=== PATIENT | male | born 1935 | race Hispanic/Latino ===

== ENCOUNTER 2018-01-22 09:47 | Inpatient (IN) | payer MEDICARE ==
--- NOTE | 2018-01-22 10:07 | ED PDOC ---
Arrival/HPI - General Chief Complaint: ENT Problem Time Seen by Provider: 01/22/18 10:05 Historian: Patient - History of Present Illness Narrative History of Present Illness (Text): 01/22/18 10:07 82 y/o male, pmh including distal abdominal aneuysm/htn/chf?/a.fibb on cardizem , only taking aspirin and no other anticoagulant, nkda, c/o chicken stuck on the middle of the throat x 20 hours. Pt. stated that he had solid piece of chicken yesterday, feeling stuck on the throat, hasn't been eating since because it will come back up, was feeling nauseous but no vomiting, no flank pain, no rash, no urinary symptoms, no palpitation, no chest pain or shortness of breath, no shortness of breath on exertion, no other medical or psychological complaints. Past Medical History - Provider Review Nursing Documentation Reviewed: Yes - Infectious Disease Hx of Infectious Diseases: None - Tetanus Immunization Tetanus Immunization: Up to Date - Cardiac Hx Cardiac Arrhythmia: Yes (23yrs ago) Hx CT: Yes Hx Hypertension: Yes - Neurological Hx Seizures: Yes (epilepsy) - Psychiatric Hx Depression: No Hx Emotional Abuse: No Hx Physical Abuse: No Hx Substance Use: No - Surgical History Hx Appendectomy: Yes - Anesthesia Hx Anesthesia Reactions: No Hx Malignant Hyperthermia: No - Suicidal Assessment Feels Threatened In Home Enviroment: No Family/Social History - Physician Review Nursing Documentation Reviewed: Yes Family/Social History: Unknown Family HX Smoking Status: Never Smoked Hx Alcohol Use: No Hx Substance Use: No Hx Substance Use Treatment: No Allergies/Home Meds Allergies/Adverse Reactions: Allergies No Known Allergies Allergy (Verified 11/12/13 11:17) Home Medications: Home Meds Medication Instructions Recorded Confirmed Aspirin [Aspir 81] 81 mg PO DAILY 11/12/13 11/12/13 Diltiazem Hydrochloride [Cardizem 360 mg PO DAILY 11/12/13 11/12/13 Cd] Metoprolol Succinate [Toprol XL] 25 mg PO BID 11/12/13 11/12/13 Phenytoin Sodium Extended 100 mg PO TID 11/12/13 11/12/13 [Dilantin] Review of Systems - Review of Systems Constitutional: absent: Fatigue, Fevers Eyes: absent: Vision Changes ENT: Other (throat discomfort). absent: Hearing Changes Respiratory: absent: SOB, Cough Cardiovascular: absent: Chest Pain Gastrointestinal: absent: Abdominal Pain, Nausea, Vomiting Skin: absent: Rash, Pruritis Neurological: absent: Headache Psychiatric: absent: Anxiety, Depression Physical Exam Vital Signs Reviewed: Yes Vital Signs Temp Pulse Resp BP Pulse Ox 01/22/18 09:48 98.4 F 104 H 16 116/69 95 Temperature: Afebrile Blood Pressure: Normal Pulse: Tachycardic Respiratory Rate: Normal Appearance: Positive for: Well-Appearing, Non-Toxic, Comfortable Pain Distress: None Mental Status: Positive for: Alert and Oriented X 3 - Systems Exam Head: Present: Atraumatic, Normocephalic Pupils: Present: PERRL Extroacular Muscles: Present: EOMI Conjunctiva: Present: Normal Mouth: Present: Moist Mucous Membranes Pharnyx: No: ERYTHEMA, EXUDATE, TONSILS ENLARGED, Muffled/Hoarse Voice, Soft Palate/Uvular Edema Neck: Present: Normal Range of Motion, Trachea Midline. No: MIDLINE TENDERNESS , Paraspinal Tenderness, Lymphadenopathy Respiratory/Chest: Present: Clear to Auscultation, Good Air Exchange. No: Respiratory Distress, Accessory Muscle Use Cardiovascular: Present: Regular Rate and Rhythm, Normal S1, S2. No: Murmurs Abdomen: No: Tenderness, Distention, Peritoneal Signs, Rebound, Guarding Back: Present: Normal Inspection Upper Extremity: Present: Normal Inspection. No: Cyanosis, Edema Lower Extremity: Present: Normal Inspection. No: Edema Neurological: Present: GCS=15, Speech Normal, Motor Func Grossly Intact, Gait Normal, Memory Normal Skin: Present: Warm, Dry, Normal Color. No: Rashes Psychiatric: Present: Alert, Oriented x 3, Normal Insight, Normal Concentration Medical Decision Making ED Course and Treatment: 01/22/18 10:22 -labs/coag -CT neck and chest pain -IVF/pepcid/zofran -Observe and reassess 01/22/18 11:14 -I received the call from Dr. Somers regarding about approx. big bolus noted on the lower esophogeal region, GI DR. Hinton paged for endoscopy. 01/22/18 11:33 -Labs are non-significant except BNP 7570 (asymptomatic) and BUN 25 (drinking fluid), Chronic thrombocytopenia 63 -CT Neck/Chest: There is a large food particle in the lower cervical esophagus. This measures 21 mm with by 16 mm AP x 49 mm in length. -EKG: A.fibb @ 100 BPM, no acute ST elevation or depression, no T wave inversion. -Pt. has no cardiopulmonary complaints, no shortness of breath, offer admission for the cardiac work up and observation after the procedure but the patient refused, discussed with Dr. Ching about the case and pt.'s decision. As per the patient and Dr. Ching, pt. will be admitted to the same day surgery and outpatient academic interventionist and pmd dr. fleming today for follow up today after the procedure. -I spoke to Dr. Hinton, GI, about this case/labs/radiology result, will come to evaluate the patient stat for endoscopy. 01/22/18 12:12 -Pt. evaluated by the GI Dr. Hinton's REGULATORY COMPLIANCE MANAGER Zully Phan, came to evaluate the patient and discussed with Dr. Hinton, they will order platete transfusion and perform endoscopy, admit to the endo/same day surgery. I offered the admission again for observation but he refused, risk and benefits explained, he stated that he has no cardiopulmonary complaints and only here for the food bolus which he still declined. Pt. will get discharge from the endo/same day surgery. -I discussed with Dr. Ching about the plan of care and he will put in the admission for same day surgery for endoscopy and agreed the patient can make his own choice - Lab Interpretations Lab Results: 01/22/18 10:30 01/22/18 10:30 Lab Results 01/22/18 12:00: Manual Plt Count 75 L* 01/22/18 10:30: WBC 6.8 D, RBC 3.51, Hgb 11.2 L, Hct 32.8 L, MCV 93.4, MCH 31.9 , MCHC 34.1, RDW 15.2 H, Plt Count 63 L, MPV 8.3, Gran % 82.6 H, Lymph % (Auto) 8.5 L, [place] % (Auto) 8.8 H, Eos % (Auto) 0.0 L, Baso % (Auto) 0.1, Gran # 5.65, Lymph # (Auto) 0.6 L, [place] # (Auto) 0.6, Eos # (Auto) 0.0, Baso # (Auto) 0.01 01/22/18 10:30: Sodium 148, Potassium 4.1, Chloride 108 H, Carbon Dioxide 27, Anion Gap 18, BUN 25 H, Creatinine 1.3, Est GFR ( Amer) > 60, Est GFR ( Non-Af Amer) 53, Random Glucose 128 H, Calcium 9.5, Total Bilirubin 0.5, AST 36 , ALT 31, Alkaline Phosphatase 83, NT-Pro-B Natriuret Pep 7570 H, Total Protein 6.7, Albumin 4.1, Globulin 2.5, Albumin/Globulin Ratio 1.6 01/22/18 10:30: PT 12.3, INR 1.07, APTT 27.0 I have reviewed the lab results: Yes - RAD Interpretation Radiology Orders: 01/22/18 10:14 NECK & CHEST W/O CONTRAST [CT] Stat CT OF THE NECK: PHARYNX: Nasopharynx: Unremarkable. Oropharnx: Unremarkable. Hypopharynx: There is a large food particle in the lower cervical esophagus. This measures 21 mm width by 16 mm AP x 49 mm in length. The finding can be seen on sagittal image 84 series 605 and axial image 54 series 3. LYMPH NODES: Unremarkable. VASCULATURE: Unremarkable. GLANDS: Unremarkable. CERVICAL SPINE: Unremarkable. CT OF THE CHEST: LUNGS: Chronic emphysematous changes MEDIASTINUM: Unremarkable thoracic aorta. No aneurysm or dissection. Moderate cardiomegaly Pulmonary arterial truck unremarkable. No vascular congestion. No lymphadenopathy. PLEURA: No pleural fluid. No pneumothorax. BONES: No fracture. No destructive lesion. IMPRESSION: There is a large food particle in the lower cervical esophagus. This measures 21 mm with by 16 mm AP x 49 mm in length. Farm Tractor Operator: Radiologist - EKG Interpretation Interpreted by ED Physician: Yes Type: 12 lead EKG - Medication Orders Current Medication Orders: Discontinued Medications Famotidine (Pepcid) 20 mg IVP STAT STA Stop: 01/22/18 10:16 Last Admin: 01/22/18 10:31 Dose: 20 mg IVP Administration Document 01/22/18 10:31 SRE (Rec: 01/22/18 10:31 SRE [id number]) Charges for Administration # of IVP Administrations 1 Glucagon (Glucagen Diagnostic Kit) 1 mg IV STAT STA Stop: 01/22/18 11:16 Last Admin: 01/22/18 11:40 Dose: 1 mg eMAR Start Stop Document 01/22/18 11:40 SRE (Rec: 01/22/18 11:41 SRE [id number]) Intravenous Solution Start Date 01/22/18 Start Time 11:41 End Date 01/22/18 End time 11:44 Total Infusion Time 3 Ondansetron HCl (Zofran Inj) 4 mg IVP STAT STA Stop: 01/22/18 10:16 Last Admin: 01/22/18 10:31 Dose: 4 mg IVP Administration Document 01/22/18 10:31 SRE (Rec: 01/22/18 10:31 SRE [id number]) Charges for Administration # of IVP Administrations 1 - PA / REGULATORY COMPLIANCE MANAGER / Resident Statement MD/DO has reviewed & agrees with the documentation as recorded. Disposition/Present on Arrival - Present on Arrival Any Indicators Present on Arrival: No History of DVT/PE: No History of Uncontrolled Diabetes: No Urinary Catheter: No History of Decub. Ulcer: No History Surgical Site Infection Following: None - Disposition Have Diagnosis and Disposition been Completed?: Yes Diagnosis: Dysphagia, Elevated brain natriuretic peptide (BNP) level, Thrombocytopenia Disposition: HOSPITALIZED Disposition Time: 11:05 Patient Plan: Admission (Same Day Surgery) Patient Problems: Current Active Problems Problem Status Onset Dysphagia Acute Elevated brain natriuretic peptide (BNP) level Acute Thrombocytopenia Acute Condition: STABLE Referrals: Tri Fleming MD [Primary Care Provider] - Follow up with primary Lesia Ledezma MD [Staff Provider] - Follow up with primary Bill Escobedo MD [Staff Provider] - Follow up with primary Forms: [employer] (Citizen Of [place])
[2018-01-22 10:41] LABS: BASO # 0.01 K/mm3 (0.0-2.0); BASO % 0.1 % (0.0-3.0); GRAN # 5.65 (1.4-6.5); GRAN % 82.6 % (50.0-68.0); HEMOGLOBIN 11.2 g/dL (14.0-18.0); LYMPH # 0.6 (1.2-3.4); LYMPH % 8.5 % (22.0-35.0); MEAN CELL VOLUME 93.4 fl (80.0-105.0); MEAN CORPUSCULAR HEMOGLOBIN 31.9 pg (25.0-35.0); MEAN CORPUSCULAR HGB CONC 34.1 g/dl (31.0-37.0); MEAN PLATELET VOLUME 8.3 fl (7.0-11.0); MONO # 0.6 (0.1-0.6); MONO % 8.8 % (1.0-6.0); RBC 3.51 10^6/uL (3.5-6.1); RED CELL DISTRIBUTION WIDTH 15.2 % (11.5-14.5); WHITE BLOOD COUNT 6.8 10^3/ul (4.5-11.0)
[2018-01-22 10:51] LABS: ALB/GLOB RATIO 1.6 (1.1-1.8); ALBUMIN 4.1 g/dL (3.0-4.8); ALT/SGPT 31 U/L (7-56); AST/SGOT 36 U/L (17-59); BLOOD UREA NITROGEN 25 mg/dL (7-21); CALCIUM 9.5 mg/dL (8.4-10.5); GFR AFRICAN-AMERICAN > 60; GFR NON-AFRICAN AMERICAN 53
[2018-01-22 10:54] LABS: INR 1.07 (0.93-1.08); PROTHROMBIN TIME 12.3 SECONDS (9.4-12.5)
[2018-01-22 10:59] LABS: B-TYPE NATRIURETIC PEPTIDE 7570 pg/mL (0-450)
[2018-01-22] MEDS ORDERED: Glucagon Recombinant 1 mg Inj IV STA (11:15)
--- NOTE | 2018-01-22 11:17 | CT ---
PROCEDURE: CT Neck, Chest, without contrast HISTORY: chicken stuck on the throat COMPARISON: None. TECHNIQUE: Contrast dose: Radiation dose: Total exam DLP = 435 mGy-cm. This CT exam was performed using one or more of the following dose reduction techniques: Automated exposure control, adjustment of the mA and/or kV according to patient size, and/or use of iterative reconstruction technique. FINDINGS: CT OF THE NECK: PHARYNX: Nasopharynx: Unremarkable. Oropharnx: Unremarkable. Hypopharynx: There is a large food particle in the lower cervical esophagus. This measures 21 mm width by 16 mm AP x 49 mm in length. The finding can be seen on sagittal image 84 series 605 and axial image 54 series 3. LYMPH NODES: Unremarkable. VASCULATURE: Unremarkable. GLANDS: Unremarkable. CERVICAL SPINE: Unremarkable. CT OF THE CHEST: LUNGS: Chronic emphysematous changes MEDIASTINUM: Unremarkable thoracic aorta. No aneurysm or dissection. Moderate cardiomegaly Pulmonary arterial truck unremarkable. No vascular congestion. No lymphadenopathy. PLEURA: No pleural fluid. No pneumothorax. BONES: No fracture. No destructive lesion. IMPRESSION: There is a large food particle in the lower cervical esophagus. This measures 21 mm with by 16 mm AP x 49 mm in length.
--- NOTE | 2018-01-22 13:48 | CP.PCM.CON ---
History of Present Illness - History of Present Illness History of Present Illness: Seen and examined in the emergency room, chart reviewed. Request for GI consult is for foreign body. HPI: This is an 82-year-old male with a past medical history of rectal cancer with colostomy, hypertension, abdominal aortic aneurysm came to the emergency room with complaints of consuming chicken yesterday at 2 PMand this being stuck in his throat. He attempted to extract this with his finger with no resolve. He is unable to tolerate any oral intake, he brings up sputum. No blood noted, he is holding an emesis basin with clear sputum. He denies any shortness of breath, chest pains or abdominal pain. He did report that he had a similar problem last year with a piece of meat which eventually went down. he denies any history of esophageal strictures . Never had upper endoscopy. no complaints of dyspepsia, weight loss or loss of appetite. On admission he had a CT scan of the necks and chest and he was found to have large food particle in the lower cervical esophagus measuring 21 mm width by 16 mm. In the lungs he is noted to have chronic emphysematous changes. Patient is noted to have low platelet count, patient endorses that this is chronic he has been evaluated by cosmetic manager in the past, patient concludes this to be secondary to his seizure medications Dilantin. No complaints of any bloody stools, he has a colostomy with brown stool output. He also had an EKG in the emergency room which is showing atrial fibrillation, the patient knows he has a cardiac arrhythmia and is on Cardizem and Toprol. Denies use of Coumadin only aspirin 81 mg which he took yesterday. He has not had anything to eat or drink since his complaint. Past medical history: Rectal cancer, abdominal aneurysm, hypertension, seizures Surgical history: Colostomy, denies having colonoscopy only flex sigmoidoscopy years ago, appendectomy Allergies: No known drug allergies Medications: Reviewed as per MAR Family history: Noncontributory at this time Social history: Denies smoking, EtOH or illicit drugs ROS: Systems reviewed with positive finding see HPI Past Patient History - Infectious Disease Hx of Infectious Diseases: None - Tetanus Immunizations Tetanus Immunization: Up to Date - Past Social History Smoking Status: Never Smoked - CARDIAC Hx Cardia Arrhythmia: Yes (23yrs ago) Hx Heart Attack: Yes Hx Hypertension: Yes - NEUROLOGICAL Hx Seizures: Yes (epilepsy) - PSYCHIATRIC Hx Depression: No Hx Emotional Abuse: No Hx Physical Abuse: No Hx Substance Use: No - SURGICAL HISTORY Hx Appendectomy: Yes - ANESTHESIA Hx Anesthesia Reactions: No Hx Malignant Hyperthermia: No Meds Allergies/Adverse Reactions: Allergies Allergy/AdvReac Type Severity Reaction Status Date / Time No Known Allergies Allergy Verified 11/12/13 11:17 Physical Exam - Constitutional Appears: No Acute Distress - Head Exam Head Exam: absent: NORMOCEPHALIC - Eye Exam Eye Exam: Normal appearance. absent: Scleral icterus - ENT Exam ENT Exam: Mucous Membranes Moist - Neck Exam Neck exam: Positive for: Normal Inspection - Respiratory Exam Respiratory Exam: Decreased Breath Sounds, Rhonchi, NORMAL BREATHING PATTERN. absent: Wheezes, Respiratory Distress - Cardiovascular Exam Cardiovascular Exam: +S1, +S2 - GI/Abdominal Exam GI & Abdominal Exam: Normal Bowel Sounds, Soft. absent: Distended, Guarding, Rebound, Tenderness Additional comments: positive colostomy, no blood noted - Extremities Exam Extremities exam: Negative for: calf tenderness, pedal edema - Neurological Exam Neurological exam: Alert, Oriented x3 - Skin Skin Exam: Dry, Warm Results - Vital Signs Recent Vital Signs: Last Vital Signs Temp 98.4 F 01/22/18 09:48 Pulse 104 H 01/22/18 09:48 Resp 16 01/22/18 09:48 BP 116/69 01/22/18 09:48 Pulse Ox 95 01/22/18 09:48 - Labs Result Diagrams: 01/22/18 10:30 01/22/18 10:30 Labs: Laboratory Results - last 24 hr 01/22/18 01/22/18 01/22/18 10:30 10:30 10:30 WBC 6.8 D RBC 3.51 Hgb 11.2 L Hct 32.8 L MCV 93.4 MCH 31.9 MCHC 34.1 RDW 15.2 H Plt Count 63 L MPV 8.3 Gran % 82.6 H Lymph % (Auto) 8.5 L [place] % (Auto) 8.8 H Eos % (Auto) 0.0 L Baso % (Auto) 0.1 Gran # 5.65 Lymph # (Auto) 0.6 L [place] # (Auto) 0.6 Eos # (Auto) 0.0 Baso # (Auto) 0.01 PT 12.3 INR 1.07 APTT 27.0 Sodium 148 Potassium 4.1 Chloride 108 H Carbon Dioxide 27 Anion Gap 18 BUN 25 H Creatinine 1.3 Est GFR ( Amer) > 60 Est GFR (Non-Af Amer) 53 Random Glucose 128 H Calcium 9.5 Total Bilirubin 0.5 AST 36 ALT 31 Alkaline Phosphatase 83 NT-Pro-B Natriuret Pep 7570 H Total Protein 6.7 Albumin 4.1 Globulin 2.5 Albumin/Globulin Ratio 1.6 Assessment & Plan - Assessment and Plan (Free Text) Assessment: Assessment: Foreign body, rule out esophageal stricture, dysmotility Thrombocytopenia Elevated BNP H/O Atrial fibrillation, on Toprol/Cardizem History of hypertension History of abdominal aneurysm History of rectal cancer with colostomy Plan: Nothing by mouth, continue IV fluids Request for stat manual platelet count Requests that type and screen for transfusion of 1 unit of platelets CARLITOS Plan for endoscopy today Discussed case/plan with JOSE Garcia in the ER. Patient refuse observation admission. Thank you for this consult and for last participate in your patient's care, further recommendations based upon clinical course. Seen and discussed with Dr. Hinton.
[2018-01-22] MEDS ORDERED: Propofol 10 mg/ml Inj (20 ML) ONE ×2 (18:26→20:25)
[2018-01-22] MEDS ORDERED: Etomidate 20 mg/10ml Inj IV ONE (18:27)
[2018-01-22] MEDS ORDERED: Succinylcholine 200 mg/10 ml Inj IV ONE (18:27)
[2018-01-22] MEDS: Propofol 10 mg/ml 1,000 MG/100 ML VIAL IV PRN (20:35)
--- NOTE | 2018-01-22 21:04 | CP.PCM.CON ---
<Taryn Vásquez - Last Filed: 01/22/18 23:54> History of Present Illness - History of Present Illness History of Present Illness: PGY-2 ICU consult note 82 yo male with a past medical history of rectal cancer with colostomy, hypertension, abdominal aortic aneurysm presented with complaints of chicken stuck on the middle of the throat. Patient was sedated at time of evaluation, history taken for previous notes. Patient stated that he was consuming chicken yesterday afternoon and felt that is was stuck in his throat. He attempted to extract this with his finger with no resolve. He is unable to tolerate any oral intake, he brings up sputum. No blood noted, he is holding an emesis basin with clear sputum. He reported a similar problem last year with a piece of meat which eventually resolved when the piece went down. Patient denied previous upper endoscopy. On admission he had a CT scan of the necks and chest and he was found to have large food particle in the lower cervical esophagus measuring 21 mm width by 16 mm. In the lungs he is noted to have chronic emphysematous changes. Patient was also noted to have low platelet count, patient endorsed that this is chronic he has been evaluated by metal roaster in the past, patient concludes this to be secondary to his seizure medications Dilantin. EKG in the emergency room showed atrial fibrillation, patient is on Cardizem and Toprol. 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 Patient was also found to have laryngeal edema and was not extubated. PMH: Rectal cancer, abdominal aneurysm, hypertension, seizures PSH: Colostomy, denies having colonoscopy only flex sigmoidoscopy years ago, appendectomy Allergies: No known drug allergies Medications: Reviewed as per MAR Social history: Denies smoking, alcohol use or illicit drugs Review of Systems - Review of Systems Systems not reviewed;Unavailable: Intubated Past Patient History - Infectious Disease Hx of Infectious Diseases: None - Tetanus Immunizations Tetanus Immunization: Up to Date - Past Social History Smoking Status: Never Smoked - CARDIAC Hx Cardia Arrhythmia: Yes (23yrs ago) Hx Heart Attack: Yes Hx Hypertension: Yes - NEUROLOGICAL Hx Seizures: Yes (epilepsy) - PSYCHIATRIC Hx Depression: No Hx Emotional Abuse: No Hx Physical Abuse: No Hx Substance Use: No - SURGICAL HISTORY Hx Appendectomy: Yes - ANESTHESIA Hx Anesthesia Reactions: No Hx Malignant Hyperthermia: No Meds Allergies/Adverse Reactions: Allergies Allergy/AdvReac Type Severity Reaction Status Date / Time No Known Allergies Allergy Verified 11/12/13 11:17 - Medications Medications: Current Medications Albuterol/Ipratropium (Duoneb 3 Mg/0.5 Mg (3 Ml) Ud) 3 ml IH [id number] KD Dexamethasone (Decadron Inj) 4 mg IVP Q6 KD Propofol (Diprivan) 1,000 mg in 100 mls @ 2.136 mls/hr IV .Q24H PRN; Protocol; 5 MCG/KG/MIN PRN Reason: TITRATE PER MD ORDER Physical Exam - Constitutional Appears: No Acute Distress - Head Exam Head Exam: ATRAUMATIC, NORMOCEPHALIC - Eye Exam Eye Exam: Normal appearance - ENT Exam Additional comments: intubated - Respiratory Exam Respiratory Exam: Clear to Auscultation Bilateral, NORMAL BREATHING PATTERN. absent: Rhonchi, Wheezes, Respiratory Distress - Cardiovascular Exam Cardiovascular Exam: REGULAR RHYTHM, +S1, +S2. absent: Tachycardia, Systolic Murmur - GI/Abdominal Exam GI & Abdominal Exam: Normal Bowel Sounds, Soft. absent: Distended, Firm, Tenderness Additional comments: h/o colostomy - Extremities Exam Extremities exam: Positive for: normal inspection. Negative for: pedal edema - Neurological Exam Neurological exam: Alert, Oriented x3 - Skin Skin Exam: Dry, Intact, Normal Color, Warm Results - Vital Signs Recent Vital Signs: Last Vital Signs Temp 98.4 F 01/22/18 09:48 Pulse 104 H 01/22/18 15:18 Resp 16 01/22/18 15:18 BP 137/76 01/22/18 15:18 Pulse Ox 94 L 01/22/18 15:18 - Labs Result Diagrams: 01/22/18 21:32 01/22/18 21:32 Assessment & Plan - Assessment and Plan (Free Text) Assessment: 82 yo male with a past medical history of rectal cancer with colostomy, hypertension, abdominal aortic aneurysm presented with foreign body in esophagus and zenker's diverticlum with laryngal edema. Plan: neuro -patient is sedated with propfol due to intubation - will hold off on breathing trials until ENT evaluation patient - history of seizures, well control - will hold PO meds ENT - laryngeal edema - patient is intubated for airway protection - started on decadron 4mg q6 - ENT consulted cardiology -hx hypertension, abdominal aortic aneurysm -maintain MAP>65 -continue to monitor BP - will hold po meds Respiratory - intubated on PRVC - maintain sao2>90% - will get ABG - elevated HOB GI - egd showed zenker's diverticulum with foreign body, food was removed - consult ENT - protonix for GI ppx - GI consulted heme/onc - thrombocytopenia, per patient history of low platelets - 1 unit platelets given - will repeat labs in AM <Wilian Gonzalez Q - Last Filed: 01/24/18 02:16> Meds - Medications Medications: Current Medications Albuterol/Ipratropium (Duoneb 3 Mg/0.5 Mg (3 Ml) Ud) 3 ml IH [id number] [facility] Last Admin: 01/23/18 20:30 Dose: Not Given Dexamethasone (Decadron Inj) 4 mg IVP Q6 [facility] Last Admin: 01/24/18 00:01 Dose: 4 mg Propofol (Diprivan) 1,000 mg in 100 mls @ 2.136 mls/hr IV .Q24H PRN; Protocol; 5 MCG/KG/MIN PRN Reason: TITRATE PER MD ORDER Last Titration: 01/23/18 14:58 Dose: Infused Sodium Chloride (Sodium Chloride 0.9%) 1,000 mls @ 100 mls/hr IV .Q10H [facility] Last Admin: 01/23/18 21:41 Dose: 100 mls/hr Pantoprazole Sodium (Protonix Inj) 40 mg IVP DAILY [facility] Last Admin: 01/23/18 09:09 Dose: 40 mg Results - Vital Signs Recent Vital Signs: Last Vital Signs Temp 99.3 F 01/24/18 00:00 Pulse 98 H 01/24/18 01:05 Resp 28 H 01/24/18 01:05 BP 123/78 01/24/18 01:00 Pulse Ox 94 L 01/24/18 01:05 - Labs Result Diagrams: 01/23/18 05:30 01/23/18 05:30 Labs: Laboratory Results - last 24 hr 01/23/18 01/23/18 01/23/18 05:30 05:30 06:00 WBC 3.1 L RBC 3.00 L Hgb 9.4 L Hct 28.5 L MCV 95.0 MCH 31.3 MCHC 33.0 RDW 15.1 H Plt Count 75 L MPV 8.7 Gran % 82.4 H Lymph % (Auto) 10.4 L [place] % (Auto) 7.2 H Eos % (Auto) 0.0 L Baso % (Auto) 0.0 Gran # 2.53 Lymph # (Auto) 0.3 L [place] # (Auto) 0.2 Eos # (Auto) 0.0 Baso # (Auto) 0.00 pCO2 47 H pO2 144.0 H HCO3 25.4 ABG pH 7.34 L ABG Total CO2 26.8 ABG O2 Saturation 99.5 H ABG O2 Content 15.3 ABG Base Excess -0.7 ABG Hemoglobin 11.1 L ABG Carboxyhemoglobin 2.0 H POC ABG HHb (Measured) 0.5 ABG Methemoglobin 1.0 ABG O2 Capacity 15.4 L Hgb O2 Saturation 96.5 FiO2 40.0 Sodium 147 Potassium 4.2 Chloride 111 H Carbon Dioxide 25 Anion Gap 16 BUN 25 H Creatinine 1.1 Est GFR ( Amer) > 60 Est GFR (Non-Af Amer) > 60 Random Glucose 115 H Calcium 8.4 Total Bilirubin 0.3 AST 38 ALT 26 Alkaline Phosphatase 66 Total Protein 5.4 L Albumin 3.4 Globulin 2.1 Albumin/Globulin Ratio 1.6 Attending/Attestation - Attestation I have personally seen and examined this patient.: Yes I have fully participated in the care of the patient.: Yes I have reviewed all pertinent clinical information: Yes Notes (Text): 01/24/18 02:16 I agree with the above mentioned note and exam case discussed in depth with Dr. Berman (anesthesiologist) labs and images reviewed total time of care: 40 minutes
[2018-01-22 21:35] LABS: BASO # 0.01 K/mm3 (0.0-2.0); BASO % 0.3 % (0.0-3.0); EOS % 0.9 % (1.5-5.0); GRAN # 2.68 (1.4-6.5); GRAN % 79.5 % (50.0-68.0); HEMOGLOBIN 9.3 g/dL (14.0-18.0); LYMPH # 0.4 (1.2-3.4); LYMPH % 12.5 % (22.0-35.0); MEAN CELL VOLUME 95.2 fl (80.0-105.0); MEAN CORPUSCULAR HGB CONC 33.6 g/dl (31.0-37.0); MEAN PLATELET VOLUME 8.7 fl (7.0-11.0); MONO # 0.2 (0.1-0.6); MONO % 6.8 % (1.0-6.0); RBC 2.91 10^6/uL (3.5-6.1); RED CELL DISTRIBUTION WIDTH 15.4 % (11.5-14.5); WHITE BLOOD COUNT 3.4 10^3/ul (4.5-11.0)
[2018-01-22 21:56] LABS: ALB/GLOB RATIO 1.4 (1.1-1.8); ALBUMIN 3.2 g/dL (3.0-4.8); ALT/SGPT 28 U/L (7-56); AST/SGOT 34 U/L (17-59); BLOOD UREA NITROGEN 26 mg/dL (7-21); GFR AFRICAN-AMERICAN > 60; GFR NON-AFRICAN AMERICAN 53
[2018-01-22 23:36] VITALS: BMI 23.6
[2018-01-23] MEDS: Albuterol-Ipratrop 3 mg / 0.5 (3 ml) UD IH SCH ×5 (00:10→20:30)
[2018-01-23 00:24] LABS: ARTERIAL BLOOD GAS O2 SAT 99.3 % (95-98); ARTERIAL BLOOD GAS PCO2 43 mm/Hg (35-45); ARTERIAL BLOOD GAS PH 7.39 (7.35-7.45); ARTERIAL BLOOD GAS TCO2 27.3 mmol.L (22-28)
[2018-01-23] MEDS: Dexamethasone 4 mg/1 ml IVP SCH ×4 (00:40→17:06)
[2018-01-23] MEDS: Sodium Chloride 0.9% 1,000 ML IV SCH ×3 (02:00→21:41)
[2018-01-23 06:11] LABS: GRAN # 2.53 (1.4-6.5); GRAN % 82.4 % (50.0-68.0); HEMOGLOBIN 9.4 g/dL (14.0-18.0); LYMPH # 0.3 (1.2-3.4); LYMPH % 10.4 % (22.0-35.0); MEAN CORPUSCULAR HEMOGLOBIN 31.3 pg (25.0-35.0); MEAN PLATELET VOLUME 8.7 fl (7.0-11.0); MONO # 0.2 (0.1-0.6); MONO % 7.2 % (1.0-6.0); RED CELL DISTRIBUTION WIDTH 15.1 % (11.5-14.5); WHITE BLOOD COUNT 3.1 10^3/ul (4.5-11.0)
[2018-01-23 06:13] LABS: ALB/GLOB RATIO 1.6 (1.1-1.8); ALBUMIN 3.4 g/dL (3.0-4.8); ALT/SGPT 26 U/L (7-56); AST/SGOT 38 U/L (17-59); BLOOD UREA NITROGEN 25 mg/dL (7-21); CALCIUM 8.4 mg/dL (8.4-10.5); GFR AFRICAN-AMERICAN > 60; GFR NON-AFRICAN AMERICAN > 60
[2018-01-23 06:35] LABS: ARTERIAL BLOOD GAS HCO3 25.4 mmol/L (21-28); ARTERIAL BLOOD GAS HEMOGLOBIN 11.1 g/dL (11.7-17.4); ARTERIAL BLOOD GAS O2 CAPACITY 15.4 mL/dl (16-24); ARTERIAL BLOOD GAS O2 CONTENT 15.3 ML/dl (15-23); ARTERIAL BLOOD GAS O2 SAT 99.5 % (95-98); ARTERIAL BLOOD GAS PCO2 47 mm/Hg (35-45); ARTERIAL BLOOD GAS PH 7.34 (7.35-7.45); ARTERIAL BLOOD GAS TCO2 26.8 mmol.L (22-28)
[2018-01-23] MEDS: Propofol 10 mg/ml 1,000 MG/100 ML VIAL IV PRN (09:07)
--- NOTE | 2018-01-23 09:20 | RAD ---
HISTORY: intubation COMPARISON: 01/22/2018 FINDINGS: LUNGS: No active pulmonary disease. PLEURA: Possible left pleural effusion oblique positioning obscures left costophrenic angle with left heart border. ET tube unchanged. CARDIOVASCULAR: Cardiomegaly. Mild congestive change. OSSEOUS STRUCTURES: No significant abnormalities. VISUALIZED UPPER ABDOMEN: Normal. OTHER FINDINGS: None. IMPRESSION: Cardiomegaly and mild congestive change. ET tube. Possible left pleural effusion.
--- NOTE | 2018-01-23 09:26 | CARD ---
APPROVED REPORT EKG Measurement Heart [id number] <Conclusion> Atrial fibrillation ST-T wave abnormality, consider lateral ischemia LVH
--- NOTE | 2018-01-23 09:57 | RAD ---
HISTORY: intubation COMPARISON: 11/12/2013 FINDINGS: LUNGS: No active pulmonary disease. PLEURA: No significant pleural effusion identified, no pneumothorax apparent. CARDIOVASCULAR: Mild cardiomegaly. ET tube approximately 2.2 cm above tracheal raul. OSSEOUS STRUCTURES: No significant abnormalities. VISUALIZED UPPER ABDOMEN: Normal. OTHER FINDINGS: None. IMPRESSION: No active disease. New endotracheal tube tip approximately 2.2 cm above the tracheal raul.
[2018-01-23] MEDS ORDERED: ceFAZolin 1 gm in NS 1 GM/100 ML BAG IVPB STA (10:48)
--- NOTE | 2018-01-23 10:49 | CP.PCM.CON ---
History of Present Illness - History of Present Illness History of Present Illness: ENT HPI: This is an 82-year-old male with a past medical history of rectal cancer with colostomy, hypertension, abdominal aortic aneurysm came to the emergency room with complaints of consuming chicken yesterday at 2 PMand this being stuck in his throat. He attempted to extract this with his finger with no resolve. He is unable to tolerate any oral intake, he brings up sputum. No blood noted, he is holding an emesis basin with clear sputum. He denies any shortness of breath, chest pains or abdominal pain. He did report that he had a similar problem last year with a piece of meat which eventually went down. he denies any history of esophageal strictures . Never had upper endoscopy. no complaints of dyspepsia, weight loss or loss of appetite. On admission he had a CT scan of the necks and chest and he was found to have large food particle in the lower cervical esophagus measuring 2x5cm. In the lungs he is noted to have chronic emphysematous changes. Patient is noted to have low platelet count, patient endorses that this is chronic he has been evaluated by healthcare specialist in the past, patient concludes this to be secondary to his seizure medications Dilantin. No complaints of any bloody stools, he has a colostomy with brown stool output. He also had an EKG in the emergency room which is showing atrial fibrillation, the patient knows he has a cardiac arrhythmia and is on Cardizem and Toprol. Denies use of Coumadin only aspirin 81 mg which he took yesterday. He has not had anything to eat or drink since his complaint. Pt underwent extraction of the food particles in cervical esophagus. 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 Most bizoars removed. During EGD, found to have laryngeal edema, pt was intubated. Past medical history: Rectal cancer, abdominal aneurysm, hypertension, seizures Surgical history: Colostomy, denies having colonoscopy only flex sigmoidoscopy years ago, appendectomy Allergies: No known drug allergies Medications: Reviewed as per MAR Family history: Noncontributory at this time Social history: Denies smoking, EtOH or illicit drugs Review of Systems - Review of Systems Review of Systems: See HPI Past Patient History - Infectious Disease Hx of Infectious Diseases: None - Tetanus Immunizations Tetanus Immunization: Up to Date - Past Social History Smoking Status: Never Smoked - CARDIAC Hx Cardia Arrhythmia: Yes (23yrs ago) Hx Heart Attack: Yes Hx Hypertension: Yes - PULMONARY Hx Respiratory Disorders: No - NEUROLOGICAL Hx Seizures: Yes (epilepsy) - HEENT Hx HEENT Problems: No Other/Comment: uses eyeglasses,use dentures - RENAL Hx Chronic Kidney Disease: No - ENDOCRINE/METABOLIC Hx Endocrine Disorders: No - HEMATOLOGICAL/ONCOLOGICAL Hx Blood Disorders: No Other/Comment: 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 - INTEGUMENTARY Hx Dermatological Problems: No - MUSCULOSKELETAL/RHEUMATOLOGICAL Hx Musculoskeletal Disorders: No Hx Falls: No - GASTROINTESTINAL Hx Colostomy: Yes Other/Comment: rectal cancer - GENITOURINARY/GYNECOLOGICAL Hx Genitourinary Disorders: No - PSYCHIATRIC Hx Depression: No Hx Emotional Abuse: No Hx Physical Abuse: No Hx Substance Use: No - SURGICAL HISTORY Hx Appendectomy: Yes - ANESTHESIA Hx Anesthesia Reactions: No Hx Malignant Hyperthermia: No Meds Allergies/Adverse Reactions: Allergies Allergy/AdvReac Type Severity Reaction Status Date / Time No Known Allergies Allergy Verified 11/12/13 11:17 - Medications Medications: Current Medications Albuterol/Ipratropium (Duoneb 3 Mg/0.5 Mg (3 Ml) Ud) 3 ml IH [id number] Cefazolin Sodium (Ancef) 1 gm IVPB STAT STA PRN Reason: Protocol Stop: 01/23/18 10:46 Dexamethasone (Decadron Inj) 4 mg IVP Q6 [facility] Last Admin: 01/23/18 05:33 Dose: 4 mg Propofol (Diprivan) 1,000 mg in 100 mls @ 2.136 mls/hr IV .Q24H PRN; Protocol; 5 MCG/KG/MIN PRN Reason: TITRATE PER MD ORDER Last Admin: 01/23/18 09:07 Dose: 35.1 mcg/kg/min, 14.998 mls/hr Sodium Chloride (Sodium Chloride 0.9%) 1,000 mls @ 100 mls/hr IV .Q10H [facility] Last Admin: 01/23/18 09:57 Dose: 100 mls/hr Pantoprazole Sodium (Protonix Inj) 40 mg IVP DAILY [facility] Last Admin: 01/23/18 09:09 Dose: 40 mg Physical Exam - Constitutional Appears: No Acute Distress - Head Exam Head Exam: ATRAUMATIC, NORMAL INSPECTION, NORMOCEPHALIC - Eye Exam Eye Exam: EOMI, Normal appearance, PERRL Pupil Exam: NORMAL ACCOMODATION, PERRL - ENT Exam ENT Exam: Mucous Membranes Moist Additional comments: Intubated - Neck Exam Neck exam: Positive for: Normal Inspection - Respiratory Exam Respiratory Exam: Clear to Auscultation Bilateral, NORMAL BREATHING PATTERN Additional comments: INtubated - Cardiovascular Exam Cardiovascular Exam: REGULAR RHYTHM - GI/Abdominal Exam GI & Abdominal Exam: Normal Bowel Sounds, Soft. absent: Distended, Tenderness Additional comments: Stoma - Extremities Exam Extremities exam: Positive for: normal inspection - Back Exam Back exam: NORMAL INSPECTION - Neurological Exam Neurological exam: Alert, CN II-XII Intact, Oriented x3, Reflexes Normal - Psychiatric Exam Psychiatric exam: Normal Affect, Normal Mood - Skin Skin Exam: Dry, Intact, Normal Color, Warm Results - Vital Signs Recent Vital Signs: Last Vital Signs Temp 98 F 01/23/18 04:00 Pulse 106 H 01/23/18 09:30 Resp 15 01/23/18 04:00 BP 154/92 H 01/23/18 09:00 Pulse Ox 100 01/23/18 09:30 - Labs Result Diagrams: 01/23/18 05:30 01/23/18 05:30 Labs: Laboratory Results - last 24 hr 01/22/18 01/22/18 01/23/18 21:32 21:32 00:15 WBC 3.4 L D RBC 2.91 L Hgb 9.3 L Hct 27.7 L MCV 95.2 MCH 32.0 MCHC 33.6 RDW 15.4 H Plt Count 73 L MPV 8.7 Gran % 79.5 H Lymph % (Auto) 12.5 L [place] % (Auto) 6.8 H Eos % (Auto) 0.9 L Baso % (Auto) 0.3 Gran # 2.68 Lymph # (Auto) 0.4 L [place] # (Auto) 0.2 Eos # (Auto) 0.0 Baso # (Auto) 0.01 pCO2 43 pO2 171.0 H HCO3 26.0 ABG pH 7.39 ABG Total CO2 27.3 ABG O2 Saturation 99.3 H ABG O2 Content ABG Base Excess 0.8 ABG Hemoglobin ABG Carboxyhemoglobin POC ABG HHb (Measured) ABG Methemoglobin ABG O2 Capacity ABG Potassium 3.9 Hgb O2 Saturation Glucose 109 Lactate 0.6 L FiO2 50.0 Sodium 146 147.0 Potassium 3.9 Chloride 110 H 116.0 H Carbon Dioxide 27 Anion Gap 13 BUN 26 H Creatinine 1.3 Est GFR ( Amer) > 60 Est GFR (Non-Af Amer) 53 Random Glucose 96 Calcium 9.0 Total Bilirubin 0.5 AST 34 ALT 28 Alkaline Phosphatase 76 Total Protein 5.5 L Albumin 3.2 Globulin 2.3 Albumin/Globulin Ratio 1.4 Arterial Blood Potassium 3.9 01/23/18 01/23/18 01/23/18 05:30 05:30 06:00 WBC 3.1 L RBC 3.00 L Hgb 9.4 L Hct 28.5 L MCV 95.0 MCH 31.3 MCHC 33.0 RDW 15.1 H Plt Count 75 L MPV 8.7 Gran % 82.4 H Lymph % (Auto) 10.4 L [place] % (Auto) 7.2 H Eos % (Auto) 0.0 L Baso % (Auto) 0.0 Gran # 2.53 Lymph # (Auto) 0.3 L [place] # (Auto) 0.2 Eos # (Auto) 0.0 Baso # (Auto) 0.00 pCO2 47 H pO2 144.0 H HCO3 25.4 ABG pH 7.34 L ABG Total CO2 26.8 ABG O2 Saturation 99.5 H ABG O2 Content 15.3 ABG Base Excess -0.7 ABG Hemoglobin 11.1 L ABG Carboxyhemoglobin 2.0 H POC ABG HHb (Measured) 0.5 ABG Methemoglobin 1.0 ABG O2 Capacity 15.4 L ABG Potassium Hgb O2 Saturation 96.5 Glucose Lactate FiO2 40.0 Sodium 147 Potassium 4.2 Chloride 111 H Carbon Dioxide 25 Anion Gap 16 BUN 25 H Creatinine 1.1 Est GFR ( Amer) > 60 Est GFR (Non-Af Amer) > 60 Random Glucose 115 H Calcium 8.4 Total Bilirubin 0.3 AST 38 ALT 26 Alkaline Phosphatase 66 Total Protein 5.4 L Albumin 3.4 Globulin 2.1 Albumin/Globulin Ratio 1.6 Arterial Blood Potassium Assessment & Plan - Assessment and Plan (Free Text) Assessment: Laryngeal edema s/p endotracheal intubation , EGD food extraction from Zenkers diverticulum -Bedside Laryngoscope this afternoon -ABX -Decadron DW Dr. De La Garza
--- NOTE | 2018-01-23 11:13 | CP.CCUPN ---
<Ashwin Foy - Last Filed: 01/23/18 11:05> CCU Subjective - Physician Review Subjective (Free Text): Critical care progress note: Pt seen and examined at bedside. No acute events overnight. Currently intubated but alert and not on any sedation. 12 Point ROS limited due to sedation CCU Objective - Vital Signs / Intake & Output Vital Signs (Last 4 hours): Vital Signs Pulse BP Pulse Ox 01/23/18 09:30 106 H 100 01/23/18 09:20 102 H 100 01/23/18 09:10 113 H 100 01/23/18 09:00 108 H 154/92 H 100 01/23/18 08:50 98 H 100 01/23/18 08:40 102 H 100 01/23/18 08:30 93 H 100 01/23/18 08:20 88 99 01/23/18 08:10 91 H 98 01/23/18 08:00 96 H 143/90 100 01/23/18 07:50 97 H 100 01/23/18 07:40 97 H 100 01/23/18 07:30 97 H 100 01/23/18 07:20 97 H 100 01/23/18 07:10 83 100 Intake and Output (Last 8hrs): Intake & Output 01/22/18 01/23/18 01/23/18 22:59 06:59 14:59 Intake Total 1287 90.2 Output Total 550 Balance 737 90.2 Weight 155 lb 12.8 oz Intake: IV 1287 90.2 Left Hand 1245 Output: Urine 550 Urethral (Mcintosh) 550 Other: Voiding Method Indwelling Catheter - Physical Exam Head: Positive for: Atraumatic, Normocephalic Pupils: Positive for: PERRL Extroacular Muscles: Positive for: EOMI Conjunctiva: Positive for: Normal Mouth: Positive for: Moist Mucous Membranes Pharnyx: Negative for: ERYTHEMA, EXUDATE, TONSILS ENLARGED, Muffled/Hoarse Voice , Soft Palate/Uvular Edema Neck: Positive for: Normal Range of Motion, Trachea Midline. Negative for: MIDLINE TENDERNESS, Paraspinal Tenderness, Lymphadenopathy Respiratory/Chest: Positive for: Clear to Auscultation, Good Air Exchange. Negative for: Respiratory Distress, Accessory Muscle Use Cardiovascular: Positive for: Regular Rate and Rhythm, Normal S1, S2. Negative for: Murmurs Abdomen: Negative for: Tenderness, Distention, Peritoneal Signs, Rebound, Guarding Back: Positive for: Normal Inspection Upper Extremity: Positive for: Normal Inspection. Negative for: Cyanosis, Edema Lower Extremity: Positive for: Normal Inspection. Negative for: Edema Neurological: Positive for: GCS=15, Speech Normal, Motor Func Grossly Intact, Gait Normal, Memory Normal Skin: Positive for: Warm, Dry, Normal Color. Negative for: Rashes Psychiatric: Positive for: Alert, Oriented x 3, Normal Insight, Normal Concentration - Medications Active Medications: Active Medications Generic Name Dose Route Start Last Admin Trade Name Freq PRN Reason Stop Dose Admin Albuterol/Ipratropium 3 ml 01/23/18 14:00 Duoneb 3 Mg/0.5 Mg (3 Ml) Ud IH [id number] KD Dexamethasone 4 mg 01/23/18 00:00 01/23/18 05:33 Decadron Inj IVP 4 mg Q6 KD Administration Propofol 1,000 mg in 100 mls @ 2.136 mls/hr 01/22/18 20:39 01/23/18 10:58 Diprivan IV 40 mcg/kg/min .Q24H PRN 17.091 mls/hr TITRATE PER MD ORDER Titration Protocol 5 MCG/KG/MIN Sodium Chloride 1,000 mls @ 100 mls/hr 01/23/18 02:15 01/23/18 09:57 Sodium Chloride 0.9% IV 100 mls/hr .Q10H KD Administration Cefazolin Sodium 1 gm in 100 mls @ 100 mls/hr 01/23/18 10:48 01/23/18 10:55 Ancef 1gm In Ns IVPB 01/23/18 11:47 100 mls/hr STAT STA Administration Pantoprazole Sodium 40 mg 01/23/18 10:00 01/23/18 09:09 Protonix Inj IVP 40 mg DAILY KD Administration - Patient Studies Lab Studies: Lab Studies 01/23/18 01/23/18 01/23/18 Range/Units 06:00 05:30 05:30 WBC 3.1 L (4.5-11.0) 10^3/ul RBC 3.00 L (3.5-6.1) 10^6/uL Hgb 9.4 L (14.0-18.0) g/dL Hct 28.5 L (42.0-52.0) % MCV 95.0 (80.0-105.0) fl MCH 31.3 (25.0-35.0) pg MCHC 33.0 (31.0-37.0) g/dl RDW 15.1 H (11.5-14.5) % Plt Count 75 L (120.0-450.0) 10^3/uL MPV 8.7 (7.0-11.0) fl Gran % 82.4 H (50.0-68.0) % Lymph % (Auto) 10.4 L (22.0-35.0) % [place] % (Auto) 7.2 H (1.0-6.0) % Eos % (Auto) 0.0 L (1.5-5.0) % Baso % (Auto) 0.0 (0.0-3.0) % Gran # 2.53 (1.4-6.5) Lymph # (Auto) 0.3 L (1.2-3.4) [place] # (Auto) 0.2 (0.1-0.6) Eos # (Auto) 0.0 (0.0-0.7) Baso # (Auto) 0.00 (0.0-2.0) K/mm3 pCO2 47 H (35-45) mm/Hg pO2 144.0 H (80-100) mm/Hg HCO3 25.4 (21-28) mmol/L ABG pH 7.34 L (7.35-7.45) ABG Total CO2 26.8 (22-28) mmol.L ABG O2 Saturation 99.5 H (95-98) % ABG O2 Content 15.3 (15-23) ML/dl ABG Base Excess -0.7 (-2.0-3.0) mmol/L ABG Hemoglobin 11.1 L (11.7-17.4) g/dL ABG Carboxyhemoglobin 2.0 H (0.5-1.5) % POC ABG HHb (Measured) 0.5 (0-5) % ABG Methemoglobin 1.0 (0.0-3.0) % ABG O2 Capacity 15.4 L (16-24) mL/dl ABG Potassium (3.6-5.2) mmol/L Hgb O2 Saturation 96.5 (95.0-98.0) % Glucose (75-110) mg/dl Lactate (0.7-2.1) mmol/L FiO2 40.0 % Sodium 147 (132-148) mmol/L Potassium 4.2 (3.6-5.0) mmol/L Chloride 111 H (98-107) mmol/L Carbon Dioxide 25 (21-33) mmol/L Anion Gap 16 (10-20) BUN 25 H (7-21) mg/dL Creatinine 1.1 (0.8-1.5) mg/dl Est GFR ( Amer) > 60 Est GFR (Non-Af Amer) > 60 Random Glucose 115 H (70-110) mg/dL Calcium 8.4 (8.4-10.5) mg/dL Total Bilirubin 0.3 (0.2-1.3) mg/dL AST 38 (17-59) U/L ALT 26 (7-56) U/L Alkaline Phosphatase 66 (38-126) U/L Total Protein 5.4 L (5.8-8.3) g/dL Albumin 3.4 (3.0-4.8) g/dL Globulin 2.1 gm/dL Albumin/Globulin Ratio 1.6 (1.1-1.8) Arterial Blood Potassium (3.6-5.2) mmol/L 01/23/18 01/22/18 01/22/18 Range/Units 00:15 21:32 21:32 WBC 3.4 L D (4.5-11.0) 10^3/ul RBC 2.91 L (3.5-6.1) 10^6/uL Hgb 9.3 L (14.0-18.0) g/dL Hct 27.7 L (42.0-52.0) % MCV 95.2 (80.0-105.0) fl MCH 32.0 (25.0-35.0) pg MCHC 33.6 (31.0-37.0) g/dl RDW 15.4 H (11.5-14.5) % Plt Count 73 L (120.0-450.0) 10^3/uL MPV 8.7 (7.0-11.0) fl Gran % 79.5 H (50.0-68.0) % Lymph % (Auto) 12.5 L (22.0-35.0) % [place] % (Auto) 6.8 H (1.0-6.0) % Eos % (Auto) 0.9 L (1.5-5.0) % Baso % (Auto) 0.3 (0.0-3.0) % Gran # 2.68 (1.4-6.5) Lymph # (Auto) 0.4 L (1.2-3.4) [place] # (Auto) 0.2 (0.1-0.6) Eos # (Auto) 0.0 (0.0-0.7) Baso # (Auto) 0.01 (0.0-2.0) K/mm3 pCO2 43 (35-45) mm/Hg pO2 171.0 H (80-100) mm/Hg HCO3 26.0 (21-28) mmol/L ABG pH 7.39 (7.35-7.45) ABG Total CO2 27.3 (22-28) mmol.L ABG O2 Saturation 99.3 H (95-98) % ABG O2 Content (15-23) ML/dl ABG Base Excess 0.8 (-2.0-3.0) mmol/L ABG Hemoglobin (11.7-17.4) g/dL ABG Carboxyhemoglobin (0.5-1.5) % POC ABG HHb (Measured) (0-5) % ABG Methemoglobin (0.0-3.0) % ABG O2 Capacity (16-24) mL/dl ABG Potassium 3.9 (3.6-5.2) mmol/L Hgb O2 Saturation (95.0-98.0) % Glucose 109 (75-110) mg/dl Lactate 0.6 L (0.7-2.1) mmol/L FiO2 50.0 % Sodium 147.0 146 (132-148) mmol/L Potassium 3.9 (3.6-5.0) mmol/L Chloride 116.0 H 110 H (98-107) mmol/L Carbon Dioxide 27 (21-33) mmol/L Anion Gap 13 (10-20) BUN 26 H (7-21) mg/dL Creatinine 1.3 (0.8-1.5) mg/dl Est GFR ( Amer) > 60 Est GFR (Non-Af Amer) 53 Random Glucose 96 (70-110) mg/dL Calcium 9.0 (8.4-10.5) mg/dL Total Bilirubin 0.5 (0.2-1.3) mg/dL AST 34 (17-59) U/L ALT 28 (7-56) U/L Alkaline Phosphatase 76 (38-126) U/L Total Protein 5.5 L (5.8-8.3) g/dL Albumin 3.2 (3.0-4.8) g/dL Globulin 2.3 gm/dL Albumin/Globulin Ratio 1.4 (1.1-1.8) Arterial Blood Potassium 3.9 (3.6-5.2) mmol/L Laboratory Results - last 24 hr 01/22/18 01/22/18 01/23/18 21:32 21:32 00:15 WBC 3.4 L D RBC 2.91 L Hgb 9.3 L Hct 27.7 L MCV 95.2 MCH 32.0 MCHC 33.6 RDW 15.4 H Plt Count 73 L MPV 8.7 Gran % 79.5 H Lymph % (Auto) 12.5 L [place] % (Auto) 6.8 H Eos % (Auto) 0.9 L Baso % (Auto) 0.3 Gran # 2.68 Lymph # (Auto) 0.4 L [place] # (Auto) 0.2 Eos # (Auto) 0.0 Baso # (Auto) 0.01 pCO2 43 pO2 171.0 H HCO3 26.0 ABG pH 7.39 ABG Total CO2 27.3 ABG O2 Saturation 99.3 H ABG O2 Content ABG Base Excess 0.8 ABG Hemoglobin ABG Carboxyhemoglobin POC ABG HHb (Measured) ABG Methemoglobin ABG O2 Capacity ABG Potassium 3.9 Hgb O2 Saturation Glucose 109 Lactate 0.6 L FiO2 50.0 Sodium 146 147.0 Potassium 3.9 Chloride 110 H 116.0 H Carbon Dioxide 27 Anion Gap 13 BUN 26 H Creatinine 1.3 Est GFR ( Amer) > 60 Est GFR (Non-Af Amer) 53 Random Glucose 96 Calcium 9.0 Total Bilirubin 0.5 AST 34 ALT 28 Alkaline Phosphatase 76 Total Protein 5.5 L Albumin 3.2 Globulin 2.3 Albumin/Globulin Ratio 1.4 Arterial Blood Potassium 3.9 01/23/18 01/23/18 01/23/18 05:30 05:30 06:00 WBC 3.1 L RBC 3.00 L Hgb 9.4 L Hct 28.5 L MCV 95.0 MCH 31.3 MCHC 33.0 RDW 15.1 H Plt Count 75 L MPV 8.7 Gran % 82.4 H Lymph % (Auto) 10.4 L [place] % (Auto) 7.2 H Eos % (Auto) 0.0 L Baso % (Auto) 0.0 Gran # 2.53 Lymph # (Auto) 0.3 L [place] # (Auto) 0.2 Eos # (Auto) 0.0 Baso # (Auto) 0.00 pCO2 47 H pO2 144.0 H HCO3 25.4 ABG pH 7.34 L ABG Total CO2 26.8 ABG O2 Saturation 99.5 H ABG O2 Content 15.3 ABG Base Excess -0.7 ABG Hemoglobin 11.1 L ABG Carboxyhemoglobin 2.0 H POC ABG HHb (Measured) 0.5 ABG Methemoglobin 1.0 ABG O2 Capacity 15.4 L ABG Potassium Hgb O2 Saturation 96.5 Glucose Lactate FiO2 40.0 Sodium 147 Potassium 4.2 Chloride 111 H Carbon Dioxide 25 Anion Gap 16 BUN 25 H Creatinine 1.1 Est GFR ( Amer) > 60 Est GFR (Non-Af Amer) > 60 Random Glucose 115 H Calcium 8.4 Total Bilirubin 0.3 AST 38 ALT 26 Alkaline Phosphatase 66 Total Protein 5.4 L Albumin 3.4 Globulin 2.1 Albumin/Globulin Ratio 1.6 Arterial Blood Potassium Review of Systems - Review of Systems All systems: reviewed and no additional remarkable complaints except (HPI) Assessment/Plan - Assessment and Plan (Free Text) Assessment: 82 yo male with a past medical history of rectal cancer with colostomy, hypertension, abdominal aortic aneurysm presented with foreign body in esophagus found to have zenker's diverticlum, pt subsequently intubated 2/2 laryngal edema. Neuro - Currently off of sedation - history of seizures, well control - will hold PO meds - elevated HOB 35' - maintain normothermia ENT - laryngeal edema - patient is intubated for airway protection - started on decadron 4mg q6 - ENT consulted Respiratory - intubated on PRVC - maintain sao2>90% - pulmonary toilet - Protective lung ventilation strategy - Will wean following ENT eval CV -hemodynamically stable -maintain MAP>65 -will hold po meds GI - egd showed zenker's diverticulum with foreign body, food was removed - consult ENT - protonix for GI ppx - GI consulted for recs Heme - monitor H/H - thrombocytopenia, per patient history of low platelets - s/p 1 unit platelets given Endo: - Maintain euglycemia Case and plan was reviewed and discussed with Dr Cochran. <Lev Cochran - Last Filed: 01/23/18 13:15> CCU Objective - Vital Signs / Intake & Output Vital Signs (Last 4 hours): Vital Signs Pulse BP Pulse Ox 01/23/18 11:11 109 H 01/23/18 11:00 102 H 148/95 H 100 01/23/18 10:02 99 H 138/85 100 01/23/18 10:00 103 H 99 01/23/18 09:30 106 H 100 01/23/18 09:20 102 H 100 Intake and Output (Last 8hrs): Intake & Output 01/22/18 01/23/18 01/23/18 22:59 06:59 14:59 Intake Total 1287 90.2 Output Total 550 Balance 737 90.2 Weight 155 lb 12.8 oz 166 lb Intake: IV 1287 90.2 Left Hand 1245 Output: Urine 550 Urethral (Mcintosh) 550 Other: Voiding Method Indwelling Catheter - Medications Active Medications: Active Medications Generic Name Dose Route Start Last Admin Trade Name Freq PRN Reason Stop Dose Admin Albuterol/Ipratropium 3 ml 01/23/18 14:00 Duoneb 3 Mg/0.5 Mg (3 Ml) Ud IH [id number] KD Dexamethasone 4 mg 01/23/18 00:00 01/23/18 11:02 Decadron Inj IVP 4 mg Q6 KD Administration Propofol 1,000 mg in 100 mls @ 2.136 mls/hr 01/22/18 20:39 01/23/18 10:58 Diprivan IV 40 mcg/kg/min .Q24H PRN 17.091 mls/hr TITRATE PER MD ORDER Titration Protocol 5 MCG/KG/MIN Sodium Chloride 1,000 mls @ 100 mls/hr 01/23/18 02:15 01/23/18 09:57 Sodium Chloride 0.9% IV 100 mls/hr .Q10H KD Administration Pantoprazole Sodium 40 mg 01/23/18 10:00 01/23/18 09:09 Protonix Inj IVP 40 mg DAILY KD Administration - Patient Studies Lab Studies: Lab Studies 01/23/18 01/23/18 01/23/18 Range/Units 06:00 05:30 05:30 WBC 3.1 L (4.5-11.0) 10^3/ul RBC 3.00 L (3.5-6.1) 10^6/uL Hgb 9.4 L (14.0-18.0) g/dL Hct 28.5 L (42.0-52.0) % MCV 95.0 (80.0-105.0) fl MCH 31.3 (25.0-35.0) pg MCHC 33.0 (31.0-37.0) g/dl RDW 15.1 H (11.5-14.5) % Plt Count 75 L (120.0-450.0) 10^3/uL MPV 8.7 (7.0-11.0) fl Gran % 82.4 H (50.0-68.0) % Lymph % (Auto) 10.4 L (22.0-35.0) % [place] % (Auto) 7.2 H (1.0-6.0) % Eos % (Auto) 0.0 L (1.5-5.0) % Baso % (Auto) 0.0 (0.0-3.0) % Gran # 2.53 (1.4-6.5) Lymph # (Auto) 0.3 L (1.2-3.4) [place] # (Auto) 0.2 (0.1-0.6) Eos # (Auto) 0.0 (0.0-0.7) Baso # (Auto) 0.00 (0.0-2.0) K/mm3 pCO2 47 H (35-45) mm/Hg pO2 144.0 H (80-100) mm/Hg HCO3 25.4 (21-28) mmol/L ABG pH 7.34 L (7.35-7.45) ABG Total CO2 26.8 (22-28) mmol.L ABG O2 Saturation 99.5 H (95-98) % ABG O2 Content 15.3 (15-23) ML/dl ABG Base Excess -0.7 (-2.0-3.0) mmol/L ABG Hemoglobin 11.1 L (11.7-17.4) g/dL ABG Carboxyhemoglobin 2.0 H (0.5-1.5) % POC ABG HHb (Measured) 0.5 (0-5) % ABG Methemoglobin 1.0 (0.0-3.0) % ABG O2 Capacity 15.4 L (16-24) mL/dl ABG Potassium (3.6-5.2) mmol/L Hgb O2 Saturation 96.5 (95.0-98.0) % Glucose (75-110) mg/dl Lactate (0.7-2.1) mmol/L FiO2 40.0 % Sodium 147 (132-148) mmol/L Potassium 4.2 (3.6-5.0) mmol/L Chloride 111 H (98-107) mmol/L Carbon Dioxide 25 (21-33) mmol/L Anion Gap 16 (10-20) BUN 25 H (7-21) mg/dL Creatinine 1.1 (0.8-1.5) mg/dl Est GFR ( Amer) > 60 Est GFR (Non-Af Amer) > 60 Random Glucose 115 H (70-110) mg/dL Calcium 8.4 (8.4-10.5) mg/dL Total Bilirubin 0.3 (0.2-1.3) mg/dL AST 38 (17-59) U/L ALT 26 (7-56) U/L Alkaline Phosphatase 66 (38-126) U/L Total Protein 5.4 L (5.8-8.3) g/dL Albumin 3.4 (3.0-4.8) g/dL Globulin 2.1 gm/dL Albumin/Globulin Ratio 1.6 (1.1-1.8) Arterial Blood Potassium (3.6-5.2) mmol/L 01/23/18 01/22/18 01/22/18 Range/Units 00:15 21:32 21:32 WBC 3.4 L D (4.5-11.0) 10^3/ul RBC 2.91 L (3.5-6.1) 10^6/uL Hgb 9.3 L (14.0-18.0) g/dL Hct 27.7 L (42.0-52.0) % MCV 95.2 (80.0-105.0) fl MCH 32.0 (25.0-35.0) pg MCHC 33.6 (31.0-37.0) g/dl RDW 15.4 H (11.5-14.5) % Plt Count 73 L (120.0-450.0) 10^3/uL MPV 8.7 (7.0-11.0) fl Gran % 79.5 H (50.0-68.0) % Lymph % (Auto) 12.5 L (22.0-35.0) % [place] % (Auto) 6.8 H (1.0-6.0) % Eos % (Auto) 0.9 L (1.5-5.0) % Baso % (Auto) 0.3 (0.0-3.0) % Gran # 2.68 (1.4-6.5) Lymph # (Auto) 0.4 L (1.2-3.4) [place] # (Auto) 0.2 (0.1-0.6) Eos # (Auto) 0.0 (0.0-0.7) Baso # (Auto) 0.01 (0.0-2.0) K/mm3 pCO2 43 (35-45) mm/Hg pO2 171.0 H (80-100) mm/Hg HCO3 26.0 (21-28) mmol/L ABG pH 7.39 (7.35-7.45) ABG Total CO2 27.3 (22-28) mmol.L ABG O2 Saturation 99.3 H (95-98) % ABG O2 Content (15-23) ML/dl ABG Base Excess 0.8 (-2.0-3.0) mmol/L ABG Hemoglobin (11.7-17.4) g/dL ABG Carboxyhemoglobin (0.5-1.5) % POC ABG HHb (Measured) (0-5) % ABG Methemoglobin (0.0-3.0) % ABG O2 Capacity (16-24) mL/dl ABG Potassium 3.9 (3.6-5.2) mmol/L Hgb O2 Saturation (95.0-98.0) % Glucose 109 (75-110) mg/dl Lactate 0.6 L (0.7-2.1) mmol/L FiO2 50.0 % Sodium 147.0 146 (132-148) mmol/L Potassium 3.9 (3.6-5.0) mmol/L Chloride 116.0 H 110 H (98-107) mmol/L Carbon Dioxide 27 (21-33) mmol/L Anion Gap 13 (10-20) BUN 26 H (7-21) mg/dL Creatinine 1.3 (0.8-1.5) mg/dl Est GFR ( Amer) > 60 Est GFR (Non-Af Amer) 53 Random Glucose 96 (70-110) mg/dL Calcium 9.0 (8.4-10.5) mg/dL Total Bilirubin 0.5 (0.2-1.3) mg/dL AST 34 (17-59) U/L ALT 28 (7-56) U/L Alkaline Phosphatase 76 (38-126) U/L Total Protein 5.5 L (5.8-8.3) g/dL Albumin 3.2 (3.0-4.8) g/dL Globulin 2.3 gm/dL Albumin/Globulin Ratio 1.4 (1.1-1.8) Arterial Blood Potassium 3.9 (3.6-5.2) mmol/L Laboratory Results - last 24 hr 01/22/18 01/22/18 01/23/18 21:32 21:32 00:15 WBC 3.4 L D RBC 2.91 L Hgb 9.3 L Hct 27.7 L MCV 95.2 MCH 32.0 MCHC 33.6 RDW 15.4 H Plt Count 73 L MPV 8.7 Gran % 79.5 H Lymph % (Auto) 12.5 L [place] % (Auto) 6.8 H Eos % (Auto) 0.9 L Baso % (Auto) 0.3 Gran # 2.68 Lymph # (Auto) 0.4 L [place] # (Auto) 0.2 Eos # (Auto) 0.0 Baso # (Auto) 0.01 pCO2 43 pO2 171.0 H HCO3 26.0 ABG pH 7.39 ABG Total CO2 27.3 ABG O2 Saturation 99.3 H ABG O2 Content ABG Base Excess 0.8 ABG Hemoglobin ABG Carboxyhemoglobin POC ABG HHb (Measured) ABG Methemoglobin ABG O2 Capacity ABG Potassium 3.9 Hgb O2 Saturation Glucose 109 Lactate 0.6 L FiO2 50.0 Sodium 146 147.0 Potassium 3.9 Chloride 110 H 116.0 H Carbon Dioxide 27 Anion Gap 13 BUN 26 H Creatinine 1.3 Est GFR ( Amer) > 60 Est GFR (Non-Af Amer) 53 Random Glucose 96 Calcium 9.0 Total Bilirubin 0.5 AST 34 ALT 28 Alkaline Phosphatase 76 Total Protein 5.5 L Albumin 3.2 Globulin 2.3 Albumin/Globulin Ratio 1.4 Arterial Blood Potassium 3.9 01/23/18 01/23/18 01/23/18 05:30 05:30 06:00 WBC 3.1 L RBC 3.00 L Hgb 9.4 L Hct 28.5 L MCV 95.0 MCH 31.3 MCHC 33.0 RDW 15.1 H Plt Count 75 L MPV 8.7 Gran % 82.4 H Lymph % (Auto) 10.4 L [place] % (Auto) 7.2 H Eos % (Auto) 0.0 L Baso % (Auto) 0.0 Gran # 2.53 Lymph # (Auto) 0.3 L [place] # (Auto) 0.2 Eos # (Auto) 0.0 Baso # (Auto) 0.00 pCO2 47 H pO2 144.0 H HCO3 25.4 ABG pH 7.34 L ABG Total CO2 26.8 ABG O2 Saturation 99.5 H ABG O2 Content 15.3 ABG Base Excess -0.7 ABG Hemoglobin 11.1 L ABG Carboxyhemoglobin 2.0 H POC ABG HHb (Measured) 0.5 ABG Methemoglobin 1.0 ABG O2 Capacity 15.4 L ABG Potassium Hgb O2 Saturation 96.5 Glucose Lactate FiO2 40.0 Sodium 147 Potassium 4.2 Chloride 111 H Carbon Dioxide 25 Anion Gap 16 BUN 25 H Creatinine 1.1 Est GFR ( Amer) > 60 Est GFR (Non-Af Amer) > 60 Random Glucose 115 H Calcium 8.4 Total Bilirubin 0.3 AST 38 ALT 26 Alkaline Phosphatase 66 Total Protein 5.4 L Albumin 3.4 Globulin 2.1 Albumin/Globulin Ratio 1.6 Arterial Blood Potassium Assessment/Plan - Assessment and Plan (Free Text) Assessment: Patient seen and examined on rounds with resident, agree with note with following additions/exceptions: Pt is 82 yo male with a past medical history of rectal cancer with colostomy, hypertension, abdominal aortic aneurysm presented with foreign body in esophagus found to have zenker's diverticlum, pt kept intubated for laryngeal edema Currently afebrile, HD stable, comfortable in NAD, awake, alert, following commands, on IV decadron, awaiting ENT examination Bedside cuff leak test demonstrated discrepancy in inpiratory volumes and expiratory volumes, signifying less likely the chance of significant larygeal, vocal cord edema Will await ENT Cont with low tidal vol ventilation, pain control, BP control, PPI, follow up GI Monitor HH, FS control Monitor in MICU
--- NOTE | 2018-01-23 15:05 | PCM.PROC ---
Procedures Attestation:: I certify that I have explained the specified Operation(s) or Procedure(s), risks, benefits and reasonable alternatives to the Patient and/or other person responsible. The opportunity was given to ask questions and all questions answered - Laryngoscopy Sedation/Analgesia: Cetacaine [place] Technique: Indirect Nasal Laryngoscopy Findings: Normal Epiglottis (Normal tongue, oral secretions, erythematous erythenoids. R nasal deflexion. posterior soft tissue swelling. successfully extubated. ), Normal Vocal Cords, No Foreign Body, Normal Vocal Cord Function Complications: None Post-procedure Exam: Awake, Alert, Normal BP, Normal HR, Normal O2 Sat
--- NOTE | 2018-01-23 18:56 | HP ---
HISTORY OF PRESENT ILLNESS: The patient is 82 years old, known to me from my office practice. I was notified this morning that the patient is admitted. Apparently, he came yesterday to emergency room because of having difficulty swallowing. According to daughter, he ate chicken and felt something is stuck in the throat. He attempted to put fingers in his throat too so he could vomit, but he was unable to vomit anything. No history of hemoptysis. No history of hematemesis. The patient had CT scan of the chest and neck done. It was found to have large food in the cervical esophageal area. The patient was taken to endoscopy suite, was found to have pharyngeal pouch and food material was stuck in that, that was removed endoscopically. The patient was found to have laryngeal edema, so he was intubated to protect his airways and he was transferred to ICU for close management and further followup. PAST MEDICAL HISTORY: He has significant past medical history of, 1. Seizure disorder. 2. History of CA colon, status post colectomy and colostomy. 3. Hypertension. 4. History of abdominal aortic aneurysm. 5. Thrombocytopenia for that he was worked up and seemed to be nonmalignant issue. 6. Status post appendectomy. ALLERGIES: HE IS NOT ALLERGIC TO ANY MEDICATION. MEDICATION AT HOME: He is on, 1. Dilantin. 2. Metoprolol 25 twice a day. 3. Diltiazem 360 daily. 4. Aspirin 81 daily. SOCIAL HISTORY: Denies smoking, drinking or alcohol use. PHYSICAL EXAMINATION: GENERAL: He is intubated, awake, alert. VITAL SIGNS: He is afebrile, pulse 100, respirations 20, blood pressure 120/50. LUNGS: Bilateral good airflow. No rhonchi or crackle. HEART: S1 and S2 audible. ABDOMEN: Soft. Nontender. No rebound. No guarding. NEUROLOGIC: He is awake, alert, oriented, able to communicate by sign language. LABORATORY EXAM: WBC 13.1, hemoglobin 9.4, hematocrit 28.5, platelet Of 75. PT 12.3, INR 1.35. Chemistry: Sodium 147, potassium 4.2, chloride 111, CO2 of 25, BUN 25, creatinine 1.1, blood sugar of 115. ASSESSMENT: 1. Status post food impaction in the pharyngeal pouch. 2. Esophageal stricture. 3. Seizure disorder. 4. Hypertension. 5. History of colostomy. PLAN: The patient was extubated after I saw the patient. I spoke to Dr. Hinton. He will be on clear liquid diet and he will be evaluated by ENT. We will follow up his CBC and CMP. We will advance his diet slowly and make discharge plan. Tri Fleming MD
[2018-01-24] MEDS: Dexamethasone 4 mg/1 ml IVP SCH ×5 (00:01→23:23)
--- NOTE | 2018-01-24 01:23 | PN ---
DATE: 01/23/2018 SUBJECTIVE: This patient is now extubated. The patient had a direct laryngoscopy done by ENT and he was extubated earlier. PHYSICAL EXAMINATION: VITAL SIGNS: The patient is afebrile, blood pressure 120/50, pulse 110, respirations HEENT: Atraumatic, anicteric. NECK: Supple. HEART: S1 and S2 heard. LUNGS: Bilateral air entry present. ABDOMEN: Soft. There is no mass palpable. No tenderness. EXTREMITIES: No edema. No cyanosis. LABORATORY DATA: Hemoglobin 9.4, hematocrit 28.5, WBC 3.1, platelets 75. Chemistry is LFTs normal, otherwise unremarkable. IMPRESSION: This 82-year-old patient status post removal of large amount of foreign body yesterday. The patient came to the emergency room with food impaction for more than 24 hours. Yesterday had an endoscopy, found to have a large pharyngeal pouch and also more than 4-5 cm long food impaction in the proximal esophagus. The patient also had a stricture at 16 cm level. Clearance of the esophagus was done. There was a little amount of food material deep in the pharyngeal pouch, which was not removed. The patient also had laryngeal edema, was left intubated. The patient had a direct laryngoscopy done today and then subsequently the patient was extubated. The patient was comfortable. The patient is to be started on liquid diet at the time of examination. Other comorbidities include seizure disorder, history of colon cancer, status post colon resection, hypertension, thrombocytopenia. RECOMMENDATIONS: I would recommend the patient may from the ENT followup regarding definitive treatment for pharyngeal pouch We will follow up the labs in the a.m. and consider advancing diet to puree diet Thank you very much for allowing us to participate in the care of the patient. Samson Hinton MD [place]
[2018-01-24] MEDS: Albuterol-Ipratrop 3 mg / 0.5 (3 ml) UD IH SCH ×3 (01:30→20:25)
[2018-01-24 06:10] LABS: ALB/GLOB RATIO 1.6 (1.1-1.8); ALBUMIN 3.3 g/dL (3.0-4.8); ALT/SGPT 31 U/L (7-56); AST/SGOT 36 U/L (17-59); BLOOD UREA NITROGEN 25 mg/dL (7-21); CALCIUM 8.5 mg/dL (8.4-10.5); GFR AFRICAN-AMERICAN > 60; GFR NON-AFRICAN AMERICAN > 60
[2018-01-24 06:18] LABS: BASO # 0.01 K/mm3 (0.0-2.0); BASO % 0.3 % (0.0-3.0); EOS % 0.3 % (1.5-5.0); GRAN # 2.88 (1.4-6.5); HEMOGLOBIN 9.6 g/dL (14.0-18.0); LYMPH # 0.5 (1.2-3.4); LYMPH % 14.6 % (22.0-35.0); MEAN CELL VOLUME 94.4 fl (80.0-105.0); MEAN CORPUSCULAR HEMOGLOBIN 31.7 pg (25.0-35.0); MEAN CORPUSCULAR HGB CONC 33.6 g/dl (31.0-37.0); MEAN PLATELET VOLUME 9.4 fl (7.0-11.0); MONO # 0.3 (0.1-0.6); MONO % 6.8 % (1.0-6.0); RBC 3.03 10^6/uL (3.5-6.1); RED CELL DISTRIBUTION WIDTH 15.1 % (11.5-14.5); WHITE BLOOD COUNT 3.7 10^3/ul (4.5-11.0)
[2018-01-24] MEDS: Sodium Chloride 0.9% 1,000 ML IV SCH (07:35)
[2018-01-24] MEDS ORDERED: Metoprolol 1 mg/ml Inj IVP ONE (08:23)
[2018-01-24] MEDS: diltiaZEM 180 mg/24 Hours CD Cap PO SCH ×2 (08:23→09:24)
[2018-01-24] MEDS: Metoprolol Succinate 25 mg XL Tab PO SCH ×3 (08:23→17:44)
[2018-01-24] MEDS ORDERED: DILTIAZEM HYDROCHLORIDE PO SCH (10:00)
--- NOTE | 2018-01-24 12:34 | CP.CCUPN ---
<Clark Mansfield - Last Filed: 01/24/18 12:24> CCU Subjective - Physician Review Subjective (Free Text): 01/24/18 12:24 Patient seen and examined at bedside in no acute distress. Patient admits to palpitations. Denies shortness of breath, chest pain, nausea, vomiting, diarrhea , headache, fevers, chills. CCU Objective - Vital Signs / Intake & Output Vital Signs (Last 4 hours): Vital Signs Pulse Resp BP Pulse Ox 01/24/18 10:59 109 H 01/24/18 10:05 101 H 30 H 93 L 01/24/18 10:04 114 H 26 H 90 L 01/24/18 10:03 114 H 31 H 92 L 01/24/18 10:02 108 H 28 H 90 L 01/24/18 10:01 107 H 26 H 91 L 01/24/18 10:00 144/103 H 01/24/18 09:59 109 H 27 H 94 L 01/24/18 09:58 110 H 25 H 92 L 01/24/18 09:57 107 H 23 94 L 01/24/18 09:56 109 H 25 H 91 L 01/24/18 09:55 111 H 34 H 81 L 01/24/18 09:54 111 H 14 89 L 01/24/18 09:53 105 H 28 H 93 L 01/24/18 09:52 110 H 27 H 93 L 01/24/18 09:51 109 H 26 H 93 L 01/24/18 09:50 113 H 19 93 L 01/24/18 09:49 113 H 29 H 89 L 01/24/18 09:48 115 H 36 H 87 L 01/24/18 09:47 123 H 27 H 91 L 01/24/18 09:46 117 H 24 87 L 01/24/18 09:45 110 H 25 H 93 L 01/24/18 09:44 116 H 22 95 01/24/18 09:43 108 H 24 85 L 01/24/18 09:42 108 H 26 H 83 L 01/24/18 09:41 111 H 22 93 L 01/24/18 09:40 113 H 27 H 85 L 01/24/18 09:39 112 H 24 86 L 01/24/18 09:38 109 H 25 H 84 L 01/24/18 09:37 103 H 28 H 90 L 01/24/18 09:36 115 H 24 84 L 01/24/18 09:35 114 H 29 H 87 L 01/24/18 09:34 111 H 27 H 87 L 01/24/18 09:33 112 H 27 H 91 L 01/24/18 09:32 122 H 25 H 95 01/24/18 09:31 114 H 24 92 L 01/24/18 09:30 111 H 25 H 92 L 01/24/18 09:29 114 H 32 H 94 L 01/24/18 09:28 109 H 26 H 84 L 01/24/18 09:27 104 H 24 90 L 01/24/18 09:26 120 H 27 H 87 L 01/24/18 09:25 117 H 27 H 92 L 01/24/18 09:24 115 H 26 H 93 L 01/24/18 09:23 110 H 23 92 L 01/24/18 09:22 107 H 25 H 95 01/24/18 09:21 111 H 26 H 91 L 01/24/18 09:20 114 H 25 H 92 L 01/24/18 09:19 118 H 26 H 94 L 01/24/18 09:18 115 H 19 91 L 01/24/18 09:17 114 H 25 H 92 L 01/24/18 09:16 110 H 25 H 89 L 01/24/18 08:32 124 H 156/101 H Intake and Output (Last 8hrs): Intake & Output 01/23/18 01/24/18 01/24/18 22:59 06:59 14:59 Intake Total 1628 1480 Output Total 400 600 700 Balance 1228 880 -700 Weight 71.078 kg Intake: IV 1528 1200 Left Hand 1528 1200 Right Hand 0 Oral 100 280 Output: Urine 400 600 700 Urethral (Mcintosh) 400 600 700 Other: # Bowel Movements 1 - Physical Exam Head: Positive for: Atraumatic, Normocephalic Pupils: Positive for: PERRL Extroacular Muscles: Positive for: EOMI Conjunctiva: Positive for: Normal Mouth: Positive for: Moist Mucous Membranes Pharnyx: Negative for: ERYTHEMA, EXUDATE, TONSILS ENLARGED, Muffled/Hoarse Voice , Soft Palate/Uvular Edema Neck: Positive for: Normal Range of Motion, Trachea Midline. Negative for: MIDLINE TENDERNESS, Paraspinal Tenderness, Lymphadenopathy Respiratory/Chest: Positive for: Clear to Auscultation, Good Air Exchange. Negative for: Respiratory Distress, Accessory Muscle Use Cardiovascular: Positive for: Irregular Rhythm, Tachycardic. Negative for: Murmurs Abdomen: Negative for: Tenderness, Distention, Peritoneal Signs, Rebound, Guarding Back: Positive for: Normal Inspection Upper Extremity: Positive for: Normal Inspection. Negative for: Cyanosis, Edema Lower Extremity: Positive for: Normal Inspection. Negative for: Edema Neurological: Positive for: GCS=15, Speech Normal, Motor Func Grossly Intact, Gait Normal, Memory Normal Skin: Positive for: Warm, Dry, Normal Color. Negative for: Rashes Psychiatric: Positive for: Alert, Oriented x 3, Normal Insight, Normal Concentration - Medications Active Medications: Active Medications Generic Name Dose Route Start Last Admin Trade Name Freq PRN Reason Stop Dose Admin Albuterol/Ipratropium 3 ml 01/23/18 14:00 01/24/18 07:00 Duoneb 3 Mg/0.5 Mg (3 Ml) Ud IH 3 ml [id number] KD Administration Dexamethasone 4 mg 01/23/18 00:00 01/24/18 11:28 Decadron Inj IVP 4 mg Q6 KD Administration Diltiazem HCl 360 mg 01/24/18 10:00 01/24/18 09:24 Cardizem Cd PO Not Given DAILY KD Metoprolol Succinate 25 mg 01/24/18 10:00 01/24/18 09:24 Toprol Xl PO Not Given BID KD Pantoprazole Sodium 40 mg 01/23/18 10:00 01/24/18 09:24 Protonix Inj IVP 40 mg DAILY DK Administration Phenytoin Sodium 100 mg 01/24/18 10:00 01/24/18 10:57 Dilantin PO 100 mg TID KD Administration - Patient Studies Lab Studies: Lab Studies 01/24/18 01/24/18 Range/Units 05:15 05:15 WBC 3.7 L (4.5-11.0) 10^3/ul RBC 3.03 L (3.5-6.1) 10^6/uL Hgb 9.6 L (14.0-18.0) g/dL Hct 28.6 L (42.0-52.0) % MCV 94.4 (80.0-105.0) fl MCH 31.7 (25.0-35.0) pg MCHC 33.6 (31.0-37.0) g/dl RDW 15.1 H (11.5-14.5) % Plt Count 75 L (120.0-450.0) 10^3/uL MPV 9.4 (7.0-11.0) fl Gran % 78.0 H (50.0-68.0) % Lymph % (Auto) 14.6 L (22.0-35.0) % [place] % (Auto) 6.8 H (1.0-6.0) % Eos % (Auto) 0.3 L (1.5-5.0) % Baso % (Auto) 0.3 (0.0-3.0) % Gran # 2.88 (1.4-6.5) Lymph # (Auto) 0.5 L (1.2-3.4) [place] # (Auto) 0.3 (0.1-0.6) Eos # (Auto) 0.0 (0.0-0.7) Baso # (Auto) 0.01 (0.0-2.0) K/mm3 Sodium 146 (132-148) mmol/L Potassium 4.2 (3.6-5.0) mmol/L Chloride 110 H (98-107) mmol/L Carbon Dioxide 26 (21-33) mmol/L Anion Gap 13 (10-20) BUN 25 H (7-21) mg/dL Creatinine 1.0 (0.8-1.5) mg/dl Est GFR ( Amer) > 60 Est GFR (Non-Af Amer) > 60 Random Glucose 106 (70-110) mg/dL Calcium 8.5 (8.4-10.5) mg/dL Total Bilirubin 0.2 (0.2-1.3) mg/dL AST 36 (17-59) U/L ALT 31 (7-56) U/L Alkaline Phosphatase 61 (38-126) U/L Total Protein 5.3 L (5.8-8.3) g/dL Albumin 3.3 (3.0-4.8) g/dL Globulin 2.1 gm/dL Albumin/Globulin Ratio 1.6 (1.1-1.8) Laboratory Results - last 24 hr 01/24/18 01/24/18 05:15 05:15 WBC 3.7 L RBC 3.03 L Hgb 9.6 L Hct 28.6 L MCV 94.4 MCH 31.7 MCHC 33.6 RDW 15.1 H Plt Count 75 L MPV 9.4 Gran % 78.0 H Lymph % (Auto) 14.6 L [place] % (Auto) 6.8 H Eos % (Auto) 0.3 L Baso % (Auto) 0.3 Gran # 2.88 Lymph # (Auto) 0.5 L [place] # (Auto) 0.3 Eos # (Auto) 0.0 Baso # (Auto) 0.01 Sodium 146 Potassium 4.2 Chloride 110 H Carbon Dioxide 26 Anion Gap 13 BUN 25 H Creatinine 1.0 Est GFR ( Amer) > 60 Est GFR (Non-Af Amer) > 60 Random Glucose 106 Calcium 8.5 Total Bilirubin 0.2 AST 36 ALT 31 Alkaline Phosphatase 61 Total Protein 5.3 L Albumin 3.3 Globulin 2.1 Albumin/Globulin Ratio 1.6 Review of Systems - EENT Eyes: absent: Blurred Vision, Change in Vision - Cardiovascular Cardiovascular: absent: Chest Pain, Dyspnea, Dyspnea on Exertion - Respiratory Respiratory: absent: Cough, Dyspnea, Wheezing - Gastrointestinal Gastrointestinal: absent: Abdominal Pain, Diarrhea, Nausea, Vomiting - Genitourinary Genitourinary: absent: Dysuria - Neurological Neurological: absent: Dizziness, Numbness, Headaches - Psychiatric Psychiatric: UNREMARKABLE. absent: Anxiety - Endocrine Endocrine: UNREMARKABLE. 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 Patient now extubated. Neuro - Currently off of sedation - history of seizures, well control with medications - Resume PO medications - elevated HOB 35' - maintain normothermia ENT - laryngeal edema - Patient now extubated - ENT on consult Respiratory - Patient no extubated - maintain sao2>90% CV -hemodynamically stable -maintain MAP>65 -Resume PO medications -Patient found to be in A fib; Lopressor 5 mg IV push given, patient's cardizem restarted GI - egd showed zenker's diverticulum with foreign body, food was removed - ENT consulted - protonix for GI ppx - GI consulted for recs Heme - monitor H/H - thrombocytopenia, per patient history of low platelets - s/p 1 unit platelets given Endo: - Maintain euglycemia Dispo: transfer to Telemetry <Lev Cochran - Last Filed: 01/24/18 13:26> CCU Objective - Vital Signs / Intake & Output Vital Signs (Last 4 hours): Vital Signs Pulse Resp BP Pulse Ox 01/24/18 11:00 155/83 H 01/24/18 10:59 101 H 24 84 L 01/24/18 10:05 101 H 30 H 93 L 01/24/18 10:04 114 H 26 H 90 L 01/24/18 10:03 114 H 31 H 92 L 01/24/18 10:02 108 H 28 H 90 L 01/24/18 10:01 107 H 26 H 91 L 01/24/18 10:00 144/103 H 01/24/18 09:59 109 H 27 H 94 L 01/24/18 09:58 110 H 25 H 92 L 01/24/18 09:57 107 H 23 94 L 01/24/18 09:56 109 H 25 H 91 L 01/24/18 09:55 111 H 34 H 81 L 01/24/18 09:54 111 H 14 89 L 01/24/18 09:53 105 H 28 H 93 L 01/24/18 09:52 110 H 27 H 93 L 01/24/18 09:51 109 H 26 H 93 L 01/24/18 09:50 113 H 19 93 L 01/24/18 09:49 113 H 29 H 89 L 01/24/18 09:48 115 H 36 H 87 L 01/24/18 09:47 123 H 27 H 91 L 01/24/18 09:46 117 H 24 87 L 01/24/18 09:45 110 H 25 H 93 L 01/24/18 09:44 116 H 22 95 01/24/18 09:43 108 H 24 85 L 01/24/18 09:42 108 H 26 H 83 L 01/24/18 09:41 111 H 22 93 L 01/24/18 09:40 113 H 27 H 85 L 01/24/18 09:39 112 H 24 86 L 01/24/18 09:38 109 H 25 H 84 L 01/24/18 09:37 103 H 28 H 90 L 01/24/18 09:36 115 H 24 84 L 01/24/18 09:35 114 H 29 H 87 L 01/24/18 09:34 111 H 27 H 87 L 01/24/18 09:33 112 H 27 H 91 L 01/24/18 09:32 122 H 25 H 95 01/24/18 09:31 114 H 24 92 L 01/24/18 09:30 111 H 25 H 92 L 01/24/18 09:29 114 H 32 H 94 L 01/24/18 09:28 109 H 26 H 84 L 01/24/18 09:27 104 H 24 90 L 01/24/18 09:26 120 H 27 H 87 L 01/24/18 09:25 117 H 27 H 92 L Intake and Output (Last 8hrs): Intake & Output 01/23/18 01/24/18 01/24/18 22:59 06:59 14:59 Intake Total 1628 1480 Output Total 400 600 700 Balance 1228 880 -700 Weight 156 lb 11.2 oz Intake: IV 1528 1200 Left Hand 1528 1200 Right Hand 0 Oral 100 280 Output: Urine 400 600 700 Urethral (Mcintosh) 400 600 700 Other: # Bowel Movements 1 - Medications Active Medications: Active Medications Generic Name Dose Route Start Last Admin Trade Name Freq PRN Reason Stop Dose Admin Albuterol/Ipratropium 3 ml 01/23/18 14:00 01/24/18 07:00 Duoneb 3 Mg/0.5 Mg (3 Ml) Ud IH 3 ml [id number] KD Administration Dexamethasone 4 mg 01/23/18 00:00 01/24/18 11:28 Decadron Inj IVP 4 mg Q6 KD Administration Diltiazem HCl 360 mg 01/24/18 10:00 01/24/18 09:24 Cardizem Cd PO Not Given DAILY KD Metoprolol Succinate 25 mg 01/24/18 10:00 01/24/18 09:24 Toprol Xl PO Not Given BID KD Pantoprazole Sodium 40 mg 01/23/18 10:00 01/24/18 09:24 Protonix Inj IVP 40 mg DAILY KD Administration Phenytoin Sodium 100 mg 01/24/18 10:00 01/24/18 10:57 Dilantin PO 100 mg TID KD Administration - Patient Studies Lab Studies: Lab Studies 01/24/18 01/24/18 Range/Units 05:15 05:15 WBC 3.7 L (4.5-11.0) 10^3/ul RBC 3.03 L (3.5-6.1) 10^6/uL Hgb 9.6 L (14.0-18.0) g/dL Hct 28.6 L (42.0-52.0) % MCV 94.4 (80.0-105.0) fl MCH 31.7 (25.0-35.0) pg MCHC 33.6 (31.0-37.0) g/dl RDW 15.1 H (11.5-14.5) % Plt Count 75 L (120.0-450.0) 10^3/uL MPV 9.4 (7.0-11.0) fl Gran % 78.0 H (50.0-68.0) % Lymph % (Auto) 14.6 L (22.0-35.0) % [place] % (Auto) 6.8 H (1.0-6.0) % Eos % (Auto) 0.3 L (1.5-5.0) % Baso % (Auto) 0.3 (0.0-3.0) % Gran # 2.88 (1.4-6.5) Lymph # (Auto) 0.5 L (1.2-3.4) [place] # (Auto) 0.3 (0.1-0.6) Eos # (Auto) 0.0 (0.0-0.7) Baso # (Auto) 0.01 (0.0-2.0) K/mm3 Sodium 146 (132-148) mmol/L Potassium 4.2 (3.6-5.0) mmol/L Chloride 110 H (98-107) mmol/L Carbon Dioxide 26 (21-33) mmol/L Anion Gap 13 (10-20) BUN 25 H (7-21) mg/dL Creatinine 1.0 (0.8-1.5) mg/dl Est GFR ( Amer) > 60 Est GFR (Non-Af Amer) > 60 Random Glucose 106 (70-110) mg/dL Calcium 8.5 (8.4-10.5) mg/dL Total Bilirubin 0.2 (0.2-1.3) mg/dL AST 36 (17-59) U/L ALT 31 (7-56) U/L Alkaline Phosphatase 61 (38-126) U/L Total Protein 5.3 L (5.8-8.3) g/dL Albumin 3.3 (3.0-4.8) g/dL Globulin 2.1 gm/dL Albumin/Globulin Ratio 1.6 (1.1-1.8) Laboratory Results - last 24 hr 01/24/18 01/24/18 05:15 05:15 WBC 3.7 L RBC 3.03 L Hgb 9.6 L Hct 28.6 L MCV 94.4 MCH 31.7 MCHC 33.6 RDW 15.1 H Plt Count 75 L MPV 9.4 Gran % 78.0 H Lymph % (Auto) 14.6 L [place] % (Auto) 6.8 H Eos % (Auto) 0.3 L Baso % (Auto) 0.3 Gran # 2.88 Lymph # (Auto) 0.5 L [place] # (Auto) 0.3 Eos # (Auto) 0.0 Baso # (Auto) 0.01 Sodium 146 Potassium 4.2 Chloride 110 H Carbon Dioxide 26 Anion Gap 13 BUN 25 H Creatinine 1.0 Est GFR ( Amer) > 60 Est GFR (Non-Af Amer) > 60 Random Glucose 106 Calcium 8.5 Total Bilirubin 0.2 AST 36 ALT 31 Alkaline Phosphatase 61 Total Protein 5.3 L Albumin 3.3 Globulin 2.1 Albumin/Globulin Ratio 1.6 Critical Care Progress Note - Nutrition Nutrition: Nutrition Category Date Time Status Liquid Diet [DIET] Diets 01/23/18 Dinner Ordered Assessment/Plan - Assessment and Plan (Free Text) Assessment: Patient seen and examined on rounds with resident, agree with note with following additions/exceptions: Pt is 82 yo male with a past medical history of rectal cancer with colostomy, hypertension, abdominal aortic aneurysm presented with foreign body in esophagus 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 Pt yesterday evaluated by ENT. Patient demonstrated cuff leak yesterday. Currently afebrile, HD stable, comfortable in NAD, awake, alert, appropriate, watching TV, NO stridor. Patients home meds resumed. STABLE, transfer to tele
--- NOTE | 2018-01-24 14:43 | CON ---
DATE: CARDIOLOGY CONSULT REASON FOR CONSULTATION: Hypertension and abdominal aortic aneurysm as well as history of coronary artery disease. HISTORY OF PRESENT ILLNESS: The patient is an 82-year-old male, who has history of coronary artery disease, underwent coronary balloon angioplasty in the late 80s and since then did not require any further intervention. The patient was admitted because of difficulty swallowing and was found on CAT scan to have a large food in the cervical esophageal area and was taken to endoscopy suite and food material was removed from the pharyngeal pouch area endoscopically and the patient was intubated to protect the airway as he was found to have laryngeal edema. The patient was transferred to the ICU and today from the ICU was sent to telemetry after extubation. The patient denies any chest pain or neck pain at this time. SOCIAL HISTORY: The patient is a nonsmoker. He lives with his daughter. PAST MEDICAL HISTORY: History of colon cancer. The patient has permanent colostomy for many years. History of seizures; history of coronary artery disease, status post balloon angioplasty in the late s. MEDICATIONS: Cardizem CD 360 mg once a day, Decadron 4 mg intravenously every 6 hours, Dilantin 100 mg t.i.d., Protonix 40 mg intravenously daily, Toprol-XL 25 mg twice a day. PHYSICAL EXAMINATION: GENERAL: The patient is an elderly male, who does not appear to be in acute distress. VITAL SIGNS: Blood pressure 155/83, heart rate is 101, respirations 24, temperature 98.6. HEENT: Pale conjunctivae. CHEST: Clear. HEART: S1 and S2 regular. EXTREMITIES: No edema. LABORATORY DATA: Today's hemoglobin and hematocrit 9.6 and 28.6, white count 3.7, platelet count 75,000. SMA-7: Sodium 146, potassium 4.2, chloride 110, CO2 of 26, glucose of 106, BUN 25, creatinine 1. EKG revealed atrial fibrillation at a rate of 100, nonspecific lateral ST-T wave changes; however, ischemia cannot be completely excluded. Chest x-ray revealed cardiomegaly with mild CHF. The most recent EKG prior to this admission of record is from 11/16/2013 and the patient was in sinus rhythm. ASSESSMENT: 1. Status post food impaction in the pharyngeal pouch with endoscopic removal. 2. Newly diagnosed atrial fibrillation. 3. History of coronary artery disease, status post balloon angioplasty in the late 80s. 4. Seizure disorder. 5. History colon cancer, status post permanent colostomy. RECOMMENDATIONS: Continue current Toprol-XL 25 mg twice a day, Dilantin 100 mg t.i.d., Decadron 4 mg intravenously every 6 hours, Cardizem at 360 mg once a day. Obtain repeat 12-lead EKG. Schedule the patient for an echocardiogram and obtain TSH level. Long-term anticoagulation may not be justified in view of history of seizure disorder. Delfin Oconnell MD
[2018-01-24 17:44] VITALS: O2SAT 97
--- NOTE | 2018-01-24 21:05 | PN ---
DATE: SUBJECTIVE: The patient is an 82-year-old, seen and examined, had food impaction in his pharyngeal pouch, underwent endoscopy and had removed, was found to have vocal cord edema, was intubated for airway protection and was successfully extubated yesterday evening. PHYSICAL EXAMINATION: GENERAL: Today, he is awake, alert, oriented, communicative. VITAL SIGNS: He is afebrile, pulse 105, respirations 24, blood pressure 155/83. LUNGS: Bilateral fair airflow. No rhonchi or crackle. HEART: S1 and S2 audible. ABDOMEN: Soft, nontender. No rebound. No guarding. NEUROLOGICAL: The patient is awake, alert, oriented, communicative. LABORATORY DATA: WBC 3.7, hemoglobin 9.6, hematocrit 28.6, platelet of 75. Chemistry: Sodium 146, potassium , chloride 110, CO2 23, BUN 25, creatinine 1, blood sugar 106. ASSESSMENT: 1. Status post food impaction and removal. 2. History of hypertension. 3. History of aortic aneurysm. 4. History of seizure disorder. 5. History of coronary artery disease, status post balloon angioplasty. 6. History of carcinoma of colon, status post colectomy and colostomy. PLAN: Currently, the patient is on diltiazem. He is on Decadron. We will cut down to 4 mg every 8 and slowly taper it down. Continue metoprolol. We will follow up this patient in a.m. ID input noted and appreciated. The patient will be referred to ENT for further treatment for pharyngeal pouch resection. Tri Fleming MD
[2018-01-25] MEDS: Albuterol-Ipratrop 3 mg / 0.5 (3 ml) UD IH SCH ×3 (01:36→13:36)
--- NOTE | 2018-01-25 02:25 | PN ---
DATE: 01/24/2018 SUBJECTIVE: This patient was seen and evaluated earlier today. The patient is tolerating the diet. PHYSICAL EXAMINATION: VITAL SIGNS: He is afebrile, pulse 104, respirations 24, blood pressure is 155/83. HEENT: Atraumatic, anicteric. NECK: Supple. HEART: S1 and S2 heard. LUNGS: Bilateral air entry present. ABDOMEN: Soft. There is no mass palpable. No tenderness. LABORATORY DATA: Hemoglobin 9.6, hematocrit 28.6, WBC 3.7, platelets 75. Chemistry is essentially unremarkable. IMPRESSION: This 82-year-old patient admitted with dysphagia, found to have a foreign body impaction in the upper esophageal area. There was a stricture noticed 16 cm level and also a large pharyngeal pouch. Esophagus was cleared. The patient was intubated, patient had laryngoscopy done yesterday, was extubated. The patient is now recommended to try pureed diet. Continue the proton pump inhibitors. The patient did have some gastric erosions. The patient was evaluated by the ENT. The patient's plan is to be followed up an outpatient for the esophageal surgery. We will consider esophagogram to further evaluate. Thank you very much for allowing us to participate in the care of the patient. Samson Hinton MD
[2018-01-25] MEDS: Dexamethasone 4 mg/1 ml IVP SCH ×2 (05:25→12:53)
[2018-01-25 07:22] LABS: GRAN # 3.79 (1.4-6.5); GRAN % 87.3 % (50.0-68.0); HEMOGLOBIN 10.9 g/dL (14.0-18.0); LYMPH # 0.3 (1.2-3.4); LYMPH % 6.7 % (22.0-35.0); MEAN CELL VOLUME 93.8 fl (80.0-105.0); MEAN CORPUSCULAR HEMOGLOBIN 30.8 pg (25.0-35.0); MEAN CORPUSCULAR HGB CONC 32.8 g/dl (31.0-37.0); MONO # 0.3 (0.1-0.6); RBC 3.54 10^6/uL (3.5-6.1); RED CELL DISTRIBUTION WIDTH 14.8 % (11.5-14.5); WHITE BLOOD COUNT 4.3 10^3/ul (4.5-11.0)
[2018-01-25 07:40] LABS: ALB/GLOB RATIO 1.7 (1.1-1.8); ALT/SGPT 37 U/L (7-56); AST/SGOT 41 U/L (17-59); BLOOD UREA NITROGEN 28 mg/dL (7-21); CALCIUM 9.2 mg/dL (8.4-10.5); GFR AFRICAN-AMERICAN > 60; GFR NON-AFRICAN AMERICAN > 60
--- NOTE | 2018-01-25 08:07 | CP.PCM.PN ---
Subjective - Date & Time of Evaluation Date of Evaluation: 01/25/18 Time of Evaluation: 06:55 - Subjective Subjective: Seen and examined by me and Dr. Greenfield Reason for consult and follow up: Cardiac evaluation,hypertension, and history of abdominal aortic aneurysm, coronary artery disease post balloon angioplasty in the . Subjective: Feeling okay, denies chest pain or palpitations. Objective - Vital Signs/Intake and Output Vital Signs (last 24 hours): Temp Pulse Resp BP Pulse Ox 98.1 F 92 H 20 142/96 H 97 01/25/18 05:57 01/25/18 05:57 01/25/18 05:57 01/25/18 05:57 01/25/18 05:57 - Medications Medications: Current Medications Albuterol/Ipratropium (Duoneb 3 Mg/0.5 Mg (3 Ml) Ud) 3 ml IH [id number] [facility] Last Admin: 01/25/18 01:36 Dose: Not Given Dexamethasone (Decadron Inj) 4 mg IVP Q6 [facility] Last Admin: 01/25/18 05:25 Dose: 4 mg Diltiazem HCl (Cardizem Cd) 360 mg PO DAILY [facility] Last Admin: 01/24/18 09:24 Dose: Not Given Metoprolol Succinate (Toprol Xl) 25 mg PO BID [facility] Last Admin: 01/24/18 17:44 Dose: 25 mg Pantoprazole Sodium (Protonix Inj) 40 mg IVP DAILY [facility] Last Admin: 01/24/18 09:24 Dose: 40 mg Phenytoin Sodium (Dilantin) 100 mg PO TID [facility] Last Admin: 01/24/18 17:56 Dose: 100 mg - Labs Labs: 01/25/18 06:45 01/25/18 06:45 PT 12.3 SECONDS (9.4-12.5) 01/22/18 10:30 INR 1.07 (0.93-1.08) 01/22/18 10:30 APTT 27.0 Seconds (25.1-36.5) 01/22/18 10:30 - Constitutional Appears: Well, No Acute Distress - Head Exam Head Exam: NORMAL INSPECTION - Eye Exam Eye Exam: Normal appearance Pupil Exam: NORMAL ACCOMODATION - ENT Exam ENT Exam: Mucous Membranes Moist Additional comments: No neck edema post removal of food from esophageal pouch - Neck Exam Neck Exam: Normal Inspection - Respiratory Exam Respiratory Exam: Clear to Ausculation Bilateral, NORMAL BREATHING PATTERN - Cardiovascular Exam Cardiovascular Exam: Irregular Rhythm, +S1, +S2 Additional comments: Afib - GI/Abdominal Exam GI & Abdominal Exam: Soft, Normal Bowel Sounds Additional comments: with colostomy intact - Extremities Exam Extremities Exam: Full ROM, Normal Capillary Refill - Neurological Exam Neurological Exam: Alert, Awake, Oriented x3 - Psychiatric Exam Psychiatric exam: Normal Affect, Normal Mood - Skin Skin Exam: Intact, Normal Color, Warm Assessment and Plan - Assessment and Plan (Free Text) Assessment: IMPRESSION:82 year old came to the ER due to difficulty swallowing. He came to the ER and CT scan showed large food in the cervical esophageal area. Endoscopy was done and took out food material. Intubated post endoscopy and transferred to ICU. eventually extubated and now in Telemetry. History of hypertension, and history of abdominal aortic aneurysm, coronary artery disease post balloon angioplasty in the . History of colon cancer with colostomy, history of seizures, Plan: Cardiac status stable For ECHO today to assess LV function Continue current medications Continue current treatment plan Will follow up Plan and treatment discussed with Dr. Greenfield
--- NOTE | 2018-01-25 09:01 | CARD ---
APPROVED REPORT EKG Measurement Heart [id number] <Conclusion> Atrial fibrillation LVH STTW changes c/w ischemia No change
[2018-01-25] MEDS: Metoprolol Succinate 25 mg XL Tab PO SCH (10:11)
[2018-01-25] MEDS: diltiaZEM 180 mg/24 Hours CD Cap PO SCH (10:11)
[2018-01-25 11:43] VITALS: BP 152/88; PULSE 103; RESP 19; TEMP 97.6
--- NOTE | 2018-01-25 13:07 | CP.PCM.PN ---
Subjective - Date & Time of Evaluation Date of Evaluation: 01/25/18 Time of Evaluation: 10:05 - Subjective Subjective: GI Progress note. Dr. Hinton Pt seen and examined this morning. Patient was ambulating the halls. Denies any complaints. Denies any more globus sensation in throat. No new complaints offered. Objective - Vital Signs/Intake and Output Vital Signs (last 24 hours): Temp Pulse Resp BP Pulse Ox 97.6 F 103 H 19 152/88 H 97 01/25/18 11:42 01/25/18 11:42 01/25/18 11:42 01/25/18 11:42 01/25/18 05:57 - Medications Medications: Current Medications Albuterol/Ipratropium (Duoneb 3 Mg/0.5 Mg (3 Ml) Ud) 3 ml IH [id number] [facility] Last Admin: 01/25/18 08:29 Dose: 3 ml Dexamethasone (Decadron Inj) 4 mg IVP Q12 [facility] Diltiazem HCl (Cardizem Cd) 360 mg PO DAILY [facility] Last Admin: 01/25/18 10:11 Dose: 360 mg Metoprolol Succinate (Toprol Xl) 25 mg PO BID [facility] Last Admin: 01/25/18 10:11 Dose: 25 mg Pantoprazole Sodium (Protonix Inj) 40 mg IVP DAILY [facility] Last Admin: 01/25/18 10:11 Dose: 40 mg Phenytoin Sodium (Dilantin) 100 mg PO TID [facility] Last Admin: 01/25/18 10:10 Dose: 100 mg - Labs Labs: 01/25/18 06:45 01/25/18 06:45 PT 12.3 SECONDS (9.4-12.5) 01/22/18 10:30 INR 1.07 (0.93-1.08) 01/22/18 10:30 APTT 27.0 Seconds (25.1-36.5) 01/22/18 10:30 - Constitutional Appears: Well, Non-toxic, No Acute Distress - Head Exam Head Exam: ATRAUMATIC, NORMAL INSPECTION, NORMOCEPHALIC - Eye Exam Eye Exam: EOMI, Normal appearance - ENT Exam ENT Exam: Mucous Membranes Moist - Respiratory Exam Respiratory Exam: NORMAL BREATHING PATTERN. absent: Accessory Muscle Use - Cardiovascular Exam Cardiovascular Exam: absent: JVD - GI/Abdominal Exam GI & Abdominal Exam: Soft. absent: Distended, Firm, Guarding, Rigid, Tenderness - Extremities Exam Extremities Exam: Normal Inspection. absent: Calf Tenderness - Neurological Exam Neurological Exam: Alert, Awake, Normal Gait, Oriented x3 - Skin Skin Exam: Dry, Intact, Normal Color, Warm Assessment and Plan - Assessment and Plan (Free Text) Assessment: 82yo M with dysphagia. s/p EGD with foreign body impaction in upper esophagus, resolved. 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 - Patient to follow up with Dr. Montejo, ENT, upon discharge - Continue pureed diet upon discharge for at least 2 months - Discussed plan in detail with the patient who expressed understanding and is agreeable with plan. Further recs as per Dr. Jamaal Mittal PGY1
[2018-01-25] MEDS ORDERED: Dexamethasone 4 mg/1 ml IVP SCH (22:00)
[2018-01-26] MEDS ORDERED: Pantoprazole 40 mg EC Tab PO SCH (06:30)
--- NOTE | 2018-01-26 08:53 | PN ---
DATE: 01/25/2018 Addendum of the initial progress note dictated this morning. REASON FOR ADDENDUM: The patient has an AFib and is going for chronic. Discussed in length with the patient. The patient is noncompliant for a while, but he thinks he was there. Check the old record. The patient with a history of AFib, needs snf anticoagulation. We will hold the anticoagulation until the ENT evaluation done. Once the ENT evaluation done and the patient does not need any procedure, we will start Eliquis 5 mg b.i.d. We will discuss with Dr. Fleming. Thank you, Dr. Fleming, for providing us the opportunity in taking care of Roshan Hale. Gladis Greenfield MD
--- NOTE | 2018-01-27 08:54 | DS ---
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 He was found to have laryngeal edema; so, he was intubated for airway protection and was successfully extubated yesterday, has been on pureed diet, tolerating well. No nausea or vomiting. No diarrhea. PHYSICAL EXAMINATION: VITAL SIGNS: He is afebrile. Pulse 103, respirations 19, blood pressure 152/88. LUNGS: Bilateral good airflow. No rhonchi or crackle. HEART: S1 and S2 audible. ABDOMEN: Soft, nontender. No rebound. No guarding. NEUROLOGIC: Patient is awake, alert, oriented, communicative, ambulatory. LABORATORY DATA: WBC 4.3, hemoglobin 10.9, hematocrit 33.2, platelet 82. Chemistries: Sodium 147, potassium 4.6, chloride 107, CO2 of 28, BUN 28, creatinine 1, blood sugar 137. EKG done yesterday shows left ventricular hypertrophy. ASSESSMENT AND PLAN: 1. Status post food impaction. 2. Atrial fibrillation. 3. History of seizure disorder. 4. Pharyngeal pouch. PLAN: As discussed with Dr. Hinton, the patient will go and follow up with Dr. Montejo and have hypopharyngeal pouch resected later on. I will discuss with Dr. Greenfield if patient needs to be discharged home on anticoagulant, patient has low platelet count, starting him on Coumadin or Eliquis could carry some danger, discussed with patient and he does not want to start any anticoagulant. later on once we decide that he needs to be on anticoagulant, and once he get esophagogram that has been ordered. We will follow up patient in office. Tri Fleming MD
== END 2018-01-25 16:38 | disposition home or self-care (01) | DRG 392 ==
LOC: ED 09:47 → CCU 20:57 → 2RNO 01-24 12:03
PROVIDERS: ADMIT Internal Medicine Gastroenterology; ATTEND Internal Medicine
PROC: 0DC58ZZ Extirpation of Matter from Esophagus, Via Natural or Artificial Opening Endoscopic (ICD-10-PCS; 2018-01-22)
PROC: 0BH17EZ Insertion of Endotracheal Airway into Trachea, Via Natural or Artificial Opening (ICD-10-PCS; 2018-01-22)
PROC: 5A1935Z Respiratory Ventilation, Less than 24 Consecutive Hours (ICD-10-PCS; 2018-01-22)
PROC: 6A550Z2 Pheresis of Platelets, Single (ICD-10-PCS; 2018-01-22)
PROC: 0CJS8ZZ Inspection of Larynx, Via Natural or Artificial Opening Endoscopic (ICD-10-PCS; principal; 2018-01-23)
DX: K22.2 Esophageal obstruction (principal); K22.5 Diverticulum of esophagus, acquired; G40.909 Epilepsy, unspecified, not intractable, without status epilepticus; D69.6 Thrombocytopenia, unspecified; I11.0 Hypertensive heart disease with heart failure; I25.10 Atherosclerotic heart disease of native coronary artery without angina pectoris; I25.2 Old myocardial infarction; I48.91 Unspecified atrial fibrillation; I50.9 Heart failure, unspecified; I71.4 Abdominal aortic aneurysm, without rupture; J38.4 Edema of larynx; K25.9 Gastric ulcer, unspecified as acute or chronic, without hemorrhage or perforation; Q38.7 Congenital pharyngeal pouch; T18.108A Unspecified foreign body in esophagus causing other injury, initial encounter; Z79.01 Long term (current) use of anticoagulants; Z79.82 Long term (current) use of aspirin; Z79.899 Other long term (current) drug therapy; Z85.048 Personal history of other malignant neoplasm of rectum, rectosigmoid junction, and anus; Z86.79 Personal history of other diseases of the circulatory system; Z90.49 Acquired absence of other specified parts of digestive tract; Z91.19 Patient's noncompliance with other medical treatment and regimen; Z93.3 Colostomy status; R40.2412 Glasgow coma scale score 13-15, at arrival to emergency department; Z98.61 Coronary angioplasty status

== ENCOUNTER 2018-02-22 05:08 | Inpatient (IN) | payer MEDICARE ==
[2018-02-22 05:11] VITALS: BMI 24.0
--- NOTE | 2018-02-22 06:02 | ED PDOC ---
Arrival/HPI - General Chief Complaint: Palpitations Time Seen by Provider: 02/22/18 05:13 Historian: Patient - History of Present Illness Narrative History of Present Illness (Text): 82yoM, with afib, with palpitations, sob, chest pain and lower extremity edema. 02/22/18 06:01 Time/Duration: 4-6 hours Symptom Onset: Gradual Quality: Aching Severity Level: 1 Activities at Onset: Rest Context: Sitting Past Medical History - Provider Review Nursing Documentation Reviewed: Yes - Travel History Have you recently traveled outside [place] w/in the past 3 mons?: No - Infectious Disease Hx of Infectious Diseases: None - Tetanus Immunization Tetanus Immunization: Up to Date - Cardiac Hx Cardiac Arrhythmia: Yes (23yrs ago) Hx [place]: Yes Hx Hypertension: Yes - Pulmonary Hx Respiratory Disorders: No - Neurological Hx Seizures: Yes (epilepsy) - HEENT Hx HEENT Disorder: No Other/Comment: uses eyeglasses,use dentures - Renal Hx Renal Disorder: No - Endocrine/Metabolic Hx Endocrine Disorders: No - Hematological/Oncological Hx Blood Disorders: No Other/Comment: 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 - Integumentary Hx Dermatological Disorder: No - Musculoskeletal/Rheumatological Hx Musculoskeletal Disorders: No Hx Falls: No - Gastrointestinal Hx Colostomy: Yes (2001) Other/Comment: rectal cancer - Genitourinary/Gynecological Hx Genitourinary Disorders: No - Psychiatric Hx Psychophysiologic Disorder: No Hx Depression: No Hx Emotional Abuse: No Hx Physical Abuse: No Hx Substance Use: No - Surgical History Hx Appendectomy: Yes Other/Comment: colostomy 2001 - Anesthesia Hx Anesthesia Reactions: No Hx Malignant Hyperthermia: No - Suicidal Assessment Feels Threatened In Home Enviroment: No Family/Social History - Physician Review Nursing Documentation Reviewed: Yes Family/Social History: No Known Family HX Smoking Status: Never Smoked Hx Alcohol Use: No Hx Substance Use: No Hx Substance Use Treatment: No Allergies/Home Meds Allergies/Adverse Reactions: Allergies No Known Allergies Allergy (Verified 02/22/18 05:10) Home Medications: Home Meds Medication Instructions Recorded Confirmed Aspirin [Aspir 81] 81 mg PO DAILY 11/12/13 02/22/18 Diltiazem Hydrochloride [Cardizem 360 mg PO DAILY 11/12/13 02/22/18 Cd] Metoprolol Succinate [Toprol XL] 25 mg PO BID 11/12/13 02/22/18 Phenytoin Sodium Extended 100 mg PO TID 11/12/13 02/22/18 [Dilantin] Furosemide [Lasix] 40 mg PO DAILY 02/22/18 02/22/18 Ranitidine HCl [Zantac] 150 mg PO DAILY 02/22/18 02/22/18 Review of Systems - Review of Systems Constitutional: Normal Eyes: Normal ENT: Normal Respiratory: SOB Cardiovascular: Chest Pain, Edema, PRESLEY. absent: Normal, Palpitations, Calf Pain , Orthopnea, Syncope, Other Gastrointestinal: Normal Genitourinary Male: Normal Musculoskeletal: Normal Skin: Normal Neurological: Normal Endocrine: Normal Hemo/Lymphatic: Normal Psychiatric: Normal Physical Exam Vital Signs Reviewed: Yes Vital Signs Temp Pulse Resp BP Pulse Ox 02/22/18 05:26 95 02/22/18 05:22 98.1 F 120 H 25 H 150/79 88 L Temperature: Afebrile Blood Pressure: Hypertensive Pulse: Tachycardic Respiratory Rate: Normal Appearance: Positive for: Well-Appearing, Non-Toxic, Comfortable Pain Distress: None Mental Status: Positive for: Alert and Oriented X 3 - Systems Exam Head: Present: Atraumatic, Normocephalic Pupils: Present: PERRL Extroacular Muscles: Present: EOMI Conjunctiva: Present: Normal Ears: Present: Normal Mouth: Present: Moist Mucous Membranes Pharnyx: Present: Normal Nose (External): Present: Atraumatic Nose (Internal): Present: Normal Inspection Neck: Present: Normal Range of Motion Respiratory/Chest: Present: Clear to Auscultation, Good Air Exchange Cardiovascular: Present: Regular Rate and Rhythm Abdomen: No: Tenderness, Distention, Normal Bowel Sounds, Peritoneal Signs, Rebound, Guarding, McBurney's Point Tender, Rovsing's Sign Present, Hernias, Feeding Tubes, Ostomy Tubes, Mass/Organomegaly, Scars, Other Lower Extremity: Present: Edema, NORMAL PULSES, Normal ROM, Swelling, Neurovascularly Intact, Capillary Refill < 2 s. No: Normal Inspection, CALF TENDERNESS, Cyanosis, Jane's Sign, Tenderness, Erythema, Deformity, Temperature Abnormalties, Other Neurological: Present: GCS=15, CN II-XII Intact, Speech Normal, Motor Func Grossly Intact Skin: Present: Warm, Normal Color Psychiatric: Present: Alert, Oriented x 3, Normal Insight, Normal Concentration Medical Decision Making ED Course and Treatment: 2yoM, with afib, with palpitations, sob, chest pain and lower extremity edema. ECG; atrial flutter wbc 4.8 hb 10 plt 86 similar to prior trop 0.05 bnp 4930 lactic acid 0.9 UA moderate leukocytes aspirin pt refused lasix pt refused iv zosyn d/w Dr. Fleming who accepted the patient for CHF exacerbation and stated consult Dr. Greenfield cardiology who was paged. Reassessment Condition: Re-examined, Improved - Lab Interpretations Lab Results: 02/22/18 05:50 02/22/18 05:50 Lab Results 02/22/18 06:39: Urine Color Yellow, Urine Appearance Sl cloudy, Urine pH 6.0, Ur Specific [place] 1.020, Urine Protein 30 H, Urine Glucose (UA) Negative, Urine Ketones Negative, Urine Blood Large H, Urine Nitrate Negative, Urine Bilirubin Negative, Urine Urobilinogen 0.2, Ur Leukocyte Esterase Moderate H, Urine RBC 5 - 10, Urine WBC 15 - 20, Ur Epithelial Cells 0 - 2, Urine Bacteria Few 02/22/18 05:50: pO2 37, VBG pH 7.34, VBG pCO2 56.0, VBG HCO3 30.2 H, VBG Total CO2 31.9 H, VBG O2 Sat (Calc) 71.4 H, VBG Base Excess 3.1 H, VBG Potassium 4.1, Sodium 141.0, Chloride 108.0 H, Glucose 145 H, Lactate 0.9, FiO2 21.0, Venous Blood Potassium 4.1 02/22/18 05:50: Sodium 146, Chloride 106, Potassium 4.2, Carbon Dioxide 28, Anion Gap 16, BUN 25 H, Creatinine 1.2, Est GFR ( Amer) > 60, Est GFR ( Non-Af Amer) 58, Random Glucose 134 H, Calcium 8.8, Magnesium 2.2, Total Bilirubin 0.7, AST 35, ALT 46, Alkaline Phosphatase 107, Lactate Dehydrogenase 642, Total Creatine Kinase 50, Troponin I 0.05 D, NT-Pro-B Natriuret Pep 4930 H , Total Protein 6.4, Albumin 4.1, Globulin 2.4, Albumin/Globulin Ratio 1.7 02/22/18 05:50: PT 11.8, INR 1.03, APTT 26.4 02/22/18 05:50: WBC 4.8, RBC 3.39 L, Hgb 10.4 L, Hct 31.8 L, MCV 93.8, MCH 30.7 , MCHC 32.7, RDW 15.5 H, Plt Count 86 L, MPV 8.5, Gran % 81.5 H, Lymph % (Auto) 5.6 L, [place] % (Auto) 12.3 H, Eos % (Auto) 0.4 L, Baso % (Auto) 0.2, Gran # 3.92 , Lymph # (Auto) 0.3 L, [place] # (Auto) 0.6, Eos # (Auto) 0.0, Baso # (Auto) 0.01 I have reviewed the lab results: Yes - RAD Interpretation Radiology Orders: 02/22/18 05:57 CHEST PORTABLE [RAD] Stat Procurement Professional Logistics: ED Physician (cxr w vascular markings) - EKG Interpretation Interpreted by ED Physician: Yes (atrial flutter) Type: 12 lead EKG Comparison: Similar to previous EKG (01/24/18) - Medication Orders Current Medication Orders: Piperacillin Sod/Tazobactam Sod (Zosyn 4.5 Gm In Ns 100ml) 4.5 gm in 100 mls @ 200 mls/hr IVPB STAT STA PRN Reason: Protocol Stop: 02/22/18 08:04 Discontinued Medications Aspirin (Aspirin) 325 mg PO STAT STA Stop: 02/22/18 05:57 Last Admin: 02/22/18 06:15 Dose: Not Given Non-Admin Reason: Patient Refused Furosemide (Lasix) 40 mg IVP STAT STA Stop: 02/22/18 06:06 Last Admin: 02/22/18 06:19 Dose: Not Given Non-Admin Reason: Patient Refused IVP Administration Document 02/22/18 06:19 MERARI (Rec: 02/22/18 06:19 [facility]-[id number]) Charges for Administration # of IVP Administrations 0 Disposition/Present on Arrival - Present on Arrival Any Indicators Present on Arrival: No History of DVT/PE: No History of Uncontrolled Diabetes: No Urinary Catheter: No History of Decub. Ulcer: No History Surgical Site Infection Following: None - Disposition Have Diagnosis and Disposition been Completed?: Yes Diagnosis: CHF (congestive heart failure) Disposition: HOSPITALIZED Disposition Time: 07:48 Patient Plan: Admission, Telemetry Condition: STABLE Discharge Instructions (ExitCare): Heart Failure (ED) Referrals: Tri Fleming MD [Primary Care Provider] - Follow up with primary Forms: [employer] ([employer]in[employer])
[2018-02-22 06:28] LABS: BASO # 0.01 K/mm3 (0.0-2.0); BASO % 0.2 % (0.0-3.0); EOS % 0.4 % (1.5-5.0); GRAN # 3.92 (1.4-6.5); GRAN % 81.5 % (50.0-68.0); HEMOGLOBIN 10.4 g/dL (14.0-18.0); LYMPH # 0.3 (1.2-3.4); LYMPH % 5.6 % (22.0-35.0); MEAN CELL VOLUME 93.8 fl (80.0-105.0); MEAN CORPUSCULAR HEMOGLOBIN 30.7 pg (25.0-35.0); MEAN CORPUSCULAR HGB CONC 32.7 g/dl (31.0-37.0); MEAN PLATELET VOLUME 8.5 fl (7.0-11.0); MONO # 0.6 (0.1-0.6); MONO % 12.3 % (1.0-6.0); RBC 3.39 10^6/uL (3.5-6.1); RED CELL DISTRIBUTION WIDTH 15.5 % (11.5-14.5); VENOUS BLOOD GAS BASE EXCESS 3.1 mmol/L (0.0-2.0); VENOUS BLOOD GAS PO2 37 mm/Hg (30-55); VENOUS BLOOD PH 7.34 (7.32-7.43); WHITE BLOOD COUNT 4.8 10^3/ul (4.5-11.0)
[2018-02-22 06:46] LABS: URINE BILIRUBIN NEGATIVE (NEGATIVE); URINE BLOOD LARGE (NEGATIVE); URINE GLUCOSE (UA) NEGATIVE (NEGATIVE); URINE LEUKOCYTE ESTERASE MODERATE Leu/uL (NEGATIVE); URINE PROTEIN 30 mg/dL (<30 mg/dL); URINE UROBILINOGEN 0.2 E.U./dL (<1 E.U./dL)
[2018-02-22 06:46] LABS: INR 1.03 (0.93-1.08); PARTIAL THROMBOPLASTIN TIME 26.4 Seconds (25.1-36.5); PROTHROMBIN TIME 11.8 SECONDS (9.4-12.5)
[2018-02-22 06:58] LABS: ALB/GLOB RATIO 1.7 (1.1-1.8); ALBUMIN 4.1 g/dL (3.0-4.8); ALT/SGPT 46 U/L (7-56); AST/SGOT 35 U/L (17-59); BLOOD UREA NITROGEN 25 mg/dL (7-21); CALCIUM 8.8 mg/dL (8.4-10.5); GFR AFRICAN-AMERICAN > 60; GFR NON-AFRICAN AMERICAN 58
[2018-02-22 07:02] LABS: B-TYPE NATRIURETIC PEPTIDE 4930 pg/mL (0-450); TROPONIN I 0.05 ng/mL
[2018-02-22 07:08] LABS: URINE APPEARANCE SL CLOUDY (CLEAR); URINE COLOR YELLOW (YELLOW)
[2018-02-22 07:13] LABS: URINE EPITHELIAL CELLS 0 - 2 /hpf (0-5); URINE WBC 15 - 20 /hpf (0-6)
[2018-02-22 07:14] LABS: URINE BACTERIA FEW (NEG)
[2018-02-22] MEDS ORDERED: Piperacill/Tazo 4.5gm in NS 4.5 GM/100 ML BAG IVPB STA (07:35)
--- NOTE | 2018-02-22 09:19 | RAD ---
HISTORY: 82yoM with sob, edema COMPARISON: 01/23/2018 FINDINGS: LUNGS: Vascular congestion and right lower lobe infiltrate PLEURA: No significant pleural effusion identified, no pneumothorax apparent. CARDIOVASCULAR: Normal. OSSEOUS STRUCTURES: No significant abnormalities. VISUALIZED UPPER ABDOMEN: Normal. OTHER FINDINGS: None. IMPRESSION: Vascular congestion and right lower lobe infiltrate
--- NOTE | 2018-02-22 10:28 | CARD ---
APPROVED REPORT EKG Measurement Heart [id number] <Conclusion> Atrial flutter with variable AV block Nonspecific ST and T wave abnormality Abnormal ECG
[2018-02-22] MEDS ORDERED: Pneumococcal 23-Valent Vaccine IM ONE (15:22)
[2018-02-22] MEDS: diltiaZEM 180 mg/24 Hours CD Cap PO SCH (15:55)
[2018-02-22] MEDS: cefTRIAXone 1 gm 1 GM/100 ML BAG IVPB SCH (15:56)
[2018-02-22] MEDS: Azithromycin 250 MG in Sodium Chloride 0.9% 250 ML IVPB SCH (17:18)
[2018-02-22] MEDS: Metoprolol Succinate 25 mg XL Tab PO SCH (17:18)
[2018-02-22] MEDS: Levalbuterol 1.25 MG/3 ML Inhal Soln UD IH SCH (20:15)
--- NOTE | 2018-02-22 23:32 | CON ---
DATE: 02/22/2018 LOCATION: The patient in room 275, bed 2. REASON FOR CONSULTATION: Shortness of breath, CHF, atrial fibrillation, hypertension, respiratory tract infection. HISTORY OF PRESENT ILLNESS: The patient is 82-year-old male who is known to have atrial fibrillation for many years, also hypertension, admitted with 2 weeks' history of shortness of breath on minimal exertion, also at times at rest Denied chest pain, denied palpitation. The patient states that he was started on PPI 2 weeks ago. Since then, he has been having these problems. He was told to have COPD one year ago. He has not consulted a pulmonary physician and not consulted a cardiology physician in the past. Denies any chest pain on exertion. PAST HISTORY: Positive for atrial fibrillation, hypertension, and COPD. PERSONAL HISTORY: The patient used to smoke 3 to 4 packs a day until 1990. Denies drinking. He also gives history that in 1990, he had a plain balloon angioplasty for coronary artery disease. ALLERGIES: THE PATIENT DENIES ANY ALLERGIES EXCEPT THAT HE IS BLAMING PPI FOR HIS SHORTNESS OF BREATH. LIST OF MEDICATIONS AT HOME: The patient was taking Zantac 150 daily, Lasix 40 daily, aspirin 81 daily, Toprol XL 25 mg b.i.d., diltiazem CD 360 p.o. daily, Dilantin 100 mg p.o. t.i.d. REVIEW OF SYSTEMS: All the systems reviewed, positive mentioned in the history, others were negative. PHYSICAL EXAMINATION: VITAL SIGNS: Blood pressure 144/90, respirations 20, pulse 80, temperature 98.2. HEENT: Head is normocephalic. Eyes: Pupils normal. Conjunctivae slightly pale. NECK: JVP low. Carotids equal. THORAX: AP diameter normal. LUNGS: Bilateral rales on both lungs. CARDIOVASCULAR: S1 and S2, regular rhythm due to atrial fibrillation. No rub. ABDOMEN: Soft. No tenderness. No organomegaly. EXTREMITIES: The patient has edema on both feet and lower leg. No cyanosis or clubbing. LABORATORY DATA: WBC 4.8, hemoglobin 10.4, hematocrit 31.8, and platelets 86. Sodium 146, potassium 4.2. BUN 25, creatinine 1.2. Magnesium 2.2. AST and ALT normal. NT-proB natriuretic peptide 4930. Total protein and albumin normal. Chest x-ray showed vascular congestion, has right lower lobe infiltrate. EKG showed atrial fibrillation. High voltage for LVH. Nonspecific ST-T changes. DIAGNOSES: Congestive heart failure, respiratory tract infection, pneumonia, history of chronic obstructive pulmonary disease, coronary artery disease, history of plain angioplasty in 1990 without any stent insertion, hypertension. PLAN: The patient is on diltiazem 360 p.o. daily, aspirin 81 daily, furosemide 40 IV daily, metoprolol 25 b.i.d. We will do echo and Doppler, and stress test will be done later once the patient's shortness of breath is improved. Also, we will put the patient on Rocephin and azithromycin for respiratory tract infection and we will follow closely with you. Gladis Faye MD
[2018-02-23] MEDS: Levalbuterol 1.25 MG/3 ML Inhal Soln UD IH SCH ×4 (02:20→19:44)
[2018-02-23 06:55] LABS: BASO # 0.01 K/mm3 (0.0-2.0); BASO % 0.3 % (0.0-3.0); EOS # 0.1 (0.0-0.7); EOS % 2.3 % (1.5-5.0); GRAN # 2.27 (1.4-6.5); GRAN % 66.6 % (50.0-68.0); HEMOGLOBIN 9.4 g/dL (14.0-18.0); LYMPH # 0.6 (1.2-3.4); LYMPH % 16.4 % (22.0-35.0); MEAN CELL VOLUME 94.1 fl (80.0-105.0); MEAN CORPUSCULAR HEMOGLOBIN 30.9 pg (25.0-35.0); MEAN CORPUSCULAR HGB CONC 32.9 g/dl (31.0-37.0); MEAN PLATELET VOLUME 8.2 fl (7.0-11.0); MONO # 0.5 (0.1-0.6); MONO % 14.4 % (1.0-6.0); RBC 3.04 10^6/uL (3.5-6.1); RED CELL DISTRIBUTION WIDTH 15.4 % (11.5-14.5); WHITE BLOOD COUNT 3.4 10^3/ul (4.5-11.0)
[2018-02-23 07:26] LABS: ALB/GLOB RATIO 1.4 (1.1-1.8); ALBUMIN 3.4 g/dL (3.0-4.8); ALT/SGPT 37 U/L (7-56); AST/SGOT 30 U/L (17-59); BLOOD UREA NITROGEN 23 mg/dL (7-21); CALCIUM 8.4 mg/dL (8.4-10.5); GFR AFRICAN-AMERICAN > 60; GFR NON-AFRICAN AMERICAN > 60
[2018-02-23 07:47] LABS: FREE T4 1.26 ng/dL (0.78-2.19)
--- NOTE | 2018-02-23 08:27 | HP ---
HISTORY OF PRESENT ILLNESS: The patient is 82 years old. He was recently admitted for hypopharyngeal pouch, food impaction, had endoscopically removed and was referred to ENT. The patient was found to have gastritis. He was started on Protonix, but he did not like the side effect. He . He thought this is causing the leg swelling, so he discontinued and started him on Zantac, he was experiencing the similar complaints including shortness of breath and leg swelling. He discontinued that also. He has been on Mylanta. The patient states he has been having cough, congestion, and some shortness of breath along with leg swelling and got worse, so he came to emergency room for further evaluation. Denies any fevers. Does complain of productive cough. Denies any nausea or vomiting. He has some throat discomfort and fullness at times. PAST MEDICAL HISTORY: Significant for; 1. Hypertension. 2. Seizure disorder. 3. History of CA colon, status post colectomy followed by colostomy. 4. History of abdominal aortic aneurysm. 5. Thrombocytopenia. Workup has been negative. 6. Status post appendectomy. ALLERGIES: NOT ALLERGIC TO ANY MEDICATIONS. MEDICATIONS AT HOME: He is on Dilantin 100 mg three times a day, diltiazem 360 daily, Lasix 40 mg daily, aspirin 81 daily, metoprolol 25 twice a day, and phenytoin 100 mg three times a day. SOCIAL HISTORY: He used to be a smoker in the past. Denies alcohol use. PHYSICAL EXAMINATION: GENERAL: The patient is awake, alert, oriented, communicative. VITAL SIGNS: The patient is afebrile, pulse is 99, respirations 20, and blood pressure 153/84. LUNGS: Bilateral few soft crackles at bases. HEART: S1 and S2 audible. ABDOMEN: Soft, nontender. No rebound. No guarding. NEUROLOGIC: The patient is awake and alert, able to communicate. LABORATORY DATA: WBC is 4.8, hemoglobin 10.4, hematocrit 31.8, and platelets of 86. Chemistries: Sodium 146, potassium 4.2, chloride 106, CO2 of 28. BUN 25, creatinine 1.2. Blood sugar 134. BNP 4930. Urinalysis shows moderate leukocytes and wbc's. X-ray chest was done that shows vascular congestion and right lower lobe infiltrate. EKG shows atrial flutter and nonspecific ST-T wave changes. ASSESSMENT: 1. Exertional dyspnea with leg swelling. 2. Atrial fibrillation. The patient was supposed to be started on anticoagulant, but because of his impending surgical intervention for his pharyngeal pouch, it was on hold, but the patient went to Dr. Montejo who told him that everything is okay. 3. Seizure disorder. 4. Hypertension. 5. Hyperlipidemia. 6. Status post colostomy. PLAN: The patient has been started on nebulizer treatment. He is on IV antibiotic. We will resume his usual medications. He has been started on Eliquis. He is on aspirin 81 daily. We will continue him on Lasix. I will order for SURYA boyd. Echocardiogram has been requested. We will follow up his Dilantin level in a.m. Follow up electrolytes in a.m. Tri Fleming MD
[2018-02-23] MEDS: diltiaZEM 180 mg/24 Hours CD Cap PO SCH (10:41)
[2018-02-23] MEDS: Metoprolol Succinate 25 mg XL Tab PO SCH ×2 (10:42→17:31)
[2018-02-23] MEDS: Azithromycin 250 MG in Sodium Chloride 0.9% 250 ML IVPB SCH (10:43)
--- NOTE | 2018-02-23 12:11 | CP.PCM.CON ---
History of Present Illness - History of Present Illness History of Present Illness: Seen and examined at the bedside earlier this morning, chart review. Requests GI consult is for esophagitis. HPI: This is an 82-year-old male with a past medical history of colon cancer status post colectomy with colostomy, was seen by our service back in January for foreign body, he had an endoscopy 01/22/18 found to have an esophageal stricture w/pharyngeal pouch, and foreign body extraction. He had esophagram which did not reveal any esophageal pouch or diverticulum. Patient was placed on PPI and reports that he experienced shortness of breath while on this medication he was switched over to Zantac by his PCP but he does not want to be on any medication He has been off of it for a weeks now. Patient has been evaluated by ENT, Dr. Montejo on the 02/09/2018 and patient endorses that everything was "fine", he was recommended to consume soft foods and chew well. He denies any symptoms of dysphagia. On discharge recommended puree diet for at least 2 months, he consumes foods that are soft and reports that he chews his food well. Denies nausea, vomiting, or abdominal pain. He came to the hospital with complaints of SOB, having lower extremity leg swelling, and coughing. CXR show show vascular congestion and pulmonary infiltrates. Past medical history: Rectal cancer, abdominal aneurysm, hypertension, seizures Surgical history: Colostomy, denies having colonoscopy only flex sigmoidoscopy years ago, appendectomy Allergies: No known drug allergies Medications: Reviewed as per MAR Family history: Noncontributory at this time Social history: Denies smoking, EtOH or illicit drugs ROS: Systems reviewed with positive finding see HPI Past Patient History - Infectious Disease Hx of Infectious Diseases: None - Tetanus Immunizations Tetanus Immunization: Up to Date - Past Social History Smoking Status: Former Smoker - CARDIAC Hx Cardiac Disorders: Yes (ANGIOPLASTY) Hx Cardia Arrhythmia: Yes (23yrs ago) Hx Circulatory Problems: Yes Hx Congestive Heart Failure: Yes Hx Hypertension: Yes Hx Peripheral Edema: Yes - PULMONARY Hx Respiratory Disorders: Yes (USED TO SMOKE CIGARETTES.QUIT 1990) - NEUROLOGICAL Hx Neurological Disorder: Yes Hx Seizures: Yes (epilepsy LAST SZ WAS 1990) - HEENT Hx HEENT Problems: Yes Other/Comment: uses eyeglasses,use dentures - RENAL Hx Chronic Kidney Disease: No - ENDOCRINE/METABOLIC Hx Endocrine Disorders: No - HEMATOLOGICAL/ONCOLOGICAL Hx Blood Disorders: Yes Hx Cancer: Yes (RECTAL CA) Other/Comment: 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 - MUSCULOSKELETAL/RHEUMATOLOGICAL Hx Musculoskeletal Disorders: No Hx Falls: Yes - GASTROINTESTINAL Hx Gastrointestinal Disorders: Yes Hx Colostomy: Yes (2001) Hx Gastroesophageal Reflux: Yes HX Swallowing Problems: Yes Other/Comment: rectal cancer - GENITOURINARY/GYNECOLOGICAL Hx Genitourinary Disorders: Yes (UNDESCENDED TESTICLE) - PSYCHIATRIC Hx Psychophysiologic Disorder: No Hx Depression: No Hx Emotional Abuse: No Hx Physical Abuse: No Hx Substance Use: No - SURGICAL HISTORY Hx Surgeries: Yes (TONSILLECTOMY,ANGIOPLASTY,) Hx Appendectomy: Yes Other/Comment: colostomy 2001 - ANESTHESIA Hx Anesthesia Reactions: No Hx Malignant Hyperthermia: No Meds Allergies/Adverse Reactions: Allergies Allergy/AdvReac Type Severity Reaction Status Date / Time No Known Allergies Allergy Verified 02/22/18 12:07 - Medications Medications: Current Medications Apixaban (Eliquis) 2.5 mg PO BID [facility] PRN Reason: Protocol Last Admin: 02/23/18 10:42 Dose: 2.5 mg Aspirin (Ecotrin) 81 mg PO DAILY [facility] Last Admin: 02/23/18 10:42 Dose: 81 mg Diltiazem HCl (Cardizem Cd) 360 mg PO DAILY [facility] Last Admin: 02/23/18 10:41 Dose: 360 mg Furosemide (Lasix) 40 mg IVP DAILY [facility] Last Admin: 02/23/18 10:42 Dose: 40 mg Ceftriaxone Sodium (Rocephin 1 Gram Ivpb) 1 gm in 100 mls @ 100 mls/hr IVPB DAILY [facility] PRN Reason: Protocol Last Admin: 02/22/18 15:56 Dose: 100 mls/hr Azithromycin 250 mg/ Sodium (Chloride) 250 mls @ 167 mls/hr IVPB DAILY [facility] PRN Reason: Protocol Last Admin: 02/23/18 10:43 Dose: 167 mls/hr Levalbuterol HCl (Xopenex) 1.25 mg IH [id number] [facility] Last Admin: 02/23/18 07:41 Dose: 1.25 mg Metoprolol Succinate (Toprol Xl) 25 mg PO BID [facility] Last Admin: 02/23/18 10:42 Dose: 25 mg Phenytoin Sodium (Dilantin) 100 mg PO TID [facility] Last Admin: 02/23/18 10:42 Dose: 100 mg Physical Exam - Constitutional Appears: No Acute Distress - Head Exam Head Exam: NORMOCEPHALIC - Eye Exam Eye Exam: Normal appearance. absent: Scleral icterus - ENT Exam ENT Exam: Mucous Membranes Moist - Neck Exam Neck exam: Positive for: Normal Inspection - Respiratory Exam Respiratory Exam: NORMAL BREATHING PATTERN. absent: Respiratory Distress - Cardiovascular Exam Cardiovascular Exam: +S1, +S2 - GI/Abdominal Exam GI & Abdominal Exam: Normal Bowel Sounds, Soft. absent: Guarding, Organomegaly , Rebound, Tenderness Additional comments: (+) colostomy, no bleeding - Extremities Exam Extremities exam: Positive for: pedal edema, pedal pulses present. Negative for : calf tenderness - Neurological Exam Neurological exam: Alert, Oriented x3 - Skin Skin Exam: Dry, Warm Results - Vital Signs Recent Vital Signs: Last Vital Signs Temp 98.3 F 02/23/18 06:00 Pulse 100 H 02/23/18 10:41 Resp 20 02/23/18 06:00 BP 125/76 02/23/18 10:42 Pulse Ox 99 02/23/18 06:00 - Labs Result Diagrams: 02/23/18 06:30 02/23/18 06:30 Labs: Laboratory Results - last 24 hr 02/23/18 02/23/18 02/23/18 06:30 06:30 06:30 WBC 3.4 L D RBC 3.04 L Hgb 9.4 L Hct 28.6 L MCV 94.1 MCH 30.9 MCHC 32.9 RDW 15.4 H Plt Count 69 L MPV 8.2 Gran % 66.6 Lymph % (Auto) 16.4 L [place] % (Auto) 14.4 H Eos % (Auto) 2.3 Baso % (Auto) 0.3 Gran # 2.27 Lymph # (Auto) 0.6 L [place] # (Auto) 0.5 Eos # (Auto) 0.1 Baso # (Auto) 0.01 Sodium 146 Potassium 3.9 Chloride 107 Carbon Dioxide 27 Anion Gap 16 BUN 23 H Creatinine 1.1 Est GFR ( Amer) > 60 Est GFR (Non-Af Amer) > 60 Random Glucose 114 H Calcium 8.4 Total Bilirubin 0.4 AST 30 ALT 37 Alkaline Phosphatase 90 Total Protein 5.7 L Albumin 3.4 Globulin 2.3 Albumin/Globulin Ratio 1.4 Prostate Specific Ag 7.4 H Free T4 1.26 TSH 3rd Generation 1.62 Phenytoin 02/23/18 06:30 WBC RBC Hgb Hct MCV MCH MCHC RDW Plt Count MPV Gran % Lymph % (Auto) [place] % (Auto) Eos % (Auto) Baso % (Auto) Gran # Lymph # (Auto) [place] # (Auto) Eos # (Auto) Baso # (Auto) Sodium Potassium Chloride Carbon Dioxide Anion Gap BUN Creatinine Est GFR ( Amer) Est GFR (Non-Af Amer) Random Glucose Calcium Total Bilirubin AST ALT Alkaline Phosphatase Total Protein Albumin Globulin Albumin/Globulin Ratio Prostate Specific Ag Free T4 TSH 3rd Generation Phenytoin 8 L Assessment & Plan - Assessment and Plan (Free Text) Assessment: ASSESSMENT: Elevated BNP/CHF H/O colon cancer, s/p colectomy/colostomy Esophageal Stricture, h/o foreign body/esophageal diverticulum Thrombocytopenia Atrial Fibrillation Seizure disorder Elevated BNP, features of CHF, SOB, LE swelling PLAN: on soft foods on IV antibiotics on Eliquis and Aspirin as per cardiology may benefit from repeat EGD when optimal refuse PPI/H2B, did discuss w/ patient regarding side effects that can occur w/ PPI, especially chronic use Thank you for this consultation for labs participating in your patient's care, further recommendations based upon clinical course. Seen and discussed with Dr. Hinton
--- NOTE | 2018-02-23 12:27 | CT ---
PROCEDURE: CT Chest without contrast HISTORY: sob COMPARISON: 01/22/2018 CT TECHNIQUE: Contiguous axial images were obtained through the chest without intravenous contrast enhancement. Sagittal and coronal reconstructions were performed. Radiation dose (DLP): 500 mGy-cm. This CT exam was performed using one or more of the following dose reduction techniques: Automated exposure control, adjustment of the mA and/or kV according to patient size, and/or use of iterative reconstruction technique. FINDINGS: LUNGS: There is an infiltrate in the posterior right upper lobe adjacent to the major fissure. There is focal consolidation in the right lower lobe adjacent to the pleural effusion. There is some peribronchial thickening in the left lower lobe. There is volume loss in the left lung. Chronic emphysema MEDIASTINUM: Unremarkable thoracic aorta. No aneurysm. Normal sized heart. Main pulmonary artery unremarkable. No vascular congestion. No lymphadenopathy. Coronary artery calcification. PLEURA: Moderate size right effusion. Small left effusion. BONES: No fracture. No destructive lesion. UPPER ABDOMEN: Renal stones are seen on the left the largest measuring 10 mm. There is an infrarenal abdominal aortic aneurysm measuring 4.7 cm. OTHER FINDINGS: None. IMPRESSION: Moderate pleural effusion on the right and small effusion on the left. Focal subsegmental consolidation at the right lung base adjacent to the effusion. There is an infiltrate along the major fissure in the posterior right upper lobe.
--- NOTE | 2018-02-23 14:41 | PN ---
DATE: 02/23/2018 REASON FOR CONSULTATION AND FOLLOWUP: Shortness of breath, CHF, atrial fibrillation, hypertension, respiratory tract infection. BRIEF CLINICAL HISTORY: An 82-year-old male, known to have for many years of hypertension. Admitted with shortness of breath. Also, the patient has a history of abdominal aortic aneurysm, being followed by Dr. Du with serial ultrasound and CAT scan. Denies any chest pain. Shortness of breath significantly improved. Also, the patient dropped plate in the right foot and the demarcation and cellulitis and bruised in the right foot noted. SUBJECTIVE: Not in apparent distress. OBJECTIVE: GENERAL: Not in apparent distress. Bruise noted in right foot. VITAL SIGNS: Temperature afebrile, heart rate 94, blood pressure 152/86. HEENT: PERRLA. Extraocular muscles intact. NECK: Supple. No carotid bruit. No thyromegaly. CHEST: Clear to auscultation. HEART: S1 and S2 regular. ABDOMEN: Soft. EXTREMITIES: Clubbing and cyanosis negative. LABORATORY DATA: Blood workup as follows; WBC 3.4, hemoglobin 9.5, hematocrit 28.6, platelet count 69. Chemistry shows sodium 143, potassium 3.9, chloride 107, carbon dioxide 27, anion gap of 15, BUN 23, creatinine 1.1. Prostate-specific antigen is 7.4. TSH 1.62. IMPRESSION: Chronic atrial fibrillation, congestive heart failure, respiratory tract infection, possible pneumonia, chronic obstructive pulmonary disease, coronary artery disease, history of plain angioplasty in 1990 without any stent in the past, hypertension, thrombocytopenia. I am not sure why the patient was not on anticoagulation for atrial fibrillation. Started yesterday by Dr. Faye. Continue Cardizem CD 360 mg. Continue phenytoin. History of seizure disorder, gentle Lasix. We will get the echocardiogram to assess left ventricular function. The patient had a stress test 2-3 years ago. We will order a stress test as outpatient because the patient had dropped the plate and bruised and trauma to the right foot. We will wait till the symptoms of right foot subsides. We will also order the CAT scan of the abdomen for the abdominal aortic aneurysm. Since the patient has ultrasound of the abdomen, so we will repeat with ultrasound to follow up for the first with ultrasound because the patient want to avoid the CAT scan because of the radiation concern, so initially I said that we will do CAT scan, but in view of above since the patient has a previous measurement from the ultrasound, repeat the ultrasound of the abdomen and follow up with an echocardiogram and stress test as outpatient in 4 weeks when the patient can walk on the treadmill. Gladis Greenfield MD
[2018-02-23] MEDS: cefTRIAXone 1 gm 1 GM/100 ML BAG IVPB SCH (14:58)
--- NOTE | 2018-02-23 17:02 | PN ---
DATE: 02/23/2018 SUBJECTIVE: Patient is 82 years old, seen and examined, stated his shortness of breath is better. Denies any palpitations. Leg swelling has improved. PHYSICAL EXAMINATION: VITAL SIGNS: He is afebrile, pulse 94, respirations 20, blood pressure 125/76. LUNGS: Bilateral fair airflow. No rhonchi or crackles. HEART: S1 and S2 audible, regular rate control. ABDOMEN: Soft, nontender. No rebound. No guarding. EXTREMITIES: Bilateral legs, +1 edema. LABORATORY DATA: WBC 3.4, hemoglobin 9.4, hematocrit 28.6, platelets 69 that is chronic. Chemistry: Sodium 146, potassium 3.9, chloride 107, CO2 of 27. BUN 23, creatinine 1.1. Blood sugar of 114. PSA is 7.4. CT scan of the chest is done that shows moderate pleural effusion in the right and small effusion in the left. Focal subsegmental consolidation in the right lung base adjacent to the effusion. There is infiltrate along the major fissure in the posterior right lung. ASSESSMENT: 1. Right lower lobe pneumonia. 2. Pleural effusion. 3. Atrial fibrillation. 4. History of smoking for 40 years, probably has chronic obstructive pulmonary disease also. 5. Seizure disorder. 6. History of cancer of colon, status post colostomy. 7. Pharyngeal pouch status post impaction and foreign body has to be removed by endoscopy. PLAN: We will continue patient on nebulizer treatment. He is on diltiazem. He is on aspirin. He is on Eliquis 2.5 b.i.d. He is on Lasix 40 IV daily and continue him on Xopenex. He is on Zithromax and Rocephin. We will continue that. I will request for SURYA boyd. We will follow up this patient. Tri Fleming MD
--- NOTE | 2018-02-23 18:05 | US ---
PROCEDURE: 1. Duplex ultrasound of the abdominal aorta. HISTORY: Abdominal aortic aneurysm. PHYSICIAN(S): Bill Eduardo MD. FINDINGS: Portions of the abdominal aorta obscured by a bowel gas. There is a fusiform aneurysm of the distal abdominal aorta. The aneurysm measures 5.4 cm in greatest transverse dimension. A significant amount of mural thrombus is present. The proximal common iliac arteries are ectatic, measuring 14-16 mm. IMPRESSION: 1. 5.4 cm distal abdominal aortic aneurysm. This can be confirmed and evaluated with a CTA with IV contrast if clinically indicated.
[2018-02-24] MEDS: Levalbuterol 1.25 MG/3 ML Inhal Soln UD IH SCH ×4 (01:18→19:48)
[2018-02-24] MEDS ORDERED: Iohexol 350 MG/100 ML VIAL ONE (09:26)
[2018-02-24] MEDS: Metoprolol Succinate 25 mg XL Tab PO SCH ×2 (10:22→18:12)
[2018-02-24] MEDS: diltiaZEM 180 mg/24 Hours CD Cap PO SCH (10:22)
[2018-02-24] MEDS: cefTRIAXone 1 gm 1 GM/100 ML BAG IVPB SCH (10:23)
--- NOTE | 2018-02-24 10:38 | CT ---
PROCEDURE: CT Abdomen and Pelvis with contrast HISTORY: abdominal aortic aneurysm COMPARISON: None. TECHNIQUE: Contrast dose: 100 cc of Omni 350 Radiation dose: Total exam DLP = 421 mGy-cm. This CT exam was performed using one or more of the following dose reduction techniques: Automated exposure control, adjustment of the mA and/or kV according to patient size, and/or use of iterative reconstruction technique. FINDINGS: LOWER THORAX: There is a moderate size right pleural effusion. There is focal consolidation in the adjacent right lower lobe. LIVER: Unremarkable. No gross lesion or ductal dilatation. GALLBLADDER AND BILE DUCTS: Unremarkable. PANCREAS: Unremarkable. No gross lesion or ductal dilatation. SPLEEN: Unremarkable. ADRENALS: Unremarkable. No mass. KIDNEYS AND URETERS: Bilateral renal stones with the largest stones measuring 11 mm in diameter. There is no evidence of hydronephrosis VASCULATURE: There is a large infrarenal abdominal aortic aneurysm measuring 5.6 cm wide by 5.2 cm AP x 10 cm in length. There is a moderate amount of mural thrombus. The iliac arteries are mildly dilated. BOWEL: Unremarkable. No obstruction. No gross mural thickening. There is an ostomy in the left lower quadrant APPENDIX: Normal appendix. PERITONEUM: Unremarkable. No free fluid. No free air. LYMPH NODES: Unremarkable. No enlarged lymph nodes. BLADDER: Unremarkable. REPRODUCTIVE: The prostate is enlarged and partially calcified measuring 5.9 cm wide by 5.6 cm AP BONES: No acute fracture. OTHER FINDINGS: None. IMPRESSION: There is a large infrarenal abdominal aortic aneurysm measuring 5.6 cm wide by 5.2 cm AP x 10 cm in length. There is a moderate amount of mural thrombus. The iliac arteries are mildly dilated.
--- NOTE | 2018-02-24 14:21 | PN ---
DATE: 02/24/2018 REASON FOR CONSULTATION AND FOLLOWUP: Shortness of breath, CHF, atrial fibrillation, hypertension, respiratory tract infection. SUBJECTIVE: The patient denies any chest pain, shortness of breath, or any palpitation. PHYSICAL EXAMINATION: VITAL SIGNS: Temperature afebrile, heart rate 79, blood pressure 137/82. HEENT: PERRLA. Extraocular muscles intact. NECK: Supple. No carotid bruit or thyromegaly. CHEST: Clear to auscultation. HEART: S1 and S2, regular. ABDOMEN: Soft. EXTREMITIES: Clubbing and cyanosis negative. LABORATORY DATA: WBC 3.4, hemoglobin 9.4, hematocrit 28.6, platelet count 69. Chemistry shows sodium 143, potassium 3.9, chloride 106, carbon dioxide 27, anion gap of 16. BUN 23, creatinine 1.1. Total protein 5.7, albumin 3.4, albumin-globulin ratio 1.4. PSA 7.4, TSH 1.62. Ultrasound of the abdomen done yesterday. The patient's history of abdominal aortic aneurysm, found to be 5.4 cm distal abdominal aortic aneurysm, can be confirmed with CT IV contrast indicated. Significant mural thrombosis also noted. The patient had CT chest done that shows possible infiltrate. Focal segmental consolidation of right upper lobe adjacent to the major fissure. IMPRESSION: An 82-year-old male with history of chronic atrial fibrillation, was not on anticoagulation, history of abdominal aortic aneurysm, admitted with shortness of breath, mild congestive heart failure, respiratory tract infection, possible pneumonia. By CAT scan confirmed pneumonia, chronic obstructive pulmonary disease, coronary artery disease, history of plain balloon angioplasty in 1990 without any stent in the past, hypertension, thrombocytopenia, was not on anticoagulation, started yesterday as an outpatient. He is on Cardizem seizure disorder, started on Lasix and IV antibiotics. CAT scan of the chest confirms with infiltrate in right upper lobe. Ultrasound of the abdomen shows 5.4 cm abdominal aortic aneurysm. Last ultrasound of the abdomen dated here 05/14/2013, there is a 3.6 cm fusiform dated 2012. Over a period of 5 years, it grew 2 cm. RECOMMENDATION: We will get CTA abdomen with IV contrast to see mural thrombosis in exactly size of the abdominal aortic aneurysm. Continue antibiotic, continue gentle diuretics, started low dose of Eliquis. Echo to assess LV function. A stress test as an outpatient, as the patient dropped a plate on his right feet, cannot walk on the treadmill. We will wait stress test as outpatient. Continue antibiotics. We will discontinue telemetry. We will get also lipid profile and hemoglobin A1c. We will repeat the blood workup in the morning. We will get CTA abdomen with contrast, continue 2.5 mg of Eliquis, monitor H and H, monitor platelet count. We will follow with you. Thank you Dr. Fleming, for providing us the opportunity in taking care of the patient, Alexia. Gladis Greenfield MD
--- NOTE | 2018-02-24 15:16 | CP.PCM.CON ---
History of Present Illness - History of Present Illness History of Present Illness: PGY-1 Vascular Surgery Consult Note for Dr. Grullon Reason for consult: Abdominal Aortic Aneurysm This is an 82 year old male with PMHx Rectal cancer s/p resection and colostomy , Abdominal Aortic Aneurysm, HTN, GERD, Zenker's Diverticulum, atrial fibrillation (was not on any anticoagulation), seizure disorder who presented to the hospital for shortness of breath and chest pain. These symptoms have since resolved. Surgery was consulted for the infrarenal abdominal aortic aneurysm that was measured 5.9 cm wide by 10 cm long by 5.[address] scan on this admission. Patient states that the last time he had it checked was a couple of years ago but does not remember the dimensions at that time. Patient reports that he is doing well at this time and has no chest pain, dyspnea, abdominal pain or any other complaints. PMHx: Rectal cancer s/p resection, abdominal aortic aneurysm, hypertension, seizures, GERD, Zenker's Diverticulum, Atrial Fibrillation PSHx: Resection of rectal cancer with colostomy in 2001, appendectomy, balloon angioplasty without stents in 1990 Allergies: NKDA Social: Smoked for 40 years about 4 packs per day and quit in 1990. Denies alcohol or drugs. Review of Systems - Constitutional Constitutional: absent: Chills, Fever - EENT Eyes: absent: Change in Vision Ears: absent: Decreased Hearing Nose/Mouth/Throat: absent: Nasal Congestion - Cardiovascular Cardiovascular: absent: Chest Pain - Respiratory Respiratory: absent: Dyspnea - Gastrointestinal Gastrointestinal: absent: Abdominal Pain, Nausea, Vomiting - Genitourinary Genitourinary: absent: Dysuria - Musculoskeletal Musculoskeletal: absent: Back Pain - Integumentary Integumentary: absent: Rash - Neurological Neurological: absent: Weakness - Psychiatric Psychiatric: absent: Anxiety - Endocrine Endocrine: absent: Palpitations Past Patient History - Infectious Disease Hx of Infectious Diseases: None - Tetanus Immunizations Tetanus Immunization: Up to Date - Past Social History Smoking Status: Former Smoker - CARDIAC Hx Cardiac Disorders: Yes (ANGIOPLASTY) Hx Cardia Arrhythmia: Yes (23yrs ago) Hx Circulatory Problems: Yes Hx Congestive Heart Failure: Yes Hx Hypertension: Yes Hx Peripheral Edema: Yes - PULMONARY Hx Respiratory Disorders: Yes (USED TO SMOKE CIGARETTES.QUIT 1990) - NEUROLOGICAL Hx Neurological Disorder: Yes Hx Seizures: Yes (epilepsy LAST SZ WAS 1990) - HEENT Hx HEENT Problems: Yes Other/Comment: uses eyeglasses,use dentures - RENAL Hx Chronic Kidney Disease: No - ENDOCRINE/METABOLIC Hx Endocrine Disorders: No - HEMATOLOGICAL/ONCOLOGICAL Hx Blood Disorders: Yes Hx Cancer: Yes (RECTAL CA) Other/Comment: 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 - MUSCULOSKELETAL/RHEUMATOLOGICAL Hx Musculoskeletal Disorders: No Hx Falls: Yes - GASTROINTESTINAL Hx Gastrointestinal Disorders: Yes Hx Colostomy: Yes (2001) Hx Gastroesophageal Reflux: Yes HX Swallowing Problems: Yes Other/Comment: rectal cancer - GENITOURINARY/GYNECOLOGICAL Hx Genitourinary Disorders: Yes (UNDESCENDED TESTICLE) - PSYCHIATRIC Hx Psychophysiologic Disorder: No Hx Depression: No Hx Emotional Abuse: No Hx Physical Abuse: No Hx Substance Use: No - SURGICAL HISTORY Hx Surgeries: Yes (TONSILLECTOMY,ANGIOPLASTY,) Hx Appendectomy: Yes Other/Comment: colostomy 2001 - ANESTHESIA Hx Anesthesia Reactions: No Hx Malignant Hyperthermia: No Meds Allergies/Adverse Reactions: Allergies Allergy/AdvReac Type Severity Reaction Status Date / Time No Known Allergies Allergy Verified 02/22/18 12:07 - Medications Medications: Current Medications Apixaban (Eliquis) 2.5 mg PO BID [facility] PRN Reason: Protocol Last Admin: 02/24/18 10:23 Dose: 2.5 mg Aspirin (Ecotrin) 81 mg PO DAILY [facility] Last Admin: 02/24/18 10:22 Dose: 81 mg Azithromycin (Zithromax) 250 mg PO DAILY [facility] Stop: 02/27/18 13:31 Last Admin: 02/24/18 10:22 Dose: 250 mg Diltiazem HCl (Cardizem Cd) 360 mg PO DAILY [facility] Last Admin: 02/24/18 10:22 Dose: 360 mg Furosemide (Lasix) 40 mg IVP DAILY [facility] Last Admin: 02/24/18 10:23 Dose: 40 mg Ceftriaxone Sodium (Rocephin 1 Gram Ivpb) 1 gm in 100 mls @ 100 mls/hr IVPB DAILY [facility] PRN Reason: Protocol Last Admin: 02/24/18 10:23 Dose: 100 mls/hr Levalbuterol HCl (Xopenex) 1.25 mg IH [id number] [facility] Last Admin: 02/24/18 14:03 Dose: 1.25 mg Metoprolol Succinate (Toprol Xl) 25 mg PO BID [facility] Last Admin: 02/24/18 10:22 Dose: 25 mg Phenytoin Sodium (Dilantin) 100 mg PO TID [facility] Last Admin: 02/24/18 14:08 Dose: 100 mg Physical Exam - Constitutional Appears: No Acute Distress - Head Exam Head Exam: ATRAUMATIC, NORMOCEPHALIC - Eye Exam Eye Exam: EOMI, Normal appearance - ENT Exam ENT Exam: Mucous Membranes Moist - Respiratory Exam Respiratory Exam: NORMAL BREATHING PATTERN. absent: Respiratory Distress - Cardiovascular Exam Cardiovascular Exam: Irregular Rhythm, +S1, +S2 - GI/Abdominal Exam GI & Abdominal Exam: Normal Bowel Sounds, Soft. absent: Tenderness Additional comments: Left sided ostomy - Extremities Exam Extremities exam: Positive for: pedal edema (pitting edema) Additional comments: Bruising on right foot along the phalanges Bilateral DP/PT pulses obtained with doppler - Neurological Exam Neurological exam: Alert, Oriented x3 - Psychiatric Exam Psychiatric exam: Normal Affect, Normal Mood - Skin Skin Exam: Dry, Warm Results - Vital Signs Recent Vital Signs: Last Vital Signs Temp 97.8 F 02/24/18 11:55 Pulse 96 H 02/24/18 14:20 Resp 18 02/24/18 11:55 BP 157/82 H 02/24/18 11:55 Pulse Ox 97 02/24/18 05:51 - Labs Result Diagrams: 02/23/18 06:30 02/23/18 06:30 Assessment & Plan - Assessment and Plan (Free Text) Assessment: This is an 82 year old male with PMHx Rectal cancer s/p resection and colostomy , HTN, GERD, Zenker's Diverticulum, atrial fibrillation (was not on any anticoagulation), seizure disorder with infrarenal abdominal aortic aneurysm that was measured 5.9 cm wide by 10 cm long by 5.[address] scan on this admission. Plan: Aneurysm has been increasing in size since last documented on file in 2011 (3.6 cm wide.) Patient meets indications for abdominal aortic aneurysm repair Will discuss surgical planning with Dr. Grullon and the patient Further recs per Dr. Mitchel Foster PGY-1
--- NOTE | 2018-02-24 17:36 | PN ---
DATE: 02/24/2018 SUBJECTIVE: Patient is 82 years old, seen and examined, lying in bed, seems to be comfortable, less shortness of breath. He states the leg swelling seems to be improving. Denies any nausea or vomiting. No diarrhea. PHYSICAL EXAMINATION: VITAL SIGNS: The patient is afebrile, pulse 72, respirations 18, blood pressure 157/82. LUNGS: Bilateral fair airflow. No rhonchi or crackles. HEART: S1 and S2 audible, regular rate control. ABDOMEN: Soft, nontender. Colostomy in place. EXTREMITIES: Bilateral legs, +1 edema, left more than the right. LABORATORY DATA: WBC is 3.4, hemoglobin 9.4, hematocrit 28.6, platelet of 69. Chemistry: Sodium 146, potassium 3.9, chloride 107, CO2 of 27. BUN 23, creatinine 1.1. Blood sugar of 114. The patient had CT scan of the abdomen and pelvis done that shows there is a large infrarenal abdominal aortic aneurysm measuring 5.6 cm x 5.2 cm and 10 cm in length. There is moderate amount of mural thrombus. The Iliac arteries are also mildly dilated. CT scan of the chest shows moderate pleural effusion on the right and small effusion on the left. Focal and subsegmental consolidation in the right lung base. ASSESSMENT AND PLAN: 1. Right lower lobe pneumonia. 2. Small pleural effusion. 3. Atrial fibrillation. 4. Status post colostomy. 5. History of heavy smoking in the past. 6. Infrarenal aortic aneurysm. PLAN: Continue the patient on diuretics. He is currently on Cardizem. He is on aspirin and Eliquis. We will continue him on IV Lasix. He is on Zithromax and Rocephin. I will request evaluation by Dr. Qi Grullon for aortic aneurysm. We will followup electrolyte and we will talk to Dr. Hinton. If we can communicate with Dr. Montejo for the pharyngeal pouch issue to be resolved if he need any intervention because the patient did visit Dr. Montejo and he said if everything is okay, then no intervention is needed. Tri Fleming MD [facility] # [id number]
--- NOTE | 2018-02-24 17:38 | CP.PCM.PN ---
<Jamaal,Kovil V - Last Filed: 02/24/18 23:52> Objective - Vital Signs/Intake and Output Vital Signs (last 24 hours): Temp Pulse Resp BP Pulse Ox 98.2 F 99 H 20 131/68 97 02/24/18 18:00 02/24/18 18:12 02/24/18 18:00 02/24/18 18:12 02/24/18 05:51 Intake and Output: 02/24/18 02/25/18 18:59 06:59 Intake Total 100 Balance 100 - Medications Medications: Current Medications Apixaban (Eliquis) 2.5 mg PO BID [facility] PRN Reason: Protocol Last Admin: 02/24/18 18:12 Dose: 2.5 mg Aspirin (Ecotrin) 81 mg PO DAILY [facility] Last Admin: 02/24/18 10:22 Dose: 81 mg Azithromycin (Zithromax) 250 mg PO DAILY [facility] Stop: 02/27/18 13:31 Last Admin: 02/24/18 10:22 Dose: 250 mg Diltiazem HCl (Cardizem Cd) 360 mg PO DAILY [facility] Last Admin: 02/24/18 10:22 Dose: 360 mg Furosemide (Lasix) 40 mg IVP DAILY [facility] Last Admin: 02/24/18 10:23 Dose: 40 mg Ceftriaxone Sodium (Rocephin 1 Gram Ivpb) 1 gm in 100 mls @ 100 mls/hr IVPB DAILY [facility] PRN Reason: Protocol Last Admin: 02/24/18 10:23 Dose: 100 mls/hr Levalbuterol HCl (Xopenex) 1.25 mg IH [id number] [facility] Last Admin: 02/24/18 19:48 Dose: 1.25 mg Metoprolol Succinate (Toprol Xl) 25 mg PO BID [facility] Last Admin: 02/24/18 18:12 Dose: 25 mg Phenytoin Sodium (Dilantin) 100 mg PO TID [facility] Last Admin: 02/24/18 18:12 Dose: 100 mg - Labs Labs: 02/24/18 21:46 02/23/18 06:30 PT 11.8 SECONDS (9.4-12.5) 02/22/18 05:50 INR 1.03 (0.93-1.08) 02/22/18 05:50 APTT 26.4 Seconds (25.1-36.5) 02/22/18 05:50 Attending/Attestation - Attestation I have personally seen and examined this patient.: Yes I have fully participated in the care of the patient.: Yes I have reviewed all pertinent clinical information, including history, physical exam and plan: Yes Notes (Text): This is an addendum to GI progress report dictated by Zully Phan APN.The patient was seen and examined earlier. Medical records, lab studies, imagings were reviewed. Last 24 hours events reviewed. Agreed with the above treatment plan as outlined in Zully Phan APN's notes the with the addition of the following 02/24/18 23:52 <Zully Phan J - Last Filed: 02/25/18 08:42> Subjective - Date & Time of Evaluation Date of Evaluation: 02/24/18 Time of Evaluation: 11:20 - Subjective Subjective: Seen and examined at the bedside earlier today, chart reviewed. Patient denies any symptoms of nausea, vomiting, shortness of breath chest pain or dysphagia. Tolerating oral intake. Patient has colostomy reporting bowel movements but slightly looser today no bleeding noted. Denies abdominal pain. Objective - Vital Signs/Intake and Output Vital Signs (last 24 hours): Temp Pulse Resp BP Pulse Ox 97.8 F 72 18 157/82 H 97 02/24/18 11:55 02/24/18 11:55 02/24/18 11:55 02/24/18 11:55 02/24/18 05:51 Intake and Output: 02/24/18 02/24/18 06:59 18:59 Intake Total 600 Output Total 1450 Balance -850 - Medications Medications: Current Medications Apixaban (Eliquis) 2.5 mg PO BID [facility] PRN Reason: Protocol Last Admin: 02/24/18 10:23 Dose: 2.5 mg Aspirin (Ecotrin) 81 mg PO DAILY [facility] Last Admin: 02/24/18 10:22 Dose: 81 mg Azithromycin (Zithromax) 250 mg PO DAILY [facility] Stop: 02/27/18 13:31 Last Admin: 02/24/18 10:22 Dose: 250 mg Diltiazem HCl (Cardizem Cd) 360 mg PO DAILY [facility] Last Admin: 02/24/18 10:22 Dose: 360 mg Furosemide (Lasix) 40 mg IVP DAILY [facility] Last Admin: 02/24/18 10:23 Dose: 40 mg Ceftriaxone Sodium (Rocephin 1 Gram Ivpb) 1 gm in 100 mls @ 100 mls/hr IVPB DAILY [facility] PRN Reason: Protocol Last Admin: 02/24/18 10:23 Dose: 100 mls/hr Levalbuterol HCl (Xopenex) 1.25 mg IH [id number] [facility] Last Admin: 02/24/18 08:07 Dose: 1.25 mg Metoprolol Succinate (Toprol Xl) 25 mg PO BID [facility] Last Admin: 02/24/18 10:22 Dose: 25 mg Phenytoin Sodium (Dilantin) 100 mg PO TID [facility] Last Admin: 02/24/18 10:23 Dose: 100 mg - Labs Labs: 02/23/18 06:30 02/23/18 06:30 PT 11.8 SECONDS (9.4-12.5) 02/22/18 05:50 INR 1.03 (0.93-1.08) 02/22/18 05:50 APTT 26.4 Seconds (25.1-36.5) 02/22/18 05:50 - Constitutional Appears: No Acute Distress - Head Exam Head Exam: NORMOCEPHALIC - Eye Exam Eye Exam: Normal appearance. absent: Scleral icterus - ENT Exam ENT Exam: Mucous Membranes Moist - Neck Exam Neck Exam: Normal Inspection - Respiratory Exam Respiratory Exam: NORMAL BREATHING PATTERN. absent: Respiratory Distress - Cardiovascular Exam Cardiovascular Exam: +S1, +S2 - GI/Abdominal Exam GI & Abdominal Exam: Soft, Normal Bowel Sounds. absent: Guarding, Tenderness, Rebound Additional comments: (+)colostomy, stoma appears pink, no blood noted. - Extremities Exam Extremities Exam: Pedal Edema. absent: Calf Tenderness - Neurological Exam Neurological Exam: Alert, Awake, Oriented x3 - Skin Skin Exam: Dry, Warm Assessment and Plan - Assessment and Plan (Free Text) Assessment: ASSESSMENT: Elevated BNP, features of CHF, SOB, LE swelling Pneumonia H/O colon cancer, s/p colectomy/colostomy Esophageal Stricture, h/o foreign body/esophageal diverticulum Thrombocytopenia Atrial Fibrillation Seizure disorder Abdominal Aortic Aneurysm PLAN: on soft foods on IV antibiotics on Eliquis and Aspirin as per cardiology Recently seen by ENT, no acute findings as per pt. Review w/ Dr. Hinton for further evauation. May benefit repeat EGD. refuse PPI/H2B, patient feels this caused his SOB. Discussed w/ patient regarding side effects that can occur w/ PPI, especially chronic use: renal insufficiency, bone loss, dementia,etc Seen and discussed with Dr. Hinton
--- NOTE | 2018-02-24 18:13 | CARD ---
APPROVED REPORT EXAM: Two-dimensional and M-mode echocardiogram with Doppler and color Doppler. INDICATION Atrial Fibrillation Congestive Heart Failure 2D DIMENSIONS Left Atrium (2D)6.0 (1.6-4.0cm)IVSd1.7 (0.7-1.1cm) LVDd4.4 (3.9-5.9cm)PWd1.4 (0.7-1.1cm) LVDs2.9 (2.5-4.0cm)FS (%) 33.9 % LVEF (%)63.1 (>50%) M-Mode DIMENSIONS Aortic Root3.90 (2.2-3.7cm)Aortic Cusp Exc.2.10 (1.5-2.0cm) Aortic Valve AoV Peak Knyfbxda332.0cm/sAoV VTI25.4cmAO Peak GR.9mmHg LVOT Peak Exmkxfgv757.0cm/sLVOT VTI25.50cmAO Mean GR.5mmHg Mitral Valve MV WZP59mlT/A ratio0.0MVA (PHT)3.55cm2 TDI E/Lateral E'0.0E/Medial E'0.0 Pulmonary Valve PV Peak Mwptanaf505.0cm/sPV Peak Grad.4mmHg Tricuspid Valve TR Peak Kswxzigx575nh/sRAP BVXSRLMW65rsPkFF Peak Gr.53mmHg YLUN17kvMw LEFT VENTRICLE The left ventricle is normal size. There is mild to moderate concentric left ventricular hypertrophy. Proximal septal thickening is noted with IHSS physiology but resting gradient 4-6 mmm of hg ( not significant) The left ventricular function is normal.EF-65% There is normal LV segmental wall motion. Transmitral Doppler flow pattern is Grade III-reversible restrictive diastolic dysfunction. No left ventricle thrombus noted on this study. There is no ventricular septal defect visualized. There is no left ventricular aneurysm. There is no mass noted in the left ventricle. RIGHT VENTRICLE The right ventricle is normal size. There is normal right ventricular wall thickness. The right ventricular systolic function is normal. ATRIA The left atrium is severely dilated. The right atrium size is normal. The interatrial septum is intact with no evidence for an atrial septal defect. AORTIC VALVE The aortic valve is thickened but opens well. There is trace aortic regurgitation. Aortic Sclerosis Vs Mild As There is no aortic valvular vegetation. MITRAL VALVE The mitral valve is thickened but opens well. Mitral annular calcification is mild to moderate. Mitral regurgitation is moderate. There is no mitral valve stenosis. There is no evidence of mitral valve prolapse. TRICUSPID VALVE The tricuspid valve leaflets are thickened , but open well. There is moderate tricuspid regurgitation.RVSP-63 mmof Hg. There is no tricuspid valve stenosis. There is no tricuspid valve prolapse or vegetation. PULMONIC VALVE The pulmonic valve is borderline thickened. There is mild to moderate pulmonic valvular regurgitation. There is no pulmonic valvular stenosis. GREAT VESSELS The aortic root is normal in size. The ascending aorta is normal in size. The pulmonary artery is normal. The IVC is normal in size and collapses >50% with inspiration. PERICARDIAL EFFUSION There is no pleural effusion. There is no pericardial effusion. <Conclusion> The left ventricle is normal size. There is mild to moderate concentric left ventricular hypertrophy. Proximal septal thickening is noted with IHSS physiology but resting gradient 4-6 mmm of hg ( not significant) The left ventricular function is normal.EF-65% Aortic Sclerosis Vs Mild As There is trace aortic regurgitation. Mitral regurgitation is moderate. There is moderate tricuspid regurgitation.RVSP-63 mmof Hg. There is mild to moderate pulmonic valvular regurgitation. The IVC is normal in size and collapses >50% with inspiration. There is no pericardial effusion. No vegetation or thrombus noted.
[2018-02-24] MEDS ORDERED: cefTRIAXone 1 gm 1 GM/100 ML BAG IVPB STA (21:10)
[2018-02-24] MEDS ORDERED: Vancomycin 1gm in NS 250ml 1 GM/250 ML BAG IVPB STA (21:12)
[2018-02-24 21:55] LABS: HEMOGLOBIN 10.6 g/dL (14.0-18.0); MEAN CELL VOLUME 94.2 fl (80.0-105.0); MEAN CORPUSCULAR HEMOGLOBIN 30.6 pg (25.0-35.0); MEAN CORPUSCULAR HGB CONC 32.5 g/dl (31.0-37.0); MEAN PLATELET VOLUME 8.6 fl (7.0-11.0); RBC 3.46 10^6/uL (3.5-6.1); RED CELL DISTRIBUTION WIDTH 15.9 % (11.5-14.5)
[2018-02-25] MEDS: Levalbuterol 1.25 MG/3 ML Inhal Soln UD IH SCH ×4 (01:11→19:56)
--- NOTE | 2018-02-25 06:17 | CP.PCM.PN ---
Subjective - Date & Time of Evaluation Date of Evaluation: 02/24/18 Time of Evaluation: 23:00 - Subjective Subjective: pt with bruise due to injury has more swelling and redness of the dorsal suface of the foot since yesterday was seen by resisident during the afternoon. Objective - Vital Signs/Intake and Output Vital Signs (last 24 hours): Temp Pulse Resp BP Pulse Ox 97.9 F 91 H 19 135/80 95 02/25/18 00:01 02/25/18 05:31 02/25/18 00:01 02/25/18 00:01 02/25/18 00:01 Intake and Output: 02/24/18 02/25/18 18:59 06:59 Intake Total 100 480 Output Total 975 Balance 100 -495 - Medications Medications: Current Medications Apixaban (Eliquis) 2.5 mg PO BID [facility] PRN Reason: Protocol Last Admin: 02/24/18 18:12 Dose: 2.5 mg Aspirin (Ecotrin) 81 mg PO DAILY [facility] Last Admin: 02/24/18 10:22 Dose: 81 mg Azithromycin (Zithromax) 250 mg PO DAILY [facility] Stop: 02/27/18 13:31 Last Admin: 02/24/18 10:22 Dose: 250 mg Diltiazem HCl (Cardizem Cd) 360 mg PO DAILY [facility] Last Admin: 02/24/18 10:22 Dose: 360 mg Furosemide (Lasix) 40 mg IVP DAILY [facility] Last Admin: 02/24/18 10:23 Dose: 40 mg Ceftriaxone Sodium (Rocephin 1 Gram Ivpb) 1 gm in 100 mls @ 100 mls/hr IVPB DAILY [facility] PRN Reason: Protocol Last Admin: 02/24/18 10:23 Dose: 100 mls/hr Levalbuterol HCl (Xopenex) 1.25 mg IH [id number] [facility] Last Admin: 02/25/18 01:11 Dose: 1.25 mg Metoprolol Succinate (Toprol Xl) 25 mg PO BID [facility] Last Admin: 02/24/18 18:12 Dose: 25 mg Phenytoin Sodium (Dilantin) 100 mg PO TID [facility] Last Admin: 02/24/18 18:12 Dose: 100 mg - Labs Labs: 02/24/18 21:46 02/23/18 06:30 PT 11.8 SECONDS (9.4-12.5) 02/22/18 05:50 INR 1.03 (0.93-1.08) 02/22/18 05:50 APTT 26.4 Seconds (25.1-36.5) 02/22/18 05:50 - Constitutional Appears: No Acute Distress - Head Exam Head Exam: NORMOCEPHALIC - Eye Exam Eye Exam: Normal appearance - ENT Exam ENT Exam: Mucous Membranes Moist - Neck Exam Neck Exam: Full ROM - Respiratory Exam Respiratory Exam: NORMAL BREATHING PATTERN - Cardiovascular Exam Cardiovascular Exam: RRR, +S1, +S2 - GI/Abdominal Exam GI & Abdominal Exam: Soft - Rectal Exam Rectal Exam: Deferred - Extremities Exam Extremities Exam: Full ROM Additional comments: rt foot multiple toe bruises dorsal of foot erythema induration and tenderness and warm. - Neurological Exam Neurological Exam: Alert, Awake, Oriented x3 - Skin Additional comments: as descibed above. Assessment and Plan - Assessment and Plan (Free Text) Assessment: cellulitis and abscess rt foot . Plan: rocephine 1 gm x1 stat. vanco 1 gm x1 stat. blood c/s x-ray rt foot.
[2018-02-25 07:05] LABS: BASO # 0.02 K/mm3 (0.0-2.0); BASO % 0.5 % (0.0-3.0); EOS # 0.1 (0.0-0.7); EOS % 2.6 % (1.5-5.0); GRAN # 2.64 (1.4-6.5); GRAN % 68.4 % (50.0-68.0); HEMOGLOBIN 9.7 g/dL (14.0-18.0); LYMPH # 0.7 (1.2-3.4); LYMPH % 18.4 % (22.0-35.0); MEAN CORPUSCULAR HEMOGLOBIN 30.5 pg (25.0-35.0); MEAN CORPUSCULAR HGB CONC 32.4 g/dl (31.0-37.0); MEAN PLATELET VOLUME 8.3 fl (7.0-11.0); MONO # 0.4 (0.1-0.6); MONO % 10.1 % (1.0-6.0); RBC 3.18 10^6/uL (3.5-6.1); RED CELL DISTRIBUTION WIDTH 15.7 % (11.5-14.5); WHITE BLOOD COUNT 3.9 10^3/ul (4.5-11.0)
[2018-02-25 07:29] LABS: ALB/GLOB RATIO 1.4 (1.1-1.8); ALBUMIN 3.6 g/dL (3.0-4.8); ALT/SGPT 37 U/L (7-56); AST/SGOT 33 U/L (17-59); BLOOD UREA NITROGEN 21 mg/dL (7-21); CALCIUM 8.5 mg/dL (8.4-10.5); GFR AFRICAN-AMERICAN > 60; GFR NON-AFRICAN AMERICAN > 60; HDL CHOLESTEROL 51 mg/dL (29-60)
[2018-02-25 07:41] LABS: LDL CHOLESTEROL 65 mg/dL (0-129)
--- NOTE | 2018-02-25 08:49 | CP.PCM.PN ---
Subjective - Date & Time of Evaluation Date of Evaluation: 02/25/18 Time of Evaluation: 07:00 - Subjective Subjective: Surgery progress note for Dr. Grullon Patient seen and examined. Patient reports worsening of right foot erythema overnight. Patient denies chest pain, dyspnea, palpitations, and abdominal pain at this time. Objective - Vital Signs/Intake and Output Vital Signs (last 24 hours): Temp Pulse Resp BP Pulse Ox 98.6 F 88 20 130/81 95 02/25/18 06:00 02/25/18 06:00 02/25/18 06:00 02/25/18 06:00 02/25/18 06:00 Intake and Output: 02/25/18 02/25/18 06:59 18:59 Intake Total 480 Output Total 975 Balance -495 - Medications Medications: Current Medications Apixaban (Eliquis) 2.5 mg PO BID [facility] PRN Reason: Protocol Last Admin: 02/24/18 18:12 Dose: 2.5 mg Aspirin (Ecotrin) 81 mg PO DAILY [facility] Last Admin: 02/24/18 10:22 Dose: 81 mg Azithromycin (Zithromax) 250 mg PO DAILY [facility] Stop: 02/27/18 13:31 Last Admin: 02/24/18 10:22 Dose: 250 mg Diltiazem HCl (Cardizem Cd) 360 mg PO DAILY [facility] Last Admin: 02/24/18 10:22 Dose: 360 mg Furosemide (Lasix) 40 mg IVP DAILY [facility] Last Admin: 02/24/18 10:23 Dose: 40 mg Ceftriaxone Sodium (Rocephin 1 Gram Ivpb) 1 gm in 100 mls @ 100 mls/hr IVPB DAILY [facility] PRN Reason: Protocol Last Admin: 02/24/18 10:23 Dose: 100 mls/hr Levalbuterol HCl (Xopenex) 1.25 mg IH [id number] [facility] Last Admin: 02/25/18 08:06 Dose: 1.25 mg Metoprolol Succinate (Toprol Xl) 25 mg PO BID [facility] Last Admin: 02/24/18 18:12 Dose: 25 mg Phenytoin Sodium (Dilantin) 100 mg PO TID [facility] Last Admin: 02/24/18 18:12 Dose: 100 mg - Labs Labs: 02/25/18 06:00 02/25/18 06:00 PT 11.8 SECONDS (9.4-12.5) 02/22/18 05:50 INR 1.03 (0.93-1.08) 02/22/18 05:50 APTT 26.4 Seconds (25.1-36.5) 02/22/18 05:50 - Constitutional Appears: No Acute Distress - Head Exam Head Exam: ATRAUMATIC, NORMOCEPHALIC - Eye Exam Eye Exam: EOMI, Normal appearance - ENT Exam ENT Exam: Mucous Membranes Moist - Respiratory Exam Respiratory Exam: NORMAL BREATHING PATTERN. absent: Respiratory Distress - Cardiovascular Exam Cardiovascular Exam: Irregular Rhythm, +S1, +S2 - GI/Abdominal Exam GI & Abdominal Exam: Soft, Normal Bowel Sounds. absent: Tenderness Additional comments: Left sided ostomy - Extremities Exam Extremities Exam: Pedal Edema (bilateral pitting) Additional comments: Bruising on right foot along the phalanges Erythema on dorsum of right foot Bilateral DP/PT pulses obtained with doppler - Neurological Exam Neurological Exam: Alert, Awake, Oriented x3 - Psychiatric Exam Psychiatric exam: Normal Affect, Normal Mood - Skin Skin Exam: Dry, Warm Assessment and Plan - Assessment and Plan (Free Text) Assessment: This is an 82 year old male with PMHx Rectal cancer s/p resection and colostomy , HTN, GERD, Zenker's Diverticulum, atrial fibrillation (was not on any anticoagulation), seizure disorder with infrarenal abdominal aortic aneurysm that was measured 5.9 cm wide by 10 cm long by 5.[address] scan on this admission. Plan: Aneurysm has been increasing in size since last documented on file in 2011 (3.6 cm wide.) Patient meets indications for abdominal aortic aneurysm repair Echo shows LVEF 65% with some LVH and diastolic dysfunction Awaiting further cardiac workup for risk stratification for surgical intervention for the aneurysm Further recs per Dr. Mitchel Foster PGY-1
--- NOTE | 2018-02-25 09:49 | RAD ---
PROCEDURE: Right Foot Radiographs. HISTORY: r/o fracture COMPARISON: None. FINDINGS: BONES: . No fracture. JOINTS: 1st metatarsal joint space narrowing -osteoarthrosis. Asymmetrical sclerotic and cystic changes medial sesamoid bone -per lateral view- a medial sesamoid cystic change or potential bipartite sesamoid is a consideration. - at minimal in medial sesamoid hallux arthrosis also suggested If further evaluation for any marrow edema here is needed, an MRI of the forefoot would be advised. Dorsal midfoot osseous hypertrophy - tiny chip like flake osseous avulsion not excluded -mention per the regional dorsal soft tissue swelling over the mid and proximal metatarsals per lateral view here. Inferior calcaneal spurring. SOFT TISSUES: Normal. OTHER FINDINGS: Sub cm well corticated accessory ossifications centers os tibial externums Atherosclerotic vascular calcifications noted. Hammertoe like orientations. IMPRESSION: "Potential flake chip osseous avulsion dorsal midfoot with regional soft tissue swelling dorsal midfoot correlate clinically with point tenderness. No additional or other more significant appearing fractures suggested Other findings as above Arthrosis: 1st metatarsal-phalangeal joint and medial sesamoid hallux
--- NOTE | 2018-02-25 11:02 | CP.PCM.PN ---
Subjective - Date & Time of Evaluation Date of Evaluation: 02/25/18 Time of Evaluation: 06:55 - Subjective Subjective: Awake, lying in bed, no distress Reason for consultation and follow up: Cardiac evaluation, chest pain,shortness of breath, coronary artery disease with balloon angioplasty, atrial fibrillation ( not on anticoagulation) hypertension, GERD, AAA, seizure disorder Seen and examined by me and Dr. Greenfield Objective - Vital Signs/Intake and Output Vital Signs (last 24 hours): Temp Pulse Resp BP Pulse Ox 98.6 F 88 20 130/81 95 02/25/18 06:00 02/25/18 06:00 02/25/18 06:00 02/25/18 06:00 02/25/18 06:00 Intake and Output: 02/25/18 02/25/18 06:59 18:59 Intake Total 480 Output Total 975 Balance -495 - Medications Medications: Current Medications Apixaban (Eliquis) 2.5 mg PO BID [facility] PRN Reason: Protocol Last Admin: 02/24/18 18:12 Dose: 2.5 mg Aspirin (Ecotrin) 81 mg PO DAILY [facility] Last Admin: 02/24/18 10:22 Dose: 81 mg Azithromycin (Zithromax) 250 mg PO DAILY [facility] Stop: 02/27/18 13:31 Last Admin: 02/24/18 10:22 Dose: 250 mg Diltiazem HCl (Cardizem Cd) 360 mg PO DAILY [facility] Last Admin: 02/24/18 10:22 Dose: 360 mg Furosemide (Lasix) 40 mg IVP DAILY [facility] Last Admin: 02/24/18 10:23 Dose: 40 mg Ceftriaxone Sodium (Rocephin 1 Gram Ivpb) 1 gm in 100 mls @ 100 mls/hr IVPB DAILY [facility] PRN Reason: Protocol Stop: 02/26/18 10:59 Last Admin: 02/24/18 10:23 Dose: 100 mls/hr Levalbuterol HCl (Xopenex) 1.25 mg IH [id number] [facility] Last Admin: 02/25/18 08:06 Dose: 1.25 mg Metoprolol Succinate (Toprol Xl) 25 mg PO BID [facility] Last Admin: 02/24/18 18:12 Dose: 25 mg Phenytoin Sodium (Dilantin) 100 mg PO TID [facility] Last Admin: 02/24/18 18:12 Dose: 100 mg - Labs Labs: 02/25/18 06:00 02/25/18 06:00 PT 11.8 SECONDS (9.4-12.5) 02/22/18 05:50 INR 1.03 (0.93-1.08) 02/22/18 05:50 APTT 26.4 Seconds (25.1-36.5) 02/22/18 05:50 - Constitutional Appears: No Acute Distress - Head Exam Head Exam: NORMOCEPHALIC - ENT Exam ENT Exam: Mucous Membranes Moist - Respiratory Exam Respiratory Exam: Decreased Breath Sounds, Clear to Ausculation Bilateral, NORMAL BREATHING PATTERN - Cardiovascular Exam Cardiovascular Exam: +S1, +S2 - GI/Abdominal Exam GI & Abdominal Exam: Soft, Normal Bowel Sounds - Back Exam Additional comments: colostomy - Neurological Exam Neurological Exam: Alert, Awake, Oriented x3 - Psychiatric Exam Psychiatric exam: Normal Affect, Normal Mood - Skin Skin Exam: Intact, Normal Color, Warm Assessment and Plan - Assessment and Plan (Free Text) Assessment: An 82 year old male who came in to the ER due to shortness of breath and chest pain. History of rectal cancer s/p resection and colostomy, Abdominal Aortic Aneurysm, HTN, GERD, Zenker's Diverticulum, atrial fibrillation, coronary artery disease with stents.ex-smoker.seizure disorder Plan: Atypical chest pain Denies chest pain and shortness of breath now Abdominal US showed 5.4 cms of Abdominal aortic aneurysm compared to last study 2014 which was 3.6 cms. Surgery consulted to evaluate Will do cardiac work up to clear the patient for possible surgery Stress Test scheduled tomorrow ECHO done and showed-LVEF 65% normal, moderate concentric left ventricular hypertrophy, moderate MR/TR, trace AR On Eliquis 2.5 mg BID,ASA 81 mg daily, Cardizem 360 mg daily,Toprol 25m g BID Dilantin [address] of chest showed right upper lobe infiltrate ID on consult Started on antibiotics, rocephin and Zithromax Continue current treatment Continue current medications Will follow up Plan and treatment discussed with Dr. Greenfield
[2018-02-25] MEDS: Metoprolol Succinate 25 mg XL Tab PO SCH ×2 (11:14→17:15)
[2018-02-25] MEDS: diltiaZEM 180 mg/24 Hours CD Cap PO SCH (11:16)
[2018-02-25] MEDS: cefTRIAXone 1 gm 1 GM/100 ML BAG IVPB SCH (12:31)
--- NOTE | 2018-02-25 14:29 | CON ---
DATE: 02/25/2018 HISTORY OF PRESENT ILLNESS: The history and physical is as dictated by Dr. Grullon. The patient was seen at bedside. The history was repeated. The patient appeared to be in good shape. 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 He also run up 3 flights of stairs a few times a day with his dog. As far as he is concerned, this is the first time he heard that he was in atrial fibrillation. The workup is still pending. His CAT scan was reviewed and explained to the patient and his family. The indications for surgery and the potential risk and benefit for aortic endograft of his abdominal aortic aneurysm was also explained. The patient appeared agreeable to the surgery. He is undergoing the cardiac workup as he has not had a stress test in 4 years and has new onset atrial fibrillation. Also, the scheduling of the surgery will be pending on his recovery of his pneumonia. Currently, by CAT scan, he has a right upper lobe and right lower lobe consolidation and infiltrate. However, clinically he appeared to have no respiratory issue and his white count is within normal limit. 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 The CAT scan was also reviewed with Dr. Eduardo, who concur that he is a candidate for an aortic endograft. Qi Grullon MD MTD[facility]ev[facility]
--- NOTE | 2018-02-25 15:31 | CP.PCM.PN ---
Subjective - Date & Time of Evaluation Date of Evaluation: 02/25/18 Time of Evaluation: 10:05 - Subjective Subjective: Seen and examined at the bedside earlier this morning, chart review. Family at bedside, waiting for vascular surgeon. The patient is awake alert and oriented , denies nausea, vomiting, or abdominal pain. No current GI complaints. Tolerating oral intake and plan to dysphagia. Ct scan report noted, see [facility] for full report. Large AAA noted, moderate amount of mural thrombus. Objective - Vital Signs/Intake and Output Vital Signs (last 24 hours): Temp Pulse Resp BP Pulse Ox 98.1 F 112 H 18 147/79 95 02/25/18 12:00 02/25/18 12:00 02/25/18 12:00 02/25/18 12:00 02/25/18 06:00 Intake and Output: 02/25/18 02/25/18 06:59 18:59 Intake Total 480 Output Total 975 Balance -495 - Medications Medications: Current Medications Apixaban (Eliquis) 2.5 mg PO BID [facility] PRN Reason: Protocol Last Admin: 02/25/18 11:16 Dose: 2.5 mg Aspirin (Ecotrin) 81 mg PO DAILY [facility] Last Admin: 02/25/18 11:14 Dose: 81 mg Azithromycin (Zithromax) 250 mg PO DAILY [facility] Stop: 02/27/18 13:31 Last Admin: 02/25/18 11:31 Dose: 250 mg Diltiazem HCl (Cardizem Cd) 360 mg PO DAILY [facility] Last Admin: 02/25/18 11:16 Dose: 360 mg Furosemide (Lasix) 40 mg IVP DAILY [facility] Last Admin: 02/25/18 11:26 Dose: 40 mg Ceftriaxone Sodium (Rocephin 1 Gram Ivpb) 1 gm in 100 mls @ 100 mls/hr IVPB DAILY [facility] PRN Reason: Protocol Stop: 02/26/18 10:59 Last Admin: 02/25/18 12:31 Dose: 100 mls/hr Levalbuterol HCl (Xopenex) 1.25 mg IH [id number] [facility] Last Admin: 02/25/18 13:53 Dose: 1.25 mg Metoprolol Succinate (Toprol Xl) 25 mg PO BID [facility] Last Admin: 02/25/18 11:14 Dose: 25 mg Phenytoin Sodium (Dilantin) 100 mg PO TID [facility] Last Admin: 02/25/18 14:27 Dose: 100 mg - Labs Labs: 02/25/18 06:00 02/25/18 06:00 PT 11.8 SECONDS (9.4-12.5) 02/22/18 05:50 INR 1.03 (0.93-1.08) 02/22/18 05:50 APTT 26.4 Seconds (25.1-36.5) 02/22/18 05:50 - Constitutional Appears: No Acute Distress - Eye Exam Eye Exam: Scleral icterus. absent: Normal appearance - ENT Exam ENT Exam: Mucous Membranes Moist - Respiratory Exam Respiratory Exam: NORMAL BREATHING PATTERN. absent: Respiratory Distress - Cardiovascular Exam Cardiovascular Exam: +S1, +S2 - GI/Abdominal Exam GI & Abdominal Exam: Soft, Normal Bowel Sounds. absent: Guarding, Tenderness, Rebound Additional comments: (+) colostomy , nontender - Extremities Exam Extremities Exam: absent: Calf Tenderness - Neurological Exam Neurological Exam: Alert, Awake, Oriented x3 - Skin Skin Exam: Dry, Warm Assessment and Plan - Assessment and Plan (Free Text) Assessment: ASSESSMENT: Elevated BNP, features of CHF, SOB, LE swelling Pneumonia H/O colon cancer, s/p colectomy/colostomy Esophageal Stricture, h/o foreign body/esophageal diverticulum Thrombocytopenia Atrial Fibrillation Seizure disorder Abdominal Aortic Aneurysm PLAN: on soft foods on IV nnd oral antibiotics on Eliquis and Aspirin as per cardiology/vascular sx team Discussed with patient and family at bedside that prior to any surgical intervention recommend ration having repeat endoscopy. As previously reported patient is reluctant to take any PPI/H2 tammy due to side effect. Seen and discussed with Dr. Hinton
--- NOTE | 2018-02-25 16:36 | PN ---
DATE: 02/25/2018 SUBJECTIVE: The patient is 82 years old, seen and examined lying in bed. Still has leg edema. His right foot is swollen and reddened, a few ecchymotic spots over the right foot toes. The patient states he is still getting intermittent shortness of breath. PHYSICAL EXAMINATION: GENERAL: Otherwise on examination, he is awake, alert, oriented, communicative. VITAL SIGNS: He is afebrile. Pulse 88, respirations 20, blood pressure 140/78. HEART: S1 and S2 audible. LUNGS: Bilateral fair airflow. No rhonchi or crackle. ABDOMEN: Soft, nontender. No rebound, no guarding. NEUROLOGIC: The patient is awake, alert, oriented, communicative. EXTREMITIES: Bilateral legs, +1 edema. Left leg has +2 edema and right leg has +1 edema. He has ecchymosis and erythema of the dorsum of right foot. LABORATORY DATA: WBC 3.9, hemoglobin 9.7, hematocrit 29.9, platelets of 79. Chemistry: Sodium 147, potassium 4.2, chloride 107, CO2 26, BUN 21, creatinine 1, blood sugar of 113, PSA is 7.4. Dilantin level is 8. Blood cultures and urine cultures are negative. X-ray of right foot shows potential flake chip osseous avulsion, dorsal midfoot with region of soft tissue swelling. ASSESSMENT: 1. Seizure disorder. 2. Atrial fibrillation. 3. Hypertension. 4. Aortic aneurysm. 5. Chronic obstructive pulmonary disease. 6. Right lower lobe pneumonia. 7. Right foot cellulitis and small bone avulsion. PLAN: Currently, the patient is on IV antibiotics. He is getting nebulizer treatment. He is on Eliquis. He is being evaluated by Dr. Grullon. Probably, he is going to need cardiac workup either stress test or cath prior to going for procedure for aneurysm. 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 I will talk to Dr. Hinton to discuss with Dr. Montejo for management of that issue. We will continue him on Tele for now and the patient to have a stress test done prior to going for procedure. Tri Fleming MD [facility] # [id number]
[2018-02-26] MEDS: Levalbuterol 1.25 MG/3 ML Inhal Soln UD IH SCH ×4 (01:20→20:40)
--- NOTE | 2018-02-26 08:16 | CP.PCM.PN ---
Subjective - Date & Time of Evaluation Date of Evaluation: 02/26/18 Time of Evaluation: 07:00 - Subjective Subjective: Surgery progress note for Dr. Grullon Patient seen and examined. Patient reports continued right foot pain. Patient denies chest pain, dyspnea, palpitations, and abdominal pain at this time. As of this morning, patient is amenable to having surgery to repair the aneurysm. Objective - Vital Signs/Intake and Output Vital Signs (last 24 hours): Temp Pulse Resp BP Pulse Ox 98.6 F 101 H 20 133/84 96 02/26/18 06:00 02/26/18 06:00 02/26/18 06:00 02/26/18 06:00 02/26/18 06:00 - Medications Medications: Current Medications Apixaban (Eliquis) 2.5 mg PO BID [facility] PRN Reason: Protocol Last Admin: 02/25/18 17:15 Dose: 2.5 mg Aspirin (Ecotrin) 81 mg PO DAILY [facility] Last Admin: 02/25/18 11:14 Dose: 81 mg Azithromycin (Zithromax) 250 mg PO DAILY [facility] Stop: 02/27/18 13:31 Last Admin: 02/25/18 11:31 Dose: 250 mg Diltiazem HCl (Cardizem Cd) 360 mg PO DAILY [facility] Last Admin: 02/25/18 11:16 Dose: 360 mg Furosemide (Lasix) 40 mg IVP DAILY [facility] Last Admin: 02/25/18 11:26 Dose: 40 mg Ceftriaxone Sodium (Rocephin 1 Gram Ivpb) 1 gm in 100 mls @ 100 mls/hr IVPB DAILY [facility] PRN Reason: Protocol Stop: 02/26/18 10:59 Last Admin: 02/25/18 12:31 Dose: 100 mls/hr Levalbuterol HCl (Xopenex) 1.25 mg IH [id number] [facility] Last Admin: 02/26/18 08:06 Dose: 1.25 mg Metoprolol Succinate (Toprol Xl) 25 mg PO BID [facility] Last Admin: 02/25/18 17:15 Dose: 25 mg Phenytoin Sodium (Dilantin) 100 mg PO TID [facility] Last Admin: 02/25/18 17:15 Dose: 100 mg - Labs Labs: 02/25/18 06:00 02/25/18 06:00 PT 11.8 SECONDS (9.4-12.5) 02/22/18 05:50 INR 1.03 (0.93-1.08) 02/22/18 05:50 APTT 26.4 Seconds (25.1-36.5) 02/22/18 05:50 - Constitutional Appears: No Acute Distress - Head Exam Head Exam: ATRAUMATIC, NORMOCEPHALIC - Eye Exam Eye Exam: EOMI, Normal appearance - ENT Exam ENT Exam: Mucous Membranes Moist - Respiratory Exam Respiratory Exam: NORMAL BREATHING PATTERN. absent: Respiratory Distress - Cardiovascular Exam Cardiovascular Exam: Irregular Rhythm, +S1, +S2 - GI/Abdominal Exam GI & Abdominal Exam: Soft. absent: Tenderness Additional comments: Left sided ostomy in place - Extremities Exam Extremities Exam: Pedal Edema (bilateral pitting) Additional comments: Bruising on right foot along the phalanges Erythema on dorsum of right foot Bilateral DP/PT pulses obtained with doppler - Neurological Exam Neurological Exam: Alert, Awake, Oriented x3 - Psychiatric Exam Psychiatric exam: Normal Affect, Normal Mood - Skin Skin Exam: Dry, Warm Assessment and Plan - Assessment and Plan (Free Text) Assessment: This is an 82 year old male with infrarenal abdominal aortic aneurysm that was measured 5.9 cm wide by 10 cm long by 5.[address] scan on this admission. Plan: Aneurysm has been increasing in size since last documented on file in 2011 (3.6 cm wide.) Echo shows LVEF 65% with some LVH and diastolic dysfunction Patient is awaiting stress test scheduled for this morning Patient meets indications for abdominal aortic aneurysm repair and is amenable to having surgery done Awaiting further cardiac workup for risk stratification for surgical intervention for the aneurysm Awaiting resolution of pneumonia Patient will need clearance from both cardiology and primary teams prior to procedure Further recs per Dr. Mitchel Foster PGY-1
[2018-02-26] MEDS: Metoprolol Succinate 25 mg XL Tab PO SCH ×2 (09:15→17:46)
[2018-02-26] MEDS: diltiaZEM 180 mg/24 Hours CD Cap PO SCH (09:15)
[2018-02-26] MEDS: cefTRIAXone 1 gm 1 GM/100 ML BAG IVPB SCH ×2 (09:33→13:55)
--- NOTE | 2018-02-26 10:14 | CP.PCM.PN ---
Subjective - Date & Time of Evaluation Date of Evaluation: 02/26/18 Time of Evaluation: 07:10 - Subjective Subjective: Patient seen and examined at bedside this AM. No adverse events overnight. Patient denies any abdominal pain, chest pain, nausea or vomiting. Objective - Vital Signs/Intake and Output Vital Signs (last 24 hours): Temp Pulse Resp BP Pulse Ox 98.6 F 110 H 20 140/72 96 02/26/18 06:00 02/26/18 09:15 02/26/18 06:00 02/26/18 09:15 02/26/18 06:00 - Medications Medications: Current Medications Apixaban (Eliquis) 2.5 mg PO BID [facility] PRN Reason: Protocol Last Admin: 02/26/18 09:16 Dose: 2.5 mg Aspirin (Ecotrin) 81 mg PO DAILY [facility] Last Admin: 02/26/18 09:16 Dose: 81 mg Azithromycin (Zithromax) 250 mg PO DAILY [facility] Stop: 02/27/18 13:31 Last Admin: 02/26/18 09:33 Dose: Not Given Diltiazem HCl (Cardizem Cd) 360 mg PO DAILY [facility] Last Admin: 02/26/18 09:15 Dose: 360 mg Furosemide (Lasix) 40 mg IVP DAILY [facility] Last Admin: 02/26/18 09:14 Dose: 40 mg Ceftriaxone Sodium (Rocephin 1 Gram Ivpb) 1 gm in 100 mls @ 100 mls/hr IVPB DAILY [facility] PRN Reason: Protocol Stop: 02/26/18 10:59 Last Admin: 02/26/18 09:33 Dose: Not Given Levalbuterol HCl (Xopenex) 1.25 mg IH [id number] [facility] Last Admin: 02/26/18 08:06 Dose: 1.25 mg Metoprolol Succinate (Toprol Xl) 25 mg PO BID [facility] Last Admin: 02/26/18 09:15 Dose: 25 mg Phenytoin Sodium (Dilantin) 100 mg PO TID [facility] Last Admin: 02/26/18 09:15 Dose: 100 mg - Labs Labs: 02/25/18 06:00 02/25/18 06:00 PT 11.8 SECONDS (9.4-12.5) 02/22/18 05:50 INR 1.03 (0.93-1.08) 02/22/18 05:50 APTT 26.4 Seconds (25.1-36.5) 02/22/18 05:50 - Constitutional Appears: Well, Non-toxic, No Acute Distress - Head Exam Head Exam: ATRAUMATIC, NORMOCEPHALIC - Eye Exam Eye Exam: Normal appearance. absent: Scleral icterus - ENT Exam ENT Exam: Mucous Membranes Moist, Normal Oropharynx - Respiratory Exam Respiratory Exam: NORMAL BREATHING PATTERN. absent: Accessory Muscle Use, Respiratory Distress - GI/Abdominal Exam GI & Abdominal Exam: Soft. absent: Distended, Tenderness - Neurological Exam Neurological Exam: Alert, Awake, Oriented x3 - Psychiatric Exam Psychiatric exam: Normal Affect, Normal Mood - Skin Skin Exam: Dry, Normal Color, Warm Assessment and Plan - Assessment and Plan (Free Text) Assessment: 82M with infrarenal abdominal aortic aneurysm 5.6cm in greatest diameter Plan: Plan for OR next week for abdominal aortic aneurysm repair pre-operative cardiac risk assessment and optimization F/U GI recs--currently they are recommending EGD prior to OR to assess esophageal diverticulum/stricture
[2018-02-26] MEDS ORDERED: Aminophylline 25 mg/ml Inj ONE (10:20)
--- NOTE | 2018-02-26 13:23 | CP.PCM.CON ---
<Tacos Celeste - Last Filed: 02/26/18 23:12> History of Present Illness - History of Present Illness History of Present Illness: Podiatry Consult Note- Dr. Campos 82 y.o male consulted for right foot pain. Patient reports that 2 weeks, a plate few from the counter and hit his right foot. Patient reports pain and swelling. Did not seek help. Patient reports he has be ambulating. Has not ice or elevate leg. Does not have a certified mortician. Reports the pain and swelling has gotten better. Reports no pain but a soreness on top of his right foot. Reports pain is worse with socks or pressure. Relieved when socks are taken off. Denies nausea, fever, chest pains, chills, vomiting, or shortness of breath during visitation. Patient reports that he would have the occasional shortness of breath but that is normal for him. Reports that he was admitted for chest pains. PMH: Rectal cancer s/p resection, abdominal aortic aneurysm, hypertension, seizures, GERD, Zenker's Diverticulum, Atrial Fibrillation PSH: restion of rectal with colostomy in 2001, appendectomy, balloon angioplasty in 1990 SH: former smoker 3-4ppd for ~40 years, denies drinking EtOH, denies illicit drug use ALL: NKDA MEDS: see MAR list Past Patient History - Infectious Disease Hx of Infectious Diseases: None - Tetanus Immunizations Tetanus Immunization: Up to Date - Past Social History Smoking Status: Former Smoker - CARDIAC Hx Cardiac Disorders: Yes (ANGIOPLASTY) Hx Cardia Arrhythmia: Yes (23yrs ago) Hx Circulatory Problems: Yes Hx Congestive Heart Failure: Yes Hx Hypertension: Yes Hx Peripheral Edema: Yes - PULMONARY Hx Respiratory Disorders: Yes (USED TO SMOKE CIGARETTES.QUIT 1990) - NEUROLOGICAL Hx Neurological Disorder: Yes Hx Seizures: Yes (epilepsy LAST SZ WAS 1990) - HEENT Hx HEENT Problems: Yes Other/Comment: uses eyeglasses,use dentures - RENAL Hx Chronic Kidney Disease: No - ENDOCRINE/METABOLIC Hx Endocrine Disorders: No - HEMATOLOGICAL/ONCOLOGICAL Hx Blood Disorders: Yes Hx Cancer: Yes (RECTAL CA) Other/Comment: 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 - MUSCULOSKELETAL/RHEUMATOLOGICAL Hx Musculoskeletal Disorders: No Hx Falls: Yes - GASTROINTESTINAL Hx Gastrointestinal Disorders: Yes Hx Colostomy: Yes (2001) Hx Gastroesophageal Reflux: Yes HX Swallowing Problems: Yes Other/Comment: rectal cancer - GENITOURINARY/GYNECOLOGICAL Hx Genitourinary Disorders: Yes (UNDESCENDED TESTICLE) - PSYCHIATRIC Hx Psychophysiologic Disorder: No Hx Depression: No Hx Emotional Abuse: No Hx Physical Abuse: No Hx Substance Use: No - SURGICAL HISTORY Hx Surgeries: Yes (TONSILLECTOMY,ANGIOPLASTY,) Hx Appendectomy: Yes Other/Comment: colostomy 2001 - ANESTHESIA Hx Anesthesia Reactions: No Hx Malignant Hyperthermia: No Meds Allergies/Adverse Reactions: Allergies Allergy/AdvReac Type Severity Reaction Status Date / Time No Known Allergies Allergy Verified 02/22/18 12:07 - Medications Medications: Current Medications Apixaban (Eliquis) 2.5 mg PO BID [facility] PRN Reason: Protocol Last Admin: 02/26/18 09:16 Dose: 2.5 mg Aspirin (Ecotrin) 81 mg PO DAILY [facility] Last Admin: 02/26/18 09:16 Dose: 81 mg Azithromycin (Zithromax) 250 mg PO DAILY [facility] Stop: 02/27/18 13:31 Last Admin: 02/26/18 09:33 Dose: Not Given Diltiazem HCl (Cardizem Cd) 360 mg PO DAILY [facility] Last Admin: 02/26/18 09:15 Dose: 360 mg Furosemide (Lasix) 40 mg IVP DAILY [facility] Last Admin: 02/26/18 09:14 Dose: 40 mg Levalbuterol HCl (Xopenex) 1.25 mg IH [id number] [facility] Last Admin: 02/26/18 08:06 Dose: 1.25 mg Metoprolol Succinate (Toprol Xl) 25 mg PO BID [facility] Last Admin: 02/26/18 09:15 Dose: 25 mg Phenytoin Sodium (Dilantin) 100 mg PO TID [facility] Last Admin: 02/26/18 09:15 Dose: 100 mg Physical Exam - Constitutional Appears: Well, Non-toxic, No Acute Distress - Extremities Exam Extremities exam: Negative for: calf tenderness Additional comments: VASC: DP and PT unpalpable, CFT delayed > 4 seconds to digits x 10, LE pitting edema B/L, nonpitting edema noted to the dorsum midfoot of right foot, temperature to the LE is cool to cool bilaterally, no increase warmth the the area of concern ORTHO: mild-moderate pain with palpation to the dorsum of right midfoot at lateral cuneiform and cuboid region, no palpable bony prominence noted, no pain appreciated with palpation to the digits 1-5 where ecchymotic changes are noted to the digits, MM is 4/5 in all four compartments appropriate for age, able to wiggle toes NEURO: gross protection intact, protective sensation diminished DERM: ecchymosis noted to dorsum of 1-5 at the level of the IPJs measuring approximately 2.5 cm in length along the digits. No open lesions noted, no fluctuannce, no abscess, no blisters, erythema noted to the dorsum of the right midfoot, no cellulitic changes noted. bruised healing ecchymotic skin noted to medial and lateral malleolus, elongated, hypertrophic toe nails with yellow discoloration and subungal debris x10, generalized xerosis noted to the entire LE - Neurological Exam Neurological exam: Alert, Oriented x3 - Psychiatric Exam Psychiatric exam: Normal Affect, Normal Mood Results - Vital Signs Recent Vital Signs: Last Vital Signs Temp 98.6 F 02/26/18 06:00 Pulse 110 H 02/26/18 09:15 Resp 20 02/26/18 06:00 BP 140/72 02/26/18 09:15 Pulse Ox 96 02/26/18 06:00 - Labs Result Diagrams: 02/25/18 06:00 02/25/18 06:00 Assessment & Plan - Assessment and Plan (Free Text) Assessment: 82 y.o male with likely non displaced chip fracture of lateral cuneiform/cuboid and enlongated nails x10. Plan: Patient examined and evaluated Discussed plan in detail with attending Dr. Campos X-rays reviewed- IMPRESSION Potential flake chip osseous avulsion dorsal midfoot with regional soft tissue swelling dorsal midfoot correlate clinically with point tenderness. No additional or other more significant appearing fractures suggested Patient to WBAT in surgical shoe to the heel Ordered venous and arterial duplex Will hold off on compression pending arterial duplex Elevate LE Ordered LacHydrin for the LE Will debride nails during this admission Will continue to follow inhouse <Rio Campos - Last Filed: 02/27/18 08:18> Meds - Medications Medications: Current Medications Apixaban (Eliquis) 2.5 mg PO BID [facility] PRN Reason: Protocol Last Admin: 02/26/18 17:46 Dose: 2.5 mg Aspirin (Ecotrin) 81 mg PO DAILY [facility] Last Admin: 02/26/18 09:16 Dose: 81 mg Azithromycin (Zithromax) 250 mg PO DAILY [facility] Stop: 02/27/18 13:31 Last Admin: 02/26/18 13:35 Dose: 250 mg Diltiazem HCl (Cardizem Cd) 360 mg PO DAILY [facility] Last Admin: 02/26/18 09:15 Dose: 360 mg Furosemide (Lasix) 40 mg IVP DAILY [facility] Last Admin: 02/26/18 09:14 Dose: 40 mg Ceftriaxone Sodium (Rocephin 1 Gram Ivpb) 1 gm in 100 mls @ 100 mls/hr IVPB DAILY [facility] PRN Reason: Protocol Levalbuterol HCl (Xopenex) 1.25 mg IH [id number] [facility] Last Admin: 02/27/18 08:05 Dose: 1.25 mg Metoprolol Succinate (Toprol Xl) 25 mg PO BID [facility] Last Admin: 02/26/18 17:46 Dose: 25 mg Phenytoin Sodium (Dilantin) 100 mg PO TID [facility] Last Admin: 02/26/18 17:47 Dose: 100 mg Results - Vital Signs Recent Vital Signs: Last Vital Signs Temp 98.8 F 02/27/18 06:00 Pulse 100 H 02/27/18 06:00 Resp 15 02/27/18 06:00 BP 135/94 H 02/27/18 06:00 Pulse Ox 98 02/27/18 06:00 - Labs Result Diagrams: 02/25/18 06:00 02/25/18 06:00 Attending/Attestation - Attestation I have personally seen and examined this patient.: Yes I have fully participated in the care of the patient.: Yes I have reviewed all pertinent clinical information: Yes
--- NOTE | 2018-02-26 13:56 | PN ---
DATE: 02/26/2018 SUBJECTIVE: The patient is 82 years old, seen in Cardiology Department, sitting in chair, had first part of stress test done. Denies any nausea. No chest pain. No shortness of breath. OBJECTIVE: VITAL SIGNS: The patient is afebrile, pulse 110, respirations 20, blood pressure 140/72. LUNGS: Bilateral fair airflow. No rhonchi or crackle. HEART: S1 and S2 audible. ABDOMEN: Soft, nontender. No rebound, no guarding. NEUROLOGIC: The patient is awake and alert, able to communicate. EXTREMITIES: Bilateral legs, no edema. LABORATORY DATA: WBC is 3.9, hemoglobin 9.7, hematocrit 29, platelets of 79. Chemistry: Sodium 147, potassium 4.2, chloride 107, CO2 of 26. BUN 21, creatinine 1. Blood sugar of 113. PSA 7.4. Stress test is pending. X-ray of right foot shows flake avulsion fracture of the dorsal midfoot along with swelling. ASSESSMENT: 1. Atrial fibrillation, rate controlled. 2. Chronic obstructive pulmonary disease. 3. Aortic aneurysm. 4. Pharyngeal pouch status post food impaction and it was removed endoscopically. 5. High prostate-specific antigen. 6. History of seizure disorder. 7. Hypertension. PLAN: The patient is getting stress test today. He will be scheduled for endoscopy prior to committing for aortic aneurysm surgery. Further decision will be made after we have stress test. Tri Fleming MD
--- NOTE | 2018-02-26 15:22 | PN ---
DATE: 02/26/2018 REASON FOR THE CONSULTATION AND FOLLOWUP: Shortness of breath with atrial fibrillation, hypertension, respiratory tract infection, abdominal aortic aneurysm, preop evaluation, risk stratification for possible abdominal aortic aneurysm repair. SUBJECTIVE: The patient denies any chest pain, shortness of breath or any palpitation. OBJECTIVE: GENERAL: Not in any apparent distress. VITAL SIGNS: Temperature afebrile, heart rate 97, blood pressure 133/84. HEENT: PERRLA. Extraocular muscles intact. NECK: Supple. No carotid bruit. No thyromegaly. CHEST: Clear to auscultation. HEART: S1 and S2 regular. ABDOMEN: Soft. EXTREMITIES: Clubbing and cyanosis negative. LABORATORY DATA: Blood workup as follows; WBC , hemoglobin 9.1, hematocrit 29.9, platelet count . Chemistry shows sodium 147, potassium 4.2, chloride 107, carbon dioxide 26, anion gap of 17, BUN 21, creatinine 1, hemoglobin A1c 5.2, TSH 1.62, triglycerides 60, cholesterol 135, LDL 65, HDL 51. CAT scan of the abdomen and pelvis confirms the size of the abdominal aortic aneurysm, infrarenal, measuring 5.5 5.2 cm in AP diameter, 10 cm in length with moderate amount of mural thrombus. IMPRESSION: Infrarenal abdominal aortic aneurysm, it was 3.6 in 2012, 2 cm; history of atrial fibrillation; history of rectal cancer, status post colostomy; atrial fibrillation, was not on anticoagulation, started this time; Zenker's diverticulum; coronary artery disease, status post percutaneous transluminal coronary angioplasty in 1990. Echocardiogram, ejection fraction of 65%, normal ejection fraction, moderate concentric left ventricular hypertrophy, moderate mitral regurgitation and tricuspid regurgitation, trace aortic regurgitation. Right foot injury secondary to dinner plate falling down on his feet. RECOMMENDATIONS: Continue Eliquis for atrial fibrillation. Continue antibiotic for pneumonia. Continue Cardizem CD to control the heart rate. The patient for a stress test today for risk stratification. Further recommendation will depend on the hospital course. We will follow with you. Keep n.p.o. for a stress test today. Further recommendations after the stress test. Thank you, Dr. Fleming, for providing us the opportunity in taking care of Roshan Hale. Gladis Greenfield MD [facility] # [phone]
--- NOTE | 2018-02-26 15:55 | US ---
PROCEDURE: Right lower extremity venous US HISTORY: Leg pain and swelling. Evaluate for DVT. PHYSICIAN(S): Bill Eduardo M.D. TECHNIQUE: Duplex sonography and color-flow Doppler with graded compression were used to evaluate the deep venous system of the right lower extremity. FINDINGS: The visualized deep venous system of the right lower extremity is sonographically normal and compressible. Normal waveforms and augmentation are seen. There is no sonographic evidence for deep venous thrombosis in the visualized segments of the right lower extremity. IMPRESSION: 1. No sonographic evidence for deep venous thrombosis in the visualized segments of the right lower extremity.
--- NOTE | 2018-02-26 16:54 | US ---
PROCEDURE: Lower extremity SHA exam HISTORY: Peripheral vascular disease with pain and claudication. Previous smoker. PHYSICIAN(S): Bill Eduardo MD. FINDINGS: The resting SHA's are relatively normal: Right, 0.89 and left, 1.10 The brachial systolic pressures are symmetric. The high thigh pressures and waveforms are relatively normal. The calf PVR waveforms augment normally. No significant gradients are noted across the thighs. The ankle PVR waveforms are relatively normal and symmetric. The right metatarsal waveforms are normal. The left metatarsal waveforms are severely blunted. Could represent artifact IMPRESSION: 1. Relatively normal SHA and PVR examination at rest.
--- NOTE | 2018-02-26 21:14 | CARD ---
APPROVED REPORT Protocol: LEXISCAN Test Type: Lexiscan Sestamibi Stress Test Attending Physician: Dr. Gladis Faye Referring Physician: Dr. Tri Fleming Test Indications: Pre-Op Evaluation Height:5 ft 8 in Weight:154lbs Medications: Eliquis, Aspirin, Rocephin, Cardizem, Lasix, Xopenex, Dilantin Medical History: 82 y/o male with a history of atrial fibrillation, COPD, htn, seizures, aortic aneurysm Target HR: 138 bpm Resting ECG: Atrial Fibrillation. LVH. Non Specific ST_T Changes. Resting Heart Rate: 108 bpm Resting Blood Pressure: 170/80mmHg Submaximum (85%): 117 bpm PROCEDURE Pharmacologic stress testing was performed using 0.4mg per 5ml of regadenoson given intravenously over 7-10 seconds. POST EXERCISE Reason for Termination: Protocol completed Target HR: No Max HR: 109 bpm 89% of Maximum Predicted HR: 138 bpm Exercise duration: 00:33 min:sec, 0 Stage Exercise capacity: 1.0METs Max Blood Pressure: 170/80mmHg Blood Pressure response to exercise: resting hypertension - appropriate response Heart Rate response to exercise: appropriate Chest Pain: No, none Angina index: 0 Arrhythmia: Yes, PVCs. ST Change: Yes, Less than 1mm ST Depression in 2,3,AVF,V5,V6. Deviation: 0 mm INTERPRETATION Stress EKG Conclusion: IV LEXISCAN NUCLEAR STRESS TEST NEGATIVE FOR CHEST PAIN AND NEGATIVE FOR ANY SIGNIFICANT ST-T CHANGES. NUCLEAR SCAN REPORT TO FOLLOW. Signed by Gladis Faye Electronically Approved: 02/26/2018 11:16:17 EXAM: Myocardial Perfusion REST/STRESS Stress Test Type: Pharmacologic Imaging Protocol Rest Spect myocardial perfusion imaging was performed in supine position 50 minutes following the injection of 10.6 mCi of Tc-99 Myoview. At peak stress, the patient was injected intravenously with 30.2mCi of Tc-99 tetrofosmin after an infusion time of 0 minutes and 10 seconds. Gated Stress Spect was performed 65 minutes after intravenous Tc-99 Myoview injection. The images were gated to evaluate regional wall motion and calculate ventricular ejection fraction.Images were reconstructed using backfilter projection method in short horizontal and verticle long axis. Spect slices were generated. LV Perfusion The quality of the study is good. The left ventricle is within normal limits in size. The right ventricle is unremarkable. The lung uptake is normal. The distribution of tracer reveals mildly to moderately decreased perfusion in the inferior wall on the stress study. The remainder of the LV myocardium is unremarkable. The rest myocardial perfusion study shows no significant change. Wall Motion Wall motion study shows good contractility of the left ventricle. LVEF = 55%. Conclusion 1. Essentially normal SPECT myocardial perfusion study. 2. Fixed, inferior defect is most likely due to diaphrgmatic attenuation. 3. Normal gated wall motion and thicknening of the left ventricle.
[2018-02-27] MEDS: Levalbuterol 1.25 MG/3 ML Inhal Soln UD IH SCH ×4 (01:40→19:23)
--- NOTE | 2018-02-27 08:57 | CP.PCM.PN ---
Subjective - Date & Time of Evaluation Date of Evaluation: 02/27/18 Time of Evaluation: 07:00 - Subjective Subjective: Patient seen and examined at bedside this AM. Patient has no complaints or concerns beside foot pain for which podiatry is consulted. Patient underwent stress test yesterday which was "essentially normal" Objective - Vital Signs/Intake and Output Vital Signs (last 24 hours): Temp Pulse Resp BP Pulse Ox 98.8 F 100 H 15 135/94 H 98 02/27/18 06:00 02/27/18 06:00 02/27/18 06:00 02/27/18 06:00 02/27/18 06:00 Intake and Output: 02/27/18 02/27/18 06:59 18:59 Intake Total 0 Output Total 650 Balance -650 - Medications Medications: Current Medications Apixaban (Eliquis) 2.5 mg PO BID [facility] PRN Reason: Protocol Last Admin: 02/26/18 17:46 Dose: 2.5 mg Aspirin (Ecotrin) 81 mg PO DAILY [facility] Last Admin: 02/26/18 09:16 Dose: 81 mg Azithromycin (Zithromax) 250 mg PO DAILY [facility] Stop: 02/27/18 13:31 Last Admin: 02/26/18 13:35 Dose: 250 mg Diltiazem HCl (Cardizem Cd) 360 mg PO DAILY [facility] Last Admin: 02/26/18 09:15 Dose: 360 mg Furosemide (Lasix) 40 mg IVP DAILY [facility] Last Admin: 02/26/18 09:14 Dose: 40 mg Ceftriaxone Sodium (Rocephin 1 Gram Ivpb) 1 gm in 100 mls @ 100 mls/hr IVPB DAILY [facility] PRN Reason: Protocol Levalbuterol HCl (Xopenex) 1.25 mg IH [id number] [facility] Last Admin: 02/27/18 08:05 Dose: 1.25 mg Metoprolol Succinate (Toprol Xl) 25 mg PO BID [facility] Last Admin: 02/26/18 17:46 Dose: 25 mg Phenytoin Sodium (Dilantin) 100 mg PO TID [facility] Last Admin: 02/26/18 17:47 Dose: 100 mg - Labs Labs: 02/25/18 06:00 02/25/18 06:00 PT 11.8 SECONDS (9.4-12.5) 02/22/18 05:50 INR 1.03 (0.93-1.08) 02/22/18 05:50 APTT 26.4 Seconds (25.1-36.5) 02/22/18 05:50 - Constitutional Appears: Well, Non-toxic, No Acute Distress - Head Exam Head Exam: ATRAUMATIC, NORMOCEPHALIC - Eye Exam Eye Exam: Normal appearance. absent: Conjunctival injection, Scleral icterus - ENT Exam ENT Exam: Mucous Membranes Moist, Normal Oropharynx - Respiratory Exam Respiratory Exam: NORMAL BREATHING PATTERN. absent: Accessory Muscle Use, Respiratory Distress - Cardiovascular Exam Cardiovascular Exam: RRR - GI/Abdominal Exam GI & Abdominal Exam: Soft. absent: Distended, Tenderness Additional comments: ostomy in the place in LUQ - Neurological Exam Neurological Exam: Alert, Awake, Oriented x3 - Psychiatric Exam Psychiatric exam: Normal Affect, Normal Mood - Skin Skin Exam: Dry, Intact, Normal Color, Warm Assessment and Plan - Assessment and Plan (Free Text) Assessment: 82M with abdominal aortic aneurysm Plan: Will follow up cardiology's pre-op risk assessment and recommendations for optimization F/U GI plans Will plan for AAA repair in the near future pending cardiology and GI assessment and optimization Continue current care per primary Patient will need to be off eliquis prior to OR--will address once plans are more clear Discussed with Dr. Mitchel Lau, PGY2
[2018-02-27] MEDS: cefTRIAXone 1 gm 1 GM/100 ML BAG IVPB SCH (09:31)
[2018-02-27] MEDS: Metoprolol Succinate 25 mg XL Tab PO SCH ×2 (09:35→17:30)
[2018-02-27] MEDS: diltiaZEM 180 mg/24 Hours CD Cap PO SCH (09:35)
--- NOTE | 2018-02-27 09:38 | CP.PCM.PN ---
<MacJoan - Last Filed: 02/27/18 09:34> Subjective - Date & Time of Evaluation Date of Evaluation: 02/27/18 Time of Evaluation: 09:34 - Subjective Subjective: Podiatry Progress Note- Dr. Campos 82 year old male seen at bedside with attending, Dr. Campos for right foot pain. He is seen resting comfortably at bedside. He admits that the bruising on his right foot is getting better. Currently denies any n/v/f/c/sob/cp. Objective - Vital Signs/Intake and Output Vital Signs (last 24 hours): Temp Pulse Resp BP Pulse Ox 98.8 F 100 H 15 135/94 H 98 02/27/18 06:00 02/27/18 06:00 02/27/18 06:00 02/27/18 06:00 02/27/18 06:00 Intake and Output: 02/27/18 02/27/18 06:59 18:59 Intake Total 0 Output Total 650 Balance -650 - Medications Medications: Current Medications Apixaban (Eliquis) 2.5 mg PO BID [facility] PR[facility] Reason: Protocol Last Admin: 02/26/18 17:46 Dose: 2.5 mg Aspirin (Ecotrin) 81 mg PO DAILY [facility] Last Admin: 02/26/18 09:16 Dose: 81 mg Azithromycin (Zithromax) 250 mg PO DAILY [facility] Stop: 02/27/18 13:31 Last Admin: 02/26/18 13:35 Dose: 250 mg Diltiazem HCl (Cardizem Cd) 360 mg PO DAILY [facility] Last Admin: 02/26/18 09:15 Dose: 360 mg Furosemide (Lasix) 40 mg IVP DAILY [facility] Last Admin: 02/26/18 09:14 Dose: 40 mg Ceftriaxone Sodium (Rocephin 1 Gram Ivpb) 1 gm in 100 mls @ 100 mls/hr IVPB DAILY [facility] PRN Reason: Protocol Last Admin: 02/27/18 09:31 Dose: 100 mls/hr Levalbuterol HCl (Xopenex) 1.25 mg IH [id number] [facility] Last Admin: 02/27/18 08:05 Dose: 1.25 mg Metoprolol Succinate (Toprol Xl) 25 mg PO BID [facility] Last Admin: 02/26/18 17:46 Dose: 25 mg Phenytoin Sodium (Dilantin) 100 mg PO TID [facility] Last Admin: 02/26/18 17:47 Dose: 100 mg - Labs Labs: 02/25/18 06:00 02/25/18 06:00 PT 11.8 SECONDS (9.4-12.5) 02/22/18 05:50 INR 1.03 (0.93-1.08) 02/22/18 05:50 APTT 26.4 Seconds (25.1-36.5) 02/22/18 05:50 - Constitutional Appears: Well, Non-toxic, No Acute Distress - Extremities Exam Additional comments: lower extremity focused exam: VASC: DP and PT non-palpable, CFT delayed > 4 seconds to digits x 10, LE pitting edema B/L, nonpitting edema noted to the dorsum midfoot of right foot, temperature to the LE is cool to cool bilaterally, no increase warmth the the area of concern ORTHO: mild-moderate pain with palpation to the dorsum of right midfoot at lateral cuneiform and cuboid region, no palpable bony prominence noted, no pain appreciated with palpation to the digits 1-5 where ecchymotic changes are noted to the digits, MM is 4/5 in all four compartments appropriate for age, able to wiggle toes NEURO: gross protection intact, protective sensation diminished DERM: ecchymosis noted to dorsum of 1-5 at the level of the IPJs measuring approximately 2.5 cm in length along the digits. No open lesions noted, no fluctuannce, no abscess, no blisters, erythema noted to the dorsum of the right midfoot, no cellulitic changes noted. bruised healing ecchymotic skin noted to medial and lateral malleolus, elongated, hypertrophic toe nails with yellow discoloration and subungal debris x10, generalized xerosis noted to the entire LE - Neurological Exam Neurological Exam: Alert, Awake, Oriented x3 - Psychiatric Exam Psychiatric exam: Normal Affect, Normal Mood Assessment and Plan - Assessment and Plan (Free Text) Assessment: 82 year old male with likely non-displaced chip fracture of lateral cuneiform/ cuboid and enlongated nails x10. Plan: Patient examined and evaluated with attending Dr. Campos X-rays reviewed- IMPRESSION Potential flake chip osseous avulsion dorsal midfoot with regional soft tissue swelling dorsal midfoot correlate clinically with point tenderness. No additional or other more significant appearing fractures suggested Patient to WBAT in surgical shoe to the heel SHA/PVR relatively normal at rest Elevate LE LacHydrin to be applied to RLE B/L legs wraped with TAIWO, to be worn during the day and removed at night Nails 1-5 b/l were sharply debrided without incident thank you for allowing us to participate in the care for your patient please reconsult as needed <Rio Campos - Last Filed: 03/02/18 11:47> Objective - Vital Signs/Intake and Output Vital Signs (last 24 hours): Temp Pulse Resp BP Pulse Ox 98.2 F 85 20 135/81 96 03/02/18 07:56 03/02/18 09:31 03/02/18 07:56 03/02/18 09:31 03/02/18 07:56 Intake and Output: 03/02/18 03/02/18 06:59 18:59 Intake Total 360 Output Total 200 Balance 160 - Medications Medications: Current Medications Apixaban (Eliquis) 5 mg PO BID [facility] PRN Reason: Protocol Last Admin: 03/02/18 09:32 Dose: 5 mg Aspirin (Ecotrin) 81 mg PO DAILY [facility] Last Admin: 03/02/18 09:31 Dose: 81 mg Diltiazem HCl (Cardizem Cd) 360 mg PO DAILY [facility] Last Admin: 03/02/18 09:30 Dose: 360 mg Furosemide (Lasix) 40 mg IVP DAILY [facility] Last Admin: 03/02/18 09:29 Dose: 40 mg Ceftriaxone Sodium (Rocephin 1 Gram Ivpb) 1 gm in 100 mls @ 100 mls/hr IVPB DAILY [facility] PRN Reason: Protocol Last Admin: 03/02/18 09:29 Dose: 100 mls/hr Levalbuterol HCl (Xopenex) 1.25 mg IH [id number] [facility] Last Admin: 03/02/18 07:15 Dose: Not Given Metoprolol Succinate (Toprol Xl) 25 mg PO BID [facility] Last Admin: 03/02/18 09:31 Dose: 25 mg Phenytoin Sodium (Dilantin) 100 mg PO TID [facility] Last Admin: 03/02/18 09:31 Dose: 100 mg - Labs Labs: 03/02/18 08:00 03/02/18 08:00 PT 12.8 SECONDS (9.4-12.5) H 03/02/18 08:00 INR 1.11 (0.93-1.08) H 03/02/18 08:00 APTT 28.5 Seconds (25.1-36.5) 03/02/18 08:00 Attending/Attestation - Attestation I have personally seen and examined this patient.: Yes I have fully participated in the care of the patient.: Yes I have reviewed all pertinent clinical information, including history, physical exam and plan: Yes
--- NOTE | 2018-02-27 14:46 | PN ---
DATE: 02/27/2018 SUBJECTIVE: The patient is 82 years old, seen and examined, sitting in chair. Seems to be comfortable. No chest pain. No shortness of breath. No nausea or vomiting. No diarrhea. PHYSICAL EXAMINATION: VITAL SIGNS: He is afebrile, pulse 90, respirations 15, blood pressure 160/94. LUNGS: Bilateral fair airflow. No rhonchi or crackle. HEART: S1 and S2 audible. ABDOMEN: Soft. Nontender. No rebound. No guarding. NEUROLOGIC: He is awake, alert, oriented, able to communicate, ambulatory. EXTREMITIES: His left foot, he has bruise on his toes and erythema of the dorsum of the foot secondary to trauma almost 2 weeks ago. LABORATORY EXAM: Hemoglobin A1c is 5.2. Blood culture, urine cultures are negative. Had stress test done that is unremarkable. Bilateral leg Doppler unremarkable. CT scan of the abdomen and pelvis was done that shows large infrarenal abdominal aortic aneurysm 5.6 cm and 10 cm in length. There is moderate amount of mural thrombus and iliac arteries are moderately dilated. ASSESSMENT: 1. Atrial fibrillation. 2. 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 3. Right lower lobe pneumonia, resolving. 4. Infrarenal aortic aneurysm. 5. Seizure disorder. 6. Hypertension. 7. Right foot traumatic leg avulsion. PLAN: I will talk to Dr. Hinton. Should be getting endoscopy before going for aortic aneurysm repair. Since we need to verify if he need any intervention for his hypopharyngeal pouch. Once the patient's stress test is okay, if he is cleared from GI point of view, we can proceed for aortic aneurysm repair. We will continue him on Zithromax and Rocephin for now. I will talk to Jamaal. Tri Fleming MD
[2018-02-28] MEDS: Levalbuterol 1.25 MG/3 ML Inhal Soln UD IH SCH ×4 (01:28→20:10)
--- NOTE | 2018-02-28 09:41 | CP.PCM.PN ---
Subjective - Date & Time of Evaluation Date of Evaluation: 02/28/18 Time of Evaluation: 08:00 - Subjective Subjective: Vascular surgery progress note for Dr. Fariba Cervantes, PGY-1 Pt S & E at bedside at 0800 Pt sitting up in bed, eating breakfast. No complaints. Denies N & V, F & C, ab pain, chest pain, SOB, other complaints. Objective - Vital Signs/Intake and Output Vital Signs (last 24 hours): Temp Pulse Resp BP Pulse Ox 98.0 F 97 H 19 140/90 96 02/28/18 06:00 02/28/18 06:00 02/28/18 06:00 02/28/18 06:00 02/28/18 06:00 Intake and Output: 02/28/18 02/28/18 06:59 18:59 Intake Total 480 Output Total 300 Balance 180 - Medications Medications: Current Medications Apixaban (Eliquis) 2.5 mg PO BID [facility] PRN Reason: Protocol Last Admin: 02/27/18 17:30 Dose: 2.5 mg Aspirin (Ecotrin) 81 mg PO DAILY [facility] Last Admin: 02/27/18 09:36 Dose: 81 mg Diltiazem HCl (Cardizem Cd) 360 mg PO DAILY [facility] Last Admin: 02/27/18 09:35 Dose: 360 mg Furosemide (Lasix) 40 mg IVP DAILY [facility] Last Admin: 02/27/18 09:34 Dose: 40 mg Ceftriaxone Sodium (Rocephin 1 Gram Ivpb) 1 gm in 100 mls @ 100 mls/hr IVPB DAILY [facility] PRN Reason: Protocol Last Admin: 02/27/18 09:31 Dose: 100 mls/hr Levalbuterol HCl (Xopenex) 1.25 mg IH [id number] [facility] Last Admin: 02/28/18 09:17 Dose: 1.25 mg Metoprolol Succinate (Toprol Xl) 25 mg PO BID [facility] Last Admin: 02/27/18 17:30 Dose: 25 mg Phenytoin Sodium (Dilantin) 100 mg PO TID [facility] Last Admin: 02/27/18 17:30 Dose: 100 mg - Labs Labs: 02/25/18 06:00 02/25/18 06:00 PT 11.8 SECONDS (9.4-12.5) 02/22/18 05:50 INR 1.03 (0.93-1.08) 02/22/18 05:50 APTT 26.4 Seconds (25.1-36.5) 02/22/18 05:50 - Constitutional Appears: Non-toxic, No Acute Distress - Head Exam Head Exam: ATRAUMATIC, NORMAL INSPECTION, NORMOCEPHALIC - Eye Exam Eye Exam: EOMI, Normal appearance - ENT Exam ENT Exam: Mucous Membranes Moist, Normal Exam - Neck Exam Neck Exam: Full ROM, Normal Inspection - Respiratory Exam Respiratory Exam: NORMAL BREATHING PATTERN - Cardiovascular Exam Cardiovascular Exam: REGULAR RHYTHM, +S1, +S2 - GI/Abdominal Exam GI & Abdominal Exam: Soft. absent: Distended, Firm, Guarding, Rigid, Tenderness Additional comments: ostomy in place- moderate amount of soft stool in bag - Extremities Exam Extremities Exam: Normal Inspection. absent: Pedal Edema - Neurological Exam Neurological Exam: Alert, Awake, CN II-XII Intact, Oriented x3 - Psychiatric Exam Psychiatric exam: Normal Affect, Normal Mood - Skin Skin Exam: Dry, Intact, Normal Color, Warm Assessment and Plan - Assessment and Plan (Free Text) Assessment: 82M w/AAA Plan: GI recommends EGD prior to surgical intervention Plan for AA pending cardiology recommendations and EGD with GI Further mgmt as per primary team Plan to hold Eliquis prior to OR Will DW attending Helen, PGY-1
[2018-02-28] MEDS: Metoprolol Succinate 25 mg XL Tab PO SCH ×2 (09:42→17:44)
[2018-02-28] MEDS: cefTRIAXone 1 gm 1 GM/100 ML BAG IVPB SCH (09:42)
[2018-02-28] MEDS: diltiaZEM 180 mg/24 Hours CD Cap PO SCH (09:43)
--- NOTE | 2018-02-28 10:48 | PN ---
DATE: 02/28/2018 SUBJECTIVE: The patient has no complaints of any chest pain. No shortness of breath. No headaches or dizziness. PHYSICAL EXAMINATION: VITAL SIGNS: Temperature is 98, pulse of 97, blood pressure 140/90, respirations 19. GENERAL: The patient is lying in bed, flat, comfortable. HEENT: No oral lesion. Anicteric sclerae. Moist mucosa. NECK: No JVD, adenopathy or thyromegaly. CARDIOVASCULAR: S1 and S2, regular. No murmurs, rubs, or gallops. LUNGS: Clear to auscultation bilaterally. No wheeze, rales, or rhonchi. ABDOMEN: Bowel sounds are positive, soft, nontender and nondistended. EXTREMITIES: No cyanosis, clubbing or edema. LABORATORY DATA: White count of 3.9, hemoglobin 9.7. ASSESSMENT: 1. Atrial fibrillation. 2. Pharyngeal pouch, status post foreign body removal by endoscopy. 3. Right lower lobe pneumonia, improved. 4. Infrarenal aortic aneurysm, is 5.6 cm x 10 cm. 5. Seizure disorder. 6. Hypertension. 7. Right foot traumatic leg avulsion. PLAN: The patient is going for an EGD tomorrow by Dr. Hinton, I did speak to him. The patient is on Dilantin for his seizure disorder. He is on Cardizem. He is going to continue with Eliquis. He is on Rocephin for antibiotics. He is on metoprolol. He is on a heart-healthy diet. He is being followed by Dr. Greenfield from Cardiology. Arnie Pool MD
--- NOTE | 2018-02-28 18:54 | PN ---
DATE: 02/28/2018 SUBJECTIVE: This patient was seen and evaluated earlier today. Discussed with Dr. Pool. This is an 82-year-old patient. The patient is tolerating the diet and no difficulty in swallowing. PHYSICAL EXAMINATION: VITAL SIGNS: The patient is afebrile, blood pressure 150/94. HEENT: Atraumatic, anicteric. NECK: Supple. HEART: S1 and S2 heard. LUNGS: Bilateral air entry present. ABDOMEN: Soft and nontender. There is no mass palpable. EXTREMITIES: No cyanosis. There is left foot bruising present. LABORATORY DATA: . ASSESSMENT: This 82-year-old with a history of atrial fibrillation, pharyngeal pouch, status post removal of the foreign body, has readmitted with right lower lobe pneumonia improved. The patient has with some labs, seen and evaluated for perivascular plan for intervention. The patient has a history of seizure disorder, hypertension, right foot injury. RECOMMENDATION: I had a detailed discussion with the patient and the patient is scheduled for an upper GI endoscopy. The patient has a history of thrombocytopenia. The patient would benefit from upper GI endoscopy to further evaluate the pharyngeal pouch. Since the patient is going for a perivascular procedure, it is reasonable to do the upper GI endoscopy. The patient has a history of end-colostomy, has a history of rectal CA. Other problems include seizure disorder, hypertension. We will continue to closely follow up his care and suggest further management based on the clinical course. Samson Hinton MD
[2018-03-01] MEDS: Levalbuterol 1.25 MG/3 ML Inhal Soln UD IH SCH ×4 (02:07→20:05)
[2018-03-01 07:25] LABS: HEMOGLOBIN 9.7 g/dL (14.0-18.0); MEAN CELL VOLUME 93.3 fl (80.0-105.0); MEAN CORPUSCULAR HEMOGLOBIN 29.7 pg (25.0-35.0); MEAN CORPUSCULAR HGB CONC 31.8 g/dl (31.0-37.0); MEAN PLATELET VOLUME 8.3 fl (7.0-11.0); RBC 3.27 10^6/uL (3.5-6.1); RED CELL DISTRIBUTION WIDTH 15.3 % (11.5-14.5)
--- NOTE | 2018-03-01 09:15 | CP.PCM.PN ---
Subjective - Date & Time of Evaluation Date of Evaluation: 03/01/18 Time of Evaluation: 07:00 - Subjective Subjective: PGY-1 surgery progress note for Dr. Grullon Patient seen and examined. Patient doing well this morning and reports no complaints at this time. Patient is for GI workup later this morning. Objective - Vital Signs/Intake and Output Vital Signs (last 24 hours): Temp Pulse Resp BP Pulse Ox 98.2 F 92 H 12 156/85 H 96 03/01/18 08:10 03/01/18 08:10 03/01/18 08:10 03/01/18 08:10 03/01/18 08:10 Intake and Output: 03/01/18 03/01/18 06:59 18:59 Intake Total 120 Output Total 500 Balance -380 - Medications Medications: Current Medications Apixaban (Eliquis) 2.5 mg PO BID [facility] PRN Reason: Protocol Last Admin: 02/28/18 17:44 Dose: 2.5 mg Aspirin (Ecotrin) 81 mg PO DAILY [facility] Last Admin: 02/28/18 09:43 Dose: 81 mg Diltiazem HCl (Cardizem Cd) 360 mg PO DAILY [facility] Last Admin: 02/28/18 09:43 Dose: 360 mg Furosemide (Lasix) 40 mg IVP DAILY [facility] Last Admin: 02/28/18 09:59 Dose: 40 mg Ceftriaxone Sodium (Rocephin 1 Gram Ivpb) 1 gm in 100 mls @ 100 mls/hr IVPB DAILY [facility] PRN Reason: Protocol Last Admin: 02/28/18 09:42 Dose: 100 mls/hr Levalbuterol HCl (Xopenex) 1.25 mg IH [id number] [facility] Last Admin: 03/01/18 08:49 Dose: Not Given Metoprolol Succinate (Toprol Xl) 25 mg PO BID [facility] Last Admin: 02/28/18 17:44 Dose: 25 mg Phenytoin Sodium (Dilantin) 100 mg PO TID [facility] Last Admin: 02/28/18 17:44 Dose: 100 mg - Labs Labs: 03/01/18 07:18 02/25/18 06:00 PT 11.8 SECONDS (9.4-12.5) 02/22/18 05:50 INR 1.03 (0.93-1.08) 02/22/18 05:50 APTT 26.4 Seconds (25.1-36.5) 02/22/18 05:50 - Constitutional Appears: No Acute Distress - Head Exam Head Exam: ATRAUMATIC, NORMOCEPHALIC - Eye Exam Eye Exam: EOMI, Normal appearance - ENT Exam ENT Exam: Mucous Membranes Moist - Respiratory Exam Respiratory Exam: NORMAL BREATHING PATTERN. absent: Respiratory Distress - Cardiovascular Exam Cardiovascular Exam: Irregular Rhythm, +S1, +S2 - GI/Abdominal Exam GI & Abdominal Exam: Soft. absent: Distended, Tenderness Additional comments: Left sided ostomy in place - Extremities Exam Additional comments: Bruising on right foot along the phalanges Erythema on dorsum of right foot Bilateral DP/PT pulses obtained with doppler - Neurological Exam Neurological Exam: Alert, Awake, Oriented x3 - Psychiatric Exam Psychiatric exam: Normal Affect, Normal Mood - Skin Skin Exam: Dry, Warm Assessment and Plan - Assessment and Plan (Free Text) Assessment: This is an 82 year old male with infrarenal abdominal aortic aneurysm that was measured 5.9 cm wide by 10 cm long by 5.[address] scan on this admission. Plan: Aneurysm has been increasing in size since last documented on file in 2011 (3.6 cm wide.) Echo shows LVEF 65% with some LVH and diastolic dysfunction Patient is awaiting EGD scheduled for later this morning Patient meets indications for abdominal aortic aneurysm repair and is amenable to having surgery done Per cardiology, normal stress test but patient will need to be off of Eliquis for 48 hours prior to vascular procedure Once cleared by GI, primary will clear patient for surgery Further recs per Dr. Mitchel Foster PGY-1
[2018-03-01] MEDS ORDERED: Propofol 10 mg/ml Inj (20 ML) ONE (09:25)
[2018-03-01] MEDS ORDERED: Sodium Chloride 0.9% 1,000 ML IV SCH (09:45)
[2018-03-01] MEDS: cefTRIAXone 1 gm 1 GM/100 ML BAG IVPB SCH (10:50)
[2018-03-01] MEDS: Metoprolol Succinate 25 mg XL Tab PO SCH ×2 (10:51→17:23)
[2018-03-01] MEDS: diltiaZEM 180 mg/24 Hours CD Cap PO SCH (10:51)
--- NOTE | 2018-03-01 14:14 | PN ---
DATE: 03/01/2018 SUBJECTIVE: The patient is an 82 years old, seen and examined, underwent endoscopy and spoke to Dr. Hinton. In his opinion, pouch is not significant to cause any problem in the future, so it is okay to go ahead for surgery. The patient also had stress done that was unremarkable. PHYSICAL EXAMINATION: GENERAL: He is awake, alert, oriented, communicative. No chest pain. No shortness of breath. No nausea or vomiting. No diarrhea. Eating and tolerating. VITAL SIGNS: He is afebrile, pulse 90, respirations 12, blood pressure 146/94. LUNGS: Bilateral fair airflow. No rhonchi or crackles. HEART: S1 and S2 audible, regular, rate controlled. ABDOMEN: Soft. Nontender. No rebound. No guarding. He has colostomy that is functional. EXTREMITIES: Bilateral legs, no more edema. LABORATORY DATA: WBC 3, hemoglobin 9.7, hematocrit 30.5, platelets of 86. Chemistry: Sodium 147, potassium 4.2, chloride 107, CO2 26, BUN 21, creatinine 1. Blood sugar of 113, PSA is 7.4. Blood cultures and urine cultures are negative. Stress test is unremarkable. Endoscopy shows Zenker's diverticulum, small gastric erosion, nonbleeding gastric ulcers with clean base. ASSESSMENT: 1. Right lower lobe pneumonia, resolving. 2. Atrial fibrillation, rate controlled. 3. Hypertension. 4. Hyperlipidemia. 5. Seizure disorder. 6. Right foot contusion. PLAN: The patient is cleared from Cardiology and GI point of view. We will hold his Eliquis and we will reach out to Dr. Grullon. We will arrange him for surgery. Tri Fleming MD
--- NOTE | 2018-03-01 16:02 | PN ---
DATE: 03/01/2018 SUBJECTIVE: Preop evaluation, risk stratification for abdominal aortic aneurysm, initially admitted with shortness of breath. The patient denies any chest pain, shortness of breath or any palpitations, going for endoscopy today. He is n.p.o. PHYSICAL EXAMINATION: VITAL SIGNS: As follows, temperature afebrile, heart rate 90, blood pressure 146/94. HEENT: PERRLA. Extraocular muscles intact. NECK: Supple. No carotid bruit or thyromegaly. CHEST: Clear to auscultation. HEART: S1 and S2 regular. ABDOMEN: Soft. EXTREMITIES: Clubbing and cyanosis negative. LABORATORY DATA: Blood workup as follows, WBC 3, hemoglobin 9, hematocrit 30.5, platelet count 86. Chemistry shows sodium 143, potassium 4.2, chloride 107, carbon dioxide 26, anion gap of 17. BUN 21, creatinine 1. Hemoglobin A1c is 5.2. Total protein 6.1, albumin 2.6, albumin-globulin ratio 1.4. TSH is 1.62. IMPRESSION: Abdominal aortic aneurysm; preop evaluation; risk stratification: pneumonia; chronic atrial fibrillation; mural thrombus; abdominal aortic aneurysm which is infrarenal, 5.5 cm in diameter, 5.2 cm in AP diameter, 10 cm in length. Stress test is negative for ischemia, essentially normal myocardial perfusion study. History of Zenker's diverticulum, history of angioplasty, plain balloon angioplasty in 1990. Echo shows ejection fraction of 55% with of normal ejection fraction, moderate concentric left ventricular hypertrophy, moderate mitral regurgitation, trace aortic regurgitation. Right foot injury secondary to dinner plate falling down on his feet, history of colon cancer, history of colostomy. As mentioned, his stress test is done for risk stratification on 02/26/2018 and is essentially normal myocardial perfusion study most likely secondary to diaphragmatic attenuation. No ischemia noted. Ejection fraction of 65%. RECOMMENDATIONS: Continue perioperative beta-tammy. Continue Cardizem. Continue Eliquis; 48 hours before the vascular surgery, discontinue Eliquis. Discuss with resident. Discuss with Dr. Fleming. The patient is okay to go with high risk because of underling comorbidity and high risk vascular procedure. We will follow with you. Gladis Greenfield MD [facility] # [id number]
[2018-03-02] MEDS: Levalbuterol 1.25 MG/3 ML Inhal Soln UD IH SCH ×3 (01:46→13:33)
[2018-03-02 07:57] VITALS: BP 135/81; PULSE 85; RESP 20; TEMP 98.2; O2SAT 96
[2018-03-02 08:15] LABS: BASO # 0.02 K/mm3 (0.0-2.0); BASO % 0.6 % (0.0-3.0); EOS # 0.1 (0.0-0.7); EOS % 2.8 % (1.5-5.0); GRAN # 2.1 (1.4-6.5); GRAN % 66.5 % (50.0-68.0); HEMOGLOBIN 9.8 g/dL (14.0-18.0); LYMPH # 0.6 (1.2-3.4); MEAN CELL VOLUME 92.4 fl (80.0-105.0); MEAN CORPUSCULAR HGB CONC 32.5 g/dl (31.0-37.0); MEAN PLATELET VOLUME 7.8 fl (7.0-11.0); MONO # 0.4 (0.1-0.6); MONO % 11.1 % (1.0-6.0); RBC 3.27 10^6/uL (3.5-6.1); RED CELL DISTRIBUTION WIDTH 15.1 % (11.5-14.5); WHITE BLOOD COUNT 3.2 10^3/ul (4.5-11.0)
[2018-03-02 08:30] LABS: BLOOD UREA NITROGEN 28 mg/dL (7-21); CALCIUM 8.7 mg/dL (8.4-10.5); GFR AFRICAN-AMERICAN > 60; GFR NON-AFRICAN AMERICAN > 60
[2018-03-02 08:32] LABS: INR 1.11 (0.93-1.08); PARTIAL THROMBOPLASTIN TIME 28.5 Seconds (25.1-36.5); PROTHROMBIN TIME 12.8 SECONDS (9.4-12.5)
--- NOTE | 2018-03-02 08:42 | CP.PCM.PN ---
Subjective - Date & Time of Evaluation Date of Evaluation: 03/02/18 Time of Evaluation: 07:10 - Subjective Subjective: Patient seen and examined at bedside. Complains of persistent foot pain but no other complaints or concerns. Objective - Vital Signs/Intake and Output Vital Signs (last 24 hours): Temp Pulse Resp BP Pulse Ox 98.2 F 85 20 135/81 96 03/02/18 07:56 03/02/18 07:56 03/02/18 07:56 03/02/18 07:56 03/02/18 07:56 Intake and Output: 03/02/18 03/02/18 06:59 18:59 Intake Total 360 Output Total 200 Balance 160 - Medications Medications: Current Medications Apixaban (Eliquis) 5 mg PO BID [facility] PRN Reason: Protocol Last Admin: 03/01/18 17:23 Dose: 5 mg Aspirin (Ecotrin) 81 mg PO DAILY [facility] Last Admin: 03/01/18 10:51 Dose: 81 mg Diltiazem HCl (Cardizem Cd) 360 mg PO DAILY [facility] Last Admin: 03/01/18 10:51 Dose: 360 mg Furosemide (Lasix) 40 mg IVP DAILY [facility] Last Admin: 03/01/18 10:51 Dose: 40 mg Ceftriaxone Sodium (Rocephin 1 Gram Ivpb) 1 gm in 100 mls @ 100 mls/hr IVPB DAILY [facility] PRN Reason: Protocol Last Admin: 03/01/18 10:50 Dose: 100 mls/hr Levalbuterol HCl (Xopenex) 1.25 mg IH [id number] [facility] Last Admin: 03/02/18 07:15 Dose: Not Given Metoprolol Succinate (Toprol Xl) 25 mg PO BID [facility] Last Admin: 03/01/18 17:23 Dose: 25 mg Phenytoin Sodium (Dilantin) 100 mg PO TID [facility] Last Admin: 03/01/18 17:23 Dose: 100 mg - Labs Labs: 03/02/18 08:00 03/02/18 08:00 PT 12.8 SECONDS (9.4-12.5) H 03/02/18 08:00 INR 1.11 (0.93-1.08) H 03/02/18 08:00 APTT 28.5 Seconds (25.1-36.5) 03/02/18 08:00 - Constitutional Appears: Well, Non-toxic, No Acute Distress - Head Exam Head Exam: ATRAUMATIC, NORMOCEPHALIC - Eye Exam Eye Exam: Normal appearance. absent: Conjunctival injection, Scleral icterus - ENT Exam ENT Exam: Mucous Membranes Moist, Normal Oropharynx - Respiratory Exam Respiratory Exam: NORMAL BREATHING PATTERN. absent: Accessory Muscle Use, Respiratory Distress - Cardiovascular Exam Cardiovascular Exam: RRR - GI/Abdominal Exam GI & Abdominal Exam: Soft. absent: Distended - Extremities Exam Extremities Exam: absent: Calf Tenderness, Pedal Edema Additional comments: right foot ecchymosis over the dorsal toes, improved since prior exam - Neurological Exam Neurological Exam: Alert, Awake, Oriented x3 - Psychiatric Exam Psychiatric exam: Normal Affect, Normal Mood - Skin Skin Exam: Dry, Intact, Warm Assessment and Plan - Assessment and Plan (Free Text) Assessment: 82M with evolving AAA Plan: Cardiology has cleared patient for AAA repair with high risk. Recommends taking patient off eliquis for 48 hours EGD yesterday identified persistent zenker's diverticulum but no acute inflammation or bleeding--Follow up official GI recs for surgical assessment Patient's platelets are 83 on automatic count today--manual count of [address] Grullon notified of the above, further surgical planning per Dr. Mitchel Lau, PGY2
[2018-03-02] MEDS: cefTRIAXone 1 gm 1 GM/100 ML BAG IVPB SCH (09:29)
[2018-03-02] MEDS: diltiaZEM 180 mg/24 Hours CD Cap PO SCH (09:30)
[2018-03-02] MEDS: Metoprolol Succinate 25 mg XL Tab PO SCH (09:31)
--- NOTE | 2018-03-02 12:41 | CP.PCM.PN ---
Subjective - Date & Time of Evaluation Date of Evaluation: 03/02/18 Time of Evaluation: 10:10 - Subjective Subjective: Seen and examined at the bedside earlier this morning, chart reviewed. Patient denies nausea, vomiting, or abdominal pain. Brown stool coming out from colostomy denies any bleeding. Status post endoscopy yesterday found to have Zenker's diverticulum and nonbleeding gastric ulcers with clean base. Family at bedside, he did state he had a piece of chicken that almost got stuck but able to bring up and stopped eating the chicken last night. Objective - Vital Signs/Intake and Output Vital Signs (last 24 hours): Temp Pulse Resp BP Pulse Ox 98.2 F 85 20 135/81 96 03/02/18 07:56 03/02/18 09:31 03/02/18 07:56 03/02/18 09:31 03/02/18 07:56 Intake and Output: 03/02/18 03/02/18 06:59 18:59 Intake Total 360 Output Total 200 Balance 160 - Medications Medications: Current Medications Apixaban (Eliquis) 5 mg PO BID [facility] PRN Reason: Protocol Last Admin: 03/02/18 09:32 Dose: 5 mg Aspirin (Ecotrin) 81 mg PO DAILY [facility] Last Admin: 03/02/18 09:31 Dose: 81 mg Diltiazem HCl (Cardizem Cd) 360 mg PO DAILY [facility] Last Admin: 03/02/18 09:30 Dose: 360 mg Furosemide (Lasix) 40 mg IVP DAILY [facility] Last Admin: 03/02/18 09:29 Dose: 40 mg Ceftriaxone Sodium (Rocephin 1 Gram Ivpb) 1 gm in 100 mls @ 100 mls/hr IVPB DAILY [facility] PRN Reason: Protocol Last Admin: 03/02/18 09:29 Dose: 100 mls/hr Levalbuterol HCl (Xopenex) 1.25 mg IH [id number] [facility] Last Admin: 03/02/18 07:15 Dose: Not Given Metoprolol Succinate (Toprol Xl) 25 mg PO BID [facility] Last Admin: 03/02/18 09:31 Dose: 25 mg Phenytoin Sodium (Dilantin) 100 mg PO TID [facility] Last Admin: 03/02/18 09:31 Dose: 100 mg - Labs Labs: 03/02/18 08:00 03/02/18 08:00 PT 12.8 SECONDS (9.4-12.5) H 03/02/18 08:00 INR 1.11 (0.93-1.08) H 03/02/18 08:00 APTT 28.5 Seconds (25.1-36.5) 03/02/18 08:00 - Constitutional Appears: No Acute Distress - Head Exam Head Exam: NORMOCEPHALIC - Eye Exam Eye Exam: Normal appearance. absent: Scleral icterus - ENT Exam ENT Exam: Mucous Membranes Moist - Neck Exam Neck Exam: Normal Inspection - Respiratory Exam Respiratory Exam: NORMAL BREATHING PATTERN. absent: Respiratory Distress - Cardiovascular Exam Cardiovascular Exam: +S1, +S2 - GI/Abdominal Exam GI & Abdominal Exam: Soft, Normal Bowel Sounds. absent: Guarding, Tenderness, Organomegaly, Rebound Additional comments: (+) colostomy, currently no stool emptied this am. - Extremities Exam Extremities Exam: absent: Calf Tenderness - Neurological Exam Neurological Exam: Alert, Awake, Oriented x3 Assessment and Plan - Assessment and Plan (Free Text) Assessment: ASSESSMENT: CHF S/P EGD 03/01/18 Zenker's Diverticulum, non bleeding gastric ulcers w/ clean base Pneumonia H/O colon cancer, s/p colectomy/colostomy Esophageal Stricture, h/o foreign body/esophageal diverticulum Thrombocytopenia Atrial Fibrillation Seizure disorder Abdominal Aortic Aneurysm PLAN: on soft foods, recommend puree or very soft food and chew very well. on oral antibiotics on Eliquis and Aspirin as per cardiology/vascular sx team Patient is planned to have vascular surgery as outpatient for special order mesh , timing as per surgery. Patient is aware of EGD findings, recommend GI prophylaxsis, patient is reluctant about taking PPI as previously explained recommend OTC H2B (Zantac or Pepcid) for short course, he was made aware he would need repeat EGD in at least 2 months to check healing of ulcers. Seen and discussed with Dr. Hinton
--- NOTE | 2018-03-02 15:58 | PN ---
DATE: 03/02/2018 REASON FOR CONSULTATION: Followup preop evaluation, risk stratification for abdominal aortic aneurysm. Initially, admitted with a shortness of breath, possible pneumonia. SUBJECTIVE: The patient denies any chest pain, shortness of breath or any palpitation. OBJECTIVE: GENERAL: Not in any apparent distress. VITAL SIGNS: Temperature afebrile, heart rate 85, blood pressure 135/81. HEENT: PERRLA, intact. NECK: Supple. No carotid bruit or thyromegaly. CHEST: Clear to auscultation. HEART: S1 and S2 regular. ABDOMEN: Soft. EXTREMITIES: Clubbing and cyanosis negative. LABORATORY DATA: Blood workup as follows; WBC 3.8, hemoglobin , hematocrit 30.2, platelet count 83. Chemistry shows sodium 140, potassium 4, chloride 106, carbon dioxide 27, anion gap of 15, BUN 20, creatinine 1.1. IMPRESSION: 1. Atrial fibrillation, chronic, was not on anticoagulation, started this admission. 2. Abdominal aortic aneurysm. Repeat CAT scan shows significantly improved abdominal aortic aneurysm. A 5.5 cm and 5.5 in AP diameter, 10 cm in length. Stress test preoperative is negative for ischemia. Again, the CAT scan shows abdominal aortic aneurysm, infrarenal 5.6 cm wide, 5.2 cm AP diameter, 8 cm in length, which is significant increase. In 2013, it was 3.6, 2 cm growth over a period of 5 years and scheduled for endovascular stent. History of plate fell down on the right feet and cellulitis. Shortness of breath secondary to possible pneumonia by CAT scan. The patient's echocardiography normal ejection fraction, moderate concentric left ventricular hypertrophy, moderate mitral regurgitation, trace aortic regurgitation. History of Zenker diverticulum; history of angioplasty, plain balloon in 1990 at [facility]. Ejection fraction by stress test 65%. RECOMMENDATIONS: The patient is cleared from Cardiology point of view to go for surgery. Continue Eliquis for now and hold Eliquis 48 hours before the surgery. Discussed with surgical technologist, discussed with Dr. Fleming. The patient has high risk for endovascular procedure for any intervention because of underlying comorbidity, but no absolute contraindication. No evidence of ischemia. No evidence of ID. No evidence of arrhythmia. Gladis Greenfield MD
--- NOTE | 2018-03-03 10:37 | PQF CHF ---
03/03/18 Dr. Greenfield, CHF is documented. Please specify whether this is acute/chronic, diastolic/ systolic. Thank you. Clarification of your documentation is requested to better reflect the severity of illness and intensity of treatment of your patient. Indicators present [] Diagnosis of CHF and/or history of CHF [] BNP > 200 [] Imaging Finding of Pulmonary Edema /Pleural Effusions [] Fluid/Volume Overload [] Pitting edema [] Ejection Fraction < 40% (Indicative of Systolic Heart Failure) [] Ejection Fraction > 40% (Indicative of Diastolic Heart Failure) [] Dyspnea / Orthopenea / Paroxysmal Nocturnal Dyspnea [] Other: Location in the medical record that reflects the above clinical findings: [] Treatment Provided: [] PHYSICIAN'S RESPONSE Based on your medical judgment of the clinical indicators outlined above, are you treating this patient for a known or suspected: [] Acute CHF [] Systolic [] Diastolic [] Combined [] Chronic CHF [] Systolic [] Diastolic [] Combined [x] Acute on Chronic CHF []Systolic [x] Diastolic [] Combined [] CHF due hypertension [] Acute systolic []Chronic systolic [] Acute/ chronic systolic [x] Other, please indicate: [x] arrythmia, A Fib [] If Unable to Determine, please check the box, sign and date. Present On Admission (POA) Indicator: [] Present at the time of admission [] Not present at the time of admission [] Clinically Undetermined In responding to this query, please exercise your independent professional judgment. The fact that a question is asked does not imply that any particular answer is desired or expected. Thank you for your clarification on this documentation. If you have any questions please call:[ ] * Thank you, [ ] traffic assistant [place]
--- NOTE | 2018-03-03 11:50 | DS ---
HISTORY OF PRESENT ILLNESS: The patient is 82-year-old who was initially admitted with cough, congestion, shortness of breath, and leg swelling. He attributes his leg edema because of PPIs since he has had side effect from it was switched to Zantac and he did not like that either. He thought this is the side effect to the medications; however, the patient came in because of increasing shortness of breath. He was found to have pneumonia and have been on IV antibiotics. The patient had followup CT of the abdomen and pelvis done that showed increase in size of aortic aneurysm. Dr. Grullon was consulted and plan is to have aortic aneurysm repair done as outpatient. During this admission, the patient also underwent endoscopy to follow up his pharyngeal pouch and his repeat endoscopy showed Zenker diverticulum, but there was no intervention needed at this time. PHYSICAL EXAMINATION: GENERAL: Today, he is awake, alert, oriented, and communicative. VITAL SIGNS: He is afebrile, pulse 85, respirations 20, blood pressure 135/81. LUNGS: Bilateral good airflow. No rhonchi or crackle. HEART: S1 and S2 audible. ABDOMEN: Soft, nontender. No rebound. No guarding. He has colostomy in place and is functioning. EXTREMITIES: Bilateral legs, no edema. LABORATORY DATA: WBC 3.2, hemoglobin 9.8, hematocrit 30, platelets of 83. His PT 12.8, INR 1.11. Chemistry: Sodium 143, potassium 4, chloride 106, CO2 27, BUN 28, creatinine 1.1. Blood sugar of 104. ASSESSMENT: 1. Community-acquired pneumonia, improved. 2. Zenker diverticulum. 3. Infrarenal aortic aneurysm measuring 5.6 cm x 5.2 cm and 10 cm in length. 4. Hypertension. 5. Seizure disorder. 6. Thrombocytopenia, chronic. PLAN: The patient is currently on diltiazem, we will continue that phenytoin. He has been started on Eliquis. We will discontinue his IV Rocephin. He is being discharged on Eliquis 5 mg twice a day and doxycycline 100 mg twice a day for three more days. The patient will be discharged today. Dr. Grullon will arrange for aortic aneurysm repair as outpatient and Eliquis will be stopped 48 hours prior to the surgical intervention. Tri Fleming MD [facility] # [id number]
== END 2018-03-02 15:21 | disposition home or self-care (01) | DRG 291 ==
LOC: ED 05:08 → ERH 07:44 → 2RSO 10:24 → 3RNO 03-01 15:31
PROVIDERS: ADMIT Internal Medicine; ATTEND Internal Medicine
PROC: 0DJ08ZZ Inspection of Upper Intestinal Tract, Via Natural or Artificial Opening Endoscopic (ICD-10-PCS; principal; 2018-03-01 09:00)
DX: I11.0 Hypertensive heart disease with heart failure (principal); J18.9 Pneumonia, unspecified organism; I50.33 Acute on chronic diastolic (congestive) heart failure; J44.0 Chronic obstructive pulmonary disease with (acute) lower respiratory infection; L02.611 Cutaneous abscess of right foot; L03.115 Cellulitis of right lower limb; I48.92 Unspecified atrial flutter; G40.909 Epilepsy, unspecified, not intractable, without status epilepticus; E78.5 Hyperlipidemia, unspecified; I08.3 Combined rheumatic disorders of mitral, aortic and tricuspid valves; I25.10 Atherosclerotic heart disease of native coronary artery without angina pectoris; I48.2 Chronic atrial fibrillation; I51.3 Intracardiac thrombosis, not elsewhere classified; K21.0 Gastro-esophageal reflux disease with esophagitis; K22.5 Diverticulum of esophagus, acquired; K29.70 Gastritis, unspecified, without bleeding; Q38.7 Congenital pharyngeal pouch; Z85.048 Personal history of other malignant neoplasm of rectum, rectosigmoid junction, and anus; Z85.820 Personal history of malignant melanoma of skin; I71.4 Abdominal aortic aneurysm, without rupture; K25.9 Gastric ulcer, unspecified as acute or chronic, without hemorrhage or perforation; Z87.891 Personal history of nicotine dependence; Z90.49 Acquired absence of other specified parts of digestive tract; Z95.5 Presence of coronary angioplasty implant and graft; J98.8 Other specified respiratory disorders; D69.59 Other secondary thrombocytopenia; T42.0X5A Adverse effect of hydantoin derivatives, initial encounter; R40.2412 Glasgow coma scale score 13-15, at arrival to emergency department

== ENCOUNTER 2018-03-13 07:54 | Inpatient (IN) | payer MEDICARE ==
[2018-03-13 07:55] VITALS: BMI 23.0
[2018-03-13] MEDS ORDERED: Nitroglycerin 2% Ointment Foilpak UD TOP STA (08:07)
--- NOTE | 2018-03-13 08:11 | ED PDOC ---
Arrival/HPI - General Chief Complaint: Chest Pain Time Seen by Provider: 03/13/18 07:56 Historian: Patient - History of Present Illness Time/Duration: Other (early this morning) Symptom Onset: Sudden Symptom Course: Resolved Quality: Aching Severity Level: Mild Activities at Onset: Sleeping Associated Symptoms (Text): 03/13/18 08:08 Patient was woken from sleep early this morning with chest pain. No radiation. There was some dyspnea. No diaphoresis. No nausea or vomiting. No dizziness or lightheadedness. The pain lasted for approximately 4 hours and resolved on its own prior to arrival. He takes aspirin and eliquis. He is scheduled for an abdominal aortic aneurysm repair in 3 days. There is no abdominal pain. Past Medical History - Infectious Disease Hx of Infectious Diseases: None - Tetanus Immunization Tetanus Immunization: Up to Date - Cardiac Hx Pacemaker: No - Pulmonary Hx Respiratory Disorders: Yes (USED TO SMOKE CIGARETTES.QUIT 1990) - Neurological HX Cerebrovascular Accident: Yes (aneurysm) Hx Paralysis: No - HEENT Hx HEENT Disorder: Yes Other/Comment: uses eyeglasses,use dentures - Renal Hx Renal Disorder: No - Endocrine/Metabolic Hx Endocrine Disorders: No - Hematological/Oncological Hx Blood Transfusions: No - Integumentary Hx Dermatological Disorder: Yes Hx Melanoma: Yes (RIGHT PINNA,HEAD) Other/Comment: 02-22-18 BILAERAL LE EDEMA PITTING +2.MORE TO RIGHT THAN LEFT.LEFT LEG HAS DRY FLAKY SKIN.RIGHT ALL TOES HAS ROUND BRUISING TO EACH TOE.BLUISK PURPLISH HUE. - Musculoskeletal/Rheumatological Hx Musculoskeletal Disorders: No - Gastrointestinal Hx Gastrointestinal Disorders: Yes Hx Colostomy: Yes (2001) Hx Gastroesophageal Reflux: Yes HX Swallowing Problems: Yes Other/Comment: rectal cancer - Genitourinary/Gynecological Hx Genitourinary Disorders: Yes (UNDESCENDED TESTICLE) - Psychiatric Hx Psychophysiologic Disorder: No Hx Depression: No Hx Emotional Abuse: No Hx Physical Abuse: No Hx Substance Use: No - Surgical History Hx Angioplasty: Yes - Anesthesia Hx Anesthesia Reactions: No Hx Malignant Hyperthermia: No - Suicidal Assessment Feels Threatened In Home Enviroment: No Family/Social History - Physician Review Nursing Documentation Reviewed: Yes Family/Social History: Unknown Family HX Smoking Status: Former Smoker (quit smoking in 1990) Hx Alcohol Use: No Hx Substance Use: No Hx Substance Use Treatment: No Allergies/Home Meds Allergies/Adverse Reactions: Allergies No Known Allergies Allergy (Verified 03/13/18 07:57) Home Medications: Home Meds Medication Instructions Recorded Confirmed Aspirin [Aspir 81] 81 mg PO DAILY 11/12/13 03/13/18 Metoprolol Succinate [Toprol XL] 25 mg PO BID 11/12/13 03/13/18 Phenytoin Sodium Extended 100 mg PO TID 11/12/13 03/13/18 [Dilantin] Review of Systems - Physician Review All systems were reviewed & negative as marked: Yes - Review of Systems Constitutional: Normal Respiratory: SOB. absent: Cough Cardiovascular: Chest Pain. absent: Palpitations, Syncope Gastrointestinal: absent: Abdominal Pain, Nausea, Vomiting, Anorexia Neurological: absent: Headache, Dizziness, Focal Weakness Physical Exam Vital Signs Temp Pulse Resp BP Pulse Ox 03/13/18 10:30 98 F 77 18 142/79 95 03/13/18 07:54 98.2 F 88 18 148/85 97 Temperature: Afebrile Blood Pressure: Normal Pulse: Regular Respiratory Rate: Normal Appearance: Positive for: Well-Appearing, Non-Toxic, Comfortable Pain Distress: None Mental Status: Positive for: Alert and Oriented X 3 - Systems Exam Head: Present: Atraumatic, Normocephalic Pupils: Present: PERRL Extroacular Muscles: Present: EOMI Conjunctiva: Present: Normal Mouth: Present: Moist Mucous Membranes Pharnyx: No: ERYTHEMA, EXUDATE, TONSILS ENLARGED Neck: Present: Normal Range of Motion Respiratory/Chest: Present: Clear to Auscultation, Good Air Exchange, Decreased Breath Sounds. No: Respiratory Distress, Accessory Muscle Use Cardiovascular: Present: Irregular Rhythm, Other (normal rate) Abdomen: Present: Other (ileostomy). No: Tenderness, Distention, Peritoneal Signs, Rebound, Guarding Upper Extremity: Present: Normal Inspection. No: Cyanosis, Edema Lower Extremity: Present: Edema (1+ bilateral lower extremity edema) Neurological: Present: GCS=15, CN II-XII Intact, Speech Normal, Motor Func Grossly Intact Skin: Present: Warm, Dry, Normal Color. No: Rashes Psychiatric: Present: Alert, Oriented x 3, Normal Insight, Normal Concentration Medical Decision Making ED Course and Treatment: 03/13/18 08:10 EKG shows atrial flutter rate approximately 90 with PVCs and nonspecific ST and T-wave changes 03/13/18 09:05 Troponin is in positive range. BNP is markedly improved from previous. 03/13/18 10:32 was here to see the patient. - Lab Interpretations Lab Results: 03/13/18 08:12 03/13/18 08:12 Lab Results 03/13/18 08:12: Phenytoin 12 03/13/18 08:12: Sodium 144, Potassium 4.3, Chloride 106, Carbon Dioxide 27, Anion Gap 15, BUN 22 H, Creatinine 1.0, Est GFR ( Amer) > 60, Est GFR ( Non-Af Amer) > 60, Random Glucose 117 H, Calcium 8.9, Magnesium 2.0, Total Bilirubin 0.5, AST 30, ALT 45, Alkaline Phosphatase 92, Lactate Dehydrogenase 507, Total Creatine Kinase 29 L, Troponin I 0.04, NT-Pro-B Natriuret Pep 3300 H , Total Protein 6.1, Albumin 3.8, Globulin 2.4, Albumin/Globulin Ratio 1.6 03/13/18 08:12: PT 12.6 H, INR 1.10 H, APTT 29.1 03/13/18 08:12: WBC 3.5 L, RBC 3.45 L, Hgb 10.0 L, Hct 31.4 L, MCV 91.0, MCH 29.0, MCHC 31.8, RDW 14.7 H, Plt Count 98 L, MPV 8.2, Gran % 73.4 H, Lymph % ( Auto) 16.3 L, [place] % (Auto) 7.7 H, Eos % (Auto) 2.0, Baso % (Auto) 0.6, Gran # 2.56, Lymph # (Auto) 0.6 L, [place] # (Auto) 0.3, Eos # (Auto) 0.1, Baso # (Auto) 0.02 - RAD Interpretation Radiology Orders: 03/13/18 08:07 CHEST PORTABLE [RAD] Stat Chest 1 view shows no cardiomegaly. There are right perihilar increased markings and possible infiltrate. Cloth Shrinking Tester: ED Physician - Medication Orders Current Medication Orders: Discontinued Medications Nitroglycerin (Nitro-Bid 2% Oint) 1 ea TOP STAT STA Stop: 06/02/18 08:08 Last Admin: 03/13/18 08:16 Dose: 1 ea Disposition/Present on Arrival - Present on Arrival Any Indicators Present on Arrival: No History of DVT/PE: No History of Uncontrolled Diabetes: No Urinary Catheter: No History of Decub. Ulcer: No History Surgical Site Infection Following: None - Disposition Have Diagnosis and Disposition been Completed?: Yes Diagnosis: Chest pain, Elevated troponin, Dyspnea, Atrial flutter, Pedal edema Disposition: HOSPITALIZED Disposition Time: 09:17 Patient Plan: Admission, Telemetry Patient Problems: Current Active Problems Problem Status Onset Atrial flutter Acute Chest pain Acute Dyspnea Acute Elevated troponin Acute Pedal edema Acute Condition: FAIR
[2018-03-13 08:24] LABS: BASO # 0.02 K/mm3 (0.0-2.0); BASO % 0.6 % (0.0-3.0); EOS # 0.1 (0.0-0.7); GRAN # 2.56 (1.4-6.5); GRAN % 73.4 % (50.0-68.0); LYMPH # 0.6 (1.2-3.4); LYMPH % 16.3 % (22.0-35.0); MEAN CORPUSCULAR HGB CONC 31.8 g/dl (31.0-37.0); MEAN PLATELET VOLUME 8.2 fl (7.0-11.0); MONO # 0.3 (0.1-0.6); MONO % 7.7 % (1.0-6.0); RBC 3.45 10^6/uL (3.5-6.1); RED CELL DISTRIBUTION WIDTH 14.7 % (11.5-14.5); WHITE BLOOD COUNT 3.5 10^3/ul (4.5-11.0)
[2018-03-13 08:48] LABS: INR 1.1 (0.93-1.08); PARTIAL THROMBOPLASTIN TIME 29.1 Seconds (25.1-36.5); PROTHROMBIN TIME 12.6 SECONDS (9.4-12.5)
[2018-03-13 08:56] LABS: TROPONIN I 0.04 ng/mL
[2018-03-13 08:59] LABS: ALB/GLOB RATIO 1.6 (1.1-1.8); ALBUMIN 3.8 g/dL (3.0-4.8); ALT/SGPT 45 U/L (7-56); AST/SGOT 30 U/L (17-59); B-TYPE NATRIURETIC PEPTIDE 3300 pg/mL (0-450); BLOOD UREA NITROGEN 22 mg/dL (7-21); CALCIUM 8.9 mg/dL (8.4-10.5); GFR AFRICAN-AMERICAN > 60; GFR NON-AFRICAN AMERICAN > 60
[2018-03-13] MEDS: diltiaZEM 180 mg/24 Hours CD Cap PO SCH (12:00)
[2018-03-13] MEDS: Metoprolol Succinate 25 mg XL Tab PO SCH ×2 (12:00→18:37)
--- NOTE | 2018-03-13 12:12 | RAD ---
HISTORY: Chest pain COMPARISON: Comparison made with chest radiograph 02/22/[address] scan chest dated 02/23/2018 FINDINGS: LUNGS: Interval improvement previously noted pulmonary vascular congestion. Persistent right lower lobe atelectasis and or infiltrate and small right-sided effusion. Suspect minor subsegmental atelectasis and/or small infiltrate left base with small left-sided effusion PLEURA: As above. No pneumothorax apparent. CARDIOVASCULAR: Cardiomegaly. OSSEOUS STRUCTURES: No significant abnormalities. VISUALIZED UPPER ABDOMEN: Normal. OTHER FINDINGS: None. IMPRESSION: Interval improvement previously noted pulmonary vascular congestion. Persistent right lower lobe atelectasis and or infiltrate and small right-sided effusion. Suspect minor subsegmental atelectasis and/or small infiltrate left base with small left-sided effusion
[2018-03-13] MEDS ORDERED: Pneumococcal 23-Valent Vaccine IM ONE (13:18)
--- NOTE | 2018-03-13 16:58 | CARD ---
APPROVED REPORT EKG Measurement Heart [id number] <Conclusion> Atrial flutter with variable AV block with premature ventricular or aberrantly conducted complexes Rightward axis Minimal voltage criteria for LVH, may be normal variant Nonspecific ST and T wave abnormality Prolonged QT Abnormal ECG
[2018-03-14] MEDS: diltiaZEM 180 mg/24 Hours CD Cap PO SCH (09:10)
[2018-03-14] MEDS: Metoprolol Succinate 25 mg XL Tab PO SCH ×2 (09:10→17:38)
[2018-03-14] MEDS ORDERED: Enoxaparin 60 mg Syringe SC SCH (17:15)
[2018-03-14 20:22] LABS: TROPONIN I 0.04 ng/mL
--- NOTE | 2018-03-14 23:53 | HP ---
DATE OF EXAM: 03/14/2018 CHIEF COMPLAINT AND HISTORY OF PRESENT ILLNESS: This is an 82-year-old male who is coming to the hospital complaining of chest pain. The patient was having shortness of breath. There is no diaphoresis. No nausea. It lasted about 4 hours and then it resolved. He has been taking his medications. He is scheduled for AAA repair about 3 days. He has no headaches. No dysuria, frequency. No nocturia. ALLERGIES: NO KNOWN DRUG ALLERGIES. HOME MEDICATIONS: Aspirin, metoprolol, Dilantin. PAST MEDICAL HISTORY: Melanoma of the right ear, GERD, rectal cancer, seizure disorder, hypertension, thrombocytopenia. PAST SURGICAL HISTORY: Appendectomy.. SOCIAL HISTORY: He was a smoker, but quit. He denies alcohol use. FAMILY HISTORY: Noncontributory. PHYSICAL EXAMINATION: VITAL SIGNS: Temperature is 97.8, pulse 73, blood pressure 120/71, respirations 20. GENERAL: The patient lying in bed, uncomfortable, and in no acute distress. HEENT: Atraumatic and normocephalic. Anicteric sclerae. Moist mucosa. Blue [place] conjunctivae. No oral lesions. NECK: No JVD, anterior and posterior adenopathy, thyromegaly, or bruits. CARDIOVASCULAR: S1 and S2 regular. No murmur, rubs, or gallop. LUNGS: Clear to auscultation bilaterally. No wheezes, rales, or rhonchi. ABDOMEN: Bowel sounds are positive. Soft, nontender and nondistended. No hepatosplenomegaly. No rebound and no guarding EXTREMITIES: No cyanosis, clubbing, or edema. NEUROLOGIC: No facial asymmetry. Tongue is midline. No uvula deviation. Power is 5/5 upper extremity and lower extremity. Sensation intact in upper extremity and lower extremity. PSYCHIATRIC: He is awake, alert and oriented x3. No anxiety or depression. He has normal affect. GENITOURINARY: No CVA tenderness. VASCULAR: 2+ pulses in the carotid pulses and pedal pulses. SKIN: No erythema or nodules SPINE: Shows normal curvature. LABORATORY DATA: White count of 3.5, hemoglobin 10, platelet count is 98. INR is 1.1. Chemistry shows sodium is 144, potassium is 4.3. ProBNP is 3300, troponin 0.04. Dilantin is 12. Chest x-ray done shows interval improvement, previously noted vascular congestion. EKG shows heart rate of 70 with a QTC of 477. ASSESSMENT: 1. Chest pain. 2. Seizure disorder. 3. Atrial fibrillation, on Eliquis. PLAN: The patient is currently on Cardizem. He is going to continue with Lasix. He is on Lipitor for dyslipidemia. He is on Dilantin for seizures. He is going to be seen by Dr. Greenfield. He had one troponin, which was negative. I will order a second troponin. We will await further input from cardiology. Arnie Pool MD
[2018-03-15 06:42] LABS: BASO # 0.02 K/mm3 (0.0-2.0); BASO % 0.7 % (0.0-3.0); EOS # 0.1 (0.0-0.7); EOS % 4.1 % (1.5-5.0); GRAN # 1.68 (1.4-6.5); GRAN % 57.1 % (50.0-68.0); HEMOGLOBIN 9.7 g/dL (14.0-18.0); LYMPH # 0.7 (1.2-3.4); LYMPH % 25.2 % (22.0-35.0); MEAN CELL VOLUME 90.7 fl (80.0-105.0); MEAN CORPUSCULAR HEMOGLOBIN 29.2 pg (25.0-35.0); MEAN CORPUSCULAR HGB CONC 32.2 g/dl (31.0-37.0); MEAN PLATELET VOLUME 8.8 fl (7.0-11.0); MONO # 0.4 (0.1-0.6); MONO % 12.9 % (1.0-6.0); RBC 3.32 10^6/uL (3.5-6.1); RED CELL DISTRIBUTION WIDTH 14.7 % (11.5-14.5)
[2018-03-15 06:47] LABS: WHITE BLOOD COUNT 2.9 10^3/ul (4.5-11.0)
[2018-03-15 07:09] LABS: TROPONIN I 0.05 ng/mL
[2018-03-15 07:37] LABS: ALB/GLOB RATIO 1.5 (1.1-1.8); ALBUMIN 3.4 g/dL (3.0-4.8); ALT/SGPT 35 U/L (7-56); AST/SGOT 32 U/L (17-59); BLOOD UREA NITROGEN 26 mg/dL (7-21); CALCIUM 8.6 mg/dL (8.4-10.5); GFR AFRICAN-AMERICAN > 60; GFR NON-AFRICAN AMERICAN 58
--- NOTE | 2018-03-15 08:35 | HP ---
HISTORY OF PRESENT ILLNESS: Patient is an 82 years old who came to emergency room because of chest pressure and chest pain. Denies any associated nausea or vomiting. He states the pain was intermittent to none over the day, so he came to emergency room for further evaluation. He has no radiation. He has slight shortness of breath. No history of diaphoresis. No nausea or vomiting. No hemoptysis. No hematemesis. This pain has been going on off and on for the last few hours. By the time he came to emergency room, he was doing fine. PAST MEDICAL HISTORY: Significant for: 1. CA colon, had total colectomy. 2. Recent admission for pharyngeal pouch impaction and had endoscopically removed food material. 3. Infrarenal aortic aneurysm that has been scheduled for repair on next Thursday. 4. Recently had stress test done that was unremarkable. 5. AFib. 6. Seizure disorder. 7. Thrombocytopenia. 8. History of appendectomy. ALLERGIES: NOT ALLERGIC TO ANY MEDICATIONS. MEDICATIONS AT HOME: He is on Eliquis 5 mg twice a day, Dilantin 100 mg three times a day, diltiazem 360 daily, Lasix 40 mg daily, aspirin 81 daily, metoprolol 25 twice a day, and phenytoin 100 mg three times a day. SOCIAL HISTORY: He used to be a heavy smoker in the past, quit many years ago. Denies alcohol use. He lives by himself with his dogs. He has grown up children who live away from him. REVIEW OF SYSTEMS: Currently, he is asymptomatic. PHYSICAL EXAMINATION: GENERAL: He is awake, alert, oriented, communicative. VITAL SIGNS: He is afebrile, pulse is 77, respirations 18, and blood pressure 142/70. LUNGS: Bilateral diffusely decreased breath sounds. HEART: S1 and S2 audible. ABDOMEN: Soft, nontender. No rebound. No guarding. NEUROLOGIC: He is awake and alert, oriented, communicative. EXTREMITIES: Bilateral legs, +1 edema. LABORATORY EXAMINATION: WBC is 3.5, hemoglobin 10, hematocrit 31, platelets of 98. PT 12.6, INR 1.1. Chemistry: Sodium 144, potassium 4.3, chloride 106, CO2 of 27, BUN 22, creatinine 1, blood sugar 117, BNP 3300. Dilantin level is 12. ASSESSMENT: 1. Chest pain. Rule out underlying ischemia. 2. Atrial fibrillation. 3. Hypertension. 4. Hyperlipidemia. 5. Seizure disorder. 6. Infrarenal tumor. 7. Status post colectomy that was done because of cancer of colon. PLAN: So, plan is, we will resume patient's diltiazem 360 daily, phenytoin 100 three times a day, aspirin 81 daily, and we will start him on Lipitor. Cardiology consult by Dr. Greenfield has been requested and we will reevaluate the patient in a.m. He will be discharged and brought back on Thursday, same day of procedure. His aspirin and Eliquis is on hold for now to prep for procedure for aortic aneurysm repair. Tri Fleming MD
[2018-03-15] MEDS: Metoprolol Succinate 25 mg XL Tab PO SCH ×2 (09:30→17:30)
[2018-03-15] MEDS: diltiaZEM 180 mg/24 Hours CD Cap PO SCH (09:30)
--- NOTE | 2018-03-15 14:12 | CP.PCM.CON ---
History of Present Illness - History of Present Illness History of Present Illness: Vascular Surgery Consult Note for Dr. Grullon Reason for consult: AAA measuring 5.6 cm x 5.2 cm x 10 cm 82 M with PMH that includes Rectal cancer s/p resection, abdominal aortic aneurysm, Atrial Fibrillation on Eliquis who was admitted for chest pain on 03/13. Vascular surgery was consulted for AAA. Patient is schedule for EVAR on Friday 03/16. He has had this scheduled for several weeks. Patient had inpatient/ outpatient cardiac work up in preparation for procedure. Patient is all set for EVAR. Patient denies any pain. Patient has no complaints at this time. PMH: Rectal cancer s/p resection, abdominal aortic aneurysm, hypertension, seizures, GERD, Zenker's Diverticulum, Atrial Fibrillation on eliquis Meds: As per EMR Allergy: NKDA PSH: Resection of rectal cancer with colostomy in 2001, appendectomy, balloon angioplasty without stents in 1990 Social: Smoked for 40 years about 4 packs per day and quit in 1990, Denies EtOH or illicit drug use Review of Systems - Review of Systems All systems: reviewed and no additional remarkable complaints except (as per HPI ) Past Patient History - Infectious Disease Hx of Infectious Diseases: None - Tetanus Immunizations Tetanus Immunization: Up to Date - Past Social History Smoking Status: Former Smoker - CARDIAC Hx Cardiac Disorders: Yes Hx Cardia Arrhythmia: Yes (afib, arythmia) Hx Circulatory Problems: Yes Hx Congestive Heart Failure: Yes Hx Hypercholesterolemia: Yes Hx Hypertension: Yes Hx Pacemaker: No Hx Peripheral Edema: Yes (ble +1, pitting and discolorations) Other/Comment: angioplasty, aaa pt is scheduled for sx 03/16/18,mi - PULMONARY Hx Respiratory Disorders: Yes (USED TO SMOKE CIGARETTES.QUIT 1990) - NEUROLOGICAL Hx Seizures: Yes Hx Transient Ischemic Attacks (TIA): Yes (no deficits) - HEENT Hx HEENT Problems: Yes (stebbins r ear, does not use hearing aid) Other/Comment: uses eyeglasses,uses dentures - RENAL Hx Chronic Kidney Disease: No - ENDOCRINE/METABOLIC Hx Endocrine Disorders: No - HEMATOLOGICAL/ONCOLOGICAL Hx Blood Disorders: Yes Hx Cancer: Yes (RECTAL CA) Hx Chemotherapy: No Other/Comment: 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, pt had resection for rectal ca no chemo no radiation has colostomy was dx in 2001 - INTEGUMENTARY Hx Dermatological Problems: Yes Hx Melanoma: Yes (RIGHT PINNA,HEAD) Other/Comment: 02-22-18 BILAERAL LE EDEMA PITTING +2.MORE TO RIGHT THAN LEFT.LEFT LEG HAS DRY FLAKY SKIN.RIGHT ALL TOES HAS ROUND BRUISING TO EACH TOE.BLUISK PURPLISH HUE. pt has melanoma multiple brown nodules to left buddhism and left forehead, has had several areas removed from b/l ears and scalp by dr ge, pt wants to follow up on left buddhism and forehead but wants to have aaa sx first, - MUSCULOSKELETAL/RHEUMATOLOGICAL Hx Falls: Yes (past) - GASTROINTESTINAL Hx Gastrointestinal Disorders: Yes Hx Colostomy: Yes (2001/empties 2x's a day brown stool) Hx Gastroesophageal Reflux: Yes HX Swallowing Problems: Yes Other/Comment: rectal cancer, dysphagia due to foreign body chicken bone removed by dr boo and dr wilson as per pt - GENITOURINARY/GYNECOLOGICAL Hx Genitourinary Disorders: Yes Other/Comment: 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 c/o urinary frequency, retention, difficulty initiating stream - PSYCHIATRIC Hx Substance Use: No - SURGICAL HISTORY Hx Surgeries: Yes Hx Appendectomy: Yes Other/Comment: colostomy due to rectal ca, angioplasty - ANESTHESIA Hx Anesthesia Reactions: No Hx Malignant Hyperthermia: No Meds Allergies/Adverse Reactions: Allergies Allergy/AdvReac Type Severity Reaction Status Date / Time No Known Allergies Allergy Verified 03/13/18 07:57 - Medications Medications: Current Medications Atorvastatin Calcium (Lipitor) 10 mg PO DIN [facility] Last Admin: 03/14/18 17:38 Dose: 10 mg Diltiazem HCl (Cardizem Cd) 360 mg PO DAILY [facility] Last Admin: 03/15/18 09:30 Dose: 360 mg Furosemide (Lasix) 40 mg IVP DAILY [facility] Last Admin: 03/15/18 09:31 Dose: 40 mg Metoprolol Succinate (Toprol Xl) 25 mg PO BID [facility] Last Admin: 03/15/18 09:30 Dose: 25 mg Phenytoin Sodium (Dilantin) 100 mg PO TID [facility] Last Admin: 03/15/18 13:54 Dose: 100 mg Physical Exam - Constitutional Appears: No Acute Distress - Head Exam Head Exam: ATRAUMATIC, NORMOCEPHALIC - Eye Exam Eye Exam: EOMI, Normal appearance - ENT Exam ENT Exam: Mucous Membranes Moist - Respiratory Exam Respiratory Exam: NORMAL BREATHING PATTERN - Cardiovascular Exam Cardiovascular Exam: REGULAR RHYTHM - GI/Abdominal Exam GI & Abdominal Exam: Normal Bowel Sounds, Soft. absent: Distended, Guarding, Rebound, Rigid, Tenderness Additional comments: pulsatile mass felt above umbilicus on deep palpation - Extremities Exam Extremities exam: Positive for: normal capillary refill, pedal pulses present. Negative for: calf tenderness - Back Exam Back exam: absent: CVA tenderness (L), CVA tenderness (R) - Neurological Exam Neurological exam: Alert, CN II-XII Intact, Oriented x3 - Psychiatric Exam Psychiatric exam: Normal Affect, Normal Mood - Skin Skin Exam: Dry, Intact, Normal Color, Warm Results - Vital Signs Recent Vital Signs: Last Vital Signs Temp 98.0 F 03/15/18 12:00 Pulse 85 03/15/18 12:00 Resp 19 03/15/18 12:00 BP 142/79 03/15/18 12:00 Pulse Ox 92 L 03/15/18 06:00 - Labs Result Diagrams: 03/15/18 05:20 03/15/18 05:35 Labs: Laboratory Results - last 24 hr 03/14/18 03/15/18 03/15/18 19:57 05:20 05:20 WBC 2.9 L* RBC 3.32 L Hgb 9.7 L Hct 30.1 L MCV 90.7 MCH 29.2 MCHC 32.2 RDW 14.7 H Plt Count 85 L MPV 8.8 Gran % 57.1 Lymph % (Auto) 25.2 [place] % (Auto) 12.9 H Eos % (Auto) 4.1 Baso % (Auto) 0.7 Gran # 1.68 Lymph # (Auto) 0.7 L [place] # (Auto) 0.4 Eos # (Auto) 0.1 Baso # (Auto) 0.02 Sodium Potassium Chloride Carbon Dioxide Anion Gap BUN Creatinine Est GFR ( Amer) Est GFR (Non-Af Amer) Random Glucose Calcium Phosphorus Magnesium Total Bilirubin AST ALT Alkaline Phosphatase Lactate Dehydrogenase 448 Total Creatine Kinase 29 L Troponin I 0.04 Total Protein Albumin Globulin Albumin/Globulin Ratio TSH 3rd Generation 1.36 03/15/18 05:35 WBC RBC Hgb Hct MCV MCH MCHC RDW Plt Count MPV Gran % Lymph % (Auto) [place] % (Auto) Eos % (Auto) Baso % (Auto) Gran # Lymph # (Auto) [place] # (Auto) Eos # (Auto) Baso # (Auto) Sodium 143 Potassium 4.0 Chloride 104 Carbon Dioxide 30 Anion Gap 13 BUN 26 H Creatinine 1.2 Est GFR ( Amer) > 60 Est GFR (Non-Af Amer) 58 Random Glucose 104 Calcium 8.6 Phosphorus 4.2 Magnesium 2.0 Total Bilirubin 0.3 AST 32 ALT 35 Alkaline Phosphatase 85 Lactate Dehydrogenase 458 Total Creatine Kinase 25 L Troponin I 0.05 D Total Protein 5.7 L Albumin 3.4 Globulin 2.3 Albumin/Globulin Ratio 1.5 TSH 3rd Generation Assessment & Plan - Assessment and Plan (Free Text) Assessment: 82 M who presents with abdomnial aortic aneursym measuring measuring 5.6 cm x 5.2 cm x [address] scan Plan: -Plan for EVAR tomorrow Friday 03/16 -NPO Past MN -Medical optimization and pre-operative work-up -Further recommendations as per Dr. Mitchel Ortega PGY1 - Date & Time Date: 03/15/18 Time: 14:00
--- NOTE | 2018-03-15 16:03 | PN ---
DATE: 03/15/2018 SUBJECTIVE: The patient is an 82-year-old seen and examined. Denied any chest pain. No shortness of breath. Eating and tolerating, ambulating. Leg edema seems to be improving. PHYSICAL EXAMINATION: VITAL SIGNS: Afebrile, pulse 99, respirations 18, blood pressure 122/65. LUNGS: Bilateral good airflow. No rhonchi or crackle. HEART: S1 and S2, audible. ABDOMEN: Soft and nontender. No rebound. No guarding. NEUROLOGIC: The patient is awake, alert, oriented, communicative. LABORATORY DATA: WBC 2.9, hemoglobin 9.7, hematocrit 30.1, platelets of 85. Chemistry: Sodium 143, potassium 4, chloride 104, CO2 30, BUN 26, creatinine 1.2, blood sugar of 104. Troponin is negative. Dilantin level is 12. ASSESSMENT AND PLAN: 1. Chest pain, noncardiac. 2. History of seizure disorder. 3. Thrombocytopenia. 4. Infrarenal aneurysm. 5. Chronic atrial fibrillation. So, plan is the patient is medically cleared. He got Lovenox up until this morning. He is scheduled to have the AAA repair done in Tri Fleming MD
--- NOTE | 2018-03-16 01:43 | CON ---
DATE: 03/15/2018 REASON FOR CONSULTATION: Cardiac evaluation, preop evaluation for AAA repair, admitted with chest pain, is scheduled for Thursday. HISTORY OF PRESENT ILLNESS: An 82-year-old male with past medical history significant for atrial fibrillation, was not on anticoagulation prior to previous admission. Last time, started on anticoagulation, Eliquis. Also found to have AAA, in 2012 was 3.6, last time it was 5.6 and is scheduled for AAA surgery tomorrow. Admitted yesterday with chest pain which is completely resolved. Denied any chest pain, shortness of breath, or any palpitation. PAST MEDICAL HISTORY: Significant for atrial fibrillation, (AAA) abdominal aortic aneurysm of 5.6 cm, hypertension, COPD. PERSONAL HISTORY: Patient used to smoke 2 to 4 pack until 1990. Denies any drinking. Denies any history of alcohol abuse or tobacco abuse recently. PAST SURGICAL HISTORY: History of angioplasty in 1990, plain balloon angioplasty at [facility]. Since then, patient is fairly stable. PREVIOUS CARDIAC WORKUP: As follows: Patient had a stress test and echo. His stress test dated 02/26/2018 as a preop evaluation for AAA repair, that showed essentially normal myocardial perfusion study, fixed defect, most likely secondary to diaphragmatic attenuation. Ejection fraction 55% IV Lexiscan. Patient had also echocardiography on 02/23/2018 that showed concentric LVH, proximal septal thickness noted, I just evaluated the resting gradient 4 to 6 mm, not significant. LV function, ejection fraction 65%, aortic sclerosis with mild , trace aortic regurgitation, moderate mitral regurgitation, moderate tricuspid regurgitation, RV systolic pressure of 63, mild to moderate pulmonary insufficiency. CURRENT MEDICATIONS: Patient is taking at home Cardizem 360 mg daily, phenytoin 100 mg daily, metoprolol 25 daily, aspirin 81 mg, Eliquis 5 mg. Last date used, 3 days ago. REVIEW OF SYSTEMS: As per HPI. PHYSICAL EXAMINATION: VITAL SIGNS: Height of the patient 5 foot 7 inches, weight of the patient 141 pounds, body mass index 22.2 kg/m2. Rest of the vitals as follows. Temperature afebrile, heart rate 85, blood pressure 142/79. HEENT: PERRLA. Extraocular muscles intact. NECK: Supple. No carotid bruit or thyromegaly. CHEST: Clear to auscultation. HEART: S1 and S2 regular. ABDOMEN: Soft. EXTREMITIES: Clubbing and cyanosis negative. LABORATORY DATA: EKG showed atrial fibrillation at the rate of 80, slow AFib. Blood workup; WBC 2.9, hemoglobin 9.7, hematocrit 30.1, platelet count 85. Chemistry shows sodium 143, potassium 4, chloride 104, carbon dioxide 30, anion gap of 13, BUN 26, creatinine 1.2. Troponin 0.05. First troponin being 0.04. 0.04, 0.05, indeterminate range. IMPRESSION: Chest pain, atypical. No evidence of acute myocardial infarction. Troponin indeterminate range. Chronic atrial fibrillation, off anticoagulation, abdominal aortic aneurysm. Preoperative stress test negative for ischemia, ejection fraction preserved, off anticoagulation 3 days. History of pneumonia in the past. Most recent abdominal aortic aneurysm is 5.5 cm in transverse diameter, 5.2 in side to side, 10 cm in length, and 5.2 in AP diameter. No ischemia in the stress test. Ejection fraction 65%. RECOMMENDATIONS: Continue perioperative beta-tammy. Continue Cardizem. Continue antiseizure medication, off Eliquis 3 days more. We gave one dose Lovenox yesterday. So far, has no evidence of AR. We will continue Lasix, continue , continue metoprolol. We will discontinue Lovenox. Last dose of Lovenox given yesterday, so should be almost 48 hours before surgery. We will follow with you. Patient is cleared to go for surgery with high risk because of underlying comorbidity and high risk vascular procedure, but no evidence of acute AR, no evidence of ischemia, no evidence of arrhythmia, no absolute contraindication. We will repeat the blood workup in the morning. Patient is cleared from the cardiology point of view to go to OR with high risk as mentioned above. Thank you Dr. Fleming, for providing us the opportunity in taking care of Roshan Hale. We will follow with you. Gladis Greenfield MD
[2018-03-16] MEDS: Metoprolol Succinate 25 mg XL Tab PO SCH ×3 (07:01→17:28)
[2018-03-16] MEDS: diltiaZEM 180 mg/24 Hours CD Cap PO SCH ×2 (07:01→16:07)
[2018-03-16] MEDS ORDERED: Lidocaine 2% Inj (20ml) ONE (07:09)
[2018-03-16] MEDS ORDERED: Iodixanol 320 MG/ML 200 ML BOTTLE IV ONE (07:10)
[2018-03-16] MEDS ORDERED: Iodixanol 320 MG/ML 100 ML BOTTLE IV ONE (07:10)
[2018-03-16] MEDS ORDERED: Nitroglycerin 50mg in D5W 50 MG/250 ML BOTTLE IV ONE (07:10)
--- NOTE | 2018-03-16 07:13 | CP.PCM.PN ---
Subjective - Date & Time of Evaluation Date of Evaluation: 03/16/18 Time of Evaluation: 06:10 - Subjective Subjective: Awake, standing bedside, no distress, going for surgery today Reason for consultation and follow up: Cardiac evaluation and pre op clearance for Abdominal aortic aneurysm repair, history of hypertension, seizures, GERD, Zenker's Diverticulum, Atrial Fibrillation on eliquis Seen and examined by me and Dr. Greenfield Objective - Vital Signs/Intake and Output Vital Signs (last 24 hours): Temp Pulse Resp BP Pulse Ox 98.4 F 72 18 140/98 H 93 L 03/16/18 06:35 03/16/18 07:01 03/16/18 06:35 03/16/18 07:01 03/15/18 22:48 Intake and Output: 03/16/18 03/16/18 06:59 18:59 Intake Total 180 Output Total 100 Balance 80 - Medications Medications: Current Medications Atorvastatin Calcium (Lipitor) 10 mg PO DIN [facility] Last Admin: 03/15/18 17:31 Dose: 10 mg Diltiazem HCl (Cardizem Cd) 360 mg PO DAILY [facility] Last Admin: 03/16/18 07:01 Dose: 360 mg Furosemide (Lasix) 40 mg IVP DAILY [facility] Last Admin: 03/15/18 09:31 Dose: 40 mg Metoprolol Succinate (Toprol Xl) 25 mg PO BID [facility] Last Admin: 03/16/18 07:01 Dose: 25 mg Phenytoin Sodium (Dilantin) 100 mg PO TID [facility] Last Admin: 03/16/18 07:02 Dose: 100 mg - Labs Labs: 03/15/18 05:20 03/15/18 05:35 PT 12.6 SECONDS (9.4-12.5) H 03/13/18 08:12 INR 1.10 (0.93-1.08) H 03/13/18 08:12 APTT 29.1 Seconds (25.1-36.5) 03/13/18 08:12 - Constitutional Appears: No Acute Distress - Head Exam Head Exam: NORMOCEPHALIC - Eye Exam Eye Exam: Normal appearance - ENT Exam ENT Exam: Mucous Membranes Moist - Respiratory Exam Respiratory Exam: Clear to Ausculation Bilateral, NORMAL BREATHING PATTERN - Cardiovascular Exam Cardiovascular Exam: +S1, +S2 - GI/Abdominal Exam GI & Abdominal Exam: Soft, Normal Bowel Sounds - Extremities Exam Extremities Exam: Normal Capillary Refill - Neurological Exam Neurological Exam: Alert, Awake, Oriented x3 - Psychiatric Exam Psychiatric exam: Normal Affect, Normal Mood - Skin Skin Exam: Intact, Normal Color, Warm Assessment and Plan - Assessment and Plan (Free Text) Assessment: An 82 year old male scheduled for EVAR Friday 03/16.History of rectal cancer s/p resection, abdominal aortic aneurysm, hypertension, seizures, GERD, Zenker's Diverticulum, Atrial Fibrillation on Eliquis, balloon angioplasty without stents in 1990,Smoked for 40 years about 4 packs per day and quit in 1990. Discontinued Eliquis prior to surgery. Plan: Cleared for surgery today, high risk due to co-morbidities Will follow up patient postoperatively Platelets transfusion prior to surgery (platelet count 85) Eliquis stopped Continue current management, Will follow up patient postoperatively Plan and treatment discussed with Dr. Greenfield
[2018-03-16 07:30] LABS: BASO # 0.01 K/mm3 (0.0-2.0); BASO % 0.3 % (0.0-3.0); EOS # 0.1 (0.0-0.7); EOS % 2.3 % (1.5-5.0); GRAN # 2.36 (1.4-6.5); GRAN % 68.2 % (50.0-68.0); HEMOGLOBIN 10.6 g/dL (14.0-18.0); LYMPH # 0.6 (1.2-3.4); LYMPH % 17.1 % (22.0-35.0); MEAN CELL VOLUME 90.2 fl (80.0-105.0); MEAN CORPUSCULAR HEMOGLOBIN 29.6 pg (25.0-35.0); MEAN CORPUSCULAR HGB CONC 32.8 g/dl (31.0-37.0); MEAN PLATELET VOLUME 8.3 fl (7.0-11.0); MONO # 0.4 (0.1-0.6); MONO % 12.1 % (1.0-6.0); RBC 3.58 10^6/uL (3.5-6.1); RED CELL DISTRIBUTION WIDTH 14.6 % (11.5-14.5); WHITE BLOOD COUNT 3.5 10^3/ul (4.5-11.0)
[2018-03-16 07:43] LABS: INR 1.03 (0.93-1.08); PROTHROMBIN TIME 11.9 SECONDS (9.4-12.5)
[2018-03-16 07:49] LABS: ALB/GLOB RATIO 1.7 (1.1-1.8); ALT/SGPT 37 U/L (7-56); AST/SGOT 30 U/L (17-59); BLOOD UREA NITROGEN 24 mg/dL (7-21); CALCIUM 8.9 mg/dL (8.4-10.5); GFR AFRICAN-AMERICAN > 60; GFR NON-AFRICAN AMERICAN > 60; HDL CHOLESTEROL 49 mg/dL (29-60)
[2018-03-16 08:00] LABS: LDL CHOLESTEROL 72 mg/dL (0-129)
[2018-03-16] MEDS ORDERED: ePHEDrine 50 mg/ml Inj ONE (08:09)
[2018-03-16] MEDS ORDERED: Phenylephrine 10 mg/ml Inj ONE (08:09)
[2018-03-16] MEDS ORDERED: Propofol 10 mg/ml Inj (20 ML) ONE (08:11)
[2018-03-16] MEDS ORDERED: Etomidate 20 mg/10ml Inj IV ONE (08:12)
[2018-03-16] MEDS ORDERED: Midazolam 2 MG/2 ML VIAL ONE (08:12)
[2018-03-16] MEDS ORDERED: Rocuronium 10 mg/ml (5 ml) ONE (08:12)
[2018-03-16] MEDS ORDERED: Vancomycin 500 mg (Oral/Rectal USE) ONE (08:51)
[2018-03-16] MEDS ORDERED: Sodium Chloride 0.9% 1,000 ML IV SCH (11:00)
--- NOTE | 2018-03-16 11:20 | CP.PCM.CON ---
<Galdino Carmona - Last Filed: 03/16/18 11:26> History of Present Illness - History of Present Illness History of Present Illness: ICU Consult Note: Dr. Andujar Reason For Consult: S/p EVAR HPI: 82 M with PMH pertinent for AAA was admitted for chest pain on 03/13. Patient described the pain as sharp, right sided, but without radiation or associated symptoms of shortness of breath, diarrhea, diaphoresis. In fact, by the time his PMD saw him in the ER, the pain had resolved, though it had been intermittent throughout the day before that. Vascular surgery, Dr. Grullon was consulted for repair of AAA as well as Cardiology, Dr. Greenfield, who risk stratified the patient for vascular surgery as high risk. Patient referred to ICU for follow up and observation overnight. Upon my interview s/p AAA repair, patient is resting comfortably in bed and denies any chest pain or shortness of breath at this time. Patient's only complaint is that he feels cold after the surgery but denies any loss of sensation, any dizziness, any loss of muscle function. Review of Systems: 12 Point ROS obtained and negative except as per HPI PMH: Rectal cancer s/p resection, AAA, HTN, Seizures, GERD, Zenker's Diverticulum, AFib on eliquis Meds: As per EMR Allergy: NKDA PSH: Resection of rectal cancer with colostomy in 2001, appendectomy, balloon angioplasty without stents in 1990 Social: Smoked for 40 years about 4 packs per day and quit in 1990, Denies EtOH or illicit drug use Family Hx: HTN, Cancer Past Patient History - Infectious Disease Hx of Infectious Diseases: None - Tetanus Immunizations Tetanus Immunization: Up to Date - Past Social History Smoking Status: Former Smoker - CARDIAC Hx Cardiac Disorders: Yes Hx Cardia Arrhythmia: Yes (afib, arythmia) Hx Circulatory Problems: Yes Hx Congestive Heart Failure: Yes Hx Hypercholesterolemia: Yes Hx Hypertension: Yes Hx Pacemaker: No Hx Peripheral Edema: Yes (ble +1, pitting and discolorations) Other/Comment: angioplasty, aaa pt is scheduled for sx 03/16/18,mi - PULMONARY Hx Respiratory Disorders: Yes (USED TO SMOKE CIGARETTES.QUIT 1990) - NEUROLOGICAL Hx Seizures: Yes Hx Transient Ischemic Attacks (TIA): Yes (no deficits) - HEENT Hx HEENT Problems: Yes ([place] ear, does not use hearing aid) Other/Comment: uses eyeglasses,uses dentures - RENAL Hx Chronic Kidney Disease: No - ENDOCRINE/METABOLIC Hx Endocrine Disorders: No - HEMATOLOGICAL/ONCOLOGICAL Hx Blood Disorders: Yes Hx Cancer: Yes (RECTAL CA) Hx Chemotherapy: No Other/Comment: 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, pt had resection for rectal ca no chemo no radiation has colostomy was dx in 2001 - INTEGUMENTARY Hx Dermatological Problems: Yes Hx Melanoma: Yes (RIGHT PINNA,HEAD) Other/Comment: 02-22-18 BILAERAL LE EDEMA PITTING +2.MORE TO RIGHT THAN LEFT.LEFT LEG HAS DRY FLAKY SKIN.RIGHT ALL TOES HAS ROUND BRUISING TO EACH TOE.BLUISK PURPLISH HUE. pt has melanoma multiple brown nodules to left zoroastrian and left forehead, has had several areas removed from b/l ears and scalp by dr ge, pt wants to follow up on left zoroastrian and forehead but wants to have aaa sx first, - MUSCULOSKELETAL/RHEUMATOLOGICAL Hx Falls: Yes (past) - GASTROINTESTINAL Hx Gastrointestinal Disorders: Yes Hx Colostomy: Yes (2001/empties 2x's a day brown stool) Hx Gastroesophageal Reflux: Yes HX Swallowing Problems: Yes Other/Comment: rectal cancer, dysphagia due to foreign body chicken bone removed by dr boo and dr wilson as per pt - GENITOURINARY/GYNECOLOGICAL Hx Genitourinary Disorders: Yes Other/Comment: 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 c/o urinary frequency, retention, difficulty initiating stream - PSYCHIATRIC Hx Substance Use: No - SURGICAL HISTORY Hx Surgeries: Yes Hx Appendectomy: Yes Other/Comment: colostomy due to rectal ca, angioplasty - ANESTHESIA Hx Anesthesia Reactions: No Hx Malignant Hyperthermia: No Meds Allergies/Adverse Reactions: Allergies Allergy/AdvReac Type Severity Reaction Status Date / Time No Known Allergies Allergy Verified 03/13/18 07:57 - Medications Medications: Current Medications Atorvastatin Calcium (Lipitor) 10 mg PO DIN [facility] Last Admin: 03/15/18 17:31 Dose: 10 mg Diltiazem HCl (Cardizem Cd) 360 mg PO DAILY [facility] Last Admin: 03/16/18 07:01 Dose: 360 mg Furosemide (Lasix) 40 mg IVP DAILY [facility] Last Admin: 03/15/18 09:31 Dose: 40 mg Sodium Chloride (Sodium Chloride 0.45%) 1,000 mls @ 50 mls/hr IV .Q20H [facility] Stop: 03/17/18 12:00 Sodium Chloride (Sodium Chloride 0.9%) 1,000 mls @ 75 mls/hr IV .[id number] [facility] Stop: 03/16/18 13:01 Metoprolol Succinate (Toprol Xl) 25 mg PO BID [facility] Last Admin: 03/16/18 07:01 Dose: 25 mg Phenytoin Sodium (Dilantin) 100 mg PO TID [facility] Last Admin: 03/16/18 07:02 Dose: 100 mg Physical Exam - Constitutional Appears: Well - Head Exam Head Exam: ATRAUMATIC, NORMAL INSPECTION, NORMOCEPHALIC - Eye Exam Eye Exam: EOMI, Normal appearance, PERRL Pupil Exam: NORMAL ACCOMODATION, PERRL - ENT Exam ENT Exam: Mucous Membranes Moist, Normal Exam - Neck Exam Neck exam: Positive for: Normal Inspection - Respiratory Exam Respiratory Exam: Clear to Auscultation Bilateral, NORMAL BREATHING PATTERN - Cardiovascular Exam Cardiovascular Exam: REGULAR RHYTHM - GI/Abdominal Exam GI & Abdominal Exam: Normal Bowel Sounds, Soft. absent: Tenderness - Extremities Exam Extremities exam: Positive for: normal inspection Additional comments: Patient has bilateral femoral sites of injection, both of which are non- erythematous without swelling and were recovered with bandages - Back Exam Back exam: NORMAL INSPECTION - Neurological Exam Neurological exam: Alert, CN II-XII Intact, Normal Gait, Oriented x3, Reflexes Normal - Psychiatric Exam Psychiatric exam: Normal Affect, Normal Mood - Skin Skin Exam: Dry, Intact, Normal Color, Warm Results - Vital Signs Recent Vital Signs: Last Vital Signs Temp 97.7 F 03/16/18 10:47 Pulse 71 03/16/18 10:47 Resp 15 03/16/18 10:47 BP 116/71 03/16/18 10:47 Pulse Ox 96 03/16/18 06:00 - Labs Result Diagrams: 03/16/18 07:00 03/16/18 07:00 Labs: Laboratory Results - last 24 hr 03/15/18 03/16/18 03/16/18 16:21 07:00 07:00 WBC 3.5 L D RBC 3.58 Hgb 10.6 L Hct 32.3 L MCV 90.2 MCH 29.6 MCHC 32.8 RDW 14.6 H Plt Count 87 L MPV 8.3 Gran % 68.2 H Lymph % (Auto) 17.1 L [place] % (Auto) 12.1 H Eos % (Auto) 2.3 Baso % (Auto) 0.3 Gran # 2.36 Lymph # (Auto) 0.6 L [place] # (Auto) 0.4 Eos # (Auto) 0.1 Baso # (Auto) 0.01 PT INR Sodium 144 Potassium 4.0 Chloride 104 Carbon Dioxide 30 Anion Gap 15 BUN 24 H Creatinine 1.1 Est GFR ( Amer) > 60 Est GFR (Non-Af Amer) > 60 Random Glucose 107 Calcium 8.9 Phosphorus 3.9 Magnesium 2.1 Total Bilirubin 0.4 AST 30 ALT 37 Alkaline Phosphatase 89 Total Protein 6.3 Albumin 4.0 Globulin 2.3 Albumin/Globulin Ratio 1.7 Triglycerides 81 Cholesterol 146 LDL Cholesterol Direct 72 HDL Cholesterol 49 TSH 3rd Generation Blood Type O POSITIVE Antibody Screen Negative Crossmatch See Detail BBK History Checked Patient has bt 03/16/18 03/16/18 07:00 07:00 WBC RBC Hgb Hct MCV MCH MCHC RDW Plt Count MPV Gran % Lymph % (Auto) [place] % (Auto) Eos % (Auto) Baso % (Auto) Gran # Lymph # (Auto) [place] # (Auto) Eos # (Auto) Baso # (Auto) PT 11.9 INR 1.03 Sodium Potassium Chloride Carbon Dioxide Anion Gap BUN Creatinine Est GFR ( Amer) Est GFR (Non-Af Amer) Random Glucose Calcium Phosphorus Magnesium Total Bilirubin AST ALT Alkaline Phosphatase Total Protein Albumin Globulin Albumin/Globulin Ratio Triglycerides Cholesterol LDL Cholesterol Direct HDL Cholesterol TSH 3rd Generation 1.25 Blood Type Antibody Screen Crossmatch BBK History Checked Assessment & Plan - Assessment and Plan (Free Text) Assessment: 82 year old male with pertinent history of AAA presented with chest pain and is now s/p EVAR. Patient is without chest pain and shortness of breath, and troponin drawn earlier is at his baseline. Patient's sites of injection do not indicate infection, vitals are stable, and only SIRS criteria is low WBC which was present before procedure. RE: patient's A-Fib, his latest EKG showed A- Flutter but rate is controlled. Plan: Neuro: - Hx Seizures: Continue home Dilantin - Maintain normothermia Pulmonary: - Hx COPD - Xopenex with Ipratropium PRN - Maintain O2 sat > 90% Cardio: - Hx A-Fib - Continue home Cardizem and Toprol XL. Hold ASA and Eliquis s/p procedure - Hx HLD - Lipitor - Hx HTN - Continue Home Toprol XL and Lasix - Hx AAA s/p EVAR - Continue fluids; monitor injection sites; monitor troponin and EKG; Vitals q2H GI: - CMP ordered for AM - GI PPX - Protonix in AM Renal: - Fluids - Monitor electrolytes and replete as needed - Maintain Euvolemia Heme: - Administer total 2 U PRBC, 2U LR Plts, 1U Pher Plts - CBC in AM Endo: - Maintain Euglycemia Prophylaxis: Protonix in AM Drips: Fluids Diet: Heart Healthy Liquids Lunch; HHD Dinner <Ari Andujar - Last Filed: 03/16/18 13:46> Meds - Medications Medications: Current Medications Atorvastatin Calcium (Lipitor) 10 mg PO DIN [facility] Last Admin: 03/15/18 17:31 Dose: 10 mg Diltiazem HCl (Cardizem Cd) 360 mg PO DAILY [facility] Last Admin: 03/16/18 07:01 Dose: 360 mg Furosemide (Lasix) 40 mg IVP DAILY [facility] Last Admin: 03/15/18 09:31 Dose: 40 mg Sodium Chloride (Sodium Chloride 0.45%) 1,000 mls @ 50 mls/hr IV .Q20H [facility] Stop: 03/17/18 12:00 Metoprolol Succinate (Toprol Xl) 25 mg PO BID [facility] Last Admin: 03/16/18 07:01 Dose: 25 mg Pantoprazole Sodium (Protonix Ec Tab) 40 mg PO 0600 [facility] Phenytoin Sodium (Dilantin) 100 mg PO TID [facility] Last Admin: 03/16/18 07:02 Dose: 100 mg Results - Vital Signs Recent Vital Signs: Last Vital Signs Temp 97.7 F 03/16/18 11:17 Pulse 72 03/16/18 11:17 Resp 15 03/16/18 11:17 BP 102/56 L 03/16/18 11:17 Pulse Ox 96 03/16/18 06:00 - Labs Result Diagrams: 03/16/18 07:00 03/16/18 07:00 Labs: Laboratory Results - last 24 hr 03/15/18 03/16/18 03/16/18 16:21 07:00 07:00 WBC 3.5 L D RBC 3.58 Hgb 10.6 L Hct 32.3 L MCV 90.2 MCH 29.6 MCHC 32.8 RDW 14.6 H Plt Count 87 L MPV 8.3 Gran % 68.2 H Lymph % (Auto) 17.1 L [place] % (Auto) 12.1 H Eos % (Auto) 2.3 Baso % (Auto) 0.3 Gran # 2.36 Lymph # (Auto) 0.6 L [place] # (Auto) 0.4 Eos # (Auto) 0.1 Baso # (Auto) 0.01 PT INR Sodium 144 Potassium 4.0 Chloride 104 Carbon Dioxide 30 Anion Gap 15 BUN 24 H Creatinine 1.1 Est GFR ( Amer) > 60 Est GFR (Non-Af Amer) > 60 Random Glucose 107 Hemoglobin A1c Calcium 8.9 Phosphorus 3.9 Magnesium 2.1 Total Bilirubin 0.4 AST 30 ALT 37 Alkaline Phosphatase 89 Troponin I Total Protein 6.3 Albumin 4.0 Globulin 2.3 Albumin/Globulin Ratio 1.7 Triglycerides 81 Cholesterol 146 LDL Cholesterol Direct 72 HDL Cholesterol 49 TSH 3rd Generation Blood Type O POSITIVE Antibody Screen Negative Crossmatch See Detail BBK History Checked Patient has bt 03/16/18 03/16/18 03/16/18 07:00 07:00 07:00 WBC RBC Hgb Hct MCV MCH MCHC RDW Plt Count MPV Gran % Lymph % (Auto) [place] % (Auto) Eos % (Auto) Baso % (Auto) Gran # Lymph # (Auto) [place] # (Auto) Eos # (Auto) Baso # (Auto) PT 11.9 INR 1.03 Sodium Potassium Chloride Carbon Dioxide Anion Gap BUN Creatinine Est GFR ( Amer) Est GFR (Non-Af Amer) Random Glucose Hemoglobin A1c 5.1 Calcium Phosphorus Magnesium Total Bilirubin AST ALT Alkaline Phosphatase Troponin I Total Protein Albumin Globulin Albumin/Globulin Ratio Triglycerides Cholesterol LDL Cholesterol Direct HDL Cholesterol TSH 3rd Generation 1.25 Blood Type Antibody Screen Crossmatch BBK History Checked 03/16/18 11:00 WBC RBC Hgb Hct MCV MCH MCHC RDW Plt Count MPV Gran % Lymph % (Auto) [place] % (Auto) Eos % (Auto) Baso % (Auto) Gran # Lymph # (Auto) [place] # (Auto) Eos # (Auto) Baso # (Auto) PT INR Sodium Potassium Chloride Carbon Dioxide Anion Gap BUN Creatinine Est GFR ( Amer) Est GFR (Non-Af Amer) Random Glucose Hemoglobin A1c Calcium Phosphorus Magnesium Total Bilirubin AST ALT Alkaline Phosphatase Troponin I 0.04 Total Protein Albumin Globulin Albumin/Globulin Ratio Triglycerides Cholesterol LDL Cholesterol Direct HDL Cholesterol TSH 3rd Generation Blood Type Antibody Screen Crossmatch BBK History Checked Attending/Attestation - Attestation I have personally seen and examined this patient.: Yes I have fully participated in the care of the patient.: Yes I have reviewed all pertinent clinical information: Yes Notes (Text): 03/16/18 13:44 82 yo male with PVD, CAD, admitted to ICU post EVAR. Plan: serial neuro and vascular exam, chest PT, IS, bronchodilators, early mobilization when cleared by surgery, maintain Hb>8, DVT/GI prophylaxis ccm time 40 min
--- NOTE | 2018-03-16 16:10 | CARD ---
APPROVED REPORT EKG Measurement Heart [id number] <Conclusion> Atrial fibrillation Low voltage QRS limb leads LVH STTW changes c/w ischemia
--- NOTE | 2018-03-16 17:21 | PN ---
DATE: 03/16/2018 SUBJECTIVE: The patient is 82 years old, seen and examined. A little sleepy, but arousable, communicative, seen in recovery, able to communicate. OBJECTIVE: VITAL SIGNS: The patient is afebrile, pulse 72, respirations 15, blood pressure 102/56. LUNGS: Bilateral good airflow. No rhonchi or crackle. HEART: S1 and S2 audible. ABDOMEN: Soft. Nontender. No rebound. No guarding. NEUROLOGICAL: He is awake, alert, oriented, communicative. LABORATORY EXAM: WBC 3.5, hemoglobin 10.6, hematocrit 32.3, platelets of 87. PT 11.9, INR 11.3. Chemistry: Sodium 144, potassium 4, chloride 104, CO2 of 30. BUN 24, creatinine 1.1. Blood sugar of 107. Troponin 0.04. Dilantin level is 12. ASSESSMENT: 1. Status post infrarenal abdominal aortic aneurysm intravascularly repaired. 2. History of seizure disorder. 3. Zenker diverticulum. 4. Chronic obstructive pulmonary disease. 5. Hyperlipidemia. PLAN: We will continue the patient on current medications. He will be admitted in CCU for close monitoring and we will continue all medications as prior to admission in CCU that include nebulizer treatment, he is on IV fluid. We will continue him on diltiazem. Eliquis will be started when okayed by Dr. Bill Eduardo. Tri Fleming MD
[2018-03-16] MEDS: Sodium Chloride 0.45% 1,000 ML IV SCH (17:27)
[2018-03-16 18:49] LABS: MEAN CELL VOLUME 85.8 fl (80.0-105.0); MEAN CORPUSCULAR HEMOGLOBIN 28.4 pg (25.0-35.0); MEAN PLATELET VOLUME 8.6 fl (7.0-11.0); RBC 2.61 10^6/uL (3.5-6.1); RED CELL DISTRIBUTION WIDTH 17.8 % (11.5-14.5); WHITE BLOOD COUNT 5.3 10^3/ul (4.5-11.0)
[2018-03-16 18:53] LABS: HEMOGLOBIN 7.4 g/dL (14.0-18.0)
--- NOTE | 2018-03-16 19:22 | VASCULAR ---
PROCEDURE: AAA stent graft repair HISTORY: 5.5 cm infrarenal abdominal aortic aneurysm repair PHYSICIAN(S): Bill Eduardo MD. Qi Grullon MD TECHNIQUE: he relative risks and indications for the procedure were explained to the patient and informed written consent obtained. The patient was placed supine on the arteriography table and the abdomen and groins prepped and draped in the usual sterile fashion. Deep sedation was provided throughout the procedure by anesthesia. Two Perclose devices were pre deployed at the groins bilaterally under ultrasound guidance. The 18 [place] main body sheath was placed on the left. The 12 [place] contralateral sheath was placed on the right. A 5 [place] flush marking catheter was placed from the right approach at the level of the renal artery. 35 x 14.5 x 16 cm excluder bifurcated main body graft was placed from the left at the level of the renal arteries. Renal arteries were carefully localized with contrast. The main body was unsheathed immediately below the left renal artery. The contralateral limb was cannulated and position confirmed with a pigtail catheter. The length from the T8 to the right common iliac bifurcation was measured. An 18 mm x 11.5 cm contralateral limb was placed. The ipsilateral limb was deployed. A compliant balloon was used at the neck and contralateral gate and contralateral limb landing site. Completion angiograms were performed. No endoleak was noted. The sheaths were removed and hemostasis obtained with the Perclose devices. The patient tolerated the procedure well. No endoleak was noted. 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 The right renal artery is patent. Both iliac limbs are patent. IMPRESSION: 1) [place] excluder bifurcated infrarenal aortic stent graft placement as described above
--- NOTE | 2018-03-16 20:53 | OP ---
PROCEDURE DATE: 03/16/2018 PREOPERATIVE DIAGNOSIS: Infrarenal abdominal aortic aneurysm. POSTOPERATIVE DIAGNOSIS: Infrarenal abdominal aortic aneurysm. PROCEDURE: Percutaneous aortic endograft insertion, Dyer-type. SURGEON: Qi Grullon MD CO-SURGEON: Bill Eduardo MD PROCEDURE NOTE: The patient was brought to the cardiac laborer pullet farm and placed supine on the cardiac cath table. After adequate IV sedation had been accomplished, the lower abdomen and both groin were prepped with ChloraPrep and draped out as a sterile field. Ultrasound of both groin was performed showing a moderately calcified femoral artery with small spot, free of calcium bilaterally. Attention was directed towards the soft surface and calcified surface of the femoral artery. After local infiltration with 1% Xylocaine, both femoral artery above the femoral bifurcation have been percutaneously accessed with a micropuncture needle and a micro guidewire passing to the iliac artery. The micropuncture needle was exchanged for the sheath and the 0.035 Starter wire on both sides. After that, 2 Perclose were deployed on both groin over guidewire, one at 10 o'clock and one at 2 o'clock. After that the 12 [place] sheath for insertion of the endograft was inserted and an aortogram was performed by passing a pigtail into the renal artery level. A 35 x 14.5 x 16 main body was selected and this was passed up the left femoral sheath into the aortic main body. Following the guidance of the aortogram, this main body was deployed just below the right renal artery. Note, at this point was a high grade stenosis of the left renal artery. After the main body was deployed, a repeat iliac angiogram was performed and an 18 x 12 detective sergeant was deployed on the right side down to the bifurcation of the iliac artery above the internal iliac artery. After that, the left limb of the main body was opened, the whole endograft was tacked down using a 4 cm low pressure balloon. Completion aortogram show no endoleak. The sheath was removed and the previously placed Perclose cinch down. There was no bleeding on either groin. Sterile dressing was placed. Examination of the feet show no evidence of ischemia, both DP and PT pulses were dopplerable as previous. Sterile dressing was placed at the groin. The patient tolerated the procedure well and was returned to the recovery room in stable condition. Qi Grullon MD [facility] # [id number]
[2018-03-17] MEDS ORDERED: Pantoprazole 40 mg EC Tab PO SCH (06:00)
[2018-03-17] MEDS: Sodium Chloride 0.45% 1,000 ML IV SCH (06:23)
[2018-03-17 06:44] LABS: HEMOGLOBIN 10.3 g/dL (14.0-18.0); MEAN CELL VOLUME 85.3 fl (80.0-105.0); MEAN CORPUSCULAR HEMOGLOBIN 28.5 pg (25.0-35.0); MEAN CORPUSCULAR HGB CONC 33.4 g/dl (31.0-37.0); MEAN PLATELET VOLUME 8.4 fl (7.0-11.0); RBC 3.61 10^6/uL (3.5-6.1); RED CELL DISTRIBUTION WIDTH 16.5 % (11.5-14.5); WHITE BLOOD COUNT 5.3 10^3/ul (4.5-11.0)
[2018-03-17 07:19] LABS: ALB/GLOB RATIO 1.4 (1.1-1.8); ALBUMIN 3.1 g/dL (3.0-4.8); ALT/SGPT 35 U/L (7-56); AST/SGOT 23 U/L (17-59); BLOOD UREA NITROGEN 19 mg/dL (7-21); CALCIUM 8.3 mg/dL (8.4-10.5); GFR AFRICAN-AMERICAN > 60; GFR NON-AFRICAN AMERICAN > 60
[2018-03-17] MEDS: diltiaZEM 180 mg/24 Hours CD Cap PO SCH (10:30)
[2018-03-17] MEDS: Metoprolol Succinate 25 mg XL Tab PO SCH (10:31)
--- NOTE | 2018-03-17 11:00 | CP.PCM.PN ---
Subjective - Date & Time of Evaluation Date of Evaluation: 03/17/18 Time of Evaluation: 10:57 - Subjective Subjective: Vascular surgery progress note for Dr. Fariba Cervantes, PGY-1 Pt S & E at bedside at 0940 Pt sitting up in bed, comfortable. Denies N & V, F & C, ab pain, lower extremity pain, other complaints. Objective - Vital Signs/Intake and Output Vital Signs (last 24 hours): Temp Pulse Resp BP Pulse Ox 98.7 F 95 H 16 117/55 L 97 03/16/18 23:35 03/17/18 10:31 03/17/18 07:50 03/17/18 10:31 03/17/18 08:20 Intake and Output: 03/17/18 03/17/18 06:59 18:59 Intake Total 1805 Output Total 600 Balance 1205 - Medications Medications: Current Medications Apixaban (Eliquis) 5 mg PO BID [facility] PRN Reason: Protocol Atorvastatin Calcium (Lipitor) 10 mg PO DIN [facility] Last Admin: 03/16/18 17:28 Dose: 10 mg Diltiazem HCl (Cardizem Cd) 360 mg PO DAILY [facility] Last Admin: 03/17/18 10:30 Dose: 360 mg Furosemide (Lasix) 40 mg IVP DAILY [facility] Last Admin: 03/17/18 10:29 Dose: 40 mg Metoprolol Succinate (Toprol Xl) 25 mg PO BID [facility] Last Admin: 03/17/18 10:31 Dose: 25 mg Pantoprazole Sodium (Protonix Ec Tab) 40 mg PO 0600 [facility] Last Admin: 03/17/18 06:26 Dose: 40 mg Phenytoin Sodium (Dilantin) 100 mg PO TID [facility] Last Admin: 03/17/18 10:30 Dose: 100 mg - Labs Labs: 03/17/18 06:00 03/17/18 06:00 PT 11.9 SECONDS (9.4-12.5) 03/16/18 07:00 INR 1.03 (0.93-1.08) 03/16/18 07:00 APTT 29.1 Seconds (25.1-36.5) 03/13/18 08:12 - Constitutional Appears: Non-toxic, No Acute Distress - Head Exam Head Exam: ATRAUMATIC, NORMAL INSPECTION, NORMOCEPHALIC - Eye Exam Eye Exam: EOMI, Normal appearance - ENT Exam ENT Exam: Mucous Membranes Moist, Normal Exam - Neck Exam Neck Exam: Full ROM, Normal Inspection - Respiratory Exam Respiratory Exam: NORMAL BREATHING PATTERN - Cardiovascular Exam Cardiovascular Exam: Tachycardia (90's - low 100's), +S1, +S2 - GI/Abdominal Exam GI & Abdominal Exam: Soft. absent: Tenderness - Extremities Exam Additional comments: PT & DP by doppler - Neurological Exam Neurological Exam: Alert, Awake, CN II-XII Intact, Oriented x3 - Psychiatric Exam Psychiatric exam: Normal Affect, Normal Mood - Skin Skin Exam: Dry, Intact, Normal Color, Warm Assessment and Plan - Assessment and Plan (Free Text) Assessment: 82M w/PMH sig for AAA POD#1 s/p EVAR Plan: D/c anthony OOBJUAN JOSE Ambulate with assistance Activity as tolerated PT Ok for transfer to tele Further mgmt as per primary team Will EDITA attending Helen, PGY-1
--- NOTE | 2018-03-17 11:53 | PN ---
DATE: 03/17/2018 REASON FOR CONSULTATION AND FOLLOWUP: Cardiac evaluation and followup, status post AAA endovascular graft implantation, [place]. SUBJECTIVE: The patient denies any chest pain, shortness of breath, or any palpitations. OBJECTIVE: GENERAL: Not in apparent distress. VITAL SIGNS: As follows, temperature afebrile, heart rate 104, blood pressure 141/58. HEENT: PERRLA, intact. NECK: Supple. No carotid bruit or thyromegaly. CHEST: Clear to auscultation. HEART: S1 and S2, regular. ABDOMEN: Soft. EXTREMITIES: Clubbing and cyanosis negative. LABORATORY DATA: WBC 5.3, hemoglobin 10.3, hematocrit 30.8, platelet count 75. Chemistry shows sodium 143, potassium 4.3, chloride 107, carbon dioxide 26, anion gap of 14, BUN 19, creatinine 1. Total protein 5.3, albumin 3.1, albumin-globulin ratio 1.4. IMPRESSION: An 82-year-old male with past medical history significant for chronic atrial fibrillation, abdominal aortic aneurysm 5.4 and 10 cm long, status post endovascular repair done yesterday; history of Zenker's diverticulum, chronic atrial fibrillation, seizure disorder, hypertension and gastroesophageal reflux; prior to endovascular stent, the patient was on Eliquis, on hold for endovascular repair. Postop, the patient is stable, atrial fibrillation with moderate rate. RECOMMENDATIONS: Continue Cardizem. Continue atorvastatin. Continue gentle diuretics. Continue metoprolol. We will start heart-healthy diet and if he remains stable, possible transfer to Tele. Repeat blood workup in the morning and if it remaining stable, we will start Eliquis from tomorrow. We will discuss with Dr. Grullon. Follow up serial CPK to prevent endovascular leak. When no risk of leak, we will start Eliquis may be in a day or two. We will follow with you. Thank you, Dr. Fleming, for providing us the opportunity in taking care of the patient, Roshan Hale. We will discontinue IV fluid. Gladis Greenfield MD
[2018-03-17 12:49] VITALS: BP 138/82; PULSE 97; RESP 15; TEMP 98
[2018-03-17 12:52] VITALS: O2SAT 82
--- NOTE | 2018-03-17 12:57 | CP.CCUPN ---
<MathewGaldino Cortes - Last Filed: 03/17/18 12:53> CCU Subjective - Physician Review Subjective (Free Text): 03/17/18 08:00A Patient seen and examined at bedside, no acute events overnight, patient is doing well and presents no complaints. Patient denies shortness of breath, chest pain, swelling at injection site. CCU Objective - Vital Signs / Intake & Output Vital Signs (Last 4 hours): Vital Signs Temp Pulse Resp BP Pulse Ox 03/17/18 12:00 98 F 97 H 15 138/82 03/17/18 11:04 82 L 03/17/18 11:03 102 H 87 L 03/17/18 11:02 93 H 81 L 03/17/18 11:01 86 100 03/17/18 11:00 156/104 H 03/17/18 10:59 96 H 94 L 03/17/18 10:58 94 H 89 L 03/17/18 10:57 98 H 98 03/17/18 10:50 92 H 78 L 03/17/18 10:46 97 H 03/17/18 10:45 116/72 03/17/18 10:44 103 H 03/17/18 10:43 109 H 03/17/18 10:42 102 H 03/17/18 10:41 102 H 03/17/18 10:40 113 H 03/17/18 10:39 117 H 03/17/18 10:38 115 H 03/17/18 10:37 104 H 03/17/18 10:36 98 H 88 L 03/17/18 10:35 95 H 100 03/17/18 10:34 104 H 17 03/17/18 10:31 95 H 151/75 H 03/17/18 10:30 101 H 117/55 L 85 L 03/17/18 10:29 117/55 L 03/17/18 10:26 97 H 93 L 03/17/18 10:20 96 H 22 85 L 03/17/18 10:16 97 H 30 H 117/55 L 82 L 03/17/18 10:10 98 H 29 H 84 L 03/17/18 10:03 90 26 H 126/75 91 L 03/17/18 10:00 95 H 28 H 91 L 03/17/18 09:50 92 H 25 H 93 L 03/17/18 09:45 94 H 23 147/70 94 L 03/17/18 09:40 100 H 26 H 93 L 03/17/18 09:30 95 H 21 147/76 96 03/17/18 09:22 106 H 23 179/101 H 97 03/17/18 09:20 121 H 91 L 03/17/18 09:10 125 H 20 92 L 03/17/18 09:05 115 H 21 170/92 H 97 03/17/18 09:04 106 H 18 142/78 88 L Intake and Output (Last 8hrs): Intake & Output 03/16/18 03/17/18 03/17/18 22:59 06:59 14:59 Intake Total 1400 1555 Output Total 500 600 Balance 900 955 Intake: IV 585 350 Left Hand 485 350 Right Antecubital 100 Oral 240 200 Blood Product 575 1005 Apheresis Rbc Cp2d As3 Lr 250 1st Unit [id number] Red Blood Cells Cpd As1 325 Lr Unit [id number] Red Blood Cells Cpd As1 0 325 Lr Unit [id number] Output: Urine 500 600 Urethral (Mcintosh) 500 Urine, Voided 600 Stool 0 Emesis 0 Other: # Bowel Movements 0 - Physical Exam Head: Positive for: Atraumatic, Normocephalic Pupils: Positive for: PERRL Extroacular Muscles: Positive for: EOMI Conjunctiva: Positive for: Normal Mouth: Positive for: Moist Mucous Membranes Pharnyx: Negative for: ERYTHEMA, EXUDATE, TONSILS ENLARGED Neck: Positive for: Normal Range of Motion Respiratory/Chest: Positive for: Clear to Auscultation, Good Air Exchange, Decreased Breath Sounds. Negative for: Respiratory Distress, Accessory Muscle Use Cardiovascular: Positive for: Irregular Rhythm, Other (normal rate) Abdomen: Positive for: Other (ileostomy). Negative for: Tenderness, Distention , Peritoneal Signs, Rebound, Guarding Upper Extremity: Positive for: Normal Inspection. Negative for: Cyanosis, Edema Lower Extremity: Positive for: Edema (1+ bilateral lower extremity edema), NORMAL PULSES, Normal ROM, Neurovascularly Intact, Other (Patient's injection sites in bilateral femoral regions are non-erythematous) Neurological: Positive for: GCS=15, CN II-XII Intact, Speech Normal, Motor Func Grossly Intact, Normal Sensory Function, Normal Cerebellar Funct, Memory Normal (Neuro examination normal with muscle strength intact bilateral extremities, sensation in tact, CN II-XII in tact ) Skin: Positive for: Warm, Dry, Normal Color. Negative for: Rashes Psychiatric: Positive for: Alert, Oriented x 3, Normal Insight, Normal Concentration - Patient Studies Lab Studies: Lab Studies 03/17/18 03/17/18 03/16/18 Range/Units 06:00 06:00 18:30 WBC 5.3 5.3 D (4.5-11.0) 10^3/ul RBC 3.61 2.61 L (3.5-6.1) 10^6/uL Hgb 10.3 L D 7.4 L D (14.0-18.0) g/dL Hct 30.8 L 22.4 L (42.0-52.0) % MCV 85.3 85.8 D (80.0-105.0) fl MCH 28.5 28.4 (25.0-35.0) pg MCHC 33.4 33.0 (31.0-37.0) g/dl RDW 16.5 H 17.8 H (11.5-14.5) % Plt Count 75 L 74 L (120.0-450.0) 10^3/uL MPV 8.4 8.6 (7.0-11.0) fl Sodium 143 (132-148) mmol/L Potassium 4.3 (3.6-5.0) mmol/L Chloride 107 (98-107) mmol/L Carbon Dioxide 26 (21-33) mmol/L Anion Gap 14 (10-20) BUN 19 (7-21) mg/dL Creatinine 1.0 (0.8-1.5) mg/dl Est GFR ( Amer) > 60 Est GFR (Non-Af Amer) > 60 Random Glucose 117 H (70-110) mg/dL Calcium 8.3 L (8.4-10.5) mg/dL Phosphorus 3.5 (2.5-4.5) mg/dL Magnesium 1.9 (1.7-2.2) mg/dL Total Bilirubin 0.7 (0.2-1.3) mg/dL AST 23 (17-59) U/L ALT 35 (7-56) U/L Alkaline Phosphatase 71 (38-126) U/L Total Protein 5.3 L (5.8-8.3) g/dL Albumin 3.1 (3.0-4.8) g/dL Globulin 2.2 gm/dL Albumin/Globulin Ratio 1.4 (1.1-1.8) Blood Type Antibody Screen Crossmatch BBK History Checked 03/15/18 Range/Units 16:21 WBC (4.5-11.0) 10^3/ul RBC (3.5-6.1) 10^6/uL Hgb (14.0-18.0) g/dL Hct (42.0-52.0) % MCV (80.0-105.0) fl MCH (25.0-35.0) pg MCHC (31.0-37.0) g/dl RDW (11.5-14.5) % Plt Count (120.0-450.0) 10^3/uL MPV (7.0-11.0) fl Sodium (132-148) mmol/L Potassium (3.6-5.0) mmol/L Chloride (98-107) mmol/L Carbon Dioxide (21-33) mmol/L Anion Gap (10-20) BUN (7-21) mg/dL Creatinine (0.8-1.5) mg/dl Est GFR ( Amer) Est GFR (Non-Af Amer) Random Glucose (70-110) mg/dL Calcium (8.4-10.5) mg/dL Phosphorus (2.5-4.5) mg/dL Magnesium (1.7-2.2) mg/dL Total Bilirubin (0.2-1.3) mg/dL AST (17-59) U/L ALT (7-56) U/L Alkaline Phosphatase (38-126) U/L Total Protein (5.8-8.3) g/dL Albumin (3.0-4.8) g/dL Globulin gm/dL Albumin/Globulin Ratio (1.1-1.8) Blood Type O POSITIVE Antibody Screen Negative Crossmatch See Detail BBK History Checked Patient has bt Laboratory Results - last 24 hr 03/15/18 03/16/18 03/17/18 16:21 18:30 06:00 WBC 5.3 D 5.3 RBC 2.61 L 3.61 Hgb 7.4 L D 10.3 L D Hct 22.4 L 30.8 L MCV 85.8 D 85.3 MCH 28.4 28.5 MCHC 33.0 33.4 RDW 17.8 H 16.5 H Plt Count 74 L 75 L MPV 8.6 8.4 Sodium Potassium Chloride Carbon Dioxide Anion Gap BUN Creatinine Est GFR ( Amer) Est GFR (Non-Af Amer) Random Glucose Calcium Phosphorus Magnesium Total Bilirubin AST ALT Alkaline Phosphatase Total Protein Albumin Globulin Albumin/Globulin Ratio Blood Type O POSITIVE Antibody Screen Negative Crossmatch See Detail BBK History Checked Patient has bt 03/17/18 06:00 WBC RBC Hgb Hct MCV MCH MCHC RDW Plt Count MPV Sodium 143 Potassium 4.3 Chloride 107 Carbon Dioxide 26 Anion Gap 14 BUN 19 Creatinine 1.0 Est GFR ( Amer) > 60 Est GFR (Non-Af Amer) > 60 Random Glucose 117 H Calcium 8.3 L Phosphorus 3.5 Magnesium 1.9 Total Bilirubin 0.7 AST 23 ALT 35 Alkaline Phosphatase 71 Total Protein 5.3 L Albumin 3.1 Globulin 2.2 Albumin/Globulin Ratio 1.4 Blood Type Antibody Screen Crossmatch BBK History Checked EKG/Cardiology Studies: Cardiology / EKG Studies 03/17/18 06:24 EKG [ELECTROCARDIOGRAM] Stat Comment: Reason For Exam: elevated HR Critical Care Progress Note - Nutrition Nutrition: Nutrition Category Date Time Status Heart Healthy Diet [DIET] Diets 03/17/18 Breakfast Active Assessment/Plan - Assessment and Plan (Free Text) Assessment: 82 year old male with pertinent history of AAA presented with chest pain and is now s/p EVAR. Patient is without chest pain and shortness of breath, and troponin drawn earlier is at his baseline. Patient's sites of injection do not indicate infection, vitals are stable, and only SIRS criteria is low WBC which was present before procedure. RE: patient's A-Fib, his latest EKG showed A- Flutter but rate is controlled. Patient was administered a total of 2 U PRBC, 2 U LR Plts, and 1 U Pher plts yesterday. Plan: Neuro: - Hx Seizures: Continue home Dilantin - Maintain normothermia Pulmonary: - Hx COPD - Xopenex with Ipratropium PRN - Maintain O2 sat > 90% Cardio: - Hx A-Fib - Continue home Cardizem and Toprol XL. Hold ASA and Eliquis s/p procedure - Hx HLD - Lipitor - Hx HTN - Continue Home Toprol XL and Lasix - Hx AAA s/p EVAR - Continue fluids; monitor injection sites; monitor troponin and EKG; Vitals q2H Renal: - Fluids - Monitor electrolytes and replete PRN - Maintain Euvolemia Heme: - Hold DVT PPX because s/p EVAR Endo: - Maintain Euglycemia Dispo: At this time, patient is stable for transfer to telemetry. <Ari Andujar - Last Filed: 03/17/18 14:00> CCU Objective - Vital Signs / Intake & Output Vital Signs (Last 4 hours): Vital Signs Temp Pulse Resp BP Pulse Ox 03/17/18 12:00 98 F 97 H 15 138/82 03/17/18 11:04 82 L 03/17/18 11:03 102 H 87 L 03/17/18 11:02 93 H 81 L 03/17/18 11:01 86 100 03/17/18 11:00 156/104 H 03/17/18 10:59 96 H 94 L 03/17/18 10:58 94 H 89 L 03/17/18 10:57 98 H 98 03/17/18 10:50 92 H 78 L 03/17/18 10:46 97 H 03/17/18 10:45 116/72 03/17/18 10:44 103 H 03/17/18 10:43 109 H 03/17/18 10:42 102 H 03/17/18 10:41 102 H 03/17/18 10:40 113 H 03/17/18 10:39 117 H 03/17/18 10:38 115 H 03/17/18 10:37 104 H 03/17/18 10:36 98 H 88 L 03/17/18 10:35 95 H 100 03/17/18 10:34 104 H 17 03/17/18 10:31 95 H 151/75 H 03/17/18 10:30 101 H 117/55 L 85 L 03/17/18 10:29 117/55 L 03/17/18 10:26 97 H 93 L 03/17/18 10:20 96 H 22 85 L 03/17/18 10:16 97 H 30 H 117/55 L 82 L 03/17/18 10:10 98 H 29 H 84 L 03/17/18 10:03 90 26 H 126/75 91 L 03/17/18 10:00 95 H 28 H 91 L Intake and Output (Last 8hrs): Intake & Output 03/16/18 03/17/18 03/17/18 22:59 06:59 14:59 Intake Total 1400 1555 Output Total 500 600 Balance 900 955 Intake: IV 585 350 Left Hand 485 350 Right Antecubital 100 Oral 240 200 Blood Product 575 1005 Apheresis Rbc Cp2d As3 Lr 250 1st Unit [id number] Red Blood Cells Cpd As1 325 Lr Unit [id number] Red Blood Cells Cpd As1 0 325 Lr Unit [id number] Output: Urine 500 600 Urethral (Mcintosh) 500 Urine, Voided 600 Stool 0 Emesis 0 Other: # Bowel Movements 0 - Patient Studies Lab Studies: Lab Studies 03/17/18 03/17/18 03/16/18 Range/Units 06:00 06:00 18:30 WBC 5.3 5.3 D (4.5-11.0) 10^3/ul RBC 3.61 2.61 L (3.5-6.1) 10^6/uL Hgb 10.3 L D 7.4 L D (14.0-18.0) g/dL Hct 30.8 L 22.4 L (42.0-52.0) % MCV 85.3 85.8 D (80.0-105.0) fl MCH 28.5 28.4 (25.0-35.0) pg MCHC 33.4 33.0 (31.0-37.0) g/dl RDW 16.5 H 17.8 H (11.5-14.5) % Plt Count 75 L 74 L (120.0-450.0) 10^3/uL MPV 8.4 8.6 (7.0-11.0) fl Sodium 143 (132-148) mmol/L Potassium 4.3 (3.6-5.0) mmol/L Chloride 107 (98-107) mmol/L Carbon Dioxide 26 (21-33) mmol/L Anion Gap 14 (10-20) BUN 19 (7-21) mg/dL Creatinine 1.0 (0.8-1.5) mg/dl Est GFR ( Amer) > 60 Est GFR (Non-Af Amer) > 60 Random Glucose 117 H (70-110) mg/dL Calcium 8.3 L (8.4-10.5) mg/dL Phosphorus 3.5 (2.5-4.5) mg/dL Magnesium 1.9 (1.7-2.2) mg/dL Total Bilirubin 0.7 (0.2-1.3) mg/dL AST 23 (17-59) U/L ALT 35 (7-56) U/L Alkaline Phosphatase 71 (38-126) U/L Total Protein 5.3 L (5.8-8.3) g/dL Albumin 3.1 (3.0-4.8) g/dL Globulin 2.2 gm/dL Albumin/Globulin Ratio 1.4 (1.1-1.8) Blood Type Antibody Screen Crossmatch BBK History Checked 03/15/18 Range/Units 16:21 WBC (4.5-11.0) 10^3/ul RBC (3.5-6.1) 10^6/uL Hgb (14.0-18.0) g/dL Hct (42.0-52.0) % MCV (80.0-105.0) fl MCH (25.0-35.0) pg MCHC (31.0-37.0) g/dl RDW (11.5-14.5) % Plt Count (120.0-450.0) 10^3/uL MPV (7.0-11.0) fl Sodium (132-148) mmol/L Potassium (3.6-5.0) mmol/L Chloride (98-107) mmol/L Carbon Dioxide (21-33) mmol/L Anion Gap (10-20) BUN (7-21) mg/dL Creatinine (0.8-1.5) mg/dl Est GFR ( Amer) Est GFR (Non-Af Amer) Random Glucose (70-110) mg/dL Calcium (8.4-10.5) mg/dL Phosphorus (2.5-4.5) mg/dL Magnesium (1.7-2.2) mg/dL Total Bilirubin (0.2-1.3) mg/dL AST (17-59) U/L ALT (7-56) U/L Alkaline Phosphatase (38-126) U/L Total Protein (5.8-8.3) g/dL Albumin (3.0-4.8) g/dL Globulin gm/dL Albumin/Globulin Ratio (1.1-1.8) Blood Type O POSITIVE Antibody Screen Negative Crossmatch See Detail BBK History Checked Patient has bt Laboratory Results - last 24 hr 03/15/18 03/16/18 03/17/18 16:21 18:30 06:00 WBC 5.3 D 5.3 RBC 2.61 L 3.61 Hgb 7.4 L D 10.3 L D Hct 22.4 L 30.8 L MCV 85.8 D 85.3 MCH 28.4 28.5 MCHC 33.0 33.4 RDW 17.8 H 16.5 H Plt Count 74 L 75 L MPV 8.6 8.4 Sodium Potassium Chloride Carbon Dioxide Anion Gap BUN Creatinine Est GFR ( Amer) Est GFR (Non-Af Amer) Random Glucose Calcium Phosphorus Magnesium Total Bilirubin AST ALT Alkaline Phosphatase Total Protein Albumin Globulin Albumin/Globulin Ratio Blood Type O POSITIVE Antibody Screen Negative Crossmatch See Detail BBK History Checked Patient has bt 03/17/18 06:00 WBC RBC Hgb Hct MCV MCH MCHC RDW Plt Count MPV Sodium 143 Potassium 4.3 Chloride 107 Carbon Dioxide 26 Anion Gap 14 BUN 19 Creatinine 1.0 Est GFR ( Amer) > 60 Est GFR (Non-Af Amer) > 60 Random Glucose 117 H Calcium 8.3 L Phosphorus 3.5 Magnesium 1.9 Total Bilirubin 0.7 AST 23 ALT 35 Alkaline Phosphatase 71 Total Protein 5.3 L Albumin 3.1 Globulin 2.2 Albumin/Globulin Ratio 1.4 Blood Type Antibody Screen Crossmatch BBK History Checked EKG/Cardiology Studies: Cardiology / EKG Studies 03/17/18 06:24 EKG [ELECTROCARDIOGRAM] Stat Comment: Reason For Exam: elevated HR Critical Care Progress Note - Nutrition Nutrition: Nutrition Category Date Time Status Heart Healthy Diet [DIET] Diets 03/17/18 Breakfast Active Attending/Attestation - Attestation I have personally seen and examined this patient.: No I have fully participated in the care of the patient.: No I have reviewed all pertinent clinical information: No Notes (Text): 03/17/18 13:59 patient was trasnfered out of icu by Dr. Gan (vascular surgery) and I have not participated in patient's care today. Resident note was put in my que by mistake
--- NOTE | 2018-03-17 15:07 | CARD ---
APPROVED REPORT EKG Measurement Heart [id number] <Conclusion> Atrial fibrillation with premature ventricular or aberrantly conducted complexes Minimal voltage criteria for LVH ST-T wave abnormality c/w ischemia
--- NOTE | 2018-03-18 12:23 | DS ---
HISTORY OF PRESENT ILLNESS: Patient is an 82 years old, seen and examined, in ICU bed. Doing well. Wants to go home. He wants to see his dog. He missed her for 4 days. Doing well. Eating and tolerating. PHYSICAL EXAMINATION: VITAL SIGNS: He is afebrile. Pulse 97, respirations 15, blood pressure 138/82. LUNGS: Bilateral good air flow. No rhonchi or crackle. HEART: S1 and S2 audible. ABDOMEN: Soft and nontender. No rebound. No guarding. NEUROLOGIC: Patient is awake, alert, oriented, communicative. LABORATORY DATA: WBC 5.3, hemoglobin 10.3, hematocrit 30.8, platelet 175. Chemistry: Sodium 143, potassium 4.3, chloride 107, CO2 96, BUN 19, creatinine 1, blood sugar of 117. ASSESSMENT AND PLAN: 1. Status post infrarenal aortic repair. 2. Noncardiac chest pain. Stress test on last admission was unremarkable. 3. Seizure disorder. 4. Recovering left foot fracture. 5. Hypertension. 6. History of cancer of colon status post colostomy. PLAN: Patient is clinically stable. We will discharge him. He will be on Lasix 40 mg IV Thursday, Thursday, Thursday; metoprolol 25 b.i.d.; diltiazem 360 daily. He is on phenytoin 100 three times a day, aspirin 81 daily, Eliquis he will be starting from tomorrow 5 mg daily. Medication has been called out. Patient will follow with me and Dr. Greenfield within a week and he will need CT scan in every 3 to 6 months. Tri Fleming MD
== END 2018-03-17 12:15 | disposition home health service (06) | DRG 269 ==
LOC: ED 07:54 → ERH 09:33 → 2RNO 11:16 → 5RNO 03-15 17:39 → CCU 03-16 12:01
PROVIDERS: ADMIT Internal Medicine; ATTEND Internal Medicine
PROC: 04V03D6 (ICD-10-PCS; principal; 2018-03-16)
PROC: 30233N1 Transfusion of Nonautologous Red Blood Cells into Peripheral Vein, Percutaneous Approach (ICD-10-PCS; 2018-03-16)
PROC: 6A551Z2 Pheresis of Platelets, Multiple (ICD-10-PCS; 2018-03-16)
DX: I71.4 Abdominal aortic aneurysm, without rupture (principal); I48.92 Unspecified atrial flutter; I11.0 Hypertensive heart disease with heart failure; I50.9 Heart failure, unspecified; I25.10 Atherosclerotic heart disease of native coronary artery without angina pectoris; D69.6 Thrombocytopenia, unspecified; E78.00 Pure hypercholesterolemia, unspecified; E78.5 Hyperlipidemia, unspecified; G40.909 Epilepsy, unspecified, not intractable, without status epilepticus; I48.2 Chronic atrial fibrillation; I73.9 Peripheral vascular disease, unspecified; J44.9 Chronic obstructive pulmonary disease, unspecified; K21.9 Gastro-esophageal reflux disease without esophagitis; K22.5 Diverticulum of esophagus, acquired; Z79.01 Long term (current) use of anticoagulants; Z79.82 Long term (current) use of aspirin; Z85.048 Personal history of other malignant neoplasm of rectum, rectosigmoid junction, and anus; Z85.820 Personal history of malignant melanoma of skin; Z86.73 Personal history of transient ischemic attack (TIA), and cerebral infarction without residual deficits; Z86.79 Personal history of other diseases of the circulatory system; Z87.01 Personal history of pneumonia (recurrent); Z87.891 Personal history of nicotine dependence; Z90.49 Acquired absence of other specified parts of digestive tract; R07.9 Chest pain, unspecified; I08.3 Combined rheumatic disorders of mitral, aortic and tricuspid valves

== ENCOUNTER 2018-07-12 16:30 | Inpatient (IN) | payer MEDICARE ==
[2018-07-12 17:03] VITALS: BMI 21.2
--- NOTE | 2018-07-12 17:34 | ED PDOC ---
Arrival/HPI - General Chief Complaint: Abnormal Skin Integrity Time Seen by Provider: 07/12/18 17:08 Historian: Patient - History of Present Illness Narrative History of Present Illness (Text): 07/12/18 17:24 A 82 year old male, whose past medical history includes rectal cancer (2000), presents to the emergency department complaining of blood in colostomy bag. Patient reports while at home, he went to the bathroom and decided to change his colostomy bag, in which at the time patient blood clots present in the bag. Patient denies nausea, vomiting, chest pain, shortness of breath, dizziness, lightheadedness, no pain, or any other complaints at this time. Also, patient denies any history of EtOH abuse, and no longer a smoker. PMD: Dr. Fleming Associated Symptoms (Text): 07/12/18 18:48 Patient is asymptomatic. He routinely was changing his colostomy bag and noticed clots and blood in the bag. No abdominal pain nausea or vomiting. No chest pain palpitations or dyspnea. No headache dizziness or lightheadedness. There is a history of anemia and thrombocytopenia. Patient is on eliquis for atrial fibrillation. Past Medical History - Provider Review Nursing Documentation Reviewed: Yes - Infectious Disease Hx of Infectious Diseases: None - Tetanus Immunization Tetanus Immunization: Up to Date - Cardiac Hx Cardiac Disorders: Yes Hx Cardiac Arrhythmia: Yes (afib, arythmia) Hx Circulatory Problems: Yes Hx Congestive Heart Failure: Yes Hx Hypertension: Yes Hx Pacemaker: No Hx Peripheral Edema: Yes (ble +1, pitting and discolorations) Other/Comment: angioplasty, aaa pt is scheduled for sx 03/16/18,mi - Pulmonary Hx Respiratory Disorders: Yes (USED TO SMOKE CIGARETTES.QUIT 1990) - Neurological Hx Seizures: Yes Hx Transient Ischemic Attacks (TIA): Yes (no deficits) - HEENT Hx HEENT Disorder: Yes ([place] ear, does not use hearing aid) Other/Comment: uses eyeglasses,uses dentures - Renal Hx Renal Disorder: No - Endocrine/Metabolic Hx Endocrine Disorders: No - Hematological/Oncological Hx Blood Disorders: Yes Hx Cancer: Yes (RECTAL CA) Hx Chemotherapy: No Other/Comment: 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, pt had resection for rectal ca no chemo no radiation has colostomy was dx in 2001 - Integumentary Hx Dermatological Disorder: Yes Hx Melanoma: Yes (RIGHT PINNA,HEAD) Other/Comment: 02-22-18 BILAERAL LE EDEMA PITTING +2.MORE TO RIGHT THAN LEFT.LEFT LEG HAS DRY FLAKY SKIN.RIGHT ALL TOES HAS ROUND BRUISING TO EACH TOE.BLUISK PURPLISH HUE. pt has melanoma multiple brown nodules to left holiness and left forehead, has had several areas removed from b/l ears and scalp by dr du, pt wants to follow up on left holiness and forehead but wants to have aaa sx first, - Musculoskeletal/Rheumatological Hx Falls: Yes (past) - Gastrointestinal Hx Gastrointestinal Disorders: Yes Hx Colostomy: Yes (2001/empties 2x's a day brown stool) Hx Gastroesophageal Reflux: Yes HX Swallowing Problems: Yes Other/Comment: rectal cancer, dysphagia due to foreign body chicken bone removed by dr boo and dr wilson as per pt - Genitourinary/Gynecological Hx Genitourinary Disorders: Yes Other/Comment: 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 c/o urinary frequency, retention, difficulty initiating stream - Psychiatric Hx Anxiety: Yes Hx Depression: No Hx Emotional Abuse: No Hx Physical Abuse: No Hx Substance Use: No - Surgical History Hx Appendectomy: Yes Other/Comment: colostomy due to rectal ca, angioplasty - Anesthesia Hx Anesthesia Reactions: No Hx Malignant Hyperthermia: No - Suicidal Assessment Feels Threatened In Home Enviroment: No Family/Social History - Physician Review Nursing Documentation Reviewed: Yes Family/Social History: No Known Family HX Smoking Status: Former Smoker Hx Alcohol Use: Yes (quit 1990) Hx Substance Use: No Hx Substance Use Treatment: No Allergies/Home Meds Allergies/Adverse Reactions: Allergies No Known Allergies Allergy (Verified 07/12/18 16:57) Home Medications: Home Meds Medication Instructions Recorded Confirmed Aspirin [Aspir 81] 81 mg PO DAILY 11/12/13 07/12/18 Phenytoin Sodium Extended 100 mg PO TID 11/12/13 07/12/18 [Dilantin] Furosemide [Lasix] 40 mg PO DAILY 03/17/18 07/12/18 Metoprolol Succinate XL [Toprol XL] 25 mg PO BID 03/17/18 07/12/18 Review of Systems - Physician Review All systems were reviewed & negative as marked: Yes - Review of Systems Constitutional: absent: Fatigue, Fevers Respiratory: absent: SOB Cardiovascular: absent: Chest Pain, Palpitations, Syncope Gastrointestinal: absent: Abdominal Pain, Nausea, Vomiting Neurological: absent: Headache, Dizziness (and no lightheadedness), Focal Weakness Physical Exam Vital Signs Reviewed: Yes Vital Signs Temp Pulse Resp BP Pulse Ox 07/12/18 16:57 97.8 F 91 H 18 160/100 H 96 Temperature: Afebrile Blood Pressure: Hypertensive Pulse: Regular Respiratory Rate: Normal Appearance: Positive for: Well-Appearing, Non-Toxic, Comfortable, Other (Pale) Pain Distress: None Mental Status: Positive for: Alert and Oriented X 3 - Systems Exam Head: Present: Atraumatic, Normocephalic Pupils: Present: PERRL Extroacular Muscles: Present: EOMI Conjunctiva: Present: Normal Mouth: Present: Moist Mucous Membranes Pharnyx: No: ERYTHEMA, EXUDATE, TONSILS ENLARGED Neck: Present: Normal Range of Motion Respiratory/Chest: Present: Decreased Breath Sounds (bilaterally). No: Respiratory Distress, Accessory Muscle Use, Wheezes, Rales, Retracting, Rhonchi, Tachypneic, Tender to Palpation Cardiovascular: Present: Normal S1, S2, Irregular Rhythm (Normal rate). No: Murmurs Abdomen: Present: Other (colostomy bag shows bright red blood). No: Tenderness, Distention, Peritoneal Signs Back: Present: Normal Inspection Upper Extremity: Present: Normal Inspection. No: Cyanosis, Edema Lower Extremity: Present: Normal Inspection. No: Edema Neurological: Present: GCS=15, CN II-XII Intact, Speech Normal, Motor Func Grossly Intact Skin: Present: Pale Psychiatric: Present: Alert, Oriented x 3, Normal Insight, Normal Concentration Medical Decision Making ED Course and Treatment: 07/12/18 17:28 Impression: 82 year old male with blood in colostomy bag. Plan: -- EKG -- Chest X-ray -- Labs -- Protonix -- Reassess and disposition Prior Visits: Notes and results from previous visits were reviewed. Patient was last seen here in the emergency department on 03/13/2018 for chest pain. Patient was admitted. Progress Notes: 07/12/2018 18:20 Chest X-ray IMPRESSION: Improving right lower lobe infiltrate. Cardiomegaly/congestive heart failure progressive compared to the prior study. Dictator: Vick Wagner MD 07/12/18 18:50 EKG shows atrial fibrillation rate approximately [address] or T-wave changes 07/12/18 19:00 Discussed with , who accepts to her service on telemetry observation. Dr. Hinton is here. Consult Dr Du. - Lab Interpretations I have reviewed the lab results: Yes - RAD Interpretation Radiology Orders: 07/12/18 17:28 CHEST PORTABLE [RAD] Stat X-ray chest one view as read by the radiologist shows an improving right lower lobe infiltrate with cardiomegaly and increased vascular congestion [employer] Operator: Radiologist - Medication Orders Current Medication Orders: Pantoprazole Sodium (Protonix Inj) 40 mg IVP ONCE STA Stop: 07/12/18 17:31 - Scribe Statement The provider has reviewed the documentation as recorded by the Scribe Jameel Noyola Provider Scribe Provider Scribe Attestation: All medical record entries made by the Scribe were at my direction and personally dictated by me. I have reviewed the chart and agree that the record accurately reflects my personal performance of the history, physical exam, medical decision making, and the department course for this patient. I have also personally directed, reviewed, and agree with the discharge instructions and disposition. Disposition/Present on Arrival - Present on Arrival Any Indicators Present on Arrival: No History of DVT/PE: No History of Uncontrolled Diabetes: No Urinary Catheter: No History of Decub. Ulcer: No History Surgical Site Infection Following: None - Disposition Have Diagnosis and Disposition been Completed?: Yes Diagnosis: Pancytopenia, Atrial fibrillation, Hypertension, Gastrointestinal hemorrhage Disposition: HOSPITALIZED Disposition Time: 18:52 Patient Plan: Observation, Telemetry Patient Problems: Current Active Problems Problem Status Onset Atrial fibrillation Acute Gastrointestinal hemorrhage Acute Hypertension Acute Pancytopenia Acute Condition: FAIR Referrals: Tri Fleming MD [Primary Care Provider] - Follow up with primary Forms: [employer] ([place]ian)
[2018-07-12 18:01] LABS: BASO # 0.01 K/mm3 (0.0-2.0); BASO % 0.3 % (0.0-3.0); EOS % 0.9 % (1.5-5.0); GRAN # 2.7 (1.4-6.5); GRAN % 77.4 % (50.0-68.0); HEMOGLOBIN 8.2 g/dL (14.0-18.0); LYMPH # 0.3 (1.2-3.4); LYMPH % 9.7 % (22.0-35.0); MEAN CELL VOLUME 97.4 fl (80.0-105.0); MEAN CORPUSCULAR HEMOGLOBIN 30.7 pg (25.0-35.0); MEAN CORPUSCULAR HGB CONC 31.5 g/dl (31.0-37.0); MEAN PLATELET VOLUME 8.4 fl (7.0-11.0); MONO # 0.4 (0.1-0.6); MONO % 11.7 % (1.0-6.0); RBC 2.67 10^6/uL (3.5-6.1); RED CELL DISTRIBUTION WIDTH 16.6 % (11.5-14.5); WHITE BLOOD COUNT 3.5 10^3/ul (4.5-11.0)
[2018-07-12 18:12] LABS: INR 1.14; PARTIAL THROMBOPLASTIN TIME 30.7 Seconds (25.1-36.5)
[2018-07-12 18:13] LABS: ALB/GLOB RATIO 1.4 (1.1-1.8); ALBUMIN 3.5 g/dL (3.0-4.8); ALT/SGPT 36 U/L (7-56); AST/SGOT 33 U/L (17-59); BLOOD UREA NITROGEN 31 mg/dL (7-21); CALCIUM 8.5 mg/dL (8.4-10.5); GFR NON-AFRICAN AMERICAN 58; LIPASE 66 U/L (23-300)
--- NOTE | 2018-07-12 18:22 | RAD ---
Date of service: 07/12/2018 HISTORY: Gastrointestinal bleeding. COMPARISON: 03/13/2018 FINDINGS: LUNGS: Interval improvement in right lower lobe infiltrate. PLEURA: No significant pleural effusion identified, no pneumothorax apparent. CARDIOVASCULAR: Cardiomegaly/pulmonary vascular congestion. OSSEOUS STRUCTURES: No significant abnormalities. VISUALIZED UPPER ABDOMEN: Normal. OTHER FINDINGS: None. IMPRESSION: Improving right lower lobe infiltrate. Cardiomegaly/CHF progressive compared to the prior study.
[2018-07-12 18:23] LABS: TROPONIN I 0.03 ng/mL
[2018-07-12] MEDS: Metoprolol Succinate 25 mg XL Tab PO SCH (19:34)
--- NOTE | 2018-07-12 20:41 | CARD ---
APPROVED REPORT Date of service: 07/12/2018 EKG Measurement Heart [id number] <Conclusion> Atrial fibrillation Rightward axis Abnormal ECG
[2018-07-12 22:39] LABS: BASO # 0.01 K/mm3 (0.0-2.0); BASO % 0.2 % (0.0-3.0); EOS # 0.1 (0.0-0.7); GRAN # 2.66 (1.4-6.5); GRAN % 64.8 % (50.0-68.0); HEMOGLOBIN 8.4 g/dL (14.0-18.0); LYMPH % 23.2 % (22.0-35.0); MEAN CELL VOLUME 97.5 fl (80.0-105.0); MEAN CORPUSCULAR HEMOGLOBIN 30.3 pg (25.0-35.0); MEAN CORPUSCULAR HGB CONC 31.1 g/dl (31.0-37.0); MEAN PLATELET VOLUME 7.7 fl (7.0-11.0); MONO # 0.4 (0.1-0.6); MONO % 9.8 % (1.0-6.0); RBC 2.77 10^6/uL (3.5-6.1); RED CELL DISTRIBUTION WIDTH 16.5 % (11.5-14.5); WHITE BLOOD COUNT 4.1 10^3/ul (4.5-11.0)
[2018-07-13 03:56] LABS: BASO # 0.02 K/mm3 (0.0-2.0); BASO % 0.3 % (0.0-3.0); EOS # 0.1 (0.0-0.7); EOS % 0.9 % (1.5-5.0); GRAN # 4.52 (1.4-6.5); HEMOGLOBIN 8.8 g/dL (14.0-18.0); LYMPH # 0.5 (1.2-3.4); LYMPH % 8.4 % (22.0-35.0); MEAN CELL VOLUME 97.2 fl (80.0-105.0); MEAN CORPUSCULAR HEMOGLOBIN 31.2 pg (25.0-35.0); MEAN CORPUSCULAR HGB CONC 32.1 g/dl (31.0-37.0); MEAN PLATELET VOLUME 8.1 fl (7.0-11.0); MONO # 0.7 (0.1-0.6); MONO % 12.4 % (1.0-6.0); RBC 2.82 10^6/uL (3.5-6.1); RED CELL DISTRIBUTION WIDTH 16.6 % (11.5-14.5); WHITE BLOOD COUNT 5.8 10^3/ul (4.5-11.0)
[2018-07-13 03:59] LABS: INR 1.09; PARTIAL THROMBOPLASTIN TIME 29.1 Seconds (25.1-36.5); PROTHROMBIN TIME 12.5 SECONDS (9.4-12.5)
[2018-07-13 04:01] LABS: ALB/GLOB RATIO 1.5 (1.1-1.8); ALBUMIN 3.7 g/dL (3.0-4.8); ALT/SGPT 32 U/L (7-56); AST/SGOT 37 U/L (17-59); BLOOD UREA NITROGEN 26 mg/dL (7-21); CALCIUM 8.9 mg/dL (8.4-10.5); GFR NON-AFRICAN AMERICAN > 60
--- NOTE | 2018-07-13 04:31 | CP.PCM.PCO ---
Physician Communication Note - Physician Communication Note Physician Communication Note: +Hemoptysis/HgB8.8/[id number] PO now(4:30)
[2018-07-13] MEDS ORDERED: diltiaZEM 180 mg/24 Hours CD Cap PO STA (04:37)
--- NOTE | 2018-07-13 05:40 | CP.PCM.CON ---
<Prosper Cardenas - Last Filed: 07/13/18 05:36> History of Present Illness - History of Present Illness History of Present Illness: General Surgery Consult Note for Dr. Du. This is an 82M with a PMH of HTN, Stented AAA, Seizures, GERD, Zenker's Diverticulum, AFib on eliquis, and Rectal CA on eloquis who presented due to bleeding from his stoma. He reports that he was at home tending to his stoma when he noticed a purple spot that looked like a clot. He picked at it and it started bleeding. When he came t the hospital he took off is ostomy appliance and after he was cleaned he saw that the bleeding was stopped. PMH: Rectal cancer s/p resection, AAA, HTN, Seizures, GERD, Zenker's Diverticulum, AFib on eliquis PSH: Resection of rectal cancer with colostomy in 2001, appendectomy, balloon angioplasty without stents in 1990 Allergy:NKDA Social: Smoked for 40 years about 4 packs per day and quit in 1990, Denies EtOH or illicit drug use Review of Systems - Review of Systems All systems: reviewed and no additional remarkable complaints except (Bleepio) Past Patient History - Infectious Disease Hx of Infectious Diseases: None - Tetanus Immunizations Tetanus Immunization: Up to Date - Past Social History Smoking Status: Former Smoker - CARDIAC Hx Cardiac Disorders: Yes Hx Cardia Arrhythmia: Yes (afib, arythmia) Hx Circulatory Problems: Yes Hx Congestive Heart Failure: Yes Hx Hypertension: Yes Hx Pacemaker: No Hx Peripheral Edema: Yes (LE b/l +1, pitting and discolorations) Other/Comment: angioplasty - PULMONARY Hx Respiratory Disorders: Yes (USED TO SMOKE CIGARETTES.QUIT 1990) - NEUROLOGICAL Hx Seizures: Yes Hx Transient Ischemic Attacks (TIA): Yes (no deficits) - HEENT Hx HEENT Problems: Yes ([place] R ear, does not use hearing aid) Other/Comment: uses eyeglasses,uses dentures - RENAL Hx Chronic Kidney Disease: No - ENDOCRINE/METABOLIC Hx Endocrine Disorders: No - HEMATOLOGICAL/ONCOLOGICAL Hx Blood Disorders: Yes Hx Cancer: Yes (RECTAL CA) Other/Comment: 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, pt had resection for rectal ca no chemo no radiation has colostomy was dx in 2001 - INTEGUMENTARY Hx Dermatological Problems: Yes Hx Melanoma: Yes (RIGHT PINNA,HEAD) - MUSCULOSKELETAL/RHEUMATOLOGICAL Hx Falls: Yes (past) - GASTROINTESTINAL Hx Gastrointestinal Disorders: Yes Hx Colostomy: Yes (2001/empties 2x's a day brown stool) Hx Gastroesophageal Reflux: Yes HX Swallowing Problems: Yes Other/Comment: rectal cancer, dysphagia due to foreign body chicken bone removed by dr boo and dr wilson as per pt - GENITOURINARY/GYNECOLOGICAL Hx Genitourinary Disorders: Yes Other/Comment: 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 c/o urinary frequency, retention, difficulty initiating stream - PSYCHIATRIC Hx Psychophysiologic Disorder: Yes Hx Anxiety: Yes Hx Substance Use: No - SURGICAL HISTORY Hx Appendectomy: Yes Other/Comment: colostomy due to rectal ca, angioplasty - ANESTHESIA Hx Anesthesia Reactions: No Hx Malignant Hyperthermia: No Meds Allergies/Adverse Reactions: Allergies Allergy/AdvReac Type Severity Reaction Status Date / Time No Known Allergies Allergy Verified 07/12/18 16:57 - Medications Medications: Current Medications Atorvastatin Calcium (Lipitor) 10 mg PO DIN [facility] Last Admin: 07/12/18 19:34 Dose: 10 mg Diltiazem HCl (Cardizem Cd) 360 mg PO DAILY [facility] Furosemide (Lasix) 40 mg PO DAILY [facility] Metoprolol Succinate (Toprol Xl) 25 mg PO BID [facility] Last Admin: 07/12/18 19:34 Dose: 25 mg Physical Exam - Constitutional Appears: Non-toxic, No Acute Distress - Head Exam Head Exam: ATRAUMATIC, NORMOCEPHALIC - Eye Exam Eye Exam: EOMI - ENT Exam ENT Exam: Mucous Membranes Moist - Respiratory Exam Respiratory Exam: NORMAL BREATHING PATTERN - Cardiovascular Exam Cardiovascular Exam: +S1, +S2 - GI/Abdominal Exam GI & Abdominal Exam: Soft. absent: Distended, Firm, Guarding, Tenderness Additional comments: Stoma with visible clot, patent, with parastomal hernia - Neurological Exam Neurological exam: Alert, Oriented x3 - Psychiatric Exam Psychiatric exam: Normal Affect, Normal Mood - Skin Skin Exam: Dry, Intact Results - Vital Signs Recent Vital Signs: Last Vital Signs Temp 98.2 F 07/13/18 00:01 Pulse 125 H 07/13/18 05:05 Resp 20 07/13/18 00:01 BP 139/75 07/13/18 05:05 Pulse Ox 94 L 10/02/18 00:01 - Labs Result Diagrams: 07/13/18 03:40 07/13/18 03:40 Labs: Laboratory Results - last 24 hr 07/12/18 07/12/18 07/12/18 17:52 17:52 17:52 WBC 3.5 L D RBC 2.67 L Hgb 8.2 L D Hct 26.0 L MCV 97.4 D MCH 30.7 MCHC 31.5 RDW 16.6 H Plt Count 63 L MPV 8.4 Gran % 77.4 H Lymph % (Auto) 9.7 L [place] % (Auto) 11.7 H Eos % (Auto) 0.9 L Baso % (Auto) 0.3 Gran # 2.70 Lymph # (Auto) 0.3 L [place] # (Auto) 0.4 Eos # (Auto) 0.0 Baso # (Auto) 0.01 PT 13.0 H INR 1.14 APTT 30.7 Sodium 139 Potassium 4.8 Chloride 106 Carbon Dioxide 26 Anion Gap 11 BUN 31 H Creatinine 1.2 Est GFR ( Amer) > 60 Est GFR (Non-Af Amer) 58 Random Glucose 110 Calcium 8.5 Total Bilirubin 0.6 AST 33 ALT 36 Alkaline Phosphatase 101 Lactate Dehydrogenase 546 Total Creatine Kinase 35 Troponin I 0.03 D Total Protein 6.1 Albumin 3.5 Globulin 2.6 Albumin/Globulin Ratio 1.4 Lipase 66 Blood Type Antibody Screen Crossmatch BBK History Checked 07/12/18 07/12/18 07/13/18 17:52 22:35 03:40 WBC 4.1 L RBC 2.77 L Hgb 8.4 L Hct 27.0 L MCV 97.5 MCH 30.3 MCHC 31.1 RDW 16.5 H Plt Count 57 L MPV 7.7 Gran % 64.8 Lymph % (Auto) 23.2 [place] % (Auto) 9.8 H Eos % (Auto) 2.0 Baso % (Auto) 0.2 Gran # 2.66 Lymph # (Auto) 1.0 L [place] # (Auto) 0.4 Eos # (Auto) 0.1 Baso # (Auto) 0.01 PT INR APTT Sodium 140 Potassium 4.4 Chloride 106 Carbon Dioxide 27 Anion Gap 11 BUN 26 H Creatinine 1.1 Est GFR ( Amer) > 60 Est GFR (Non-Af Amer) > 60 Random Glucose 127 H Calcium 8.9 Total Bilirubin 0.7 AST 37 ALT 32 Alkaline Phosphatase 110 Lactate Dehydrogenase Total Creatine Kinase Troponin I Total Protein 6.1 Albumin 3.7 Globulin 2.5 Albumin/Globulin Ratio 1.5 Lipase Blood Type O POSITIVE Antibody Screen Negative Crossmatch See Detail BBK History Checked Patient has bt 07/13/18 07/13/18 03:40 03:40 WBC 5.8 D RBC 2.82 L Hgb 8.8 L Hct 27.4 L MCV 97.2 MCH 31.2 MCHC 32.1 RDW 16.6 H Plt Count 59 L MPV 8.1 Gran % 78.0 H Lymph % (Auto) 8.4 L [place] % (Auto) 12.4 H Eos % (Auto) 0.9 L Baso % (Auto) 0.3 Gran # 4.52 Lymph # (Auto) 0.5 L [place] # (Auto) 0.7 H Eos # (Auto) 0.1 Baso # (Auto) 0.02 PT 12.5 INR 1.09 APTT 29.1 Sodium Potassium Chloride Carbon Dioxide Anion Gap BUN Creatinine Est GFR ( Amer) Est GFR (Non-Af Amer) Random Glucose Calcium Total Bilirubin AST ALT Alkaline Phosphatase Lactate Dehydrogenase Total Creatine Kinase Troponin I Total Protein Albumin Globulin Albumin/Globulin Ratio Lipase Blood Type Antibody Screen Crossmatch BBK History Checked Assessment & Plan - Assessment and Plan (Free Text) Assessment: This is an 82M with bleeding from his stoma Hold Eloquis Trend h/h Rule out other sources of occult bleeding D/W Dr. Florian Cardenas PGY3 <Rocael Du A - Last Filed: 07/17/18 20:32> Meds - Medications Medications: Current Medications Atorvastatin Calcium (Lipitor) 10 mg PO DIN [facility] Last Admin: 07/17/18 18:15 Dose: 10 mg Diltiazem HCl (Cardizem Cd) 360 mg PO DAILY [facility] Last Admin: 07/17/18 09:54 Dose: 360 mg Enoxaparin Sodium (Lovenox) 60 mg SC Q12H [facility]; Protocol Last Admin: 07/17/18 12:25 Dose: 60 mg Furosemide (Lasix) 40 mg PO 0800,1400 [facility] Stop: 07/17/18 23:59 Last Admin: 07/17/18 14:31 Dose: 40 mg Furosemide (Lasix) 40 mg PO DAILY [facility] Cefepime HCl (Maxipime 1gm) 1 gm in 100 mls @ 100 mls/hr IVPB Q12 [facility]; Protocol Last Admin: 07/17/18 09:53 Dose: 100 mls/hr Doxycycline Hyclate 100 mg/ (Sodium Chloride) 100 mls @ 100 mls/hr IVPB Q12 [facility]; Protocol Last Admin: 07/17/18 09:53 Dose: 100 mls/hr Sodium Chloride (Sodium Chloride 0.9%) 1,000 mls @ 100 mls/hr IV .Q10H [facility] Last Admin: 07/17/18 17:43 Dose: 100 mls/hr Levalbuterol HCl (Xopenex) 0.63 mg IH [id number] [facility] Last Admin: 07/17/18 19:32 Dose: 0.63 mg Metoprolol Succinate (Toprol Xl) 25 mg PO BID [facility] Last Admin: 07/17/18 17:44 Dose: 25 mg Pantoprazole Sodium (Protonix Ec Tab) 40 mg PO DAILY [facility] Last Admin: 07/17/18 09:54 Dose: 40 mg Phenytoin Sodium (Dilantin) 100 mg PO TID [facility] Last Admin: 07/17/18 17:43 Dose: 100 mg Results - Vital Signs Recent Vital Signs: Last Vital Signs Temp 98 F 07/17/18 18:00 Pulse 92 H 07/17/18 18:00 Resp 20 07/17/18 18:00 BP 124/81 07/17/18 18:00 Pulse Ox 90 L 07/17/18 18:00 - Labs Result Diagrams: 07/17/18 06:00 07/17/18 06:00 Labs: Laboratory Results - last 24 hr 07/16/18 07/17/18 07/17/18 06:45 06:00 06:00 WBC 4.1 L RBC 2.64 L Hgb 8.4 L Hct 25.5 L MCV 96.6 MCH 31.8 MCHC 32.9 RDW 16.5 H Plt Count 59 L MPV 8.9 Sodium 139 Potassium 4.5 Chloride 104 Carbon Dioxide 29 Anion Gap 10 BUN 28 H Creatinine 1.1 Est GFR ( Amer) > 60 Est GFR (Non-Af Amer) > 60 Random Glucose 98 Calcium 8.4 HIV 1&2 Ag/Ab, 4th Gen Nonreactive Assessment & Plan - Assessment and Plan (Free Text) Plan: Dx Stoma bleeding on Eliquis/CHR/Rectal ca/Stoma hernia D/C Eliquis-Cl liquids/Serial exam H&H This consult done under my dierect supervision 'Kiko Du MD FACS - Date & Time Date: 07/13/18 Time: 05:40
--- NOTE | 2018-07-13 05:49 | CP.PCM.PN ---
Subjective - Date & Time of Evaluation Date of Evaluation: 07/13/18 Time of Evaluation: 04:00 - Subjective Subjective: Pt was coughing up blood into a cup. Estimated to be about 60ml, bright red. Went down to speak with pt, he states he felt something in his throat and bent over to cough it up. Pt has been taking Eliquis, last dose yesterday. Pt was adm itted for beata blood in his colostomy bag. Pt vitals were HR120's atrial fib, 140/80. O2 sat dropped into the 80's, Pt placed on 5L nasal cannula, and O2sat returned to the low 90's. Pt was able to speak in full sentences with out any SOB. Pt denied any chest pain, mental status change, dizziness, or visual changes. 5am, pt on 5L O2 nasal cannula, pulse ox is 85, pt asymptomatic, easily awakene d, no respiratory distress. Upgrade pt to facemask, 6L NS for persistent hypoxia. Objective - Vital Signs/Intake and Output Vital Signs (last 24 hours): Temp Pulse Resp BP Pulse Ox 98.2 F 125 H 20 139/75 94 L 07/13/18 00:01 07/13/18 05:05 07/13/18 00:01 07/13/18 05:05 07/13/18 00:01 Intake and Output: 07/12/18 07/13/18 18:59 06:59 Intake Total 540 Output Total 200 Balance 340 - Medications Medications: Current Medications Atorvastatin Calcium (Lipitor) 10 mg PO DIN [facility] Last Admin: 07/12/18 19:34 Dose: 10 mg Diltiazem HCl (Cardizem Cd) 360 mg PO DAILY [facility] Furosemide (Lasix) 40 mg PO DAILY [facility] Metoprolol Succinate (Toprol Xl) 25 mg PO BID [facility] Last Admin: 07/12/18 19:34 Dose: 25 mg - Labs Labs: 07/13/18 03:40 07/13/18 03:40 PT 12.5 SECONDS (9.4-12.5) 07/13/18 03:40 INR 1.09 07/13/18 03:40 APTT 29.1 Seconds (25.1-36.5) 07/13/18 03:40 - Constitutional Appears: No Acute Distress - Head Exam Head Exam: ATRAUMATIC, NORMOCEPHALIC - Eye Exam Eye Exam: EOMI Additional comments: conjunctiva pale - ENT Exam ENT Exam: Mucous Membranes Moist - Respiratory Exam Respiratory Exam: Wheezes, NORMAL BREATHING PATTERN - Cardiovascular Exam Cardiovascular Exam: Tachycardia, +S1, +S2 - GI/Abdominal Exam GI & Abdominal Exam: Soft, Normal Bowel Sounds Additional comments: colostomy bag in place - Extremities Exam Extremities Exam: Full ROM - Neurological Exam Neurological Exam: Alert, Awake, CN II-XII Intact, Oriented x3 Neuro motor strength exam: Left Upper Extremity: 5, Right Upper Extremity: 5, Left Lower Extremity: 5, Right Lower Extremity: 5
--- NOTE | 2018-07-13 05:52 | HP ---
HISTORY OF PRESENT ILLNESS: The patient is 82-year-old, known to me from multiple previous admissions. The patient has a history of rectal CA. He had total colectomy done and had colostomy multiple years ago by Dr. Du. The patient was recently diagnosed with atrial fibrillation and has been on Eliquis. The patient does have a history of thrombocytopenia and earlier this year he had abdominal aortic aneurysm repaired also. Had stent placed. The patient states today he went to bathroom to change his colostomy bag in which he saw blood clot in the bag, so he decided to come to emergency room for evaluation. Denies any abdominal pain. No history of nausea or vomiting. No chest pain or shortness of breath. No history of recent alcohol use. PAST MEDICAL HISTORY: Significant for: 1. Aortic stent placement. 2. Seizure disorder. 3. Hypertension. 4. Hyperlipidemia. 5. Thrombocytopenia. 6. Atrial fibrillation, on Eliquis. 7. Status post colostomy. ALLERGIES: HE IS NOT ALLERGIC TO ANY MEDICATION. MEDICATIONS AT HOME: He is on diltiazem 360 daily, Dilantin 100 mg three times a day, metoprolol 25 twice a day, Lasix 40 daily, Lipitor 20 mg daily, aspirin 81 daily, Eliquis 5 mg twice a day. SOCIAL HISTORY: He lives alone. He has a daughter who lives far from here. He used to drink, but quit in 1990. He also used to smoke heavy, but quit in 1990. REVIEW OF SYSTEMS: Not significant except feeling weak and tired. PHYSICAL EXAMINATION GENERAL: He is awake, alert, oriented, communicative. VITAL SIGNS: He is afebrile, pulse 91, respiration 18, blood pressure 160/100. LUNGS: Bilateral fair airflow. Diffusely decreased breath sounds. HEART: S1, S2 audible. ABDOMEN: Soft, nontender. No rebound, no guarding. NEUROLOGIC: The patient has colostomy in place with some blood-tinged material. EXTREMITIES: Bilateral legs, no edema. LABORATORY DATA: WBC 3.5, hemoglobin 8.2, hematocrit 26, platelet of 63. PT 13, INR 1.14. Chemistry: Sodium 139, potassium 4.8, chloride 106, CO2 of 26, BUN 31, creatinine 1.2, blood sugar of 110. Had x-ray chest done that shows improving right lower lobe infiltrate. ASSESSMENT: 1. Bleeding in colostomy, probably secondary to Eliquis and thrombocytopenia. 2. Chronic atrial fibrillation. 3. Hypertension. 4. Hyperlipidemia. 5. History of rectal cancer, status post colostomy. 6. Seizure disorder. 7. Recent aortic stent placement. PLAN: We will hold Ella for a day, monitor his H and H, keep him on clear liquid diet. We will monitor his CBC and CMP in a.m. I have advised the patient to have colonoscopy done by Dr. Hinton, but he was reluctant. We will get opinion from Dr. Hinton and Dr. Du. Tri Fleming MD
[2018-07-13 07:00] LABS: EOS % 0.2 % (1.5-5.0); GRAN # 5.28 (1.4-6.5); GRAN % 86.2 % (50.0-68.0); HEMOGLOBIN 8.2 g/dL (14.0-18.0); LYMPH # 0.5 (1.2-3.4); LYMPH % 7.7 % (22.0-35.0); MEAN CORPUSCULAR HEMOGLOBIN 30.8 pg (25.0-35.0); MEAN CORPUSCULAR HGB CONC 31.8 g/dl (31.0-37.0); MEAN PLATELET VOLUME 7.6 fl (7.0-11.0); MONO # 0.4 (0.1-0.6); MONO % 5.9 % (1.0-6.0); RBC 2.66 10^6/uL (3.5-6.1); RED CELL DISTRIBUTION WIDTH 16.7 % (11.5-14.5); WHITE BLOOD COUNT 6.1 10^3/ul (4.5-11.0)
[2018-07-13 07:22] LABS: PLATELET COUNT 49 10^3/uL (120.0-450.0)
[2018-07-13 07:24] LABS: TROPONIN I 0.06 ng/mL
--- NOTE | 2018-07-13 08:10 | RAD ---
Date of service: 07/13/2018 HISTORY: hemoptysis COMPARISON: 07/12/2018 FINDINGS: LUNGS: There is a new diffuse infiltrate in the right lung. The left lung remains clear PLEURA: No significant pleural effusion identified, no pneumothorax apparent. CARDIOVASCULAR: Mild cardiomegaly OSSEOUS STRUCTURES: No significant abnormalities. VISUALIZED UPPER ABDOMEN: Normal. OTHER FINDINGS: None. IMPRESSION: There is a new diffuse infiltrate in the right lung
--- NOTE | 2018-07-13 08:17 | CP.PCM.CON ---
<Rio Quiroz - Last Filed: 07/13/18 17:32> History of Present Illness - History of Present Illness History of Present Illness: PGY-4 GI Fellow Consult Note Pt is an 82 yo WM with h/o rectal CA s/p resection with colostomy, Zenkers, GERD, AFib on apixaban, AAA, HTN, Seizures presenting with complaint of bleeding from stoma. He states on 07/12/18 he was changing his ostomy bag when he noticed some bright red blood from it. He states that he saw a spot on ostomy which bled some, but by the time of inspection in the ED, the bleeding had stopped and there was only a small clot on the surface of the ostomy. He states that output is normally not bloody. He continues to take apixaban and daily ASA 81 mg. He denies any hematemesis, melena, Abd Pain, Melena nor SOB. Overnight, he states that he had not had any further bloody output, but did report a 1x episode of hemoptysis. Though he states he was not short of breath, his O2 sats were reportedly in mid to upper 80s [address] on 3-4 L NC O2. 12 point ROS negative other than stated above MHx: See above SurgHx: Resection of rectal cancer with colostomy in 2001, appendectomy, balloon angioplasty w/o stents in 1990 Endo: Only EGD on file 03/01/18 with Zenkers, Gastritis and food in esophagus (no biopsies due to AC) Meds: Reviewed in MAR FamHx: Denied GI probs Social: 160 pack years and quit in 1990, Denies EtOH or illicit drug use Allergy: NKDA Past Patient History - Infectious Disease Hx of Infectious Diseases: None - Tetanus Immunizations Tetanus Immunization: Up to Date - Past Social History Smoking Status: Former Smoker - CARDIAC Hx Cardiac Disorders: Yes Hx Cardia Arrhythmia: Yes (afib, arythmia) Hx Circulatory Problems: Yes Hx Congestive Heart Failure: Yes Hx Hypertension: Yes Hx Pacemaker: No Hx Peripheral Edema: Yes (LE b/l +1, pitting and discolorations) Other/Comment: angioplasty - PULMONARY Hx Respiratory Disorders: Yes (USED TO SMOKE CIGARETTES.QUIT 1990) - NEUROLOGICAL Hx Seizures: Yes Hx Transient Ischemic Attacks (TIA): Yes (no deficits) - HEENT Hx HEENT Problems: Yes ([place] R ear, does not use hearing aid) Other/Comment: uses eyeglasses,uses dentures - RENAL Hx Chronic Kidney Disease: No - ENDOCRINE/METABOLIC Hx Endocrine Disorders: No - HEMATOLOGICAL/ONCOLOGICAL Hx Blood Disorders: Yes Hx Cancer: Yes (RECTAL CA) Other/Comment: 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, pt had resection for rectal ca no chemo no radiation has colostomy was dx in 2001 - INTEGUMENTARY Hx Dermatological Problems: Yes Hx Melanoma: Yes (RIGHT PINNA,HEAD) - MUSCULOSKELETAL/RHEUMATOLOGICAL Hx Falls: Yes (past) - GASTROINTESTINAL Hx Gastrointestinal Disorders: Yes Hx Colostomy: Yes (2001/empties 2x's a day brown stool) Hx Gastroesophageal Reflux: Yes HX Swallowing Problems: Yes Other/Comment: rectal cancer, dysphagia due to foreign body chicken bone removed by dr boo and dr wilson as per pt - GENITOURINARY/GYNECOLOGICAL Hx Genitourinary Disorders: Yes Other/Comment: 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 c/o urinary frequency, retention, difficulty initiating stream - PSYCHIATRIC Hx Psychophysiologic Disorder: Yes Hx Anxiety: Yes Hx Substance Use: No - SURGICAL HISTORY Hx Appendectomy: Yes Other/Comment: colostomy due to rectal ca, angioplasty - ANESTHESIA Hx Anesthesia Reactions: No Hx Malignant Hyperthermia: No Meds Allergies/Adverse Reactions: Allergies Allergy/AdvReac Type Severity Reaction Status Date / Time No Known Allergies Allergy Verified 07/12/18 16:57 - Medications Medications: Current Medications Atorvastatin Calcium (Lipitor) 10 mg PO DIN [facility] Last Admin: 07/12/18 19:34 Dose: 10 mg Diltiazem HCl (Cardizem Cd) 360 mg PO DAILY [facility] Furosemide (Lasix) 40 mg PO DAILY [facility] Metoprolol Succinate (Toprol Xl) 25 mg PO BID [facility] Last Admin: 07/12/18 19:34 Dose: 25 mg Physical Exam - Constitutional Appears: Well, Non-toxic, No Acute Distress - Head Exam Head Exam: ATRAUMATIC, NORMAL INSPECTION - Eye Exam Eye Exam: EOMI. absent: Conjunctival injection, Scleral icterus - ENT Exam ENT Exam: Mucous Membranes Moist. absent: Mucous Membranes Dry, Normal External Ear Exam - Respiratory Exam Respiratory Exam: Clear to Auscultation Bilateral, NORMAL BREATHING PATTERN. absent: Accessory Muscle Use - Cardiovascular Exam Cardiovascular Exam: REGULAR RHYTHM, RRR - GI/Abdominal Exam GI & Abdominal Exam: Normal Bowel Sounds, Soft, Tenderness. absent: Bruit, Diminished Bowel Sounds, Distended, Firm, Guarding, Hernia, Organomegaly, Pulsatile Mass, Rebound, Rigid Additional comments: LLQ colostomy stoma pink wih small dark red clot on lumen - Rectal Exam Rectal Exam: Deferred - Extremities Exam Extremities exam: Positive for: normal inspection, pedal edema (trace) - Neurological Exam Neurological exam: Alert, CN II-XII Intact, Oriented x3 - Psychiatric Exam Psychiatric exam: Normal Affect, Normal Mood - Skin Skin Exam: Normal Color, Warm Results - Vital Signs Recent Vital Signs: Last Vital Signs Temp 98.8 F 07/13/18 06:00 Pulse 149 H 07/13/18 06:00 Resp 20 07/13/18 06:00 BP 139/75 07/13/18 06:00 Pulse Ox 90 L 07/13/18 06:00 - Labs Result Diagrams: 07/13/18 06:30 07/13/18 03:40 Labs: Laboratory Results - last 24 hr 07/12/18 07/12/18 07/12/18 17:52 17:52 17:52 WBC 3.5 L D RBC 2.67 L Hgb 8.2 L D Hct 26.0 L MCV 97.4 D MCH 30.7 MCHC 31.5 RDW 16.6 H Plt Count 63 L MPV 8.4 Gran % 77.4 H Lymph % (Auto) 9.7 L [place] % (Auto) 11.7 H Eos % (Auto) 0.9 L Baso % (Auto) 0.3 Gran # 2.70 Lymph # (Auto) 0.3 L [place] # (Auto) 0.4 Eos # (Auto) 0.0 Baso # (Auto) 0.01 PT 13.0 H INR 1.14 APTT 30.7 Sodium 139 Potassium 4.8 Chloride 106 Carbon Dioxide 26 Anion Gap 11 BUN 31 H Creatinine 1.2 Est GFR ( Amer) > 60 Est GFR (Non-Af Amer) 58 Random Glucose 110 Calcium 8.5 Total Bilirubin 0.6 AST 33 ALT 36 Alkaline Phosphatase 101 Lactate Dehydrogenase 546 Total Creatine Kinase 35 Troponin I 0.03 D NT-Pro-B Natriuret Pep Total Protein 6.1 Albumin 3.5 Globulin 2.6 Albumin/Globulin Ratio 1.4 Lipase 66 Blood Type Antibody Screen Crossmatch BBK History Checked 07/12/18 07/12/18 07/13/18 17:52 22:35 03:40 WBC 4.1 L RBC 2.77 L Hgb 8.4 L Hct 27.0 L MCV 97.5 MCH 30.3 MCHC 31.1 RDW 16.5 H Plt Count 57 L MPV 7.7 Gran % 64.8 Lymph % (Auto) 23.2 [place] % (Auto) 9.8 H Eos % (Auto) 2.0 Baso % (Auto) 0.2 Gran # 2.66 Lymph # (Auto) 1.0 L [place] # (Auto) 0.4 Eos # (Auto) 0.1 Baso # (Auto) 0.01 PT INR APTT Sodium 140 Potassium 4.4 Chloride 106 Carbon Dioxide 27 Anion Gap 11 BUN 26 H Creatinine 1.1 Est GFR ( Amer) > 60 Est GFR (Non-Af Amer) > 60 Random Glucose 127 H Calcium 8.9 Total Bilirubin 0.7 AST 37 ALT 32 Alkaline Phosphatase 110 Lactate Dehydrogenase Total Creatine Kinase Troponin I NT-Pro-B Natriuret Pep Total Protein 6.1 Albumin 3.7 Globulin 2.5 Albumin/Globulin Ratio 1.5 Lipase Blood Type O POSITIVE Antibody Screen Negative Crossmatch See Detail BBK History Checked Patient has bt 07/13/18 07/13/18 07/13/18 03:40 03:40 06:30 WBC 5.8 D 6.1 RBC 2.82 L 2.66 L Hgb 8.8 L 8.2 L Hct 27.4 L 25.8 L MCV 97.2 97.0 MCH 31.2 30.8 MCHC 32.1 31.8 RDW 16.6 H 16.7 H Plt Count 59 L 49 L* MPV 8.1 7.6 Gran % 78.0 H 86.2 H Lymph % (Auto) 8.4 L 7.7 L [place] % (Auto) 12.4 H 5.9 Eos % (Auto) 0.9 L 0.2 L Baso % (Auto) 0.3 0.0 Gran # 4.52 5.28 Lymph # (Auto) 0.5 L 0.5 L [place] # (Auto) 0.7 H 0.4 Eos # (Auto) 0.1 0.0 Baso # (Auto) 0.02 0.00 PT 12.5 INR 1.09 APTT 29.1 Sodium Potassium Chloride Carbon Dioxide Anion Gap BUN Creatinine Est GFR ( Amer) Est GFR (Non-Af Amer) Random Glucose Calcium Total Bilirubin AST ALT Alkaline Phosphatase Lactate Dehydrogenase Total Creatine Kinase Troponin I NT-Pro-B Natriuret Pep Total Protein Albumin Globulin Albumin/Globulin Ratio Lipase Blood Type Antibody Screen Crossmatch BBK History Checked 07/13/18 06:30 WBC RBC Hgb Hct MCV MCH MCHC RDW Plt Count MPV Gran % Lymph % (Auto) [place] % (Auto) Eos % (Auto) Baso % (Auto) Gran # Lymph # (Auto) [place] # (Auto) Eos # (Auto) Baso # (Auto) PT INR APTT Sodium Potassium Chloride Carbon Dioxide Anion Gap BUN Creatinine Est GFR ( Amer) Est GFR (Non-Af Amer) Random Glucose Calcium Total Bilirubin AST ALT Alkaline Phosphatase Lactate Dehydrogenase Total Creatine Kinase Troponin I 0.06 D NT-Pro-B Natriuret Pep 4890 H Total Protein Albumin Globulin Albumin/Globulin Ratio Lipase Blood Type Antibody Screen Crossmatch BBK History Checked Assessment & Plan - Assessment and Plan (Free Text) Assessment: 82 yo WM with h/o rectal CA s/p resection with colostomy presenting with bleeding from stoma. # Lower GI Bleed: From pts colostomy site with risk factors of apixaban use and ASA 81 mg. Hgb not sig down from baseline and hemodynamically stable. There was a small clot on exam that could have been the source of bleed. Reassuringly, not further bleeding noted since admission other than some hemo ptysis. Plan: - Defer timing of apixaban resumption to surgical team - Monitor H&H - Recommended OP Colonoscopy, pt still deciding to get done or not. Thank you for the consult. Will cont to follow. Pt seen and examined with Dr. Hinton; see attestation for further rec s/changes. <Samson Hinton V - Last Filed: 07/14/18 00:07> Meds - Medications Medications: Current Medications Atorvastatin Calcium (Lipitor) 10 mg PO DIN [facility] Last Admin: 07/13/18 17:15 Dose: 10 mg Diltiazem HCl (Cardizem Cd) 360 mg PO DAILY [facility] Last Admin: 07/13/18 10:44 Dose: Not Given Furosemide (Lasix) 40 mg IVP 0800,1400 [facility] Last Admin: 07/13/18 14:20 Dose: 40 mg Ceftriaxone Sodium (Rocephin 1 Gram Ivpb) 1 gm in 100 mls @ 100 mls/hr IVPB DAILY [facility]; Protocol Last Admin: 07/13/18 10:02 Dose: 100 mls/hr Levalbuterol HCl (Xopenex) 0.63 mg IH I0YCITE [facility] Last Admin: 07/13/18 20:03 Dose: 0.63 mg Metoprolol Succinate (Toprol Xl) 25 mg PO BID [facility] Last Admin: 07/13/18 17:15 Dose: 25 mg Pantoprazole Sodium (Protonix Ec Tab) 40 mg PO DAILY [facility] Last Admin: 07/13/18 10:00 Dose: 40 mg Phenytoin Sodium (Dilantin) 100 mg PO TID [facility] Last Admin: 07/13/18 17:15 Dose: 100 mg Results - Vital Signs Recent Vital Signs: Last Vital Signs Temp 98.3 F 07/13/18 17:50 Pulse 92 H 07/13/18 22:00 Resp 19 07/13/18 17:50 BP 135/70 07/13/18 17:50 Pulse Ox 90 L 07/13/18 06:00 - Labs Result Diagrams: 07/13/18 06:30 07/13/18 03:40 Labs: Laboratory Results - last 24 hr 07/13/18 07/13/18 07/13/18 03:40 03:40 03:40 WBC 5.8 D RBC 2.82 L Hgb 8.8 L Hct 27.4 L MCV 97.2 MCH 31.2 MCHC 32.1 RDW 16.6 H Plt Count 59 L MPV 8.1 Gran % 78.0 H Lymph % (Auto) 8.4 L [place] % (Auto) 12.4 H Eos % (Auto) 0.9 L Baso % (Auto) 0.3 Gran # 4.52 Lymph # (Auto) 0.5 L [place] # (Auto) 0.7 H Eos # (Auto) 0.1 Baso # (Auto) 0.02 PT 12.5 INR 1.09 APTT 29.1 Sodium 140 Potassium 4.4 Chloride 106 Carbon Dioxide 27 Anion Gap 11 BUN 26 H Creatinine 1.1 Est GFR ( Amer) > 60 Est GFR (Non-Af Amer) > 60 Random Glucose 127 H Calcium 8.9 Total Bilirubin 0.7 AST 37 ALT 32 Alkaline Phosphatase 110 Troponin I NT-Pro-B Natriuret Pep Total Protein 6.1 Albumin 3.7 Globulin 2.5 Albumin/Globulin Ratio 1.5 Procalcitonin 07/13/18 07/13/18 07/13/18 06:30 06:30 06:30 WBC 6.1 RBC 2.66 L Hgb 8.2 L Hct 25.8 L MCV 97.0 MCH 30.8 MCHC 31.8 RDW 16.7 H Plt Count 49 L* MPV 7.6 Gran % 86.2 H Lymph % (Auto) 7.7 L [place] % (Auto) 5.9 Eos % (Auto) 0.2 L Baso % (Auto) 0.0 Gran # 5.28 Lymph # (Auto) 0.5 L [place] # (Auto) 0.4 Eos # (Auto) 0.0 Baso # (Auto) 0.00 PT INR APTT Sodium Potassium Chloride Carbon Dioxide Anion Gap BUN Creatinine Est GFR ( Amer) Est GFR (Non-Af Amer) Random Glucose Calcium Total Bilirubin AST ALT Alkaline Phosphatase Troponin I 0.06 D NT-Pro-B Natriuret Pep 4890 H Total Protein Albumin Globulin Albumin/Globulin Ratio Procalcitonin < 0.05 L Attending/Attestation - Attestation I have personally seen and examined this patient.: Yes I have fully participated in the care of the patient.: Yes I have reviewed all pertinent clinical information: Yes Notes (Text): This is an addendum to GI consult report dictated by the GI Fellow.The patient was seen and examined earlier. Medical records, lab studies, imagings were reviewed. Last 24 hours events reviewed. Agreed with the above treatment plan as outlined in GI Fellow 's notes with the addition of the following This patient has terminal colostomy following surgery for rectal cancer many years ago He refused to have colonoscopy since then for followup History of pharyngeal pouch Status post food impaction removed in the past History of a.fib on Eliquis which has been on hold since this bleed Examination of the colostomy done showed some excoriation of the mucosa This could be the likely cause of bleeding Discussed with Dr. Rocael Du, the surgeon Followup HCT 07/14/18 00:02
[2018-07-13] MEDS ORDERED: Levalbuterol 0.63 MG/3 ML Inhal Soln UD ONE (09:16)
[2018-07-13] MEDS: Levalbuterol 0.63 MG/3 ML Inhal Soln UD IH SCH ×3 (09:25→20:03)
[2018-07-13] MEDS: Pantoprazole 40 mg EC Tab PO SCH (10:00)
[2018-07-13] MEDS: Metoprolol Succinate 25 mg XL Tab PO SCH ×2 (10:01→17:15)
[2018-07-13] MEDS: cefTRIAXone 1 gm 1 GM/100 ML BAG IVPB SCH (10:02)
--- NOTE | 2018-07-13 10:24 | CP.PCM.PCO ---
Physician Communication Note - Physician Communication Note Physician Communication Note: Bleeding(stoma-Lung)stopping/CHF:Rx Lasix IVBID- Consult [place]
[2018-07-13] MEDS: diltiaZEM 180 mg/24 Hours CD Cap PO SCH (10:44)
--- NOTE | 2018-07-13 14:12 | CT ---
Date of service: 07/13/2018 PROCEDURE: CT Chest without contrast HISTORY: sob COMPARISON: CT 01/22/2018 TECHNIQUE: Contiguous axial images were obtained through the chest without intravenous contrast enhancement. Sagittal and coronal reconstructions were performed. Radiation dose (DLP): 262 mGy-cm. This CT exam was performed using one or more of the following dose reduction techniques: Automated exposure control, adjustment of the mA and/or kV according to patient size, and/or use of iterative reconstruction technique. FINDINGS: LUNGS: There is an extensive infiltrate in the right upper lobe consistent with pneumonia. There are small bilateral pleural effusions right greater than left. Emphysematous changes are seen in both upper lobes MEDIASTINUM: Unremarkable thoracic aorta. No aneurysm. Densely calcified coronary arteries. Main pulmonary artery unremarkable. No vascular congestion. No lymphadenopathy. PLEURA: Pleural effusions right greater than left BONES: No fracture. No destructive lesion. UPPER ABDOMEN: Grossly unremarkable. OTHER FINDINGS: None. IMPRESSION: There is an extensive infiltrate in the right upper lobe consistent with pneumonia. There are small bilateral pleural effusions right greater than left. Emphysematous changes are seen in both upper lobes
--- NOTE | 2018-07-13 17:42 | PN ---
DATE: 07/13/2018 SUBJECTIVE: The patient is 82 years old, seen and examined, doing well. Complained of some shortness of breath. Had episode of hemoptysis this morning. PHYSICAL EXAMINATION: VITAL SIGNS: He is afebrile, pulse 88, respiration 19, blood pressure 128/63. LUNGS: Bilateral good airflow. No rhonchi. Only soft crackle at the right base. HEART: S1 and S2 audible. Irregular, rate controlled. ABDOMEN: Soft, nontender. No rebound. No guarding. Ostomy in place. Has some purplish fluid in the bag. EXTREMITIES: Bilateral leg, no edema. LABORATORY EXAM: WBC 6.1, hemoglobin 8.2, hematocrit 25.8, and platelets of 49. Chemistry: Sodium 140, potassium 4.4, chloride 106, CO2 of 26. BUN 26, creatinine 1.1. Blood sugar of 127. BNP 4890. X-ray chest shows new diffuse infiltrate in the right lung. ASSESSMENT: 1. Questionable right lung lower infiltrate. 2. Congestive heart failure. 3. Bleeding from the ostomy site. 4. Chronic atrial fibrillation. 5. Aortic valve stenting and mesh placement. PLAN: The patient has been started on IV Lasix. He has been started on IV antibiotics. I will order for CT scan of the chest to see if this is CHF or infiltrate since the patient does not have a fever and white count we want to know right lower lobe infiltrate is infectious versus . rTi Fleming MD
--- NOTE | 2018-07-13 22:13 | CON ---
DATE: 07/13/2018 REASON FOR CONSULTATION: Congestive heart failure, GI bleed, on Eliquis, atrial fibrillation, cardiac evaluation. BRIEF CLINICAL HISTORY: This is an 82-year-old male with past medical history of rectal CA, history of total colectomy, had a colostomy, history of atrial fibrillation, on Eliquis, admitted with GI bleed and stoma bleed from the colostomy stoma, found to be in congestive heart failure, Cardiology consult was called. The patient denies any chest pain, shortness of breath, or any palpitation. PAST HISTORY: Significant for atrial fibrillation, (AAA) abdominal aortic aneurysm of 5.6 cm, hypertension, COPD, history of seizure disorder, history of hyperlipidemia, thrombocytopenia, history of rectal CA, status post colostomy and had a total colectomy. PAST SURGICAL HISTORY: Significant for angioplasty in 1990, plain balloon angioplasty at [facility], since then, patient is fairly stable. History of AAA, endovascular stent repair for the AAA. As mentioned, past surgical history is significant for endovascular stent done on 03/16/2018 for AAA. PREVIOUS CARDIAC WORKUP: As follows: Patient had recently endovascular stent 5.6 cm AAA dated 03/16/[address] [facility], history of a stress test on 02/26/2018, preop evaluation for AAA that shows essentially normal myocardial perfusion study, fixed defect, most likely secondary to diaphragmatic attenuation, ejection fraction 55%, IV Lexiscan. Patient had echocardiography done on 02/13/2018 that shows concentric LVH, proximal septal thickness noted with the resting gradient 4 to 6 mm, not significant. LV ejection fraction 65%, aortic sclerosis, mild , trace aortic regurgitation, moderate mitral regurgitation, moderate tricuspid regurgitation, RV systolic pressure of 63, [id number] pulmonary hypertension. CURRENT MEDICATIONS: Patient is taking Cardizem CD 360 mg daily, phenytoin, Dilantin 100 mg p.o. t.i.d., metoprolol that is Toprol 25 p.o. b.i.d., Lasix 40 mg daily, atorvastatin 10 mg, aspirin 81 mg, Eliquis 5 mg b.i.d. REVIEW OF SYSTEMS: As per . ALLERGIES: NO KNOWN DRUG ALLERGY. PHYSICAL EXAMINATION: VITAL SIGNS: Temperature afebrile, heart rate 113, blood pressure 134/68. HEENT: PERRLA. Extraocular muscles intact. NECK: Supple. No carotid bruit or thyromegaly. CHEST: Clear to auscultation. HEART: S1 and S2 regular. ABDOMEN: Soft. EXTREMITIES: Clubbing and cyanosis negative. LABORATORY DATA: Blood workup; WBC 6.1, hemoglobin 8.2, hematocrit 25.8, and platelet count 49. Chemistry shows sodium 140, potassium 4.4, chloride 106, carbon dioxide 27, anion gap of 11, BUN 26, creatinine 1.1. Troponin 0.04. IMPRESSION: An 82-year-old male with past medical history significant for rectal cancer, status post colostomy, bleeding from the rectal stoma; history of atrial fibrillation; status post abdominal aortic aneurysm repair, endovascular; admitted with shortness of breath and bleeding. RECOMMENDATIONS: We will start IV Lasix 40 every 12, continue Cardizem, monitor heart rate, monitor H and H. We will follow with you. Thank you Dr. Du/Dr. Fleming, for providing us the opportunity in taking care of the patient, Alexia. We will follow with you. Gladis Greenfield MD
[2018-07-14 07:15] LABS: HEMOGLOBIN 7.3 g/dL (14.0-18.0); MEAN CELL VOLUME 96.2 fl (80.0-105.0); MEAN CORPUSCULAR HEMOGLOBIN 30.9 pg (25.0-35.0); MEAN CORPUSCULAR HGB CONC 32.2 g/dl (31.0-37.0); MEAN PLATELET VOLUME 8.1 fl (7.0-11.0); RBC 2.36 10^6/uL (3.5-6.1); RED CELL DISTRIBUTION WIDTH 16.7 % (11.5-14.5); WHITE BLOOD COUNT 4.1 10^3/ul (4.5-11.0)
[2018-07-14 07:27] LABS: PLATELET COUNT 44 10^3/uL (120.0-450.0)
[2018-07-14 07:41] LABS: ALB/GLOB RATIO 1.4 (1.1-1.8); ALT/SGPT 26 U/L (7-56); AST/SGOT 29 U/L (17-59); BLOOD UREA NITROGEN 27 mg/dL (7-21); CALCIUM 8.4 mg/dL (8.4-10.5); GFR NON-AFRICAN AMERICAN 58
[2018-07-14] MEDS: Levalbuterol 0.63 MG/3 ML Inhal Soln UD IH SCH ×3 (08:32→20:19)
--- NOTE | 2018-07-14 09:53 | CP.PCM.PN ---
<Rio Quiroz - Last Filed: 07/14/18 09:50> Subjective - Date & Time of Evaluation Date of Evaluation: 07/14/18 Time of Evaluation: 07:00 - Subjective Subjective: PGY-4 GI Fellow Prog Note Pt lying in bed when seen this AM. No complaints. Denies any bleeding from stoma nor hemoptysis. 5 point ROS negative other than stated above. Objective - Vital Signs/Intake and Output Vital Signs (last 24 hours): Temp Pulse Resp BP Pulse Ox 97.9 F 96 H 20 130/76 95 07/14/18 06:00 07/14/18 06:00 07/14/18 06:00 07/14/18 08:32 07/14/18 06:00 Intake and Output: 07/14/18 07/14/18 06:59 18:59 Intake Total 1260 Output Total 1600 Balance -340 - Medications Medications: Current Medications Atorvastatin Calcium (Lipitor) 10 mg PO DIN [facility] Last Admin: 07/13/18 17:15 Dose: 10 mg Diltiazem HCl (Cardizem Cd) 360 mg PO DAILY [facility] Last Admin: 07/13/18 10:44 Dose: Not Given Furosemide (Lasix) 40 mg IVP 0800,1400 [facility] Last Admin: 07/14/18 08:32 Dose: 40 mg Ceftriaxone Sodium (Rocephin 1 Gram Ivpb) 1 gm in 100 mls @ 100 mls/hr IVPB DAILY [facility]; Protocol Last Admin: 07/13/18 10:02 Dose: 100 mls/hr Levalbuterol HCl (Xopenex) 0.63 mg IH [id number] [facility] Last Admin: 07/14/18 08:32 Dose: 0.63 mg Metoprolol Succinate (Toprol Xl) 25 mg PO BID [facility] Last Admin: 07/13/18 17:15 Dose: 25 mg Pantoprazole Sodium (Protonix Ec Tab) 40 mg PO DAILY [facility] Last Admin: 07/13/18 10:00 Dose: 40 mg Phenytoin Sodium (Dilantin) 100 mg PO TID [facility] Last Admin: 07/13/18 17:15 Dose: 100 mg - Labs Labs: 07/14/18 06:30 07/14/18 06:30 PT 12.5 SECONDS (9.4-12.5) 07/13/18 03:40 INR 1.09 07/13/18 03:40 APTT 29.1 Seconds (25.1-36.5) 07/13/18 03:40 - Constitutional Appears: Well, Non-toxic - Eye Exam Eye Exam: EOMI. absent: Conjunctival injection, Scleral icterus - ENT Exam ENT Exam: Mucous Membranes Moist, Normal External Ear Exam. absent: Mucous Membranes Dry - Respiratory Exam Respiratory Exam: Clear to Ausculation Bilateral, NORMAL BREATHING PATTERN - GI/Abdominal Exam GI & Abdominal Exam: Soft, Normal Bowel Sounds. absent: Bruit, Distended, Firm, Guarding, Rigid, Tenderness, Mass, Organomegaly, Pulsatile Mass, Rebound Additional comments: LLQ colostomy bag in place Assessment and Plan - Assessment and Plan (Free Text) Assessment: 82 yo WM with h/o rectal CA s/p resection with colostomy presenting with bleeding from stoma. # Lower GI Bleed: From pts colostomy site with risk factors of apixaban use and ASA 81 mg. Hgb not sig down from baseline and hemodynamically stable. There was a small clot on exam that could have been the source of bleed. Reassuringly, not further bleeding noted since admission other than some hemoptysis. # H/o Zenkers and food impaction Plan: - Defer timing of apixaban resumption to surgical team - Monitor H&H - Recommended OP Colonoscopy Thank you for the consult. Will cont to follow. Pt seen and examined with Dr. Hinton; see attestation for further recs/changes. <Samson Hinton V - Last Filed: 07/14/18 23:30> Objective - Vital Signs/Intake and Output Vital Signs (last 24 hours): Temp Pulse Resp BP Pulse Ox 98.5 F 96 H 18 131/76 95 07/14/18 22:19 07/14/18 22:19 07/14/18 22:19 07/14/18 22:19 07/14/18 06:00 Intake and Output: 07/14/18 07/15/18 18:59 06:59 Intake Total 1341 1465 Output Total 1150 Balance 1341 315 - Medications Medications: Current Medications Atorvastatin Calcium (Lipitor) 10 mg PO DIN [facility] Last Admin: 07/14/18 17:25 Dose: 10 mg Diltiazem HCl (Cardizem Cd) 360 mg PO DAILY [facility] Last Admin: 07/14/18 10:14 Dose: 360 mg Furosemide (Lasix) 40 mg IVP 0800,1400 [facility] Last Admin: 07/14/18 16:39 Dose: 40 mg Cefepime HCl (Maxipime 1gm) 1 gm in 100 mls @ 100 mls/hr IVPB Q12 [facility]; Protocol Last Admin: 07/14/18 22:12 Dose: 100 mls/hr Doxycycline Hyclate 100 mg/ (Sodium Chloride) 100 mls @ 100 mls/hr IVPB Q12 [facility]; Protocol Last Admin: 07/14/18 22:09 Dose: 100 mls/hr Levalbuterol HCl (Xopenex) 0.63 mg IH [id number] [facility] Last Admin: 07/14/18 20:19 Dose: 0.63 mg Metoprolol Succinate (Toprol Xl) 25 mg PO BID [facility] Last Admin: 07/14/18 17:25 Dose: 25 mg Pantoprazole Sodium (Protonix Ec Tab) 40 mg PO DAILY [facility] Last Admin: 07/14/18 10:15 Dose: 40 mg Phenytoin Sodium (Dilantin) 100 mg PO TID [facility] Last Admin: 07/14/18 17:25 Dose: 100 mg - Labs Labs: 07/14/18 06:30 07/14/18 06:30 PT 12.5 SECONDS (9.4-12.5) 07/13/18 03:40 INR 1.09 07/13/18 03:40 APTT 29.1 Seconds (25.1-36.5) 07/13/18 03:40 Attending/Attestation - Attestation I have personally seen and examined this patient.: Yes I have fully participated in the care of the patient.: Yes I have reviewed all pertinent clinical information, including history, physical exam and plan: Yes Notes (Text): This is an addendum to GI progress report dictated by the GI Fellow.The patient was seen and examined earlier. Medical records, lab studies, imagings were reviewed. Last 24 hours events reviewed. Agreed with the above treatment plan as outlined in GI Fellow 's notes with the addition of the following Patient had bleeding from colostomy site. There was erosions noticed on the surface of the mucosa which was partially prolapsing This patient never had a colonoscopy since his abdomino perineal resection for rectal cancer. 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 The bleeding through colostomy was bright red not Beti suggestive of this is not upper GI bleeding Patient was on Eliquis Patient now wants to change the anticoagulation h/o Paroxysmal A. fib Would consider colonoscopy if the patient is agreeable We will await for optimization of the resspiratory status, patient has a lung infiltrate now Patient is being transfused, follow-up hemoglobin 07/14/18 23:24
[2018-07-14] MEDS: diltiaZEM 180 mg/24 Hours CD Cap PO SCH (10:14)
[2018-07-14] MEDS: Metoprolol Succinate 25 mg XL Tab PO SCH ×2 (10:15→17:25)
[2018-07-14] MEDS: Pantoprazole 40 mg EC Tab PO SCH (10:15)
[2018-07-14] MEDS: cefTRIAXone 1 gm 1 GM/100 ML BAG IVPB SCH (10:15)
--- NOTE | 2018-07-14 11:44 | CP.PCM.PN ---
Subjective - Date & Time of Evaluation Date of Evaluation: 07/14/18 Time of Evaluation: 11:38 - Subjective Subjective: General Surgery progress note for Dr. Du Patient was seen and examined at bedside. No acute events overnight. Patient states he is feeling much better and denies having a bloody bowel movement or hemoptysis. He denies any chest pain, fevers, chills, or SOB. Objective - Vital Signs/Intake and Output Vital Signs (last 24 hours): Temp Pulse Resp BP Pulse Ox 97.9 F 97 H 20 129/68 95 07/14/18 06:00 07/14/18 10:15 07/14/18 06:00 07/14/18 10:15 07/14/18 06:00 Intake and Output: 07/14/18 07/14/18 06:59 18:59 Intake Total 1260 Output Total 1600 Balance -340 - Medications Medications: Current Medications Atorvastatin Calcium (Lipitor) 10 mg PO DIN [facility] Last Admin: 07/13/18 17:15 Dose: 10 mg Diltiazem HCl (Cardizem Cd) 360 mg PO DAILY [facility] Last Admin: 07/14/18 10:14 Dose: 360 mg Furosemide (Lasix) 40 mg IVP 0800,1400 [facility] Last Admin: 07/14/18 08:32 Dose: 40 mg Levalbuterol HCl (Xopenex) 0.63 mg IH [id number] [facility] Last Admin: 07/14/18 08:32 Dose: 0.63 mg Metoprolol Succinate (Toprol Xl) 25 mg PO BID [facility] Last Admin: 07/14/18 10:15 Dose: 25 mg Pantoprazole Sodium (Protonix Ec Tab) 40 mg PO DAILY [facility] Last Admin: 07/14/18 10:15 Dose: 40 mg Phenytoin Sodium (Dilantin) 100 mg PO TID [facility] Last Admin: 07/14/18 10:15 Dose: 100 mg - Labs Labs: 07/14/18 06:30 07/14/18 06:30 PT 12.5 SECONDS (9.4-12.5) 07/13/18 03:40 INR 1.09 07/13/18 03:40 APTT 29.1 Seconds (25.1-36.5) 07/13/18 03:40 - Constitutional Appears: Well, Non-toxic, No Acute Distress - Head Exam Head Exam: ATRAUMATIC, NORMOCEPHALIC - Eye Exam Eye Exam: Normal appearance - ENT Exam ENT Exam: Mucous Membranes Moist - Respiratory Exam Respiratory Exam: NORMAL BREATHING PATTERN. absent: Respiratory Distress - Cardiovascular Exam Cardiovascular Exam: RRR. absent: Tachycardia - GI/Abdominal Exam GI & Abdominal Exam: Soft. absent: Distended, Guarding, Tenderness Additional comments: Stoma patent, with parastomal hernia - Extremities Exam Extremities Exam: Normal Inspection - Neurological Exam Neurological Exam: Alert, Awake, Oriented x3 - Psychiatric Exam Psychiatric exam: Normal Affect, Normal Mood - Skin Skin Exam: Dry, Intact, Warm Assessment and Plan - Assessment and Plan (Free Text) Assessment: 82 year old male with history of rectal CA s/p resection with colostomy presenting with bleeding from stoma. Plan: - Continue to hold Eliquis - FOBT - Monitor H & H - Possible blood transfusion - Recommended EGD and colonoscopy to rule out GI bleed Case discussed with Dr. Florian Pyle DO PGY-1
--- NOTE | 2018-07-14 12:54 | PN ---
DATE: 07/14/2018 REASON FOR CONSULTATION: Follow up, congestive heart failure, GI bleed, on Eliquis, atrial fibrillation, cardiac evaluation. Patient denies any further episodes of bleeding from the stoma site. Denies any shortness of breath, denies any palpitations. PHYSICAL EXAMINATION: VITAL SIGNS: Temperature afebrile, heart rate 96, blood pressure 130/76. HEENT: PERRLA. Extraocular muscles intact. NECK: Supple. No carotid bruits or thyromegaly. CHEST: Clear to auscultation. HEART: S1, S2 regular. ABDOMEN: Soft. EXTREMITIES: Clubbing, cyanosis negative. LABORATORY DATA: Blood work up as follows: WBC , hemoglobin 7.3, hematocrit 22.7, platelet count 44. Chemistry showed sodium 138, potassium 4.0, chloride 103, carbon dioxide 30, anion gap of 9, BUN 23, creatinine 1.2, BNP 4890. IMPRESSION: Severe anemia, bleeding from the stoma site of colostomy. Dropped hemoglobin to 7.2. 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 Recent stress test preop was essentially negative. Fixed defect, ejection fraction 55%, history of recent echo 02/13/2018 shows concentric LVH, proximal septal thickening, but no significant resting gradient across LVOT and only 46 mm. Not significant. Ejection fraction 65%. Mild aortic stenosis, aortic sclerosis, trace aortic regurgitation, moderate mitral regurgitation, moderate tricuspid regurgitation, RV systolic pressure of 63. Mild to moderate pulmonary hypertension, history of rectal cancer, history of colostomy, this time patient admitted with bleeding from the stoma site. RECOMMENDATIONS: Will give 2 units of packed RBC now. Continue IV Lasix has increased to 40 b.i.d., monitor H and H, monitor electrolytes, continue atorvastatin, continue Cardizem 360 and continue beta tammy as given by Dr. Fleming. We will give 2 units of packed RBC. We will repeat CBC at 7 in the morning. Gladis Greenfield MD
[2018-07-14] MEDS: Cefepime 1gm in NS 100ml 1 GM/100 ML BAG IVPB SCH ×2 (13:22→22:12)
--- NOTE | 2018-07-14 15:23 | PN ---
DATE: 07/14/2018 SUBJECTIVE: The patient is 82 years old, seen and examined, doing well, mild shortness of breath, no more active bleeding from the stoma. PHYSICAL EXAMINATION: VITAL SIGNS: He is afebrile, pulse 97, respirations 20, blood pressure 129/68. LUNGS: Bilateral few soft crackle at the bases. HEART: S1 and S2 audible. ABDOMEN: Soft and nontender. No rebound. No guarding. NEUROLOGIC: He is awake, alert, oriented, communicative, and ambulatory. LABORATORY DATA: WBC is 4.1, hemoglobin 7.3, hematocrit 22.7, and platelets 44. Chemistry: Sodium 138, potassium 4.2, chloride 103, CO2 of 30. BUN 27, creatinine 1.2. Blood sugar of 113. 0.05. CT scan of the chest was done that shows extensive infiltrate in the right upper lobe consistent with pneumonia. There are small bilateral pleural effusion right greater than left, emphysematous changes are seen in the both upper lobes. ASSESSMENT: 1. Bleeding in the colostomy stoma. There is no more active bleeding. Anticoagulant is on hold. 2. Chronic atrial fibrillation. 3. Hypertension. 4. History of seizure disorder. 5. Right upper lung infiltrate. PLAN: We will give him two blood transfusions under cover of Lasix, start him on IV antibiotic. We will discuss with Dr. Hinton for possible endoscopy through the stoma. Probably, we have to treat his pneumonia before he proceeds with colonoscopy. Also, request Dr. Garvin to evaluate the patient also. Tri Fleming MD
[2018-07-15] MEDS: Levalbuterol 0.63 MG/3 ML Inhal Soln UD IH SCH ×4 (01:24→20:30)
[2018-07-15 07:19] LABS: HEMOGLOBIN 8.8 g/dL (14.0-18.0); MEAN CELL VOLUME 94.8 fl (80.0-105.0); MEAN CORPUSCULAR HEMOGLOBIN 30.8 pg (25.0-35.0); MEAN CORPUSCULAR HGB CONC 32.5 g/dl (31.0-37.0); RBC 2.86 10^6/uL (3.5-6.1); RED CELL DISTRIBUTION WIDTH 16.9 % (11.5-14.5); WHITE BLOOD COUNT 4.8 10^3/ul (4.5-11.0)
--- NOTE | 2018-07-15 07:25 | CP.PCM.PN ---
<Rio Quiroz - Last Filed: 07/15/18 10:38> Subjective - Date & Time of Evaluation Date of Evaluation: 07/15/18 Time of Evaluation: 09:00 - Subjective Subjective: PGY-4 GI Fellow Prog Note Pt lying in bed when seen this AM. States breathing better and no further signs of bleeding. Pt states is anxious to restart anticoagulation now given bleeding concerns. Therefore, he is now agreeable for endoscopy. 5 point ROS negative other than stated above Objective - Vital Signs/Intake and Output Vital Signs (last 24 hours): Temp Pulse Resp BP Pulse Ox 98.5 F 94 H 18 131/76 93 L 07/15/18 00:01 07/15/18 02:00 07/15/18 00:01 07/15/18 00:01 07/15/18 00:01 Intake and Output: 07/15/18 07/15/18 06:59 18:59 Intake Total 1705 Output Total 2100 Balance -395 - Medications Medications: Current Medications Atorvastatin Calcium (Lipitor) 10 mg PO DIN [facility] Last Admin: 07/14/18 17:25 Dose: 10 mg Diltiazem HCl (Cardizem Cd) 360 mg PO DAILY [facility] Last Admin: 07/14/18 10:14 Dose: 360 mg Furosemide (Lasix) 40 mg IVP 0800,1400 [facility] Last Admin: 07/14/18 16:39 Dose: 40 mg Cefepime HCl (Maxipime 1gm) 1 gm in 100 mls @ 100 mls/hr IVPB Q12 [facility]; Protocol Last Admin: 07/14/18 22:12 Dose: 100 mls/hr Doxycycline Hyclate 100 mg/ (Sodium Chloride) 100 mls @ 100 mls/hr IVPB Q12 [facility]; Protocol Last Admin: 07/14/18 22:09 Dose: 100 mls/hr Levalbuterol HCl (Xopenex) 0.63 mg IH [id number] [facility] Last Admin: 07/15/18 01:24 Dose: 0.63 mg Metoprolol Succinate (Toprol Xl) 25 mg PO BID [facility] Last Admin: 07/14/18 17:25 Dose: 25 mg Pantoprazole Sodium (Protonix Ec Tab) 40 mg PO DAILY [facility] Last Admin: 07/14/18 10:15 Dose: 40 mg Phenytoin Sodium (Dilantin) 100 mg PO TID [facility] Last Admin: 07/14/18 17:25 Dose: 100 mg - Labs Labs: 07/14/18 06:30 07/14/18 06:30 PT 12.5 SECONDS (9.4-12.5) 07/13/18 03:40 INR 1.09 07/13/18 03:40 APTT 29.1 Seconds (25.1-36.5) 07/13/18 03:40 - Constitutional Appears: Well, Non-toxic, No Acute Distress - Head Exam Head Exam: ATRAUMATIC, NORMAL INSPECTION - Eye Exam Eye Exam: EOMI. absent: Conjunctival injection, Scleral icterus - ENT Exam ENT Exam: Mucous Membranes Moist, Normal External Ear Exam. absent: Mucous Membranes Dry - Respiratory Exam Respiratory Exam: NORMAL BREATHING PATTERN. absent: Accessory Muscle Use - Cardiovascular Exam Cardiovascular Exam: REGULAR RHYTHM, RRR - GI/Abdominal Exam GI & Abdominal Exam: Soft, Normal Bowel Sounds. absent: Bruit, Distended, Firm, Guarding, Rigid, Tenderness, Mass, Organomegaly, Rebound Additional comments: + colostomy in place Assessment and Plan - Assessment and Plan (Free Text) Assessment: 82 yo WM with h/o rectal CA s/p resection, pAF (on anticoagulation) with colostomy presenting with bleeding from stoma. # Lower GI Bleed: From pts colostomy site with risk factors of apixaban use and ASA 81 mg. Hgb not sig down from baseline and hemodynamically stable. There was a small clot on admission that could have been the source of bleed. Reassuringly, not further bleeding noted since admission other than some hemoptysis which has also resolved. However, pt has now change his mind regarding endoscopic evaluation due to concerns of resuming anti-coagulation. # H/o Zenkers and food impaction Plan: - Plan for EGD and Colonoscopy on 07/16/[address] Hinton - Latrice prep tonight - Clear Liq diet, NPO except meds after midnight - Cont to hold anticoagulation - Monitor H&H Thank you for the consult. Will cont to follow. Pt seen and examined with Dr. Hinton; see attestation for further recs/changes. <Samson Hinton V - Last Filed: 07/15/18 23:39> Objective - Vital Signs/Intake and Output Vital Signs (last 24 hours): Temp Pulse Resp BP Pulse Ox 98.7 F 99 H 20 127/78 92 L 07/15/18 18:00 07/15/18 18:00 07/15/18 18:00 07/15/18 18:00 07/15/18 06:00 Intake and Output: 07/15/18 07/16/18 18:59 06:59 Intake Total 1340 Output Total 575 Balance 765 - Medications Medications: Current Medications Atorvastatin Calcium (Lipitor) 10 mg PO DIN [facility] Last Admin: 07/15/18 17:31 Dose: 10 mg Diltiazem HCl (Cardizem Cd) 360 mg PO DAILY [facility] Last Admin: 07/15/18 10:06 Dose: 360 mg Furosemide (Lasix) 40 mg PO BID [facility] Stop: 07/15/18 23:59 Last Admin: 07/15/18 17:35 Dose: 40 mg Furosemide (Lasix) 40 mg PO 0800,1400 [facility] Cefepime HCl (Maxipime 1gm) 1 gm in 100 mls @ 100 mls/hr IVPB Q12 [facility]; Protocol Last Admin: 07/15/18 21:48 Dose: 100 mls/hr Doxycycline Hyclate 100 mg/ (Sodium Chloride) 100 mls @ 100 mls/hr IVPB Q12 [facility]; Protocol Last Admin: 07/15/18 21:48 Dose: 100 mls/hr Levalbuterol HCl (Xopenex) 0.63 mg IH [id number] [facility] Last Admin: 07/15/18 14:03 Dose: 0.63 mg Metoprolol Succinate (Toprol Xl) 25 mg PO BID [facility] Last Admin: 07/15/18 17:31 Dose: 25 mg Pantoprazole Sodium (Protonix Ec Tab) 40 mg PO DAILY [facility] Last Admin: 07/15/18 10:10 Dose: 40 mg Phenytoin Sodium (Dilantin) 100 mg PO TID [facility] Last Admin: 07/15/18 17:31 Dose: 100 mg - Labs Labs: 07/15/18 06:30 07/15/18 06:30 PT 12.5 SECONDS (9.4-12.5) 07/13/18 03:40 INR 1.09 07/13/18 03:40 APTT 29.1 Seconds (25.1-36.5) 07/13/18 03:40 Attending/Attestation - Attestation I have personally seen and examined this patient.: Yes I have fully participated in the care of the patient.: Yes I have reviewed all pertinent clinical information, including history, physical exam and plan: Yes Notes (Text): This is an addendum to GI progress report dictated by the GI Fellow.The patient was seen and examined earlier. Medical records, lab studies, imagings were reviewed. Last 24 hours events reviewed. Agreed with the above treatment plan as outlined in GI Fellow 's notes with the addition of the following This patient is finally agreeable for an EGD colonoscopy to further evaluate bleeding Will start on liquid diet and on bowl prep Restart anticoagulation after reviewing the endoscopic procedures 07/15/18 23:38
[2018-07-15 07:30] LABS: BLOOD UREA NITROGEN 24 mg/dL (7-21); CALCIUM 8.3 mg/dL (8.4-10.5); GFR NON-AFRICAN AMERICAN > 60
[2018-07-15 07:34] LABS: PLATELET COUNT 44 10^3/uL (120.0-450.0)
--- NOTE | 2018-07-15 08:47 | CP.PCM.PN ---
Subjective - Date & Time of Evaluation Date of Evaluation: 07/15/18 Time of Evaluation: 08:28 - Subjective Subjective: General Surgery Progress Note for Dr. Du This 82M was seen and examined this AM at bedside. No acute events overnight. Patient denies having a bloody bowel movement or hemoptysis. He denies any chest pain, fevers, chills, or SOB. Objective - Vital Signs/Intake and Output Vital Signs (last 24 hours): Temp Pulse Resp BP Pulse Ox 99.3 F 99 H 18 138/70 92 L 07/15/18 06:00 07/15/18 06:00 07/15/18 06:00 07/15/18 06:00 07/15/18 06:00 Intake and Output: 07/15/18 07/15/18 06:59 18:59 Intake Total 1905 Output Total 2100 Balance -195 - Medications Medications: Current Medications Atorvastatin Calcium (Lipitor) 10 mg PO DIN [facility] Last Admin: 07/14/18 17:25 Dose: 10 mg Diltiazem HCl (Cardizem Cd) 360 mg PO DAILY [facility] Last Admin: 07/14/18 10:14 Dose: 360 mg Furosemide (Lasix) 40 mg IVP 0800,1400 [facility] Last Admin: 07/14/18 16:39 Dose: 40 mg Cefepime HCl (Maxipime 1gm) 1 gm in 100 mls @ 100 mls/hr IVPB Q12 [facility]; Protocol Last Admin: 07/14/18 22:12 Dose: 100 mls/hr Doxycycline Hyclate 100 mg/ (Sodium Chloride) 100 mls @ 100 mls/hr IVPB Q12 [facility] ; Protocol Last Admin: 07/14/18 22:09 Dose: 100 mls/hr Levalbuterol HCl (Xopenex) 0.63 mg IH [id number] [facility] Last Admin: 07/15/18 07:35 Dose: 0.63 mg Metoprolol Succinate (Toprol Xl) 25 mg PO BID [facility] Last Admin: 07/14/18 17:25 Dose: 25 mg Pantoprazole Sodium (Protonix Ec Tab) 40 mg PO DAILY [facility] Last Admin: 07/14/18 10:15 Dose: 40 mg Phenytoin Sodium (Dilantin) 100 mg PO TID [facility] Last Admin: 07/14/18 17:25 Dose: 100 mg - Labs Labs: 07/15/18 06:30 07/15/18 06:30 PT 12.5 SECONDS (9.4-12.5) 07/13/18 03:40 INR 1.09 07/13/18 03:40 APTT 29.1 Seconds (25.1-36.5) 07/13/18 03:40 - Constitutional Appears: Well, Non-toxic, No Acute Distress - Head Exam Head Exam: ATRAUMATIC, NORMOCEPHALIC - Eye Exam Eye Exam: Normal appearance - ENT Exam ENT Exam: Mucous Membranes Moist - Respiratory Exam Respiratory Exam: NORMAL BREATHING PATTERN. absent: Respiratory Distress - Cardiovascular Exam Cardiovascular Exam: RRR. absent: Tachycardia - GI/Abdominal Exam GI & Abdominal Exam: Soft. absent: Distended, Guarding, Tenderness Additional comments: Stoma patent, with parastomal hernia - Extremities Exam Extremities Exam: Normal Inspection - Neurological Exam Neurological Exam: Alert, Awake, Oriented x3 - Psychiatric Exam Psychiatric exam: Normal Affect, Normal Mood - Skin Skin Exam: Dry, Intact, Warm Assessment and Plan - Assessment and Plan (Free Text) Assessment: 82 year old male with history of rectal CA s/p resection with colostomy presenting with bleeding from stoma. Plan: - FOBT - Monitor H & H - F/U GI recs Further recs by Dr. Florian Cardenas PGY3
[2018-07-15 09:30] LABS: PLATELET COUNT MANUAL 50 K/mm3 (120-450)
[2018-07-15 09:32] LABS: PLATELET ESTIMATE LOW (NORMAL)
[2018-07-15] MEDS ORDERED: Peg-Electrolyte Oral Soln 4L (Golytely) PO ONE ×2 (09:41→16:00)
[2018-07-15] MEDS: Metoprolol Succinate 25 mg XL Tab PO SCH ×2 (10:05→17:31)
[2018-07-15] MEDS: Cefepime 1gm in NS 100ml 1 GM/100 ML BAG IVPB SCH ×2 (10:05→21:48)
[2018-07-15] MEDS: diltiaZEM 180 mg/24 Hours CD Cap PO SCH (10:06)
[2018-07-15] MEDS: Pantoprazole 40 mg EC Tab PO SCH (10:10)
--- NOTE | 2018-07-15 11:02 | CP.PCM.PN ---
Subjective - Date & Time of Evaluation Date of Evaluation: 07/15/18 Time of Evaluation: 06:40 - Subjective Subjective: Awake,alert, no distress, going to the bathroom a lot to urinate Reason for consultation and follow up: Cardiac evaluation of Atrial f ibrillation on Eliquis, admitted for GI bleeding, blood clots from colostomy bag, history of congestive heart failure, Seen and examined by me and Dr. Greenfield Objective - Vital Signs/Intake and Output Vital Signs (last 24 hours): Temp Pulse Resp BP Pulse Ox 99.3 F 99 H 18 136/72 92 L 07/15/18 06:00 07/15/18 10:06 07/15/18 06:00 07/15/18 10:06 07/15/18 06:00 Intake and Output: 07/15/18 07/15/18 06:59 18:59 Intake Total 1905 Output Total 2100 Balance -195 - Medications Medications: Current Medications Atorvastatin Calcium (Lipitor) 10 mg PO DIN [facility] Last Admin: 07/14/18 17:25 Dose: 10 mg Diltiazem HCl (Cardizem Cd) 360 mg PO DAILY [facility] Last Admin: 07/15/18 10:06 Dose: 360 mg Furosemide (Lasix) 40 mg IVP 0800,1400 [facility] Last Admin: 07/15/18 10:04 Dose: 40 mg Cefepime HCl (Maxipime 1gm) 1 gm in 100 mls @ 100 mls/hr IVPB Q12 [facility]; Protocol Last Admin: 07/15/18 10:05 Dose: 100 mls/hr Doxycycline Hyclate 100 mg/ (Sodium Chloride) 100 mls @ 100 mls/hr IVPB Q12 [facility]; Protocol Last Admin: 07/14/18 22:09 Dose: 100 mls/hr Levalbuterol HCl (Xopenex) 0.63 mg IH [id number] [facility] Last Admin: 07/15/18 07:35 Dose: 0.63 mg Metoprolol Succinate (Toprol Xl) 25 mg PO BID [facility] Last Admin: 07/15/18 10:05 Dose: 25 mg Pantoprazole Sodium (Protonix Ec Tab) 40 mg PO DAILY [facility] Last Admin: 07/15/18 10:10 Dose: 40 mg Phenytoin Sodium (Dilantin) 100 mg PO TID [facility] Last Admin: 07/15/18 10:06 Dose: 100 mg - Labs Labs: 07/15/18 06:30 07/15/18 06:30 PT 12.5 SECONDS (9.4-12.5) 07/13/18 03:40 INR 1.09 07/13/18 03:40 APTT 29.1 Seconds (25.1-36.5) 07/13/18 03:40 - Constitutional Appears: Non-toxic, No Acute Distress - Eye Exam Eye Exam: Normal appearance - ENT Exam ENT Exam: Mucous Membranes Dry, Normal Exam - Respiratory Exam Respiratory Exam: Decreased Breath Sounds, Clear to Ausculation Bilateral, NORMAL BREATHING PATTERN - Cardiovascular Exam Cardiovascular Exam: Irregular Rhythm, +S1, +S2 Additional comments: Telemetry Afib/alfutter 90's/min - GI/Abdominal Exam GI & Abdominal Exam: Soft, Normal Bowel Sounds Additional comments: colostomy bag - Extremities Exam Additional comments: 1-2+ edema - Neurological Exam Neurological Exam: Alert, Awake, Oriented x3 - Psychiatric Exam Psychiatric exam: Normal Affect, Normal Mood - Skin Skin Exam: Dry, Intact, Normal Color, Warm Assessment and Plan - Assessment and Plan (Free Text) Assessment: A 62 year old male who came in to the ER due to blood clots from colostomy bag. History of rectal cancer with resection in 2001, with colostomy, atrial fibrillation on Eliquis. TIA,former smoker, anxiety,history of fall, hyperlipidemia, urinary frequency and retention. Low hemoglobin upon admission. Transfused 2 units of PRBC. Repeat H/H stable. Eliquis stopped. Plan: No further bleeding from colostomy Repeat H/H 8.8/27.1 Consider transfusing if below 8 Complaining of frequent urination especially at night because of Lasix Will change IV Lasiv to oral Less swelling on legs Controlled heart rate-Atrial flutter 90's Controlled blood pressure On Lipitor 10 mg daily, Cardizem 360 mg daily, Lasix 40 mg BID, Toprol 25 mg daily, Dilantin 100 mg TID Continue current medications Continue current treatment Chart reviewed Will follow up Plan and treatment discussed with Dr. Jean Pierre sommers
--- NOTE | 2018-07-15 14:14 | PN ---
DATE: 07/15/2018 SUBJECTIVE: Patient is 82 years old, seen and examined. Denies any chest pain. No shortness of breath. Resting comfortably. No more active bleeding from the stoma. Received two blood transfusions yesterday. PHYSICAL EXAMINATION: VITAL SIGNS: Temperature 99.3, pulse 92, respiration 18, blood pressure 138/70. LUNGS: Bilateral good airflow. No rhonchi or crackle. HEART: S1 and S2 audible. ABDOMEN: Soft. Colostomy in place. NEUROLOGICAL: He is awake and alert, able to communicate. EXTREMITIES: Bilateral legs, no edema. LABORATORY EXAMINATION: WBC is 4.8, hemoglobin 8.8, hematocrit 27.1, platelets 44. Chemistry: Sodium 138, potassium 3.7, chloride 100, CO2 32. BUN 24, creatinine 1.1. Blood sugar of 105. Procalcitonin 0.05. Stool for Hemoccult is positive. ASSESSMENT: 1. Gastrointestinal bleed, source unknown. 2. Blood loss anemia status post two blood transfusions. 3. Right upper lobe infiltrate probably chronic aspiration suspicion as history of Zenker's diverticulum. 4. Bilateral pleural effusion. 5. Paroxysmal atrial fibrillation. 6. History of seizure disorder. 7. Thrombocytopenia. PLAN: Patient is currently on IV antibiotics, request ID input. We will continue on nebulizer treatment, continue on Maxipime and doxycycline. Plan is to have a colonoscopy done tomorrow. We will follow up CBC and CMP in a.m. Tri Fleming MD
[2018-07-15] MEDS ORDERED: Potassium Chloride 20 mEq ER Tab PO ONE (16:14)
[2018-07-15] MEDS ORDERED: Magnesium Citrate Oral SOL (300 ml) PO ONE (22:49)
[2018-07-15] MEDS ORDERED: Bisacodyl 5mg EC Tab PO ONE (22:50)
[2018-07-16] MEDS: Levalbuterol 0.63 MG/3 ML Inhal Soln UD IH SCH ×4 (02:26→20:12)
--- NOTE | 2018-07-16 05:03 | CON ---
DATE: 07/15/2018 LOCATION: The patient was seen earlier today in room 277. CHIEF COMPLAINT: Weakness times several days. HISTORY OF PRESENT ILLNESS: This is an 82-year-old male from home who was in the hospital in 03/2018 with chest pain, returned at this time, was seen in the emergency room, was given the diagnosis of gastrointestinal hemorrhage. In the emergency room, the patient was seen by Dr. Lan Polo who states that the patient has rectal cancer and in 2000 presented to the emergency room where the patient has a history of colostomy and he noted there was blood in his colostomy bag. There has been no headaches, no blurred vision, no dizziness. There has been cough. There has been short of breath. PAST MEDICAL HISTORY: Significant for rectal cancer in 2000, atrial fibrillation, seizures, thrombocytopenia, congestive heart failure, myocardial infarction, coronary artery disease, GERD, TIA, anxiety, tobacco use. PAST SURGICAL HISTORY: Significant for colostomy and angioplasty. ALLERGIES: THE PATIENT HAS NO KNOWN ALLERGIES. MEDICATIONS AT HOME: Include phenytoin, metoprolol, Lasix, Lipitor, aspirin, Eliquis. PHYSICAL EXAMINATION GENERAL: The patient is in bed. VITAL SIGNS: The patient's temperature is 99, blood pressure is 120/70, respiratory rate was 20, and heart rate 98 to 99. HEENT: Examination of HEENT is unremarkable. NECK: Supple. LUNGS: Have decreased breath sounds. HEART: Normal S1, S2. ABDOMEN: Soft, nontender. LABORATORY DATA: Reveals the patient's white count is 4.1, hemoglobin of 8, platelets of 49, 86% granulocytosis. Coagulation is noted. Chemistries reveals the BUN of 26, creatinine of 1.1. The BNP is 4890. Two procalcitonins are negative. Stool for occult blood is positive. Microbiology reveals the blood cultures are negative. The sputum cultures are pending. The patient had a CAT scan of the chest, which was read by Dr. Somers, which revealed extensive infiltrate right upper lobe consistent with pneumonia, small bilateral pleural effusion, right greater than left. ASSESSMENT AND PLAN: This is an 82-year-old male with rectal cancer in 2000, atrial fibrillation, seizures, thrombocytopenia, congestive heart failure, coronary artery disease, myocardial infarction, gastroesophageal reflux disease, tobacco use, anxiety, admitted with gastrointestinal bleed and found to have community-acquired pneumonia, currently on doxycycline and cefepime pending blood culture and sputum culture. We will also request a methicillin-resistant Staphylococcus aureus screen. We will also request an human immunodeficiency virus test because of history of rectal cancer and we will follow closely with you pending methicillin-resistant Staphylococcus aureus screen, sputum culture, on cefepime and doxycycline for healthcare-associated pneumonia, we would recommend following the patient imaging resolution. If it does not resolve, we will need Pulmonary evaluation and bronchoscopy, rule out underlying malignancy. Jason Garvin MD [facility] # [id number]
[2018-07-16 07:14] LABS: BASO # 0.01 K/mm3 (0.0-2.0); BASO % 0.3 % (0.0-3.0); EOS # 0.1 (0.0-0.7); EOS % 3.1 % (1.5-5.0); GRAN # 2.59 (1.4-6.5); GRAN % 72.9 % (50.0-68.0); HEMOGLOBIN 8.6 g/dL (14.0-18.0); LYMPH # 0.5 (1.2-3.4); LYMPH % 15.2 % (22.0-35.0); MEAN CELL VOLUME 94.6 fl (80.0-105.0); MEAN CORPUSCULAR HEMOGLOBIN 30.8 pg (25.0-35.0); MEAN CORPUSCULAR HGB CONC 32.6 g/dl (31.0-37.0); MEAN PLATELET VOLUME 8.4 fl (7.0-11.0); MONO # 0.3 (0.1-0.6); MONO % 8.5 % (1.0-6.0); RBC 2.79 10^6/uL (3.5-6.1); RED CELL DISTRIBUTION WIDTH 16.5 % (11.5-14.5); WHITE BLOOD COUNT 3.6 10^3/ul (4.5-11.0)
[2018-07-16 07:21] LABS: PLATELET COUNT 42 10^3/uL (120.0-450.0)
--- NOTE | 2018-07-16 08:11 | CP.PCM.PN ---
Subjective - Date & Time of Evaluation Date of Evaluation: 07/16/18 Time of Evaluation: 06:40 - Subjective Subjective: Awake,alert, no distress, going for EGD Reason for consultation and follow up: Cardiac evaluation of Atrial fibrillation on Eliquis, admitted for GI bleeding, blood clots from colostomy bag, history of congestive heart failure, Seen and examined by me and Dr. Greenfield Objective - Vital Signs/Intake and Output Vital Signs (last 24 hours): Temp Pulse Resp BP Pulse Ox 98.8 F 94 H 18 125/60 94 L 07/16/18 06:00 07/16/18 06:00 07/16/18 06:00 07/16/18 06:00 07/16/18 06:00 Intake and Output: 07/16/18 07/16/18 06:59 18:59 Intake Total 1120 Output Total 1300 Balance -180 - Medications Medications: Current Medications Atorvastatin Calcium (Lipitor) 10 mg PO DIN [facility] Last Admin: 07/15/18 17:31 Dose: 10 mg Diltiazem HCl (Cardizem Cd) 360 mg PO DAILY [facility] Last Admin: 07/15/18 10:06 Dose: 360 mg Furosemide (Lasix) 40 mg PO 0800,1400 KD Cefepime HCl (Maxipime 1gm) 1 gm in 100 mls @ 100 mls/hr IVPB Q12 [facility]; Protocol Last Admin: 07/15/18 21:48 Dose: 100 mls/hr Doxycycline Hyclate 100 mg/ (Sodium Chloride) 100 mls @ 100 mls/hr IVPB Q12 [facility]; Protocol Last Admin: 07/15/18 21:48 Dose: 100 mls/hr Levalbuterol HCl (Xopenex) 0.63 mg IH [id number] [facility] Last Admin: 07/16/18 07:26 Dose: 0.63 mg Metoprolol Succinate (Toprol Xl) 25 mg PO BID [facility] Last Admin: 07/15/18 17:31 Dose: 25 mg Pantoprazole Sodium (Protonix Ec Tab) 40 mg PO DAILY [facility] Last Admin: 07/15/18 10:10 Dose: 40 mg Phenytoin Sodium (Dilantin) 100 mg PO TID [facility] Last Admin: 07/15/18 17:31 Dose: 100 mg - Labs Labs: 07/16/18 06:45 10/04/18 06:30 PT 12.5 SECONDS (9.4-12.5) 07/13/18 03:40 INR 1.09 07/13/18 03:40 APTT 29.1 Seconds (25.1-36.5) 07/13/18 03:40 - Constitutional Appears: Non-toxic, No Acute Distress - Head Exam Head Exam: NORMAL INSPECTION, NORMOCEPHALIC - Eye Exam Eye Exam: Normal appearance - ENT Exam ENT Exam: Mucous Membranes Dry - Respiratory Exam Respiratory Exam: Decreased Breath Sounds, Clear to Ausculation Bilateral, NOR MAL BREATHING PATTERN - Cardiovascular Exam Cardiovascular Exam: Irregular Rhythm, +S1, +S2 Additional comments: telemetry Aflutter 80-90's - GI/Abdominal Exam GI & Abdominal Exam: Soft, Normal Bowel Sounds Additional comments: colostomy bag - Extremities Exam Additional comments: less edema 1+ - Neurological Exam Neurological Exam: Alert, Awake, Oriented x3 - Psychiatric Exam Psychiatric exam: Normal Affect, Normal Mood - Skin Skin Exam: Dry, Normal Color, Warm Assessment and Plan - Assessment and Plan (Free Text) Assessment: A 62 year old male who came in to the ER due to blood clots from colostomy bag. History of rectal cancer with resection in 2001, with colostomy, atrial fibrillation on Eliquis. TIA,former smoker, anxiety,history of fall, hyperlipidemia, urinary frequency and retention. Low hemoglobin upon admission. Transfused 2 units of PRBC. Repeat H/H stable. Eliquis stopped.For EGD/colonoscopy today.Cleared for procedure, no evidence of ischemia, no evidence of heart failure. Moderate risk for procedure. Plan: For EGD/colonoscopy today No further bleeding from colostomy H/H stable Consider transfusing if below 8 Controlled heart rate-Atrial flutter 90's Controlled blood pressure On Lipitor 10 mg daily, Cardizem 360 mg daily, Lasix 40 mg BID, Toprol 25 mg daily, Dilantin 100 mg TID Continue current medications Continue current treatment Chart reviewed Will follow up Plan and treatment discussed with Dr. Greenfield
--- NOTE | 2018-07-16 08:21 | PN ---
DATE: 07/15/2018 This note is in addition to our nurse practitioner reported this morning. REASON FOR CONSULTATION: Decompensated congestive heart failure, atrial fibrillation, bleeding from stoma. SUBJECTIVE: The patient denies any chest pain, shortness of breath, or any palpitation. Feels a lot better. Yesterday, got some and Lasix was given. PLAN: We will change the Lasix to p.o. because the patient is complaining he cannot sleep at night. Though the leg swelling completely went down, shortness of breath improved. The patient has a history of chronic atrial flutter, on heart rate well controlled. If H and H remained stable and no further bleeding, consider restarting Eliquis. We will discuss with Dr. Fleming. As mentioned, we will change the Lasix to p.o. at 8 o'clock and 2 p.m. Yesterday, we gave 2 units of blood. We will repeat the blood workup in the morning and if no active bleeding, then we will start Eliquis. We will supplement potassium also 40 today. Thank you, Dr. Fleming, for providing us the opportunity in taking care of the patient, Roshan Hale. Gladis Greenfield MD
[2018-07-16] MEDS: Metoprolol Succinate 25 mg XL Tab PO SCH ×2 (10:40→18:07)
[2018-07-16] MEDS: diltiaZEM 180 mg/24 Hours CD Cap PO SCH (10:40)
[2018-07-16] MEDS: Cefepime 1gm in NS 100ml 1 GM/100 ML BAG IVPB SCH ×2 (10:40→23:43)
[2018-07-16] MEDS: Pantoprazole 40 mg EC Tab PO SCH (10:40)
[2018-07-16 12:57] LABS: PLATELET ESTIMATE LOW (NORMAL)
--- NOTE | 2018-07-16 13:31 | PN ---
DATE: 07/16/2018 SUBJECTIVE: The patient is an 82-year-old, seen and examined, lying in bed, seems to be comfortable. Stool for Hemoccult came out positive, being prepped for colonoscopy through the stoma today, offers no complaint of chest pain or shortness of breath. PHYSICAL EXAMINATION: VITAL SIGNS: He is afebrile, pulse 87, respirations 18, blood pressure 125/60. LUNGS: Bilateral fair airflow. No rhonchi or crackle. HEART: S1 and S2 audible. Irregular, rate controlled. ABDOMEN: Soft, nontender. No rebound. No guarding. Colostomy in place. NEUROLOGICAL: He is awake, alert, oriented, communicative. LABORATORY DATA: WBC 3.6, hemoglobin 8.6, hematocrit 26.4, platelets of 42. Chemistry: Procalcitonin 0.11. Stool for Hemoccult is positive. Blood cultures, urine cultures are negative. ASSESSMENT AND PLAN: 1. Right upper lobe infiltrate. 2. Congestive heart failure, improved, acute on chronic systolic. 3. Chronic atrial fibrillation. 4. Seizure disorder. 5. History of rectal tumor, status post abdominoperineal resection in the remote past and now has colostomy. 6. History of hypertension. So, plan is the patient is off of anticoagulants. He is n.p.o. to go for possible colonoscopy today; after that, we will make further recommendations according to colonoscopy report. Probably we will start him on Coumadin because the patient states he does not want to be on anticoagulant and does not have antidote and he does not mind to be followed in the office for his PT/INR. So after colonoscopy, we might start him on small dose of Coumadin. Tri Fleming MD
[2018-07-16] MEDS ORDERED: DiphenhydrAMINE 50 mg/ml Inj IVP ONE (15:15)
[2018-07-16] MEDS ORDERED: Propofol 10 mg/ml Inj (20 ML) ONE (16:00)
--- NOTE | 2018-07-16 16:11 | CP.PCM.PN ---
Subjective - Date & Time of Evaluation Date of Evaluation: 07/16/18 Time of Evaluation: 16:08 - Subjective Subjective: General Surgery Progress Note for Dr. Du This 82M was seen and examined this AM at bedside. No acute events overnight. He denies any chest pain, fevers, chills, or SOB. Going for upper and lower endoscopy this afternoon. Objective - Vital Signs/Intake and Output Vital Signs (last 24 hours): Temp Pulse Resp BP Pulse Ox 98.6 F 97 H 16 132/74 100 07/16/18 15:12 07/16/18 15:12 07/16/18 15:12 07/16/18 15:12 07/16/18 16:00 Intake and Output: 07/16/18 07/16/18 06:59 18:59 Intake Total 1120 0 Output Total 1300 Balance -180 0 - Medications Medications: Current Medications Atorvastatin Calcium (Lipitor) 10 mg PO DIN [facility] Last Admin: 07/15/18 17:31 Dose: 10 mg Diltiazem HCl (Cardizem Cd) 360 mg PO DAILY [facility] Last Admin: 07/16/18 10:40 Dose: 360 mg Furosemide (Lasix) 40 mg PO 0800,1400 [facility] Last Admin: 07/16/18 14:40 Dose: Not Given Cefepime HCl (Maxipime 1gm) 1 gm in 100 mls @ 100 mls/hr IVPB Q12 [facility]; Protocol Last Admin: 07/16/18 10:40 Dose: 100 mls/hr Doxycycline Hyclate 100 mg/ (Sodium Chloride) 100 mls @ 100 mls/hr IVPB Q12 [facility]; Protocol Last Admin: 07/16/18 10:40 Dose: 100 mls/hr Levalbuterol HCl (Xopenex) 0.63 mg IH [id number] [facility] Last Admin: 07/16/18 13:31 Dose: 0.63 mg Metoprolol Succinate (Toprol Xl) 25 mg PO BID [facility] Last Admin: 07/16/18 10:40 Dose: 25 mg Pantoprazole Sodium (Protonix Ec Tab) 40 mg PO DAILY [facility] Last Admin: 07/16/18 10:40 Dose: 40 mg Phenytoin Sodium (Dilantin) 100 mg PO TID [facility] Last Admin: 07/16/18 14:40 Dose: 100 mg - Labs Labs: 07/16/18 06:45 07/15/18 06:30 PT 12.5 SECONDS (9.4-12.5) 07/13/18 03:40 INR 1.09 07/13/18 03:40 APTT 29.1 Seconds (25.1-36.5) 07/13/18 03:40 - Constitutional Appears: Well, Non-toxic, No Acute Distress - Head Exam Head Exam: ATRAUMATIC, NORMOCEPHALIC - Eye Exam Eye Exam: Normal appearance - ENT Exam ENT Exam: Mucous Membranes Moist - Respiratory Exam Respiratory Exam: NORMAL BREATHING PATTERN. absent: Respiratory Distress - Cardiovascular Exam Cardiovascular Exam: RRR. absent: Tachycardia - GI/Abdominal Exam GI & Abdominal Exam: Soft. absent: Distended, Guarding, Tenderness Additional comments: Stoma patent, with parastomal hernia - Extremities Exam Extremities Exam: Normal Inspection - Neurological Exam Neurological Exam: Alert, Awake, Oriented x3 - Psychiatric Exam Psychiatric exam: Normal Affect, Normal Mood - Skin Skin Exam: Dry, Intact, Warm Assessment and Plan - Assessment and Plan (Free Text) Assessment: 82 year old male with history of rectal CA s/p resection with colostomy presenting with bleeding from stoma. Plan: - Monitor H & H - F/U GI recs Further recs by Dr. Florian Cardenas PGY3
[2018-07-16] MEDS ORDERED: Etomidate 20 mg/10ml Inj IV ONE (16:21)
--- NOTE | 2018-07-16 17:45 | CP.PCM.PN ---
Subjective - Date & Time of Evaluation Date of Evaluation: 07/16/18 Time of Evaluation: 08:25 - Subjective Subjective: No fevers, not in distress. Objective - Vital Signs/Intake and Output Vital Signs (last 24 hours): Temp Pulse Resp BP Pulse Ox 98.2 F 96 H 18 137/74 93 L 07/16/18 17:35 07/16/18 17:35 07/16/18 17:35 07/16/18 17:35 07/16/18 17:35 Intake and Output: 07/16/18 07/16/18 06:59 18:59 Intake Total 1120 250 Output Total 1300 Balance -180 250 - Medications Medications: Current Medications Atorvastatin Calcium (Lipitor) 10 mg PO DIN [facility] Last Admin: 07/16/18 17:00 Dose: Not Given Diltiazem HCl (Cardizem Cd) 360 mg PO DAILY [facility] Last Admin: 07/16/18 10:40 Dose: 360 mg Furosemide (Lasix) 40 mg PO 0800,1400 [facility] Last Admin: 07/16/18 14:40 Dose: Not Given Cefepime HCl (Maxipime 1gm) 1 gm in 100 mls @ 100 mls/hr IVPB Q12 [facility]; Protocol Last Admin: 07/16/18 10:40 Dose: 100 mls/hr Doxycycline Hyclate 100 mg/ (Sodium Chloride) 100 mls @ 100 mls/hr IVPB Q12 [facility]; Protocol Last Admin: 07/16/18 10:40 Dose: 100 mls/hr Sodium Chloride (Sodium Chloride 0.9%) 1,000 mls @ 100 mls/hr IV .Q10H [facility] Levalbuterol HCl (Xopenex) 0.63 mg IH [id number] [facility] Last Admin: 07/16/18 13:31 Dose: 0.63 mg Metoprolol Succinate (Toprol Xl) 25 mg PO BID [facility] Last Admin: 07/16/18 10:40 Dose: 25 mg Pantoprazole Sodium (Protonix Ec Tab) 40 mg PO DAILY [facility] Last Admin: 07/16/18 10:40 Dose: 40 mg Phenytoin Sodium (Dilantin) 100 mg PO TID [facility] Last Admin: 07/16/18 14:40 Dose: 100 mg - Labs Labs: 07/16/18 06:45 07/15/18 06:30 PT 12.5 SECONDS (9.4-12.5) 07/13/18 03:40 INR 1.09 07/13/18 03:40 APTT 29.1 Seconds (25.1-36.5) 07/13/18 03:40 - Constitutional Appears: Chronically Ill - Head Exam Head Exam: NORMAL INSPECTION - Respiratory Exam Respiratory Exam: Decreased Breath Sounds - Cardiovascular Exam Cardiovascular Exam: +S1, +S2 - GI/Abdominal Exam GI & Abdominal Exam: Soft. absent: Tenderness Assessment and Plan - Assessment and Plan (Free Text) Plan: Assessment HCAP rectal cancer atrial fibrillation GERD anxiety disorder chronic CHF CAD Plan continue Cefepime and Doxycycline day 2 pending final culture results
[2018-07-16] MEDS ORDERED: Potassium Chloride 20 mEq ER Tab PO ONE ×2 (18:25→22:30)
--- NOTE | 2018-07-16 23:01 | PN ---
DATE: 07/16/2018 REASON FOR THE CONSULTATION AND FOLLOWUP: Atrial fibrillation with rapid ventricular rate, bleeding from colostomy stoma. SUBJECTIVE: The patient is fairly stable now. Giving the IV Lasix for two days. After that, changed to p.o. Lasix. Lying flat on the bed, going for endoscopy today, status post two packed units of RBC blood was given, history of colon cancer, status post resection, bleeding from colostomy site. The patient is going for endoscopy. The patient is cleared from Cardiology point of view to go for surgery at moderate risk. Once the endoscopy done and colonoscopy done and found to be no active bleeding, we can consider restart Eliquis. We will follow with you. We will supplement potassium for 3.7. Continue Cardizem 360 and Lasix decreased to 40 and we will decrease to 40 mg from tomorrow. We will repeat SMA-7 in the morning. Thank you, Dr. Du/Dr. Fleming, for providing us the opportunity in taking care of Roshan Hale. Gladis Greenfield MD
[2018-07-17] MEDS: Levalbuterol 0.63 MG/3 ML Inhal Soln UD IH SCH ×4 (01:20→19:32)
[2018-07-17] MEDS: Sodium Chloride 0.9% 1,000 ML IV SCH ×3 (05:10→23:30)
[2018-07-17 06:47] LABS: HEMOGLOBIN 8.4 g/dL (14.0-18.0); MEAN CELL VOLUME 96.6 fl (80.0-105.0); MEAN CORPUSCULAR HEMOGLOBIN 31.8 pg (25.0-35.0); MEAN CORPUSCULAR HGB CONC 32.9 g/dl (31.0-37.0); MEAN PLATELET VOLUME 8.9 fl (7.0-11.0); RBC 2.64 10^6/uL (3.5-6.1); RED CELL DISTRIBUTION WIDTH 16.5 % (11.5-14.5); WHITE BLOOD COUNT 4.1 10^3/ul (4.5-11.0)
[2018-07-17 07:25] LABS: BLOOD UREA NITROGEN 28 mg/dL (7-21); CALCIUM 8.4 mg/dL (8.4-10.5); GFR NON-AFRICAN AMERICAN > 60
--- NOTE | 2018-07-17 07:40 | CP.PCM.PN ---
Subjective - Date & Time of Evaluation Date of Evaluation: 07/17/18 Time of Evaluation: 06:40 - Subjective Subjective: Awake,alert, no distress, denies pain Reason for consultation and follow up: Cardiac evaluation of Atrial fibrillation on Eliquis, admitted for GI bleeding, blood clots from colostomy bag, history of congestive heart failure, Seen and examined by me and Dr. Greenfield Objective - Vital Signs/Intake and Output Vital Signs (last 24 hours): Temp Pulse Resp BP Pulse Ox 98.2 F 93 H 18 137/74 93 L 07/16/18 17:35 07/17/18 06:00 07/16/18 17:35 07/16/18 18:07 07/16/18 17:35 Intake and Output: 07/17/18 07/17/18 06:59 18:59 Intake Total 660 Output Total 700 Balance -40 - Medications Medications: Current Medications Atorvastatin Calcium (Lipitor) 10 mg PO DIN [facility] Last Admin: 07/16/18 17:00 Dose: Not Given Diltiazem HCl (Cardizem Cd) 360 mg PO DAILY [facility] Last Admin: 07/16/18 10:40 Dose: 360 mg Furosemide (Lasix) 40 mg PO 0800,1400 [facility] Last Admin: 07/16/18 14:40 Dose: Not Given Cefepime HCl (Maxipime 1gm) 1 gm in 100 mls @ 100 mls/hr IVPB Q12 [facility]; Protocol Last Admin: 07/16/18 23:43 Dose: 100 mls/hr Doxycycline Hyclate 100 mg/ (Sodium Chloride) 100 mls @ 100 mls/hr IVPB Q12 [facility]; Protocol Last Admin: 07/16/18 23:44 Dose: 100 mls/hr Sodium Chloride (Sodium Chloride 0.9%) 1,000 mls @ 100 mls/hr IV .Q10H [facility] Last Admin: 07/17/18 05:10 Dose: 100 mls/hr Levalbuterol HCl (Xopenex) 0.63 mg IH [id number] [facility] Last Admin: 07/17/18 01:20 Dose: 0.63 mg Metoprolol Succinate (Toprol Xl) 25 mg PO BID [facility] Last Admin: 07/16/18 18:07 Dose: 25 mg Pantoprazole Sodium (Protonix Ec Tab) 40 mg PO DAILY [facility] Last Admin: 07/16/18 10:40 Dose: 40 mg Phenytoin Sodium (Dilantin) 100 mg PO TID [facility] Last Admin: 07/16/18 18:07 Dose: 100 mg - Labs Labs: 07/17/18 06:00 07/17/18 06:00 PT 12.5 SECONDS (9.4-12.5) 07/13/18 03:40 INR 1.09 07/13/18 03:40 APTT 29.1 Seconds (25.1-36.5) 07/13/18 03:40 - Constitutional Appears: Non-toxic, No Acute Distress - Head Exam Head Exam: NORMOCEPHALIC - Eye Exam Eye Exam: Normal appearance - ENT Exam ENT Exam: Mucous Membranes Moist - Respiratory Exam Respiratory Exam: Decreased Breath Sounds, Clear to Ausculation Bilateral, NORMAL BREATHING PATTERN - Cardiovascular Exam Cardiovascular Exam: Irregular Rhythm, REGULAR RHYTHM, +S1, +S2 Additional comments: Telemetry- atrial flutter - GI/Abdominal Exam GI & Abdominal Exam: Soft, Normal Bowel Sounds Additional comments: colostomy - Extremities Exam Extremities Exam: Full ROM, Normal Capillary Refill - Neurological Exam Neurological Exam: Alert, Awake, Oriented x3 - Psychiatric Exam Psychiatric exam: Normal Affect, Normal Mood - Skin Skin Exam: Intact, Normal Color, Warm Assessment and Plan - Assessment and Plan (Free Text) Assessment: A 62 year old male who came in to the ER due to blood clots from colostomy bag. History of rectal cancer with resection in 2001, with colostomy, atrial fibrillation on Eliquis. TIA,former smoker, anxiety,history of fall, hyperlip idemia, urinary frequency and retention. Low hemoglobin upon admission. Transfused 2 units of PRBC. Repeat H/H stable. Eliquis stopped.Post EGD/colonoscopy-Zenkers diverticulum,gastritis, Ileocecal valve polypoid mass,ascending colon polyp,diverticulitis. Plan: Post EGD/colonoscopy yesterday No further bleeding from colostomy H/H stable Controlled heart rate-Atrial flutter 90's Controlled blood pressure Will restart Eliquis On Lipitor 10 mg daily, Cardizem 360 mg daily, Lasix 40 mg BID, Toprol 25 mg daily, Dilantin 100 mg TID Continue current medications Continue current treatment Chart reviewed Will follow up Plan and treatment discussed with Dr. Greenfield
[2018-07-17] MEDS: Cefepime 1gm in NS 100ml 1 GM/100 ML BAG IVPB SCH ×2 (09:53→22:49)
[2018-07-17] MEDS: diltiaZEM 180 mg/24 Hours CD Cap PO SCH (09:54)
[2018-07-17] MEDS: Pantoprazole 40 mg EC Tab PO SCH (09:54)
[2018-07-17] MEDS: Metoprolol Succinate 25 mg XL Tab PO SCH ×2 (09:54→17:44)
--- NOTE | 2018-07-17 11:21 | CP.PCM.PN ---
<Prosper Cardenas - Last Filed: 07/17/18 11:19> Subjective - Date & Time of Evaluation Date of Evaluation: 07/17/18 Time of Evaluation: 11:19 - Subjective Subjective: General Surgery Progress Note for Dr. Du This 82M was seen and examined this AM at bedside. No acute events overnight. He denies any chest pain, fevers, chills, or SOB. Denies bloody BM. Path pending for upper and lower endoscopy. Objective - Vital Signs/Intake and Output Vital Signs (last 24 hours): Temp Pulse Resp BP Pulse Ox 98.2 F 111 H 18 143/82 93 L 07/16/18 17:35 07/17/18 09:54 07/16/18 17:35 07/17/18 09:54 07/16/18 17:35 Intake and Output: 07/17/18 07/17/18 06:59 18:59 Intake Total 660 Output Total 700 Balance -40 - Medications Medications: Current Medications Atorvastatin Calcium (Lipitor) 10 mg PO DIN [facility] Last Admin: 07/16/18 17:00 Dose: Not Given Diltiazem HCl (Cardizem Cd) 360 mg PO DAILY [facility] Last Admin: 07/17/18 09:54 Dose: 360 mg Furosemide (Lasix) 40 mg PO 0800,1400 [facility] Last Admin: 07/17/18 09:53 Dose: 40 mg Cefepime HCl (Maxipime 1gm) 1 gm in 100 mls @ 100 mls/hr IVPB Q12 [facility]; Protocol Last Admin: 07/17/18 09:53 Dose: 100 mls/hr Doxycycline Hyclate 100 mg/ (Sodium Chloride) 100 mls @ 100 mls/hr IVPB Q12 [facility]; Protocol Last Admin: 07/17/18 09:53 Dose: 100 mls/hr Sodium Chloride (Sodium Chloride 0.9%) 1,000 mls @ 100 mls/hr IV .Q10H [facility] Last Admin: 07/17/18 05:10 Dose: 100 mls/hr Levalbuterol HCl (Xopenex) 0.63 mg IH [id number] [facility] Last Admin: 07/17/18 08:59 Dose: 0.63 mg Metoprolol Succinate (Toprol Xl) 25 mg PO BID [facility] Last Admin: 07/17/18 09:54 Dose: 25 mg Pantoprazole Sodium (Protonix Ec Tab) 40 mg PO DAILY [facility] Last Admin: 07/17/18 09:54 Dose: 40 mg Phenytoin Sodium (Dilantin) 100 mg PO TID [facility] Last Admin: 07/17/18 09:53 Dose: 100 mg - Labs Labs: 07/17/18 06:00 07/17/18 06:00 PT 12.5 SECONDS (9.4-12.5) 07/13/18 03:40 INR 1.09 07/13/18 03:40 APTT 29.1 Seconds (25.1-36.5) 07/13/18 03:40 - Constitutional Appears: Well, Non-toxic, No Acute Distress - Head Exam Head Exam: ATRAUMATIC, NORMOCEPHALIC - Eye Exam Eye Exam: Normal appearance - ENT Exam ENT Exam: Mucous Membranes Moist - Respiratory Exam Respiratory Exam: NORMAL BREATHING PATTERN. absent: Respiratory Distress - Cardiovascular Exam Cardiovascular Exam: RRR. absent: Tachycardia - GI/Abdominal Exam GI & Abdominal Exam: Soft. absent: Distended, Guarding, Tenderness Additional comments: Stoma patent, with parastomal hernia - Extremities Exam Extremities Exam: Normal Inspection - Neurological Exam Neurological Exam: Alert, Awake, Oriented x3 - Psychiatric Exam Psychiatric exam: Normal Affect, Normal Mood - Skin Skin Exam: Dry, Intact, Warm Assessment and Plan - Assessment and Plan (Free Text) Assessment: 82 year old male with history of rectal CA s/p resection with colostomy presenting with bleeding from stoma. Plan: - Followup pathology on colonoscopy Further recs by Dr. Florian Cardenas PGY3 <Rocael Du - Last Filed: 07/17/18 20:16> Subjective - Subjective Subjective: Needs surgery/Cardiology diuresing Pt-On Lovenox-bowel prep Objective - Vital Signs/Intake and Output Vital Signs (last 24 hours): Temp Pulse Resp BP Pulse Ox 98 F 92 H 20 124/81 90 L 07/17/18 18:00 07/17/18 18:00 07/17/18 18:00 07/17/18 18:00 07/17/18 18:00 Intake and Output: 07/17/18 07/18/18 18:59 06:59 Intake Total 1140 Output Total 1100 Balance 40 - Medications Medications: Current Medications Atorvastatin Calcium (Lipitor) 10 mg PO DIN [facility] Last Admin: 07/17/18 18:15 Dose: 10 mg Diltiazem HCl (Cardizem Cd) 360 mg PO DAILY [facility] Last Admin: 07/17/18 09:54 Dose: 360 mg Enoxaparin Sodium (Lovenox) 60 mg SC Q12H [facility]; Protocol Last Admin: 07/17/18 12:25 Dose: 60 mg Furosemide (Lasix) 40 mg PO 0800,1400 [facility] Stop: 07/17/18 23:59 Last Admin: 07/17/18 14:31 Dose: 40 mg Furosemide (Lasix) 40 mg PO DAILY [facility] Cefepime HCl (Maxipime 1gm) 1 gm in 100 mls @ 100 mls/hr IVPB Q12 [facility]; Protocol Last Admin: 07/17/18 09:53 Dose: 100 mls/hr Doxycycline Hyclate 100 mg/ (Sodium Chloride) 100 mls @ 100 mls/hr IVPB Q12 [facility]; Protocol Last Admin: 07/17/18 09:53 Dose: 100 mls/hr Sodium Chloride (Sodium Chloride 0.9%) 1,000 mls @ 100 mls/hr IV .Q10H [facility] Last Admin: 07/17/18 17:43 Dose: 100 mls/hr Levalbuterol HCl (Xopenex) 0.63 mg IH [id number] [facility] Last Admin: 07/17/18 19:32 Dose: 0.63 mg Metoprolol Succinate (Toprol Xl) 25 mg PO BID [facility] Last Admin: 07/17/18 17:44 Dose: 25 mg Pantoprazole Sodium (Protonix Ec Tab) 40 mg PO DAILY [facility] Last Admin: 07/17/18 09:54 Dose: 40 mg Phenytoin Sodium (Dilantin) 100 mg PO TID [facility] Last Admin: 07/17/18 17:43 Dose: 100 mg - Labs Labs: 07/17/18 06:00 07/17/18 06:00 PT 12.5 SECONDS (9.4-12.5) 07/13/18 03:40 INR 1.09 07/13/18 03:40 APTT 29.1 Seconds (25.1-36.5) 07/13/18 03:40
[2018-07-17] MEDS: Enoxaparin 60 mg Syringe SC SCH ×2 (12:25→23:00)
--- NOTE | 2018-07-17 13:58 | CP.PCM.PN ---
<Neftaly Larsen - Last Filed: 07/17/18 13:50> Subjective - Date & Time of Evaluation Date of Evaluation: 07/17/18 Time of Evaluation: 13:50 - Subjective Subjective: 82 yo WM with h/o rectal CA s/p resection, pAF (on anticoagulation) with colostomy presenting with bleeding from stoma. # Lower GI Bleed: From pts colostomy site with risk factors of apixaban use and ASA 81 mg. Hgb not sig down from baseline and hemodynamically stable. There was a small clot on admission that could have been the source of bleed. Reassu ringly, not further bleeding noted since admission other than some hemoptysis which has also resolved. However, pt has now change his mind regarding endoscopic evaluation due to concerns of resuming anti-coagulation. # H/o Zenkers and food impaction #Colon polyp, 35cm at cecum Plan: - No signs of major GI bleeding - EGD 07/16/18 - Zenkers deverticulum - CSPY 07/16/18 - 35mm cecum polyp. - Follow pathology - Started full dose lovenox per cardiology - Monitor H&H - May benefit from pill capsule endoscopy Objective - Vital Signs/Intake and Output Vital Signs (last 24 hours): Temp Pulse Resp BP Pulse Ox 98.2 F 114 H 18 143/82 93 L 07/16/18 17:35 07/17/18 10:00 07/16/18 17:35 07/17/18 09:54 07/16/18 17:35 Intake and Output: 07/17/18 07/17/18 06:59 18:59 Intake Total 660 Output Total 700 Balance -40 - Medications Medications: Current Medications Atorvastatin Calcium (Lipitor) 10 mg PO DIN [facility] Last Admin: 07/16/18 17:00 Dose: Not Given Diltiazem HCl (Cardizem Cd) 360 mg PO DAILY [facility] Last Admin: 07/17/18 09:54 Dose: 360 mg Enoxaparin Sodium (Lovenox) 60 mg SC Q12H [facility]; Protocol Last Admin: 07/17/18 12:25 Dose: 60 mg Furosemide (Lasix) 40 mg PO 0800,1400 [facility] Stop: 07/17/18 23:59 Last Admin: 07/17/18 09:53 Dose: 40 mg Furosemide (Lasix) 40 mg PO DAILY [facility] Cefepime HCl (Maxipime 1gm) 1 gm in 100 mls @ 100 mls/hr IVPB Q12 [facility]; Protocol Last Admin: 07/17/18 09:53 Dose: 100 mls/hr Doxycycline Hyclate 100 mg/ (Sodium Chloride) 100 mls @ 100 mls/hr IVPB Q12 [facility]; Protocol Last Admin: 07/17/18 09:53 Dose: 100 mls/hr Sodium Chloride (Sodium Chloride 0.9%) 1,000 mls @ 100 mls/hr IV .Q10H [facility] Last Admin: 07/17/18 05:10 Dose: 100 mls/hr Levalbuterol HCl (Xopenex) 0.63 mg IH [id number] [facility] Last Admin: 07/17/18 08:59 Dose: 0.63 mg Metoprolol Succinate (Toprol Xl) 25 mg PO BID [facility] Last Admin: 07/17/18 09:54 Dose: 25 mg Pantoprazole Sodium (Protonix Ec Tab) 40 mg PO DAILY [facility] Last Admin: 07/17/18 09:54 Dose: 40 mg Phenytoin Sodium (Dilantin) 100 mg PO TID [facility] Last Admin: 07/17/18 09:53 Dose: 100 mg - Labs Labs: 07/17/18 06:00 07/17/18 06:00 PT 12.5 SECONDS (9.4-12.5) 07/13/18 03:40 INR 1.09 07/13/18 03:40 APTT 29.1 Seconds (25.1-36.5) 07/13/18 03:40 <Samson Hinton V - Last Filed: 07/17/18 20:44> Objective - Vital Signs/Intake and Output Vital Signs (last 24 hours): Temp Pulse Resp BP Pulse Ox 98 F 92 H 20 124/81 90 L 07/17/18 18:00 07/17/18 18:00 07/17/18 18:00 07/17/18 18:00 07/17/18 18:00 Intake and Output: 07/17/18 07/18/18 18:59 06:59 Intake Total 1140 Output Total 1100 Balance 40 - Medications Medications: Current Medications Atorvastatin Calcium (Lipitor) 10 mg PO DIN [facility] Last Admin: 07/17/18 18:15 Dose: 10 mg Diltiazem HCl (Cardizem Cd) 360 mg PO DAILY [facility] Last Admin: 07/17/18 09:54 Dose: 360 mg Enoxaparin Sodium (Lovenox) 60 mg SC Q12H [facility]; Protocol Last Admin: 07/17/18 12:25 Dose: 60 mg Furosemide (Lasix) 40 mg PO 0800,1400 [facility] Stop: 07/17/18 23:59 Last Admin: 07/17/18 14:31 Dose: 40 mg Furosemide (Lasix) 40 mg PO DAILY [facility] Cefepime HCl (Maxipime 1gm) 1 gm in 100 mls @ 100 mls/hr IVPB Q12 [facility]; Protocol Last Admin: 07/17/18 09:53 Dose: 100 mls/hr Doxycycline Hyclate 100 mg/ (Sodium Chloride) 100 mls @ 100 mls/hr IVPB Q12 [facility]; Protocol Last Admin: 07/17/18 09:53 Dose: 100 mls/hr Sodium Chloride (Sodium Chloride 0.9%) 1,000 mls @ 100 mls/hr IV .Q10H [facility] Last Admin: 07/17/18 17:43 Dose: 100 mls/hr Levalbuterol HCl (Xopenex) 0.63 mg IH [id number] [facility] Last Admin: 07/17/18 19:32 Dose: 0.63 mg Metoprolol Succinate (Toprol Xl) 25 mg PO BID [facility] Last Admin: 07/17/18 17:44 Dose: 25 mg Pantoprazole Sodium (Protonix Ec Tab) 40 mg PO DAILY [facility] Last Admin: 07/17/18 09:54 Dose: 40 mg Phenytoin Sodium (Dilantin) 100 mg PO TID [facility] Last Admin: 07/17/18 17:43 Dose: 100 mg - Labs Labs: 07/17/18 06:00 07/17/18 06:00 PT 12.5 SECONDS (9.4-12.5) 07/13/18 03:40 INR 1.09 07/13/18 03:40 APTT 29.1 Seconds (25.1-36.5) 07/13/18 03:40 Attending/Attestation - Attestation I have personally seen and examined this patient.: Yes I have fully participated in the care of the patient.: Yes I have reviewed all pertinent clinical information, including history, physical exam and plan: Yes Notes (Text): This is an addendum to GI progress report dictated by the GI Fellow.The patient was seen and examined earlier. Medical records, lab studies, imagings were reviewed. Last 24 hours events reviewed. Agreed with the above treatment plan as outlined in GI Fellow 's notes with the addition of the following Status post EGD colon yesterday EGD-Gastritis, small pharyngeal pouch Colonoscopy large polypoid lesion in IC valve region Needs surgery A.bryon on lovenox now 07/17/18 20:41
--- NOTE | 2018-07-17 16:11 | PN ---
DATE: 07/17/2018 SUBJECTIVE: The patient is 82 ears old, seen and examined, underwent transstomal colonoscopy and found to have villous adenoma in ascending colon, biopsy was taken. Seems to be villous adenoma as per Dr. Hinton. The patient was seen and examined, doing well. No nausea or vomiting. No diarrhea. Eating and tolerating. PHYSICAL EXAMINATION: VITAL SIGNS: The patient is afebrile. Pulse 111, respirations 18, and blood pressure 143/82. LUNGS: Bilateral fair airflow. No rhonchi or crackle. HEART: S1, S2 audible. ABDOMEN: Soft and nontender. No rebound, no guarding. NEUROLOGICAL: The patient is awake, alert, oriented, and communicative. LABORATORY DATA: hemoglobin 8.4, hematocrit 25, and platelet 59. Chemistry: Sodium 139, potassium 4.5, chloride 104, CO2 of 29. BUN 28, creatinine 1.1. Blood sugar of 98. ASSESSMENT: 1. Symptomatic anemia, status post 2 blood transfusions. 2. Hypertension. 3. Seizure disorder. 4. History of colostomy secondary to rectal cancer that was done many many years ago. 5. Gastrointestinal bleed secondary to probably villous adenoma. PLAN. Discussed with the patient at length, he might need surgical intervention. He is not sure, he wants to have a second opinion. Spoke to Dr. Hartman also. When he comes, he will discuss with the patient different pros and cons and then we will make further decision. We will advance his diet and follow up . Tri Fleming MD
--- NOTE | 2018-07-17 16:46 | CP.PCM.PN ---
Subjective - Date & Time of Evaluation Date of Evaluation: 07/17/18 Time of Evaluation: 13:00 - Subjective Subjective: No fevers, comfortable in bed, no cough currently, no nausea, no diarrhea, feeling better. Objective - Vital Signs/Intake and Output Vital Signs (last 24 hours): Temp Pulse Resp BP Pulse Ox 98.2 F 114 H 18 143/82 93 L 07/16/18 17:35 07/17/18 10:00 07/16/18 17:35 07/17/18 09:54 07/16/18 17:35 Intake and Output: 07/17/18 07/17/18 06:59 18:59 Intake Total 660 Output Total 700 Balance -40 - Medications Medications: Current Medications Atorvastatin Calcium (Lipitor) 10 [facility] PO DIN [facility] Last Admin: 07/16/18 17:00 Dose: Not Given Diltiazem HCl (Cardizem Cd) 360 mg PO DAILY [facility] Last Admin: 07/17/18 09:54 Dose: 360 mg Enoxaparin Sodium (Lovenox) 60 mg SC Q12H [facility]; Protocol Last Admin: 07/17/18 12:25 Dose: 60 mg Furosemide (Lasix) 40 mg PO 0800,1400 [facility] Stop: 07/17/18 23:59 Last Admin: 07/17/18 09:53 Dose: 40 mg Furosemide (Lasix) 40 mg PO DAILY [facility] Cefepime HCl (Maxipime 1gm) 1 gm in 100 mls @ 100 mls/hr IVPB Q12 [facility]; Protocol Last Admin: 07/17/18 09:53 Dose: 100 mls/hr Doxycycline Hyclate 100 mg/ (Sodium Chloride) 100 mls @ 100 mls/hr IVPB Q12 [facility]; Protocol Last Admin: 07/17/18 09:53 Dose: 100 mls/hr Sodium Chloride (Sodium Chloride 0.9%) 1,000 mls @ 100 mls/hr IV .Q10H [facility] Last Admin: 07/17/18 05:10 Dose: 100 mls/hr Levalbuterol HCl (Xopenex) 0.63 mg IH [id number] [facility] Last Admin: 07/17/18 08:59 Dose: 0.63 mg Metoprolol Succinate (Toprol Xl) 25 mg PO BID [facility] Last Admin: 07/17/18 09:54 Dose: 25 mg Pantoprazole Sodium (Protonix Ec Tab) 40 mg PO DAILY [facility] Last Admin: 07/17/18 09:54 Dose: 40 mg Phenytoin Sodium (Dilantin) 100 mg PO TID [facility] Last Admin: 07/17/18 09:53 Dose: 100 mg - Labs Labs: 07/17/18 06:00 07/17/18 06:00 PT 12.5 SECONDS (9.4-12.5) 07/13/18 03:40 INR 1.09 07/13/18 03:40 APTT 29.1 Seconds (25.1-36.5) 07/13/18 03:40 - Constitutional Appears: Non-toxic, No Acute Distress, Chronically Ill - Head Exam Head Exam: NORMAL INSPECTION - Respiratory Exam Respiratory Exam: Decreased Breath Sounds - Cardiovascular Exam Cardiovascular Exam: +S1, +S2 - GI/Abdominal Exam GI & Abdominal Exam: Soft. absent: Tenderness Assessment and Plan - Assessment and Plan (Free Text) Plan: Assessment HCAP, clinically improving rectal cancer atrial fibrillation GERD anxiety disorder chronic CHF CAD Plan continue Cefepime and Doxycycline day 3 pending final culture results, to complete 4-7 days of antibiotics
--- NOTE | 2018-07-17 20:05 | CP.PCM.PCO ---
Physician Communication Note - Physician Communication Note Physician Communication Note: Cecal tumor(2)/Afib/CHF-Diuresi ng-?RColectomy-stoma herniaRx
[2018-07-18] MEDS: Levalbuterol 0.63 MG/3 ML Inhal Soln UD IH SCH ×4 (01:12→19:37)
--- NOTE | 2018-07-18 06:59 | CP.PCM.PN ---
Subjective - Date & Time of Evaluation Date of Evaluation: 07/18/18 Time of Evaluation: 06:35 - Subjective Subjective: Awake,alert, no distress, denies pain Reason for consultation and follow up: Cardiac evaluation of Atrial fibrillation on Eliquis, admitted for GI bleeding, blood clots from colostomy bag, history of congestive heart failure, Seen and examined by me and Dr. Greenfield Objective - Vital Signs/Intake and Output Vital Signs (last 24 hours): Temp Pulse Resp BP Pulse Ox 98.5 F 99 H 19 137/83 92 L 07/18/18 00:01 07/18/18 05:27 07/18/18 00:01 07/18/18 00:01 07/18/18 00:01 Intake and Output: 07/17/18 07/18/18 18:59 06:59 Intake Total 1140 240 Output Total 1100 800 Balance 40 -560 - Medications Medications: Current Medications Atorvastatin Calcium (Lipitor) 10 mg PO DIN [facility] Last Admin: 07/17/18 18:15 Dose: 10 mg Diltiazem HCl (Cardizem Cd) 360 mg PO DAILY [facility] Last Admin: 07/17/18 09:54 Dose: 360 mg Enoxaparin Sodium (Lovenox) 60 mg SC Q12H [facility]; Protocol Last Admin: 07/17/18 23:00 Dose: 60 mg Furosemide (Lasix) 40 mg PO DAILY [facility] Cefepime HCl (Maxipime 1gm) 1 gm in 100 mls @ 100 mls/hr IVPB Q12 [facility]; Protocol Last Admin: 07/17/18 22:49 Dose: 100 mls/hr Doxycycline Hyclate 100 mg/ (Sodium Chloride) 100 mls @ 100 mls/hr IVPB Q12 [facility]; Protocol Last Admin: 07/17/18 22:51 Dose: 100 mls/hr Sodium Chloride (Sodium Chloride 0.9%) 1,000 mls @ 100 mls/hr IV .Q10H [facility] Last Admin: 07/17/18 23:30 Dose: Not Given Levalbuterol HCl (Xopenex) 0.63 mg IH [id number] [facility] Last Admin: 07/18/18 01:12 Dose: 0.63 mg Metoprolol Succinate (Toprol Xl) 25 mg PO BID [facility] Last Admin: 07/17/18 17:44 Dose: 25 mg Pantoprazole Sodium (Protonix Ec Tab) 40 mg PO DAILY [facility] Last Admin: 07/17/18 09:54 Dose: 40 mg Phenytoin Sodium (Dilantin) 100 mg PO TID [facility] Last Admin: 07/17/18 17:43 Dose: 100 mg - Labs Labs: 07/17/18 06:00 07/17/18 06:00 PT 12.5 SECONDS (9.4-12.5) 07/13/18 03:40 INR 1.09 07/13/18 03:40 APTT 29.1 Seconds (25.1-36.5) 07/13/18 03:40 - Constitutional Appears: Non-toxic, No Acute Distress - Head Exam Head Exam: NORMAL INSPECTION, NORMOCEPHALIC - Eye Exam Eye Exam: Normal appearance - ENT Exam ENT Exam: Mucous Membranes Moist - Respiratory Exam Respiratory Exam: Clear to Ausculation Bilateral, NORMAL BREATHING PATTERN - Cardiovascular Exam Cardiovascular Exam: Irregular Rhythm, +S1, +S2 Additional comments: Atrial flutter, controlled rate 80-90's - GI/Abdominal Exam GI & Abdominal Exam: Soft, Normal Bowel Sounds Additional comments: colostomy intact,no bleeding,no hemoptysis - Extremities Exam Extremities Exam: Full ROM, Normal Capillary Refill - Neurological Exam Neurological Exam: Alert, Awake, Oriented x3 - Psychiatric Exam Psychiatric exam: Normal Affect, Normal Mood - Skin Skin Exam: Dry, Normal Color, Warm Assessment and Plan - Assessment and Plan (Free Text) Assessment: A 62 year old male who came in to the ER due to blood clots from colostomy bag. History of rectal cancer with resection in 2001, with colostomy, atrial fibrillation on Eliquis. TIA,former smoker, anxiety,history of fall, hyperlipidemia, urinary frequency and retention. Low hemoglobin upon admission. Transfused 2 units of PRBC. Repeat H/H stable. Eliquis stopped.Post EGD/colonoscopy-Zenkers diverticulum,gastritis, Ileocecal valve polypoid mass,ascending colon polyp,diverticulitis.General surgery consulted, Awaiting pathology results. No bleeding from colostomy. Started Lovenox for anticoagulation Plan: Controlled heart rate-Atrial flutter 90's Started Lovenox for anticoagulation, Restart Eliquis pending decision for patient to go for surgery,awaiting biopsy result Controlled blood pressure Post EGD/colonoscopy,ascending colon polyp General surgery on consult, awaiting biopsy result No further bleeding from colostomy H/H stable On Lipitor 10 mg daily, Cardizem 360 mg daily, Lasix 40 mg BID, Toprol 25 mg daily, Dilantin 100 mg TID, Lovenox 60 mg every 12 hours. Continue current medications Continue current treatment Chart reviewed Will follow up Plan and treatment discussed with Dr. Greenfield
[2018-07-18 07:35] LABS: BASO # 0.01 K/mm3 (0.0-2.0); BASO % 0.3 % (0.0-3.0); EOS # 0.1 (0.0-0.7); EOS % 2.9 % (1.5-5.0); GRAN # 2.62 (1.4-6.5); GRAN % 74.8 % (50.0-68.0); HEMOGLOBIN 8.3 g/dL (14.0-18.0); LYMPH # 0.5 (1.2-3.4); LYMPH % 14.9 % (22.0-35.0); MEAN CELL VOLUME 96.6 fl (80.0-105.0); MEAN PLATELET VOLUME 9.5 fl (7.0-11.0); MONO # 0.3 (0.1-0.6); MONO % 7.1 % (1.0-6.0); RBC 2.68 10^6/uL (3.5-6.1); RED CELL DISTRIBUTION WIDTH 16.3 % (11.5-14.5); WHITE BLOOD COUNT 3.5 10^3/ul (4.5-11.0)
[2018-07-18 07:54] LABS: BLOOD UREA NITROGEN 27 mg/dL (7-21)
[2018-07-18 07:55] LABS: ALB/GLOB RATIO 1.2 (1.1-1.8); ALBUMIN 2.9 g/dL (3.0-4.8); ALT/SGPT 43 U/L (7-56); AST/SGOT 48 U/L (17-59); CALCIUM 8.4 mg/dL (8.4-10.5); GFR NON-AFRICAN AMERICAN > 60
[2018-07-18] MEDS: Sodium Chloride 0.9% 1,000 ML IV SCH (08:42)
[2018-07-18] MEDS: diltiaZEM 180 mg/24 Hours CD Cap PO SCH (09:44)
[2018-07-18] MEDS: Pantoprazole 40 mg EC Tab PO SCH (09:44)
[2018-07-18] MEDS: Metoprolol Succinate 25 mg XL Tab PO SCH ×2 (09:44→18:28)
[2018-07-18] MEDS: Enoxaparin 60 mg Syringe SC SCH ×2 (11:36→22:54)
[2018-07-18] MEDS: Cefepime 1gm in NS 100ml 1 GM/100 ML BAG IVPB SCH ×2 (11:38→21:42)
--- NOTE | 2018-07-18 13:02 | PN ---
DATE: 07/18/2018 SUBJECTIVE: The patient has no complaints of any chest pain. No shortness of breath, no headaches. PHYSICAL EXAMINATION: VITAL SIGNS: Temperature is 98.3, pulse is 104, blood pressure is 153/89, respirations 19. GENERAL: The patient is lying in bed, flat, comfortable. HEENT: No oral lesion. Anicteric sclerae. Moist mucosa. NECK: No JVD, adenopathy, or thyromegaly. CARDIOVASCULAR: S1 and S2, regular. No murmurs, rubs, or gallops. LUNGS: Clear to auscultation bilaterally. No wheeze, rales, or rhonchi. ABDOMEN: Bowel sounds are positive. Soft, nontender and nondistended. EXTREMITIES: No cyanosis, clubbing or edema. LABORATORY DATA: White count of 3.5, hemoglobin 8.3, creatinine is 1. ASSESSMENT: 1. Acute anemia secondary to blood loss, status post transfusion of two units of packed red blood cells. 2. Hypertension. 3. Seizure disorder. 4. History of rectal cancer with colostomy. 5. Gastrointestinal bleeding. 6. Hospital-acquired pneumonia. 7. Gastroesophageal reflux disease. PLAN: The patient is currently comfortable. He is on Dilantin for seizure disorder. The patient is on Cardizem for his hypertension. He is on Lasix daily. The patient is on Lipitor for dyslipidemia. He is on Lovenox for anticoagulation for the atrial fibrillation. He is also taking Cardizem for atrial fibrillation. He is on Maxipime for antibiotics. He had blood cultures that have been negative. The patient is on metoprolol. He is on a heart-healthy diet. We will order repeat blood work tomorrow, hemoglobin is 8.3. Arnie Pool MD
--- NOTE | 2018-07-18 13:16 | CP.PCM.PN ---
<Neftaly Larsen - Last Filed: 07/18/18 13:17> Subjective - Date & Time of Evaluation Date of Evaluation: 07/18/18 Time of Evaluation: 13:13 - Subjective Subjective: Patient complains of minor hemoptysis. Denies bleeding in ostomy. Objective - Vital Signs/Intake and Output Vital Signs (last 24 hours): Temp Pulse Resp BP Pulse Ox 97.1 F L 93 H 19 119/70 94 L 07/18/18 12:00 07/18/18 12:00 07/18/18 12:00 07/18/18 12:00 07/18/18 06:00 Intake and Output: 07/18/18 07/18/18 06:59 18:59 Intake Total 1440 300 Output Total 800 Balance 640 300 - Medications Medications: Current Medications Atorvastatin Calcium (Lipitor) 10 mg PO DIN [facility] Last Admin: 07/17/18 18:15 Dose: 10 mg Diltiazem HCl (Cardizem Cd) 360 mg PO DAILY [facility] Last Admin: 07/18/18 09:44 Dose: 360 mg Enoxaparin Sodium (Lovenox) 60 mg SC Q12H [facility]; Protocol Last Admin: 07/18/18 11:36 Dose: 60 mg Furosemide (Lasix) 40 mg PO DAILY [facility] Last Admin: 07/18/18 09:45 Dose: 40 mg Cefepime HCl (Maxipime 1gm) 1 gm in 100 mls @ 100 mls/hr IVPB Q12 [facility]; Protocol Last Admin: 07/18/18 11:38 Dose: 100 mls/hr Doxycycline Hyclate 100 mg/ (Sodium Chloride) 100 mls @ 100 mls/hr IVPB Q12 [facility]; Protocol Last Admin: 07/18/18 09:45 Dose: 100 mls/hr Levalbuterol HCl (Xopenex) 0.63 mg IH [id number] [facility] Last Admin: 07/18/18 07:47 Dose: 0.63 mg Metoprolol Succinate (Toprol Xl) 25 mg PO BID [facility] Last Admin: 07/18/18 09:44 Dose: 25 mg Pantoprazole Sodium (Protonix Ec Tab) 40 mg PO DAILY [facility] Last Admin: 07/18/18 09:44 Dose: 40 mg Phenytoin Sodium (Dilantin) 100 mg PO TID [facility] Last Admin: 07/18/18 09:44 Dose: 100 mg - Labs Labs: 07/18/18 06:30 07/18/18 06:30 PT 12.5 SECONDS (9.4-12.5) 07/13/18 03:40 INR 1.09 07/13/18 03:40 APTT 29.1 Seconds (25.1-36.5) 07/13/18 03:40 - Constitutional Appears: Non-toxic, No Acute Distress - Head Exam Head Exam: NORMAL INSPECTION - Eye Exam Eye Exam: Normal appearance - ENT Exam ENT Exam: Normal Exam - Respiratory Exam Respiratory Exam: Clear to Ausculation Bilateral, NORMAL BREATHING PATTERN - Cardiovascular Exam Cardiovascular Exam: REGULAR RHYTHM, +S1, +S2 - GI/Abdominal Exam GI & Abdominal Exam: Soft, Normal Bowel Sounds. absent: Tenderness - Extremities Exam Extremities Exam: Normal Capillary Refill, Normal Inspection - Neurological Exam Neurological Exam: Alert, Awake - Psychiatric Exam Psychiatric exam: Normal Affect, Normal Mood - Skin Skin Exam: Dry, Intact Assessment and Plan - Assessment and Plan (Free Text) Assessment: 82 yo WM with h/o rectal CA s/p resection, pAF (on anticoagulation) with colostomy presenting with bleeding from stoma. # Lower GI Bleed: From pts colostomy site with risk factors of apixaban use and ASA 81 mg. Hgb not sig down from baseline and hemodynamically stable. There was a small clot on admission that could have been the source of bleed. Reassuringly, not further bleeding noted since admission other than some hemoptysis which has also resolved. However, pt has now change his mind regarding endoscopic evaluation due to concerns of resuming anti-coagulation. # H/o Zenkers and food impaction #Colon polyp, 35cm at cecum #Hemoptysis Plan: - No signs of major GI bleeding - EGD 07/16/18 - Zenkers deverticulum - CSPY 07/16/18 - 35mm cecum polyp. - Follow pathology - Started full dose lovenox per cardiology now with mild hemoptysis. Hx COPD and recent PNA. Defer to primary and pulm. - Monitor H&H - surgical planning, possible right hemicolectomy <Jamaal,Kovil V - Last Filed: 07/18/18 21:20> Objective - Vital Signs/Intake and Output Vital Signs (last 24 hours): Temp Pulse Resp BP Pulse Ox 98.2 F 82 19 142/74 94 L 07/18/18 17:48 07/18/18 18:28 07/18/18 17:48 07/18/18 18:28 07/18/18 06:00 Intake and Output: 07/18/18 07/19/18 18:59 06:59 Intake Total 300 Balance 300 - Medications Medications: Current Medications Atorvastatin Calcium (Lipitor) 10 mg PO DIN [facility] Last Admin: 07/18/18 18:28 Dose: 10 mg Diltiazem HCl (Cardizem Cd) 360 mg PO DAILY [facility] Last Admin: 07/18/18 09:44 Dose: 360 mg Enoxaparin Sodium (Lovenox) 60 mg SC Q12H [facility]; Protocol Last Admin: 07/18/18 11:36 Dose: 60 mg Furosemide (Lasix) 40 mg PO DAILY [facility] Last Admin: 07/18/18 09:45 Dose: 40 mg Cefepime HCl (Maxipime 1gm) 1 gm in 100 mls @ 100 mls/hr IVPB Q12 [facility]; Protocol Last Admin: 07/18/18 11:38 Dose: 100 mls/hr Doxycycline Hyclate 100 mg/ (Sodium Chloride) 100 mls @ 100 mls/hr IVPB Q12 [facility]; Protocol Last Admin: 07/18/18 09:45 Dose: 100 mls/hr Levalbuterol HCl (Xopenex) 0.63 mg IH [id number] [facility] Last Admin: 07/18/18 19:37 Dose: 0.63 mg Metoprolol Succinate (Toprol Xl) 25 mg PO BID [facility] Last Admin: 07/18/18 18:28 Dose: 25 mg Pantoprazole Sodium (Protonix Ec Tab) 40 mg PO DAILY [facility] Last Admin: 07/18/18 09:44 Dose: 40 mg Phenytoin Sodium (Dilantin) 100 mg PO TID [facility] Last Admin: 07/18/18 18:28 Dose: 100 mg - Labs Labs: 07/18/18 06:30 07/18/18 06:30 PT 12.5 SECONDS (9.4-12.5) 07/13/18 03:40 INR 1.09 07/13/18 03:40 APTT 29.1 Seconds (25.1-36.5) 07/13/18 03:40 Attending/Attestation - Attestation I have personally seen and examined this patient.: Yes I have fully participated in the care of the patient.: Yes I have reviewed all pertinent clinical information, including history, physical exam and plan: Yes Notes (Text): This is an addendum to GI progress report dictated by the GI Fellow.The patient was seen and examined earlier. Medical records, lab studies, imagings were reviewed. Last 24 hours events reviewed. 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
--- NOTE | 2018-07-18 14:44 | CP.PCM.PN ---
Subjective - Date & Time of Evaluation Date of Evaluation: 07/18/18 Time of Evaluation: 13:25 - Subjective Subjective: Comfortable, afebrile. Objective - Vital Signs/Intake and Output Vital Signs (last 24 hours): Temp Pulse Resp BP Pulse Ox 98.3 F 104 H 19 153/89 H 94 L 07/18/18 06:00 07/18/18 06:00 07/18/18 06:00 07/18/18 06:00 07/18/18 06:00 Intake and Output: 07/18/18 07/18/18 06:59 18:59 Intake Total 1440 Output Total 800 Balance 640 - Medications Medications: Current Medications Atorvastatin Calcium (Lipitor) 10 mg PO DIN [facility] Last Admin: 07/17/18 18:15 Dose: 10 mg Diltiazem HCl (Cardizem Cd) 360 mg PO DAILY [facility] Last Admin: 07/17/18 09:54 Dose: 360 mg Enoxaparin Sodium (Lovenox) 60 mg SC Q12H [facility]; Protocol Last Admin: 07/17/18 23:00 Dose: 60 mg Furosemide (Lasix) 40 mg PO DAILY [facility] Cefepime HCl (Maxipime 1gm) 1 gm in 100 mls @ 100 mls/hr IVPB Q12 [facility]; Protocol Last Admin: 07/17/18 22:49 Dose: 100 mls/hr Doxycycline Hyclate 100 mg/ (Sodium Chloride) 100 mls @ 100 mls/hr IVPB Q12 [facility]; Protocol Last Admin: 07/17/18 22:51 Dose: 100 mls/hr Sodium Chloride (Sodium Chloride 0.9%) 1,000 mls @ 100 mls/hr IV .Q10H [facility] Last Admin: 07/17/18 23:30 Dose: Not Given Levalbuterol HCl (Xopenex) 0.63 mg IH [id number] [facility] Last Admin: 07/18/18 07:47 Dose: 0.63 mg Metoprolol Succinate (Toprol Xl) 25 mg PO BID [facility] Last Admin: 07/17/18 17:44 Dose: 25 mg Pantoprazole Sodium (Protonix Ec Tab) 40 mg PO DAILY [facility] Last Admin: 07/17/18 09:54 Dose: 40 mg Phenytoin Sodium (Dilantin) 100 mg PO TID [facility] Last Admin: 07/17/18 17:43 Dose: 100 mg - Labs Labs: 07/18/18 06:30 07/18/18 06:30 PT 12.5 SECONDS (9.4-12.5) 07/13/18 03:40 INR 1.09 07/13/18 03:40 APTT 29.1 Seconds (25.1-36.5) 07/13/18 03:40 - Constitutional Appears: Chronically Ill - Head Exam Head Exam: NORMAL INSPECTION - Respiratory Exam Respiratory Exam: Decreased Breath Sounds - Cardiovascular Exam Cardiovascular Exam: +S1, +S2 - GI/Abdominal Exam GI & Abdominal Exam: Soft. absent: Tenderness Assessment and Plan - Assessment and Plan (Free Text) Plan: Assessment HCAP, clinically improving rectal cancer atrial fibrillation GERD anxiety disorder chronic CHF CAD Plan continue Cefepime and Doxycycline day 4; cultures are negative; to complete 4-7 days of antibiotics
[2018-07-19] MEDS: Levalbuterol 0.63 MG/3 ML Inhal Soln UD IH SCH ×4 (01:28→19:35)
[2018-07-19 06:32] LABS: HEMOGLOBIN 8.3 g/dL (14.0-18.0); MEAN CELL VOLUME 97.4 fl (80.0-105.0); MEAN CORPUSCULAR HEMOGLOBIN 31.1 pg (25.0-35.0); MEAN CORPUSCULAR HGB CONC 31.9 g/dl (31.0-37.0); MEAN PLATELET VOLUME 8.9 fl (7.0-11.0); RBC 2.67 10^6/uL (3.5-6.1); RED CELL DISTRIBUTION WIDTH 16.6 % (11.5-14.5); WHITE BLOOD COUNT 3.3 10^3/ul (4.5-11.0)
[2018-07-19 07:22] LABS: ALB/GLOB RATIO 1.2 (1.1-1.8); ALBUMIN 2.8 g/dL (3.0-4.8); ALT/SGPT 44 U/L (7-56); AST/SGOT 58 U/L (17-59); BLOOD UREA NITROGEN 29 mg/dL (7-21); CALCIUM 8.4 mg/dL (8.4-10.5); GFR NON-AFRICAN AMERICAN > 60
--- NOTE | 2018-07-19 08:02 | CP.PCM.PN ---
Subjective - Date & Time of Evaluation Date of Evaluation: 07/19/18 Time of Evaluation: 06:50 - Subjective Subjective: Awake,alert, no distress, denies pain, small hemoptysis yesterday Reason for consultation and follow up: Cardiac evaluation of Atrial fibrillation on Eliquis, admitted for GI bleeding, blood clots from colostomy bag, history of congestive heart failure, Seen and examined by me and Dr. Greenfield Objective - Vital Signs/Intake and Output Vital Signs (last 24 hours): Temp Pulse Resp BP Pulse Ox 98.2 F 82 19 142/74 94 L 07/18/18 17:48 07/18/18 18:28 07/18/18 17:48 07/18/18 18:28 07/18/18 06:00 Intake and Output: 07/19/18 07/19/18 06:59 18:59 Intake Total 200 Output Total 700 Balance -500 - Medications Medications: Current Medications Atorvastatin Calcium (Lipitor) 10 mg PO DIN [facility] Last Admin: 07/18/18 18:28 Dose: 10 mg Diltiazem HCl (Cardizem Cd) 360 mg PO DAILY [facility] Last Admin: 07/18/18 09:44 Dose: 360 mg Enoxaparin Sodium (Lovenox) 60 mg SC Q12H [facility]; Protocol Last Admin: 07/18/18 22:54 Dose: 60 mg Furosemide (Lasix) 40 mg PO DAILY [facility] Last Admin: 07/18/18 09:45 Dose: 40 mg Cefepime HCl (Maxipime 1gm) 1 gm in 100 mls @ 100 mls/hr IVPB Q12 [facility]; Protocol Last Admin: 07/18/18 21:42 Dose: 100 mls/hr Doxycycline Hyclate 100 mg/ (Sodium Chloride) 100 mls @ 100 mls/hr IVPB Q12 [facility]; Protocol Last Admin: 07/18/18 22:52 Dose: 100 mls/hr Levalbuterol HCl (Xopenex) 0.63 mg IH [id number] [facility] Last Admin: 07/19/18 01:28 Dose: 0.63 mg Metoprolol Succinate (Toprol Xl) 25 mg PO BID [facility] Last Admin: 07/18/18 18:28 Dose: 25 mg Pantoprazole Sodium (Protonix Ec Tab) 40 mg PO DAILY [facility] Last Admin: 07/18/18 09:44 Dose: 40 mg Phenytoin Sodium (Dilantin) 100 mg PO TID [facility] Last Admin: 07/18/18 18:28 Dose: 100 mg - Labs Labs: 07/19/18 06:10 07/19/18 06:10 PT 12.5 SECONDS (9.4-12.5) 07/13/18 03:40 INR 1.09 07/13/18 03:40 APTT 29.1 Seconds (25.1-36.5) 07/13/18 03:40 - Constitutional Appears: Non-toxic, No Acute Distress - Head Exam Head Exam: NORMAL INSPECTION, NORMOCEPHALIC - Eye Exam Eye Exam: Normal appearance - ENT Exam ENT Exam: Mucous Membranes Moist - Respiratory Exam Respiratory Exam: Clear to Ausculation Bilateral, NORMAL BREATHING PATTERN - Cardiovascular Exam Cardiovascular Exam: Irregular Rhythm, +S1, +S2 - GI/Abdominal Exam GI & Abdominal Exam: Soft, Normal Bowel Sounds Additional comments: colostomy, no bleeding - Exam Additional comments: urinal - Neurological Exam Neurological Exam: Alert, Awake, Oriented x3 - Psychiatric Exam Psychiatric exam: Normal Affect, Normal Mood - Skin Skin Exam: Dry, Normal Color, Warm Assessment and Plan - Assessment and Plan (Free Text) Assessment: A 62 year old male who came in to the ER due to blood clots from colostomy bag. History of rectal cancer with resection in 2001, with colostomy, atrial fi brillation on Eliquis. TIA,former smoker, anxiety,history of fall, hyperlipidemia, urinary frequency and retention. Low hemoglobin upon admission. Transfused 2 units of PRBC. Repeat H/H stable. Eliquis stopped.Post EGD/colonoscopy-Zenkers diverticulum,gastritis, Ileocecal valve polypoid mass,ascending colon polyp,diverticulitis.General surgery consulted, Awaiting pathology results. No bleeding from colostomy. Started Lovenox for anticoagulation. Minimal hemoptysis yesterday, if persist and progresses, will discontinue Lovenox. Plan: Episode of minimal hemoptysis yesterday, will monitor and if it persist and progresses, will discontinue Lovenox. Controlled heart rate-Atrial flutter 90's Started Lovenox for anticoagulation, Restart Eliquis pending decision for patient to go for surgery,awaiting biopsy result Controlled blood pressure Controlled heart rate-80's Post EGD/colonoscopy,ascending colon polyp General surgery on consult, awaiting biopsy result No further bleeding from colostomy H/H stable On Lipitor 10 mg daily, Cardizem 360 mg daily, Lasix 40 mg BID, Toprol 25 mg daily, Dilantin 100 mg TID, Lovenox 60 mg every 12 hours. Continue current medications Continue current treatment Chart reviewed Will follow up Plan and treatment discussed with Dr. Greenfield
--- NOTE | 2018-07-19 08:27 | PN ---
DATE: 07/17/2018 This note is an addition to the note dictated this morning, progress note, by nurse practitioner, Evangelina Mcarthur. SUBJECTIVE: The patient denies any chest pain, shortness of breath, or any palpitations. History of chronic atrial fibrillation, on Eliquis. Admitted with GI bleed, blood clot in the ostomy. Patient underwent yesterday colonoscopy, possible chronic recurrent malignancy. We will start Lovenox for now for atrial fibrillation until the patient is ready to go for surgery. Patient had recent cardiac workup as mentioned in my consultation on 07/13/2018, and cleared at that time for AAA repair. Ejection fraction 55% dated 02/13/2018, and stress test on 02/26/2018, which was negative for ischemia. moderate to high risk for underlying comorbidity for chronic rejection. Continue gentle diuretics and we will change to p.o. Continue beta-tammy and continue Cardizem, and we will discontinue anticoagulation that the patient was on Eliquis. We will switch to Lovenox 1 mg per kg every 2 hours until the decision is made for colectomy and after that we can put back on Eliquis. We will decrease Lasix to p.o. 40 from tomorrow. I will put furosemide 40 mg daily from tomorrow. I have changed from b.i.d. to 40 once a day and start Lovenox 1 mg/kg every 2 hours for AFib. Monitor H and H. If the patient can tolerate, we will continue anticoagulation until the patient goes for surgery. I discussed with Dr. Hartman yesterday. Thank you, Dr. Hartman for providing us the opportunity in taking care of the patient, Roshan Hale. Gladis Greenfield MD
--- NOTE | 2018-07-19 08:37 | CP.PCM.PN ---
<Rio Quiroz - Last Filed: 07/19/18 10:17> Subjective - Date & Time of Evaluation Date of Evaluation: 07/19/18 Time of Evaluation: 07:40 - Subjective Subjective: PGY-4 GI Fellow Prog Note Pt lying in bed when seen this AM. States no further hemoptysis, denied signs of bleeding from ostomy. 5 point ROS negative other than stated above Objective - Vital Signs/Intake and Output Vital Signs (last 24 hours): Temp Pulse Resp BP Pulse Ox 98.5 F 70 20 138/67 98 07/19/18 08:24 07/19/18 08:24 07/19/18 08:24 07/19/18 08:24 07/19/18 08:24 Intake and Output: 07/19/18 07/19/18 06:59 18:59 Intake Total 200 Output Total 700 Balance -500 - Medications Medications: Current Medications Atorvastatin Calcium (Lipitor) 10 mg PO DIN [facility] Last Admin: 07/18/18 18:28 Dose: 10 mg Diltiazem HCl (Cardizem Cd) 360 mg PO DAILY [facility] Last Admin: 07/18/18 09:44 Dose: 360 mg Enoxaparin Sodium (Lovenox) 60 mg SC Q12H [facility]; Protocol Last Admin: 07/18/18 22:54 Dose: 60 mg Furosemide (Lasix) 40 mg PO DAILY [facility] Last Admin: 07/18/18 09:45 Dose: 40 mg Cefepime HCl (Maxipime 1gm) 1 gm in 100 mls @ 100 mls/hr IVPB Q12 [facility]; Protocol Last Admin: 07/18/18 21:42 Dose: 100 mls/hr Doxycycline Hyclate 100 mg/ (Sodium Chloride) 100 mls @ 100 mls/hr IVPB Q12 S ; Protocol Last Admin: 07/18/18 22:52 Dose: 100 mls/hr Levalbuterol HCl (Xopenex) 0.63 mg IH [id number] [facility] Last Admin: 07/19/18 08:30 Dose: 0.63 mg Metoprolol Succinate (Toprol Xl) 25 mg PO BID [facility] Last Admin: 07/18/18 18:28 Dose: 25 mg Pantoprazole Sodium (Protonix Ec Tab) 40 mg PO DAILY [facility] Last Admin: 07/18/18 09:44 Dose: 40 mg Phenytoin Sodium (Dilantin) 100 mg PO TID [facility] Last Admin: 07/18/18 18:28 Dose: 100 mg - Labs Labs: 07/19/18 06:10 07/19/18 06:10 PT 12.5 SECONDS (9.4-12.5) 07/13/18 03:40 INR 1.09 07/13/18 03:40 APTT 29.1 Seconds (25.1-36.5) 07/13/18 03:40 - Constitutional Appears: No Acute Distress, Chronically Ill - Head Exam Head Exam: ATRAUMATIC, NORMAL INSPECTION - Eye Exam Eye Exam: EOMI. absent: Conjunctival injection, Scleral icterus - ENT Exam ENT Exam: Mucous Membranes Moist. absent: Mucous Membranes Dry - Respiratory Exam Respiratory Exam: NORMAL BREATHING PATTERN. absent: Accessory Muscle Use, Respiratory Distress - GI/Abdominal Exam GI & Abdominal Exam: Soft, Normal Bowel Sounds. absent: Bruit, Distended, Firm, Guarding, Rigid, Tenderness, Mass, Organomegaly, Pulsatile Mass, Rebound Additional comments: + Colostomy bag Assessment and Plan - Assessment and Plan (Free Text) Assessment: 82 yo WM with h/o rectal CA s/p resection, pAF (on anticoagulation) with colostomy presenting with bleeding from stoma. #Colon polyp, 35mm at cecum: 07/16/18 CSPY. Await path results. May need R otis colectomy. # Lower GI Bleed: From pts colostomy site with risk factors of apixaban use and ASA 81 mg. Hgb not sig down from baseline and hemodynamically stable. There was a small clot on admission that could have been the source of bleed. Reassuringly, not further bleeding noted since admission other than some hemoptysis which has also resolved. However, pt has now change his mind regarding endoscopic evaluation due to concerns of resuming anti-coagulation. # H/o Zenkers and food impaction: Seen again on 07/16 w/o food impaction #Hemoptysis: In setting of anticoagulation; none further. Plan: - Follow up pathology - Started on full dose enoxaparin per Cardiology with intermittent hemoptysis. Defer to primary/consultants. - Monitor H&H - surgical planning, possible right hemicolectomy Pt seen and examined with Dr. Hinton. Please see attestation for further recs/changes. <Geovany Hintonvil V - Last Filed: 07/19/18 19:25> Objective - Vital Signs/Intake and Output Vital Signs (last 24 hours): Temp Pulse Resp BP Pulse Ox 97.6 F 79 20 130/68 98 07/19/18 16:52 07/19/18 17:52 07/19/18 16:52 07/19/18 17:52 07/19/18 16:52 Intake and Output: 07/19/18 07/20/18 18:59 06:59 Intake Total 1560 Output Total 1100 Balance 460 - Medications Medications: Current Medications Atorvastatin Calcium (Lipitor) 10 mg PO DIN [facility] Last Admin: 07/19/18 17:52 Dose: 10 mg Diltiazem HCl (Cardizem Cd) 360 mg PO DAILY [facility] Last Admin: 07/19/18 10:11 Dose: 360 mg Doxycycline Hyclate (Doryx) 100 mg PO Q12 [facility] Stop: 07/24/18 11:58 Enoxaparin Sodium (Lovenox) 60 mg SC Q12H [facility]; Protocol Last Admin: 07/19/18 13:53 Dose: Not Given Furosemide (Lasix) 40 mg PO DAILY [facility] Last Admin: 07/19/18 10:11 Dose: 40 mg Hydromorphone HCl (Dilaudid) 0.5 mg IVP Q4H PRN PRN Reason: Pain, severe (8-10) Cefepime HCl (Maxipime 1gm) 1 gm in 100 mls @ 100 mls/hr IVPB Q12 [facility]; Protocol Last Admin: 07/19/18 10:13 Dose: 100 mls/hr Ketorolac Tromethamine (Toradol) 15 mg IVP Q6 [facility] Levalbuterol HCl (Xopenex) 0.63 mg IH [id number] [facility] Last Admin: 07/19/18 13:57 Dose: Not Given Metoprolol Succinate (Toprol Xl) 25 mg PO BID [facility] Last Admin: 07/19/18 17:52 Dose: 25 mg Oxycodone/Acetaminophen (Percocet 5/325 Mg Tab) 1 tab PO Q4H PRN PRN Reason: Pain, moderate (4-7) Stop: 07/22/18 15:18 Pantoprazole Sodium (Protonix Ec Tab) 40 mg PO DAILY [facility] Last Admin: 07/19/18 10:12 Dose: 40 mg Phenytoin Sodium (Dilantin) 100 mg PO TID [facility] Last Admin: 07/19/18 17:52 Dose: 100 mg - Labs Labs: 07/19/18 06:10 07/19/18 06:10 PT 12.5 SECONDS (9.4-12.5) 07/13/18 03:40 INR 1.09 07/13/18 03:40 APTT 29.1 Seconds (25.1-36.5) 07/13/18 03:40 Attending/Attestation - Attestation I have personally seen and examined this patient.: Yes I have fully participated in the care of the patient.: Yes I have reviewed all pertinent clinical information, including history, physical exam and plan: Yes Notes (Text): This is an addendum to GI progress report dictated by the GI Fellow.The patient was seen and examined earlier. Medical records, lab studies, imagings were reviewed. Last 24 hours events reviewed. Agreed with the above treatment plan as outlined in GI Fellow 's notes with the addition of the following Awaiting for Path On lovenox Followup Hb Surgical evaluation 07/19/18 19:24
--- NOTE | 2018-07-19 09:10 | PN ---
DATE: 07/18/2018 This note is an addendum to the initial note dictated by the nurse practitioner, Evangelina Mcarthur. REASON FOR CONSULTATION AND FOLLOWUP: Atrial fibrillation with rapid rate, bleeding from colostomy stoma, possible new malignant polyp in colon, needs resection. SUBJECTIVE: The patient denies any chest pain, shortness of breath, or any palpitation. Feels okay. Hemodynamically stable. Heart rate is maintained and blood pressure is maintained. RECOMMENDATION: Discontinue IV fluid, increase nutrition support. Continue enoxaparin, Lovenox for atrial fibrillation. Once Surgery's decision is made or surgery done, then resume back patient's baseline anticoagulation. The patient was on Eliquis 5 mg b.i.d. Discussed with the patient. The patient is cleared for surgery with [id number] risk because of underlying comorbidity, though patient had a noninvasive workup recently, preop for endovascular stent and both the stress tests are negative. We will follow with you. Interim, continue Cardizem, continue beta-tammy. We will discontinue telemetry. Gladis Greenfield MD
[2018-07-19] MEDS: diltiaZEM 180 mg/24 Hours CD Cap PO SCH (10:11)
[2018-07-19] MEDS: Pantoprazole 40 mg EC Tab PO SCH (10:12)
[2018-07-19] MEDS: Cefepime 1gm in NS 100ml 1 GM/100 ML BAG IVPB SCH ×2 (10:13→21:41)
[2018-07-19] MEDS: Metoprolol Succinate 25 mg XL Tab PO SCH ×2 (10:14→17:52)
--- NOTE | 2018-07-19 12:12 | CP.PCM.PCO ---
Physician Communication Note - Physician Communication Note Physician Communication Note: Await Path/Needs [facility] diuresis-P RBC-Platelets-?Entresto rx
--- NOTE | 2018-07-19 12:49 | PN ---
DATE: 07/19/2018 SUBJECTIVE: The patient is 82 years old, seen and examined, lying in bed, seems to be comfortable. No nausea or vomiting. No diarrhea. No more bleeding from the ostomy. The patient had colonoscopy done, was found to have possible villous adenoma, ileocecal junction. Awaiting biopsy report. No more rectal bleeding. His diet is advanced. PHYSICAL EXAMINATION: VITAL SIGNS: He is afebrile, pulse 70, respirations 20, blood pressure 138/67. LUNGS: Bilateral fair airflow. No rhonchi or crackle. HEART: S1 and S2 audible. ABDOMEN: Soft. Colostomy in place and functional. NEUROLOGICAL: The patient is awake, alert, oriented, communicative. LABORATORY EXAM: WBC is 3.3, hemoglobin 8.3, hematocrit 26, platelet 65. Chemistry: Sodium 139, potassium 4.1, chloride 107, CO2 of 20, BUN 39, creatinine 0.9, blood sugar of 107. ASSESSMENT: 1. Gastrointestinal bleed, probably secondary to being on anticoagulant for atrial fibrillation. 2. Status post colonoscopy with finding of villous adenoma, awaiting biopsy report. 3. Hypertension. 4. Seizure disorder. 5. Recent aortic aneurysm repair. PLAN: We will continue the patient on diltiazem. He is on phenytoin for his right upper lobe pneumonia. He is on doxycycline. He is getting Lasix. He is on statins. He is on Lovenox for now until we decide when he is going to be operated. We will await Dr. Larkin's input. Tri Fleming MD
[2018-07-19] MEDS: Enoxaparin 60 mg Syringe SC SCH ×2 (13:53→21:36)
[2018-07-19] MEDS ORDERED: Oxycodone/Acetaminophen 5/325 mg Tab PO PRN (15:17)
[2018-07-19] MEDS ORDERED: HYDROmorphone 1 mg/ml ISec IVP PRN (15:17)
--- NOTE | 2018-07-19 15:36 | CP.PCM.CON ---
History of Present Illness - History of Present Illness History of Present Illness: General Surgery consult note for Dr. Larkin Patient is an 82M with a PMH of HTN, stented AAA, seizures, GERD, zenker's diverticulum, atrial Fibrillation on Eliquis, and rectal cancer who presenting with bleeding from his stoma. Patient got an upper and lower endoscopy on 07/16/2018 and was found to have a colon polyp, 35 mm at the cecum. Surgery was consulted for possible right otis-colectomy. PMH: Rectal cancer s/p resection, AAA, HTN, Seizures, GERD, Zenker's Diverticulum, AFib on eliquis. PSH: Resection of rectal cancer with colostomy in 2001, appendectomy, balloon angioplasty without stents in 1990. Allergy:NKDA Social: Smoked for 40 years about 4 packs per day and quit in 1990, denies EtOH or illicit drug use. Past Patient History - Infectious Disease Hx of Infectious Diseases: None - Tetanus Immunizations Tetanus Immunization: Up to Date - Past Social History Smoking Status: Former Smoker - CARDIAC Hx Cardiac Disorders: Yes Hx Cardia Arrhythmia: Yes (afib, arythmia) Hx Circulatory Problems: Yes Hx Congestive Heart Failure: Yes Hx Hypertension: Yes Hx Pacemaker: No Hx Peripheral Edema: Yes (LE b/l +1, pitting and discolorations) Other/Comment: angioplasty - PULMONARY Hx Respiratory Disorders: Yes (USED TO SMOKE CIGARETTES.QUIT 1990) - NEUROLOGICAL Hx Seizures: Yes Hx Transient Ischemic Attacks (TIA): Yes (no deficits) - HEENT Hx HEENT Problems: Yes ([place] R ear, does not use hearing aid) Other/Comment: uses eyeglasses,uses dentures - RENAL Hx Chronic Kidney Disease: No - ENDOCRINE/METABOLIC Hx Endocrine Disorders: No - HEMATOLOGICAL/ONCOLOGICAL Hx Blood Transfusions: No Hx Blood Transfusion Reaction: No - INTEGUMENTARY Hx Dermatological Problems: Yes Hx Melanoma: Yes (RIGHT PINNA,HEAD) - MUSCULOSKELETAL/RHEUMATOLOGICAL Hx Falls: Yes (past) - GASTROINTESTINAL Hx Gastrointestinal Disorders: Yes Hx Colostomy: Yes (2001/empties 2x's a day brown stool) Hx Gastroesophageal Reflux: Yes HX Swallowing Problems: Yes Other/Comment: rectal cancer, dysphagia due to foreign body chicken bone removed by dr boo and dr wilson as per pt - GENITOURINARY/GYNECOLOGICAL Hx Genitourinary Disorders: Yes Other/Comment: 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 c/o urinary frequency, retention, difficulty initiating stream - PSYCHIATRIC Hx Psychophysiologic Disorder: Yes Hx Anxiety: Yes Hx Substance Use: No - SURGICAL HISTORY Hx Surgeries: Yes - ANESTHESIA Hx Anesthesia Reactions: No Hx Malignant Hyperthermia: No Meds Allergies/Adverse Reactions: Allergies Allergy/AdvReac Type Severity Reaction Status Date / Time No Known Allergies Allergy Verified 07/12/18 16:57 - Medications Medications: Current Medications Atorvastatin Calcium (Lipitor) 10 mg PO DIN [facility] Last Admin: 07/18/18 18:28 Dose: 10 mg Diltiazem HCl (Cardizem Cd) 360 mg PO DAILY [facility] Last Admin: 07/19/18 10:11 Dose: 360 mg Doxycycline Hyclate (Doryx) 100 mg PO Q12 [facility] Stop: 07/24/18 11:58 Enoxaparin Sodium (Lovenox) 60 mg SC Q12H [facility]; Protocol Last Admin: 07/19/18 13:53 Dose: Not Given Furosemide (Lasix) 40 mg PO DAILY [facility] Last Admin: 07/19/18 10:11 Dose: 40 mg Hydromorphone HCl (Dilaudid) 0.5 mg IVP Q4H PRN PRN Reason: Pain, severe (8-10) Cefepime HCl (Maxipime 1gm) 1 gm in 100 mls @ 100 mls/hr IVPB Q12 [facility]; Protocol Last Admin: 07/19/18 10:13 Dose: 100 mls/hr Ketorolac Tromethamine (Toradol) 15 mg IVP Q6 [facility] Levalbuterol HCl (Xopenex) 0.63 mg IH [id number] [facility] Last Admin: 07/19/18 13:57 Dose: Not Given Metoprolol Succinate (Toprol Xl) 25 mg PO BID [facility] Last Admin: 07/19/18 10:14 Dose: 25 mg Oxycodone/Acetaminophen (Percocet 5/325 Mg Tab) 1 tab PO Q4H PRN PRN Reason: Pain, moderate (4-7) Stop: 07/22/18 15:18 Pantoprazole Sodium (Protonix Ec Tab) 40 mg PO DAILY [facility] Last Admin: 07/19/18 10:12 Dose: 40 mg Phenytoin Sodium (Dilantin) 100 mg PO TID [facility] Last Admin: 07/19/18 13:17 Dose: 100 mg Physical Exam - Constitutional Appears: Well, Non-toxic, No Acute Distress - Head Exam Head Exam: ATRAUMATIC, NORMOCEPHALIC - Eye Exam Eye Exam: Normal appearance - ENT Exam ENT Exam: Mucous Membranes Moist - Respiratory Exam Respiratory Exam: NORMAL BREATHING PATTERN. absent: Respiratory Distress - Cardiovascular Exam Cardiovascular Exam: RRR. absent: Tachycardia - GI/Abdominal Exam GI & Abdominal Exam: Soft. absent: Distended, Firm, Tenderness Additional comments: Colostomy bag in place - Extremities Exam Extremities exam: Positive for: normal inspection. Negative for: calf tenderness - Neurological Exam Neurological exam: Alert, Oriented x3 - Psychiatric Exam Psychiatric exam: Normal Affect, Normal Mood - Skin Skin Exam: Dry, Intact, Normal Color, Warm Results - Vital Signs Recent Vital Signs: Last Vital Signs Temp 98.5 F 07/19/18 08:24 Pulse 70 07/19/18 10:14 Resp 20 07/19/18 08:24 BP 138/67 07/19/18 10:14 Pulse Ox 98 07/19/18 08:24 - Labs Result Diagrams: 07/20/18 05:30 07/20/18 05:30 Labs: Laboratory Results - last 24 hr 07/16/18 07/19/18 07/19/18 12:05 06:10 06:10 WBC 3.3 L RBC 2.67 L Hgb 8.3 L Hct 26.0 L MCV 97.4 MCH 31.1 MCHC 31.9 RDW 16.6 H Plt Count 65 L MPV 8.9 Sodium 139 Potassium 4.1 Chloride 107 Carbon Dioxide 30 Anion Gap 6 L BUN 29 H Creatinine 0.9 Est GFR ( Amer) > 60 Est GFR (Non-Af Amer) > 60 POC Glucose (mg/dL) Random Glucose 104 Calcium 8.4 Total Bilirubin 0.9 AST 58 ALT 44 Alkaline Phosphatase 65 Total Protein 5.3 L Albumin 2.8 L Globulin 2.5 Albumin/Globulin Ratio 1.2 Crossmatch See Detail 07/19/18 07:40 WBC RBC Hgb Hct MCV MCH MCHC RDW Plt Count MPV Sodium Potassium Chloride Carbon Dioxide Anion Gap BUN Creatinine Est GFR ( Amer) Est GFR (Non-Af Amer) POC Glucose (mg/dL) 107 Random Glucose Calcium Total Bilirubin AST ALT Alkaline Phosphatase Total Protein Albumin Globulin Albumin/Globulin Ratio Crossmatch Assessment & Plan - Assessment and Plan (Free Text) Assessment: Patient is an 82 year old male with h/o rectal CA s/p resection, pAF (on anticoagulation) with colostomy presenting with bleeding from stoma. Lower endoscopy showed a colon polyp, 35 mm at the cecum. Surgery was consulted for possible right otis-colectomy. Plan: - Follow up CT abdomen and pelvis - Follow up pathology - Surgery recs pending studies Case discussed with Dr. Trae Pyle DO PGY-1
--- NOTE | 2018-07-19 21:03 | CP.PCM.PN ---
Subjective - Date & Time of Evaluation Date of Evaluation: 07/19/18 Time of Evaluation: 10:50 - Subjective Subjective: Breathing better, no fevers, cough is improving, no nausea. Objective - Vital Signs/Intake and Output Vital Signs (last 24 hours): Temp Pulse Resp BP Pulse Ox 97.6 F 79 20 130/68 98 07/19/18 16:52 07/19/18 17:52 07/19/18 16:52 07/19/18 17:52 07/19/18 16:52 Intake and Output: 07/19/18 07/20/18 18:59 06:59 Intake Total 1560 Output Total 1100 Balance 460 - Medications Medications: Current Medications Atorvastatin Calcium (Lipitor) 10 mg PO DIN [facility] Last Admin: 07/19/18 17:52 Dose: 10 mg Diltiazem HCl (Cardizem Cd) 360 mg PO DAILY [facility] Last Admin: 07/19/18 10:11 Dose: 360 mg Doxycycline Hyclate (Doryx) 100 mg PO Q12 [facility] Stop: 07/24/18 11:58 Enoxaparin Sodium (Lovenox) 60 mg SC Q12H [facility]; Protocol Furosemide (Lasix) 40 mg PO DAILY [facility] Last Admin: 07/19/18 10:11 Dose: 40 mg Hydromorphone HCl (Dilaudid) 0.5 mg IVP Q4H PRN PRN Reason: Pain, severe (8-10) Cefepime HCl (Maxipime 1gm) 1 gm in 100 mls @ 100 mls/hr IVPB Q12 [facility]; Protocol Last Admin: 07/19/18 10:13 Dose: 100 mls/hr Ketorolac Tromethamine (Toradol) 15 mg IVP Q6 [facility] Levalbuterol HCl (Xopenex) 0.63 mg IH [id number] [facility] Last Admin: 07/19/18 19:35 Dose: 0.63 mg Metoprolol Succinate (Toprol Xl) 25 mg PO BID [facility] Last Admin: 07/19/18 17:52 Dose: 25 mg Oxycodone/Acetaminophen (Percocet 5/325 Mg Tab) 1 tab PO Q4H PRN PRN Reason: Pain, moderate (4-7) Stop: 07/22/18 15:18 Pantoprazole Sodium (Protonix Ec Tab) 40 mg PO DAILY [facility] Last Admin: 07/19/18 10:12 Dose: 40 mg Phenytoin Sodium (Dilantin) 100 mg PO TID [facility] Last Admin: 07/19/18 17:52 Dose: 100 mg - Labs Labs: 07/19/18 06:10 07/19/18 06:10 PT 12.5 SECONDS (9.4-12.5) 07/13/18 03:40 INR 1.09 07/13/18 03:40 APTT 29.1 Seconds (25.1-36.5) 07/13/18 03:40 - Constitutional Appears: No Acute Distress, Chronically Ill - Head Exam Head Exam: NORMAL INSPECTION - Respiratory Exam Respiratory Exam: Decreased Breath Sounds - Cardiovascular Exam Cardiovascular Exam: +S1, +S2 - GI/Abdominal Exam GI & Abdominal Exam: Soft. absent: Tenderness Assessment and Plan - Assessment and Plan (Free Text) Plan: Assessment HCAP, clinically improving rectal cancer atrial fibrillation GERD anxiety disorder chronic CHF CAD Plan continue Cefepime and Doxycycline day 5; cultures are negative; to complete 4-7 days of antibiotics - may d/c antibiotics in the next 24 hours
[2018-07-20] MEDS: Levalbuterol 0.63 MG/3 ML Inhal Soln UD IH SCH ×5 (02:11→20:55)
[2018-07-20 06:36] LABS: HEMOGLOBIN 8.4 g/dL (14.0-18.0); MEAN CELL VOLUME 96.7 fl (80.0-105.0); MEAN CORPUSCULAR HEMOGLOBIN 30.5 pg (25.0-35.0); MEAN CORPUSCULAR HGB CONC 31.6 g/dl (31.0-37.0); MEAN PLATELET VOLUME 9.1 fl (7.0-11.0); RBC 2.75 10^6/uL (3.5-6.1); RED CELL DISTRIBUTION WIDTH 16.4 % (11.5-14.5); WHITE BLOOD COUNT 3.5 10^3/ul (4.5-11.0)
--- NOTE | 2018-07-20 07:02 | CP.PCM.PN ---
Subjective - Date & Time of Evaluation Date of Evaluation: 07/20/18 Time of Evaluation: 06:20 - Subjective Subjective: Awake,alert, no distress, denies pain, no complaints Reason for consultation and follow up: Cardiac evaluation of Atrial fibrillation on Eliquis, admitted for GI bleeding, blood clots from colostomy bag, history of congestive heart failure, Seen and examined by me and Dr. Greenfield Objective - Vital Signs/Intake and Output Vital Signs (last 24 hours): Temp Pulse Resp BP Pulse Ox 97.6 F 79 20 130/68 98 07/19/18 16:52 07/19/18 17:52 07/19/18 16:52 07/19/18 17:52 07/19/18 16:52 - Medications Medications: Current Medications Atorvastatin Calcium (Lipitor) 10 mg PO DIN [facility] Last Admin: 07/19/18 17:52 Dose: 10 mg Diltiazem HCl (Cardizem Cd) 360 mg PO DAILY [facility] Last Admin: 07/19/18 10:11 Dose: 360 mg Doxycycline Hyclate (Doryx) 100 mg PO Q12 [facility] Stop: 07/24/18 11:58 Last Admin: 07/19/18 21:35 Dose: 100 mg Enoxaparin Sodium (Lovenox) 60 mg SC Q12H [facility]; Protocol Last Admin: 07/19/18 21:36 Dose: 60 mg Furosemide (Lasix) 40 mg PO DAILY [facility] Last Admin: 07/19/18 10:11 Dose: 40 mg Hydromorphone HCl (Dilaudid) 0.5 mg IVP Q4H PRN PRN Reason: Pain, severe (8-10) Cefepime HCl (Maxipime 1gm) 1 gm in 100 mls @ 100 mls/hr IVPB Q12 [facility]; Protocol Last Admin: 07/19/18 21:41 Dose: 100 mls/hr Ketorolac Tromethamine (Toradol) 15 mg IVP Q6 PRN PRN Reason: Pain, moderate (4-7) Levalbuterol HCl (Xopenex) 0.63 mg IH [id number] [facility] Last Admin: 07/20/18 02:11 Dose: 0.63 mg Metoprolol Succinate (Toprol Xl) 25 mg PO BID [facility] Last Admin: 07/19/18 17:52 Dose: 25 mg Oxycodone/Acetaminophen (Percocet 5/325 Mg Tab) 1 tab PO Q4H PRN PRN Reason: Pain, moderate (4-7) Stop: 07/22/18 15:18 Pantoprazole Sodium (Protonix Ec Tab) 40 mg PO DAILY [facility] Last Admin: 07/19/18 10:12 Dose: 40 mg Phenytoin Sodium (Dilantin) 100 mg PO TID [facility] Last Admin: 07/19/18 17:52 Dose: 100 mg - Labs Labs: 07/20/18 05:30 07/19/18 06:10 PT 12.5 SECONDS (9.4-12.5) 07/13/18 03:40 INR 1.09 07/13/18 03:40 APTT 29.1 Seconds (25.1-36.5) 07/13/18 03:40 - Constitutional Appears: Non-toxic, No Acute Distress - Head Exam Head Exam: NORMAL INSPECTION, NORMOCEPHALIC - Eye Exam Eye Exam: Normal appearance - ENT Exam ENT Exam: Mucous Membranes Moist - Respiratory Exam Respiratory Exam: Clear to Ausculation Bilateral, NORMAL BREATHING PATTERN - Cardiovascular Exam Cardiovascular Exam: +S1, +S2 - GI/Abdominal Exam GI & Abdominal Exam: Soft, Normal Bowel Sounds Additional comments: colostomy - Extremities Exam Extremities Exam: Full ROM, Normal Capillary Refill - Neurological Exam Neurological Exam: Alert, Awake, Oriented x3 - Psychiatric Exam Psychiatric exam: Normal Affect, Normal Mood - Skin Skin Exam: Dry, Normal Color, Warm Assessment and Plan - Assessment and Plan (Free Text) Assessment: A 62 year old male who came in to the ER due to blood clots from colostomy bag. History of rectal cancer with resection in 2001, with colostomy, atrial fibrillation on Eliquis. TIA,former smoker, anxiety,history of fall, hyperlipidemia, urinary frequency and retention. Low hemoglobin upon admission. Transfused 2 units of PRBC. Repeat H/H stable. Eliquis stopped.Post EGD/colonoscopy-Zenkers diverticulum,gastritis, Ileocecal valve polypoid mass, ascending colon polyp,diverticulitis.General surgery consulted, Awaiting pathology results. No bleeding from colostomy. Started Lovenox for anticoagulation. Minimal hemoptysis for the past 2 days. Will monitor for further occurences. Plan: Patient clinically stable, no distress Controlled heart rate-Atrial flutter 70's Controlled blood pressure Episode of minimal hemoptysis for past 2 days, recent yesterday. Will monitor and if progresses, will discontinue Lovenox. H/H stable, will transfuse if below 8 of hemoglobin Platelets 71- transfuse prior to surgery Type and crossmatch prior to surgery Awaiting pathology result from EGD to confirm surgery On Lipitor 10 mg daily, Cardizem 360 mg daily, Lasix 40 mg BID, Toprol 25 mg daily, Dilantin 100 mg TID, Lovenox 60 mg every 12 hours. Continue current medications Continue current treatment Chart reviewed Will follow up Plan and treatment discussed with Dr. Greenfield
[2018-07-20 07:06] LABS: ALB/GLOB RATIO 1.2 (1.1-1.8); ALBUMIN 2.9 g/dL (3.0-4.8); ALT/SGPT 43 U/L (7-56); AST/SGOT 51 U/L (17-59); BLOOD UREA NITROGEN 28 mg/dL (7-21); CALCIUM 8.4 mg/dL (8.4-10.5); GFR NON-AFRICAN AMERICAN > 60
--- NOTE | 2018-07-20 08:31 | PN ---
DATE: 07/19/2018 REASON FOR THE CONSULTATION AND FOLLOWUP: Preop evaluation, risk stratification. This note is an addendum to the initial note dictated by the nurse practitioner. The patient has a history of chronic atrial fibrillation with rapid rate, now rate is well controlled, status post colostomy, bled from this colostomy. Now, subsequent colonoscopy showed mass, sessile joint polyp, requiring colon surgery. The patient has a second opinion from Dr. Larkin. Discussed with Dr. Larkin. The patient will be at high risk for surgery since the patient was on anticoagulation. He is on hold for possible colonic surgery. We will continue about Lovenox. The patient complained of coughing up a little bit, very small. We will continue Lovenox. If the patient bleed again, we will discontinue. Otherwise, we will continue Lovenox for atrial fibrillation 60 mg subcutaneously every 12. Continue Cardizem, continue antibiotic, continue metoprolol. Once the patient has a colostomy done, no further episode of bleeding, we can resume back on previous Eliquis as the patient was at home before. Gldais Greenfield MD
[2018-07-20] MEDS: Cefepime 1gm in NS 100ml 1 GM/100 ML BAG IVPB SCH (09:42)
[2018-07-20] MEDS: diltiaZEM 180 mg/24 Hours CD Cap PO SCH (09:42)
[2018-07-20] MEDS: Pantoprazole 40 mg EC Tab PO SCH (09:43)
[2018-07-20] MEDS: Metoprolol Succinate 25 mg XL Tab PO SCH ×2 (09:43→18:30)
[2018-07-20] MEDS: Enoxaparin 60 mg Syringe SC SCH ×2 (09:48→21:53)
[2018-07-20] MEDS ORDERED: Barium Sulfate Susp 2.1% w/v, 2.0% w/w 450 mL Bottle PO ONE (11:41)
--- NOTE | 2018-07-20 11:49 | CP.PCM.PCO ---
Physician Communication Note - Physician Communication Note Physician Communication Note: Pt requesting a different surgery-signing off now
--- NOTE | 2018-07-20 12:40 | CP.PCM.PN ---
Subjective - Date & Time of Evaluation Date of Evaluation: 07/20/18 Time of Evaluation: 11:30 - Subjective Subjective: Comfortable, no fevers, not in distress. Breathing well, cough improved. Objective - Vital Signs/Intake and Output Vital Signs (last 24 hours): Temp Pulse Resp BP Pulse Ox 97.5 F L 82 20 154/82 H 96 07/20/18 08:47 07/20/18 08:47 07/20/18 08:47 07/20/18 08:47 07/20/18 08:47 Intake and Output: 07/20/18 07/20/18 06:59 18:59 Intake Total 60 Output Total 600 Balance -540 - Medications Medications: Current Medications Atorvastatin Calcium (Lipitor) 10 mg PO DIN [facility] Last Admin: 07/19/18 17:52 Dose: 10 mg Diltiazem HCl (Cardizem Cd) 360 mg PO DAILY [facility] Last Admin: 07/19/18 10:11 Dose: 360 mg Doxycycline Hyclate (Doryx) 100 mg PO Q12 [facility] Stop: 07/24/18 11:58 Last Admin: 07/19/18 21:35 Dose: 100 mg Enoxaparin Sodium (Lovenox) 60 mg SC Q12H [facility]; Protocol Last Admin: 07/19/18 21:36 Dose: 60 mg Furosemide (Lasix) 40 mg PO DAILY [facility] Last Admin: 07/19/18 10:11 Dose: 40 mg Levalbuterol HCl (Xopenex) 0.63 mg IH [id number] [facility] Last Admin: 07/20/18 07:37 Dose: Not Given Metoprolol Succinate (Toprol Xl) 25 mg PO BID [facility] Last Admin: 07/19/18 17:52 Dose: 25 mg Pantoprazole Sodium (Protonix Ec Tab) 40 mg PO DAILY [facility] Last Admin: 07/19/18 10:12 Dose: 40 mg Phenytoin Sodium (Dilantin) 100 mg PO TID [facility] Last Admin: 07/19/18 17:52 Dose: 100 mg - Labs Labs: 07/20/18 05:30 07/20/18 05:30 PT 12.5 SECONDS (9.4-12.5) 07/13/18 03:40 INR 1.09 07/13/18 03:40 APTT 29.1 Seconds (25.1-36.5) 07/13/18 03:40 - Constitutional Appears: Chronically Ill - Head Exam Head Exam: NORMAL INSPECTION - Respiratory Exam Respiratory Exam: Decreased Breath Sounds - Cardiovascular Exam Cardiovascular Exam: +S1, +S2 - GI/Abdominal Exam GI & Abdominal Exam: Soft. absent: Tenderness Assessment and Plan - Assessment and Plan (Free Text) Plan: Assessment HCAP, clinically improving rectal cancer atrial fibrillation GERD anxiety disorder chronic CHF CAD Plan on Doxycycline day 6 (d/c'ed Cefepime); cultures are negative; to complete 4-7 days of antibiotics - may d/c antibiotics in the next 24 hours
[2018-07-20] MEDS ORDERED: Iohexol 350 MG/100 ML VIAL ONE (12:45)
--- NOTE | 2018-07-20 15:07 | CP.PCM.PN ---
<LatanyaLeyla clarkedenzel - Last Filed: 07/20/18 16:54> Subjective - Date & Time of Evaluation Date of Evaluation: 07/20/18 Time of Evaluation: 07:50 - Subjective Subjective: PGY-4 GI Fellow Prog Note Pt lying in bed when seen this AM. States cough of some blood once yesterday. Otherwise, had no complaints. 5 point ROS negative other than states above Objective - Vital Signs/Intake and Output Vital Signs (last 24 hours): Temp Pulse Resp BP Pulse Ox 97.5 F L 82 20 154/82 H 96 07/20/18 08:47 07/20/18 09:43 07/20/18 08:47 07/20/18 09:43 07/20/18 08:47 Intake and Output: 07/20/18 07/20/18 06:59 18:59 Intake Total 60 Output Total 600 Balance -540 - Medications Medications: Current Medications Atorvastatin Calcium (Lipitor) 10 mg PO DIN [facility] Last Admin: 07/19/18 17:52 Dose: 10 mg Diltiazem HCl (Cardizem Cd) 360 mg PO DAILY [facility] Last Admin: 07/20/18 09:42 Dose: 360 mg Doxycycline Hyclate (Doryx) 100 mg PO Q12 [facility] Stop: 07/24/18 11:58 Last Admin: 07/20/18 09:43 Dose: 100 mg Enoxaparin Sodium (Lovenox) 60 mg SC Q12H [facility]; Protocol Last Admin: 07/20/18 09:48 Dose: 60 mg Furosemide (Lasix) 40 mg PO DAILY [facility] Last Admin: 07/20/18 09:43 Dose: 40 mg Levalbuterol HCl (Xopenex) 0.63 mg IH [id number] [facility] Last Admin: 07/20/18 13:51 Dose: Not Given Metoprolol Succinate (Toprol Xl) 25 mg PO BID [facility] Last Admin: 07/20/18 09:43 Dose: 25 mg Pantoprazole Sodium (Protonix Ec Tab) 40 mg PO DAILY [facility] Last Admin: 07/20/18 09:43 Dose: 40 mg Phenytoin Sodium (Dilantin) 100 mg PO TID [facility] Last Admin: 07/20/18 14:24 Dose: 100 mg - Labs Labs: 07/20/18 05:30 07/20/18 05:30 PT 12.5 SECONDS (9.4-12.5) 07/13/18 03:40 INR 1.09 07/13/18 03:40 APTT 29.1 Seconds (25.1-36.5) 07/13/18 03:40 - Constitutional Appears: Well, Non-toxic, No Acute Distress - ENT Exam ENT Exam: Mucous Membranes Moist. absent: Mucous Membranes Dry, Normal External Ear Exam - Respiratory Exam Respiratory Exam: Clear to Ausculation Bilateral, NORMAL BREATHING PATTERN. absent: Accessory Muscle Use - GI/Abdominal Exam GI & Abdominal Exam: Soft, Normal Bowel Sounds. absent: Bruit, Distended, Firm, Guarding, Rigid, Tenderness, Mass, Organomegaly, Pulsatile Mass, Rebound Additional comments: + colostomy Assessment and Plan - Assessment and Plan (Free Text) Assessment: 82 yo WM with h/o rectal CA s/p resection, pAF (on anticoagulation) with colostomy presenting with bleeding from stoma. # Tubulovillous polyp, 35mm at cecum; ascending colon tubular adenoma: 07/16/18 CSPY. Await path results. Likely need R otis colectomy. # Lower GI Bleed: From pts colostomy site with risk factors of apixaban use and ASA 81 mg. Hgb not sig down from baseline and hemodynamically stable. There was a small clot on admission that could have been the source of bleed. Reassuringly, not further bleeding noted since admission other than some hemoptysis which has also resolved. However, pt has now change his mind regarding endoscopic evaluation due to concerns of resuming anti-coagulation. # H/o Zenkers and food impaction: Seen again on 07/16 w/o food impaction #Hemoptysis: In setting of anticoagulation; none further. Plan: - Surgical consult, likely right hemicolectomy - Started on full dose enoxaparin per Cardiology with intermittent hemoptysis. D efer to primary/consultants. - Monitor H&H Pt seen and examined with Dr. Hinton. Please see attestation for further recs/changes. <Samson Hinton V - Last Filed: 07/20/18 22:10> Objective - Vital Signs/Intake and Output Vital Signs (last 24 hours): Temp Pulse Resp BP Pulse Ox 98.4 F 91 H 20 122/72 92 L 07/20/18 18:00 07/20/18 18:30 07/20/18 18:00 07/20/18 18:30 07/20/18 18:00 Intake and Output: 07/20/18 10 18:59 06:59 Intake Total 860 Output Total 1100 Balance -240 - Medications Medications: Current Medications Atorvastatin Calcium (Lipitor) 10 mg PO DIN [facility] Last Admin: 07/20/18 18:31 Dose: 10 mg Diltiazem HCl (Cardizem Cd) 360 mg PO DAILY [facility] Last Admin: 07/20/18 09:42 Dose: 360 mg Doxycycline Hyclate (Doryx) 100 mg PO Q12 [facility] Stop: 07/24/18 11:58 Last Admin: 07/20/18 21:52 Dose: 100 mg Enoxaparin Sodium (Lovenox) 60 mg SC Q12H [facility]; Protocol Last Admin: 07/20/18 21:53 Dose: 60 mg Furosemide (Lasix) 40 mg PO DAILY [facility] Last Admin: 07/20/18 09:43 Dose: 40 mg Levalbuterol HCl (Xopenex) 0.63 mg IH [id number] [facility] Last Admin: 07/20/18 20:55 Dose: 0.63 mg Metoprolol Succinate (Toprol Xl) 25 mg PO BID [facility] Last Admin: 07/20/18 18:30 Dose: 25 mg Pantoprazole Sodium (Protonix Ec Tab) 40 mg PO DAILY [facility] Last Admin: 07/20/18 09:43 Dose: 40 mg Phenytoin Sodium (Dilantin) 100 mg PO TID [facility] Last Admin: 07/20/18 18:30 Dose: 100 mg - Labs Labs: 07/20/18 05:30 07/20/18 05:30 PT 12.5 SECONDS (9.4-12.5) 07/13/18 03:40 INR 1.09 07/13/18 03:40 APTT 29.1 Seconds (25.1-36.5) 07/13/18 03:40 Attending/Attestation - Attestation I have personally seen and examined this patient.: Yes I have fully participated in the care of the patient.: Yes I have reviewed all pertinent clinical information, including history, physical exam and plan: Yes Notes (Text): This is an addendum to GI progress report dictated by the GI Fellow.The patient was seen and examined earlier. Medical records, lab studies, imagings were reviewed. Last 24 hours events reviewed. Agreed with the above treatment plan as outlined in GI Fellow 's notes with the addition of the following Path report reviewed Villous adenoma of the IC valve Another small polyp justone fold distal to ICV was also not removed and it was reported tubular adenoma History of rectal CA status post a APR with end colostomy History of small pharyngeal pouch A. fib Surgical follow-up for colon resection 07/20/18 22:09
--- NOTE | 2018-07-20 16:13 | CT ---
Date of service: 07/20/2018 PROCEDURE: CT Abdomen and Pelvis with contrast HISTORY: hx of colon ca, recurrent cecal polyps COMPARISON: 04/06/2018 TECHNIQUE: Contrast dose: 100 cc of Omni 350 Radiation dose: Total exam DLP = 278 mGy-cm. This CT exam was performed using one or more of the following dose reduction techniques: Automated exposure control, adjustment of the mA and/or kV according to patient size, and/or use of iterative reconstruction technique. FINDINGS: LOWER THORAX: Moderate right pleural effusion. Bibasilar atelectasis. Interstitial infiltrate in the right middle lobe LIVER: Unremarkable. No gross lesion or ductal dilatation. GALLBLADDER AND BILE DUCTS: Unremarkable. PANCREAS: Unremarkable. No gross lesion or ductal dilatation. SPLEEN: Unremarkable. ADRENALS: Unremarkable. No mass. KIDNEYS AND URETERS: Large bilateral nonobstructing renal stones VASCULATURE: There is an abdominal aortic aneurysm treated with a stent graft. This measures 47 x 54 x 93 mm in size. No evidence of endoleak BOWEL: Unremarkable. No obstruction. No gross mural thickening. Left lower quadrant colostomy APPENDIX: Normal appendix. PERITONEUM: Unremarkable. No free fluid. No free air. LYMPH NODES: Unremarkable. No enlarged lymph nodes. BLADDER: Unremarkable. REPRODUCTIVE: Enlarged prostate. Right side of the prostate gland is calcified. Prostate measures 58 x 61 mm BONES: No acute fracture. OTHER FINDINGS: None. IMPRESSION: Right middle lobe infiltrate. Moderate size right pleural effusion small left effusion. No acute intra-abdominal findings. See comments
--- NOTE | 2018-07-20 21:50 | PN ---
DATE: 07/20/2018 SUBJECTIVE: Patient is an 82-year-old, seen and examined. Doing okay. No more further bleeding in the colostomy bag. No chest pain. No shortness of breath. Eating and tolerating. PHYSICAL EXAMINATION: VITAL SIGNS: He is afebrile, pulse 91, respirations 20, blood pressure 122/72. LUNGS: Bilateral good airflow. No rhonchi or crackle. HEART: S1 and S2 audible, irregular, rate controlled. ABDOMEN: Soft. Colostomy in place. No more signs of bleeding. NEUROLOGICAL: Patient is awake, alert, oriented, and communicative. LABORATORY DATA: WBC 3.5, hemoglobin 8.4, hematocrit 26, platelet of 71. Chemistry: Sodium 140, potassium 3.9, chloride 104, CO2 of 30, BUN 28, creatinine 0.9, blood sugar of 98. Biopsy report showing tubulovillous adenoma. ASSESSMENT: 1. Status post gastrointestinal bleed. 2. Hypertension. 3. Chronic atrial fibrillation. 4. Status post aortic aneurysm repair. 5. Resolving right upper lobe infiltrate. PLAN: Currently, patient is on nebulizer treatment. He is getting antibiotics. He is on doxycycline. Patient is of off anticoagulant. We will discuss with the surgeon for possible right hemicolectomy depending on OR schedule. Tri Fleming MD
[2018-07-21] MEDS: Levalbuterol 0.63 MG/3 ML Inhal Soln UD IH SCH ×4 (04:12→20:29)
[2018-07-21 06:33] LABS: HEMOGLOBIN 8.2 g/dL (14.0-18.0); MEAN CELL VOLUME 96.6 fl (80.0-105.0); MEAN CORPUSCULAR HEMOGLOBIN 30.7 pg (25.0-35.0); MEAN CORPUSCULAR HGB CONC 31.8 g/dl (31.0-37.0); MEAN PLATELET VOLUME 8.7 fl (7.0-11.0); RBC 2.67 10^6/uL (3.5-6.1); RED CELL DISTRIBUTION WIDTH 16.3 % (11.5-14.5); WHITE BLOOD COUNT 3.4 10^3/ul (4.5-11.0)
[2018-07-21 07:06] LABS: ALB/GLOB RATIO 1.2 (1.1-1.8); ALBUMIN 2.7 g/dL (3.0-4.8); ALT/SGPT 54 U/L (7-56); AST/SGOT 60 U/L (17-59); BLOOD UREA NITROGEN 27 mg/dL (7-21); CALCIUM 8.4 mg/dL (8.4-10.5); GFR NON-AFRICAN AMERICAN > 60
--- NOTE | 2018-07-21 07:06 | CP.PCM.PN ---
Subjective - Date & Time of Evaluation Date of Evaluation: 07/21/18 Time of Evaluation: 06:35 - Subjective Subjective: Awake,alert, no distress, denies pain, no complaints,no hemoptysis Reason for consultation and follow up: Cardiac evaluation of Atrial fibrillation on Eliquis, admitted for GI bleeding, blood clots from colostomy bag, history of congestive heart failure, Seen and examined by me and Dr. Greenfield Objective - Vital Signs/Intake and Output Vital Signs (last 24 hours): Temp Pulse Resp BP Pulse Ox 98.4 F 91 H 20 122/72 92 L 07/20/18 18:00 07/20/18 18:30 07/20/18 18:00 07/20/18 18:30 07/20/18 18:00 Intake and Output: 07/21/18 07/21/18 06:59 18:59 Intake Total 60 Output Total 575 Balance -515 - Medications Medications: Current Medications Atorvastatin Calcium (Lipitor) 10 mg PO DIN [facility] Last Admin: 07/20/18 18:31 Dose: 10 mg Diltiazem HCl (Cardizem Cd) 360 mg PO DAILY [facility] Last Admin: 07/20/18 09:42 Dose: 360 mg Doxycycline Hyclate (Doryx) 100 mg PO Q12 [facility] Stop: 07/24/18 11:58 Last Admin: 07/20/18 21:52 Dose: 100 mg Enoxaparin Sodium (Lovenox) 60 mg SC Q12H [facility]; Protocol Last Admin: 07/20/18 21:53 Dose: 60 mg Furosemide (Lasix) 40 mg PO DAILY [facility] Last Admin: 07/20/18 09:43 Dose: 40 mg Levalbuterol HCl (Xopenex) 0.63 mg IH [id number] [facility] Last Admin: 07/21/18 04:12 Dose: Not Given Metoprolol Succinate (Toprol Xl) 25 mg PO BID [facility] Last Admin: 07/20/18 18:30 Dose: 25 mg Pantoprazole Sodium (Protonix Ec Tab) 40 mg PO DAILY [facility] Last Admin: 07/20/18 09:43 Dose: 40 mg Phenytoin Sodium (Dilantin) 100 mg PO TID [facility] Last Admin: 07/20/18 18:30 Dose: 100 mg - Labs Labs: 07/21/18 06:00 07/20/18 05:30 PT 12.5 SECONDS (9.4-12.5) 07/13/18 03:40 INR 1.09 07/13/18 03:40 APTT 29.1 Seconds (25.1-36.5) 07/13/18 03:40 - Constitutional Appears: Non-toxic, No Acute Distress - Head Exam Head Exam: NORMAL INSPECTION, NORMOCEPHALIC - Eye Exam Eye Exam: Normal appearance - ENT Exam ENT Exam: Mucous Membranes Moist, Normal Exam - Respiratory Exam Respiratory Exam: Clear to Ausculation Bilateral, NORMAL BREATHING PATTERN - Cardiovascular Exam Cardiovascular Exam: +S1, +S2 - GI/Abdominal Exam GI & Abdominal Exam: Soft, Normal Bowel Sounds Additional comments: colostomy - Extremities Exam Extremities Exam: Full ROM, Normal Capillary Refill - Neurological Exam Neurological Exam: Alert, Awake, Oriented x3 - Psychiatric Exam Psychiatric exam: Normal Affect, Normal Mood - Skin Skin Exam: Dry, Intact, Normal Color, Warm Assessment and Plan - Assessment and Plan (Free Text) Assessment: A 62 year old male who came in to the ER due to blood clots from colostomy bag. History of rectal cancer with resection in 2001, with colostomy, atrial fibrillation on Eliquis. TIA,former smoker, anxiety,history of fall, hyperlipidemia, urinary frequency and retention. Low hemoglobin upon admission. Transfused 2 units of PRBC. Repeat H/H stable. Eliquis stopped.Post EGD/colonoscopy-Zenkers diverticulum,gastritis, Ileocecal valve polypoid mass,ascending colon polyp,diverticulitis.General surgery consulted, Awaiting pathology results. No bleeding from colostomy. Started Lovenox for anticoagulation. Minimal hemoptysis. No hemoptysis yesterday. Plan: No distress, no complaints, slept well Patient clinically stable, Controlled heart rate Controlled blood pressure H/H stable, will transfuse if below 8 of hemoglobin Platelets 81 today, improving Type and crossmatch prior to surgery Awaiting Pathology result from EGD to confirm surgery On Lipitor 10 mg daily, Cardizem 360 mg daily, Lasix 40 mg BID, Toprol 25 mg daily, Dilantin 100 mg TID, Lovenox 60 mg every 12 hours. Continue current medications Continue current treatment Chart reviewed Will follow up Plan and treatment discussed with Dr. Greenfield
--- NOTE | 2018-07-21 08:54 | PN ---
DATE: 07/20/2018 REASON FOR CONSULTATION: Followup preop evaluation, risk stratification. SUBJECTIVE: The patient feels okay. No chest pain. No shortness of breath. This note is in addition to the initial dictated by our nurse practitioner, Evangelina Mcarthur. Discussed with Dr. Larkin yesterday. Discussed with Dr. Du today, questioned about Entresto. The patient has a preserved LV function. The patient does not qualify for Entresto. Continue antibiotic. The patient has a history of chronic atrial fibrillation, was on Eliquis, on old for possible abdominal surgery. Interim, continue Lovenox. Once the patient has surgery done and no risk of bleeding, we will restart Eliquis. Continue gentle diuretics. Continue Cardizem. Continue enoxaparin 60 mg every 12. No further episode of hemoptysis or spitting blood noted. Continue beta tammy. If hemoptysis occur or the patient start spitting blood, we can discontinue Lovenox as well or hold temporary. For now, the patient is cleared to go for surgery as a moderate to high due to underlying comorbidity, but no absolute contraindication. We will follow with you. Thank you, Dr. Du for providing us the opportunity in taking care of the patient, Alexia. Gladis Greenfield MD
[2018-07-21] MEDS ORDERED: Peg-Electrolyte Oral Soln 4L (Golytely) PO ONE (09:45)
[2018-07-21] MEDS: diltiaZEM 180 mg/24 Hours CD Cap PO SCH (09:46)
[2018-07-21] MEDS: Enoxaparin 60 mg Syringe SC SCH ×2 (09:47→22:50)
[2018-07-21] MEDS: Pantoprazole 40 mg EC Tab PO SCH (09:48)
[2018-07-21] MEDS: Metoprolol Succinate 25 mg XL Tab PO SCH ×2 (09:48→17:36)
--- NOTE | 2018-07-21 13:45 | CP.PCM.PN ---
Subjective - Date & Time of Evaluation Date of Evaluation: 07/21/18 Time of Evaluation: 10:45 - Subjective Subjective: Patient seen and examined. Patient is ambulating. No complaints. Objective - Vital Signs/Intake and Output Vital Signs (last 24 hours): Temp Pulse Resp BP Pulse Ox 97.9 F 91 H 20 129/77 98 07/21/18 06:00 07/21/18 09:48 07/21/18 06:00 07/21/18 09:48 07/21/18 06:00 Intake and Output: 07/21/18 07/21/18 06:59 18:59 Intake Total 60 Output Total 575 Balance -515 - Medications Medications: Current Medications Atorvastatin Calcium (Lipitor) 10 mg PO DIN [facility] Last Admin: 07/20/18 18:31 Dose: 10 mg Diltiazem HCl (Cardizem Cd) 360 mg PO DAILY [facility] Last Admin: 07/21/18 09:46 Dose: 360 mg Doxycycline Hyclate (Doryx) 100 mg PO Q12 [facility] Stop: 07/24/18 11:58 Last Admin: 07/21/18 09:47 Dose: 100 mg Enoxaparin Sodium (Lovenox) 60 mg SC Q12H [facility]; Protocol Last Admin: 07/21/18 09:47 Dose: 60 mg Furosemide (Lasix) 40 mg PO DAILY [facility] Last Admin: 07/21/18 09:47 Dose: 40 mg Levalbuterol HCl (Xopenex) 0.63 mg IH [id number] [facility] Last Admin: 07/21/18 07:36 Dose: 0.63 mg Metoprolol Succinate (Toprol Xl) 25 mg PO BID [facility] Last Admin: 07/21/18 09:48 Dose: 25 mg Pantoprazole Sodium (Protonix Ec Tab) 40 mg PO DAILY [facility] Last Admin: 07/21/18 09:48 Dose: 40 mg Phenytoin Sodium (Dilantin) 100 mg PO TID [facility] Last Admin: 07/21/18 13:04 Dose: 100 mg - Labs Labs: 07/21/18 06:00 07/21/18 06:00 PT 12.5 SECONDS (9.4-12.5) 07/13/18 03:40 INR 1.09 07/13/18 03:40 APTT 29.1 Seconds (25.1-36.5) 07/13/18 03:40 - Constitutional Appears: No Acute Distress - Head Exam Head Exam: NORMOCEPHALIC - Eye Exam Eye Exam: Normal appearance - ENT Exam ENT Exam: Mucous Membranes Moist - Respiratory Exam Respiratory Exam: NORMAL BREATHING PATTERN - Cardiovascular Exam Cardiovascular Exam: +S1, +S2 - GI/Abdominal Exam GI & Abdominal Exam: Soft - Neurological Exam Neurological Exam: Alert, Awake, Oriented x3 - Psychiatric Exam Psychiatric exam: Normal Mood - Skin Skin Exam: Dry, Intact, Warm Assessment and Plan - Assessment and Plan (Free Text) Assessment: 82M with colon polyp measuring 35 mm at ileocecal valve Plan: -Latrice -Will plan for right hemicolectomy this Thursday -Stephanie's prep prior to surgery -Encourage ambulation -Medical management per medical team D/w Dr. Trae Aly PGY3
--- NOTE | 2018-07-21 13:54 | CP.PCM.PN ---
<Rio Quiroz - Last Filed: 07/21/18 18:03> Subjective - Date & Time of Evaluation Date of Evaluation: 07/21/18 Time of Evaluation: 10:45 - Subjective Subjective: PGY-4 GI Fellow Prog Note Pt working with PT when seen this AM. States he is doing well and plan is for surgery on Thursday. Denied any bleeding anywhere. 5 point ROS negative other than stated above Objective - Vital Signs/Intake and Output Vital Signs (last 24 hours): Temp Pulse Resp BP Pulse Ox 97.9 F 91 H 20 129/77 98 07/21/18 06:00 07/21/18 09:48 07/21/18 06:00 07/21/18 09:48 07/21/18 06:00 Intake and Output: 07/21/18 07/21/18 06:59 18:59 Intake Total 60 Output Total 575 Balance -515 - Medications Medications: Current Medications Atorvastatin Calcium (Lipitor) 10 mg PO DIN [facility] Last Admin: 07/20/18 18:31 Dose: 10 mg Diltiazem HCl (Cardizem Cd) 360 mg PO DAILY [facility] Last Admin: 07/21/18 09:46 Dose: 360 mg Doxycycline Hyclate (Doryx) 100 mg PO Q12 [facility] Stop: 07/24/18 11:58 Last Admin: 07/21/18 09:47 Dose: 100 mg Enoxaparin Sodium (Lovenox) 60 mg SC Q12H [facility]; Protocol Last Admin: 07/21/18 09:47 Dose: 60 mg Furosemide (Lasix) 40 mg PO DAILY [facility] Last Admin: 07/21/18 09:47 Dose: 40 mg Levalbuterol HCl (Xopenex) 0.63 mg IH [id number] [facility] Last Admin: 07/21/18 07:36 Dose: 0.63 mg Metoprolol Succinate (Toprol Xl) 25 mg PO BID [facility] Last Admin: 07/21/18 09:48 Dose: 25 mg Pantoprazole Sodium (Protonix Ec Tab) 40 mg PO DAILY [facility] Last Admin: 07/21/18 09:48 Dose: 40 mg Phenytoin Sodium (Dilantin) 100 mg PO TID [facility] Last Admin: 07/21/18 13:04 Dose: 100 mg - Labs Labs: 07/21/18 06:00 07/21/18 06:00 PT 12.5 SECONDS (9.4-12.5) 07/13/18 03:40 INR 1.09 07/13/18 03:40 APTT 29.1 Seconds (25.1-36.5) 07/13/18 03:40 - Constitutional Appears: Well, No Acute Distress - Head Exam Head Exam: ATRAUMATIC, NORMAL INSPECTION - Eye Exam Eye Exam: EOMI, Normal appearance. absent: Conjunctival injection - ENT Exam ENT Exam: Mucous Membranes Moist. absent: Mucous Membranes Dry - Cardiovascular Exam Cardiovascular Exam: REGULAR RHYTHM, RRR - GI/Abdominal Exam GI & Abdominal Exam: Soft. absent: Bruit, Distended, Firm, Guarding, Rigid, Tenderness, Normal Bowel Sounds, Organomegaly, Pulsatile Mass, Rebound Additional comments: +colostomy Assessment and Plan - Assessment and Plan (Free Text) Assessment: 82 yo WM with h/o rectal CA s/p resection, pAF (on anticoagulation) with colostomy presenting with bleeding from stoma. # Tubulovillous polyp, 35mm at cecum; ascending colon tubular adenoma: 07/16/18 CSPY. Await path results. Need R otis colectomy. # Lower GI Bleed: From pts colostomy site with risk factors of apixaban use and ASA 81 mg. Hgb not sig down from baseline and hemodynamically stable. There was a small clot on admission that could have been the source of bleed. Reassuringly, not further bleeding noted since admission other than some hemoptysis which has also resolved. However, pt has now change his mind regardi ng endoscopic evaluation due to concerns of resuming anti-coagulation. # H/o Zenkers and food impaction: Seen again on 07/16 w/o food impaction #Hemoptysis: In setting of anticoagulation; none further. Plan: - Surgical consult, Planning right hemicolectomy 07/23 - Started on full dose enoxaparin per Cardiology with intermittent hemoptysis. Defer to primary/consultants. - Monitor H&H Thank you for the consult. Will sign off; please page if questions. Pt seen and examined with Dr. Hinton. Please see attestation for further recs/changes. <Samson Hinton V - Last Filed: 07/21/18 23:40> Objective - Vital Signs/Intake and Output Vital Signs (last 24 hours): Temp Pulse Resp BP Pulse Ox 97.6 F 72 20 133/77 99 07/21/18 16:43 07/21/18 16:43 07/21/18 16:43 07/21/18 16:43 07/21/18 16:43 - Medications Medications: Current Medications Atorvastatin Calcium (Lipitor) 10 mg PO DIN [facility] Last Admin: 07/21/18 17:35 Dose: 10 mg Diltiazem HCl (Cardizem Cd) 360 mg PO DAILY [facility] Last Admin: 07/21/18 09:46 Dose: 360 mg Doxycycline Hyclate (Doryx) 100 mg PO Q12 [facility] Stop: 07/24/18 11:58 Last Admin: 07/21/18 22:50 Dose: 100 mg Enoxaparin Sodium (Lovenox) 60 mg SC Q12H [facility]; Protocol Last Admin: 07/21/18 22:50 Dose: 60 mg Furosemide (Lasix) 40 mg PO DAILY [facility] Last Admin: 07/21/18 09:47 Dose: 40 mg Levalbuterol HCl (Xopenex) 0.63 mg IH [id number] [facility] Last Admin: 07/21/18 20:29 Dose: 0.63 mg Metoprolol Succinate (Toprol Xl) 25 mg PO BID [facility] Last Admin: 07/21/18 17:36 Dose: 25 mg Pantoprazole Sodium (Protonix Ec Tab) 40 mg PO DAILY [facility] Last Admin: 07/21/18 09:48 Dose: 40 mg Phenytoin Sodium (Dilantin) 100 mg PO TID [facility] Last Admin: 07/21/18 17:35 Dose: 100 mg - Labs Labs: 07/21/18 06:00 07/21/18 06:00 PT 12.5 SECONDS (9.4-12.5) 07/13/18 03:40 INR 1.09 07/13/18 03:40 APTT 29.1 Seconds (25.1-36.5) 07/13/18 03:40 Attending/Attestation - Attestation I have personally seen and examined this patient.: Yes I have fully participated in the care of the patient.: Yes I have reviewed all pertinent clinical information, including history, physical exam and plan: Yes Notes (Text): This is an addendum to GI progress report dictated by the GI Fellow.The patient was seen and examined earlier. Medical records, lab studies, imagings were reviewed. Last 24 hours events reviewed. Agreed with the above treatment plan as outlined in GI Fellow 's notes with the addition of the following Patient is scheduled for surgery for right hemicolectomy Tolerating diet No GI complaints now Will sign off Please re-consult as needed Thank you very much for allowing up to participate in the case of the patient 07/21/18 23:38
--- NOTE | 2018-07-21 14:44 | PN ---
DATE: 07/21/2018 SUBJECTIVE: Patient is 82 years old. Seen and examined, ambulatory. Not in any distress. No more hemoptysis, no bleeding. Getting ready for surgery, possible right hemicolectomy on Thursday. PHYSICAL EXAMINATION VITAL SIGNS: He is afebrile. Pulse 91, respirations 20, and blood pressure 129/77. LUNGS: Bilateral fair air flow. No rhonchi or crackles. HEART: S1, S2 audible. ABDOMEN: Soft. Colostomy in place. NEUROLOGIC: He is awake, alert, and oriented. Ambulatory. EXTREMITIES: Bilateral leg, no edema. LABORATORY DATA: His WBC is 3.4, hemoglobin 8.2, hematocrit 25.8, and platelets of 81. Chemistry: Sodium 139, potassium 4.2, chloride 103, CO2 of 32. BUN 27, creatinine 0.9. Blood sugar of 96. ASSESSMENT: 1. Villous adenoma, ileocecal region.. 2. History of atrial fibrillation. 3. Hypertension. 4. Chronic obstructive pulmonary disease. 5. History of aortic aneurysm repair. PLAN: We will continue the patient on diltiazem. He is on phenytoin, he is on doxycycline for his right upper and middle lobe infiltrate. He is on nebulizer treatment. He is being prepped for surgery on Thursday. Tri Fleming MD
--- NOTE | 2018-07-21 17:35 | CP.PCM.PN ---
Subjective - Date & Time of Evaluation Date of Evaluation: 07/21/18 Time of Evaluation: 11:50 - Subjective Subjective: Afebrile, not in distress. Comfortable. Objective - Vital Signs/Intake and Output Vital Signs (last 24 hours): Temp Pulse Resp BP Pulse Ox 98.4 F 91 H 20 122/72 92 L 07/20/18 18:00 07/20/18 18:30 07/20/18 18:00 07/20/18 18:30 07/20/18 18:00 Intake and Output: 07/21/18 07/21/18 06:59 18:59 Intake Total 60 Output Total 575 Balance -515 - Medications Medications: Current Medications Atorvastatin Calcium (Lipitor) 10 mg PO DIN [facility] Last Admin: 07/20/18 18:31 Dose: 10 mg Diltiazem HCl (Cardizem Cd) 360 mg PO DAILY [facility] Last Admin: 07/20/18 09:42 Dose: 360 mg Doxycycline Hyclate (Doryx) 100 mg PO Q12 [facility] Stop: 07/24/18 11:58 Last Admin: 07/20/18 21:52 Dose: 100 mg Enoxaparin Sodium (Lovenox) 60 mg SC Q12H [facility]; Protocol Last Admin: 07/20/18 21:53 Dose: 60 mg Furosemide (Lasix) 40 mg PO DAILY [facility] Last Admin: 07/20/18 09:43 Dose: 40 mg Levalbuterol HCl (Xopenex) 0.63 mg IH [id number] [facility] Last Admin: 07/21/18 04:12 Dose: Not Given Metoprolol Succinate (Toprol Xl) 25 mg PO BID [facility] Last Admin: 07/20/18 18:30 Dose: 25 mg Pantoprazole Sodium (Protonix Ec Tab) 40 mg PO DAILY [facility] Last Admin: 07/20/18 09:43 Dose: 40 mg Phenytoin Sodium (Dilantin) 100 mg PO TID [facility] Last Admin: 07/20/18 18:30 Dose: 100 mg - Labs Labs: 07/21/18 06:00 07/21/18 06:00 PT 12.5 SECONDS (9.4-12.5) 07/13/18 03:40 INR 1.09 07/13/18 03:40 APTT 29.1 Seconds (25.1-36.5) 07/13/18 03:40 - Constitutional Appears: No Acute Distress, Chronically Ill - Head Exam Head Exam: NORMAL INSPECTION - Respiratory Exam Respiratory Exam: Decreased Breath Sounds - Cardiovascular Exam Cardiovascular Exam: +S1, +S2 - GI/Abdominal Exam GI & Abdominal Exam: Soft. absent: Tenderness Assessment and Plan - Assessment and Plan (Free Text) Plan: Assessment HCAP, clinically improving rectal cancer atrial fibrillation GERD anxiety disorder chronic CHF CAD Plan on Doxycycline day 7 (d/c'ed Cefepime); cultures are negative; to complete 4-7 days of antibiotics - february d/c antibiotics after today reviewed CT A/P which is still showing the pneumonia but imaging always lags behind improvement in the clinical picture and it should be taken all together, and clinical improvement is a more sensitive marker of progress compared to relying on imaging alone
[2018-07-22] MEDS: Levalbuterol 0.63 MG/3 ML Inhal Soln UD IH SCH ×4 (01:55→19:39)
--- NOTE | 2018-07-22 07:04 | CP.PCM.PN ---
Subjective - Date & Time of Evaluation Date of Evaluation: 07/22/18 Time of Evaluation: 06:55 - Subjective Subjective: No distress,awake,alert, no complaints Reason for consultation and follow up: Cardiac evaluation of Atrial fibrillation on Eliquis, admitted for GI bleeding, blood clots from colostomy bag, history of congestive heart failure, Seen and examined by me and Dr. Greenfield Objective - Vital Signs/Intake and Output Vital Signs (last 24 hours): Temp Pulse Resp BP Pulse Ox 98.6 F 105 H 20 154/83 H 98 07/22/18 00:01 07/22/18 00:01 07/22/18 00:01 07/22/18 00:01 07/22/18 00:01 - Medications Medications: Current Medications Atorvastatin Calcium (Lipitor) 10 mg PO DIN [facility] Last Admin: 07/21/18 17:35 Dose: 10 mg Diltiazem HCl (Cardizem Cd) 360 mg PO DAILY [facility] Last Admin: 07/21/18 09:46 Dose: 360 mg Doxycycline Hyclate (Doryx) 100 mg PO Q12 [facility] Stop: 07/24/18 11:58 Last Admin: 07/21/18 22:50 Dose: 100 mg Enoxaparin Sodium (Lovenox) 60 mg SC Q12H [facility]; Protocol Last Admin: 07/21/18 22:50 Dose: 60 mg Furosemide (Lasix) 40 mg PO DAILY [facility] Last Admin: 07/21/18 09:47 Dose: 40 mg Levalbuterol HCl (Xopenex) 0.63 mg IH [id number] [facility] Last Admin: 07/22/18 01:55 Dose: Not Given Metoprolol Succinate (Toprol Xl) 25 mg PO BID [facility] Last Admin: 07/21/18 17:36 Dose: 25 mg Pantoprazole Sodium (Protonix Ec Tab) 40 mg PO DAILY [facility] Last Admin: 07/21/18 09:48 Dose: 40 mg Phenytoin Sodium (Dilantin) 100 mg PO TID [facility] Last Admin: 07/21/18 17:35 Dose: 100 mg - Labs Labs: 07/21/18 06:00 07/21/18 06:00 PT 12.5 SECONDS (9.4-12.5) 07/13/18 03:40 INR 1.09 07/13/18 03:40 APTT 29.1 Seconds (25.1-36.5) 07/13/18 03:40 - Constitutional Appears: Non-toxic, No Acute Distress - Head Exam Head Exam: NORMAL INSPECTION, NORMOCEPHALIC - Eye Exam Eye Exam: Normal appearance - ENT Exam ENT Exam: Mucous Membranes Moist, Normal Exam - Respiratory Exam Respiratory Exam: Clear to Ausculation Bilateral, NORMAL BREATHING PATTERN - Cardiovascular Exam Cardiovascular Exam: +S1, +S2 - GI/Abdominal Exam GI & Abdominal Exam: Soft, Normal Bowel Sounds Additional comments: colostomy - Extremities Exam Extremities Exam: Normal Capillary Refill, Normal Inspection - Neurological Exam Neurological Exam: Alert, Awake, Oriented x3 - Psychiatric Exam Psychiatric exam: Normal Affect, Normal Mood - Skin Skin Exam: Dry, Intact, Normal Color, Warm Assessment and Plan - Assessment and Plan (Free Text) Assessment: A 62 year old male who came in to the ER due to blood clots from colostomy bag. History of rectal cancer with resection in 2001, with colostomy, atrial fibrillation on Eliquis. TIA,former smoker, anxiety,history of fall, hyperlipidemia, urinary frequency and retention. Low hemoglobin upon admission. Transfused 2 units of PRBC. Repeat H/H stable. Eliquis stopped.Post EGD/colonoscopy-Zenkers diverticulum,gastritis, Ileocecal valve polypoid mass,ascending colon polyp,diverticulitis.Seen by General surgery No bleeding from colostomy. Started Lovenox for anticoagulation. Minimal hemoptysis. Pathology showed villous adenoma, ileocecal region.For right hemicolectomy Thursday. Patient is cleared for surgery from cardiac standpoint.Moderate to high risk considering co-morbidities. No absolute contraindication to undergo surgery. Clinically stable. Plan: Patient clinically stable, denies shortness of breath, denies chest pain Controlled heart rate Controlled blood pressure For right hemicolectomy Thursday Cleared for surgery from cardiac standpoint H/H stable, will transfuse if below 8 of hemoglobin Type and crossmatch PRBC On Lipitor 10 mg daily, Cardizem 360 mg daily, Lasix 40 mg BID, Toprol 25 mg daily, Dilantin 100 mg TID, Lovenox 60 mg every 12 hours. Continue current medications Continue current treatment Chart reviewed Will follow up Plan and treatment discussed with Dr. Greenfield
[2018-07-22 07:09] LABS: HEMOGLOBIN 7.9 g/dL (14.0-18.0); MEAN CELL VOLUME 96.5 fl (80.0-105.0); MEAN CORPUSCULAR HEMOGLOBIN 30.7 pg (25.0-35.0); MEAN CORPUSCULAR HGB CONC 31.9 g/dl (31.0-37.0); MEAN PLATELET VOLUME 8.9 fl (7.0-11.0); RBC 2.57 10^6/uL (3.5-6.1); RED CELL DISTRIBUTION WIDTH 16.1 % (11.5-14.5)
[2018-07-22 07:14] LABS: INR 1.09; PARTIAL THROMBOPLASTIN TIME 31.5 Seconds (25.1-36.5); PROTHROMBIN TIME 12.5 SECONDS (9.4-12.5)
[2018-07-22 07:17] LABS: WHITE BLOOD COUNT 2.4 10^3/ul (4.5-11.0)
[2018-07-22 07:28] LABS: BASO # 0.03 K/mm3 (0.0-2.0); BASO % 1.2 % (0.0-3.0); EOS # 0.1 (0.0-0.7); EOS % 2.8 % (1.5-5.0); GRAN # 1.67 (1.4-6.5); GRAN % 67.7 % (50.0-68.0); LYMPH # 0.5 (1.2-3.4); LYMPH % 19.4 % (22.0-35.0); MONO # 0.2 (0.1-0.6); MONO % 8.9 % (1.0-6.0)
[2018-07-22 07:34] LABS: ALB/GLOB RATIO 1.2 (1.1-1.8); ALBUMIN 2.8 g/dL (3.0-4.8); ALT/SGPT 50 U/L (7-56); AST/SGOT 45 U/L (17-59); BLOOD UREA NITROGEN 27 mg/dL (7-21); CALCIUM 8.5 mg/dL (8.4-10.5); GFR NON-AFRICAN AMERICAN > 60
--- NOTE | 2018-07-22 07:48 | CP.PCM.PN ---
Subjective - Date & Time of Evaluation Date of Evaluation: 07/22/18 Time of Evaluation: 07:45 - Subjective Subjective: Surgery: Dr. Larkin Patient resting comfortably this am. Slow to drink colon prep. No acute issues overnight. Objective - Vital Signs/Intake and Output Vital Signs (last 24 hours): Temp Pulse Resp BP Pulse Ox 98.6 F 105 H 20 154/83 H 98 07/22/18 00:01 07/22/18 00:01 07/22/18 00:01 07/22/18 00:01 07/22/18 00:01 - Medications Medications: Current Medications Atorvastatin Calcium (Lipitor) 10 mg PO DIN [facility] Last Admin: 07/21/18 17:35 Dose: 10 mg Diltiazem HCl (Cardizem Cd) 360 mg PO DAILY [facility] Last Admin: 07/21/18 09:46 Dose: 360 mg Doxycycline Hyclate (Doryx) 100 mg PO Q12 [facility] Stop: 07/24/18 11:58 Last Admin: 07/21/18 22:50 Dose: 100 mg Enoxaparin Sodium (Lovenox) 60 mg SC Q12H [facility]; Protocol Last Admin: 07/21/18 22:50 Dose: 60 mg Furosemide (Lasix) 40 mg PO DAILY [facility] Last Admin: 07/21/18 09:47 Dose: 40 mg Levalbuterol HCl (Xopenex) 0.63 mg IH [id number] [facility] Last Admin: 07/22/18 01:55 Dose: Not Given Metoprolol Succinate (Toprol Xl) 25 mg PO BID [facility] Last Admin: 07/21/18 17:36 Dose: 25 mg Pantoprazole Sodium (Protonix Ec Tab) 40 mg PO DAILY [facility] Last Admin: 07/21/18 09:48 Dose: 40 mg Phenytoin Sodium (Dilantin) 100 mg PO TID [facility] Last Admin: 07/21/18 17:35 Dose: 100 mg - Labs Labs: 07/22/18 07:00 07/22/18 07:00 PT 12.5 SECONDS (9.4-12.5) 07/22/18 07:00 INR 1.09 07/22/18 07:00 APTT 31.5 Seconds (25.1-36.5) 07/22/18 07:00 - Constitutional Appears: Non-toxic, No Acute Distress - Head Exam Head Exam: ATRAUMATIC, NORMOCEPHALIC - ENT Exam ENT Exam: Mucous Membranes Moist - Cardiovascular Exam Cardiovascular Exam: absent: Tachycardia - GI/Abdominal Exam GI & Abdominal Exam: Soft. absent: Distended, Guarding, Tenderness Assessment and Plan - Assessment and Plan (Free Text) Assessment: 82 y/o male w/ TV adenoma in Right colon Plan: -plan for right hemicolectomy Thursday -needs abx prep and colon prep today -NPO dinner time today -rec heme/onc evaluation for pancytopenia and recs prior to OR -will need PRBC and platelets on hold -am labs -d/w Dr Larkin [facility] PGY4
--- NOTE | 2018-07-22 09:10 | PN ---
DATE: 07/21/2018 REASON FOR CONSULTATION AND FOLLOWUP: Preop evaluation and risk stratification. SUBJECTIVE: Patient denies any chest pain, shortness of breath, or any palpitation. This note is an addition to dictated by nurse practitioner. Discussed with Dr. Larkin. Discussed with Dr. Hartman yesterday. Patient has preserved LV function. Does not need Entresto at this time. We will continue Lovenox, awaiting to go for surgery. When the surgery is done for atrial fibrillation, we will start Eliquis. We will clear the patient to go for surgery with a [id number] risk of underlying comorbidities. Patient has a preop stress test on echo done in March for endovascular repair at that time. Negative stress test. We will follow with you. No further cardiac workup is planned preop. Patient is cleared to go for surgery with a moderate -to-high risk probably comorbidity, but no contraindication. Thank you, Dr. Larkin as well as Dr. Hartman, for providing us the opportunity in taking care of the patient, Roshan Hale. Gladis Greenfield MD
[2018-07-22] MEDS: Metoprolol Succinate 25 mg XL Tab PO SCH ×2 (10:12→18:13)
[2018-07-22] MEDS: Pantoprazole 40 mg EC Tab PO SCH (10:13)
[2018-07-22] MEDS: Enoxaparin 60 mg Syringe SC SCH (10:13)
[2018-07-22] MEDS: diltiaZEM 180 mg/24 Hours CD Cap PO SCH (10:14)
[2018-07-22] MEDS ORDERED: Lactated Ringer's 1,000 ML IV SCH ×2 (12:00→13:59)
--- NOTE | 2018-07-22 17:15 | PN ---
DATE: 07/22/2018 SUBJECTIVE: The patient is 82 years old, seen and examined, not very happy to be drinking GoLYTELY. He states it is very cumbersome and he is to have frequent bathroom trips, otherwise doing okay. PHYSICAL EXAMINATION: VITAL SIGNS: The patient is afebrile, pulse 52, respirations 20, and blood pressure 118/69. LUNGS: Bilateral fair airflow. No rhonchi or crackle. HEART: S1 and S2 audible, irregular rate , controlled. ABDOMEN: Soft, colostomy in place. EXTREMITIES: Bilateral legs, no edema. LABORATORY EXAM: WBC is 2.4, hemoglobin 7.9, hematocrit 24.8, and platelets of 81. Chemistry: Sodium 140, potassium 3.9, chloride 103, CO2 of 32. BUN 27, creatinine 0.9. Blood sugar of 95. Procalcitonin 0.05. ASSESSMENT: 1. 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 2. Pancytopenia. 3. Chronic atrial fibrillation. 4. History of seizure disorder. 5. Hyperlipidemia. 6. Hypertension. 7. History of aortic aneurysm repair. PLAN: We will give him one blood transfusion. Finally agreed to have evaluation done by Dr. Ledezma, I will discuss with her. His surgery is on hold because of pancytopenia. I will get opinion from Dr. Ledezma for further recommendations. We will follow up his CBC by 6 o'clock in the a.m. Tri Fleming MD
[2018-07-22] MEDS ORDERED: ERYthromycin Base 250 MG DR Cap PO SCH (18:00)
[2018-07-22 18:36] LABS: HEMOGLOBIN 9.7 g/dL (14.0-18.0); MEAN CELL VOLUME 95.6 fl (80.0-105.0); MEAN CORPUSCULAR HEMOGLOBIN 30.5 pg (25.0-35.0); MEAN CORPUSCULAR HGB CONC 31.9 g/dl (31.0-37.0); MEAN PLATELET VOLUME 8.6 fl (7.0-11.0); RBC 3.18 10^6/uL (3.5-6.1); RED CELL DISTRIBUTION WIDTH 16.1 % (11.5-14.5); WHITE BLOOD COUNT 3.2 10^3/ul (4.5-11.0)
--- NOTE | 2018-07-22 20:40 | CP.PCM.PN ---
Subjective - Date & Time of Evaluation Date of Evaluation: 07/22/18 Time of Evaluation: 11:15 - Subjective Subjective: Afebrile, not in distress, cough and breathing are ok. Objective - Vital Signs/Intake and Output Vital Signs (last 24 hours): Temp Pulse Resp BP Pulse Ox 98.6 F 105 H 20 154/83 H 98 07/22/18 00:01 07/22/18 00:01 07/22/18 00:01 07/22/18 00:01 07/22/18 00:01 - Medications Medications: Current Medications Atorvastatin Calcium (Lipitor) 10 mg PO DIN [facility] Last Admin: 07/21/18 17:35 Dose: 10 mg Diltiazem HCl (Cardizem Cd) 360 mg PO DAILY [facility] Last Admin: 07/21/18 09:46 Dose: 360 mg Doxycycline Hyclate (Doryx) 100 mg PO Q12 [facility] Stop: 07/24/18 11:58 Last Admin: 07/21/18 22:50 Dose: 100 mg Enoxaparin Sodium (Lovenox) 60 mg SC Q12H [facility]; Protocol Last Admin: 07/21/18 22:50 Dose: 60 mg Furosemide (Lasix) 40 mg PO DAILY [facility] Last Admin: 07/21/18 09:47 Dose: 40 mg Levalbuterol HCl (Xopenex) 0.63 mg IH [id number] [facility] Last Admin: 07/22/18 01:55 Dose: Not Given Metoprolol Succinate (Toprol Xl) 25 mg PO BID [facility] Last Admin: 07/21/18 17:36 Dose: 25 mg Pantoprazole Sodium (Protonix Ec Tab) 40 mg PO DAILY [facility] Last Admin: 07/21/18 09:48 Dose: 40 mg Phenytoin Sodium (Dilantin) 100 mg PO TID [facility] Last Admin: 07/21/18 17:35 Dose: 100 mg - Labs Labs: 07/22/18 07:00 07/22/18 07:00 PT 12.5 SECONDS (9.4-12.5) 07/22/18 07:00 INR 1.09 07/22/18 07:00 APTT 31.5 Seconds (25.1-36.5) 07/22/18 07:00 - Constitutional Appears: Chronically Ill - Head Exam Head Exam: NORMAL INSPECTION - Respiratory Exam Respiratory Exam: Decreased Breath Sounds - Cardiovascular Exam Cardiovascular Exam: +S1, +S2 - GI/Abdominal Exam GI & Abdominal Exam: Soft. absent: Tenderness Assessment and Plan - Assessment and Plan (Free Text) Plan: Assessment S/P treatment for HCAP rectal cancer atrial fibrillation GERD anxiety disorder chronic CHF CAD Plan continue to monitor off antibiotics since he is at risk for nosocomial infections
--- NOTE | 2018-07-22 21:05 | CON ---
DATE: 07/22/2018 CONSULT REQUESTED BY: Tri Fleming MD REASON FOR CONSULTATION: Thrombocytopenia, anemia, for surgery tomorrow. HISTORY OF PRESENT ILLNESS: Mr. Hale is an 82-year-old male admitted to the hospital because of the bleeding in the colostomy bag. He has a history of rectal cancer, has colostomy. Diagnosed with tubulovillous adenoma. He is being prepared for left hemicolectomy tomorrow. 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 He also has history of aortic aneurysm repaired. Platelet count today was 87,000, white count 3.2. PAST MEDICAL HISTORY: Aortic aneurysm , seizure disorder, hypertension, hyperlipidemia, thrombocytopenia, atrial fibrillation on Eliquis, status post colostomy. ALLERGIES: HE IS NOT ALLERGIC TO ANY MEDICATIONS. HOME MEDICATIONS: Diltiazem, Dilantin, metoprolol, Lipitor, aspirin, Eliquis 5 mg twice a day. SOCIAL HISTORY: Lives alone. He has a daughter who lives nearby. REVIEW OF SYSTEMS: As per HPI. Rest of 12-point review of systems reviewed, negative. PHYSICAL EXAMINATION: GENERAL: Comfortable in bed, in no acute distress. VITAL SIGNS: Temperature 98.7, heart rate 80 per minute, blood pressure 100/70. HEENT: Pallor positive. NECK: No lymphadenopathy. CHEST: Air entry present and equal bilaterally. No added sounds. CARDIOVASCULAR: S1, S2 normal. No murmur. No gallop. ABDOMEN: Soft, nontender. No hepatosplenomegaly. Colostomy bag present. EXTREMITIES: Bilateral, no edema. LABORATORY DATA: White count 3.2, hemoglobin 9.7, hematocrit 30.4, platelet 87. Earlier lab was 7.9 hemoglobin, white count 2.5, platelet count 81,000. Creatinine 0.9. HIV nonreactive. MEDICATIONS: Reviewed. ASSESSMENT AND PLAN: Tubulovillous adenoma of the colon. He is being prepared for resection tomorrow. He received blood transfusion today. Repeat hemoglobin is 9.7. White count 2.4 in the morning, currently 3.2, platelet 87,000. He has received one unit of platelet transfusion today. I would recommend transfusing one unit of platelet in morning. Coagulations done today are within normal limits. He might need blood transfusion post surgery depending on the levels. He has chronic idiopathic thrombocytopenic purpura. Blood platelet count is adequate for major surgery. We will keep one unit of platelet hold in case of unexpected bleeding. He is currently on Lovenox 60 mg every 12 for atrial fibrillation, new onset, would hold the dose, evening dose and morning dose of Lovenox. We will resume Lovenox in postoperative period once cleared by Surgery. Thank you, Bernadette Reese, for allowing us to participate in Mr. Hale's care. Lesia Ledezma MD
[2018-07-22] MEDS ORDERED: Sodium Chloride 0.9% 1,000 ML IV SCH (22:45)
[2018-07-23 06:39] LABS: BASO # 0.01 K/mm3 (0.0-2.0); BASO % 0.4 % (0.0-3.0); EOS # 0.1 (0.0-0.7); EOS % 2.5 % (1.5-5.0); GRAN # 1.93 (1.4-6.5); GRAN % 68.9 % (50.0-68.0); HEMOGLOBIN 8.7 g/dL (14.0-18.0); LYMPH # 0.6 (1.2-3.4); LYMPH % 20.7 % (22.0-35.0); MEAN CELL VOLUME 96.2 fl (80.0-105.0); MEAN CORPUSCULAR HEMOGLOBIN 30.4 pg (25.0-35.0); MEAN CORPUSCULAR HGB CONC 31.6 g/dl (31.0-37.0); MEAN PLATELET VOLUME 9.3 fl (7.0-11.0); MONO # 0.2 (0.1-0.6); MONO % 7.5 % (1.0-6.0); RBC 2.86 10^6/uL (3.5-6.1); RED CELL DISTRIBUTION WIDTH 16.1 % (11.5-14.5)
[2018-07-23 06:51] LABS: BLOOD UREA NITROGEN 25 mg/dL (7-21); CALCIUM 8.9 mg/dL (8.4-10.5); GFR NON-AFRICAN AMERICAN > 60
--- NOTE | 2018-07-23 07:27 | CP.PCM.PN ---
Subjective - Date & Time of Evaluation Date of Evaluation: 07/23/18 Time of Evaluation: 06:35 - Subjective Subjective: No distress, awake, alert, going for surgery today Reason for consultation and follow up: Cardiac evaluation of Atrial fibrillation on Eliquis, admitted for GI bleeding, blood clots from colostomy bag, history of congestive heart failure, Seen and examined by me and Dr. Greenfield Objective - Vital Signs/Intake and Output Vital Signs (last 24 hours): Temp Pulse Resp BP Pulse Ox 97.9 F 90 20 115/66 98 07/23/18 02:23 07/23/18 02:23 07/23/18 02:23 07/23/18 02:23 07/22/18 16:26 Intake and Output: 07/23/18 07/23/18 06:59 18:59 Intake Total 297 Balance 297 - Medications Medications: Current Medications Atorvastatin Calcium (Lipitor) 10 mg PO DIN [facility] Last Admin: 07/22/18 22:14 Dose: 10 mg Diltiazem HCl (Cardizem Cd) 360 mg PO DAILY [facility] Last Admin: 07/22/18 10:14 Dose: 360 mg Enoxaparin Sodium (Lovenox) 60 mg SC Q12H [facility]; Protocol Last Admin: 07/22/18 10:13 Dose: 60 mg Furosemide (Lasix) 40 mg PO DAILY [facility] Last Admin: 07/22/18 10:14 Dose: Not Given Lactated Ringer's (Lactated Ringer's) 1,000 mls @ 40 mls/hr IV .Q24H [facility] Levalbuterol HCl (Xopenex) 0.63 mg IH [id number] [facility] Last Admin: 07/22/18 19:39 Dose: Not Given Metoprolol Succinate (Toprol Xl) 25 mg PO BID [facility] Last Admin: 07/22/18 18:13 Dose: 25 mg Ondansetron HCl (Zofran Inj) 4 mg IVP Q4H PRN PRN Reason: Nausea/Vomiting Pantoprazole Sodium (Protonix Ec Tab) 40 mg PO DAILY [facility] Last Admin: 07/22/18 10:13 Dose: 40 mg Phenytoin Sodium (Dilantin) 100 mg PO TID [facility] Last Admin: 07/22/18 18:13 Dose: 100 mg - Labs Labs: 07/22/18 18:10 07/23/18 06:00 PT 12.5 SECONDS (9.4-12.5) 07/22/18 07:00 INR 1.09 07/22/18 07:00 APTT 31.5 Seconds (25.1-36.5) 07/22/18 07:00 - Constitutional Appears: Non-toxic, No Acute Distress - Head Exam Head Exam: NORMAL INSPECTION, NORMOCEPHALIC - Eye Exam Eye Exam: Normal appearance - ENT Exam ENT Exam: Mucous Membranes Dry - Respiratory Exam Respiratory Exam: Clear to Ausculation Bilateral, NORMAL BREATHING PATTERN - Cardiovascular Exam Cardiovascular Exam: +S1, +S2 Additional comments: denies chest pain - GI/Abdominal Exam GI & Abdominal Exam: Soft, Normal Bowel Sounds Additional comments: colostomy - Extremities Exam Extremities Exam: Full ROM, Normal Capillary Refill - Neurological Exam Neurological Exam: Alert, Awake, Oriented x3 - Psychiatric Exam Psychiatric exam: Normal Affect, Normal Mood - Skin Skin Exam: Dry, Normal Color, Warm Assessment and Plan - Assessment and Plan (Free Text) Assessment: A 62 year old male who came in to the ER due to blood clots from colostomy bag. History of rectal cancer with resection in 2001, with colostomy, atrial fibrillation on Eliquis. TIA,former smoker, anxiety,history of fall, hyperlipidemia, urinary frequency and retention. Low hemoglobin upon admission. Transfused 2 units of PRBC. Repeat H/H stable. Eliquis stopped.Post EGD/colonoscopy-Zenkers diverticulum,gastritis, Ileocecal valve polypoid mass,ascending colon polyp,diverticulitis.Seen by General surgery No bleeding from colostomy. Started Lovenox for anticoagulation. Minimal hemoptysis. Pathology showed villous adenoma, ileocecal region.For right hemicolectomy Thursday. Patient is cleared for surgery from cardiac standpoint.Mo derate to high risk considering co-morbidities. No absolute contraindication to undergo surgery. For right hemicolectomy today. Plan: For right hemicolectomy today Controlled heart rate Controlled blood pressure Transfused PRBC and platelet yesterday Repeat H/H pending result Typed and crossmatched PRBC and platelets for surgery On Lipitor 10 mg daily, Cardizem 360 mg daily, Lasix 40 mg BID, Toprol 25 mg daily, Dilantin 100 mg TID, Lovenox 60 mg every 12 hours. Hold Lovenox Continue current medications Continue current treatment Chart reviewed Will follow up postoperatively Plan and treatment discussed with Dr. Greenfield
[2018-07-23 07:31] LABS: WHITE BLOOD COUNT 2.8 10^3/ul (4.5-11.0)
[2018-07-23] MEDS: Levalbuterol 0.63 MG/3 ML Inhal Soln UD IH SCH ×2 (07:50→13:56)
--- NOTE | 2018-07-23 09:05 | CP.PCM.PN ---
Subjective - Date & Time of Evaluation Date of Evaluation: 07/23/18 Time of Evaluation: 09:01 - Subjective Subjective: Surgery: Dr. Larkin Patient unable to tolerate prep yesterday. Patient also remaining pancytopenic w/ worsening leukopenia. Discussed with patient and Dr. Larkin, surgery with be cancelled. Patient needs work up and treatment for pancytopenia. Can schedule operation as outpatient elective once patient optimized from a heme/onc standpoint. Patient understands plan. Objective - Vital Signs/Intake and Output Vital Signs (last 24 hours): Temp Pulse Resp BP Pulse Ox 98.3 F 87 20 120/72 94 L 07/23/18 08:13 07/23/18 08:13 07/23/18 08:13 07/23/18 08:13 07/23/18 08:13 Intake and Output: 07/23/18 07/23/18 06:59 18:59 Intake Total 297 Balance 297 - Medications Medications: Current Medications Atorvastatin Calcium (Lipitor) 10 mg PO DIN [facility] Last Admin: 07/22/18 22:14 Dose: 10 mg Diltiazem HCl (Cardizem Cd) 360 mg PO DAILY [facility] Last Admin: 07/22/18 10:14 Dose: 360 mg Enoxaparin Sodium (Lovenox) 60 mg SC Q12H [facility]; Protocol Last Admin: 07/22/18 10:13 Dose: 60 mg Furosemide (Lasix) 40 mg PO DAILY [facility] Last Admin: 07/22/18 10:14 Dose: Not Given Lactated Ringer's (Lactated Ringer's) 1,000 mls @ 40 mls/hr IV .Q24H [facility] Levalbuterol HCl (Xopenex) 0.63 mg IH [id number] [facility] Last Admin: 07/23/18 07:50 Dose: Not Given Metoprolol Succinate (Toprol Xl) 25 mg PO BID [facility] Last Admin: 07/22/18 18:13 Dose: 25 mg Ondansetron HCl (Zofran Inj) 4 mg IVP Q4H PRN PRN Reason: Nausea/Vomiting Pantoprazole Sodium (Protonix Ec Tab) 40 mg PO DAILY [facility] Last Admin: 07/22/18 10:13 Dose: 40 mg Phenytoin Sodium (Dilantin) 100 mg PO TID [facility] Last Admin: 07/22/18 18:13 Dose: 100 mg - Labs Labs: 07/23/18 06:00 07/23/18 06:00 PT 12.5 SECONDS (9.4-12.5) 07/22/18 07:00 INR 1.09 07/22/18 07:00 APTT 31.5 Seconds (25.1-36.5) 07/22/18 07:00 - Constitutional Appears: Non-toxic, No Acute Distress - Head Exam Head Exam: ATRAUMATIC, NORMOCEPHALIC - Eye Exam Eye Exam: EOMI, Normal appearance - ENT Exam ENT Exam: Mucous Membranes Moist - Respiratory Exam Respiratory Exam: NORMAL BREATHING PATTERN. absent: Respiratory Distress - Cardiovascular Exam Cardiovascular Exam: REGULAR RHYTHM. absent: Tachycardia - GI/Abdominal Exam GI & Abdominal Exam: Soft. absent: Distended, Tenderness - Neurological Exam Neurological Exam: Alert, Awake - Psychiatric Exam Psychiatric exam: Normal Affect, Normal Mood - Skin Skin Exam: Dry, Warm Assessment and Plan - Assessment and Plan (Free Text) Assessment: 82 y/o male w/ TV adenoma of the right colon and hx of rectal CA s/p APR now with pancytopenia Plan: -can electively schedule colon resection as outpatient -needs work up and eval for pancytopenia with heme/onc -ok for diet -d/w Dr. Trae Osuna PGY4
--- NOTE | 2018-07-23 09:17 | PN ---
DATE: 07/22/2018 REASON FOR CONSULTATION AND FOLLOWUP: Preop evaluation; risk stratification; history of chronic atrial fibrillation, was on Eliquis, now on Lovenox. This note is an addition to note dictated by nurse practitioner, Evangelina Mcarthur. SUBJECTIVE: The patient denies any chest pain, shortness of breath, or any palpitation. The patient has recurrent polyp, requiring colon surgery. The patient 0.42 high-risk surgery because of underlying comorbidity. The patient had recently in 03/2018, AAA endovascular repair and preop, the patient underwent stress test and echo, preserved LV function, no evidence of ischemia. So we will continue Lovenox until the patient goes for surgery. I will hold the Lovenox 24-hour before the surgery. Since the patient is not going for surgery, we will cut down to Ringer lactate 50 mL an hour to prevent going into pulmonary edema and if the patient is not going for surgery tomorrow, suggest to discontinue IV fluid and start on Thursday. The patient is preparation. WBC count is low today and platelet count is low also, which is the baseline platelet. Thank you, Dr. Fleming, for providing us the opportunity in taking care of patient, Roshan Hale. Gladis Greenfield MD
[2018-07-23] MEDS: Metoprolol Succinate 25 mg XL Tab PO SCH ×2 (11:04→18:33)
[2018-07-23] MEDS: Pantoprazole 40 mg EC Tab PO SCH (11:14)
[2018-07-23] MEDS: diltiaZEM 180 mg/24 Hours CD Cap PO SCH (11:16)
--- NOTE | 2018-07-23 16:36 | PN ---
DATE: 07/23/2018 SUBJECTIVE: Patient is 82 years old, seen and examined, was scheduled for the surgery, but he did not finish all GoLYTELY, so there was some reservation to take him to the OR, although he was cleared from Hematology point of view. He was given one blood transfusion, patient has been n.p.o. PHYSICAL EXAMINATION GENERAL: Today, he is awake, alert, and oriented. Able to communicate. VITAL SIGNS: He is afebrile. Pulse 87, respirations 20, blood pressure 120/72. LUNGS: Bilateral fair airflow. No rhonchi or crackles. HEART: S1 and S2 audible. Not tachycardic, irregular, bur rate controlled. ABDOMEN: Soft, colostomy is empty. NEUROLOGIC: He is awake, alert, oriented, and communicative. LABORATORY DATA: WBC is 2.8, hemoglobin 8.7, hematocrit 27.5, and platelets of 99. Chemistry: Sodium 140, potassium 4.2, chloride 104, CO2 of 23. BUN 25, creatinine 1. Blood sugar of 82. LFTs are within normal limits. ASSESSMENT AND PLAN: Still with gastrointestinal bleed, status post colonoscopy, has villous adenoma. Plan for right hemicolectomy, still undecided. Patient was on Lovenox, off Eliquis. Discussed with him. He rather want to be on Coumadin. I spoke to Dr. Larkin who will go and see the patient again and discuss about having surgical intervention still. So we will follow up this patient in the a.m. Second possibility is he will be transferred to TCU where he will be optimized and possible surgical intervention . Tri Fleming MD
[2018-07-23 18:34] VITALS: BP 130/60; PULSE 80
[2018-07-23 18:35] VITALS: RESP 19; TEMP 98.2; O2SAT 100
--- NOTE | 2018-07-26 00:53 | CP.PCM.PN ---
Subjective - Date & Time of Evaluation Date of Evaluation: 07/23/18 Time of Evaluation: 09:00 - Subjective Subjective: surgery cancelled because patient did not drink the prep completely. Pancytopenia . He received one unit of PRBC yesterday. H/O ITP . No bleed. Objective - Vital Signs/Intake and Output Vital Signs (last 24 hours): Temp Pulse Resp BP Pulse Ox 98.2 F 80 19 130/60 100 07/23/18 18:00 07/23/18 18:33 07/23/18 18:00 07/23/18 18:33 07/23/18 18:00 - Labs Labs: 07/23/18 06:00 07/23/18 06:00 PT 12.5 SECONDS (9.4-12.5) 07/22/18 07:00 INR 1.09 07/22/18 07:00 APTT 31.5 Seconds (25.1-36.5) 07/22/18 07:00 - Constitutional Appears: Cachectic, Chronically Ill - Head Exam Head Exam: ATRAUMATIC, NORMAL INSPECTION, NORMOCEPHALIC - Eye Exam Eye Exam: Normal appearance - Neck Exam Neck Exam: Normal Inspection - Respiratory Exam Respiratory Exam: Clear to Ausculation Bilateral, NORMAL BREATHING PATTERN - Cardiovascular Exam Cardiovascular Exam: REGULAR RHYTHM, +S1, +S2 - GI/Abdominal Exam GI & Abdominal Exam: Soft, Normal Bowel Sounds - Extremities Exam Extremities Exam: Normal Inspection - Back Exam Back Exam: NORMAL INSPECTION - Neurological Exam Neurological Exam: Alert, Awake, Normal Gait, Oriented x3 - Psychiatric Exam Psychiatric exam: Normal Affect - Skin Skin Exam: Pallor Assessment and Plan - Assessment and Plan (Free Text) Assessment: 1. Pancytopenia : might have underlying MDS. s/p one unit of PRBC yesterday. Cancel platelet transfusion as surgery is cancelled. ANC is 1700. No increased risk of infections. will continue to monitor blood counts. 2. Hold coumadin. Continue lovenox in anticipation of surgery. 3. colonic adenoma. : surgery will be planned electively. Discussed with DR. Contreras. 4. He will be transferred to TCU. Discussed with Dr. Fleming.
--- NOTE | 2018-07-26 08:55 | PN ---
DATE: 07/23/2018 REASON FOR CONSULTATION: Preoperative evaluation, risk stratification. This note is in addition to the note dictated by the nurse practitioner. Patient is cleared to go for surgery if the patient is not going for surgery, postponed as per nurse, then consider starting Eliquis for atrial fibrillation which is on hold because of possible colorectal surgery. Currently, he is on Lovenox as a for atrial fibrillation. If the surgery is postponed, I will suggest to switch over to Lovenox and patient can be discharged. The Lovenox also on hold because of possible surgery. Continue rest of the medications. We will follow as outpatient. Thank you ____ for providing the opportunity in taking care of patient Roshan Hale. Gladis Greenfield MD
== END 2018-07-23 21:07 | DRG 393 ==
LOC: ED 16:30 → ERH 18:47 → OBSVTOIN 21:01 → ERH 21:20 → 2RSO 22:13 → 3RNO 07-18 16:23
PROVIDERS: ADMIT Internal Medicine; ATTEND Internal Medicine
PROC: 3E0F7GC Introduction of Other Therapeutic Substance into Respiratory Tract, Via Natural or Artificial Opening (ICD-10-PCS; 2018-07-13)
PROC: 30233N1 Transfusion of Nonautologous Red Blood Cells into Peripheral Vein, Percutaneous Approach (ICD-10-PCS; 2018-07-14)
PROC: 30233R1 Transfusion of Nonautologous Platelets into Peripheral Vein, Percutaneous Approach (ICD-10-PCS; 2018-07-16)
PROC: 0DJ08ZZ Inspection of Upper Intestinal Tract, Via Natural or Artificial Opening Endoscopic (ICD-10-PCS; 2018-07-16)
PROC: 0DBK8ZX Excision of Ascending Colon, Via Natural or Artificial Opening Endoscopic, Diagnostic (ICD-10-PCS; principal; 2018-07-16 13:15)
PROC: 0DBC8ZX Excision of Ileocecal Valve, Via Natural or Artificial Opening Endoscopic, Diagnostic (ICD-10-PCS; 2018-07-16 13:15)
DX: K94.01 Colostomy hemorrhage (principal); I50.23 Acute on chronic systolic (congestive) heart failure; J18.9 Pneumonia, unspecified organism; D69.3 Immune thrombocytopenic purpura; D62 Acute posthemorrhagic anemia; J44.0 Chronic obstructive pulmonary disease with (acute) lower respiratory infection; D61.818 Other pancytopenia; Y83.3 Surgical operation with formation of external stoma as the cause of abnormal reaction of the patient, or of later complication, without mention of misadventure at the time of the procedure; D12.2 Benign neoplasm of ascending colon; D12.0 Benign neoplasm of cecum; K57.30 Diverticulosis of large intestine without perforation or abscess without bleeding; K64.8 Other hemorrhoids; K29.50 Unspecified chronic gastritis without bleeding; K22.5 Diverticulum of esophagus, acquired; G40.909 Epilepsy, unspecified, not intractable, without status epilepticus; I48.2 Chronic atrial fibrillation; I25.10 Atherosclerotic heart disease of native coronary artery without angina pectoris; K21.9 Gastro-esophageal reflux disease without esophagitis; I11.0 Hypertensive heart disease with heart failure; I48.0 Paroxysmal atrial fibrillation; R09.02 Hypoxemia; Z79.01 Long term (current) use of anticoagulants; I27.20 Pulmonary hypertension, unspecified; I08.3 Combined rheumatic disorders of mitral, aortic and tricuspid valves; E78.5 Hyperlipidemia, unspecified; F41.9 Anxiety disorder, unspecified; Z85.048 Personal history of other malignant neoplasm of rectum, rectosigmoid junction, and anus; Q38.7 Congenital pharyngeal pouch; I25.2 Old myocardial infarction; Y95 Nosocomial condition; Z87.891 Personal history of nicotine dependence; Z86.73 Personal history of transient ischemic attack (TIA), and cerebral infarction without residual deficits; Z86.79 Personal history of other diseases of the circulatory system; Z85.820 Personal history of malignant melanoma of skin

== ENCOUNTER 2018-07-23 21:07 | Inpatient (IN) | payer MEDICARE ==
[2018-07-23] MEDS: Enoxaparin 60 mg Syringe SC SCH (23:24)
[2018-07-24] MEDS: Levalbuterol 0.63 MG/3 ML Inhal Soln UD IH SCH ×5 (01:55→19:32)
[2018-07-24] MEDS: Pantoprazole 40 mg EC Tab PO SCH (06:07)
[2018-07-24] MEDS: diltiaZEM 180 mg/24 Hours CD Cap PO SCH (09:18)
[2018-07-24] MEDS: Enoxaparin 60 mg Syringe SC SCH ×2 (09:20→21:15)
[2018-07-24] MEDS: Metoprolol Succinate 25 mg XL Tab PO SCH ×2 (09:21→17:15)
[2018-07-25] MEDS: Levalbuterol 0.63 MG/3 ML Inhal Soln UD IH SCH ×4 (01:23→19:26)
[2018-07-25] MEDS: Pantoprazole 40 mg EC Tab PO SCH (05:35)
[2018-07-25 08:36] LABS: BASO # 0.01 K/mm3 (0.0-2.0); BASO % 0.4 % (0.0-3.0); EOS # 0.1 (0.0-0.7); EOS % 3.2 % (1.5-5.0); GRAN # 1.77 (1.4-6.5); GRAN % 69.9 % (50.0-68.0); HEMOGLOBIN 8.8 g/dL (14.0-18.0); LYMPH # 0.5 (1.2-3.4); MEAN CELL VOLUME 95.9 fl (80.0-105.0); MEAN CORPUSCULAR HEMOGLOBIN 30.1 pg (25.0-35.0); MEAN CORPUSCULAR HGB CONC 31.4 g/dl (31.0-37.0); MEAN PLATELET VOLUME 8.5 fl (7.0-11.0); MONO # 0.2 (0.1-0.6); MONO % 7.5 % (1.0-6.0); RBC 2.92 10^6/uL (3.5-6.1); RED CELL DISTRIBUTION WIDTH 15.4 % (11.5-14.5)
[2018-07-25 08:52] LABS: WHITE BLOOD COUNT 2.5 10^3/ul (4.5-11.0)
[2018-07-25 08:56] LABS: ALB/GLOB RATIO 1.3 (1.1-1.8); ALBUMIN 3.1 g/dL (3.0-4.8); ALT/SGPT 45 U/L (7-56); AST/SGOT 36 U/L (17-59); BLOOD UREA NITROGEN 23 mg/dL (7-21); CALCIUM 8.4 mg/dL (8.4-10.5); GFR NON-AFRICAN AMERICAN > 60
[2018-07-25] MEDS: diltiaZEM 180 mg/24 Hours CD Cap PO SCH (09:59)
[2018-07-25] MEDS: Metoprolol Succinate 25 mg XL Tab PO SCH ×2 (10:00→17:25)
[2018-07-25] MEDS: Enoxaparin 60 mg Syringe SC SCH ×2 (12:20→21:40)
--- NOTE | 2018-07-25 17:18 | CP.PCM.CON ---
History of Present Illness - History of Present Illness History of Present Illness: Consulte for Dr. Larkin consulted for follow up Patient is an 82M with a PMH of HTN, stented AAA, seizures, GERD, zenker's diverticulum, atrial Fibrillation on Eliquis, and rectal cancer (s/p APR) who was evaluated for possible right hemicolectomy during his previous hospital stay due to a 35mm polyp found on recent colonoscopy. He understands that his hematologic and nutritional status will need to be optimized and that his surgery will be scheduled outpatient. He has no complaints at this time and denies CROWDER, CP, f/c, n/v, SOB, abdominal pain, and extremity pain. Review of Systems - Review of Systems All systems: reviewed and no additional remarkable complaints except (as per HPI) Past Patient History - Infectious Disease Hx of Infectious Diseases: None - Tetanus Immunizations Tetanus Immunization: Up to Date - Past Social History Smoking Status: Former Smoker - CARDIAC Hx Cardiac Disorders: Yes Hx Hypercholesterolemia: Yes Hx Hypertension: Yes - PULMONARY Hx Respiratory Disorders: Yes (USED TO SMOKE CIGARETTES.QUIT 1990) - NEUROLOGICAL HX Cerebrovascular Accident: Yes (aneurysm) - HEENT Hx HEENT Problems: Yes ([place] R ear, does not use hearing aid) Other/Comment: uses eyeglasses,uses dentures - RENAL Hx Chronic Kidney Disease: No - ENDOCRINE/METABOLIC Hx Endocrine Disorders: No - HEMATOLOGICAL/ONCOLOGICAL Hx Blood Disorders: Yes Hx Cancer: Yes (RECTAL CA) Other/Comment: 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, pt had resection for rectal ca no chemo no radiation has colostomy was dx in 2001 - INTEGUMENTARY Hx Dermatological Problems: Yes Hx Melanoma: Yes (RIGHT PINNA,HEAD) - MUSCULOSKELETAL/RHEUMATOLOGICAL Hx Falls: Yes (past) - GASTROINTESTINAL Hx Gastrointestinal Disorders: Yes Hx Colostomy: Yes (2001/empties 2x's a day brown stool) Hx Gastroesophageal Reflux: Yes HX Swallowing Problems: Yes Other/Comment: rectal cancer, dysphagia due to foreign body chicken bone removed by dr boo and dr wilson as per pt - GENITOURINARY/GYNECOLOGICAL Hx Reproductive Disorders: No - PSYCHIATRIC Hx Psychophysiologic Disorder: Yes Hx Anxiety: Yes - SURGICAL HISTORY Hx Surgeries: Yes - ANESTHESIA Hx Anesthesia Reactions: No Hx Malignant Hyperthermia: No Meds Allergies/Adverse Reactions: Allergies Allergy/AdvReac Type Severity Reaction Status Date / Time No Known Allergies Allergy Verified 07/12/18 16:57 - Medications Medications: Current Medications Atorvastatin Calcium (Lipitor) 10 mg PO DIN [facility] Last Admin: 07/24/18 17:15 Dose: 10 mg Diltiazem HCl (Cardizem Cd) 360 mg PO DAILY [facility] Last Admin: 07/25/18 09:59 Dose: 360 mg Enoxaparin Sodium (Lovenox) 60 mg SC Q12H [facility]; Protocol Last Admin: 07/25/18 12:20 Dose: 60 mg Furosemide (Lasix) 40 mg PO DAILY [facility] Last Admin: 07/25/18 10:08 Dose: Not Given Levalbuterol HCl (Xopenex) 0.63 mg IH [id number] [facility] Last Admin: 07/25/18 13:41 Dose: Not Given Metoprolol Succinate (Toprol Xl) 25 mg PO BID [facility] Last Admin: 07/25/18 10:00 Dose: 25 mg Ondansetron HCl (Zofran Inj) 4 mg IVP Q4H PRN PRN Reason: Nausea/Vomiting Pantoprazole Sodium (Protonix Ec Tab) 40 mg PO 0600 [facility] Last Admin: 07/25/18 05:35 Dose: 40 mg Phenytoin Sodium (Dilantin) 100 mg PO TID [facility] Last Admin: 07/25/18 13:47 Dose: 100 mg Physical Exam - Constitutional Appears: Well, Non-toxic, No Acute Distress, Cachectic, Chronically Ill - Head Exam Head Exam: ATRAUMATIC, NORMOCEPHALIC - Eye Exam Eye Exam: EOMI - ENT Exam ENT Exam: Mucous Membranes Moist - Respiratory Exam Respiratory Exam: NORMAL BREATHING PATTERN - Cardiovascular Exam Cardiovascular Exam: REGULAR RHYTHM - GI/Abdominal Exam GI & Abdominal Exam: Soft. absent: Distended, Guarding, Rigid, Tenderness Additional comments: stoma is pink well perfused patent and productive - Extremities Exam Extremities exam: Positive for: pedal pulses present. Negative for: calf tenderness, pedal edema, tenderness - Neurological Exam Neurological exam: Alert, Oriented x3 - Psychiatric Exam Psychiatric exam: Normal Affect, Normal Mood - Skin Skin Exam: Dry, Intact, Normal Color, Warm Results - Vital Signs Recent Vital Signs: Last Vital Signs Temp 98.3 F 07/25/18 16:00 Pulse 67 07/25/18 16:00 Resp 20 07/25/18 16:00 BP 115/67 07/25/18 16:00 Pulse Ox 98 07/25/18 16:00 - Labs Result Diagrams: 07/25/18 07:00 07/25/18 07:00 Labs: Laboratory Results - last 24 hr 07/25/18 07/25/18 07:00 07:00 WBC 2.5 L* RBC 2.92 L Hgb 8.8 L Hct 28.0 L MCV 95.9 MCH 30.1 MCHC 31.4 RDW 15.4 H Plt Count 91 L MPV 8.5 Gran % 69.9 H Lymph % (Auto) 19.0 L [place] % (Auto) 7.5 H Eos % (Auto) 3.2 Baso % (Auto) 0.4 Gran # 1.77 Lymph # (Auto) 0.5 L [place] # (Auto) 0.2 Eos # (Auto) 0.1 Baso # (Auto) 0.01 Sodium 139 Potassium 4.0 Chloride 104 Carbon Dioxide 30 Anion Gap 9 L BUN 23 H Creatinine 1.0 Est GFR ( Amer) > 60 Est GFR (Non-Af Amer) > 60 Random Glucose 107 Calcium 8.4 Total Bilirubin 0.5 AST 36 ALT 45 Alkaline Phosphatase 79 Total Protein 5.3 L Albumin 3.1 Globulin 2.3 Albumin/Globulin Ratio 1.3 Assessment & Plan - Assessment and Plan (Free Text) Assessment: 82 y/o male w/ TV adenoma of the right colon and hx of rectal CA s/p APR now with pancytopenia Plan: -can electively schedule colon resection as outpatient -needs work up/eval/treatment for pancytopenia with heme/onc -ok for diet -d/w Dr. Trae Erickson, PGY 1 - Date & Time Date: 07/25/18 Time: 16:00
[2018-07-26] MEDS: Levalbuterol 0.63 MG/3 ML Inhal Soln UD IH SCH ×4 (01:09→20:50)
--- NOTE | 2018-07-26 01:22 | PN ---
DATE: 07/25/2018 SUBJECTIVE: Patient is 82 years old, seen and examined, sitting in chair, seems to be comfortable. No more rectal bleeding. Eating and tolerating. No nausea or vomiting. No diarrhea. Colostomy is functioning. No active bleeding. PHYSICAL EXAMINATION: VITAL SIGNS: Patient is afebrile, pulse 84, respirations 18, blood pressure 118/70. LUNGS: Bilateral fair airflow. No rhonchi or crackle. HEART: S1 and S2 audible. ABDOMEN: Soft and nontender. Colostomy in place. LABORATORY EXAM: WBC 2.5, hemoglobin 8.8, hematocrit 28, platelets 91. Chemistry: Sodium 139, potassium 4, chloride 104, CO2 30, BUN 23, creatinine 1, blood sugar 107. ASSESSMENT: 1. Gastrointestinal bleed. 2. Symptomatic anemia, status post blood transfusion. 3. Status post colonoscopy through ostomy showing cecal villous adenoma. 4. Chronic atrial fibrillation. 5. History of aortic aneurysm repair. 6. Seizure disorder. PLAN: I had a long discussion with Dr. Ledezma who does not think that patient need workup for now and cause for patient's thrombocytopenia is ITP and anemia is secondary to blood loss. His pancytopenia can be addressed later on. At this point, since he needs surgical intervention, it is okay to go ahead for right hemicolectomy. I will talk to Dr. Larkin. I will hold off Coumadin, continue Lovenox and we will reevaluate patient in a.m. I had a long discussion with the patient. He is agreeable for surgical intervention. Tri Fleming MD
[2018-07-26] MEDS: Pantoprazole 40 mg EC Tab PO SCH (05:09)
[2018-07-26] MEDS: Enoxaparin 60 mg Syringe SC SCH ×2 (10:38→21:55)
[2018-07-26] MEDS: diltiaZEM 180 mg/24 Hours CD Cap PO SCH (10:38)
[2018-07-26] MEDS: Metoprolol Succinate 25 mg XL Tab PO SCH ×2 (10:39→17:09)
--- NOTE | 2018-07-26 15:59 | HP ---
HISTORY OF PRESENT ILLNESS: The patient is 82 years old, who is initially admitted because of blood in the stool in his colostomy. He does not have any abdominal pain. The patient has been on Eliquis because of AFib. He underwent colonoscopy through ostomy. He was found to have villous adenoma. Plan was to have surgical right hemicolectomy done, but because of the patient's thrombocytopenia and poor prep, actually the surgery was postponed and transferred to TCU for rehab. PAST MEDICAL HISTORY: He had significant past medical history of: 1. Seizure disorder. 2. Chronic AFib. 3. Hypertension. 4. Thrombocytopenia as per Dr. Ledezma, it is secondary to ITP. 5. Recently had abdominal aortic aneurysm repaired. 6. History of rectal carcinoma, status post AP resection and colostomy. ALLERGIES: HE IS NOT ALLERGIC TO ANY MEDICATIONS. MEDICATIONS AT HOME: He was on: 1. Dilantin. 2. Lasix. 3. Aspirin. 4. Eliquis. SOCIAL HISTORY: He used to be a smoker in remote past, but quit in 1990. Denies alcohol use. PHYSICAL EXAMINATION GENERAL: On examination, he is awake, alert, oriented and communicative. VITAL SIGNS: He is afebrile, pulse 77, respirations 20 and blood pressure 130/72. LUNGS: Bilateral fair airflow. No rhonchi or crackle. HEART: S1 and S2 audible. ABDOMEN: Soft, colostomy in place. NEUROLOGICAL: He is awake, alert, oriented and communicative. ASSESSMENT: 1. Gastrointestinal bleed secondary to villous adenoma eventually needed right hemicolectomy. 2. Thrombocytopenia secondary to ITP. 3. Seizure disorder. 4. Hypertension. 5. Hyperlipidemia. 6. Chronic atrial fibrillation. 7. Chronic obstructive pulmonary disease. PLAN: I discussed with Dr. Ledezma; in her opinion, leukopenia should not be a reason to defer surgery; however, he can be prepped by giving platelet prior to surgical intervention and he can be supported by giving infusion and by giving blood transfusion in case his hemoglobin drops. So I will reach out to surgical team Dr. Larkin if he can be prepped again for possible surgical intervention. I will hold off chemo and Coumadin and continue Lovenox. We will follow up CBC, CMP . Tri Fleming MD [facility] # [id number]
--- NOTE | 2018-07-26 18:42 | PN ---
DATE: 07/26/2018 SUBJECTIVE: The patient is 82 years old, seen and examined, lying in bed, seems to be comfortable. Denies any nausea or vomiting. No chest pain, no shortness of breath. PHYSICAL EXAMINATION VITAL SIGNS: He is afebrile, pulse 79, respirations 16, and blood pressure 141/63. LUNGS: Bilateral fair airflow. No rhonchi or crackle. HEART: S1, S2 audible. ABDOMEN: Soft, nontender. No rebound, no guarding. NEUROLOGIC: The patient is awake, alert, oriented, able to communicate, ambulatory. ASSESSMENT: 1. Status post gastrointestinal bleed, status post colonoscopy as well as adenoma. 2. Hypertension. 3. Idiopathic thrombocytopenia. 4. Seizure disorder. 5. Chronic atrial fibrillation. PLAN: Currently, the patient is on . He is on phenytoin. He is on Lovenox for AFib. He is on Protonix. We will continue all these medications. I spoke to Dr. Du to proceed for surgery since the patient need to be prepped and need to be given platelet infusion and blood transfusion if needed prior to surgery. Dr. Du will discuss with the patient and make a plan. Tri Fleming MD
--- NOTE | 2018-07-26 21:27 | CP.PCM.PCO ---
Physician Communication Note - Physician Communication Note Physician Communication Note: Patient/PMD requesting OR this week(Post d/c)
--- NOTE | 2018-07-27 00:29 | CP.PCM.CON ---
History of Present Illness - History of Present Illness History of Present Illness: Pt. admitted with colonic adenoma. H/O colon cancer in past, s/p colonic resection. Now with pancytopenia. He has history of chronic ITP for past many years. platelet count has been in range of 80k-100k. recently was found to have iron deficiency anemia likely due to chronic GI bleed . Weight loss for past few years. On dilantin for seizure disorder. Review of Systems - Constitutional Constitutional: As Per HPI - EENT Eyes: absent: As Per HPI, Blind Spots, Blurred Vision, Change in Vision, Decreased Night Vision, Diplopia, Discharge, Dry Eye, Exophthalmos, Floaters, Irritation, Itchy Eyes, Loss of Peripheral Vision, Pain, Photophobia, Requires Corrective Lenses, Sees Flashes, Spots in Vision, Tunnel Vision, Other Visual Disturbances, Loss of Vision, Other Ears: absent: As Per HPI, Decreased Hearing, Ear Discharge, Ear Pain, Tinnitus, Abnormal Hearing, Disequilibrium, Dizziness, Other Nose/Mouth/Throat: absent: As Per HPI, Epistaxis, Nasal Congestion, Nasal D ischarge, Nasal Obstruction, Nasal Trauma, Nose Pain, Post Nasal Drip, Sinus Pain, Sinus Pressure, Bleeding Gums, Change in Voice, Dental Pain, Dry Mouth, Dysphagia, Halitosis, Hoarsness, Lip Swelling, Mouth Lesions, Mouth Pain, Odynophagia, Sore Throat, Throat Swelling, Tongue Swelling, Facial Pain, Neck Pain, Neck Mass, Other - Cardiovascular Cardiovascular: absent: As Per HPI, Acrocyanosis, Chest Pain, Chest Pain at Rest, Chest Pain with Activity, Claudication, Diaphoresis, Dyspnea, Dyspnea on Exertion, Edema, Irregular Heart Rhythm, Pain Radiating to Arm/Neck/Jaw, Leg Edema, Leg Ulcers, Lightheadedness, Orthopnea, Palpitations, Paroxysmal Nocturnal Dyspnea, Pedal Edema, Radiating Pain, Rapid Heart Rate, Slow Heart Rate, Syncope, Other - Respiratory Respiratory: absent: As Per HPI, Cough, Dyspnea, Hemoptysis, Dyspnea on Exertion, Wheezing, Snoring, Stridor, Pain on Inspiration, Chest Congestion, Excessive Mucous Production, Change in Mucous Color, Pain with Coughing, Other - Gastrointestinal Gastrointestinal: As Per HPI - Genitourinary Genitourinary: absent: As Per HPI, Change in Urinary Stream, Difficulty Urinating, Dysuria, Flank Pain, Hematuria, Pyuria, Nocturia, Urinary Incontinence, Urinary Frequency, Urinary Hesitance, Urinary Urgency, Voiding Freq/Small Amts, Freq UTI, Hx Renal/Bladder Calculi, Hx /Renal Surgery, Bladder Distension, Other - Integumentary Integumentary: absent: As Per HPI, Acne, Alopecia, Bleeding Lesions, Change in Hair, Change in Nails, Change in Pigmentation, Changing Lesions, Dry Skin, Erythema, Furuncle, Hirsutism, Lesions, New Lesions, Non-Healing Lesions, Photosensitivity, Pruritus, Rash, Skin Pain, Skin Ulcer, Sores, Striae, Swelling, Unusual Bruising, Wounds, Jaundice, Other - Neurological Neurological: absent: As Per HPI, Abnormal Gait, Abnormal Hearing, Abnormal Movements, Abnormal Speech, Behavioral Changes, Burning Sensations, Confusion, Convulsions, Disequilibrium, Dizziness, Numbness, Focal Weakness, Frequent Falls, Headaches, Lack of Coordination, Loss of Vision, Memory Loss, Paresthesia s, Radicular Pain, Restless Legs, Sensory Deficit, Syncope, Tingling, Tremor, Vertigo, Weakness, Other Visual Disturbances, Other - Endocrine Endocrine: absent: As Per HPI, Change in Body Appearance, Change in Libido, Cold Intolorance, Deepening of Voice, Excessive Sweating, Fatigue, Flushing, Heat Intolorance, Increase in Ring/Shoe/Hat Size, Palpitations, Polydipsia, Polyphagia, Polyuria, Other - Hematologic/Lymphatic Hematologic: As Per HPI Past Patient History - Infectious Disease Hx of Infectious Diseases: None - Tetanus Immunizations Tetanus Immunization: Up to Date - Past Social History Smoking Status: Former Smoker - CARDIAC Hx Cardiac Disorders: Yes Hx Hypercholesterolemia: Yes Hx Hypertension: Yes - PULMONARY Hx Respiratory Disorders: Yes (USED TO SMOKE CIGARETTES.QUIT 1990) - NEUROLOGICAL HX Cerebrovascular Accident: Yes (aneurysm) - HEENT Hx HEENT Problems: Yes ([place] R ear, does not use hearing aid) Other/Comment: uses eyeglasses,uses dentures - RENAL Hx Chronic Kidney Disease: No - ENDOCRINE/METABOLIC Hx Endocrine Disorders: No - HEMATOLOGICAL/ONCOLOGICAL Hx Blood Disorders: Yes Hx Cancer: Yes (RECTAL CA) Other/Comment: 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, pt had resection for rectal ca no chemo no radiation has colostomy was dx in 2001 - INTEGUMENTARY Hx Dermatological Problems: Yes Hx Melanoma: Yes (RIGHT PINNA,HEAD) - MUSCULOSKELETAL/RHEUMATOLOGICAL Hx Falls: Yes (past) - GASTROINTESTINAL Hx Gastrointestinal Disorders: Yes Hx Colostomy: Yes (2001/empties 2x's a day brown stool) Hx Gastroesophageal Reflux: Yes HX Swallowing Problems: Yes Other/Comment: rectal cancer, dysphagia due to foreign body chicken bone removed by dr boo and dr wilson as per pt - GENITOURINARY/GYNECOLOGICAL Hx Reproductive Disorders: No - PSYCHIATRIC Hx Psychophysiologic Disorder: Yes Hx Anxiety: Yes - SURGICAL HISTORY Hx Surgeries: Yes - ANESTHESIA Hx Anesthesia Reactions: No Hx Malignant Hyperthermia: No Meds Allergies/Adverse Reactions: Allergies Allergy/AdvReac Type Severity Reaction Status Date / Time No Known Allergies Allergy Verified 07/12/18 16:57 - Medications Medications: Current Medications Atorvastatin Calcium (Lipitor) 10 mg PO DIN [facility] Last Admin: 07/26/18 17:09 Dose: 10 mg Bisacodyl (Dulcolax) 5 mg PO ONCE ONE Stop: 07/27/18 10:01 Diltiazem HCl (Cardizem Cd) 360 mg PO DAILY [facility] Last Admin: 07/26/18 10:38 Dose: 360 mg Enoxaparin Sodium (Lovenox) 60 mg SC Q12H [facility]; Protocol Last Admin: 07/26/18 21:55 Dose: 60 mg Furosemide (Lasix) 40 mg PO DAILY [facility] Last Admin: 07/26/18 10:39 Dose: 40 mg Levalbuterol HCl (Xopenex) 0.63 mg IH [id number] [facility] Last Admin: 07/26/18 14:07 Dose: Not Given Metoprolol Succinate (Toprol Xl) 25 mg PO BID [facility] Last Admin: 07/26/18 17:09 Dose: 25 mg Neomycin Sulfate (Neomycin Tab) 500 mg PO Q8H [facility] Stop: 07/29/18 23:59 Ondansetron HCl (Zofran Inj) 4 mg IVP Q4H PRN PRN Reason: Nausea/Vomiting Pantoprazole Sodium (Protonix Ec Tab) 40 mg PO 0600 [facility] Last Admin: 07/26/18 05:09 Dose: 40 mg Phenytoin Sodium (Dilantin) 100 mg PO TID [facility] Last Admin: 07/26/18 17:09 Dose: 100 mg Physical Exam - Constitutional Appears: Cachectic - Head Exam Head Exam: ATRAUMATIC, NORMAL INSPECTION, NORMOCEPHALIC - Eye Exam Eye Exam: Normal appearance - ENT Exam ENT Exam: Mucous Membranes Moist, Normal Exam - Neck Exam Neck exam: Positive for: Normal Inspection - Respiratory Exam Respiratory Exam: Clear to Auscultation Bilateral, NORMAL BREATHING PATTERN - Cardiovascular Exam Cardiovascular Exam: REGULAR RHYTHM, +S1, +S2 - GI/Abdominal Exam GI & Abdominal Exam: Normal Bowel Sounds, Soft - Extremities Exam Extremities exam: Positive for: normal inspection - Back Exam Back exam: NORMAL INSPECTION - Neurological Exam Neurological exam: Alert, CN II-XII Intact, Oriented x3 - Skin Skin Exam: Normal Color, Warm Results - Vital Signs Recent Vital Signs: Last Vital Signs Temp 97.6 F 07/26/18 16:00 Pulse 90 07/26/18 17:09 Resp 18 07/26/18 16:00 BP 133/76 07/26/18 17:09 Pulse Ox 96 07/26/18 16:00 - Labs Result Diagrams: 07/25/18 07:00 07/25/18 07:00 Assessment & Plan - Assessment and Plan (Free Text) Assessment: 1. Pacytopenia : low white count can be due drug related, likely dilantin, MDS or autoimmune. he has history of ITP. Platelet count stable. Iron deficiency anemia, stable Hb/Hct. ANC is good at 1700. No hematological contraindication for surgery. 2. h/o colon cancer. New colonic adenoma. will await surgical path. 3. renal stable. 4. Weight loss recent : work up after surgery. Thank you Dr. Fleming for allowing us to participate in his care. - Date & Time Date: 07/26/18 Time: 18:00
[2018-07-27] MEDS: Levalbuterol 0.63 MG/3 ML Inhal Soln UD IH SCH ×4 (02:46→20:25)
[2018-07-27] MEDS: Pantoprazole 40 mg EC Tab PO SCH (05:32)
[2018-07-27] MEDS: Metoprolol Succinate 25 mg XL Tab PO SCH ×3 (08:00→17:48)
[2018-07-27] MEDS: diltiaZEM 180 mg/24 Hours CD Cap PO SCH (09:33)
[2018-07-27] MEDS: Enoxaparin 60 mg Syringe SC SCH ×2 (09:36→17:48)
[2018-07-27] MEDS ORDERED: Bisacodyl 5mg EC Tab PO ONE (10:00)
--- NOTE | 2018-07-27 17:30 | PN ---
DATE: 07/27/2018 FOLLOWUP NOTE SUBJECTIVE: He is comfortable in bed, in no acute distress. Denies any complaints. No bleeding from any site. He is on Transitional Care Unit for gait improvement history. 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 He also has history of ITP. His platelet count has been in the range of 90,000-100,000. Currently, developed new iron-deficiency anemia, status post PRBC transfusion and 2 doses of IV iron. REVIEW OF SYSTEMS: As per HPI. Rest of 12-point review of systems reviewed negative. MEDICATIONS: Lipitor 10 mg daily, Cardizem 360 mg p.o. daily, Lovenox 60 mg subcutaneous every 12, Lasix 40 mg daily, Xopenex, metoprolol 25 mg b.i.d., Neomycin, Zofran p.r.n., Dilantin 100 mg p.o. t.i.d. LABORATORY DATA: White count 2.5, hemoglobin 8.8, platelet count 91,000. Sodium 139, potassium 4, BUN 23, creatinine 1. PHYSICAL EXAMINATION: GENERAL: Comfortable in bed, in no acute distress. VITAL SIGNS: Temperature 97.8, blood pressure 134/82, respiratory rate 16 per minute, heart rate is 99, pulse ox on room air. HEENT: Pallor positive. NECK: No lymphadenopathy. CHEST: Air entry present and equal, bilateral. No added sound. CARDIOVASCULAR: S1, S2 normal. No murmur. No gallop. ABDOMEN: Soft, nontender. Colostomy present, bag present. No inflammation around the bag. EXTREMITIES: No edema. PRAWN TRAWLER HAND: Alert and oriented x3. No focal sensorimotor deficits. SPINE: Nontender. SKIN: No petechiae. No rash. ASSESSMENT AND PLAN: 1. History of colon cancer, now tubulovillous adenoma of the colon. Surgery planned for this Thursday. We will transfuse platelets and blood as needed prior to surgery. Lovenox should be on hold the day prior to surgery. We will resume Lovenox postoperatively when cleared by Surgery. 2. History of idiopathic thrombocytopenic purpura, chronic thrombocytopenia. 3. Iron-deficiency anemia. Hemoglobin and hematocrit stable. Leukopenia, white count 2.5. ANC is still good at 1800. Leukopenia might be related to Dilantin. Since ANC is more than 1000, there is no increased postoperative risk for infection. No contraindication for surgery. He will continue physical therapy until surgery, then he will be admitted to the regular floor. Discussed with Dr. Fleming. Lesia Ledezma MD
--- NOTE | 2018-07-27 21:04 | PN ---
DATE: 07/27/2018 SUBJECTIVE: The patient is 82-year-old. PHYSICAL EXAMINATION: GENERAL: The patient is awake, alert, oriented, able to communicate. VITAL SIGNS: The patient is afebrile, pulse 83, respirations 16, blood pressure 128/74. LUNGS: Bilateral fair airflow. No rhonchi or crackle. HEART: S1 and S2 audible. ABDOMEN: Soft. Nontender. No rebound. No guarding. NEUROLOGIC: The patient is awake, alert, oriented, communicative, ambulatory. ASSESSMENT: 1. Pancytopenia. 2. Idiopathic thrombocytopenic purpura. 3. Seizure disorder. 4. Hypertension. 5. History of chronic obstructive pulmonary disease. 6. Anemia secondary to blood loss from villous adenoma. 7. Atrial fibrillation. PLAN: We will start preparation by tomorrow and patient is scheduled to have right hemicolectomy done on Thursday. Tri Fleming MD
[2018-07-28] MEDS: Levalbuterol 0.63 MG/3 ML Inhal Soln UD IH SCH ×4 (01:50→21:18)
[2018-07-28] MEDS: Pantoprazole 40 mg EC Tab PO SCH (05:38)
[2018-07-28] MEDS: Enoxaparin 60 mg Syringe SC SCH ×2 (05:38→17:21)
[2018-07-28] MEDS: Metoprolol Succinate 25 mg XL Tab PO SCH ×2 (07:57→17:22)
[2018-07-28] MEDS ORDERED: Magnesium Citrate Oral SOL (300 ml) PO ONE (08:46)
[2018-07-28 09:48] LABS: BASO # 0.02 K/mm3 (0.0-2.0); BASO % 0.8 % (0.0-3.0); EOS # 0.1 (0.0-0.7); EOS % 2.7 % (1.5-5.0); GRAN # 1.8 (1.4-6.5); GRAN % 70.6 % (50.0-68.0); HEMOGLOBIN 10.2 g/dL (14.0-18.0); LYMPH # 0.4 (1.2-3.4); LYMPH % 14.1 % (22.0-35.0); MEAN CELL VOLUME 95.6 fl (80.0-105.0); MEAN CORPUSCULAR HEMOGLOBIN 30.2 pg (25.0-35.0); MEAN CORPUSCULAR HGB CONC 31.6 g/dl (31.0-37.0); MEAN PLATELET VOLUME 8.3 fl (7.0-11.0); MONO # 0.3 (0.1-0.6); MONO % 11.8 % (1.0-6.0); RBC 3.38 10^6/uL (3.5-6.1); RED CELL DISTRIBUTION WIDTH 15.3 % (11.5-14.5)
[2018-07-28 09:50] LABS: WHITE BLOOD COUNT 2.6 10^3/ul (4.5-11.0)
[2018-07-28 10:05] LABS: ALB/GLOB RATIO 1.3 (1.1-1.8); ALBUMIN 3.2 g/dL (3.0-4.8); ALT/SGPT 36 U/L (7-56); AST/SGOT 33 U/L (17-59); BLOOD UREA NITROGEN 31 mg/dL (7-21); CALCIUM 8.5 mg/dL (8.4-10.5); GFR NON-AFRICAN AMERICAN > 60
[2018-07-28] MEDS: diltiaZEM 180 mg/24 Hours CD Cap PO SCH (12:00)
[2018-07-28 17:07] VITALS: RESP 18
--- NOTE | 2018-07-28 22:23 | PN ---
DATE: 07/28/2018 SUBJECTIVE: The patient is 82 years old, seen and examined, ambulatory. Denies any nausea or vomiting. No diarrhea. PHYSICAL EXAMINATION: VITAL SIGNS: He is afebrile, pulse 91, respirations 18, blood pressure 129/90. LUNGS: Bilateral fair airflow. No rhonchi or crackle. HEART: S1 and S2 audible. Irregular, rate controlled. ABDOMEN: Soft, nontender. No rebound. No guarding. NEUROLOGICAL: Patient is awake, alert, oriented, communicative. LABORATORY EXAM: WBC 2.9, hemoglobin 10.2, hematocrit 32.3, platelet of 92. Chemistry: Sodium 138, potassium 4.4, chloride 102, CO2 of 31, BUN 31, creatinine 0.9. Blood sugar of 146. Stool hemoccult done on 07/27/2018 is negative. ASSESSMENT: 1. Pancytopenia. 2. Hypertension. 3. Seizure disorder. 4. Villous adenoma upon colonoscopy. 5. Idiopathic thrombocytopenia. PLAN: Patient is being prepped for possible right hemicolectomy on Thursday. He is on laxative. He is on Dulcolax. Getting nebulizer treatment. I will make it p.r.n. We will follow up patient in a.m. Tri Fleming MD
[2018-07-29] MEDS: Levalbuterol 0.63 MG/3 ML Inhal Soln UD IH SCH ×3 (01:19→19:16)
[2018-07-29] MEDS: Enoxaparin 60 mg Syringe SC SCH (05:22)
[2018-07-29] MEDS: Pantoprazole 40 mg EC Tab PO SCH (05:22)
[2018-07-29] MEDS: Metoprolol Succinate 25 mg XL Tab PO SCH ×2 (08:52→17:51)
[2018-07-29] MEDS: diltiaZEM 180 mg/24 Hours CD Cap PO SCH (14:03)
[2018-07-29] MEDS ORDERED: Magnesium Citrate Oral SOL (300 ml) PO ONE (15:14)
--- NOTE | 2018-07-29 16:15 | RAD ---
Date of service: 07/29/2018 HISTORY: pneumonia COMPARISON: 07/13/2018 TECHNIQUE: Chest PA and lateral FINDINGS: LUNGS: There is resolution of the previously seen infiltrate or pulmonary edema in the right lung. PLEURA: No significant pleural effusion identified. No pneumothorax apparent. CARDIOVASCULAR: Mild aortic calcification Moderate cardiomegaly OSSEOUS STRUCTURES: No significant abnormalities. VISUALIZED UPPER ABDOMEN: Normal. OTHER FINDINGS: None. IMPRESSION: There is resolution of the previously seen infiltrate or pulmonary edema in the right lung.
[2018-07-29 16:41] VITALS: TEMP 97.4
[2018-07-30] MEDS: Levalbuterol 0.63 MG/3 ML Inhal Soln UD IH SCH (01:22)
--- NOTE | 2018-07-30 01:43 | PN ---
DATE: 07/29/2018 SUBJECTIVE: The patient is 82 years old, seen and examined, ambulatory. No chest pain, no shortness of breath. Eating and tolerating. Currently on clear liquid diet and getting laxatives. To be prepped for right hemicolectomy in a.m. PHYSICAL EXAMINATION: VITAL SIGNS: He is afebrile, pulse 89, respirations 18, blood pressure 140/74. LUNGS: Bilateral fair airflow. No rhonchi or crackle. HEART: S1 and S2 audible. ABDOMEN: Soft, nontender. No rebound. No guarding. NEUROLOGICAL: The patient is awake, alert, oriented, communicative, ambulatory. LABORATORY DATA: There is no new lab available today. ASSESSMENT: 1. Villous adenoma, requiring right hemicolectomy, plan for a.m. 2. Seizure disorder. 3. Hypertension. 4. Hyperlipidemia. 5. Thrombocytopenia. PLAN: Currently, the patient is on nebulizer treatment. He is on metoprolol. He is receiving Protonix. Continue Cardizem. We will follow up. The patient will be discharged in the a.m. and he will be admitted to same-day surgery. Tri Fleming MD
--- NOTE | 2018-07-30 02:48 | CP.PCM.PCO ---
Physician Communication Note - Physician Communication Note Physician Communication Note: Pt for OR 10:30 today-Bleeding GI Tumor
[2018-07-30 05:23] VITALS: BP 133/85; PULSE 90; O2SAT 97
[2018-07-30] MEDS: Pantoprazole 40 mg EC Tab PO SCH (05:23)
[2018-07-30 05:39] LABS: INR 1.04; PARTIAL THROMBOPLASTIN TIME 29.6 Seconds (25.1-36.5)
--- NOTE | 2018-07-30 06:55 | CP.PCM.PCO ---
Physician Communication Note - Physician Communication Note Physician Communication Note: + Blood in stoma(Prep):Admit MedSurgery--?OR this am
[2018-07-30 22:59] LABS: GRAN # 7.48 (1.4-6.5); GRAN % 90.4 % (50.0-68.0); HEMOGLOBIN 9.9 g/dL (14.0-18.0); LYMPH # 0.3 (1.2-3.4); MEAN CELL VOLUME 95.7 fl (80.0-105.0); MEAN CORPUSCULAR HEMOGLOBIN 30.1 pg (25.0-35.0); MEAN CORPUSCULAR HGB CONC 31.4 g/dl (31.0-37.0); MEAN PLATELET VOLUME 8.3 fl (7.0-11.0); MONO # 0.5 (0.1-0.6); MONO % 5.6 % (1.0-6.0); PLATELET COUNT 91 10^3/uL (120.0-450.0); RBC 3.29 10^6/uL (3.5-6.1); RED CELL DISTRIBUTION WIDTH 15.2 % (11.5-14.5); WHITE BLOOD COUNT 8.3 10^3/ul (4.5-11.0)
[2018-07-30 23:09] LABS: BLOOD UREA NITROGEN 23 mg/dL (7-21); CALCIUM 8.3 mg/dL (8.4-10.5); GFR NON-AFRICAN AMERICAN > 60
[2018-07-31 01:00] LABS: BAND 2 % (0-2); LYMPHOCYTE 5 % (22.0-35.0); MONOCYTE 5 % (1.0-6.0); NEUTROPHIL 88 % (50.0-70.0); PLATELET ESTIMATE LOW (NORMAL)
== END 2018-07-30 06:05 | disposition short-term general hospital (02) | DRG 394 ==
LOC: TRCU 21:07
PROVIDERS: ADMIT Internal Medicine; ATTEND Internal Medicine
PROC: F07Z9ZZ Gait Training/Functional Ambulation Treatment (ICD-10-PCS; principal; 2018-07-25)
PROC: F07Z5ZZ Bed Mobility Treatment (ICD-10-PCS; 2018-07-25)
PROC: F07L6ZZ Therapeutic Exercise Treatment of Musculoskeletal System - Lower Back / Lower Extremity (ICD-10-PCS; 2018-07-25)
PROC: F08Z1FZ Dressing Techniques Treatment using Assistive, Adaptive, Supportive or Protective Equipment (ICD-10-PCS; 2018-07-25)
PROC: F08Z2ZZ Grooming/Personal Hygiene Treatment (ICD-10-PCS; 2018-07-25)
PROC: F07Z8FZ Transfer Training Treatment using Assistive, Adaptive, Supportive or Protective Equipment (ICD-10-PCS; 2018-07-26)
DX: D12.6 Benign neoplasm of colon, unspecified (principal); D69.3 Immune thrombocytopenic purpura; K92.2 Gastrointestinal hemorrhage, unspecified; D61.818 Other pancytopenia; D50.0 Iron deficiency anemia secondary to blood loss (chronic); E78.00 Pure hypercholesterolemia, unspecified; E78.5 Hyperlipidemia, unspecified; G40.909 Epilepsy, unspecified, not intractable, without status epilepticus; I10 Essential (primary) hypertension; I48.2 Chronic atrial fibrillation; J44.9 Chronic obstructive pulmonary disease, unspecified; K22.5 Diverticulum of esophagus, acquired; K21.9 Gastro-esophageal reflux disease without esophagitis; Z86.73 Personal history of transient ischemic attack (TIA), and cerebral infarction without residual deficits; Z87.891 Personal history of nicotine dependence; Z85.048 Personal history of other malignant neoplasm of rectum, rectosigmoid junction, and anus; Z93.3 Colostomy status; Z85.820 Personal history of malignant melanoma of skin; Z79.01 Long term (current) use of anticoagulants; R63.4 Abnormal weight loss

== ENCOUNTER 2018-07-30 06:02 | Inpatient (IN) | payer MEDICARE, OTHER ==
[2018-07-30 05:29] LABS: BASO # 0.01 K/mm3 (0.0-2.0); BASO % 0.4 % (0.0-3.0); EOS # 0.1 (0.0-0.7); EOS % 3.2 % (1.5-5.0); GRAN # 1.52 (1.4-6.5); GRAN % 61.5 % (50.0-68.0); HEMOGLOBIN 11.1 g/dL (14.0-18.0); LYMPH # 0.5 (1.2-3.4); LYMPH % 21.1 % (22.0-35.0); MEAN CELL VOLUME 95.2 fl (80.0-105.0); MEAN CORPUSCULAR HEMOGLOBIN 29.8 pg (25.0-35.0); MEAN CORPUSCULAR HGB CONC 31.3 g/dl (31.0-37.0); MEAN PLATELET VOLUME 8.7 fl (7.0-11.0); MONO # 0.3 (0.1-0.6); MONO % 13.8 % (1.0-6.0); RBC 3.73 10^6/uL (3.5-6.1); RED CELL DISTRIBUTION WIDTH 15.1 % (11.5-14.5)
[2018-07-30 05:44] LABS: WHITE BLOOD COUNT 2.5 10^3/ul (4.5-11.0)
[2018-07-30 06:22] LABS: BLOOD UREA NITROGEN 24 mg/dL (7-21); GFR NON-AFRICAN AMERICAN > 60
--- NOTE | 2018-07-30 06:34 | ED PDOC ---
Arrival/HPI - General Chief Complaint: Medical Clearance Time Seen by Provider: 07/30/18 06:10 Historian: Patient - History of Present Illness Narrative History of Present Illness (Text): Pt is an 82 y o M who has a h/o AAA s/p repair, HTN, AFib, seizure d/o, thrombocytopenia presents to the ED from TCU to be admitted to the hospital for right hemicolectomy. Pt's labs and cxr were already performed in TCU. Patient has colostomy and was initally admitted the to the hospital for evaluation of blood in colostomy bag. He underwent colonoscopy via ostomy and was found to have villous adenoma. Patient has no new complaints. Symptom Onset: Other (None) Context: Other (TCU) Past Medical History - Provider Review Nursing Documentation Reviewed: Yes - Infectious Disease Hx of Infectious Diseases: None - Tetanus Immunization Tetanus Immunization: Up to Date - Cardiac Hx Pacemaker: No - Pulmonary Hx Respiratory Disorders: Yes (USED TO SMOKE CIGARETTES.QUIT 1990) - Neurological Hx Paralysis: No - HEENT Hx HEENT Disorder: Yes ([place] R ear, does not use hearing aid) Other/Comment: uses eyeglasses,uses dentures - Renal Hx Renal Disorder: No - Endocrine/Metabolic Hx Endocrine Disorders: No - Hematological/Oncological Hx Blood Transfusions: Yes (PLATELETS 07/2018) Hx Blood Transfusion Reaction: No - Integumentary Hx Dermatological Disorder: Yes Hx Melanoma: Yes (RIGHT PINNA,HEAD) - Musculoskeletal/Rheumatological Hx Musculoskeletal Disorders: Yes - Gastrointestinal Hx Gastrointestinal Disorders: Yes Hx Colostomy: Yes (2001/empt 2x's a day brown stool) Hx Gastroesophageal Reflux: Yes HX Swallowing Problems: Yes Other/Comment: rectal cancer, dysphagia due to foreign body chicken bone removed by dr boo and dr wilson as per pt - Genitourinary/Gynecological Hx Reproductive Disorders: No - Psychiatric Hx Emotional Abuse: No Hx Physical Abuse: No Hx Substance Use: No - Surgical History Hx Appendectomy: Yes Other/Comment: colostomy due to rectal ca, angioplasty - Anesthesia Hx Anesthesia Reactions: No Hx Malignant Hyperthermia: No - Suicidal Assessment Feels Threatened In Home Enviroment: No Family/Social History - Physician Review Nursing Documentation Reviewed: Yes Family/Social History: Unknown Family HX Smoking Status: Former Smoker Hx Alcohol Use: No Hx Substance Use: No Hx Substance Use Treatment: No Allergies/Home Meds Allergies/Adverse Reactions: Allergies No Known Allergies Allergy (Verified 07/12/18 16:57) Home Medications: Home Meds Medication Instructions Recorded Confirmed RX: Phenytoin Sodium Extended 100 mg PO TID 11/12/13 07/30/18 [Dilantin] Atorvastatin [Lipitor] 10 mg PO DIN 07/30/18 07/30/18 Levalbuterol [Xopenex] 0.63 mg IH Q6 07/30/18 07/30/18 RX: Metoprolol Succinate XL 25 mg PO BID 07/30/18 07/30/18 [Toprol XL] RX: Pantoprazole Sodium [Protonix] 40 mg PO DAILY 07/30/18 07/30/18 [id number] CD [Cardizem CD] 360 mg PO DAILY 07/30/18 07/30/18 Review of Systems - Physician Review All systems were reviewed & negative as marked: Yes - Review of Systems Constitutional: Normal Eyes: Normal ENT: Normal Respiratory: Normal Cardiovascular: Normal Gastrointestinal: Normal Genitourinary Male: Normal Musculoskeletal: Normal Skin: Normal Neurological: Normal Endocrine: Normal Hemo/Lymphatic: Normal Psychiatric: Normal Physical Exam Vital Signs Reviewed: Yes Vital Signs Temp Pulse Resp BP Pulse Ox 07/30/18 06:06 97.6 F 80 18 125/69 95 Temperature: Afebrile Blood Pressure: Normal Pulse: Regular Respiratory Rate: Normal Appearance: Positive for: Well-Appearing, Non-Toxic, Comfortable Pain Distress: None Mental Status: Positive for: Alert and Oriented X 3 - Systems Exam Head: Present: Atraumatic, Normocephalic Pupils: Present: PERRL Extroacular Muscles: Present: EOMI Conjunctiva: Present: Normal Mouth: Present: Moist Mucous Membranes Pharnyx: Present: Normal Neck: Present: Normal Range of Motion Respiratory/Chest: Present: Clear to Auscultation, Good Air Exchange. No: Respiratory Distress Cardiovascular: Present: Other (irregularly irregular rhythm) Abdomen: Present: Normal Bowel Sounds, Other (+colostomy). No: Tenderness, Distention Genitourinary Male: Present: Prostate Tenderness Upper Extremity: Present: Normal Inspection Lower Extremity: Present: Normal Inspection. No: Edema Neurological: Present: GCS=15, Speech Normal Skin: Present: Warm, Dry, Normal Color Psychiatric: Present: Alert, Oriented x 3, Normal Insight, Normal Concentration Medical Decision Making ED Course and Treatment: 07/30/18 06:15 Pt is an 82 y o M who has a h/o AAA s/p repair, HTN, AFib, seizure d/o, thrombocytopenia presents to the ED from TCU to be admitted to the hospital for right hemicolectomy. Pt's labs and cxr were already performed in TCU. Patient has colostomy and was initally admitted the to the hospital for evaluation of blood in colostomy bag. He underwent colonoscopy via ostomy and was found to have villous adenoma. Patient has no new complaints. 07/30/18 06:20 Case d/w Dr. Fleming who states pt is to be admitted to Dr. Rocael Du. 07/30/18 06:36 Case d/w Dr. Du who states pt is to be admitted to [facility] under his service and transported to the same day surgery suite by 9:30 am. He also requested surgical training specialist be notified of patient's location. Disposition/Present on Arrival - Present on Arrival Any Indicators Present on Arrival: No History of DVT/PE: No History of Uncontrolled Diabetes: No Urinary Catheter: No History of Decub. Ulcer: No History Surgical Site Infection Following: None - Disposition Have Diagnosis and Disposition been Completed?: Yes Diagnosis: GIB (gastrointestinal bleeding), Malignant tumor of cecum Disposition: HOSPITALIZED Disposition Time: 06:36 Patient Plan: Admission Patient Problems: Current Active Problems Problem Status Onset Gastrointestinal hemorrhage Acute Malignant tumor of cecum Acute Condition: STABLE
[2018-07-30] MEDS ORDERED: Metoprolol Succinate 25 mg XL Tab PO ONE (09:47)
[2018-07-30] MEDS ORDERED: Lidocaine PF 2% (5 ml) Inj (For Cardiac Arrhy) ONE (10:41)
[2018-07-30] MEDS ORDERED: Propofol 10 mg/ml Inj (20 ML) ONE (10:41)
[2018-07-30] MEDS ORDERED: Rocuronium 10 mg/ml (5 ml) ONE ×2 (10:42→13:00)
[2018-07-30] MEDS ORDERED: metroNIDAZOLE IV 500 mg/100 ml 500 MG/100 ML BAG ONE (10:57)
[2018-07-30] MEDS ORDERED: Bupivacaine 0.5% 50 ML IJ ONE (10:58)
[2018-07-30] MEDS ORDERED: MetroNIDAZOLE 500 mg/100 ml IVPB ONE (11:00)
[2018-07-30] MEDS ORDERED: Desflurane Inhalation Anesthetic Liq (240 ml) ONE (11:02)
[2018-07-30] MEDS ORDERED: CeFAZolin 1 gm in NS 100ml IVPB ONE (11:10)
[2018-07-30] MEDS ORDERED: Oxychlorosene Topical 2 gm Packet TOP ONE (12:30)
[2018-07-30] MEDS ORDERED: Bupivacaine Liposomal Inj 20 ml ONE (13:06)
[2018-07-30] MEDS ORDERED: Neostigmine Methylsulfate 3mg/3ml Syringe IV ONE (13:21)
[2018-07-30] MEDS ORDERED: Glycopyrrolate 0.2 mg/ml (2ml vial) ONE (13:22)
--- NOTE | 2018-07-30 13:43 | PCM.SURG1 ---
Surgeon's Initial Post Op Note - Surgeon's Notes Surgeon: Dr. Du Baseball Glove Stuffer: Dr. Cardenas PGY3, Dr. Lawler PGY3 Type of Anesthesia: General Endo Anesthesia Administered By: Dr. López Pre-Operative Diagnosis: Cecal Mass, Parastomal Hernia Operative Findings: See operative dictation Post-Operative Diagnosis: Same Operation Performed: Right Hemicolectomy, and parastomal herniorraphy Specimen/Specimens Removed: Right colon and distal ileum Estimated Blood Loss: EBL {In ML}: 75 Blood Products Given: Platlets Drains Used: Fabian Post-Op Condition: Good Date of Surgery/Procedure: 07/30/18 Time of Surgery/Procedure: 13:43
[2018-07-30] MEDS ORDERED: Lactated Ringer's 1,000 ML IV SCH (13:45)
[2018-07-30] MEDS ORDERED: Morphine 4 mg/ml ISec ONE ×3 (13:47→16:15)
[2018-07-30] MEDS ORDERED: Morphine 2 mg/ml ISec IVP ONE ×2 (13:50→14:18)
--- NOTE | 2018-07-30 15:17 | CP.PCM.HP ---
<Randolph Lawler - Last Filed: 07/30/18 15:14> History of Present Illness - History of Present Illness History of Present Illness: Patient is an 82M with a PMH of HTN, stented AAA, seizures, GERD, zenker's diverticulum, atrial Fibrillation on Eliquis, and rectal cancer (s/p APR) who was evaluated for possible right hemicolectomy during his previous hospital stay due to a 35mm polyp found on recent colonoscopy. Patient will undergo right hemicolectomy with parastomal hernia repair today. Denies headaches/dizziness, fever/chills, chest pain, shortness of breath, nausea/vomiting, diarrhea, d ysuria. Reports mild cough. Present on Admission - Present on Admission Any Indicators Present on Admission: No Review of Systems - Review of Systems Review of Systems: 10 pt ROS unremarkable, except as stated in HPI Past Patient History - Infectious Disease Hx of Infectious Diseases: None - Tetanus Immunizations Tetanus Immunization: Up to Date - Past Social History Smoking Status: Former Smoker - CARDIAC Hx Pacemaker: No - PULMONARY Hx Respiratory Disorders: Yes (USED TO SMOKE CIGARETTES.QUIT 1990) - NEUROLOGICAL Hx Paralysis: No - HEENT Hx HEENT Problems: Yes ([place] R ear, does not use hearing aid) Other/Comment: uses eyeglasses,uses dentures - RENAL Hx Chronic Kidney Disease: No - ENDOCRINE/METABOLIC Hx Endocrine Disorders: No - HEMATOLOGICAL/ONCOLOGICAL Hx Blood Transfusions: Yes (PLATELETS 07/2018) Hx Blood Transfusion Reaction: No - INTEGUMENTARY Hx Dermatological Problems: Yes Hx Melanoma: Yes (RIGHT PINNA,HEAD) - MUSCULOSKELETAL/RHEUMATOLOGICAL Hx Musculoskeletal Disorders: Yes - GASTROINTESTINAL Hx Gastrointestinal Disorders: Yes Hx Colostomy: Yes (2001/empt 2x's a day brown stool) Hx Gastroesophageal Reflux: Yes HX Swallowing Problems: Yes Other/Comment: rectal cancer, dysphagia due to foreign body chicken bone removed by dr boo and dr wilson as per pt - GENITOURINARY/GYNECOLOGICAL Hx Reproductive Disorders: No - PSYCHIATRIC Hx Emotional Abuse: No Hx Physical Abuse: No Hx Substance Use: No - SURGICAL HISTORY Hx Surgeries: Yes - ANESTHESIA Hx Anesthesia Reactions: No Hx Malignant Hyperthermia: No Meds Allergies/Adverse Reactions: Allergies Allergy/AdvReac Type Severity Reaction Status Date / Time No Known Allergies Allergy Verified 07/12/18 16:57 Physical Exam - Constitutional Appears: No Acute Distress - Head Exam Head Exam: NORMOCEPHALIC - Eye Exam Eye Exam: EOMI, Normal appearance - ENT Exam ENT Exam: Mucous Membranes Moist - Cardiovascular Exam Cardiovascular Exam: +S1, +S2 - GI/Abdominal Exam GI & Abdominal Exam: Soft - Neurological Exam Neurological exam: Alert, Oriented x3 - Psychiatric Exam Psychiatric exam: Normal Mood - Skin Skin Exam: Dry, Warm Results - Vital Signs Recent Vital Signs: Last Vital Signs Temp 97.6 F 07/30/18 14:55 Pulse 92 H 07/30/18 14:55 Resp 18 07/30/18 14:55 BP 141/78 07/30/18 14:55 Pulse Ox 98 07/30/18 14:55 - Labs Result Diagrams: 07/30/18 05:15 07/30/18 05:15 Labs: Laboratory Results - last 24 hr 07/30/18 07/30/18 07/30/18 05:15 05:15 05:15 WBC 2.5 L* RBC 3.73 Hgb 11.1 L Hct 35.5 L MCV 95.2 MCH 29.8 MCHC 31.3 RDW 15.1 H Plt Count 93 L MPV 8.7 Gran % 61.5 Lymph % (Auto) 21.1 L [place] % (Auto) 13.8 H Eos % (Auto) 3.2 Baso % (Auto) 0.4 Gran # 1.52 Lymph # (Auto) 0.5 L [place] # (Auto) 0.3 Eos # (Auto) 0.1 Baso # (Auto) 0.01 Sodium 137 Potassium 4.5 Chloride 98 Carbon Dioxide 34 H Anion Gap 10 BUN 24 H Creatinine 1.0 Est GFR ( Amer) > 60 Est GFR (Non-Af Amer) > 60 Random Glucose 111 H Calcium 9.0 Blood Type O POSITIVE Antibody Screen Negative Crossmatch See Detail BBK History Checked Patient has bt Assessment & Plan - Assessment and Plan (Free Text) Assessment: 82M found to have 35mm polyp in ileocecal valve Plan: -OR today -transfuse platelets intraoperatively -Plan for right hemicolectomy and parastomal hernia repair -D/w Dr. Florian Aly PGY3 <Rocael Du - Last Filed: 07/30/18 20:31> Results - Vital Signs Recent Vital Signs: Last Vital Signs Temp 98.2 F 07/30/18 18:00 Pulse 115 H 07/30/18 18:00 Resp 16 07/30/18 18:00 BP 134/84 07/30/18 18:00 Pulse Ox 95 07/30/18 18:00 - Labs Result Diagrams: 07/30/18 16:30 07/30/18 05:15 Labs: Laboratory Results - last 24 hr 07/30/18 07/30/18 07/30/18 05:15 05:15 05:15 WBC 2.5 L* RBC 3.73 Hgb 11.1 L Hct 35.5 L MCV 95.2 MCH 29.8 MCHC 31.3 RDW 15.1 H Plt Count 93 L MPV 8.7 Gran % 61.5 Lymph % (Auto) 21.1 L [place] % (Auto) 13.8 H Eos % (Auto) 3.2 Baso % (Auto) 0.4 Gran # 1.52 Lymph # (Auto) 0.5 L [place] # (Auto) 0.3 Eos # (Auto) 0.1 Baso # (Auto) 0.01 Sodium 137 Potassium 4.5 Chloride 98 Carbon Dioxide 34 H Anion Gap 10 BUN 24 H Creatinine 1.0 Est GFR ( Amer) > 60 Est GFR (Non-Af Amer) > 60 Random Glucose 111 H Calcium 9.0 Blood Type O POSITIVE Antibody Screen Negative Crossmatch See Detail BBK History Checked Patient has bt 07/30/18 16:30 WBC 4.5 D RBC 3.37 L Hgb 10.2 L Hct 32.3 L MCV 95.8 MCH 30.3 MCHC 31.6 RDW 15.1 H Plt Count 92 L MPV 8.3 Gran % 82.4 H Lymph % (Auto) 9.9 L [place] % (Auto) 7.5 H Eos % (Auto) 0.2 L Baso % (Auto) 0.0 Gran # 3.73 Lymph # (Auto) 0.5 L [place] # (Auto) 0.3 Eos # (Auto) 0.0 Baso # (Auto) 0.00 Sodium Potassium Chloride Carbon Dioxide Anion Gap BUN Creatinine Est GFR ( Amer) Est GFR (Non-Af Amer) Random Glucose Calcium Blood Type Antibody Screen Crossmatch BBK History Checked Assessment & Plan - Assessment and Plan (Free Text) Plan: This consult done under my direct supervision Kiko Du MD FACS
[2018-07-30] MEDS: Morphine 2 mg/ml ISec IVP PRN ×2 (15:45→16:15)
[2018-07-30 16:43] LABS: EOS % 0.2 % (1.5-5.0); GRAN # 3.73 (1.4-6.5); GRAN % 82.4 % (50.0-68.0); HEMOGLOBIN 10.2 g/dL (14.0-18.0); LYMPH # 0.5 (1.2-3.4); LYMPH % 9.9 % (22.0-35.0); MEAN CELL VOLUME 95.8 fl (80.0-105.0); MEAN CORPUSCULAR HEMOGLOBIN 30.3 pg (25.0-35.0); MEAN CORPUSCULAR HGB CONC 31.6 g/dl (31.0-37.0); MEAN PLATELET VOLUME 8.3 fl (7.0-11.0); MONO # 0.3 (0.1-0.6); MONO % 7.5 % (1.0-6.0); RBC 3.37 10^6/uL (3.5-6.1); RED CELL DISTRIBUTION WIDTH 15.1 % (11.5-14.5); WHITE BLOOD COUNT 4.5 10^3/ul (4.5-11.0)
[2018-07-30] MEDS: Lactated Ringer's 1,000 ML IV SCH (18:47)
[2018-07-30] MEDS: metroNIDAZOLE IV 500 mg/100 ml 500 MG/100 ML BAG IVPB SCH (18:48)
[2018-07-30] MEDS ORDERED: Phenytoin 100 mg/2 ml Inj IVP SCH (18:59)
[2018-07-30] MEDS ORDERED: metroNIDAZOLE IV 500 mg/100 ml 500 MG/100 ML BAG IVPB SCH (19:00)
[2018-07-30 21:46] VITALS: BMI 21.1
[2018-07-30] MEDS ORDERED: Influenza Vaccine 60 mcg/0.5 mL SYR (4YR UP) IM ONE (21:47)
[2018-07-30] MEDS ORDERED: Pneumococcal 23-Valent Vaccine IM ONE (21:47)
--- NOTE | 2018-07-31 00:49 | CON ---
DATE: 07/30/2018 HISTORY OF PRESENT ILLNESS: The patient is 82 years old who was admitted because of GI bleed. The patient has a previous history of rectal carcinoma. He had AP resection and had colostomy. The patient also had history of AFib. For that, he was on Eliquis. So, GI consult was called. The patient was seen by Dr. Hinton who did the patient's colonoscopy through colostomy and found to have villous adenoma. He was scheduled to have a right hemicolectomy done. The patient was discharged form TCU and was readmitted on acute care floor for right hemicolectomy. PAST MEDICAL HISTORY: He has a complicated past medical history significant for, 1. Hypertension. 2. Chronic AFib. 3. Seizure disorder. 4. Abdominal aortic aneurysm repair. 5. Idiopathic thrombocytopenia. 6. Leukopenia. ALLERGIES: THE PATIENT IS NOT ALLERGIC TO ANY MEDICATION. MEDICATIONS: At home, he is on Dilantin 100 mg three times a day, Cardizem CD 360 daily, Lipitor 10 mg daily, Xopenex 0.63 every 6 hours, metoprolol 25 twice a day, Protonix 40 daily. SOCIAL HISTORY: He lives by himself. He used to be a smoker, but he quit in 1990. REVIEW OF SYSTEMS: No complaint of dizziness, no headache. No runny nose, no stuffy nose. No chest pain. No shortness of breath. PHYSICAL EXAMINATION: GENERAL: He was seen prior to going to OR. By this time, he was afebrile, pulse 77, respirations 18, blood pressure 127/87. CARDIOPULMONARY: S1, S2 audible. LUNGS: Bilateral fair air flow. No rhonchi or crackle. ABDOMEN: Soft, nontender. No rebound, no guarding. EXTREMITIES: Bilateral legs, no edema. NEUROLOGICAL: The patient is awake, alert, oriented, communicative. LABORATORY DATA: WBC is 2.5, hemoglobin 11, hematocrit 35, platelets 93. Chemistry, sodium 137, potassium 4.5, chloride 98, CO2 of 34, BUN 24, creatinine 1, blood sugar 111. ASSESSMENT: 1. Cecal villous adenoma, scheduled for right hemicolectomy. 2. Seizure disorder. 3. Hypertension. 4. Hyperlipidemia. 5. Idiopathic thrombocytopenia. 6. Chronic atrial fibrillation. PLAN: Post procedure, the patient will be admitted in . We will resume his medications. Give him IV fluid, give him analgesic, and follow up electrolyte and platelet infusion as needed. Tri Fleming MD
[2018-07-31] MEDS: metroNIDAZOLE IV 500 mg/100 ml 500 MG/100 ML BAG IVPB SCH (03:16)
[2018-07-31] MEDS: Lactated Ringer's 1,000 ML IV SCH (03:21)
[2018-07-31] MEDS: metroNIDAZOLE IV 500 mg/100 ml 500 MG/100 ML BAG IV SCH ×3 (05:19→21:36)
[2018-07-31] MEDS: cefTRIAXone 1 gm 1 GM/100 ML BAG IVPB SCH ×2 (06:11→11:32)
[2018-07-31 07:50] LABS: HEMOGLOBIN 9.6 g/dL (14.0-18.0); MEAN CELL VOLUME 96.3 fl (80.0-105.0); MEAN CORPUSCULAR HGB CONC 31.2 g/dl (31.0-37.0); MEAN PLATELET VOLUME 9.8 fl (7.0-11.0); RBC 3.2 10^6/uL (3.5-6.1); RED CELL DISTRIBUTION WIDTH 15.1 % (11.5-14.5); WHITE BLOOD COUNT 7.8 10^3/ul (4.5-11.0)
[2018-07-31 08:02] LABS: ALB/GLOB RATIO 1.3 (1.1-1.8); ALT/SGPT 33 U/L (7-56); AST/SGOT 31 U/L (17-59); BLOOD UREA NITROGEN 25 mg/dL (7-21); CALCIUM 8.5 mg/dL (8.4-10.5); GFR NON-AFRICAN AMERICAN 58
[2018-07-31] MEDS: HYDROmorphone 0.5 mg/0.5 ml ISec IVP PRN ×2 (08:29→17:12)
--- NOTE | 2018-07-31 09:26 | CP.PCM.CON ---
History of Present Illness - History of Present Illness History of Present Illness: Awake, alert, oriented, no distress Reason for consultation: Cardiac evaluation of chronic atrial fibrillation, status post right hemicolectomy POD #1 Brief history of present illness: A 82 year old male who came in to [facility] for elective right hemicolectomy yesterday. consult was called to follow up with history of chronic Atrial fibrillation (was on Eliquis). 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 Du. Seen and examined by me and Dr. Faye Review of Systems - Review of Systems All systems: reviewed and no additional remarkable complaints except Review of Systems: as per HPI Past Patient History - Infectious Disease Hx of Infectious Diseases: None - Tetanus Immunizations Tetanus Immunization: Up to Date - Past Social History Smoking Status: Former Smoker - CARDIAC Hx Pacemaker: No - PULMONARY Hx Respiratory Disorders: Yes (USED TO SMOKE CIGARETTES.QUIT 1990) - NEUROLOGICAL Hx Paralysis: No - HEENT Hx HEENT Problems: Yes ([place] R ear, does not use hearing aid) Other/Comment: uses eyeglasses,uses dentures - RENAL Hx Chronic Kidney Disease: No - ENDOCRINE/METABOLIC Hx Endocrine Disorders: No - HEMATOLOGICAL/ONCOLOGICAL Hx Blood Transfusions: Yes (PLATELETS 07/2018) Hx Blood Transfusion Reaction: No - INTEGUMENTARY Hx Dermatological Problems: Yes Hx Melanoma: Yes (RIGHT PINNA,HEAD) - MUSCULOSKELETAL/RHEUMATOLOGICAL Hx Musculoskeletal Disorders: Yes - GASTROINTESTINAL Hx Gastrointestinal Disorders: Yes Hx Colostomy: Yes (2001/empt 2x's a day brown stool) Hx Gastroesophageal Reflux: Yes HX Swallowing Problems: Yes Other/Comment: rectal cancer, dysphagia due to foreign body chicken bone removed by dr boo and dr wilson as per pt - GENITOURINARY/GYNECOLOGICAL Hx Reproductive Disorders: No - PSYCHIATRIC Hx Emotional Abuse: No Hx Physical Abuse: No Hx Substance Use: No - SURGICAL HISTORY Hx Appendectomy: Yes Other/Comment: colostomy due to rectal ca, angioplasty - ANESTHESIA Hx Anesthesia Reactions: No Hx Malignant Hyperthermia: No Meds Allergies/Adverse Reactions: Allergies Allergy/AdvReac Type Severity Reaction Status Date / Time No Known Allergies Allergy Verified 07/12/18 16:57 - Medications Medications: Current Medications Hydromorphone HCl (Dilaudid) 0.5 mg IVP Q4H PRN PRN Reason: Pain, moderate (4-7) Last Admin: 07/31/18 08:29 Dose: 0.5 mg Lactated Ringer's (Lactated Ringer's) 1,000 mls @ 100 mls/hr IV .Q10H [facility] Last Admin: 07/31/18 03:21 Dose: 100 mls/hr Metronidazole (Flagyl) 500 mg in 100 mls @ 100 mls/hr IV Q8 [facility]; Protocol Last Admin: 07/31/18 05:19 Dose: Not Given Ceftriaxone Sodium (Rocephin 1 Gram Ivpb) 1 gm in 100 mls @ 100 mls/hr IVPB DAILY [facility]; Protocol Last Admin: 07/31/18 06:11 Dose: 100 mls/hr Oxycodone/Acetaminophen (Percocet 5/325 Mg Tab) 1 tab PO Q4H PRN PRN Reason: Pain, moderate (4-7) Stop: 08/02/18 13:44 Pantoprazole Sodium (Protonix Inj) 40 mg IVP Q12 [facility] Last Admin: 07/30/18 22:14 Dose: Not Given Phenytoin (Dilantin) 100 mg IVP TID [facility] Last Admin: 07/30/18 19:47 Dose: 100 mg Physical Exam - Constitutional Appears: Non-toxic, No Acute Distress - Head Exam Head Exam: NORMAL INSPECTION, NORMOCEPHALIC - Eye Exam Eye Exam: Normal appearance Pupil Exam: NORMAL ACCOMODATION - ENT Exam ENT Exam: Mucous Membranes Dry, Normal Exam - Neck Exam Neck exam: Positive for: Full Rom, Normal Inspection - Respiratory Exam Respiratory Exam: Clear to Auscultation Bilateral, NORMAL BREATHING PATTERN - Cardiovascular Exam Cardiovascular Exam: REGULAR RHYTHM, +S1, +S2 Additional comments: Telemetry, normal sinus rhythm 90-100's no JVD, no murmur - GI/Abdominal Exam GI & Abdominal Exam: Normal Bowel Sounds, Soft Additional comments: colostomy right side abdominal dressing - Extremities Exam Extremities exam: Positive for: full ROM, normal capillary refill - Neurological Exam Neurological exam: Alert, Oriented x3 - Psychiatric Exam Psychiatric exam: Normal Affect, Normal Mood - Skin Skin Exam: Dry, Normal Color, Warm Results - Vital Signs Recent Vital Signs: Last Vital Signs Temp 98.4 F 07/31/18 06:00 Pulse 105 H 07/31/18 08:30 Resp 18 07/31/18 06:00 BP 124/63 07/31/18 08:30 Pulse Ox 95 07/30/18 18:00 - Labs Result Diagrams: 07/31/18 07:00 07/31/18 07:00 Labs: Laboratory Results - last 24 hr 07/30/18 07/30/18 07/30/18 05:15 05:15 05:15 WBC 2.5 L* RBC 3.73 Hgb 11.1 L Hct 35.5 L MCV 95.2 MCH 29.8 MCHC 31.3 RDW 15.1 H Plt Count 93 L MPV 8.7 Gran % 61.5 Lymph % (Auto) 21.1 L [place] % (Auto) 13.8 H Eos % (Auto) 3.2 Baso % (Auto) 0.4 Gran # 1.52 Lymph # (Auto) 0.5 L [place] # (Auto) 0.3 Eos # (Auto) 0.1 Baso # (Auto) 0.01 Sodium 137 Potassium 4.5 Chloride 98 Carbon Dioxide 34 H Anion Gap 10 BUN 24 H Creatinine 1.0 Est GFR ( Amer) > 60 Est GFR (Non-Af Amer) > 60 Random Glucose 111 H Calcium 9.0 Total Bilirubin AST ALT Alkaline Phosphatase Total Protein Albumin Globulin Albumin/Globulin Ratio Phenytoin Blood Type O POSITIVE Antibody Screen Negative Crossmatch See Detail BBK History Checked Patient has bt 07/30/18 07/31/18 07/31/18 16:30 07:00 07:00 WBC 4.5 D 7.8 RBC 3.37 L 3.20 L Hgb 10.2 L 9.6 L Hct 32.3 L 30.8 L MCV 95.8 96.3 MCH 30.3 30.0 MCHC 31.6 31.2 RDW 15.1 H 15.1 H Plt Count 92 L 94 L MPV 8.3 9.8 Gran % 82.4 H Lymph % (Auto) 9.9 L [place] % (Auto) 7.5 H Eos % (Auto) 0.2 L Baso % (Auto) 0.0 Gran # 3.73 Lymph # (Auto) 0.5 L [place] # (Auto) 0.3 Eos # (Auto) 0.0 Baso # (Auto) 0.00 Sodium 139 Potassium 4.9 Chloride 100 Carbon Dioxide 31 Anion Gap 12 BUN 25 H Creatinine 1.2 Est GFR ( Amer) > 60 Est GFR (Non-Af Amer) 58 Random Glucose 99 Calcium 8.5 Total Bilirubin 0.5 AST 31 ALT 33 Alkaline Phosphatase 77 Total Protein 5.4 L Albumin 3.0 Globulin 2.4 Albumin/Globulin Ratio 1.3 Phenytoin Blood Type Antibody Screen Crossmatch BBK History Checked 07/31/18 07:00 WBC RBC Hgb Hct MCV MCH MCHC RDW Plt Count MPV Gran % Lymph % (Auto) [place] % (Auto) Eos % (Auto) Baso % (Auto) Gran # Lymph # (Auto) [place] # (Auto) Eos # (Auto) Baso # (Auto) Sodium Potassium Chloride Carbon Dioxide Anion Gap BUN Creatinine Est GFR ( Amer) Est GFR (Non-Af Amer) Random Glucose Calcium Total Bilirubin AST ALT Alkaline Phosphatase Total Protein Albumin Globulin Albumin/Globulin Ratio Phenytoin 3 L Blood Type Antibody Screen Crossmatch BBK History Checked Assessment & Plan - Assessment and Plan (Free Text) Assessment: Pleasant 82 year old male who came in to [facility] for elective right hemicolectomy yesterday. consult was called to follow up with history of chronic Atrial fibrillation (was on Eliquis). 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 Du. 12 lead EKG today, atrial fibrillation at 100/min. Will hold Eliquis, immediate post op. Review of previous cardiac work up: 02/26/18- Normal stress test Echo done- LVEF 65% Proximal septal thickening with IHSS physiology but resting gradient 4-6mmHg (insignificant) Trace AR, Moderate MR Mild to moderate pulmonic valve regurgitation No pericardial effusion Plan: Status post right hemicolectomy POD#1 Blood pressure controlled Heart rate atrial fibrillation controlled at 100/min Immediate post op, will hold Eliquis for now for possible bleeding from surgical site, Will restart Eliquis tomorrow if Okay with Dr. Dean (surgery) Will resume Cardizem and Toprol Continue current treatment Continue current treatment Will follow up Chart reviewed Further recommendations during hospital course Will follow up Plan and treatment discussed with Dr. Faye Thank you Dr. Du for the opportunity of taking care of Mr. Roshan Randdestinymarnie - Date & Time Date: 07/31/18 Time: 06:30
[2018-07-31] MEDS ORDERED: Metoprolol Succinate 25 mg XL Tab PO ONE (09:47)
[2018-07-31] MEDS ORDERED: Phenytoin 100 mg/2 ml Inj ONE (10:02)
[2018-07-31] MEDS: diltiaZEM 180 mg/24 Hours CD Cap PO SCH (10:42)
[2018-07-31] MEDS: Metoprolol Succinate 25 mg XL Tab PO SCH ×2 (10:43→17:19)
--- NOTE | 2018-07-31 11:42 | CARD ---
APPROVED REPORT Date of service: 07/31/2018 EKG Measurement Heart [id number] <Conclusion> Atrial fibrillation with rapid ventricular response Left posterior fascicular block Nonspecific T wave abnormality, probably digitalis effect Abnormal ECG
[2018-07-31] MEDS: Oxycodone/Acetaminophen 5/325 mg Tab PO PRN (11:57)
[2018-07-31 13:13] LABS: BASO # 0.06 K/mm3 (0.0-2.0); BASO % 0.4 % (0.0-3.0); EOS % 0.2 % (1.5-5.0); GRAN # 15.91 (1.4-6.5); GRAN % 94.9 % (50.0-68.0); LYMPH # 0.2 (1.2-3.4); LYMPH % 1.1 % (22.0-35.0); MEAN CELL VOLUME 103.4 fl (80.0-105.0); MEAN PLATELET VOLUME 11.7 fl (7.0-11.0); MONO # 0.6 (0.1-0.6); MONO % 3.4 % (1.0-6.0); RBC 0.58 10^6/uL (3.5-6.1); RED CELL DISTRIBUTION WIDTH 16.1 % (11.5-14.5)
[2018-07-31 13:17] LABS: WHITE BLOOD COUNT 16.8 10^3/ul (4.5-11.0)
[2018-07-31 13:18] LABS: HEMOGLOBIN 1.8 g/dL (14.0-18.0); PLATELET COUNT 8 10^3/uL (120.0-450.0)
--- NOTE | 2018-07-31 15:23 | PN ---
DATE: 07/31/2018 SUBJECTIVE: The patient is 82 years old, seen and examined. Awake, alert, oriented, answer appropriately, not confused, want to get out of bed. No fever. No chills. No nausea or vomiting. PHYSICAL EXAMINATION: VITAL SIGNS: The patient is afebrile, pulse 100, respirations 18, blood pressure 124/63. LUNGS: Bilateral fair airflow. No rhonchi or crackle. HEART: S1 and S2 audible. ABDOMEN: Soft. Nontender. No rebound. Colostomy is in place. RUSSELL drain has 10 mL hemorrhagic fluid. LABORATORY EXAM: WBC 7.8, hemoglobin 9.6, hematocrit 30.8, platelet 94. Chemistry: Sodium 139, potassium 4.9, chloride 100, CO2 of 31, BUN 25, creatinine 1.2, blood sugar of 99. Dilantin level is 3. ASSESSMENT: 1. Status post right hemicolectomy secondary to villous adenoma. 2. History of hypertension. 3. Chronic atrial fibrillation. 4. Seizure disorder. PLAN: Currently, the patient is in Dilantin. He is on diltiazem. The patient is on IV Flagyl and he is on IV fluid. Encourage incentive spirometry. He is on Rocephin and Flagyl and he is on beta tammy. We will follow up his electrolytes, CBC and CMP in the a.m. Tri Fleming MD
--- NOTE | 2018-07-31 17:44 | CP.PCM.PCO ---
Physician Communication Note - Physician Communication Note Physician Communication Note: Transfuse 1 u prbc/Holding anticoagulation
[2018-08-01] MEDS: Oxycodone/Acetaminophen 5/325 mg Tab PO PRN ×2 (01:39→08:38)
--- NOTE | 2018-08-01 02:54 | CON ---
DATE: 07/31/2018 REQUESTING PHYSICIAN: Dr. Du. REASON FOR CONSULTATION: Pancytopenia, history of colon cancer. HISTORY OF PRESENT ILLNESS: Mr. Hale is an 82-year-old male admitted to the hospital for hemicolectomy. He has history of colon cancer prior, currently in remission. No evidence of recurrence, developed tubulovillous adenoma, underwent right hemicolectomy yesterday by Dr. Du for tubulovillous adenoma. He received 1 unit of platelet transfusion intraoperatively, which platelet count has been in the range of 90,000 to 100,000. He has history of chronic ITP. Recently, the blood count has been low also, as low as 2.5 total white count, but ANC has been more than 1000, around 1800. He also has received several units of blood transfusion in the recent past. Also has abnormal weight loss for past few months. PAST MEDICAL HISTORY: Aortic aneurysm, seizure disorder, hypertension, hyperlipidemia, thrombocytopenia, new onset atrial fibrillation, history of colon cancer. ALLERGIES: NO KNOWN DRUG ALLERGIES. HOME MEDICATIONS: Diltiazem, Dilantin, metoprolol, Lipitor, aspirin, Eliquis, was on Lovenox during recent hospitalization. SOCIAL HISTORY: Lives alone, has daughter living nearby. REVIEW OF SYSTEMS: As per HPI. Rest of 12-point review of systems reviewed negative. He is still n.p.o. No abdominal pain. PHYSICAL EXAMINATION: GENERAL: Comfortable in bed, in no acute distress. VITAL SIGNS: Temperature 98.7, heart rate 80 per minute, blood pressure 110/70. HEENT: Pallor positive. NECK: No lymphadenopathy. Oral mucosa dry. CHEST: Air entry present and equal, bilateral. No added sounds. CARDIOVASCULAR: S1, S2 normal. No murmur. No gallop. ABDOMEN: Soft, nontender. No hepatosplenomegaly. EXTREMITY: No edema. LABORATORY DATA: White count 7.8, hemoglobin 9.6, hematocrit 30.8, platelet count 94,000. Sodium 139, potassium 4.9, creatinine 1.2. Total protein 5.4. CURRENT MEDICATIONS: Reviewed. ASSESSMENT AND PLAN: 1. History of colon cancer, in remission. 2. Tubulovillous adenoma, status post hemicolectomy. 3. Seizure disorder. 4. Pancytopenia. 5. Iron-deficiency anemia. 6. New onset atrial fibrillation. PLAN: He is currently off anticoagulation. I would recommend starting prophylactic Lovenox 40 mg subcutaneous daily from tomorrow, full dose anticoagulation once cleared from Surgery. Pancytopenia, stable blood count, hemoglobin 9.6, platelet count 94,000. No need for any blood products. Continue to monitor blood count closely. White count has been 7.8. Leukopenia likely multifactorial. He is on Dilantin also which can cause low blood count. He might have underlying myelodysplasia. Workup can be done at a later date once he has recovered from surgery. He will also need CT, PET scan for evaluation of colon cancer, currently, in remission. No evidence of recurrence. Thank you, Dr. Du for allowing us to participate in Mr. Hale's care. Lesia Ledezma MD
[2018-08-01] MEDS: metroNIDAZOLE IV 500 mg/100 ml 500 MG/100 ML BAG IV SCH ×2 (06:32→15:09)
[2018-08-01 07:12] LABS: GRAN # 8.52 (1.4-6.5); GRAN % 86.3 % (50.0-68.0); HEMOGLOBIN 11.3 g/dL (14.0-18.0); LYMPH # 0.7 (1.2-3.4); LYMPH % 6.8 % (22.0-35.0); MEAN CELL VOLUME 94.6 fl (80.0-105.0); MEAN CORPUSCULAR HGB CONC 30.6 g/dl (31.0-37.0); MEAN PLATELET VOLUME 9.7 fl (7.0-11.0); MONO # 0.7 (0.1-0.6); MONO % 6.9 % (1.0-6.0); RBC 3.9 10^6/uL (3.5-6.1); RED CELL DISTRIBUTION WIDTH 15.6 % (11.5-14.5); WHITE BLOOD COUNT 9.9 10^3/ul (4.5-11.0)
[2018-08-01 07:32] LABS: ALB/GLOB RATIO 1.3 (1.1-1.8); ALBUMIN 3.4 g/dL (3.0-4.8)
--- NOTE | 2018-08-01 07:48 | CP.PCM.PN ---
Subjective - Date & Time of Evaluation Date of Evaluation: 08/01/18 Time of Evaluation: 06:35 - Subjective Subjective: Awake, alert, oriented, no distress,lying in bed Reason for consultation and follow up; Cardiac evaluation of chronic atrial fibrillation, status post right hemicolectomy ,History of hypertension, TIA, former smoker,anxiety, hyperlipidemia, history of falls, urinary frequency and retention,rectal cancer with resection in 2001, colostomy Seen and examined by me and Dr. Faye Objective - Vital Signs/Intake and Output Vital Signs (last 24 hours): Temp Pulse Resp BP Pulse Ox 98.4 F 108 H 19 138/81 96 08/01/18 06:00 08/01/18 06:00 08/01/18 06:00 08/01/18 06:00 08/01/18 06:00 Intake and Output: 08/01/18 08/01/18 06:59 18:59 Intake Total 2500 Output Total 1310 Balance 1190 - Medications Medications: Current Medications Diltiazem HCl (Cardizem Cd) 360 mg PO DAILY [facility] Last Admin: 07/31/18 10:42 Dose: 360 mg Hydromorphone HCl (Dilaudid) 0.5 mg IVP Q4H PRN PRN Reason: Pain, moderate (4-7) Last Admin: 07/31/18 17:12 Dose: 0.5 mg Lactated Ringer's (Lactated Ringer's) 1,000 mls @ 100 mls/hr IV .Q10H [facility] Last Admin: 07/31/18 03:21 Dose: 100 mls/hr Metronidazole (Flagyl) 500 mg in 100 mls @ 100 mls/hr IV Q8 [facility]; Protocol Last Admin: 08/01/18 06:32 Dose: 100 mls/hr Ceftriaxone Sodium (Rocephin 1 Gram Ivpb) 1 gm in 100 mls @ 100 mls/hr IVPB DAILY [facility]; Protocol Last Admin: 07/31/18 11:32 Dose: Not Given Phenytoin 100 mg/ Sodium (Chloride) 52 mls @ 104 mls/hr IVPB Q8 [facility] Last Admin: 08/01/18 06:32 Dose: 104 mls/hr Metoprolol Succinate (Toprol Xl) 25 mg PO BID [facility] Last Admin: 07/31/18 17:19 Dose: 25 mg Oxycodone/Acetaminophen (Percocet 5/325 Mg Tab) 1 tab PO Q4H PRN PRN Reason: Pain, moderate (4-7) Stop: 08/02/18 13:44 Last Admin: 08/01/18 01:39 Dose: 1 tab Pantoprazole Sodium (Protonix Inj) 40 mg IVP Q12 [facility] Last Admin: 07/31/18 21:36 Dose: 40 mg - Labs Labs: 08/01/18 07:00 08/01/18 07:00 - Constitutional Appears: Non-toxic, No Acute Distress - Head Exam Head Exam: NORMAL INSPECTION, NORMOCEPHALIC - Eye Exam Eye Exam: Normal appearance Pupil Exam: NORMAL ACCOMODATION - ENT Exam ENT Exam: Mucous Membranes Dry, Normal Exam - Respiratory Exam Respiratory Exam: Clear to Ausculation Bilateral, NORMAL BREATHING PATTERN - Cardiovascular Exam Cardiovascular Exam: Irregular Rhythm, +S1, +S2 Additional comments: telemetry Atrial fibrillation 100's - GI/Abdominal Exam GI & Abdominal Exam: Soft, Hypoactive Bowel Sounds Additional comments: colostomy, abdominal right dressing intact - Extremities Exam Extremities Exam: Full ROM, Normal Capillary Refill - Neurological Exam Neurological Exam: Alert, Awake, Oriented x3 - Psychiatric Exam Psychiatric exam: Normal Affect, Normal Mood - Skin Skin Exam: Dry, Normal Color, Warm Assessment and Plan - Assessment and Plan (Free Text) Assessment: Pleasant 82 year old male who came in to [facility] [place] for elective right hemicolectomy yesterday. consult was called to follow up with history of chronic Atrial fibrillation (was on Eliquis). 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 Du. 12 lead EKG today, atrial fibrillation at 100/min. Will hold Eliquis. Review of previous cardiac work up: 02/26/18- Normal stress test Echo done- LVEF 65% Proximal septal thickening with IHSS physiology but resting gradient 4-6mmHg (insignificant) Trace AR, Moderate MR Mild to moderate pulmonic valve regurgitation Plan: Status post right hemicolectomy POD#2 Transfused 1 unit of PRBC Repeat H/H 11.3/36.9 Cardiac status stable Blood pressure controlled Heart rate atrial fibrillation controlled at 100/min Will hold Eliquis for now as per with Dr. Dean (surgery) Started on Lovenox per hematology Will resume Cardizem and Toprol Continue current treatment Continue current treatment Chart reviewed OOB to chair Will follow up Plan and treatment discussed with Dr. Faye
--- NOTE | 2018-08-01 08:10 | CP.PCM.PN ---
Subjective - Date & Time of Evaluation Date of Evaluation: 08/01/18 Time of Evaluation: 07:45 - Subjective Subjective: general Surgery Progress note for Dr. Du Patient is resting comfortably in bed and complains only of mild rhinorrhea. he otherwise denies abdominal pain, f/c, n/v. He is unsure of flatus and has no output in his stoma bag. Objective - Vital Signs/Intake and Output Vital Signs (last 24 hours): Temp Pulse Resp BP Pulse Ox 98.4 F 108 H 19 138/81 96 08/01/18 06:00 08/01/18 06:00 08/01/18 06:00 08/01/18 06:00 08/01/18 06:00 Intake and Output: 08/01/18 08/01/18 06:59 18:59 Intake Total 2500 Output Total 1310 Balance 1190 - Medications Medications: Current Medications Diltiazem HCl (Cardizem Cd) 360 mg PO DAILY [facility] Last Admin: 07/31/18 10:42 Dose: 360 mg Hydromorphone HCl (Dilaudid) 0.5 mg IVP Q4H PRN PRN Reason: Pain, moderate (4-7) Last Admin: 07/31/18 17:12 Dose: 0.5 mg Lactated Ringer's (Lactated Ringer's) 1,000 mls @ 100 mls/hr IV .Q10H [facility] Last Admin: 07/31/18 03:21 Dose: 100 mls/hr Metronidazole (Flagyl) 500 mg in 100 mls @ 100 mls/hr IV Q8 [facility]; Protocol Last Admin: 08/01/18 06:32 Dose: 100 mls/hr Ceftriaxone Sodium (Rocephin 1 Gram Ivpb) 1 gm in 100 mls @ 100 mls/hr IVPB DAILY [facility]; Protocol Last Admin: 07/31/18 11:32 Dose: Not Given Phenytoin 100 mg/ Sodium (Chloride) 52 mls @ 104 mls/hr IVPB Q8 [facility] Last Admin: 08/01/18 06:32 Dose: 104 mls/hr Metoprolol Succinate (Toprol Xl) 25 mg PO BID [facility] Last Admin: 07/31/18 17:19 Dose: 25 mg Oxycodone/Acetaminophen (Percocet 5/325 Mg Tab) 1 tab PO Q4H PRN PRN Reason: Pain, moderate (4-7) Stop: 08/02/18 13:44 Last Admin: 08/01/18 01:39 Dose: 1 tab Pantoprazole Sodium (Protonix Inj) 40 mg IVP Q12 [facility] Last Admin: 07/31/18 21:36 Dose: 40 mg - Labs Labs: 08/01/18 07:00 08/01/18 07:00 - Constitutional Appears: Well, Non-toxic, No Acute Distress, Cachectic - Head Exam Head Exam: ATRAUMATIC, NORMOCEPHALIC - ENT Exam ENT Exam: Mucous Membranes Moist - Respiratory Exam Respiratory Exam: NORMAL BREATHING PATTERN - Cardiovascular Exam Cardiovascular Exam: REGULAR RHYTHM - GI/Abdominal Exam GI & Abdominal Exam: Soft, Tenderness (appropriate postoperative tenderness hear incision/drain site). absent: Distended, Guarding Additional comments: stoma is pink and patent but not yet productive; mayra drain in place in the RLQ with serosanguinous output, more serous than sanguinous - Extremities Exam Extremities Exam: absent: Calf Tenderness, Pedal Edema - Neurological Exam Neurological Exam: Alert, Awake, Oriented x3 - Psychiatric Exam Psychiatric exam: Normal Affect, Normal Mood - Skin Skin Exam: Dry, Intact, Normal Color, Warm Assessment and Plan - Assessment and Plan (Free Text) Assessment: 82 yr old male POD 2 s/p right hemicolectomy and parastomal hernia repair Plan: IVF:1/2 NS @60 d/t elevated potassium recieved 10 mg IV Lasix overnight, 20mg lasix this am pain control with oxycodone and dilaudid (not percocet) due to elevated LFTs dilantin d/c, dilantin level ordered repeat cbc,cmp in PM BNP ordered continue abx continue protonix d/w Dr. Florian Erickson, PGY
[2018-08-01] MEDS ORDERED: Sodium Chloride 0.45% 1,000 ML IV SCH (08:30)
[2018-08-01] MEDS: Metoprolol Succinate 25 mg XL Tab PO SCH ×2 (09:24→18:35)
[2018-08-01] MEDS: cefTRIAXone 1 gm 1 GM/100 ML BAG IVPB SCH (09:24)
[2018-08-01] MEDS: diltiaZEM 180 mg/24 Hours CD Cap PO SCH (09:25)
[2018-08-01] MEDS: Enoxaparin 30 mg Syringe SC SCH (12:28)
--- NOTE | 2018-08-01 13:23 | PN ---
DATE: 08/01/2018 FOLLOWUP NOTE SUBJECTIVE: He is comfortable in bed, in no acute distress. He had bleeding around the drain site yesterday. Receiving 1 unit of PRBC in the night. Denies any pain. No shortness of breath. No bleeding currently. No chest pain. REVIEW OF SYSTEMS: As per HPI. Rest of 12-point review of systems reviewed negative. PHYSICAL EXAMINATION: GENERAL: Comfortable in bed, in no acute distress. Oral mucosa dry. VITAL SIGNS: Temperature 98.6, heart rate is 76 per minute, blood pressure 120/80. HEENT: Pallor positive. NECK: No lymphadenopathy. CHEST: Air entry present and equal, bilateral. No added sounds. CARDIOVASCULAR: S1, S2 normal. No murmur. No gallop. ABDOMEN: Soft, nontender. No hepatosplenomegaly. EXTREMITIES: No edema. LINE ANALYST: Alert and oriented x3. No focal sensorimotor deficits. LABORATORY DATA: White count 9.9, hemoglobin 11.3, hematocrit 36.9, platelet 93. Sodium 137, potassium 5.4, creatinine 1.7, AST 395, ALT 262. ASSESSMENT: 1. History of colon cancer. 2. Tubulovillous adenoma, status post hemicolectomy. 3. Seizure disorder. 4. Pancytopenia. 5. New-onset atrial fibrillation. PLAN: He received 1 unit of blood transfusion in the night. Hemoglobin is stable now at 11.3, platelet count of 93,000. He was previously on Lovenox therapeutic doses. I will start him on prophylactic doses of Lovenox 30 mg subcutaneous daily for DVT prevention. We can resume full doses once he is stable and cleared from surgery. Discussed with Dr. Du at length. He is okay with prophylactic doses of Lovenox only. No therapeutic doses at present. We will watch him for any bleeding. He had bleeding yesterday from the drain site. No active bleeding right now. Diet will be advanced as per surgical team. Platelet count stable. Pathology from surgical specimen still pending. Might have recurrence of colon cancer. He also has history of abnormal weight loss, but he has been noncompliant with the followups. Currently, on Dilantin. Dilantin levels will be drawn. Lesia Darien, MD
[2018-08-01 14:31] LABS: BASO # 0.01 K/mm3 (0.0-2.0); BASO % 0.1 % (0.0-3.0); GRAN # 10.82 (1.4-6.5); GRAN % 84.9 % (50.0-68.0); HEMOGLOBIN 11.9 g/dL (14.0-18.0); LYMPH # 0.8 (1.2-3.4); LYMPH % 6.4 % (22.0-35.0); MEAN CELL VOLUME 95.7 fl (80.0-105.0); MEAN CORPUSCULAR HEMOGLOBIN 30.1 pg (25.0-35.0); MEAN CORPUSCULAR HGB CONC 31.4 g/dl (31.0-37.0); MEAN PLATELET VOLUME 9.8 fl (7.0-11.0); MONO # 1.1 (0.1-0.6); MONO % 8.6 % (1.0-6.0); RBC 3.96 10^6/uL (3.5-6.1); RED CELL DISTRIBUTION WIDTH 15.7 % (11.5-14.5); WHITE BLOOD COUNT 12.8 10^3/ul (4.5-11.0)
[2018-08-01 14:37] LABS: ALB/GLOB RATIO 1.4 (1.1-1.8); ALBUMIN 3.6 g/dL (3.0-4.8)
--- NOTE | 2018-08-01 16:57 | CP.PCM.CON ---
<Estela Mehta - Last Filed: 08/01/18 17:42> History of Present Illness - History of Present Illness History of Present Illness: Estela Mehta, PGY-1, CCU Consult Note for Dr. Andujar 82 year old male with past medical history of rectal cancer s/p total colectomy, zenker's diverticulum, thrombocytopenia, aortic stent placement for AAA, seizure disorder, hypertension, hyperlipidemia, thrombocytopenia, atrial fibrillation on eliquis present 3 weeks ago with blood clot in colostomy bag, which was placed due to colectomy multiple years ago. Patient at that time denied any symptoms, including abdominal pain, nausea, vomiting, shortness of breath. Endoscopy was done on 07/16 showing a 35 mm sessile polyp in the ileocecal valve which was not able to be removed with endoscopy. Patient subsequently had surgery on 07/30 for polyp removal with parastomal hernia repair and tolerated the surgery well. Patient subsequently had worsening labs including elevated LFTs and increasing BUN/Cr and ICU was consulted for suspicion of multiorgan failure. Patient reported occassional cough with bloody sputum. Patient denies fever, headache, dizziness, chest pain, heart palpitations, shortness of breath, nausea, vomiting, dysuria, hematuria, abdominal pain. 12-point ROS was negative except for what was mentioned above. Review of Systems - Constitutional Constitutional: absent: Anorexia, Chills, Fever - EENT Eyes: absent: Blurred Vision Ears: absent: Decreased Hearing Nose/Mouth/Throat: absent: Epistaxis - Cardiovascular Cardiovascular: absent: Chest Pain - Respiratory Respiratory: absent: Dyspnea - Gastrointestinal Gastrointestinal: absent: Abdominal Pain, Nausea, Vomiting - Genitourinary Genitourinary: absent: Dysuria, Hematuria - Musculoskeletal Musculoskeletal: absent: Arthralgias - Neurological Neurological: absent: Numbness, Tingling Past Patient History - Infectious Disease Hx of Infectious Diseases: None - Tetanus Immunizations Tetanus Immunization: Up to Date - Past Social History Smoking Status: Former Smoker - CARDIAC Hx Pacemaker: No - PULMONARY Hx Respiratory Disorders: Yes (USED TO SMOKE CIGARETTES.QUIT 1990) - NEUROLOGICAL Hx Paralysis: No - HEENT Hx HEENT Problems: Yes ([place] R ear, does not use hearing aid) Other/Comment: uses eyeglasses,uses dentures - RENAL Hx Chronic Kidney Disease: No - ENDOCRINE/METABOLIC Hx Endocrine Disorders: No - HEMATOLOGICAL/ONCOLOGICAL Hx Blood Transfusions: Yes (PLATELETS 07/2018) Hx Blood Transfusion Reaction: No - INTEGUMENTARY Hx Dermatological Problems: Yes Hx Melanoma: Yes (RIGHT PINNA,HEAD) - MUSCULOSKELETAL/RHEUMATOLOGICAL Hx Musculoskeletal Disorders: Yes - GASTROINTESTINAL Hx Gastrointestinal Disorders: Yes Hx Colostomy: Yes (2001/empties 2x's a day brown stool) Hx Gastroesophageal Reflux: Yes HX Swallowing Problems: Yes Other/Comment: rectal cancer, dysphagia due to foreign body chicken bone removed by dr boo and dr wilson as per pt - GENITOURINARY/GYNECOLOGICAL Hx Reproductive Disorders: No - PSYCHIATRIC Hx Emotional Abuse: No Hx Physical Abuse: No Hx Substance Use: No - SURGICAL HISTORY Hx Appendectomy: Yes Other/Comment: colostomy due to rectal ca, angioplasty - ANESTHESIA Hx Anesthesia Reactions: No Hx Malignant Hyperthermia: No Meds Allergies/Adverse Reactions: Allergies Allergy/AdvReac Type Severity Reaction Status Date / Time No Known Allergies Allergy Verified 07/12/18 16:57 - Medications Medications: Current Medications Diltiazem HCl (Cardizem Cd) 360 mg PO DAILY [facility] Last Admin: 08/01/18 09:25 Dose: 360 mg Enoxaparin Sodium (Lovenox) 30 mg SC DAILY [facility]; Protocol Last Admin: 08/01/18 12:28 Dose: 30 mg Furosemide (Lasix) 10 mg IVP ONCE ONE Stop: 08/01/18 16:19 Metoprolol Succinate (Toprol Xl) 25 mg PO BID [facility] Last Admin: 08/01/18 09:24 Dose: 25 mg Oxycodone HCl (Oxycodone Immediate Release Tab) 5 mg PO Q4H PRN PRN Reason: Pain, moderate (4-7) Pantoprazole Sodium (Protonix Inj) 40 mg IVP Q12 [facility] Last Admin: 08/01/18 09:24 Dose: 40 mg Physical Exam - Head Exam Head Exam: ATRAUMATIC, NORMAL INSPECTION, NORMOCEPHALIC - Eye Exam Eye Exam: EOMI - ENT Exam ENT Exam: Mucous Membranes Moist - Respiratory Exam Respiratory Exam: Clear to Auscultation Bilateral - Cardiovascular Exam Cardiovascular Exam: Irregular Rhythm - GI/Abdominal Exam GI & Abdominal Exam: Soft. absent: Distended - Extremities Exam Extremities exam: Positive for: full ROM - Neurological Exam Neurological exam: Alert, CN II-XII Intact, Oriented x3 - Skin Skin Exam: Dry, Intact Additional comments: mild jaundice Results - Vital Signs Recent Vital Signs: Last Vital Signs Temp 98.6 F 08/01/18 12:00 Pulse 95 H 08/01/18 14:00 Resp 19 08/01/18 12:00 BP 121/76 08/01/18 12:00 Pulse Ox 96 08/01/18 06:00 - Labs Result Diagrams: 08/01/18 14:05 08/01/18 14:05 Labs: Laboratory Results - last 24 hr 07/30/18 08/01/18 08/01/18 05:15 07:00 07:00 WBC 9.9 D RBC 3.90 Hgb 11.3 L D Hct 36.9 L MCV 94.6 D MCH 29.0 MCHC 30.6 L RDW 15.6 H Plt Count 93 L MPV 9.7 Gran % 86.3 H Lymph % (Auto) 6.8 L [place] % (Auto) 6.9 H Eos % (Auto) 0.0 L Baso % (Auto) 0.0 Gran # 8.52 H Lymph # (Auto) 0.7 L [place] # (Auto) 0.7 H Eos # (Auto) 0.0 Baso # (Auto) 0.00 Sodium 137 Potassium 5.4 H Chloride 100 Carbon Dioxide 26 Anion Gap 16 BUN 42 H Creatinine 1.7 H Est GFR ( Amer) 47 Est GFR (Non-Af Amer) 39 Random Glucose 135 H Calcium 9.0 Phosphorus Magnesium Total Bilirubin 0.8 AST 395 H D ALT 262 H Alkaline Phosphatase 75 NT-Pro-B Natriuret Pep Total Protein 5.9 Albumin 3.4 Globulin 2.5 Albumin/Globulin Ratio 1.3 Phenytoin Blood Type O POSITIVE Antibody Screen Negative Crossmatch See Detail BBK History Checked Patient has bt 08/01/18 08/01/18 08/01/18 14:05 14:05 14:05 WBC 12.8 H D RBC 3.96 Hgb 11.9 L Hct 37.9 L MCV 95.7 MCH 30.1 MCHC 31.4 RDW 15.7 H Plt Count 108 L MPV 9.8 Gran % 84.9 H Lymph % (Auto) 6.4 L [place] % (Auto) 8.6 H Eos % (Auto) 0.0 L Baso % (Auto) 0.1 Gran # 10.82 H Lymph # (Auto) 0.8 L [place] # (Auto) 1.1 H Eos # (Auto) 0.0 Baso # (Auto) 0.01 Sodium 138 Potassium 5.1 H Chloride 100 Carbon Dioxide 23 Anion Gap 20 BUN 46 H Creatinine 2.1 H Est GFR ( Amer) 37 Est GFR (Non-Af Amer) 30 Random Glucose 160 H Calcium 9.0 Phosphorus 7.4 H Magnesium 2.5 H Total Bilirubin 1.0 AST 497 H D ALT 407 H Alkaline Phosphatase 76 NT-Pro-B Natriuret Pep 86185 H Total Protein 6.2 Albumin 3.6 Globulin 2.6 Albumin/Globulin Ratio 1.4 Phenytoin 9 L Blood Type Antibody Screen Crossmatch BBK History Checked Assessment & Plan - Assessment and Plan (Free Text) Assessment: 82 year old male with past medical history of rectal cancer s/p total colectomy, zenker's diverticulum, thrombocytopenia, aortic stent placement for AAA, seizure disorder, hypertension, hyperlipidemia, thrombocytopenia, atrial fibrillation on eliquis present 3 weeks ago with blood clot in colostomy bag, which was placed due to colectomy multiple years ago. Patient subsequently had surgery for large ileocecal polyp and has had worsening laboratory findings worrying for end organ damage. Plan: Neuro: -AAOx3, no FND, moving extremities past midline. -Monitor neuro status. -Reorient patient as necessary. Cardio: -IR IR, normotensive, no signs of HD compromise -EKG: atrial fibrillation with RVR, with HR: 105 -BNP: 33,700. -Patient likely has elevated BNP 2/2 to pulmonary hypertension found on prior echocardiogram on 02/2018. Patient likely has right sided heart failure from this process leading to elevated BNP. Follow up echocardiogram should be performed to evaluate for cause of increased BNP. -Patient's blood pressure is stable and at this time does not look like he will need pressors. -Maintain MAP>65. -Monitor for S/S, HD compromise. Pulm: -No signs of respiratory distress. CTA B/L -Patient is currently protecting airway and has no signs of impending respiratory failure at this time. -Patient is stating well on room air. -Maintain O2 saturation>95%. -Elevate bed to 30 degrees GI: -Tolerating diet well. -Increased LFTs at AST/ALT at 497/407 increased from 31/33 two days ago. Likely increase in LFTs due to side effects from rocephin and flagyl patient vs. hepatomegaly from right sided heart failure. -Protonix 40 mg Q12 /Nephro: -BUN/Cr increased to 46/2.1 from 24/ two days ago -UA: positive for leukocyte esterase and nitrates and many bacteria with 5-10 RBCs and many RBCs. -Increase in BUN/Cr possibly due to UTI vs. side effect of flagyl. -Good urine output -Continue monitoring. -Replete electrolytes as needed. -Maintain euvolemia. Endocrinology: -Random glucose: 160 -Maintain euglycemia. Heme/Onc: -H/H stable at 11.9/37.9 -No signs of HD compromise. -Continue monitoring H/H ID: -Afebrile, leukocytosis at 12.8. -Patient likely has UTI based off of positive leukocyte esterase and nitrates from UA. -Patient should be started on levofloaxicin and urine culture should be obtained. Patient has no signs of sepsis or septic shock at this time. -Monitor for signs and symptoms of infection. DVT prophylaxis: SCD GI prophylaxis: protonix 40 mg Q12 Disposition: Patient has adequate respiratory status and is able to protect his airway. At this time, he does not seem to be in impending respiratory failure or need for vasopressors. If patient's symptoms or status change or worsen, please contact ICU again. Patient seen and examined with Dr. Andujar - Date & Time Date: 08/01/18 Time: 18:21 <Ari Andujar - Last Filed: 08/10/18 07:11> Meds - Medications Medications: Current Medications Acetylcysteine (Acetylcysteine 20%) 4 ml IH [id number] [facility] Last Admin: 08/10/18 01:16 Dose: 4 ml Apixaban (Eliquis) 2.5 mg PO BID [facility] Last Admin: 08/09/18 10:14 Dose: Not Given Dextrose (Dextrose 50% Inj) 0 ml IV STAT PRN; Protocol PRN Reason: Hypoglycemia Protocol Diltiazem HCl (Cardizem Cd) 360 mg PO DAILY [facility] Last Admin: 08/09/18 10:10 Dose: 360 mg Enoxaparin Sodium (Lovenox) 60 mg SC Q12H [facility]; Protocol Last Admin: 08/10/18 02:27 Dose: 60 mg Famotidine (Pepcid) 20 mg PO HS [facility] Last Admin: 08/09/18 21:42 Dose: 20 mg Dextrose (Dextrose 5% In Water 1000 Ml) 1,000 mls @ 0 mls/hr IV .Q0M PRN; Protocol PRN Reason: Hypoglycemia Protocol Insulin Human Lispro (Humalog Low) 0 units SC ACHS KD; Protocol Last Admin: 08/10/18 00:25 Dose: Not Given Levalbuterol HCl (Xopenex) 1.25 mg IH [id number] [facility] Last Admin: 08/10/18 01:16 Dose: 1.25 mg Lidocaine (Lidoderm) 1 ea TD DAILY [facility] Methylprednisolone (Solu-Medrol) 20 mg IVP Q12 [facility] Last Admin: 08/09/18 21:41 Dose: 20 mg Metoprolol Succinate (Toprol Xl) 25 mg PO BID [facility] Last Admin: 08/09/18 18:12 Dose: 25 mg Oxycodone/Acetaminophen (Percocet 5/325 Mg Tab) 1 tab PO Q4H PRN PRN Reason: Pain, moderate (4-7) Stop: 08/13/18 02:22 Last Admin: 08/10/18 02:29 Dose: 1 tab Phenytoin Sodium (Dilantin) 100 mg PO TID [facility] Last Admin: 08/09/18 18:12 Dose: 100 mg Results - Vital Signs Recent Vital Signs: Last Vital Signs Temp 97.2 F L 08/09/18 18:42 Pulse 128 H 08/09/18 18:12 Resp 22 08/10/18 01:00 BP 163/79 H 08/09/18 18:12 Pulse Ox 98 08/09/18 15:07 - Labs Result Diagrams: 08/10/18 05:40 08/10/18 05:40 Labs: Laboratory Results - last 24 hr 08/06/18 08/07/18 08/07/18 21:46 07:21 11:22 WBC RBC Hgb Hct MCV MCH MCHC RDW Plt Count MPV Gran % Lymph % (Auto) [place] % (Auto) Eos % (Auto) Baso % (Auto) Gran # Lymph # (Auto) [place] # (Auto) Eos # (Auto) Baso # (Auto) Sodium Potassium Chloride Carbon Dioxide Anion Gap BUN Creatinine Est GFR ( Amer) Est GFR (Non-Af Amer) POC Glucose (mg/dL) 159 H 184 H 154 H Random Glucose Calcium Phosphorus Magnesium Total Bilirubin AST ALT Alkaline Phosphatase NT-Pro-B Natriuret Pep Total Protein Albumin Globulin Albumin/Globulin Ratio Procalcitonin 08/07/18 08/07/18 08/08/18 16:25 21:34 07:26 WBC RBC Hgb Hct MCV MCH MCHC RDW Plt Count MPV Gran % Lymph % (Auto) [place] % (Auto) Eos % (Auto) Baso % (Auto) Gran # Lymph # (Auto) [place] # (Auto) Eos # (Auto) Baso # (Auto) Sodium Potassium Chloride Carbon Dioxide Anion Gap BUN Creatinine Est GFR ( Amer) Est GFR (Non-Af Amer) POC Glucose (mg/dL) 173 H 148 H 151 H Random Glucose Calcium Phosphorus Magnesium Total Bilirubin AST ALT Alkaline Phosphatase NT-Pro-B Natriuret Pep Total Protein Albumin Globulin Albumin/Globulin Ratio Procalcitonin 08/08/18 08/08/18 08/08/18 10:26 15:46 22:17 WBC RBC Hgb Hct MCV MCH MCHC RDW Plt Count MPV Gran % Lymph % (Auto) [place] % (Auto) Eos % (Auto) Baso % (Auto) Gran # Lymph # (Auto) [place] # (Auto) Eos # (Auto) Baso # (Auto) Sodium Potassium Chloride Carbon Dioxide Anion Gap BUN Creatinine Est GFR ( Amer) Est GFR (Non-Af Amer) POC Glucose (mg/dL) 155 H 154 H 209 H Random Glucose Calcium Phosphorus Magnesium Total Bilirubin AST ALT Alkaline Phosphatase NT-Pro-B Natriuret Pep Total Protein Albumin Globulin Albumin/Globulin Ratio Procalcitonin 08/09/18 08/09/18 08/09/18 06:50 07:15 10:54 WBC RBC Hgb Hct MCV MCH MCHC RDW Plt Count MPV Gran % Lymph % (Auto) [place] % (Auto) Eos % (Auto) Baso % (Auto) Gran # Lymph # (Auto) [place] # (Auto) Eos # (Auto) Baso # (Auto) Sodium 137 Potassium 5.4 H Chloride 102 Carbon Dioxide 31 Anion Gap 9 L BUN 51 H Creatinine 0.8 Est GFR ( Amer) > 60 Est GFR (Non-Af Amer) > 60 POC Glucose (mg/dL) 143 H 176 H Random Glucose 140 H Calcium 8.4 Phosphorus Magnesium Total Bilirubin 0.7 AST 43 ALT 135 H Alkaline Phosphatase 78 NT-Pro-B Natriuret Pep Total Protein 4.8 L Albumin 2.6 L Globulin 2.2 Albumin/Globulin Ratio 1.2 Procalcitonin 08/09/18 08/09/18 08/09/18 11:10 11:10 14:26 WBC RBC Hgb Hct MCV MCH MCHC RDW Plt Count MPV Gran % Lymph % (Auto) [place] % (Auto) Eos % (Auto) Baso % (Auto) Gran # Lymph # (Auto) [place] # (Auto) Eos # (Auto) Baso # (Auto) Sodium Potassium Chloride Carbon Dioxide Anion Gap BUN 49 H Creatinine 0.9 Est GFR ( Amer) > 60 Est GFR (Non-Af Amer) > 60 POC Glucose (mg/dL) Random Glucose Calcium Phosphorus Magnesium Total Bilirubin AST ALT Alkaline Phosphatase NT-Pro-B Natriuret Pep 3880 H Total Protein Albumin Globulin Albumin/Globulin Ratio Procalcitonin < 0.05 L 08/09/18 08/09/18 08/10/18 16:10 21:41 05:40 WBC 15.4 H D RBC 4.97 Hgb 14.5 Hct 47.1 MCV 94.8 MCH 29.2 MCHC 30.8 L RDW 15.4 H Plt Count 103 L MPV 9.8 Gran % 93.7 H Lymph % (Auto) 3.9 L [place] % (Auto) 2.4 Eos % (Auto) 0.0 L Baso % (Auto) 0.0 Gran # 14.39 H Lymph # (Auto) 0.6 L [place] # (Auto) 0.4 Eos # (Auto) 0.0 Baso # (Auto) 0.00 Sodium Potassium Chloride Carbon Dioxide Anion Gap BUN Creatinine Est GFR ( Amer) Est GFR (Non-Af Amer) POC Glucose (mg/dL) 119 H 137 H Random Glucose Calcium Phosphorus Magnesium Total Bilirubin AST ALT Alkaline Phosphatase NT-Pro-B Natriuret Pep Total Protein Albumin Globulin Albumin/Globulin Ratio Procalcitonin 08/10/18 05:40 WBC RBC Hgb Hct MCV MCH MCHC RDW Plt Count MPV Gran % Lymph % (Auto) [place] % (Auto) Eos % (Auto) Baso % (Auto) Gran # Lymph # (Auto) [place] # (Auto) Eos # (Auto) Baso # (Auto) Sodium 138 Potassium 5.1 H Chloride 101 Carbon Dioxide 33 Anion Gap 10 BUN 52 H Creatinine 1.0 Est GFR ( Amer) > 60 Est GFR (Non-Af Amer) > 60 POC Glucose (mg/dL) Random Glucose 138 H Calcium 8.5 Phosphorus 4.3 Magnesium 2.1 Total Bilirubin 1.1 AST 35 ALT 116 H Alkaline Phosphatase 68 NT-Pro-B Natriuret Pep Total Protein 5.0 L Albumin 2.7 L Globulin 2.2 Albumin/Globulin Ratio 1.2 Procalcitonin Attending/Attestation - Attestation I have personally seen and examined this patient.: Yes I have fully participated in the care of the patient.: Yes I have reviewed all pertinent clinical information: Yes Notes (Text): 08/10/18 07:[address] Andujar note
[2018-08-01 17:53] LABS: URINE APPEARANCE CLOUDY (CLEAR); URINE BILIRUBIN NEGATIVE (NEGATIVE); URINE BLOOD LARGE (NEGATIVE); URINE COLOR LIGHT BROWN (YELLOW); URINE GLUCOSE (UA) NEGATIVE (NEGATIVE); URINE LEUKOCYTE ESTERASE SMALL Leu/uL (NEGATIVE); URINE PROTEIN 30 mg/dL (<30 mg/dL); URINE UROBILINOGEN 0.2 E.U./dL (<1 E.U./dL)
[2018-08-01 17:59] LABS: URINE AMORPHOUS SEDIMENT FEW; URINE BACTERIA MANY (NEG); URINE EPITHELIAL CELLS 0 - 2 /hpf (0-5); URINE RBC 25 - 30 /hpf (0-2)
[2018-08-01 18:00] LABS: URINE COARSE GRANULAR CAST TRACE /hpf (0-2); URINE FINE GRANULAR CAST 0 - 2 /hpf (0-2)
[2018-08-01] MEDS ORDERED: Vancomycin 1gm in NS 250ml 1 GM/250 ML BAG IVPB STA (18:57)
[2018-08-01] MEDS: Meropenem IV 1 gm in NS 1 GM/50 ML BAG IVPB SCH (22:13)
[2018-08-01 22:34] LABS: GRAN # 7.45 (1.4-6.5); GRAN % 86.9 % (50.0-68.0); LYMPH # 0.4 (1.2-3.4); MEAN CELL VOLUME 93.8 fl (80.0-105.0); MEAN CORPUSCULAR HEMOGLOBIN 29.6 pg (25.0-35.0); MEAN CORPUSCULAR HGB CONC 31.6 g/dl (31.0-37.0); MEAN PLATELET VOLUME 9.9 fl (7.0-11.0); MONO # 0.7 (0.1-0.6); MONO % 8.1 % (1.0-6.0); RBC 3.71 10^6/uL (3.5-6.1); RED CELL DISTRIBUTION WIDTH 15.4 % (11.5-14.5); WHITE BLOOD COUNT 8.6 10^3/ul (4.5-11.0)
[2018-08-01 22:54] LABS: CALCIUM 8.9 mg/dL (8.4-10.5)
[2018-08-01 22:55] LABS: ALB/GLOB RATIO 1.3 (1.1-1.8); ALBUMIN 3.2 g/dL (3.0-4.8)
[2018-08-01] MEDS ORDERED: Dextrose 50% SYRINGE Inj (50 ml) IVP ONE (23:06)
[2018-08-01] MEDS ORDERED: Dextrose 50% SYRINGE Inj (50 ml) IV PRN (23:07)
[2018-08-01] MEDS ORDERED: Sod Polystyrene Sulf 15 gm/60 ml Susp PO ONE (23:09)
[2018-08-01] MEDS ORDERED: Albuterol 0.5% Inhal Sol (2.5 mg/0.5 ml) UD IH SCH (23:15)
[2018-08-01] MEDS ORDERED: Insulin Regular 1 UNITS/0.01 ML ML SC ONE (23:15)
[2018-08-01] MEDS ORDERED: Insulin Regular 1 UNITS/0.01 ML ML IV ONE (23:45)
[2018-08-02 03:10] LABS: CALCIUM 8.9 mg/dL (8.4-10.5)
[2018-08-02 06:38] LABS: BASO # 0.01 K/mm3 (0.0-2.0); BASO % 0.1 % (0.0-3.0); EOS % 0.1 % (1.5-5.0); GRAN # 7.49 (1.4-6.5); GRAN % 83.5 % (50.0-68.0); HEMOGLOBIN 10.9 g/dL (14.0-18.0); LYMPH # 0.6 (1.2-3.4); LYMPH % 6.8 % (22.0-35.0); MEAN CELL VOLUME 93.6 fl (80.0-105.0); MONO # 0.9 (0.1-0.6); MONO % 9.5 % (1.0-6.0); RBC 3.76 10^6/uL (3.5-6.1); RED CELL DISTRIBUTION WIDTH 15.5 % (11.5-14.5)
[2018-08-02 06:55] LABS: ALB/GLOB RATIO 1.3 (1.1-1.8); CALCIUM 8.5 mg/dL (8.4-10.5)
--- NOTE | 2018-08-02 07:42 | CP.PCM.PCO ---
Physician Communication Note - Physician Communication Note Physician Communication Note: MSOF/?R CHF/Nephrology consulted requested
--- NOTE | 2018-08-02 09:10 | RAD ---
Date of service: 08/01/2018 HISTORY: Follow-up right otis colectomy July 30, 2018. COMPARISON: 07/29/2018. TECHNIQUE: Chest PA and lateral FINDINGS: LUNGS: Extensive consolidative changes are progressive left hemithorax a new consolidative changes right lower lobe. PLEURA: Increasing left pleural effusion. New right pleural effusion. CARDIOVASCULAR: Atherosclerotic calcifications identified primarily aortic arch. Cardiomegaly identified. OSSEOUS STRUCTURES: No significant abnormalities. VISUALIZED UPPER ABDOMEN: Free air under the diaphragms consistent with recent right hemicolectomy. OTHER FINDINGS: None. IMPRESSION: Worsening infiltrates and effusions particularly left otis thorax. Free air under the diaphragms consistent with surgery for right hemicolectomy. Communication of results: I discussed findings and was informed by the nurse involved in the care and management this patient of the recent right hemicolectomy.
--- NOTE | 2018-08-02 09:32 | CON ---
DATE OF CONSULTATION: 07/31/2018 Patient in Room 264, Bed 1. REASON FOR CONSULTATION: Atrial fibrillation, status post right hemicolectomy, hypertension. The patient recently had GI bleeding, found to have an ileocecal mass for which the patient was admitted yesterday for hemicolectomy. The patient previously had a colostomy for elective cancer resection in 2001. The patient also had infrarenal abdominal aortic aneurysm with endograft on 03/16/2018. The patient is now status post right hemicolectomy for ileocecal junction mass. The patient denies any chest pain, shortness of breath or palpitations. The patient was on Eliquis, but Eliquis has been put on hold, so we will continue to hold the Eliquis. The patient had an echo on 02/23/2018 with EF of 65%, moderate MR, [id number] pulmonary valve regurgitation. The patient has proximal septal wall thickening without any IHSS finding. The patient is on Cardizem CD 360 mg p.o. daily, metoprolol succinate 25 mg b.i.d. We will continue to monitor electrolytes, BUN and CBC and we will follow. Gladis Faye MD
[2018-08-02] MEDS: Metoprolol Succinate 25 mg XL Tab PO SCH ×2 (09:38→17:23)
[2018-08-02] MEDS: diltiaZEM 180 mg/24 Hours CD Cap PO SCH (09:38)
[2018-08-02] MEDS: oxyCODONE 5 mg Immediate Release Tab PO PRN (09:39)
[2018-08-02] MEDS: Meropenem IV 1 gm in NS 1 GM/50 ML BAG IVPB SCH ×2 (09:40→22:59)
[2018-08-02] MEDS: Enoxaparin 30 mg Syringe SC SCH (09:40)
--- NOTE | 2018-08-02 09:49 | PN ---
DATE: 08/01/2018 LOCATION: The patient in room 264, bed 1. This is an addendum progress note. Progress note has been already dictated by Evangelina Mcarthur. SUBJECTIVE: The patient who is status post right hemicolectomy due to ileocecal polypoid lesion, known atrial fibrillation, hypertension, TIA, anxiety, hyperlipidemia, history of falls, urinary frequency, retention, rectal cancer with previous resection in 2001. The patient has also colostomy and infrarenal abdominal aortic aneurysm with percutaneous aortic endograft on 03/16/2018. The patient is lying flat in bed without chest pain, shortness of breath, palpitation. The patient as mentioned before has chronic atrial fibrillation. The patient was at home on Eliquis, but due to surgery, Eliquis has been on hold. Dr. Du does not want to start Eliquis at this moment, so we will start Eliquis when Dr. Du, surgeon will okay it. The patient has been already started on Lovenox as per Hematology. The patient has been already started on metoprolol 25 b.i.d. and Diltiazem CD 360 mg p.o. daily, Lovenox 30 mg subcu daily. The patient is on ceftriaxone 1 g IV daily. The patient's hemoglobin today is 11.3 with hematocrit 36.9. We will monitor the patient and follow. Gladis Faye MD
--- NOTE | 2018-08-02 10:19 | CARD ---
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
--- NOTE | 2018-08-02 12:17 | US ---
Date of service:. 08/02/2018 HISTORY: Liver and kidney dysfunction. COMPARISON: Comparison made with prior CT scan abdomen pelvis 07/20/2018 and chest radiograph 08/01/2018. TECHNIQUE: Sonographic evaluation of the abdomen. FINDINGS: LIVER: Measures cm. Normal echogenicity of the liver parenchyma. No mass. No intrahepatic bile duct dilatation. GALLBLADDER: Unremarkable. No gallstones. COMMON BILE DUCT: Measures the 6.6 mm. No stones. No dilatation. PANCREAS: Not visualized due to body habitus and bowel gas.. RIGHT KIDNEY: Measures 10.4 x 4.9 x 5.1 nonobstructing lower pole calculus measuring 1.0 x 0.84 cm.. Normal echogenicity. No mass, or hydronephrosis. LEFT KIDNEY: Measures 10.8 x 5.0 x 4.7cm. Normal echogenicity. No mass, or hydronephrosis. Nonobstructing lower pole calculus measuring approximately 1.7 x 1.3 cm. Two additional mid to lower pole calculi not well delineated on this exam. The. SPLEEN: Spleen is enlarged measuring approximately 14.3 cm in greatest dimension. No obvious splenic masses or collections. Contour. No mass. AORTA: Endovascular repair large infrarenal abdominal aortic aneurysm IVC: Unremarkable. OTHER FINDINGS: Bilateral pleural effusions are present. IMPRESSION: Splenomegaly. Nonobstructing bilateral renal calculi.. The HX was C she states the the the cyst is the the the Bilateral pleural effusions..
[2018-08-02 12:58] LABS: PH,URINE 5.5 (4.7-8.0); URINE BILIRUBIN NEGATIVE (NEGATIVE); URINE BLOOD MODERATE (NEGATIVE); URINE GLUCOSE (UA) NEGATIVE (NEGATIVE); URINE LEUKOCYTE ESTERASE SMALL Leu/uL (NEGATIVE); URINE PROTEIN TRACE mg/dL (<30 mg/dL); URINE UROBILINOGEN 0.2 E.U./dL (<1 E.U./dL)
[2018-08-02 13:00] LABS: URINE APPEARANCE CLEAR (CLEAR); URINE COLOR YELLOW (YELLOW)
--- NOTE | 2018-08-02 13:03 | RAD ---
Date of service: 08/02/2018 HISTORY: opacity last week COMPARISON: 08/01/2018. study performed 17:46. FINDINGS: LUNGS: Complete collapse of the left lung, progressive compared to the prior study. Shift of mediastinal structures to the ups lateral side. Likely postobstructive atelectasis/mucous plugging. Improved aeration right lower lobe, progressive consolidative change right upper lobe. PLEURA: No significant pleural effusion identified, no pneumothorax apparent. CARDIOVASCULAR: Atherosclerotic calcifications identified primarily aortic arch. OSSEOUS STRUCTURES: No significant abnormalities. VISUALIZED UPPER ABDOMEN: Free air identified on prior studies not visible with certainty on the current study. OTHER FINDINGS: None. IMPRESSION: Postobstructive atelectasis suspected to account for findings of complete opacification left lung and progressive hips lateral shift of mediastinal structures.
--- NOTE | 2018-08-02 13:04 | CARD ---
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
[2018-08-02 13:12] LABS: URINE BACTERIA MANY (NEG); URINE EPITHELIAL CELLS 0 - 2 /hpf (0-5); URINE RBC 20 - 25 /hpf (0-2)
[2018-08-02 13:13] LABS: URINE AMORPHOUS SEDIMENT FEW; URINE COARSE GRANULAR CAST TRACE /hpf (0-2); URINE FINE GRANULAR CAST 0 - 2 /hpf (0-2)
--- NOTE | 2018-08-02 13:54 | CON ---
DATE: 08/01/2018 HISTORY OF PRESENT ILLNESS: This is an 82-year-old gentleman with history of rectal adenocarcinoma, status post hemicolectomy with colostomy placement, who had his surgery a couple of days ago and was asked to be seen by ICU Service due to worsening of his acute kidney injury and rising transaminitis. The patient undergone right hemicolectomy with parastomal hernia repair. Denies nausea, vomiting, diarrhea, or constipation. On presentation, the patient is comfortable, talks full sentences, not in respiratory or otherwise distress. He is protecting his airways. He is alert, awake and oriented x3. He is not complaining of any chest pain or shortness of breath. PAST MEDICAL HISTORY: Hypertension; stented AAA; seizure disorder; GERD; rectal cancer, status post hemicolectomy; Zenker diverticulum; atrial fibrillation, on Eliquis; rectal cancer. PAST SURGICAL HISTORY: Right hemicolectomy. FAMILY HISTORY: Noncontributory. SOCIAL HISTORY: No alcohol or illicit drug abuse. Patient is an ex-smoker. He used to smoke up until 1990 since age 12. REVIEW OF SYSTEMS: Review of 12-organ system other than mentioned in history of present illness is negative. ALLERGIES: NKDA. CURRENT MEDICATIONS: The patient is on half-normal saline, Cardizem, Lovenox, furosemide, metoprolol, Percocet, and Protonix. PHYSICAL EXAMINATION: VITAL SIGNS: Blood pressure 121/76, temperature 98.6, heart rate 95, respiratory rate 19, oxygen saturation 96% on room air. HEENT: Head and neck atraumatic. LUNGS: Clear to auscultation bilaterally. HEART: Regular rate and rhythm. S1, S2 normal. ABDOMEN: Soft, nontender, nondistended. Colostomy present. It is pink and looks viable. SKIN: Moist. PSYCHIATRIC: The patient is alert, awake and oriented x3. NEUROLOGIC: The patient moves all extremities spontaneously. LABORATORY DATA: Sodium 138, potassium 5.1, chloride 100, carbon dioxide 23, BUN 46, creatinine 2.1, glucose 160, AST of 497, ALT of 407. ProBNP is 33,700, total bilirubin is 1. WBC is 12.8, hemoglobin 11.9, and platelet count 108. Of note, the patient had echocardiogram performed in February of this year which showed moderate to severe pulmonary hypertension with RVSP of 63, diastolic left ventricular dysfunction, left atrium severely dilated while right atrium size is normal. CT of the chest performed also in February 2018 revealed substantial emphysematous changes. ASSESSMENT AND PLAN: This is an 82-year-old gentleman who is fairly asymptomatic from cardiopulmonary perspective; however, has worsening of renal and liver function. He made about 150 mL of urine over the period of 8 hours. His creatinine is rising. His LFTs are rising as well. He does appear to be slightly fluid overload and provided that his echocardiogram 5 months ago showed pulmonary hypertension (most likely secondary to left ventricular diastolic dysfunction), possibility of ensuing right ventricular insufficiency/failure with subsequent congestive hepatopathy and nephropathy seems likely. The patient is not on any medication that would explain both renal and liver failure. At the present time, I would proceed with echocardiogram and abdominal ultrasound to rule out obstructive uropathy and at the same time would allow some initial evaluation of the liver parenchyma and biliary structures. I would get Nephrology consult, potentially GI consult, and Cardiology on board. I would stop IV fluids and try to diurese the patient first. The patient is hemodynamically and respiratory mitchell stable, protecting airways, mentating well, and never been hypotensive at least based on the recordings in EMR. during this admission, thus ischemic hepatopathy and ischemia related acute tubular necrosis are less likely. At the present time, no need for the patient to go to medical ICU for airway, breathing, circulation management. However, if clinical situation change, the patient becomes hypotensive or extremely hypertensive, unable to protect his airways, becomes hypoxemic or hypercapnic, or any other clinical questions or concerns arise, please do not hesitate to call ICU for reevaluation. We will continue with deep venous thrombosis and gastrointestinal prophylaxis. ccm time 40 min Ari Andujar MD [place]
[2018-08-02] MEDS: Levalbuterol 1.25 MG/3 ML Inhal Soln UD IH SCH ×3 (14:02→20:23)
[2018-08-02] MEDS: Acetylcysteine 20% Inhal Soln (4ml) IH SCH ×3 (14:03→20:23)
--- NOTE | 2018-08-02 14:24 | PN ---
DATE: 08/02/2018 REASON FOR THE CONSULTATION: Postop followup status post right hemicolectomy, history of AFib. SUBJECTIVE: Preop, the patient has a normal stress test. The patient denies any chest pain, shortness of breath or any palpitation. Coming out from ultrasound department. Denies any chest pain, shortness of breath or any palpitation. OBJECTIVE: GENERAL: Not in any apparent distress, lying flat on the bed. Minimal drainage in the drainage tube, 10-20 mL over the last shift. Discussed with the nurse, says there is no significant drainage reported to her. VITAL SIGNS: Temperature afebrile, heart rate 64, blood pressure 117/69. HEENT: PERRLA. Extraocular muscles intact. NECK: Supple. No carotid bruits or thyromegaly. CHEST: Clear to auscultation. Air entry decreased at the base, but no rhonchi or rales auscultated. HEART: S1 and S2 regular. ABDOMEN: Soft. EXTREMITIES: Clubbing and cyanosis negative. LABORATORY DATA: Blood workup as follows; WBC 9, hemoglobin 10.9, hematocrit 35.2, platelet count 93. Chemistry shows sodium 130, potassium 4.9, chloride 101, carbon dioxide 25, anion gap of 16, BUN 60, creatinine 2.2. BNP 24,500. I's and O's, total intake 540, total output 549, 45 mL of negative fluid balance. The patient is on clear liquid, started today. IMPRESSION: An 82-year-old male with past medical history significant for colon cancer, status post colonic resection and colostomy in 2001. Recently, the patient had right hemicolectomy due to polypoid lesions at ileocecal junction, history of chronic atrial fibrillation, was on anticoagulation, on hold postop, history of transient ischemic attack, history of triple abdominal aortic aneurysm, infrarenal, status post endovascular repair. Preop endovascular repair, the patient has stress test is normal and echo was normal. Yesterday, chest x-ray reported as 2 views PA and lateral, reported extensive consolidation changes noted in the left hemithorax, new consolidative changes on the right lower lobe. Chest x-ray reviewed that looks right lower lobe questionable infiltrate and left lobe extensive consolidation as reported. RECOMMENDATION: Continue Cardizem. Continue followup pulmonary. Continue DVT prophylaxis. Once cleared from Surgery, we will restart Eliquis. Continue broad-spectrum antibiotic. We will get ultrasound of the chest to rule out any effusion. We will get some pulmonary evaluation and ultrasound of the chest. Today, chest x-ray also shows completely left-sided hemithorax. Thank you, Dr. Du, for providing us the opportunity in taking care of the patient, Roshan Hale. Gladis Greenfield MD
--- NOTE | 2018-08-02 14:37 | PN ---
DATE: 08/02/2018 SUBJECTIVE: The patient is 82 years old, seen and examined, lying in bed, seems to be comfortable, mild shortness of breath. No nausea or vomiting. No diarrhea. PHYSICAL EXAMINATION: VITAL SIGNS: He is afebrile, pulse 64, respiration 20, and blood pressure 117/69. LUNGS: Bilateral fair airflow, decreased at right lung base. HEART: S1, S2 audible. ABDOMEN: Soft. Colostomy is in place. There is gas in the colostomy with little liquid and he has RUSSELL drain in the right side, has 10 mL of the blood tinged drain. LABORATORY EXAM: WBC 9, hemoglobin 10.9, hematocrit 35.2 and platelets of 93. Chemistry: Sodium 137, potassium 4.9, chloride 101, CO2 of 25, BUN 60, creatinine 2.2, blood sugar of 137. AST 381, ALT 415, BNP is 24,500. Had abdominal sonogram done that is pending. ____ is pending. ASSESSMENT: 1. Partial right hemicolectomy. 2. Seizure disorder. 3. Abnormal LFTs, etiology unclear. 4. History of chronic obstructive pulmonary disease. 5. Hypertension. 6. Chronic atrial fibrillation. 7. Pancytopenia. PLAN: Currently the patient is on nebulizer treatment. We will continue that. The patient is on Mucomyst. He is getting nebulizer treatment. He is on diltiazem CD. He is on DVT prophylaxis that is Lovenox. He is on meropenem and he is getting analgesics, PPIs and beta-tammy. We will follow up his LFTs. Encourage out of bed to chair. Eventually he would benefit from TCU. Tri Fleming MD
--- NOTE | 2018-08-02 15:08 | CT ---
Date of service: 08/02/2018 PROCEDURE: CT Chest without contrast HISTORY: Complete opacification of right side chest, rule out effusion COMPARISON: Comparison made with CT chest 07/13/2018 TECHNIQUE: Contiguous axial images were obtained through the chest without intravenous contrast enhancement. Sagittal and coronal reconstructions were performed. Radiation dose: Total exam DLP = 307.12 mGy-cm. This CT exam was performed using one or more of the following dose reduction techniques: Automated exposure control, adjustment of the mA and/or kV according to patient size, and/or use of iterative reconstruction technique. FINDINGS: LUNGS: Large right-sided pleural effusion and right basilar as well as upper lobe atelectasis increased from prior study. Mild right upper lobe atelectasis. Significant centrilobular emphysematous changes seen in the upper lobes right greater than left.. Residual patchy infiltrate changes also noted in the right and to a lesser degree right middle lobes. There is lung near complete collapse of the left lung with a small left-sided effusion. Associated mediastinal shift from right to left . MEDIASTINUM: As mentioned above, there is mediastinal shift from right to left . The heart markedly enlarged with panchamber enlargement.. The ascending thoracic aorta measures approximately 3.4 cm and descending thoracic aorta is dilated measuring nearly 3.6 cm. Pulmonary trunk is also dilated measuring approximately 3.6 cm; rule out underlying pulmonary arterial hypertension. There is aortic atherosclerotic calcification or mural plaque present. The small nonspecific mediastinal lymph nodes are present. There is aortic atherosclerotic calcification or mural plaque present. PLEURA: As above. No evidence of pneumothorax. BONES: Mild multilevel degenerative spondylosis of the thoracic spine. Chronic appearing anterior wedge deformity T4 segment again noted there are no acute compression fractures no retropulsed fragments. Vertebral bodies exhibit relatively normal stature. UPPER ABDOMEN: The spleen exhibits heterogeneous attenuation pattern possibly related to crossing streak and beam hardening artifact. There appears to be enlargement of the left and probably to a lesser degree right adrenal glands. OTHER FINDINGS: Note made of enlarged heterogeneous right lobe of the thyroid gland . There are areas of mixed attenuation low-attenuation and a course as well as smaller calcifications. Follow-up thyroid ultrasound recommended. IMPRESSION: Near complete collapse of the left lung with small left-sided effusion and mild left basilar atelectasis.. Interval increase size right-sided effusion with right lower and upper lobe atelectasis. Persistent residual infiltrate changes right upper lobe. Centrilobular and panlobular emphysematous changes upper lobes or right greater than left. There has been interval shift of the mediastinum from right to left due to the aforementioned near complete collapse left lung. Marked cardiomegaly again noted with mclaughlin chamber enlargement. Dilatation of the descending thoracic aorta. Enlarged heterogeneous right lobe thyroid gland with mixed attenuation lesions and calcifications. Thyroid ultrasound follow-up suggested. See above discussion for additional details and findings.
[2018-08-02] MEDS: MethylPREDNISolone 40 mg Vial IVP SCH ×2 (16:54→23:00)
--- NOTE | 2018-08-02 17:30 | CP.PCM.PN ---
Subjective - Date & Time of Evaluation Date of Evaluation: 08/02/18 Time of Evaluation: 17:22 - Subjective Subjective: MICU RE-EVALUATION HPI Pt is 82yo male with past medical history of rectal cancer s/p total colectomy, zenker's diverticulum, thrombocytopenia, aortic stent placement for AAA, seizure disorder, hypertension, hyperlipidemia, thrombocytopenia, atrial fibrillation on eliquis present 3 weeks ago with blood clot in colostomy bag. Endoscopy was done on 07/16 showing a 35 mm sessile polyp in the ileocecal valve which was not able to be removed with endoscopy. Patient subsequently had surgery on 07/30 for polyp removal with parastomal hernia repair and tolerated the surgery well. ICU consulted yesterday, please refer to consult. ICU re-consulted today due to collapsed lung. Patient currently afebrile, BP stable, comfortable in NAD, on NRB sat 95%. Objective - Vital Signs/Intake and Output Vital Signs (last 24 hours): Temp Pulse Resp BP Pulse Ox 98.3 F 79 20 138/80 95 08/02/18 12:00 08/02/18 14:00 08/02/18 12:00 08/02/18 12:00 08/02/18 06:00 Intake and Output: 08/02/18 08/02/18 06:59 18:59 Intake Total 540 Output Total 495 Balance 45 - Medications Medications: Current Medications Acetylcysteine (Acetylcysteine 20%) 4 ml IH [id number] KD Last Admin: 08/02/18 15:49 Dose: 4 ml Albuterol Sulfate (Albuterol 0.5% Inhal Shwetha (2.5 Mg/0.5 Ml) Ud) 5 mg IH Q5MIN KD Stop: 08/02/18 23:16 Last Admin: 08/02/18 01:09 Dose: 5 mg Dextrose (Dextrose 50% Inj) 0 ml IV STAT PRN; Protocol PRN Reason: Hypoglycemia Protocol Diltiazem HCl (Cardizem Cd) 360 mg PO DAILY KD Last Admin: 08/02/18 09:38 Dose: 360 mg Enoxaparin Sodium (Lovenox) 30 mg SC DAILY KD; Protocol Last Admin: 08/02/18 09:40 Dose: 30 mg Meropenem (Merrem Iv 1 Gm Premix) 1 gm in 50 mls @ 100 mls/hr IVPB Q12 KD; Protocol Stop: 08/10/18 22:01 Last Admin: 08/02/18 09:40 Dose: 100 mls/hr Dextrose (Dextrose 5% In Water 1000 Ml) 1,000 mls @ 0 mls/hr IV .Q0M PRN; Protocol PRN Reason: Hypoglycemia Protocol Levalbuterol HCl (Xopenex) 1.25 mg IH [id number] [facility] Last Admin: 08/02/18 15:49 Dose: 1.25 mg Methylprednisolone (Solu-Medrol) 40 mg IVP Q8 KD Last Admin: 08/02/18 16:54 Dose: 40 mg Metoprolol Succinate (Toprol Xl) 25 mg PO BID [facility] Last Admin: 08/02/18 09:38 Dose: 25 mg Oxycodone HCl (Oxycodone Immediate Release Tab) 5 mg PO Q4H PRN PRN Reason: Pain, moderate (4-7) Last Admin: 08/02/18 09:39 Dose: 5 mg Pantoprazole Sodium (Protonix Inj) 40 mg IVP Q12 [facility] Last Admin: 08/02/18 09:40 Dose: 40 mg - Labs Labs: 08/02/18 05:50 08/02/18 05:50 - Constitutional Appears: Non-toxic, No Acute Distress - Head Exam Head Exam: NORMAL INSPECTION - Eye Exam Eye Exam: Normal appearance - ENT Exam ENT Exam: Mucous Membranes Moist - Respiratory Exam Respiratory Exam: Decreased Breath Sounds, NORMAL BREATHING PATTERN Additional comments: + decreased breath sounds on left - Cardiovascular Exam Cardiovascular Exam: REGULAR RHYTHM, +S1, +S2 - GI/Abdominal Exam GI & Abdominal Exam: Soft, Normal Bowel Sounds Additional comments: + colostomy +midline surgical scar with jerardo Assessment and Plan - Assessment and Plan (Free Text) Assessment: 82 year old male with past medical history of rectal cancer s/p total colectomy, zenker's diverticulum, thrombocytopenia, aortic stent placement for AAA, seizure disorder, hypertension, hyperlipidemia, thrombocytopenia, atrial fibrillation on eliquis s/p surgery on 07/30 for polyp removal with parastomal hernia repair, with multi organ failure, and lung collapse Labs, imaging, chart reviewed. CXR and CT with near total collaps eof Left Lung with mediastinal shift, r/o mucus plugging, pleural effusion Pulmonary consulted Renal, ID following Patient is in NAD, speaking full sentences Atelectasis/Lung Collapse Afib COPD Hx Smoking Rectal Ca s/p total colectomy Chronic Thrombocytopenia r/o PNA, r/o Mucus plugging Pleural effusion Renal failure Recommend: - high flow O2, as tolerated, goal sat 90%, dueonsd PRN, Solumedrol - Incentive spirometry, aggressive chest PT - pulm eval, possible bronchoscopy - follow up cultures, UCx, BCx, Procal - Abx as per ID - NPO after MN, possible bronchoscopy in AM by pulmonary - Follow up renal - Lasix IV diuresis - I/Os - FS control - GI ppx - DVT ppx - Monitor in MICU Critical care time 40 minutes
--- NOTE | 2018-08-02 20:17 | CON ---
DATE: 08/02/2018 REFERRING PHYSICIAN: Rocael Du MD REASON FOR PULMONARY CONSULTATION: Abnormal chest x-ray. HISTORY OF PRESENT ILLNESS: The patient is an 82-year-old male, with past medical history significant for chronic obstructive pulmonary disease, atrial fibrillation, hypertension, rectal cancer with resection in 2001, abdominal aortic aneurysm, who presented to [facility] - on 07/30/2018 - for a right hemicolectomy. Apparently, recent colonoscopy showed a villous adenoma. The patient thus presented for surgical resection. The patient is not particularly short of breath at rest. He does state to some occasional chronic dyspnea on exertion. He also states to a chronic occasional cough with occasional sputum production. There is no history of chest pain, coughing up of blood, or chest pain - made worse with deep respirations. There was some low-grade fevers noted postoperatively. No history of chills or infectious exposure. No history of night sweats, weight loss, or appetite change prior to the above events. No history of leg or calf pains. No history of syncope or diaphoresis. No history of recent travel or trauma. REVIEW OF SYSTEMS: No acute urinary symptoms. No nausea, vomiting, or diarrhea. No new neurologic or musculoskeletal complaints. Rest of the review of systems is negative. ALLERGIES: NO KNOWN ALLERGIES. SOCIAL HISTORY: Positive for tobacco. Negative for alcohol. FAMILY HISTORY: No inheritable diseases. HOME MEDICATIONS: Include Cardizem, Dilantin, Protonix, Toprol, Xopenex, Lipitor. PHYSICAL EXAMINATION: GENERAL: The patient is not short of breath at rest. He is not using accessory muscles for breathing. VITAL SIGNS: Temperature is 98.4, pulse 64, respirations 20, blood pressure 117/69. Oxygen saturation on nasal cannula is 95%-96%. HEENT: Normocephalic, atraumatic. NECK: No JVD. CARDIOVASCULAR: Systolic ejection murmur at the lower left sternal border. No S3 gallop. LUNGS: Decreased breath sounds - left lower lobe. Minimal rhonchi. No wheezing. EXTREMITIES: Mild edema. No cyanosis, no clubbing. Calves are nontender to palpation. GI: Abdomen is postoperative. It is soft and nondistended. It is mildly tender to palpation. SKIN: No acute rash. NEUROLOGIC: Limited at the present time. PERTINENT LABORATORY DATA: Chest x-ray was done on 08/01/2018 and reviewed. There is opacity noted at the left lower lobe. The opacity appears to be a combination of atelectasis and effusion. CBC: White count 9.0K, hemoglobin 10.9, hematocrit 35.2, platelets of 93,000. Complete metabolic profile: BUN 60, creatinine 2.2, glucose 137, phosphorus 6.5, magnesium 2.5, AST 381, ALT 415. B-type natriuretic peptide 24,500. Total protein 5.2. IMPRESSION: 1. Effusion, atelectasis - left lower lobe. 2. Chronic obstructive pulmonary disease. 3. Congestive heart failure. 4. Atrial fibrillation. 5. Status post right hemicolectomy. 6. Anemia, thrombocytopenia. PLAN: I did discuss the case with Dr. Du at length. I also discussed the case with the nurse at length. I have also reviewed the chart at length. The patient presented to [facility] - originally on 07/30/2018 - for a right hemicolectomy. Again, as above, a recent colonoscopy did show a villous adenoma. Thus, the patient was scheduled for surgery. I did review the most recent x-ray. There appears to be atelectasis and effusion noted at the left lower lobe. I have also reviewed the laboratory data. A significant rise in the B-type natriuretic peptide is noted. The patient was given Lasix. Cardiology is following the case. On physical exam, there is only mild bronchospasm noted. I will place the patient on Xopenex nebulizer treatments, as well as acetylcysteine every 6 hours. I will also order chest percussion therapy and suctioning to be done by Respiratory. I did discuss the orders with Respiratory at length. A repeat chest x-ray has been ordered for later today. I will check that when feasible. It has not been done as of yet. Clinical status of the patient appears guarded at this point in time. He remains in atrial fibrillation and thrombocytopenic. As above, we will start aggressive pulmonary toileting and follow repeat chest x-rays. Additional pulmonary intervention will be based on the clinical status of the patient, and above x-ray results Again, I did discuss the above with Dr. Du. Thank you very much for this pulmonary consultation. Rosalio Blevins MD [facility] # [phone] [place]
--- NOTE | 2018-08-02 21:41 | CP.PCM.PCO ---
Physician Communication Note - Physician Communication Note Physician Communication Note: Pt needs Bronchoscopy through [facility]-?Respirator p OR
--- NOTE | 2018-08-02 22:48 | CP.PCM.PCO ---
<Kishan Brownlee - Last Filed: 08/02/18 22:42> Physician Communication Note - Physician Communication Note Physician Communication Note: Family Called Addendum Addendum: 08/02/18 22:42 Patient's daughter Shira call was returned at [phone] at 2242 She was notified that patient is in ICU for collapsed lung; etiology is still being worked up at this time Daughter was told patient is not respiratory distress; saturating well on nasal canal; vitals stable HR 85; BP 135/77; Chest xray and CT showed collapse of L lung. Lab results were reviewed with daughter <OliviaMaj harpaledwin - Last Filed: 08/03/18 01:38> Attending/Attestation - Attestation I have personally seen and examined this patient.: No I have fully participated in the care of the patient.: No I have reviewed all pertinent clinical information: No
[2018-08-03] MEDS: Levalbuterol 1.25 MG/3 ML Inhal Soln UD IH SCH ×4 (01:48→19:38)
[2018-08-03] MEDS: Acetylcysteine 20% Inhal Soln (4ml) IH SCH ×2 (01:48→07:54)
--- NOTE | 2018-08-03 02:46 | CON ---
DATE: 08/02/2018 The patient seen earlier today in room 64, bed 1. CHIEF COMPLAINT: Low-grade fever, shortness of breath times 1-2 days. HISTORY OF PRESENT ILLNESS: He is an 82-year-old male who is diagnosed rectal cancer, history of GI hemorrhage, atrial fibrillation, seizures, low platelets, congestive heart failure, myocardial infraction, TIA, anxiety, and the patient had a hemicolectomy and postop day now is number 1. The patient had increasing white counts, low-grade fevers, and shortness of breath. REVIEW OF SYSTEMS: Review of the patient 12-point review of systems performed. There is shortness of breath, there is cough, has low-grade fever, coughing nonproductive. No abdominal pain. There is some abdominal discomfort. No diarrhea or constipation. No headaches, no blurred vision, no neck pain. PAST MEDICAL HISTORY: Significant for rectal cancer, atrial fibrillation, seizures, TIA, low platelets, congestive heart failure, anxiety, and GI bleed. PAST SURGICAL HISTORY: Significant for angioplasty and of course the recent colostomy. ALLERGIES: THE PATIENT HAS NO KNOWN ALLERGIES. MEDICATIONS AT HOME: Reviewed. PHYSICAL EXAMINATION: VITAL SIGNS: The patient's temperature is 99, blood pressure is 117/60, respiratory rate of 20, and heart rate was up to 99 to 105. HEENT: Unremarkable. NECK: Supple. LUNGS: Decrease breath sounds. HEART: Normal S1 and S2. ABDOMEN: Soft and nontender. LABORATORY EXAMINATION: Review of the patient white count is 9, hemoglobin of 10, platelets of 93. Chemistry is reviewed with a creatinine is 2.2, and it was 1.7. Urinalysis is noted. Procalcitonin is 1.44, and BNP is elevated. ASSESSMENT AND PLAN: He is an 82-year-old male with rectal cancer, atrial fibrillation, seizures, low platelets, congestive heart failure, anxiety and with post procedure day number 1. He had a chest x-ray. Leukocytosis. 1. Severe sepsis of left-sided healthcare associated pneumonia with acute kidney injury, creatinine has changed from 1.7 to 2.1. We will treat the patient with insulin, vancomycin, and meropenem. Pending blood culture, urine cultures, and nasal MRSA screen and sputum cultures and will make further recommendations upon his availability of initial results. We will follow closely with you. Jason Garvin MD [facility] # [id number]
[2018-08-03 06:16] LABS: GRAN # 5.44 (1.4-6.5); GRAN % 94.3 % (50.0-68.0); HEMOGLOBIN 11.8 g/dL (14.0-18.0); LYMPH # 0.2 (1.2-3.4); LYMPH % 3.6 % (22.0-35.0); MEAN CELL VOLUME 92.8 fl (80.0-105.0); MEAN CORPUSCULAR HEMOGLOBIN 29.4 pg (25.0-35.0); MEAN CORPUSCULAR HGB CONC 31.6 g/dl (31.0-37.0); MEAN PLATELET VOLUME 9.6 fl (7.0-11.0); MONO # 0.1 (0.1-0.6); MONO % 2.1 % (1.0-6.0); PLATELET COUNT 78 10^3/uL (120.0-450.0); RBC 4.02 10^6/uL (3.5-6.1); RED CELL DISTRIBUTION WIDTH 15.1 % (11.5-14.5); WHITE BLOOD COUNT 5.8 10^3/ul (4.5-11.0)
[2018-08-03 06:37] LABS: ALB/GLOB RATIO 1.3 (1.1-1.8); ALBUMIN 3.1 g/dL (3.0-4.8); CALCIUM 8.5 mg/dL (8.4-10.5)
--- NOTE | 2018-08-03 07:03 | CP.PCM.PCO ---
Physician Communication Note - Physician Communication Note Physician Communication Note: L Main Bronchus occluded-Needs Bronchoscopy/LFT- better
--- NOTE | 2018-08-03 08:07 | PN ---
DATE: 08/03/2018 PULMONARY NOTE DICTATION SUBJECTIVE: The patient appears comfortable this morning. He is mildly short of breath, but in no acute distress. PHYSICAL EXAMINATION: VITAL SIGNS: Temperature is 98.6, pulse on the monitor is 88, respiratory rate 20/22, blood pressure 124/82. Oxygen saturation on high-flow delivery is 88%-90%. HEENT: Normocephalic, atraumatic. No JVD. CARDIOVASCULAR: Systolic ejection murmur at the lower left sternal border. No S3 gallop. LUNGS: Decreased breath sounds--- left lung. Minimal bilateral rhonchi. No wheezing. EXTREMITIES: Mild edema. No cyanosis, no clubbing. Calves are nontender to palpation. GI: Abdomen is postoperative. It is soft and nondistended. It is mildly tender to palpation. SKIN: No acute rash. NEUROLOGIC: Exam limited at the present time. PERTINENT LABORATORY DATA: Chest x-ray was done this morning and reviewed. There is significant/increased opacification noted in the left lung consistent with atelectasis. CAT scan of the chest was also done last night and reviewed. There is almost complete collapse of the left lung with a small left-sided pleural effusion. There is also a [id number] right pleural effusion with minimal atelectasis(right base). IMPRESSION: 1. Effusion/atelectasis - left lung. 2. Chronic obstructive pulmonary disease. 3. Congestive heart failure. 4. Atrial fibrillation. 5. Status post right hemicolectomy. 6. Anemia, thrombocytopenia. PLAN: The patient is now in the ICU. He is mildly short of breath, but in no acute distress. I did discuss the case with the night nurse at length. The night nurse stated that the patient had a "guarded" night. I did review the CAT scan of the chest and the most recent chest x-ray. Both films are consistent with atelectasis of the left lung secondary to mucus plugging. I did discuss the case and the chest x-ray results with the respiratory therapist at length. We will continue with the aggressive pulmonary toilet for now. However, it is quite possible that the patient will need a bronchoscopy. On physical exam, there is no significant/less bronchospasm noted. However, there is a significant increase in the alveolar-arterial gradient. I will continue the current nebulizer treatments and pulmonary toilet for now. The patient is also on intravenous Solu-Medrol. Inputs by Surgery, Cardiology and Infectious Disease are also noted. Clinical status of the patient is certainly guarded at this point in time. Again, the patient may very well need bronchoscopy (with airway protection). I will discuss the above with the entire ICU team in the next few moments. I will also discuss the above the attending physician later this morning. Rosalio Blevins MD MTDD
[2018-08-03] MEDS: MethylPREDNISolone 40 mg Vial IVP SCH ×3 (08:09→21:53)
[2018-08-03 08:10] LABS: LYMPHOCYTE 3 % (22.0-35.0); MONOCYTE 2 % (1.0-6.0); NEUTROPHIL 95 % (50.0-70.0); PLATELET ESTIMATE LOW (NORMAL)
[2018-08-03 08:11] LABS: ANISOCYTOSIS SLIGHT; OVALOCYTES SLIGHT; POIKILOCYTOSIS SLIGHT
[2018-08-03] MEDS ORDERED: Etomidate 20 mg/10ml Inj IV ONE (08:29)
[2018-08-03] MEDS ORDERED: Propofol 10 mg/ml 1,000 MG/100 ML VIAL ONE (08:29)
[2018-08-03] MEDS: Propofol 10 mg/ml 1,000 MG/100 ML VIAL IV PRN ×2 (08:30→17:01)
--- NOTE | 2018-08-03 08:50 | PN ---
DATE: 08/02/2018 SUBJECTIVE: This 82-year-old male was examined at bedside and this case was reviewed in detail with Dr. Rocael Du from Surgery. The patient remains weak and deconditioned on examination at his bedside. I was asked to evaluate the patient with acute azotemia. I reviewed his urinalysis, which showed coarse granular casts as well as hyaline casts consistent with acute tubular necrosis postoperatively. Of note, the patient denies any fever, chills, chest pain, or shortness of breath and remains in atrial fibrillation rhythm on the residential monitor. PHYSICAL EXAMINATION: VITAL SIGNS: Revealed temperature 99, respirations 20, pulse 79, blood pressure 138/80. Monitor, AFib. HEENT: Head: Normocephalic, atraumatic. Eyes: No icterus. Ears: Clear. Throat: Noninjected. NECK: Supple. HEART: Irregular S1, S2. LUNGS: Clear. ABDOMEN: Soft. Colostomy functioning. EXTREMITIES: No edema. SKIN: Without rash. NEUROLOGICAL: Deconditioned. VASCULAR: Legs warm to touch. LABORATORY DATA: Sodium 137, K 5.8, chloride 101, bicarb 27, BUN 56, creatinine 2.2 on the evening of 08/01/2018. At present, his labs show a sodium of 137, K 4.9, chloride 101, bicarb 25, BUN 60, creatinine 2.2 with a random blood sugar of 137. Phosphorous 6.5. AST 381, ALT 415. Previously, AST 522 with ALT of 415. Procalcitonin level was elevated at 1.44. EKG was reviewed and consistent with atrial fibrillation with nonspecific ST-T wave changes. IMPRESSION: This is an 82-year-old male who recently underwent hemicolectomy, now with colostomy for cecal mass, pathology pending and comorbidities of atrial fibrillation, chronic hypertension, seizure syndrome, anemia of iron deficiency, hyperlipidemia, chronic obstructive pulmonary disease, and now with acute renal failure, probably consistent with acute tubular necrosis postoperatively. PLAN: At present, is to continue Cardizem 360 mg p.o. daily, D5W at KVO for hypoglycemic protocol. He continues on Lovenox 30 mg subcu daily, meropenem which should be dose reduced for renal insufficiency, Protonix 40 mg IV every 12 hours, Solu-Medrol 40 mg IV every 8 hours, Toprol-XL 25 mg p.o. b.i.d., and Xopenex inhalational therapy every 6 hours. He is scheduled for a chest x-ray and chest CT. He is ordered to have nasal O2 and pulmonary therapy. An echocardiogram has been ordered and repeat labs will be ordered including comprehensive metabolic panel in the a.m. He is wearing antiembolism stockings. He will be followed by Pulmonary and Infectious Disease as well as Dr. Du from Surgery and Dr. Blevins from Pulmonary. Based on clinical progress, additional diagnostic testing will be entertained. The patient's I's and O's should be kept fairly even given his clinical problems and all medications should be renally dosed. Sara Ramirez MD MTDD
[2018-08-03] MEDS ORDERED: Midazolam 2 MG/2 ML VIAL ONE ×2 (08:53→10:06)
[2018-08-03] MEDS ORDERED: Midazolam 2 MG/2 ML VIAL IVP ONE (09:02)
--- NOTE | 2018-08-03 09:51 | PN ---
DATE: 08/03/2018 SUBJECTIVE: The patient is in bed, in no acute distress, nontoxic. PHYSICAL EXAMINATION: VITAL SIGNS: On exam, temperature is 98, blood pressure is 120/80, respiratory rate of 18. HEENT: Examination of HEENT is unremarkable. NECK: Supple. LUNGS: Have decreased breath sounds. HEART: Normal S1, S2. ABDOMEN: Soft. LABORATORY DATA: Laboratory examination reveals the white count is 5.8, hemoglobin 11, platelets of 78. Chemistries are noted. Creatinine is 1.88. Blood cultures are no growth. The patient is intubated on a ventilator. Microbiology is reviewed. ASSESSMENT AND PLAN: An 82-year-old male with severe sepsis, left-sided healthcare-associated pneumonia with acute kidney injury, now with respiratory failure, intubated on a ventilator, on intermittent vancomycin and meropenem. Cultures pending. Procalcitonin is elevated. Overall prognosis quite poor. Jason Garvin MD
[2018-08-03] MEDS: Dextrose 5%/0.45% NS 1,000 ML IV SCH (09:52)
[2018-08-03] MEDS: Meropenem IV 1 gm in NS 1 GM/50 ML BAG IVPB SCH ×2 (09:59→21:51)
[2018-08-03 10:03] LABS: ARTERIAL BLOOD GAS HCO3 26.4 mmol/L (21-28); ARTERIAL BLOOD GAS O2 SAT 97.2 % (95-98); ARTERIAL BLOOD GAS PCO2 38 mm/Hg (35-45); ARTERIAL BLOOD GAS PH 7.45 (7.35-7.45); ARTERIAL BLOOD GAS TCO2 27.6 mmol.L (22-28)
--- NOTE | 2018-08-03 10:07 | RAD ---
Date of service: 08/03/2018 HISTORY: s/p bronchoscopy COMPARISON: Portable chest 08/03/2018 8:15 a.m.. FINDINGS: LUNGS: Endotracheal tube is in placed with the tip terminating 3 cm above the raul. No interval change in mid to inferior left pulmonary opacity with patient's lower face obscuring left apex. Limited patchy airspace disease remains at the right base, borderline at the right perihilar region. Right pleural effusion less apparent. Left pleural effusion is not excluded. No definite pneumothorax bilaterally. Attenuation of the distal left mainstem bronchus remains, potentially from mucous plugging. Clinically correlate further. PLEURA: As above. CARDIOVASCULAR: Cardiac size remains obscured by left-sided pulmonary opacity. No definite pulmonary vascular congestion. Calcific atherosclerotic changes are seen related to the thoracic aorta. OSSEOUS STRUCTURES: No significant abnormalities. VISUALIZED UPPER ABDOMEN: Normal. OTHER FINDINGS: None. IMPRESSION: Interval endotracheal intubation as discussed above. No interval change in limited right basilar patchy density and prominent opacity at the mid to inferior left lung zones. Borderline right perihilar patchy density is question developing. No pulmonary vascular congestion apparent.
[2018-08-03] MEDS: diltiaZEM 180 mg/24 Hours CD Cap PO SCH (10:15)
[2018-08-03] MEDS ORDERED: Midazolam 100 mg/100ml in NS 100 MG/100 ML SOL IV PRN (10:21)
[2018-08-03] MEDS: Enoxaparin 30 mg Syringe SC SCH (10:26)
[2018-08-03] MEDS: Metoprolol Succinate 25 mg XL Tab PO SCH ×2 (10:32→16:59)
--- NOTE | 2018-08-03 10:39 | RAD ---
Date of service: 08/03/2018 HISTORY: s/p bronch, previous read not read COMPARISON: Portable chest 08/03/2018 9:15 a.m.. FINDINGS: Endotracheal tube unchanged in position. No pneumothorax bilaterally. No definite right pleural effusion identified. Left pleural effusion is not excluded with slightly improved aeration at the mid left lung zone identified. Limited patchy density remains at the inferior medial right lung zone. Mid to inferior left basilar pulmonary opacity persists. Attenuated distal left mainstem bronchus reiterated. Cardiac size remains obscured. No definite pulmonary vascular congestion. OTHER FINDINGS: None. IMPRESSION: As above.
--- NOTE | 2018-08-03 11:32 | RAD ---
Date of service: 08/03/2018 HISTORY: re-eval of flower field COMPARISON: Portable chest 08/02/2018. FINDINGS: LUNGS: There is no significant interval change in left-sided pulmonary complete opacification with improved aeration the right lung appreciated. Limited right pleural effusion evident. No pneumothorax bilaterally. Attenuation at the distal left mainstem bronchus may indicate mucous plugging or other airway obstruction. Clinically correlate further. Patient rotated toward the left limiting evaluation of mediastinal positioning. Limited leftward mediastinal shift not excluded once again. PLEURA: As above. CARDIOVASCULAR: Calcific atherosclerotic changes are seen related to the thoracic aorta. Cardiac silhouette remains obscured by left-sided opacity OSSEOUS STRUCTURES: No significant abnormalities. VISUALIZED UPPER ABDOMEN: Normal. OTHER FINDINGS: None. IMPRESSION: No interval change in complete opacification of the left hemithorax with limited right pleural effusion reiterated, including post obstructive atelectasis. Previous mid right pulmonary patchy opacity appears to have resolved.
--- NOTE | 2018-08-03 11:40 | RAD ---
Date of service: 08/03/2018 HISTORY: prior to bronch. COMPARISON: No prior. FINDINGS: LUNGS: Left apex is well aerated with partial aeration at the mid left lung zone now evident although attenuation of the distal segment main left bronchus is reiterated. Mid inferior lung zones remain deeply opacified suggestive of postobstructive atelectasis at a minimum. Borderline patchy density developing in the inferior right lung zone with trace fluid question at the minor fissure. Minimal right blast larger pleural effusion present and left pleural effusion is not excluded. No pneumothorax bilaterally. PLEURA: As above. CARDIOVASCULAR: No pulmonary vascular congestion. Cardiac silhouette remains obscured by left-sided pulmonary opacity. Calcific atherosclerotic changes are seen related to the thoracic aorta. OSSEOUS STRUCTURES: No significant abnormalities. VISUALIZED UPPER ABDOMEN: Normal. OTHER FINDINGS: None. IMPRESSION: Improving aeration at the left hemithorax now identified at the left upper lung zone and a portion of the mid left lung zone as well. Persistent left basilar and mid left pulmonary opacity remains likely representing at least postobstructive atelectasis with underlying infiltrate in left pleural effusion not excluded. Limited developing airspace disease right base suggestive of probable atelectasis. Minimal right pleural effusions identified.
[2018-08-03] MEDS: Acetylcysteine 20% Inhal Soln (4ml) PO SCH ×3 (12:00→16:58)
[2018-08-03] MEDS ORDERED: Acetylcysteine 20% Inhal Soln (4ml) PO SCH ×2 (12:00→14:00)
--- NOTE | 2018-08-03 12:21 | CP.PCM.PN ---
Subjective - Date & Time of Evaluation Date of Evaluation: 08/03/18 Time of Evaluation: 10:35 - Subjective Subjective: Patient seen and examined at beside, remains comfortable. Initial CXR this morning, with complete whiteout of L lung, aggressive Chest PT pefromed follow up by bronchoscopy by Dr Blevins, with significant improvement in subsequent CXR in aeration of L lung. Objective - Vital Signs/Intake and Output Vital Signs (last 24 hours): Temp Pulse Resp BP Pulse Ox 98.6 F 83 18 124/82 92 L 08/03/18 00:00 08/03/18 01:20 08/03/18 08:00 08/03/18 01:00 08/03/18 01:20 Intake and Output: 08/03/18 08/03/18 06:59 18:59 Intake Total 2040 Output Total 1000 Balance 1040 - Medications Medications: Current Medications Acetylcysteine (Acetylcysteine 20%) 3 ml PO Q2 KD Stop: 08/03/18 16:01 Dextrose (Dextrose 50% Inj) 0 ml IV STAT PRN; Protocol PRN Reason: Hypoglycemia Protocol Diltiazem HCl (Cardizem Cd) 360 mg PO DAILY [facility] Last Admin: 08/03/18 10:15 Dose: Not Given Enoxaparin Sodium (Lovenox) 30 mg SC DAILY KD; Protocol Last Admin: 08/03/18 10:26 Dose: 30 mg Famotidine (Pepcid) 20 mg IVP DAILY [facility] Last Admin: 08/03/18 10:26 Dose: 20 mg Meropenem (Merrem Iv 1 Gm Premix) 1 gm in 50 mls @ 100 mls/hr IVPB Q12 KD; Protocol Stop: 08/10/18 22:01 Last Admin: 08/03/18 09:59 Dose: 100 mls/hr Dextrose (Dextrose 5% In Water 1000 Ml) 1,000 mls @ 0 mls/hr IV .Q0M PRN; Protocol PRN Reason: Hypoglycemia Protocol Dextrose/Sodium Chloride (Dextrose 5%/0.45% Ns 1000 Ml) 1,000 mls @ 70 mls/hr IV .[id number] KD Stop: 08/05/18 10:00 Last Admin: 08/03/18 09:52 Dose: 70 mls/hr Propofol (Diprivan) 1,000 mg in 100 mls @ 1.891 mls/hr IV .Q24H PRN; Protocol PRN Reason: TITRATE PER MD ORDER Last Admin: 08/03/18 08:30 Dose: 5 mcg/kg/min, 1.891 mls/hr Midazolam 100 mg/100ml in NS (Midazolam 100 Mg/100ml In Ns) 100 mg in 100 mls @ 2 mls/hr IV .Q24H PRN; Protocol PRN Reason: Agitation Last Admin: 08/03/18 10:35 Dose: 2 mg/hr, 2 mls/hr Levalbuterol HCl (Xopenex) 1.25 mg IH [id number] KD Last Admin: 08/03/18 07:54 Dose: 1.25 mg Methylprednisolone (Solu-Medrol) 40 mg IVP Q12 KD Last Admin: 08/03/18 10:32 Dose: 40 mg Metoprolol Succinate (Toprol Xl) 25 mg PO BID KD Last Admin: 08/03/18 10:32 Dose: Not Given Oxycodone HCl (Oxycodone Immediate Release Tab) 5 mg PO Q4H PRN PRN Reason: Pain, moderate (4-7) Last Admin: 08/02/18 09:39 Dose: 5 mg - Labs Labs: 08/03/18 05:20 08/03/18 05:20 - Constitutional Appears: Non-toxic, No Acute Distress, Cachectic, Chronically Ill - Head Exam Head Exam: NORMAL INSPECTION - Eye Exam Eye Exam: Normal appearance - ENT Exam ENT Exam: Mucous Membranes Moist - Respiratory Exam Respiratory Exam: Clear to Ausculation Bilateral, NORMAL BREATHING PATTERN - Cardiovascular Exam Cardiovascular Exam: REGULAR RHYTHM, +S1, +S2 - GI/Abdominal Exam GI & Abdominal Exam: Soft, Normal Bowel Sounds - Extremities Exam Extremities Exam: Normal Inspection - Back Exam Back Exam: NORMAL INSPECTION - Neurological Exam Additional comments: +intubated, sedated Assessment and Plan - Assessment and Plan (Free Text) Assessment: 82 year old male with past medical history of rectal cancer s/p total colectomy, zenker's diverticulum, thrombocytopenia, aortic stent placement for AAA, seizure disorder, hypertension, hyperlipidemia, thrombocytopenia, atrial fibrillation on eliquis s/p surgery on 07/30 for polyp removal with parastomal hernia repair, with multi organ failure, and lung collapse Labs, imaging, chart reviewed. CXR and CT with near total collapse of Left Lung with mediastinal shift on this morning imaging, with mucus plugging, pleural effusion Pulmonary consulted, aggressive chest PT implemented. Pt s/p bronchoscopy after being intubated for procedure. Post Procedure CXR with significant improvement in aeration of L lung, still some residual stelectasis of left lower lobe present. Renal, ID following Patient is intubated, sedated Atelectasis/Lung Collapse Afib COPD Hx Smoking Rectal Ca s/p total colectomy Chronic Thrombocytopenia r/o PNA, Mucus plugging s/p bronchoscopy Pleural effusion Renal failure Recommend: - cont with vent support, low tidal, vol ventilation, dueonebs PRN, Solumedrol - aggressive chest PT - pulm follow up, follow up bronch cultures - follow up cultures, UCx, BCx, Procal - Abx as per ID - Follow up renal - I/Os - FS control - GI ppx - DVT ppx - Monitor in MICU Critical care time 35 minutes
--- NOTE | 2018-08-03 12:46 | BRONCH ---
PROCEDURE DATE: 08/03/2018 BRONCHOSCOPY PREOPERATIVE DIAGNOSIS: Left lung Atelectasis. POSTOPERATIVE DIAGNOSIS: Same PROCEDURE: Fiberoptic bronchoscopy was done via the endotracheal tube. The raul was sharp. There were minimal secretions noted in the left mainstem bronchus. There was also a moderate amount of thick mucoid secretions noted - impacting the left lower lobe rhonchi. These mucous plugs were easily removed. Bronchoalveolar lavage was done of the left lower lobe and sent for multiple specimens. There was no active bleeding. There was no obvious endobronchial lesions seen. Right sided bronchi revealed only minimal secretions. The patient tolerated the procedure very well. We will get a post bronchoscopy chest x-ray. I did discuss the above with the medical team and Dr. Du. Rosalio Blevins MD [place]
--- NOTE | 2018-08-03 15:09 | PN ---
DATE: 08/03/2018 REASON FOR CONSULTATION AND FOLLOWUP: Postop status post right hemicolectomy, history of AFib, collapse of the left lung. SUBJECTIVE: Seen the patient in the morning. Event noted since the patient saw yesterday from Telemetry. The patient transferred. Yesterday, chest x-ray shows complete collapse of the left side of the lung. A stat CAT scan was done. It was also consistent with collapse of the left lung, a small pleural effusion. This morning the patient had a large mucus plug, was aspirated, feels better. Repeat chest x-ray pending. The patient denies any chest pain, shortness of breath or any palpitation. Feels a lot better. PHYSICAL EXAMINATION: VITAL SIGNS: Temperature afebrile, heart rate 70, blood pressure 130/80. HEENT: PERRLA. Extraocular muscles intact. NECK: Supple. No carotid bruits or thyromegaly. CHEST: Decreased air entry at the base, but air entry adequate in the left upper lobe. HEART: S1 and S2 regular. ABDOMEN: Soft. EXTREMITIES: Clubbing and cyanosis negative. LABORATORY DATA: Blood workup as follows; WBC 5.8, hemoglobin 11.8, hematocrit 37.3, platelet count 78. Chemistry shows sodium 137, potassium 5.8, chloride 101, carbon dioxide 27, anion gap of 14, BUN 60, creatinine 1.8. IMPRESSION: An 82-year-old male with past medical history significant for chronic atrial fibrillation, history of abdominal aortic aneurysm endovascular stent, history of colon cancer status post colonic resection and colostomy very recent abdominal surgery done, postop course was complicated by collapse of the left lung, history of colostomy since 2001, history of a baseline chronic atrial fibrillation. Yesterday, the patient moved to ICU, this morning the patient had aspirated a large mucus plug, feels better. PLAN: To probably do the re-bronchoscopy and possible intubation. The repeat chest x-ray will be done after the bronchoscopy. We will also repeat echo to access LV function. The patient was on Eliquis before surgery, which is on hold because of lung and if need the patient bronchoscopy. Once the patient's respiratory status improves, we will resume back the anticoagulation. Discussed with Dr. Du. Discuss with . red hat engineer in ICU. We will closely monitor. Gladis Greenfield MD [facility] # [id number]
--- NOTE | 2018-08-03 15:29 | CON ---
DATE: 08/01/2018 NEPHROLOGY CONSULTATION HISTORY OF PRESENT ILLNESS: I am requested to see this 82-year-old gentleman status post surgery under the direction of Dr. Rocael Du where he underwent a right hemicolectomy for concerns of malignant cecal mass and anemia. Postoperatively, the patient is noted to have azotemia with an admission BUN of 24 and creatinine of 1.0 and a current BUN of 46 and creatinine of 2.1. I have reviewed this patient's previous radiographic reports, and he was noted on abdominal pelvic CT dated 07/20/2018, which was prior to this admission, to have large bilateral nonobstructing renal stones with no evidence of hydronephrosis. The patient underwent a right hemicolectomy and partial herniorrhaphy on 07/30/2018 under the direction of Dr. Rocael Du. At present, he is on the cardiac unit, wearing nasal O2 and requesting food to eat. REVIEW OF SYSTEMS: CONSTITUTIONAL REVIEW: There were no reports of fever or chills. HEAD REVIEW: No headache or seizure. EYE REVIEW: No change in visual acuity. EAR REVIEW: No hearing loss. THROAT REVIEW: No swallowing difficulty. NECK REVIEW: No stiffness. CARDIAC REVIEW: He denied chest pain or palpitation. PULMONARY: No cough. No hemoptysis. GI: As per HPI. : No dysuria. No knowledge of renal failure in his past. VASCULAR: No claudication. PSYCHOLOGICAL: Anxious. NEUROLOGICAL: No knowledge of stroke. ENDOCRINOLOGICAL: Denied diabetes. HOME MEDICATIONS: Included Cardizem CD 360 mg p.o. daily, Dilantin 100 mg p.o. t.i.d., Protonix 40 mg p.o. daily, Toprol-XL 25 mg b.i.d., Xopenex inhalational therapy every six and Lipitor 10 mg p.o. at dinner time. FAMILY HISTORY: Noncontributory. SOCIAL HISTORY: He is a current nondrinker, nonsmoker, non-IV drug misuser. PHYSICAL EXAMINATION: GENERAL: At the time of my interview, he was in a normal sinus rhythm on the cardiac rn. He was pleasant, cooperative and asking for something to eat. He was examined in the presence of nurse, Dyan Turner, registered nurse. VITAL SIGNS: Temperature 98.7, respirations 19, pulse 95, blood pressure 121/76. HEENT: Head: Normocephalic, atraumatic. Eyes: No icterus. Ears: Clear. Throat: Noninjected. NECK: Supple. HEART: Regular S1, S2. No pathological rubs, murmurs or gallops. LUNGS: Clear. ABDOMEN: Soft. Colostomy functioning. VASCULAR: Legs warm to touch. No CVA tenderness. EXTREMITIES: No edema. SKIN: Without rash. NEUROLOGICAL: Deconditioned. PSYCHOLOGICAL: Alert and oriented. LABORATORY DATA: Sodium 138, potassium 5.1, chloride 100. Bicarb 23, BUN 46, creatinine 2.1, random blood sugar 160, calcium 9, phosphorus 7.4, magnesium 2.5. Bilirubin 1, AST 497, ALT 407, alk phos 76. BNP 33,700. White count 8600, hemoglobin 11, hematocrit 34.8, platelets 82,000. There was no urinalysis on his chart. Dilantin level 9 with therapeutic being 10 to 20. IMPRESSION: An 82-year-old male, status post right hemicolectomy for cecal mass, pathology pending with history of chronic hypertension, seizure syndrome, peptic ulcer disease with gastroesophageal reflux disease, iron-deficiency anemia, chronic hypertension, stable atherosclerotic heart disease, chronic obstructive pulmonary disease and hyperlipidemia, now with acute renal failure postoperatively, rule out acute tubular necrosis. PLAN: My plans are to obtain a stat urinalysis, and I have requested a renal ultrasound for completeness sake. I have asked nurse Dyan Turner to contact Dr. Du to see if this patient's diet can be advanced. He will continue with subcu Lovenox, IV Protonix, and I will monitor his medications and recommend dose reductions for his renal insufficiency. Based on his clinical progress, decision will be made regarding possible gentle IV fluids, and the patient will be scheduled for repeat laboratories in the a.m. All of the above was discussed with nurse Turner and the patient at bedside. All questions were answered. Sara Ramirez MD [facility] # [id number] MTDJevon
--- NOTE | 2018-08-03 20:49 | PN ---
DATE: 08/03/2018 SUBJECTIVE: Patient is 82 years old. Last night's events noted. Patient started to desaturate. He had respiratory distress, so he was transferred to ICU, where the patient was found to have left hemithorax scant complete white out, so he underwent bronchoscopy by Dr. Blevins. After that his respiratory status was unstable, so he was intubated and admitted in ICU. PHYSICAL EXAMINATION: GENERAL: Patient is sedated. Initially, he extubated himself, then he was sedated and re-intubated. When I examined the patient, he was sedated, not responding to painful or verbal stimuli. VITAL SIGNS: He is afebrile, pulse 85, respiration 16, blood pressure 132/66. LUNGS: Decreased breath sound at left side. HEART: S1, S2 audible, tachycardic. ABDOMEN: Soft, nontender. Colostomy in place. RUSSELL tube draining blood-tinged fluid. LABORATORY EXAMINATION: WBC 5.8, hemoglobin 11.8, hematocrit 37.3, platelets of 78. Chemistries: Sodium 137, potassium 5.2, chloride 101, CO2 27, BUN 67, creatinine 1.8, blood sugar of 206. ASSESSMENT: 1. Status post right hemicolectomy. 2. Respiratory failure, currently on ventilator. 3. Seizure disorder. 4. Status post aortic aneurysmal repair. 5. History of hypertension. PLAN: Currently the patient is on IV fluids. He is on deep vein thrombosis prophylaxis. He is on meropenem. He is getting nebulizer treatment. He is on IV steroid. We will follow up his electrolytes, CBC, CMP in a.m. Tri Fleming MD DT: 08/03/2018 20:37:38
--- NOTE | 2018-08-03 21:46 | CARD ---
APPROVED REPORT Date of service: 08/03/2018 EXAM: Two-dimensional and M-mode echocardiogram with Doppler and color Doppler. INDICATION Dyspnea LV Function:SystolicDiastolic 2D DIMENSIONS Left Atrium (2D)6.3 (1.6-4.0cm)IVSd2.1 (0.7-1.1cm) LVDd4.6 (3.9-5.9cm)PWd1.8 (0.7-1.1cm) LVDs2.9 (2.5-4.0cm)FS (%) 37.5 % LVEF (%)67.6 (>50%) M-Mode DIMENSIONS Aortic Root3.20 (2.2-3.7cm)Aortic Cusp Exc.1.60 (1.5-2.0cm) Aortic Valve AoV Peak Hkuezktw818.0cm/Nikita Peak GR.11mmHg Mitral Valve E/A ratio0.0 TDI E/Lateral E'0.0E/Medial E'0.0 Tricuspid Valve TR Peak [id number]/sRAP [id number] Peak Gr.37mmHg [id number] LEFT VENTRICLE The left ventricle is normal size. There is moderate concentric left ventricular hypertrophy. The left ventricular function is normal. EF-60-65% ( Afib) There is normal LV segmental wall motion. A fib No left ventricle thrombus noted on this study. There is no ventricular septal defect visualized. There is no left ventricular aneurysm. There is no mass noted in the left ventricle. RIGHT VENTRICLE The right ventricle is mildly dilated. There is normal right ventricular wall thickness. Systolic function is mildly reduced. ATRIA The left atrium is severely dilated. The right atrium is borderline dilated. The interatrial septum is intact with no evidence for an atrial septal defect. AORTIC VALVE The aortic valve is thickened but opens well. There is trace aortic regurgitation. There is no aortic valvular stenosis. There is no aortic valvular vegetation. MITRAL VALVE The mitral valve is thickened but opens well. Mitral regurgitation is moderate. There is no mitral valve stenosis. Redundant elongated chordae are noted. TRICUSPID VALVE The tricuspid valve leaflets are thickened , but open well. There is moderate tricuspid regurgitation.RVSP-47 mmof Hg. There is no tricuspid valve stenosis. There is no tricuspid valve prolapse or vegetation. PULMONIC VALVE The pulmonary valve is normal in structure. There is mild to moderate pulmonic valvular regurgitation. There is no pulmonic valvular stenosis. GREAT VESSELS The aortic root is normal in size. The ascending aorta is normal in size. The pulmonary artery is normal. The IVC is dilated. PERICARDIAL EFFUSION There is no pleural effusion. There is no pericardial effusion. <Conclusion> The left ventricle is normal size. There is moderate concentric left ventricular hypertrophy. The left ventricular function is normal. EF-60-65% ( Afib) There is trace aortic regurgitation. There is no aortic valvular stenosis. Mitral regurgitation is moderate. Redundant elongated chordae are noted. There is moderate tricuspid regurgitation.RVSP-47 mmof Hg. There is mild to moderate pulmonic valvular regurgitation. The IVC is dilated. There is no pericardial effusion. No vegetation or thrombus noted.
[2018-08-04] MEDS: Levalbuterol 1.25 MG/3 ML Inhal Soln UD IH SCH ×4 (02:16→20:03)
[2018-08-04 06:20] LABS: ARTERIAL BLOOD GAS HCO3 27.3 mmol/L (21-28); ARTERIAL BLOOD GAS HEMOGLOBIN 10.9 g/dL (11.7-17.4); ARTERIAL BLOOD GAS O2 CAPACITY 15.1 mL/dl (16-24); ARTERIAL BLOOD GAS O2 CONTENT 15.1 ML/dl (15-23); ARTERIAL BLOOD GAS PCO2 44 mm/Hg (35-45); ARTERIAL BLOOD GAS TCO2 28.7 mmol.L (22-28)
[2018-08-04] MEDS: Dextrose 5%/0.45% NS 1,000 ML IV SCH (06:34)
[2018-08-04 06:35] LABS: GRAN # 2.95 (1.4-6.5); GRAN % 91.9 % (50.0-68.0); HEMOGLOBIN 10.8 g/dL (14.0-18.0); LYMPH # 0.2 (1.2-3.4); LYMPH % 5.9 % (22.0-35.0); MEAN CELL VOLUME 95.1 fl (80.0-105.0); MEAN CORPUSCULAR HEMOGLOBIN 29.1 pg (25.0-35.0); MEAN CORPUSCULAR HGB CONC 30.6 g/dl (31.0-37.0); MEAN PLATELET VOLUME 9.9 fl (7.0-11.0); MONO # 0.1 (0.1-0.6); MONO % 2.2 % (1.0-6.0); RBC 3.71 10^6/uL (3.5-6.1); RED CELL DISTRIBUTION WIDTH 14.9 % (11.5-14.5); WHITE BLOOD COUNT 3.2 10^3/ul (4.5-11.0)
[2018-08-04 06:53] LABS: ALB/GLOB RATIO 1.2 (1.1-1.8); ALBUMIN 2.6 g/dL (3.0-4.8); CALCIUM 8.2 mg/dL (8.4-10.5)
--- NOTE | 2018-08-04 07:43 | PN ---
DATE: 08/04/2018 SUBJECTIVE: The patient is in bed in no acute disease. No changes. The patient was noted to have extubated himself yesterday, is now reintubated again. Remains on a vent. No diarrhea reported. No events last night. PHYSICAL EXAMINATION: VITAL SIGNS: On exam, temperature is 98, blood pressure is 120/60, respiratory rate of 18. HEENT: Examination of HEENT is unremarkable. NECK: Supple. LUNGS: Have decreased breath sounds. HEART: Normal S1, S2. ABDOMEN: Soft. LABORATORY EXAMINATION: Reveals a white count is 3.2, hemoglobin of 10, platelets of 54. Urinalysis is noted. Microbiology reveals the blood cultures are no growth. MRSA is not detected. ASSESSMENT AND PLAN: An 82-year-old male with severe sepsis, left-sided healthcare-associated pneumonia, acute kidney injury, respiratory failure, intubated on a ventilator, on intermittent vancomycin and meropenem with all cultures negative. The naris methicillin-resistant Staphylococcus aureus screen is negative. The sputum culture is pending. The blood cultures are negative. We will follow closely with you. Case discussed with Dr. Blevins yesterday. We will perform a bronchoscopy on this patient yesterday. Jason Garvin MD
--- NOTE | 2018-08-04 07:51 | PN ---
DATE: 08/04/2018(640am-730am) PULMONARY NOTE SUBJECTIVE: The patient is currently on the ventilator. He is sedated. PHYSICAL EXAMINATION: VITAL SIGNS: Temperature is 98.9, the pulse is 88, respiratory rate 14/12, last blood pressure recorded 122/66. HEENT: Normocephalic, atraumatic. No JVD. CARDIOVASCULAR: Systolic ejection murmur at the lower left sternal border. Questionable S3 gallop. LUNGS: Significantly increased breath sounds - left lung. Less rhonchi. No wheezing. EXTREMITIES: Mild edema. No cyanosis. No clubbing. GI: Abdomen is postoperative. It is soft and nondistended. Bowel sounds are positive. SKIN: No acute rash. NEUROLOGIC: Limited at the present time. PERTINENT LABORATORY DATA: Chest x-ray was done this morning and reviewed. There appears to be complete resolution of the left lung atelectasis. There is mild pulmonary vascular congestion. There are no significant effusions. Arterial blood gas was done on PRVC 12, tidal volume 450, FIO2 of 50%. Results are: PH 7.40, pCO2 of 44, pO2 of 143. IMPRESSION: 1. Left lung atelectasis - resolved. 2. Chronic obstructive pulmonary disease. 3. Congestive heart failure. 4. Small bilateral pleural effusions. 5. Atrial fibrillation. 6. Status post right hemicolectomy. 7. Anemia, thrombocytopenia. PLAN: The patient remains in the ICU. He is currently on the ventilator. He is sedated. I did discuss the case with the night nurse at length. The night nurse stated that the patient had a very good night. I did review the chest x-ray from today. The chest x-ray is significantly improved - with complete resolution of the left lung atelectasis. There is mild pulmonary vascular congestion noted. I did perform a bronchoscopy on this patient yesterday. Results are pending. I have also reviewed the arterial blood gas. The arterial blood gas is also significantly improved - with a decrease in the alveolar-arterial gradient. The patient is for weaning trials this morning. On physical exam, there is certainly less bronchospasm noted. I will continue with the current nebulizer treatments and low-dose intravenous steroids for now. Given the above chest x-ray, along with the recent B-type natriuretic peptide level, I will also give a one-time dose of Lasix this morning. Cardiology input (Dr. Greenfield) is noted. Inputs by Infectious Disease and Surgery are also noted. Clinical status of the patient is significantly improved - compared to a few days ago. However, the future status/prognosis for this patient does remain guarded. I will discuss the above with the entire ICU team in the next few moments. I will also discuss the above with Dr. Du later this morning. Rosalio Blevins MD MTDJevon
--- NOTE | 2018-08-04 09:25 | CP.CCUPN ---
<Heather Adamson - Last Filed: 08/04/18 11:47> CCU Subjective - Physician Review Subjective (Free Text): CRITICAL CARE PROGRESS NOTE FOR DR. LUDMILA Adamson PGY1 Pt seen and examined morning at bedside. He is s/p bedside bronchoscopy with lavage yesterday. Thick mucous secretions were removed. Pt was extubated this am. Short discussion with pt before he was placed on BiPAP. He reported no pain or complaints. He was placed on BiPAP 09/16/40%. He is saturating well at 100%. Resting comfortably. CCU Objective - Vital Signs / Intake & Output Vital Signs (Last 4 hours): Vital Signs Pulse Resp BP Pulse Ox 08/04/18 08:58 94 H 08/04/18 07:34 126/75 08/04/18 07:17 12 100 Intake and Output (Last 8hrs): Intake & Output 08/03/18 08/04/18 08/04/18 22:59 06:59 14:59 Intake Total 1100 1040 Output Total 660 700 Balance 440 340 Intake: IV 1100 1040 Left Hand 1000 Right Wrist 1040 Oral 0 Output: Drainage 110 200 Right Abdomen 110 200 Urine 550 500 Straight 550 500 Other: # Bowel Movements 1 - Physical Exam Head: Positive for: Atraumatic, Normocephalic Pupils: Positive for: PERRL Extroacular Muscles: Positive for: EOMI Conjunctiva: Positive for: Normal Mouth: Positive for: Moist Mucous Membranes Pharnyx: Positive for: Normal Neck: Positive for: Normal Range of Motion Respiratory/Chest: Positive for: Clear to Auscultation, Good Air Exchange. Negative for: Respiratory Distress Cardiovascular: Positive for: Other (irregularly irregular rhythm) Abdomen: Positive for: Normal Bowel Sounds, Other (+colostomy). Negative for: Tenderness, Distention Genitourinary Male: Positive for: Prostate Tenderness Upper Extremity: Positive for: Normal Inspection Lower Extremity: Positive for: Normal Inspection. Negative for: Edema Neurological: Positive for: GCS=15, Speech Normal Skin: Positive for: Warm, Dry, Normal Color Psychiatric: Positive for: Alert, Oriented x 3, Normal Insight, Normal Concentration - Medications Active Medications: Active Medications Generic Name Dose Route Start Last Admin Trade Name Freq PRN Reason Stop Dose Admin Acetylcysteine 4 ml 08/04/18 13:00 Acetylcysteine 20% IH [id number] KD Dextrose 0 ml 08/01/18 23:07 Dextrose 50% Inj IV STAT PRN Hypoglycemia Protocol Protocol Diltiazem HCl 360 mg 07/31/18 10:00 08/03/18 10:15 Cardizem Cd PO Not Given DAILY KD Enoxaparin Sodium 30 mg 08/01/18 10:00 08/03/18 10:26 Lovenox SC 30 mg DAILY KD Administration Protocol Famotidine 20 mg 08/03/18 10:00 08/03/18 10:26 Pepcid IVP 20 mg DAILY KD Administration Meropenem 1 gm in 50 mls @ 100 mls/hr 08/01/18 22:00 08/03/18 21:51 Merrem Iv 1 Gm Premix IVPB 08/10/18 22:01 100 mls/hr Q12 KD Administration Protocol Dextrose 1,000 mls @ 0 mls/hr 08/01/18 23:07 Dextrose 5% In Water 1000 Ml IV .Q0M PRN Hypoglycemia Protocol Protocol Per Protocol Dextrose/Sodium Chloride 1,000 mls @ 70 mls/hr 08/03/18 08:30 08/04/18 06:34 Dextrose 5%/0.45% Ns 1000 Ml IV 08/05/18 10:00 70 mls/hr .[id number] KD Administration Levalbuterol HCl 1.25 mg 08/02/18 14:00 08/04/18 07:24 Xopenex IH 1.25 mg [id number] KD Administration Methylprednisolone 40 mg 08/03/18 10:00 08/03/18 21:53 Solu-Medrol IVP 40 mg Q12 KD Administration Metoprolol Succinate 25 mg 07/31/18 10:00 08/03/18 16:59 Toprol Xl PO Not Given BID KD Oxycodone HCl 5 mg 08/01/18 11:29 08/02/18 09:39 Oxycodone Immediate Release Tab PO 5 mg Q4H PRN Administration Pain, moderate (4-7) - Patient Studies Lab Studies: Microbiology Studies 08/01/18 21:40 Blood Culture - Preliminary Blood NO GROWTH AFTER 48 HOURS 08/01/18 22:07 Blood Culture - Preliminary Blood NO GROWTH AFTER 48 HOURS 08/02/18 16:20 MRSA Culture (Admit) - Final Naris MRSA NOT DETECTED 08/03/18 08:06 Gram Stain - Final Trachasp Lab Studies 08/04/18 08/04/18 08/04/18 Range/Units 06:15 06:15 06:10 WBC 3.2 L D (4.5-11.0) 10^3/ul RBC 3.71 (3.5-6.1) 10^6/uL Hgb 10.8 L (14.0-18.0) g/dL Hct 35.3 L (42.0-52.0) % MCV 95.1 (80.0-105.0) fl MCH 29.1 (25.0-35.0) pg MCHC 30.6 L (31.0-37.0) g/dl RDW 14.9 H (11.5-14.5) % Plt Count 54 L (120.0-450.0) 10^3/uL MPV 9.9 (7.0-11.0) fl Gran % 91.9 H (50.0-68.0) % Lymph % (Auto) 5.9 L (22.0-35.0) % Atlantic % (Auto) 2.2 (1.0-6.0) % Eos % (Auto) 0.0 L (1.5-5.0) % Baso % (Auto) 0.0 (0.0-3.0) % Gran # 2.95 (1.4-6.5) Lymph # (Auto) 0.2 L (1.2-3.4) Atlantic # (Auto) 0.1 (0.1-0.6) Eos # (Auto) 0.0 (0.0-0.7) Baso # (Auto) 0.00 (0.0-2.0) K/mm3 pCO2 44 (35-45) mm/Hg pO2 143.0 H (80-100) mm/Hg HCO3 27.3 (21-28) mmol/L ABG pH 7.40 (7.35-7.45) ABG Total CO2 28.7 H (22-28) mmol.L ABG O2 Saturation 100.0 H (95-98) % ABG O2 Content 15.1 (15-23) ML/dl ABG Base Excess 2.1 (-2.0-3.0) mmol/L ABG Hemoglobin 10.9 L (11.7-17.4) g/dL ABG Carboxyhemoglobin 2.3 H (0.5-1.5) % POC ABG HHb (Measured) 0 (0-5) % ABG Methemoglobin 0.7 (0.0-3.0) % ABG O2 Capacity 15.1 L (16-24) mL/dl ABG Potassium (3.6-5.2) mmol/L Hgb O2 Saturation 97.0 (95.0-98.0) % Sodium 138 (132-148) mmol/L Chloride 104 (98-107) mmol/L Glucose (75-110) mg/dl Lactate (0.7-2.1) mmol/L Mechanical Rate FiO2 50.0 % Tidal Volume PEEP Potassium 4.6 (3.6-5.0) mmol/L Carbon Dioxide 30 (21-33) mmol/L Anion Gap 9 L (10-20) BUN 63 H (7-21) mg/dL Creatinine 1.4 (0.8-1.5) mg/dl Est GFR ( Amer) 59 Est GFR (Non-Af Amer) 49 POC Glucose (mg/dL) (65-110) mg/dL Random Glucose 167 H (70-110) mg/dL Calcium 8.2 L (8.4-10.5) mg/dL Phosphorus 4.9 H (2.5-4.5) mg/dL Magnesium 2.6 H (1.7-2.2) mg/dL Total Bilirubin 0.8 (0.2-1.3) mg/dL AST 172 H D (17-59) U/L ALT 392 H (7-56) U/L Alkaline Phosphatase 55 (38-126) U/L Total Protein 4.8 L (5.8-8.3) g/dL Albumin 2.6 L (3.0-4.8) g/dL Globulin 2.2 gm/dL Albumin/Globulin Ratio 1.2 (1.1-1.8) Arterial Blood Potassium (3.6-5.2) mmol/L 08/03/18 08/03/18 08/03/18 Range/Units 16:15 11:01 10:00 WBC (4.5-11.0) 10^3/ul RBC (3.5-6.1) 10^6/uL Hgb (14.0-18.0) g/dL Hct (42.0-52.0) % MCV (80.0-105.0) fl MCH (25.0-35.0) pg MCHC (31.0-37.0) g/dl RDW (11.5-14.5) % Plt Count (120.0-450.0) 10^3/uL MPV (7.0-11.0) fl Gran % (50.0-68.0) % Lymph % (Auto) (22.0-35.0) % Atlantic % (Auto) (1.0-6.0) % Eos % (Auto) (1.5-5.0) % Baso % (Auto) (0.0-3.0) % Gran # (1.4-6.5) Lymph # (Auto) (1.2-3.4) Atlantic # (Auto) (0.1-0.6) Eos # (Auto) (0.0-0.7) Baso # (Auto) (0.0-2.0) K/mm3 pCO2 38 (35-45) mm/Hg pO2 77.0 L (80-100) mm/Hg HCO3 26.4 (21-28) mmol/L ABG pH 7.45 (7.35-7.45) ABG Total CO2 27.6 (22-28) mmol.L ABG O2 Saturation 97.2 (95-98) % ABG O2 Content (15-23) ML/dl ABG Base Excess 2.4 (-2.0-3.0) mmol/L ABG Hemoglobin (11.7-17.4) g/dL ABG Carboxyhemoglobin (0.5-1.5) % POC ABG HHb (Measured) (0-5) % ABG Methemoglobin (0.0-3.0) % ABG O2 Capacity (16-24) mL/dl ABG Potassium 4.9 (3.6-5.2) mmol/L Hgb O2 Saturation (95.0-98.0) % Sodium 136.0 (132-148) mmol/L Chloride 104.0 (98-107) mmol/L Glucose 165 H (75-110) mg/dl Lactate 1.2 (0.7-2.1) mmol/L Mechanical Rate 12 FiO2 50.0 % Tidal Volume 450 PEEP 5 Potassium (3.6-5.0) mmol/L Carbon Dioxide (21-33) mmol/L Anion Gap (10-20) BUN (7-21) mg/dL Creatinine (0.8-1.5) mg/dl Est GFR ( Amer) Est GFR (Non-Af Amer) POC Glucose (mg/dL) 206 H 249 H (65-110) mg/dL Random Glucose (70-110) mg/dL Calcium (8.4-10.5) mg/dL Phosphorus (2.5-4.5) mg/dL Magnesium (1.7-2.2) mg/dL Total Bilirubin (0.2-1.3) mg/dL AST (17-59) U/L ALT (7-56) U/L Alkaline Phosphatase (38-126) U/L Total Protein (5.8-8.3) g/dL Albumin (3.0-4.8) g/dL Globulin gm/dL Albumin/Globulin Ratio (1.1-1.8) Arterial Blood Potassium 4.9 (3.6-5.2) mmol/L 08/03/18 Range/Units 07:39 WBC (4.5-11.0) 10^3/ul RBC (3.5-6.1) 10^6/uL Hgb (14.0-18.0) g/dL Hct (42.0-52.0) % MCV (80.0-105.0) fl MCH (25.0-35.0) pg MCHC (31.0-37.0) g/dl RDW (11.5-14.5) % Plt Count (120.0-450.0) 10^3/uL MPV (7.0-11.0) fl Gran % (50.0-68.0) % Lymph % (Auto) (22.0-35.0) % Atlantic % (Auto) (1.0-6.0) % Eos % (Auto) (1.5-5.0) % Baso % (Auto) (0.0-3.0) % Gran # (1.4-6.5) Lymph # (Auto) (1.2-3.4) Atlantic # (Auto) (0.1-0.6) Eos # (Auto) (0.0-0.7) Baso # (Auto) (0.0-2.0) K/mm3 pCO2 (35-45) mm/Hg pO2 (80-100) mm/Hg HCO3 (21-28) mmol/L ABG pH (7.35-7.45) ABG Total CO2 (22-28) mmol.L ABG O2 Saturation (95-98) % ABG O2 Content (15-23) ML/dl ABG Base Excess (-2.0-3.0) mmol/L ABG Hemoglobin (11.7-17.4) g/dL ABG Carboxyhemoglobin (0.5-1.5) % POC ABG HHb (Measured) (0-5) % ABG Methemoglobin (0.0-3.0) % ABG O2 Capacity (16-24) mL/dl ABG Potassium (3.6-5.2) mmol/L Hgb O2 Saturation (95.0-98.0) % Sodium (132-148) mmol/L Chloride (98-107) mmol/L Glucose (75-110) mg/dl Lactate (0.7-2.1) mmol/L Mechanical Rate FiO2 % Tidal Volume PEEP Potassium (3.6-5.0) mmol/L Carbon Dioxide (21-33) mmol/L Anion Gap (10-20) BUN (7-21) mg/dL Creatinine (0.8-1.5) mg/dl Est GFR ( Amer) Est GFR (Non-Af Amer) POC Glucose (mg/dL) 210 H (65-110) mg/dL Random Glucose (70-110) mg/dL Calcium (8.4-10.5) mg/dL Phosphorus (2.5-4.5) mg/dL Magnesium (1.7-2.2) mg/dL Total Bilirubin (0.2-1.3) mg/dL AST (17-59) U/L ALT (7-56) U/L Alkaline Phosphatase (38-126) U/L Total Protein (5.8-8.3) g/dL Albumin (3.0-4.8) g/dL Globulin gm/dL Albumin/Globulin Ratio (1.1-1.8) Arterial Blood Potassium (3.6-5.2) mmol/L Laboratory Results - last 24 hr 08/03/18 08/03/18 08/03/18 07:39 10:00 11:01 WBC RBC Hgb Hct MCV MCH MCHC RDW Plt Count MPV Gran % Lymph % (Auto) Atlantic % (Auto) Eos % (Auto) Baso % (Auto) Gran # Lymph # (Auto) Atlantic # (Auto) Eos # (Auto) Baso # (Auto) pCO2 38 pO2 77.0 L HCO3 26.4 ABG pH 7.45 ABG Total CO2 27.6 ABG O2 Saturation 97.2 ABG O2 Content ABG Base Excess 2.4 ABG Hemoglobin ABG Carboxyhemoglobin POC ABG HHb (Measured) ABG Methemoglobin ABG O2 Capacity ABG Potassium 4.9 Hgb O2 Saturation Sodium 136.0 Chloride 104.0 Glucose 165 H Lactate 1.2 Mechanical Rate 12 FiO2 50.0 Tidal Volume 450 PEEP 5 Potassium Carbon Dioxide Anion Gap BUN Creatinine Est GFR ( Amer) Est GFR (Non-Af Amer) POC Glucose (mg/dL) 210 H 249 H Random Glucose Calcium Phosphorus Magnesium Total Bilirubin AST ALT Alkaline Phosphatase Total Protein Albumin Globulin Albumin/Globulin Ratio Arterial Blood Potassium 4.9 08/03/18 08/04/18 08/04/18 16:15 06:10 06:15 WBC 3.2 L D RBC 3.71 Hgb 10.8 L Hct 35.3 L MCV 95.1 MCH 29.1 MCHC 30.6 L RDW 14.9 H Plt Count 54 L MPV 9.9 Gran % 91.9 H Lymph % (Auto) 5.9 L Atlantic % (Auto) 2.2 Eos % (Auto) 0.0 L Baso % (Auto) 0.0 Gran # 2.95 Lymph # (Auto) 0.2 L Atlantic # (Auto) 0.1 Eos # (Auto) 0.0 Baso # (Auto) 0.00 pCO2 44 pO2 143.0 H HCO3 27.3 ABG pH 7.40 ABG Total CO2 28.7 H ABG O2 Saturation 100.0 H ABG O2 Content 15.1 ABG Base Excess 2.1 ABG Hemoglobin 10.9 L ABG Carboxyhemoglobin 2.3 H POC ABG HHb (Measured) 0 ABG Methemoglobin 0.7 ABG O2 Capacity 15.1 L ABG Potassium Hgb O2 Saturation 97.0 Sodium Chloride Glucose Lactate Mechanical Rate FiO2 50.0 Tidal Volume PEEP Potassium Carbon Dioxide Anion Gap BUN Creatinine Est GFR ( Amer) Est GFR (Non-Af Amer) POC Glucose (mg/dL) 206 H Random Glucose Calcium Phosphorus Magnesium Total Bilirubin AST ALT Alkaline Phosphatase Total Protein Albumin Globulin Albumin/Globulin Ratio Arterial Blood Potassium 08/04/18 06:15 WBC RBC Hgb Hct MCV MCH MCHC RDW Plt Count MPV Gran % Lymph % (Auto) Atlantic % (Auto) Eos % (Auto) Baso % (Auto) Gran # Lymph # (Auto) Atlantic # (Auto) Eos # (Auto) Baso # (Auto) pCO2 pO2 HCO3 ABG pH ABG Total CO2 ABG O2 Saturation ABG O2 Content ABG Base Excess ABG Hemoglobin ABG Carboxyhemoglobin POC ABG HHb (Measured) ABG Methemoglobin ABG O2 Capacity ABG Potassium Hgb O2 Saturation Sodium 138 Chloride 104 Glucose Lactate Mechanical Rate FiO2 Tidal Volume PEEP Potassium 4.6 Carbon Dioxide 30 Anion Gap 9 L BUN 63 H Creatinine 1.4 Est GFR ( Amer) 59 Est GFR (Non-Af Amer) 49 POC Glucose (mg/dL) Random Glucose 167 H Calcium 8.2 L Phosphorus 4.9 H Magnesium 2.6 H Total Bilirubin 0.8 AST 172 H D ALT 392 H Alkaline Phosphatase 55 Total Protein 4.8 L Albumin 2.6 L Globulin 2.2 Albumin/Globulin Ratio 1.2 Arterial Blood Potassium Fingerstick Blood Sugar Results: 191 Review of Systems - Review of Systems Review of Systems: per [facility] Critical Care Progress Note - Nutrition Nutrition: Nutrition Category Date Time Status Keep patient NPO past midnight [NPO Diet] [DIET] Diets 08/03/18 Breakfast Ordered Assessment/Plan - Assessment and Plan (Free Text) Assessment: 82 y/o M with PMHx of COPD, extensive smoking history, Afib on eliquis, chronic thrombocytopenia, AAA s/p aortic stent, seizure disorder, rectal CA s/p total colectomy, zenker diverticulum, HTN, HLD admitted to the hospital s/p polyp removal with parastomal hernia repair. Post-operatively, he was found to have a collapse L lung on xray, likely secondary to mucous plugging. Pt is s/p bedside bronchoscopy with lavage on 08/03 with removal of thick mucous secretions. He was intubated for bronchoscopy, and subsequently extubated on 08/04 and placed on BiPAP. Currently being closely monitored in ICU Plan: Neuro: Weened off of sedation AxO, following commands, opens eyes spontaneously Currently on BiPAP Monitor neuro status Cardio Afib on eliquis HR @90-100s cardizem 360 daily metoprolol 25 bid Blood thinner on hold, Hgb was at 1.8 on 07/31 Monitor H/H Pulmonary Sedated and intubated for bronchoscopy 08/03 Extubated this am On BiPAP 14//12/40% Weening protocol Xopenex q6h Acetylcysteine 4ml IH q6h Solu-medrol 40mg IVP daily Saturating at 100%. Aggressive chest PT f/u sputum cultures f/u xray post bronchoscopy shows improved aeration, with possible L pleural effusion GI S/p polyp removal with parastomal hernia repair. Colostomy bag in place Hx of rectal ca s/p total colectomy /Renal JOHNNY: BUN improved from yesterday. Cr wnl today d5/1/2NS @ 75cc/hour Heme H/H stable Tranfuse if Hgb <8 Was previously weight-based lovenox in TCU ID Meropenem f/u sputum/urine/blood DVT/GI PPx: Lovenox/Pepcid Case seen, examined and discussed with attending physician, Dr. Keys <LudmilaBilal - Last Filed: 08/04/18 15:10> CCU Objective - Vital Signs / Intake & Output Intake and Output (Last 8hrs): Intake & Output 08/04/18 08/04/18 08/04/18 06:59 14:59 22:59 Intake Total 1040 Output Total 700 Balance 340 Intake: IV 1040 Right Wrist 1040 Output: Drainage 200 Right Abdomen 200 Urine 500 Straight 500 - Medications Active Medications: Active Medications Generic Name Dose Route Start Last Admin Trade Name Freq PRN Reason Stop Dose Admin Acetylcysteine 4 ml 08/04/18 13:00 08/04/18 13:09 Acetylcysteine 20% IH 4 ml [id number] KD Administration Dextrose 0 ml 08/01/18 23:07 Dextrose 50% Inj IV STAT PRN Hypoglycemia Protocol Protocol Diltiazem HCl 360 mg 07/31/18 10:00 08/04/18 10:52 Cardizem Cd PO 360 mg DAILY KD Administration Enoxaparin Sodium 30 mg 08/01/18 10:00 08/04/18 10:49 Lovenox SC 30 mg DAILY KD Administration Protocol Famotidine 20 mg 08/05/18 22:00 Pepcid PO HS KD Meropenem 1 gm in 50 mls @ 100 mls/hr 08/01/18 22:00 08/04/18 10:48 Merrem Iv 1 Gm Premix IVPB 08/10/18 22:01 100 mls/hr Q12 KD Administration Protocol Dextrose 1,000 mls @ 0 mls/hr 08/01/18 23:07 Dextrose 5% In Water 1000 Ml IV .Q0M PRN Hypoglycemia Protocol Protocol Per Protocol Sodium Chloride 1,000 mls @ 70 mls/hr 08/04/18 10:45 Sodium Chloride 0.9% IV 08/07/18 10:00 .[id number] [facility] Insulin Human Lispro 0 units 08/04/18 11:30 08/04/18 11:40 Humalog Low SC Not Given ACHS [facility] Protocol Levalbuterol HCl 1.25 mg 08/02/18 14:00 08/04/18 13:08 Xopenex IH 1.25 mg [id number] [facility] Administration Methylprednisolone 40 mg 08/05/18 10:00 Solu-Medrol IVP DAILY [facility] Metoprolol Succinate 25 mg 07/31/18 10:00 08/04/18 10:51 Toprol Xl PO 25 mg BID KD Administration Oxycodone HCl 5 mg 08/01/18 11:29 08/02/18 09:39 Oxycodone Immediate Release Tab PO 5 mg Q4H PRN Administration Pain, moderate (4-7) Phenytoin Sodium 100 mg 08/04/18 14:00 Dilantin PO TID [facility] - Patient Studies Lab Studies: Microbiology Studies 08/02/18 22:07 MRSA Culture (Admit) - Final Naris MRSA NOT DETECTED 08/01/18 21:40 Blood Culture - Preliminary Blood NO GROWTH AFTER 48 HOURS 08/01/18 22:07 Blood Culture - Preliminary Blood NO GROWTH AFTER 48 HOURS 08/02/18 16:20 MRSA Culture (Admit) - Final Naris MRSA NOT DETECTED 08/03/18 08:06 Gram Stain - Final Trachasp Lab Studies 08/04/18 08/04/18 08/04/18 Range/Units 06:15 06:15 06:10 WBC 3.2 L D (4.5-11.0) 10^3/ul RBC 3.71 (3.5-6.1) 10^6/uL Hgb 10.8 L (14.0-18.0) g/dL Hct 35.3 L (42.0-52.0) % MCV 95.1 (80.0-105.0) fl MCH 29.1 (25.0-35.0) pg MCHC 30.6 L (31.0-37.0) g/dl RDW 14.9 H (11.5-14.5) % Plt Count 54 L (120.0-450.0) 10^3/uL MPV 9.9 (7.0-11.0) fl Gran % 91.9 H (50.0-68.0) % Lymph % (Auto) 5.9 L (22.0-35.0) % Atlantic % (Auto) 2.2 (1.0-6.0) % Eos % (Auto) 0.0 L (1.5-5.0) % Baso % (Auto) 0.0 (0.0-3.0) % Gran # 2.95 (1.4-6.5) Lymph # (Auto) 0.2 L (1.2-3.4) Atlantic # (Auto) 0.1 (0.1-0.6) Eos # (Auto) 0.0 (0.0-0.7) Baso # (Auto) 0.00 (0.0-2.0) K/mm3 pCO2 44 (35-45) mm/Hg pO2 143.0 H (80-100) mm/Hg HCO3 27.3 (21-28) mmol/L ABG pH 7.40 (7.35-7.45) ABG Total CO2 28.7 H (22-28) mmol.L ABG O2 Saturation 100.0 H (95-98) % ABG O2 Content 15.1 (15-23) ML/dl ABG Base Excess 2.1 (-2.0-3.0) mmol/L ABG Hemoglobin 10.9 L (11.7-17.4) g/dL ABG Carboxyhemoglobin 2.3 H (0.5-1.5) % POC ABG HHb (Measured) 0 (0-5) % ABG Methemoglobin 0.7 (0.0-3.0) % ABG O2 Capacity 15.1 L (16-24) mL/dl Hgb O2 Saturation 97.0 (95.0-98.0) % FiO2 50.0 % Sodium 138 (132-148) mmol/L Potassium 4.6 (3.6-5.0) mmol/L Chloride 104 (98-107) mmol/L Carbon Dioxide 30 (21-33) mmol/L Anion Gap 9 L (10-20) BUN 63 H (7-21) mg/dL Creatinine 1.4 (0.8-1.5) mg/dl Est GFR ( Amer) 59 Est GFR (Non-Af Amer) 49 POC Glucose (mg/dL) (65-110) mg/dL Random Glucose 167 H (70-110) mg/dL Calcium 8.2 L (8.4-10.5) mg/dL Phosphorus 4.9 H (2.5-4.5) mg/dL Magnesium 2.6 H (1.7-2.2) mg/dL Total Bilirubin 0.8 (0.2-1.3) mg/dL AST 172 H D (17-59) U/L ALT 392 H (7-56) U/L Alkaline Phosphatase 55 (38-126) U/L Total Protein 4.8 L (5.8-8.3) g/dL Albumin 2.6 L (3.0-4.8) g/dL Globulin 2.2 gm/dL Albumin/Globulin Ratio 1.2 (1.1-1.8) 08/03/18 08/03/18 08/03/18 Range/Units 22:52 16:15 11:01 WBC (4.5-11.0) 10^3/ul RBC (3.5-6.1) 10^6/uL Hgb (14.0-18.0) g/dL Hct (42.0-52.0) % MCV (80.0-105.0) fl MCH (25.0-35.0) pg MCHC (31.0-37.0) g/dl RDW (11.5-14.5) % Plt Count (120.0-450.0) 10^3/uL MPV (7.0-11.0) fl Gran % (50.0-68.0) % Lymph % (Auto) (22.0-35.0) % Atlantic % (Auto) (1.0-6.0) % Eos % (Auto) (1.5-5.0) % Baso % (Auto) (0.0-3.0) % Gran # (1.4-6.5) Lymph # (Auto) (1.2-3.4) Atlantic # (Auto) (0.1-0.6) Eos # (Auto) (0.0-0.7) Baso # (Auto) (0.0-2.0) K/mm3 pCO2 (35-45) mm/Hg pO2 (80-100) mm/Hg HCO3 (21-28) mmol/L ABG pH (7.35-7.45) ABG Total CO2 (22-28) mmol.L ABG O2 Saturation (95-98) % ABG O2 Content (15-23) ML/dl ABG Base Excess (-2.0-3.0) mmol/L ABG Hemoglobin (11.7-17.4) g/dL ABG Carboxyhemoglobin (0.5-1.5) % POC ABG HHb (Measured) (0-5) % ABG Methemoglobin (0.0-3.0) % ABG O2 Capacity (16-24) mL/dl Hgb O2 Saturation (95.0-98.0) % FiO2 % Sodium (132-148) mmol/L Potassium (3.6-5.0) mmol/L Chloride (98-107) mmol/L Carbon Dioxide (21-33) mmol/L Anion Gap (10-20) BUN (7-21) mg/dL Creatinine (0.8-1.5) mg/dl Est GFR ( Amer) Est GFR (Non-Af Amer) POC Glucose (mg/dL) 191 H 206 H 249 H (65-110) mg/dL Random Glucose (70-110) mg/dL Calcium (8.4-10.5) mg/dL Phosphorus (2.5-4.5) mg/dL Magnesium (1.7-2.2) mg/dL Total Bilirubin (0.2-1.3) mg/dL AST (17-59) U/L ALT (7-56) U/L Alkaline Phosphatase (38-126) U/L Total Protein (5.8-8.3) g/dL Albumin (3.0-4.8) g/dL Globulin gm/dL Albumin/Globulin Ratio (1.1-1.8) Laboratory Results - last 24 hr 08/03/18 08/03/18 08/03/18 11:01 16:15 22:52 WBC RBC Hgb Hct MCV MCH MCHC RDW Plt Count MPV Gran % Lymph % (Auto) Atlantic % (Auto) Eos % (Auto) Baso % (Auto) Gran # Lymph # (Auto) [place] # (Auto) Eos # (Auto) Baso # (Auto) pCO2 pO2 HCO3 ABG pH ABG Total CO2 ABG O2 Saturation ABG O2 Content ABG Base Excess ABG Hemoglobin ABG Carboxyhemoglobin POC ABG HHb (Measured) ABG Methemoglobin ABG O2 Capacity Hgb O2 Saturation FiO2 Sodium Potassium Chloride Carbon Dioxide Anion Gap BUN Creatinine Est GFR ( Amer) Est GFR (Non-Af Amer) POC Glucose (mg/dL) 249 H 206 H 191 H Random Glucose Calcium Phosphorus Magnesium Total Bilirubin AST ALT Alkaline Phosphatase Total Protein Albumin Globulin Albumin/Globulin Ratio 08/04/18 08/04/18 08/04/18 06:10 06:15 06:15 WBC 3.2 L D RBC 3.71 Hgb 10.8 L Hct 35.3 L MCV 95.1 MCH 29.1 MCHC 30.6 L RDW 14.9 H Plt Count 54 L MPV 9.9 Gran % 91.9 H Lymph % (Auto) 5.9 L Atlantic % (Auto) 2.2 Eos % (Auto) 0.0 L Baso % (Auto) 0.0 Gran # 2.95 Lymph # (Auto) 0.2 L [place] # (Auto) 0.1 Eos # (Auto) 0.0 Baso # (Auto) 0.00 pCO2 44 pO2 143.0 H HCO3 27.3 ABG pH 7.40 ABG Total CO2 28.7 H ABG O2 Saturation 100.0 H ABG O2 Content 15.1 ABG Base Excess 2.1 ABG Hemoglobin 10.9 L ABG Carboxyhemoglobin 2.3 H POC ABG HHb (Measured) 0 ABG Methemoglobin 0.7 ABG O2 Capacity 15.1 L Hgb O2 Saturation 97.0 FiO2 50.0 Sodium 138 Potassium 4.6 Chloride 104 Carbon Dioxide 30 Anion Gap 9 L BUN 63 H Creatinine 1.4 Est GFR ( Amer) 59 Est GFR (Non-Af Amer) 49 POC Glucose (mg/dL) Random Glucose 167 H Calcium 8.2 L Phosphorus 4.9 H Magnesium 2.6 H Total Bilirubin 0.8 AST 172 H D ALT 392 H Alkaline Phosphatase 55 Total Protein 4.8 L Albumin 2.6 L Globulin 2.2 Albumin/Globulin Ratio 1.2 Critical Care Progress Note - Nutrition Nutrition: Nutrition Category Date Time Status Heart Healthy Diet [DIET] Diets 08/04/18 Lunch Active Addendum Addendum: 08/04/18 15:05 ICU ATTENDING : Patent seen and examined with housestaff. Agree with progress note with following additions/exceptions: 82 M with hx of rectal cancer s/p total colectomy, zenker's diverticulum, thrombocytopenia, stent placement for AAA, seizure disorder, hypertension, hyperlipidemia, atrial fibrillation on eliquis s/p polyp removal with parastomal hernia repair, with multi organ failure, and lung collapse Acceptable SBT this AM, extubated to Bipap will monitor for signs of resp distress Atelectasis improved s/p bronch 08/03 Afib rate controlled surgery has cleared patient to resume eliquis COPD - cont nebs, decr steroids to 40mg daily JOHNNY improved, cont fluids feeding as per surgery GI ppx DVT ppx Cont to Monitor in MICU Yeni Keys MD [facility]U Attending Critical care time 33 minutes
[2018-08-04] MEDS: Meropenem IV 1 gm in NS 1 GM/50 ML BAG IVPB SCH ×2 (10:48→22:00)
[2018-08-04] MEDS: Enoxaparin 30 mg Syringe SC SCH (10:49)
[2018-08-04] MEDS: Metoprolol Succinate 25 mg XL Tab PO SCH ×2 (10:51→18:52)
[2018-08-04] MEDS: diltiaZEM 180 mg/24 Hours CD Cap PO SCH (10:52)
[2018-08-04] MEDS: Insulin Lispro (humaLOG) LOW Coverage SC SCH ×3 (11:40→22:07)
[2018-08-04] MEDS: Acetylcysteine 20% Inhal Soln (4ml) IH SCH ×3 (13:09→20:02)
--- NOTE | 2018-08-04 13:55 | PN ---
DATE: 08/04/2018 REASON FOR THE CONSULTATION AND FOLLOWUP: Postop followup status post right hemicolectomy, history of chronic atrial fibrillation, and collapse of the left lung status post bronchoscopy and reexpansion of the lung and removal of thin mucus plug, status post intubated. SUBJECTIVE: The patient remains intubated. Event noted since he was yesterday moved to ICU. Suction of large mucus plug done and the patient was intubated and bronchoscopy done. removed and the patient self extubated himself, re-intubated on propofol, though responded to the verbal stimuli. OBJECTIVE: GENERAL: Not in apparent distress, responding to verbal stimuli, still feels okay. VITALS: Temperature afebrile, heart rate 78, and blood pressure 126/78. HEENT: PERRLA. Extraocular muscles intact. NECK: Supple. No carotid bruit or thyromegaly. CHEST: Good air entry at both bases, expect decreased air entry at the right base. ABDOMEN: Soft. EXTREMITIES: Clubbing and cyanosis negative. HEART: S1 and S2, irregular. LABORATORY DATA: Blood workup: WBC 3.2, hemoglobin 10.8, hematocrit 35.3, and platelet count 54. Chemistry shows sodium 130, potassium 4.6, chloride 104, carbon dioxide 30, anion gap of 9, BUN , creatinine 1.4. Total protein 4.8 and albumin 2.6. IMPRESSION: The patient is an 82-year-old male with the past medical history significant for status post colostomy, new lesion, status post exploratory laparotomy, right hemicolectomy, history of chronic atrial fibrillation, history of abdominal aortic aneurysm status post endovascular repair. The patient had stress test. The patient underwent hemicolectomy. Postop course was complicated by left hemithorax, left complete collapse of the lung, large mucus plug was removed, intubated and re-bronchoscopy was done. The patient self-extubated and now re-intubated again. Currently, hemodynamically stable on ventilator. Moderate protein-calorie malnutrition was not present on admission, anemia, thrombocytopenia as chronic, off anticoagulation for surgery, atrial fibrillation. Repeat echocardiogram was done yesterday to assess left ventricular function that revealed normal left ventricular function, ejection fraction and atrial fibrillation. No significant aortic stenosis noted. Moderate mitral regurgitation noted. Moderate tricuspid regurgitation, right ventricular systolic pressure of 47, [id number] pulmonary insufficiency noted, mild pulmonary hypertension noted. Chest x-ray repeat showed significant improvement in left side lung field expanded, still cannot rule out a right lower lobe or middle lower lobe pneumonia. RECOMMENDATIONS: Continue DVT prophylaxis. Continue vent management. Continue broad-spectrum antibiotics. Remove the vent when the patient is ready. We will follow with you once the patient is extubated and start anticoagulation. Overall, the patient's condition is critical. 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 Currently, the patient is in D5 IV fluids. We will follow with you. Thank you Dr. Du and Dr. Fleming for providing us the opportunity in taking care of the patient. Gladis Greenfield MD
--- NOTE | 2018-08-04 16:40 | RAD ---
Date of service: 08/04/2018 HISTORY: f/u COMPARISON: Multiple serial examinations preceding the most recent study: August 03, 2018. FINDINGS: LUNGS: Stable multifocal infiltrates/pulmonary edema. PLEURA: Stable pleural effusions. CARDIOVASCULAR: Atherosclerotic calcifications identified primarily aortic arch. Stable cardiomegaly OSSEOUS STRUCTURES: No significant abnormalities. VISUALIZED UPPER ABDOMEN: Normal. OTHER FINDINGS: Endotracheal tube tip now at the raul. This appears to have migrated compared to the prior study. IMPRESSION: Low lying endotracheal tube. Stable cardiopulmonary findings.
[2018-08-04 16:45] LABS: HEPATITIS B SURFACE AG Negative (NEGATIVE)
[2018-08-04 16:51] LABS: HEPATITIS A IGM NEGATIVE (NEGATIVE); HEPATITIS B CORE AB NEGATIVE (NEGATIVE)
--- NOTE | 2018-08-04 16:52 | PN ---
DATE: 08/03/2018 SUBJECTIVE: This 82-year-old male was examined at his bedside on the afternoon of 08/03/2018, in ICU bed 2. This case was reviewed at bedside with the ICU nurse, Angela Kaufman, registered nurse. The patient remained intubated and self extubated himself earlier today and now was re-intubated and is wearing soft wrist restraints. He had an episode of respiratory failure secondary to congestive heart failure in the setting of acute renal failure and sepsis status post recent surgical hemicolectomy for cecal mass. At the time of my interview, the patient was sedated, intubated, wearing soft wrist restraints and in atrial fibrillation rhythm on the monitor car operator. PHYSICAL EXAMINATION: VITAL SIGNS: Temperature 98.2, his pulse was 64, FiO2 of 50, respirations of 18, and blood pressure 124/82. Of note, the patient has had 400 mL of urine output in 24 hours. HEENT: Head was normocephalic and atraumatic. Eyes: No icterus. Ears: Clear. Throat: Noninjected. NECK: Supple. HEART: Irregular, S1, S2. LUNGS: With rhonchi bilaterally. ABDOMEN: Soft. EXTREMITIES: No edema. SKIN: Without rash. NEUROLOGICAL: Sedated. VASCULAR: Legs warm to touch. PSYCHOLOGICAL: Cannot be assessed. LABORATORY DATA: White count 5800, hemoglobin 11.8, hematocrit 37.3, platelets 78,000. The pH 7.45, pCO2 of 38, pO2 of 77, bicarb 26 on a FiO2 of 50. Sodium 137, K 5.2, chloride 101, bicarb 27, BUN 67, creatinine 1.8, previously BUN 60 with a creatinine of 2.2. Calcium 8.5, phosphorous 5, magnesium 2.7, bilirubin 0.9, AST 253, ALT 433, and alk phos 72. Urinalysis showed 2 to 5 hyaline casts, 0 to 2 granular casts, specific gravity greater than 1.030, trace protein. Chest x-ray was reviewed. It shows endotracheal tube in proper position with no pneumothorax. No definite pleural effusion on the right, but left pleural effusion was probable with slightly improved aeration at the mid left lung zone with patchy density noted at the inferior medial right lung zone. IMPRESSION: An 82-year-old male with respiratory failure requiring intubation secondary to mucus plugging for which the patient underwent bronchoscopy earlier this morning and has comorbidities of atrial fibrillation, chronic hypertension, acute renal failure, insulin-dependent diabetes mellitus, probable sepsis, peptic ulcer disease with gastroesophageal reflux disease, exacerbation of chronic obstructive pulmonary disease, hyperlipidemia and now thrombocytopenia and agitation, status post hemicolectomy for cecal mass. PLAN: The plan at present is to continue Mucomyst, Cardizem D5 0.45 saline. Protonix has been discontinued given thrombocytopenia and the patient will receive IV Pepcid for GI prophylaxis. He continues on Lovenox for his AFib, IV meropenem, IV fluids for IV hydration, IV Solu-Medrol, Toprol, and Xopenex inhalational therapy. The patient will be scheduled for repeat basic metabolic panel and CBC in the a.m. He will probably need insulin protocol and continues to be followed by co-consultants from Hematology/Oncology, Cardiology, Pulmonary as well as Dr. Rocael Du from Surgery and Infectious Disease. Cytology and surgical pathology reports remain pending. The patient's overall prognosis remains guarded at present and decision regarding extubation will be decided by internal controls analyst. Greater than 35 minutes was spent in the care management, review of labs, orders and x-rays and this case was discussed with nurse Emperio from intensive care. All questions were answered. Sara Ramirez MD MTDD
[2018-08-04 17:02] LABS: HEPATITIS C ANTIBODY NEGATIVE (NEGATIVE)
--- NOTE | 2018-08-04 20:25 | CP.PCM.PN ---
Subjective - Date & Time of Evaluation Date of Evaluation: 08/04/18 Time of Evaluation: 09:00 - Subjective Subjective: General Surgery Progress Note for Dr. Du This 82M was seen and examined this AM at bedside no acute events reported overnight. The patient was extubated, on BIPAP this am saturating 100 percent on 40 FIO2. He reports pain is well controlled he reports he has an appetite. Objective - Vital Signs/Intake and Output Vital Signs (last 24 hours): Temp Pulse Resp BP Pulse Ox 97.4 F L 92 H 13 175/74 H 88 L 08/04/18 16:00 08/04/18 18:52 08/04/18 10:50 08/04/18 18:52 08/04/18 11:00 Intake and Output: 08/04/18 08/05/18 18:59 06:59 Intake Total 880 Output Total 1540 Balance -660 - Medications Medications: Current Medications Acetylcysteine (Acetylcysteine 20%) 4 ml IH [id number] KD Last Admin: 08/04/18 20:02 Dose: 4 ml Apixaban (Eliquis) 2.5 mg PO BID KD Last Admin: 08/04/18 18:51 Dose: 2.5 mg Dextrose (Dextrose 50% Inj) 0 ml IV STAT PRN; Protocol PRN Reason: Hypoglycemia Protocol Diltiazem HCl (Cardizem Cd) 360 mg PO DAILY [facility] Last Admin: 08/04/18 10:52 Dose: 360 mg Famotidine (Pepcid) 20 mg PO HS KD Meropenem (Merrem Iv 1 Gm Premix) 1 gm in 50 mls @ 100 mls/hr IVPB Q12 KD; Protocol Stop: 08/10/18 22:01 Last Admin: 08/04/18 10:48 Dose: 100 mls/hr Dextrose (Dextrose 5% In Water 1000 Ml) 1,000 mls @ 0 mls/hr IV .Q0M PRN; Deric col PRN Reason: Hypoglycemia Protocol Sodium Chloride (Sodium Chloride 0.9%) 1,000 mls @ 70 mls/hr IV .[id number] KD Stop: 08/07/18 10:00 Insulin Human Lispro (Humalog Low) 0 units SC ACHS KD; Protocol Last Admin: 08/04/18 17:08 Dose: Not Given Levalbuterol HCl (Xopenex) 1.25 mg IH [id number] [facility] Last Admin: 08/04/18 20:03 Dose: 1.25 mg Methylprednisolone (Solu-Medrol) 40 mg IVP DAILY [facility] Metoprolol Succinate (Toprol Xl) 25 mg PO BID [facility] Last Admin: 08/04/18 18:52 Dose: 25 mg Oxycodone HCl (Oxycodone Immediate Release Tab) 5 mg PO Q4H PRN PRN Reason: Pain, moderate (4-7) Last Admin: 08/02/18 09:39 Dose: 5 mg Phenytoin Sodium (Dilantin) 100 mg PO TID [facility] Last Admin: 08/04/18 18:45 Dose: 100 mg - Labs Labs: 08/04/18 06:15 08/04/18 06:15 - Constitutional Appears: Non-toxic, No Acute Distress - Head Exam Head Exam: ATRAUMATIC, NORMOCEPHALIC - Eye Exam Eye Exam: EOMI - Cardiovascular Exam Cardiovascular Exam: +S1, +S2 - GI/Abdominal Exam Additional comments: Incisions well approximated non tender non erythemaotous , Fabian with serosang, ostomy pink and patent. - Psychiatric Exam Psychiatric exam: Normal Affect, Normal Mood - Skin Skin Exam: Dry, Intact Assessment and Plan - Assessment and Plan (Free Text) Assessment: 82 yr old male POD 4 s/p right hemicolectomy and parastomal hernia repair Plan: Reg Diet IVF Pain managment Continue managment by ICU and pulm Monitor outputs D/W Dr. Florian Cardenas PGY3
[2018-08-05] MEDS: oxyCODONE 5 mg Immediate Release Tab PO PRN (01:05)
[2018-08-05] MEDS: Acetylcysteine 20% Inhal Soln (4ml) IH SCH ×4 (04:42→19:56)
[2018-08-05] MEDS: Levalbuterol 1.25 MG/3 ML Inhal Soln UD IH SCH ×4 (04:43→19:56)
[2018-08-05] MEDS: Sodium Chloride 0.9% 1,000 ML IV SCH ×2 (05:25→05:26)
[2018-08-05 06:09] LABS: ARTERIAL BLOOD GAS HCO3 21.2 mmol/L (21-28); ARTERIAL BLOOD GAS HEMOGLOBIN 9.8 g/dL (11.7-17.4); ARTERIAL BLOOD GAS O2 CAPACITY 13.4 mL/dl (16-24); ARTERIAL BLOOD GAS O2 CONTENT 13.1 ML/dl (15-23); ARTERIAL BLOOD GAS O2 SAT 97.9 % (95-98); ARTERIAL BLOOD GAS PCO2 32 mm/Hg (35-45); ARTERIAL BLOOD GAS PH 7.43 (7.35-7.45); ARTERIAL BLOOD GAS TCO2 22.2 mmol.L (22-28)
[2018-08-05 06:12] LABS: HEMOGLOBIN 12.1 g/dL (14.0-18.0); MEAN CELL VOLUME 94.9 fl (80.0-105.0); MEAN CORPUSCULAR HEMOGLOBIN 29.4 pg (25.0-35.0); MEAN PLATELET VOLUME 8.9 fl (7.0-11.0); RBC 4.11 10^6/uL (3.5-6.1); RED CELL DISTRIBUTION WIDTH 15.2 % (11.5-14.5); WHITE BLOOD COUNT 6.6 10^3/ul (4.5-11.0)
[2018-08-05 06:34] LABS: ALB/GLOB RATIO 1.1 (1.1-1.8); ALBUMIN 2.6 g/dL (3.0-4.8); ALT/SGPT 324 U/L (7-56); AST/SGOT 108 U/L (17-59); BLOOD UREA NITROGEN 58 mg/dL (7-21); CALCIUM 8.2 mg/dL (8.4-10.5); GFR NON-AFRICAN AMERICAN 58
--- NOTE | 2018-08-05 07:49 | PN ---
DATE: 08/05/2018(235am-315am) PULMONARY NOTE DICTATION SUBJECTIVE: The patient appears comfortable this morning. He is mildly short of breath, but in no acute distress. PHYSICAL EXAMINATION: VITAL SIGNS: Temperature is 98.7, pulse is 94, respirations 20/22, blood pressure 175/74. Oxygen saturation on high-flow delivery is 93%. HEENT: Normocephalic, atraumatic. No JVD. CARDIOVASCULAR: Systolic ejection murmur at the lower left sternal border. Questionable S3 gallop. LUNGS: Decreased breath sounds - left lung. Minimal rhonchi. No wheezing. EXTREMITIES: Mild edema. No cyanosis, no clubbing. Calves are nontender to palpation. GI: Abdomen is postoperative. It is soft, nondistended, and mildly tender to palpation. SKIN: No acute rash. NEUROLOGIC: Exam limited at the present time. PERTINENT LABORATORY DATA: Chest x-ray was done this morning and reviewed. There is now, again, significant opacification of the left lung consistent with atelectasis. Arterial blood gas was done on high-flow delivery. Results are: The pH 7.43, pCO2 of 32, pO2 of 76. IMPRESSION: 1. Recurrent left lung atelectasis. 2. Chronic obstructive pulmonary disease. 3. Congestive heart failure. 4. Small bilateral pleural effusions. 5. Atrial fibrillation. 6. Status post right hemicolectomy. 7. Anemia, thrombocytopenia. PLAN: The patient remains in the ICU. He is now extubated. He is mildly short of breath, but in no acute distress. I did discuss the case with the night nurse at length. The night nurse stated that the patient had a "guarded" night. I did review the chest x-ray as above. There is now reopacification of the left lung consistent with atelectasis. I have also reviewed the arterial blood gas. The arterial blood gas is also worse-- with a significant increase in the alveolar-arterial gradient. I did discuss the chest x-ray results and clinical status of the patient with the respiratory therapist at length. We will continue with the aggressive pulmonary toilet. The patient may need a repeat bronchoscopy, but I will discuss this with the ICU team. Repeated procedures are somewhat problematic for this patient, as he continues to have multiple medical comorbidities, as well as severe thrombocytopenia. On physical exam, there is still mild bronchospasm noted. I will continue the current nebulizer treatments and increase the intravenous steroids for now. Inputs by Renal, Cardiology, and Surgery are also noted. Clinical status of the patient appears very guarded at this point in time. Again, I will discuss the above with the entire ICU team in the next few moments. I will also discuss the above with Dr. Du later this morning. Rosalio Blevins MD MTDD
--- NOTE | 2018-08-05 08:07 | PN ---
DATE: 08/05/2018 FOLLOWUP NOTE SUBJECTIVE: He is n mild respiratory distress. Currently, on oxygen by face mask. He had BiPAP in the night. He is complaining of having very restless night due to discomfort from the BiPAP. He is tachycardic with heart rate of 94. No bleeding from any site. Abdominal drain draining clear serosanguineous liquid. Denies any abdominal pain. No nausea. No vomiting. No fever. No cough with expectoration. PHYSICAL EXAMINATION: GENERAL: Mild respiratory distress. VITAL SIGNS: Heart rate is 94 per minute, irregularly irregular; oxygen saturation 96-88% on high-flow oxygen; afebrile, temperature 98.7; blood pressure 110/70. HEENT: Pallor positive. NECK: No lymphadenopathy. CHEST: Air entry decreased on the right side. No rhonchi. No crepitations. CARDIOVASCULAR: Tachycardia present. ABDOMEN: Soft, nontender. Drain present draining clear serosanguineous liquid. EXTREMITIES: No edema. SKIN: Face, ecchymosis around the left eye. MEDICATIONS: Eliquis 2.5 mg b.i.d., IV fluids, Cardizem 360 daily, Pepcid 20 mg daily, insulin, meropenem every 12 hours, Solu-Medrol 40 mg daily, metoprolol 25 mg daily, oxycodone p.r.n., Dilantin 100 mg p.o. t.i.d. LABORATORY DATA: White count 6.6, hemoglobin 12.1, hematocrit 39, platelets 68. Sodium 139, potassium 4.8, calcium 8.2. ASSESSMENT AND PLAN: 1. History of colon cancer, in remission. 2. Status post tubulovillous adenoma resection, right hemicolectomy. Pathology is negative for malignancy. Lymph node negative for malignancy. 3. Respiratory distress secondary to collapsed lung. Currently on bilevel positive airway pressure. Followed by Pulmonary. Chest x-ray done today. Currently on bronchodilators. 4. On anticoagulation with Eliquis 2.5 mg p.o. b.i.d. for atrial fibrillation. He had pancytopenia before. White count recovered. Hemoglobin and hematocrit stable. Platelets 68,000. We will monitor closely. He has a history of idiopathic thrombocytopenic purpura. No active bleeding right now. Serosanguineous fluid clearing up drain from the abdomen. Thank you, Dr. Du for allowing us to participate in Mr. Hale's care. Lesia Ledezma MD
--- NOTE | 2018-08-05 08:12 | PN ---
DATE: 08/04/2018 SUBJECTIVE: The patient is 82 years old, seen and examined, was extubated this morning. Currently on BiPAP. PHYSICAL EXAMINATION: GENERAL: Awake and alert, able to communicate. VITAL SIGNS: He is afebrile, pulse 72, respirations 20, blood pressure 117/76. LUNGS: Decreased breath sound on the left side. HEART: S1 and S2 audible. ABDOMEN: Soft, nontender. No rebound. No guarding. His colostomy has minimal fluid in it. NEUROLOGIC: Patient is awake and alert. Able to communicate. HEAD AND NECK: He has a left periorbital ecchymosis. EXTREMITIES: Bilateral leg SCDs in place. ASSESSMENT: 1. Status post respiratory failure. 2. Bilateral infiltrates. 3. Status post right hemicolectomy 4. Hypertension. 5. Seizure disorder. 6. Thrombocytopenia. PLAN: Currently patient has been extubated. He is on BiPAP. He is on nebulizer treatment. He is n.p.o. for now. We will continue him on his Eliquis. He is on meropenem and he is on Xopenex. Tri Fleming MD
--- NOTE | 2018-08-05 08:13 | CP.PCM.PCO ---
Physician Communication Note - Physician Communication Note Physician Communication Note: Recollapse: Bronch today-NO ICU TRANSFER ALLOWED
[2018-08-05] MEDS: Insulin Lispro (humaLOG) LOW Coverage SC SCH ×4 (08:15→22:05)
--- NOTE | 2018-08-05 09:02 | RAD ---
Date of service: 08/05/2018 HISTORY: f/u COMPARISON: 08/04/2018. FINDINGS: LUNGS: The right lung is well inflated and clear. There is interval near complete opacification of the left lung. There is patient rotation to the. S PLEURA: Redemonstration of bilateral effusions. No pneumothorax. CARDIOVASCULAR: No interval change. Atherosclerotic aortic arch calcifications are present. S OSSEOUS STRUCTURES: Within normal limits for the patient's age. VISUALIZED UPPER ABDOMEN: Normal. OTHER FINDINGS: None. IMPRESSION: Interval near complete opacification of the left hemithorax which could be related to left lung collapse or worsening effusions. Definitive evaluation is difficult due to limited portable examination and patient rotation the left. No other significant interval change.
--- NOTE | 2018-08-05 09:12 | PN ---
DATE: 08/05/2018 SUBJECTIVE: The patient was seen early this morning in ICU. He is awake and alert. He is extubated. He is comfortable. PHYSICAL EXAMINATION: VITAL SIGNS: On exam, temperature is 98, blood pressure is 175/70, respiratory rate of 18, heart rate of 94. HEENT: Examination of HEENT is unremarkable. NECK: Supple. LUNGS: Have decreased breath sounds. HEART: Normal S1, S2. ABDOMEN: Soft. LABORATORY DATA: Laboratory examination reveals a white count of 6.6, hemoglobin of 12 and platelets of 68. Chemistries reveals a BUN of 58, creatinine of 1.2. LFTs are noted, but improving. Urinalysis is noted. Serology is noted. Microbiology: The sputum culture is pending. The trach cultures are pending. The naris MRSA is not detected. The blood cultures are negative. Review of orders reveals the patient to be on meropenem, Solu-Medrol and the patient's procalcitonin is elevated at 1.44. ASSESSMENT AND PLAN: An 82-year-old male with severe sepsis, left-sided healthcare-associated pneumonia, acute kidney injury, respiratory failure, intubated on a ventilator, now the patient is extubated, comfortable and the patient had a bronchoscopy, Dr. Blevins. The patient is doing well and the bronchoscopy cultures are pending. Today is day #5 of meropenem, would complete 4-7 days of antibiotics. We will follow with you. Jason Garvin MD
[2018-08-05] MEDS ORDERED: MethylPREDNISolone 40 mg Vial IVP SCH (10:00)
[2018-08-05] MEDS: diltiaZEM 180 mg/24 Hours CD Cap PO SCH (10:09)
[2018-08-05] MEDS: Meropenem IV 1 gm in NS 1 GM/50 ML BAG IVPB SCH ×2 (10:11→21:49)
[2018-08-05] MEDS: Metoprolol Succinate 25 mg XL Tab PO SCH ×2 (10:14→17:33)
[2018-08-05] MEDS: MethylPREDNISolone 40 mg Vial IVP SCH ×2 (10:14→21:50)
[2018-08-05] MEDS ORDERED: Propofol 10 mg/ml Inj (20 ML) IVP ONE (12:13)
[2018-08-05] MEDS ORDERED: Etomidate 20 mg/10ml Inj IV ONE (12:13)
[2018-08-05] MEDS ORDERED: Lidocaine 4% 50 mL Topical Sol (OR USE) ONE (12:39)
[2018-08-05] MEDS ORDERED: Lidocaine 2% Jelly (30 ml) ONE (12:40)
[2018-08-05] MEDS ORDERED: Midazolam 2 MG/2 ML VIAL ONE (12:40)
[2018-08-05] MEDS ORDERED: Midazolam 2 MG/2 ML VIAL IVP STA (13:01)
[2018-08-05] MEDS: Ipratropium 0.02% Inhal Soln (0.5 mg/2.5 ml) UD IH SCH ×2 (13:50→19:56)
--- NOTE | 2018-08-05 16:49 | PN ---
DATE: 08/04/2018 CRITICAL CARE PROGRESS NOTE SUBJECTIVE: This 82-year-old male was examined in the critical care unit, bed #2, at the [facility] ([facility]] on the morning of 08/04/2018. This case was reviewed in detail with nurse, Kayleen Ward, registered nurse. The patient remains intubated and sedated. There have been no further reports of the patient's self extubation. He is receiving ventilatory support secondary to respiratory insufficiency in the setting of congestive heart failure and a mucus plug. He underwent bronchoscopy by Dr. Rosalio Blevins and followup chest x-rays were reviewed. It showed stable multifocal infiltrates and pulmonary edema, stable pleural effusions, stable cardiomegaly with a low-lying endotracheal tube which has been readjusted. Followup chest x-ray has been requested. PHYSICAL EXAMINATION: VITAL SIGNS: His temperature was 97.6, respirations 16, pulse 104 and blood pressure 140/86 with a pulse ox of 96%. Urine output was a total of 1260 mL for the past 24 hours. HEENT: Head: Normocephalic, atraumatic. Eyes: No icterus. Ears: Clear. Throat: Noninjected. NECK: Supple. HEART: Irregular S1, S2. LUNGS: With rhonchi bilaterally. ABDOMEN: Soft. EXTREMITIES: No edema. SKIN: No ulcers. VASCULAR: Legs warm to touch. PSYCHOLOGIC: Sedated. NEUROLOGIC: Cannot be assessed. LABORATORY DATA: White count 3200, hemoglobin 10.8, hematocrit 35.3, and platelets 54,000. Blood gas shows a pH of 7.40, pCO2 of 44, pO2 of 143, bicarb of 27.3 with an O2 sat of 97% on 50% FiO2. Sodium 138, K 4.6, chloride 104, bicarb 30, BUN 64, creatinine 1.4. Estimated GFR is now 49 mL per minute. Calcium 8.2, glucose 167. Phosphorous 4.9, magnesium 2.6. Bilirubin 0.8, AST 172, ALT 392 and alk phos 55. Hepatitis A, B, C serologies are negative. MRSA culture of nasal passages shows none detected. Blood cultures show no growth at 3 days at 72 hours. IMPRESSION: An 82-year-old male status post right hemicolectomy and colostomy for cecal mass and preoperative anemia, now postoperative with respiratory failure, mucus plugging, bilateral pneumonia and comorbidities of chronic atrial fibrillation, hypertension, acute renal failure, improving; history of seizure syndrome; insulin-dependent diabetes mellitus; sepsis; thrombocytopenia; peptic ulcer disease with gastroesophageal reflux disease; chronic hypertension and hyperlipidemia. PLAN: The plan at present is to continue Mucomyst, Cardizem IV; to continue Dilantin, Eliquis, low-dose insulin coverage a.c. meals and at bedtime, IV meropenem, dose reduced for renal insufficiency; Pepcid 0.9 saline at 70 mL/hour; IV Solu-Medrol; Toprol and inhalational Xopenex. He will have repeat comprehensive metabolic panel and CBC in the a.m. Chest x-ray has been requested for a.m. He continues on chest physiotherapy. He will be readied for extubation and then continued on BiPAP. When this is accomplished, diet may be advanced. He continues on anti-embolism sequential compression device stockings, weaning protocol, suctioning p.r.n. and bedside physical therapy. Based on clinical progress, additional diagnostic testing and workup will be entertained. Greater than 35 minutes was spent in the care, management, review of labs, orders and x-rays and discussion of this patient with critical care nursing. All questions were answered Sara Ramirez MD MTDD
--- NOTE | 2018-08-05 17:07 | CP.CCUPN ---
<Heather Adamson - Last Filed: 08/05/18 17:26> CCU Subjective - Physician Review Subjective (Free Text): CRITICAL CARE PROGRESS NOTE FOR DR. JULIANA Adamson PGY1 Pt was seen and examined this am. Resting comfortably on high flow oxygen. He reported no acute complaints. No acute nursing events overnight. He was tolerating his diet. Repeat xray revealed repeat L lung collapse, however pt reported no symptoms of shortness of breath. 12 point ROS otherwise negative. CCU Objective - Vital Signs / Intake & Output Vital Signs (Last 4 hours): Vital Signs Resp 08/05/18 15:30 20 - Physical Exam Head: Positive for: Atraumatic, Normocephalic Pupils: Positive for: PERRL Extroacular Muscles: Positive for: EOMI Conjunctiva: Positive for: Normal Mouth: Positive for: Moist Mucous Membranes Pharnyx: Positive for: Normal Neck: Positive for: Normal Range of Motion Respiratory/Chest: Positive for: Clear to Auscultation, Good Air Exchange. Negative for: Respiratory Distress Cardiovascular: Positive for: Other (irregularly irregular rhythm) Abdomen: Positive for: Normal Bowel Sounds, Other (+colostomy). Negative for: Tenderness, Distention Genitourinary Male: Positive for: Prostate Tenderness Upper Extremity: Positive for: Normal Inspection Lower Extremity: Positive for: Normal Inspection. Negative for: Edema Neurological: Positive for: GCS=15, Speech Normal Skin: Positive for: Warm, Dry, Normal Color Psychiatric: Positive for: Alert, Oriented x 3, Normal Insight, Normal Concentration - Medications Active Medications: Active Medications Generic Name Dose Route Start Last Admin Trade Name Freq PRN Reason Stop Dose Admin Acetylcysteine 4 ml 08/04/18 13:00 08/05/18 13:50 Acetylcysteine 20% IH 4 ml [id number] KD Administration Apixaban 2.5 mg 08/04/18 18:00 08/04/18 18:51 Eliquis PO 2.5 mg BID KD Administration Dextrose 0 ml 08/01/18 23:07 Dextrose 50% Inj IV STAT PRN Hypoglycemia Protocol Protocol Diltiazem HCl 360 mg 07/31/18 10:00 08/05/18 10:09 Cardizem Cd PO 360 mg DAILY KD Administration Famotidine 20 mg 08/05/18 22:00 Pepcid PO HS KD Meropenem 1 gm in 50 mls @ 100 mls/hr 08/01/18 22:00 08/05/18 10:11 Merrem Iv 1 Gm Premix IVPB 08/10/18 22:01 100 mls/hr Q12 KD Administration Protocol Dextrose 1,000 mls @ 0 mls/hr 08/01/18 23:07 Dextrose 5% In Water 1000 Ml IV .Q0M PRN Hypoglycemia Protocol Protocol Per Protocol Sodium Chloride 1,000 mls @ 70 mls/hr 08/04/18 10:45 08/05/18 05:26 Sodium Chloride 0.9% IV 08/07/18 10:00 70 mls/hr [id number] KD Administration Insulin Human Lispro 0 units 08/04/18 11:30 08/05/18 13:10 Humalog Low SC Not Given ACHS KD Protocol Ipratropium Greer 0.5 mg 08/05/18 14:00 08/05/18 13:50 Atrovent IH 0.5 mg [id number] KD Administration Levalbuterol HCl 1.25 mg 08/02/18 14:00 08/05/18 13:50 Xopenex IH 1.25 mg [id number] KD Administration Methylprednisolone 40 mg 08/05/18 10:00 08/05/18 10:14 Solu-Medrol IVP 40 mg Q12 KD Administration Metoprolol Succinate 25 mg 07/31/18 10:00 08/05/18 10:14 Toprol Xl PO 25 mg BID KD Administration Phenytoin Sodium 100 mg 08/04/18 14:00 08/05/18 10:10 Dilantin PO 100 mg TID KD Administration - Patient Studies Lab Studies: Microbiology Studies 08/03/18 08:06 Gram Stain - Final Trachasp Sputum Culture - Final No growth. 08/01/18 21:40 Blood Culture - Preliminary Blood NO GROWTH AFTER 3 DAYS 08/01/18 22:07 Blood Culture - Preliminary Blood NO GROWTH AFTER 3 DAYS 08/03/18 21:46 Gram Stain - Final Sputum Induced Lab Studies 08/05/18 08/05/18 08/05/18 Range/Units 15:46 11:28 09:00 WBC (4.5-11.0) 10^3/ul RBC (3.5-6.1) 10^6/uL Hgb (14.0-18.0) g/dL Hct (42.0-52.0) % MCV (80.0-105.0) fl MCH (25.0-35.0) pg MCHC (31.0-37.0) g/dl RDW (11.5-14.5) % Plt Count (120.0-450.0) 10^3/uL MPV (7.0-11.0) fl pCO2 (35-45) mm/Hg pO2 (80-100) mm/Hg HCO3 (21-28) mmol/L ABG pH (7.35-7.45) ABG Total CO2 (22-28) mmol.L ABG O2 Saturation (95-98) % ABG O2 Content (15-23) ML/dl ABG Base Excess (-2.0-3.0) mmol/L ABG Hemoglobin (11.7-17.4) g/dL ABG Carboxyhemoglobin (0.5-1.5) % POC ABG HHb (Measured) (0-5) % ABG Methemoglobin (0.0-3.0) % ABG O2 Capacity (16-24) mL/dl Hgb O2 Saturation (95.0-98.0) % FiO2 % Sodium (132-148) mmol/L Potassium (3.6-5.0) mmol/L Chloride (98-107) mmol/L Carbon Dioxide (21-33) mmol/L Anion Gap (10-20) BUN (7-21) mg/dL Creatinine (0.8-1.5) mg/dl Est GFR ( Amer) Est GFR (Non-Af Amer) POC Glucose (mg/dL) 114 H 196 H (65-110) mg/dL Random Glucose (70-110) mg/dL Calcium (8.4-10.5) mg/dL Total Bilirubin (0.2-1.3) mg/dL AST (17-59) U/L ALT (7-56) U/L Alkaline Phosphatase (38-126) U/L Total Protein (5.8-8.3) g/dL Albumin (3.0-4.8) g/dL Globulin gm/dL Albumin/Globulin Ratio (1.1-1.8) Procalcitonin 0.25 (0.19-0.49) NG/ML 08/05/18 08/05/18 08/05/18 Range/Units 07:43 06:00 05:30 WBC 6.6 D (4.5-11.0) 10^3/ul RBC 4.11 (3.5-6.1) 10^6/uL Hgb 12.1 L (14.0-18.0) g/dL Hct 39.0 L (42.0-52.0) % MCV 94.9 (80.0-105.0) fl MCH 29.4 (25.0-35.0) pg MCHC 31.0 (31.0-37.0) g/dl RDW 15.2 H (11.5-14.5) % Plt Count 68 L (120.0-450.0) 10^3/uL MPV 8.9 (7.0-11.0) fl pCO2 32 L (35-45) mm/Hg pO2 76.0 L (80-100) mm/Hg HCO3 21.2 (21-28) mmol/L ABG pH 7.43 (7.35-7.45) ABG Total CO2 22.2 (22-28) mmol.L ABG O2 Saturation 97.9 (95-98) % ABG O2 Content 13.1 L (15-23) ML/dl ABG Base Excess -2.5 L (-2.0-3.0) mmol/L ABG Hemoglobin 9.8 L (11.7-17.4) g/dL ABG Carboxyhemoglobin 2.5 H (0.5-1.5) % POC ABG HHb (Measured) 2.0 (0-5) % ABG Methemoglobin 1.0 (0.0-3.0) % ABG O2 Capacity 13.4 L (16-24) mL/dl Hgb O2 Saturation 94.5 L (95.0-98.0) % FiO2 40.0 % Sodium (132-148) mmol/L Potassium (3.6-5.0) mmol/L Chloride (98-107) mmol/L Carbon Dioxide (21-33) mmol/L Anion Gap (10-20) BUN (7-21) mg/dL Creatinine (0.8-1.5) mg/dl Est GFR ( Amer) Est GFR (Non-Af Amer) POC Glucose (mg/dL) 192 H (65-110) mg/dL Random Glucose (70-110) mg/dL Calcium (8.4-10.5) mg/dL Total Bilirubin (0.2-1.3) mg/dL AST (17-59) U/L ALT (7-56) U/L Alkaline Phosphatase (38-126) U/L Total Protein (5.8-8.3) g/dL Albumin (3.0-4.8) g/dL Globulin gm/dL Albumin/Globulin Ratio (1.1-1.8) Procalcitonin (0.19-0.49) NG/ML 08/05/18 08/04/18 08/04/18 Range/Units 05:30 21:54 16:05 WBC (4.5-11.0) 10^3/ul RBC (3.5-6.1) 10^6/uL Hgb (14.0-18.0) g/dL Hct (42.0-52.0) % MCV (80.0-105.0) fl MCH (25.0-35.0) pg MCHC (31.0-37.0) g/dl RDW (11.5-14.5) % Plt Count (120.0-450.0) 10^3/uL MPV (7.0-11.0) fl pCO2 (35-45) mm/Hg pO2 (80-100) mm/Hg HCO3 (21-28) mmol/L ABG pH (7.35-7.45) ABG Total CO2 (22-28) mmol.L ABG O2 Saturation (95-98) % ABG O2 Content (15-23) ML/dl ABG Base Excess (-2.0-3.0) mmol/L ABG Hemoglobin (11.7-17.4) g/dL ABG Carboxyhemoglobin (0.5-1.5) % POC ABG HHb (Measured) (0-5) % ABG Methemoglobin (0.0-3.0) % ABG O2 Capacity (16-24) mL/dl Hgb O2 Saturation (95.0-98.0) % FiO2 % Sodium 139 (132-148) mmol/L Potassium 4.8 (3.6-5.0) mmol/L Chloride 105 (98-107) mmol/L Carbon Dioxide 29 (21-33) mmol/L Anion Gap 10 (10-20) BUN 58 H (7-21) mg/dL Creatinine 1.2 (0.8-1.5) mg/dl Est GFR ( Amer) > 60 Est GFR (Non-Af Amer) 58 POC Glucose (mg/dL) 159 H 131 H (65-110) mg/dL Random Glucose 102 (70-110) mg/dL Calcium 8.2 L (8.4-10.5) mg/dL Total Bilirubin 0.8 (0.2-1.3) mg/dL AST 108 H D (17-59) U/L ALT 324 H (7-56) U/L Alkaline Phosphatase 64 (38-126) U/L Total Protein 4.9 L (5.8-8.3) g/dL Albumin 2.6 L (3.0-4.8) g/dL Globulin 2.3 gm/dL Albumin/Globulin Ratio 1.1 (1.1-1.8) Procalcitonin (0.19-0.49) NG/ML 08/04/18 08/04/18 Range/Units 11:24 07:19 WBC (4.5-11.0) 10^3/ul RBC (3.5-6.1) 10^6/uL Hgb (14.0-18.0) g/dL Hct (42.0-52.0) % MCV (80.0-105.0) fl MCH (25.0-35.0) pg MCHC (31.0-37.0) g/dl RDW (11.5-14.5) % Plt Count (120.0-450.0) 10^3/uL MPV (7.0-11.0) fl pCO2 (35-45) mm/Hg pO2 (80-100) mm/Hg HCO3 (21-28) mmol/L ABG pH (7.35-7.45) ABG Total CO2 (22-28) mmol.L ABG O2 Saturation (95-98) % ABG O2 Content (15-23) ML/dl ABG Base Excess (-2.0-3.0) mmol/L ABG Hemoglobin (11.7-17.4) g/dL ABG Carboxyhemoglobin (0.5-1.5) % POC ABG HHb (Measured) (0-5) % ABG Methemoglobin (0.0-3.0) % ABG O2 Capacity (16-24) mL/dl Hgb O2 Saturation (95.0-98.0) % FiO2 % Sodium (132-148) mmol/L Potassium (3.6-5.0) mmol/L Chloride (98-107) mmol/L Carbon Dioxide (21-33) mmol/L Anion Gap (10-20) BUN (7-21) mg/dL Creatinine (0.8-1.5) mg/dl Est GFR ( Amer) Est GFR (Non-Af Amer) POC Glucose (mg/dL) 150 H 198 H (65-110) mg/dL Random Glucose (70-110) mg/dL Calcium (8.4-10.5) mg/dL Total Bilirubin (0.2-1.3) mg/dL AST (17-59) U/L ALT (7-56) U/L Alkaline Phosphatase (38-126) U/L Total Protein (5.8-8.3) g/dL Albumin (3.0-4.8) g/dL Globulin gm/dL Albumin/Globulin Ratio (1.1-1.8) Procalcitonin (0.19-0.49) NG/ML Laboratory Results - last 24 hr 08/04/18 08/04/18 08/04/18 07:19 11:24 16:05 WBC RBC Hgb Hct MCV MCH MCHC RDW Plt Count MPV pCO2 pO2 HCO3 ABG pH ABG Total CO2 ABG O2 Saturation ABG O2 Content ABG Base Excess ABG Hemoglobin ABG Carboxyhemoglobin POC ABG HHb (Measured) ABG Methemoglobin ABG O2 Capacity Hgb O2 Saturation FiO2 Sodium Potassium Chloride Carbon Dioxide Anion Gap BUN Creatinine Est GFR ( Amer) Est GFR (Non-Af Amer) POC Glucose (mg/dL) 198 H 150 H 131 H Random Glucose Calcium Total Bilirubin AST ALT Alkaline Phosphatase Total Protein Albumin Globulin Albumin/Globulin Ratio Procalcitonin 08/04/18 08/05/18 08/05/18 21:54 05:30 05:30 WBC 6.6 D RBC 4.11 Hgb 12.1 L Hct 39.0 L MCV 94.9 MCH 29.4 MCHC 31.0 RDW 15.2 H Plt Count 68 L MPV 8.9 pCO2 pO2 HCO3 ABG pH ABG Total CO2 ABG O2 Saturation ABG O2 Content ABG Base Excess ABG Hemoglobin ABG Carboxyhemoglobin POC ABG HHb (Measured) ABG Methemoglobin ABG O2 Capacity Hgb O2 Saturation FiO2 Sodium 139 Potassium 4.8 Chloride 105 Carbon Dioxide 29 Anion Gap 10 BUN 58 H Creatinine 1.2 Est GFR ( Amer) > 60 Est GFR (Non-Af Amer) 58 POC Glucose (mg/dL) 159 H Random Glucose 102 Calcium 8.2 L Total Bilirubin 0.8 AST 108 H D ALT 324 H Alkaline Phosphatase 64 Total Protein 4.9 L Albumin 2.6 L Globulin 2.3 Albumin/Globulin Ratio 1.1 Procalcitonin 08/05/18 08/05/18 08/05/18 06:00 07:43 09:00 WBC RBC Hgb Hct MCV MCH MCHC RDW Plt Count MPV pCO2 32 L pO2 76.0 L HCO3 21.2 ABG pH 7.43 ABG Total CO2 22.2 ABG O2 Saturation 97.9 ABG O2 Content 13.1 L ABG Base Excess -2.5 L ABG Hemoglobin 9.8 L ABG Carboxyhemoglobin 2.5 H POC ABG HHb (Measured) 2.0 ABG Methemoglobin 1.0 ABG O2 Capacity 13.4 L Hgb O2 Saturation 94.5 L FiO2 40.0 Sodium Potassium Chloride Carbon Dioxide Anion Gap BUN Creatinine Est GFR ( Amer) Est GFR (Non-Af Amer) POC Glucose (mg/dL) 192 H Random Glucose Calcium Total Bilirubin AST ALT Alkaline Phosphatase Total Protein Albumin Globulin Albumin/Globulin Ratio Procalcitonin 0.25 08/05/18 08/05/18 11:28 15:46 WBC RBC Hgb Hct MCV MCH MCHC RDW Plt Count MPV pCO2 pO2 HCO3 ABG pH ABG Total CO2 ABG O2 Saturation ABG O2 Content ABG Base Excess ABG Hemoglobin ABG Carboxyhemoglobin POC ABG HHb (Measured) ABG Methemoglobin ABG O2 Capacity Hgb O2 Saturation FiO2 Sodium Potassium Chloride Carbon Dioxide Anion Gap BUN Creatinine Est GFR ( Amer) Est GFR (Non-Af Amer) POC Glucose (mg/dL) 196 H 114 H Random Glucose Calcium Total Bilirubin AST ALT Alkaline Phosphatase Total Protein Albumin Globulin Albumin/Globulin Ratio Procalcitonin Fingerstick Blood Sugar Results: 196 Review of Systems - Review of Systems Review of Systems: per [facility] Critical Care Progress Note - Nutrition Nutrition: Nutrition Category Date Time Status Heart Healthy Diet [DIET] Diets 08/05/18 Dinner Active Assessment/Plan - Assessment and Plan (Free Text) Assessment: 82 y/o M with PMHx of COPD, extensive smoking history, Afib on eliquis, chronic thrombocytopenia, AAA s/p aortic stent, seizure disorder, rectal CA s/p total colectomy, zenker diverticulum, HTN, HLD admitted to the hospital s/p polyp removal with parastomal hernia repair. Post-operatively, he was found to have a collapse L lung on xray, likely secondary to mucous plugging. Pt is s/p bedside bronchoscopy with lavage on 08/03 with removal of thick mucous secretions. He was intubated for bronchoscopy, and subsequently extubated on 08/04 and placed on BiPAP. Currently being closely monitored this am on high flow O2 at 50L with FiO2 40%. Pt was found to have atelectasis again of L lung. Pt underwent bronchoscopy with lavage this am. He was sedated, intubated. Post-procedure chest x-ray was ordered Plan: Neuro/Psych: Prior to bronchoscopy AxO x3, following commands, opens eyes spontaneously Hx of seizures continue phenytoin Cardio Afib on eliquis HR @90-100s cardizem 360 daily metoprolol 25 bid Per surgery rec, eliquis resumed Monitor H/H Pulmonary L Lung collapse Sedated and intubated for repeat bronchoscopy w/ lavage 08/05. Mucus plugs removed Weening protocol for extubation f/u post bronchoscopy revealed improved aeration of L lung COPD Xopenex q6h Acetylcysteine 4ml IH q6h Solu-medrol 40mg IVP daily ipratroprium Saturating well on high-flow Aggressive chest PT f/u sputum cultures GI S/p R hemicolectomy and parastoma hernioraphy Colostomy bag in place, draining pink fluid Monitor for signs of overt bleeding Hx of rectal ca s/p total colectomy /Renal JOHNNY: BUN improved from yesterday. Cr wnl today NS @ 70cc/hour Heme H/H stable Tranfuse if Hgb <8 Continue eliquis ID Meropenem f/u sputum/urine/blood DVT/GI PPx: Lovenox/Pepcid Case seen, examined and discussed with attending physician, Dr. Keys <Yeni Keys - Last Filed: 08/06/18 09:54> CCU Objective - Vital Signs / Intake & Output Vital Signs (Last 4 hours): Vital Signs Pulse BP 08/06/18 09:33 96 H 129/87 08/06/18 09:32 96 H 129/87 08/06/18 06:00 83 Intake and Output (Last 8hrs): Intake & Output 08/05/18 08/06/18 08/06/18 22:59 06:59 14:59 Intake Total 340 1230 Output Total 1310 1120 Balance -970 110 Weight 64.864 kg Intake: IV 890 Left Hand 890 Oral 240 240 Other 100 100 Output: Drainage 360 370 Right Abdomen 360 370 Urine 950 750 Straight 950 750 Emesis 0 - Medications Active Medications: Active Medications Generic Name Dose Route Start Last Admin Trade Name Freq PRN Reason Stop Dose Admin Acetylcysteine 4 ml 08/04/18 13:00 08/06/18 07:43 Acetylcysteine 20% IH 4 ml [id number] KD Administration Apixaban 2.5 mg 08/04/18 18:00 08/04/18 18:51 Eliquis PO 2.5 mg BID KD Administration Dextrose 0 ml 08/01/18 23:07 Dextrose 50% Inj IV STAT PRN Hypoglycemia Protocol Protocol Diltiazem HCl 360 mg 07/31/18 10:00 08/06/18 09:32 Cardizem Cd PO 360 mg DAILY KD Administration Famotidine 20 mg 08/05/18 22:00 08/05/18 21:50 Pepcid PO 20 mg HS KD Administration Meropenem 1 gm in 50 mls @ 100 mls/hr 08/01/18 22:00 08/06/18 09:33 Merrem Iv 1 Gm Premix IVPB 08/10/18 22:01 100 mls/hr Q12 KD Administration Protocol Dextrose 1,000 mls @ 0 mls/hr 08/01/18 23:07 Dextrose 5% In Water 1000 Ml IV .Q0M PRN Hypoglycemia Protocol Protocol Per Protocol Insulin Human Lispro 0 units 08/04/18 11:30 08/06/18 09:05 Humalog Low SC Not Given ACHS [facility] Protocol Levalbuterol HCl 1.25 mg 08/02/18 14:00 08/06/18 07:43 Xopenex IH 1.25 mg [id number] KD Administration Methylprednisolone 40 mg 08/05/18 10:00 08/06/18 09:32 Solu-Medrol IVP 40 mg Q12 KD Administration Metoprolol Succinate 25 mg 07/31/18 10:00 08/06/18 09:33 Toprol Xl PO 25 mg BID KD Administration Phenytoin Sodium 100 mg 08/04/18 14:00 08/06/18 09:33 Dilantin PO 100 mg TID KD Administration - Patient Studies Lab Studies: Microbiology Studies 08/01/18 21:40 Blood Culture - Preliminary Blood NO GROWTH AFTER 4 DAYS 08/01/18 22:07 Blood Culture - Preliminary Blood NO GROWTH AFTER 4 DAYS 08/03/18 08:06 Gram Stain - Final Trachasp Sputum Culture - Final No growth. Lab Studies 08/06/18 08/06/18 08/06/18 Range/Units 08:30 08:15 05:30 WBC (4.5-11.0) 10^3/uL RBC (3.5-6.1) 10^6/uL Hgb (14.0-18.0) g/dL Hct (42.0-52.0) % MCV (80.0-105.0) fl MCH (25.0-35.0) pg MCHC (31.0-37.0) g/dl RDW (11.5-14.5) % Plt Count (120.0-450.0) 10^3/uL MPV (7.0-11.0) fl pCO2 38 (35-45) mm/Hg pO2 90.0 (80-100) mm/Hg HCO3 25.8 (21-28) mmol/L ABG pH 7.44 (7.35-7.45) ABG Total CO2 27.0 (22-28) mmol.L ABG O2 Saturation 98.7 H (95-98) % ABG O2 Content 15.1 (15-23) ML/dl ABG Base Excess 1.6 (-2.0-3.0) mmol/L ABG Hemoglobin 11.1 L (11.7-17.4) g/dL ABG Carboxyhemoglobin 2.2 H (0.5-1.5) % POC ABG HHb (Measured) 1.3 (0-5) % ABG Methemoglobin 0.7 (0.0-3.0) % ABG O2 Capacity 15.3 L (16-24) mL/dl Hgb O2 Saturation 95.9 (95.0-98.0) % FiO2 40.0 % Sodium 138 (132-148) mmol/L Potassium 5.3 H (3.6-5.0) mmol/L Chloride 106 (98-107) mmol/L Carbon Dioxide 30 (21-33) mmol/L Anion Gap 8 L (10-20) BUN 48 H (7-21) mg/dL Creatinine 0.9 (0.8-1.5) mg/dl Est GFR ( Amer) > 60 Est GFR (Non-Af Amer) > 60 POC Glucose (mg/dL) (65-110) mg/dL Random Glucose 136 H (70-110) mg/dL Calcium 8.1 L (8.4-10.5) mg/dL Phosphorus (2.5-4.5) mg/dL Magnesium (1.7-2.2) mg/dL Total Bilirubin (0.2-1.3) mg/dL AST (17-59) U/L ALT (7-56) U/L Alkaline Phosphatase (38-126) U/L NT-Pro-B Natriuret Pep 6120 H (0-450) pg/mL Total Protein (5.8-8.3) g/dL Albumin (3.0-4.8) g/dL Globulin gm/dL Albumin/Globulin Ratio (1.1-1.8) Procalcitonin (0.19-0.49) NG/ML 08/06/18 08/06/18 08/05/18 Range/Units 05:30 05:30 22:00 WBC 5.1 D (4.5-11.0) 10^3/uL RBC 4.16 (3.5-6.1) 10^6/uL Hgb 12.1 L (14.0-18.0) g/dL Hct 40.1 L (42.0-52.0) % MCV 96.4 (80.0-105.0) fl MCH 29.1 (25.0-35.0) pg MCHC 30.2 L (31.0-37.0) g/dl RDW 15.5 H (11.5-14.5) % Plt Count 60 L (120.0-450.0) 10^3/uL MPV 9.1 (7.0-11.0) fl pCO2 (35-45) mm/Hg pO2 (80-100) mm/Hg HCO3 (21-28) mmol/L ABG pH (7.35-7.45) ABG Total CO2 (22-28) mmol.L ABG O2 Saturation (95-98) % ABG O2 Content (15-23) ML/dl ABG Base Excess (-2.0-3.0) mmol/L ABG Hemoglobin (11.7-17.4) g/dL ABG Carboxyhemoglobin (0.5-1.5) % POC ABG HHb (Measured) (0-5) % ABG Methemoglobin (0.0-3.0) % ABG O2 Capacity (16-24) mL/dl Hgb O2 Saturation (95.0-98.0) % FiO2 % Sodium 139 (132-148) mmol/L Potassium 5.7 H* (3.6-5.0) mmol/L Chloride 106 (98-107) mmol/L Carbon Dioxide 30 (21-33) mmol/L Anion Gap 9 L (10-20) BUN 49 H (7-21) mg/dL Creatinine 1.0 (0.8-1.5) mg/dl Est GFR ( Amer) > 60 Est GFR (Non-Af Amer) > 60 POC Glucose (mg/dL) 154 H (65-110) mg/dL Random Glucose 147 H (70-110) mg/dL Calcium 8.2 L (8.4-10.5) mg/dL Phosphorus 3.7 (2.5-4.5) mg/dL Magnesium 2.2 (1.7-2.2) mg/dL Total Bilirubin 0.8 (0.2-1.3) mg/dL AST 53 (17-59) U/L ALT 224 H (7-56) U/L Alkaline Phosphatase 61 (38-126) U/L NT-Pro-B Natriuret Pep (0-450) pg/mL Total Protein 4.7 L (5.8-8.3) g/dL Albumin 2.5 L (3.0-4.8) g/dL Globulin 2.2 gm/dL Albumin/Globulin Ratio 1.1 (1.1-1.8) Procalcitonin (0.19-0.49) NG/ML 08/05/18 08/05/18 08/05/18 Range/Units 15:46 11:28 09:00 WBC (4.5-11.0) 10^3/uL RBC (3.5-6.1) 10^6/uL Hgb (14.0-18.0) g/dL Hct (42.0-52.0) % MCV (80.0-105.0) fl MCH (25.0-35.0) pg MCHC (31.0-37.0) g/dl RDW (11.5-14.5) % Plt Count (120.0-450.0) 10^3/uL MPV (7.0-11.0) fl pCO2 (35-45) mm/Hg pO2 (80-100) mm/Hg HCO3 (21-28) mmol/L ABG pH (7.35-7.45) ABG Total CO2 (22-28) mmol.L ABG O2 Saturation (95-98) % ABG O2 Content (15-23) ML/dl ABG Base Excess (-2.0-3.0) mmol/L ABG Hemoglobin (11.7-17.4) g/dL ABG Carboxyhemoglobin (0.5-1.5) % POC ABG HHb (Measured) (0-5) % ABG Methemoglobin (0.0-3.0) % ABG O2 Capacity (16-24) mL/dl Hgb O2 Saturation (95.0-98.0) % FiO2 % Sodium (132-148) mmol/L Potassium (3.6-5.0) mmol/L Chloride (98-107) mmol/L Carbon Dioxide (21-33) mmol/L Anion Gap (10-20) BUN (7-21) mg/dL Creatinine (0.8-1.5) mg/dl Est GFR ( Amer) Est GFR (Non-Af Amer) POC Glucose (mg/dL) 114 H 196 H (65-110) mg/dL Random Glucose (70-110) mg/dL Calcium (8.4-10.5) mg/dL Phosphorus (2.5-4.5) mg/dL Magnesium (1.7-2.2) mg/dL Total Bilirubin (0.2-1.3) mg/dL AST (17-59) U/L ALT (7-56) U/L Alkaline Phosphatase (38-126) U/L NT-Pro-B Natriuret Pep (0-450) pg/mL Total Protein (5.8-8.3) g/dL Albumin (3.0-4.8) g/dL Globulin gm/dL Albumin/Globulin Ratio (1.1-1.8) Procalcitonin 0.25 (0.19-0.49) NG/ML 08/04/18 08/04/18 08/04/18 Range/Units 21:54 16:05 11:24 WBC (4.5-11.0) 10^3/uL RBC (3.5-6.1) 10^6/uL Hgb (14.0-18.0) g/dL Hct (42.0-52.0) % MCV (80.0-105.0) fl MCH (25.0-35.0) pg MCHC (31.0-37.0) g/dl RDW (11.5-14.5) % Plt Count (120.0-450.0) 10^3/uL MPV (7.0-11.0) fl pCO2 (35-45) mm/Hg pO2 (80-100) mm/Hg HCO3 (21-28) mmol/L ABG pH (7.35-7.45) ABG Total CO2 (22-28) mmol.L ABG O2 Saturation (95-98) % ABG O2 Content (15-23) ML/dl ABG Base Excess (-2.0-3.0) mmol/L ABG Hemoglobin (11.7-17.4) g/dL ABG Carboxyhemoglobin (0.5-1.5) % POC ABG HHb (Measured) (0-5) % ABG Methemoglobin (0.0-3.0) % ABG O2 Capacity (16-24) mL/dl Hgb O2 Saturation (95.0-98.0) % FiO2 % Sodium (132-148) mmol/L Potassium (3.6-5.0) mmol/L Chloride (98-107) mmol/L Carbon Dioxide (21-33) mmol/L Anion Gap (10-20) BUN (7-21) mg/dL Creatinine (0.8-1.5) mg/dl Est GFR ( Amer) Est GFR (Non-Af Amer) POC Glucose (mg/dL) 159 H 131 H 150 H (65-110) mg/dL Random Glucose (70-110) mg/dL Calcium (8.4-10.5) mg/dL Phosphorus (2.5-4.5) mg/dL Magnesium (1.7-2.2) mg/dL Total Bilirubin (0.2-1.3) mg/dL AST (17-59) U/L ALT (7-56) U/L Alkaline Phosphatase (38-126) U/L NT-Pro-B Natriuret Pep (0-450) pg/mL Total Protein (5.8-8.3) g/dL Albumin (3.0-4.8) g/dL Globulin gm/dL Albumin/Globulin Ratio (1.1-1.8) Procalcitonin (0.19-0.49) NG/ML Laboratory Results - last 24 hr 08/04/18 08/04/18 08/04/18 11:24 16:05 21:54 WBC RBC Hgb Hct MCV MCH MCHC RDW Plt Count MPV pCO2 pO2 HCO3 ABG pH ABG Total CO2 ABG O2 Saturation ABG O2 Content ABG Base Excess ABG Hemoglobin ABG Carboxyhemoglobin POC ABG HHb (Measured) ABG Methemoglobin ABG O2 Capacity Hgb O2 Saturation FiO2 Sodium Potassium Chloride Carbon Dioxide Anion Gap BUN Creatinine Est GFR ( Amer) Est GFR (Non-Af Amer) POC Glucose (mg/dL) 150 H 131 H 159 H Random Glucose Calcium Phosphorus Magnesium Total Bilirubin AST ALT Alkaline Phosphatase NT-Pro-B Natriuret Pep Total Protein Albumin Globulin Albumin/Globulin Ratio Procalcitonin 08/05/18 08/05/18 08/05/18 09:00 11:28 15:46 WBC RBC Hgb Hct MCV MCH MCHC RDW Plt Count MPV pCO2 pO2 HCO3 ABG pH ABG Total CO2 ABG O2 Saturation ABG O2 Content ABG Base Excess ABG Hemoglobin ABG Carboxyhemoglobin POC ABG HHb (Measured) ABG Methemoglobin ABG O2 Capacity Hgb O2 Saturation FiO2 Sodium Potassium Chloride Carbon Dioxide Anion Gap BUN Creatinine Est GFR ( Amer) Est GFR (Non-Af Amer) POC Glucose (mg/dL) 196 H 114 H Random Glucose Calcium Phosphorus Magnesium Total Bilirubin AST ALT Alkaline Phosphatase NT-Pro-B Natriuret Pep Total Protein Albumin Globulin Albumin/Globulin Ratio Procalcitonin 0.25 08/05/18 08/06/18 08/06/18 22:00 05:30 05:30 WBC 5.1 D RBC 4.16 Hgb 12.1 L Hct 40.1 L MCV 96.4 MCH 29.1 MCHC 30.2 L RDW 15.5 H Plt Count 60 L MPV 9.1 pCO2 pO2 HCO3 ABG pH ABG Total CO2 ABG O2 Saturation ABG O2 Content ABG Base Excess ABG Hemoglobin ABG Carboxyhemoglobin POC ABG HHb (Measured) ABG Methemoglobin ABG O2 Capacity Hgb O2 Saturation FiO2 Sodium 139 Potassium 5.7 H* Chloride 106 Carbon Dioxide 30 Anion Gap 9 L BUN 49 H Creatinine 1.0 Est GFR ( Amer) > 60 Est GFR (Non-Af Amer) > 60 POC Glucose (mg/dL) 154 H Random Glucose 147 H Calcium 8.2 L Phosphorus 3.7 Magnesium 2.2 Total Bilirubin 0.8 AST 53 ALT 224 H Alkaline Phosphatase 61 NT-Pro-B Natriuret Pep Total Protein 4.7 L Albumin 2.5 L Globulin 2.2 Albumin/Globulin Ratio 1.1 Procalcitonin 08/06/18 08/06/18 08/06/18 05:30 08:15 08:30 WBC RBC Hgb Hct MCV MCH MCHC RDW Plt Count MPV pCO2 38 pO2 90.0 HCO3 25.8 ABG pH 7.44 ABG Total CO2 27.0 ABG O2 Saturation 98.7 H ABG O2 Content 15.1 ABG Base Excess 1.6 ABG Hemoglobin 11.1 L ABG Carboxyhemoglobin 2.2 H POC ABG HHb (Measured) 1.3 ABG Methemoglobin 0.7 ABG O2 Capacity 15.3 L Hgb O2 Saturation 95.9 FiO2 40.0 Sodium 138 Potassium 5.3 H Chloride 106 Carbon Dioxide 30 Anion Gap 8 L BUN 48 H Creatinine 0.9 Est GFR ( Amer) > 60 Est GFR (Non-Af Amer) > 60 POC Glucose (mg/dL) Random Glucose 136 H Calcium 8.1 L Phosphorus Magnesium Total Bilirubin AST ALT Alkaline Phosphatase NT-Pro-B Natriuret Pep 6120 H Total Protein Albumin Globulin Albumin/Globulin Ratio Procalcitonin EKG/Cardiology Studies: Cardiology / EKG Studies 08/06/18 EKG [ELECTROCARDIOGRAM] Urgent Comment: Reason For Exam: hyperkalemia Critical Care Progress Note - Nutrition Nutrition: Nutrition Category Date Time Status Heart Healthy Diet [DIET] Diets 08/05/18 Dinner Active Addendum Addendum: 08/05/18 09:54 ICU ATTENDING : Patent seen and examined with housestaff on 08/05. Agree with progress note with following additions/exceptions: 82 M with hx of rectal cancer s/p total colectomy, zenker's diverticulum, thrombocytopenia, stent placement for AAA, seizure disorder, hypertension, hyperlipidemia, atrial fibrillation on eliquis s/p polyp removal with parastomal hernia repair, with multi organ failure, and lung collapse Extubated yesterday however today CXRs show again whiteout of left lung. Plan for bedside broch with intubation after hopeful to extubate post-bronch Afib rate controlled surgery has cleared patient to resume eliquis COPD - cont nebs, steroids 40mg daily JOHNNY improved, cont fluids feeding as per surgery GI ppx DVT ppx Cont to Monitor in MICU Yeni Keys MD MICU Attending Critical care time 35 minutes
--- NOTE | 2018-08-05 19:17 | PN ---
DATE: 08/05/2018 REASON FOR CONSULTATION AND FOLLOWUP: Postop followup status post right hemicolectomy, history of chronic atrial fibrillation, collapse of the lung multiple times status post bronchoscopy this morning status post bronchoscopy yesterday and reexpansion of the lung, again collapse of the lung this morning. SUBJECTIVE: Patient is on high-flow oxygen. Denies any chest pain, shortness of breath, or any palpitation. Appears to be though, appears to be mild short of breath. OBJECTIVE: GENERAL: Lying flat on the bed, appears mild short of breath. VITAL SIGNS: Temperature afebrile, heart rate 95, blood pressure 120/80. HEENT: PERRLA. Extraocular muscles intact. NECK: Supple. No carotid bruits or thyromegaly. CHEST: Clear to auscultation. HEART: S1, S2 regular. ABDOMEN: Soft. EXTREMITIES: Clubbing and cyanosis negative. LABORATORY DATA: Blood work up as follows: WBC 6.6, hemoglobin 12, hematocrit 39, platelet count 68. Chemistry shows sodium 139, potassium 4.8, chloride 105, carbon dioxide of 20, anion gap of 10, BUN 58, creatinine 1.2. IMPRESSION: An 82-year-old male with past medical history significant for chronic atrial fibrillation, history of colostomy, history of right hemicolectomy. Postop course complicated by collapse of the left lung multiple times secondary to mucus plug, intubated, now successfully extubated this morning. Patient's lungs have collapsed again. Discussed with Dr. Blevins, probably needs another bronchoscopy this morning. May need intubation after that. Patient was started yesterday on Eliquis. Discussed with the nurse and nursing staff. They will hold anticoagulation till the patient becomes completely hemodynamic and respiratory-mitchell stable so if the patient needs in future intubation or bronch, he will bleed. So we will hold anticoagulation for now. History of abdominal aortic aneurysm endovascular repair, history of stress test before normal. Preserved left ventricular function. Repeat echocardiogram was done yesterday that showed normal left ventricular function, ejection fraction 60-65% and atrial fibrillation, trace aortic regurgitation, no valvular aortic stenosis, moderate mitral regurgitation, redundant elongated chordae of mitral valve, moderate tricuspid regurgitation, right ventricular systolic pressure of 47, [id number] pulmonary insufficiency. RECOMMENDATIONS: Continue to hold as mentioned above Eliquis till the patient get complete respiratory status, stable and does not need any bronch. Possible bronchoscopy today. Continue Cardizem. If needed, we will give DVT prophylaxis, but we will hold today. After the bronchoscopy, we will reassess. Overall the patient's condition is critical. Long-term prognosis is guarded. I will follow with you. Thank you, Dr. Du/Dr. Fleming, for providing us the opportunity in taking care of the patient, Roshan Hale. Gladis Greenfield MD
--- NOTE | 2018-08-05 22:21 | OP ---
PROCEDURE DATE: 07/30/2018 SURGEON: Roacel Du MD WELLNESS PROGRAM ADMINISTRATOR: Prosper Cardenas DO, PGY 3 SECOND UTILITY WORKER DRIVER: Randolph Lawler DO, PGY 2 FENCE GATE ASSEMBLER: Eulalio López DO ANESTHESIA: General endotracheal - Exparel 20 mL. PREOPERATIVE DIAGNOSES: 1. 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 2. Gastrointestinal bleeding 3. Anticoagulation secondary to Eliquis treatment. 4. Idiopathic thrombocytopenic purpura. POSTOPERATIVE DIAGNOSES: 1. 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 2. Gastrointestinal bleeding 3. Anticoagulation secondary to Eliquis treatment. 4. Idiopathic thrombocytopenic purpura. 5. Extremely dense adhesions and paracolostomy hernia. PROCEDURE: 1. Laparotomy with a right hemicolectomy and anastomosis. 2. Extensive enterolysis. 3. Repair of a paracolostomy hernia. OPERATIVE INDICATIONS: The patient is an 82-year-old male who 18 years earlier had a abdominoperineal resection for rectal cancer and has had a GI bleed from his stoma that prompted his admission approximately 2 weeks earlier. His Eliquis anticoagulation for atrial fibrillation has stopped and the bleeding slowed down. He then developed infiltrates - congestion in his lung on the evening of admission and started significant hemoptysis which also stopped as well. During this period of time, he is recovering and has been persuaded to undergo colonoscopy due to the extreme high risk of a previous cancer and GI bleeding from his colon. The colonoscopy demonstrates a large villous tumor of the cecum and polypoid lesion a few centimeters above this. The patient also has a significant and symptomatic paracolostomy hernia which he has been hoping to have repair at some time. Over the past year, he has had several complications first of which was repair of abdominal aortic aneurysm by percutaneous interventional technique within graft leak that was corrected and then an obstruction of his esophagus due to impacting piece of meat and a Zenker's diverticulum and further pulmonary complications. 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 The patient initially was consulting with this surgeon changed his mind, asked for another surgeon and after that surgeon canceled the surgery twice and appeared somewhat reluctant to do the procedure, the patient changed his mind a third time and asked for this surgeon again who came, explained the risks, the benefits and the alternatives with their anticipated outcomes. The patient signed the informed consent expecting to obtain platelets preoperatively as necessary and the sales account director (Dr. Ledezma) explained all these to the patient. Preoperatively the patient has received a total of 4 units of blood and his hemoglobin is in the mid 10 range. Following the bowel preparation with a somewhat reluctant the patient, the patient is now to be brought to the operating room for semi-elective right hemicolectomy and if possible some management of his paracolostomy hernia. OPERATIVE NOTE: The patient was brought to the operating room, identified by his wrist band, undergoes time-out procedure and was placed in the operative table in a supine manner. Sequential compression devices placed on his lower extremities following the induction of general anesthesia and the insertion of an endotracheal tube. A Mcintosh catheter is inserted with some difficulty due to BPH and the abdomen is now prepped with Betadine allowed to dry and covered with elizabeth drape iodine impregnated adhesive plastic sheathing. The patient was then aseptically draped and a Bookwalter placed in position. Transverse incision is made at the level of the umbilicus from the umbilicus laterally and sharp dissection carried down through the subcutaneous tissues to the rectus musculature which was transected with cautery coagulating current and the peritoneum was entered between clamps. Extensive adhesions were found from presumptive ruptured appendix 50+ years earlier and with significant effort, the adhesions were carefully and sharply lysed. Cautery and LigaSure coagulation is utilized. The terminal ileum is trapped but the scar is freed with sharp dissection and transected just at the cecal level with the BARBARA stapler. The ascending colon and transverse colon were freed carefully and once the omentum is transected above the transverse colon, the transverse colon is transected with another BARBARA stapler. The intervening segment of mesocolon is now serially ligated with the LigaSure device. Extreme care is maintained to avoid any retroperitoneal structures such as ureters or duodenum and the specimen was carefully removed, placed off the operative field opened and examined confirming the presence of the large villous tumor in the cecal area and other polypoid structures in the right colon. The terminal ileum and the transverse colon were now secured with 3-0 silk seromuscular sutures and anastomosed in a grpn-wn-ysuy manner utilizing the BARBARA stapler. The defect created by same is closed with Allis clamps and a TA 60 stapler. The space between the transverse colon and the terminal ileum is now closed with running locking 2-0 chromic catgut suture to prevent herniation. The operating surgeons at this point changed their gloves, the area was lavaged with Clorpactin containing solution and allowed to stay for several minutes and then removed and hemostasis confirmed and controlled with dry laparotomy tapes. Adhesions to the colostomy are now addressed and sharply lysed with cautery and/or LigaSure. The paracolostomy hernia is most apparent on the lateral aspect for this from the operating surgeon and utilizing a Mikhail clamp, the fascial defect is closed with two lowqex-fy-hxock #1 Novafil sutures closing down the hernia defect. A Fabian 15-Telugu drain is inserted into the peritoneal cavity and advanced through the abdominal wall with trocar technique and secured to the skin with 2-0 polyester Surgidac suture. The drain was placed on the right gutter down into the pelvis and across slightly up the left gutter. The abdomen was closed in layers using 0 Polysorb for the peritoneum and interrupted iufkrm-iw-dlvmz #1 Novafils with buried knots for the anterior fascia. The subcutaneous space is now lavaged with saline, aspirated and hemostasis confirmed. Infiltration of the fascia and skin with the full strength Exparel was employed and the subcutaneous space closed with 3-0 Polysorb continuous suture and the skin with the AutoSuture skin stapler. A dry dressing is applied. The patient is awakened, extubated and transported to the recovery room in a satisfactory condition. Sponge, instrument and suture count were verified as correct at the end of the procedure. Estimated blood loss during this procedure was less than 100 mL of blood. This dictation will be electronically signed without being read. The surgical assistants were present throughout the procedure from beginning to end and were extremely beneficial in the dissection and anastomosis of the difficult patient with adhesions every where. Rocael Du MD
[2018-08-06] MEDS: Acetylcysteine 20% Inhal Soln (4ml) IH SCH ×4 (01:22→20:24)
[2018-08-06] MEDS: Ipratropium 0.02% Inhal Soln (0.5 mg/2.5 ml) UD IH SCH (01:22)
[2018-08-06] MEDS: Levalbuterol 1.25 MG/3 ML Inhal Soln UD IH SCH ×4 (01:22→20:25)
[2018-08-06] MEDS: Sodium Chloride 0.9% 1,000 ML IV SCH ×2 (04:42→06:10)
[2018-08-06 06:26] LABS: HEMOGLOBIN 12.1 g/dL (14.0-18.0); MEAN CELL VOLUME 96.4 fl (80.0-105.0); MEAN CORPUSCULAR HEMOGLOBIN 29.1 pg (25.0-35.0); MEAN CORPUSCULAR HGB CONC 30.2 g/dl (31.0-37.0); MEAN PLATELET VOLUME 9.1 fl (7.0-11.0); RBC 4.16 10^6/uL (3.5-6.1); RED CELL DISTRIBUTION WIDTH 15.5 % (11.5-14.5); WHITE BLOOD COUNT 5.1 10^3/uL (4.5-11.0)
[2018-08-06 06:50] LABS: ALB/GLOB RATIO 1.1 (1.1-1.8); ALBUMIN 2.5 g/dL (3.0-4.8); ALT/SGPT 224 U/L (7-56); AST/SGOT 53 U/L (17-59); BLOOD UREA NITROGEN 49 mg/dL (7-21); CALCIUM 8.2 mg/dL (8.4-10.5); GFR NON-AFRICAN AMERICAN > 60
--- NOTE | 2018-08-06 08:03 | PN ---
DATE: 08/06/2018([id number]) SUBJECTIVE: The patient appears comfortable this morning. He is not short of breath at rest. PHYSICAL EXAMINATION: VITAL SIGNS: Temperature is 98.6, pulse 83, respirations 16-18, blood pressure 127/74. Oxygen saturation on high-flow delivery is 97%. HEENT: Normocephalic, atraumatic. No JVD. CARDIOVASCULAR: Systolic ejection murmur at the lower left sternal border. Questionable S3 gallop. LUNGS: Much improved breath sounds - left lung. Minimal/less rhonchi. No wheezing. EXTREMITIES: Mild edema. No cyanosis, no clubbing. Calves are nontender to palpation. GASTROINTESTINAL: Abdomen is postoperative.. It is soft, nondistended, and mildly tender to palpation. SKIN: No acute rash. NEUROLOGIC: Limited at the present time. PERTINENT LABORATORY DATA: Chest x-ray was done this morning and reviewed. The chest x-ray today is significantly improved - compared to yesterday - with a significant increase in the aeration noted to the left lung. There appears to be minimal pleural effusion and some minimal atelectasis noted at the left base. There are also streaky changes noted at the right base. There is also vxnq-qt-gulysgsv increase in pulmonary vascular congestion. Arterial blood gas was also ordered for this morning - pending. IMPRESSION: 1. Recurrent left lung atelectasis - now resolved. 2. Chronic obstructive pulmonary disease. 3. Congestive heart failure. 4. Small bilateral pleural effusions. 5. Atrial fibrillation. 6. Status post right hemicolectomy. 7. Anemia, thrombocytopenia. PLAN: The patient remains in the ICU. He appears comfortable. He is not short of breath. He does state to feeling much better overall. I did discuss the case with the night nurse at length. The night nurse stated that the patient had a very good night. I did review the chest x-ray from today. The chest x-ray is significantly improved compared to yesterday's film. Findings are noted above. The patient is status post his second bronchoscopy. I did discuss the procedure with Dr. Yeni Keys (administrative assistant receptionist) at length yesterday. I have also ordered a B-type natriuretic peptide to be done this morning. The patient may need some Lasix therapy. On physical exam, his bronchospasm is much less. I will continue with the current nebulizer treatments, aggressive pulmonary toilet, and low-dose intravenous steroids for now. I would continue with the antibiotic coverage as per Infectious Disease. Input by Dr. Garvin is noted. Temperatures have now fully resolved. The leukocytosis has also fully resolved. Inputs by Cardiology and Surgery are also noted. Clinical status of the patient is significantly improved - compared to the beginning of the week. However, again, the future status/prognosis for this patient remains very guarded. I will discuss the above the entire ICU team in the next few moments. I will also discuss the above with Dr. Du later this morning. Rosalio Blevins MD MTDD
[2018-08-06 08:32] LABS: BLOOD UREA NITROGEN 48 mg/dL (7-21); GFR NON-AFRICAN AMERICAN > 60
[2018-08-06 08:33] LABS: CALCIUM 8.1 mg/dL (8.4-10.5)
[2018-08-06 08:33] LABS: ARTERIAL BLOOD GAS HCO3 25.8 mmol/L (21-28); ARTERIAL BLOOD GAS HEMOGLOBIN 11.1 g/dL (11.7-17.4); ARTERIAL BLOOD GAS O2 CAPACITY 15.3 mL/dl (16-24); ARTERIAL BLOOD GAS O2 CONTENT 15.1 ML/dl (15-23); ARTERIAL BLOOD GAS O2 SAT 98.7 % (95-98); ARTERIAL BLOOD GAS PCO2 38 mm/Hg (35-45); ARTERIAL BLOOD GAS PH 7.44 (7.35-7.45)
[2018-08-06] MEDS ORDERED: Sod Polystyrene Sulf 15 gm/60 ml Susp PO ONE ×2 (08:54→09:00)
[2018-08-06] MEDS: Insulin Lispro (humaLOG) LOW Coverage SC SCH ×4 (09:05→21:52)
--- NOTE | 2018-08-06 09:14 | PN ---
DATE: 08/05/2018 SUBJECTIVE: Patient is 82 years old who was initially admitted with GI bleed. Had colonoscopy done shows cecal villous adenoma, underwent partial colectomy. Post-procedure developed total left white out. Patient was bronched and intubated and was successfully extubated next day. Patient is still having shortness of breath although he is not desaturating, but his x-ray shows complete opacification of left hemithorax related to left lung collapse. Patient is scheduled with bronch and possible intubation today. PHYSICAL EXAMINATION: GENERAL: He is awake, alert, oriented, able to communicate. VITAL SIGNS: He is afebrile, pulse 97, respiration 19, blood pressure 141/81. LUNGS: Has good airflow in the right upper and middle lung area and he has decreased breath sound in the left upper and middle lung area. HEART: S1, S2 audible, irregular, rate controlled. ABDOMEN: Soft. His colostomy has brownish liquid. LABORATORY EXAMINATION: WBC 6.6, hemoglobin 12, hematocrit 39, platelet of 68. Chemistry: Sodium 139, potassium 4.8, chloride 105, CO2 29, BUN 58, creatinine 1.2, blood sugar of 96, AST 108, ALT 324. Blood cultures and urine cultures are negative. ASSESSMENT: 1. Status post partial colectomy. 2. History of seizure disorder. 3. Left lung mucous plug causing respiratory insufficiency. 4. Thrombocytopenia. 5. Chronic obstructive pulmonary disease. 6. Congestive heart failure. PLAN: Patient is scheduled to have bronchoscopy done and possible intubation and patient will remain in ICU . Tri Fleming MD
[2018-08-06] MEDS: MethylPREDNISolone 40 mg Vial IVP SCH ×2 (09:32→21:41)
[2018-08-06] MEDS: diltiaZEM 180 mg/24 Hours CD Cap PO SCH (09:32)
[2018-08-06] MEDS: Metoprolol Succinate 25 mg XL Tab PO SCH ×4 (09:33→18:24)
[2018-08-06] MEDS: Meropenem IV 1 gm in NS 1 GM/50 ML BAG IVPB SCH ×2 (09:33→21:40)
[2018-08-06] MEDS ORDERED: Dextrose 50% SYRINGE Inj (50 ml) IVP ONE (09:51)
[2018-08-06] MEDS ORDERED: Insulin Regular 1 UNITS/0.01 ML ML SC ONE (09:54)
--- NOTE | 2018-08-06 10:15 | RAD ---
Date of service: 08/05/2018 HISTORY: s/p bronchoscopy COMPARISON: August 05, 2018Study was performed at 06:18. FINDINGS: LUNGS: Improved aeration of the left lung following bronchoscopic procedure. Residual consolidative changes primarily affecting the left lower lobe. PLEURA: No significant pleural effusion identified, no pneumothorax apparent. CARDIOVASCULAR: Atherosclerotic calcifications identified primarily aortic arch. No radiographic findings to suggest acute or significant cardiovascular disease. OSSEOUS STRUCTURES: No significant abnormalities. VISUALIZED UPPER ABDOMEN: Normal. OTHER FINDINGS: None. IMPRESSION: Substantial improvement in aeration particularly the left upper lobe compared to the prior pre bronchoscopy study.
--- NOTE | 2018-08-06 10:18 | PN ---
DATE: 08/06/2018 SUBJECTIVE: The patient is in bed, in no acute distress, nontoxic. PHYSICAL EXAMINATION: VITAL SIGNS: On exam, temperature is 98, blood pressure is 120/80, respiratory rate of 18. HEENT: Examination of HEENT is unremarkable. NECK: Supple. LUNGS: Have decreased breath sounds. HEART: Normal S1, S2. ABDOMEN: Soft. LABORATORY DATA: Laboratory examination reveals a white count 5.1, hemoglobin of 12 with hematocrit of 40, platelets are down to 60. The chemistries are reviewed. BMP is 6000. Urinalysis is noted. Hepatitis profile is negative. Microbiology reveals the urine cultures are not available. Blood cultures are no growth. Nares MRSA is negative. The trach cultures are no growth. Dr. Blevins's note is reviewed from this morning. Review of orders reveals the patient to be on meropenem. ASSESSMENT AND PLAN: This is an 82-year-old male with severe sepsis, left-sided healthcare-associated pneumonia, acute kidney injury, respiratory failure, intubated on a ventilator, now the patient is extubated, comfortable, doing much better, status post bronchoscopy. Today is day #6 of meropenem, would complete 4-7 days of antibiotics. Thus far, the cultures are negative. The patient's procalcitonin is down from 1.44 to 0.25. We will be discontinuing the antibiotic in the next 24 hours. Jason Garvin MD
--- NOTE | 2018-08-06 10:22 | RAD ---
Date of service: 08/06/2018 HISTORY: f/u COMPARISON: Multiple serial examinations preceding the most recent study: August 05, 2018. Study performed 15:48. FINDINGS: LUNGS: Interval improvement in atelectasis the left lung. Portions of the lingula and left lower lobe remain atelectatic. Alveolar consolidative changes and parabronchial thickening suggests a component of superimposed pulmonary vascular congestion. PLEURA: Left pleural effusion inseparable from left lower lobe atelectasis. CARDIOVASCULAR: Atherosclerotic calcifications identified primarily aortic arch. Stable cardiomegaly. OSSEOUS STRUCTURES: No significant abnormalities. VISUALIZED UPPER ABDOMEN: Normal. OTHER FINDINGS: None. IMPRESSION: Continued interval re-expansion left lung. New superimposed pulmonary vascular congestion.
--- NOTE | 2018-08-06 11:24 | CARD ---
APPROVED REPORT Date of service: 08/06/2018 EKG Measurement Heart [id number] <Conclusion> Atrial flutter with variable AV block Low voltage QRS limb leads Possible anterior GA, age unknown STTW changes: less T wave inversion V 4 - 6 QRS axis shift c/w 08/02/18 ECG
--- NOTE | 2018-08-06 13:26 | PN ---
DATE: 08/06/2018 REASON FOR CONSULTATION AND FOLLOWUP: Status post right hemicolectomy, status post collapse of the lung multiple times, history of chronic atrial fibrillation, who was on Eliquis in the whole postop period. SUBJECTIVE: The patient denies any chest pain, shortness of breath, or any palpitations. The patient denies any apparent distress. PHYSICAL EXAMINATION: GENERAL: The patient is awake and alert. VITAL SIGNS: Temperature afebrile, heart rate 83, and blood pressure 130/88. HEENT: PERRLA. Extraocular muscles intact. NECK: Supple. No carotid bruits or thyromegaly. CHEST: Good air entry, better than before, except decreased at the left base. ABDOMEN: Soft. Colostomy bag in position. EXTREMITIES: Clubbing and cyanosis negative. LABORATORY DATA: Blood workup: WBC 5.1, hemoglobin 12.2, hematocrit 40.1, and platelet count 60. Chemistry shows sodium 113, potassium 5.7, chloride 106, carbon dioxide of 30, anion gap of 9, BUN 49, creatinine 1, BNP 6.2. IMPRESSION: Hyperkalemia, elevated brain natriuretic peptide, history of chronic atrial fibrillation, was on Eliquis, on hold because of status post abdominal surgery, status post multiple times left lung collapse, status post re-bronchoscopy, status post intubated, now is extubated, history of colon cancer, status post colostomy, recent right hemicolectomy, history of abdominal aortic aneurysm, status post endovascular repair. RECOMMENDATIONS: Continue to hold Eliquis until the respiratory status is stabilized, then restart anticoagulation for atrial fibrillation. Discontinue IV fluids. The patient is taking p.o. Most recent echo report the day before yesterday showed ejection fraction of 65% atrial fibrillation, trace aortic regurgitation, no valvular aortic stenosis, moderate mitral regurgitation, redundant elongated chordae of mitral valve, moderate tricuspid regurgitation, RV systolic pressure 47. We will restart potassium and if repeat potassium is more than 5, we will give Kayexalate. We will follow with you. Gladis Greenfield MD [place]
--- NOTE | 2018-08-06 14:48 | CP.CCUPN ---
<Heather Adamson - Last Filed: 08/06/18 15:00> CCU Subjective - Physician Review Subjective (Free Text): CRITICAL CARE PROGRESS NOTE FOR DR. JULIANA Adamson PGY1 Pt was seen and examined this am. Resting comfortably on high flow oxygen. He reported no acute complaints. No acute nursing events overnight. He was tolerating his diet. 12 point ROS is negative. CCU Objective - Vital Signs / Intake & Output Vital Signs (Last 4 hours): Vital Signs Temp Pulse BP 08/06/18 12:17 102 H 08/06/18 12:00 97.3 F L 08/06/18 11:27 133/74 Intake and Output (Last 8hrs): Intake & Output 08/05/18 08/06/18 08/06/18 22:59 06:59 14:59 Intake Total 340 1230 Output Total 1310 1120 Balance -970 110 Weight 143 lb Intake: IV 890 Left Hand 890 Oral 240 240 Other 100 100 Output: Drainage 360 370 Right Abdomen 360 370 Urine 950 750 Straight 950 750 Emesis 0 - Physical Exam Head: Positive for: Atraumatic, Normocephalic Pupils: Positive for: PERRL Extroacular Muscles: Positive for: EOMI Conjunctiva: Positive for: Normal Mouth: Positive for: Moist Mucous Membranes Pharnyx: Positive for: Normal Neck: Positive for: Normal Range of Motion Respiratory/Chest: Positive for: Clear to Auscultation, Good Air Exchange. Negative for: Respiratory Distress Cardiovascular: Positive for: Other (irregularly irregular rhythm) Abdomen: Positive for: Normal Bowel Sounds, Other (+colostomy). Negative for: Tenderness, Distention Genitourinary Male: Positive for: Prostate Tenderness Upper Extremity: Positive for: Normal Inspection Lower Extremity: Positive for: Normal Inspection. Negative for: Edema Neurological: Positive for: GCS=15, Speech Normal Skin: Positive for: Warm, Dry, Normal Color Psychiatric: Positive for: Alert, Oriented x 3, Normal Insight, Normal Concentration - Medications Active Medications: Active Medications Generic Name Dose Route Start Last Admin Trade Name Freq PRN Reason Stop Dose Admin Acetylcysteine 4 ml 08/04/18 13:00 08/06/18 13:00 Acetylcysteine 20% IH 4 ml [id number] KD Administration Apixaban 2.5 mg 08/04/18 18:00 08/04/18 18:51 Eliquis PO 2.5 mg BID KD Administration Dextrose 0 ml 08/01/18 23:07 Dextrose 50% Inj IV STAT PRN Hypoglycemia Protocol Protocol Diltiazem HCl 360 mg 07/31/18 10:00 08/06/18 09:32 Cardizem Cd PO 360 mg DAILY KD Administration Famotidine 20 mg 08/05/18 22:00 08/05/18 21:50 Pepcid PO 20 mg HS KD Administration Meropenem 1 gm in 50 mls @ 100 mls/hr 08/01/18 22:00 08/06/18 09:33 Merrem Iv 1 Gm Premix IVPB 08/10/18 22:01 100 mls/hr Q12 KD Administration Protocol Dextrose 1,000 mls @ 0 mls/hr 08/01/18 23:07 Dextrose 5% In Water 1000 Ml IV .Q0M PRN Hypoglycemia Protocol Protocol Per Protocol Insulin Human Lispro 0 units 08/04/18 11:30 08/06/18 13:27 Humalog Low SC Not Given ACHS KD Protocol Levalbuterol HCl 1.25 mg 08/02/18 14:00 08/06/18 13:00 Xopenex IH 1.25 mg [id number] KD Administration Methylprednisolone 40 mg 08/05/18 10:00 08/06/18 09:32 Solu-Medrol IVP 40 mg Q12 KD Administration Metoprolol Succinate 25 mg 07/31/18 10:00 08/06/18 09:33 Toprol Xl PO 25 mg BID KD Administration Phenytoin Sodium 100 mg 08/04/18 14:00 08/06/18 13:29 Dilantin PO 100 mg TID KD Administration - Patient Studies Lab Studies: Microbiology Studies 08/03/18 21:46 Gram Stain - Final Sputum Induced Sputum Culture - Final No growth. 08/01/18 21:40 Blood Culture - Preliminary Blood NO GROWTH AFTER 4 DAYS 08/01/18 22:07 Blood Culture - Preliminary Blood NO GROWTH AFTER 4 DAYS Lab Studies 08/06/18 08/06/18 08/06/18 Range/Units 08:30 08:15 05:30 WBC (4.5-11.0) 10^3/uL RBC (3.5-6.1) 10^6/uL Hgb (14.0-18.0) g/dL Hct (42.0-52.0) % MCV (80.0-105.0) fl MCH (25.0-35.0) pg MCHC (31.0-37.0) g/dl RDW (11.5-14.5) % Plt Count (120.0-450.0) 10^3/uL MPV (7.0-11.0) fl pCO2 38 (35-45) mm/Hg pO2 90.0 (80-100) mm/Hg HCO3 25.8 (21-28) mmol/L ABG pH 7.44 (7.35-7.45) ABG Total CO2 27.0 (22-28) mmol.L ABG O2 Saturation 98.7 H (95-98) % ABG O2 Content 15.1 (15-23) ML/dl ABG Base Excess 1.6 (-2.0-3.0) mmol/L ABG Hemoglobin 11.1 L (11.7-17.4) g/dL ABG Carboxyhemoglobin 2.2 H (0.5-1.5) % POC ABG HHb (Measured) 1.3 (0-5) % ABG Methemoglobin 0.7 (0.0-3.0) % ABG O2 Capacity 15.3 L (16-24) mL/dl Hgb O2 Saturation 95.9 (95.0-98.0) % FiO2 40.0 % Sodium 138 (132-148) mmol/L Potassium 5.3 H (3.6-5.0) mmol/L Chloride 106 (98-107) mmol/L Carbon Dioxide 30 (21-33) mmol/L Anion Gap 8 L (10-20) BUN 48 H (7-21) mg/dL Creatinine 0.9 (0.8-1.5) mg/dl Est GFR ( Amer) > 60 Est GFR (Non-Af Amer) > 60 POC Glucose (mg/dL) (65-110) mg/dL Random Glucose 136 H (70-110) mg/dL Calcium 8.1 L (8.4-10.5) mg/dL Phosphorus (2.5-4.5) mg/dL Magnesium (1.7-2.2) mg/dL Total Bilirubin (0.2-1.3) mg/dL AST (17-59) U/L ALT (7-56) U/L Alkaline Phosphatase (38-126) U/L NT-Pro-B Natriuret Pep 6120 H (0-450) pg/mL Total Protein (5.8-8.3) g/dL Albumin (3.0-4.8) g/dL Globulin gm/dL Albumin/Globulin Ratio (1.1-1.8) Procalcitonin (0.19-0.49) NG/ML 08/06/18 08/06/18 08/05/18 Range/Units 05:30 05:30 22:00 WBC 5.1 D (4.5-11.0) 10^3/uL RBC 4.16 (3.5-6.1) 10^6/uL Hgb 12.1 L (14.0-18.0) g/dL Hct 40.1 L (42.0-52.0) % MCV 96.4 (80.0-105.0) fl MCH 29.1 (25.0-35.0) pg MCHC 30.2 L (31.0-37.0) g/dl RDW 15.5 H (11.5-14.5) % Plt Count 60 L (120.0-450.0) 10^3/uL MPV 9.1 (7.0-11.0) fl pCO2 (35-45) mm/Hg pO2 (80-100) mm/Hg HCO3 (21-28) mmol/L ABG pH (7.35-7.45) ABG Total CO2 (22-28) mmol.L ABG O2 Saturation (95-98) % ABG O2 Content (15-23) ML/dl ABG Base Excess (-2.0-3.0) mmol/L ABG Hemoglobin (11.7-17.4) g/dL ABG Carboxyhemoglobin (0.5-1.5) % POC ABG HHb (Measured) (0-5) % ABG Methemoglobin (0.0-3.0) % ABG O2 Capacity (16-24) mL/dl Hgb O2 Saturation (95.0-98.0) % FiO2 % Sodium 139 (132-148) mmol/L Potassium 5.7 H* (3.6-5.0) mmol/L Chloride 106 (98-107) mmol/L Carbon Dioxide 30 (21-33) mmol/L Anion Gap 9 L (10-20) BUN 49 H (7-21) mg/dL Creatinine 1.0 (0.8-1.5) mg/dl Est GFR ( Amer) > 60 Est GFR (Non-Af Amer) > 60 POC Glucose (mg/dL) 154 H (65-110) mg/dL Random Glucose 147 H (70-110) mg/dL Calcium 8.2 L (8.4-10.5) mg/dL Phosphorus 3.7 (2.5-4.5) mg/dL Magnesium 2.2 (1.7-2.2) mg/dL Total Bilirubin 0.8 (0.2-1.3) mg/dL AST 53 (17-59) U/L ALT 224 H (7-56) U/L Alkaline Phosphatase 61 (38-126) U/L NT-Pro-B Natriuret Pep (0-450) pg/mL Total Protein 4.7 L (5.8-8.3) g/dL Albumin 2.5 L (3.0-4.8) g/dL Globulin 2.2 gm/dL Albumin/Globulin Ratio 1.1 (1.1-1.8) Procalcitonin (0.19-0.49) NG/ML 08/05/18 08/05/18 Range/Units 15:46 09:00 WBC (4.5-11.0) 10^3/uL RBC (3.5-6.1) 10^6/uL Hgb (14.0-18.0) g/dL Hct (42.0-52.0) % MCV (80.0-105.0) fl MCH (25.0-35.0) pg MCHC (31.0-37.0) g/dl RDW (11.5-14.5) % Plt Count (120.0-450.0) 10^3/uL MPV (7.0-11.0) fl pCO2 (35-45) mm/Hg pO2 (80-100) mm/Hg HCO3 (21-28) mmol/L ABG pH (7.35-7.45) ABG Total CO2 (22-28) mmol.L ABG O2 Saturation (95-98) % ABG O2 Content (15-23) ML/dl ABG Base Excess (-2.0-3.0) mmol/L ABG Hemoglobin (11.7-17.4) g/dL ABG Carboxyhemoglobin (0.5-1.5) % POC ABG HHb (Measured) (0-5) % ABG Methemoglobin (0.0-3.0) % ABG O2 Capacity (16-24) mL/dl Hgb O2 Saturation (95.0-98.0) % FiO2 % Sodium (132-148) mmol/L Potassium (3.6-5.0) mmol/L Chloride (98-107) mmol/L Carbon Dioxide (21-33) mmol/L Anion Gap (10-20) BUN (7-21) mg/dL Creatinine (0.8-1.5) mg/dl Est GFR ( Amer) Est GFR (Non-Af Amer) POC Glucose (mg/dL) 114 H (65-110) mg/dL Random Glucose (70-110) mg/dL Calcium (8.4-10.5) mg/dL Phosphorus (2.5-4.5) mg/dL Magnesium (1.7-2.2) mg/dL Total Bilirubin (0.2-1.3) mg/dL AST (17-59) U/L ALT (7-56) U/L Alkaline Phosphatase (38-126) U/L NT-Pro-B Natriuret Pep (0-450) pg/mL Total Protein (5.8-8.3) g/dL Albumin (3.0-4.8) g/dL Globulin gm/dL Albumin/Globulin Ratio (1.1-1.8) Procalcitonin 0.25 (0.19-0.49) NG/ML Laboratory Results - last 24 hr 08/05/18 08/05/18 08/05/18 09:00 15:46 22:00 WBC RBC Hgb Hct MCV MCH MCHC RDW Plt Count MPV pCO2 pO2 HCO3 ABG pH ABG Total CO2 ABG O2 Saturation ABG O2 Content ABG Base Excess ABG Hemoglobin ABG Carboxyhemoglobin POC ABG HHb (Measured) ABG Methemoglobin ABG O2 Capacity Hgb O2 Saturation FiO2 Sodium Potassium Chloride Carbon Dioxide Anion Gap BUN Creatinine Est GFR ( Amer) Est GFR (Non-Af Amer) POC Glucose (mg/dL) 114 H 154 H Random Glucose Calcium Phosphorus Magnesium Total Bilirubin AST ALT Alkaline Phosphatase NT-Pro-B Natriuret Pep Total Protein Albumin Globulin Albumin/Globulin Ratio Procalcitonin 0.25 08/06/18 08/06/18 08/06/18 05:30 05:30 05:30 WBC 5.1 D RBC 4.16 Hgb 12.1 L Hct 40.1 L MCV 96.4 MCH 29.1 MCHC 30.2 L RDW 15.5 H Plt Count 60 L MPV 9.1 pCO2 pO2 HCO3 ABG pH ABG Total CO2 ABG O2 Saturation ABG O2 Content ABG Base Excess ABG Hemoglobin ABG Carboxyhemoglobin POC ABG HHb (Measured) ABG Methemoglobin ABG O2 Capacity Hgb O2 Saturation FiO2 Sodium 139 Potassium 5.7 H* Chloride 106 Carbon Dioxide 30 Anion Gap 9 L BUN 49 H Creatinine 1.0 Est GFR ( Amer) > 60 Est GFR (Non-Af Amer) > 60 POC Glucose (mg/dL) Random Glucose 147 H Calcium 8.2 L Phosphorus 3.7 Magnesium 2.2 Total Bilirubin 0.8 AST 53 ALT 224 H Alkaline Phosphatase 61 NT-Pro-B Natriuret Pep 6120 H Total Protein 4.7 L Albumin 2.5 L Globulin 2.2 Albumin/Globulin Ratio 1.1 Procalcitonin 08/06/18 08/06/18 08:15 08:30 WBC RBC Hgb Hct MCV MCH MCHC RDW Plt Count MPV pCO2 38 pO2 90.0 HCO3 25.8 ABG pH 7.44 ABG Total CO2 27.0 ABG O2 Saturation 98.7 H ABG O2 Content 15.1 ABG Base Excess 1.6 ABG Hemoglobin 11.1 L ABG Carboxyhemoglobin 2.2 H POC ABG HHb (Measured) 1.3 ABG Methemoglobin 0.7 ABG O2 Capacity 15.3 L Hgb O2 Saturation 95.9 FiO2 40.0 Sodium 138 Potassium 5.3 H Chloride 106 Carbon Dioxide 30 Anion Gap 8 L BUN 48 H Creatinine 0.9 Est GFR ( Amer) > 60 Est GFR (Non-Af Amer) > 60 POC Glucose (mg/dL) Random Glucose 136 H Calcium 8.1 L Phosphorus Magnesium Total Bilirubin AST ALT Alkaline Phosphatase NT-Pro-B Natriuret Pep Total Protein Albumin Globulin Albumin/Globulin Ratio Procalcitonin EKG/Cardiology Studies: Cardiology / EKG Studies 08/06/18 EKG [ELECTROCARDIOGRAM] Urgent Comment: Reason For Exam: hyperkalemia Fingerstick Blood Sugar Results: 154 Critical Care Progress Note - Nutrition Nutrition: Nutrition Category Date Time Status Heart Healthy Diet [DIET] Diets 08/05/18 Dinner Active Assessment/Plan - Assessment and Plan (Free Text) Assessment: 82 y/o M with PMHx of COPD, extensive smoking history, Afib on eliquis, chronic thrombocytopenia, AAA s/p aortic stent, seizure disorder, rectal CA s/p total colectomy, zenker diverticulum, HTN, HLD admitted to the hospital s/p polyp removal with parastomal hernia repair. Post-operatively, he was found to have a collapse L lung on xray, likely secondary to mucous plugging. Pt is s/p bedside bronchoscopy with lavage on 08/03 with removal of thick mucous secretions. He was intubated for bronchoscopy, and subsequently extubated on 08/04 and placed on BiPAP. Currently being closely monitored this am on high flow O2 at 50L with FiO2 40%. Pt went bronchoscopy w/ lavage 08/05/18. He was sedated, intubated. Post-procedure chest x-ray improved. He will be monitored in ICU for a few days. Plan: Neuro/Psych: s/p second bronchoscopy done on 08/05/18 AxO x3, following commands, opens eyes spontaneously Hx of seizures continue phenytoin Reorient as necessary Cardio Afib on eliquis HR @90-100s cardizem 360 daily metoprolol 25 bid Per surgery rec, eliquis resumed Monitor H/H Pulmonary s/p bronchoscopy w/ lavage 08/05. Mucus plugs removed extubated, on HF O2 f/u xray post bronchoscopy revealed improved aeration of L lung COPD Xopenex q6h Acetylcysteine 4ml IH q6h Solu-medrol 40mg IVP daily Saturating well on high-flow Aggressive chest PT sputum cultures (-) GI S/p R hemicolectomy and parastoma hernioraphy Colostomy bag in place, draining pink fluid Monitor for signs of overt bleeding Hx of rectal ca s/p total colectomy /Renal JOHNNY: BUN improved from yesterday. Cr wnl today Heme H/H stable Tranfuse if Hgb <8 Continue eliquis ID Meropenem(08/01) x 9days sputum culture (-) DVT/GI PPx: Lovenox/Pepcid Case seen, examined and discussed with attending physician, Dr. Keys <Yeni Keys - Last Filed: 08/06/18 15:11> CCU Objective - Vital Signs / Intake & Output Vital Signs (Last 4 hours): Vital Signs Temp Pulse BP 08/06/18 12:17 102 H 08/06/18 12:00 97.3 F L 08/06/18 11:27 133/74 Intake and Output (Last 8hrs): Intake & Output 08/06/18 08/06/18 08/06/18 06:59 14:59 22:59 Intake Total 1230 Output Total 1120 Balance 110 Weight 64.864 kg Intake: IV 890 Left Hand 890 Oral 240 Other 100 Output: Drainage 370 Right Abdomen 370 Urine 750 Straight 750 Emesis 0 - Medications Active Medications: Active Medications Generic Name Dose Route Start Last Admin Trade Name Freq PRN Reason Stop Dose Admin Acetylcysteine 4 ml 08/04/18 13:00 08/06/18 13:00 Acetylcysteine 20% IH 4 ml [id number] KD Administration Apixaban 2.5 mg 08/04/18 18:00 08/04/18 18:51 Eliquis PO 2.5 mg BID KD Administration Dextrose 0 ml 08/01/18 23:07 Dextrose 50% Inj IV STAT PRN Hypoglycemia Protocol Protocol Diltiazem HCl 360 mg 07/31/18 10:00 08/06/18 09:32 Cardizem Cd PO 360 mg DAILY KD Administration Famotidine 20 mg 08/05/18 22:00 08/05/18 21:50 Pepcid PO 20 mg HS KD Administration Meropenem 1 gm in 50 mls @ 100 mls/hr 08/01/18 22:00 08/06/18 09:33 Merrem Iv 1 Gm Premix IVPB 08/10/18 22:01 100 mls/hr Q12 KD Administration Protocol Dextrose 1,000 mls @ 0 mls/hr 08/01/18 23:07 Dextrose 5% In Water 1000 Ml IV .Q0M PRN Hypoglycemia Protocol Protocol Per Protocol Insulin Human Lispro 0 units 08/04/18 11:30 08/06/18 13:27 Humalog Low SC Not Given ACHS [facility] Protocol Levalbuterol HCl 1.25 mg 08/02/18 14:00 08/06/18 13:00 Xopenex IH 1.25 mg [id number] KD Administration Methylprednisolone 40 mg 08/05/18 10:00 08/06/18 09:32 Solu-Medrol IVP 40 mg Q12 KD Administration Metoprolol Succinate 25 mg 07/31/18 10:00 08/06/18 09:33 Toprol Xl PO 25 mg BID KD Administration Phenytoin Sodium 100 mg 08/04/18 14:00 08/06/18 13:29 Dilantin PO 100 mg TID KD Administration - Patient Studies Lab Studies: Microbiology Studies 08/03/18 21:46 Gram Stain - Final Sputum Induced Sputum Culture - Final No growth. 08/01/18 21:40 Blood Culture - Preliminary Blood NO GROWTH AFTER 4 DAYS 08/01/18 22:07 Blood Culture - Preliminary Blood NO GROWTH AFTER 4 DAYS Lab Studies 08/06/18 08/06/18 08/06/18 Range/Units 08:30 08:15 05:30 WBC (4.5-11.0) 10^3/uL RBC (3.5-6.1) 10^6/uL Hgb (14.0-18.0) g/dL Hct (42.0-52.0) % MCV (80.0-105.0) fl MCH (25.0-35.0) pg MCHC (31.0-37.0) g/dl RDW (11.5-14.5) % Plt Count (120.0-450.0) 10^3/uL MPV (7.0-11.0) fl pCO2 38 (35-45) mm/Hg pO2 90.0 (80-100) mm/Hg HCO3 25.8 (21-28) mmol/L ABG pH 7.44 (7.35-7.45) ABG Total CO2 27.0 (22-28) mmol.L ABG O2 Saturation 98.7 H (95-98) % ABG O2 Content 15.1 (15-23) ML/dl ABG Base Excess 1.6 (-2.0-3.0) mmol/L ABG Hemoglobin 11.1 L (11.7-17.4) g/dL ABG Carboxyhemoglobin 2.2 H (0.5-1.5) % POC ABG HHb (Measured) 1.3 (0-5) % ABG Methemoglobin 0.7 (0.0-3.0) % ABG O2 Capacity 15.3 L (16-24) mL/dl Hgb O2 Saturation 95.9 (95.0-98.0) % FiO2 40.0 % Sodium 138 (132-148) mmol/L Potassium 5.3 H (3.6-5.0) mmol/L Chloride 106 (98-107) mmol/L Carbon Dioxide 30 (21-33) mmol/L Anion Gap 8 L (10-20) BUN 48 H (7-21) mg/dL Creatinine 0.9 (0.8-1.5) mg/dl Est GFR ( Amer) > 60 Est GFR (Non-Af Amer) > 60 POC Glucose (mg/dL) (65-110) mg/dL Random Glucose 136 H (70-110) mg/dL Calcium 8.1 L (8.4-10.5) mg/dL Phosphorus (2.5-4.5) mg/dL Magnesium (1.7-2.2) mg/dL Total Bilirubin (0.2-1.3) mg/dL AST (17-59) U/L ALT (7-56) U/L Alkaline Phosphatase (38-126) U/L NT-Pro-B Natriuret Pep 6120 H (0-450) pg/mL Total Protein (5.8-8.3) g/dL Albumin (3.0-4.8) g/dL Globulin gm/dL Albumin/Globulin Ratio (1.1-1.8) Procalcitonin (0.19-0.49) NG/ML 08/06/18 08/06/18 08/05/18 Range/Units 05:30 05:30 22:00 WBC 5.1 D (4.5-11.0) 10^3/uL RBC 4.16 (3.5-6.1) 10^6/uL Hgb 12.1 L (14.0-18.0) g/dL Hct 40.1 L (42.0-52.0) % MCV 96.4 (80.0-105.0) fl MCH 29.1 (25.0-35.0) pg MCHC 30.2 L (31.0-37.0) g/dl RDW 15.5 H (11.5-14.5) % Plt Count 60 L (120.0-450.0) 10^3/uL MPV 9.1 (7.0-11.0) fl pCO2 (35-45) mm/Hg pO2 (80-100) mm/Hg HCO3 (21-28) mmol/L ABG pH (7.35-7.45) ABG Total CO2 (22-28) mmol.L ABG O2 Saturation (95-98) % ABG O2 Content (15-23) ML/dl ABG Base Excess (-2.0-3.0) mmol/L ABG Hemoglobin (11.7-17.4) g/dL ABG Carboxyhemoglobin (0.5-1.5) % POC ABG HHb (Measured) (0-5) % ABG Methemoglobin (0.0-3.0) % ABG O2 Capacity (16-24) mL/dl Hgb O2 Saturation (95.0-98.0) % FiO2 % Sodium 139 (132-148) mmol/L Potassium 5.7 H* (3.6-5.0) mmol/L Chloride 106 (98-107) mmol/L Carbon Dioxide 30 (21-33) mmol/L Anion Gap 9 L (10-20) BUN 49 H (7-21) mg/dL Creatinine 1.0 (0.8-1.5) mg/dl Est GFR ( Amer) > 60 Est GFR (Non-Af Amer) > 60 POC Glucose (mg/dL) 154 H (65-110) mg/dL Random Glucose 147 H (70-110) mg/dL Calcium 8.2 L (8.4-10.5) mg/dL Phosphorus 3.7 (2.5-4.5) mg/dL Magnesium 2.2 (1.7-2.2) mg/dL Total Bilirubin 0.8 (0.2-1.3) mg/dL AST 53 (17-59) U/L ALT 224 H (7-56) U/L Alkaline Phosphatase 61 (38-126) U/L NT-Pro-B Natriuret Pep (0-450) pg/mL Total Protein 4.7 L (5.8-8.3) g/dL Albumin 2.5 L (3.0-4.8) g/dL Globulin 2.2 gm/dL Albumin/Globulin Ratio 1.1 (1.1-1.8) Procalcitonin (0.19-0.49) NG/ML 08/05/18 08/05/18 Range/Units 15:46 09:00 WBC (4.5-11.0) 10^3/uL RBC (3.5-6.1) 10^6/uL Hgb (14.0-18.0) g/dL Hct (42.0-52.0) % MCV (80.0-105.0) fl MCH (25.0-35.0) pg MCHC (31.0-37.0) g/dl RDW (11.5-14.5) % Plt Count (120.0-450.0) 10^3/uL MPV (7.0-11.0) fl pCO2 (35-45) mm/Hg pO2 (80-100) mm/Hg HCO3 (21-28) mmol/L ABG pH (7.35-7.45) ABG Total CO2 (22-28) mmol.L ABG O2 Saturation (95-98) % ABG O2 Content (15-23) ML/dl ABG Base Excess (-2.0-3.0) mmol/L ABG Hemoglobin (11.7-17.4) g/dL ABG Carboxyhemoglobin (0.5-1.5) % POC ABG HHb (Measured) (0-5) % ABG Methemoglobin (0.0-3.0) % ABG O2 Capacity (16-24) mL/dl Hgb O2 Saturation (95.0-98.0) % FiO2 % Sodium (132-148) mmol/L Potassium (3.6-5.0) mmol/L Chloride (98-107) mmol/L Carbon Dioxide (21-33) mmol/L Anion Gap (10-20) BUN (7-21) mg/dL Creatinine (0.8-1.5) mg/dl Est GFR ( Amer) Est GFR (Non-Af Amer) POC Glucose (mg/dL) 114 H (65-110) mg/dL Random Glucose (70-110) mg/dL Calcium (8.4-10.5) mg/dL Phosphorus (2.5-4.5) mg/dL Magnesium (1.7-2.2) mg/dL Total Bilirubin (0.2-1.3) mg/dL AST (17-59) U/L ALT (7-56) U/L Alkaline Phosphatase (38-126) U/L NT-Pro-B Natriuret Pep (0-450) pg/mL Total Protein (5.8-8.3) g/dL Albumin (3.0-4.8) g/dL Globulin gm/dL Albumin/Globulin Ratio (1.1-1.8) Procalcitonin 0.25 (0.19-0.49) NG/ML Laboratory Results - last 24 hr 08/05/18 08/05/18 08/05/18 09:00 15:46 22:00 WBC RBC Hgb Hct MCV MCH MCHC RDW Plt Count MPV pCO2 pO2 HCO3 ABG pH ABG Total CO2 ABG O2 Saturation ABG O2 Content ABG Base Excess ABG Hemoglobin ABG Carboxyhemoglobin POC ABG HHb (Measured) ABG Methemoglobin ABG O2 Capacity Hgb O2 Saturation FiO2 Sodium Potassium Chloride Carbon Dioxide Anion Gap BUN Creatinine Est GFR ( Amer) Est GFR (Non-Af Amer) POC Glucose (mg/dL) 114 H 154 H Random Glucose Calcium Phosphorus Magnesium Total Bilirubin AST ALT Alkaline Phosphatase NT-Pro-B Natriuret Pep Total Protein Albumin Globulin Albumin/Globulin Ratio Procalcitonin 0.25 08/06/18 08/06/18 08/06/18 05:30 05:30 05:30 WBC 5.1 D RBC 4.16 Hgb 12.1 L Hct 40.1 L MCV 96.4 MCH 29.1 MCHC 30.2 L RDW 15.5 H Plt Count 60 L MPV 9.1 pCO2 pO2 HCO3 ABG pH ABG Total CO2 ABG O2 Saturation ABG O2 Content ABG Base Excess ABG Hemoglobin ABG Carboxyhemoglobin POC ABG HHb (Measured) ABG Methemoglobin ABG O2 Capacity Hgb O2 Saturation FiO2 Sodium 139 Potassium 5.7 H* Chloride 106 Carbon Dioxide 30 Anion Gap 9 L BUN 49 H Creatinine 1.0 Est GFR ( Amer) > 60 Est GFR (Non-Af Amer) > 60 POC Glucose (mg/dL) Random Glucose 147 H Calcium 8.2 L Phosphorus 3.7 Magnesium 2.2 Total Bilirubin 0.8 AST 53 ALT 224 H Alkaline Phosphatase 61 NT-Pro-B Natriuret Pep 6120 H Total Protein 4.7 L Albumin 2.5 L Globulin 2.2 Albumin/Globulin Ratio 1.1 Procalcitonin 08/06/18 08/06/18 08:15 08:30 WBC RBC Hgb Hct MCV MCH MCHC RDW Plt Count MPV pCO2 38 pO2 90.0 HCO3 25.8 ABG pH 7.44 ABG Total CO2 27.0 ABG O2 Saturation 98.7 H ABG O2 Content 15.1 ABG Base Excess 1.6 ABG Hemoglobin 11.1 L ABG Carboxyhemoglobin 2.2 H POC ABG HHb (Measured) 1.3 ABG Methemoglobin 0.7 ABG O2 Capacity 15.3 L Hgb O2 Saturation 95.9 FiO2 40.0 Sodium 138 Potassium 5.3 H Chloride 106 Carbon Dioxide 30 Anion Gap 8 L BUN 48 H Creatinine 0.9 Est GFR ( Amer) > 60 Est GFR (Non-Af Amer) > 60 POC Glucose (mg/dL) Random Glucose 136 H Calcium 8.1 L Phosphorus Magnesium Total Bilirubin AST ALT Alkaline Phosphatase NT-Pro-B Natriuret Pep Total Protein Albumin Globulin Albumin/Globulin Ratio Procalcitonin EKG/Cardiology Studies: Cardiology / EKG Studies 08/06/18 EKG [ELECTROCARDIOGRAM] Urgent Comment: Reason For Exam: hyperkalemia Critical Care Progress Note - Nutrition Nutrition: Nutrition Category Date Time Status Heart Healthy Diet [DIET] Diets 08/05/18 Dinner Active Addendum Addendum: 08/06/18 15:09 ICU ATTENDING : Patent seen and examined with housestaff on 08/05. Agree with progress note with following additions/exceptions: 82 M with hx of rectal cancer s/p total colectomy, zenker's diverticulum, thrombocytopenia, stent placement for AAA, seizure disorder, hypertension, hyperlipidemia, atrial fibrillation on eliquis s/p polyp removal with parastomal hernia repair, with multi organ failure, and lung collapse I performed a bedside broch with intubation yest 08/05 suctioned out large amounts of thick mucus post-bronch XR shows re-expansion of left lung cont AGGRESSIVE pulm toilet Afib rate controlled surgery has cleared patient to resume eliquis COPD - cont nebs, steroids , would change steroids to 40mg daily JOHNNY improved, cont fluids feeding as per surgery GI ppx DVT ppx Cont to Monitor in MICU Yeni Keys MD MICU Attending Critical care time 30 minutes
--- NOTE | 2018-08-06 20:30 | CP.PCM.PCO ---
Physician Communication Note - Physician Communication Note Physician Communication Note: Eliquis On Hold-Prob NasoTracheal suction-Low platelets/K 5.3
--- NOTE | 2018-08-07 00:16 | PN ---
DATE: 08/06/2018 SUBJECTIVE: Patient is 82 years old, seen and examined, sitting in chair. He has bronchoscopy and bronchoscopic suction done yesterday. Seems to be doing lot better. Breathing seems to be stable. PHYSICAL EXAMINATION: VITAL SIGNS: Patient is afebrile. Pulse 105, respirations 18, blood pressure 147/71. LUNGS: Bilateral fair airflow, decreased breath sounds at base on the left side. HEART: S1, S2 audible. ABDOMEN: Soft. Colostomy started to function. EXTREMITIES: He has bilateral leg SCDs placed. LABORATORY DATA: WBC 5.1, hemoglobin 12.1, hematocrit 40.1, platelets 60. Chemistry: Sodium 138, potassium 5.3, chloride 106, CO2 30, BUN 48, creatinine 0.9, blood sugar of 145. ASSESSMENT: 1. Status post right hemicolectomy. 2. Status post respiratory failure. 3. Status post bronchoscopy. 4. Seizure disorder. 5. History of rectal cancer, status post resection and colostomy. 6. Chronic atrial fibrillation. 7. Seizure disorder. 8. Hyperkalemia. PLAN: Patient is currently on diltiazem. He is getting Mucomyst. He is on Dilantin. He was getting Eliquis, but it is hold for now until cleared by surgeon. He is getting DVT prophylaxis. He is on small dose of steroid and beta-tammy, getting nebulizer treatment. We will follow up his electrolyte in a.m. Out of bed to chair. We will reevaluate in a.m. Tri Fleming MD
[2018-08-07] MEDS: Acetylcysteine 20% Inhal Soln (4ml) IH SCH ×4 (01:36→19:55)
[2018-08-07] MEDS: Levalbuterol 1.25 MG/3 ML Inhal Soln UD IH SCH ×4 (01:41→19:53)
[2018-08-07 06:16] LABS: GRAN # 6.04 (1.4-6.5); GRAN % 93.8 % (50.0-68.0); HEMOGLOBIN 12.9 g/dL (14.0-18.0); LYMPH # 0.3 (1.2-3.4); LYMPH % 4.5 % (22.0-35.0); MEAN CELL VOLUME 94.8 fl (80.0-105.0); MEAN CORPUSCULAR HEMOGLOBIN 29.1 pg (25.0-35.0); MEAN CORPUSCULAR HGB CONC 30.7 g/dl (31.0-37.0); MEAN PLATELET VOLUME 9.9 fl (7.0-11.0); MONO # 0.1 (0.1-0.6); MONO % 1.7 % (1.0-6.0); PLATELET COUNT 76 10^3/uL (120.0-450.0); RBC 4.43 10^6/uL (3.5-6.1); RED CELL DISTRIBUTION WIDTH 15.2 % (11.5-14.5); WHITE BLOOD COUNT 6.4 10^3/uL (4.5-11.0)
--- NOTE | 2018-08-07 07:37 | PN ---
DATE: 08/07/2018([id number]) PULMONARY NOTE SUBJECTIVE: The patient appears comfortable this morning. He is not short of breath at rest. PHYSICAL EXAMINATION: VITAL SIGNS: Temperature is 97.3, pulse 92, respirations 18, blood pressure 147/71. Oxygen saturation on high-flow delivery is 95%. HEENT: Normocephalic, atraumatic. No JVD. CARDIOVASCULAR: Systolic ejection murmur at the lower left sternal border. Questionable S3 gallop. LUNGS: Decreased breath sounds - left lower lobe. Less rhonchi. No wheezing. EXTREMITIES: Mild edema. No cyanosis, no clubbing. Calves are nontender to palpation. GASTROINTESTINAL: Abdomen is postoperative. It is soft, nondistended, and less tender to palpation. SKIN: No acute rash. NEUROLOGIC: Limited at the present time. PERTINENT LABORATORY DATA: Chest x-ray was done this morning and reviewed. There is increased opacification noted at the left lower lobe. There is less pulmonary vascular congestion noted. IMPRESSION: 1. Recurrent left lung atelectasis. 2. Chronic obstructive pulmonary disease. 3. Congestive heart failure. 4. Small bilateral pleural effusions. 5. Atrial fibrillation. 6. Status post right hemicolectomy. 7. Anemia, thrombocytopenia. PLAN: The patient remains in the ICU. He is comfortable this morning. He is not short of breath. He does state to feeling better overall. I did discuss the case with the night nurse at length. The night nurse stated that the patient had a good night. I did review the chest x-ray from this morning. There is increased opacification noted at the left lower lobe. I did discuss the patient and the chest x-ray findings with respiratory therapist at length. The patient is status post multiple bronchoscopies. As he is improved overall, we will continue with the aggressive pulmonary toilet for now. Repeated procedures on this patient is somewhat problematic, as he continues to have multiple medical comorbidities, as well as severe thrombocytopenia. On physical exam, there is less bronchospasm noted. In addition, the alveolar-arterial gradient is also less. I will continue with the current nebulizer treatments and low-dose intravenous steroids. I would continue with the antibiotic coverage as per Infectious Disease. Input by Dr. Garvin is noted. Temperatures have resolved. The leukocytosis has resolved. Inputs by Surgery and Cardiology are also noted. Clinical status of the patient is certainly improved overall, but remains very guarded. I will discuss the above with the entire ICU team in the next few moments. I will also discuss the above with the attending physician later this morning. Rosalio Blevins MD MTDD
[2018-08-07 08:38] LABS: ALB/GLOB RATIO 1.2 (1.1-1.8); ALBUMIN 2.7 g/dL (3.0-4.8); ALT/SGPT 213 U/L (7-56); AST/SGOT 87 U/L (17-59); BLOOD UREA NITROGEN 51 mg/dL (7-21); CALCIUM 8.3 mg/dL (8.4-10.5); GFR NON-AFRICAN AMERICAN > 60
--- NOTE | 2018-08-07 08:51 | PN ---
DATE: 08/07/2018 FIELD TRAINING AGENT NOTE LOCATION: At [facility] (Formerly [facility])[3] SUBJECTIVE: The patient is awake and alert, has occasional cough with phlegm, is comfortable on O2 via nasal cannula. The patient is tolerating p.o. and eating his breakfast this morning. Note that he has had multiple bronchs for left lower lobe collapse and atelectasis. PHYSICAL EXAMINATION: VITAL SIGNS: Physical exam note that his temperature is 97.3, pulse is 85, respirations are 18, BP is 147/71. SKIN: Warm and dry. HEENT: Head atraumatic, normocephalic. Eyes reactive to light. Ears, nose and throat seemed to be within normal limits. NECK: Supple. No JVD. No thyroid enlargement. No lymph nodes. HEART: Regular rate and rhythm. Normal S1, S2. LUNGS: Reveal decreased breath sounds on the left with occasional rhonchi bilaterally. ABDOMEN: Soft. Decreased bowel sounds. GENITALIA AND RECTAL: Deferred. MUSCULOSKELETAL: No joint deformities. EXTREMITIES: Reveal positive lower extremity edema. NEUROLOGICAL: He seemed to be grossly intact. LABORATORY DATA: As far as his laboratories are concerned, white count is 6.4, hemoglobin is 12.9, hematocrit 42 with platelets of 76,000. Latest sodium is 138, potassium 5.3, chloride 106, CO2 of 30 with a BUN of 48, creatinine of 0.9 and a glucose of 145. Chest x-ray reveals that there is left lower lobe collapse and atelectasis, possible lower lobe pleural effusion. This is unofficial reading. IMPRESSION: As far as my impression, this is a patient that has history of chronic obstructive pulmonary disease with extensive smoking history, atrial fibrillation, thrombocytopenia and also a history of abdominal aortic aneurysm, status post aortic stent. He has a seizure disorder as well as rectal cancer, status post hemicolectomy. The patient has hypertension, hyperlipidemia and is noted to have chronic obstructive pulmonary disease, congestive heart failure as well as some pleural effusion and atrial fibrillation. The patient has a history of gastrointestinal bleed and presently has recurrent atelectasis and collapse of his left lower lobe and part of his left upper lobe. PLAN: As far as our plan, continue with aggressive pulmonary toilet, continue with bronchodilators and Mucomyst and good suction. He is getting O2 via nasal cannula, follow his O2 sats closely. The patient is on Cardizem as well as Dilantin and is getting prophylactic heparin. He continues to get Pepcid as well as Solu-Medrol and his Toprol. We will continue to follow closely and treat aggressively along with the other consultants and the primary care doctor. Wilian De La Torre MD
[2018-08-07 09:22] LABS: LYMPHOCYTE 4 % (22.0-35.0); NEUTROPHIL 94 % (50.0-70.0)
[2018-08-07 09:23] LABS: MONOCYTE 2 % (1.0-6.0)
--- NOTE | 2018-08-07 09:24 | PN ---
DATE: 08/07/2018 SUBJECTIVE: The patient is in bed, in no acute distress, nontoxic. PHYSICAL EXAMINATION: VITAL SIGNS: On exam, temperature is 97, blood pressure is 140/70, respiratory rate of 18. HEENT: Examination of HEENT is unremarkable. NECK: Supple. LUNGS: Have decreased breath sounds. HEART: Normal S1, S2. ABDOMEN: Soft. LABORATORY DATA: Laboratory examination reveals the white count is 6.4, hemoglobin of 12, platelets of 76. BUN of 48, creatinine is 0.9. Procalcitonin is down to 0.25. Urinalysis is noted and serology is noted. Microbiology reveals cultures are no growth including the bronch cultures. Review of orders reveals the cytology is pending and pathology is pending. The patient was on meropenem, has completed the antibiotic therapy. Currently off of antibiotics. Dr. Blevins's note is reviewed. ASSESSMENT AND PLAN: An 82-year-old male, seen earlier today with severe sepsis, left-sided healthcare-associated pneumonia, acute kidney injury, respiratory failure, intubated on a ventilator, now extubated, comfortable, doing much better, status post bronchoscopy. Had received 7 days of antibiotics and normalized procalcitonin. Currently off of antibiotics. However, the patient is at very high risk of developing nosocomial infections. Case discussed with Dr. Blevins. Jason Garvin MD
[2018-08-07] MEDS: diltiaZEM 180 mg/24 Hours CD Cap PO SCH (09:27)
[2018-08-07] MEDS: Metoprolol Succinate 25 mg XL Tab PO SCH ×2 (09:29→18:53)
[2018-08-07] MEDS: MethylPREDNISolone 40 mg Vial IVP SCH ×2 (09:30→22:31)
[2018-08-07] MEDS: Insulin Lispro (humaLOG) LOW Coverage SC SCH ×3 (09:34→22:29)
--- NOTE | 2018-08-07 10:13 | RAD ---
Date of service: 08/07/2018 HISTORY: f/u COMPARISON: 08/06/2018. FINDINGS: LUNGS: Limited portable examination and patient rotation to the left. There haziness in the right lower lobe. There is interval worsening of left pleural effusion. PLEURA: No pleural effusions or pneumothorax. CARDIOVASCULAR: Atherosclerotic aortic arch calcifications are present, evaluation of the cardiomediastinal silhouette is difficult due to patient rotation to the left. OSSEOUS STRUCTURES: Within normal limits for the patient's age. VISUALIZED UPPER ABDOMEN: Normal. OTHER FINDINGS: None. IMPRESSION: Bilateral pleural effusions, interval worsening of large left pleural effusion. Limited portable examination due to patient rotation to the left however a component of left lower lobe collects cannot be excluded.
--- NOTE | 2018-08-07 12:44 | CP.PCM.PCO ---
Physician Communication Note - Physician Communication Note Physician Communication Note: NTSuction Restarted-further LLLcollapse/NO BLOOD THINNERS
--- NOTE | 2018-08-07 15:45 | PN ---
DATE: 08/07/2018 SUBJECTIVE: The patient is 82 years old, seen and examined, sitting in bed. Seems to be comfortable. No cough, congestion. No shortness of breath. He has left periorbital ecchymosis because of thrombocytopenia. PHYSICAL EXAMINATION: VITAL SIGNS: He is afebrile, pulse 96, respirations 20, blood pressure 140/69. LUNGS: Bilateral fair airflow. A few expiratory rhonchi posteriorly, left more than the right. HEART: S1 and S2 audible. Irregular. Rate controlled. ABDOMEN: Soft. Nontender. No rebound. No guarding. NEUROLOGICAL: The patient is awake, alert, oriented, communicative. LABORATORY EXAM: WBC 6.4, hemoglobin 12.9, hematocrit 42, platelet Of 76. Chemistry: Sodium 137, potassium 4.9, chloride 102, CO2 of 31, BUN 51, creatinine 1, blood sugar 145. Sputum cultures were negative. Tracheal aspirates are negative, no growth. ASSESSMENT: 1. Status post right hemicolectomy. 2. Seizure disorder. 3. Status post lung collapse and was intubated and had bronchoscopic suction done. 4. Chronic atrial fibrillation. Off of anticoagulant. PLAN: Currently, the patient is on Mucomyst, Diltiazem, Phenytoin, Eliquis is on hold and he is on DVT prophylaxis. He is getting famotidine, Lasix intermittently. He is on steroid, we will continue that. We will follow up the patient in the a.m. Tri Fleming MD
[2018-08-08] MEDS: Acetylcysteine 20% Inhal Soln (4ml) IH SCH ×4 (02:50→20:16)
[2018-08-08] MEDS: Levalbuterol 1.25 MG/3 ML Inhal Soln UD IH SCH ×4 (02:50→20:16)
[2018-08-08 06:44] LABS: GRAN # 4.81 (1.4-6.5); GRAN % 93.6 % (50.0-68.0); HEMOGLOBIN 12.6 g/dL (14.0-18.0); LYMPH # 0.2 (1.2-3.4); LYMPH % 3.1 % (22.0-35.0); MEAN CORPUSCULAR HEMOGLOBIN 29.3 pg (25.0-35.0); MEAN CORPUSCULAR HGB CONC 31.2 g/dl (31.0-37.0); MEAN PLATELET VOLUME 9.6 fl (7.0-11.0); MONO # 0.2 (0.1-0.6); MONO % 3.3 % (1.0-6.0); RBC 4.3 10^6/uL (3.5-6.1); RED CELL DISTRIBUTION WIDTH 15.2 % (11.5-14.5); WHITE BLOOD COUNT 5.1 10^3/uL (4.5-11.0)
[2018-08-08 06:45] LABS: ALB/GLOB RATIO 1.2 (1.1-1.8); ALBUMIN 2.6 g/dL (3.0-4.8); ALT/SGPT 189 U/L (7-56); AST/SGOT 89 U/L (17-59); BLOOD UREA NITROGEN 51 mg/dL (7-21); CALCIUM 8.2 mg/dL (8.4-10.5); GFR NON-AFRICAN AMERICAN > 60
--- NOTE | 2018-08-08 07:33 | PN ---
DATE: 08/08/2018(625am-715am) PULMONARY NOTE DICTATION SUBJECTIVE: The patient appears comfortable this morning. He is not short of breath at rest. PHYSICAL EXAMINATION: VITAL SIGNS: Temperature is 97.3, pulse 96, respirations 18, blood pressure 125/66. Oxygen saturation on high-flow delivery is 95%. HEENT: Normocephalic, atraumatic. No JVD. CARDIOVASCULAR: Systolic ejection murmur at the lower left sternal border. Questionable S3 gallop. LUNGS: Improved breath sounds - left lower lobe. Mild bilateral rhonchi. No wheezing. EXTREMITIES: Mild edema. No cyanosis, no clubbing. Calves are nontender to palpation. GI: Abdomen is soft, nondistended and less tender to palpation. Abdomen is postoperative. SKIN: No acute rash. NEUROLOGIC: Exam limited at the present time. PERTINENT LABORATORY DATA: Chest x-ray was done this morning and reviewed. The chest x-ray is significantly improved--- with increased aeration noted to the left lower lobe. There is less pulmonary vascular congestion. There is a probable skin fold on the left. Official results are pending. IMPRESSION: 1. Recurrent left lung atelectasis. 2. Chronic obstructive pulmonary disease. 3. Congestive heart failure. 4. Small bilateral pleural effusions. 5. Atrial fibrillation. 6. Status post right hemicolectomy. 7. Anemia, thrombocytopenia. PLAN: The patient appears comfortable this morning. He is not short of breath at rest. He does state to feeling much better overall. I did discuss the case with the night nurse at length. The night nurse stated the patient had a very good night. I did review the chest x-ray from this morning. The chest x-ray is significantly improved - compared to yesterday - with increased aeration noted to the left lower lobe. Official results are pending. I would continue with the aggressive pulmonary toilet for now. I did discuss the case with the respiratory therapist this morning. Appreciate their input and efforts. On physical exam, there is certainly less bronchospasm noted. In addition, the alveolar-arterial gradient is also less. I will continue with the current nebulizer treatments on low-dose intravenous steroids for now. Inputs by Surgery and Infectious Disease are also noted. Clinical status of the patient is significantly improved - compared to last week. However, again, the future status/prognosis for this patient does remain very guarded. I will discuss the above the entire ICU team in the next few moments. I will also discuss the above with the attending physician later this morning. Rosalio Blevins MD MTDJevon
--- NOTE | 2018-08-08 09:19 | PN ---
DATE: 08/08/2018 SOFTWARE DEVELOPER INTERN NOTE SUBJECTIVE: The patient is resting in bed, alert and awake, getting a nebulizer treatment. He is usually on O2 via nasal cannula. The patient is being suctioned and with great pulmonary toilet and has significantly improved as far as his breath sounds on the left side. The patient has occasional cough with thick phlegm and no increased shortness of breath and is comfortable on O2 support. PHYSICAL EXAMINATION: VITAL SIGNS: His temperature is 97.3, pulse is 78, respirations are 17, BP is 118/70, O2 saturation is 99%. HEENT: Head is atraumatic, normocephalic. Eyes reactive to light. Ears, nose, and throat seemed to be within normal limits. NECK: Supple. No JVD. No thyroid enlargement. No lymph nodes. HEART: Has regular rate and rhythm. Normal S1, S2. LUNGS: Reveal bilateral rhonchi but no wheezing. ABDOMEN: Soft. Decreased bowel sounds. GENITALIA: Deferred. RECTAL: Deferred. MUSCULOSKELETAL: No joint deformities. EXTREMITIES: Reveal positive lower extremity edema. NEUROLOGIC: He seemed to be grossly intact. LABORATORY DATA: As far as his laboratories are concerned, his white count is 5.1, hemoglobin is 12.6, hematocrit 40.4 with platelets of 73,000. His sodium is 137, potassium 5.2, chloride 101, CO2 of 31 with a BUN of 51, creatinine of 0.9, and a glucose of 143. Chest x-ray reveals good aeration bilaterally with resolution of the left lung atelectasis and collapse. That is unofficial reading. IMPRESSION: The patient has a history of severe chronic obstructive pulmonary disease with extensive smoking history, atrial fibrillation, thrombocytopenia, and abdominal aortic aneurysm, status post aortic stent. The patient has a history of seizure disorder as well as rectal carcinoma, status post hemicolectomy. He has hypertension, hyperlipidemia and is noted to have history of congestive heart failure as well as severe chronic obstructive pulmonary disease and pleural effusions as well as atrial fibrillation. The patient most recently has complaints of atelectasis and collapse of the left lower lobe of the lung and with aggressive treatment, this has corrected. PLAN: We will continue with aggressive pulmonary toilet, continue with bronchodilators and Mucomyst as well as suction. The patient is on O2 via nasal cannula and Cardizem as well as Dilantin, prophylactic heparin, Pepcid, and Solu-Medrol as well as Toprol. We will continue to treat aggressively along with the other consultants and the primary care doctor. Wilian De La Torre MD
--- NOTE | 2018-08-08 09:26 | CP.PCM.PN ---
Subjective - Date & Time of Evaluation Date of Evaluation: 08/08/18 Time of Evaluation: 09:20 - Subjective Subjective: Surgery: Dr. Du Patient doing well. Conversant this am. Complains of mild RLQ pain at drain site, otherwise denies complaints at this time. Reports improvement in overall in respiratory status. Objective - Vital Signs/Intake and Output Vital Signs (last 24 hours): Temp Pulse Resp BP Pulse Ox 97.3 F L 78 17 118/70 99 08/08/18 07:00 08/08/18 08:20 08/08/18 08:20 08/08/18 08:01 08/08/18 08:20 Intake and Output: 08/08/18 08/08/18 06:59 18:59 Intake Total 240 Output Total 750 Balance -510 - Medications Medications: Current Medications Acetylcysteine (Acetylcysteine 20%) 4 ml IH [id number] [facility] Last Admin: 08/08/18 08:00 Dose: 4 ml Apixaban (Eliquis) 2.5 mg PO BID [facility] Last Admin: 08/04/18 18:51 Dose: 2.5 mg Dextrose (Dextrose 50% Inj) 0 ml IV STAT PRN; Protocol PRN Reason: Hypoglycemia Protocol Diltiazem HCl (Cardizem Cd) 360 mg PO DAILY [facility] Last Admin: 08/07/18 09:27 Dose: 360 mg Famotidine (Pepcid) 20 mg PO HS [facility] Last Admin: 08/07/18 22:31 Dose: 20 mg Heparin Sodium (Porcine) (Heparin) 5,000 units SC Q12 KD; Protocol Last Admin: 08/07/18 21:23 Dose: Not Given Dextrose (Dextrose 5% In Water 1000 Ml) 1,000 mls @ 0 mls/hr IV .Q0M PRN; Protocol PRN Reason: Hypoglycemia Protocol Insulin Human Lispro (Humalog Low) 0 units SC ACHS KD; Protocol Last Admin: 08/07/18 22:29 Dose: Not Given Levalbuterol HCl (Xopenex) 1.25 mg IH [id number] [facility] Last Admin: 08/08/18 08:00 Dose: 1.25 mg Methylprednisolone (Solu-Medrol) 40 mg IVP Q12 [facility] Last Admin: 08/07/18 22:31 Dose: 40 mg Metoprolol Succinate (Toprol Xl) 25 mg PO BID [facility] Last Admin: 08/07/18 18:53 Dose: 25 mg Phenytoin Sodium (Dilantin) 100 mg PO TID [facility] Last Admin: 08/07/18 18:54 Dose: 100 mg - Labs Labs: 08/08/18 06:00 08/08/18 06:00 - Constitutional Appears: Non-toxic, No Acute Distress, Chronically Ill - Head Exam Head Exam: ATRAUMATIC, NORMOCEPHALIC - Eye Exam Eye Exam: EOMI, Normal appearance - ENT Exam ENT Exam: Mucous Membranes Moist - Respiratory Exam Respiratory Exam: NORMAL BREATHING PATTERN. absent: Accessory Muscle Use, Chest Wall Tenderness - Cardiovascular Exam Cardiovascular Exam: REGULAR RHYTHM. absent: Tachycardia - GI/Abdominal Exam GI & Abdominal Exam: Soft. absent: Distended, Guarding, Tenderness Additional comments: Ostomy pink, patent, productive - Neurological Exam Neurological Exam: Alert, Awake - Psychiatric Exam Psychiatric exam: Normal Affect, Normal Mood - Skin Skin Exam: Dry, Warm Assessment and Plan - Assessment and Plan (Free Text) Assessment: 82 yr old male s/p right hemicolectomy and parastomal hernia repair with post op respiratory decompensation, overall improved Plan: -cont. aggressive pulmonary toilet -OOB to chair -daily labs -cont reg diet d/w Dr. Du [facility] PGY4
--- NOTE | 2018-08-08 10:03 | PN ---
DATE: 08/08/2018 SUBJECTIVE: The patient has no complaints of any chest pain. No shortness of breath. No headaches or dizziness. PHYSICAL EXAMINATION: VITAL SIGNS: Temperature is 97.3, pulse of 78, blood pressure is 118/70, respiration is 17. GENERAL: The patient is lying in bed, flat, comfortable. HEENT: No oral lesion. Anicteric sclerae. Moist mucosa. NECK: No JVD, adenopathy, or thyromegaly. CARDIOVASCULAR: S1 and S2, regular. No murmurs, rubs, or gallops. LUNGS: Clear to auscultation bilaterally. No wheeze, rales, or rhonchi. ABDOMEN: Bowel sounds are positive, soft, nontender and nondistended. EXTREMITIES: No cyanosis, clubbing or edema. LABORATORY DATA: White count of 5.1, hemoglobin 12.6, creatinine is 0.9. ASSESSMENT: 1. Status post hemicolectomy. 2. Seizure disorder. 3. Atrial fibrillation, not on anticoagulation. PLAN: The patient is currently on Cardizem for atrial fibrillation. The patient is receiving Dilantin for seizure disorder. The patient is on heparin for DVT prophylaxis. He is on Pepcid. He is going to continue with Solu-Medrol. The patient is receiving Xopenex as needed. The patient will get repeat blood work tomorrow. Arnie Pool MD
--- NOTE | 2018-08-08 10:18 | RAD ---
Date of service: 08/08/2018 HISTORY: f/u COMPARISON: 08/07/2017 FINDINGS: LUNGS: The right lung is well inflated. Persistent left lower lobe airspace disease. PLEURA: Persistent layering right pleural effusion. Improving left pleural effusion. No pneumothorax. CARDIOVASCULAR: The heart is normal in size. No aortic atherosclerotic calcification present. OSSEOUS STRUCTURES: Within normal limits for the patient's age. VISUALIZED UPPER ABDOMEN: Normal. OTHER FINDINGS: None. IMPRESSION: Improving left pleural effusion with residual moderate left pleural effusion. Left lower lobe airspace disease may represent atelectasis/pneumonia. Persistent right pleural effusion.
[2018-08-08] MEDS: Insulin Lispro (humaLOG) LOW Coverage SC SCH ×4 (10:57→22:00)
[2018-08-08] MEDS: diltiaZEM 180 mg/24 Hours CD Cap PO SCH (10:59)
[2018-08-08] MEDS: Metoprolol Succinate 25 mg XL Tab PO SCH ×2 (11:01→17:51)
[2018-08-08] MEDS: MethylPREDNISolone 40 mg Vial IVP SCH ×2 (11:01→21:28)
--- NOTE | 2018-08-08 12:29 | PN ---
DATE: 08/08/2018 The patient is in bed in no acute distress, nontoxic. PHYSICAL EXAMINATION: Temperature is 97, blood pressure is 118/70, respiratory rate of 22, and heart rate of 76. Examination of HEENT is unremarkable. Neck is supple. The lungs have decreased breath sounds. Abdominal examination is soft and nontender. LABORATORY EXAMINATION: White count of 5.1, hemoglobin of 12, and platelets of 73. Chemistries reveal a BUN of 51 and creatinine of 0.9. Urinalysis is noted. Serology is noted. Microbiology is reviewed. ASSESSMENT AND PLAN: This is an 82-year-old male who was seen earlier, doing much, much better, with severe sepsis, left-sided healthcare-associated pneumonia, acute kidney injury, respiratory failure, intubated on a ventilator. The patient is now extubated, is comfortable. The patient had a bronchoscopy by Dr. Blevins. The patient's procalcitonin is also improved and had completed 7 days of antibiotics. Now, he is afebrile, off of antibiotics with a white count normal at 5.2. Radiologically, this morning's chest x-ray results are pending. Yesterday's chest x-ray is noted. Dr. Blevins's progress note is reviewed. They state that the patient is comfortable, he is not short of breath at rest, oxygen saturation 95%. Chest x-ray is significantly improved. Dr. Cavazos's progress note is reviewed. The patient has a very high risk of developing nosocomial infections. Jason Garvin MD
--- NOTE | 2018-08-08 13:25 | PN ---
DATE: 08/05/2018 CRITICAL CARE PROGRESS NOTE SUBJECTIVE: This 82-year-old male was examined at his bedside in the critical care unit, bed #2 on the afternoon of , 08/05/2018. Present for this interview were his daughter and son-in-law. Daughter is Shira Thao. The patient is now extubated and breathing comfortably. He denied any fever, chills, chest pain or shortness of breath. He required 2 intubations and bronchoscopy secondary to mucus plugging and at present is receiving aggressive respiratory and physical therapy. PHYSICAL EXAMINATION: VITAL SIGNS: On physical exam, at present he was noted to have a temperature of 98.2, respirations 20, pulse 93 and blood pressure 141/69. Pulse ox was 100% on 2 L nasal O2. HEENT: Head: Normocephalic, atraumatic. Eyes: No icterus. Ears: Clear. Throat: Noninjected. NECK: Supple. HEART: Irregular S1, S2. LUNGS: With occasional rhonchi that clear with coughing. ABDOMEN: Soft. EXTREMITIES: No edema. SKIN: Without rash. NEUROLOGICAL: Deconditioned. VASCULAR: Legs warm to touch. PSYCHOLOGICAL: Alert and oriented x3. LABORATORY DATA: White count 6600, hemoglobin 12.1, hematocrit 39, platelets 68,000. Sodium 139, K 5.7, chloride 106, bicarb 30, BUN 49, creatinine 1, random blood sugar 147, bilirubin 0.8, AST 53, ALT 224 and alk phos 61. IMPRESSION: An 82-year-old male with improving acute renal failure in the setting of exacerbation of chronic obstructive pulmonary disease and mucus plugging requiring respiratory intubation x2, bronchoscopy therapeutically to remove retained mucus secretions in mainstem bronchus x2, now extubated and receiving aggressive pulmonary toiletry, also with hyperkalemia, chronic atrial fibrillation history, recent right hemicolectomy for cecal mass, which on pathology shows no evidence of colon cancer and also chronic hypertension, seizure syndrome, hyperglycemia, peptic ulcer disease with gastroesophageal reflux disease, chronic obstructive pulmonary disease. PLAN: Plan is to continue Mucomyst, Cardizem, Dilantin, Eliquis under the direction of Dr. Greenfield from Cardiology, subcu heparin, insulin coverage before meals and at bedtime, Pepcid, IV Solu-Medrol, Toprol-XL and Xopenex. The patient will be scheduled for serial labs. He is receiving gentle IV fluids. He is ordered to have bedside physical therapy and ultimate plan will be for transfer to Transitional Care Unit when medically stable. Greater than 35 minutes was spent in the care and management, review of labs, orders, x-rays and discussion of this patient with his daughter, Shira at bedside. All questions were answered. Sara Ramirez MD MTDD
--- NOTE | 2018-08-08 13:31 | PN ---
DATE: 08/06/2018 CRITICAL CARE PROGRESS NOTE SUBJECTIVE: This 82-year-old male was examined at his bedside on the evening of 08/06/2018. Present for this interview was his son. The patient is doing better today. He is in good spirits. He denies any fever, chills, chest pain or shortness of breath. He remains in an atrial fibrillation rhythm on monitoring and evaluation advisor and is receiving aggressive pulmonary toiletry. He is status post 2 pulmonary ventilatory intubations for retained mucus secretions, which are now being treated aggressively with suctioning and inhalational pulmonary toiletry. PHYSICAL EXAMINATION: VITAL SIGNS: At present, his temperature was 97.3, respirations 18, pulse 77 and blood pressure 147/71 with a monitoring and evaluation advisor showing atrial fibrillation. HEENT: Head: Normocephalic, atraumatic. Eyes: No icterus. Ears: Clear. Throat: Noninjected. NECK: Supple. HEART: Irregular S1, S2. LUNGS: With rhonchi and occasional wheezing that cleared with coughing. ABDOMEN: Soft. EXTREMITIES: No edema. SKIN: With improved turgor. VASCULAR: Legs warm to touch. PSYCHOLOGICAL: Alert. NEURO: Deconditioned. LABORATORY DATA: White count 5100, hemoglobin 12.1, hematocrit 40.1, platelets 60,000. Sodium 138, K 5.3, chloride 106, bicarb 30, BUN 48, creatinine 0.9, random blood sugar 136, calcium 8.1. 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 PLAN: The plan at present will be to continue Mucomyst inhalational therapy, Cardizem, Dilantin, heparin subcu, Humalog, Pepcid, IV Solu-Medrol, Toprol and Xopenex. The patient is scheduled for serial labs including comprehensive metabolic panel and CBC. He was encouraged to do incentive spirometry and is ordered to have BiPAP, CPAP settings. He will have followup chest x-rays, nasal O2 p.r.n., heart-healthy soft bland diet and is receiving suctioning of airway every 6 hours. He is wearing antiembolism sequential compression device stockings and all of the above was discussed with the patient and his son at bedside for greater than 35 minutes. All questions were answered. Sara Ramirez MD MTDJevon
[2018-08-09] MEDS: Levalbuterol 1.25 MG/3 ML Inhal Soln UD IH SCH ×4 (02:16→19:24)
[2018-08-09] MEDS: Acetylcysteine 20% Inhal Soln (4ml) IH SCH ×4 (02:19→19:24)
--- NOTE | 2018-08-09 07:40 | PN ---
DATE: 08/07/2018 CRITICAL CARE PROGRESS NOTE SUBJECTIVE: This 82-year-old male remains in critical care unit bed #2 in the [facility] and this case was reviewed today in detail with Dr. Rocale Du from Surgery. The patient is improving on a renal basis daily. He is tolerating diet, medication and is being monitored for multiple medical problems including acute renal failure status post right hemicolectomy and postoperative course complicated by respiratory failure requiring intubation secondary to mucus plugging. At present, he denies any fever, chills, chest pain or shortness of breath and remains in an atrial fibrillation rhythm on the monitor technician. PHYSICAL EXAMINATION: VITAL SIGNS: Temperature was 97.3, respirations 12, pulse 78, blood pressure was 122/83, pulse ox 100% on FIO2 at 2 L. HEENT: Head: Normocephalic, atraumatic. Eyes: No icterus. Ears: Clear. Throat: Noninjected. NECK: Supple. HEART: Irregular S1, S2. LUNGS: With rhonchi that cleared with coughing. ABDOMEN: Soft. EXTREMITIES: No edema. SKIN: Without rash. NEUROLOGICAL: Deconditioned. VASCULAR: Legs warm to touch. PSYCHOLOGICAL: Alert and oriented x3. LABORATORY DATA: Sodium 137, K 4.9, chloride 102, bicarb 31, BUN 51, creatinine 1, random blood sugar 145. Bilirubin 0.8, AST 87, ALT was 213, alk phos 74. Hepatitis A, B, C serologies negative. IMPRESSION: An 82-year-old male status post acute renal failure, status post right hemicolectomy for cecal mass, nonmalignant on pathology with comorbidities of acute respiratory failure postoperatively secondary to mucus plugging in the setting of chronic obstructive pulmonary disease and chronic atrial fibrillation, seizure syndrome, postoperative hyperglycemia, peptic ulcer disease with gastroesophageal reflux disease and chronic hypertension. PLAN: Plan at present is to continue Mucomyst, Cardizem, Dilantin, heparin, Humalog, insulin coverage, Pepcid, tapering Solu-Medrol, Toprol and Xopenex. It should be noted that the patient's BUN elevation at present is most likely on the basis of IV steroids, which are necessary for his recent respiratory failure syndrome as well as chronic obstructive pulmonary disease. The patient will be scheduled for comprehensive metabolic panel and CBC in the a.m. He will be scheduled to be transferred to the cardiac unit and then to transitional care rehab for reconditioning and gait training. Medications have been reviewed. A repeat chest x-ray has been ordered for a.m. He will continue on CPAP, BiPAP settings, chest physiotherapy, frequent suctioning, heart-healthy diabetic diet. He remains on aspiration precautions. He is encouraged to wear antiembolism sequential compression device stockings. He is instructed on the use of incentive spirometry and his ultimate plan will be for discharge to home when medically stable. All of the above was reviewed with the patient at bedside. All questions were answered. This case was also reviewed with Dr. Rocael Du, who is attending from Surgery. Sara Ramirez MD MTDD
--- NOTE | 2018-08-09 07:56 | PN ---
DATE: 08/09/2018(650am-740am) PULMONARY NOTE SUBJECTIVE: The patient appears comfortable this morning. He is not short of breath at rest. PHYSICAL EXAMINATION: VITAL SIGNS: Temperature is 97.8, pulse 91, respirations 18/20, blood pressure 173/75. Oxygen saturation on high-flow delivery is 97%. HEENT: Normocephalic, atraumatic. No JVD. CARDIOVASCULAR: Systolic ejection murmur at the lower left sternal border. Questionable S3 gallop. LUNGS: Improved breath sounds - left lower lobe. Less rhonchi. No wheezing. EXTREMITIES: Mild edema. No cyanosis. No clubbing. Calves are nontender to palpation. GI: Abdomen is soft, nondistended and less tender to palpation. Abdomen is postoperative. SKIN: No acute rash. NEUROLOGIC: Limited at the present time. PERTINENT LABORATORY DATA: The chest x-ray today is a poor rotated portable film. The left lung continues to show significant improvement in the aeration - compared to a few days ago. There is hazy right lower lobe airspace disease noted. IMPRESSION: 1. Recurrent left lung atelectasis. 2. Chronic obstructive pulmonary disease. 3. Congestive heart failure. 4. Small bilateral pleural effusions. 5. Atrial fibrillation. 6. Status post right hemicolectomy. 7. Anemia, thrombocytopenia. PLAN: The patient appears comfortable this morning. He is not short of breath at rest. He does state to feeling much better overall. I did discuss the case with the night nurse at length. The night nurse stated that the patient had a good night. I did review the chest x-ray from this morning. There continues to be a significant increase in the aeration to the left lung - compared to a few days ago. We will continue with the aggressive pulmonary toilet for now. The patient is status post multiple bronchoscopies. On physical exam, there is certainly less bronchospasm noted. I will continue with the current nebulizer treatments and low-dose intravenous steroids for now. Inputs by Infectious Disease and Surgery are also noted. The patient is now off antibiotic therapy. Temperatures have resolved. The leukocytosis has also resolved. Clinical status of the patient is significantly improved - compared to last week. However, the overall status/prognosis for this patient does still remain very guarded. I will discuss the above with the entire ICU team in the next few moments. I will also discuss the above the attending physician later this morning. Rosalio Blevins MD [place]
--- NOTE | 2018-08-09 08:00 | PN ---
DATE: 08/09/2018 SUBJECTIVE: The patient is in bed, in no acute distress. PHYSICAL EXAMINATION: VITAL SIGNS: On exam, temperature is 98, blood pressure is 170/70, respiratory rate of 18. HEENT: Examination of HEENT is unremarkable. NECK: Supple. LUNGS: Have decreased breath sounds. HEART: Normal S1, S2/ ABDOMEN: Soft, nontender. LABORATORY DATA: Laboratory examination reveals a white count of 5.1, hemoglobin of 12, platelets of 73. Chemistries are noted. Serology is negative. Microbiology is negative. ASSESSMENT AND PLAN: An 82-year-old white male who was seen earlier doing much, much better with severe sepsis, left-sided healthcare-associated pneumonia, acute kidney injury, respiratory failure, intubated on a ventilator. The patient is extubated. He is comfortable. He had a bronchoscopy with Dr. Blevins and procalcitonin has improved and completed antibiotic therapy. Currently, off of antibiotics, afebrile. The patient is at risk for developing nosocomial infections. Jason Garvin MD
[2018-08-09] MEDS: Insulin Lispro (humaLOG) LOW Coverage SC SCH ×3 (08:20→16:42)
[2018-08-09 09:16] LABS: BLOOD UREA NITROGEN 51 mg/dL (7-21); GFR NON-AFRICAN AMERICAN > 60
[2018-08-09 09:17] LABS: ALB/GLOB RATIO 1.2 (1.1-1.8); ALBUMIN 2.6 g/dL (3.0-4.8); AST/SGOT 43 U/L (17-59); CALCIUM 8.4 mg/dL (8.4-10.5)
[2018-08-09 09:18] LABS: ALT/SGPT 135 U/L (7-56)
--- NOTE | 2018-08-09 09:36 | RAD ---
Date of service: 08/09/2018 HISTORY: f/u COMPARISON: No prior. FINDINGS: LUNGS: Atelectasis or consolidation at the left lung base which obscures the diaphragmatic border PLEURA: Small pleural effusions CARDIOVASCULAR: Aortic calcifications present Moderate cardiomegaly no pulmonary vascular congestion. OSSEOUS STRUCTURES: No significant abnormalities. VISUALIZED UPPER ABDOMEN: Normal. OTHER FINDINGS: None. IMPRESSION: Moderate cardiomegaly. Small bilateral pleural effusions. Atelectasis or consolidation at left lung base. Findings unchanged
[2018-08-09] MEDS ORDERED: Sod Polystyrene Sulf 15 gm/60 ml Susp PO ONE (09:56)
[2018-08-09] MEDS ORDERED: Sod Polystyrene Sulf 15 gm/60 ml Susp PO STA (09:57)
[2018-08-09] MEDS: diltiaZEM 180 mg/24 Hours CD Cap PO SCH (10:10)
[2018-08-09] MEDS: MethylPREDNISolone 40 mg Vial IVP SCH ×2 (10:10→21:41)
[2018-08-09] MEDS: Metoprolol Succinate 25 mg XL Tab PO SCH ×2 (10:12→18:12)
--- NOTE | 2018-08-09 11:07 | CP.PCM.PCO ---
Physician Communication Note - Physician Communication Note Physician Communication Note: New air space infiltrate R Lung-?CHF vs Pneumonitis/Bleeding(Incision-2 kapil
--- NOTE | 2018-08-09 12:58 | PN ---
DATE: 08/08/2018 CRITICAL CARE PROGRESS NOTE SUBJECTIVE: This 82-year-old male remains hospitalized in CCU bed 2 on 08/08/2018. At present he is being treated with aggressive pulmonary toiletry, given 2 episodes of respiratory failure, requiring intubation and bronchoscopy to suction significant mucus plugging. At the time of evaluation, the patient was breathing comfortably. PHYSICAL EXAMINATION: VITAL SIGNS: Temperature 97.8, respiration 18, pulse 95 and blood pressure 119/65. HEAD: Normocephalic, atraumatic. EYES: No icterus. EARS: Clear. THROAT: Noninjected. NECK: Supple. HEART: Irregular S1, S2. LUNGS: Occasional rhonchi. ABDOMEN: Soft. EXTREMITIES: No edema. SKIN: Without rash. NEUROLOGICAL: Deconditioned. VASCULAR: Legs warm to touch. LABORATORY DATA: White count 5100, hemoglobin 12.6, hematocrit 40.4, platelets 73,000. Sodium 137, K 5.2, chloride 101, bicarb 31, BUN 51, creatinine 0.9, random blood sugar 143, bilirubin 0.8, AST 89, ALT 189, alk phos 69. IMPRESSION: An 82-year-old male with acute renal failure status post right hemicolectomy for cecal mass and comorbidities of chronic obstructive pulmonary disease, status post intubation x2 secondary to right mainstem bronchus mucus plugging with comorbidities of chronic atrial fibrillation, history of seizure syndrome, type 2 diabetes mellitus, peptic ulcer disease with gastroesophageal reflux disease and chronic hypertension. PLAN: The plan at present is to continue Mucomyst, Cardizem, Dilantin, Humalog, Pepcid, Solu-Medrol, Toprol and Xopenex. The patient continues to be followed by his primary care physician, Dr. Rocael Du, surgeon. He is ordered to have repeat blood work for the a.m. He will continue on chest PT, BiPAP, CPAP, chest physiotherapy, heart-healthy bland diet and antiembolism stockings and frequent suctioning with aspiration precautions. Based on clinical progress, additional diagnostic workup and testing will be entertained. Sara Ramirez MD [facility] # [id number] MTDD
--- NOTE | 2018-08-09 13:22 | CP.CCUPN ---
Addendum entered and electronically signed by Heather Adamson DO 08/09/18 13:38: CRITICAL CARE PROGRESS NOTE FOR DR. BARLOW Original Note: <Heather Adamson - Last Filed: 08/09/18 13:25> CCU Subjective - Physician Review Subjective (Free Text): CRITICAL CARE PROGRESS NOTE FOR DR. JULIANA Adamson PGY1 Pt seen and examined at bedside this am. No acute events overnight. No complaints this am. Breathing comfortably. 12 point ROS is negative. CCU Objective - Vital Signs / Intake & Output Vital Signs (Last 4 hours): Vital Signs Temp Pulse Resp BP Pulse Ox 08/09/18 12:10 143/68 08/09/18 11:49 88 08/09/18 11:05 97.9 F 08/09/18 10:50 87 27 H 97 08/09/18 10:40 79 17 100 08/09/18 10:30 79 21 100 08/09/18 10:20 79 38 H 100 08/09/18 10:12 78 134/59 L 08/09/18 10:10 81 16 134/59 L 100 08/09/18 10:00 80 14 134/59 L 100 08/09/18 09:50 78 100 08/09/18 09:40 80 16 100 08/09/18 09:30 78 19 100 08/09/18 09:23 100 Intake and Output (Last 8hrs): Intake & Output 08/08/18 08/09/18 08/09/18 22:59 06:59 14:59 Intake Total 240 Output Total 960 Balance -720 Weight 143 lb Intake: Oral 240 Output: Drainage 460 Right Abdomen 460 Urine 500 Straight 500 Other: # Voids Straight 5 - Physical Exam Head: Positive for: Atraumatic, Normocephalic Pupils: Positive for: PERRL Extroacular Muscles: Positive for: EOMI Conjunctiva: Positive for: Normal Mouth: Positive for: Moist Mucous Membranes Pharnyx: Positive for: Normal Neck: Positive for: Normal Range of Motion Respiratory/Chest: Positive for: Clear to Auscultation, Good Air Exchange. Negative for: Respiratory Distress Cardiovascular: Positive for: Other (irregularly irregular rhythm) Abdomen: Positive for: Normal Bowel Sounds, Other (+colostomy). Negative for: Tenderness, Distention Genitourinary Male: Positive for: Prostate Tenderness Upper Extremity: Positive for: Normal Inspection Lower Extremity: Positive for: Normal Inspection. Negative for: Edema Neurological: Positive for: GCS=15, Speech Normal Skin: Positive for: Warm, Dry, Normal Color Psychiatric: Positive for: Alert, Oriented x 3, Normal Insight, Normal Concentration - Medications Active Medications: Active Medications Generic Name Dose Route Start Last Admin Trade Name Freq PRN Reason Stop Dose Admin Acetylcysteine 4 ml 08/04/18 13:00 08/09/18 07:43 Acetylcysteine 20% IH 4 ml [id number] KD Administration Apixaban 2.5 mg 08/04/18 18:00 08/09/18 10:14 Eliquis PO Not Given BID KD Dextrose 0 ml 08/01/18 23:07 Dextrose 50% Inj IV STAT PRN Hypoglycemia Protocol Protocol Diltiazem HCl 360 mg 07/31/18 10:00 08/09/18 10:10 Cardizem Cd PO 360 mg DAILY KD Administration Enoxaparin Sodium 60 mg 08/09/18 13:30 Lovenox SC Q12H KD Protocol Famotidine 20 mg 08/05/18 22:00 08/08/18 21:28 Pepcid PO 20 mg HS KD Administration Dextrose 1,000 mls @ 0 mls/hr 08/01/18 23:07 Dextrose 5% In Water 1000 Ml IV .Q0M PRN Hypoglycemia Protocol Protocol Per Protocol Insulin Human Lispro 0 units 08/04/18 11:30 08/09/18 11:40 Humalog Low SC 1 u ACHS KD Administration Protocol Levalbuterol HCl 1.25 mg 08/02/18 14:00 08/09/18 07:43 Xopenex IH 1.25 mg [id number] KD Administration Methylprednisolone 20 mg 08/09/18 10:00 08/09/18 10:10 Solu-Medrol IVP 20 mg Q12 KD Administration Metoprolol Succinate 25 mg 07/31/18 10:00 08/09/18 10:12 Toprol Xl PO 25 mg BID KD Administration Phenytoin Sodium 100 mg 08/04/18 14:00 08/09/18 10:12 Dilantin PO 100 mg TID KD Administration - Patient Studies Lab Studies: Lab Studies 08/09/18 08/09/18 08/09/18 Range/Units 11:10 10:54 07:15 Sodium (132-148) mmol/L Potassium (3.6-5.0) mmol/L Chloride (98-107) mmol/L Carbon Dioxide (21-33) mmol/L Anion Gap (10-20) BUN (7-21) mg/dL Creatinine (0.8-1.5) mg/dl Est GFR ( Amer) Est GFR (Non-Af Amer) POC Glucose (mg/dL) 176 H 143 H (65-110) mg/dL Random Glucose (70-110) mg/dL Calcium (8.4-10.5) mg/dL Total Bilirubin (0.2-1.3) mg/dL AST (17-59) U/L ALT (7-56) U/L Alkaline Phosphatase (38-126) U/L NT-Pro-B Natriuret Pep 3880 H (0-450) pg/mL Total Protein (5.8-8.3) g/dL Albumin (3.0-4.8) g/dL Globulin gm/dL Albumin/Globulin Ratio (1.1-1.8) 08/09/18 08/08/18 08/08/18 Range/Units 06:50 22:17 15:46 Sodium 137 (132-148) mmol/L Potassium 5.4 H (3.6-5.0) mmol/L Chloride 102 (98-107) mmol/L Carbon Dioxide 31 (21-33) mmol/L Anion Gap 9 L (10-20) BUN 51 H (7-21) mg/dL Creatinine 0.8 (0.8-1.5) mg/dl Est GFR ( Amer) > 60 Est GFR (Non-Af Amer) > 60 POC Glucose (mg/dL) 209 H 154 H (65-110) mg/dL Random Glucose 140 H (70-110) mg/dL Calcium 8.4 (8.4-10.5) mg/dL Total Bilirubin 0.7 (0.2-1.3) mg/dL AST 43 (17-59) U/L ALT 135 H (7-56) U/L Alkaline Phosphatase 78 (38-126) U/L NT-Pro-B Natriuret Pep (0-450) pg/mL Total Protein 4.8 L (5.8-8.3) g/dL Albumin 2.6 L (3.0-4.8) g/dL Globulin 2.2 gm/dL Albumin/Globulin Ratio 1.2 (1.1-1.8) 08/08/18 08/08/18 08/07/18 Range/Units 10:26 07:26 21:34 Sodium (132-148) mmol/L Potassium (3.6-5.0) mmol/L Chloride (98-107) mmol/L Carbon Dioxide (21-33) mmol/L Anion Gap (10-20) BUN (7-21) mg/dL Creatinine (0.8-1.5) mg/dl Est GFR ( Amer) Est GFR (Non-Af Amer) POC Glucose (mg/dL) 155 H 151 H 148 H (65-110) mg/dL Random Glucose (70-110) mg/dL Calcium (8.4-10.5) mg/dL Total Bilirubin (0.2-1.3) mg/dL AST (17-59) U/L ALT (7-56) U/L Alkaline Phosphatase (38-126) U/L NT-Pro-B Natriuret Pep (0-450) pg/mL Total Protein (5.8-8.3) g/dL Albumin (3.0-4.8) g/dL Globulin gm/dL Albumin/Globulin Ratio (1.1-1.8) 08/07/18 08/07/18 08/07/18 Range/Units 16:25 11:22 07:21 Sodium (132-148) mmol/L Potassium (3.6-5.0) mmol/L Chloride (98-107) mmol/L Carbon Dioxide (21-33) mmol/L Anion Gap (10-20) BUN (7-21) mg/dL Creatinine (0.8-1.5) mg/dl Est GFR ( Amer) Est GFR (Non-Af Amer) POC Glucose (mg/dL) 173 H 154 H 184 H (65-110) mg/dL Random Glucose (70-110) mg/dL Calcium (8.4-10.5) mg/dL Total Bilirubin (0.2-1.3) mg/dL AST (17-59) U/L ALT (7-56) U/L Alkaline Phosphatase (38-126) U/L NT-Pro-B Natriuret Pep (0-450) pg/mL Total Protein (5.8-8.3) g/dL Albumin (3.0-4.8) g/dL Globulin gm/dL Albumin/Globulin Ratio (1.1-1.8) 08/06/18 Range/Units 21:46 Sodium (132-148) mmol/L Potassium (3.6-5.0) mmol/L Chloride (98-107) mmol/L Carbon Dioxide (21-33) mmol/L Anion Gap (10-20) BUN (7-21) mg/dL Creatinine (0.8-1.5) mg/dl Est GFR ( Amer) Est GFR (Non-Af Amer) POC Glucose (mg/dL) 159 H (65-110) mg/dL Random Glucose (70-110) mg/dL Calcium (8.4-10.5) mg/dL Total Bilirubin (0.2-1.3) mg/dL AST (17-59) U/L ALT (7-56) U/L Alkaline Phosphatase (38-126) U/L NT-Pro-B Natriuret Pep (0-450) pg/mL Total Protein (5.8-8.3) g/dL Albumin (3.0-4.8) g/dL Globulin gm/dL Albumin/Globulin Ratio (1.1-1.8) Laboratory Results - last 24 hr 08/06/18 08/07/18 08/07/18 21:46 07:21 11:22 Sodium Potassium Chloride Carbon Dioxide Anion Gap BUN Creatinine Est GFR ( Amer) Est GFR (Non-Af Amer) POC Glucose (mg/dL) 159 H 184 H 154 H Random Glucose Calcium Total Bilirubin AST ALT Alkaline Phosphatase NT-Pro-B Natriuret Pep Total Protein Albumin Globulin Albumin/Globulin Ratio 08/07/18 08/07/18 08/08/18 16:25 21:34 07:26 Sodium Potassium Chloride Carbon Dioxide Anion Gap BUN Creatinine Est GFR ( Amer) Est GFR (Non-Af Amer) POC Glucose (mg/dL) 173 H 148 H 151 H Random Glucose Calcium Total Bilirubin AST ALT Alkaline Phosphatase NT-Pro-B Natriuret Pep Total Protein Albumin Globulin Albumin/Globulin Ratio 08/08/18 08/08/18 08/08/18 10:26 15:46 22:17 Sodium Potassium Chloride Carbon Dioxide Anion Gap BUN Creatinine Est GFR ( Amer) Est GFR (Non-Af Amer) POC Glucose (mg/dL) 155 H 154 H 209 H Random Glucose Calcium Total Bilirubin AST ALT Alkaline Phosphatase NT-Pro-B Natriuret Pep Total Protein Albumin Globulin Albumin/Globulin Ratio 08/09/18 08/09/18 08/09/18 06:50 07:15 10:54 Sodium 137 Potassium 5.4 H Chloride 102 Carbon Dioxide 31 Anion Gap 9 L BUN 51 H Creatinine 0.8 Est GFR ( Amer) > 60 Est GFR (Non-Af Amer) > 60 POC Glucose (mg/dL) 143 H 176 H Random Glucose 140 H Calcium 8.4 Total Bilirubin 0.7 AST 43 ALT 135 H Alkaline Phosphatase 78 NT-Pro-B Natriuret Pep Total Protein 4.8 L Albumin 2.6 L Globulin 2.2 Albumin/Globulin Ratio 1.2 08/09/18 11:10 Sodium Potassium Chloride Carbon Dioxide Anion Gap BUN Creatinine Est GFR ( Amer) Est GFR (Non-Af Amer) POC Glucose (mg/dL) Random Glucose Calcium Total Bilirubin AST ALT Alkaline Phosphatase NT-Pro-B Natriuret Pep 3880 H Total Protein Albumin Globulin Albumin/Globulin Ratio Fingerstick Blood Sugar Results: 179 Review of Systems - Review of Systems Review of Systems: per HPI Critical Care Progress Note - Nutrition Nutrition: Nutrition Category Date Time Status Heart Healthy Diet [DIET] Diets 08/05/18 Dinner Active Assessment/Plan - Assessment and Plan (Free Text) Assessment: 82 y/o M with PMHx of COPD, extensive smoking history, Afib on eliquis, chronic thrombocytopenia, AAA s/p aortic stent, seizure disorder, rectal CA s/p total colectomy, zenker diverticulum, HTN, HLD admitted to the hospital s/p polyp removal with parastomal hernia repair. Post-operatively, he was found to have a collapse L lung on xray, likely secondary to mucous plugging. Pt is s/p bedside bronchoscopy with lavage on 08/03 with removal of thick mucous secretions. He was intubated for bronchoscopy, and subsequently extubated on 08/04 and placed on BiPAP. Currently being closely monitored this am on high flow O2 at 50L with FiO2 40%. Pt went bronchoscopy w/ lavage 08/05/18. He was sedated, intubated. Post-procedure chest x-ray improved. He will be monitored in ICU for a few days. Plan: Neuro/Psych: s/p second bronchoscopy done on 08/05/18 AxO x3, following commands, opens eyes spontaneously Hx of seizures continue phenytoin Reorient as necessary Cardio Afib on eliquis cardizem 360 daily metoprolol 25 bid Per surgery rec, eliquis resumed Monitor H/H Pulmonary s/p bronchoscopy w/ lavage 08/05. Mucus plugs removed extubated, on HF O2 f/u xray post bronchoscopy revealed improved aeration of L lung COPD Xopenex q6h Acetylcysteine 4ml IH q6h Taper Solu-medrol 20mg IVP daily Saturating well on high-flow Aggressive chest PT sputum cultures (-) GI S/p R hemicolectomy and parastoma hernioraphy Colostomy bag in place, draining pink fluid Monitor for signs of overt bleeding Hx of rectal ca s/p total colectomy /Renal JOHNNY: BUN improved from yesterday. Cr wnl today Heme H/H stable Tranfuse if Hgb <8 Continue eliquis ID Meropenem(08/01) x 9days sputum culture (-) DVT/GI PPx: Lovenox/Pepcid Case seen, examined and discussed with attending physician, Dr. Barlow <Lev Barlow - Last Filed: 08/09/18 13:36> CCU Objective - Vital Signs / Intake & Output Vital Signs (Last 4 hours): Vital Signs Temp Pulse Resp BP Pulse Ox 08/09/18 12:10 143/68 08/09/18 11:49 88 08/09/18 11:05 97.9 F 08/09/18 10:50 87 27 H 97 08/09/18 10:40 79 17 100 08/09/18 10:30 79 21 100 08/09/18 10:20 79 38 H 100 08/09/18 10:12 78 134/59 L 08/09/18 10:10 81 16 134/59 L 100 08/09/18 10:00 80 14 134/59 L 100 08/09/18 09:50 78 100 08/09/18 09:40 80 16 100 Intake and Output (Last 8hrs): Intake & Output 08/08/18 08/09/18 08/09/18 22:59 06:59 14:59 Intake Total 240 Output Total 960 Balance -720 Weight 143 lb Intake: Oral 240 Output: Drainage 460 Right Abdomen 460 Urine 500 Straight 500 Other: # Voids Straight 5 - Medications Active Medications: Active Medications Generic Name Dose Route Start Last Admin Trade Name Freq PRN Reason Stop Dose Admin Acetylcysteine 4 ml 08/04/18 13:00 08/09/18 07:43 Acetylcysteine 20% IH 4 ml [id number] KD Administration Apixaban 2.5 mg 08/04/18 18:00 08/09/18 10:14 Eliquis PO Not Given BID KD Dextrose 0 ml 08/01/18 23:07 Dextrose 50% Inj IV STAT PRN Hypoglycemia Protocol Protocol Diltiazem HCl 360 mg 07/31/18 10:00 08/09/18 10:10 Cardizem Cd PO 360 mg DAILY KD Administration Enoxaparin Sodium 60 mg 08/09/18 13:30 Lovenox SC Q12H KD Protocol Famotidine 20 mg 08/05/18 22:00 08/08/18 21:28 Pepcid PO 20 mg HS KD Administration Dextrose 1,000 mls @ 0 mls/hr 08/01/18 23:07 Dextrose 5% In Water 1000 Ml IV .Q0M PRN Hypoglycemia Protocol Protocol Per Protocol Insulin Human Lispro 0 units 08/04/18 11:30 08/09/18 11:40 Humalog Low SC 1 u ACHS KD Administration Protocol Levalbuterol HCl 1.25 mg 08/02/18 14:00 08/09/18 07:43 Xopenex IH 1.25 mg [id number] KD Administration Methylprednisolone 20 mg 08/09/18 10:00 08/09/18 10:10 Solu-Medrol IVP 20 mg Q12 KD Administration Metoprolol Succinate 25 mg 07/31/18 10:00 08/09/18 10:12 Toprol Xl PO 25 mg BID KD Administration Phenytoin Sodium 100 mg 08/04/18 14:00 08/09/18 10:12 Dilantin PO 100 mg TID KD Administration - Patient Studies Lab Studies: Lab Studies 08/09/18 08/09/18 08/09/18 Range/Units 11:10 10:54 07:15 Sodium (132-148) mmol/L Potassium (3.6-5.0) mmol/L Chloride (98-107) mmol/L Carbon Dioxide (21-33) mmol/L Anion Gap (10-20) BUN (7-21) mg/dL Creatinine (0.8-1.5) mg/dl Est GFR ( Amer) Est GFR (Non-Af Amer) POC Glucose (mg/dL) 176 H 143 H (65-110) mg/dL Random Glucose (70-110) mg/dL Calcium (8.4-10.5) mg/dL Total Bilirubin (0.2-1.3) mg/dL AST (17-59) U/L ALT (7-56) U/L Alkaline Phosphatase (38-126) U/L NT-Pro-B Natriuret Pep 3880 H (0-450) pg/mL Total Protein (5.8-8.3) g/dL Albumin (3.0-4.8) g/dL Globulin gm/dL Albumin/Globulin Ratio (1.1-1.8) 08/09/18 08/08/18 08/08/18 Range/Units 06:50 22:17 15:46 Sodium 137 (132-148) mmol/L Potassium 5.4 H (3.6-5.0) mmol/L Chloride 102 (98-107) mmol/L Carbon Dioxide 31 (21-33) mmol/L Anion Gap 9 L (10-20) BUN 51 H (7-21) mg/dL Creatinine 0.8 (0.8-1.5) mg/dl Est GFR ( Amer) > 60 Est GFR (Non-Af Amer) > 60 POC Glucose (mg/dL) 209 H 154 H (65-110) mg/dL Random Glucose 140 H (70-110) mg/dL Calcium 8.4 (8.4-10.5) mg/dL Total Bilirubin 0.7 (0.2-1.3) mg/dL AST 43 (17-59) U/L ALT 135 H (7-56) U/L Alkaline Phosphatase 78 (38-126) U/L NT-Pro-B Natriuret Pep (0-450) pg/mL Total Protein 4.8 L (5.8-8.3) g/dL Albumin 2.6 L (3.0-4.8) g/dL Globulin 2.2 gm/dL Albumin/Globulin Ratio 1.2 (1.1-1.8) 08/08/18 08/08/18 08/07/18 Range/Units 10:26 07:26 21:34 Sodium (132-148) mmol/L Potassium (3.6-5.0) mmol/L Chloride (98-107) mmol/L Carbon Dioxide (21-33) mmol/L Anion Gap (10-20) BUN (7-21) mg/dL Creatinine (0.8-1.5) mg/dl Est GFR ( Amer) Est GFR (Non-Af Amer) POC Glucose (mg/dL) 155 H 151 H 148 H (65-110) mg/dL Random Glucose (70-110) mg/dL Calcium (8.4-10.5) mg/dL Total Bilirubin (0.2-1.3) mg/dL AST (17-59) U/L ALT (7-56) U/L Alkaline Phosphatase (38-126) U/L NT-Pro-B Natriuret Pep (0-450) pg/mL Total Protein (5.8-8.3) g/dL Albumin (3.0-4.8) g/dL Globulin gm/dL Albumin/Globulin Ratio (1.1-1.8) 08/07/18 08/07/18 08/07/18 Range/Units 16:25 11:22 07:21 Sodium (132-148) mmol/L Potassium (3.6-5.0) mmol/L Chloride (98-107) mmol/L Carbon Dioxide (21-33) mmol/L Anion Gap (10-20) BUN (7-21) mg/dL Creatinine (0.8-1.5) mg/dl Est GFR ( Amer) Est GFR (Non-Af Amer) POC Glucose (mg/dL) 173 H 154 H 184 H (65-110) mg/dL Random Glucose (70-110) mg/dL Calcium (8.4-10.5) mg/dL Total Bilirubin (0.2-1.3) mg/dL AST (17-59) U/L ALT (7-56) U/L Alkaline Phosphatase (38-126) U/L NT-Pro-B Natriuret Pep (0-450) pg/mL Total Protein (5.8-8.3) g/dL Albumin (3.0-4.8) g/dL Globulin gm/dL Albumin/Globulin Ratio (1.1-1.8) 08/06/18 Range/Units 21:46 Sodium (132-148) mmol/L Potassium (3.6-5.0) mmol/L Chloride (98-107) mmol/L Carbon Dioxide (21-33) mmol/L Anion Gap (10-20) BUN (7-21) mg/dL Creatinine (0.8-1.5) mg/dl Est GFR ( Amer) Est GFR (Non-Af Amer) POC Glucose (mg/dL) 159 H (65-110) mg/dL Random Glucose (70-110) mg/dL Calcium (8.4-10.5) mg/dL Total Bilirubin (0.2-1.3) mg/dL AST (17-59) U/L ALT (7-56) U/L Alkaline Phosphatase (38-126) U/L NT-Pro-B Natriuret Pep (0-450) pg/mL Total Protein (5.8-8.3) g/dL Albumin (3.0-4.8) g/dL Globulin gm/dL Albumin/Globulin Ratio (1.1-1.8) Laboratory Results - last 24 hr 08/06/18 08/07/18 08/07/18 21:46 07:21 11:22 Sodium Potassium Chloride Carbon Dioxide Anion Gap BUN Creatinine Est GFR ( Amer) Est GFR (Non-Af Amer) POC Glucose (mg/dL) 159 H 184 H 154 H Random Glucose Calcium Total Bilirubin AST ALT Alkaline Phosphatase NT-Pro-B Natriuret Pep Total Protein Albumin Globulin Albumin/Globulin Ratio 08/07/18 08/07/18 08/08/18 16:25 21:34 07:26 Sodium Potassium Chloride Carbon Dioxide Anion Gap BUN Creatinine Est GFR ( Amer) Est GFR (Non-Af Amer) POC Glucose (mg/dL) 173 H 148 H 151 H Random Glucose Calcium Total Bilirubin AST ALT Alkaline Phosphatase NT-Pro-B Natriuret Pep Total Protein Albumin Globulin Albumin/Globulin Ratio 08/08/18 08/08/18 08/08/18 10:26 15:46 22:17 Sodium Potassium Chloride Carbon Dioxide Anion Gap BUN Creatinine Est GFR ( Amer) Est GFR (Non-Af Amer) POC Glucose (mg/dL) 155 H 154 H 209 H Random Glucose Calcium Total Bilirubin AST ALT Alkaline Phosphatase NT-Pro-B Natriuret Pep Total Protein Albumin Globulin Albumin/Globulin Ratio 08/09/18 08/09/18 08/09/18 06:50 07:15 10:54 Sodium 137 Potassium 5.4 H Chloride 102 Carbon Dioxide 31 Anion Gap 9 L BUN 51 H Creatinine 0.8 Est GFR ( Amer) > 60 Est GFR (Non-Af Amer) > 60 POC Glucose (mg/dL) 143 H 176 H Random Glucose 140 H Calcium 8.4 Total Bilirubin 0.7 AST 43 ALT 135 H Alkaline Phosphatase 78 NT-Pro-B Natriuret Pep Total Protein 4.8 L Albumin 2.6 L Globulin 2.2 Albumin/Globulin Ratio 1.2 08/09/18 11:10 Sodium Potassium Chloride Carbon Dioxide Anion Gap BUN Creatinine Est GFR ( Amer) Est GFR (Non-Af Amer) POC Glucose (mg/dL) Random Glucose Calcium Total Bilirubin AST ALT Alkaline Phosphatase NT-Pro-B Natriuret Pep 3880 H Total Protein Albumin Globulin Albumin/Globulin Ratio Critical Care Progress Note - Nutrition Nutrition: Nutrition Category Date Time Status Heart Healthy Diet [DIET] Diets 08/05/18 Dinner Active Assessment/Plan - Assessment and Plan (Free Text) Plan: Please see my note for the day for further details. Agree with above
--- NOTE | 2018-08-09 13:27 | CP.PCM.PN ---
Subjective - Date & Time of Evaluation Date of Evaluation: 08/09/18 Time of Evaluation: 07:35 - Subjective Subjective: Patient seen and examined at bedside, resting comfortably in NAD, no major complaints, on 2LNC. Objective - Vital Signs/Intake and Output Vital Signs (last 24 hours): Temp Pulse Resp BP Pulse Ox 97.9 F 88 27 H 143/68 97 08/09/18 11:05 08/09/18 11:49 08/09/18 10:50 08/09/18 12:10 08/09/18 10:50 Intake and Output: 08/09/18 08/09/18 06:59 18:59 Intake Total 240 Output Total 960 Balance -720 - Medications Medications: Current Medications Acetylcysteine (Acetylcysteine 20%) 4 ml IH [id number] [facility] Last Admin: 08/09/18 07:43 Dose: 4 ml Apixaban (Eliquis) 2.5 mg PO BID [facility] Last Admin: 08/09/18 10:14 Dose: Not Given Dextrose (Dextrose 50% Inj) 0 ml IV STAT PRN; Protocol PRN Reason: Hypoglycemia Protocol Diltiazem HCl (Cardizem Cd) 360 mg PO DAILY [facility] Last Admin: 08/09/18 10:10 Dose: 360 mg Enoxaparin Sodium (Lovenox) 60 mg SC Q12H KD; Protocol Famotidine (Pepcid) 20 mg PO HS [facility] Last Admin: 08/08/18 21:28 Dose: 20 mg Dextrose (Dextrose 5% In Water 1000 Ml) 1,000 mls @ 0 mls/hr IV .Q0M PRN; Protocol PRN Reason: Hypoglycemia Protocol Insulin Human Lispro (Humalog Low) 0 units SC ACHS [facility]; Protocol Last Admin: 08/09/18 11:40 Dose: 1 u Levalbuterol HCl (Xopenex) 1.25 mg IH [id number] [facility] Last Admin: 08/09/18 07:43 Dose: 1.25 mg Methylprednisolone (Solu-Medrol) 20 mg IVP Q12 [facility] Last Admin: 08/09/18 10:10 Dose: 20 mg Metoprolol Succinate (Toprol Xl) 25 mg PO BID [facility] Last Admin: 08/09/18 10:12 Dose: 25 mg Phenytoin Sodium (Dilantin) 100 mg PO TID KD Last Admin: 08/09/18 10:12 Dose: 100 mg - Labs Labs: 08/08/18 06:00 08/09/18 06:50 - Constitutional Appears: Non-toxic, No Acute Distress, Cachectic, Chronically Ill - Head Exam Head Exam: NORMAL INSPECTION - Eye Exam Eye Exam: Normal appearance - ENT Exam ENT Exam: Mucous Membranes Moist - Neck Exam Neck Exam: Full ROM - Respiratory Exam Respiratory Exam: Clear to Ausculation Bilateral, NORMAL BREATHING PATTERN - Cardiovascular Exam Cardiovascular Exam: REGULAR RHYTHM, +S1, +S2 - GI/Abdominal Exam GI & Abdominal Exam: Soft, Normal Bowel Sounds Additional comments: + colostomy - Extremities Exam Extremities Exam: Normal Inspection - Neurological Exam Neurological Exam: Alert, Awake, Oriented x3 Assessment and Plan - Assessment and Plan (Free Text) Assessment: 82 year old male with past medical history of rectal cancer s/p total colectomy, zenker's diverticulum, thrombocytopenia, aortic stent placement for AAA, seizure disorder, hypertension, hyperlipidemia, thrombocytopenia, atrial fibrillation on eliquis s/p surgery on 07/30 for polyp removal with parastomal hernia repair, admitted to MICU with renal failure and lung collapse 2/2 mucus plugging, s/p bronchoscopy x 2, with subsequent resolution of lung collpase, and significant improvement in aeration of CXR. Labs, imaging, chart reviewed CXR with significant improvement in aeration of L lung, unchange since yesterday Renal, ID, Pulm following. Lung Collapse, RESOLVED Afib COPD Hx Smoking Rectal Ca s/p total colectomy Chronic Thrombocytopenia Mucus plugging s/p bronchoscopy X2 Pleural effusion Renal failure Recommend: - cont with supp o2 as needed, goal sat 90%, duonebs PRN, IS - Solumedrol taper, 20mg IV Q12hr - aggressive chest PT - pulm follow up, follow up bronch cultures - follow up cultures, UCx, BCx, Procal - Abx as per ID - Follow up renal - I/Os - FS control - GI ppx - DVT ppx - Monitor in MICU
--- NOTE | 2018-08-09 13:37 | CP.PCM.PN ---
Subjective - Date & Time of Evaluation Date of Evaluation: 08/09/18 Time of Evaluation: 13:33 - Subjective Subjective: General Surgery Progress Note for Dr. Du This 82M was seen and examined this AM. No acute events reported overnight. His breathing is improving, he continues to have significant output from his mayra drain. He is passing gas and moving his bowels into his colostomy bag. No new complaints at this time. Objective - Vital Signs/Intake and Output Vital Signs (last 24 hours): Temp Pulse Resp BP Pulse Ox 97.9 F 88 27 H 143/68 97 08/09/18 11:05 08/09/18 11:49 08/09/18 10:50 08/09/18 12:10 08/09/18 10:50 Intake and Output: 08/09/18 08/09/18 06:59 18:59 Intake Total 240 Output Total 960 Balance -720 - Medications Medications: Current Medications Acetylcysteine (Acetylcysteine 20%) 4 ml IH [id number] [facility] Last Admin: 08/09/18 07:43 Dose: 4 ml Apixaban (Eliquis) 2.5 mg PO BID [facility] Last Admin: 08/09/18 10:14 Dose: Not Given Dextrose (Dextrose 50% Inj) 0 ml IV STAT PRN; Protocol PRN Reason: Hypoglycemia Protocol Diltiazem HCl (Cardizem Cd) 360 mg PO DAILY [facility] Last Admin: 08/09/18 10:10 Dose: 360 mg Enoxaparin Sodium (Lovenox) 60 mg SC Q12H KD; Protocol Famotidine (Pepcid) 20 mg PO HS [facility] Last Admin: 08/08/18 21:28 Dose: 20 mg Dextrose (Dextrose 5% In Water 1000 Ml) 1,000 mls @ 0 mls/hr IV .Q0M PRN; Protocol PRN Reason: Hypoglycemia Protocol Insulin Human Lispro (Humalog Low) 0 units SC ACHS KD; Protocol Last Admin: 08/09/18 11:40 Dose: 1 u Levalbuterol HCl (Xopenex) 1.25 mg IH [id number] [facility] Last Admin: 08/09/18 07:43 Dose: 1.25 mg Methylprednisolone (Solu-Medrol) 20 mg IVP Q12 [facility] Last Admin: 08/09/18 10:10 Dose: 20 mg Metoprolol Succinate (Toprol Xl) 25 mg PO BID [facility] Last Admin: 08/09/18 10:12 Dose: 25 mg Phenytoin Sodium (Dilantin) 100 mg PO TID [facility] Last Admin: 08/09/18 10:12 Dose: 100 mg - Labs Labs: 08/08/18 06:00 08/09/18 06:50 - Constitutional Appears: Non-toxic, No Acute Distress - Head Exam Head Exam: ATRAUMATIC, NORMOCEPHALIC - Eye Exam Eye Exam: EOMI - Respiratory Exam Respiratory Exam: NORMAL BREATHING PATTERN - Cardiovascular Exam Cardiovascular Exam: +S1, +S2 - GI/Abdominal Exam GI & Abdominal Exam: Soft. absent: Firm, Guarding, Rigid, Tenderness - Neurological Exam Neurological Exam: Alert, Awake - Psychiatric Exam Psychiatric exam: Normal Affect, Normal Mood - Skin Skin Exam: Dry, Intact Assessment and Plan - Assessment and Plan (Free Text) Assessment: 82 yr old male POD 7 s/p right hemicolectomy and parastomal hernia repair Plan: Reg Diet Continue managment by ICU and pulm D/W Dr. Florian Cardenas PGY3
--- NOTE | 2018-08-09 13:53 | PN ---
DATE: 08/09/2018 SUBJECTIVE: This case was reviewed with Dr. Rocael Du from Surgery. Today, he is noted the patient to have a new airspace infiltrate of his right lung, questionable CHF versus pneumonitis. The patient remains weak and deconditioned and has recently been intubated twice and had bronchoscopy twice for suctioning of mucus plugging. Today, he is noted on physical exam to be in atrial fibrillation rhythm on monitoring manager. PHYSICAL EXAMINATION: VITAL SIGNS: His temperature is 97.3, respirations 18, pulse 75 and blood pressure 120/66. He is receiving high flow O2 at 40%. Physical exam is unchanged. LABORATORY DATA: Sodium 137, K 5.4, chloride 102, bicarb 31, BUN 51, creatinine 0.8, random blood sugar 140. Bilirubin 0.7, AST 43, ALT 135, alkaline phosphatase 78. White count 5100, hemoglobin 12.6, hematocrit 40.4, platelets 73,000. IMPRESSION: An 82-year-old male with prerenal azotemia. At present secondary to IV steroid continuation, which is being tapered. Also status post acute renal failure postoperatively from a right hemicolectomy treated with IV fluids now improved and comorbidities of chronic obstructive pulmonary disease, respiratory failure, seizure syndrome, chronic atrial fibrillation, type 2 diabetes mellitus, peptic ulcer disease with gastroesophageal reflux disease. PLAN: At present is to continue Mucomyst, Cardizem, Dilantin, Humalog, Pepcid, Solu-Medrol taper, Toprol and Xopenex. I will order one dose of Lasix 40 mg IV. He will have a repeat basic metabolic panel and CBC in the a.m. He is being monitored by Pulmonary and Infectious Disease as well as Cardiology and based on clinical progress, additional diagnostic workup and testing will be entertained. I do agree with steroid taper. Sara Ramirez MD MTDD
--- NOTE | 2018-08-09 14:08 | CP.PCM.CON ---
History of Present Illness - History of Present Illness History of Present Illness: Palliative consult requested by Dr Kiko Du Reason: Advance Care planning 82 year old male with history of cecal cancer, COPD, A Fib and seizure disorder who was scheduled for a right otis colectomy after colonoscopy showed a villous adenoma. The patient had scheduled right otis colcectomy and parastomal hernia repair on 07/30/18. After surgery patient developed JOHNNY, transaminitis, leukocytosis, low grade fevers and shortness of breath. PMHx: rectal cancer s/p resection,COPD, CAD,atrial fibrillation on Elequis,seizure disorder, TIA, GI bleed, CHF, anxiety PSHX: angioplasty, otis coloectomy and colostomy Social History: Former smoker, no alcohol or drug use. Family History:Non contributory Advance Care Planning: The patient does not have an Advanced Directive. Review of Systems:The patient complains of weakness,denies other complaints such as fever, chills, nausea, vomiting, diarrhea, constipation, chest pain, shortness of breath, cough,headache,dizziness or urinary symptoms. Past Patient History - Infectious Disease Hx of Infectious Diseases: None - Tetanus Immunizations Tetanus Immunization: Up to Date - Past Social History Smoking Status: Former Smoker - CARDIAC Hx Pacemaker: No - PULMONARY Hx Respiratory Disorders: Yes (USED TO SMOKE CIGARETTES.QUIT 1990) - NEUROLOGICAL Hx Paralysis: No - HEENT Hx HEENT Problems: Yes ([place] R ear, does not use hearing aid) Other/Comment: uses eyeglasses,uses dentures - RENAL Hx Chronic Kidney Disease: No - ENDOCRINE/METABOLIC Hx Endocrine Disorders: No - HEMATOLOGICAL/ONCOLOGICAL Hx Blood Transfusions: Yes (PLATELETS 07/2018) Hx Blood Transfusion Reaction: No - INTEGUMENTARY Hx Dermatological Problems: Yes Hx Melanoma: Yes (RIGHT PINNA,HEAD) - MUSCULOSKELETAL/RHEUMATOLOGICAL Hx Musculoskeletal Disorders: Yes - GASTROINTESTINAL Hx Gastrointestinal Disorders: Yes Hx Colostomy: Yes (2001/empties 2x's a day brown stool) Hx Gastroesophageal Reflux: Yes HX Swallowing Problems: Yes Other/Comment: rectal cancer, dysphagia due to foreign body chicken bone removed by dr boo and dr wilson as per pt - GENITOURINARY/GYNECOLOGICAL Hx Reproductive Disorders: No - PSYCHIATRIC Hx Emotional Abuse: No Hx Physical Abuse: No Hx Substance Use: No - SURGICAL HISTORY Hx Appendectomy: Yes Other/Comment: colostomy due to rectal ca, angioplasty - ANESTHESIA Hx Anesthesia Reactions: No Hx Malignant Hyperthermia: No Meds Allergies/Adverse Reactions: Allergies Allergy/AdvReac Type Severity Reaction Status Date / Time No Known Allergies Allergy Verified 07/12/18 16:57 - Medications Medications: Current Medications Acetylcysteine (Acetylcysteine 20%) 4 ml IH [id number] [facility] Last Admin: 08/09/18 13:47 Dose: 4 ml Apixaban (Eliquis) 2.5 mg PO BID [facility] Last Admin: 08/09/18 10:14 Dose: Not Given Dextrose (Dextrose 50% Inj) 0 ml IV STAT PRN; Protocol PRN Reason: Hypoglycemia Protocol Diltiazem HCl (Cardizem Cd) 360 mg PO DAILY [facility] Last Admin: 08/09/18 10:10 Dose: 360 mg Enoxaparin Sodium (Lovenox) 60 mg SC Q12H KD; Protocol Famotidine (Pepcid) 20 mg PO HS [facility] Last Admin: 08/08/18 21:28 Dose: 20 mg Dextrose (Dextrose 5% In Water 1000 Ml) 1,000 mls @ 0 mls/hr IV .Q0M PRN; Protocol PRN Reason: Hypoglycemia Protocol Insulin Human Lispro (Humalog Low) 0 units SC ACHS [facility]; Protocol Last Admin: 08/09/18 11:40 Dose: 1 u Levalbuterol HCl (Xopenex) 1.25 mg IH [id number] [facility] Last Admin: 08/09/18 13:47 Dose: 1.25 mg Methylprednisolone (Solu-Medrol) 20 mg IVP Q12 [facility] Last Admin: 08/09/18 10:10 Dose: 20 mg Metoprolol Succinate (Toprol Xl) 25 mg PO BID [facility] Last Admin: 08/09/18 10:12 Dose: 25 mg Phenytoin Sodium (Dilantin) 100 mg PO TID [facility] Last Admin: 08/09/18 10:12 Dose: 100 mg Results - Vital Signs Recent Vital Signs: Last Vital Signs Temp 97.9 F 08/09/18 11:05 Pulse 88 08/09/18 11:49 Resp 27 H 08/09/18 10:50 BP 143/68 08/09/18 12:10 Pulse Ox 97 08/09/18 10:50 - Labs Result Diagrams: 08/08/18 06:00 08/09/18 06:50 Labs: Laboratory Results - last 24 hr 08/06/18 08/07/18 08/07/18 21:46 07:21 11:22 Sodium Potassium Chloride Carbon Dioxide Anion Gap BUN Creatinine Est GFR ( Amer) Est GFR (Non-Af Amer) POC Glucose (mg/dL) 159 H 184 H 154 H Random Glucose Calcium Total Bilirubin AST ALT Alkaline Phosphatase NT-Pro-B Natriuret Pep Total Protein Albumin Globulin Albumin/Globulin Ratio 08/07/18 08/07/18 08/08/18 16:25 21:34 07:26 Sodium Potassium Chloride Carbon Dioxide Anion Gap BUN Creatinine Est GFR ( Amer) Est GFR (Non-Af Amer) POC Glucose (mg/dL) 173 H 148 H 151 H Random Glucose Calcium Total Bilirubin AST ALT Alkaline Phosphatase NT-Pro-B Natriuret Pep Total Protein Albumin Globulin Albumin/Globulin Ratio 08/08/18 08/08/18 08/08/18 10:26 15:46 22:17 Sodium Potassium Chloride Carbon Dioxide Anion Gap BUN Creatinine Est GFR ( Amer) Est GFR (Non-Af Amer) POC Glucose (mg/dL) 155 H 154 H 209 H Random Glucose Calcium Total Bilirubin AST ALT Alkaline Phosphatase NT-Pro-B Natriuret Pep Total Protein Albumin Globulin Albumin/Globulin Ratio 08/09/18 08/09/18 08/09/18 06:50 07:15 10:54 Sodium 137 Potassium 5.4 H Chloride 102 Carbon Dioxide 31 Anion Gap 9 L BUN 51 H Creatinine 0.8 Est GFR ( Amer) > 60 Est GFR (Non-Af Amer) > 60 POC Glucose (mg/dL) 143 H 176 H Random Glucose 140 H Calcium 8.4 Total Bilirubin 0.7 AST 43 ALT 135 H Alkaline Phosphatase 78 NT-Pro-B Natriuret Pep Total Protein 4.8 L Albumin 2.6 L Globulin 2.2 Albumin/Globulin Ratio 1.2 08/09/18 11:10 Sodium Potassium Chloride Carbon Dioxide Anion Gap BUN Creatinine Est GFR ( Amer) Est GFR (Non-Af Amer) POC Glucose (mg/dL) Random Glucose Calcium Total Bilirubin AST ALT Alkaline Phosphatase NT-Pro-B Natriuret Pep 3880 H Total Protein Albumin Globulin Albumin/Globulin Ratio Assessment & Plan - Assessment and Plan (Free Text) Assessment: 82 year old male with history of rectal cancer s/p resection and colostomy, A Fib, seizure disorder, COPD who is admitted after scheduled colon resection and parastomal hernia repair with leukocytosis, fever, cough, JOHNNY, transaminitis, thrombocytopenia, left lung atelectasis and bilateral pleural effusions. The patient is seen in the ICU. He isl alert and oriented. He offers no complaints. The patient asked to speak with me regarding advanced care planning. The patient does not have an Advanced Directive.Benefits and burdens of aggressive resuscitation explained. Questions answered. Patient verbalizes understanding of our conversation. The patient intends to discuss his wishes with his children before initiating an Advanced Directive. Will follow up with patient tomorrow regarding this matter. Time spent with patient in goals of care and advance care planning discussion, 30 minutes Plan: Goals of care and advance care planning Continue 02 support,Xopenex, aggressive chest PT, Solu medrol taper, monitor chest x ray's. Sepsis: resolved, blood /sputum cultures negative> ID following. Cardiology: Continue Eliquis, Cardizem,Metoprolol, DVT prophylaxis JOHNNY: Continue IVF's, monitor labs. Seizure disorder: Dilantin
[2018-08-09 14:39] LABS: BLOOD UREA NITROGEN 49 mg/dL (7-21); GFR NON-AFRICAN AMERICAN > 60
[2018-08-09] MEDS ORDERED: Morphine 2 mg/ml ISec IVP STA (14:59)
[2018-08-09] MEDS: Enoxaparin 60 mg Syringe SC SCH (16:41)
--- NOTE | 2018-08-09 19:17 | PN ---
DATE: 08/09/2018 REASON FOR CONSULTATION AND FOLLOWUP: AFib, history of right hemicolectomy, multiple times collapse of the left lung, status post multiple bronchoscopy, was on Eliquis and on hold now. SUBJECTIVE: The patient denies any chest pain, shortness of breath, or any palpitation. PHYSICAL EXAMINATION VITAL SIGNS: Temperature afebrile, heart rate 98, and blood pressure 143/68. HEENT: PERRLA, extraocular muscles are intact. NECK: Supple. No carotid bruits or thyromegaly. CHEST: Clear to auscultation. HEART: S1 and S2, regular. ABDOMEN: Soft. EXTREMITIES: Clubbing and cyanosis negative. LABORATORY DATA: WBC 5.1, hemoglobin 12.6, hematocrit 40.4, and platelet count 73. Chemistry showed sodium 137, potassium 5.4, chloride 102, carbon dioxide 31, anion gap of 9, BUN 51, and creatinine 0.8. IMPRESSION: Chronic atrial fibrillation, history of endovascular stent for abdominal aortic aneurysm, history of colostomy, history of atrial fibrillation, was on Eliquis on hold because postoperative and then the patient had multiple lung collapse, status post bronchoscopy multiple times, so it was on hold because of possible bleed during intubation as well as bronchoscopy, and history of colon cancer, status post right hemicolectomy. RECOMMENDATION: Continue to hold Eliquis for now until the respiratory status is stabilized. We will start Lovenox as the blood pressure continue Cardizem. We will start low-dose of Lovenox and monitor hemoglobin and hematocrit. If the patient's respiratory status remains stable, then we can consider restarting Eliquis. We will follow with you. We will discontinue Grecia and Eliquis and continue Lovenox. We will follow hemoglobin and hematocrit. Further recommendations to be in the hospital. We will follow with you. Thank you Dr. Du for providing us the opportunity in taking care of the patient, Alexia. Gladis Greenfield MD
--- NOTE | 2018-08-09 19:23 | PN ---
DATE: 08/09/2018 FOLLOWUP NOTE SUBJECTIVE: He is comfortable in bed, in no acute distress. Currently, he is on high-flow oxygen, on 2 liters oxygen by nasal cannula. No events overnight. He had lung collapse, status post in postop period. Due to mucus plugging, he underwent bronchoscopy twice. No chest pain, no fever, no bleeding from any sites. PHYSICAL EXAMINATION: GENERAL: Comfortable in bed, in no acute distress. VITAL SIGNS: Temperature 97, heart rate 88, respiratory rate 27 per minute, blood pressure 143/68. HEENT: Pallor positive. NECK: No lymphadenopathy. CHEST: Air entry decreased bilaterally. No crepitations. No rhonchi. CARDIOVASCULAR: Tachycardia present. ABDOMEN: Soft, nontender. Surgical dressing. EXTREMITIES: No edema. FISHING HAND: Alert and oriented x3. No focal sensory or motor deficits. LABORATORY DATA: White count 5.1, hemoglobin 12.6, hematocrit 40.4, platelets 73,000. Sodium 137, potassium 5.4, BUN 51, creatinine 0.8, glucose 140. MEDICATIONS: Eliquis 2.5 mg p.o. b.i.d., diltiazem 360 daily, Xopenex, Solu-Medrol every 12 hours, Dilantin 100 mg p.o. t.i.d. ASSESSMENT AND PLAN: 1. History of rectal cancer, in remission. 2. 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 3. Seizure disorder, on Dilantin. 4. Thrombocytopenia; due to idiopathic thrombocytopenic purpura. Platelet count stable at 76. Currently, on anticoagulation with Eliquis 2.5 mg b.i.d. which is on hold, Lovenox 60 mg subcutaneous every 12 hours, Cardizem 360 daily, Pepcid 20 mg daily, Xopenex, and Dilantin. Blood count, stable. Platelet count 73, stable. Renal function is normal. Respiratory status improved. Lesia Ledezma MD Jo # [id number]
--- NOTE | 2018-08-09 22:40 | PN ---
DATE: 08/09/2018 SUBJECTIVE: The patient is an 82-year-old, seen and examined, sitting in chair, seems to be comfortable. Has colostomy, seems to be functioning and he has hemorrhagic fluid in the RUSSELL drain. Also has [place] catheter on. He is sitting in chair. He has productive cough, mild shortness of breath. PHYSICAL EXAMINATION VITAL SIGNS: He is afebrile, pulse 128, respiration 22, blood pressure 163/79. LUNGS: Decreased breath sounds on the left side. HEART: S1 and S2 audible. ABDOMEN: Soft and nontender except at surgical site palpable discomfort. EXTREMITIES: Bilateral legs, he has SCDs. NEUROLOGIC: He is awake, alert and oriented. LABORATORY DATA: Today's chemistries; sodium 137, potassium 5.4, chloride 102, CO2 31, BUN 51, creatinine 0.3, blood sugar of 143. Hepatitis profile is negative. ASSESSMENT AND PLAN: 1. Status post right hemicolectomy. 2. Status post respiratory failure. 3. Bilateral pulmonary infiltrate. 4. Chronic atrial fibrillation. 5. Seizure disorder. PLAN: Continue the patient on Cardizem CD. He is on phenytoin. We will continue him on Eliquis. Monitor his blood sugar. He was given dose of Kayexalate today. He is on Lovenox for now. He is on methylprednisolone 20 mg every 12 hours and he is getting nebulizer treatment. We will followup his CBC and CMP in a.m. Tri Fleming MD
[2018-08-10] MEDS ORDERED: Morphine 2 mg/ml ISec IVP STA ×2 (00:23→02:15)
[2018-08-10] MEDS: Insulin Lispro (humaLOG) LOW Coverage SC SCH ×5 (00:25→23:37)
[2018-08-10] MEDS: Levalbuterol 1.25 MG/3 ML Inhal Soln UD IH SCH ×4 (01:16→20:23)
[2018-08-10] MEDS: Acetylcysteine 20% Inhal Soln (4ml) IH SCH ×4 (01:16→20:23)
[2018-08-10] MEDS: Enoxaparin 60 mg Syringe SC SCH ×2 (02:27→19:29)
[2018-08-10] MEDS: Oxycodone/Acetaminophen 5/325 mg Tab PO PRN ×3 (02:29→19:35)
[2018-08-10 06:50] LABS: GRAN # 14.39 (1.4-6.5); GRAN % 93.7 % (50.0-68.0); HEMOGLOBIN 14.5 g/dL (14.0-18.0); LYMPH # 0.6 (1.2-3.4); LYMPH % 3.9 % (22.0-35.0); MEAN CELL VOLUME 94.8 fl (80.0-105.0); MEAN CORPUSCULAR HEMOGLOBIN 29.2 pg (25.0-35.0); MEAN CORPUSCULAR HGB CONC 30.8 g/dl (31.0-37.0); MEAN PLATELET VOLUME 9.8 fl (7.0-11.0); MONO # 0.4 (0.1-0.6); MONO % 2.4 % (1.0-6.0); RBC 4.97 10^6/uL (3.5-6.1); RED CELL DISTRIBUTION WIDTH 15.4 % (11.5-14.5); WHITE BLOOD COUNT 15.4 10^3/uL (4.5-11.0)
[2018-08-10 07:05] LABS: ALB/GLOB RATIO 1.2 (1.1-1.8); ALBUMIN 2.7 g/dL (3.0-4.8); ALT/SGPT 116 U/L (7-56); AST/SGOT 35 U/L (17-59); BLOOD UREA NITROGEN 52 mg/dL (7-21); CALCIUM 8.5 mg/dL (8.4-10.5); GFR NON-AFRICAN AMERICAN > 60
[2018-08-10] MEDS ORDERED: Metoprolol 1 mg/ml Inj IVP STA (07:46)
--- NOTE | 2018-08-10 07:46 | PN ---
DATE: 08/10/2018(650AM-740AM) PULMONARY NOTE SUBJECTIVE: The patient appears comfortable this morning. He is not short of breath at rest. PHYSICAL EXAMINATION: VITAL SIGNS: Temperature is 97.2, pulse is 94, respirations 20, blood pressure 163/79. Oxygen saturation on high-flow delivery is 98%. HEENT: Normocephalic, atraumatic. No JVD. CARDIOVASCULAR: Systolic ejection murmur at the lower left sternal border. Questionable S3 gallop. LUNGS: Improved breath sounds bilaterally. Minimal/less rhonchi. No wheezing. EXTREMITIES: Mild edema. No cyanosis. No clubbing. Calves are nontender to palpation. GI: Abdomen is soft, nondistended and less tender to palpation. Abdomen is postoperative. SKIN: No acute rash. NEUROLOGIC: Limited at the present time. PERTINENT LABORATORY DATA: Chest x-ray was done this morning and reviewed. There is continued increased aeration noted to the left lung. There is also less right lower lobe "haziness". IMPRESSION: 1. Recurrent left lung atelectasis. 2. Chronic obstructive pulmonary disease. 3. Congestive heart failure. 4. Small bilateral pleural effusions. 5. Atrial fibrillation. 6. Status post right hemicolectomy. 7. Anemia, thrombocytopenia. PLAN: The patient appears comfortable this morning. He is not short of breath at rest. He does state to feeling much better overall. I did discuss the case with the night nurse at length. The night nurse stated that the patient had a pretty good night. However, there was increased drainage noted from the abdominal drain. Surgical input is noted. I did review the chest x-ray from this morning. There is continued increased aeration noted to the left lung. There is also a decrease in the right lower lobe "haziness". We will continue with the aggressive pulmonary toilet for now. On physical exam, there is certainly less bronchospasm noted. In addition, the alveolar-arterial gradient is also less. I will continue with the current nebulizer treatments and low-dose intravenous steroids for now. Inputs by Surgery and Infectious Disease are noted. Repeat a.m. labs are pending. Clinical status of the patient is significantly improved - compared to last week. His overall status/prognosis does remain very guarded. I will discuss the above with the entire ICU team in the next few moments. I will discuss the above with the attending physician later this morning. Rosalio Blevins MD MTDJevon
--- NOTE | 2018-08-10 09:03 | RAD ---
Date of service: 08/10/2018 HISTORY: follow up COMPARISON: Portable chest 08/09/2018. FINDINGS: LUNGS: Persistent atelectasis or infiltrate remains at the left base, borderline at the right once again. PLEURA: Left pleural effusions not excluded. Minimal right pleural effusion likely. No pneumothorax bilaterally. CARDIOVASCULAR: Calcific atherosclerotic changes are seen related to the thoracic aorta. Cardiac size appears stable. No definite pulmonary vascular congestion. OSSEOUS STRUCTURES: No significant abnormalities. VISUALIZED UPPER ABDOMEN: Normal. OTHER FINDINGS: None. IMPRESSION: Stable chest radiography with no interval change in left basilar consolidation or atelectasis and borderline similar findings at the right. Left-sided pleural effusion difficult to exclude, minimal at the right. Cardiac silhouette stable. No definite pulmonary vascular congestion.
--- NOTE | 2018-08-10 09:24 | PN ---
DATE: 08/10/2018 SUBJECTIVE: The patient was seen and examined at bedside. He is comfortable. He talks full sentences. He is not in respiratory or otherwise distress. PHYSICAL EXAMINATION: VITAL SIGNS: Heart rate 128-130 (irregular, ?AFib). Respiratory rate 18, oxygen saturation 99%, blood pressure 147/85. HEENT: Head and neck atraumatic, even though there is a bruise on his left eye which is not new and has been there for at least a week. No facial tenderness. No history of fall. HEART: Irregular rate and rhythm. S1, S2 normal. LUNGS: Clear to auscultation bilaterally. ABDOMEN: Soft. Mildly tender in perioperative area. No bowel sounds heard; however, colostomy looked pink and viable. There is brown colored stool in the colostomy bag present. The patient tolerates oral nutrition well and has good appetite as per the patient's nurse. MUSCULOSKELETAL: No C/C/E. NEUROLOGIC: The patient moves all extremities spontaneously. SKIN: Moist. PSYCHIATRIC: The patient is alert, awake, and oriented x3. LABORATORY DATA: WBC 15.4, hemoglobin 14.5, and platelet count 103, up from 73. Sodium 138, potassium 5.1, chloride 101, carbon dioxide 33, BUN 52, creatinine 1, glucose 138. AST 35, ALT 116, total bilirubin 1.1. Procalcitonin less than 0.05. MEDICATIONS: Acetylcysteine 20% inhaled every 6 hours, Cardizem CD 360 mg p.o. daily, Lovenox 60 mg subcu every 12 hours, Pepcid, Lasix 20 mg IV once, Xopenex every 6 hours, regular insulin sliding scale low protocol, metoprolol 25 mg p.o. b.i.d., Solu-Medrol 200 mg IV every 12 hours, Percocet p.r.n., and phenytoin. ASSESSMENT AND PLAN: This is AN 82-year-old gentleman with status post right hemicolectomy with colostomy placement. His postoperative course complicated by respiratory insufficiency due to mucus plug requiring bronchoscopy and advanced pulmonary toilet. At present time, his chest x-ray looks much better with some bibasilar atelectasis; however, no left or right lung whiteout. The patient is not in respiratory distress. He talks full sentences, very comfortable. His oxygen saturation varies between 98% and 100% on nasal cannula. I would continue aggressive pulmonary toilet including incentive spirometry, chest PT, out of bed to chair with postural drainage. When needed, nasotracheal suction can be instituted. Bronchodilators, low-dose steroids appears to be appropriate for this patient with severe emphysema and chronic obstructive pulmonary disease. The patient does have history of atrial fibrillation and heart rate control is important. The patient is on metoprolol and Cardizem CD. Of note, echocardiogram was done recently. The patient's heart rate appears to be a little bit better controlled. Recent echocardiogram revealed severe pulmonary hypertension with right ventricular insufficiency in the setting of left ventricular diastolic dysfunction. It is important to maintain heart rate control and euvolemia. I will give the patient Lasix today and we will more aggressively maintain heart rate control. We will continue with GI prophylaxis. The patient is on therapeutic dose of Lovenox. The patient does have a little bit of leukocytosis; however, he does not have fever and clinically appears to be comfortable. Sputum culture from 08/03/2018 did not reveal any microorganisms. His procalcitonin is less than 0.05. Blood culture from 08/01/2018 is also negative. I will repeat blood culture and urine culture. I will touch base with ID service whether they would be in favor of restarting abx. Bladder scanner did not reveal substantial urine retention. While low procalcitonin level cannot be interpreted as a solid evidence of no bacterial infection, nevertheless, it makes it less likely, especially in the setting of recent negative septic workup. Thus, I think that leukocytosis rather of noninfectious origin. I think optimization of cardiac function with heart rate control and maintaining euvolemia, (or even slightly negative fluid balance) may also be beneficial for renal function as the patient most likely has at least some component of cardiorenal syndrome. Colostomy looks good. Abdominal exam is appropriate for postoperative period. We will continue with GI prophylaxis. Discussed case with surgical service and cardiology service, both agreed that telemetry at this time would be appropriate for the patient. I agree with that as well. We will transfer the patient to telemetry. ccm time 40 min Ari Andujar MD [facility] # [id number]
[2018-08-10] MEDS: diltiaZEM 180 mg/24 Hours CD Cap PO SCH (09:25)
[2018-08-10] MEDS: Metoprolol Succinate 25 mg XL Tab PO SCH (09:28)
[2018-08-10] MEDS: MethylPREDNISolone 40 mg Vial IVP SCH ×2 (09:29→21:30)
--- NOTE | 2018-08-10 12:07 | CP.CCUPN ---
<Heather Adamson - Last Filed: 08/10/18 13:07> CCU Subjective - Physician Review Subjective (Free Text): CRITICAL CARE PROGRESS NOTE FOR DR. OG Adamson PGY1 Pt seen and examined at bedside this am. He reports fatigue, but no other acute complaints. 12 point ROS is negative CCU Objective - Vital Signs / Intake & Output Vital Signs (Last 4 hours): Vital Signs Pulse BP 08/10/18 09:28 111 H 127/71 08/10/18 09:25 111 H 127/71 08/10/18 08:09 147/65 Intake and Output (Last 8hrs): Intake & Output 08/09/18 08/10/18 08/10/18 22:59 06:59 14:59 Intake Total 800 800 Output Total 1480 1480 Balance -680 -680 Weight 143 lb Intake: Oral 800 800 Output: Drainage 480 480 Right Abdomen 480 480 Urine 1000 1000 Straight 1000 1000 Emesis 0 Other: # Bowel Movements 1 - Physical Exam Head: Positive for: Atraumatic, Normocephalic Pupils: Positive for: PERRL Extroacular Muscles: Positive for: EOMI Conjunctiva: Positive for: Normal Mouth: Positive for: Moist Mucous Membranes Pharnyx: Positive for: Normal Neck: Positive for: Normal Range of Motion Respiratory/Chest: Positive for: Clear to Auscultation, Good Air Exchange. Negative for: Respiratory Distress Cardiovascular: Positive for: Other (irregularly irregular rhythm) Abdomen: Positive for: Normal Bowel Sounds, Other (colostomy bag with brown stool noted. RUSSELL drain draining serous fluid). Negative for: Tenderness, Distention Upper Extremity: Positive for: Normal Inspection Lower Extremity: Positive for: Normal Inspection. Negative for: Edema Neurological: Positive for: GCS=15, Speech Normal Skin: Positive for: Warm, Dry, Normal Color Psychiatric: Positive for: Alert, Oriented x 3, Normal Insight, Normal Concentration - Medications Active Medications: Active Medications Generic Name Dose Route Start Last Admin Trade Name Freq PRN Reason Stop Dose Admin Acetylcysteine 4 ml 08/04/18 13:00 08/10/18 07:44 Acetylcysteine 20% IH 4 ml [id number] KD Administration Apixaban 2.5 mg 08/04/18 18:00 08/09/18 10:14 Eliquis PO Not Given BID KD Dextrose 0 ml 08/01/18 23:07 Dextrose 50% Inj IV STAT PRN Hypoglycemia Protocol Protocol Diltiazem HCl 360 mg 07/31/18 10:00 08/10/18 09:25 Cardizem Cd PO 360 mg DAILY KD Administration Enoxaparin Sodium 60 mg 08/09/18 13:30 08/10/18 02:27 Lovenox SC 60 mg Q12H KD Administration Protocol Famotidine 20 mg 08/05/18 22:00 08/09/18 21:42 Pepcid PO 20 mg HS KD Administration Dextrose 1,000 mls @ 0 mls/hr 08/01/18 23:07 Dextrose 5% In Water 1000 Ml IV .Q0M PRN Hypoglycemia Protocol Protocol Per Protocol Insulin Human Lispro 0 units 08/04/18 11:30 08/10/18 07:42 Humalog Low SC 1 u ACHS KD Administration Protocol Levalbuterol HCl 1.25 mg 08/02/18 14:00 08/10/18 07:44 Xopenex IH 1.25 mg [id number] KD Administration Lidocaine 1 ea 08/10/18 10:00 Lidoderm TD DAILY KD Methylprednisolone 20 mg 08/09/18 10:00 08/10/18 09:29 Solu-Medrol IVP 20 mg Q12 KD Administration Metoprolol Succinate 25 mg 07/31/18 10:00 08/10/18 09:28 Toprol Xl PO 25 mg BID KD Administration Oxycodone/Acetaminophen 1 tab 08/10/18 02:21 08/10/18 11:55 Percocet 5/325 Mg Tab PO 08/13/18 02:22 1 tab Q4H PRN Administration Pain, moderate (4-7) Phenytoin Sodium 100 mg 08/04/18 14:00 08/10/18 09:28 Dilantin PO 100 mg TID KD Administration - Patient Studies Lab Studies: Lab Studies 08/10/18 08/10/18 08/10/18 Range/Units 07:24 05:40 05:40 WBC 15.4 H D (4.5-11.0) 10^3/uL RBC 4.97 (3.5-6.1) 10^6/uL Hgb 14.5 (14.0-18.0) g/dL Hct 47.1 (42.0-52.0) % MCV 94.8 (80.0-105.0) fl MCH 29.2 (25.0-35.0) pg MCHC 30.8 L (31.0-37.0) g/dl RDW 15.4 H (11.5-14.5) % Plt Count 103 L (120.0-450.0) 10^3/uL MPV 9.8 (7.0-11.0) fl Gran % 93.7 H (50.0-68.0) % Lymph % (Auto) 3.9 L (22.0-35.0) % [place] % (Auto) 2.4 (1.0-6.0) % Eos % (Auto) 0.0 L (1.5-5.0) % Baso % (Auto) 0.0 (0.0-3.0) % Gran # 14.39 H (1.4-6.5) Lymph # (Auto) 0.6 L (1.2-3.4) [place] # (Auto) 0.4 (0.1-0.6) Eos # (Auto) 0.0 (0.0-0.7) Baso # (Auto) 0.00 (0.0-2.0) K/mm3 Sodium 138 (132-148) mmol/L Potassium 5.1 H (3.6-5.0) mmol/L Chloride 101 (98-107) mmol/L Carbon Dioxide 33 (21-33) mmol/L Anion Gap 10 (10-20) BUN 52 H (7-21) mg/dL Creatinine 1.0 (0.8-1.5) mg/dl Est GFR ( Amer) > 60 Est GFR (Non-Af Amer) > 60 POC Glucose (mg/dL) 179 H (65-110) mg/dL Random Glucose 138 H (70-110) mg/dL Calcium 8.5 (8.4-10.5) mg/dL Phosphorus 4.3 (2.5-4.5) mg/dL Magnesium 2.1 (1.7-2.2) mg/dL Total Bilirubin 1.1 (0.2-1.3) mg/dL AST 35 (17-59) U/L ALT 116 H (7-56) U/L Alkaline Phosphatase 68 (38-126) U/L Total Protein 5.0 L (5.8-8.3) g/dL Albumin 2.7 L (3.0-4.8) g/dL Globulin 2.2 gm/dL Albumin/Globulin Ratio 1.2 (1.1-1.8) Procalcitonin (0.19-0.49) NG/ML 08/09/18 08/09/18 08/09/18 Range/Units 21:41 16:10 14:26 WBC (4.5-11.0) 10^3/uL RBC (3.5-6.1) 10^6/uL Hgb (14.0-18.0) g/dL Hct (42.0-52.0) % MCV (80.0-105.0) fl MCH (25.0-35.0) pg MCHC (31.0-37.0) g/dl RDW (11.5-14.5) % Plt Count (120.0-450.0) 10^3/uL MPV (7.0-11.0) fl Gran % (50.0-68.0) % Lymph % (Auto) (22.0-35.0) % [place] % (Auto) (1.0-6.0) % Eos % (Auto) (1.5-5.0) % Baso % (Auto) (0.0-3.0) % Gran # (1.4-6.5) Lymph # (Auto) (1.2-3.4) [place] # (Auto) (0.1-0.6) Eos # (Auto) (0.0-0.7) Baso # (Auto) (0.0-2.0) K/mm3 Sodium (132-148) mmol/L Potassium (3.6-5.0) mmol/L Chloride (98-107) mmol/L Carbon Dioxide (21-33) mmol/L Anion Gap (10-20) BUN 49 H (7-21) mg/dL Creatinine 0.9 (0.8-1.5) mg/dl Est GFR ( Amer) > 60 Est GFR (Non-Af Amer) > 60 POC Glucose (mg/dL) 137 H 119 H (65-110) mg/dL Random Glucose (70-110) mg/dL Calcium (8.4-10.5) mg/dL Phosphorus (2.5-4.5) mg/dL Magnesium (1.7-2.2) mg/dL Total Bilirubin (0.2-1.3) mg/dL AST (17-59) U/L ALT (7-56) U/L Alkaline Phosphatase (38-126) U/L Total Protein (5.8-8.3) g/dL Albumin (3.0-4.8) g/dL Globulin gm/dL Albumin/Globulin Ratio (1.1-1.8) Procalcitonin (0.19-0.49) NG/ML 08/09/18 Range/Units 11:10 WBC (4.5-11.0) 10^3/uL RBC (3.5-6.1) 10^6/uL Hgb (14.0-18.0) g/dL Hct (42.0-52.0) % MCV (80.0-105.0) fl MCH (25.0-35.0) pg MCHC (31.0-37.0) g/dl RDW (11.5-14.5) % Plt Count (120.0-450.0) 10^3/uL MPV (7.0-11.0) fl Gran % (50.0-68.0) % Lymph % (Auto) (22.0-35.0) % [place] % (Auto) (1.0-6.0) % Eos % (Auto) (1.5-5.0) % Baso % (Auto) (0.0-3.0) % Gran # (1.4-6.5) Lymph # (Auto) (1.2-3.4) [place] # (Auto) (0.1-0.6) Eos # (Auto) (0.0-0.7) Baso # (Auto) (0.0-2.0) K/mm3 Sodium (132-148) mmol/L Potassium (3.6-5.0) mmol/L Chloride (98-107) mmol/L Carbon Dioxide (21-33) mmol/L Anion Gap (10-20) BUN (7-21) mg/dL Creatinine (0.8-1.5) mg/dl Est GFR ( Amer) Est GFR (Non-Af Amer) POC Glucose (mg/dL) (65-110) mg/dL Random Glucose (70-110) mg/dL Calcium (8.4-10.5) mg/dL Phosphorus (2.5-4.5) mg/dL Magnesium (1.7-2.2) mg/dL Total Bilirubin (0.2-1.3) mg/dL AST (17-59) U/L ALT (7-56) U/L Alkaline Phosphatase (38-126) U/L Total Protein (5.8-8.3) g/dL Albumin (3.0-4.8) g/dL Globulin gm/dL Albumin/Globulin Ratio (1.1-1.8) Procalcitonin < 0.05 L (0.19-0.49) NG/ML Laboratory Results - last 24 hr 08/09/18 08/09/18 08/09/18 11:10 14:26 16:10 WBC RBC Hgb Hct MCV MCH MCHC RDW Plt Count MPV Gran % Lymph % (Auto) [place] % (Auto) Eos % (Auto) Baso % (Auto) Gran # Lymph # (Auto) [place] # (Auto) Eos # (Auto) Baso # (Auto) Sodium Potassium Chloride Carbon Dioxide Anion Gap BUN 49 H Creatinine 0.9 Est GFR ( Amer) > 60 Est GFR (Non-Af Amer) > 60 POC Glucose (mg/dL) 119 H Random Glucose Calcium Phosphorus Magnesium Total Bilirubin AST ALT Alkaline Phosphatase Total Protein Albumin Globulin Albumin/Globulin Ratio Procalcitonin < 0.05 L 08/09/18 08/10/18 08/10/18 21:41 05:40 05:40 WBC 15.4 H D RBC 4.97 Hgb 14.5 Hct 47.1 MCV 94.8 MCH 29.2 MCHC 30.8 L RDW 15.4 H Plt Count 103 L MPV 9.8 Gran % 93.7 H Lymph % (Auto) 3.9 L [place] % (Auto) 2.4 Eos % (Auto) 0.0 L Baso % (Auto) 0.0 Gran # 14.39 H Lymph # (Auto) 0.6 L [place] # (Auto) 0.4 Eos # (Auto) 0.0 Baso # (Auto) 0.00 Sodium 138 Potassium 5.1 H Chloride 101 Carbon Dioxide 33 Anion Gap 10 BUN 52 H Creatinine 1.0 Est GFR ( Amer) > 60 Est GFR (Non-Af Amer) > 60 POC Glucose (mg/dL) 137 H Random Glucose 138 H Calcium 8.5 Phosphorus 4.3 Magnesium 2.1 Total Bilirubin 1.1 AST 35 ALT 116 H Alkaline Phosphatase 68 Total Protein 5.0 L Albumin 2.7 L Globulin 2.2 Albumin/Globulin Ratio 1.2 Procalcitonin 08/10/18 07:24 WBC RBC Hgb Hct MCV MCH MCHC RDW Plt Count MPV Gran % Lymph % (Auto) [place] % (Auto) Eos % (Auto) Baso % (Auto) Gran # Lymph # (Auto) [place] # (Auto) Eos # (Auto) Baso # (Auto) Sodium Potassium Chloride Carbon Dioxide Anion Gap BUN Creatinine Est GFR ( Amer) Est GFR (Non-Af Amer) POC Glucose (mg/dL) 179 H Random Glucose Calcium Phosphorus Magnesium Total Bilirubin AST ALT Alkaline Phosphatase Total Protein Albumin Globulin Albumin/Globulin Ratio Procalcitonin Fingerstick Blood Sugar Results: 179 Review of Systems - Review of Systems Review of Systems: per [facility] Critical Care Progress Note - Nutrition Nutrition: Nutrition Category Date Time Status Heart Healthy Diet [DIET] Diets 08/05/18 Dinner Active Assessment/Plan - Assessment and Plan (Free Text) Assessment: 82 y/o M with PMHx of rectal cancer POD 11 s/p R hemicolectomy & parastomal hernia repair (07/30) admitted to ICU for respiratory failure secondary to post- operative respiratory insufficiency secondary to mucus plugging of the L lung. S/p failed pulmonary toilet and s/p bronchoscopy w/ lavage x 2. Plan: Neuro/Psych: AxO x3, following commands, opens eyes spontaneously Hx of seizures continue phenytoin Reorient as necessary Cardio Echo reveals severe pulmonary hypertension w. R ventricular insufficiency in the setting of L ventricular dysfunction Afib on eliquis cardizem 360 daily metoprolol 25 bid Eliquis on hold per cardio until resp status improves as it is not reversible Therapeutic lovenox Monitor H/H Lasix today to maintain euvolemia Pulmonary Post-op respiratory insufficiency 2/2 mucus plugs s/p bronchoscopy w/ lavage 08/03 & 08/05. Repeat chest x-ray reveals improvement with bibasilar atelectasis Saturating 98-100% on HF 40L @ 40% FiO2 Continue aggressive pulmonary toilet, including IS, OOB to chair w/ postural drainage and chest PT Nasotracheal suction can be instituted COPD Xopenex q6h Acetylcysteine 4ml IH q6h Taper Solu-medrol 20mg IVP daily sputum cultures (-) GI S/p R hemicolectomy and parastoma hernioraphy Colostomy bag in place, brown stool noted. RUSSELL drain in place, draining serous fluid Monitor for signs of overt bleeding /Renal Maintain negative fluid balance maintain euvolemia Lasix today Heme H/H stable Tranfuse if Hgb <8 Continue eliquis ID Leukocytosis today Likely secondary to steroids DVT/GI PPx: Lovenox/Pepcid Case seen, examined and discussed with attending physician, Dr. Andujar <Ari Andujar - Last Filed: 08/11/18 07:21> CCU Objective - Vital Signs / Intake & Output Intake and Output (Last 8hrs): Intake & Output 08/10/18 08/11/18 08/11/18 22:59 06:59 14:59 Intake Total 300 Output Total 610 Balance -310 Intake: IV 50 Left Upper arm 50 Oral 250 Output: Drainage 160 Right Abdomen 160 Urine 450 Straight 450 - Medications Active Medications: Active Medications Generic Name Dose Route Start Last Admin Trade Name Freq PRN Reason Stop Dose Admin Acetylcysteine 4 ml 08/04/18 13:00 08/11/18 01:39 Acetylcysteine 20% IH 4 ml [id number] KD Administration Apixaban 2.5 mg 08/04/18 18:00 08/09/18 10:14 Eliquis PO Not Given BID KD Dextrose 0 ml 08/01/18 23:07 Dextrose 50% Inj IV STAT PRN Hypoglycemia Protocol Protocol Diltiazem HCl 360 mg 07/31/18 10:00 08/10/18 09:25 Cardizem Cd PO 360 mg DAILY KD Administration Enoxaparin Sodium 60 mg 08/09/18 13:30 08/10/18 19:29 Lovenox SC Not Given Q12H KD Protocol Famotidine 20 mg 08/05/18 22:00 08/10/18 21:30 Pepcid PO 20 mg HS KD Administration Hydromorphone HCl 0.5 mg 08/11/18 00:08 08/11/18 04:40 Dilaudid IVP 0.5 mg Q4H PRN Administration Pain, moderate (4-7) Dextrose 1,000 mls @ 0 mls/hr 08/01/18 23:07 Dextrose 5% In Water 1000 Ml IV .Q0M PRN Hypoglycemia Protocol Protocol Per Protocol Meropenem 1 gm in 50 mls @ 12.5 mls/hr 08/10/18 22:00 08/11/18 05:32 Merrem Iv 1 Gm Premix IVPB 12.5 mls/hr Q8 KD Administration Protocol Metronidazole 500 mg in 100 mls @ 100 mls/hr 08/10/18 22:30 08/11/18 05:32 Flagyl IVPB 100 mls/hr Q8 KD Administration Protocol Lactated Ringer's 1,000 mls @ 50 mls/hr 08/10/18 23:45 08/11/18 00:23 Lactated Ringer's IV 50 mls/hr .Q20H KD Administration Insulin Human Lispro 0 units 08/04/18 11:30 08/10/18 23:37 Humalog Low SC Not Given ACHS KD Protocol Levalbuterol HCl 1.25 mg 08/02/18 14:00 08/11/18 01:39 Xopenex IH 1.25 mg [id number] KD Administration Lidocaine 1 ea 08/10/18 10:00 08/10/18 15:00 Lidoderm TD 1 ea DAILY KD Administration Methylprednisolone 20 mg 08/09/18 10:00 08/10/18 21:30 Solu-Medrol IVP 20 mg Q12 KD Administration Metoprolol Tartrate 50 mg 08/10/18 17:00 08/10/18 19:28 Lopressor PO 50 mg [id number] KD Administration Oxycodone/Acetaminophen 1 tab 08/10/18 02:21 08/10/18 19:35 Percocet 5/325 Mg Tab PO 08/13/18 02:22 1 tab Q4H PRN Administration Pain, moderate (4-7) Phenytoin Sodium 100 mg 08/04/18 14:00 08/10/18 19:30 Dilantin PO 100 mg TID KD Administration - Patient Studies Lab Studies: Lab Studies 08/11/18 08/11/18 08/11/18 Range/Units 06:15 06:15 00:16 WBC 19.6 H D (4.5-11.0) 10^3/uL RBC 4.51 (3.5-6.1) 10^6/uL Hgb 13.2 L (14.0-18.0) g/dL Hct 42.7 (42.0-52.0) % MCV 94.7 (80.0-105.0) fl MCH 29.3 (25.0-35.0) pg MCHC 30.9 L (31.0-37.0) g/dl RDW 15.5 H (11.5-14.5) % Plt Count 104 L (120.0-450.0) 10^3/uL MPV 9.9 (7.0-11.0) fl Gran % 95.6 H (50.0-68.0) % Lymph % (Auto) 2.0 L (22.0-35.0) % [place] % (Auto) 2.4 (1.0-6.0) % Eos % (Auto) 0.0 L (1.5-5.0) % Baso % (Auto) 0.0 (0.0-3.0) % Gran # 18.71 H (1.4-6.5) Lymph # (Auto) 0.4 L (1.2-3.4) [place] # (Auto) 0.5 (0.1-0.6) Eos # (Auto) 0.0 (0.0-0.7) Baso # (Auto) 0.00 (0.0-2.0) K/mm3 Neutrophils % (Manual) (50.0-70.0) % Band Neutrophils % (0-2) % Lymphocytes % (Manual) (22.0-35.0) % Monocytes % (Manual) (1.0-6.0) % Platelet Evaluation (NORMAL) PT (9.4-12.5) SECONDS INR APTT (25.1-36.5) Seconds Sodium 139 138 (132-148) mmol/L Potassium 4.8 5.1 H (3.6-5.0) mmol/L Chloride 101 101 (98-107) mmol/L Carbon Dioxide 33 30 (21-33) mmol/L Anion Gap 10 12 (10-20) BUN 68 H 67 H (7-21) mg/dL Creatinine 1.3 1.2 (0.8-1.5) mg/dl Est GFR ( Amer) > 60 > 60 Est GFR (Non-Af Amer) 53 58 POC Glucose (mg/dL) (65-110) mg/dL Random Glucose 128 H 133 H (70-110) mg/dL Calcium 8.3 L 8.2 L (8.4-10.5) mg/dL Phosphorus 5.2 H (2.5-4.5) mg/dL Magnesium 2.2 (1.7-2.2) mg/dL Total Bilirubin 1.8 H (0.2-1.3) mg/dL AST 22 (17-59) U/L ALT 65 H (7-56) U/L Alkaline Phosphatase 54 (38-126) U/L Total Protein 4.7 L (5.8-8.3) g/dL Albumin 2.5 L (3.0-4.8) g/dL Globulin 2.1 gm/dL Albumin/Globulin Ratio 1.2 (1.1-1.8) Procalcitonin (0.19-0.49) NG/ML Blood Type Antibody Screen Crossmatch BBK History Checked 08/11/18 08/11/18 08/11/18 Range/Units 00:16 00:16 00:16 WBC 29.7 H* (4.5-11.0) 10^3/uL RBC 4.97 (3.5-6.1) 10^6/uL Hgb 15.0 (14.0-18.0) g/dL Hct 46.9 (42.0-52.0) % MCV 94.4 (80.0-105.0) fl MCH 30.2 (25.0-35.0) pg MCHC 32.0 (31.0-37.0) g/dl RDW 15.5 H (11.5-14.5) % Plt Count 95 L (120.0-450.0) 10^3/uL MPV 9.6 (7.0-11.0) fl Gran % 96.4 H (50.0-68.0) % Lymph % (Auto) 1.8 L (22.0-35.0) % [place] % (Auto) 1.8 (1.0-6.0) % Eos % (Auto) 0.0 L (1.5-5.0) % Baso % (Auto) 0.0 (0.0-3.0) % Gran # 28.65 H (1.4-6.5) Lymph # (Auto) 0.5 L (1.2-3.4) [place] # (Auto) 0.6 (0.1-0.6) Eos # (Auto) 0.0 (0.0-0.7) Baso # (Auto) 0.01 (0.0-2.0) K/mm3 Neutrophils % (Manual) (50.0-70.0) % Band Neutrophils % (0-2) % Lymphocytes % (Manual) (22.0-35.0) % Monocytes % (Manual) (1.0-6.0) % Platelet Evaluation (NORMAL) PT 13.4 H (9.4-12.5) SECONDS INR 1.17 APTT 35.3 (25.1-36.5) Seconds Sodium (132-148) mmol/L Potassium (3.6-5.0) mmol/L Chloride (98-107) mmol/L Carbon Dioxide (21-33) mmol/L Anion Gap (10-20) BUN (7-21) mg/dL Creatinine (0.8-1.5) mg/dl Est GFR ( Amer) Est GFR (Non-Af Amer) POC Glucose (mg/dL) (65-110) mg/dL Random Glucose (70-110) mg/dL Calcium (8.4-10.5) mg/dL Phosphorus (2.5-4.5) mg/dL Magnesium (1.7-2.2) mg/dL Total Bilirubin (0.2-1.3) mg/dL AST (17-59) U/L ALT (7-56) U/L Alkaline Phosphatase (38-126) U/L Total Protein (5.8-8.3) g/dL Albumin (3.0-4.8) g/dL Globulin gm/dL Albumin/Globulin Ratio (1.1-1.8) Procalcitonin (0.19-0.49) NG/ML Blood Type O POSITIVE Antibody Screen Negative Crossmatch See Detail BBK History Checked Patient has bt 08/10/18 08/10/18 08/10/18 Range/Units 21:42 17:09 17:09 WBC 30.7 H* (4.5-11.0) 10^3/uL RBC 5.24 (3.5-6.1) 10^6/uL Hgb 15.7 (14.0-18.0) g/dL Hct 49.4 (42.0-52.0) % MCV 94.3 (80.0-105.0) fl MCH 30.0 (25.0-35.0) pg MCHC 31.8 (31.0-37.0) g/dl RDW 15.5 H (11.5-14.5) % Plt Count 120 (120.0-450.0) 10^3/uL MPV 9.7 (7.0-11.0) fl Gran % 95.0 H (50.0-68.0) % Lymph % (Auto) 3.2 L (22.0-35.0) % [place] % (Auto) 1.8 (1.0-6.0) % Eos % (Auto) 0.0 L (1.5-5.0) % Baso % (Auto) 0.0 (0.0-3.0) % Gran # 29.12 H (1.4-6.5) Lymph # (Auto) 1.0 L (1.2-3.4) [place] # (Auto) 0.6 (0.1-0.6) Eos # (Auto) 0.0 (0.0-0.7) Baso # (Auto) 0.01 (0.0-2.0) K/mm3 Neutrophils % (Manual) 90 H (50.0-70.0) % Band Neutrophils % 2 (0-2) % Lymphocytes % (Manual) 4 L (22.0-35.0) % Monocytes % (Manual) 4 (1.0-6.0) % Platelet Evaluation Normal (NORMAL) PT (9.4-12.5) SECONDS INR APTT (25.1-36.5) Seconds Sodium 138 (132-148) mmol/L Potassium 5.1 H (3.6-5.0) mmol/L Chloride 101 (98-107) mmol/L Carbon Dioxide 31 (21-33) mmol/L Anion Gap 11 (10-20) BUN 61 H (7-21) mg/dL Creatinine 1.1 (0.8-1.5) mg/dl Est GFR ( Amer) > 60 Est GFR (Non-Af Amer) > 60 POC Glucose (mg/dL) 119 H (65-110) mg/dL Random Glucose 146 H (70-110) mg/dL Calcium 8.7 (8.4-10.5) mg/dL Phosphorus 5.0 H (2.5-4.5) mg/dL Magnesium 2.1 (1.7-2.2) mg/dL Total Bilirubin (0.2-1.3) mg/dL AST (17-59) U/L ALT (7-56) U/L Alkaline Phosphatase (38-126) U/L Total Protein (5.8-8.3) g/dL Albumin (3.0-4.8) g/dL Globulin gm/dL Albumin/Globulin Ratio (1.1-1.8) Procalcitonin (0.19-0.49) NG/ML Blood Type Antibody Screen Crossmatch BBK History Checked 08/10/18 08/10/18 08/10/18 Range/Units 16:37 11:12 09:00 WBC (4.5-11.0) 10^3/uL RBC (3.5-6.1) 10^6/uL Hgb (14.0-18.0) g/dL Hct (42.0-52.0) % MCV (80.0-105.0) fl MCH (25.0-35.0) pg MCHC (31.0-37.0) g/dl RDW (11.5-14.5) % Plt Count (120.0-450.0) 10^3/uL MPV (7.0-11.0) fl Gran % (50.0-68.0) % Lymph % (Auto) (22.0-35.0) % [place] % (Auto) (1.0-6.0) % Eos % (Auto) (1.5-5.0) % Baso % (Auto) (0.0-3.0) % Gran # (1.4-6.5) Lymph # (Auto) (1.2-3.4) [place] # (Auto) (0.1-0.6) Eos # (Auto) (0.0-0.7) Baso # (Auto) (0.0-2.0) K/mm3 Neutrophils % (Manual) (50.0-70.0) % Band Neutrophils % (0-2) % Lymphocytes % (Manual) (22.0-35.0) % Monocytes % (Manual) (1.0-6.0) % Platelet Evaluation (NORMAL) PT (9.4-12.5) SECONDS INR APTT (25.1-36.5) Seconds Sodium (132-148) mmol/L Potassium (3.6-5.0) mmol/L Chloride (98-107) mmol/L Carbon Dioxide (21-33) mmol/L Anion Gap (10-20) BUN (7-21) mg/dL Creatinine (0.8-1.5) mg/dl Est GFR ( Amer) Est GFR (Non-Af Amer) POC Glucose (mg/dL) 124 H 130 H (65-110) mg/dL Random Glucose (70-110) mg/dL Calcium (8.4-10.5) mg/dL Phosphorus (2.5-4.5) mg/dL Magnesium (1.7-2.2) mg/dL Total Bilirubin (0.2-1.3) mg/dL AST (17-59) U/L ALT (7-56) U/L Alkaline Phosphatase (38-126) U/L Total Protein (5.8-8.3) g/dL Albumin (3.0-4.8) g/dL Globulin gm/dL Albumin/Globulin Ratio (1.1-1.8) Procalcitonin 0.79 H (0.19-0.49) NG/ML Blood Type Antibody Screen Crossmatch BBK History Checked 08/10/18 Range/Units 07:24 WBC (4.5-11.0) 10^3/uL RBC (3.5-6.1) 10^6/uL Hgb (14.0-18.0) g/dL Hct (42.0-52.0) % MCV (80.0-105.0) fl MCH (25.0-35.0) pg MCHC (31.0-37.0) g/dl RDW (11.5-14.5) % Plt Count (120.0-450.0) 10^3/uL MPV (7.0-11.0) fl Gran % (50.0-68.0) % Lymph % (Auto) (22.0-35.0) % [place] % (Auto) (1.0-6.0) % Eos % (Auto) (1.5-5.0) % Baso % (Auto) (0.0-3.0) % Gran # (1.4-6.5) Lymph # (Auto) (1.2-3.4) [place] # (Auto) (0.1-0.6) Eos # (Auto) (0.0-0.7) Baso # (Auto) (0.0-2.0) K/mm3 Neutrophils % (Manual) (50.0-70.0) % Band Neutrophils % (0-2) % Lymphocytes % (Manual) (22.0-35.0) % Monocytes % (Manual) (1.0-6.0) % Platelet Evaluation (NORMAL) PT (9.4-12.5) SECONDS INR APTT (25.1-36.5) Seconds Sodium (132-148) mmol/L Potassium (3.6-5.0) mmol/L Chloride (98-107) mmol/L Carbon Dioxide (21-33) mmol/L Anion Gap (10-20) BUN (7-21) mg/dL Creatinine (0.8-1.5) mg/dl Est GFR ( Amer) Est GFR (Non-Af Amer) POC Glucose (mg/dL) 179 H (65-110) mg/dL Random Glucose (70-110) mg/dL Calcium (8.4-10.5) mg/dL Phosphorus (2.5-4.5) mg/dL Magnesium (1.7-2.2) mg/dL Total Bilirubin (0.2-1.3) mg/dL AST (17-59) U/L ALT (7-56) U/L Alkaline Phosphatase (38-126) U/L Total Protein (5.8-8.3) g/dL Albumin (3.0-4.8) g/dL Globulin gm/dL Albumin/Globulin Ratio (1.1-1.8) Procalcitonin (0.19-0.49) NG/ML Blood Type Antibody Screen Crossmatch BBK History Checked Laboratory Results - last 24 hr 08/10/18 08/10/18 08/10/18 07:24 09:00 11:12 WBC RBC Hgb Hct MCV MCH MCHC RDW Plt Count MPV Gran % Lymph % (Auto) [place] % (Auto) Eos % (Auto) Baso % (Auto) Gran # Lymph # (Auto) [place] # (Auto) Eos # (Auto) Baso # (Auto) Neutrophils % (Manual) Band Neutrophils % Lymphocytes % (Manual) Monocytes % (Manual) Platelet Evaluation PT INR APTT Sodium Potassium Chloride Carbon Dioxide Anion Gap BUN Creatinine Est GFR ( Amer) Est GFR (Non-Af Amer) POC Glucose (mg/dL) 179 H 130 H Random Glucose Calcium Phosphorus Magnesium Total Bilirubin AST ALT Alkaline Phosphatase Total Protein Albumin Globulin Albumin/Globulin Ratio Procalcitonin 0.79 H Blood Type Antibody Screen Crossmatch BBK History Checked 08/10/18 08/10/18 08/10/18 16:37 17:09 17:09 WBC 30.7 H* RBC 5.24 Hgb 15.7 Hct 49.4 MCV 94.3 MCH 30.0 MCHC 31.8 RDW 15.5 H Plt Count 120 MPV 9.7 Gran % 95.0 H Lymph % (Auto) 3.2 L [place] % (Auto) 1.8 Eos % (Auto) 0.0 L Baso % (Auto) 0.0 Gran # 29.12 H Lymph # (Auto) 1.0 L [place] # (Auto) 0.6 Eos # (Auto) 0.0 Baso # (Auto) 0.01 Neutrophils % (Manual) 90 H Band Neutrophils % 2 Lymphocytes % (Manual) 4 L Monocytes % (Manual) 4 Platelet Evaluation Normal PT INR APTT Sodium 138 Potassium 5.1 H Chloride 101 Carbon Dioxide 31 Anion Gap 11 BUN 61 H Creatinine 1.1 Est GFR ( Amer) > 60 Est GFR (Non-Af Amer) > 60 POC Glucose (mg/dL) 124 H Random Glucose 146 H Calcium 8.7 Phosphorus 5.0 H Magnesium 2.1 Total Bilirubin AST ALT Alkaline Phosphatase Total Protein Albumin Globulin Albumin/Globulin Ratio Procalcitonin Blood Type Antibody Screen Crossmatch BBK History Checked 08/10/18 08/11/18 08/11/18 21:42 00:16 00:16 WBC 29.7 H* RBC 4.97 Hgb 15.0 Hct 46.9 MCV 94.4 MCH 30.2 MCHC 32.0 RDW 15.5 H Plt Count 95 L MPV 9.6 Gran % 96.4 H Lymph % (Auto) 1.8 L [place] % (Auto) 1.8 Eos % (Auto) 0.0 L Baso % (Auto) 0.0 Gran # 28.65 H Lymph # (Auto) 0.5 L [place] # (Auto) 0.6 Eos # (Auto) 0.0 Baso # (Auto) 0.01 Neutrophils % (Manual) Band Neutrophils % Lymphocytes % (Manual) Monocytes % (Manual) Platelet Evaluation PT INR APTT Sodium Potassium Chloride Carbon Dioxide Anion Gap BUN Creatinine Est GFR ( Amer) Est GFR (Non-Af Amer) POC Glucose (mg/dL) 119 H Random Glucose Calcium Phosphorus Magnesium Total Bilirubin AST ALT Alkaline Phosphatase Total Protein Albumin Globulin Albumin/Globulin Ratio Procalcitonin Blood Type O POSITIVE Antibody Screen Negative Crossmatch See Detail BBK History Checked Patient has bt 08/11/18 08/11/18 08/11/18 00:16 00:16 06:15 WBC 19.6 H D RBC 4.51 Hgb 13.2 L Hct 42.7 MCV 94.7 MCH 29.3 MCHC 30.9 L RDW 15.5 H Plt Count 104 L MPV 9.9 Gran % 95.6 H Lymph % (Auto) 2.0 L [place] % (Auto) 2.4 Eos % (Auto) 0.0 L Baso % (Auto) 0.0 Gran # 18.71 H Lymph # (Auto) 0.4 L [place] # (Auto) 0.5 Eos # (Auto) 0.0 Baso # (Auto) 0.00 Neutrophils % (Manual) Band Neutrophils % Lymphocytes % (Manual) Monocytes % (Manual) Platelet Evaluation PT 13.4 H INR 1.17 APTT 35.3 Sodium 138 Potassium 5.1 H Chloride 101 Carbon Dioxide 30 Anion Gap 12 BUN 67 H Creatinine 1.2 Est GFR ( Amer) > 60 Est GFR (Non-Af Amer) 58 POC Glucose (mg/dL) Random Glucose 133 H Calcium 8.2 L Phosphorus Magnesium Total Bilirubin AST ALT Alkaline Phosphatase Total Protein Albumin Globulin Albumin/Globulin Ratio Procalcitonin Blood Type Antibody Screen Crossmatch BBK History Checked 08/11/18 06:15 WBC RBC Hgb Hct MCV MCH MCHC RDW Plt Count MPV Gran % Lymph % (Auto) [place] % (Auto) Eos % (Auto) Baso % (Auto) Gran # Lymph # (Auto) [place] # (Auto) Eos # (Auto) Baso # (Auto) Neutrophils % (Manual) Band Neutrophils % Lymphocytes % (Manual) Monocytes % (Manual) Platelet Evaluation PT INR APTT Sodium 139 Potassium 4.8 Chloride 101 Carbon Dioxide 33 Anion Gap 10 BUN 68 H Creatinine 1.3 Est GFR ( Amer) > 60 Est GFR (Non-Af Amer) 53 POC Glucose (mg/dL) Random Glucose 128 H Calcium 8.3 L Phosphorus 5.2 H Magnesium 2.2 Total Bilirubin 1.8 H AST 22 ALT 65 H Alkaline Phosphatase 54 Total Protein 4.7 L Albumin 2.5 L Globulin 2.1 Albumin/Globulin Ratio 1.2 Procalcitonin Blood Type Antibody Screen Crossmatch BBK History Checked Critical Care Progress Note - Nutrition Nutrition: Nutrition Category Date Time Status NPO Diet [DIET] Diets 08/10/18 Dinner Ordered Attending/Attestation - Attestation I have personally seen and examined this patient.: Yes I have fully participated in the care of the patient.: Yes I have reviewed all pertinent clinical information: Yes Notes (Text): 08/11/18 07:[address] Andujar note
--- NOTE | 2018-08-10 14:04 | CP.PCM.PN ---
Subjective - Date & Time of Evaluation Date of Evaluation: 08/10/18 Time of Evaluation: 13:45 - Subjective Subjective: Complaining of abdominal pain, nausea Objective - Vital Signs/Intake and Output Vital Signs (last 24 hours): Temp Pulse Resp BP Pulse Ox 97.2 F L 111 H 22 127/71 100 08/09/18 18:42 08/10/18 09:28 08/10/18 07:40 08/10/18 09:28 08/10/18 07:00 Intake and Output: 08/10/18 08/10/18 06:59 18:59 Intake Total 1600 Output Total 2960 Balance -1360 - Medications Medications: Current Medications Acetylcysteine (Acetylcysteine 20%) 4 ml IH [id number] [facility] Last Admin: 08/10/18 13:37 Dose: 4 ml Apixaban (Eliquis) 2.5 mg PO BID [facility] Last Admin: 08/09/18 10:14 Dose: Not Given Dextrose (Dextrose 50% Inj) 0 ml IV STAT PRN; Protocol PRN Reason: Hypoglycemia Protocol Diltiazem HCl (Cardizem Cd) 360 mg PO DAILY [facility] Last Admin: 08/10/18 09:25 Dose: 360 mg Enoxaparin Sodium (Lovenox) 60 mg SC Q12H [facility]; Protocol Last Admin: 08/10/18 02:27 Dose: 60 mg Famotidine (Pepcid) 20 mg PO HS [facility] Last Admin: 08/09/18 21:42 Dose: 20 mg Dextrose (Dextrose 5% In Water 1000 Ml) 1,000 mls @ 0 mls/hr IV .Q0M PRN; Protocol PRN Reason: Hypoglycemia Protocol Insulin Human Lispro (Humalog Low) 0 units SC ACHS [facility]; Protocol Last Admin: 08/10/18 12:12 Dose: Not Given Levalbuterol HCl (Xopenex) 1.25 mg IH [id number] [facility] Last Admin: 08/10/18 13:37 Dose: 1.25 mg Lidocaine (Lidoderm) 1 ea TD DAILY [facility] Methylprednisolone (Solu-Medrol) 20 mg IVP Q12 [facility] Last Admin: 08/10/18 09:29 Dose: 20 mg Metoprolol Succinate (Toprol Xl) 25 mg PO BID [facility] Last Admin: 08/10/18 09:28 Dose: 25 mg Oxycodone/Acetaminophen (Percocet 5/325 Mg Tab) 1 tab PO Q4H PRN PRN Reason: Pain, moderate (4-7) Stop: 08/13/18 02:22 Last Admin: 08/10/18 11:55 Dose: 1 tab Phenytoin Sodium (Dilantin) 100 mg PO TID [facility] Last Admin: 08/10/18 09:28 Dose: 100 mg - Labs Labs: 08/10/18 05:40 08/10/18 05:40 - Constitutional Appears: Chronically Ill - Head Exam Head Exam: NORMOCEPHALIC - Eye Exam Eye Exam: Normal appearance, PERRL Additional comments: healing ecchymotic area around left eye - ENT Exam ENT Exam: Mucous Membranes Moist - Neck Exam Neck Exam: Normal Inspection - Respiratory Exam Respiratory Exam: Decreased Breath Sounds - Cardiovascular Exam Cardiovascular Exam: Tachycardia, +S1, +S2 - GI/Abdominal Exam GI & Abdominal Exam: Tenderness, Normal Bowel Sounds - Extremities Exam Extremities Exam: Normal Capillary Refill, Normal Inspection - Neurological Exam Neurological Exam: Alert, Oriented x3 - Skin Skin Exam: Dry, Pallor Assessment and Plan - Assessment and Plan (Free Text) Assessment: 82 year old male with history of colon cancer,CHF, A Fib, COPD who is admitted s/p colon resection and parastomal hernia repair with leukocytosis, atel ectasis,thrombocytopnia. The patient is uncomfortable, complaining of generalized lower abdominal pain, nausea, tachycardia. The patient was asked if he had made decision regarding resuscitation status. Patient feels he wants to be full code but asked that we speak with his son Abelardo. Abelardo Anaya ([phone]) contacted and conversation held via speaker phone, Dr Parmjit Mansfield also present. The patient and son are in agreement that Abelardo will serve as his father's health care surrogate. Benefits and burdens of resuscitation explained. Questions answered. The patient has decided he will remain full code status. Advance Directive is completed, a copy is placed in the chart.The patient does not want dialysis. Psychosocial support provided. Time spent with patient and family in goals of care and advance care planning discussion, 50 minutes Plan: Goals of care and advance care planning
--- NOTE | 2018-08-10 14:22 | PN ---
DATE: 08/10/2018 PROGRESS NOTE ON CRITICAL CARE PATIENT SUBJECTIVE: This 82-year-old male was examined in CCU, bed 2 on the morning of 08/10/2018. Present for this interview was his grandson and case was reviewed in detail with the intensive care nurse, Dorcas. The patient is lying in bed wearing nasal O2 and denies any chest pain or shortness of breath. 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 PHYSICAL EXAMINATION: VITAL SIGNS: He is afebrile, pulse is 120, blood pressure 127/71 and respirations are 28 and unlabored. HEENT: Head: Normocephalic, atraumatic. Eyes: No icterus. Ears: Clear. Throat: Noninjected. NECK: Supple. HEART: Irregular S1, S2. LUNGS: With occasional rhonchi that clear with coughing. ABDOMEN: Soft. EXTREMITIES: No edema. SKIN: Without rash. NEUROLOGICAL: Deconditioned. VASCULAR: Legs warm to touch. PSYCHOLOGICAL: Alert and oriented x3. LABORATORY DATA: White count 15,400, hemoglobin 14.5, hematocrit 47.1, platelets 103,000. Sodium 138, K 5.1, chloride 101, bicarb 33, BUN 52, creatinine 1, random blood sugar 179, calcium 8.5, phosphorous 4.3, magnesium 2.1, bilirubin 1.1, AST 35, ALT 116, alk phos 68. Hepatitis A, B, C serologies are negative. IMPRESSION: An 82-year-old male, status post right hemicolectomy, now with functioning colostomy and comorbidities of chronic obstructive pulmonary disease, status post intubation x2 secondary to mucus plugging requiring bronchoscopy and aggressive pulmonary toiletry with chronic atrial fibrillation, now with rapid ventricular response, being treated with oral Cardizem and IV Lopressor and acute renal failure, now resolved with comorbidities of seizure, chronic atrial fibrillation, type 2 diabetes mellitus, peripheral neuropathy, peptic ulcer disease with gastroesophageal reflux disease, chronic hypertension and degenerative arthritis and cecal mass now removed benign on pathology. PLAN: The plan is to continue Mucomyst, Cardizem, Dilantin, Eliquis remains on hold, continuing Humalog insulin coverage before meals and at bedtime, Lidoderm, subcu Lovenox, Pepcid, IV Solu-Medrol taper, Toprol XL and Xopenex inhalational therapy. The patient is being readied for transfer to telemetry. He did receive one dose of IV Lasix. He will have a repeat CBC and basic metabolic panel in the a.m. and continues to be followed by Infectious Disease regarding leukocytosis and concerns of aspiration pneumonia. Greater than 35 minutes was spent in the care and management, review of labs, orders and x-rays and discussion of this patient with himself, his family at bedside and nursing. All questions were answered. Sara Ramirez MD MTDD
[2018-08-10] MEDS ORDERED: Metoprolol Succinate 50 mg XL Tab PO SCH (14:43)
[2018-08-10] MEDS ORDERED: Metoprolol 1 mg/ml Inj IVP ONE ×2 (14:44→21:30)
--- NOTE | 2018-08-10 14:53 | PN ---
DATE: 08/10/2018 REASON FOR THE CONSULTATION AND FOLLOWUP: AFib, history of right hemicolectomy, multiple times collapse of the left lung, status post bronch, status post intubated and now extubated, was on Eliquis on hold. SUBJECTIVE: The patient feels better. Denies any chest pain, shortness of breath. OBJECTIVE: GENERAL: Not in apparent distress. VITAL SIGNS: Temperature afebrile, heart rate 120, blood pressure 147/65. HEENT: PERRLA. Extraocular muscles intact. NECK: Supple. No carotid bruits or thyromegaly. CHEST: Clear to auscultation. HEART: S1, S2 regular. ABDOMEN: Soft. EXTREMITIES: Clubbing and cyanosis negative. LABORATORY DATA: Blood workup as follows: WBC 15.4, hemoglobin 14.5, hematocrit 47.1, platelet count 103. Chemistry shows sodium 130, potassium 5, chloride 101, carbon dioxide 33, anion gap of 10, BUN 15, creatinine 1. IMPRESSION: Recurrent collapse of the left lung, status post bronchoscopy, status post right hemicolectomy, history of colostomy in the past, history of abdominal aortic aneurysm, status post endovascular repair in 04/2018. Preop, the patient had a stress test and normal left ventricular function by echocardiogram. Chest x-ray today good expansion of the left side, but cannot rule out underlying right-sided lower lobe pneumonia, history of chronic atrial fibrillation, recurrent lung atelectasis, chronic obstructive pulmonary disease, atrial fibrillation, anemia, status post surgery. RECOMMENDATIONS: Discussed in length with resident taking care of the patient that keep him off Eliquis till the respiratory status stabilizes, keep on Lovenox to prevent stroke from AFib, monitor H and H, aggressive treatment, pulmonary toilet, antibiotic, continue Cardizem. We will add low-dose of beta-tammy to control the heart rate. We will repeat the EKG in the morning. We will increase the Lopressor to 25 b.i.d. Thank you, Dr. Du, for providing us the opportunity in taking care of the patient, Roshan Hale. Discussed with Dr. Andujar, air saw operator. Gladis Greenfield MD [facility] # [id number]
[2018-08-10] MEDS: Lidocaine 5% Patch TD SCH (15:00)
--- NOTE | 2018-08-10 16:09 | CP.PCM.PN ---
Subjective - Date & Time of Evaluation Date of Evaluation: 08/10/18 Time of Evaluation: 16:07 - Subjective Subjective: Surgery: Dr. Du Patient doing well this am. Denies SOB f/c/n/v. Tolerating diet. Some suprapubic pain. Objective - Vital Signs/Intake and Output Vital Signs (last 24 hours): Temp Pulse Resp BP Pulse Ox 97.2 F L 125 H 24 147/90 86 L 08/09/18 18:42 08/10/18 15:01 08/10/18 15:01 08/10/18 15:01 08/10/18 15:01 Intake and Output: 08/10/18 08/10/18 06:59 18:59 Intake Total 1600 Output Total 2960 Balance -1360 - Medications Medications: Current Medications Acetylcysteine (Acetylcysteine 20%) 4 ml IH [id number] [facility] Last Admin: 08/10/18 13:37 Dose: 4 ml Apixaban (Eliquis) 2.5 mg PO BID [facility] Last Admin: 08/09/18 10:14 Dose: Not Given Dextrose (Dextrose 50% Inj) 0 ml IV STAT PRN; Protocol PRN Reason: Hypoglycemia Protocol Diltiazem HCl (Cardizem Cd) 360 mg PO DAILY [facility] Last Admin: 08/10/18 09:25 Dose: 360 mg Enoxaparin Sodium (Lovenox) 60 mg SC Q12H [facility]; Protocol Last Admin: 08/10/18 02:27 Dose: Not Given Famotidine (Pepcid) 20 mg PO HS [facility] Last Admin: 08/09/18 21:42 Dose: 20 mg Dextrose (Dextrose 5% In Water 1000 Ml) 1,000 mls @ 0 mls/hr IV .Q0M PRN; Protocol PRN Reason: Hypoglycemia Protocol Insulin Human Lispro (Humalog Low) 0 units SC ACHS [facility]; Protocol Last Admin: 08/10/18 12:12 Dose: Not Given Levalbuterol HCl (Xopenex) 1.25 mg IH [id number] [facility] Last Admin: 08/10/18 13:37 Dose: 1.25 mg Lidocaine (Lidoderm) 1 ea TD DAILY [facility] Methylprednisolone (Solu-Medrol) 20 mg IVP Q12 [facility] Last Admin: 08/10/18 09:29 Dose: 20 mg Metoprolol Tartrate (Lopressor) 50 mg PO BRKDIN [facility] Oxycodone/Acetaminophen (Percocet 5/325 Mg Tab) 1 tab PO Q4H PRN PRN Reason: Pain, moderate (4-7) Stop: 08/13/18 02:22 Last Admin: 08/10/18 11:55 Dose: 1 tab Phenytoin Sodium (Dilantin) 100 mg PO TID [facility] Last Admin: 08/10/18 09:28 Dose: 100 mg - Labs Labs: 08/10/18 05:40 08/10/18 05:40 - Constitutional Appears: Non-toxic, No Acute Distress - Head Exam Head Exam: ATRAUMATIC, NORMOCEPHALIC - Eye Exam Eye Exam: EOMI, Normal appearance - ENT Exam ENT Exam: Mucous Membranes Moist - Respiratory Exam Respiratory Exam: NORMAL BREATHING PATTERN. absent: Respiratory Distress - Cardiovascular Exam Cardiovascular Exam: Tachycardia, REGULAR RHYTHM - GI/Abdominal Exam GI & Abdominal Exam: Soft, Normal Bowel Sounds. absent: Distended, Guarding, Tenderness, Rebound Additional comments: ostomy + output Assessment and Plan - Assessment and Plan (Free Text) Assessment: 82 yr old male POD 8 s/p right hemicolectomy and parastomal hernia repair Plan: -cont reg diet -percocet for pain -f/u drain fluid chem -aggressive pulmonary toilet -appreciate ICU care -further recs per Dr. Florian Osuna PGY4
[2018-08-10] MEDS ORDERED: Digoxin 500 mcg/2ml (0.5 mg/2ml) Inj IVP ONE (17:03)
--- NOTE | 2018-08-10 17:04 | PN ---
DATE: 08/10/2018 SUBJECTIVE: The patient is in bed, in no acute distress, was seen earlier today. He is comfortable. PHYSICAL EXAMINATION VITAL SIGNS: Temperature is 97, blood pressure is 120/70, respiratory rate 16. Examination of HEENT is unremarkable. NECK: Supple. HEART: Normal S1, S2. LUNGS: Have decreased breath sounds. ABDOMEN: Soft, nontender. LABORATORY EXAMINATION: Reveals a white count of 15,000, hemoglobin of 14, platelets of 103. Chemistries are noted. Procal yesterday is less than 0.05. Urinalysis is noted and hepatitis profile is negative. Microbiology is negative. Dr. Blevins's note is reviewed. Alycia Dunlap's note is reviewed. ASSESSMENT AND PLAN: This is an 82-year-old male who has been earlier today with severe sepsis, healthcare-associated pneumonia, acute kidney injury, respiratory failure, intubated on a ventilator now, extubated comfortably. Patient had a bronchoscopy by Dr. Blevins and procalcitonin is normalized, currently off antibiotics, afebrile. Patient is on Solu-Medrol, which was started yesterday which may explain the leukocytosis. Patient is at high risk of developing nosocomial infections. We will follow closely with you. Jason Garvin MD
[2018-08-10 17:12] LABS: BASO # 0.01 K/mm3 (0.0-2.0); GRAN # 29.12 (1.4-6.5); HEMOGLOBIN 15.7 g/dL (14.0-18.0); LYMPH % 3.2 % (22.0-35.0); MEAN CELL VOLUME 94.3 fl (80.0-105.0); MEAN CORPUSCULAR HGB CONC 31.8 g/dl (31.0-37.0); MEAN PLATELET VOLUME 9.7 fl (7.0-11.0); MONO # 0.6 (0.1-0.6); MONO % 1.8 % (1.0-6.0); PLATELET COUNT 120 10^3/uL (120.0-450.0); RBC 5.24 10^6/uL (3.5-6.1); RED CELL DISTRIBUTION WIDTH 15.5 % (11.5-14.5)
[2018-08-10 17:53] LABS: WHITE BLOOD COUNT 30.7 10^3/uL (4.5-11.0)
[2018-08-10 18:36] LABS: BLOOD UREA NITROGEN 61 mg/dL (7-21); CALCIUM 8.7 mg/dL (8.4-10.5); GFR NON-AFRICAN AMERICAN > 60
[2018-08-10 18:37] LABS: BAND 2 % (0-2); LYMPHOCYTE 4 % (22.0-35.0); MONOCYTE 4 % (1.0-6.0); NEUTROPHIL 90 % (50.0-70.0); PLATELET ESTIMATE NORMAL (NORMAL)
[2018-08-10] MEDS ORDERED: Sodium Chloride 0.9% 1,000 ML IV STA (18:51)
--- NOTE | 2018-08-10 20:03 | CP.PCM.PCO ---
Physician Communication Note - Physician Communication Note Physician Communication Note: De4c abd pain(Pubic)=C/S and CT ordered
[2018-08-10] MEDS: Meropenem IV 1 gm in NS 1 GM/50 ML BAG IVPB SCH (21:30)
[2018-08-10] MEDS: metroNIDAZOLE IV 500 mg/100 ml 500 MG/100 ML BAG IVPB SCH (22:40)
[2018-08-11] MEDS: Lactated Ringer's 1,000 ML IV SCH ×2 (00:23→19:00)
[2018-08-11] MEDS: HYDROmorphone 0.5 mg/0.5 ml ISec IVP PRN ×3 (00:25→20:31)
[2018-08-11 00:36] LABS: BASO # 0.01 K/mm3 (0.0-2.0); GRAN # 28.65 (1.4-6.5); GRAN % 96.4 % (50.0-68.0); LYMPH # 0.5 (1.2-3.4); LYMPH % 1.8 % (22.0-35.0); MEAN CELL VOLUME 94.4 fl (80.0-105.0); MEAN CORPUSCULAR HEMOGLOBIN 30.2 pg (25.0-35.0); MEAN PLATELET VOLUME 9.6 fl (7.0-11.0); MONO # 0.6 (0.1-0.6); MONO % 1.8 % (1.0-6.0); RBC 4.97 10^6/uL (3.5-6.1); RED CELL DISTRIBUTION WIDTH 15.5 % (11.5-14.5)
[2018-08-11 00:43] LABS: WHITE BLOOD COUNT 29.7 10^3/uL (4.5-11.0)
[2018-08-11 00:44] LABS: INR 1.17; PARTIAL THROMBOPLASTIN TIME 35.3 Seconds (25.1-36.5); PROTHROMBIN TIME 13.4 SECONDS (9.4-12.5)
[2018-08-11 00:47] LABS: BLOOD UREA NITROGEN 67 mg/dL (7-21); CALCIUM 8.2 mg/dL (8.4-10.5); GFR NON-AFRICAN AMERICAN 58
[2018-08-11] MEDS: Levalbuterol 1.25 MG/3 ML Inhal Soln UD IH SCH ×4 (01:39→20:06)
[2018-08-11] MEDS: Acetylcysteine 20% Inhal Soln (4ml) IH SCH ×4 (01:39→20:06)
--- NOTE | 2018-08-11 02:48 | PN ---
DATE: 08/10/2018 SUBJECTIVE: The patient is an 82-year-old, seen and examined sitting in chair. Not eating that well, he states he does not have appetite. He does have some shortness of breath. PHYSICAL EXAMINATION: VITAL SIGNS: He is afebrile, pulse 112, respirations 19, blood pressure 132/66. LUNGS: Bilateral decreased breath sound. HEART: S1 and S2 audible. ABDOMEN: Soft. Colostomy has brownish liquid stool. Complaining of pain in the left lower quadrant area. EXTREMITIES: Bilateral leg no edema. LABORATORY DATA: WBC 30.7, hemoglobin 15, hematocrit 49, platelets 120. Chemistry: Sodium 138, potassium 5.1, chloride 101, CO2 of 31, BUN 61, creatinine 1.1, blood sugar of 119. CT scan of the abdomen and pelvis that was ordered by Dr. Du earlier, results are pending. X-ray of the chest shows left basilar consolidation with atelectasis and left-sided pleural effusion. ASSESSMENT: 1. Status post right colectomy. 2. New leukocytosis. 3. New left lower quadrant pain. 4. Chronic atrial fibrillation. 5. Seizure disorder. 6. Hypertension. PLAN: Currently, the patient is on meropenem. I will add Flagyl for better antibiotic coverage. Follow up CT of the abdomen and pelvis that was done earlier. Tri Fleming MD
[2018-08-11] MEDS: metroNIDAZOLE IV 500 mg/100 ml 500 MG/100 ML BAG IVPB SCH ×3 (05:32→21:22)
[2018-08-11] MEDS: Meropenem IV 1 gm in NS 1 GM/50 ML BAG IVPB SCH ×3 (05:32→21:22)
--- NOTE | 2018-08-11 05:33 | CP.PCM.PCO ---
Physician Communication Note - Physician Communication Note Physician Communication Note: Perf viscus(?gastric)-OR 7M post platelets
[2018-08-11] MEDS ORDERED: Midazolam 2 MG/2 ML VIAL ONE (06:54)
[2018-08-11] MEDS ORDERED: Propofol 10 mg/ml Inj (20 ML) ONE (06:54)
[2018-08-11] MEDS ORDERED: Rocuronium 10 mg/ml (5 ml) ONE ×3 (06:54→10:41)
[2018-08-11] MEDS ORDERED: ePHEDrine 50 mg/ml Inj ONE (06:54)
[2018-08-11] MEDS ORDERED: Phenylephrine 10 mg/ml Inj ONE (06:54)
[2018-08-11 06:55] LABS: ALB/GLOB RATIO 1.2 (1.1-1.8); ALBUMIN 2.5 g/dL (3.0-4.8); ALT/SGPT 65 U/L (7-56); AST/SGOT 22 U/L (17-59); BLOOD UREA NITROGEN 68 mg/dL (7-21); CALCIUM 8.3 mg/dL (8.4-10.5); GFR NON-AFRICAN AMERICAN 53
[2018-08-11] MEDS ORDERED: Sevoflurane - Inhalation Anesthetic Liq (250 ml) ONE (06:55)
[2018-08-11 07:15] LABS: GRAN # 18.71 (1.4-6.5); GRAN % 95.6 % (50.0-68.0); HEMOGLOBIN 13.2 g/dL (14.0-18.0); LYMPH # 0.4 (1.2-3.4); MEAN CELL VOLUME 94.7 fl (80.0-105.0); MEAN CORPUSCULAR HEMOGLOBIN 29.3 pg (25.0-35.0); MEAN CORPUSCULAR HGB CONC 30.9 g/dl (31.0-37.0); MEAN PLATELET VOLUME 9.9 fl (7.0-11.0); MONO # 0.5 (0.1-0.6); MONO % 2.4 % (1.0-6.0); RBC 4.51 10^6/uL (3.5-6.1); RED CELL DISTRIBUTION WIDTH 15.5 % (11.5-14.5); WHITE BLOOD COUNT 19.6 10^3/uL (4.5-11.0)
[2018-08-11] MEDS ORDERED: Oxychlorosene Topical 2 gm Packet TOP ONE (07:51)
[2018-08-11] MEDS ORDERED: Bupivacaine 0.5% 50 ML IJ ONE (07:56)
[2018-08-11] MEDS ORDERED: Bupivacaine Liposomal Inj 20 ml ONE (07:57)
--- NOTE | 2018-08-11 08:01 | PN ---
DATE: 08/11/2018([id number]) PULMONARY NOTE DICTATION SUBJECTIVE: The patient appears uncomfortable this morning. He is mildly short of breath. He is also complaining of increased abdominal pain. PHYSICAL EXAMINATION: VITAL SIGNS: Last temperature recorded is 97.8, pulse on the monitor is 114, respiratory rate 22/24, blood pressure 149/92. Oxygen saturation on nasal cannula is 95%. HEENT: Normocephalic, atraumatic. No JVD. CARDIOVASCULAR: Systolic ejection murmur at the lower left sternal border. Questionable S3 gallop. LUNGS: Adequate breath sounds bilaterally. Minimal rhonchi. No wheezing. EXTREMITIES: Mild edema. No cyanosis, no clubbing. Calves are nontender to palpation. GI: Abdomen is soft and mildly distended. It is much more tender to palpation. Abdomen is postoperative. SKIN: No acute rash. NEUROLOGIC: Exam limited at the present time. PERTINENT LABORATORY DATA: Chest x-ray was done this morning and reviewed. Again, the film is poor/rotated. There is no significant left lung atelectasis noted. There is mild right lower lobe haziness. There are no significant effusions. There does appear to be possible air under the right hemidiaphragm. IMPRESSION: 1. Rule out intra-abdominal perforation. 2. Recurrent left lung atelectasis. 3. Chronic obstructive pulmonary disease. 4. Congestive heart failure. 5. Atrial fibrillation. 6. Status post right hemicolectomy. 7. Anemia, thrombocytopenia. PLAN: The patient appears uncomfortable this morning. He is mildly short of breath, but in no acute distress. He is complaining of increased abdominal pain. I did discuss the case with the nurse at length. The nurse informed me that over the last shift, the patient was evaluated for a possible acute intra-abdominal perforation. I did discuss the case with Dr. Du this morning. The patient is scheduled for the operating room later this morning. I did review the chest x-ray from this morning. There is no significant atelectasis noted of the left lung. There remains right lower lobe haziness. As above, there is possible small collection of air underneath the right hemidiaphragm. On physical exam, there is less bronchospasm noted. In addition, the alveolar-arterial gradient is also less. I will continue the current nebulizer treatments and low-dose intravenous steroids for now. Inputs by Infectious Disease and Internal Medicine are also noted. Clinical status of the patient remains very guarded at this point in time. I will discuss the above with the entire ICU team in the next few moments. Rosalio Blevins MD MTDJevon
[2018-08-11] MEDS: Insulin Lispro (humaLOG) LOW Coverage SC SCH ×3 (08:39→17:52)
[2018-08-11] MEDS ORDERED: MetroNIDAZOLE 500 mg/100 ml IVPB ONE (08:50)
[2018-08-11] MEDS ORDERED: metroNIDAZOLE IV 500 mg/100 ml 500 MG/100 ML BAG ONE (08:50)
--- NOTE | 2018-08-11 09:57 | CT ---
Date of service: 08/10/2018 PROCEDURE: CT Abdomen and Pelvis without intravenous contrast HISTORY: wbc-osis+abdo pain COMPARISON: None. TECHNIQUE: Without contrast.. Contrast dose: Radiation dose: Total exam DLP = 460.09 mGy-cm. This CT exam was performed using one or more of the following dose reduction techniques: Automated exposure control, adjustment of the mA and/or kV according to patient size, and/or use of iterative reconstruction technique. FINDINGS: LOWER THORAX: Small bilateral pleural effusions and bibasilar atelectasis. Cardiomegaly with small pericardial effusion. Large amount of postoperative free air beneath the diaphragms. LIVER: Unremarkable. No gross lesion or ductal dilatation. GALLBLADDER AND BILE DUCTS: Unremarkable. PANCREAS: Unremarkable. No gross lesion or ductal dilatation. SPLEEN: Unremarkable. ADRENALS: Unremarkable. No mass. KIDNEYS AND URETERS: Large bilateral renal stones. No evidence of hydronephrosis VASCULATURE: 5.7 cm aortic aneurysm treated with an aortic stent graft. Aortic calcifications BOWEL: Left lower quadrant ostomy. No evidence of obstruction. APPENDIX: Not visible PERITONEUM: There is a drainage catheter in the right lower quadrant. There is right lower quadrant mesenteric edema presumably postoperative. There is some adjacent bowel wall thickening. Minimal ascites LYMPH NODES: Unremarkable. No enlarged lymph nodes. BLADDER: Unremarkable. REPRODUCTIVE: Enlarged prostate with dense calcifications peripherally. BONES: No acute fracture. OTHER FINDINGS: The report concurs with the preliminary [facility] report IMPRESSION: Postoperative changes in the right lower quadrant. Postoperative free air. No evidence of intra-abdominal abscess.
[2018-08-11] MEDS: Metoprolol 1 mg/ml Inj IVP SCH ×4 (10:07→20:30)
--- NOTE | 2018-08-11 10:08 | PN ---
DATE: 08/11/2018 SUBJECTIVE: The patient was seen earlier this morning in the ICU and he appears weak. He has had no fevers. I received a call from Dr. Andujar last night regarding an increase in white count and concern about possible sources, for which CAT scan of the abdomen and pelvis was ordered and questionable perforation is found and possibly gastric. The patient is scheduled for OR this morning. PHYSICAL EXAMINATION: GENERAL: The patient is in bed. VITAL SIGNS: Temperature of 98, heart rate of 133, blood pressure is 150/60 with respiratory rate of 24. HEENT: Unremarkable. NECK: Supple. LUNGS: Decreased breath sounds. HEART: Normal S1, S2. ABDOMEN: Mild tenderness. No rebound or guarding. LABORATORY EXAMINATION: Reveals the patient*s white count is down to 19,600; it was 30,000 yesterday. Hemoglobin 13. Chemistries reveal the BUN of 60, creatinine of 1.3. Urinalysis is noted. Microbiology is reviewed. Blood cultures, no growth. Sputum cultures, no growth. Repeat cultures have been ordered. ASSESSMENT AND PLAN: An 82-year-old male who was seen earlier, who initially had severe sepsis, healthcare-associated pneumonia with acute kidney injury and respiratory failure, intubated, now extubated, had a bronchoscopy by Dr. Blevins and being off of antibiotics yesterday since patient*s condition changed. The patient had tachycardia, leukocytosis, and perforation in the abdomen. This gives gastric possibly a source sepsis with GI origin with perforation. We will use meropenem. The patient is scheduled for the OR this morning and we will check on the repeat mclaughlin cultures. The patient is on Solu-Medrol, also on Flagyl with meropenem. We will follow closely with you. Jason Garvin MD
--- NOTE | 2018-08-11 11:10 | PCM.SURG1 ---
Surgeon's Initial Post Op Note - Surgeon's Notes Surgeon: Dr. Du Print Line Operator: Dr. Cardenas PGY3 Type of Anesthesia: General Endo Anesthesia Administered By: Dr. Fong Pre-Operative Diagnosis: Free Air Operative Findings: See operative dictation Post-Operative Diagnosis: Ileal perforation X 2 Operation Performed: Exlap, ileocolic resection Specimen/Specimens Removed: ileum/colon Estimated Blood Loss: EBL {In ML}: 200 Blood Products Given: N/A Drains Used: Fabian Post-Op Condition: Good Date of Surgery/Procedure: 08/11/18 Time of Surgery/Procedure: 11:12
[2018-08-11] MEDS ORDERED: Dexmedetomidine 400mcg/100mL 400 MCG/100 ML BOTTLE IV PRN (11:18)
[2018-08-11] MEDS: MethylPREDNISolone 40 mg Vial IVP SCH (11:33)
[2018-08-11] MEDS: Lidocaine 5% Patch TD SCH ×2 (11:41→11:45)
[2018-08-11] MEDS: diltiaZEM 180 mg/24 Hours CD Cap PO SCH (11:54)
[2018-08-11] MEDS ORDERED: Fentanyl 1000mcg/100ml NS 1,000 MCG/100 ML BAG IV PRN (12:06)
--- NOTE | 2018-08-11 12:28 | PN ---
DATE: 08/11/2018 REASON FOR THE CONSULTATION AND FOLLOWUP: AFib, history of right hemicolectomy multiple times, collapse of the right lung, status post bronch, intubated, now extubated. SUBJECTIVE: This morning, the patient had a free air on way to OR for emergency exploratory laparotomy. PHYSICAL EXAMINATION: VITAL SIGNS: Temperature afebrile, heart rate 110, blood pressure 120/52. HEENT: PERRLA. Extraocular muscles intact. NECK: Supple. No carotid bruit or thyromegaly. CHEST: Clear to auscultation. HEART: S1, S2 regular. ABDOMEN: Soft, but has tenderness in the pubic area. EXTREMITIES: Clubbing and cyanosis negative. LABORATORY DATA: Blood workup, WBC 19.6, hemoglobin 13.2, hematocrit 42.7, platelet count 104. Chemistry: Sodium 139, potassium 4.9, chloride 101, carbon dioxide 33, anion gap of 10, BUN 16, creatinine 1.3. Yesterday WBC went to 30,000 at 3 p.m. IMPRESSION: Perforation of hollow viscus, going to the operating room, history of atrial fibrillation, history of pulmonary hypertension, chronic obstructive pulmonary disease, history of multiple times collapse of the left lung, status intubated, successfully extubated, multiple times bronchoscopy, history of abdominal aortic aneurysm, status post endovascular repair in 04/2018. Prior to endovascular stent, the patient had a stress test negative. Recent echocardiography, ejection fraction 25%, trace aortic regurgitation, no valvular aortic stenosis, moderate mitral regurgitation, redundant elongated chordae noted, moderate tricuspid regurgitation, right ventricular systolic pressure of 47. RECOMMENDATIONS: Last night discussed with Dr. Du and Renae is on hold. The patient going to OR with a high risk because of underlying morbidity and emergent surgery. Risk benefit ratio in favor of the patient to go to surgery. The patient is going because of exploratory laparotomy for perforation of hollow viscus, though risk could be very high. We will follow up postop n.p.o. and we will change to IV Lopressor. I will put IV beta tammy every 6 hours to control the heart rate. Overall the patient's condition is critical, prognosis is extremely guarded. We will put IV Lopressor every 6 hours, hold for systolic blood pressure 120 and heart rate less than 60. Thank you, Dr. Du for providing us the opportunity in taking care of the patient, Roshan Hale. Gladis Greenfield MD
--- NOTE | 2018-08-11 12:44 | RAD ---
Date of service: 08/11/2018 HISTORY: NGT placement COMPARISON: 08/10/2018 FINDINGS: LUNGS: No active pulmonary disease. PLEURA: Postoperative free air seen beneath the diaphragms. CARDIOVASCULAR: Aortic calcification Mild cardiomegaly no pulmonary vascular congestion. OSSEOUS STRUCTURES: No significant abnormalities. VISUALIZED UPPER ABDOMEN: Nasogastric tube in satisfactory position OTHER FINDINGS: None. IMPRESSION: Nasogastric tube in satisfactory position. Postoperative free air beneath the diaphragms
--- NOTE | 2018-08-11 12:48 | RAD ---
Date of service: 08/11/2018 HISTORY: NGT replacment COMPARISON: Earlier same day FINDINGS: LUNGS: No active pulmonary disease. PLEURA: No significant pleural effusion identified, no pneumothorax apparent. CARDIOVASCULAR: Aortic calcification Moderate cardiomegaly no pulmonary vascular congestion. OSSEOUS STRUCTURES: No significant abnormalities. VISUALIZED UPPER ABDOMEN: Nasogastric tube in satisfactory position. Postoperative free air beneath the diaphragms OTHER FINDINGS: None. IMPRESSION: Nasogastric tube in satisfactory position. Postoperative free air beneath the diaphragms
[2018-08-11] MEDS ORDERED: Metoprolol 1 mg/ml Inj IVP STA (13:03)
[2018-08-11 13:04] LABS: BASO # 0.01 K/mm3 (0.0-2.0); GRAN # 31.02 (1.4-6.5); GRAN % 95.6 % (50.0-68.0); HEMOGLOBIN 13.3 g/dL (14.0-18.0); LYMPH # 0.8 (1.2-3.4); LYMPH % 2.4 % (22.0-35.0); MEAN CELL VOLUME 96.9 fl (80.0-105.0); MEAN CORPUSCULAR HEMOGLOBIN 29.5 pg (25.0-35.0); MEAN CORPUSCULAR HGB CONC 30.4 g/dl (31.0-37.0); MEAN PLATELET VOLUME 9.3 fl (7.0-11.0); MONO # 0.7 (0.1-0.6); RBC 4.51 10^6/uL (3.5-6.1); RED CELL DISTRIBUTION WIDTH 15.7 % (11.5-14.5)
[2018-08-11 13:12] LABS: INR 1.26; PARTIAL THROMBOPLASTIN TIME 33.2 Seconds (25.1-36.5); PROTHROMBIN TIME 14.5 SECONDS (9.4-12.5)
[2018-08-11 13:13] LABS: WHITE BLOOD COUNT 32.5 10^3/uL (4.5-11.0)
[2018-08-11 13:14] LABS: ALB/GLOB RATIO 1.1 (1.1-1.8); ALBUMIN 2.5 g/dL (3.0-4.8); CALCIUM 7.9 mg/dL (8.4-10.5)
--- NOTE | 2018-08-11 13:15 | CP.CCUPN ---
<Heather Adamson - Last Filed: 08/11/18 15:48> CCU Subjective - Physician Review Subjective (Free Text): CRITICAL CARE PROGRESS NOTE FOR DR. OG Adamson PGY1 Pt seen and examined at bedside this am. Last night, pt was complaining of abdominal pain. CT of abdomen revealed free air in the peritoneum. Pt was sent to OR by surgery. He was returned to ICU for post-op management. He is sedated, intubated and on ventilator support. ROS unable to be obtained d/t sedation. CCU Objective - Vital Signs / Intake & Output Vital Signs (Last 4 hours): Vital Signs Pulse BP 08/11/18 13:08 145 H 96/57 L 08/11/18 11:29 145 H 151/56 H Intake and Output (Last 8hrs): Intake & Output 08/10/18 08/11/18 08/11/18 22:59 06:59 14:59 Intake Total 300 2500 19.3 Output Total 610 1020 Balance -310 1480 19.3 Weight 143 lb Intake: IV 50 2000 19.3 Left Upper arm 50 2000 Oral 250 500 Output: Drainage 160 120 Right Abdomen 160 120 Urine 450 450 Straight 450 450 Emesis 0 Oral Regurgitation 450 Other: # Bowel Movements 1 - Physical Exam Head: Positive for: Atraumatic, Normocephalic Pupils: Positive for: PERRL Conjunctiva: Positive for: Normal Mouth: Positive for: Moist Mucous Membranes Pharnyx: Positive for: Normal Respiratory/Chest: Positive for: Clear to Auscultation, Good Air Exchange. Negative for: Respiratory Distress Cardiovascular: Positive for: Other (irregularly irregular rhythm) Abdomen: Positive for: Normal Bowel Sounds, Other (Abdominal dressing in place). Negative for: Tenderness, Distention Genitourinary Male: Positive for: Prostate Tenderness Upper Extremity: Positive for: Normal Inspection Lower Extremity: Positive for: Normal Inspection. Negative for: Edema Neurological: Positive for: GCS=15, Speech Normal Skin: Positive for: Warm, Dry, Normal Color - Medications Active Medications: Active Medications Generic Name Dose Route Start Last Admin Trade Name Freq PRN Reason Stop Dose Admin Acetylcysteine 4 ml 08/04/18 13:00 08/11/18 07:29 Acetylcysteine 20% IH Not Given [id number] [facility] Apixaban 2.5 mg 08/04/18 18:00 08/09/18 10:14 Eliquis PO Not Given BID KD Dextrose 0 ml 08/01/18 23:07 Dextrose 50% Inj IV STAT PRN Hypoglycemia Protocol Protocol Diltiazem HCl 360 mg 07/31/18 10:00 08/11/18 11:54 Cardizem Cd PO Not Given DAILY KD Enoxaparin Sodium 60 mg 08/09/18 13:30 08/10/18 19:29 Lovenox SC Not Given Q12H KD Protocol Famotidine 20 mg 08/05/18 22:00 08/10/18 21:30 Pepcid PO 20 mg HS KD Administration Hydromorphone HCl 0.5 mg 08/11/18 00:08 08/11/18 04:40 Dilaudid IVP 0.5 mg Q4H PRN Administration Pain, moderate (4-7) Dextrose 1,000 mls @ 0 mls/hr 08/01/18 23:07 Dextrose 5% In Water 1000 Ml IV .Q0M PRN Hypoglycemia Protocol Protocol Per Protocol Metronidazole 500 mg in 100 mls @ 100 mls/hr 08/10/18 22:30 08/11/18 05:32 Flagyl IVPB 100 mls/hr Q8 KD Administration Protocol Lactated Ringer's 1,000 mls @ 50 mls/hr 08/10/18 23:45 08/11/18 00:23 Lactated Ringer's IV 50 mls/hr .Q20H KD Administration Meropenem 1 gm in 50 mls @ 100 mls/hr 08/11/18 10:00 08/11/18 11:29 Merrem Iv 1 Gm Premix IVPB 08/20/18 10:01 100 mls/hr Q12 KD Administration Protocol Dexmedetomidine HCl 400 mcg in 100 mls @ 3.243 mls/hr 08/11/18 11:18 08/11/18 13:09 Precedex 400mcg/100ml IV 0.6 mcg/kg/hr .Q24H PRN 9.73 mls/hr Agitation Titration Protocol 0.2 MCG/KG/HR Fentanyl Citrate 1,000 mcg in 100 mls @ 7.5 mls/hr 08/11/18 12:06 08/11/18 13:07 Fentanyl Citrate/Sodium Chloride 1 Mg/100 Ml IV 50 mcg/hr .[id number] PRN 5 mls/hr TITRATE PER MD ORDER Titration Protocol 75 MCG/HR Insulin Human Lispro 0 units 08/04/18 11:30 08/11/18 11:55 Humalog Low SC Not Given ACHS [facility] Protocol Levalbuterol HCl 1.25 mg 08/02/18 14:00 08/11/18 07:29 Xopenex IH Not Given [id number] KD Lidocaine 1 ea 08/10/18 10:00 08/11/18 11:45 Lidoderm TD Not Given DAILY [facility] Methylprednisolone 20 mg 08/12/18 10:00 Solu-Medrol IVP DAILY [facility] Metoprolol Tartrate 50 mg 08/10/18 17:00 08/11/18 08:38 Lopressor PO Not Given BRKDIN [facility] Metoprolol Tartrate 5 mg 08/11/18 09:00 08/11/18 11:29 Lopressor IVP 5 mg Q6H KD Administration Oxycodone/Acetaminophen 1 tab 08/10/18 02:21 08/10/18 19:35 Percocet 5/325 Mg Tab PO 08/13/18 02:22 1 tab Q4H PRN Administration Pain, moderate (4-7) Phenytoin 100 mg 08/11/18 18:00 Dilantin IVP BID [facility] Phenytoin Sodium 100 mg 08/04/18 14:00 08/11/18 11:55 Dilantin PO Not Given TID [facility] - Patient Studies Lab Studies: Microbiology Studies 08/10/18 20:40 C. difficile Antigen & Toxins A,B - Final Stool 08/10/18 11:00 Urine Culture - Final Urine,Random No Growth (<1,000 CFU/ML) 08/10/18 09:15 Blood Culture - Preliminary Blood NO GROWTH AFTER 24 HOURS 08/10/18 09:00 Blood Culture - Preliminary Blood NO GROWTH AFTER 24 HOURS Lab Studies 08/11/18 08/11/18 08/11/18 Range/Units 12:50 12:50 06:15 WBC 32.5 H* D (4.5-11.0) 10^3/uL RBC 4.51 (3.5-6.1) 10^6/uL Hgb 13.3 L (14.0-18.0) g/dL Hct 43.7 (42.0-52.0) % MCV 96.9 (80.0-105.0) fl MCH 29.5 (25.0-35.0) pg MCHC 30.4 L (31.0-37.0) g/dl RDW 15.7 H (11.5-14.5) % Plt Count 194 (120.0-450.0) 10^3/uL MPV 9.3 (7.0-11.0) fl Gran % 95.6 H (50.0-68.0) % Lymph % (Auto) 2.4 L (22.0-35.0) % [place] % (Auto) 2.0 (1.0-6.0) % Eos % (Auto) 0.0 L (1.5-5.0) % Baso % (Auto) 0.0 (0.0-3.0) % Gran # 31.02 H (1.4-6.5) Lymph # (Auto) 0.8 L (1.2-3.4) [place] # (Auto) 0.7 H (0.1-0.6) Eos # (Auto) 0.0 (0.0-0.7) Baso # (Auto) 0.01 (0.0-2.0) K/mm3 Neutrophils % (Manual) (50.0-70.0) % Band Neutrophils % (0-2) % Lymphocytes % (Manual) (22.0-35.0) % Monocytes % (Manual) (1.0-6.0) % Platelet Evaluation (NORMAL) PT 14.5 H (9.4-12.5) SECONDS INR 1.26 APTT 33.2 (25.1-36.5) Seconds Sodium 139 (132-148) mmol/L Potassium 4.8 (3.6-5.0) mmol/L Chloride 101 (98-107) mmol/L Carbon Dioxide 33 (21-33) mmol/L Anion Gap 10 (10-20) BUN 68 H (7-21) mg/dL Creatinine 1.3 (0.8-1.5) mg/dl Est GFR ( Amer) > 60 Est GFR (Non-Af Amer) 53 POC Glucose (mg/dL) (65-110) mg/dL Random Glucose 128 H (70-110) mg/dL Calcium 8.3 L (8.4-10.5) mg/dL Phosphorus 5.2 H (2.5-4.5) mg/dL Magnesium 2.2 (1.7-2.2) mg/dL Total Bilirubin 1.8 H (0.2-1.3) mg/dL AST 22 (17-59) U/L ALT 65 H (7-56) U/L Alkaline Phosphatase 54 (38-126) U/L Total Protein 4.7 L (5.8-8.3) g/dL Albumin 2.5 L (3.0-4.8) g/dL Globulin 2.1 gm/dL Albumin/Globulin Ratio 1.2 (1.1-1.8) Procalcitonin (0.19-0.49) NG/ML Blood Type Antibody Screen Crossmatch BBK History Checked 08/11/18 08/11/18 08/11/18 Range/Units 06:15 00:16 00:16 WBC 19.6 H D (4.5-11.0) 10^3/uL RBC 4.51 (3.5-6.1) 10^6/uL Hgb 13.2 L (14.0-18.0) g/dL Hct 42.7 (42.0-52.0) % MCV 94.7 (80.0-105.0) fl MCH 29.3 (25.0-35.0) pg MCHC 30.9 L (31.0-37.0) g/dl RDW 15.5 H (11.5-14.5) % Plt Count 104 L (120.0-450.0) 10^3/uL MPV 9.9 (7.0-11.0) fl Gran % 95.6 H (50.0-68.0) % Lymph % (Auto) 2.0 L (22.0-35.0) % [place] % (Auto) 2.4 (1.0-6.0) % Eos % (Auto) 0.0 L (1.5-5.0) % Baso % (Auto) 0.0 (0.0-3.0) % Gran # 18.71 H (1.4-6.5) Lymph # (Auto) 0.4 L (1.2-3.4) [place] # (Auto) 0.5 (0.1-0.6) Eos # (Auto) 0.0 (0.0-0.7) Baso # (Auto) 0.00 (0.0-2.0) K/mm3 Neutrophils % (Manual) (50.0-70.0) % Band Neutrophils % (0-2) % Lymphocytes % (Manual) (22.0-35.0) % Monocytes % (Manual) (1.0-6.0) % Platelet Evaluation (NORMAL) PT 13.4 H (9.4-12.5) SECONDS INR 1.17 APTT 35.3 (25.1-36.5) Seconds Sodium 138 (132-148) mmol/L Potassium 5.1 H (3.6-5.0) mmol/L Chloride 101 (98-107) mmol/L Carbon Dioxide 30 (21-33) mmol/L Anion Gap 12 (10-20) BUN 67 H (7-21) mg/dL Creatinine 1.2 (0.8-1.5) mg/dl Est GFR ( Amer) > 60 Est GFR (Non-Af Amer) 58 POC Glucose (mg/dL) (65-110) mg/dL Random Glucose 133 H (70-110) mg/dL Calcium 8.2 L (8.4-10.5) mg/dL Phosphorus (2.5-4.5) mg/dL Magnesium (1.7-2.2) mg/dL Total Bilirubin (0.2-1.3) mg/dL AST (17-59) U/L ALT (7-56) U/L Alkaline Phosphatase (38-126) U/L Total Protein (5.8-8.3) g/dL Albumin (3.0-4.8) g/dL Globulin gm/dL Albumin/Globulin Ratio (1.1-1.8) Procalcitonin (0.19-0.49) NG/ML Blood Type Antibody Screen Crossmatch BBK History Checked 08/11/18 08/11/18 08/10/18 Range/Units 00:16 00:16 21:42 WBC 29.7 H* (4.5-11.0) 10^3/uL RBC 4.97 (3.5-6.1) 10^6/uL Hgb 15.0 (14.0-18.0) g/dL Hct 46.9 (42.0-52.0) % MCV 94.4 (80.0-105.0) fl MCH 30.2 (25.0-35.0) pg MCHC 32.0 (31.0-37.0) g/dl RDW 15.5 H (11.5-14.5) % Plt Count 95 L (120.0-450.0) 10^3/uL MPV 9.6 (7.0-11.0) fl Gran % 96.4 H (50.0-68.0) % Lymph % (Auto) 1.8 L (22.0-35.0) % [place] % (Auto) 1.8 (1.0-6.0) % Eos % (Auto) 0.0 L (1.5-5.0) % Baso % (Auto) 0.0 (0.0-3.0) % Gran # 28.65 H (1.4-6.5) Lymph # (Auto) 0.5 L (1.2-3.4) [place] # (Auto) 0.6 (0.1-0.6) Eos # (Auto) 0.0 (0.0-0.7) Baso # (Auto) 0.01 (0.0-2.0) K/mm3 Neutrophils % (Manual) (50.0-70.0) % Band Neutrophils % (0-2) % Lymphocytes % (Manual) (22.0-35.0) % Monocytes % (Manual) (1.0-6.0) % Platelet Evaluation (NORMAL) PT (9.4-12.5) SECONDS INR APTT (25.1-36.5) Seconds Sodium (132-148) mmol/L Potassium (3.6-5.0) mmol/L Chloride (98-107) mmol/L Carbon Dioxide (21-33) mmol/L Anion Gap (10-20) BUN (7-21) mg/dL Creatinine (0.8-1.5) mg/dl Est GFR ( Amer) Est GFR (Non-Af Amer) POC Glucose (mg/dL) 119 H (65-110) mg/dL Random Glucose (70-110) mg/dL Calcium (8.4-10.5) mg/dL Phosphorus (2.5-4.5) mg/dL Magnesium (1.7-2.2) mg/dL Total Bilirubin (0.2-1.3) mg/dL AST (17-59) U/L ALT (7-56) U/L Alkaline Phosphatase (38-126) U/L Total Protein (5.8-8.3) g/dL Albumin (3.0-4.8) g/dL Globulin gm/dL Albumin/Globulin Ratio (1.1-1.8) Procalcitonin (0.19-0.49) NG/ML Blood Type O POSITIVE Antibody Screen Negative Crossmatch See Detail BBK History Checked Patient has bt 08/10/18 08/10/18 08/10/18 Range/Units 17:09 17:09 16:37 WBC 30.7 H* (4.5-11.0) 10^3/uL RBC 5.24 (3.5-6.1) 10^6/uL Hgb 15.7 (14.0-18.0) g/dL Hct 49.4 (42.0-52.0) % MCV 94.3 (80.0-105.0) fl MCH 30.0 (25.0-35.0) pg MCHC 31.8 (31.0-37.0) g/dl RDW 15.5 H (11.5-14.5) % Plt Count 120 (120.0-450.0) 10^3/uL MPV 9.7 (7.0-11.0) fl Gran % 95.0 H (50.0-68.0) % Lymph % (Auto) 3.2 L (22.0-35.0) % [place] % (Auto) 1.8 (1.0-6.0) % Eos % (Auto) 0.0 L (1.5-5.0) % Baso % (Auto) 0.0 (0.0-3.0) % Gran # 29.12 H (1.4-6.5) Lymph # (Auto) 1.0 L (1.2-3.4) [place] # (Auto) 0.6 (0.1-0.6) Eos # (Auto) 0.0 (0.0-0.7) Baso # (Auto) 0.01 (0.0-2.0) K/mm3 Neutrophils % (Manual) 90 H (50.0-70.0) % Band Neutrophils % 2 (0-2) % Lymphocytes % (Manual) 4 L (22.0-35.0) % Monocytes % (Manual) 4 (1.0-6.0) % Platelet Evaluation Normal (NORMAL) PT (9.4-12.5) SECONDS INR APTT (25.1-36.5) Seconds Sodium 138 (132-148) mmol/L Potassium 5.1 H (3.6-5.0) mmol/L Chloride 101 (98-107) mmol/L Carbon Dioxide 31 (21-33) mmol/L Anion Gap 11 (10-20) BUN 61 H (7-21) mg/dL Creatinine 1.1 (0.8-1.5) mg/dl Est GFR ( Amer) > 60 Est GFR (Non-Af Amer) > 60 POC Glucose (mg/dL) 124 H (65-110) mg/dL Random Glucose 146 H (70-110) mg/dL Calcium 8.7 (8.4-10.5) mg/dL Phosphorus 5.0 H (2.5-4.5) mg/dL Magnesium 2.1 (1.7-2.2) mg/dL Total Bilirubin (0.2-1.3) mg/dL AST (17-59) U/L ALT (7-56) U/L Alkaline Phosphatase (38-126) U/L Total Protein (5.8-8.3) g/dL Albumin (3.0-4.8) g/dL Globulin gm/dL Albumin/Globulin Ratio (1.1-1.8) Procalcitonin (0.19-0.49) NG/ML Blood Type Antibody Screen Crossmatch BBK History Checked 08/10/18 08/10/18 Range/Units 11:12 09:00 WBC (4.5-11.0) 10^3/uL RBC (3.5-6.1) 10^6/uL Hgb (14.0-18.0) g/dL Hct (42.0-52.0) % MCV (80.0-105.0) fl MCH (25.0-35.0) pg MCHC (31.0-37.0) g/dl RDW (11.5-14.5) % Plt Count (120.0-450.0) 10^3/uL MPV (7.0-11.0) fl Gran % (50.0-68.0) % Lymph % (Auto) (22.0-35.0) % [place] % (Auto) (1.0-6.0) % Eos % (Auto) (1.5-5.0) % Baso % (Auto) (0.0-3.0) % Gran # (1.4-6.5) Lymph # (Auto) (1.2-3.4) [place] # (Auto) (0.1-0.6) Eos # (Auto) (0.0-0.7) Baso # (Auto) (0.0-2.0) K/mm3 Neutrophils % (Manual) (50.0-70.0) % Band Neutrophils % (0-2) % Lymphocytes % (Manual) (22.0-35.0) % Monocytes % (Manual) (1.0-6.0) % Platelet Evaluation (NORMAL) PT (9.4-12.5) SECONDS INR APTT (25.1-36.5) Seconds Sodium (132-148) mmol/L Potassium (3.6-5.0) mmol/L Chloride (98-107) mmol/L Carbon Dioxide (21-33) mmol/L Anion Gap (10-20) BUN (7-21) mg/dL Creatinine (0.8-1.5) mg/dl Est GFR ( Amer) Est GFR (Non-Af Amer) POC Glucose (mg/dL) 130 H (65-110) mg/dL Random Glucose (70-110) mg/dL Calcium (8.4-10.5) mg/dL Phosphorus (2.5-4.5) mg/dL Magnesium (1.7-2.2) mg/dL Total Bilirubin (0.2-1.3) mg/dL AST (17-59) U/L ALT (7-56) U/L Alkaline Phosphatase (38-126) U/L Total Protein (5.8-8.3) g/dL Albumin (3.0-4.8) g/dL Globulin gm/dL Albumin/Globulin Ratio (1.1-1.8) Procalcitonin 0.79 H (0.19-0.49) NG/ML Blood Type Antibody Screen Crossmatch BBK History Checked Laboratory Results - last 24 hr 08/10/18 08/10/18 08/10/18 09:00 11:12 16:37 WBC RBC Hgb Hct MCV MCH MCHC RDW Plt Count MPV Gran % Lymph % (Auto) [place] % (Auto) Eos % (Auto) Baso % (Auto) Gran # Lymph # (Auto) [place] # (Auto) Eos # (Auto) Baso # (Auto) Neutrophils % (Manual) Band Neutrophils % Lymphocytes % (Manual) Monocytes % (Manual) Platelet Evaluation PT INR APTT Sodium Potassium Chloride Carbon Dioxide Anion Gap BUN Creatinine Est GFR ( Amer) Est GFR (Non-Af Amer) POC Glucose (mg/dL) 130 H 124 H Random Glucose Calcium Phosphorus Magnesium Total Bilirubin AST ALT Alkaline Phosphatase Total Protein Albumin Globulin Albumin/Globulin Ratio Procalcitonin 0.79 H Blood Type Antibody Screen Crossmatch BBK History Checked 08/10/18 08/10/18 08/10/18 17:09 17:09 21:42 WBC 30.7 H* RBC 5.24 Hgb 15.7 Hct 49.4 MCV 94.3 MCH 30.0 MCHC 31.8 RDW 15.5 H Plt Count 120 MPV 9.7 Gran % 95.0 H Lymph % (Auto) 3.2 L [place] % (Auto) 1.8 Eos % (Auto) 0.0 L Baso % (Auto) 0.0 Gran # 29.12 H Lymph # (Auto) 1.0 L [place] # (Auto) 0.6 Eos # (Auto) 0.0 Baso # (Auto) 0.01 Neutrophils % (Manual) 90 H Band Neutrophils % 2 Lymphocytes % (Manual) 4 L Monocytes % (Manual) 4 Platelet Evaluation Normal PT INR APTT Sodium 138 Potassium 5.1 H Chloride 101 Carbon Dioxide 31 Anion Gap 11 BUN 61 H Creatinine 1.1 Est GFR ( Amer) > 60 Est GFR (Non-Af Amer) > 60 POC Glucose (mg/dL) 119 H Random Glucose 146 H Calcium 8.7 Phosphorus 5.0 H Magnesium 2.1 Total Bilirubin AST ALT Alkaline Phosphatase Total Protein Albumin Globulin Albumin/Globulin Ratio Procalcitonin Blood Type Antibody Screen Crossmatch BBK History Checked 08/11/18 08/11/18 08/11/18 00:16 00:16 00:16 WBC 29.7 H* RBC 4.97 Hgb 15.0 Hct 46.9 MCV 94.4 MCH 30.2 MCHC 32.0 RDW 15.5 H Plt Count 95 L MPV 9.6 Gran % 96.4 H Lymph % (Auto) 1.8 L [place] % (Auto) 1.8 Eos % (Auto) 0.0 L Baso % (Auto) 0.0 Gran # 28.65 H Lymph # (Auto) 0.5 L [place] # (Auto) 0.6 Eos # (Auto) 0.0 Baso # (Auto) 0.01 Neutrophils % (Manual) Band Neutrophils % Lymphocytes % (Manual) Monocytes % (Manual) Platelet Evaluation PT 13.4 H INR 1.17 APTT 35.3 Sodium Potassium Chloride Carbon Dioxide Anion Gap BUN Creatinine Est GFR ( Amer) Est GFR (Non-Af Amer) POC Glucose (mg/dL) Random Glucose Calcium Phosphorus Magnesium Total Bilirubin AST ALT Alkaline Phosphatase Total Protein Albumin Globulin Albumin/Globulin Ratio Procalcitonin Blood Type O POSITIVE Antibody Screen Negative Crossmatch See Detail BBK History Checked Patient has bt 08/11/18 08/11/18 08/11/18 00:16 06:15 06:15 WBC 19.6 H D RBC 4.51 Hgb 13.2 L Hct 42.7 MCV 94.7 MCH 29.3 MCHC 30.9 L RDW 15.5 H Plt Count 104 L MPV 9.9 Gran % 95.6 H Lymph % (Auto) 2.0 L [place] % (Auto) 2.4 Eos % (Auto) 0.0 L Baso % (Auto) 0.0 Gran # 18.71 H Lymph # (Auto) 0.4 L [place] # (Auto) 0.5 Eos # (Auto) 0.0 Baso # (Auto) 0.00 Neutrophils % (Manual) Band Neutrophils % Lymphocytes % (Manual) Monocytes % (Manual) Platelet Evaluation PT INR APTT Sodium 138 139 Potassium 5.1 H 4.8 Chloride 101 101 Carbon Dioxide 30 33 Anion Gap 12 10 BUN 67 H 68 H Creatinine 1.2 1.3 Est GFR ( Amer) > 60 > 60 Est GFR (Non-Af Amer) 58 53 POC Glucose (mg/dL) Random Glucose 133 H 128 H Calcium 8.2 L 8.3 L Phosphorus 5.2 H Magnesium 2.2 Total Bilirubin 1.8 H AST 22 ALT 65 H Alkaline Phosphatase 54 Total Protein 4.7 L Albumin 2.5 L Globulin 2.1 Albumin/Globulin Ratio 1.2 Procalcitonin Blood Type Antibody Screen Crossmatch BBK History Checked 08/11/18 08/11/18 12:50 12:50 WBC 32.5 H* D RBC 4.51 Hgb 13.3 L Hct 43.7 MCV 96.9 MCH 29.5 MCHC 30.4 L RDW 15.7 H Plt Count 194 MPV 9.3 Gran % 95.6 H Lymph % (Auto) 2.4 L [place] % (Auto) 2.0 Eos % (Auto) 0.0 L Baso % (Auto) 0.0 Gran # 31.02 H Lymph # (Auto) 0.8 L [place] # (Auto) 0.7 H Eos # (Auto) 0.0 Baso # (Auto) 0.01 Neutrophils % (Manual) Band Neutrophils % Lymphocytes % (Manual) Monocytes % (Manual) Platelet Evaluation PT 14.5 H INR 1.26 APTT 33.2 Sodium Potassium Chloride Carbon Dioxide Anion Gap BUN Creatinine Est GFR ( Amer) Est GFR (Non-Af Amer) POC Glucose (mg/dL) Random Glucose Calcium Phosphorus Magnesium Total Bilirubin AST ALT Alkaline Phosphatase Total Protein Albumin Globulin Albumin/Globulin Ratio Procalcitonin Blood Type Antibody Screen Crossmatch BBK History Checked Fingerstick Blood Sugar Results: 119 Critical Care Progress Note - Nutrition Nutrition: Nutrition Category Date Time Status NPO Diet [DIET] Diets 08/10/18 Dinner Ordered Assessment/Plan - Assessment and Plan (Free Text) Assessment: 82 y/o M with PMHx of rectal cancer POD 12 s/p R hemicolectomy & parastomal hernia repair (07/30) admitted to ICU for respiratory failure secondary to post- operative respiratory insufficiency secondary to mucus plugging of the L lung. S/p failed pulmonary toilet and s/p bronchoscopy w/ lavage x 2. Pt was found on 10/11 to have free air in the abdomen on CT scan. He had went to OR on 08/11 for laparatomy. Plan: Neuro/Psych: Pt intubated On precedex Cardio Pt s/p exploratory laparotomy with intestinal perforation repair Pt hypotensives with BP 80/50s IJ central line placed, levophed started vasopressin solucortef Measure CVP Cardizem/metoprolol held Precedex held Anticoagulation held Echo reveals severe pulmonary hypertension w. R ventricular insufficiency in the setting of L ventricular dysfunction Monitor H/H for signs sx of bleeding Pulmonary Intubated on ventilator pressure support Post-op respiratory insufficiency 2/2 mucus plugs s/p bronchoscopy w/ lavage 08/03 & 08/05 COPD Xopenex q6h Acetylcysteine 4ml IH q6h Taper Solu-medrol 20mg IVP daily sputum cultures (-) GI S/p R hemicolectomy and parastomal hernioraphy. s/p exploratory laparotomy with viscus rupture repair Colostomy bag in place, brown stool noted. RUSSELL drain in place, draining serosanguinous fluid Monitor for signs of overt bleeding /Renal maintain euvolemia Hold lasix Maintain MAP >56 Heme H/H stable Tranfuse if Hgb <8 hold anticoagulation ID Leukocytosis on meropenem post-operative changes DVT/GI PPx: hold anticoagulation Case seen, examined and discussed with attending physician, Dr. Andujar <Ari Andujar - Last Filed: 08/12/18 11:38> CCU Objective - Vital Signs / Intake & Output Vital Signs (Last 4 hours): Vital Signs Pulse Resp BP Pulse Ox 08/12/18 09:08 125 H 142/81 08/12/18 08:07 17 97 Intake and Output (Last 8hrs): Intake & Output 08/11/18 08/12/18 08/12/18 22:59 06:59 14:59 Intake Total 3338.0 1750 Output Total 575 640 Balance 2763.0 1110 Intake: IV 3338.0 1750 Right Internal Jugular 3248 1750 Output: Gastric Amount 100 Right 100 Drainage 125 140 Right Abdomen 125 140 Urine 450 400 Urethral ([place]) 450 400 - Medications Active Medications: Active Medications Generic Name Dose Route Start Last Admin Trade Name Freq PRN Reason Stop Dose Admin Acetylcysteine 4 ml 08/12/18 13:00 Acetylcysteine 20% IH [id number] Apixaban 2.5 mg 08/04/18 18:00 08/09/18 10:14 Eliquis PO Not Given BID KD Dextrose 0 ml 08/01/18 23:07 Dextrose 50% Inj IV STAT PRN Hypoglycemia Protocol Protocol Diltiazem HCl 360 mg 07/31/18 10:00 08/11/18 11:54 Cardizem Cd PO Not Given DAILY KD Enoxaparin Sodium 60 mg 08/09/18 13:30 08/10/18 19:29 Lovenox SC Not Given Q12H KD Protocol Famotidine 20 mg 08/05/18 22:00 08/11/18 22:00 Pepcid PO Not Given HS DK Hydrocortisone Sodium Succinate 50 mg 08/11/18 15:00 08/12/18 09:09 Solu-Cortef IVP 50 mg Q6H KD Administration Hydromorphone HCl 0.5 mg 08/11/18 00:08 08/12/18 01:22 Dilaudid IVP 0.5 mg Q4H PRN Administration Pain, moderate (4-7) Dextrose 1,000 mls @ 0 mls/hr 08/01/18 23:07 Dextrose 5% In Water 1000 Ml IV .Q0M PRN Hypoglycemia Protocol Protocol Per Protocol Metronidazole 500 mg in 100 mls @ 100 mls/hr 08/10/18 22:30 08/12/18 05:24 Flagyl IVPB 100 mls/hr Q8 KD Administration Protocol Meropenem 1 gm in 50 mls @ 100 mls/hr 08/11/18 10:00 08/12/18 10:17 Merrem Iv 1 Gm Premix IVPB 08/20/18 10:01 100 mls/hr Q12 KD Administration Protocol Insulin Human Lispro 0 units 08/04/18 11:30 08/12/18 09:02 Humalog Low SC Not Given ACHS KD Protocol Levalbuterol HCl 1.25 mg 08/02/18 14:00 08/12/18 07:20 Xopenex IH 1.25 mg [id number] KD Administration Lidocaine 1 ea 08/10/18 10:00 08/12/18 10:16 Lidoderm TD 1 ea DAILY KD Administration Metoprolol Tartrate 50 mg 08/10/18 17:00 08/11/18 08:38 Lopressor PO Not Given BRKDIN KD Metoprolol Tartrate 5 mg 08/11/18 09:00 08/12/18 09:08 Lopressor IVP 5 mg Q6H KD Administration Oxycodone/Acetaminophen 1 tab 08/10/18 02:21 08/10/18 19:35 Percocet 5/325 Mg Tab PO 08/13/18 02:22 1 tab Q4H PRN Administration Pain, moderate (4-7) Phenytoin 100 mg 08/11/18 18:00 08/12/18 10:17 Dilantin IVP 100 mg BID KD Administration Phenytoin Sodium 100 mg 08/04/18 14:00 08/12/18 10:17 Dilantin PO Not Given TID KD Thiamine HCl 100 mg 08/11/18 15:30 08/12/18 10:22 Vitamin B1 Inj IV 100 mg DAILY KD Administration - Patient Studies Lab Studies: Microbiology Studies 08/11/18 11:26 Gram Stain - Final Other: Please Indicate Wound Culture - Preliminary Gram Positive Cocci 08/11/18 11:26 Gram Stain - Final Other: Please Indicate Wound Culture - Preliminary Gram Positive Cocci 08/11/18 11:26 Gram Stain - Final Other: Please Indicate Wound Culture - Preliminary Gram Positive Cocci 08/11/18 11:26 Gram Stain - Final Abdomen Wound Culture - Preliminary Gram Positive Cocci 08/10/18 09:15 Blood Culture - Preliminary Blood NO GROWTH AFTER 48 HOURS 08/10/18 09:00 Blood Culture - Preliminary Blood NO GROWTH AFTER 48 HOURS 08/10/18 20:40 Body Fluid Culture - Preliminary Abdominal Fluid Gram Positive Cocci 08/10/18 20:40 C. difficile Antigen & Toxins A,B - Final Stool 08/10/18 11:00 Urine Culture - Final Urine,Random No Growth (<1,000 CFU/ML) Lab Studies 08/12/18 08/12/18 08/12/18 Range/Units 11:32 07:57 05:40 WBC (4.5-11.0) 10^3/uL RBC (3.5-6.1) 10^6/uL Hgb (14.0-18.0) g/dL Hct (42.0-52.0) % MCV (80.0-105.0) fl MCH (25.0-35.0) pg MCHC (31.0-37.0) g/dl RDW (11.5-14.5) % Plt Count (120.0-450.0) 10^3/uL MPV (7.0-11.0) fl Gran % (50.0-68.0) % Lymph % (Auto) (22.0-35.0) % [place] % (Auto) (1.0-6.0) % Eos % (Auto) (1.5-5.0) % Baso % (Auto) (0.0-3.0) % Gran # (1.4-6.5) Lymph # (Auto) (1.2-3.4) [place] # (Auto) (0.1-0.6) Eos # (Auto) (0.0-0.7) Baso # (Auto) (0.0-2.0) K/mm3 PT (9.4-12.5) SECONDS INR APTT (25.1-36.5) Seconds pCO2 (35-45) mm/Hg pO2 (80-100) mm/Hg HCO3 (21-28) mmol/L ABG pH (7.35-7.45) ABG Total CO2 (22-28) mmol.L ABG O2 Saturation (95-98) % ABG O2 Content (15-23) ML/dl ABG Base Excess (-2.0-3.0) mmol/L ABG Hemoglobin (11.7-17.4) g/dL ABG Carboxyhemoglobin (0.5-1.5) % POC ABG HHb (Measured) (0-5) % ABG Methemoglobin (0.0-3.0) % ABG O2 Capacity (16-24) mL/dl ABG Potassium (3.6-5.2) mmol/L Hgb O2 Saturation (95.0-98.0) % Glucose (75-110) mg/dl Lactate (0.7-2.1) mmol/L Mechanical Rate FiO2 % Tidal Volume PEEP Sodium 142 (132-148) mmol/L Potassium 4.3 (3.6-5.0) mmol/L Chloride 111 H (98-107) mmol/L Carbon Dioxide 24 (21-33) mmol/L Anion Gap 11 (10-20) BUN 68 H (7-21) mg/dL Creatinine 1.3 (0.8-1.5) mg/dl Est GFR ( Amer) > 60 Est GFR (Non-Af Amer) 53 POC Glucose (mg/dL) 142 H 138 H (65-110) mg/dL Random Glucose 137 H (70-110) mg/dL Calcium 7.6 L (8.4-10.5) mg/dL Phosphorus 5.6 H (2.5-4.5) mg/dL Magnesium 1.9 (1.7-2.2) mg/dL Total Bilirubin 1.6 H (0.2-1.3) mg/dL AST 30 (17-59) U/L ALT 58 H (7-56) U/L Alkaline Phosphatase 42 (38-126) U/L Total Protein 3.8 L (5.8-8.3) g/dL Albumin 1.8 L (3.0-4.8) g/dL Globulin 1.9 gm/dL Albumin/Globulin Ratio 1.0 L (1.1-1.8) Arterial Blood Potassium (3.6-5.2) mmol/L 08/12/18 08/12/18 08/11/18 Range/Units 05:40 05:18 21:59 WBC 15.1 H D (4.5-11.0) 10^3/uL RBC 3.55 (3.5-6.1) 10^6/uL Hgb 10.4 L D (14.0-18.0) g/dL Hct 34.1 L (42.0-52.0) % MCV 96.1 (80.0-105.0) fl MCH 29.3 (25.0-35.0) pg MCHC 30.5 L (31.0-37.0) g/dl RDW 15.6 H (11.5-14.5) % Plt Count 102 L (120.0-450.0) 10^3/uL MPV 8.9 (7.0-11.0) fl Gran % 95.9 H (50.0-68.0) % Lymph % (Auto) 2.8 L (22.0-35.0) % [place] % (Auto) 1.3 (1.0-6.0) % Eos % (Auto) 0.0 L (1.5-5.0) % Baso % (Auto) 0.0 (0.0-3.0) % Gran # 14.53 H (1.4-6.5) Lymph # (Auto) 0.4 L (1.2-3.4) [place] # (Auto) 0.2 (0.1-0.6) Eos # (Auto) 0.0 (0.0-0.7) Baso # (Auto) 0.00 (0.0-2.0) K/mm3 PT (9.4-12.5) SECONDS INR APTT (25.1-36.5) Seconds pCO2 38 (35-45) mm/Hg pO2 131.0 H (80-100) mm/Hg HCO3 22.5 (21-28) mmol/L ABG pH 7.38 (7.35-7.45) ABG Total CO2 23.7 (22-28) mmol.L ABG O2 Saturation 100.1 H (95-98) % ABG O2 Content 14.7 L (15-23) ML/dl ABG Base Excess -2.3 L (-2.0-3.0) mmol/L ABG Hemoglobin 10.7 L (11.7-17.4) g/dL ABG Carboxyhemoglobin 2.6 H (0.5-1.5) % POC ABG HHb (Measured) -0.1 L (0-5) % ABG Methemoglobin 1.2 (0.0-3.0) % ABG O2 Capacity 14.7 L (16-24) mL/dl ABG Potassium (3.6-5.2) mmol/L Hgb O2 Saturation 96.3 (95.0-98.0) % Glucose (75-110) mg/dl Lactate (0.7-2.1) mmol/L Mechanical Rate FiO2 40.0 % Tidal Volume PEEP Sodium (132-148) mmol/L Potassium (3.6-5.0) mmol/L Chloride (98-107) mmol/L Carbon Dioxide (21-33) mmol/L Anion Gap (10-20) BUN (7-21) mg/dL Creatinine (0.8-1.5) mg/dl Est GFR ( Amer) Est GFR (Non-Af Amer) POC Glucose (mg/dL) 130 H (65-110) mg/dL Random Glucose (70-110) mg/dL Calcium (8.4-10.5) mg/dL Phosphorus (2.5-4.5) mg/dL Magnesium (1.7-2.2) mg/dL Total Bilirubin (0.2-1.3) mg/dL AST (17-59) U/L ALT (7-56) U/L Alkaline Phosphatase (38-126) U/L Total Protein (5.8-8.3) g/dL Albumin (3.0-4.8) g/dL Globulin gm/dL Albumin/Globulin Ratio (1.1-1.8) Arterial Blood Potassium (3.6-5.2) mmol/L 08/11/18 08/11/18 08/11/18 Range/Units 16:17 13:30 12:50 WBC (4.5-11.0) 10^3/uL RBC (3.5-6.1) 10^6/uL Hgb (14.0-18.0) g/dL Hct (42.0-52.0) % MCV (80.0-105.0) fl MCH (25.0-35.0) pg MCHC (31.0-37.0) g/dl RDW (11.5-14.5) % Plt Count (120.0-450.0) 10^3/uL MPV (7.0-11.0) fl Gran % (50.0-68.0) % Lymph % (Auto) (22.0-35.0) % [place] % (Auto) (1.0-6.0) % Eos % (Auto) (1.5-5.0) % Baso % (Auto) (0.0-3.0) % Gran # (1.4-6.5) Lymph # (Auto) (1.2-3.4) [place] # (Auto) (0.1-0.6) Eos # (Auto) (0.0-0.7) Baso # (Auto) (0.0-2.0) K/mm3 PT (9.4-12.5) SECONDS INR APTT (25.1-36.5) Seconds pCO2 47 H (35-45) mm/Hg pO2 113.0 H (80-100) mm/Hg HCO3 24.8 (21-28) mmol/L ABG pH 7.33 L (7.35-7.45) ABG Total CO2 26.2 (22-28) mmol.L ABG O2 Saturation 99.3 H (95-98) % ABG O2 Content (15-23) ML/dl ABG Base Excess -1.5 (-2.0-3.0) mmol/L ABG Hemoglobin (11.7-17.4) g/dL ABG Carboxyhemoglobin (0.5-1.5) % POC ABG HHb (Measured) (0-5) % ABG Methemoglobin (0.0-3.0) % ABG O2 Capacity (16-24) mL/dl ABG Potassium 4.8 (3.6-5.2) mmol/L Hgb O2 Saturation (95.0-98.0) % Glucose 126 H (75-110) mg/dl Lactate 1.4 (0.7-2.1) mmol/L Mechanical Rate 15 FiO2 50.0 % Tidal Volume 350 PEEP 5 Sodium 140.0 141 (132-148) mmol/L Potassium 5.1 H (3.6-5.0) mmol/L Chloride 110.0 H 105 (98-107) mmol/L Carbon Dioxide 28 (21-33) mmol/L Anion Gap 13 (10-20) BUN 66 H (7-21) mg/dL Creatinine 1.4 (0.8-1.5) mg/dl Est GFR ( Amer) 59 Est GFR (Non-Af Amer) 49 POC Glucose (mg/dL) 114 H (65-110) mg/dL Random Glucose 134 H (70-110) mg/dL Calcium 7.9 L (8.4-10.5) mg/dL Phosphorus 6.4 H (2.5-4.5) mg/dL Magnesium 2.2 (1.7-2.2) mg/dL Total Bilirubin 2.4 H (0.2-1.3) mg/dL AST 33 (17-59) U/L ALT 64 H (7-56) U/L Alkaline Phosphatase 52 (38-126) U/L Total Protein 4.7 L (5.8-8.3) g/dL Albumin 2.5 L (3.0-4.8) g/dL Globulin 2.2 gm/dL Albumin/Globulin Ratio 1.1 (1.1-1.8) Arterial Blood Potassium 4.8 (3.6-5.2) mmol/L 08/11/18 08/11/18 08/11/18 Range/Units 12:50 12:50 11:24 WBC 32.5 H* D (4.5-11.0) 10^3/uL RBC 4.51 (3.5-6.1) 10^6/uL Hgb 13.3 L (14.0-18.0) g/dL Hct 43.7 (42.0-52.0) % MCV 96.9 (80.0-105.0) fl MCH 29.5 (25.0-35.0) pg MCHC 30.4 L (31.0-37.0) g/dl RDW 15.7 H (11.5-14.5) % Plt Count 194 (120.0-450.0) 10^3/uL MPV 9.3 (7.0-11.0) fl Gran % 95.6 H (50.0-68.0) % Lymph % (Auto) 2.4 L (22.0-35.0) % [place] % (Auto) 2.0 (1.0-6.0) % Eos % (Auto) 0.0 L (1.5-5.0) % Baso % (Auto) 0.0 (0.0-3.0) % Gran # 31.02 H (1.4-6.5) Lymph # (Auto) 0.8 L (1.2-3.4) [place] # (Auto) 0.7 H (0.1-0.6) Eos # (Auto) 0.0 (0.0-0.7) Baso # (Auto) 0.01 (0.0-2.0) K/mm3 PT 14.5 H (9.4-12.5) SECONDS INR 1.26 APTT 33.2 (25.1-36.5) Seconds pCO2 (35-45) mm/Hg pO2 (80-100) mm/Hg HCO3 (21-28) mmol/L ABG pH (7.35-7.45) ABG Total CO2 (22-28) mmol.L ABG O2 Saturation (95-98) % ABG O2 Content (15-23) ML/dl ABG Base Excess (-2.0-3.0) mmol/L ABG Hemoglobin (11.7-17.4) g/dL ABG Carboxyhemoglobin (0.5-1.5) % POC ABG HHb (Measured) (0-5) % ABG Methemoglobin (0.0-3.0) % ABG O2 Capacity (16-24) mL/dl ABG Potassium (3.6-5.2) mmol/L Hgb O2 Saturation (95.0-98.0) % Glucose (75-110) mg/dl Lactate (0.7-2.1) mmol/L Mechanical Rate FiO2 % Tidal Volume PEEP Sodium (132-148) mmol/L Potassium (3.6-5.0) mmol/L Chloride (98-107) mmol/L Carbon Dioxide (21-33) mmol/L Anion Gap (10-20) BUN (7-21) mg/dL Creatinine (0.8-1.5) mg/dl Est GFR ( Amer) Est GFR (Non-Af Amer) POC Glucose (mg/dL) 130 H (65-110) mg/dL Random Glucose (70-110) mg/dL Calcium (8.4-10.5) mg/dL Phosphorus (2.5-4.5) mg/dL Magnesium (1.7-2.2) mg/dL Total Bilirubin (0.2-1.3) mg/dL AST (17-59) U/L ALT (7-56) U/L Alkaline Phosphatase (38-126) U/L Total Protein (5.8-8.3) g/dL Albumin (3.0-4.8) g/dL Globulin gm/dL Albumin/Globulin Ratio (1.1-1.8) Arterial Blood Potassium (3.6-5.2) mmol/L Laboratory Results - last 24 hr 08/11/18 08/11/18 08/11/18 11:24 12:50 12:50 WBC 32.5 H* D RBC 4.51 Hgb 13.3 L Hct 43.7 MCV 96.9 MCH 29.5 MCHC 30.4 L RDW 15.7 H Plt Count 194 MPV 9.3 Gran % 95.6 H Lymph % (Auto) 2.4 L [place] % (Auto) 2.0 Eos % (Auto) 0.0 L Baso % (Auto) 0.0 Gran # 31.02 H Lymph # (Auto) 0.8 L [place] # (Auto) 0.7 H Eos # (Auto) 0.0 Baso # (Auto) 0.01 PT 14.5 H INR 1.26 APTT 33.2 pCO2 pO2 HCO3 ABG pH ABG Total CO2 ABG O2 Saturation ABG O2 Content ABG Base Excess ABG Hemoglobin ABG Carboxyhemoglobin POC ABG HHb (Measured) ABG Methemoglobin ABG O2 Capacity ABG Potassium Hgb O2 Saturation Glucose Lactate Mechanical Rate FiO2 Tidal Volume PEEP Sodium Potassium Chloride Carbon Dioxide Anion Gap BUN Creatinine Est GFR ( Amer) Est GFR (Non-Af Amer) POC Glucose (mg/dL) 130 H Random Glucose Calcium Phosphorus Magnesium Total Bilirubin AST ALT Alkaline Phosphatase Total Protein Albumin Globulin Albumin/Globulin Ratio Arterial Blood Potassium 08/11/18 08/11/18 08/11/18 12:50 13:30 16:17 WBC RBC Hgb Hct MCV MCH MCHC RDW Plt Count MPV Gran % Lymph % (Auto) [place] % (Auto) Eos % (Auto) Baso % (Auto) Gran # Lymph # (Auto) [place] # (Auto) Eos # (Auto) Baso # (Auto) PT INR APTT pCO2 47 H pO2 113.0 H HCO3 24.8 ABG pH 7.33 L ABG Total CO2 26.2 ABG O2 Saturation 99.3 H ABG O2 Content ABG Base Excess -1.5 ABG Hemoglobin ABG Carboxyhemoglobin POC ABG HHb (Measured) ABG Methemoglobin ABG O2 Capacity ABG Potassium 4.8 Hgb O2 Saturation Glucose 126 H Lactate 1.4 Mechanical Rate 15 FiO2 50.0 Tidal Volume 350 PEEP 5 Sodium 141 140.0 Potassium 5.1 H Chloride 105 110.0 H Carbon Dioxide 28 Anion Gap 13 BUN 66 H Creatinine 1.4 Est GFR ( Amer) 59 Est GFR (Non-Af Amer) 49 POC Glucose (mg/dL) 114 H Random Glucose 134 H Calcium 7.9 L Phosphorus 6.4 H Magnesium 2.2 Total Bilirubin 2.4 H AST 33 ALT 64 H Alkaline Phosphatase 52 Total Protein 4.7 L Albumin 2.5 L Globulin 2.2 Albumin/Globulin Ratio 1.1 Arterial Blood Potassium 4.8 08/11/18 08/12/18 08/12/18 21:59 05:18 05:40 WBC 15.1 H D RBC 3.55 Hgb 10.4 L D Hct 34.1 L MCV 96.1 MCH 29.3 MCHC 30.5 L RDW 15.6 H Plt Count 102 L MPV 8.9 Gran % 95.9 H Lymph % (Auto) 2.8 L [place] % (Auto) 1.3 Eos % (Auto) 0.0 L Baso % (Auto) 0.0 Gran # 14.53 H Lymph # (Auto) 0.4 L [place] # (Auto) 0.2 Eos # (Auto) 0.0 Baso # (Auto) 0.00 PT INR APTT pCO2 38 pO2 131.0 H HCO3 22.5 ABG pH 7.38 ABG Total CO2 23.7 ABG O2 Saturation 100.1 H ABG O2 Content 14.7 L ABG Base Excess -2.3 L ABG Hemoglobin 10.7 L ABG Carboxyhemoglobin 2.6 H POC ABG HHb (Measured) -0.1 L ABG Methemoglobin 1.2 ABG O2 Capacity 14.7 L ABG Potassium Hgb O2 Saturation 96.3 Glucose Lactate Mechanical Rate FiO2 40.0 Tidal Volume PEEP Sodium Potassium Chloride Carbon Dioxide Anion Gap BUN Creatinine Est GFR ( Amer) Est GFR (Non-Af Amer) POC Glucose (mg/dL) 130 H Random Glucose Calcium Phosphorus Magnesium Total Bilirubin AST ALT Alkaline Phosphatase Total Protein Albumin Globulin Albumin/Globulin Ratio Arterial Blood Potassium 08/12/18 08/12/18 08/12/18 05:40 07:57 11:32 WBC RBC Hgb Hct MCV MCH MCHC RDW Plt Count MPV Gran % Lymph % (Auto) [place] % (Auto) Eos % (Auto) Baso % (Auto) Gran # Lymph # (Auto) [place] # (Auto) Eos # (Auto) Baso # (Auto) PT INR APTT pCO2 pO2 HCO3 ABG pH ABG Total CO2 ABG O2 Saturation ABG O2 Content ABG Base Excess ABG Hemoglobin ABG Carboxyhemoglobin POC ABG HHb (Measured) ABG Methemoglobin ABG O2 Capacity ABG Potassium Hgb O2 Saturation Glucose Lactate Mechanical Rate FiO2 Tidal Volume PEEP Sodium 142 Potassium 4.3 Chloride 111 H Carbon Dioxide 24 Anion Gap 11 BUN 68 H Creatinine 1.3 Est GFR ( Amer) > 60 Est GFR (Non-Af Amer) 53 POC Glucose (mg/dL) 138 H 142 H Random Glucose 137 H Calcium 7.6 L Phosphorus 5.6 H Magnesium 1.9 Total Bilirubin 1.6 H AST 30 ALT 58 H Alkaline Phosphatase 42 Total Protein 3.8 L Albumin 1.8 L Globulin 1.9 Albumin/Globulin Ratio 1.0 L Arterial Blood Potassium Critical Care Progress Note - Nutrition Nutrition: Nutrition Category Date Time Status NPO Diet [DIET] Diets 08/10/18 Dinner Ordered Attending/Attestation - Attestation I have personally seen and examined this patient.: Yes I have fully participated in the care of the patient.: Yes I have reviewed all pertinent clinical information: Yes Notes (Text): 08/12/18 11:[address] Andujar note
[2018-08-11] MEDS ORDERED: Sodium Chloride 0.9% 1,000 ML IV STA (13:20)
--- NOTE | 2018-08-11 13:24 | RAD ---
Date of service: 08/11/2018 HISTORY: post op COMPARISON: No prior. FINDINGS: LUNGS: Endotracheal tube in satisfactory position. PLEURA: No significant pleural effusion identified, no pneumothorax apparent. CARDIOVASCULAR: Aortic calcification Moderate cardiomegaly moderate vascular congestion OSSEOUS STRUCTURES: No significant abnormalities. VISUALIZED UPPER ABDOMEN: Postop free air OTHER FINDINGS: None. IMPRESSION: Moderate cardiomegaly and moderate vascular congestion. Endotracheal tube in satisfactory position
[2018-08-11] MEDS ORDERED: NOREPINEPHRINE BIT/0.9 % NACL 4 MG/250 ML BAG IV PRN (13:49)
[2018-08-11 13:53] LABS: ARTERIAL BLOOD GAS HCO3 24.8 mmol/L (21-28); ARTERIAL BLOOD GAS O2 SAT 99.3 % (95-98); ARTERIAL BLOOD GAS PCO2 47 mm/Hg (35-45); ARTERIAL BLOOD GAS PH 7.33 (7.35-7.45); ARTERIAL BLOOD GAS TCO2 26.2 mmol.L (22-28)
[2018-08-11] MEDS ORDERED: NOREPINEPHRINE BIT/0.9 % NACL 4 MG/250 ML BAG IV ONE (13:53)
--- NOTE | 2018-08-11 15:15 | RAD ---
Date of service: 08/11/2018 HISTORY: Central line placement. COMPARISON: August 11, 2018 procedure completed at 12:56. FINDINGS: LUNGS: Stable consolidative changes both lower lobes. PLEURA: Stable bilateral pleural effusions. CARDIOVASCULAR: Atherosclerotic calcifications identified primarily aortic arch. Venous access catheter in satisfactory position. Stable cardiomegaly OSSEOUS STRUCTURES: No significant abnormalities. VISUALIZED UPPER ABDOMEN: Stable postoperative free air. OTHER FINDINGS: Satisfactory/stable position of endotracheal tube and nasogastric tube IMPRESSION: Satisfactory position of recently placed venous access catheter. No pneumothorax identified. Stable postoperative changes/free air under the diaphragms. Stable findings with respect to pulmonary plan, and pleura
[2018-08-11] MEDS ORDERED: Thiamine 100 mg/ml Inj IM SCH (15:30)
[2018-08-11] MEDS: Thiamine 100 mg/ml Inj IV SCH (15:54)
[2018-08-11] MEDS ORDERED: Sodium Chloride 0.9% 2,000 ML IV STA (16:09)
--- NOTE | 2018-08-11 16:51 | PN ---
DATE: 08/11/2018 SUBJECTIVE: The patient is seen and examined at bedside. He just returned from ex-lap with ileocolic resection for ileal perforation x2. The patient just drop blood pressure and central line was placed in the right IJ position and Levophed was initiated. Stress dose steroids ordered and vasopressin at 0.02 units/minute started. One liter of normal saline was given as a bolus. The patient is intubated on PRVC. The patient has minimal estimated blood loss during the procedure. His urine output was slightly more than 100 mL/2 hour. During the procedure, the patient received 2.5 liters of fluid during the procedure. PHYSICAL EXAMINATION: VITAL SIGNS: Heart rate initially 145 prior to fentanyl started for the pain control, now in 90s. Blood pressure 151/56 prior to drop in blood pressure, now 96/57 (that was episode when the blood pressure dropped down to 60 systolic). ENT: Atraumatic. LUNGS: Clear to auscultation bilaterally. HEART: Regular rate and rhythm. S1 and S2 normal. ABDOMEN: Soft, slightly tender in perioperative area. Colostomy viable, pink. No bowel sounds. MUSCULOSKELETAL: No C/C/E. NEUROLOGIC: The patient moves all extremities spontaneously. SKIN: Moist. PSYCH: Patient was alert, awake, in discomfort when just came from OR. DIAGNOSTIC DATA: Chest x-ray showed questionable right lower lobe infiltrate versus atelectasis questionable left lower lobe infiltrate, free air under diaphragm. Right IJ in adequate position provided that x-ray is rotated. LABORATORY DATA: WBC 32.5, hemoglobin 13.3, platelet count 194. Sodium 141, potassium 5.1, BUN 66, creatinine 1.4 up from 1.3, AST 33, ALT 64, total bilirubin 2.4. INR 1.16. ABG 7.33/47/113 (PRVC setting is 350/15/5/50% FiO2.) MEDICATIONS: Acetylcysteine, Precedex (now on hold), Cardizem on hold, Lovenox on hold, Pepcid, Flagyl, hydrocortisone 50 mg IV every 6, Dilaudid p.r.n., lactated Ringer at 50 mL/hour, Xopenex every 6 hours, meropenem, metoprolol 5 mg IV every 6, will be on hold. Norepinephrine, Dilantin, vasopressin 0.02 units/minute. ASSESSMENT AND PLAN: This is an 82-year-old gentleman who is in septic shock secondary to perforated viscus status post exploratory laparotomy with ileocolic resection, with multiorgan system failure including respiratory failure, acute kidney injury. Neuro: The patient is sedated with fentanyl which also provide pain control. Due to low blood pressure, Precedex was held. We will use benzodiazepines p.r.n. only as needed. Cardiovascular: The patient is in distributive shock, most likely secondary to severe sepsis due to peritonitis. The patient is status post ileocolic resection/ exploratory laparotomy. The patient is on norepinephrine, vasopressin and stress dose steroids. The patient is known to have pulmonary hypertension and while we will avoid hypovolemia and start with fluid resuscitation, we will try to avoid fluid overload as well. Pulmonary: We will continue with protective lung ventilation strategy. Avoid plateau pressure more than 30 cm of water. Adjust minute ventilation to maintain pH more than 7.3. Conservative fluid (after initial aggressive fluid resuscitation) and oxygen management. Head of bed elevated more than 35 degrees. Oral hygiene. Once shock resolved, daily weaning trials and sedation vacation will be instituted. GI: The patient is status post ileocolic resection for colonic perforation. N.p.o. gastrointestinal prophylaxis. Surgery and GI service is following the patient as well. ID: The patient is in septic shock due to peritonitis. The patient is on meropenem by ID. Flagyl was started by PMD. Blood culture, urine culture were sent yesterday. The patient appears to have some right lower lobe infiltrate. We will get sputum for culture as well. We will get procalcitonin as well. Leukocytosis most likely due to peritonitis. Endocrine: We will continue with stress dose steroids and maintain blood glucose within 140-180 range according to night sugar trial. Renal: The patient has acute kidney injury most likely due to sepsis related acute tubular necrosis. We will maintain mean arterial pressure more than 65. Avoid hyperchloremia and nephrotoxic medication. PROCEDURE NOTE: INDICATION: Vasopressor medication. DESCRIPTION OF PROCEDURE: After obtaining informed consent, operational area was sterilized. Time out performed. Maximum barrier proportions used. Right IJ was cannulated according to sterile Seldinger technique under real-time ultrasound guidance. Guidewire removed. Hemostasis achieved. Sterile dressing applied. Minimum EBL. Patient tolerated the procedure well. Chest x-ray confirmed correct position of the central line. Addendum: CVP 0-->2 L NS were given, will re-eval ccm time 40 min Ari Andujar MD [place]
[2018-08-11] MEDS: Phenytoin 100 mg/2 ml Inj IVP SCH (17:54)
--- NOTE | 2018-08-11 18:37 | PN ---
DATE: 08/11/2018 SUBJECTIVE: The patient is 82 years old who was complaining yesterday earlier that he has left lower quadrant discomfort. Dr. Du ordered CT scan of the abdomen and pelvis, found to have free air and was taken to OR for repair. PHYSICAL EXAMINATION VITAL SIGNS: The patient is afebrile, pulse 109, respirations 21, blood pressure 120/52. LUNGS: Bilateral fair airflow. Few expiratory rhonchi. HEART: S1 and S2 audible, tachycardic. ABDOMEN: has palpable tenderness. Colostomy is place. RUSSELL drain draining hemorrhagic fluid. LABORATORY EXAMINATION: WBC is 19.6, hemoglobin 13.2, hematocrit is 42.7, platelet of 104. Chemistry; sodium 139, potassium 4.8, chloride 101, CO2 of 23, BUN 68, creatinine 1.3, blood sugar of 128. ASSESSMENT AND PLAN: 1. repair done. 2. Chronic atrial fibrillation. 3. Status post right hemicolectomy. 4. Status post ileocolic resection. 5. Thrombocytopenia. 6. Postoperative pneumonia. PLAN: Currently, the patient is on vent support. I will monitor his ABG, electrolytes. His Eliquis is on hold. We will keep him on IV antibiotic. Continue on Flagyl and meropenem. Follow up in a.m. Tri Fleming MD
[2018-08-11] MEDS ORDERED: Lactated Ringer's 1,000 ML IV SCH (23:00)
[2018-08-12] MEDS: HYDROmorphone 0.5 mg/0.5 ml ISec IVP PRN ×2 (01:22→22:16)
[2018-08-12] MEDS: Metoprolol 1 mg/ml Inj IVP SCH ×4 (02:09→22:05)
[2018-08-12] MEDS: Acetylcysteine 20% Inhal Soln (4ml) IH SCH ×3 (02:17→20:55)
[2018-08-12] MEDS: Levalbuterol 1.25 MG/3 ML Inhal Soln UD IH SCH ×4 (02:17→20:53)
[2018-08-12] MEDS ORDERED: Sodium Chloride 0.9% 250 ML IV STA ×2 (05:14→05:29)
[2018-08-12 05:23] LABS: ARTERIAL BLOOD GAS HCO3 22.5 mmol/L (21-28); ARTERIAL BLOOD GAS HEMOGLOBIN 10.7 g/dL (11.7-17.4); ARTERIAL BLOOD GAS O2 CAPACITY 14.7 mL/dl (16-24); ARTERIAL BLOOD GAS O2 CONTENT 14.7 ML/dl (15-23); ARTERIAL BLOOD GAS O2 SAT 100.1 % (95-98); ARTERIAL BLOOD GAS PCO2 38 mm/Hg (35-45); ARTERIAL BLOOD GAS PH 7.38 (7.35-7.45); ARTERIAL BLOOD GAS TCO2 23.7 mmol.L (22-28)
[2018-08-12] MEDS: metroNIDAZOLE IV 500 mg/100 ml 500 MG/100 ML BAG IVPB SCH (05:24)
[2018-08-12 06:12] LABS: GRAN # 14.53 (1.4-6.5); GRAN % 95.9 % (50.0-68.0); LYMPH # 0.4 (1.2-3.4); LYMPH % 2.8 % (22.0-35.0); MEAN CELL VOLUME 96.1 fl (80.0-105.0); MEAN CORPUSCULAR HEMOGLOBIN 29.3 pg (25.0-35.0); MEAN CORPUSCULAR HGB CONC 30.5 g/dl (31.0-37.0); MEAN PLATELET VOLUME 8.9 fl (7.0-11.0); MONO # 0.2 (0.1-0.6); MONO % 1.3 % (1.0-6.0); RBC 3.55 10^6/uL (3.5-6.1); RED CELL DISTRIBUTION WIDTH 15.6 % (11.5-14.5); WHITE BLOOD COUNT 15.1 10^3/uL (4.5-11.0)
[2018-08-12 06:16] LABS: HEMOGLOBIN 10.4 g/dL (14.0-18.0)
[2018-08-12 06:25] LABS: ALBUMIN 1.8 g/dL (3.0-4.8); ALT/SGPT 58 U/L (7-56); AST/SGOT 30 U/L (17-59); BLOOD UREA NITROGEN 68 mg/dL (7-21); CALCIUM 7.6 mg/dL (8.4-10.5); GFR NON-AFRICAN AMERICAN 53
--- NOTE | 2018-08-12 07:05 | CP.CCUPN ---
<Heather Adamson - Last Filed: 08/12/18 10:34> CCU Subjective - Physician Review Subjective (Free Text): CRITICAL CARE PROGRESS NOTE FOR DR. JULIANA Adamson PGY1 Pt seen and examined at bedside this am. Post-operatively, he was given fentanyl and precedex for pain control and subsequently became hypotensive. Central line was placed, levophed initiated and vasopressin started and fluid resuscitation, and he remained on ventilator overnight. He is not on any vasopressors right now. This am he was extubated and placed on 3L NC. He is requesting water and reports fatigue. He denies other 12 point ROS CCU Objective - Vital Signs / Intake & Output Vital Signs (Last 4 hours): Vital Signs Pulse BP Pulse Ox 08/12/18 06:00 126 H 151/81 H 96 08/12/18 05:00 126 H 126/68 95 08/12/18 04:00 130 H 129/61 99 Intake and Output (Last 8hrs): Intake & Output 08/11/18 08/12/18 08/12/18 22:59 06:59 14:59 Intake Total 3338.0 1750 Output Total 575 640 Balance 2763.0 1110 Intake: IV 3338.0 1750 Right Internal Jugular 3248 1750 Output: Gastric Amount 100 Right 100 Drainage 125 140 Right Abdomen 125 140 Urine 450 400 Urethral (Mcintosh) 450 400 - Physical Exam Head: Positive for: Atraumatic, Normocephalic Pupils: Positive for: PERRL Extroacular Muscles: Positive for: EOMI Conjunctiva: Positive for: Normal Mouth: Positive for: Moist Mucous Membranes Pharnyx: Positive for: Normal Neck: Positive for: Normal Range of Motion Respiratory/Chest: Positive for: Clear to Auscultation, Good Air Exchange. Negative for: Respiratory Distress Cardiovascular: Positive for: Other (irregularly irregular rhythm) Abdomen: Positive for: Normal Bowel Sounds, Other (Abdominal dressing in place). Negative for: Tenderness, Distention Genitourinary Male: Positive for: Prostate Tenderness Upper Extremity: Positive for: Normal Inspection Lower Extremity: Positive for: Normal Inspection. Negative for: Edema Neurological: Positive for: GCS=15, Speech Normal Skin: Positive for: Warm, Dry, Normal Color Psychiatric: Positive for: Alert, Oriented x 3, Normal Insight, Normal Concentration - Medications Active Medications: Active Medications Generic Name Dose Route Start Last Admin Trade Name Freq PRN Reason Stop Dose Admin Apixaban 2.5 mg 08/04/18 18:00 08/09/18 10:14 Eliquis PO Not Given BID KD Dextrose 0 ml 08/01/18 23:07 Dextrose 50% Inj IV STAT PRN Hypoglycemia Protocol Protocol Diltiazem HCl 360 mg 07/31/18 10:00 08/11/18 11:54 Cardizem Cd PO Not Given DAILY [facility] Enoxaparin Sodium 60 mg 08/09/18 13:30 08/10/18 19:29 Lovenox SC Not Given Q12H KD Protocol Famotidine 20 mg 08/05/18 22:00 08/11/18 22:00 Pepcid PO Not Given HS [facility] [place] Hydrocortisone Sodium Succinate 50 mg 08/11/18 15:00 08/12/18 02:09 Solu-Cortef IVP 50 mg Q6H KD Administration Hydromorphone HCl 0.5 mg 08/11/18 00:08 08/12/18 01:22 Dilaudid IVP 0.5 mg Q4H PRN Administration Pain, moderate (4-7) Dextrose 1,000 mls @ 0 mls/hr 08/01/18 23:07 Dextrose 5% In Water 1000 Ml IV .Q0M PRN Hypoglycemia Protocol Protocol Per Protocol Metronidazole 500 mg in 100 mls @ 100 mls/hr 08/10/18 22:30 08/12/18 05:24 Flagyl IVPB 100 mls/hr Q8 KD Administration Protocol Meropenem 1 gm in 50 mls @ 100 mls/hr 08/11/18 10:00 08/11/18 21:22 Merrem Iv 1 Gm Premix IVPB 08/20/18 10:01 100 mls/hr Q12 KD Administration Protocol Dexmedetomidine HCl 400 mcg in 100 mls @ 3.243 mls/hr 08/11/18 11:18 08/11/18 13:41 Precedex 400mcg/100ml IV 0 mcg/kg/hr .Q24H PRN 0 mls/hr Agitation Titration Protocol 0.2 MCG/KG/HR Fentanyl Citrate 1,000 mcg in 100 mls @ 7.5 mls/hr 08/11/18 12:06 08/11/18 13:40 Fentanyl Citrate/Sodium Chloride 1 Mg/100 Ml IV 0 mcg/hr .[id number] PRN 0 mls/hr TITRATE PER MD ORDER Titration Protocol 75 MCG/HR NOREPINEPHRINE BIT/0.9 % NACL 4 mg in 250 mls @ 15 mls/hr 08/11/18 13:49 08/11/18 16:46 Levophed 4 Mg/ 250 Ml Ns Premixed IV 0 mcg/min .[id number] PRN 0 mls/hr TITRATE PER MD ORDER Titration Protocol 4 MCG/MIN Vasopressin 20 units/ Sodium 101 mls @ 9.09 mls/hr 08/11/18 15:00 08/11/18 15:56 Chloride IV 9.09 mls/hr .[id number] KD Administration Protocol 0.03 U/MIN Lactated Ringer's 1,000 mls @ 100 mls/hr 08/11/18 23:00 08/11/18 23:00 Lactated Ringer's IV 100 mls/hr .Q10H KD Administration Insulin Human Lispro 0 units 08/04/18 11:30 08/11/18 17:52 Humalog Low SC Not Given ACHS KD Protocol Levalbuterol HCl 1.25 mg 08/02/18 14:00 08/12/18 02:17 Xopenex IH 1.25 mg [id number] KD Administration Lidocaine 1 ea 08/10/18 10:00 08/11/18 11:45 Lidoderm TD Not Given DAILY [facility] [place] Metoprolol Tartrate 50 mg 08/10/18 17:00 08/11/18 08:38 Lopressor PO Not Given BRKDIN [facility] [place] Metoprolol Tartrate 5 mg 08/11/18 09:00 08/12/18 02:09 Lopressor IVP 5 mg Q6H KD Administration Oxycodone/Acetaminophen 1 tab 08/10/18 02:21 08/10/18 19:35 Percocet 5/325 Mg Tab PO 08/13/18 02:22 1 tab Q4H PRN Administration Pain, moderate (4-7) Phenytoin 100 mg 08/11/18 18:00 08/11/18 17:54 Dilantin IVP 100 mg BID KD Administration Phenytoin Sodium 100 mg 08/04/18 14:00 08/11/18 17:52 Dilantin PO Not Given TID [facility] [place] Thiamine HCl 100 mg 08/11/18 15:30 08/11/18 15:54 Vitamin B1 Inj IV 100 mg DAILY KD Administration - Patient Studies Lab Studies: Microbiology Studies 08/11/18 11:26 Gram Stain - Final Other: Please Indicate 08/11/18 11:26 Gram Stain - Final Abdomen 08/11/18 11:26 Gram Stain - Final Other: Please Indicate 08/11/18 11:26 Gram Stain - Final Other: Please Indicate 08/10/18 20:40 C. difficile Antigen & Toxins A,B - Final Stool 08/10/18 11:00 Urine Culture - Final Urine,Random No Growth (<1,000 CFU/ML) 08/10/18 09:15 Blood Culture - Preliminary Blood NO GROWTH AFTER 24 HOURS 08/10/18 09:00 Blood Culture - Preliminary Blood NO GROWTH AFTER 24 HOURS Lab Studies 08/12/18 08/12/18 08/12/18 Range/Units 05:40 05:40 05:18 WBC 15.1 H D (4.5-11.0) 10^3/uL RBC 3.55 (3.5-6.1) 10^6/uL Hgb 10.4 L D (14.0-18.0) g/dL Hct 34.1 L (42.0-52.0) % MCV 96.1 (80.0-105.0) fl MCH 29.3 (25.0-35.0) pg MCHC 30.5 L (31.0-37.0) g/dl RDW 15.6 H (11.5-14.5) % Plt Count 102 L (120.0-450.0) 10^3/uL MPV 8.9 (7.0-11.0) fl Gran % 95.9 H (50.0-68.0) % Lymph % (Auto) 2.8 L (22.0-35.0) % Hemphill % (Auto) 1.3 (1.0-6.0) % Eos % (Auto) 0.0 L (1.5-5.0) % Baso % (Auto) 0.0 (0.0-3.0) % Gran # 14.53 H (1.4-6.5) Lymph # (Auto) 0.4 L (1.2-3.4) Hemphill # (Auto) 0.2 (0.1-0.6) Eos # (Auto) 0.0 (0.0-0.7) Baso # (Auto) 0.00 (0.0-2.0) K/mm3 PT (9.4-12.5) SECONDS INR APTT (25.1-36.5) Seconds pCO2 38 (35-45) mm/Hg pO2 131.0 H (80-100) mm/Hg HCO3 22.5 (21-28) mmol/L ABG pH 7.38 (7.35-7.45) ABG Total CO2 23.7 (22-28) mmol.L ABG O2 Saturation 100.1 H (95-98) % ABG O2 Content 14.7 L (15-23) ML/dl ABG Base Excess -2.3 L (-2.0-3.0) mmol/L ABG Hemoglobin 10.7 L (11.7-17.4) g/dL ABG Carboxyhemoglobin 2.6 H (0.5-1.5) % POC ABG HHb (Measured) -0.1 L (0-5) % ABG Methemoglobin 1.2 (0.0-3.0) % ABG O2 Capacity 14.7 L (16-24) mL/dl ABG Potassium (3.6-5.2) mmol/L Hgb O2 Saturation 96.3 (95.0-98.0) % Glucose (75-110) mg/dl Lactate (0.7-2.1) mmol/L Mechanical Rate FiO2 40.0 % Tidal Volume PEEP Sodium 142 (132-148) mmol/L Potassium 4.3 (3.6-5.0) mmol/L Chloride 111 H (98-107) mmol/L Carbon Dioxide 24 (21-33) mmol/L Anion Gap 11 (10-20) BUN 68 H (7-21) mg/dL Creatinine 1.3 (0.8-1.5) mg/dl Est GFR ( Amer) > 60 Est GFR (Non-Af Amer) 53 POC Glucose (mg/dL) (65-110) mg/dL Random Glucose 137 H (70-110) mg/dL Calcium 7.6 L (8.4-10.5) mg/dL Phosphorus 5.6 H (2.5-4.5) mg/dL Magnesium 1.9 (1.7-2.2) mg/dL Total Bilirubin 1.6 H (0.2-1.3) mg/dL AST 30 (17-59) U/L ALT 58 H (7-56) U/L Alkaline Phosphatase 42 (38-126) U/L Total Protein 3.8 L (5.8-8.3) g/dL Albumin 1.8 L (3.0-4.8) g/dL Globulin 1.9 gm/dL Albumin/Globulin Ratio 1.0 L (1.1-1.8) Arterial Blood Potassium (3.6-5.2) mmol/L 08/11/18 08/11/18 08/11/18 Range/Units 21:59 16:17 13:30 WBC (4.5-11.0) 10^3/uL RBC (3.5-6.1) 10^6/uL Hgb (14.0-18.0) g/dL Hct (42.0-52.0) % MCV (80.0-105.0) fl MCH (25.0-35.0) pg MCHC (31.0-37.0) g/dl RDW (11.5-14.5) % Plt Count (120.0-450.0) 10^3/uL MPV (7.0-11.0) fl Gran % (50.0-68.0) % Lymph % (Auto) (22.0-35.0) % Hemphill % (Auto) (1.0-6.0) % Eos % (Auto) (1.5-5.0) % Baso % (Auto) (0.0-3.0) % Gran # (1.4-6.5) Lymph # (Auto) (1.2-3.4) Hemphill # (Auto) (0.1-0.6) Eos # (Auto) (0.0-0.7) Baso # (Auto) (0.0-2.0) K/mm3 PT (9.4-12.5) SECONDS INR APTT (25.1-36.5) Seconds pCO2 47 H (35-45) mm/Hg pO2 113.0 H (80-100) mm/Hg HCO3 24.8 (21-28) mmol/L ABG pH 7.33 L (7.35-7.45) ABG Total CO2 26.2 (22-28) mmol.L ABG O2 Saturation 99.3 H (95-98) % ABG O2 Content (15-23) ML/dl ABG Base Excess -1.5 (-2.0-3.0) mmol/L ABG Hemoglobin (11.7-17.4) g/dL ABG Carboxyhemoglobin (0.5-1.5) % POC ABG HHb (Measured) (0-5) % ABG Methemoglobin (0.0-3.0) % ABG O2 Capacity (16-24) mL/dl ABG Potassium 4.8 (3.6-5.2) mmol/L Hgb O2 Saturation (95.0-98.0) % Glucose 126 H (75-110) mg/dl Lactate 1.4 (0.7-2.1) mmol/L Mechanical Rate 15 FiO2 50.0 % Tidal Volume 350 PEEP 5 Sodium 140.0 (132-148) mmol/L Potassium (3.6-5.0) mmol/L Chloride 110.0 H (98-107) mmol/L Carbon Dioxide (21-33) mmol/L Anion Gap (10-20) BUN (7-21) mg/dL Creatinine (0.8-1.5) mg/dl Est GFR ( Amer) Est GFR (Non-Af Amer) POC Glucose (mg/dL) 130 H 114 H (65-110) mg/dL Random Glucose (70-110) mg/dL Calcium (8.4-10.5) mg/dL Phosphorus (2.5-4.5) mg/dL Magnesium (1.7-2.2) mg/dL Total Bilirubin (0.2-1.3) mg/dL AST (17-59) U/L ALT (7-56) U/L Alkaline Phosphatase (38-126) U/L Total Protein (5.8-8.3) g/dL Albumin (3.0-4.8) g/dL Globulin gm/dL Albumin/Globulin Ratio (1.1-1.8) Arterial Blood Potassium 4.8 (3.6-5.2) mmol/L 08/11/18 08/11/18 08/11/18 Range/Units 12:50 12:50 12:50 WBC 32.5 H* D (4.5-11.0) 10^3/uL RBC 4.51 (3.5-6.1) 10^6/uL Hgb 13.3 L (14.0-18.0) g/dL Hct 43.7 (42.0-52.0) % MCV 96.9 (80.0-105.0) fl MCH 29.5 (25.0-35.0) pg MCHC 30.4 L (31.0-37.0) g/dl RDW 15.7 H (11.5-14.5) % Plt Count 194 (120.0-450.0) 10^3/uL MPV 9.3 (7.0-11.0) fl Gran % 95.6 H (50.0-68.0) % Lymph % (Auto) 2.4 L (22.0-35.0) % Hemphill % (Auto) 2.0 (1.0-6.0) % Eos % (Auto) 0.0 L (1.5-5.0) % Baso % (Auto) 0.0 (0.0-3.0) % Gran # 31.02 H (1.4-6.5) Lymph # (Auto) 0.8 L (1.2-3.4) Hemphill # (Auto) 0.7 H (0.1-0.6) Eos # (Auto) 0.0 (0.0-0.7) Baso # (Auto) 0.01 (0.0-2.0) K/mm3 PT 14.5 H (9.4-12.5) SECONDS INR 1.26 APTT 33.2 (25.1-36.5) Seconds pCO2 (35-45) mm/Hg pO2 (80-100) mm/Hg HCO3 (21-28) mmol/L ABG pH (7.35-7.45) ABG Total CO2 (22-28) mmol.L ABG O2 Saturation (95-98) % ABG O2 Content (15-23) ML/dl ABG Base Excess (-2.0-3.0) mmol/L ABG Hemoglobin (11.7-17.4) g/dL ABG Carboxyhemoglobin (0.5-1.5) % POC ABG HHb (Measured) (0-5) % ABG Methemoglobin (0.0-3.0) % ABG O2 Capacity (16-24) mL/dl ABG Potassium (3.6-5.2) mmol/L Hgb O2 Saturation (95.0-98.0) % Glucose (75-110) mg/dl Lactate (0.7-2.1) mmol/L Mechanical Rate FiO2 % Tidal Volume PEEP Sodium 141 (132-148) mmol/L Potassium 5.1 H (3.6-5.0) mmol/L Chloride 105 (98-107) mmol/L Carbon Dioxide 28 (21-33) mmol/L Anion Gap 13 (10-20) BUN 66 H (7-21) mg/dL Creatinine 1.4 (0.8-1.5) mg/dl Est GFR ( Amer) 59 Est GFR (Non-Af Amer) 49 POC Glucose (mg/dL) (65-110) mg/dL Random Glucose 134 H (70-110) mg/dL Calcium 7.9 L (8.4-10.5) mg/dL Phosphorus 6.4 H (2.5-4.5) mg/dL Magnesium 2.2 (1.7-2.2) mg/dL Total Bilirubin 2.4 H (0.2-1.3) mg/dL AST 33 (17-59) U/L ALT 64 H (7-56) U/L Alkaline Phosphatase 52 (38-126) U/L Total Protein 4.7 L (5.8-8.3) g/dL Albumin 2.5 L (3.0-4.8) g/dL Globulin 2.2 gm/dL Albumin/Globulin Ratio 1.1 (1.1-1.8) Arterial Blood Potassium (3.6-5.2) mmol/L 08/11/18 08/11/18 Range/Units 11:24 06:15 WBC 19.6 H D (4.5-11.0) 10^3/uL RBC 4.51 (3.5-6.1) 10^6/uL Hgb 13.2 L (14.0-18.0) g/dL Hct 42.7 (42.0-52.0) % MCV 94.7 (80.0-105.0) fl MCH 29.3 (25.0-35.0) pg MCHC 30.9 L (31.0-37.0) g/dl RDW 15.5 H (11.5-14.5) % Plt Count 104 L (120.0-450.0) 10^3/uL MPV 9.9 (7.0-11.0) fl Gran % 95.6 H (50.0-68.0) % Lymph % (Auto) 2.0 L (22.0-35.0) % Hemphill % (Auto) 2.4 (1.0-6.0) % Eos % (Auto) 0.0 L (1.5-5.0) % Baso % (Auto) 0.0 (0.0-3.0) % Gran # 18.71 H (1.4-6.5) Lymph # (Auto) 0.4 L (1.2-3.4) Hemphill # (Auto) 0.5 (0.1-0.6) Eos # (Auto) 0.0 (0.0-0.7) Baso # (Auto) 0.00 (0.0-2.0) K/mm3 PT (9.4-12.5) SECONDS INR APTT (25.1-36.5) Seconds pCO2 (35-45) mm/Hg pO2 (80-100) mm/Hg HCO3 (21-28) mmol/L ABG pH (7.35-7.45) ABG Total CO2 (22-28) mmol.L ABG O2 Saturation (95-98) % ABG O2 Content (15-23) ML/dl ABG Base Excess (-2.0-3.0) mmol/L ABG Hemoglobin (11.7-17.4) g/dL ABG Carboxyhemoglobin (0.5-1.5) % POC ABG HHb (Measured) (0-5) % ABG Methemoglobin (0.0-3.0) % ABG O2 Capacity (16-24) mL/dl ABG Potassium (3.6-5.2) mmol/L Hgb O2 Saturation (95.0-98.0) % Glucose (75-110) mg/dl Lactate (0.7-2.1) mmol/L Mechanical Rate FiO2 % Tidal Volume PEEP Sodium (132-148) mmol/L Potassium (3.6-5.0) mmol/L Chloride (98-107) mmol/L Carbon Dioxide (21-33) mmol/L Anion Gap (10-20) BUN (7-21) mg/dL Creatinine (0.8-1.5) mg/dl Est GFR ( Amer) Est GFR (Non-Af Amer) POC Glucose (mg/dL) 130 H (65-110) mg/dL Random Glucose (70-110) mg/dL Calcium (8.4-10.5) mg/dL Phosphorus (2.5-4.5) mg/dL Magnesium (1.7-2.2) mg/dL Total Bilirubin (0.2-1.3) mg/dL AST (17-59) U/L ALT (7-56) U/L Alkaline Phosphatase (38-126) U/L Total Protein (5.8-8.3) g/dL Albumin (3.0-4.8) g/dL Globulin gm/dL Albumin/Globulin Ratio (1.1-1.8) Arterial Blood Potassium (3.6-5.2) mmol/L Laboratory Results - last 24 hr 08/11/18 08/11/18 08/11/18 06:15 11:24 12:50 WBC 19.6 H D 32.5 H* D RBC 4.51 4.51 Hgb 13.2 L 13.3 L Hct 42.7 43.7 MCV 94.7 96.9 MCH 29.3 29.5 MCHC 30.9 L 30.4 L RDW 15.5 H 15.7 H Plt Count 104 L 194 MPV 9.9 9.3 Gran % 95.6 H 95.6 H Lymph % (Auto) 2.0 L 2.4 L Hemphill % (Auto) 2.4 2.0 Eos % (Auto) 0.0 L 0.0 L Baso % (Auto) 0.0 0.0 Gran # 18.71 H 31.02 H Lymph # (Auto) 0.4 L 0.8 L Hemphill # (Auto) 0.5 0.7 H Eos # (Auto) 0.0 0.0 Baso # (Auto) 0.00 0.01 PT INR APTT pCO2 pO2 HCO3 ABG pH ABG Total CO2 ABG O2 Saturation ABG O2 Content ABG Base Excess ABG Hemoglobin ABG Carboxyhemoglobin POC ABG HHb (Measured) ABG Methemoglobin ABG O2 Capacity ABG Potassium Hgb O2 Saturation Glucose Lactate Mechanical Rate FiO2 Tidal Volume PEEP Sodium Potassium Chloride Carbon Dioxide Anion Gap BUN Creatinine Est GFR ( Amer) Est GFR (Non-Af Amer) POC Glucose (mg/dL) 130 H Random Glucose Calcium Phosphorus Magnesium Total Bilirubin AST ALT Alkaline Phosphatase Total Protein Albumin Globulin Albumin/Globulin Ratio Arterial Blood Potassium 08/11/18 08/11/18 08/11/18 12:50 12:50 13:30 WBC RBC Hgb Hct MCV MCH MCHC RDW Plt Count MPV Gran % Lymph % (Auto) Hemphill % (Auto) Eos % (Auto) Baso % (Auto) Gran # Lymph # (Auto) Hemphill # (Auto) Eos # (Auto) Baso # (Auto) PT 14.5 H INR 1.26 APTT 33.2 pCO2 47 H pO2 113.0 H HCO3 24.8 ABG pH 7.33 L ABG Total CO2 26.2 ABG O2 Saturation 99.3 H ABG O2 Content ABG Base Excess -1.5 ABG Hemoglobin ABG Carboxyhemoglobin POC ABG HHb (Measured) ABG Methemoglobin ABG O2 Capacity ABG Potassium 4.8 Hgb O2 Saturation Glucose 126 H Lactate 1.4 Mechanical Rate 15 FiO2 50.0 Tidal Volume 350 PEEP 5 Sodium 141 140.0 Potassium 5.1 H Chloride 105 110.0 H Carbon Dioxide 28 Anion Gap 13 BUN 66 H Creatinine 1.4 Est GFR ( Amer) 59 Est GFR (Non-Af Amer) 49 POC Glucose (mg/dL) Random Glucose 134 H Calcium 7.9 L Phosphorus 6.4 H Magnesium 2.2 Total Bilirubin 2.4 H AST 33 ALT 64 H Alkaline Phosphatase 52 Total Protein 4.7 L Albumin 2.5 L Globulin 2.2 Albumin/Globulin Ratio 1.1 Arterial Blood Potassium 4.8 08/11/18 08/11/18 08/12/18 16:17 21:59 05:18 WBC RBC Hgb Hct MCV MCH MCHC RDW Plt Count MPV Gran % Lymph % (Auto) Hemphill % (Auto) Eos % (Auto) Baso % (Auto) Gran # Lymph # (Auto) Hemphill # (Auto) Eos # (Auto) Baso # (Auto) PT INR APTT pCO2 38 pO2 131.0 H HCO3 22.5 ABG pH 7.38 ABG Total CO2 23.7 ABG O2 Saturation 100.1 H ABG O2 Content 14.7 L ABG Base Excess -2.3 L ABG Hemoglobin 10.7 L ABG Carboxyhemoglobin 2.6 H POC ABG HHb (Measured) -0.1 L ABG Methemoglobin 1.2 ABG O2 Capacity 14.7 L ABG Potassium Hgb O2 Saturation 96.3 Glucose Lactate Mechanical Rate FiO2 40.0 Tidal Volume PEEP Sodium Potassium Chloride Carbon Dioxide Anion Gap BUN Creatinine Est GFR ( Amer) Est GFR (Non-Af Amer) POC Glucose (mg/dL) 114 H 130 H Random Glucose Calcium Phosphorus Magnesium Total Bilirubin AST ALT Alkaline Phosphatase Total Protein Albumin Globulin Albumin/Globulin Ratio Arterial Blood Potassium 08/12/18 08/12/18 05:40 05:40 WBC 15.1 H D RBC 3.55 Hgb 10.4 L D Hct 34.1 L MCV 96.1 MCH 29.3 MCHC 30.5 L RDW 15.6 H Plt Count 102 L MPV 8.9 Gran % 95.9 H Lymph % (Auto) 2.8 L Hemphill % (Auto) 1.3 Eos % (Auto) 0.0 L Baso % (Auto) 0.0 Gran # 14.53 H Lymph # (Auto) 0.4 L Hemphill # (Auto) 0.2 Eos # (Auto) 0.0 Baso # (Auto) 0.00 PT INR APTT pCO2 pO2 HCO3 ABG pH ABG Total CO2 ABG O2 Saturation ABG O2 Content ABG Base Excess ABG Hemoglobin ABG Carboxyhemoglobin POC ABG HHb (Measured) ABG Methemoglobin ABG O2 Capacity ABG Potassium Hgb O2 Saturation Glucose Lactate Mechanical Rate FiO2 Tidal Volume PEEP Sodium 142 Potassium 4.3 Chloride 111 H Carbon Dioxide 24 Anion Gap 11 BUN 68 H Creatinine 1.3 Est GFR ( Amer) > 60 Est GFR (Non-Af Amer) 53 POC Glucose (mg/dL) Random Glucose 137 H Calcium 7.6 L Phosphorus 5.6 H Magnesium 1.9 Total Bilirubin 1.6 H AST 30 ALT 58 H Alkaline Phosphatase 42 Total Protein 3.8 L Albumin 1.8 L Globulin 1.9 Albumin/Globulin Ratio 1.0 L Arterial Blood Potassium Fingerstick Blood Sugar Results: 130 Review of Systems - Review of Systems Review of Systems: per HPI Critical Care Progress Note - Nutrition Nutrition: Nutrition Category Date Time Status NPO Diet [DIET] Diets 08/10/18 Dinner Ordered Assessment/Plan - Assessment and Plan (Free Text) Assessment: 82 y/o M with PMHx of rectal cancer POD 13 s/p R hemicolectomy & parastomal hernia repair (07/30) admitted to ICU for respiratory failure secondary to post- operative respiratory insufficiency secondary to mucus plugging of the L lung. S/p failed pulmonary toilet and s/p bronchoscopy w/ lavage x 2. Pt was found on 10/11 to have free air in the abdomen on CT scan. He had went to OR on 08/11 for laparatomy. This am, pt is POD1 s/p ileocolic resection 2/2 perforated viscus with multiorgan system failure, including respiratory failure, JOHNNY in the setting of pulmonary hypertension. Plan: Neuro/Psych: Pt extubated AxO x 3 Off of fentanyl and precedex d/t hypotension yesterday Will use benzodiazepines prn Cardio Pt s/p exploratory laparotomy w/ ileocolic resection 2/2 perforated viscus Pt normotensive at 120/60s. No vasopressors right now Given 3L of fluid bolus, and maintenence fluids overnight Avoid hypovolemia with fluid resuscitation IJ central line in place stress dose solucortef Measure CVP Cardizem/metoprolol held Precedex held Anticoagulation held Echo reveals severe pulmonary hypertension w. R ventricular insufficiency in the setting of L ventricular dysfunction Monitor H/H for signs sx of bleeding Pulmonary Extubated 08/12 On nasal cannula 3L NC, maintain Spo2 >90% Conservative fluid/oxygen management HOB elevated >35 degrees Oral hygiene sedation vacation Post-op respiratory insufficiency 2/2 mucus plugs s/p bronchoscopy w/ lavage 08/03 & 08/05 COPD Xopenex q6h Acetylcysteine 4ml IH q6h GI POD 1 (08/11) s/p exploratory laparotomy ileocolic resection s/p viscus perforation Colostomy bag in place, brown stool noted. RUSSELL drain in place, draining serosanguinous fluid NPO GI ppx Surgery/GI teams following Monitor for signs of overt bleeding /Renal JOHNNY 2/2 sepsis related to ATN Maintain MAP >56 maintain euvolemia with fluid resuscitation Avoid nephrotoxic medications Hold lasix Heme H/H stable Tranfuse if Hgb <8 hold anticoagulation ID Leukocytosis like 2/2 peritonitis vs reactive post-op Pt on meropenem Flagyl started by PMD Thiamine for lactic acidosis treatment f/u blood/urine/sputum cultures RLL infiltrate Procalcitonin 08/10 elevated Endo Continue stress dose solu-cortef BG between 140-180 according to NICE-SUGAR trial DVT/GI PPx: hold anticoagulation Case seen, examined and discussed with attending physician, Dr. Keys <Yeni Keys - Last Filed: 08/12/18 16:30> CCU Objective - Vital Signs / Intake & Output Vital Signs (Last 4 hours): Vital Signs Pulse Resp BP 08/12/18 15:08 101 H 08/12/18 15:02 109 H 26 H 142/102 H 08/12/18 14:23 123/83 08/12/18 14:00 121 H 19 123/83 08/12/18 13:00 116 H 19 130/90 08/12/18 12:29 128 H Intake and Output (Last 8hrs): Intake & Output 08/12/18 08/12/18 08/12/18 06:59 14:59 22:59 Intake Total 1750 Output Total 640 Balance 1110 Intake: IV 1750 Right Internal Jugular 1750 Output: Gastric Amount 100 Right 100 Drainage 140 Right Abdomen 140 Urine 400 Urethral (Mcintosh) 400 - Medications Active Medications: Active Medications Generic Name Dose Route Start Last Admin Trade Name Freq PRN Reason Stop Dose Admin Acetylcysteine 4 ml 08/12/18 13:00 08/12/18 13:13 Acetylcysteine 20% IH 4 ml [id number] KD Administration Albumin Human 12.5 gm 08/12/18 13:30 08/12/18 14:22 Albumin Human 25% (12.5 Gm/50 Ml) IV 08/13/18 13:19 12.5 gm Q6H KD Administration Apixaban 2.5 mg 08/04/18 18:00 08/09/18 10:14 Eliquis PO Not Given BID KD Dextrose 0 ml 08/01/18 23:07 Dextrose 50% Inj IV STAT PRN Hypoglycemia Protocol Protocol Digoxin 0.25 mg 08/12/18 18:00 Lanoxin IVP 08/12/18 18:01 ONCE ONE Diltiazem HCl 360 mg 07/31/18 10:00 08/11/18 11:54 Cardizem Cd PO Not Given DAILY KD Enoxaparin Sodium 60 mg 08/09/18 13:30 08/10/18 19:29 Lovenox SC Not Given Q12H KD Protocol Famotidine 20 mg 08/05/18 22:00 08/11/18 22:00 Pepcid PO Not Given HS KD Hydromorphone HCl 0.5 mg 08/11/18 00:08 08/12/18 01:22 Dilaudid IVP 0.5 mg Q4H PRN Administration Pain, moderate (4-7) Dextrose 1,000 mls @ 0 mls/hr 08/01/18 23:07 Dextrose 5% In Water 1000 Ml IV .Q0M PRN Hypoglycemia Protocol Protocol Per Protocol Meropenem 1 gm in 50 mls @ 100 mls/hr 08/11/18 10:00 08/12/18 10:17 Merrem Iv 1 Gm Premix IVPB 08/20/18 10:01 100 mls/hr Q12 KD Administration Protocol Insulin Human Lispro 0 units 08/04/18 11:30 08/12/18 14:01 Humalog Low SC Not Given ACHS KD Protocol Levalbuterol HCl 1.25 mg 08/02/18 14:00 08/12/18 13:13 Xopenex IH 1.25 mg [id number] KD Administration Lidocaine 1 ea 08/10/18 10:00 08/12/18 10:16 Lidoderm TD 1 ea DAILY KD Administration Metoprolol Tartrate 50 mg 08/10/18 17:00 08/11/18 08:38 Lopressor PO Not Given BRKDIN KD Metoprolol Tartrate 5 mg 08/11/18 09:00 08/12/18 09:08 Lopressor IVP 5 mg Q6H KD Administration Oxycodone/Acetaminophen 1 tab 08/10/18 02:21 08/10/18 19:35 Percocet 5/325 Mg Tab PO 08/13/18 02:22 1 tab Q4H PRN Administration Pain, moderate (4-7) Phenytoin 100 mg 08/11/18 18:00 08/12/18 10:17 Dilantin IVP 100 mg BID KD Administration Phenytoin Sodium 100 mg 08/04/18 14:00 08/12/18 14:10 Dilantin PO Not Given TID KD Thiamine HCl 100 mg 08/11/18 15:30 08/12/18 10:22 Vitamin B1 Inj IV 100 mg DAILY KD Administration Verapamil HCl 2.5 mg 08/12/18 13:17 Verapamil Inj IVP Q6H PRN for heart ratye >120 - Patient Studies Lab Studies: Microbiology Studies 08/11/18 11:26 Gram Stain - Final Other: Please Indicate Wound Culture - Preliminary Gram Positive Cocci 08/11/18 11:26 Gram Stain - Final Other: Please Indicate Wound Culture - Preliminary Gram Positive Cocci 08/11/18 11:26 Gram Stain - Final Other: Please Indicate Wound Culture - Preliminary Gram Positive Cocci 08/11/18 11:26 Gram Stain - Final Abdomen Wound Culture - Preliminary Gram Positive Cocci 08/10/18 09:15 Blood Culture - Preliminary Blood NO GROWTH AFTER 48 HOURS 08/10/18 09:00 Blood Culture - Preliminary Blood NO GROWTH AFTER 48 HOURS 08/10/18 20:40 Body Fluid Culture - Preliminary Abdominal Fluid Gram Positive Cocci 08/10/18 20:40 C. difficile Antigen & Toxins A,B - Final Stool Lab Studies 08/12/18 08/12/18 08/12/18 Range/Units 11:55 11:32 07:57 WBC (4.5-11.0) 10^3/uL RBC (3.5-6.1) 10^6/uL Hgb (14.0-18.0) g/dL Hct (42.0-52.0) % MCV (80.0-105.0) fl MCH (25.0-35.0) pg MCHC (31.0-37.0) g/dl RDW (11.5-14.5) % Plt Count (120.0-450.0) 10^3/uL MPV (7.0-11.0) fl Gran % (50.0-68.0) % Lymph % (Auto) (22.0-35.0) % [place] % (Auto) (1.0-6.0) % Eos % (Auto) (1.5-5.0) % Baso % (Auto) (0.0-3.0) % Gran # (1.4-6.5) Lymph # (Auto) (1.2-3.4) [place] # (Auto) (0.1-0.6) Eos # (Auto) (0.0-0.7) Baso # (Auto) (0.0-2.0) K/mm3 pCO2 (35-45) mm/Hg pO2 (80-100) mm/Hg HCO3 (21-28) mmol/L ABG pH (7.35-7.45) ABG Total CO2 (22-28) mmol.L ABG O2 Saturation (95-98) % ABG O2 Content (15-23) ML/dl ABG Base Excess (-2.0-3.0) mmol/L ABG Hemoglobin (11.7-17.4) g/dL ABG Carboxyhemoglobin (0.5-1.5) % POC ABG HHb (Measured) (0-5) % ABG Methemoglobin (0.0-3.0) % ABG O2 Capacity (16-24) mL/dl Hgb O2 Saturation (95.0-98.0) % FiO2 % Sodium (132-148) mmol/L Potassium (3.6-5.0) mmol/L Chloride (98-107) mmol/L Carbon Dioxide (21-33) mmol/L Anion Gap (10-20) BUN (7-21) mg/dL Creatinine (0.8-1.5) mg/dl Est GFR ( Amer) Est GFR (Non-Af Amer) POC Glucose (mg/dL) 142 H 138 H (65-110) mg/dL Random Glucose (70-110) mg/dL Calcium (8.4-10.5) mg/dL Phosphorus (2.5-4.5) mg/dL Magnesium (1.7-2.2) mg/dL Iron 22 L (45-180) ug/dL TIBC 170 L (261-462) ug/dL % Saturation 13 L (20-55) % Total Bilirubin (0.2-1.3) mg/dL AST (17-59) U/L ALT (7-56) U/L Alkaline Phosphatase (38-126) U/L Total Protein (5.8-8.3) g/dL Albumin (3.0-4.8) g/dL Globulin gm/dL Albumin/Globulin Ratio (1.1-1.8) 08/12/18 08/12/18 08/12/18 Range/Units 05:40 05:40 05:18 WBC 15.1 H D (4.5-11.0) 10^3/uL RBC 3.55 (3.5-6.1) 10^6/uL Hgb 10.4 L D (14.0-18.0) g/dL Hct 34.1 L (42.0-52.0) % MCV 96.1 (80.0-105.0) fl MCH 29.3 (25.0-35.0) pg MCHC 30.5 L (31.0-37.0) g/dl RDW 15.6 H (11.5-14.5) % Plt Count 102 L (120.0-450.0) 10^3/uL MPV 8.9 (7.0-11.0) fl Gran % 95.9 H (50.0-68.0) % Lymph % (Auto) 2.8 L (22.0-35.0) % Hemphill % (Auto) 1.3 (1.0-6.0) % Eos % (Auto) 0.0 L (1.5-5.0) % Baso % (Auto) 0.0 (0.0-3.0) % Gran # 14.53 H (1.4-6.5) Lymph # (Auto) 0.4 L (1.2-3.4) Hemphill # (Auto) 0.2 (0.1-0.6) Eos # (Auto) 0.0 (0.0-0.7) Baso # (Auto) 0.00 (0.0-2.0) K/mm3 pCO2 38 (35-45) mm/Hg pO2 131.0 H (80-100) mm/Hg HCO3 22.5 (21-28) mmol/L ABG pH 7.38 (7.35-7.45) ABG Total CO2 23.7 (22-28) mmol.L ABG O2 Saturation 100.1 H (95-98) % ABG O2 Content 14.7 L (15-23) ML/dl ABG Base Excess -2.3 L (-2.0-3.0) mmol/L ABG Hemoglobin 10.7 L (11.7-17.4) g/dL ABG Carboxyhemoglobin 2.6 H (0.5-1.5) % POC ABG HHb (Measured) -0.1 L (0-5) % ABG Methemoglobin 1.2 (0.0-3.0) % ABG O2 Capacity 14.7 L (16-24) mL/dl Hgb O2 Saturation 96.3 (95.0-98.0) % FiO2 40.0 % Sodium 142 (132-148) mmol/L Potassium 4.3 (3.6-5.0) mmol/L Chloride 111 H (98-107) mmol/L Carbon Dioxide 24 (21-33) mmol/L Anion Gap 11 (10-20) BUN 68 H (7-21) mg/dL Creatinine 1.3 (0.8-1.5) mg/dl Est GFR ( Amer) > 60 Est GFR (Non-Af Amer) 53 POC Glucose (mg/dL) (65-110) mg/dL Random Glucose 137 H (70-110) mg/dL Calcium 7.6 L (8.4-10.5) mg/dL Phosphorus 5.6 H (2.5-4.5) mg/dL Magnesium 1.9 (1.7-2.2) mg/dL Iron (45-180) ug/dL TIBC (261-462) ug/dL % Saturation (20-55) % Total Bilirubin 1.6 H (0.2-1.3) mg/dL AST 30 (17-59) U/L ALT 58 H (7-56) U/L Alkaline Phosphatase 42 (38-126) U/L Total Protein 3.8 L (5.8-8.3) g/dL Albumin 1.8 L (3.0-4.8) g/dL Globulin 1.9 gm/dL Albumin/Globulin Ratio 1.0 L (1.1-1.8) /31/18 Range/Units 21:59 WBC (4.5-11.0) 10^3/uL RBC (3.5-6.1) 10^6/uL Hgb (14.0-18.0) g/dL Hct (42.0-52.0) % MCV (80.0-105.0) fl MCH (25.0-35.0) pg MCHC (31.0-37.0) g/dl RDW (11.5-14.5) % Plt Count (120.0-450.0) 10^3/uL MPV (7.0-11.0) fl Gran % (50.0-68.0) % Lymph % (Auto) (22.0-35.0) % Hemphill % (Auto) (1.0-6.0) % Eos % (Auto) (1.5-5.0) % Baso % (Auto) (0.0-3.0) % Gran # (1.4-6.5) Lymph # (Auto) (1.2-3.4) Hemphill # (Auto) (0.1-0.6) Eos # (Auto) (0.0-0.7) Baso # (Auto) (0.0-2.0) K/mm3 pCO2 (35-45) mm/Hg pO2 (80-100) mm/Hg HCO3 (21-28) mmol/L ABG pH (7.35-7.45) ABG Total CO2 (22-28) mmol.L ABG O2 Saturation (95-98) % ABG O2 Content (15-23) ML/dl ABG Base Excess (-2.0-3.0) mmol/L ABG Hemoglobin (11.7-17.4) g/dL ABG Carboxyhemoglobin (0.5-1.5) % POC ABG HHb (Measured) (0-5) % ABG Methemoglobin (0.0-3.0) % ABG O2 Capacity (16-24) mL/dl Hgb O2 Saturation (95.0-98.0) % FiO2 % Sodium (132-148) mmol/L Potassium (3.6-5.0) mmol/L Chloride (98-107) mmol/L Carbon Dioxide (21-33) mmol/L Anion Gap (10-20) BUN (7-21) mg/dL Creatinine (0.8-1.5) mg/dl Est GFR ( Amer) Est GFR (Non-Af Amer) POC Glucose (mg/dL) 130 H (65-110) mg/dL Random Glucose (70-110) mg/dL Calcium (8.4-10.5) mg/dL Phosphorus (2.5-4.5) mg/dL Magnesium (1.7-2.2) mg/dL Iron (45-180) ug/dL TIBC (261-462) ug/dL % Saturation (20-55) % Total Bilirubin (0.2-1.3) mg/dL AST (17-59) U/L ALT (7-56) U/L Alkaline Phosphatase (38-126) U/L Total Protein (5.8-8.3) g/dL Albumin (3.0-4.8) g/dL Globulin gm/dL Albumin/Globulin Ratio (1.1-1.8) Laboratory Results - last 24 hr 08/11/18 08/12/18 08/12/18 21:59 05:18 05:40 WBC 15.1 H D RBC 3.55 Hgb 10.4 L D Hct 34.1 L MCV 96.1 MCH 29.3 MCHC 30.5 L RDW 15.6 H Plt Count 102 L MPV 8.9 Gran % 95.9 H Lymph % (Auto) 2.8 L Hemphill % (Auto) 1.3 Eos % (Auto) 0.0 L Baso % (Auto) 0.0 Gran # 14.53 H Lymph # (Auto) 0.4 L Hemphill # (Auto) 0.2 Eos # (Auto) 0.0 Baso # (Auto) 0.00 pCO2 38 pO2 131.0 H HCO3 22.5 ABG pH 7.38 ABG Total CO2 23.7 ABG O2 Saturation 100.1 H ABG O2 Content 14.7 L ABG Base Excess -2.3 L ABG Hemoglobin 10.7 L ABG Carboxyhemoglobin 2.6 H POC ABG HHb (Measured) -0.1 L ABG Methemoglobin 1.2 ABG O2 Capacity 14.7 L Hgb O2 Saturation 96.3 FiO2 40.0 Sodium Potassium Chloride Carbon Dioxide Anion Gap BUN Creatinine Est GFR ( Amer) Est GFR (Non-Af Amer) POC Glucose (mg/dL) 130 H Random Glucose Calcium Phosphorus Magnesium Iron TIBC % Saturation Total Bilirubin AST ALT Alkaline Phosphatase Total Protein Albumin Globulin Albumin/Globulin Ratio 08/12/18 08/12/18 08/12/18 05:40 07:57 11:32 WBC RBC Hgb Hct MCV MCH MCHC RDW Plt Count MPV Gran % Lymph % (Auto) Hemphill % (Auto) Eos % (Auto) Baso % (Auto) Gran # Lymph # (Auto) Hemphill # (Auto) Eos # (Auto) Baso # (Auto) pCO2 pO2 HCO3 ABG pH ABG Total CO2 ABG O2 Saturation ABG O2 Content ABG Base Excess ABG Hemoglobin ABG Carboxyhemoglobin POC ABG HHb (Measured) ABG Methemoglobin ABG O2 Capacity Hgb O2 Saturation FiO2 Sodium 142 Potassium 4.3 Chloride 111 H Carbon Dioxide 24 Anion Gap 11 BUN 68 H Creatinine 1.3 Est GFR ( Amer) > 60 Est GFR (Non-Af Amer) 53 POC Glucose (mg/dL) 138 H 142 H Random Glucose 137 H Calcium 7.6 L Phosphorus 5.6 H Magnesium 1.9 Iron TIBC % Saturation Total Bilirubin 1.6 H AST 30 ALT 58 H Alkaline Phosphatase 42 Total Protein 3.8 L Albumin 1.8 L Globulin 1.9 Albumin/Globulin Ratio 1.0 L 08/12/18 11:55 WBC RBC Hgb Hct MCV MCH MCHC RDW Plt Count MPV Gran % Lymph % (Auto) Hemphill % (Auto) Eos % (Auto) Baso % (Auto) Gran # Lymph # (Auto) Hemphill # (Auto) Eos # (Auto) Baso # (Auto) pCO2 pO2 HCO3 ABG pH ABG Total CO2 ABG O2 Saturation ABG O2 Content ABG Base Excess ABG Hemoglobin ABG Carboxyhemoglobin POC ABG HHb (Measured) ABG Methemoglobin ABG O2 Capacity Hgb O2 Saturation FiO2 Sodium Potassium Chloride Carbon Dioxide Anion Gap BUN Creatinine Est GFR ( Amer) Est GFR (Non-Af Amer) POC Glucose (mg/dL) Random Glucose Calcium Phosphorus Magnesium Iron 22 L TIBC 170 L % Saturation 13 L Total Bilirubin AST ALT Alkaline Phosphatase Total Protein Albumin Globulin Albumin/Globulin Ratio Critical Care Progress Note - Nutrition Nutrition: Nutrition Category Date Time Status NPO Diet [DIET] Diets 08/10/18 Dinner Ordered Addendum Addendum: 08/12/18 16:26 ICU ATTENDING : Patent seen and examined with housestaff on 08/05. Agree with progress note with following additions/exceptions: 82 M with hx of rectal cancer s/p total colectomy, zenker's diverticulum, thrombocytopenia, stent placement for AAA, seizure disorder, hypertension, hyperlipidemia, atrial fibrillation on eliquis s/p polyp removal with parastomal hernia repair, with multi organ failure, and lung collapse Events during the week reviewed; now s/p ex-lap ileocolic resect s/p perf extubated this morning d/c sedation off pressors Given stress dose steroids, now normotensive d/c HC and start IV solumedrol 30mg since he has been on prolonged steroids prior to his perf will taper Repeat CBC with HB drop Abx as per ID Wound growing GPC blood cx NG x 48hours Holding AC (apix and lovenox ) He has not required insulin and we can subjecting him to fingersticks Johnny improved, 3.5+ volume yestreday, d/c fluids today may need lasix COPD - cont nebs feeding as per surgery Yeni Keys MD [facility] Attending Critical care time 30 minutes
--- NOTE | 2018-08-12 07:26 | RAD ---
Date of service: 08/12/2018 HISTORY: f/u COMPARISON: 08/11/2018 FINDINGS: LUNGS: No active pulmonary disease. PLEURA: No significant pleural effusion identified, no pneumothorax apparent. CARDIOVASCULAR: Aortic calcifications Moderate cardiomegaly no pulmonary vascular congestion. OSSEOUS STRUCTURES: No significant abnormalities. VISUALIZED UPPER ABDOMEN: Decreasing free air OTHER FINDINGS: Central lines and tubes unchanged. IMPRESSION: Decreased vascular congestion. Central lines and tubes unchanged
--- NOTE | 2018-08-12 08:31 | PN ---
DATE: 08/12/2018(640am-730am) PULMONARY NOTE SUBJECTIVE: The patient is currently on the ventilator. He is mildly sedated, but easily arousable. PHYSICAL EXAMINATION: VITAL SIGNS: Temperature is 98.4, pulse on the monitor is 114, respiratory rate 18-18, blood pressure 151/81. HEENT: Normocephalic, atraumatic. No JVD. CARDIOVASCULAR: Systolic ejection murmur at the lower left sternal border. Questionable S3 gallop. LUNGS: Decreased breath sounds at the bases. Minimal rhonchi. No wheezing. EXTREMITIES: Mild edema. No cyanosis, no clubbing. Calves are nontender to palpation. GASTROINTESTINAL: Abdomen is soft and mildly distended. Abdomen is tender to palpation. Abdomen is postoperative. SKIN: No acute rash. NEUROLOGIC: Limited at the present time. PERTINENT LABORATORY DATA: Chest x-ray was done this morning and reviewed. It is again a poor rotated film. There is no significant atelectasis in the left lung. There are no significant effusions. There is less "haziness" in the right lower lobe. There is a [id number] increase in pulmonary vascular congestion. Official results are pending. Arterial blood gas was done on assist control 18, tidal volume 350, FiO2 of 40%, PEEP of 5. Results are; pH 7.38, pCO2 of 38, pO2 of 131. IMPRESSION: 1. Intra-abdominal perforation. 2. Status post right hemicolectomy. 3. Recurrent left lung atelectasis. 4. Chronic obstructive pulmonary disease. 5. Congestive heart failure. 6. Atrial fibrillation. 7. Anemia, thrombocytopenia. PLAN: The patient remains on the ventilator. He is mildly sedated, but easily arousable. He did undergo a second operation yesterday. I did discuss the case with the night nurse at length. The night nurse stated that the patient's last shift was fairly uneventful. I did review the chest x-ray from this morning. Findings are noted above. The chest x-ray is significantly improved - compared to last week. I have also reviewed the arterial blood gas. The arterial blood gas is very acceptable this morning-- with only a mild increase in the alveolar-arterial gradient. I will discuss possible weaning trials with the ICU team. On physical exam, there is certainly less bronchospasm noted. I will continue with the current nebulizer treatments and add inhaled steroids. The patient is now off his intravenous Solu-Medrol. Inputs by Surgery, Infectious Disease, and Cardiology are noted. Clinical status of the patient remains very guarded at this point in time. I will discuss the above with the entire ICU team in the next few moments. I will also discuss the above with the attending physician later this morning. Rosalio Blevins MD MTDD
--- NOTE | 2018-08-12 08:59 | CP.PCM.PN ---
Subjective - Date & Time of Evaluation Date of Evaluation: 08/12/18 Time of Evaluation: 08:55 - Subjective Subjective: Surgery: Dr. Du Patient improved this am. Tolerating pressure support trials. No acute events overnight. Objective - Vital Signs/Intake and Output Vital Signs (last 24 hours): Temp Pulse Resp BP Pulse Ox 98.4 F 126 H 17 151/81 H 97 08/12/18 00:00 08/12/18 06:00 08/12/18 08:07 08/12/18 06:00 08/12/18 08:07 Intake and Output: 08/12/18 08/12/18 06:59 18:59 Intake Total 4998 Output Total 1215 Balance 3783 - Medications Medications: Current Medications Acetylcysteine (Acetylcysteine 20%) 4 ml IH [id number] KD Apixaban (Eliquis) 2.5 mg PO BID [facility] Last Admin: 08/09/18 10:14 Dose: Not Given Dextrose (Dextrose 50% Inj) 0 ml IV STAT PRN; Protocol PRN Reason: Hypoglycemia Protocol Diltiazem HCl (Cardizem Cd) 360 mg PO DAILY [facility] Last Admin: 08/11/18 11:54 Dose: Not Given Enoxaparin Sodium (Lovenox) 60 mg SC Q12H KD; Protocol Last Admin: 08/10/18 19:29 Dose: Not Given Famotidine (Pepcid) 20 mg PO HS [facility] Last Admin: 08/11/18 22:00 Dose: Not Given Hydrocortisone Sodium Succinate (Solu-Cortef) 50 mg IVP Q6H KD Last Admin: 08/12/18 02:09 Dose: 50 mg Hydromorphone HCl (Dilaudid) 0.5 mg IVP Q4H PRN PRN Reason: Pain, moderate (4-7) Last Admin: 08/12/18 01:22 Dose: 0.5 mg Dextrose (Dextrose 5% In Water 1000 Ml) 1,000 mls @ 0 mls/hr IV .Q0M PRN; Protocol PRN Reason: Hypoglycemia Protocol Metronidazole (Flagyl) 500 mg in 100 mls @ 100 mls/hr IVPB Q8 KD; Protocol Last Admin: 08/12/18 05:24 Dose: 100 mls/hr Meropenem (Merrem Iv 1 Gm Premix) 1 gm in 50 mls @ 100 mls/hr IVPB Q12 KD; Protocol Stop: 08/20/18 10:01 Last Admin: 08/11/18 21:22 Dose: 100 mls/hr Dexmedetomidine HCl (Precedex 400mcg/100ml) 400 mcg in 100 mls @ 3.243 mls/hr IV .Q24H PRN; Protocol PRN Reason: Agitation Last Titration: 08/11/18 13:41 Dose: 0 mcg/kg/hr, 0 mls/hr Fentanyl Citrate (Fentanyl Citrate/Sodium Chloride 1 Mg/100 Ml) 1,000 mcg in 100 mls @ 7.5 mls/hr IV .[id number] PRN; Protocol PRN Reason: TITRATE PER MD ORDER Last Titration: 08/11/18 13:40 Dose: 0 mcg/hr, 0 mls/hr NOREPINEPHRINE BIT/0.9 % NACL (Levophed 4 Mg/ 250 Ml Ns Premixed) 4 mg in 250 mls @ 15 mls/hr IV .[id number] PRN; Protocol PRN Reason: TITRATE PER MD ORDER Last Titration: 08/11/18 16:46 Dose: 0 mcg/min, 0 mls/hr Vasopressin 20 units/ Sodium (Chloride) 101 mls @ 9.09 mls/hr IV .Q11H7M KD; Protocol Last Admin: 08/11/18 15:56 Dose: 9.09 mls/hr Lactated Ringer's (Lactated Ringer's) 1,000 mls @ 100 mls/hr IV .Q10H KD Last Admin: 08/11/18 23:00 Dose: 100 mls/hr Insulin Human Lispro (Humalog Low) 0 units SC ACHS KD; Protocol Last Admin: 08/11/18 17:52 Dose: Not Given Levalbuterol HCl (Xopenex) 1.25 mg IH [id number] KD Last Admin: 08/12/18 07:20 Dose: 1.25 mg Lidocaine (Lidoderm) 1 ea TD DAILY KD Last Admin: 08/11/18 11:45 Dose: Not Given Metoprolol Tartrate (Lopressor) 50 mg PO BRKDIN KD Last Admin: 08/11/18 08:38 Dose: Not Given Metoprolol Tartrate (Lopressor) 5 mg IVP Q6H KD Last Admin: 08/12/18 02:09 Dose: 5 mg Oxycodone/Acetaminophen (Percocet 5/325 Mg Tab) 1 tab PO Q4H PRN PRN Reason: Pain, moderate (4-7) Stop: 08/13/18 02:22 Last Admin: 08/10/18 19:35 Dose: 1 tab Phenytoin (Dilantin) 100 mg IVP BID [facility] Last Admin: 08/11/18 17:54 Dose: 100 mg Phenytoin Sodium (Dilantin) 100 mg PO TID [facility] Last Admin: 08/11/18 17:52 Dose: Not Given Thiamine HCl (Vitamin B1 Inj) 100 mg IV DAILY [facility] Last Admin: 08/11/18 15:54 Dose: 100 mg - Labs Labs: 08/12/18 05:40 08/12/18 05:40 PT 14.5 SECONDS (9.4-12.5) H 08/11/18 12:50 INR 1.26 08/11/18 12:50 APTT 33.2 Seconds (25.1-36.5) 08/11/18 12:50 - Constitutional Appears: Chronically Ill - Head Exam Head Exam: ATRAUMATIC, NORMOCEPHALIC - Eye Exam Eye Exam: EOMI, Normal appearance - ENT Exam ENT Exam: Mucous Membranes Moist - Respiratory Exam Respiratory Exam: NORMAL BREATHING PATTERN. absent: Respiratory Distress Additional comments: on Pressure support 07/16 - Cardiovascular Exam Cardiovascular Exam: Tachycardia, REGULAR RHYTHM - GI/Abdominal Exam GI & Abdominal Exam: Soft. absent: Distended, Guarding, Tenderness, Rebound Additional comments: Mayra w/ 265cc/SA fluid in 24hrs - Neurological Exam Neurological Exam: Alert, Awake - Skin Skin Exam: Dry, Pallor, Warm Assessment and Plan - Assessment and Plan (Free Text) Assessment: 82 y/o male s/p ex lap for ileal perforation POD1 Plan: -abd exam improved, keep NGT but ok for meds through NGT. Can clamp for [address] back on LCWS when giving medications -monitor ostomy output -wean to extubate -monitor mayra output -cont abx per ID -further care per ICU -d/w Dr. [place]ian [place] PGY4
[2018-08-12] MEDS: Insulin Lispro (humaLOG) LOW Coverage SC SCH ×3 (09:02→17:46)
[2018-08-12] MEDS ORDERED: MethylPREDNISolone 40 mg Vial IVP SCH (10:00)
[2018-08-12] MEDS: Lidocaine 5% Patch TD SCH (10:16)
[2018-08-12] MEDS: Meropenem IV 1 gm in NS 1 GM/50 ML BAG IVPB SCH ×2 (10:17→22:09)
[2018-08-12] MEDS: Phenytoin 100 mg/2 ml Inj IVP SCH ×2 (10:17→17:50)
[2018-08-12] MEDS: Thiamine 100 mg/ml Inj IV SCH (10:22)
--- NOTE | 2018-08-12 11:27 | PN ---
DATE: 08/11/2018 CRITICAL CARE PROGRESS NOTE SUBJECTIVE: This 82-year-old male was status post OR earlier this morning for exploratory laparotomy of a perforated ileum earlier today. PHYSICAL EXAMINATION: VITAL SIGNS: The patient is now ventilatory dependent postop day of surgery and on the court recording monitor remains in an atrial fibrillation rhythm with temperature 97.5, respirations 20, pulse 146 and blood pressure 151/56. HEENT: Head: Normocephalic, atraumatic. Eyes: No icterus. NECK: Supple. HEART: Irregular S1, S2. LUNGS: With rhonchi. ABDOMEN: Soft. EXTREMITIES: No edema. SKIN: Without rash. NEUROLOGICAL: Sedated. VASCULAR: Legs warm to touch. PSYCHOLOGICAL: Cannot be assessed. LABORATORY DATA: White blood cell count postop 32,500, hemoglobin 13.3, hematocrit 43.7, platelets 194,000. Sodium 141, K 5.1, chloride 105, bicarb 28, BUN 66, creatinine 1.4, random blood sugar was 134, calcium 7.9, phosphorous 6.4, magnesium 2.2, total bilirubin 2.4, AST 33, ALT 64, alk phos 52. IMPRESSION: An 82-year-old male with acute abdominal perforated viscus, status post right hemicolectomy for cecal mass, noncancerous on pathology report with comorbidities of respiratory failure and exacerbation of chronic obstructive pulmonary disease, chronic atrial fibrillation, chronic hypertension, history of seizure syndrome, diabetes mellitus, hypertension, resolved acute renal failure and persistent prerenal elevation of BUN on steroids and secondary to recurrent CHF. PLAN: Plan will be to maintain this patient on ventilatory support until he is able to be weaned postoperatively. He will continue on Mucomyst inhalational therapy, IV fluids, Dilantin, IV Flagyl, insulin coverage, lactated Ringer's, IV fluid, IV Lopressor, IV meropenem, IV Solu-Medrol and inhalational therapy. He is scheduled for repeat blood work in the a.m. He has had cultures sent of body fluid, wound and blood. He will have a chest x-ray in the a.m. and will be scheduled for ventilatory weaning protocol while receiving pulmonary toiletry. Sequential antiembolism stockings, frequent suctioning and management of I's and O's, aspiration precautions and monitoring of nasogastric tube output as well as wound drain management as well. The patient will be monitored regarding renal function parameters and will receive parenteral medications until he is able to tolerate p.o. Sara Ramirez MD [place]
[2018-08-12 12:12] LABS: IRON 22 ug/dL (45-180)
[2018-08-12 12:21] LABS: % IRON SATURATION 13 % (20-55); TOTAL IRON BINDING CAPACITY 170 ug/dL (261-462)
[2018-08-12] MEDS ORDERED: Vancomycin 1gm in NS 250ml 1 GM/250 ML BAG IVPB ONE (12:21)
[2018-08-12] MEDS ORDERED: Digoxin 500 mcg/2ml (0.5 mg/2ml) Inj IVP ONE ×2 (13:17→18:00)
--- NOTE | 2018-08-12 13:31 | CP.PCM.PCO ---
Physician Communication Note - Physician Communication Note Physician Communication Note: PO1:Extubated/NGT today
[2018-08-12] MEDS: Albumin Human 25% (12.5 gm/50 ml) IV SCH ×2 (14:22→22:27)
--- NOTE | 2018-08-12 17:36 | RAD ---
Date of service: 08/12/2018 HISTORY: NG tube placement COMPARISON: Chest radiograph performed approximately 0.5 hours prior. FINDINGS: LUNGS: Pulmonary vascular congestion. PLEURA: Moderate left and small right pleural effusions. No appreciable pneumothorax. CARDIOVASCULAR: Aortic atherosclerotic calcifications. Cardiomediastinal silhouette stably enlarged. OSSEOUS STRUCTURES: No significant abnormalities. VISUALIZED UPPER ABDOMEN: Pneumoperitoneum. Partially imaged abdominal aortic endo graft redemonstrated. Partially imaged midline skin jerardo. OTHER FINDINGS: Right central venous catheter, unchanged. Enteric tube, unchanged. Endotracheal tube no longer present IMPRESSION: Moderate left and small right pleural effusions. Interval removal of endotracheal tube. Enteric tube in satisfactory position. Pneumoperitoneum redemonstrated.
--- NOTE | 2018-08-12 18:30 | PN ---
DATE: 08/12/2018 SUBJECTIVE: The patient is in bed, in no acute distress, nontoxic. PHYSICAL EXAMINATION: VITAL SIGNS: Temperature is 98, blood pressure is 140/80, respiratory rate of 17 and heart rate of 126. HEENT: Unremarkable. NECK: Supple. LUNGS: Have decreased breath sounds. HEART: Normal S1, S2. ABDOMINAL: Soft, nontender. LABORATORY EXAMINATION: Reveals a white count of 15,000, hemoglobin of 10 and platelets of 102. Chemistries reveals a BUN of 68, creatinine of 1.3. Urinalysis is noted and serology is reviewed. Microbiology reveals a gram-positive cocci. From the OR cultures, multiple gram-positive cocci and blood cultures are reported to be negative. Urine cultures are negative. ASSESSMENT AND PLAN: This is an 82-year-old male who was seen earlier today with severe sepsis, healthcare-associated pneumonia, acute kidney injury, respiratory failure, intubated, now extubated, had bronchoscopy, the patient in the ICU developed perforated bowel. He was taken to the OR yesterday by Dr. Du, had exploratory laparotomy and perforated ileum is what is listed as postoperative diagnosis by Dr. Rocael Du and Dr. Guevara's progress note is reviewed. Postoperative procedure day #1 was status post exploratory laparotomy for ileum perforation, currently on meropenem with gram-positive cocci in the wound culture. We will discontinue the Flagyl, the Clostridium difficile is negative and give 1 dose of vancomycin, pending identification of sensitive gram-positive cocci, possibly of Enterococcus . We will follow closely with you. Jason Garvin MD
[2018-08-12 18:36] LABS: GRAN # 16.96 (1.4-6.5); GRAN % 96.5 % (50.0-68.0); HEMOGLOBIN 10.5 g/dL (14.0-18.0); LYMPH # 0.4 (1.2-3.4); MEAN CELL VOLUME 95.2 fl (80.0-105.0); MEAN CORPUSCULAR HEMOGLOBIN 29.6 pg (25.0-35.0); MEAN CORPUSCULAR HGB CONC 31.1 g/dl (31.0-37.0); MEAN PLATELET VOLUME 8.9 fl (7.0-11.0); MONO # 0.3 (0.1-0.6); MONO % 1.5 % (1.0-6.0); RBC 3.55 10^6/uL (3.5-6.1); RED CELL DISTRIBUTION WIDTH 15.8 % (11.5-14.5); WHITE BLOOD COUNT 17.6 10^3/uL (4.5-11.0)
--- NOTE | 2018-08-12 22:06 | OP ---
PROCEDURE DATE: 08/11/2018 PROCEDURE: Right internal jugular central venous catheter placement. INDICATION: Vasopressor therapy. DESCRIPTION OF PROCEDURE: After obtaining informed consent, the operation area was sterilized, time-out performed, maximum barrier precautions were used. Right IJ vein was cannulated according to sterile Seldinger technique under real-time ultrasound guidance. Guidewire removed, hemostasis achieved, sterile dressing applied. The patient tolerated the procedure well. Chest x-ray confirmed correct position of the CVC. Ari Andujar MD
--- NOTE | 2018-08-12 22:42 | PN ---
DATE: 08/12/2018 CRITICAL CARE PROGRESS NOTE SUBJECTIVE: This 82-year-old male was examined at his bedside in Critical Care Unit bed #2 on the afternoon of , 08/12/2018. Present for this interview was nurse, Ambrocio Street, registered nurse. The patient was out of bed to chair. He has an NG tube in place to suction. He has a newly placed Josué-Murdock, status post ileal perforation repair. The patient remains n.p.o. status post emergency surgery yesterday. The patient was alert, conversant, but confused to month, year, and date. PHYSICAL EXAMINATION: VITAL SIGNS: He was in an atrial fibrillation rhythm on the encoding clerk and vital signs showed temperature 97.3, respirations 26, pulse 120, and blood pressure 123/78. HEENT: Head: Normocephalic, atraumatic. Eyes: No icterus. Ears: Clear. Throat: Noninjected. NECK: Supple. HEART: Irregular S1, S2. LUNGS: Decreased breath sounds at both bases. ABDOMEN: Soft. Absent bowel sounds. EXTREMITIES: No edema. SKIN: Without rash. NEUROLOGICAL: Deconditioned. VASCULAR: Legs warm to touch. PSYCHOLOGICAL: Alert but confused. Urine output was 2160 mL thus far today with an intake of 500 mL status post Lasix 40 IV x1 dose. LABORATORY DATA: Showed white count 17,600, previously 32,500; hemoglobin 10.5; hematocrit 33.8; platelets 104,000. Sodium 142, K 4.3, chloride 111, bicarb 24, BUN 68, creatinine 1.3. Estimated GFR 53 mL per minute. Random blood sugar 146. Hepatitis A, B, C serologies are negative. Chest x-ray was reviewed. It showed pulmonary vascular congestion with moderate left and small right pleural effusions, no pneumothorax was noted. Cardiomegaly persists. IMPRESSION: This is an 82-year-old male status post acute renal failure in the setting of right hemicolectomy complicated by need for emergency exploratory laparotomy yesterday status post perforated ileum, now repaired and comorbidities of chronic obstructive pulmonary disease. Mucous plugging requiring suctioning and bronchoscopy x2 with comorbidity of chronic atrial fibrillation, now with rapid ventricular response, type 2 diabetes mellitus, seizure syndrome, chronic hypertension, peptic ulcer disease with gastroesophageal reflux disease, and metabolic encephalopathy. PLAN: To continue the patient on inhalational Mucomyst, IV albumin, IV Dilantin, insulin coverage, Lidoderm, IV Lopressor, IV meropenem, p.r.n. verapamil, and inhalational Xopenex. The patient will be scheduled for comprehensive metabolic panel, magnesium and phosphorous levels in a.m. He continues to receive aggressive pulmonary toiletry. Based on clinical progress, additional diagnostic workup and treatment will be entertained. He is ordered to have chest PT, suctioning, and nasal O2, and all of the above was discussed in detail with nurse, Jad. All questions were answered. Sara Ramirez MD MTDJevon
--- NOTE | 2018-08-12 22:45 | PN ---
DATE: 08/12/2018 REASON FOR THE CONSULTATION AND FOLLOWUP: AFib, history of right hemicolectomy, multiple times collapse of the lung, status post bronch, and status post exploratory laparotomy for perforation of intestine. SUBJECTIVE: The patient remains intubated, awake, and alert. Denies chest pain, shortness of breath, or any palpitations. OBJECTIVE: GENERAL: Not in apparent distress. VITAL SIGNS: Temperature afebrile, heart rate 156, and blood pressure 142/81. HEENT: PERRLA. Extraocular muscles intact. NECK: Supple. No carotid bruits or thyromegaly. CHEST: Clear to auscultation. HEART: S1 and S2 regular. ABDOMEN: Soft. EXTREMITIES: Clubbing and cyanosis negative. LABORATORY DATA: Blood workup as follows; WBC 15.1, hemoglobin , hematocrit 34.1, and platelet count 102. Chemistry shows sodium 140, potassium 4, chloride 111, carbon dioxide 24, anion gap of 11, BUN 68, and creatinine 1.3. IMPRESSION: An 82-year-old male with a past medical history significant for multiple medical problems who had right hemicolectomy done recently, status post perforation of the intestine, status post resection, and end-to-end anastomosis, exploratory laparotomy yesterday. Perforation of the hollow viscus and also still remain intubated, history of abdominal aortic aneurysm, status post endovascular repair in 04/2018. Prior to endovascular stent, patient's noninvasive workup including stress and echo essentially normal. The patient's repeat echocardiography done after colectomy dated 08/03/2018 that showed ejection fraction 60% to 65%, LV ejection fraction while the patient was in atrial fibrillation,, trace aortic regurgitation, no valvar aortic stenosis, moderate mitral regurgitation, moderate tricuspid regurgitation, right ventricular systolic pressure of 47, and [id number] pulmonary insufficiency. Atrial fibrillation with rapid ventricular rate, n.p.o., severe protein-calorie malnutrition which was not present on admission. RECOMMENDATIONS: We will give IV albumin 2 doses to increase the blood and cardiac pressure and prevent for third pacing and has wound healing. Continue to hold all kind of anticoagulation including Eliquis and Lovenox to prevent any bleeding into the operative site. We will start digoxin and IV verapamil to control the heart rate till along the patient is n.p.o. Monitor electrolytes. We will follow with you. In addition to Lopressor IV every 6 hours we will start verapamil and digoxin two doses to lower the heart rate. Monitor electrolytes and continue fluid closely, fluid status. We will give four doses of IV albumin. We will give little diuretics at 2:[address] Du for providing the opportunity in taking care of the patient, Alexia. Gladis Greenfield MD
[2018-08-13] MEDS: Insulin Lispro (humaLOG) LOW Coverage SC SCH ×5 (00:41→21:41)
[2018-08-13] MEDS: HYDROmorphone 0.5 mg/0.5 ml ISec IVP PRN (02:00)
[2018-08-13] MEDS: Albumin Human 25% (12.5 gm/50 ml) IV SCH ×2 (02:01→08:53)
[2018-08-13] MEDS: Metoprolol 1 mg/ml Inj IVP SCH ×4 (02:10→21:13)
[2018-08-13] MEDS: Acetylcysteine 20% Inhal Soln (4ml) IH SCH ×4 (03:21→20:41)
[2018-08-13] MEDS: Levalbuterol 1.25 MG/3 ML Inhal Soln UD IH SCH ×4 (03:21→20:42)
[2018-08-13 06:08] LABS: ARTERIAL BLOOD GAS HCO3 28.5 mmol/L (21-28); ARTERIAL BLOOD GAS HEMOGLOBIN 9.5 g/dL (11.7-17.4); ARTERIAL BLOOD GAS O2 CAPACITY 13.1 mL/dl (16-24); ARTERIAL BLOOD GAS O2 CONTENT 13.2 ML/dl (15-23); ARTERIAL BLOOD GAS O2 SAT 100.4 % (95-98); ARTERIAL BLOOD GAS PCO2 43 mm/Hg (35-45); ARTERIAL BLOOD GAS PH 7.43 (7.35-7.45); ARTERIAL BLOOD GAS TCO2 29.8 mmol.L (22-28)
[2018-08-13] MEDS ORDERED: Bisacodyl 5mg EC Tab PO ONE (06:59)
[2018-08-13 07:07] LABS: GRAN # 9.05 (1.4-6.5); GRAN % 93.9 % (50.0-68.0); HEMOGLOBIN 9.2 g/dL (14.0-18.0); LYMPH # 0.2 (1.2-3.4); LYMPH % 1.8 % (22.0-35.0); MEAN CELL VOLUME 95.5 fl (80.0-105.0); MEAN CORPUSCULAR HEMOGLOBIN 29.3 pg (25.0-35.0); MEAN CORPUSCULAR HGB CONC 30.7 g/dl (31.0-37.0); MEAN PLATELET VOLUME 9.7 fl (7.0-11.0); MONO # 0.4 (0.1-0.6); MONO % 4.3 % (1.0-6.0); RBC 3.14 10^6/uL (3.5-6.1); RED CELL DISTRIBUTION WIDTH 15.9 % (11.5-14.5); WHITE BLOOD COUNT 9.6 10^3/uL (4.5-11.0)
[2018-08-13 07:34] LABS: ALB/GLOB RATIO 1.2 (1.1-1.8); ALBUMIN 2.3 g/dL (3.0-4.8); ALT/SGPT 49 U/L (7-56); AST/SGOT 32 U/L (17-59); BLOOD UREA NITROGEN 68 mg/dL (7-21); CALCIUM 8.2 mg/dL (8.4-10.5); GFR NON-AFRICAN AMERICAN 58
--- NOTE | 2018-08-13 07:34 | PN ---
DATE: 08/13/2018(630am-720am) PULMONARY NOTE DICTATION SUBJECTIVE: The patient appears comfortable this morning. He is not short of breath at rest. PHYSICAL EXAMINATION: VITAL SIGNS: Last temperature recorded is 97.3, pulse on the monitor is 95, respiratory rate is 20, blood pressure 122/67. Oxygen saturation on nasal cannula is 97%. HEENT: Normocephalic, atraumatic. No JVD. CARDIOVASCULAR: Systolic ejection murmur at the lower left sternal border. Questionable S3 gallop. LUNGS: Decreased breath sounds at the bases. Minimal/less rhonchi. No wheezing. EXTREMITIES: Mild edema. No cyanosis, no clubbing. Calves are nontender to palpation. GI: Abdomen is soft and mildly distended. The abdomen is tender to palpation. Abdomen is postoperative. SKIN: No acute rash. NEUROLOGIC: Exam limited at the present time. PERTINENT LABORATORY DATA: Chest x-ray was done this morning and reviewed. Again, it is a very poor rotated film. There is no significant atelectasis noted to the left lung. There is decreased pulmonary vascular congestion. There is decreased right lower lobe "haziness." Arterial blood gas was done on nasal cannula. Results are: PH 7.43, pCO2 of 43, pO2 of 132. IMPRESSION: 1. Intra-abdominal perforation. 2. Status post right hemicolectomy. 3. Recurrent left lung atelectasis. 4. Chronic obstructive pulmonary disease. 5. Congestive heart failure. 6. Atrial fibrillation. 7. Anemia, thrombocytopenia. PLAN: The patient appears comfortable this morning. He is not short of breath at rest. He does state to feeling much better overall. I did discuss the case with the night nurse and respiratory therapist at length. They both stated that the patient's night was uneventful/good. I did review the chest x-ray from this morning. Findings are noted above. Again, the chest x-ray is significantly improved - compared to last week. I have also reviewed the arterial blood gas. The arterial blood gas is also much improved - with a decrease in the alveolar-arterial gradient. I will continue with the aggressive pulmonary toilet for now. The patient also remains on nebulizer treatments and inhaled steroids. Inputs by Surgery, Cardiology, and Infectious Disease are noted. Repeat a.m. labs are pending. Clinical status of the patient is significantly improved - compared to a few days ago. His overall status/prognosis does remain guarded. I will discuss the above with the entire ICU team in the next few moments. I will discuss the above with the attending physician. Rosalio Blevins MD MTDJevon
--- NOTE | 2018-08-13 08:05 | CP.PCM.PN ---
Subjective - Date & Time of Evaluation Date of Evaluation: 08/13/18 Time of Evaluation: 06:30 - Subjective Subjective: Patient seen and examined. No acute events over night. 300cc NGT output. 260cc/24 RUSSELL drain output, serosanguinous. Working with incentive spirometer at bedside. Objective - Vital Signs/Intake and Output Vital Signs (last 24 hours): Temp Pulse Resp BP Pulse Ox 97.3 F L 100 H 26 H 122/67 86 L 08/12/18 16:30 08/13/18 02:10 08/12/18 15:02 08/13/18 02:10 08/12/18 12:00 - Medications Medications: Current Medications Acetylcysteine (Acetylcysteine 20%) 4 ml IH [id number] [facility] Last Admin: 08/13/18 07:00 Dose: 4 ml Albumin Human (Albumin Human 25% (12.5 Gm/50 Ml)) 12.5 gm IV Q6H [facility] Stop: 08/13/18 13:19 Last Admin: 08/13/18 02:01 Dose: 12.5 gm Apixaban (Eliquis) 2.5 mg PO BID [facility] Last Admin: 08/09/18 10:14 Dose: Not Given Budesonide (Pulmicort Respules) 0.5 mg IH [id number] [facility] Clonidine HCl (Catapres Tts1 0.1 Mg/24 Hr) 1 patch TD Q7D@1000 KD Dextrose (Dextrose 50% Inj) 0 ml IV STAT PRN; Protocol PRN Reason: Hypoglycemia Protocol Diltiazem HCl (Cardizem Cd) 360 mg PO DAILY [facility] Last Admin: 08/11/18 11:54 Dose: Not Given Enoxaparin Sodium (Lovenox) 60 mg SC Q12H KD; Protocol Last Admin: 08/10/18 19:29 Dose: Not Given Famotidine (Pepcid) 20 mg IVP DAILY [facility] Last Admin: 08/12/18 22:27 Dose: 20 mg Hydromorphone HCl (Dilaudid) 0.5 mg IVP Q4H PRN PRN Reason: Pain, moderate (4-7) Last Admin: 08/13/18 02:00 Dose: 0.5 mg Dextrose (Dextrose 5% In Water 1000 Ml) 1,000 mls @ 0 mls/hr IV .Q0M PRN; Protocol PRN Reason: Hypoglycemia Protocol Meropenem (Merrem Iv 1 Gm Premix) 1 gm in 50 mls @ 100 mls/hr IVPB Q12 KD; Protocol Stop: 08/20/18 10:01 Last Admin: 08/12/18 22:09 Dose: 100 mls/hr Insulin Human Lispro (Humalog Low) 0 units SC ACHS KD; Protocol Last Admin: 08/13/18 00:41 Dose: Not Given Levalbuterol HCl (Xopenex) 1.25 mg IH [id number] KD Last Admin: 08/13/18 07:00 Dose: 1.25 mg Lidocaine (Lidoderm) 1 ea TD DAILY KD Last Admin: 08/12/18 10:16 Dose: 1 ea Metoprolol Tartrate (Lopressor) 50 mg PO BRKDIN [facility] Last Admin: 08/11/18 08:38 Dose: Not Given Metoprolol Tartrate (Lopressor) 5 mg IVP Q6H KD Last Admin: 08/13/18 02:10 Dose: 5 mg Phenytoin (Dilantin) 100 mg IVP BID KD Last Admin: 08/12/18 17:50 Dose: 100 mg Phenytoin Sodium (Dilantin) 100 mg PO TID KD Last Admin: 08/12/18 17:50 Dose: Not Given Thiamine HCl (Vitamin B1 Inj) 100 mg IV DAILY [facility] Last Admin: 08/12/18 10:22 Dose: 100 mg Verapamil HCl (Verapamil Inj) 2.5 mg IVP Q6H PRN PRN Reason: for heart ratye >120 - Labs Labs: 08/13/18 06:00 08/13/18 06:00 PT 14.5 SECONDS (9.4-12.5) H 08/11/18 12:50 INR 1.26 08/11/18 12:50 APTT 33.2 Seconds (25.1-36.5) 08/11/18 12:50 - Constitutional Appears: No Acute Distress - Head Exam Head Exam: NORMOCEPHALIC - Eye Exam Eye Exam: EOMI, Normal appearance - ENT Exam ENT Exam: Mucous Membranes Moist - Respiratory Exam Respiratory Exam: NORMAL BREATHING PATTERN - Cardiovascular Exam Cardiovascular Exam: +S1, +S2 - GI/Abdominal Exam GI & Abdominal Exam: Soft - Neurological Exam Neurological Exam: Alert, Awake, Oriented x3 - Psychiatric Exam Psychiatric exam: Normal Mood - Skin Skin Exam: Dry, Intact, Warm Assessment and Plan - Assessment and Plan (Free Text) Assessment: 82 y/o male s/p ex lap for ileal perforation POD2 Plan: -Possibly d/c anthony and NGT today. -monitor ostomy output -aggressive pulmonary toilet -encourage incentive spirometer -monitor mayra output -cont abx per ID -further care per ICU -d/w Dr. Florian Lawler PGY3
[2018-08-13] MEDS: Thiamine 100 mg/ml Inj IV SCH (09:05)
[2018-08-13] MEDS: Phenytoin 100 mg/2 ml Inj IVP SCH (09:05)
[2018-08-13] MEDS: Lidocaine 5% Patch TD SCH (09:06)
[2018-08-13] MEDS: Meropenem IV 1 gm in NS 1 GM/50 ML BAG IVPB SCH ×2 (09:07→21:18)
--- NOTE | 2018-08-13 09:12 | RAD ---
Date of service: 08/13/2018 HISTORY: f/u COMPARISON: 08/13/2018 FINDINGS: LUNGS: Density at the left lung base obscuring the diaphragm. PLEURA: No significant pleural effusion identified, no pneumothorax apparent. CARDIOVASCULAR: No aortic atherosclerotic calcification present. Moderate cardiomegaly. No pulmonary vascular congestion. OSSEOUS STRUCTURES: No significant abnormalities. VISUALIZED UPPER ABDOMEN: Nasogastric tube in satisfactory position. Persistent postoperative free air beneath the diaphragm OTHER FINDINGS: None. IMPRESSION: Density at the left lung base obscuring the diaphragm
--- NOTE | 2018-08-13 09:42 | PN ---
DATE: 08/12/2018 SUBJECTIVE: The patient is an 82 years old, just started extubated, asking for ice chips. PHYSICAL EXAMINATION GENERAL: Awake and alert. Able to communicate. VITAL SIGNS: Afebrile, pulse 109, respirations 26, and blood pressure 123/78. LUNGS: Bilateral fair airflow. Few expiratory rhonchi. Decreased breath sounds at bases. HEART: S1, S2 audible and tachycardiac. ABDOMEN: Soft and nontender. No rebound. No guarding. NEUROLOGICAL: The patient is awake, alert, oriented, and communicative. LABORATORY DATA: WBC 15.1, hemoglobin 10.4, hematocrit 34.1, and platelets 102. Chemistry: Blood sugar is 146, iron 22, TIBC 170, saturation is 13. is 114. ASSESSMENT: 1. Status post laparotomy and earlier resection with end-to-end anastomosis. 2. Chronic atrial fibrillation. 3. Seizure disorder. 4. Hyperlipidemia. 5. Hypertension. PLAN: Currently, the patient is n.p.o. We will keep him on IV fluids. He is on nebulizer treatment. as needed. He was on beta-tammy, but this is on hold for now. He is on meropenem. We will follow up his electrolytes and CBC in the a.m. Tri Fleming MD
[2018-08-13] MEDS ORDERED: DAPTOmycin 500 mg Inj (Cubicin) IV SCH (11:30)
--- NOTE | 2018-08-13 11:40 | CP.PCM.PCO ---
Physician Communication Note - Physician Communication Note Physician Communication Note: PO2:+Stoma flatus/Very weak-?TX 1 U PRBC
--- NOTE | 2018-08-13 12:50 | CP.CCUPN ---
Addendum entered and electronically signed by Yeni Keys MD 08/13/18 17:09: Correction to ICU Attending addendum: Error on the date Should read: Patent seen and examined with housestaff on 08/13 Original Note: <Heather Adamson - Last Filed: 08/13/18 13:12> CCU Subjective - Physician Review Subjective (Free Text): CRITICAL CARE PROGRESS NOTE FOR DR. JULIANA Adamson PGY1 Pt seen and examined at bedside this am. He continues to report dry mouth and fatigue, however denies abdominal pain. NG tube is in place draining, RUSSELL draining serosanguinous fluid and colostomy with brown stool. He denies other ROS CCU Objective - Vital Signs / Intake & Output Vital Signs (Last 4 hours): Vital Signs Pulse BP 08/13/18 09:12 99 H 135/55 L 08/13/18 09:04 107 H 135/55 L Intake and Output (Last 8hrs): Intake & Output 08/12/18 08/13/18 08/13/18 22:59 06:59 14:59 Intake Total 500 660 Output Total 2160 1080 Balance -1660 -420 Weight 64.864 kg Intake: IV 300 300 Right Internal Jugular 300 300 Oral 200 360 Output: Gastric Amount 300 400 Right 300 400 Drainage 260 120 Right Abdomen 260 120 Urine 1600 110 Urethral (Mcintosh) 1600 110 Emesis 0 Oral Regurgitation 450 Other: # Bowel Movements 1 - Physical Exam Head: Positive for: Atraumatic, Normocephalic Pupils: Positive for: PERRL Extroacular Muscles: Positive for: EOMI Conjunctiva: Positive for: Normal Mouth: Positive for: Moist Mucous Membranes Pharnyx: Positive for: Normal Neck: Positive for: Normal Range of Motion Respiratory/Chest: Positive for: Clear to Auscultation, Good Air Exchange. Negative for: Respiratory Distress Cardiovascular: Positive for: Other (irregularly irregular rhythm) Abdomen: Positive for: Normal Bowel Sounds, Other (Abdominal dressing in place. RUSSELL drain in place. Colostomy bag in place). Negative for: Tenderness, Distention Genitourinary Male: Positive for: Prostate Tenderness Upper Extremity: Positive for: Normal Inspection Lower Extremity: Positive for: Normal Inspection. Negative for: Edema Neurological: Positive for: GCS=15, Speech Normal Skin: Positive for: Warm, Dry, Normal Color Psychiatric: Positive for: Alert, Oriented x 3, Normal Insight, Normal Concentration - Medications Active Medications: Active Medications Generic Name Dose Route Start Last Admin Trade Name Freq PRN Reason Stop Dose Admin Acetylcysteine 4 ml 08/12/18 13:00 08/13/18 07:00 Acetylcysteine 20% IH 4 ml [id number] KD Administration Albumin Human 12.5 gm 08/12/18 13:30 08/13/18 08:53 Albumin Human 25% (12.5 Gm/50 Ml) IV 08/13/18 13:19 12.5 gm Q6H KD Administration Apixaban 2.5 mg 08/04/18 18:00 08/09/18 10:14 Eliquis PO Not Given BID [facility] Budesonide 0.5 mg 08/13/18 08:00 Pulmicort Respules IH [id number] KD Clonidine HCl 1 patch 08/13/18 10:00 08/13/18 09:12 Catapres Tts1 0.1 Mg/24 Hr TD 1 patch Q7D@1000 KD Administration Dextrose 0 ml 08/01/18 23:07 Dextrose 50% Inj IV STAT PRN Hypoglycemia Protocol Protocol Diltiazem HCl 360 mg 07/31/18 10:00 08/11/18 11:54 Cardizem Cd PO Not Given DAILY [facility] Enoxaparin Sodium 60 mg 08/09/18 13:30 08/10/18 19:29 Lovenox SC Not Given Q12H [facility] Protocol Enoxaparin Sodium 30 mg 08/14/18 10:00 Lovenox SC DAILY [facility] Protocol Famotidine 20 mg 08/12/18 22:13 08/13/18 09:05 Pepcid IVP 20 mg DAILY KD Administration Hydromorphone HCl 0.5 mg 08/11/18 00:08 08/13/18 02:00 Dilaudid IVP 0.5 mg Q4H PRN Administration Pain, moderate (4-7) Dextrose 1,000 mls @ 0 mls/hr 08/01/18 23:07 Dextrose 5% In Water 1000 Ml IV .Q0M PRN Hypoglycemia Protocol Protocol Per Protocol Meropenem 1 gm in 50 mls @ 100 mls/hr 08/11/18 10:00 08/13/18 09:07 Merrem Iv 1 Gm Premix IVPB 08/20/18 10:01 100 mls/hr Q12 KD Administration Protocol Daptomycin 390 mg/ Sodium 100 mls @ 200 mls/hr 08/13/18 11:45 Chloride IV 08/20/18 11:46 Q24H KD Insulin Human Lispro 0 units 08/04/18 11:30 08/13/18 12:02 Humalog Low SC Not Given ACHS KD Protocol Levalbuterol HCl 1.25 mg 08/02/18 14:00 08/13/18 07:00 Xopenex IH 1.25 mg [id number] KD Administration Lidocaine 1 ea 08/10/18 10:00 08/13/18 09:06 Lidoderm TD 1 ea DAILY KD Administration Metoprolol Tartrate 50 mg 08/10/18 17:00 08/11/18 08:38 Lopressor PO Not Given BRKDIN KD Metoprolol Tartrate 5 mg 08/11/18 09:00 08/13/18 09:04 Lopressor IVP 5 mg Q6H KD Administration Phenytoin Sodium 100 mg 08/04/18 14:00 08/13/18 09:13 Dilantin PO Not Given TID KD Thiamine HCl 100 mg 08/11/18 15:30 08/13/18 09:05 Vitamin B1 Inj IV 100 mg DAILY KD Administration Verapamil HCl 2.5 mg 08/12/18 13:17 Verapamil Inj IVP Q6H PRN for heart ratye >120 - Patient Studies Lab Studies: Microbiology Studies 08/11/18 11:26 Gram Stain - Final Other: Please Indicate Wound Culture - Preliminary Vancomycin Resistant E.faecium Yeast Species 08/11/18 11:26 Gram Stain - Final Other: Please Indicate Wound Culture - Preliminary Vancomycin Resistant E.faecium Yeast Species 08/10/18 09:15 Blood Culture - Preliminary Blood NO GROWTH AFTER 3 DAYS 08/10/18 09:00 Blood Culture - Preliminary Blood NO GROWTH AFTER 3 DAYS 08/11/18 11:26 Gram Stain - Final Other: Please Indicate Wound Culture - Preliminary Vancomycin Resistant E.faecium 08/10/18 20:40 Body Fluid Culture - Preliminary Abdominal Fluid Vancomycin Resistant E.faecium 08/11/18 11:26 Gram Stain - Final Abdomen Wound Culture - Preliminary Vancomycin Resistant E.faecium Lab Studies 08/13/18 08/13/18 08/13/18 Range/Units 07:28 06:00 06:00 WBC 9.6 D (4.5-11.0) 10^3/uL RBC 3.14 L (3.5-6.1) 10^6/uL Hgb 9.2 L (14.0-18.0) g/dL Hct 30.0 L (42.0-52.0) % MCV 95.5 (80.0-105.0) fl MCH 29.3 (25.0-35.0) pg MCHC 30.7 L (31.0-37.0) g/dl RDW 15.9 H (11.5-14.5) % Plt Count 85 L (120.0-450.0) 10^3/uL MPV 9.7 (7.0-11.0) fl Gran % 93.9 H (50.0-68.0) % Lymph % (Auto) 1.8 L (22.0-35.0) % [place] % (Auto) 4.3 (1.0-6.0) % Eos % (Auto) 0.0 L (1.5-5.0) % Baso % (Auto) 0.0 (0.0-3.0) % Gran # 9.05 H (1.4-6.5) Lymph # (Auto) 0.2 L (1.2-3.4) [place] # (Auto) 0.4 (0.1-0.6) Eos # (Auto) 0.0 (0.0-0.7) Baso # (Auto) 0.00 (0.0-2.0) K/mm3 Haptoglobin (30.0-200.0) mg/dL pCO2 (35-45) mm/Hg pO2 (80-100) mm/Hg HCO3 (21-28) mmol/L ABG pH (7.35-7.45) ABG Total CO2 (22-28) mmol.L ABG O2 Saturation (95-98) % ABG O2 Content (15-23) ML/dl ABG Base Excess (-2.0-3.0) mmol/L ABG Hemoglobin (11.7-17.4) g/dL ABG Carboxyhemoglobin (0.5-1.5) % POC ABG HHb (Measured) (0-5) % ABG Methemoglobin (0.0-3.0) % ABG O2 Capacity (16-24) mL/dl Hgb O2 Saturation (95.0-98.0) % FiO2 % Sodium 146 (132-148) mmol/L Potassium 3.7 (3.6-5.0) mmol/L Chloride 112 H (98-107) mmol/L Carbon Dioxide 30 (21-33) mmol/L Anion Gap 8 L (10-20) BUN 68 H (7-21) mg/dL Creatinine 1.2 (0.8-1.5) mg/dl Est GFR ( Amer) > 60 Est GFR (Non-Af Amer) 58 POC Glucose (mg/dL) 127 H (65-110) mg/dL Random Glucose 112 H (70-110) mg/dL Calcium 8.2 L (8.4-10.5) mg/dL Phosphorus 4.2 (2.5-4.5) mg/dL Magnesium 2.2 (1.7-2.2) mg/dL Transferrin (206-381) mg/dL Ferritin ng/mL Total Bilirubin 1.4 H (0.2-1.3) mg/dL AST 32 (17-59) U/L ALT 49 (7-56) U/L Alkaline Phosphatase 39 (38-126) U/L Total Protein 4.2 L (5.8-8.3) g/dL Albumin 2.3 L (3.0-4.8) g/dL Globulin 1.9 gm/dL Albumin/Globulin Ratio 1.2 (1.1-1.8) 08/13/18 08/12/18 08/12/18 Range/Units 05:50 22:32 18:30 WBC 17.6 H (4.5-11.0) 10^3/uL RBC 3.55 (3.5-6.1) 10^6/uL Hgb 10.5 L (14.0-18.0) g/dL Hct 33.8 L (42.0-52.0) % MCV 95.2 (80.0-105.0) fl MCH 29.6 (25.0-35.0) pg MCHC 31.1 (31.0-37.0) g/dl RDW 15.8 H (11.5-14.5) % Plt Count 104 L (120.0-450.0) 10^3/uL MPV 8.9 (7.0-11.0) fl Gran % 96.5 H (50.0-68.0) % Lymph % (Auto) 2.0 L (22.0-35.0) % [place] % (Auto) 1.5 (1.0-6.0) % Eos % (Auto) 0.0 L (1.5-5.0) % Baso % (Auto) 0.0 (0.0-3.0) % Gran # 16.96 H (1.4-6.5) Lymph # (Auto) 0.4 L (1.2-3.4) [place] # (Auto) 0.3 (0.1-0.6) Eos # (Auto) 0.0 (0.0-0.7) Baso # (Auto) 0.00 (0.0-2.0) K/mm3 Haptoglobin (30.0-200.0) mg/dL pCO2 43 (35-45) mm/Hg pO2 132.0 H (80-100) mm/Hg HCO3 28.5 H (21-28) mmol/L ABG pH 7.43 (7.35-7.45) ABG Total CO2 29.8 H (22-28) mmol.L ABG O2 Saturation 100.4 H (95-98) % ABG O2 Content 13.2 L (15-23) ML/dl ABG Base Excess 3.8 H (-2.0-3.0) mmol/L ABG Hemoglobin 9.5 L (11.7-17.4) g/dL ABG Carboxyhemoglobin 2.5 H (0.5-1.5) % POC ABG HHb (Measured) -0.4 L (0-5) % ABG Methemoglobin 0.8 (0.0-3.0) % ABG O2 Capacity 13.1 L (16-24) mL/dl Hgb O2 Saturation 97.1 (95.0-98.0) % FiO2 32.0 % Sodium (132-148) mmol/L Potassium (3.6-5.0) mmol/L Chloride (98-107) mmol/L Carbon Dioxide (21-33) mmol/L Anion Gap (10-20) BUN (7-21) mg/dL Creatinine (0.8-1.5) mg/dl Est GFR ( Amer) Est GFR (Non-Af Amer) POC Glucose (mg/dL) 132 H (65-110) mg/dL Random Glucose (70-110) mg/dL Calcium (8.4-10.5) mg/dL Phosphorus (2.5-4.5) mg/dL Magnesium (1.7-2.2) mg/dL Transferrin (206-381) mg/dL Ferritin ng/mL Total Bilirubin (0.2-1.3) mg/dL AST (17-59) U/L ALT (7-56) U/L Alkaline Phosphatase (38-126) U/L Total Protein (5.8-8.3) g/dL Albumin (3.0-4.8) g/dL Globulin gm/dL Albumin/Globulin Ratio (1.1-1.8) 08/12/18 08/12/18 08/12/18 Range/Units 16:25 11:55 11:55 WBC (4.5-11.0) 10^3/uL RBC (3.5-6.1) 10^6/uL Hgb (14.0-18.0) g/dL Hct (42.0-52.0) % MCV (80.0-105.0) fl MCH (25.0-35.0) pg MCHC (31.0-37.0) g/dl RDW (11.5-14.5) % Plt Count (120.0-450.0) 10^3/uL MPV (7.0-11.0) fl Gran % (50.0-68.0) % Lymph % (Auto) (22.0-35.0) % [place] % (Auto) (1.0-6.0) % Eos % (Auto) (1.5-5.0) % Baso % (Auto) (0.0-3.0) % Gran # (1.4-6.5) Lymph # (Auto) (1.2-3.4) [place] # (Auto) (0.1-0.6) Eos # (Auto) (0.0-0.7) Baso # (Auto) (0.0-2.0) K/mm3 Haptoglobin 196.8 (30.0-200.0) mg/dL pCO2 (35-45) mm/Hg pO2 (80-100) mm/Hg HCO3 (21-28) mmol/L ABG pH (7.35-7.45) ABG Total CO2 (22-28) mmol.L ABG O2 Saturation (95-98) % ABG O2 Content (15-23) ML/dl ABG Base Excess (-2.0-3.0) mmol/L ABG Hemoglobin (11.7-17.4) g/dL ABG Carboxyhemoglobin (0.5-1.5) % POC ABG HHb (Measured) (0-5) % ABG Methemoglobin (0.0-3.0) % ABG O2 Capacity (16-24) mL/dl Hgb O2 Saturation (95.0-98.0) % FiO2 % Sodium (132-148) mmol/L Potassium (3.6-5.0) mmol/L Chloride (98-107) mmol/L Carbon Dioxide (21-33) mmol/L Anion Gap (10-20) BUN (7-21) mg/dL Creatinine (0.8-1.5) mg/dl Est GFR ( Amer) Est GFR (Non-Af Amer) POC Glucose (mg/dL) 146 H (65-110) mg/dL Random Glucose (70-110) mg/dL Calcium (8.4-10.5) mg/dL Phosphorus (2.5-4.5) mg/dL Magnesium (1.7-2.2) mg/dL Transferrin (206-381) mg/dL Ferritin 306.0 ng/mL Total Bilirubin (0.2-1.3) mg/dL AST (17-59) U/L ALT (7-56) U/L Alkaline Phosphatase (38-126) U/L Total Protein (5.8-8.3) g/dL Albumin (3.0-4.8) g/dL Globulin gm/dL Albumin/Globulin Ratio (1.1-1.8) 08/12/18 Range/Units 11:52 WBC (4.5-11.0) 10^3/uL RBC (3.5-6.1) 10^6/uL Hgb (14.0-18.0) g/dL Hct (42.0-52.0) % MCV (80.0-105.0) fl MCH (25.0-35.0) pg MCHC (31.0-37.0) g/dl RDW (11.5-14.5) % Plt Count (120.0-450.0) 10^3/uL MPV (7.0-11.0) fl Gran % (50.0-68.0) % Lymph % (Auto) (22.0-35.0) % [place] % (Auto) (1.0-6.0) % Eos % (Auto) (1.5-5.0) % Baso % (Auto) (0.0-3.0) % Gran # (1.4-6.5) Lymph # (Auto) (1.2-3.4) [place] # (Auto) (0.1-0.6) Eos # (Auto) (0.0-0.7) Baso # (Auto) (0.0-2.0) K/mm3 Haptoglobin (30.0-200.0) mg/dL pCO2 (35-45) mm/Hg pO2 (80-100) mm/Hg HCO3 (21-28) mmol/L ABG pH (7.35-7.45) ABG Total CO2 (22-28) mmol.L ABG O2 Saturation (95-98) % ABG O2 Content (15-23) ML/dl ABG Base Excess (-2.0-3.0) mmol/L ABG Hemoglobin (11.7-17.4) g/dL ABG Carboxyhemoglobin (0.5-1.5) % POC ABG HHb (Measured) (0-5) % ABG Methemoglobin (0.0-3.0) % ABG O2 Capacity (16-24) mL/dl Hgb O2 Saturation (95.0-98.0) % FiO2 % Sodium (132-148) mmol/L Potassium (3.6-5.0) mmol/L Chloride (98-107) mmol/L Carbon Dioxide (21-33) mmol/L Anion Gap (10-20) BUN (7-21) mg/dL Creatinine (0.8-1.5) mg/dl Est GFR ( Amer) Est GFR (Non-Af Amer) POC Glucose (mg/dL) (65-110) mg/dL Random Glucose (70-110) mg/dL Calcium (8.4-10.5) mg/dL Phosphorus (2.5-4.5) mg/dL Magnesium (1.7-2.2) mg/dL Transferrin 114.46 L (206-381) mg/dL Ferritin ng/mL Total Bilirubin (0.2-1.3) mg/dL AST (17-59) U/L ALT (7-56) U/L Alkaline Phosphatase (38-126) U/L Total Protein (5.8-8.3) g/dL Albumin (3.0-4.8) g/dL Globulin gm/dL Albumin/Globulin Ratio (1.1-1.8) Laboratory Results - last 24 hr 08/12/18 08/12/18 08/12/18 11:52 11:55 11:55 WBC RBC Hgb Hct MCV MCH MCHC RDW Plt Count MPV Gran % Lymph % (Auto) [place] % (Auto) Eos % (Auto) Baso % (Auto) Gran # Lymph # (Auto) [place] # (Auto) Eos # (Auto) Baso # (Auto) Haptoglobin 196.8 pCO2 pO2 HCO3 ABG pH ABG Total CO2 ABG O2 Saturation ABG O2 Content ABG Base Excess ABG Hemoglobin ABG Carboxyhemoglobin POC ABG HHb (Measured) ABG Methemoglobin ABG O2 Capacity Hgb O2 Saturation FiO2 Sodium Potassium Chloride Carbon Dioxide Anion Gap BUN Creatinine Est GFR ( Amer) Est GFR (Non-Af Amer) POC Glucose (mg/dL) Random Glucose Calcium Phosphorus Magnesium Transferrin 114.46 L Ferritin 306.0 Total Bilirubin AST ALT Alkaline Phosphatase Total Protein Albumin Globulin Albumin/Globulin Ratio 08/12/18 08/12/18 08/12/18 16:25 18:30 22:32 WBC 17.6 H RBC 3.55 Hgb 10.5 L Hct 33.8 L MCV 95.2 MCH 29.6 MCHC 31.1 RDW 15.8 H Plt Count 104 L MPV 8.9 Gran % 96.5 H Lymph % (Auto) 2.0 L [place] % (Auto) 1.5 Eos % (Auto) 0.0 L Baso % (Auto) 0.0 Gran # 16.96 H Lymph # (Auto) 0.4 L [place] # (Auto) 0.3 Eos # (Auto) 0.0 Baso # (Auto) 0.00 Haptoglobin pCO2 pO2 HCO3 ABG pH ABG Total CO2 ABG O2 Saturation ABG O2 Content ABG Base Excess ABG Hemoglobin ABG Carboxyhemoglobin POC ABG HHb (Measured) ABG Methemoglobin ABG O2 Capacity Hgb O2 Saturation FiO2 Sodium Potassium Chloride Carbon Dioxide Anion Gap BUN Creatinine Est GFR ( Amer) Est GFR (Non-Af Amer) POC Glucose (mg/dL) 146 H 132 H Random Glucose Calcium Phosphorus Magnesium Transferrin Ferritin Total Bilirubin AST ALT Alkaline Phosphatase Total Protein Albumin Globulin Albumin/Globulin Ratio 08/13/18 08/13/18 08/13/18 05:50 06:00 06:00 WBC 9.6 D RBC 3.14 L Hgb 9.2 L Hct 30.0 L MCV 95.5 MCH 29.3 MCHC 30.7 L RDW 15.9 H Plt Count 85 L MPV 9.7 Gran % 93.9 H Lymph % (Auto) 1.8 L [place] % (Auto) 4.3 Eos % (Auto) 0.0 L Baso % (Auto) 0.0 Gran # 9.05 H Lymph # (Auto) 0.2 L [place] # (Auto) 0.4 Eos # (Auto) 0.0 Baso # (Auto) 0.00 Haptoglobin pCO2 43 pO2 132.0 H HCO3 28.5 H ABG pH 7.43 ABG Total CO2 29.8 H ABG O2 Saturation 100.4 H ABG O2 Content 13.2 L ABG Base Excess 3.8 H ABG Hemoglobin 9.5 L ABG Carboxyhemoglobin 2.5 H POC ABG HHb (Measured) -0.4 L ABG Methemoglobin 0.8 ABG O2 Capacity 13.1 L Hgb O2 Saturation 97.1 FiO2 32.0 Sodium 146 Potassium 3.7 Chloride 112 H Carbon Dioxide 30 Anion Gap 8 L BUN 68 H Creatinine 1.2 Est GFR ( Amer) > 60 Est GFR (Non-Af Amer) 58 POC Glucose (mg/dL) Random Glucose 112 H Calcium 8.2 L Phosphorus 4.2 Magnesium 2.2 Transferrin Ferritin Total Bilirubin 1.4 H AST 32 ALT 49 Alkaline Phosphatase 39 Total Protein 4.2 L Albumin 2.3 L Globulin 1.9 Albumin/Globulin Ratio 1.2 08/13/18 07:28 WBC RBC Hgb Hct MCV MCH MCHC RDW Plt Count MPV Gran % Lymph % (Auto) [place] % (Auto) Eos % (Auto) Baso % (Auto) Gran # Lymph # (Auto) [place] # (Auto) Eos # (Auto) Baso # (Auto) Haptoglobin pCO2 pO2 HCO3 ABG pH ABG Total CO2 ABG O2 Saturation ABG O2 Content ABG Base Excess ABG Hemoglobin ABG Carboxyhemoglobin POC ABG HHb (Measured) ABG Methemoglobin ABG O2 Capacity Hgb O2 Saturation FiO2 Sodium Potassium Chloride Carbon Dioxide Anion Gap BUN Creatinine Est GFR ( Amer) Est GFR (Non-Af Amer) POC Glucose (mg/dL) 127 H Random Glucose Calcium Phosphorus Magnesium Transferrin Ferritin Total Bilirubin AST ALT Alkaline Phosphatase Total Protein Albumin Globulin Albumin/Globulin Ratio Fingerstick Blood Sugar Results: 143 Review of Systems - Review of Systems Review of Systems: per HPI Critical Care Progress Note - Nutrition Nutrition: Nutrition Category Date Time Status NPO Diet [DIET] Diets 08/10/18 Dinner Ordered Assessment/Plan - Assessment and Plan (Free Text) Assessment: 82 y/o M with PMHx of rectal cancer POD 14 s/p R hemicolectomy & parastomal hernia repair (07/30) admitted to ICU for respiratory failure secondary to post- operative respiratory insufficiency secondary to mucus plugging of the L lung. S/p failed pulmonary toilet and s/p bronchoscopy w/ lavage x 2. Pt was found on 10/11 to have free air in the abdomen on CT scan. He had went to OR on 08/11 for laparatomy. This am, pt is s/p ileocolic resection 2/2 perforated viscus with multiorgan system failure, including respiratory failure, JOHNNY in the setting of pulmonary hypertension. Plan: Neuro/Psych: Pt extubated AxO x 3 Off of fentanyl and precedex d/t hypotension Will use benzodiazepines prn Cardio Pt s/p exploratory laparotomy w/ ileocolic resection 2/2 perforated viscus Pt normotensive at 120/50s. Clonidine per PMD No vasopressors right now Avoid hypovolemia with fluid resuscitation IJ central line in place stress dose solucortef Measure CVP Cardizem/Metoprolol IVP q6h Precedex held Echo reveals severe pulmonary hypertension w. R ventricular insufficiency in the setting of L ventricular dysfunction Monitor H/H for signs sx of bleeding Pulmonary Extubated 08/12 On nasal cannula 3L NC, maintain Spo2 >90% Conservative fluid/oxygen management HOB elevated >35 degrees Oral hygiene sedation vacation Post-op respiratory insufficiency 2/2 mucus plugs s/p bronchoscopy w/ lavage 08/03 & 08/05 COPD Xopenex q6h Acetylcysteine 4ml IH q6h Budesonide GI POD 1 (08/11) s/p exploratory laparotomy ileocolic resection s/p viscus perforation Colostomy bag in place, brown stool noted. RUSSELL drain in place, draining serosanguinous fluid NPO except meds GI ppx Surgery/GI teams following Monitor for signs of overt bleeding /Renal JOHNNY 2/2 sepsis related to ATN Maintain MAP >56 maintain euvolemia with fluid resuscitation Avoid nephrotoxic medications Hold lasix Heme H/H stable Tranfuse if Hgb <8 hold anticoagulation ID Leukocytosis like 2/2 peritonitis vs reactive post-op Wound culture/abdominal fluid culture growing VRE Pt on meropenem. Started on Daptomycin Thiamine for lactic acidosis treatment LLL infiltrate Procalcitonin 08/10 elevated Endo Continue stress dose solu-cortef BG between 140-180 according to NICE-SUGAR trial DVT/GI PPx: lovenox/pepcid Case seen, examined and discussed with attending physician, Dr. Keys <Yeni Keys - Last Filed: 08/13/18 17:08> CCU Objective - Vital Signs / Intake & Output Vital Signs (Last 4 hours): Vital Signs Pulse Resp BP Pulse Ox 08/13/18 16:53 100 H 144/90 08/13/18 15:00 99 H 21 134/49 L 100 08/13/18 14:00 80 149/67 08/13/18 13:59 98 H 19 Intake and Output (Last 8hrs): Intake & Output 08/13/18 08/13/18 08/13/18 06:59 14:59 22:59 Intake Total 660 Output Total 1080 Balance -420 Weight 64.864 kg Intake: IV 300 Right Internal Jugular 300 Oral 360 Output: Gastric Amount 400 Right 400 Drainage 120 Right Abdomen 120 Urine 110 Urethral ([place]int[place]) 110 Emesis 0 Oral Regurgitation 450 Other: # Bowel Movements 1 - Medications Active Medications: Active Medications Generic Name Dose Route Start Last Admin Trade Name Freq PRN Reason Stop Dose Admin Acetylcysteine 4 ml 08/12/18 13:00 08/13/18 13:37 Acetylcysteine 20% IH 4 ml [id number] KD Administration Apixaban 2.5 mg 08/04/18 18:00 08/09/18 10:14 Eliquis PO Not Given BID KD Budesonide 0.5 mg 08/13/18 08:00 08/13/18 13:38 Pulmicort Respules IH 0.5 mg [id number] KD Administration Clonidine HCl 1 patch 08/13/18 10:00 08/13/18 09:12 Catapres Tts1 0.1 Mg/24 Hr TD 1 patch Q7D@1000 KD Administration Dextrose 0 ml 08/01/18 23:07 Dextrose 50% Inj IV STAT PRN Hypoglycemia Protocol Protocol Diltiazem HCl 360 mg 07/31/18 10:00 08/11/18 11:54 Cardizem Cd PO Not Given DAILY KD Enoxaparin Sodium 60 mg 08/09/18 13:30 08/10/18 19:29 Lovenox SC Not Given Q12H KD Protocol Enoxaparin Sodium 30 mg 08/14/18 10:00 Lovenox SC DAILY [facility] Protocol Famotidine 20 mg 08/12/18 22:13 08/13/18 09:05 Pepcid IVP 20 mg DAILY KD Administration Hydromorphone HCl 0.5 mg 08/11/18 00:08 08/13/18 02:00 Dilaudid IVP 0.5 mg Q4H PRN Administration Pain, moderate (4-7) Dextrose 1,000 mls @ 0 mls/hr 08/01/18 23:07 Dextrose 5% In Water 1000 Ml IV .Q0M PRN Hypoglycemia Protocol Protocol Per Protocol Meropenem 1 gm in 50 mls @ 100 mls/hr 08/11/18 10:00 08/13/18 09:07 Merrem Iv 1 Gm Premix IVPB 08/20/18 10:01 100 mls/hr Q12 KD Administration Protocol Daptomycin 390 mg/ Sodium 100 mls @ 200 mls/hr 08/13/18 11:45 08/13/18 13:30 Chloride IV 08/20/18 11:46 200 mls/hr Q24H KD Administration Phenytoin 100 mg/ Sodium 52 mls @ 104 mls/hr 08/13/18 17:00 Chloride IVPB Q8 KD Insulin Human Lispro 0 units 08/04/18 11:30 08/13/18 16:50 Humalog Low SC Not Given ACHS KD Protocol Levalbuterol HCl 1.25 mg 08/02/18 14:00 08/13/18 13:37 Xopenex IH 1.25 mg [id number] KD Administration Lidocaine 1 ea 08/10/18 10:00 08/13/18 09:06 Lidoderm TD 1 ea DAILY KD Administration Methylprednisolone 40 mg 08/13/18 17:15 Solu-Medrol IVP DAILY [facility] Metoprolol Tartrate 50 mg 08/10/18 17:00 08/11/18 08:38 Lopressor PO Not Given BRKDIN KD Metoprolol Tartrate 5 mg 08/11/18 09:00 08/13/18 16:53 Lopressor IVP 5 mg Q6H KD Administration Thiamine HCl 100 mg 08/11/18 15:30 08/13/18 09:05 Vitamin B1 Inj IV 100 mg DAILY KD Administration Verapamil HCl 2.5 mg 08/12/18 13:17 Verapamil Inj IVP Q6H PRN for heart ratye >120 - Patient Studies Lab Studies: Microbiology Studies 08/11/18 11:26 Gram Stain - Final Abdomen Wound Culture - Final Vancomycin Resistant E.faecium 08/11/18 11:26 Gram Stain - Final Other: Please Indicate Wound Culture - Preliminary Vancomycin Resistant E.faecium Yeast Species 08/10/18 20:40 Body Fluid Culture - Preliminary Abdominal Fluid Vancomycin Resistant E.faecium Yeast Species 08/11/18 11:26 Gram Stain - Final Other: Please Indicate Wound Culture - Preliminary Vancomycin Resistant E.faecium Yeast Species 08/11/18 11:26 Gram Stain - Final Other: Please Indicate Wound Culture - Preliminary Vancomycin Resistant E.faecium Yeast Species 08/10/18 09:15 Blood Culture - Preliminary Blood NO GROWTH AFTER 3 DAYS 08/10/18 09:00 Blood Culture - Preliminary Blood NO GROWTH AFTER 3 DAYS Lab Studies 08/13/18 08/13/18 08/13/18 Range/Units 14:25 11:48 07:28 WBC (4.5-11.0) 10^3/uL RBC (3.5-6.1) 10^6/uL Hgb (14.0-18.0) g/dL Hct (42.0-52.0) % MCV (80.0-105.0) fl MCH (25.0-35.0) pg MCHC (31.0-37.0) g/dl RDW (11.5-14.5) % Plt Count (120.0-450.0) 10^3/uL MPV (7.0-11.0) fl Gran % (50.0-68.0) % Lymph % (Auto) (22.0-35.0) % [place] % (Auto) (1.0-6.0) % Eos % (Auto) (1.5-5.0) % Baso % (Auto) (0.0-3.0) % Gran # (1.4-6.5) Lymph # (Auto) (1.2-3.4) [place] # (Auto) (0.1-0.6) Eos # (Auto) (0.0-0.7) Baso # (Auto) (0.0-2.0) K/mm3 pCO2 (35-45) mm/Hg pO2 (80-100) mm/Hg HCO3 (21-28) mmol/L ABG pH (7.35-7.45) ABG Total CO2 (22-28) mmol.L ABG O2 Saturation (95-98) % ABG O2 Content (15-23) ML/dl ABG Base Excess (-2.0-3.0) mmol/L ABG Hemoglobin (11.7-17.4) g/dL ABG Carboxyhemoglobin (0.5-1.5) % POC ABG HHb (Measured) (0-5) % ABG Methemoglobin (0.0-3.0) % ABG O2 Capacity (16-24) mL/dl Hgb O2 Saturation (95.0-98.0) % FiO2 % Sodium (132-148) mmol/L Potassium (3.6-5.0) mmol/L Chloride (98-107) mmol/L Carbon Dioxide (21-33) mmol/L Anion Gap (10-20) BUN (7-21) mg/dL Creatinine (0.8-1.5) mg/dl Est GFR ( Amer) Est GFR (Non-Af Amer) POC Glucose (mg/dL) 143 H 127 H (65-110) mg/dL Random Glucose (70-110) mg/dL Calcium (8.4-10.5) mg/dL Phosphorus (2.5-4.5) mg/dL Magnesium (1.7-2.2) mg/dL Total Bilirubin (0.2-1.3) mg/dL AST (17-59) U/L ALT (7-56) U/L Alkaline Phosphatase (38-126) U/L Total Creatine Kinase 178 (35-230) U/L Total Protein (5.8-8.3) g/dL Albumin (3.0-4.8) g/dL Globulin gm/dL Albumin/Globulin Ratio (1.1-1.8) 08/13/18 08/13/18 08/13/18 Range/Units 06:00 06:00 05:50 WBC 9.6 D (4.5-11.0) 10^3/uL RBC 3.14 L (3.5-6.1) 10^6/uL Hgb 9.2 L (14.0-18.0) g/dL Hct 30.0 L (42.0-52.0) % MCV 95.5 (80.0-105.0) fl MCH 29.3 (25.0-35.0) pg MCHC 30.7 L (31.0-37.0) g/dl RDW 15.9 H (11.5-14.5) % Plt Count 85 L (120.0-450.0) 10^3/uL MPV 9.7 (7.0-11.0) fl Gran % 93.9 H (50.0-68.0) % Lymph % (Auto) 1.8 L (22.0-35.0) % [place] % (Auto) 4.3 (1.0-6.0) % Eos % (Auto) 0.0 L (1.5-5.0) % Baso % (Auto) 0.0 (0.0-3.0) % Gran # 9.05 H (1.4-6.5) Lymph # (Auto) 0.2 L (1.2-3.4) [place] # (Auto) 0.4 (0.1-0.6) Eos # (Auto) 0.0 (0.0-0.7) Baso # (Auto) 0.00 (0.0-2.0) K/mm3 pCO2 43 (35-45) mm/Hg pO2 132.0 H (80-100) mm/Hg HCO3 28.5 H (21-28) mmol/L ABG pH 7.43 (7.35-7.45) ABG Total CO2 29.8 H (22-28) mmol.L ABG O2 Saturation 100.4 H (95-98) % ABG O2 Content 13.2 L (15-23) ML/dl ABG Base Excess 3.8 H (-2.0-3.0) mmol/L ABG Hemoglobin 9.5 L (11.7-17.4) g/dL ABG Carboxyhemoglobin 2.5 H (0.5-1.5) % POC ABG HHb (Measured) -0.4 L (0-5) % ABG Methemoglobin 0.8 (0.0-3.0) % ABG O2 Capacity 13.1 L (16-24) mL/dl Hgb O2 Saturation 97.1 (95.0-98.0) % FiO2 32.0 % Sodium 146 (132-148) mmol/L Potassium 3.7 (3.6-5.0) mmol/L Chloride 112 H (98-107) mmol/L Carbon Dioxide 30 (21-33) mmol/L Anion Gap 8 L (10-20) BUN 68 H (7-21) mg/dL Creatinine 1.2 (0.8-1.5) mg/dl Est GFR ( Amer) > 60 Est GFR (Non-Af Amer) 58 POC Glucose (mg/dL) (65-110) mg/dL Random Glucose 112 H (70-110) mg/dL Calcium 8.2 L (8.4-10.5) mg/dL Phosphorus 4.2 (2.5-4.5) mg/dL Magnesium 2.2 (1.7-2.2) mg/dL Total Bilirubin 1.4 H (0.2-1.3) mg/dL AST 32 (17-59) U/L ALT 49 (7-56) U/L Alkaline Phosphatase 39 (38-126) U/L Total Creatine Kinase (35-230) U/L Total Protein 4.2 L (5.8-8.3) g/dL Albumin 2.3 L (3.0-4.8) g/dL Globulin 1.9 gm/dL Albumin/Globulin Ratio 1.2 (1.1-1.8) 08/12/18 08/12/18 Range/Units 22:32 18:30 WBC 17.6 H (4.5-11.0) 10^3/uL RBC 3.55 (3.5-6.1) 10^6/uL Hgb 10.5 L (14.0-18.0) g/dL Hct 33.8 L (42.0-52.0) % MCV 95.2 (80.0-105.0) fl MCH 29.6 (25.0-35.0) pg MCHC 31.1 (31.0-37.0) g/dl RDW 15.8 H (11.5-14.5) % Plt Count 104 L (120.0-450.0) 10^3/uL MPV 8.9 (7.0-11.0) fl Gran % 96.5 H (50.0-68.0) % Lymph % (Auto) 2.0 L (22.0-35.0) % [place] % (Auto) 1.5 (1.0-6.0) % Eos % (Auto) 0.0 L (1.5-5.0) % Baso % (Auto) 0.0 (0.0-3.0) % Gran # 16.96 H (1.4-6.5) Lymph # (Auto) 0.4 L (1.2-3.4) [place] # (Auto) 0.3 (0.1-0.6) Eos # (Auto) 0.0 (0.0-0.7) Baso # (Auto) 0.00 (0.0-2.0) K/mm3 pCO2 (35-45) mm/Hg pO2 (80-100) mm/Hg HCO3 (21-28) mmol/L ABG pH (7.35-7.45) ABG Total CO2 (22-28) mmol.L ABG O2 Saturation (95-98) % ABG O2 Content (15-23) ML/dl ABG Base Excess (-2.0-3.0) mmol/L ABG Hemoglobin (11.7-17.4) g/dL ABG Carboxyhemoglobin (0.5-1.5) % POC ABG HHb (Measured) (0-5) % ABG Methemoglobin (0.0-3.0) % ABG O2 Capacity (16-24) mL/dl Hgb O2 Saturation (95.0-98.0) % FiO2 % Sodium (132-148) mmol/L Potassium (3.6-5.0) mmol/L Chloride (98-107) mmol/L Carbon Dioxide (21-33) mmol/L Anion Gap (10-20) BUN (7-21) mg/dL Creatinine (0.8-1.5) mg/dl Est GFR ( Amer) Est GFR (Non-Af Amer) POC Glucose (mg/dL) 132 H (65-110) mg/dL Random Glucose (70-110) mg/dL Calcium (8.4-10.5) mg/dL Phosphorus (2.5-4.5) mg/dL Magnesium (1.7-2.2) mg/dL Total Bilirubin (0.2-1.3) mg/dL AST (17-59) U/L ALT (7-56) U/L Alkaline Phosphatase (38-126) U/L Total Creatine Kinase (35-230) U/L Total Protein (5.8-8.3) g/dL Albumin (3.0-4.8) g/dL Globulin gm/dL Albumin/Globulin Ratio (1.1-1.8) Laboratory Results - last 24 hr 08/12/18 08/12/18 08/13/18 18:30 22:32 05:50 WBC 17.6 H RBC 3.55 Hgb 10.5 L Hct 33.8 L MCV 95.2 MCH 29.6 MCHC 31.1 RDW 15.8 H Plt Count 104 L MPV 8.9 Gran % 96.5 H Lymph % (Auto) 2.0 L [place] % (Auto) 1.5 Eos % (Auto) 0.0 L Baso % (Auto) 0.0 Gran # 16.96 H Lymph # (Auto) 0.4 L [place] # (Auto) 0.3 Eos # (Auto) 0.0 Baso # (Auto) 0.00 pCO2 43 pO2 132.0 H HCO3 28.5 H ABG pH 7.43 ABG Total CO2 29.8 H ABG O2 Saturation 100.4 H ABG O2 Content 13.2 L ABG Base Excess 3.8 H ABG Hemoglobin 9.5 L ABG Carboxyhemoglobin 2.5 H POC ABG HHb (Measured) -0.4 L ABG Methemoglobin 0.8 ABG O2 Capacity 13.1 L Hgb O2 Saturation 97.1 FiO2 32.0 Sodium Potassium Chloride Carbon Dioxide Anion Gap BUN Creatinine Est GFR ( Amer) Est GFR (Non-Af Amer) POC Glucose (mg/dL) 132 H Random Glucose Calcium Phosphorus Magnesium Total Bilirubin AST ALT Alkaline Phosphatase Total Creatine Kinase Total Protein Albumin Globulin Albumin/Globulin Ratio 08/13/18 08/13/18 08/13/18 06:00 06:00 07:28 WBC 9.6 D RBC 3.14 L Hgb 9.2 L Hct 30.0 L MCV 95.5 MCH 29.3 MCHC 30.7 L RDW 15.9 H Plt Count 85 L MPV 9.7 Gran % 93.9 H Lymph % (Auto) 1.8 L [place] % (Auto) 4.3 Eos % (Auto) 0.0 L Baso % (Auto) 0.0 Gran # 9.05 H Lymph # (Auto) 0.2 L [place] # (Auto) 0.4 Eos # (Auto) 0.0 Baso # (Auto) 0.00 pCO2 pO2 HCO3 ABG pH ABG Total CO2 ABG O2 Saturation ABG O2 Content ABG Base Excess ABG Hemoglobin ABG Carboxyhemoglobin POC ABG HHb (Measured) ABG Methemoglobin ABG O2 Capacity Hgb O2 Saturation FiO2 Sodium 146 Potassium 3.7 Chloride 112 H Carbon Dioxide 30 Anion Gap 8 L BUN 68 H Creatinine 1.2 Est GFR ( Amer) > 60 Est GFR (Non-Af Amer) 58 POC Glucose (mg/dL) 127 H Random Glucose 112 H Calcium 8.2 L Phosphorus 4.2 Magnesium 2.2 Total Bilirubin 1.4 H AST 32 ALT 49 Alkaline Phosphatase 39 Total Creatine Kinase Total Protein 4.2 L Albumin 2.3 L Globulin 1.9 Albumin/Globulin Ratio 1.2 08/13/18 08/13/18 11:48 14:25 WBC RBC Hgb Hct MCV MCH MCHC RDW Plt Count MPV Gran % Lymph % (Auto) [place] % (Auto) Eos % (Auto) Baso % (Auto) Gran # Lymph # (Auto) [place] # (Auto) Eos # (Auto) Baso # (Auto) pCO2 pO2 HCO3 ABG pH ABG Total CO2 ABG O2 Saturation ABG O2 Content ABG Base Excess ABG Hemoglobin ABG Carboxyhemoglobin POC ABG HHb (Measured) ABG Methemoglobin ABG O2 Capacity Hgb O2 Saturation FiO2 Sodium Potassium Chloride Carbon Dioxide Anion Gap BUN Creatinine Est GFR ( Amer) Est GFR (Non-Af Amer) POC Glucose (mg/dL) 143 H Random Glucose Calcium Phosphorus Magnesium Total Bilirubin AST ALT Alkaline Phosphatase Total Creatine Kinase 178 Total Protein Albumin Globulin Albumin/Globulin Ratio Critical Care Progress Note - Nutrition Nutrition: Nutrition Category Date Time Status NPO Diet [DIET] Diets 08/10/18 Dinner Ordered Addendum Addendum: 08/13/18 17:08 ICU ATTENDING : Patent seen and examined with housestaff on 08/05. Agree with progress note with following additions/exceptions: 82 M with hx of rectal cancer s/p total colectomy, zenker's diverticulum, thrombocytopenia, stent placement for AAA, seizure disorder, hypertension, hyperlipidemia, atrial fibrillation on eliquis s/p polyp removal with parastomal hernia repair, with multi organ failure, and lung collapse now s/p ex-lap ileocolic resect s/p perf extubated 08/12 Cont IV solumedrol 40mg daily, will need to taper since he has been on prolonged steroids prior to his perf Abx as per ID Wound growing VRE blood cx NG x 3days Holding AC (apix and lovenox ) He has not required insulin and we can subjecting him to fingersticks Johnny improved COPD - cont nebs feeding as per surgery Yeni Keys MD MICU Attending Critical care time 30 minutes
[2018-08-13] MEDS: Budesonide 0.5 mg/2 ml Inhal Susp UD IH SCH ×2 (13:38→20:41)
--- NOTE | 2018-08-13 15:52 | PN ---
DATE: 08/13/2018 SUBJECTIVE: The patient is in bed, in no acute distress, nontoxic. PHYSICAL EXAMINATION: VITAL SIGNS: Temperature is 97, blood pressure is 130/50 and respiratory rate of 18. HEENT: Unremarkable. NECK: Supple. LUNGS: Have decreased breath sounds. HEART: Normal, S1 and S2. ABDOMEN: Soft and nontender. LABORATORY DATA: Reveals the patient's white count is 9.6, hemoglobin of 9 and platelets of 85. Chemistries reveal a BUN of 68 and creatinine of 1.2. Procalcitonin is 0.79 and urinalysis is noted. Toxicology is reviewed and serology is negative. Microbiology reveals a VRE from the wound. The patient has multiple cultures for VRE from the OR cultures, although he is improving, four cultures are significant. ASSESSMENT AND PLAN: This is an 82-year-old male, who was seen earlier this morning in ICU 129, bed 2. Admitted with severe sepsis, healthcare-associated pneumonia, acute kidney injury, respiratory failure, intubated on a ventilator now. The patient was extubated, had a bronchoscopy by Dr. Blevins and the patient did well and then developed perforated bowel, was taken to the operating room, had exploratory laparotomy and perforated ileum and postoperative diagnoses by Dr. Du and today is postprocedure day #5, status post expiratory lap and ileum perforation, now with a vancomycin resistant enterococcus in all the operating room cultures in a patient who has very low platelets, hesitant to use Zyvox and we will start Daptomycin from now and continue with meropenem, short course of antibiotics. The patient is currently in the unit. We will follow closely with you. We will check on a CPK. Jason Garvin MD
--- NOTE | 2018-08-13 16:54 | PN ---
DATE: 08/13/2018 REASON FOR CONSULTATION AND FOLLOWUP: AFib, history of right hemicolectomy, multiple collapse of the lung recently, status post exploratory laparotomy for perforation of viscus, is status post extubated. SUBJECTIVE: Patient denies any chest pain, shortness of breath, or any palpitation status post extubated, NG tube in place. PHYSICAL EXAMINATION: VITAL SIGNS: Temperature afebrile, heart rate 100, and blood pressure 124/63. HEENT: PERRLA. Extraocular muscles intact. NECK: Supple. No carotid bruits or thyromegaly. CHEST: Clear to auscultation. HEART: S1 and S2 regular. ABDOMEN: Soft. EXTREMITIES: Clubbing and cyanosis negative. LABORATORY DATA: Blood workup as follows: WBC 9.6, hemoglobin 9, hematocrit 30, and platelet count 85. Chemistry shows sodium 140, potassium 3.7, chloride 112, carbon dioxide 30, anion gap of 8, BUN 68, and creatinine 1.2. IMPRESSION: Status post exploratory laparotomy for perforation of viscus day before yesterday, status post right hemicolectomy since multiple times of collapse of the lung, status post intubated, now successfully extubated, history of abdominal aortic aneurysm status post endovascular stent repair as of 04/2018. Prior to this, the patient had negative stress test. Repeat echocardiogram done on 08/03/2018 shows preserved left ventricular function, ejection fraction 55%, trace aortic regurgitation, moderate mitral regurgitation, moderate tricuspid regurgitation, right ventricular systolic pressure 47, mild to moderate pulmonary insufficiency. The patient is in atrial fibrillation, off anticoagulation because of patient's condition. The patient back and forth multiple times, collapse of the lung and thus went into perforation of viscus. If remained stable, we will start deep vein thrombosis prophylaxis for now. Eliquis is on hold. When the patient starts eating, we will resume back anticoagulation, but now we will start deep venous prophylaxis from tomorrow. We will follow with you. Thank you, Dr. Du, for providing us the opportunity in taking care of the patient, Roshan Randyoly. Gladis Greenfield MD [facility] # [id number]
[2018-08-13] MEDS: MethylPREDNISolone 40 mg Vial IVP SCH (17:13)
--- NOTE | 2018-08-13 19:09 | US ---
PROCEDURE: Right upper extremity venous US CLINICAL HISTORY: Arm pain and swelling Evaluate for deep venous thrombosis. PHYSICIAN(S): Bill Eduardo M.D FINDINGS: The right internal jugular vein was not evaluated due to the bandages. The visualized right subclavian vein is patent and normal. The visualized deep venous system of the proximal right upper extremity is patent and compressible. IMPRESSION: 1. No sonographic evidence for deep venous thrombosis in the visualized segments of the right upper extremity. The right internal jugular vein is not evaluated
[2018-08-13 19:29] LABS: URINE BILIRUBIN NEGATIVE (NEGATIVE); URINE BLOOD LARGE (NEGATIVE); URINE GLUCOSE (UA) NEGATIVE (NEGATIVE); URINE LEUKOCYTE ESTERASE SMALL Leu/uL (NEGATIVE); URINE PROTEIN 30 mg/dL (<30 mg/dL); URINE UROBILINOGEN 0.2 E.U./dL (<1 E.U./dL)
[2018-08-13 19:30] LABS: URINE APPEARANCE SLIGHT-CLOUDY (CLEAR); URINE COLOR DARK YELLOW (YELLOW)
[2018-08-13 19:39] LABS: URINE BACTERIA MOD (NEG)
[2018-08-13 19:45] LABS: URINE FINE GRANULAR CAST 0 - 2 /hpf (0-2)
[2018-08-13] MEDS ORDERED: Sodium Chloride 0.9% 1,000 ML IV SCH (21:00)
[2018-08-14] MEDS: Acetylcysteine 20% Inhal Soln (4ml) IH SCH ×4 (01:26→20:00)
[2018-08-14] MEDS: Levalbuterol 1.25 MG/3 ML Inhal Soln UD IH SCH ×4 (01:27→20:00)
[2018-08-14] MEDS: Metoprolol 1 mg/ml Inj IVP SCH ×3 (04:28→15:15)
--- NOTE | 2018-08-14 05:28 | CP.PCM.PCO ---
Physician Communication Note - Physician Communication Note Physician Communication Note: +VRE(abd)RxZyvox/Taper steroids
[2018-08-14 06:42] LABS: ARTERIAL BLOOD GAS HCO3 28.5 mmol/L (21-28); ARTERIAL BLOOD GAS HEMOGLOBIN 12.6 g/dL (11.7-17.4); ARTERIAL BLOOD GAS O2 CAPACITY 17.1 mL/dl (16-24); ARTERIAL BLOOD GAS O2 CONTENT 16.9 ML/dl (15-23); ARTERIAL BLOOD GAS O2 SAT 98.8 % (95-98); ARTERIAL BLOOD GAS PCO2 44 mm/Hg (35-45); ARTERIAL BLOOD GAS PH 7.42 (7.35-7.45); ARTERIAL BLOOD GAS TCO2 29.9 mmol.L (22-28)
[2018-08-14 07:24] LABS: GRAN # 8.58 (1.4-6.5); GRAN % 92.8 % (50.0-68.0); HEMOGLOBIN 10.7 g/dL (14.0-18.0); LYMPH # 0.3 (1.2-3.4); LYMPH % 2.9 % (22.0-35.0); MEAN CELL VOLUME 95.5 fl (80.0-105.0); MEAN CORPUSCULAR HGB CONC 31.4 g/dl (31.0-37.0); MEAN PLATELET VOLUME 9.2 fl (7.0-11.0); MONO # 0.4 (0.1-0.6); MONO % 4.3 % (1.0-6.0); PLATELET COUNT 69 10^3/uL (120.0-450.0); RBC 3.57 10^6/uL (3.5-6.1); WHITE BLOOD COUNT 9.3 10^3/uL (4.5-11.0)
[2018-08-14 07:52] LABS: ALB/GLOB RATIO 1.2 (1.1-1.8); ALBUMIN 2.3 g/dL (3.0-4.8); ALT/SGPT 52 U/L (7-56); AST/SGOT 41 U/L (17-59); BLOOD UREA NITROGEN 59 mg/dL (7-21); CALCIUM 8.1 mg/dL (8.4-10.5); GFR NON-AFRICAN AMERICAN > 60
--- NOTE | 2018-08-14 07:56 | CP.PCM.PN ---
Subjective - Date & Time of Evaluation Date of Evaluation: 08/14/18 Time of Evaluation: 07:52 - Subjective Subjective: Surgery: Dr. Du Patient clinically improved today. +ostomy output. Denies n/v/f/c. He reports hunger and would like to drink. Patient received 1 unit PRBC last night. Objective - Vital Signs/Intake and Output Vital Signs (last 24 hours): Temp Pulse Resp BP Pulse Ox 97.6 F 97 H 22 140/72 98 08/14/18 04:00 08/14/18 07:00 08/14/18 07:00 08/14/18 07:00 08/14/18 07:00 Intake and Output: 08/14/18 08/14/18 06:59 18:59 Intake Total 700 Output Total 1060 Balance -360 - Medications Medications: Current Medications Acetylcysteine (Acetylcysteine 20%) 4 ml IH [id number] [facility] Last Admin: 08/14/18 01:26 Dose: 4 ml Apixaban (Eliquis) 2.5 mg PO BID [facility] Last Admin: 08/09/18 10:14 Dose: Not Given Budesonide (Pulmicort Respules) 0.5 mg IH [id number] KD Last Admin: 08/13/18 20:41 Dose: Not Given Clonidine HCl (Catapres Tts1 0.1 Mg/24 Hr) 1 patch TD Q7D@1000 KD Last Admin: 08/13/18 09:12 Dose: 1 patch Dextrose (Dextrose 50% Inj) 0 ml IV STAT PRN; Protocol PRN Reason: Hypoglycemia Protocol Diltiazem HCl (Cardizem Cd) 360 mg PO DAILY [facility] Last Admin: 08/11/18 11:54 Dose: Not Given Enoxaparin Sodium (Lovenox) 60 mg SC Q12H KD; Protocol Last Admin: 08/10/18 19:29 Dose: Not Given Enoxaparin Sodium (Lovenox) 30 mg SC DAILY KD; Protocol Famotidine (Pepcid) 20 mg IVP DAILY [facility] Last Admin: 08/13/18 09:05 Dose: 20 mg Hydromorphone HCl (Dilaudid) 0.5 mg IVP Q4H PRN PRN Reason: Pain, moderate (4-7) Last Admin: 08/13/18 02:00 Dose: 0.5 mg Dextrose (Dextrose 5% In Water 1000 Ml) 1,000 mls @ 0 mls/hr IV .Q0M PRN; Protocol PRN Reason: Hypoglycemia Protocol Meropenem (Merrem Iv 1 Gm Premix) 1 gm in 50 mls @ 100 mls/hr IVPB Q12 KD; Protocol Stop: 08/20/18 10:01 Last Admin: 08/13/18 21:18 Dose: 100 mls/hr Daptomycin 390 mg/ Sodium (Chloride) 100 mls @ 200 mls/hr IV Q24H KD Stop: 08/20/18 11:46 Last Admin: 08/13/18 13:30 Dose: 200 mls/hr Phenytoin 100 mg/ Sodium (Chloride) 52 mls @ 104 mls/hr IVPB Q8 KD Last Admin: 08/14/18 06:28 Dose: 104 mls/hr Sodium Chloride (Sodium Chloride 0.9%) 1,000 mls @ 50 mls/hr IV .Q20H KD Last Admin: 08/13/18 21:32 Dose: 50 mls/hr Insulin Human Lispro (Humalog Low) 0 units SC ACHS KD; Protocol Last Admin: 08/13/18 21:41 Dose: Not Given Levalbuterol HCl (Xopenex) 1.25 mg IH [id number] [facility] Last Admin: 08/14/18 01:27 Dose: 1.25 mg Lidocaine (Lidoderm) 1 ea TD DAILY [facility] Last Admin: 08/13/18 09:06 Dose: 1 ea Methylprednisolone (Solu-Medrol) 40 mg IVP DAILY [facility] Last Admin: 08/13/18 17:13 Dose: 40 mg Metoprolol Tartrate (Lopressor) 50 mg PO BRKDIN [facility] Last Admin: 08/11/18 08:38 Dose: Not Given Metoprolol Tartrate (Lopressor) 5 mg IVP Q6H KD Last Admin: 08/14/18 04:28 Dose: 5 mg Thiamine HCl (Vitamin B1 Inj) 100 mg IV DAILY [facility] Last Admin: 08/13/18 09:05 Dose: 100 mg Verapamil HCl (Verapamil Inj) 2.5 mg IVP Q6H PRN PRN Reason: for heart ratye >120 - Labs Labs: 08/14/18 07:00 08/13/18 06:00 PT 14.5 SECONDS (9.4-12.5) H 10/31/18 12:50 INR 1.26 08/11/18 12:50 APTT 33.2 Seconds (25.1-36.5) 08/11/18 12:50 - Constitutional Appears: Chronically Ill - Head Exam Head Exam: ATRAUMATIC, NORMOCEPHALIC - Eye Exam Eye Exam: EOMI, Normal appearance - ENT Exam ENT Exam: Mucous Membranes Moist - Respiratory Exam Respiratory Exam: NORMAL BREATHING PATTERN. absent: Respiratory Distress - Cardiovascular Exam Cardiovascular Exam: REGULAR RHYTHM. absent: Tachycardia - GI/Abdominal Exam GI & Abdominal Exam: Soft. absent: Distended, Guarding, Tenderness, Rebound Additional comments: dressing CDI, SA fluid output from Mayra drain. Stool in ostomy bag. Assessment and Plan - Assessment and Plan (Free Text) Assessment: 82 y/o male s/p ex lap for ileal perforation POD3 Plan: -ok fro clear liquids -aggressive pulmonary toilet -encourage incentive spirometer -monitor mayra output -cont abx per ID, + VRE on Dapto for coverage -further care per ICU -d/w Dr. Florian Guevara PGY4
[2018-08-14 08:32] LABS: LYMPHOCYTE 1 % (22.0-35.0); MONOCYTE 1 % (1.0-6.0); MYELOCYTE 1 %; NEUTROPHIL 97 % (50.0-70.0); PLATELET ESTIMATE LOW (NORMAL)
--- NOTE | 2018-08-14 08:34 | RAD ---
Date of service: 08/14/2018 HISTORY: f/u COMPARISON: 08/13/2018 FINDINGS: LUNGS: Patient is severely rotated to the left side. There is no focal infiltrate PLEURA: No significant pleural effusion identified, no pneumothorax apparent. CARDIOVASCULAR: Aortic calcification Moderate to severe cardiomegaly no pulmonary vascular congestion. OSSEOUS STRUCTURES: No significant abnormalities. VISUALIZED UPPER ABDOMEN: Small amount of persistent free air beneath the diaphragms OTHER FINDINGS: Central line unchanged IMPRESSION: No active disease.
--- NOTE | 2018-08-14 08:53 | CP.PCM.PN ---
Subjective - Date & Time of Evaluation Date of Evaluation: 08/14/18 Time of Evaluation: 08:00 - Subjective Subjective: Patient seen and examined at bedside, resting comfortably, in NAD, doing well, no major complaints. Objective - Vital Signs/Intake and Output Vital Signs (last 24 hours): Temp Pulse Resp BP Pulse Ox 97.6 F 97 H 22 140/72 98 08/14/18 04:00 08/14/18 07:00 08/14/18 07:00 08/14/18 07:00 08/14/18 07:00 Intake and Output: 08/14/18 08/14/18 06:59 18:59 Intake Total 700 Output Total 1060 Balance -360 - Medications Medications: Current Medications Acetylcysteine (Acetylcysteine 20%) 4 ml IH [id number] [facility] Last Admin: 08/14/18 01:26 Dose: 4 ml Apixaban (Eliquis) 2.5 mg PO BID [facility] Last Admin: 08/09/18 10:14 Dose: Not Given Budesonide (Pulmicort Respules) 0.5 mg IH [id number] [facility] Last Admin: 08/13/18 20:41 Dose: Not Given Clonidine HCl (Catapres Tts1 0.1 Mg/24 Hr) 1 patch TD Q7D@1000 KD Last Admin: 08/13/18 09:12 Dose: 1 patch Dextrose (Dextrose 50% Inj) 0 ml IV STAT PRN; Protocol PRN Reason: Hypoglycemia Protocol Diltiazem HCl (Cardizem Cd) 360 mg PO DAILY [facility] Last Admin: 08/11/18 11:54 Dose: Not Given Enoxaparin Sodium (Lovenox) 60 mg SC Q12H KD; Protocol Last Admin: 08/10/18 19:29 Dose: Not Given Enoxaparin Sodium (Lovenox) 30 mg SC DAILY [facility]; Protocol Famotidine (Pepcid) 20 mg IVP DAILY [facility] Last Admin: 08/13/18 09:05 Dose: 20 mg Hydromorphone HCl (Dilaudid) 0.5 mg IVP Q4H PRN PRN Reason: Pain, moderate (4-7) Last Admin: 08/13/18 02:00 Dose: 0.5 mg Dextrose (Dextrose 5% In Water 1000 Ml) 1,000 mls @ 0 mls/hr IV .Q0M PRN; Protocol PRN Reason: Hypoglycemia Protocol Meropenem (Merrem Iv 1 Gm Premix) 1 gm in 50 mls @ 100 mls/hr IVPB Q12 KD; Protocol Stop: 08/20/18 10:01 Last Admin: 08/13/18 21:18 Dose: 100 mls/hr Daptomycin 390 mg/ Sodium (Chloride) 100 mls @ 200 mls/hr IV Q24H KD Stop: 08/20/18 11:46 Last Admin: 08/13/18 13:30 Dose: 200 mls/hr Phenytoin 100 mg/ Sodium (Chloride) 52 mls @ 104 mls/hr IVPB Q8 KD Last Admin: 08/14/18 06:28 Dose: 104 mls/hr Sodium Chloride (Sodium Chloride 0.9%) 1,000 mls @ 50 mls/hr IV .Q20H KD Last Admin: 08/13/18 21:32 Dose: 50 mls/hr Insulin Human Lispro (Humalog Low) 0 units SC ACHS KD; Protocol Last Admin: 08/13/18 21:41 Dose: Not Given Levalbuterol HCl (Xopenex) 1.25 mg IH [id number] KD Last Admin: 08/14/18 01:27 Dose: 1.25 mg Lidocaine (Lidoderm) 1 ea TD DAILY KD Last Admin: 08/13/18 09:06 Dose: 1 ea Methylprednisolone (Solu-Medrol) 40 mg IVP DAILY KD Last Admin: 08/13/18 17:13 Dose: 40 mg Metoprolol Tartrate (Lopressor) 50 mg PO BRKDIN [facility] Last Admin: 08/11/18 08:38 Dose: Not Given Metoprolol Tartrate (Lopressor) 5 mg IVP Q6H KD Last Admin: 08/14/18 04:28 Dose: 5 mg Thiamine HCl (Vitamin B1 Inj) 100 mg IV DAILY KD Last Admin: 08/13/18 09:05 Dose: 100 mg Verapamil HCl (Verapamil Inj) 2.5 mg IVP Q6H PRN PRN Reason: for heart ratye >120 - Labs Labs: 08/14/18 07:00 08/14/18 07:00 PT 14.5 SECONDS (9.4-12.5) H 08/11/18 12:50 INR 1.26 08/11/18 12:50 APTT 33.2 Seconds (25.1-36.5) 08/11/18 12:50 - Constitutional Appears: Non-toxic, No Acute Distress, Cachectic, Chronically Ill - Head Exam Head Exam: NORMAL INSPECTION - Eye Exam Eye Exam: Normal appearance - ENT Exam ENT Exam: Mucous Membranes Moist - Respiratory Exam Respiratory Exam: Clear to Ausculation Bilateral, NORMAL BREATHING PATTERN - Cardiovascular Exam Cardiovascular Exam: REGULAR RHYTHM, +S1, +S2 - GI/Abdominal Exam GI & Abdominal Exam: Soft, Normal Bowel Sounds - Neurological Exam Neurological Exam: Alert, Awake - Psychiatric Exam Psychiatric exam: Normal Affect - Skin Skin Exam: Normal Color, Warm Assessment and Plan - Assessment and Plan (Free Text) Assessment: 82 year old male with past medical history of rectal cancer s/p total colectomy, zenker's diverticulum, thrombocytopenia, aortic stent placement for AAA, seizure disorder, hypertension, hyperlipidemia, thrombocytopenia, atrial fibrillation on eliquis s/p surgery on 07/30 for polyp removal with parastomal hernia repair, s/p ex-lap ileocolic resect s/p perforation, admitted to MICU with renal failure and lung collapse 2/2 mucus plugging, s/p bronchoscopy x 2, with subsequent resolution of lung collapse, and significant improvement in aeration of CXR. Labs, imaging, chart reviewed CXR with significant improvement in aeration of L lung Renal, ID, Pulm following. Now with VRE on cultures, wound Lung Collapse, RESOLVED Afib COPD Hx Smoking Rectal Ca s/p total colectomy Chronic Thrombocytopenia Mucus plugging s/p bronchoscopy X2 Pleural effusion Renal failure, resolving VRE Recommend: - cont with supp o2 as needed, goal sat 90%, duonebs PRN, IS - Solumedrol taper, 20mg IV Q12hr - aggressive chest PT - follow up cultures, UCx, BCx, Procal - Abx as per ID, Daptomycin - Follow up renal - I/Os - FS control - clear liquid diet as per surgery - follow up surgery - GI ppx - DVT ppx - Monitor in MICU
--- NOTE | 2018-08-14 08:57 | CP.PCM.PCO ---
Physician Communication Note - Physician Communication Note Physician Communication Note: Improved p 1UPRBC/On Daptomycin IV for VRE
[2018-08-14] MEDS: Budesonide 0.5 mg/2 ml Inhal Susp UD IH SCH ×2 (09:02→20:00)
[2018-08-14] MEDS: Insulin Lispro (humaLOG) LOW Coverage SC SCH ×4 (09:38→17:25)
[2018-08-14] MEDS ORDERED: Sodium Chloride 0.45% 1,000 ML IV SCH (10:00)
--- NOTE | 2018-08-14 10:45 | PN ---
DATE: 08/14/2018 SUBJECTIVE: The patient is in bed in no acute distress, nontoxic. PHYSICAL EXAMINATION: VITAL SIGNS: Temperature is 97, blood pressure is 140/70, respiratory rate of 21, heart rate of 102. HEENT: Examination of HEENT is unremarkable. NECK: Supple. LUNGS: Have decreased breath sounds. HEART: Normal S1, S2. ABDOMEN: Soft, nontender. LABORATORY EXAMINATION: Reveals a white count is 9.3, hemoglobin of 10 and the chemistries reveals a BUN of 59, creatinine of 0.9. Urinalysis is noted and serology is noted. Microbiology reveals a VRE in the intra-abdominal cultures and review of medications reveals the patient to be on daptomycin and meropenem. The patient is also on Solu-Medrol. ASSESSMENT AND PLAN: An 82-year-old male seen earlier this morning with severe sepsis, healthcare-associated pneumonia, acute kidney injury, respiratory failure, intubated on a ventilator. The patient eventually was extubated, had bronchoscopy by Dr. Blevins and had mucus plugging and it was felt the patient later on had a perforated bowel, was taken to the OR, had exploratory laparotomy, perforated ileum and postoperative diagnosis by Dr. Du. Today is post procedure day #6. OR cultures from the abdomen are growing vancomycin-resistant enterococci and currently on day #2 of daptomycin and day #4 of meropenem, would complete a short course of antibiotics. Jason Garvin MD
[2018-08-14] MEDS: Lidocaine 5% Patch TD SCH (11:05)
[2018-08-14] MEDS: Meropenem IV 1 gm in NS 1 GM/50 ML BAG IVPB SCH ×2 (11:06→22:13)
[2018-08-14] MEDS: MethylPREDNISolone 40 mg Vial IVP SCH (11:07)
[2018-08-14] MEDS: Thiamine 100 mg/ml Inj IV SCH (11:08)
[2018-08-14] MEDS: Enoxaparin 30 mg Syringe SC SCH (11:10)
--- NOTE | 2018-08-14 11:53 | PN ---
DATE: 08/14/2018 SUBJECTIVE: The patient was seen and examined in Intensive Care Unit. He appears to be comfortable. He is extubated and breathing 22 on nasal cannula. PHYSICAL EXAMINATION: VITAL SIGNS: His vital signs are as follows: Temperature is 97.6, pulse 97, respirations 22, blood pressure 140/72. His intake and output is -360 mL. HEENT: Head: Normocephalic and atraumatic. NECK: Supple with no jugular vein distention. CARDIOVASCULAR: S1, S2. No S3, regular. PULMONARY: Markedly diminished breath sounds, left side with a few rhonchi. No wheezing. GASTROINTESTINAL: Soft. Incision and drainage is noted. Noted bowel sounds are diminished. EXTREMITIES: No pedal edema, no cyanosis. SKIN: No acute skin rash. NEUROLOGIC: Limited to present time. LABORATORY DATA: His today's arterial blood gas shows pH of 7.42, pCO2 of 44 and pO2 88 which is good. His blood work reveals serum sodium 149, BUN of 59 and chloride of 114. He may be mildly dehydrated. His serum albumin is only 2.3. WBC is 9.3 and hemoglobin of 10.7. ASSESSMENT: 1. Atelectasis. 2. Mucous plugging. 3. Status post recurrent respiratory failure. 4. Status post blepharotomy. PLAN: The patient appears comfortable after extubation, he is not in respiratory distress, however, still has ineffective cough. I discussed the situation with ICU team. The patient has to be encouraged to cough and nasal tracheal suctioning should be done to keep ahead of recurrent mucous plugging and atelectasis. We will continue his current interventions as described above and discuss with ICU team. Krystian Obrien MD [place]
[2018-08-14] MEDS: Phenytoin 100 mg/4 ml Oral Susp UD PO SCH ×2 (13:27→22:13)
[2018-08-14] MEDS: HYDROmorphone 0.5 mg/0.5 ml ISec IVP PRN ×2 (15:19→22:12)
--- NOTE | 2018-08-14 15:31 | OP ---
PROCEDURE DATE: 08/11/2018 He is admitted on 07/30/2018. He is in room 129, bed 2, ICU. He is operated on 08/11/2018. SURGEON: Rocael Du MD ROUTE RIDER: Prosper Degroot DO, PGY-3. TRANSITION ASSISTANT: Dr. Fong PREOPERATIVE DIAGNOSES: 1. Perforated viscus. 2. Chronic obstructive pulmonary disease. 3. Idiopathic thrombocytopenic purpura. 4. Status post gastrointestinal bleed - cecal villous adenoma. POSTOPERATIVE DIAGNOSES: Perforated terminal ileum (not anastomotic). PROCEDURE: 1. Exploratory laparotomy 2. Lysis of adhesions. 3. Resection of the terminal ileum and colon with primary anastomosis. OPERATIVE INDICATION: The patient is an 82-year-old male who originally entered in the hospital with a GI bleed and was found to have a large tumor in his cecum with multiple other adenomatous polyps in the ascending colon and these were removed on the date of this admission 07/30/2018. He had a complicated recovery with three times obstructing his left mainstem bronchus and remained in the intensive care unit having been bronchoscope'd twice and aggressively treated with respiratory therapies and steroids as well as postoperative management. On the evening before Mr. Hale's emergent operation, his white count suddenly jumped to 30,000. He remained comfortable and a CAT scan demonstrated new onset of free air in the peritoneal cavity. This was originally thought to be perforated gastroduodenal ulceration and nasogastric tube was inserted and the patient remained comfortable while efforts were made to obtain two 10 packs of platelets to correct his ITP before the surgery. Extensive discussion was held with the patient explaining the problem encountered and the anticipated risks, benefits and the alternatives and their anticipated outcomes were fully explained and he signs the informed consent. OPERATIVE NOTE: After receiving 10 units of platelets, the patient is brought to the operating room from the Intensive Care Unit identified by his wristband and undergoes time-out procedure and then he was placed on the operative table in a supine manner. Following the induction of general anesthesia and the insertion of an endotracheal tube, sequential compression devices were placed on his lower extremities and the patient is aseptically draped after preparation with Betadine and Vi-Drape adhesive. A midline incision is made from the epigastrium down past the umbilicus and sharp dissection was carried down through the subcutaneous tissues into the peritoneal cavity and adhesions were sharply lysed. Attention was drawn immediately to the gastroduodenal region which is markedly inflamed, filled with a murky, non-malodorous fluid which is cultured aerobically and anaerobically at this point and adhesions are carefully lysed down to the duodenum and completely encompassing the entire gastroduodenal region and failed to demonstrate perforation at this point. Attention was now drawn to the rectosigmoid, which is still intact after his abdominoperineal resection and despite the presence of multiple diverticuli, no perforation was noted at this point. Peritoneal fluid is cultured freely at this point and submitted separately to Pathology. The previous transverse incision in the right abdomen is now opened giving further exposure to the anastomotic area that was performed on admission and after carefully lysing adhesions and bringing the small bowel (ileum) up into the incision and releasing them from the retroperitoneum where they were frozen to. A small 3-mm perforation was seen in the terminal ileum on the lateral aspect and appears to be an immediate juxtaposition with the drain. The drain was not placed in the adjoining position but with the repositioning of the bowel after previous surgery, the terminal ileum apparently was rubbing against the drain and the patient was on moderate-dosed steroid as well as being chronically ill and apparently on the evening before his emergent surgery, he perforated the terminal ileum. A fibrinous inflammatory exudate is seen on approximate 8 or 9 inches of terminal ileum and it is elected at this point to resect the terminal ileum and the ileocolic anastomosis with BARBARA staplers. The intervening meso of the appendix was ligated with the LigaSure device and hemostasis is confirmed. The specimen is now submitted to Pathology in formalin. The terminal ileum and the transverse colon are anastomosed in a [id number] manner using a BARBARA stapler, closing the stapler defects with TA-60 stapler. The mesenteric defect between these two bowel segments is approximated with 2-0 running locking chromic catgut suture. The abdomen is now lavaged with multi liters of Clorpactin solution, allowed to set and then become aspirated completely. A new Fabian drain is inserted through the same incision and secured to the skin with 2-0 Surgidac polyester suture and placed in the right gutter away from any bowel that is present. The abdomen is now closed with interrupted [id number] #1 Prolene Smead-Salazar interrupted sutures from the midline and from the lateral aspect. Once this is completely performed, the fascia and then skin are infiltrated with the bupivacaine - Exparel combination for postoperative analgesic purposes. The skin is now closed with the AutoSuture skin stapler once the subcutaneous space was lavaged and hemostasis is confirmed. A dry dressing is applied. The patient is left intubated and is transferred from the operating room to the Intensive Care Unit postoperatively, still on the respirator. The patient's stormy and very chaotic postoperative course on 07/30/2018 prompted his careful intubation and fluid management at this time. Of note is the fact that the platelet transfusion given preoperatively and at the beginning of the operative procedure along with SCIP antibiotics is extremely helpful in reducing the amount of bleeding. The patient's bladder was noted to be distended during the procedure and it was found that he had an external condom catheter and this was changed with a 16-Azeri Mcintosh catheter to prevent any urine infection and to obtain a careful intake and output due to his congestive failure and need for strict input and output management. Estimated blood loss during this procedure was less than 200 mL of blood. Sponge, instrument and suture count were verified as correct at the end of the procedure. This dictation will be electronically signed without being read. The animal assistant was present throughout the procedure from beginning to end and was exceedingly helpful in the management of the dissection and the anastomosis for this procedure. Rocael Du MD
--- NOTE | 2018-08-14 17:59 | PN ---
DATE: 08/14/2018 REASON FOR CONSULTATION AND FOLLOWUP: History of chronic atrial fibrillation status post right hemicolectomy, status post perforation while status post exploratory laparotomy and repair and resection of the bowel, multiple times collapse of the lung status post bronch, off anticoagulation. SUBJECTIVE: The patient denies any chest pain, started clear liquid this morning. OBJECTIVE: GENERAL: Not in apparent distress, eating ice cream. VITAL SIGNS: Temperature afebrile, heart rate 97, blood pressure 140/72. HEENT: PERRLA. Extraocular muscles intact. NECK: Supple. No carotid bruits or thyromegaly. CHEST: Clear to auscultation. HEART: S1, S2 regular. ABDOMEN: Soft. EXTREMITIES: Clubbing and cyanosis negative. LABORATORY DATA: Blood workup as follows. WBC 9.8, hemoglobin , hematocrit 34.1, and platelet count 69. Chemistry shows sodium 140, potassium 3.8, chloride 114, carbon dioxide of 31, anion gap of 8, BUN 15, creatinine 0.9. Total protein 4.2 and albumin 2.3. IMPRESSION: An 82-year-old male with past medical history significant for chronic atrial fibrillation, history of colostomy in the past, found to be mass in the colon status post right hemicolectomy. Postop course complicated by multiple times of collapse status post multiple times bronchoscopy further complicated by perforation of the viscus status post exploratory laparotomy and dissection of the bowel. Now the patient is successfully extubated because of very vikram course and multiple time intubation and bronchoscopy, collapse of the lung and revisit to the OR, anticoagulation is on hold. I started the patient on clear liquid, severe protein-calorie malnutrition that was not present on admission. RECOMMENDATIONS: We will start low dose of Cardizem at blood pressure heart rate is tolerated. Start low dose of DVT prophylaxis. Monitor H and H. Monitor drain. Increasing nutrition support as tolerated. The patient is on clonidine patch for blood pressure. We will follow with you. We will start low dose of Lopressor 25 b.i.d. with holding parameters and Cardizem 30 mg every 6 hours with holding parameters. Supplement electrolytes as needed. We will give one K-rider. Thank you, Dr. Du, for providing us the opportunity in taking care of the patient, Roshan Hale. Gladis Greenfield MD
[2018-08-15] MEDS: Acetylcysteine 20% Inhal Soln (4ml) IH SCH ×4 (01:19→20:08)
[2018-08-15] MEDS: Insulin Lispro (humaLOG) LOW Coverage SC SCH ×5 (01:23→22:37)
[2018-08-15] MEDS: HYDROmorphone 0.5 mg/0.5 ml ISec IVP PRN ×4 (01:24→22:55)
[2018-08-15] MEDS: Levalbuterol 1.25 MG/3 ML Inhal Soln UD IH SCH ×4 (01:24→20:10)
[2018-08-15] MEDS: Budesonide 0.5 mg/2 ml Inhal Susp UD IH SCH ×3 (01:24→20:09)
[2018-08-15] MEDS: Metoprolol 1 mg/ml Inj IVP SCH ×5 (01:27→21:11)
[2018-08-15] MEDS: Phenytoin 100 mg/4 ml Oral Susp UD PO SCH ×3 (06:22→21:10)
[2018-08-15 06:26] LABS: B-TYPE NATRIURETIC PEPTIDE 14600 pg/mL (0-450); EOS % 0.3 % (1.5-5.0); GRAN # 6.94 (1.4-6.5); GRAN % 92.2 % (50.0-68.0); HEMOGLOBIN 10.9 g/dL (14.0-18.0); LYMPH # 0.2 (1.2-3.4); LYMPH % 3.1 % (22.0-35.0); MEAN CORPUSCULAR HEMOGLOBIN 29.6 pg (25.0-35.0); MEAN CORPUSCULAR HGB CONC 30.5 g/dl (31.0-37.0); MEAN PLATELET VOLUME 9.4 fl (7.0-11.0); MONO # 0.3 (0.1-0.6); MONO % 4.4 % (1.0-6.0); RBC 3.68 10^6/uL (3.5-6.1); RED CELL DISTRIBUTION WIDTH 16.1 % (11.5-14.5); WHITE BLOOD COUNT 7.5 10^3/uL (4.5-11.0)
[2018-08-15 06:30] LABS: ALB/GLOB RATIO 1.2 (1.1-1.8); ALBUMIN 2.2 g/dL (3.0-4.8); ALT/SGPT 52 U/L (7-56); AST/SGOT 37 U/L (17-59); BLOOD UREA NITROGEN 52 mg/dL (7-21); GFR NON-AFRICAN AMERICAN > 60
--- NOTE | 2018-08-15 09:15 | PN ---
DATE: 08/15/2018 PULMONARY PROGRESS NOTE SUBJECTIVE: The patient was seen and examined at bedside. He is currently receiving nebulizer treatment with added Mucomyst and he is on multiple antibiotic including meropenem and daptomycin. He is on a low-dose prednisone, which should be decreased. PHYSICAL EXAMINATION: VITAL SIGNS: His temperature is 98, pulse 93, respirations 24, pulse oximetry is 99 on nasal cannula. HEENT: Head, ears, nose and throat are within normal limits. NECK: Supple with no jugular vein distentions. CHEST: Symmetrical. Breath sounds actually equal, left and right. CARDIOVASCULAR: S1, S2. No S3. No murmurs. GASTROINTESTINAL: Soft. Bowel sounds are diminished. Surgical incision noted. EXTREMITIES: No pedal edema. SKIN: Clear with no cyanosis and no skin rashes. NEUROLOGIC: No focal deficits. LABORATORY DATA: I reviewed today's blood work. His serum sodium is 146, potassium 4, chloride 112. His proBNP is 14,600. Serum albumin is 2.2. WBC 7.5, hemoglobin of 10.9. ASSESSMENT: 1. Status post recurrent respiratory failure. 2. Atelectasis. 3. Mucus plugging. 4. Status post laparotomy. PLAN: The patient continues to improve. He is tolerating nebulizer treatments with added budesonide. I just reviewed his chest x-ray. The lung is expanded. There are small bilateral pleural effusions present. Given the elevated BNP, further evaluation for possible mild congestive heart failure is in order. Steroids can be reduced rapidly. We will follow closely in ICU. Krystian Obrien MD
--- NOTE | 2018-08-15 09:20 | RAD ---
Date of service: 08/15/2018 HISTORY: f/u COMPARISON: 08/14/2018 FINDINGS: LUNGS: Probable atelectasis at left lung base obscuring the diaphragm PLEURA: No significant pleural effusion identified, no pneumothorax apparent. CARDIOVASCULAR: Aortic calcification and tortuosity Moderate cardiomegaly no pulmonary vascular congestion. OSSEOUS STRUCTURES: No significant abnormalities. VISUALIZED UPPER ABDOMEN: Normal. OTHER FINDINGS: None. IMPRESSION: No significant change
--- NOTE | 2018-08-15 10:15 | CP.PCM.PN ---
Subjective - Date & Time of Evaluation Date of Evaluation: 08/15/18 Time of Evaluation: 08:00 - Subjective Subjective: Patient seen and examined, reports no major complaints, having breakfast. Objective - Vital Signs/Intake and Output Vital Signs (last 24 hours): Temp Pulse Resp BP Pulse Ox 97.9 F 93 H 26 H 132/85 99 08/15/18 08:00 08/15/18 07:08 08/15/18 07:08 08/15/18 07:08 08/15/18 07:00 - Medications Medications: Current Medications Acetylcysteine (Acetylcysteine 20%) 4 ml IH [id number] [facility] Last Admin: 08/15/18 07:33 Dose: 4 ml Apixaban (Eliquis) 2.5 mg PO BID [facility] Last Admin: 08/09/18 10:14 Dose: Not Given Budesonide (Pulmicort Respules) 0.5 mg IH [id number] [facility] Last Admin: 08/15/18 07:34 Dose: 0.5 mg Clonidine HCl (Catapres Tts1 0.1 Mg/24 Hr) 1 patch TD Q7D@1000 [facility] Last Admin: 08/13/18 09:12 Dose: 1 patch Dextrose (Dextrose 50% Inj) 0 ml IV STAT PRN; Protocol PRN Reason: Hypoglycemia Protocol Diltiazem HCl (Cardizem Cd) 360 mg PO DAILY [facility] Last Admin: 08/11/18 11:54 Dose: Not Given Diltiazem HCl (Cardizem) 30 mg PO QID [facility] Last Admin: 08/14/18 22:06 Dose: 30 mg Enoxaparin Sodium (Lovenox) 60 mg SC Q12H [facility]; Protocol Last Admin: 08/10/18 19:29 Dose: Not Given Enoxaparin Sodium (Lovenox) 30 mg SC DAILY [facility]; Protocol Last Admin: 08/14/18 11:10 Dose: 30 mg Famotidine (Pepcid) 20 mg IVP DAILY [facility] Last Admin: 08/14/18 11:09 Dose: 20 mg Hydromorphone HCl (Dilaudid) 0.5 mg IVP Q4H PRN PRN Reason: Pain, moderate (4-7) Last Admin: 08/15/18 06:20 Dose: 0.5 mg Dextrose (Dextrose 5% In Water 1000 Ml) 1,000 mls @ 0 mls/hr IV .Q0M PRN; Protocol PRN Reason: Hypoglycemia Protocol Meropenem (Merrem Iv 1 Gm Premix) 1 gm in 50 mls @ 100 mls/hr IVPB Q12 [facility]; Protocol Stop: 08/20/18 10:01 Last Admin: 08/14/18 22:13 Dose: 100 mls/hr Daptomycin 390 mg/ Sodium (Chloride) 100 mls @ 200 mls/hr IV Q24H [facility] Stop: 08/20/18 11:46 Last Admin: 08/14/18 11:05 Dose: 200 mls/hr Insulin Human Lispro (Humalog Low) 0 units SC ACHS [facility]; Protocol Last Admin: 08/15/18 07:47 Dose: Not Given Levalbuterol HCl (Xopenex) 1.25 mg IH [id number] [facility] Last Admin: 08/15/18 07:33 Dose: 1.25 mg Lidocaine (Lidoderm) 1 ea TD DAILY [facility] Last Admin: 08/14/18 11:05 Dose: 1 ea Methylprednisolone (Solu-Medrol) 20 mg IV Q12H [facility] Metoprolol Tartrate (Lopressor) 5 mg IVP Q6H [facility] Last Admin: 08/15/18 01:27 EDT Dose: Not Given Metoprolol Tartrate (Lopressor) 25 mg PO BID [facility] Last Admin: 08/14/18 17:24 Dose: 25 mg Metoprolol Tartrate (Lopressor) 25 mg PO BID [facility] Phenytoin (Dilantin) 100 mg PO Q8 [facility] Last Admin: 08/15/18 06:22 Dose: 100 mg Thiamine HCl (Vitamin B1 Inj) 100 mg IV DAILY [facility] Last Admin: 08/14/18 11:08 Dose: 100 mg Verapamil HCl (Verapamil Inj) 2.5 mg IVP Q6H PRN PRN Reason: for heart ratye >120 - Labs Labs: 08/15/18 05:45 08/15/18 05:45 PT 14.5 SECONDS (9.4-12.5) H 08/11/18 12:50 INR 1.26 08/11/18 12:50 APTT 33.2 Seconds (25.1-36.5) 08/11/18 12:50 - Constitutional Appears: Non-toxic, No Acute Distress, Cachectic, Chronically Ill - Head Exam Head Exam: NORMAL INSPECTION - Eye Exam Eye Exam: Normal appearance - ENT Exam ENT Exam: Mucous Membranes Moist - Respiratory Exam Respiratory Exam: Clear to Ausculation Bilateral, NORMAL BREATHING PATTERN - Cardiovascular Exam Cardiovascular Exam: REGULAR RHYTHM, +S1, +S2 - GI/Abdominal Exam GI & Abdominal Exam: Soft, Normal Bowel Sounds Additional comments: +drain - Extremities Exam Extremities Exam: Normal Inspection - Neurological Exam Neurological Exam: Alert, Awake, Oriented x3 - Psychiatric Exam Psychiatric exam: Normal Affect - Skin Skin Exam: Normal Color, Warm Assessment and Plan - Assessment and Plan (Free Text) Assessment: 82 year old male with past medical history of rectal cancer s/p total colectomy, zenker's diverticulum, thrombocytopenia, aortic stent placement for AAA, seizure disorder, hypertension, hyperlipidemia, thrombocytopenia, atrial fibrillation on eliquis s/p surgery on 07/30 for polyp removal with parastomal hernia repair, s/p ex-lap ileocolic resect s/p perforation, admitted to MICU with renal failure and lung collapse 2/2 mucus plugging, s/p bronchoscopy x 2, with subsequent resolution of lung collapse, and significant improvement in aeration of CXR. Labs, imaging, chart reviewed CXR with significant improvement in aeration of L lung Renal, ID, Pulm following. Now with VRE on cultures, wound Renal function stable Lung Collapse, RESOLVED Afib on A/C COPD Hx Smoking Rectal Ca s/p total colectomy Chronic Thrombocytopenia Mucus plugging s/p bronchoscopy X2 Pleural effusion Renal failure, resolving VRE Recommend: - cont with supp o2 as needed, goal sat 90%, duonebs PRN, IS - taper Solumedrol to Prednisone 40mg daily PO - aggressive chest PT - follow up cultures, UCx, BCx, Procal - Abx as per ID, Daptomycin - Follow up renal - I/Os - FS control - clear liquid diet as per surgery - follow up surgery - GI ppx - DVT ppx - Monitor in MICU
[2018-08-15] MEDS: Meropenem IV 1 gm in NS 1 GM/50 ML BAG IVPB SCH ×2 (10:25→21:08)
--- NOTE | 2018-08-15 10:25 | PN ---
DATE: 08/15/2018 REASON FOR THE CONSULTATION AND FOLLOWUP: History of chronic atrial fibrillation, status post right hemicolectomy, status post perforation of hollow viscus, status post exploratory laparotomy and repair, resection of the bowel, multiple times collapse of the right lung, off anticoagulation. SUBJECTIVE: The patient denies any chest pain, shortness of breath. Started clear liquid. Started DVT prophylaxis yesterday. OBJECTIVE: GENERAL: Not in any apparent distress and still in the ICU 129, bed 2. VITAL SIGNS: Temperature afebrile, heart rate 93, blood pressure 132/85. HEENT: PERRLA. Extraocular muscles intact. NECK: Supple. No carotid bruit. No thyromegaly. CHEST: Clear to auscultation. HEART: S1 and S2 regular. ABDOMEN: Soft. EXTREMITIES: Clubbing and cyanosis negative. LABORATORY DATA: Chest x-ray shows good air entry and small volume loss of left side, but good air entry on the right side and good expansion, may be the blunting of the costophrenic angle of the right. Blood workup: WBC 7.5, hemoglobin 10.9, hematocrit 35.7, platelet count 64. Chemistry shows sodium 140, potassium 4, chloride 112, carbon dioxide 32, anion gap of 6, BUN 52, creatinine 0.8. BNP 14,600. IMPRESSION: An 82-year-old male with past medical history significant for chronic atrial fibrillation, history of colostomy in the past, history of cecal villous adenoma, status post right hemicolectomy, course complicated by multiple times collapse of the lung requiring intubation and bronch, further complicated by perforation of the hollow viscus requiring reexploratory laparotomy and end-to-end anastomosis after resection of the perforated bowel, is now extubated, on clear liquid. The patient has history of chronic atrial fibrillation, was at one point on anticoagulation, but is on hold because of recurrent respiratory insufficiency, bronch and collapse and OR visit. Now started yesterday deep venous thrombosis prophylaxis. The patient is started on clear liquid, started p.o. medication including Cardizem, clonidine and Eliquis on hold as mentioned. We will change metoprolol 25 p.o. b.i.d. and we will discontinue IV fluid and monitor H and H if remains stable and surgical point of view, the patient is stable, then we can consider restarting Eliquis in a day or two. We will follow. We will discontinue IV fluid. We will give 20 of IV Lasix. Increase nutritional support. Increase diet progressively as tolerating. Repeat the lab in the morning. Thank you, Dr. Du for providing us the opportunity in taking care of Roshan Hale. Gladis Greenfield MDDD: 08/15/2018 9:09:49
[2018-08-15] MEDS: MethylPREDNISolone 40 mg Vial IV SCH ×2 (10:26→21:13)
[2018-08-15] MEDS: Thiamine 100 mg/ml Inj IV SCH (10:27)
[2018-08-15] MEDS: Enoxaparin 30 mg Syringe SC SCH (10:27)
[2018-08-15] MEDS: Lidocaine 5% Patch TD SCH (10:28)
[2018-08-15] MEDS: Micafungin 100 MG in Sodium Chloride 0.9% 100 ML IV SCH (13:33)
--- NOTE | 2018-08-15 15:27 | CP.PCM.PN ---
Subjective - Date & Time of Evaluation Date of Evaluation: 08/15/18 Time of Evaluation: 06:30 - Subjective Subjective: Patient seen and examined. Denies chest pain/ shortness of breath. Tolerating liquid diet. RUSSELL drain output 1030/24hrs, serous. Objective - Vital Signs/Intake and Output Vital Signs (last 24 hours): Temp Pulse Resp BP Pulse Ox 97.8 F 106 H 26 H 166/57 H 99 08/15/18 12:00 08/15/18 13:35 08/15/18 07:08 08/15/18 13:35 08/15/18 07:00 - Medications Medications: Current Medications Acetylcysteine (Acetylcysteine 20%) 4 ml IH [id number] [facility] Last Admin: 08/15/18 13:52 Dose: 4 ml Apixaban (Eliquis) 2.5 mg PO BID [facility] Last Admin: 08/09/18 10:14 Dose: Not Given Budesonide (Pulmicort Respules) 0.5 mg IH [id number] [facility] Last Admin: 08/15/18 07:34 Dose: 0.5 mg Clonidine HCl (Catapres Tts1 0.1 Mg/24 Hr) 1 patch TD Q7D@1000 [facility] Last Admin: 08/13/18 09:12 Dose: 1 patch Dextrose (Dextrose 50% Inj) 0 ml IV STAT PRN; Protocol PRN Reason: Hypoglycemia Protocol Diltiazem HCl (Cardizem Cd) 360 mg PO DAILY [facility] Last Admin: 08/11/18 11:54 Dose: Not Given Diltiazem HCl (Cardizem) 30 mg PO QID [facility] Last Admin: 08/15/18 13:35 Dose: 30 mg Enoxaparin Sodium (Lovenox) 60 mg SC Q12H [facility]; Protocol Last Admin: 08/10/18 19:29 Dose: Not Given Enoxaparin Sodium (Lovenox) 30 mg SC DAILY [facility]; Protocol Last Admin: 08/15/18 10:27 Dose: 30 mg Famotidine (Pepcid) 20 mg IVP DAILY [facility] Last Admin: 08/15/18 10:26 Dose: 20 mg Hydromorphone HCl (Dilaudid) 0.5 mg IVP Q4H PRN PRN Reason: Pain, moderate (4-7) Last Admin: 08/15/18 13:33 Dose: 0.5 mg Dextrose (Dextrose 5% In Water 1000 Ml) 1,000 mls @ 0 mls/hr IV .Q0M PRN; Protocol PRN Reason: Hypoglycemia Protocol Meropenem (Merrem Iv 1 Gm Premix) 1 gm in 50 mls @ 100 mls/hr IVPB Q12 [facility]; Protocol Stop: 08/20/18 10:01 Last Admin: 08/15/18 10:25 Dose: 100 mls/hr Daptomycin 390 mg/ Sodium (Chloride) 100 mls @ 200 mls/hr IV Q24H [facility] Stop: 08/20/18 11:46 Last Admin: 08/15/18 10:45 Dose: 200 mls/hr Micafungin Sodium 100 mg/ (Sodium Chloride) 100 mls @ 100 mls/hr IV DAILY [facility]; Protocol Stop: 08/24/18 13:01 Last Admin: 08/15/18 13:33 Dose: 100 mls/hr Insulin Human Lispro (Humalog Low) 0 units SC ACHS [facility]; Protocol Last Admin: 08/15/18 11:20 Dose: 1 u Levalbuterol HCl (Xopenex) 1.25 mg IH [id number] [facility] Last Admin: 08/15/18 13:52 Dose: 1.25 mg Lidocaine (Lidoderm) 1 ea TD DAILY [facility] Last Admin: 08/15/18 10:28 Dose: 1 ea Methylprednisolone (Solu-Medrol) 20 mg IV Q12H [facility] Last Admin: 08/15/18 10:26 Dose: 20 mg Metoprolol Tartrate (Lopressor) 5 mg IVP Q6H [facility] Last Admin: 08/15/18 10:28 Dose: 5 mg Metoprolol Tartrate (Lopressor) 25 mg PO BID [facility] Last Admin: 08/15/18 10:39 Dose: 25 mg Metoprolol Tartrate (Lopressor) 25 mg PO BID [facility] Phenytoin (Dilantin) 100 mg PO Q8 [facility] Last Admin: 08/15/18 13:35 Dose: 100 mg Prednisone (Prednisone Tab) 40 mg PO DAILY [facility] Thiamine HCl (Vitamin B1 Inj) 100 mg IV DAILY [facility] Last Admin: 08/15/18 10:27 Dose: 100 mg Verapamil HCl (Verapamil Inj) 2.5 mg IVP Q6H PRN PRN Reason: for heart ratye >120 - Labs Labs: 08/15/18 05:45 08/15/18 05:45 PT 14.5 SECONDS (9.4-12.5) H 08/11/18 12:50 INR 1.26 08/11/18 12:50 APTT 33.2 Seconds (25.1-36.5) 08/11/18 12:50 - Constitutional Appears: No Acute Distress - Head Exam Head Exam: NORMOCEPHALIC - Eye Exam Eye Exam: Normal appearance Pupil Exam: NORMAL ACCOMODATION - ENT Exam ENT Exam: Mucous Membranes Moist - Respiratory Exam Respiratory Exam: NORMAL BREATHING PATTERN - Cardiovascular Exam Cardiovascular Exam: +S1, +S2. absent: Tachycardia - GI/Abdominal Exam GI & Abdominal Exam: Soft. absent: Distended, Firm, Guarding, Rebound - Neurological Exam Neurological Exam: Alert, Awake, Oriented x3 - Psychiatric Exam Psychiatric exam: Normal Mood - Skin Skin Exam: Dry, Intact, Warm Assessment and Plan - Assessment and Plan (Free Text) Assessment: 82 y/o male s/p ex lap for ileal perforation POD4 Plan: -C/w liquids -aggressive pulmonary toilet -encourage incentive spirometer -cont to monitor mayra output -cont abx per ID, + VRE on Dapto for coverage -further care per ICU -d/w Dr. Florian Aly PGY3
--- NOTE | 2018-08-15 17:06 | PN ---
DATE: 08/15/2018 SUBJECTIVE: The patient is in bed, in no acute distress, nontoxic. PHYSICAL EXAMINATION: Temperature is 97, blood pressure is 140/60, respiratory rate of 18, heart rate of 111. Examination of HEENT is unremarkable. Neck is supple. Lungs show decreased breath sounds. Heart exam, normal S1, S2. Abdominal examination is soft and nontender. LABORATORY EXAMINATION: White count of 7.5, hemoglobin of 10. BUN of 52, creatinine of 0.8. Urinalysis is noted. Serology is noted. Microbiology reveals VRE and now Reshma tropicalis from the OR cultures and abdominal fluid. OPERATIVE NOTE: As noted from the procedure that was done on 08/11/2018, the patient had exploratory lap, lysis of adhesions, and resection of the terminal ileum and colon with primary anastomosis. ASSESSMENT AND PLAN: This is an 82-year-old male who was seen earlier this morning, doing much better with severe sepsis, healthcare-associated pneumonia, acute kidney injury. The patient had respiratory failure, was intubated on a ventilator, was eventually extubated, had bronchoscopy by Dr. Blevins, and found to have mucus plugging. The patient was doing better, had developed a perforated bowel on CAT scan, was taken to the OR, had exploratory laparoscopy, and perforated ileum was the postoperative diagnosis. Today is postprocedure day #7, now with VRE from the OR and Reshma tropicalis. We will also add Mycamine. With these multiple cultures of VRE and Reshma tropicalis from the OR for perforation, we will empirically cover the patient with Mycamine. Currently on daptomycin, day #2. We will start Mycamine today at 100 mg IV daily. The patient is on meropenem day #5 and daptomycin day #3. The patient is actually appearing much improved. Should have Reshma tropicalis sensitivity done. Review of orders reveals daptomycin day #3 and meropenem day #5. We will add Mycamine today. Multiple cultures from the OR and the abdominal cultures are positive for Reshma tropicalis. The patient is also on prednisone. Jason Garvin MD
--- NOTE | 2018-08-15 19:38 | PN ---
DATE: 08/15/2018 SUBJECTIVE: The patient is an 82-year-old, seen and examined, lying in bed, seems to be comfortable and tolerating his liquid diet. Abdominal pain seems to be improving. No . No shortness of breath. No chest pain. PHYSICAL EXAMINATION: VITAL SIGNS: He is afebrile, pulse 106, respirations 18, and blood pressure 166/57. LUNGS: Bilaterally diffuse air entry and decreased breath sounds at bases. HEART: S1 and S2 audible, rate controlled. ABDOMEN: Soft. Colostomy is functional. RUSSELL tube in the right flank draining hemorrhagic fluid. LABORATORY DATA: WBC 7.5, hemoglobin 10.9, hematocrit 35.7, and platelets 64. Chemistries; sodium 146, potassium 4, chloride 112, CO2 of 32, BUN 52, creatinine 0.8, and blood sugar of 101. ASSESSMENT: 1. Status post revision of laparotomy and ileal resection with end-to-end anastomosis. 2. Status post right hemicolectomy. 3. Hypertension. 4. Chronic atrial fibrillation. 5. Seizure disorder. 6. Chronic obstructive pulmonary disease. PLAN: We will continue the patient on current medications. Monitor electrolyte and H and H. I spoke to the nurse. The patient will be sitting in the bed for few hours. We will monitor electrolytes. Tri Fleming MD
--- NOTE | 2018-08-15 21:44 | PN ---
DATE: 08/13/2018 CRITICAL CARE PROGRESS NOTE SUBJECTIVE: This 82-year-old male was examined in CCU, bed 2 on the afternoon of 08/13/2018. This case was reviewed with his critical care nurse and Dr. Rocael Du from Surgery. The patient remains weak and deconditioned. He is presently extubated. He is anxious to start p.o. food and fluids and is status post exploratory laparotomy for ruptured ileal perforation. PHYSICAL EXAMINATION: VITAL SIGNS: Temperature was 97.7, respirations 14, pulse 93 and blood pressure 133/51. HEENT: Head normocephalic, atraumatic. Eyes: No icterus. NECK: Supple. HEART: Irregular S1, S2. LUNGS: Occasional rhonchi. ABDOMEN: Soft. EXTREMITIES: No edema. SKIN: Without rash. NEUROLOGICAL: Deconditioned. VASCULAR: Legs warm to touch. PSYCHOLOGICAL: Periods of confusion, but alert. LABORATORY DATA: White count 9600, hemoglobin 9.2, hematocrit 30, platelets 85,000. Sodium 146, K 3.7, chloride 112, bicarb 30, BUN 68, creatinine 1.2, random blood sugar 112, phosphorous 4.2, magnesium 2.2, bilirubin 1.4, AST 32, ALT 49, alk phos 39. Wound cultures are showing VRE. IMPRESSION: An 82-year-old male status post right hemicolectomy and most recently exploratory laparotomy for perforation of his ileum, now with vancomycin-resistant Enterococcus in the wound site and comorbidities of acute renal failure, chronic atrial fibrillation, chronic hypertension, respiratory failure, seizure syndrome, type 2 diabetes mellitus, peptic ulcer disease with gastroesophageal reflux disease and chronic obstructive pulmonary disease. He will continue on Xopenex, tapering Solu-Medrol, Pulmicort inhalational therapy, Pepcid, insulin coverage, daptomycin dose reduced for renal insufficiency and Mucomyst inhalational therapy. He is scheduled for repeat labs, pulmonary toiletry and based on clinical progress, will have diet advanced and antibiotics adjusted. All of the above was reviewed with the patient and nursing. All questions were answered. Sara Ramirez MD MTD[facility]
--- NOTE | 2018-08-15 21:53 | PN ---
DATE: 08/14/2018 CRITICAL CARE PROGRESS NOTE SUBJECTIVE: This 82-year-old male remains in bed 2 in the CCU on 08/14/2018. He is receiving adjustment in antibiotics given recent wound culture is growing VRE and now Reshma tropicalis. The patient is receiving a renally dose adjusted daptomycin and micafungin under the direction of Infectious Disease. He remains in an atrial fibrillation rhythm on the electronic device monitor. PHYSICAL EXAMINATION: VITAL SIGNS: Temperature 98.7, respirations 16, pulse 92, blood pressure 137/51, pulse ox 96% on 2 L nasal O2. Physical exam is unchanged. LABORATORY DATA: White count 9300, hemoglobin 10.7, hematocrit 34.1, platelets 69,000. Sodium 149, K 3.8, chloride 114, bicarb 31, BUN 59, creatinine 0.9, random blood sugar 100. IMPRESSION: Improved acute renal failure, now with elevated BUN in the setting of IV steroid use for exacerbation of chronic obstructive pulmonary disease in a gentleman status post right hemicolectomy as well as perforated ileal repair with comorbidities of chronic obstructive pulmonary disease, atrial fibrillation, seizure syndrome, hypertension, peptic ulcer disease with gastroesophageal reflux disease, anemia of chronic disease and deconditioning. The patient will continue on medication including Xopenex, Solu-Medrol, prednisone taper, Pepcid, antibiotics including micafungin and daptomycin. He has been scheduled to receive subcu Lovenox, Lopressor, insulin coverage, Cardizem and Mucomyst inhalational therapy. Serial labs will be obtained. Disposition will be decided based on clinical progress. Sara Ramirez MD [place]
--- NOTE | 2018-08-15 21:58 | PN ---
DATE: 08/15/2018 NEPHROLOGY FOLLOWUP SUBJECTIVE: This 82-year-old male remains in bed 2 of the critical care unit at the [facility] on 08/15/2018. The patient is status post right hemicolectomy and exploratory laparotomy for perforated ileum. He is being advanced to liquid diet, which he is tolerating without incident. He denied fever, chills, chest pain or shortness of breath. There have been no reports of vomiting. PHYSICAL EXAMINATION: HEART: Irregular S1, S2. LUNGS: Occasional rhonchi. ABDOMEN: Soft. Colostomy functioning. RUSSELL tube draining clear hemorrhagic fluid. EXTREMITIES: No edema. LABORATORY DATA: Sodium 146, K 4, chloride 112, bicarb 32, BUN 52, creatinine 0.8, random blood sugar 107. White count 7500, hemoglobin 10.9, hematocrit 35.7, platelets 64,000. IMPRESSION: An 82-year-old male, status post surgery x2 for right hemicolectomy and perforated ileum with chronic obstructive pulmonary disease, chronic atrial fibrillation, chronic hypertension, seizure syndrome, type 2 diabetes mellitus. Wound culture showing vancomycin-resistant Enterococcus and Reshma. PLAN: Plan is to taper the patient off steroids. Continue Mucomyst inhalational therapy. He is being resumed on oral medication including Cardizem, Lopressor and we will continue on Pepcid and Pulmicort inhalational therapy with inhalational Mucomyst. He will have his diet advanced as tolerated and disposition will be decided based on clinical progress. Sara Ramirez MD
[2018-08-16] MEDS: Acetylcysteine 20% Inhal Soln (4ml) IH SCH ×4 (01:47→20:09)
[2018-08-16] MEDS: Levalbuterol 1.25 MG/3 ML Inhal Soln UD IH SCH ×5 (01:50→23:26)
[2018-08-16 07:01] LABS: ALB/GLOB RATIO 1.1 (1.1-1.8); ALBUMIN 2.2 g/dL (3.0-4.8); ALT/SGPT 50 U/L (7-56); AST/SGOT 35 U/L (17-59); BLOOD UREA NITROGEN 45 mg/dL (7-21); GFR NON-AFRICAN AMERICAN > 60
[2018-08-16 07:14] LABS: EOS % 0.1 % (1.5-5.0); GRAN # 8.58 (1.4-6.5); GRAN % 93.6 % (50.0-68.0); HEMOGLOBIN 11.7 g/dL (14.0-18.0); LYMPH # 0.2 (1.2-3.4); LYMPH % 2.2 % (22.0-35.0); MEAN CELL VOLUME 95.5 fl (80.0-105.0); MEAN CORPUSCULAR HGB CONC 30.3 g/dl (31.0-37.0); MEAN PLATELET VOLUME 10.5 fl (7.0-11.0); MONO # 0.4 (0.1-0.6); MONO % 4.1 % (1.0-6.0); RBC 4.04 10^6/uL (3.5-6.1); RED CELL DISTRIBUTION WIDTH 15.7 % (11.5-14.5); WHITE BLOOD COUNT 9.2 10^3/uL (4.5-11.0)
--- NOTE | 2018-08-16 07:27 | PN ---
DATE: 08/16/2018 SUBJECTIVE: The patient appears comfortable this morning. He is not short of breath at rest. PHYSICAL EXAMINATION: VITAL SIGNS: Temperature is 98.9, pulse 89, respirations 18/20, blood pressure 134/64. Oxygen saturation on nasal cannula is 98%. HEENT: Normocephalic, atraumatic. No JVD. CARDIOVASCULAR: Systolic ejection murmur at the lower left sternal border. Questionable S3 gallop. LUNGS: Decreased breath sounds at the bases. Minimal/less rhonchi. No wheezing. EXTREMITIES: Mild edema. No cyanosis, no clubbing. Calves are nontender to palpation. GI: Abdomen is postoperative. It is soft. It is less distended and less tender to palpation. SKIN: No acute rash. NEUROLOGIC: Limited at the present time. PERTINENT LABORATORY DATA: Chest x-ray was done this morning and reviewed. Again, this is a poor rotated film. There is no significant atelectasis noted at the left lung. There is less right lower lobe haziness. There are no significant effusions. Official results are pending. IMPRESSION: 1. Intra-abdominal perforation. 2. Status post right hemicolectomy. 3. Recurrent left lung atelectasis. 4. Chronic obstructive pulmonary disease. 5. Congestive heart failure. 6. Atrial fibrillation. 7. Anemia, thrombocytopenia. PLAN: The patient appears comfortable this morning. He is not short of breath at rest. He does state to feeling much, much better overall. I did discuss the case with the night nurse at length. The night nurse stated the patient had a very good night. I did review the chest x-ray from this morning. Findings are noted above. Again, the chest x-ray is significantly improved from a few weeks ago. On physical exam, there is certainly less bronchospasm noted. In addition, the alveolar-arterial gradient is also less. I will continue the current nebulizer treatments and low-dose steroids for now. Inputs by Infectious Disease and Cardiology are also noted. Clinical status of the patient is significantly improved - compared to last week. The overall status/prognosis for this patient does remain somewhat guarded. I will discuss the above with the entire ICU team in the next few moments. I will also discuss the above with the attending physician. Rosalio Blevins MD [facility] # [id number] [place]
[2018-08-16] MEDS: Metoprolol 1 mg/ml Inj IVP SCH (07:50)
[2018-08-16] MEDS: Phenytoin 100 mg/4 ml Oral Susp UD PO SCH ×3 (07:51→21:02)
[2018-08-16] MEDS: Budesonide 0.5 mg/2 ml Inhal Susp UD IH SCH ×3 (07:54→23:26)
--- NOTE | 2018-08-16 08:24 | CP.CCUPN ---
<Heather Adamson - Last Filed: 08/16/18 12:40> CCU Subjective - Physician Review Subjective (Free Text): CRITICAL CARE PROGRESS NOTE FOR DR. CAIN Adamson PGY1 Patient seen and examined at bedside this am. Pt eating breakfast, tolerating well, tolerating chest pt. No acute complaints this am. RUSSELL draining serosanguinous fluid and colostomy with brown stool. He denies 12 point ROS 0 CCU Objective - Vital Signs / Intake & Output Intake and Output (Last 8hrs): Intake & Output 08/15/18 08/16/18 08/16/18 22:59 06:59 14:59 Intake Total 1050 Output Total 1925 Balance -875 Intake: Oral 1050 Output: Drainage 975 Right Abdomen 425 colostomy 550 Urine 950 Urethral (Mcintosh) 950 - Physical Exam Head: Positive for: Atraumatic, Normocephalic Pupils: Positive for: PERRL Extroacular Muscles: Positive for: EOMI Conjunctiva: Positive for: Normal Mouth: Positive for: Moist Mucous Membranes Pharnyx: Positive for: Normal Neck: Positive for: Normal Range of Motion Respiratory/Chest: Positive for: Clear to Auscultation, Good Air Exchange. Negative for: Respiratory Distress Cardiovascular: Positive for: Other (irregularly irregular rhythm) Abdomen: Positive for: Normal Bowel Sounds, Other (Abdominal dressing in place. RUSSELL drain in place draining serosanguinous fluid. Colostomy bag in place). Negative for: Tenderness, Distention Genitourinary Male: Positive for: Prostate Tenderness Upper Extremity: Positive for: Normal Inspection Lower Extremity: Positive for: Normal Inspection. Negative for: Edema Neurological: Positive for: GCS=15, Speech Normal Skin: Positive for: Warm, Dry, Normal Color Psychiatric: Positive for: Alert, Oriented x 3, Normal Insight, Normal Concentration - Medications Active Medications: Active Medications Generic Name Dose Route Start Last Admin Trade Name Freq PRN Reason Stop Dose Admin Acetylcysteine 4 ml 08/12/18 13:00 08/16/18 07:54 Acetylcysteine 20% IH 4 ml [id number] KD Administration Apixaban 2.5 mg 08/04/18 18:00 08/09/18 10:14 Eliquis PO Not Given BID [facility] Budesonide 0.5 mg 08/13/18 08:00 08/16/18 07:54 Pulmicort Respules IH 0.5 mg [id number] KD Administration Clonidine HCl 1 patch 08/13/18 10:00 08/13/18 09:12 Catapres Tts1 0.1 Mg/24 Hr TD 1 patch Q7D@1000 KD Administration Dextrose 0 ml 08/01/18 23:07 Dextrose 50% Inj IV STAT PRN Hypoglycemia Protocol Protocol Diltiazem HCl 30 mg 08/14/18 14:00 08/15/18 21:10 Cardizem PO 30 mg QID KD Administration Enoxaparin Sodium 30 mg 08/14/18 10:00 08/15/18 10:27 Lovenox SC 30 mg DAILY KD Administration Protocol Famotidine 20 mg 08/12/18 22:13 08/15/18 10:26 Pepcid IVP 20 mg DAILY KD Administration Hydromorphone HCl 0.5 mg 08/11/18 00:08 08/15/18 22:55 Dilaudid IVP 0.5 mg Q4H PRN Administration Pain, moderate (4-7) Dextrose 1,000 mls @ 0 mls/hr 08/01/18 23:07 Dextrose 5% In Water 1000 Ml IV .Q0M PRN Hypoglycemia Protocol Protocol Per Protocol Meropenem 1 gm in 50 mls @ 100 mls/hr 08/11/18 10:00 08/15/18 21:08 Merrem Iv 1 Gm Premix IVPB 08/20/18 10:01 100 mls/hr Q12 KD Administration Protocol Daptomycin 390 mg/ Sodium 100 mls @ 200 mls/hr 08/13/18 11:45 08/15/18 10:45 Chloride IV 08/20/18 11:46 200 mls/hr Q24H KD Administration Micafungin Sodium 100 mg/ 100 mls @ 100 mls/hr 08/15/18 13:00 08/15/18 13:33 Sodium Chloride IV 08/24/18 13:01 100 mls/hr DAILY KD Administration Protocol Insulin Human Lispro 0 units 08/04/18 11:30 08/15/18 22:37 Humalog Low SC Not Given ACHS KD Protocol Levalbuterol HCl 1.25 mg 08/02/18 14:00 08/16/18 07:55 Xopenex IH 1.25 mg [id number] KD Administration Lidocaine 1 ea 08/10/18 10:00 08/15/18 10:28 Lidoderm TD 1 ea DAILY KD Administration Methylprednisolone 20 mg 08/15/18 09:15 08/15/18 21:13 Solu-Medrol IV 20 mg Q12H KD Administration Metoprolol Tartrate 25 mg 08/14/18 18:00 08/15/18 17:20 Lopressor PO 25 mg BID KD Administration Phenytoin 100 mg 08/14/18 14:00 08/16/18 07:51 Dilantin PO 100 mg Q8 KD Administration Thiamine HCl 100 mg 08/11/18 15:30 08/15/18 10:27 Vitamin B1 Inj IV 100 mg DAILY KD Administration Verapamil HCl 2.5 mg 08/12/18 13:17 Verapamil Inj IVP Q6H PRN for heart ratye >120 - Patient Studies Lab Studies: Microbiology Studies 08/10/18 09:15 Blood Culture - Final Blood NO GROWTH AFTER 5 DAYS Gram Stain - Final TEST NOT PERFORMED 08/10/18 09:00 Blood Culture - Final Blood NO GROWTH AFTER 5 DAYS Gram Stain - Final TEST NOT PERFORMED Lab Studies 08/16/18 08/16/18 08/16/18 Range/Units 08:11 05:30 05:30 WBC 9.2 D (4.5-11.0) 10^3/uL RBC 4.04 (3.5-6.1) 10^6/uL Hgb 11.7 L (14.0-18.0) g/dL Hct 38.6 L (42.0-52.0) % MCV 95.5 (80.0-105.0) fl MCH 29.0 (25.0-35.0) pg MCHC 30.3 L (31.0-37.0) g/dl RDW 15.7 H (11.5-14.5) % Plt Count 59 L (120.0-450.0) 10^3/uL MPV 10.5 (7.0-11.0) fl Gran % 93.6 H (50.0-68.0) % Lymph % (Auto) 2.2 L (22.0-35.0) % Montgomery % (Auto) 4.1 (1.0-6.0) % Eos % (Auto) 0.1 L (1.5-5.0) % Baso % (Auto) 0.0 (0.0-3.0) % Gran # 8.58 H (1.4-6.5) Lymph # (Auto) 0.2 L (1.2-3.4) Montgomery # (Auto) 0.4 (0.1-0.6) Eos # (Auto) 0.0 (0.0-0.7) Baso # (Auto) 0.00 (0.0-2.0) K/mm3 Sodium 146 (132-148) mmol/L Potassium 3.9 (3.6-5.0) mmol/L Chloride 111 H (98-107) mmol/L Carbon Dioxide 33 (21-33) mmol/L Anion Gap 6 L (10-20) BUN 45 H (7-21) mg/dL Creatinine 0.7 L (0.8-1.5) mg/dl Est GFR ( Amer) > 60 Est GFR (Non-Af Amer) > 60 POC Glucose (mg/dL) 146 H (65-110) mg/dL Random Glucose 148 H (70-110) mg/dL Calcium 8.0 L (8.4-10.5) mg/dL Phosphorus 2.0 L (2.5-4.5) mg/dL Magnesium 2.0 (1.7-2.2) mg/dL Total Bilirubin 1.7 H (0.2-1.3) mg/dL AST 35 (17-59) U/L ALT 50 (7-56) U/L Alkaline Phosphatase 56 (38-126) U/L Total Protein 4.2 L (5.8-8.3) g/dL Albumin 2.2 L (3.0-4.8) g/dL Globulin 2.0 gm/dL Albumin/Globulin Ratio 1.1 (1.1-1.8) 08/15/18 08/15/18 08/15/18 Range/Units 22:55 17:21 12:04 WBC (4.5-11.0) 10^3/uL RBC (3.5-6.1) 10^6/uL Hgb (14.0-18.0) g/dL Hct (42.0-52.0) % MCV (80.0-105.0) fl MCH (25.0-35.0) pg MCHC (31.0-37.0) g/dl RDW (11.5-14.5) % Plt Count (120.0-450.0) 10^3/uL MPV (7.0-11.0) fl Gran % (50.0-68.0) % Lymph % (Auto) (22.0-35.0) % Montgomery % (Auto) (1.0-6.0) % Eos % (Auto) (1.5-5.0) % Baso % (Auto) (0.0-3.0) % Gran # (1.4-6.5) Lymph # (Auto) (1.2-3.4) Montgomery # (Auto) (0.1-0.6) Eos # (Auto) (0.0-0.7) Baso # (Auto) (0.0-2.0) K/mm3 Sodium (132-148) mmol/L Potassium (3.6-5.0) mmol/L Chloride (98-107) mmol/L Carbon Dioxide (21-33) mmol/L Anion Gap (10-20) BUN (7-21) mg/dL Creatinine (0.8-1.5) mg/dl Est GFR ( Amer) Est GFR (Non-Af Amer) POC Glucose (mg/dL) 281 H 326 H 169 H (65-110) mg/dL Random Glucose (70-110) mg/dL Calcium (8.4-10.5) mg/dL Phosphorus (2.5-4.5) mg/dL Magnesium (1.7-2.2) mg/dL Total Bilirubin (0.2-1.3) mg/dL AST (17-59) U/L ALT (7-56) U/L Alkaline Phosphatase (38-126) U/L Total Protein (5.8-8.3) g/dL Albumin (3.0-4.8) g/dL Globulin gm/dL Albumin/Globulin Ratio (1.1-1.8) Laboratory Results - last 24 hr 08/15/18 08/15/18 08/15/18 12:04 17:21 22:55 WBC RBC Hgb Hct MCV MCH MCHC RDW Plt Count MPV Gran % Lymph % (Auto) Montgomery % (Auto) Eos % (Auto) Baso % (Auto) Gran # Lymph # (Auto) Montgomery # (Auto) Eos # (Auto) Baso # (Auto) Sodium Potassium Chloride Carbon Dioxide Anion Gap BUN Creatinine Est GFR ( Amer) Est GFR (Non-Af Amer) POC Glucose (mg/dL) 169 H 326 H 281 H Random Glucose Calcium Phosphorus Magnesium Total Bilirubin AST ALT Alkaline Phosphatase Total Protein Albumin Globulin Albumin/Globulin Ratio 08/16/18 08/16/18 08/16/18 05:30 05:30 08:11 WBC 9.2 D RBC 4.04 Hgb 11.7 L Hct 38.6 L MCV 95.5 MCH 29.0 MCHC 30.3 L RDW 15.7 H Plt Count 59 L MPV 10.5 Gran % 93.6 H Lymph % (Auto) 2.2 L Montgomery % (Auto) 4.1 Eos % (Auto) 0.1 L Baso % (Auto) 0.0 Gran # 8.58 H Lymph # (Auto) 0.2 L Montgomery # (Auto) 0.4 Eos # (Auto) 0.0 Baso # (Auto) 0.00 Sodium 146 Potassium 3.9 Chloride 111 H Carbon Dioxide 33 Anion Gap 6 L BUN 45 H Creatinine 0.7 L Est GFR ( Amer) > 60 Est GFR (Non-Af Amer) > 60 POC Glucose (mg/dL) 146 H Random Glucose 148 H Calcium 8.0 L Phosphorus 2.0 L Magnesium 2.0 Total Bilirubin 1.7 H AST 35 ALT 50 Alkaline Phosphatase 56 Total Protein 4.2 L Albumin 2.2 L Globulin 2.0 Albumin/Globulin Ratio 1.1 Fingerstick Blood Sugar Results: 326 Review of Systems - Review of Systems Review of Systems: as per HPI Critical Care Progress Note - Nutrition Nutrition: Nutrition Category Date Time Status Liquid Diet [DIET] Diets 08/14/18 Breakfast Ordered Assessment/Plan - Assessment and Plan (Free Text) Assessment: 82 y/o M with PMHx of rectal cancer POD 17 s/p R hemicolectomy & parastomal hernia repair (07/30) admitted to ICU for respiratory failure secondary to post- operative respiratory insufficiency secondary to mucus plugging of the L lung. S/p failed pulmonary toilet and s/p bronchoscopy w/ lavage x 2. Pt was found on 10/11 to have free air in the abdomen on CT scan. He had went to OR on 08/11 for exploratory lapartomy. Pt is s/p ileocolic resection 2/2 perforated viscus with multiorgan system failure, including respiratory failure, JOHNNY in the setting of pulmonary hypertension. Plan: Neuro/Psych: AxO x 3 No signs of seizures Dilantin for hx of seizures Will use benzodiazepines prn Cardio Pt s/p exploratory laparotomy w/ ileocolic resection 2/2 perforated viscus Pt normotensive at 120-140s/40-50s. Clonidine per PMD Does not require vasopressors Avoid hypovolemia with fluid resuscitation IJ central line in place Afib w/ rvr Verapamil/diltiazem/metoprolol per cardio recs eliquis on hold lovenox for DVT ppx Echo reveals severe pulmonary hypertension w. R ventricular insufficiency in the setting of L ventricular dysfunction Monitor H/H for signs sx of bleeding Pulmonary On nasal cannula 3L NC, maintain Spo2 >90% Conservative fluid/oxygen management HOB elevated >35 degrees Oral hygiene Chest PT Incentive spirometry OOB to chair Post-op respiratory insufficiency 2/2 mucus plugs s/p bronchoscopy w/ lavage 08/03 & 08/05 COPD Solumedrol IVP q12 per pulm recs Xopenex q6h Acetylcysteine 4ml IH q6h Budesonide GI s/p exploratory laparotomy ileocolic resection s/p viscus perforation (08/11) Colostomy bag in place, brown stool noted. RUSSELL drain in place, draining serosanguinous fluid Tolerating diet GI ppx Surgery/GI teams following Monitor for signs of overt bleeding /Renal JOHNNY 2/2 sepsis related to ATN Maintain MAP >65 maintain euvolemia with fluid resuscitation Avoid nephrotoxic medications Hold lasix Heme H/H stable Tranfuse if Hgb <8 hold anticoagulation ID Leukocytosis resolved Afebrile Wound culture/abdominal fluid culture growing VRE, jagdeep tropicalis Pt on meropenem, daptomycin and micafungin Thiamine for lactic acidosis treatment LLL infiltrate Endo BG between 140-180 per NICE-SUGAR trial Insulin SS DVT/GI PPx: lovenox/pepcid Dispo: Pt is AxO x 3, tolerating diet, chest PT with no acute complaints. He is hemodynamically stable and vital signs stable. His RUSSELL is draining serosanguinous fluid, and colostomy bag with stool. His leukocytosis has resolved, and he doesn't have signs of active bleeding. He is being treated with antibiotics and is being followed by ID. His R IJ central line has been removed. Pt no longer requires ICU care and is stable for transfer to remote telemetry. Please re-consult if necessary Case seen, examined and discussed with attending physician, Dr. Cochran <Lev Cochran - Last Filed: 08/16/18 13:56> CCU Objective - Vital Signs / Intake & Output Vital Signs (Last 4 hours): Vital Signs Temp Pulse Resp BP Pulse Ox 08/16/18 13:30 113 H 26 H 148/77 100 08/16/18 13:00 105 H 26 H 129/69 92 L 08/16/18 12:00 97.4 F L 107 H 26 H 149/67 95 08/16/18 11:00 104 H 20 133/87 100 08/16/18 10:00 99 H 20 140/73 Intake and Output (Last 8hrs): Intake & Output 08/15/18 08/16/18 08/16/18 22:59 06:59 14:59 Intake Total 1050 Output Total 1925 Balance -875 Intake: Oral 1050 Output: Drainage 975 Right Abdomen 425 colostomy 550 Urine 950 Urethral (Mcintosh) 950 - Medications Active Medications: Active Medications Generic Name Dose Route Start Last Admin Trade Name Freq PRN Reason Stop Dose Admin Acetylcysteine 4 ml 08/12/18 13:00 08/16/18 13:20 Acetylcysteine 20% IH 4 ml [id number] KD Administration Apixaban 2.5 mg 08/04/18 18:00 08/09/18 10:14 Eliquis PO Not Given BID KD Budesonide 0.5 mg 08/13/18 08:00 08/16/18 07:54 Pulmicort Respules IH 0.5 mg [id number] KD Administration Clonidine HCl 1 patch 08/13/18 10:00 08/13/18 09:12 Catapres Tts1 0.1 Mg/24 Hr TD 1 patch Q7D@1000 KD Administration Dextrose 0 ml 08/01/18 23:07 Dextrose 50% Inj IV STAT PRN Hypoglycemia Protocol Protocol Diltiazem HCl 30 mg 08/14/18 14:00 08/16/18 09:30 Cardizem PO 30 mg QID KD Administration Enoxaparin Sodium 60 mg 08/17/18 10:00 Lovenox SC Q12 KD Protocol Famotidine 20 mg 08/12/18 22:13 08/16/18 09:32 Pepcid IVP 20 mg DAILY KD Administration Hydromorphone HCl 0.5 mg 08/11/18 00:08 08/15/18 22:55 Dilaudid IVP 0.5 mg Q4H PRN Administration Pain, moderate (4-7) Dextrose 1,000 mls @ 0 mls/hr 08/01/18 23:07 Dextrose 5% In Water 1000 Ml IV .Q0M PRN Hypoglycemia Protocol Protocol Per Protocol Meropenem 1 gm in 50 mls @ 100 mls/hr 08/11/18 10:00 08/16/18 09:31 Merrem Iv 1 Gm Premix IVPB 08/20/18 10:01 100 mls/hr Q12 KD Administration Protocol Daptomycin 390 mg/ Sodium 100 mls @ 200 mls/hr 08/13/18 11:45 08/16/18 12:50 Chloride IV 08/20/18 11:46 200 mls/hr Q24H KD Administration Micafungin Sodium 100 mg/ 100 mls @ 100 mls/hr 08/15/18 13:00 08/16/18 09:31 Sodium Chloride IV 08/24/18 13:01 100 mls/hr DAILY KD Administration Protocol Insulin Human Lispro 0 units 08/04/18 11:30 08/16/18 08:25 Humalog Low SC Not Given ACHS KD Protocol Levalbuterol HCl 1.25 mg 08/02/18 14:00 08/16/18 13:20 Xopenex IH 1.25 mg [id number] KD Administration Lidocaine 1 ea 08/10/18 10:00 08/16/18 09:30 Lidoderm TD 1 ea DAILY KD Administration Methylprednisolone 20 mg 08/15/18 09:15 08/16/18 09:37 Solu-Medrol IV 20 mg Q12H KD Administration Metoprolol Tartrate 25 mg 08/14/18 18:00 08/16/18 09:31 Lopressor PO 25 mg BID KD Administration Phenytoin 100 mg 08/14/18 14:00 08/16/18 07:51 Dilantin PO 100 mg Q8 KD Administration Thiamine HCl 100 mg 08/11/18 15:30 08/16/18 09:32 Vitamin B1 Inj IV 100 mg DAILY KD Administration Verapamil HCl 2.5 mg 08/12/18 13:17 Verapamil Inj IVP Q6H PRN for heart ratye >120 - Patient Studies Lab Studies: Microbiology Studies 08/10/18 09:15 Blood Culture - Final Blood NO GROWTH AFTER 5 DAYS Gram Stain - Final TEST NOT PERFORMED 08/10/18 09:00 Blood Culture - Final Blood NO GROWTH AFTER 5 DAYS Gram Stain - Final TEST NOT PERFORMED Lab Studies 08/16/18 08/16/18 08/16/18 Range/Units 12:04 08:11 05:30 WBC (4.5-11.0) 10^3/uL RBC (3.5-6.1) 10^6/uL Hgb (14.0-18.0) g/dL Hct (42.0-52.0) % MCV (80.0-105.0) fl MCH (25.0-35.0) pg MCHC (31.0-37.0) g/dl RDW (11.5-14.5) % Plt Count (120.0-450.0) 10^3/uL MPV (7.0-11.0) fl Gran % (50.0-68.0) % Lymph % (Auto) (22.0-35.0) % Montgomery % (Auto) (1.0-6.0) % Eos % (Auto) (1.5-5.0) % Baso % (Auto) (0.0-3.0) % Gran # (1.4-6.5) Lymph # (Auto) (1.2-3.4) Montgomery # (Auto) (0.1-0.6) Eos # (Auto) (0.0-0.7) Baso # (Auto) (0.0-2.0) K/mm3 Sodium 146 (132-148) mmol/L Potassium 3.9 (3.6-5.0) mmol/L Chloride 111 H (98-107) mmol/L Carbon Dioxide 33 (21-33) mmol/L Anion Gap 6 L (10-20) BUN 45 H (7-21) mg/dL Creatinine 0.7 L (0.8-1.5) mg/dl Est GFR ( Amer) > 60 Est GFR (Non-Af Amer) > 60 POC Glucose (mg/dL) 169 H 146 H (65-110) mg/dL Random Glucose 148 H (70-110) mg/dL Calcium 8.0 L (8.4-10.5) mg/dL Phosphorus 2.0 L (2.5-4.5) mg/dL Magnesium 2.0 (1.7-2.2) mg/dL Total Bilirubin 1.7 H (0.2-1.3) mg/dL AST 35 (17-59) U/L ALT 50 (7-56) U/L Alkaline Phosphatase 56 (38-126) U/L Total Protein 4.2 L (5.8-8.3) g/dL Albumin 2.2 L (3.0-4.8) g/dL Globulin 2.0 gm/dL Albumin/Globulin Ratio 1.1 (1.1-1.8) 08/16/18 08/15/18 08/15/18 Range/Units 05:30 22:55 17:21 WBC 9.2 D (4.5-11.0) 10^3/uL RBC 4.04 (3.5-6.1) 10^6/uL Hgb 11.7 L (14.0-18.0) g/dL Hct 38.6 L (42.0-52.0) % MCV 95.5 (80.0-105.0) fl MCH 29.0 (25.0-35.0) pg MCHC 30.3 L (31.0-37.0) g/dl RDW 15.7 H (11.5-14.5) % Plt Count 59 L (120.0-450.0) 10^3/uL MPV 10.5 (7.0-11.0) fl Gran % 93.6 H (50.0-68.0) % Lymph % (Auto) 2.2 L (22.0-35.0) % Montgomery % (Auto) 4.1 (1.0-6.0) % Eos % (Auto) 0.1 L (1.5-5.0) % Baso % (Auto) 0.0 (0.0-3.0) % Gran # 8.58 H (1.4-6.5) Lymph # (Auto) 0.2 L (1.2-3.4) Montgomery # (Auto) 0.4 (0.1-0.6) Eos # (Auto) 0.0 (0.0-0.7) Baso # (Auto) 0.00 (0.0-2.0) K/mm3 Sodium (132-148) mmol/L Potassium (3.6-5.0) mmol/L Chloride (98-107) mmol/L Carbon Dioxide (21-33) mmol/L Anion Gap (10-20) BUN (7-21) mg/dL Creatinine (0.8-1.5) mg/dl Est GFR ( Amer) Est GFR (Non-Af Amer) POC Glucose (mg/dL) 281 H 326 H (65-110) mg/dL Random Glucose (70-110) mg/dL Calcium (8.4-10.5) mg/dL Phosphorus (2.5-4.5) mg/dL Magnesium (1.7-2.2) mg/dL Total Bilirubin (0.2-1.3) mg/dL AST (17-59) U/L ALT (7-56) U/L Alkaline Phosphatase (38-126) U/L Total Protein (5.8-8.3) g/dL Albumin (3.0-4.8) g/dL Globulin gm/dL Albumin/Globulin Ratio (1.1-1.8) 08/15/18 Range/Units 12:04 WBC (4.5-11.0) 10^3/uL RBC (3.5-6.1) 10^6/uL Hgb (14.0-18.0) g/dL Hct (42.0-52.0) % MCV (80.0-105.0) fl MCH (25.0-35.0) pg MCHC (31.0-37.0) g/dl RDW (11.5-14.5) % Plt Count (120.0-450.0) 10^3/uL MPV (7.0-11.0) fl Gran % (50.0-68.0) % Lymph % (Auto) (22.0-35.0) % Montgomery % (Auto) (1.0-6.0) % Eos % (Auto) (1.5-5.0) % Baso % (Auto) (0.0-3.0) % Gran # (1.4-6.5) Lymph # (Auto) (1.2-3.4) Montgomery # (Auto) (0.1-0.6) Eos # (Auto) (0.0-0.7) Baso # (Auto) (0.0-2.0) K/mm3 Sodium (132-148) mmol/L Potassium (3.6-5.0) mmol/L Chloride (98-107) mmol/L Carbon Dioxide (21-33) mmol/L Anion Gap (10-20) BUN (7-21) mg/dL Creatinine (0.8-1.5) mg/dl Est GFR ( Amer) Est GFR (Non-Af Amer) POC Glucose (mg/dL) 169 H (65-110) mg/dL Random Glucose (70-110) mg/dL Calcium (8.4-10.5) mg/dL Phosphorus (2.5-4.5) mg/dL Magnesium (1.7-2.2) mg/dL Total Bilirubin (0.2-1.3) mg/dL AST (17-59) U/L ALT (7-56) U/L Alkaline Phosphatase (38-126) U/L Total Protein (5.8-8.3) g/dL Albumin (3.0-4.8) g/dL Globulin gm/dL Albumin/Globulin Ratio (1.1-1.8) Laboratory Results - last 24 hr 08/15/18 08/15/18 08/15/18 12:04 17:21 22:55 WBC RBC Hgb Hct MCV MCH MCHC RDW Plt Count MPV Gran % Lymph % (Auto) Montgomery % (Auto) Eos % (Auto) Baso % (Auto) Gran # Lymph # (Auto) [place] # (Auto) Eos # (Auto) Baso # (Auto) Sodium Potassium Chloride Carbon Dioxide Anion Gap BUN Creatinine Est GFR ( Amer) Est GFR (Non-Af Amer) POC Glucose (mg/dL) 169 H 326 H 281 H Random Glucose Calcium Phosphorus Magnesium Total Bilirubin AST ALT Alkaline Phosphatase Total Protein Albumin Globulin Albumin/Globulin Ratio 08/16/18 08/16/18 08/16/18 05:30 05:30 08:11 WBC 9.2 D RBC 4.04 Hgb 11.7 L Hct 38.6 L MCV 95.5 MCH 29.0 MCHC 30.3 L RDW 15.7 H Plt Count 59 L MPV 10.5 Gran % 93.6 H Lymph % (Auto) 2.2 L [place] % (Auto) 4.1 Eos % (Auto) 0.1 L Baso % (Auto) 0.0 Gran # 8.58 H Lymph # (Auto) 0.2 L [place] # (Auto) 0.4 Eos # (Auto) 0.0 Baso # (Auto) 0.00 Sodium 146 Potassium 3.9 Chloride 111 H Carbon Dioxide 33 Anion Gap 6 L BUN 45 H Creatinine 0.7 L Est GFR ( Amer) > 60 Est GFR (Non-Af Amer) > 60 POC Glucose (mg/dL) 146 H Random Glucose 148 H Calcium 8.0 L Phosphorus 2.0 L Magnesium 2.0 Total Bilirubin 1.7 H AST 35 ALT 50 Alkaline Phosphatase 56 Total Protein 4.2 L Albumin 2.2 L Globulin 2.0 Albumin/Globulin Ratio 1.1 08/16/18 12:04 WBC RBC Hgb Hct MCV MCH MCHC RDW Plt Count MPV Gran % Lymph % (Auto) Montgomery % (Auto) Eos % (Auto) Baso % (Auto) Gran # Lymph # (Auto) [place] # (Auto) Eos # (Auto) Baso # (Auto) Sodium Potassium Chloride Carbon Dioxide Anion Gap BUN Creatinine Est GFR ( Amer) Est GFR (Non-Af Amer) POC Glucose (mg/dL) 169 H Random Glucose Calcium Phosphorus Magnesium Total Bilirubin AST ALT Alkaline Phosphatase Total Protein Albumin Globulin Albumin/Globulin Ratio Critical Care Progress Note - Nutrition Nutrition: Nutrition Category Date Time Status Liquid Diet [DIET] Diets 08/16/18 Breakfast Ordered Assessment/Plan - Assessment and Plan (Free Text) Plan: Patient seen and examined on rounds with resident, agree with note with following additions/exceptions: 82 year old male with past medical history of rectal cancer s/p total colectomy, zenker's diverticulum, thrombocytopenia, aortic stent placement for AAA, seizure disorder, hypertension, hyperlipidemia, thrombocytopenia, atrial fibrillation on eliquis s/p surgery on 07/30 for polyp removal with parastomal hernia repair, s/p ex-lap ileocolic resect s/p perforation, admitted to MICU w ith renal failure and lung collapse 2/2 mucus plugging, s/p bronchoscopy x 2, with subsequent resolution of lung collapse, and significant improvement in aeration of CXR. Labs, imaging, chart reviewed CXR unchanged Renal, ID, Pulm following. VRE on cultures, wound Renal function stable Lung Collapse, RESOLVED Afib on A/C COPD Hx Smoking Rectal Ca s/p total colectomy Chronic Thrombocytopenia Mucus plugging s/p bronchoscopy X2 Pleural effusion Renal failure, resolving VRE Recommend: - cont with supp o2 as needed, goal sat 90%, duonebs PRN, IS - taper Solumedrol to Prednisone 40mg daily PO - aggressive chest PT - follow up cultures, UCx, BCx, Procal - Abx as per ID, Daptomycin - Follow up renal - I/Os - FS control - clear liquid diet as per surgery - follow up surgery - GI ppx - DVT ppx - STABLE, transfer to remote tele, primary team aware and agrees
[2018-08-16] MEDS: Insulin Lispro (humaLOG) LOW Coverage SC SCH ×4 (08:25→16:38)
--- NOTE | 2018-08-16 08:28 | PN ---
DATE: 08/13/2018 SUBJECTIVE: The patient is 82-year-old, seen and examined, sitting in bed, having nasogastric tube in. As per nurse, asking for LCS too frequently. Has a lot of aspirate from the nasogastric tube. No nausea or vomiting. No fever noted. PHYSICAL EXAMINATION: VITAL SIGNS: He is afebrile, pulse 99, respirations 21, blood pressure 144/90. LUNGS: Bilateral fair airflow. No rhonchi or crackle. HEART: S1 and S2 audible. ABDOMEN: Soft. Right lower quadrant discomfort. NEUROLOGICAL: He is awake, alert, oriented, communicative. EXTREMITIES: On the bilateral leg, he has SCDs placed. LABORATORY DATA: WBC 9.6, hemoglobin 9.2, hematocrit 30, platelets 85. Chemistry: Sodium 146, potassium 3.7, chloride 112, CO2 of 30, BUN 68, creatinine 1.2, blood sugar 143. Abdominal aspirate has vanco-resistant Enterococcus faecium and yeast. ASSESSMENT: 1. Followup laparotomy and had ileal resection with end-to-end anastomosis. 2. Enterococcus faecium aspirate from laparotomy. 3. Seizure disorders. 4. Hypertension. 5. Seizure disorder. 6. Chronic atrial fibrillation, not on any anticoagulation. 7. Left periorbital bruise. PLAN: The patient is off of seizure medication. We could start him on IV since he is n.p.o. and on nasogastric suction. He has been started on . We will continue on nebulizer treatment. He is on clonidine patch. Continue him on IV fluid. Follow up the patient in the a.m. Tri Fleming MD
--- NOTE | 2018-08-16 09:20 | PN ---
DATE: 08/14/2018 SUBJECTIVE: The patient is an 82-year-old, seen and examined, sitting in bed, complains of generalized weakness and tolerating liquids. PHYSICAL EXAMINATION: VITAL SIGNS: He is afebrile, pulse 95, respirations 20, and blood pressure 138/64. LUNGS: Bilateral fair airflow. Decreased breath sounds on the right bases. HEART: S1 and S2 audible. ABDOMEN: Soft, positive palpable discomfort in surgical site. Colostomy is functional. LABORATORY DATA: WBC 9.3, hemoglobin 10.7, hematocrit 34.1, and platelets of 69. Chemistry: Sodium 149, potassium 3.8, chloride 114, CO2 of 31, BUN 59, and creatinine 0.9. Blood sugar of 164. Abdominal drain culture positive for vancomycin-resistant Enterococcus faecium and Reshma tropicalis. ASSESSMENT: 1. Status post revision of laparotomy and dissection of terminal ileum followed by end-to-end anastomosis. 2. Hypertension. 3. Chronic atrial fibrillation. 4. History of seizure disorder. 5. Idiopathic thrombocytopenia. 6. Chronic obstructive pulmonary disease. PLAN: The patient is currently on IV fluids. The patient is on Cardizem. He has been started on daptomycin. His Eliquis is on hold. He is on metoprolol 5 mg every 6 hours. He was on Lovenox, but is on hold now. He is currently on DVT prophylaxis. He is on meropenem. Continue nebulizer treatment. We will follow up his electrolytes. We will follow patient in a.m. Tri Fleming MD
[2018-08-16] MEDS: Lidocaine 5% Patch TD SCH (09:30)
[2018-08-16] MEDS: Meropenem IV 1 gm in NS 1 GM/50 ML BAG IVPB SCH ×2 (09:31→21:04)
[2018-08-16] MEDS: Micafungin 100 MG in Sodium Chloride 0.9% 100 ML IV SCH (09:31)
[2018-08-16] MEDS: Thiamine 100 mg/ml Inj IV SCH (09:32)
[2018-08-16] MEDS: MethylPREDNISolone 40 mg Vial IV SCH ×2 (09:37→21:07)
[2018-08-16] MEDS: Enoxaparin 30 mg Syringe SC SCH (09:53)
[2018-08-16] MEDS ORDERED: Potassium & Sodium Phosphate PO STA (10:10)
--- NOTE | 2018-08-16 11:07 | RAD ---
Date of service: 08/16/2018 HISTORY: f/u COMPARISON: 08/15/2018 FINDINGS: LUNGS: No active pulmonary disease. PLEURA: Small pleural effusions CARDIOVASCULAR: Aortic calcification Moderate cardiomegaly OSSEOUS STRUCTURES: No significant abnormalities. VISUALIZED UPPER ABDOMEN: Normal. OTHER FINDINGS: Right IJ line in the right atrium IMPRESSION: Cardiomegaly. Small bilateral pleural effusions
--- NOTE | 2018-08-16 11:21 | CP.PCM.PCO ---
Physician Communication Note - Physician Communication Note Physician Communication Note: OK Remote Tele/full liquids
--- NOTE | 2018-08-16 14:23 | CP.PCM.PN ---
Subjective - Date & Time of Evaluation Date of Evaluation: 08/16/18 Time of Evaluation: 07:00 - Subjective Subjective: General Surgery Progress Note for Dr. Du 82M, seen and evaluated at bedside this morning. No acute events overnight. No complaints this morning. Fabian draining 400cc serosanguinous fluid overnight. Patient tolerating liquid diet. Denies f/c, n/v/d, SOB, CP, or urinary symptoms. Objective - Vital Signs/Intake and Output Vital Signs (last 24 hours): Temp Pulse Resp BP Pulse Ox 97.4 F L 119 H 28 H 148/77 100 08/16/18 12:00 08/16/18 13:30 08/16/18 13:30 08/16/18 13:30 08/16/18 13:30 - Medications Medications: Current Medications Acetylcysteine (Acetylcysteine 20%) 4 ml IH [id number] [facility] Last Admin: 08/16/18 13:20 Dose: 4 ml Apixaban (Eliquis) 2.5 mg PO BID [facility] Last Admin: 08/09/18 10:14 Dose: Not Given Budesonide (Pulmicort Respules) 0.5 mg IH [id number] [facility] Last Admin: 08/16/18 07:54 Dose: 0.5 mg Clonidine HCl (Catapres Tts1 0.1 Mg/24 Hr) 1 patch TD Q7D@1000 KD Last Admin: 08/13/18 09:12 Dose: 1 patch Dextrose (Dextrose 50% Inj) 0 ml IV STAT PRN; Protocol PRN Reason: Hypoglycemia Protocol Diltiazem HCl (Cardizem) 30 mg PO QID [facility] Last Admin: 08/16/18 09:30 Dose: 30 mg Enoxaparin Sodium (Lovenox) 60 mg SC Q12 [facility]; Protocol Famotidine (Pepcid) 20 mg IVP DAILY [facility] Last Admin: 08/16/18 09:32 Dose: 20 mg Hydromorphone HCl (Dilaudid) 0.5 mg IVP Q4H PRN PRN Reason: Pain, moderate (4-7) Last Admin: 08/15/18 22:55 Dose: 0.5 mg Dextrose (Dextrose 5% In Water 1000 Ml) 1,000 mls @ 0 mls/hr IV .Q0M PRN; Protocol PRN Reason: Hypoglycemia Protocol Meropenem (Merrem Iv 1 Gm Premix) 1 gm in 50 mls @ 100 mls/hr IVPB Q12 KD; Protocol Stop: 08/20/18 10:01 Last Admin: 08/16/18 09:31 Dose: 100 mls/hr Daptomycin 390 mg/ Sodium (Chloride) 100 mls @ 200 mls/hr IV Q24H KD Stop: 08/20/18 11:46 Last Admin: 08/16/18 12:50 Dose: 200 mls/hr Micafungin Sodium 100 mg/ (Sodium Chloride) 100 mls @ 100 mls/hr IV DAILY KD; Protocol Stop: 08/24/18 13:01 Last Admin: 08/16/18 09:31 Dose: 100 mls/hr Insulin Human Lispro (Humalog Low) 0 units SC ACHS [facility]; Protocol Last Admin: 08/16/18 13:55 Dose: 1 u Levalbuterol HCl (Xopenex) 1.25 mg IH [id number] [facility] Last Admin: 08/16/18 13:20 Dose: 1.25 mg Lidocaine (Lidoderm) 1 ea TD DAILY [facility] Last Admin: 08/16/18 09:30 Dose: 1 ea Methylprednisolone (Solu-Medrol) 20 mg IV Q12H [facility] Last Admin: 08/16/18 09:37 Dose: 20 mg Metoprolol Tartrate (Lopressor) 25 mg PO BID [facility] Last Admin: 08/16/18 09:31 Dose: 25 mg Phenytoin (Dilantin) 100 mg PO Q8 [facility] Last Admin: 08/16/18 07:51 Dose: 100 mg Thiamine HCl (Vitamin B1 Inj) 100 mg IV DAILY [facility] Last Admin: 08/16/18 09:32 Dose: 100 mg Verapamil HCl (Verapamil Inj) 2.5 mg IVP Q6H PRN PRN Reason: for heart ratye >120 - Labs Labs: 08/16/18 05:30 08/16/18 05:30 PT 14.5 SECONDS (9.4-12.5) H 08/11/18 12:50 INR 1.26 08/11/18 12:50 APTT 33.2 Seconds (25.1-36.5) 08/11/18 12:50 - Constitutional Appears: Well, Non-toxic, No Acute Distress - Head Exam Head Exam: ATRAUMATIC, NORMAL INSPECTION, NORMOCEPHALIC - Eye Exam Eye Exam: EOMI - ENT Exam ENT Exam: Mucous Membranes Moist - Respiratory Exam Respiratory Exam: Clear to Ausculation Bilateral, NORMAL BREATHING PATTERN - Cardiovascular Exam Cardiovascular Exam: REGULAR RHYTHM, +S1, +S2. absent: Murmur - GI/Abdominal Exam GI & Abdominal Exam: Soft, Normal Bowel Sounds Additional comments: Ostomy pink, patent, and productive - Neurological Exam Neurological Exam: Alert, Awake - Psychiatric Exam Psychiatric exam: Normal Affect, Normal Mood - Skin Skin Exam: Dry, Intact, Normal Color, Warm Assessment and Plan - Assessment and Plan (Free Text) Assessment: 82M s/p ex lap for ileal perforation POD5 Plan: Continue with liquid diet as tolerating Encourage IS use Continue to monitor Fabian output F/u peritoneal fluid BUN/Cr Continue IV ABx per ID Patient okay for remote telemetry Further recommendations per Dr. Florian Metz PGY1
--- NOTE | 2018-08-16 16:03 | CP.PCM.PN ---
Subjective - Date & Time of Evaluation Date of Evaluation: 08/16/18 Time of Evaluation: 07:45 - Subjective Subjective: No fevers, abdominal pain is less, starting to eat better, not in distress. Objective - Vital Signs/Intake and Output Vital Signs (last 24 hours): Temp Pulse Resp BP Pulse Ox 98.9 F 90 26 H 129/64 98 08/15/18 20:00 08/15/18 18:00 08/15/18 07:08 08/15/18 17:20 08/15/18 16:00 Intake and Output: 08/15/18 08/16/18 18:59 06:59 Intake Total 1050 Output Total 1925 Balance -875 - Medications Medications: Current Medications Acetylcysteine (Acetylcysteine 20%) 4 ml IH [id number] [facility] Last Admin: 08/15/18 20:08 Dose: 4 ml Apixaban (Eliquis) 2.5 mg PO BID [facility] Last Admin: 08/09/18 10:14 Dose: Not Given Budesonide (Pulmicort Respules) 0.5 mg IH [id number] [facility] Last Admin: 08/15/18 20:09 Dose: 0.5 mg Clonidine HCl (Catapres Tts1 0.1 Mg/24 Hr) 1 patch TD Q7D@1000 [facility] Last Admin: 08/13/18 09:12 Dose: 1 patch Dextrose (Dextrose 50% Inj) 0 ml IV STAT PRN; Protocol PRN Reason: Hypoglycemia Protocol Diltiazem HCl (Cardizem Cd) 360 mg PO DAILY [facility] Last Admin: 08/11/18 11:54 Dose: Not Given Diltiazem HCl (Cardizem) 30 mg PO QID [facility] Last Admin: 08/15/18 17:19 Dose: 30 mg Enoxaparin Sodium (Lovenox) 60 mg SC Q12H [facility]; Protocol Last Admin: 08/10/18 19:29 Dose: Not Given Enoxaparin Sodium (Lovenox) 30 mg SC DAILY [facility]; Protocol Last Admin: 08/15/18 10:27 Dose: 30 mg Famotidine (Pepcid) 20 mg IVP DAILY [facility] Last Admin: 08/15/18 10:26 Dose: 20 mg Hydromorphone HCl (Dilaudid) 0.5 mg IVP Q4H PRN PRN Reason: Pain, moderate (4-7) Last Admin: 08/15/18 13:33 Dose: 0.5 mg Dextrose (Dextrose 5% In Water 1000 Ml) 1,000 mls @ 0 mls/hr IV .Q0M PRN; Protocol PRN Reason: Hypoglycemia Protocol Meropenem (Merrem Iv 1 Gm Premix) 1 gm in 50 mls @ 100 mls/hr IVPB Q12 KD; Protocol Stop: 08/20/18 10:01 Last Admin: 08/15/18 10:25 Dose: 100 mls/hr Daptomycin 390 mg/ Sodium (Chloride) 100 mls @ 200 mls/hr IV Q24H KD Stop: 08/20/18 11:46 Last Admin: 08/15/18 10:45 Dose: 200 mls/hr Micafungin Sodium 100 mg/ (Sodium Chloride) 100 mls @ 100 mls/hr IV DAILY KD; Protocol Stop: 08/24/18 13:01 Last Admin: 08/15/18 13:33 Dose: 100 mls/hr Insulin Human Lispro (Humalog Low) 0 units SC ACHS [facility]; Protocol Last Admin: 08/15/18 17:19 Dose: 4 u Levalbuterol HCl (Xopenex) 1.25 mg IH [id number] [facility] Last Admin: 08/15/18 20:10 Dose: 1.25 mg Lidocaine (Lidoderm) 1 ea TD DAILY [facility] Last Admin: 08/15/18 10:28 Dose: 1 ea Methylprednisolone (Solu-Medrol) 20 mg IV Q12H [facility] Last Admin: 08/15/18 10:26 Dose: 20 mg Metoprolol Tartrate (Lopressor) 5 mg IVP Q6H KD Last Admin: 08/15/18 15:25 Dose: 5 mg Metoprolol Tartrate (Lopressor) 25 mg PO BID [facility] Last Admin: 08/15/18 17:20 Dose: 25 mg Metoprolol Tartrate (Lopressor) 25 mg PO BID [facility] Phenytoin (Dilantin) 100 mg PO Q8 KD Last Admin: 08/15/18 13:35 Dose: 100 mg Prednisone (Prednisone Tab) 40 mg PO DAILY [facility] Thiamine HCl (Vitamin B1 Inj) 100 mg IV DAILY [facility] Last Admin: 08/15/18 10:27 Dose: 100 mg Verapamil HCl (Verapamil Inj) 2.5 mg IVP Q6H PRN PRN Reason: for heart ratye >120 - Labs Labs: 08/15/18 05:45 08/15/18 05:45 PT 14.5 SECONDS (9.4-12.5) H 08/11/18 12:50 INR 1.26 08/11/18 12:50 APTT 33.2 Seconds (25.1-36.5) 08/11/18 12:50 - Constitutional Appears: Chronically Ill - Head Exam Head Exam: NORMAL INSPECTION - Neck Exam Neck Exam: absent: Meningismus - Respiratory Exam Respiratory Exam: Decreased Breath Sounds - Cardiovascular Exam Cardiovascular Exam: +S1, +S2 - GI/Abdominal Exam GI & Abdominal Exam: Soft. absent: Tenderness Additional comments: midline surgical scar clean and jerardo in place, right sided RUSSELL drain with serous discharge Assessment and Plan - Assessment and Plan (Free Text) Plan: Assessment sepsis S/P VDRF due to perforated ileum with intra-peritoneal abscesses S/P ex- lap, drainage of abscesses and small bowel obstruction POD #9, growing VRE, C. tropicalis S/P treatment for HCAP rectal cancer atrial fibrillation GERD anxiety disorder chronic CHF CAD Plan continue Daptomycin, Merrem and Mycamine and will continue to monitor clinically and trend WBC count, as well as monitor RUSSELL drain output
--- NOTE | 2018-08-16 18:40 | PN ---
DATE: 08/16/2018 REASON FOR THE CONSULTATION: History of chronic atrial fibrillation status post right hemicolectomy, status post perforation of hollow viscus status post exploratory laparotomy and resection of the bowel, end-to-end anastomosis, off anticoagulation. SUBJECTIVE: Patient denies any chest pain, shortness of breath, or any palpitation. OBJECTIVE: GENERAL: Not in apparent distress. Started tolerating clear liquid. VITAL SIGNS: Temperature afebrile, heart rate 108, blood pressure 140/73. HEENT: PERRLA. Extraocular muscles intact. NECK: Supple. No carotid bruits or thyromegaly. CHEST: Clear to auscultation. HEART: S1 and S2, regular. ABDOMEN: Soft. EXTREMITIES: Clubbing and cyanosis, negative. LABORATORY DATA: Blood workup as follows: WBC 9.3, hemoglobin 11.3, hematocrit 38.6, platelet count 59. Chemistry shows sodium 143, potassium 3.9, chloride 111, carbon dioxide 30, anion gap of 15, BUN 45, creatine 0.7. IMPRESSION: An 82-year-old male with past medical history significant for abdominal aortic aneurysm, endovascular repair, history of chronic atrial fibrillation, history of colostomy, history of new villous adenoma of the cecum status post right hemicolectomy. Hospital course complicated by multiple episodes of left lung collapse with multiple times of bronchoscopy and intubated. Further complicated by perforation of the hollow viscus status post exploratory laparotomy and end-to-end anastomosis, resection of the perforated bowel segment. Patient has an atrial fibrillation. Anticoagulation has been started because of the very rough very person with multiple times intubation, bronchoscopy and also exploratory laparotomy. Now patient is on deep vein thrombosis prophylaxis. RECOMMENDATIONS: We will start from tomorrow Lovenox 1 mg/kg every 12 hours. If tolerating for 2-3 days, we will switch over to Eliquis. Clear liquid started. We will progress to full liquid as diet is tolerated. Continue Cardizem 30 every 6 hours to control the heart rate. Continue metoprolol. Supplement electrolytes as needed. We will follow with you. We will start 60 subcu every 12 hours from tomorrow. Thank you, Dr. Du, for providing us the opportunity in taking care of patient, Roshan Hale. Gladis Greenfield MD [facility] # [id number]
--- NOTE | 2018-08-16 19:41 | PN ---
DATE: 08/16/2018 CRITICAL CARE PROGRESS NOTE SUBJECTIVE: This 82-year-old male was examined at his bedside in the Critical Care Unit bed #2 on the morning of 08/16/2018. Present for this interview was nurse Angela Kaufman, registered nurse. The patient was lying in bed. His Josué-Murdock is draining approximately 200 mL of fluid every 2-3 hours according to nurse, Shae. The patient remains weak and deconditioned and requires frequent suctioning because of previous episodes of mucus plugging. The patient is currently receiving clear liquid fluids and is being followed daily by surgeon Dr. Rocael Du who recently performed a repair of a perforated ileum, status post a right hemicolectomy for a cecal mass. At present, the patient denies any fever, chills, chest pain, or shortness of breath. PHYSICAL EXAMINATION: VITAL SIGNS: Noted to be an atrial fibrillation rhythm on the manager cardiac cath with a temperature of 97.9, respirations 15, pulse 98, and blood pressure 149/75. HEENT: Head: Normocephalic, atraumatic. Eyes: No icterus. Ears: Clear. Throat: Noninjected. NECK: Supple. HEART: Irregular S1, S2. LUNGS: Decreased breath sounds at the bases. ABDOMEN: Soft. EXTREMITIES: No edema. SKIN: Without rash. NEUROLOGICAL: Deconditioned. PSYCHOLOGICAL: Alert but confused. VASCULAR: Legs warm to touch. LABORATORY DATA: White count 9200, hemoglobin 11.7, hematocrit 38.6, platelets 59,000. Sodium 146, K 3.9, chloride 111, bicarb 33, BUN 45, creatinine 0.6, random blood sugar 148. Phosphorous 2. Bilirubin 1.7, AST 35, ALT 50, and alk phos 56. IMPRESSION AND PLAN: An 82-year-old male status post acute renal failure with recent right hemicolectomy and repair of a perforated ileum and comorbidities of mucus plugging of his lung which required bronchoscopy and suctioning x2 and recent intubation postoperatively with comorbidities of chronic atrial fibrillation, chronic hypertension, wound infections showing vancomycin-resistant Enterococcus and Reshma tropicalis along with seizure syndrome, type 2 diabetes mellitus, deconditioning, chronic obstructive pulmonary disease, degenerative arthritis, and postoperative anemia. At present, the patient will continue on Mucomyst inhalational therapy, Cardizem, clonidine, daptomycin, Dilantin, Humalog insulin coverage, Lidoderm, Lopressor, subcu Lovenox, IV meropenem, IV micafungin, IV Pepcid, inhalational Pulmicort, Solu-Medrol taper and Xopenex inhalational therapy. The patient is being evaluated for subacute rehab. He will have additional laboratories drawn in the a.m. He continues on pulmonary toiletry and is encouraged to do incentive spirometry and is wearing BiPAP/CPAP and receiving chest physiotherapy. He is also encouraged to wear antiembolism stockings and this case was reviewed with his nurse, Angela Kaufman, registered nurse and the patient at bedside. All questions were answered. Sara Ramirez MD MTDJevon
[2018-08-17] MEDS: Insulin Lispro (humaLOG) LOW Coverage SC SCH ×5 (01:10→21:56)
--- NOTE | 2018-08-17 01:28 | PN ---
DATE: SUBJECTIVE: The patient is an 82 years old, seen and examined, sitting in chair, awake, alert, oriented, communicative, participating in incentive spirometry, tolerating food. No complaint. No chest pain. No shortness of breath. PHYSICAL EXAMINATION VITAL SIGNS: He is afebrile, pulse 109, respirations 22, blood pressure 147/98. LUNGS: Bilateral fair airflow, decreased at bases. HEART: S1 and S2 audible. ABDOMEN: Soft. Mass palpable, discomfort at surgical site. Colostomy is functional. EXTREMITIES: Bilateral legs, no edema. SCDs in place. LABORATORY DATA: WBC 9.2, hemoglobin 11.7, hematocrit 38.6, platelet 159. Chemistry: Sodium 146, potassium 3.9, chloride 111, CO2 of 33, BUN 45, creatinine 0.7, blood sugar of 206, phosphorus is 2. ASSESSMENT: 1. Revision of colostomy. 2. Status post partial colectomy. 3. History of hypertension. 4. Seizure disorder. 5. Deconditioning and difficulty walking. 6. Idiopathic thrombocytopenia. PLAN: Currently, the patient is on diltiazem. the patient's oral improve, we will change it to Cardizem CD. Continue him on daptomycin. He is on Dilantin. He is on metoprolol and meropenem. He is getting micafungin. He is on IV steroid. Evaluated by Dr. Du and allowed him to be transferred to remote . Tri Fleming MD
[2018-08-17] MEDS: Levalbuterol 1.25 MG/3 ML Inhal Soln UD IH SCH ×3 (02:00→13:14)
[2018-08-17] MEDS: Phenytoin 100 mg/4 ml Oral Susp UD PO SCH ×3 (05:26→22:02)
--- NOTE | 2018-08-17 07:07 | PN ---
DATE: 08/17/2018 PULMONARY NOTE SUBJECTIVE: The patient appears comfortable this morning. He is not short of breath at rest. PHYSICAL EXAMINATION: VITAL SIGNS: Temperature is 98.9, pulse is 98, respiratory rate 20, blood pressure 142/65. Oxygen saturation on nasal cannula is 99%. HEENT: Normocephalic, atraumatic. No JVD. CARDIOVASCULAR: Systolic ejection murmur at the lower left sternal border. Questionable S3 gallop. LUNGS: Decreased breath sounds at the bases. Minimal/less rhonchi. No wheezing. EXTREMITIES: Mild edema. No cyanosis. No clubbing. Calves are nontender to palpation. GI: Abdomen is postoperative. It is soft. It is less distended and less tender to palpation. SKIN: No acute rash. NEUROLOGIC: Limited at the present time. PERTINENT LABORATORY DATA: Chest x-ray was done this morning and reviewed. It is again a poor rotated film. There is no significant atelectasis noted in the left lung. There is less right lower lobe "haziness." There is less pulmonary vascular congestion. Official results are pending. IMPRESSION: 1. Intra-abdominal perforation. 2. Status post right hemicolectomy. 3. Recurrent left lung atelectasis. 4. Chronic obstructive pulmonary disease. 5. Congestive heart failure. 6. Atrial fibrillation. 7. Anemia, thrombocytopenia. PLAN: The patient appears comfortable this morning. He is not short of breath at rest. He does state to feeling much better overall. I did discuss the case with a night nurse at length. The night nurse stated that the patient had a good night. I did review the chest x-ray from this morning. Findings are noted above. Again, the chest x-ray has improved significantly from last week and the week before. On physical exam, there is certainly less bronchospasm noted. In addition, the oxygen saturation on nasal cannula is now 99%. I will continue with the current nebulizer treatments and low-dose intravenous steroids for now. Inputs by Cardiology and Infectious Disease are also noted. Clinical status of the patient is significantly improved overall. His future status/prognosis does remain guarded. I will discuss the above with the entire ICU team in the next few moments. I will also discuss the above with the attending physician. Rosalio Blevins MD [facility] # [id number] [place]
[2018-08-17 07:13] LABS: GRAN # 16.17 (1.4-6.5); GRAN % 95.5 % (50.0-68.0); LYMPH # 0.3 (1.2-3.4); MEAN CELL VOLUME 93.3 fl (80.0-105.0); MEAN CORPUSCULAR HGB CONC 31.1 g/dl (31.0-37.0); MEAN PLATELET VOLUME 10.2 fl (7.0-11.0); MONO # 0.4 (0.1-0.6); MONO % 2.5 % (1.0-6.0); RBC 4.48 10^6/uL (3.5-6.1); RED CELL DISTRIBUTION WIDTH 15.4 % (11.5-14.5); WHITE BLOOD COUNT 16.9 10^3/uL (4.5-11.0)
[2018-08-17 07:17] LABS: ALB/GLOB RATIO 1.1 (1.1-1.8); ALBUMIN 2.2 g/dL (3.0-4.8); ALT/SGPT 58 U/L (7-56); AST/SGOT 44 U/L (17-59); BLOOD UREA NITROGEN 44 mg/dL (7-21); CALCIUM 7.7 mg/dL (8.4-10.5); GFR NON-AFRICAN AMERICAN > 60
[2018-08-17] MEDS: Budesonide 0.5 mg/2 ml Inhal Susp UD IH SCH ×2 (07:51→20:49)
[2018-08-17] MEDS: Acetylcysteine 20% Inhal Soln (4ml) IH SCH ×3 (07:51→20:48)
--- NOTE | 2018-08-17 08:47 | RAD ---
Date of service: 08/17/2018 HISTORY: follow up COMPARISON: 08/16/2018 FINDINGS: LUNGS: No active pulmonary disease. PLEURA: Small bilateral pleural effusions CARDIOVASCULAR: Aortic calcification Mild to moderate cardiomegaly no pulmonary vascular congestion. OSSEOUS STRUCTURES: No significant abnormalities. VISUALIZED UPPER ABDOMEN: Normal. OTHER FINDINGS: None. IMPRESSION: No active disease.
[2018-08-17] MEDS: MethylPREDNISolone 40 mg Vial IV SCH ×2 (09:03→21:03)
[2018-08-17] MEDS: Micafungin 100 MG in Sodium Chloride 0.9% 100 ML IV SCH (09:06)
[2018-08-17] MEDS: Meropenem IV 1 gm in NS 1 GM/50 ML BAG IVPB SCH ×2 (09:07→21:02)
[2018-08-17] MEDS: Lidocaine 5% Patch TD SCH (09:08)
[2018-08-17] MEDS: Thiamine 100 mg/ml Inj IV SCH (09:09)
[2018-08-17] MEDS ORDERED: Enoxaparin 60 mg Syringe SC SCH (10:00)
--- NOTE | 2018-08-17 10:51 | PN ---
DATE: 08/17/2018 REASON FOR CONSULTATION AND FOLLOWUP: History of atrial fibrillation, status post right hemicolectomy, status post perforation of hollow viscus, status post exploratory laparotomy and resection of the bowel, end-to-end anastomosis, off anticoagulation. SUBJECTIVE: Patient feels tired today and heart rate beats fast. OBJECTIVE: Patient is tachycardic, heart rate is 120 and drained 900 mL from the tube, serosanguineous. VITAL SIGNS: Temperature afebrile, heart rate 117, blood pressure 145/75. HEENT: PERRLA. Extraocular muscles are intact. NECK: Supple. No carotid bruits or thyromegaly. CHEST: Clear to auscultation. HEART: S1 and S2 regular. ABDOMEN: Soft. EXTREMITIES: Clubbing and cyanosis negative. LABORATORY DATA: WBC 16.9, hemoglobin 13, hematocrit 41.8, platelet count 58. Chemistry shows sodium 140, potassium 4.4, chloride 106, carbon dioxide 13, anion gap of 10, BUN 44, creatinine 0.9. Total protein 4.12, albumin 2.2, albumin globulin ratio 1.1. Mild tenderness in abdomen at operated site noted. IMPRESSION: An 82-year-old male with past medical history significant for colostomy, history of idiopathic thrombocytopenic purpura, history of seizure disorder, hypertension, chronic atrial fibrillation, status post endovascular repair for abdominal aortic aneurysm who had cecal villous adenoma status post right hemicolectomy. Postop course is complicated with multiple times collapse of the left lung, requiring multiple times of bronchoscopy and pull of the mucous plug. Further complicated by perforation of hollow viscus status post exploratory laparotomy, end-to-end anastomosis, resection of the perforated bowel segment. This morning, the patient's WBC went up, increased again and complaining of tiredness and tachycardia. Also, patient had increased drainage to 900 mL. RECOMMENDATION: Patient was on DVT prophylaxis, but decided to increase dose for atrial fibrillation; but since the patient had increased drainage, we will increase dose of Lovenox, and if remains stable, we will start DVT from tomorrow. We will get flatbed x-ray of abdomen to rule out any re-perforation of the viscus. Overall, patient's critical long-term prognosis is extremely guarded, closely monitor in the ICU, we will follow with you. Thank you Dr. Du for providing us the opportunity in taking care of the patient, Roshan Hale. Gladis Greenfield MD
--- NOTE | 2018-08-17 11:14 | RAD ---
Date of service: 08/17/2018 HISTORY: R/o Free air, perforation of Viscus COMPARISON: None available. FINDINGS: BOWEL: Normal. No obstruction. No free air. BONES: Normal. OTHER FINDINGS: Surgical drain in the right lower quadrant IMPRESSION: No obstruction or free air.
--- NOTE | 2018-08-17 11:39 | PN ---
DATE: 08/17/2018 CRITICAL CARE PROGRESS NOTE SUBJECTIVE: This 82-year-old male remains hospitalized in CCU, bed 2 and case was reviewed in detail with critical care nurse, Ambrocio Street, registered nurse. This case was also reviewed with Dr. Rocael Du, surgeon. The patient remains weak and deconditioned with Josué-Murdock still draining copious amounts of hemorrhagic fluid from recent ileal perforation exploratory laparotomy and repair. The patient remains in atrial fibrillation rhythm on the electrical engineer mep and is tolerating diet, which at present includes clear liquids. He denied any fever, chills, chest pain or shortness of breath. PHYSICAL EXAMINATION: VITAL SIGNS: On physical exam today, his temperature was 98.9, respirations 24, pulse 122 and blood pressure 150/87 with a pulse ox of 98% on 2 L nasal O2. HEENT: Head: Normocephalic, atraumatic. Eyes: No icterus. NECK: Supple. HEART: Irregular S1, S2. LUNGS: With occasional rhonchi that clear with coughing. ABDOMEN: Soft. Josué-Murdock in place draining clear hemorrhagic fluid. Colostomy is functioning. VASCULAR: Legs warm to touch. PSYCHOLOGICAL: Alert and confused. NEURO: Deconditioned. SKIN: Without rash. LABORATORY DATA: White count 16,900, hemoglobin 13, hematocrit 41.8, platelets 58,000. Sodium 142, K 4.4, chloride 107, bicarb 30, BUN 44, creatinine 0.9, random blood sugar 159, calcium 7.7, phosphorous 2.1, bilirubin 2.5, AST 44, ALT 58 and alk phos 71. The most recent wound cultures are showing VRE and Reshma tropicalis. IMPRESSION: An 82-year-old male, status post acute renal failure, postop from a right hemicolectomy for a cecal mass, now with copious Josué-Murdock drainage from an exploratory laparotomy for ileal perforation with comorbidities of chronic obstructive pulmonary disease, status post reintubation x2 and bronchoscopy with suctioning of mucus plugging postoperatively and vancomycin-resistant Enterococcus and Reshma tropicalis in most recent wound cultures for which he is receiving daptomycin, meropenem and IV micafungin therapy. The patient also has history of seizures, chronic atrial fibrillation, hypertension, current bedridden status and deconditioning, peptic ulcer disease with gastroesophageal reflux disease and anemia of chronic disease with thrombocytopenia. He will continue on Mucomyst inhalational therapy, Cardizem, clonidine patch, daptomycin, Dilantin, Humalog insulin coverage, Lidoderm, Lopressor, subcu Lovenox, IV meropenem, IV micafungin, IV Pepcid, Pulmicort inhalational therapy, tapering doses of IV Solu-Medrol, thiamine and inhalational Xopenex. He is scheduled for consideration of transfer to long-term acute care when medically stable and this will be decided based on Infectious Disease and Dr. Rocael Du clearing the patient from his multiple medical infections. All of the above was reviewed with Dr. Du today. All questions were answered. Sara Ramirez MD MTDD
--- NOTE | 2018-08-17 11:41 | CP.PCM.PN ---
Subjective - Date & Time of Evaluation Date of Evaluation: 08/17/18 Time of Evaluation: 08:45 - Subjective Subjective: No fevers, still has poor appetite, no fevers or diarrhea. No abdominal pain. Objective - Vital Signs/Intake and Output Vital Signs (last 24 hours): Temp Pulse Resp BP Pulse Ox 97.4 F L 128 H 28 H 154/96 H 100 08/16/18 12:00 08/16/18 15:25 08/16/18 13:30 08/16/18 15:25 08/16/18 13:30 - Medications Medications: Current Medications Acetylcysteine (Acetylcysteine 20%) 4 ml IH [id number] [facility] Last Admin: 08/16/18 13:20 Dose: 4 ml Apixaban (Eliquis) 2.5 mg PO BID [facility] Last Admin: 08/09/18 10:14 Dose: Not Given Budesonide (Pulmicort Respules) 0.5 mg IH [id number] [facility] Last Admin: 08/16/18 07:54 Dose: 0.5 mg Clonidine HCl (Catapres Tts1 0.1 Mg/24 Hr) 1 patch TD Q7D@1000 [facility] Last Admin: 08/13/18 09:12 Dose: 1 patch Dextrose (Dextrose 50% Inj) 0 ml IV STAT PRN; Protocol PRN Reason: Hypoglycemia Protocol Diltiazem HCl (Cardizem) 30 mg PO QID [facility] Last Admin: 08/16/18 15:25 Dose: 30 mg Enoxaparin Sodium (Lovenox) 60 mg SC Q12 [facility]; Protocol Famotidine (Pepcid) 20 mg IVP DAILY [facility] Last Admin: 08/16/18 09:32 Dose: 20 mg Hydromorphone HCl (Dilaudid) 0.5 mg IVP Q4H PRN PRN Reason: Pain, moderate (4-7) Last Admin: 08/15/18 22:55 Dose: 0.5 mg Dextrose (Dextrose 5% In Water 1000 Ml) 1,000 mls @ 0 mls/hr IV .Q0M PRN; Protocol PRN Reason: Hypoglycemia Protocol Meropenem (Merrem Iv 1 Gm Premix) 1 gm in 50 mls @ 100 mls/hr IVPB Q12 [facility]; Protocol Stop: 08/20/18 10:01 Last Admin: 08/16/18 09:31 Dose: 100 mls/hr Daptomycin 390 mg/ Sodium (Chloride) 100 mls @ 200 mls/hr IV Q24H [facility] Stop: 08/20/18 11:46 Last Admin: 08/16/18 12:50 Dose: 200 mls/hr Micafungin Sodium 100 mg/ (Sodium Chloride) 100 mls @ 100 mls/hr IV DAILY [facility]; Protocol Stop: 08/24/18 13:01 Last Admin: 08/16/18 09:31 Dose: 100 mls/hr Insulin Human Lispro (Humalog Low) 0 units SC ACHS [facility]; Protocol Last Admin: 08/16/18 13:55 Dose: 1 u Levalbuterol HCl (Xopenex) 1.25 mg IH [id number] [facility] Last Admin: 08/16/18 13:20 Dose: 1.25 mg Lidocaine (Lidoderm) 1 ea TD DAILY [facility] Last Admin: 08/16/18 09:30 Dose: 1 ea Methylprednisolone (Solu-Medrol) 20 mg IV Q12H [facility] Last Admin: 08/16/18 09:37 Dose: 20 mg Metoprolol Tartrate (Lopressor) 25 mg PO BID [facility] Last Admin: 08/16/18 09:31 Dose: 25 mg Phenytoin (Dilantin) 100 mg PO Q8 [facility] Last Admin: 08/16/18 15:23 Dose: 100 mg Thiamine HCl (Vitamin B1 Inj) 100 mg IV DAILY [facility] Last Admin: 08/16/18 09:32 Dose: 100 mg Verapamil HCl (Verapamil Inj) 2.5 mg IVP Q6H PRN PRN Reason: for heart ratye >120 - Labs Labs: 08/16/18 05:30 08/16/18 05:30 PT 14.5 SECONDS (9.4-12.5) H 08/11/18 12:50 INR 1.26 08/11/18 12:50 APTT 33.2 Seconds (25.1-36.5) 08/11/18 12:50 - Constitutional Appears: Non-toxic, No Acute Distress, Chronically Ill - Head Exam Head Exam: NORMAL INSPECTION - Respiratory Exam Respiratory Exam: Decreased Breath Sounds - Cardiovascular Exam Cardiovascular Exam: +S1, +S2 - GI/Abdominal Exam GI & Abdominal Exam: Soft. absent: Tenderness Additional comments: surgical scars with jerardo in place, right sided RUSSELL drain with serous discharge Assessment and Plan - Assessment and Plan (Free Text) Plan: Assessment sepsis S/P VDRF due to perforated ileum S/P ex-lap and resection of terminal ileum and primary anastomosis, growing VRE and C. tropicalis S/P treatment for HCAP rectal cancer atrial fibrillation GERD anxiety disorder chronic CHF CAD Plan continue Daptomycin, Merrem and Mycamine and will continue to monitor clinically and trend WBC count, as well as monitor RUSSELL drain output
--- NOTE | 2018-08-17 15:55 | CP.PCM.PN ---
Subjective - Date & Time of Evaluation Date of Evaluation: 08/17/18 Time of Evaluation: 07:15 - Subjective Subjective: Patient seen and examined. Reports feeling tired. 900cc/24hrs of serosanguinous drainage expressed from RUSSELL drain. Tolerating diet. Objective - Vital Signs/Intake and Output Vital Signs (last 24 hours): Temp Pulse Resp BP Pulse Ox 98.9 F 97 H 24 140/62 98 08/17/18 04:00 08/17/18 15:47 08/17/18 04:00 08/17/18 15:47 08/17/18 04:00 Intake and Output: 08/17/18 08/17/18 06:59 18:59 Intake Total 370 Output Total 1390 Balance -1020 - Medications Medications: Current Medications Acetylcysteine (Acetylcysteine 20%) 4 ml IH [id number] [facility] Last Admin: 08/17/18 13:16 Dose: 4 ml Apixaban (Eliquis) 2.5 mg PO BID [facility] Last Admin: 08/09/18 10:14 Dose: Not Given Budesonide (Pulmicort Respules) 0.5 mg IH [id number] [facility] Last Admin: 08/17/18 07:51 Dose: 0.5 mg Clonidine HCl (Catapres Tts1 0.1 Mg/24 Hr) 1 patch TD Q7D@1000 [facility] Last Admin: 08/13/18 09:12 Dose: 1 patch Diltiazem HCl (Cardizem) 30 mg PO QID [facility] Last Admin: 08/17/18 15:47 Dose: 30 mg Enoxaparin Sodium (Lovenox) 60 mg SC Q12 [facility]; Protocol Last Admin: 08/17/18 09:10 Dose: Not Given Enoxaparin Sodium (Lovenox) 30 mg SC DAILY [facility]; Protocol Famotidine (Pepcid) 20 mg IVP DAILY [facility] Last Admin: 08/17/18 09:08 Dose: 20 mg Hydromorphone HCl (Dilaudid) 0.5 mg IVP Q4H PRN PRN Reason: Pain, moderate (4-7) Last Admin: 08/15/18 22:55 Dose: 0.5 mg Meropenem (Merrem Iv 1 Gm Premix) 1 gm in 50 mls @ 100 mls/hr IVPB Q12 [facility]; Protocol Stop: 08/20/18 10:01 Last Admin: 08/17/18 09:07 Dose: 100 mls/hr Daptomycin 390 mg/ Sodium (Chloride) 100 mls @ 200 mls/hr IV Q24H [facility] Stop: 08/20/18 11:46 Last Admin: 08/17/18 12:30 Dose: 200 mls/hr Micafungin Sodium 100 mg/ (Sodium Chloride) 100 mls @ 100 mls/hr IV DAILY [facility]; Protocol Stop: 08/24/18 13:01 Last Admin: 08/17/18 09:06 Dose: 100 mls/hr Insulin Human Lispro (Humalog Low) 0 units SC ACHS [facility]; Protocol Last Admin: 08/17/18 11:53 Dose: Not Given Lidocaine (Lidoderm) 1 ea TD DAILY [facility] Last Admin: 08/17/18 09:08 Dose: 1 ea Methylprednisolone (Solu-Medrol) 20 mg IV Q12H [facility] Last Admin: 08/17/18 09:03 Dose: 20 mg Metoprolol Tartrate (Lopressor) 25 mg PO BID [facility] Last Admin: 08/17/18 09:07 Dose: 25 mg Phenytoin (Dilantin) 100 mg PO Q8 [facility] Last Admin: 08/17/18 15:47 Dose: 100 mg Thiamine HCl (Vitamin B1 Inj) 100 mg IV DAILY [facility] Last Admin: 08/17/18 09:09 Dose: 100 mg Verapamil HCl (Verapamil Inj) 2.5 mg IVP Q6H PRN PRN Reason: for heart ratye >120 Last Admin: 08/17/18 05:27 Dose: 2.5 mg - Labs Labs: 08/17/18 05:50 08/17/18 05:50 PT 14.5 SECONDS (9.4-12.5) H 08/11/18 12:50 INR 1.26 08/11/18 12:50 APTT 33.2 Seconds (25.1-36.5) 08/11/18 12:50 - Constitutional Appears: No Acute Distress - Head Exam Head Exam: NORMOCEPHALIC - Eye Exam Eye Exam: EOMI, Normal appearance - ENT Exam ENT Exam: Mucous Membranes Moist - Cardiovascular Exam Cardiovascular Exam: Tachycardia Additional comments: Afib - Neurological Exam Neurological Exam: Alert, Awake, Oriented x3 - Psychiatric Exam Psychiatric exam: Normal Mood - Skin Skin Exam: Dry, Intact, Warm Assessment and Plan - Assessment and Plan (Free Text) Assessment: 82M s/p ex lap for ileal perforation POD6 Plan: Continue with liquid diet as tolerating Encourage IS use Continue to monitor Fabian output F/u peritoneal fluid BUN/Cr Continue IV ABx per ID F/u cardiology recs Prognosis guarded Further recommendations per Dr. Florian Aly PGY3
[2018-08-17] MEDS ORDERED: Sodium Chloride 0.9% 250 ML IV STA (18:32)
[2018-08-17] MEDS: Levalbuterol 1.25 MG/3 ML Inhal Soln UD IH PRN (20:46)
[2018-08-17] MEDS: Dextrose 5%/0.45% NS 1,000 ML IV SCH (20:54)
--- NOTE | 2018-08-18 01:41 | PN ---
DATE: 08/17/2018 SUBJECTIVE: The patient is 82 years old, seen and examined. Tolerating his diet. No chest pain. No shortness of breath. He has left periorbital bruise, seems to be improving. PHYSICAL EXAMINATION VITAL SIGNS: He is afebrile, pulse 115, respirations 20, and blood pressure 134/65. LUNGS: Bilateral fair airflow. A few soft crackles in upper lung region. HEENT: S1 and S2 audible. ABDOMEN: Soft. Colostomy is functional. Drain was just emptied. Has [place] catheter. Urine seems to be draining and is clear. LABORATORY DATA: WBC 16.9, hemoglobin 13, hematocrit 41.8, platelets of 58. Chemistry: Sodium 142, potassium 4.4, chloride 107, CO2 30, BUN 44, creatinine 0.9, and blood sugar 239. 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 His x-ray of the abdomen is negative. No obstruction is seen. ASSESSMENT: 1. Status post respiratory failure. 2. Revision of laparotomy and had ileal resection and end-to-end anastomosis done. 3. Thrombocytopenia. 4. Leukocytosis. This is a new bump in white count. PLAN: The patient is currently on Cardizem. He is on clonidine, daptomycin and on Eliquis. Change Cardizem to Cardizem CD and increase the dose because he is still tachycardic. We will monitor his WBC count. Currently, he is on meropenem and micafungin. He is on small dose of steroids. We will continue that and follow up his electrolyte, CBC and CMP in a.m. Tri Fleming MD
[2018-08-18] MEDS: Acetylcysteine 20% Inhal Soln (4ml) IH SCH ×4 (03:04→20:37)
[2018-08-18] MEDS: Levalbuterol 1.25 MG/3 ML Inhal Soln UD IH PRN (03:05)
[2018-08-18] MEDS: Phenytoin 100 mg/4 ml Oral Susp UD PO SCH ×3 (07:00→21:00)
[2018-08-18 07:11] LABS: EOS % 0.2 % (1.5-5.0); GRAN # 11.49 (1.4-6.5); GRAN % 93.2 % (50.0-68.0); HEMOGLOBIN 11.3 g/dL (14.0-18.0); LYMPH # 0.4 (1.2-3.4); LYMPH % 3.4 % (22.0-35.0); MEAN CELL VOLUME 93.6 fl (80.0-105.0); MEAN CORPUSCULAR HEMOGLOBIN 29.1 pg (25.0-35.0); MEAN CORPUSCULAR HGB CONC 31.1 g/dl (31.0-37.0); MONO # 0.4 (0.1-0.6); MONO % 3.2 % (1.0-6.0); PLATELET COUNT 57 10^3/uL (120.0-450.0); RBC 3.88 10^6/uL (3.5-6.1); RED CELL DISTRIBUTION WIDTH 15.8 % (11.5-14.5); WHITE BLOOD COUNT 12.3 10^3/uL (4.5-11.0)
[2018-08-18 07:31] LABS: ALB/GLOB RATIO 1.1 (1.1-1.8); ALBUMIN 2.1 g/dL (3.0-4.8); ALT/SGPT 53 U/L (7-56); AST/SGOT 40 U/L (17-59); BLOOD UREA NITROGEN 45 mg/dL (7-21); CALCIUM 7.6 mg/dL (8.4-10.5); GFR NON-AFRICAN AMERICAN > 60
--- NOTE | 2018-08-18 07:36 | PN ---
DATE: 08/18/2018 PULMONARY NOTE SUBJECTIVE: The patient appears comfortable this morning. He is not short of breath at rest. PHYSICAL EXAMINATION: VITAL SIGNS: Last temperature recorded is 98.5, pulse on the monitor is 98, respiratory rate 20, blood pressure 134/65. Oxygen saturation on nasal cannula is 97%. HEENT: Normocephalic, atraumatic. No JVD. CARDIOVASCULAR: Systolic ejection murmur at the lower left sternal border. Questionable S3 gallop. LUNGS: Decreased breath sounds at the bases. Much less/minimal rhonchi. No wheezing. EXTREMITIES: Mild edema. No cyanosis, no clubbing. Calves are nontender to palpation. GASTROINTESTINAL: Abdomen is postoperative. It is soft. It is less distended and less tender to palpation. SKIN: No acute rash. NEUROLOGIC: Limited at the present time. PERTINENT LABORATORY DATA: Chest x-ray was done this morning and reviewed. There is continued increased aeration noted to the left lung. There are no significant effusions. There is less right lower lobe "haziness." IMPRESSION: 1. Intra-abdominal perforation. 2. Status post right hemicolectomy. 3. Recurrent left lung atelectasis. 4. Chronic obstructive pulmonary disease. 5. Congestive heart failure. 6. Atrial fibrillation. 7. Anemia, thrombocytopenia. PLAN: The patient appears comfortable this morning. He is not short of breath at rest. He does state to feeling much better overall. I did discuss the case with the night nurse at length. The night nurse stated that the patient had a good night. I did review the chest x-ray from this morning. The chest x-ray continues to improve-- with a significant increase in aeration noted to the left lung. On physical exam, there is certainly less bronchospasm noted. In addition, the alveolar-arterial gradient is also much less. I will continue with the current nebulizer treatments and low-dose intravenous steroids for now. Inputs by Renal and Infectious Disease are noted. Input by Surgery is also noted. Clinical status of the patient is significantly improved - compared to last week. The future status/prognosis for this patient does remain guarded. I will discuss the above with the entire ICU team in the next few moments. I will also discuss the above with the attending physician. Rosalio Blevins MD [facility] # [id number] [place]
[2018-08-18] MEDS: Insulin Lispro (humaLOG) LOW Coverage SC SCH ×4 (08:02→22:10)
[2018-08-18] MEDS: Budesonide 0.5 mg/2 ml Inhal Susp UD IH SCH ×2 (08:12→20:39)
[2018-08-18] MEDS: Levalbuterol 0.63 MG/3 ML Inhal Soln UD IH SCH ×3 (08:12→20:38)
[2018-08-18 08:14] LABS: MONOCYTE 1 % (1.0-6.0); NEUTROPHIL 99 % (50.0-70.0)
[2018-08-18 08:15] LABS: PLATELET ESTIMATE LOW (NORMAL)
--- NOTE | 2018-08-18 09:04 | RAD ---
Date of service: 08/18/2018 HISTORY: follow up COMPARISON: 08/17/2018 FINDINGS: LUNGS: No active pulmonary disease. PLEURA: Small pleural effusions CARDIOVASCULAR: Aortic calcification Moderate cardiomegaly no pulmonary vascular congestion. OSSEOUS STRUCTURES: No significant abnormalities. VISUALIZED UPPER ABDOMEN: Normal. OTHER FINDINGS: None. IMPRESSION: Small pleural effusions
[2018-08-18] MEDS: diltiaZEM 180 mg/24 Hours CD Cap PO SCH (09:25)
[2018-08-18] MEDS: Meropenem IV 1 gm in NS 1 GM/50 ML BAG IVPB SCH ×2 (09:26→21:00)
[2018-08-18] MEDS: Lidocaine 5% Patch TD SCH (09:26)
[2018-08-18] MEDS: Enoxaparin 30 mg Syringe SC SCH (09:26)
[2018-08-18] MEDS: MethylPREDNISolone 40 mg Vial IV SCH ×2 (09:26→21:00)
[2018-08-18] MEDS: Thiamine 100 mg/ml Inj IV SCH (09:27)
--- NOTE | 2018-08-18 11:18 | CP.PCM.PN ---
Subjective - Date & Time of Evaluation Date of Evaluation: 08/18/18 Time of Evaluation: 08:35 - Subjective Subjective: Appetite still not as good, no fevers, no increase in abdominal pain. Objective - Vital Signs/Intake and Output Vital Signs (last 24 hours): Temp Pulse Resp BP Pulse Ox 98.9 F 122 H 24 150/87 98 08/17/18 04:00 08/17/18 09:08 08/17/18 04:00 08/17/18 09:08 08/17/18 04:00 Intake and Output: 08/17/18 08/17/18 06:59 18:59 Intake Total 370 Output Total 1390 Balance -1020 - Medications Medications: Current Medications Acetylcysteine (Acetylcysteine 20%) 4 ml IH [id number] [facility] Last Admin: 08/17/18 07:51 Dose: 4 ml Apixaban (Eliquis) 2.5 mg PO BID [facility] Last Admin: 08/09/18 10:14 Dose: Not Given Budesonide (Pulmicort Respules) 0.5 mg IH [id number] [facility] Last Admin: 08/17/18 07:51 Dose: 0.5 mg Clonidine HCl (Catapres Tts1 0.1 Mg/24 Hr) 1 patch TD Q7D@1000 [facility] Last Admin: 08/13/18 09:12 Dose: 1 patch Diltiazem HCl (Cardizem) 30 mg PO QID [facility] Last Admin: 08/17/18 09:08 Dose: 30 mg Enoxaparin Sodium (Lovenox) 60 mg SC Q12 [facility]; Protocol Last Admin: 08/17/18 09:10 Dose: Not Given Enoxaparin Sodium (Lovenox) 30 mg SC DAILY [facility]; Protocol Famotidine (Pepcid) 20 mg IVP DAILY [facility] Last Admin: 08/17/18 09:08 Dose: 20 mg Hydromorphone HCl (Dilaudid) 0.5 mg IVP Q4H PRN PRN Reason: Pain, moderate (4-7) Last Admin: 08/15/18 22:55 Dose: 0.5 mg Meropenem (Merrem Iv 1 Gm Premix) 1 gm in 50 mls @ 100 mls/hr IVPB Q12 [facility]; Protocol Stop: 08/20/18 10:01 Last Admin: 08/17/18 09:07 Dose: 100 mls/hr Daptomycin 390 mg/ Sodium (Chloride) 100 mls @ 200 mls/hr IV Q24H [facility] Stop: 08/20/18 11:46 Last Admin: 08/16/18 12:50 Dose: 200 mls/hr Micafungin Sodium 100 mg/ (Sodium Chloride) 100 mls @ 100 mls/hr IV DAILY [facility]; Protocol Stop: 08/24/18 13:01 Last Admin: 08/17/18 09:06 Dose: 100 mls/hr Insulin Human Lispro (Humalog Low) 0 units SC ACHS [facility]; Protocol Last Admin: 08/17/18 08:59 Dose: Not Given Levalbuterol HCl (Xopenex) 1.25 mg IH [id number] [facility] Last Admin: 08/17/18 07:51 Dose: 1.25 mg Lidocaine (Lidoderm) 1 ea TD DAILY [facility] Last Admin: 08/17/18 09:08 Dose: 1 ea Methylprednisolone (Solu-Medrol) 20 mg IV Q12H [facility] Last Admin: 08/17/18 09:03 Dose: 20 mg Metoprolol Tartrate (Lopressor) 25 mg PO BID [facility] Last Admin: 08/17/18 09:07 Dose: 25 mg Phenytoin (Dilantin) 100 mg PO Q8 [facility] Last Admin: 08/17/18 05:26 Dose: 100 mg Thiamine HCl (Vitamin B1 Inj) 100 mg IV DAILY [facility] Last Admin: 08/17/18 09:09 Dose: 100 mg Verapamil HCl (Verapamil Inj) 2.5 mg IVP Q6H PRN PRN Reason: for heart ratye >120 Last Admin: 08/17/18 05:27 Dose: 2.5 mg - Labs Labs: 08/17/18 05:50 08/17/18 05:50 PT 14.5 SECONDS (9.4-12.5) H 08/11/18 12:50 INR 1.26 08/11/18 12:50 APTT 33.2 Seconds (25.1-36.5) 08/11/18 12:50 - Constitutional Appears: No Acute Distress, Chronically Ill - Head Exam Head Exam: NORMAL INSPECTION - Neck Exam Neck Exam: absent: Meningismus - Respiratory Exam Respiratory Exam: Decreased Breath Sounds - Cardiovascular Exam Cardiovascular Exam: +S1, +S2 - GI/Abdominal Exam GI & Abdominal Exam: Soft. absent: Tenderness Additional comments: right sided RUSSELL drain in place; jerardo over clean surgical scars in place Assessment and Plan - Assessment and Plan (Free Text) Plan: Assessment sepsis S/P VDRF due to perforated ileum S/P ex-lap and resection of terminal ileum and primary anastomosis, growing VRE and C. tropicalis POD #7 S/P treatment for HCAP rectal cancer atrial fibrillation GERD anxiety disorder chronic CHF CAD Plan continue Daptomycin, Merrem and Mycamine and will continue to monitor clinically and trend WBC count, as well as monitor RUSSELL drain output
--- NOTE | 2018-08-18 12:07 | PN ---
DATE: 08/18/2018 REASON FOR CONSULTATION AND FOLLOWUP: History of atrial fibrillation status post right hemicolectomy, status post perforation of the hollow viscus, status post exploratory laparotomy and resection of bowel and end-to-end anastomosis, off anticoagulation. PHYSICAL EXAMINATION: VITAL SIGNS: Temperature afebrile, heart rate 102, blood pressure 129/58. HEENT: PERRLA. Extraocular muscles intact. NECK: Supple. No carotid bruits or thyromegaly. CHEST: Clear to auscultation. HEART: S1 and S2 regular. ABDOMEN: Soft. EXTREMITIES: Clubbing and cyanosis negative. LABORATORY DATA: Blood workup as follows: WBC 12.3, hemoglobin 11.8, hematocrit 36.3, platelet count 57,000. Chemistry shows sodium 140, potassium 4.4, chloride 108, carbon dioxide 28, anion gap of 9, BUN 45, creatinine 0.9. IMPRESSION: This is an 82-year-old male with past medical history of status post colostomy in the past, history of endovascular repair for abdominal aortic aneurysm. 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 Postop course was complicated by multiple times collapse of the left lung requiring multiple times bronchoscopy and pulled the mucous plug. As far as the hospital course is complicated by perforation of hollow viscus, post exploratory laparotomy status post laparotomy, redo exploratory laparotomy and resection of the bowel with perforated segment and end-to-end anastomosis. Patient has atrial fibrillation yesterday to do Lovenox anticoagulation for atrial fibrillation, but patient has increased to 900 mL, so Lovenox was on hold for DVT prophylaxis from today. Last night, drainage was only 150 mL, so plan is to restart anticoagulation, increase nutritional support as tolerated and start Cardizem 1 to 2 mg daily. Continue to hold Eliquis. Continue to hold enoxaparin for therapeutic dose, we will start 30 mg subcutaneous, monitor overall. Patient's condition is critical. Long-term prognosis is extremely guarded. We will follow with you. Severe protein-calorie malnutrition, we will increase some Glucerna. Follow up closely. Thank you Dr. Du/Dr. Fleming for providing us the opportunity in taking care of the patient, Roshan Hale. Gladis Greenfield MD
--- NOTE | 2018-08-18 12:16 | PN ---
DATE: 08/18/2018 SUBJECTIVE: The patient is 82 years old, seen and examined, lying in bed. Seems to be comfortable. Tolerating diet. Does become hypoxic at times and holding oxygen, saturation to 85-90% on 2 L nasal cannula. PHYSICAL EXAMINATION: VITAL SIGNS: He is afebrile, pulse 102, respirations 18, blood pressure 130/60. LUNGS: Bilateral decreased breath sound at bases. HEART: S1 and S2 audible. Irregular rate and a little tachycardic. ABDOMEN: Soft. Colostomy is functional. EXTREMITIES: Bilateral leg, no edema. LABORATORY EXAM: WBC is 12.3, hemoglobin 11.3, hematocrit 36.3, platelets 67. Chemistry: Sodium 140, potassium 4.4, chloride 108, CO2 of 28, BUN 45, creatinine 0.9, blood sugar of 158. The abdominal aspirate growing VRE and Reshma tropicalis. ASSESSMENT: 1. Status post laparotomy. 2. Status post ileal resection and end-to-end anastomosis. 3. Right hemicolectomy. 4. Hypertension. 5. Status post respiratory failure, seems to be stable now. 6. Thrombocytopenia. 7. Seizure disorder. PLAN: Currently, the patient is on diltiazem. He is on daptomycin. He is tolerating food. We will discontinue IV fluids. Continue him on his phenytoin, analgesic. His Eliquis is still on hold. However, he is being given Lovenox for DVT prophylaxis. He is on meropenem. He is on IV steroids. He is on micafungin. Getting nebulizer treatment. He can be transferred to remote tele if the bed is available. Tri Fleming MD
--- NOTE | 2018-08-18 12:20 | CP.PCM.PCO ---
Physician Communication Note - Physician Communication Note Physician Communication Note: Xoppenex related Tachycardia readjusted/Rx Diet/?CT if Indicated
[2018-08-18] MEDS: Micafungin 100 MG in Sodium Chloride 0.9% 100 ML IV SCH (13:34)
--- NOTE | 2018-08-18 16:23 | PN ---
DATE: 08/18/2018 CRITICAL CARE PROGRESS NOTE SUBJECTIVE: This 82-year-old male was examined at his bedside. This case was reviewed with critical care nurse, Laurie Rashid, registered nurse. The patient is sitting in his bed. He is wearing nasal O2. He is alert and oriented and had physical therapists at his bedside. They informed me that with the slightest movement, he becomes hypoxemic and desaturates to O2 saturations in the 80s. The patient on the monitor was in an atrial fibrillation rhythm. He denied any fever, chills or chest pain. PHYSICAL EXAMINATION: VITAL SIGNS: Temperature was 98.2, respirations 16, pulse 102 and blood pressure 129/53. Pulse ox 88% with exertion, wearing 2 liters nasal O2. HEENT: Head: Normocephalic, atraumatic. Eyes: No icterus. Ears: Clear. Throat: Noninjected. NECK: Supple. HEART: Irregular S1, S2. LUNGS: Decreased breath sounds at both bases. ABDOMEN: Soft. EXTREMITIES: No edema. SKIN: Without rash. NEUROLOGICAL: Deconditioned. VASCULAR: Legs warm to touch. PSYCHOLOGICAL: Alert with periods of confusion at times. LABORATORY DATA: White count 12,300, hemoglobin 11.3, hematocrit 36.3, platelets 57,000. Sodium 140, potassium 4.4, chloride 108, bicarb 28, BUN 45, creatinine 0.9, random blood sugar 135, calcium 7.6, phosphorous 2.7, magnesium 1.9. Bilirubin 1.5. DIAGNOSTIC DATA: Chest x-ray was reviewed. It shows bilateral pleural effusions. There is moderate cardiomegaly, no evidence of pulmonary vascular congestion. IMPRESSION: An 82-year-old male, status post right hemicolectomy for cecal mass, also with postoperative course complicated by perforated ileum that required surgical repair and comorbidities of acute renal failure improved, prerenal azotemia secondary to IV steroids and comorbidities of bilateral pleural effusions, chronic atrial fibrillation, chronic obstructive pulmonary disease, chronic hypertension, hyperglycemia, seizure syndrome and wound cultures growing vancomycin-resistant Enterococcus and Reshma tropicalis along with degenerative arthritis, deconditioning and peptic ulcer disease with gastroesophageal reflux disease, anemia of chronic disease and thrombocytopenia. The patient will continue on Mucomyst inhalational therapy, Cardizem, clonidine, daptomycin, Dilantin, Humalog, Lidoderm, Lopressor, subcu Lovenox, IV meropenem, IV micafungin, Pepcid, Pulmicort inhalational therapy, tapering steroids and thiamine and Xopenex inhalational therapy. I have asked the nurse to remove his Mcintosh and I will start low-dose Lasix for mobilization of pleural effusions, management of hypertension, congestive heart failure and exertional dyspnea. I have asked the nurse to discuss O2 management with Dr. Rosalio Blevins from Pulmonary, and the patient does have an order for BiPAP, CPAP settings as well as nasal O2. Based on clinical progress, additional diagnostic workup and testings will be entertained. All of the above was reviewed with nursing at bedside. All questions were answered. Sara Ramirez MD MTDD
[2018-08-18] MEDS: Dextrose 5%/0.45% NS 1,000 ML IV SCH (17:07)
[2018-08-19] MEDS: Levalbuterol 0.63 MG/3 ML Inhal Soln UD IH SCH ×4 (02:43→20:36)
[2018-08-19] MEDS: Acetylcysteine 20% Inhal Soln (4ml) IH SCH ×4 (02:43→20:36)
[2018-08-19] MEDS: Phenytoin 100 mg/4 ml Oral Susp UD PO SCH ×3 (06:01→21:32)
--- NOTE | 2018-08-19 06:07 | CP.PCM.PN ---
Subjective - Date & Time of Evaluation Date of Evaluation: 08/18/18 Time of Evaluation: 07:05 - Subjective Subjective: Patient seen and examined. NAEO. Tolerating diet. 150cc/24 hr serous. Objective - Vital Signs/Intake and Output Vital Signs (last 24 hours): Temp Pulse Resp BP Pulse Ox 97.5 F L 90 16 119/65 100 08/19/18 00:00 08/19/18 03:00 08/19/18 03:00 08/19/18 03:00 08/19/18 03:00 Intake and Output: 08/18/18 08/19/18 18:59 06:59 Output Total 655 50 Balance -655 -50 - Medications Medications: Current Medications Acetylcysteine (Acetylcysteine 20%) 4 ml IH [id number] [facility] Last Admin: 08/19/18 02:43 Dose: 4 ml Apixaban (Eliquis) 2.5 mg PO BID [facility] Last Admin: 08/09/18 10:14 Dose: Not Given Budesonide (Pulmicort Respules) 0.5 mg IH [id number] [facility] Last Admin: 08/18/18 20:39 Dose: 0.5 mg Clonidine HCl (Catapres Tts1 0.1 Mg/24 Hr) 1 patch TD Q7D@1000 [facility] Last Admin: 08/13/18 09:12 Dose: 1 patch Diltiazem HCl (Cardizem Cd) 180 mg PO DAILY [facility] Last Admin: 08/18/18 09:25 Dose: 180 mg Enoxaparin Sodium (Lovenox) 60 mg SC Q12 [facility]; Protocol Last Admin: 08/17/18 09:10 Dose: Not Given Enoxaparin Sodium (Lovenox) 30 mg SC DAILY [facility]; Protocol Last Admin: 08/18/18 09:26 Dose: 30 mg Famotidine (Pepcid) 20 mg IVP DAILY [facility] Last Admin: 08/18/18 09:26 Dose: 20 mg Furosemide (Lasix) 20 mg IV DAILY [facility] Last Admin: 08/18/18 11:46 Dose: 20 mg Hydromorphone HCl (Dilaudid) 0.5 mg IVP Q4H PRN PRN Reason: Pain, moderate (4-7) Last Admin: 08/15/18 22:55 Dose: 0.5 mg Meropenem (Merrem Iv 1 Gm Premix) 1 gm in 50 mls @ 100 mls/hr IVPB Q12 [facility]; Protocol Stop: 08/20/18 10:01 Last Admin: 08/18/18 21:00 Dose: 100 mls/hr Daptomycin 390 mg/ Sodium (Chloride) 100 mls @ 200 mls/hr IV Q24H [facility] Stop: 08/20/18 11:46 Last Admin: 08/18/18 12:30 Dose: 200 mls/hr Micafungin Sodium 100 mg/ (Sodium Chloride) 100 mls @ 100 mls/hr IV DAILY [facility]; Protocol Stop: 08/24/18 13:01 Last Admin: 08/18/18 13:34 Dose: 100 mls/hr Dextrose/Sodium Chloride (Dextrose 5%/0.45% Ns 1000 Ml) 1,000 mls @ 50 mls/hr IV .Q20H [facility] Last Admin: 08/18/18 17:07 Dose: 50 mls/hr Insulin Human Lispro (Humalog Low) 0 units SC ACHS [facility]; Protocol Last Admin: 08/18/18 22:10 Dose: Not Given Levalbuterol HCl (Xopenex) 0.63 mg IH [id number] [facility] Last Admin: 08/19/18 02:43 Dose: 0.63 mg Lidocaine (Lidoderm) 1 ea TD DAILY [facility] Last Admin: 08/18/18 09:26 Dose: 1 ea Methylprednisolone (Solu-Medrol) 20 mg IV Q12H [facility] Last Admin: 08/18/18 21:00 Dose: 20 mg Metoprolol Tartrate (Lopressor) 25 mg PO BID [facility] Last Admin: 08/18/18 09:26 Dose: 25 mg Phenytoin (Dilantin) 100 mg PO Q8 [facility] Last Admin: 08/19/18 06:01 Dose: 100 mg Thiamine HCl (Vitamin B1 Inj) 100 mg IV DAILY [facility] Last Admin: 08/18/18 09:27 Dose: 100 mg Verapamil HCl (Verapamil Inj) 2.5 mg IVP Q6H PRN PRN Reason: for heart ratye >120 Last Admin: 08/17/18 05:27 Dose: 2.5 mg - Labs Labs: 08/18/18 05:30 08/18/18 05:30 PT 14.5 SECONDS (9.4-12.5) H 08/11/18 12:50 INR 1.26 08/11/18 12:50 APTT 33.2 Seconds (25.1-36.5) 08/11/18 12:50 - Constitutional Appears: No Acute Distress - Head Exam Head Exam: NORMOCEPHALIC - Eye Exam Eye Exam: EOMI, Normal appearance - ENT Exam ENT Exam: Mucous Membranes Moist - Cardiovascular Exam Cardiovascular Exam: +S1, +S2 - GI/Abdominal Exam GI & Abdominal Exam: Soft - Neurological Exam Neurological Exam: Alert, Awake, Oriented x3 - Psychiatric Exam Psychiatric exam: Normal Mood - Skin Skin Exam: Dry, Intact, Warm Assessment and Plan - Assessment and Plan (Free Text) Assessment: 82M s/p ex lap for ileal perforation POD7 Plan: HHD Encourage IS use C/w breathing treatments Continue to monitor Fabian output F/u peritoneal fluid BUN/Cr: normal F/u peritoneal fluid cultures Continue IV ABx per ID F/u cardiology recs Prognosis guarded Further recommendations per Dr. Florian Aly PGY3
--- NOTE | 2018-08-19 07:00 | PN ---
DATE: 08/19/2018 PULMONARY NOTE SUBJECTIVE: The patient appears comfortable this morning. He is not short of breath at rest. PHYSICAL EXAMINATION: VITAL SIGNS: Temperature is 97.5, pulse is 90, respirations 16, blood pressure 119/65. Oxygen saturation on nasal cannula is 100%. HEENT: Normocephalic, atraumatic. No JVD. CARDIOVASCULAR: Systolic ejection murmur at the lower left sternal border. Questionable S3 gallop. LUNGS: Better breath sounds at the bases. Much less/minimal rhonchi. No wheezing. EXTREMITIES: Mild edema. No cyanosis. No clubbing. Calves are nontender to palpation. GI: Abdomen is postoperative. It is soft. It is less distended and less tender to palpation. SKIN: No acute rash. NEUROLOGIC: Limited at the present time. IMPRESSION: 1. Intra-abdominal perforation. 2. Status post right hemicolectomy. 3. Recurrent left lung atelectasis. 4. Chronic obstructive pulmonary disease. 5. Congestive heart failure. 6. Atrial fibrillation. 7. Anemia, thrombocytopenia. PLAN: The patient appears quite comfortable this morning. He is not short of breath at rest. He does state to feeling much, much better overall. I did discuss the case with the night nurse at length. The night nurse stated that the patient had a good night. On physical exam, his bronchospasm continues to resolve. In addition, the oxygen saturation on nasal cannula is now 100%. I will continue with the current nebulizer treatments and low-dose intravenous steroids for now. I will also continue with the chest percussion therapy and suctioning. Last chest x-ray done on the patient was yesterday. Findings are noted in my assessment yesterday. Overall, the chest x-rays have significantly improved compared to last week and the week before. Inputs by Infectious Disease, Renal and Cardiology are also noted. Clinical status of the patient is significantly improved - compared to a few weeks ago. However, the future status/prognosis for this patient does remain guarded. I will discuss the above with the entire ICU team in the next few moments. I will also discuss the above with the attending physician. Rosalio Blevins MD [facility] # [id number] [place]
[2018-08-19] MEDS: Budesonide 0.5 mg/2 ml Inhal Susp UD IH SCH ×2 (07:17→20:36)
[2018-08-19] MEDS: Insulin Lispro (humaLOG) LOW Coverage SC SCH ×4 (07:30→22:36)
--- NOTE | 2018-08-19 08:48 | CP.PCM.PN ---
Subjective - Date & Time of Evaluation Date of Evaluation: 08/19/18 Time of Evaluation: 08:48 - Subjective Subjective: General Surgery Dr. Du Pt S&E @bedside. NAEO. pt has no complaints this AM. denies abd pain, F/C, N/V. tolerating HHD. (+)ostomy output Mayra drain: 300cc x24hrs serous Objective - Vital Signs/Intake and Output Vital Signs (last 24 hours): Temp Pulse Resp BP Pulse Ox 97.5 F L 92 H 18 125/68 97 08/19/18 00:00 08/19/18 08:00 08/19/18 08:00 08/19/18 08:00 08/19/18 08:00 Intake and Output: 08/19/18 08/19/18 06:59 18:59 Intake Total 600 Output Total 200 Balance 400 - Medications Medications: Current Medications Acetylcysteine (Acetylcysteine 20%) 4 ml IH [id number] [facility] Last Admin: 08/19/18 07:17 Dose: 4 ml Apixaban (Eliquis) 2.5 mg PO BID [facility] Last Admin: 08/09/18 10:14 Dose: Not Given Budesonide (Pulmicort Respules) 0.5 mg IH [id number] [facility] Last Admin: 08/19/18 07:17 Dose: 0.5 mg Clonidine HCl (Catapres Tts1 0.1 Mg/24 Hr) 1 patch TD Q7D@1000 [facility] Last Admin: 08/13/18 09:12 Dose: 1 patch Diltiazem HCl (Cardizem Cd) 180 mg PO DAILY [facility] Last Admin: 08/18/18 09:25 Dose: 180 mg Enoxaparin Sodium (Lovenox) 60 mg SC Q12 [facility]; Protocol Last Admin: 08/17/18 09:10 Dose: Not Given Enoxaparin Sodium (Lovenox) 30 mg SC DAILY [facility]; Protocol Last Admin: 08/18/18 09:26 Dose: 30 mg Famotidine (Pepcid) 20 mg IVP DAILY [facility] Last Admin: 08/18/18 09:26 Dose: 20 mg Furosemide (Lasix) 20 mg IV DAILY [facility] Last Admin: 08/18/18 11:46 Dose: 20 mg Hydromorphone HCl (Dilaudid) 0.5 mg IVP Q4H PRN PRN Reason: Pain, moderate (4-7) Last Admin: 08/15/18 22:55 Dose: 0.5 mg Meropenem (Merrem Iv 1 Gm Premix) 1 gm in 50 mls @ 100 mls/hr IVPB Q12 [facility]; Protocol Stop: 08/20/18 10:01 Last Admin: 08/18/18 21:00 Dose: 100 mls/hr Daptomycin 390 mg/ Sodium (Chloride) 100 mls @ 200 mls/hr IV Q24H [facility] Stop: 08/20/18 11:46 Last Admin: 08/18/18 12:30 Dose: 200 mls/hr Micafungin Sodium 100 mg/ (Sodium Chloride) 100 mls @ 100 mls/hr IV DAILY [facility]; Protocol Stop: 08/24/18 13:01 Last Admin: 08/18/18 13:34 Dose: 100 mls/hr Dextrose/Sodium Chloride (Dextrose 5%/0.45% Ns 1000 Ml) 1,000 mls @ 50 mls/hr IV .Q20H [facility] Last Admin: 08/18/18 17:07 Dose: 50 mls/hr Insulin Human Lispro (Humalog Low) 0 units SC ACHS [facility]; Protocol Last Admin: 08/18/18 22:10 Dose: Not Given Levalbuterol HCl (Xopenex) 0.63 mg IH [id number] [facility] Last Admin: 08/19/18 07:17 Dose: 0.63 mg Lidocaine (Lidoderm) 1 ea TD DAILY [facility] Last Admin: 08/18/18 09:26 Dose: 1 ea Methylprednisolone (Solu-Medrol) 20 mg IV Q12H [facility] Last Admin: 08/18/18 21:00 Dose: 20 mg Metoprolol Tartrate (Lopressor) 25 mg PO BID [facility] Last Admin: 08/18/18 09:26 Dose: 25 mg Phenytoin (Dilantin) 100 mg PO Q8 [facility] Last Admin: 08/19/18 06:01 Dose: 100 mg Thiamine HCl (Vitamin B1 Inj) 100 mg IV DAILY [facility] Last Admin: 08/18/18 09:27 Dose: 100 mg Verapamil HCl (Verapamil Inj) 2.5 mg IVP Q6H PRN PRN Reason: for heart ratye >120 Last Admin: 08/17/18 05:27 Dose: 2.5 mg - Labs Labs: 08/18/18 05:30 08/18/18 05:30 PT 14.5 SECONDS (9.4-12.5) H 08/11/18 12:50 INR 1.26 08/11/18 12:50 APTT 33.2 Seconds (25.1-36.5) 08/11/18 12:50 - Constitutional Appears: Non-toxic, No Acute Distress, Chronically Ill - Head Exam Head Exam: NORMOCEPHALIC - Eye Exam Eye Exam: Normal appearance - ENT Exam ENT Exam: Mucous Membranes Moist - Respiratory Exam Respiratory Exam: NORMAL BREATHING PATTERN. absent: Accessory Muscle Use, Respiratory Distress - Cardiovascular Exam Cardiovascular Exam: Tachycardia, Irregular Rhythm - GI/Abdominal Exam GI & Abdominal Exam: Soft. absent: Distended, Firm, Guarding, Tenderness, Rebound Additional comments: incision w/ scant serous drainage mayra drain in place ostomy bag w/ stool present - Extremities Exam Extremities Exam: Normal Capillary Refill - Neurological Exam Neurological Exam: Alert, Awake - Psychiatric Exam Psychiatric exam: Normal Affect, Normal Mood - Skin Skin Exam: Dry, Normal Color, Warm Assessment and Plan - Assessment and Plan (Free Text) Assessment: 82 y/o M POD#8 s/p ex lap for ileal perforation Plan: - cont HHD - Encourage OOB to chair/Amb/IS use - cont Neb Tx per Pulm - monitor mayra output - f/u drain fluid - cont IV Abx per ID - f/u Cards recs - hold LTAC transfer until cleared by Dr. Du - pt cleared for transfer to remote Tele Further recommendations per Dr. Florian West DO PGY3
[2018-08-19 09:32] LABS: EOS % 0.3 % (1.5-5.0); GRAN # 10.87 (1.4-6.5); GRAN % 92.3 % (50.0-68.0); HEMOGLOBIN 11.4 g/dL (14.0-18.0); LYMPH # 0.5 (1.2-3.4); LYMPH % 4.2 % (22.0-35.0); MEAN CELL VOLUME 93.5 fl (80.0-105.0); MEAN CORPUSCULAR HEMOGLOBIN 29.5 pg (25.0-35.0); MEAN CORPUSCULAR HGB CONC 31.6 g/dl (31.0-37.0); MEAN PLATELET VOLUME 9.6 fl (7.0-11.0); MONO # 0.4 (0.1-0.6); MONO % 3.2 % (1.0-6.0); RBC 3.86 10^6/uL (3.5-6.1); RED CELL DISTRIBUTION WIDTH 15.6 % (11.5-14.5); WHITE BLOOD COUNT 11.8 10^3/uL (4.5-11.0)
[2018-08-19 09:52] LABS: ALBUMIN 2.2 g/dL (3.0-4.8); ALT/SGPT 88 U/L (7-56); AST/SGOT 93 U/L (17-59); BLOOD UREA NITROGEN 37 mg/dL (7-21); CALCIUM 7.8 mg/dL (8.4-10.5); GFR NON-AFRICAN AMERICAN > 60
[2018-08-19] MEDS: MethylPREDNISolone 40 mg Vial IV SCH ×2 (10:42→21:32)
[2018-08-19] MEDS: diltiaZEM 180 mg/24 Hours CD Cap PO SCH (10:44)
[2018-08-19] MEDS: Lidocaine 5% Patch TD SCH (10:45)
--- NOTE | 2018-08-19 10:45 | CP.PCM.PN ---
Subjective - Date & Time of Evaluation Date of Evaluation: 08/19/18 Time of Evaluation: 09:10 - Subjective Subjective: Comfortable in bed, no fevers, not in distress, appetite still not as good as should be. Objective - Vital Signs/Intake and Output Vital Signs (last 24 hours): Temp Pulse Resp BP Pulse Ox 98.2 F 102 H 16 129/53 L 84 L 08/18/18 04:00 08/18/18 08:06 08/18/18 07:59 08/18/18 08:06 08/18/18 08:06 Intake and Output: 08/18/18 08/18/18 06:59 18:59 Intake Total 1100 Output Total 1390 Balance -290 - Medications Medications: Current Medications Acetylcysteine (Acetylcysteine 20%) 4 ml [facility]H [id number] [facility] Last Admin: 08/18/18 08:12 Dose: 4 ml Apixaban (Eliquis) 2.5 mg PO BID [facility] Last Admin: 08/09/18 10:14 Dose: Not Given Budesonide (Pulmicort Respules) 0.5 mg IH [id number] [facility] Last Admin: 08/18/18 08:12 Dose: 0.5 mg Clonidine HCl (Catapres Tts1 0.1 Mg/24 Hr) 1 patch TD Q7D@1000 [facility] Last Admin: 08/13/18 09:12 Dose: 1 patch Diltiazem HCl (Cardizem Cd) 180 mg PO DAILY [facility] Last Admin: 08/18/18 09:25 Dose: 180 mg Enoxaparin Sodium (Lovenox) 60 mg SC Q12 [facility]; Protocol Last Admin: 08/17/18 09:10 Dose: Not Given Enoxaparin Sodium (Lovenox) 30 mg SC DAILY [facility]; Protocol Last Admin: 08/18/18 09:26 Dose: 30 mg Famotidine (Pepcid) 20 mg IVP DAILY [facility] Last Admin: 08/18/18 09:26 Dose: 20 mg Hydromorphone HCl (Dilaudid) 0.5 mg IVP Q4H PRN PRN Reason: Pain, moderate (4-7) Last Admin: 08/15/18 22:55 Dose: 0.5 mg Meropenem (Merrem Iv 1 Gm Premix) 1 gm in 50 mls @ 100 mls/hr IVPB Q12 [facility]; Protocol Stop: 08/20/18 10:01 Last Admin: 08/18/18 09:26 Dose: 100 mls/hr Daptomycin 390 mg/ Sodium (Chloride) 100 mls @ 200 mls/hr IV Q24H [facility] Stop: 08/20/18 11:46 Last Admin: 08/17/18 12:30 Dose: 200 mls/hr Micafungin Sodium 100 mg/ (Sodium Chloride) 100 mls @ 100 mls/hr IV DAILY [facility]; Protocol Stop: 08/24/18 13:01 Last Admin: 08/17/18 09:06 Dose: 100 mls/hr Dextrose/Sodium Chloride (Dextrose 5%/0.45% Ns 1000 Ml) 1,000 mls @ 50 mls/hr IV .Q20H [facility] Last Admin: 08/17/18 20:54 Dose: 50 mls/hr Insulin Human Lispro (Humalog Low) 0 units SC ACHS [facility]; Protocol Last Admin: 08/18/18 08:02 Dose: 1 u Levalbuterol HCl (Xopenex) 0.63 mg IH [id number] [facility] Last Admin: 08/18/18 08:12 Dose: 0.63 mg Lidocaine (Lidoderm) 1 ea TD DAILY [facility] Last Admin: 08/18/18 09:26 Dose: 1 ea Methylprednisolone (Solu-Medrol) 20 mg IV Q12H [facility] Last Admin: 08/18/18 09:26 Dose: 20 mg Metoprolol Tartrate (Lopressor) 25 mg PO BID [facility] Last Admin: 08/18/18 09:26 Dose: 25 mg Phenytoin (Dilantin) 100 mg PO Q8 [facility] Last Admin: 08/18/18 07:00 Dose: 100 mg Thiamine HCl (Vitamin B1 Inj) 100 mg IV DAILY [facility] Last Admin: 08/18/18 09:27 Dose: 100 mg Verapamil HCl (Verapamil Inj) 2.5 mg IVP Q6H PRN PRN Reason: for heart ratye >120 Last Admin: 08/17/18 05:27 Dose: 2.5 mg - Labs Labs: 08/18/18 05:30 08/18/18 05:30 PT 14.5 SECONDS (9.4-12.5) H 08/11/18 12:50 INR 1.26 08/11/18 12:50 APTT 33.2 Seconds (25.1-36.5) 08/11/18 12:50 - Constitutional Appears: Chronically Ill - Head Exam Head Exam: NORMAL INSPECTION - Respiratory Exam Respiratory Exam: Decreased Breath Sounds - Cardiovascular Exam Cardiovascular Exam: +S1, +S2 - GI/Abdominal Exam GI & Abdominal Exam: Soft. absent: Tenderness Assessment and Plan - Assessment and Plan (Free Text) Plan: Assessment sepsis S/P VDRF due to perforated ileum S/P ex-lap and resection of terminal ileum and primary anastomosis, growing VRE and C. tropicalis POD #8 S/P treatment for HCAP rectal cancer atrial fibrillation GERD anxiety disorder chronic CHF CAD Plan continue Daptomycin, Merrem and Mycamine and will continue to follow clinically and trend WBC count, as well as monitor RUSSELL drain output and how much the patient eats discussed with Dr. Du previously
[2018-08-19] MEDS: Enoxaparin 30 mg Syringe SC SCH (10:47)
[2018-08-19] MEDS: Meropenem IV 1 gm in NS 1 GM/50 ML BAG IVPB SCH ×2 (10:47→21:32)
[2018-08-19] MEDS: Micafungin 100 MG in Sodium Chloride 0.9% 100 ML IV SCH (10:48)
--- NOTE | 2018-08-19 11:43 | CP.PCM.PCO ---
Physician Communication Note - Physician Communication Note Physician Communication Note: double lumen PICC
[2018-08-19] MEDS: Thiamine 100 mg/ml Inj IV SCH (13:48)
--- NOTE | 2018-08-19 15:47 | PN ---
DATE: 08/19/2018 SUBJECTIVE: The patient is an 82 years old, seen and examined, lying in bed, seems to be comfortable, tolerating his oral feeding. Mild shortness of breath, cough with scanty phlegm. He is very deconditioned, has generalized weakness. PHYSICAL EXAMINATION: VITAL SIGNS: He is afebrile, pulse 100, respiration 18 and blood pressure 121/63. LUNGS: Poor respiratory effort; however, he has decreased breath sounds at bases. HEART: S1 and S2, audible with positive systolic murmur. No gallop. ABDOMEN: Soft. Colostomy is functional. Wound seems to be healthy. He still has RUSSELL tube in his right lower quadrant area. LABORATORY DATA: WBC 11.8, hemoglobin 11.4, hematocrit 36.1 and platelets 69,000. Chemistry; sodium 139, potassium 4.5, chloride 105, CO2 of 33, BUN 37, creatinine 0.8 and blood sugar of 111. AST 93 and ALT 88. His repeat culture was done on the 08/18/2018, from abdominal cavity has no growth. It was growing VRE and Reshma tropicalis before. ASSESSMENT: 1. Right hemicolectomy. 2. Ileal resection with end-to-end anastomosis. 3. Chronic atrial fibrillation. 4. Hypertension. 5. Seizure disorder. 6. Idiopathic thrombocytopenia. PLAN: We will continue patient on current medication. He is getting diltiazem. He is on TPN. He is getting daptomycin. We can discontinue his fluid, since he is getting TPN. He is on meropenem and micafungin. Continue nebulizer treatment. He seems to be improving, need long rehab. Tri Fleming MD
--- NOTE | 2018-08-19 15:56 | RAD ---
Date of service: 08/19/2018 HISTORY: S/P PICC INSERTION COMPARISON: 08/18/2018. FINDINGS: The right PICC line terminates at the cavoatrial junction LUNGS: The lungs are well inflated and clear. PLEURA: No pleural effusions or pneumothorax. Small right and moderate left pleural effusions with CARDIOVASCULAR: The heart is enlarged. Atherosclerotic aortic arch calcifications are present. OSSEOUS STRUCTURES: Within normal limits for the patient's age. VISUALIZED UPPER ABDOMEN: Normal. OTHER FINDINGS: None. IMPRESSION: Right PICC line terminates at the cavoatrial junction. No pneumothorax. Small right and moderate left pleural effusions.
--- NOTE | 2018-08-19 20:52 | PN ---
DATE: 08/19/2018 REASON FOR CONSULTATION: Followup history of atrial fibrillation, history of right hemicolectomy status post perforation of hollow viscus, status post exploratory laparotomy, resection of the bowel and end-to-end anastomosis, off anticoagulation because of increased serosanguineous discharge from drain. SUBJECTIVE: The patient denies any chest pain, shortness of breath, or any palpitations. OBJECTIVE GENERAL: Not in apparent distress, feels a lot better. VITAL SIGNS: Temperature afebrile. heart rate 100, blood pressure 121/63. HEENT: PERRLA. Extraocular muscles intact. NECK: Supple. No carotid bruits or thyromegaly. CHEST: Clear to auscultation. HEART: S1 and S2, regular. ABDOMEN: Soft. EXTREMITIES: Clubbing and cyanosis negative. LABORATORY DATA: Blood workup as follows. WBC 11.8, hemoglobin 11.5, hematocrit 36.1, platelet count 69,000. Chemistry shows sodium 139, potassium 4.5, chloride 105, carbon dioxide 33, anion gap of 6, BUN 33, and creatinine 0.8. Total protein 4.2 and albumin 2.2. 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 Further complicated by perforation of the hollow viscus, exploratory laparotomy redo exploration, end-to-end anastomosis, and resection of the bowel done. The patient has atrial fibrillation, started on Lovenox therapeutic dose, but the patient had increased drainage 900 mL serosanguineous, discontinued. The patient is currently on deep vein thrombosis prophylaxis. Continue Cardizem. Continue gentle hydration. Continue metoprolol. Increase nutritional support supplement. The patient wants chocolate flavor, so we will change supplement to chocolate flavor for dinner. Gladis Greenfield MD
--- NOTE | 2018-08-19 22:45 | CP.PCM.PCO ---
Physician Communication Note - Physician Communication Note Physician Communication Note: TPN-CalCt started/too ill for d/c-transfer
[2018-08-20] MEDS: HYDROmorphone 0.5 mg/0.5 ml ISec IVP PRN (01:51)
[2018-08-20] MEDS: Levalbuterol 0.63 MG/3 ML Inhal Soln UD IH SCH ×4 (02:57→21:33)
[2018-08-20] MEDS: Acetylcysteine 20% Inhal Soln (4ml) IH SCH ×4 (02:57→21:33)
[2018-08-20 06:44] LABS: ALT/SGPT 84 U/L (7-56); AST/SGOT 58 U/L (17-59); BLOOD UREA NITROGEN 40 mg/dL (7-21); CALCIUM 7.4 mg/dL (8.4-10.5); GFR NON-AFRICAN AMERICAN > 60; HDL CHOLESTEROL 23 mg/dL (29-60)
[2018-08-20 06:45] LABS: LDL CHOLESTEROL 65 mg/dL (0-129)
--- NOTE | 2018-08-20 06:58 | PN ---
DATE: 08/19/2018 CRITICAL CARE PROGRESS NOTE SUBJECTIVE: This 82-year-old male remains in Critical Care Unit bed #2 on the afternoon of , 08/19/2018. The patient remains weak and deconditioned. He remains short of breath at rest and is wearing chronic nasal O2. He continues to receive parenteral antibiotics for VRE and Reshma tropicalis in postoperative wounds. He has a functioning colostomy and has fluid draining from his [place]. He was noted to be hypertensive, persistently short of breath with bilateral pleural effusions, left greater than right and is now tolerating IV Lasix and denying any fever or chest pain. PHYSICAL EXAMINATION: VITAL SIGNS: Temperature 97.9, respirations 20, pulse 109, and blood pressure 119/72 with a pulse ox of 96% on 2 liters nasal O2. HEENT: Head: Normocephalic, atraumatic. Eyes: No icterus. NECK: Supple. HEART: Irregular S1, S2. LUNGS: Decreased breath sounds at both bases. Occasional rhonchi that clear with coughing. ABDOMEN: Soft, functioning colostomy. EXTREMITIES: No edema. SKIN: No rash. VASCULAR: Legs warm to touch. PSYCHOLOGICAL: Alert and confused. NEUROLOGIC: Markedly deconditioned. LABORATORY DATA: White count 11,800, hemoglobin 11.4, hematocrit 36.1, platelets 669,000. Sodium 139, K 4.5, chloride 105, bicarb 33, BUN 37, creatinine 0.8, random blood sugar 109. Bilirubin 2, AST 93, ALT 88, alk phos 87. Albumin 2.2, low. Chest x-ray was reviewed. It shows lungs inflated and clear, right PICC line terminating in cavoatrial junction with small right and moderate left pleural effusions noted. No infiltrate noted. 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 PLAN: To continue Mucomyst inhalational therapy, Cardizem, clonidine, parenteral nutrition, Dilantin, insulins, IV Lasix, Lopressor, subcu Lovenox, Meropenem, micafungin, Pepcid, Pulmicort inhalational therapy, IV Solu-Medrol, thiamine, and inhalational Xopenex. The patient will have serial labs, physical therapy and is being considered for transfer to a long-term care facility when medically stable. He is ordered to receive CPAP; BiPAP; chest physiotherapy; O2; heart-healthy, low-sodium diet while remaining on aspiration precautions, isolation precautions, strict I's and O's, and chest physiotherapy as well as antiembolism compression device stockings. A calorie count has been ordered and all of the above was reviewed with the patient, nursing, and Dr. Rocael Du from Surgery. All questions were answered. Sara Ramirez MD
[2018-08-20 07:14] LABS: EOS % 0.2 % (1.5-5.0); GRAN # 8.16 (1.4-6.5); GRAN % 92.3 % (50.0-68.0); HEMOGLOBIN 10.7 g/dL (14.0-18.0); LYMPH # 0.4 (1.2-3.4); LYMPH % 4.2 % (22.0-35.0); MEAN CELL VOLUME 93.8 fl (80.0-105.0); MEAN CORPUSCULAR HEMOGLOBIN 29.1 pg (25.0-35.0); MEAN PLATELET VOLUME 10.2 fl (7.0-11.0); MONO # 0.3 (0.1-0.6); MONO % 3.3 % (1.0-6.0); RBC 3.68 10^6/uL (3.5-6.1); RED CELL DISTRIBUTION WIDTH 15.6 % (11.5-14.5); WHITE BLOOD COUNT 8.8 10^3/uL (4.5-11.0)
--- NOTE | 2018-08-20 07:25 | PN ---
DATE: 08/20/2018 PULMONARY NOTE SUBJECTIVE: The patient appears comfortable this morning. He is mildly short of breath, but in no acute distress. PHYSICAL EXAMINATION: VITAL SIGNS: Temperature is 97.4, pulse is 96, respiratory rate 22, blood pressure 153/94. Oxygen saturation on nasal cannula is 99%. HEENT: Normocephalic, atraumatic. No JVD. CARDIOVASCULAR: Systolic ejection murmur at the lower left sternal border. Questionable S3 gallop. LUNGS: Decreased breath sounds at the bases - improved overall. Much less/minimal rhonchi. No wheezing. EXTREMITIES: Mild edema. No cyanosis, no clubbing. Calves are nontender to palpation. GASTROINTESTINAL: Abdomen is postoperative. It is soft. The abdomen is less distended and less tender to palpation. SKIN: No acute rash. NEUROLOGIC: Limited at the present time. PERTINENT LABORATORY DATA: Chest x-ray was done today and reviewed. It is again a very poor, rotated film. There is no significant atelectasis noted to the left lung. There are probable small bilateral pleural effusions. The "haziness" in the right lower lobe has now resolved. IMPRESSION: 1. Intra-abdominal perforation. 2. Status post right hemicolectomy. 3. Recurrent left lung atelectasis. 4. Chronic obstructive pulmonary disease. 5. Congestive heart failure. 6. Atrial fibrillation. 7. Anemia, thrombocytopenia. PLAN: The patient appears comfortable this morning. He is mildly short of breath, but in no acute distress. He does state to feeling much better overall. I discussed the case with the night nurse at length. The night nurse stated that the patient had an uneventful night. On physical exam, his bronchospasm continues to slowly resolve. In addition, the alveolar-arterial gradient also continues to resolve. I will continue with the current nebulizer treatments and low-dose intravenous steroids for now. I will also continue with the chest percussion therapy and suctioning. As above, I did review the chest x-ray from this morning. The chest x-ray is significantly improved-- compared to last week and the week before. I would continue with the antibiotic coverage as per Infectious Disease. Temperatures have resolved. The leukocytosis is resolving. Inputs by Surgery and Cardiology are also noted. Clinical status of the patient is significantly improved - compared to last week. However, again, the future status/prognosis for this patient remains guarded. I will discuss the above with the entire ICU team in the next few moments. I will also discuss the above with the attending physician. Rosalio Blevins MD MTDJevon
[2018-08-20] MEDS: Budesonide 0.5 mg/2 ml Inhal Susp UD IH SCH ×2 (07:38→21:33)
[2018-08-20] MEDS ORDERED: Dextrose 50% SYRINGE Inj (50 ml) IV PRN (08:47)
[2018-08-20] MEDS ORDERED: Insulin Reg-MEDIUM-Coverage SC SCH (09:00)
[2018-08-20] MEDS: Insulin Lispro (humaLOG) LOW Coverage SC SCH ×4 (09:01→23:03)
--- NOTE | 2018-08-20 09:01 | CP.PCM.PN ---
Subjective - Date & Time of Evaluation Date of Evaluation: 08/20/18 Time of Evaluation: 08:58 - Subjective Subjective: General Surgery Progress Note for Dr. Du 82M seen and evaluated at bedside this morning. Patient sitting upright, resting comfortably in bed. No acute events overnight. No complaints this morning. Patient is tolerating diet and receiving TPN. Right arm PICC. 800cc serous output from mayra drain over 24 hours. 200cc output from ostomy over 24 hours. Denies f/c, n/v/d, abdominal pain, SOB, CP, or urinary symptoms. Objective - Vital Signs/Intake and Output Vital Signs (last 24 hours): Temp Pulse Resp BP Pulse Ox 97.4 F L 96 H 17 114/63 97 08/20/18 04:00 08/20/18 07:00 08/20/18 07:00 08/20/18 07:00 08/20/18 07:00 Intake and Output: 08/20/18 08/20/18 06:59 18:59 Intake Total 1096 Output Total 1110 Balance -14 - Medications Medications: Current Medications Acetylcysteine (Acetylcysteine 20%) 4 ml IH [id number] [facility] Last Admin: 08/20/18 07:38 Dose: 4 ml Apixaban (Eliquis) 2.5 mg PO BID [facility] Last Admin: 08/09/18 10:14 Dose: Not Given Budesonide (Pulmicort Respules) 0.5 mg IH [id number] [facility] Last Admin: 08/20/18 07:38 Dose: 0.5 mg Clonidine HCl (Catapres Tts1 0.1 Mg/24 Hr) 1 patch TD Q7D@1000 [facility] Last Admin: 08/13/18 09:12 Dose: 1 patch Dextrose (Dextrose 50% Inj) 0 ml IV STAT PRN; Protocol PRN Reason: Hypoglycemia Protocol Diltiazem HCl (Cardizem Cd) 180 mg PO DAILY [facility] Last Admin: 08/19/18 10:44 Dose: 180 mg Enoxaparin Sodium (Lovenox) 60 mg SC Q12 [facility]; Protocol Last Admin: 08/17/18 09:10 Dose: Not Given Enoxaparin Sodium (Lovenox) 30 mg SC DAILY [facility]; Protocol Last Admin: 08/19/18 10:47 Dose: 30 mg Famotidine (Pepcid) 20 mg IVP DAILY [facility] Last Admin: 08/19/18 10:44 Dose: 20 mg Furosemide (Lasix) 20 mg IV DAILY KD Last Admin: 08/19/18 10:43 Dose: 20 mg Hydromorphone HCl (Dilaudid) 0.5 mg IVP Q4H PRN PRN Reason: Pain, moderate (4-7) Last Admin: 08/20/18 01:51 Dose: 0.5 mg Meropenem (Merrem Iv 1 Gm Premix) 1 gm in 50 mls @ 100 mls/hr IVPB Q12 KD; Protocol Stop: 08/20/18 10:01 Last Admin: 08/19/18 21:32 Dose: 100 mls/hr Micafungin Sodium 100 mg/ (Sodium Chloride) 100 mls @ 100 mls/hr IV DAILY KD; Protocol Stop: 08/24/18 13:01 Last Admin: 08/19/18 10:48 Dose: 100 mls/hr Amino Acids/Electrolytes/Dextrose (Clinimix 5/20 % "E" (2000 Ml)) 2,000 mls @ 83.333 mls/hr IV .Q24H KD Last Admin: 08/19/18 20:33 Dose: 83.333 mls/hr Dextrose (Dextrose 5% In Water 1000 Ml) 1,000 mls @ 0 mls/hr IV .Q0M PRN; Protocol PRN Reason: Hypoglycemia Protocol Insulin Human Lispro (Humalog Low) 0 units SC ACHS KD; Protocol Last Admin: 08/19/18 22:36 Dose: Not Given Insulin Human Regular (Humulin R Med) 0 units SC Q6H KD; Protocol Levalbuterol HCl (Xopenex) 0.63 mg IH [id number] KD Last Admin: 08/20/18 07:38 Dose: 0.63 mg Lidocaine (Lidoderm) 1 ea TD DAILY KD Last Admin: 08/19/18 10:45 Dose: 1 ea Methylprednisolone (Solu-Medrol) 20 mg IV Q12H KD Last Admin: 08/19/18 21:32 Dose: 20 mg Metoprolol Tartrate (Lopressor) 25 mg PO BID KD Last Admin: 08/19/18 18:11 Dose: 25 mg Phenytoin (Dilantin) 100 mg PO Q8 KD Last Admin: 08/19/18 21:32 Dose: 100 mg Thiamine HCl (Vitamin B1 Inj) 100 mg IV DAILY KD Last Admin: 08/19/18 13:48 Dose: 100 mg Verapamil HCl (Verapamil Inj) 2.5 mg IVP Q6H PRN PRN Reason: for heart ratye >120 Last Admin: 08/17/18 05:27 Dose: 2.5 mg - Labs Labs: 08/20/18 05:30 08/20/18 05:30 PT 14.5 SECONDS (9.4-12.5) H 08/11/18 12:50 INR 1.26 08/11/18 12:50 APTT 33.2 Seconds (25.1-36.5) 08/11/18 12:50 - Constitutional Appears: Well, Non-toxic, No Acute Distress - Head Exam Head Exam: ATRAUMATIC, NORMAL INSPECTION, NORMOCEPHALIC - Eye Exam Eye Exam: EOMI - ENT Exam ENT Exam: Mucous Membranes Dry - Cardiovascular Exam Cardiovascular Exam: +S1, +S2 - GI/Abdominal Exam GI & Abdominal Exam: Soft, Normal Bowel Sounds. absent: Distended, Tenderness Additional comments: ostomy site pink, patent, and productive abdominal incisions clean/dry/intact - Exam Additional comments: UO 1600cc over 24 hours - Neurological Exam Neurological Exam: Alert, Awake - Psychiatric Exam Psychiatric exam: Normal Affect, Normal Mood - Skin Skin Exam: Dry, Intact, Normal Color, Warm Assessment and Plan - Assessment and Plan (Free Text) Assessment: 82M s/p ex lap for ileal perforation POD9, acutely deconditioned and malnourished Plan: Continue HHD and TPN Fingerstick glucose Q6H w/ insulin coverage Discontinued IVF Chest physiotherapy and pulmonary hygiene Continue to monitor mayra and ostomy output Continue IV Abx per ID F/u body fluid cultures F/u body fluid specific gravity, LDH, and protein Further recommendations per Dr. Florian Metz PGY1
[2018-08-20] MEDS: Phenytoin 100 mg/4 ml Oral Susp UD PO SCH ×3 (09:02→22:59)
--- NOTE | 2018-08-20 11:00 | CP.PCM.PN ---
Subjective - Date & Time of Evaluation Date of Evaluation: 08/20/18 Time of Evaluation: 09:20 - Subjective Subjective: Comfortable in bed but still not eating that well, no fevers overnight. Objective - Vital Signs/Intake and Output Vital Signs (last 24 hours): Temp Pulse Resp BP Pulse Ox 97.5 F L 92 H 18 125/68 97 08/19/18 00:00 08/19/18 08:00 08/19/18 08:00 08/19/18 08:00 08/19/18 08:00 Intake and Output: 08/19/18 08/19/18 06:59 18:59 Intake Total 600 Output Total 200 Balance 400 - Medications Medications: Current Medications Acetylcysteine (Acetylcysteine 20%) 4 ml IH [id number] [facility] Last Admin: 08/19/18 07:17 Dose: 4 ml Apixaban (Eliquis) 2.5 mg PO BID [facility] Last Admin: 08/09/18 10:14 Dose: Not Given Budesonide (Pulmicort Respules) 0.5 mg IH [id number] [facility] Last Admin: 08/19/18 07:17 Dose: 0.5 mg Clonidine HCl (Catapres Tts1 0.1 Mg/24 Hr) 1 patch TD Q7D@1000 [facility] Last Admin: 08/13/18 09:12 Dose: 1 patch Diltiazem HCl (Cardizem Cd) 180 mg PO DAILY [facility] Last Admin: 08/18/18 09:25 Dose: 180 mg Enoxaparin Sodium (Lovenox) 60 mg SC Q12 [facility]; Protocol Last Admin: 08/17/18 09:10 Dose: Not Given Enoxaparin Sodium (Lovenox) 30 mg SC DAILY [facility]; Protocol Last Admin: 08/18/18 09:26 Dose: 30 mg Famotidine (Pepcid) 20 mg IVP DAILY [facility] Last Admin: 08/18/18 09:26 Dose: 20 mg Furosemide (Lasix) 20 mg IV DAILY [facility] Last Admin: 08/18/18 11:46 Dose: 20 mg Hydromorphone HCl (Dilaudid) 0.5 mg IVP Q4H PRN PRN Reason: Pain, moderate (4-7) Last Admin: 08/15/18 22:55 Dose: 0.5 mg Meropenem (Merrem Iv 1 Gm Premix) 1 gm in 50 mls @ 100 mls/hr IVPB Q12 KD; Protocol Stop: 08/20/18 10:01 Last Admin: 08/18/18 21:00 Dose: 100 mls/hr Daptomycin 390 mg/ Sodium (Chloride) 100 mls @ 200 mls/hr IV Q24H KD Stop: 08/20/18 11:46 Last Admin: 08/18/18 12:30 Dose: 200 mls/hr Micafungin Sodium 100 mg/ (Sodium Chloride) 100 mls @ 100 mls/hr IV DAILY KD; Protocol Stop: 08/24/18 13:01 Last Admin: 08/18/18 13:34 Dose: 100 mls/hr Dextrose/Sodium Chloride (Dextrose 5%/0.45% Ns 1000 Ml) 1,000 mls @ 50 mls/hr IV .Q20H KD Last Admin: 08/18/18 17:07 Dose: 50 mls/hr Insulin Human Lispro (Humalog Low) 0 units SC ACHS KD; Protocol Last Admin: 08/18/18 22:10 Dose: Not Given Levalbuterol HCl (Xopenex) 0.63 mg IH [id number] KD Last Admin: 08/19/18 07:17 Dose: 0.63 mg Lidocaine (Lidoderm) 1 ea TD DAILY KD Last Admin: 08/18/18 09:26 Dose: 1 ea Methylprednisolone (Solu-Medrol) 20 mg IV Q12H KD Last Admin: 08/18/18 21:00 Dose: 20 mg Metoprolol Tartrate (Lopressor) 25 mg PO BID KD Last Admin: 08/18/18 09:26 Dose: 25 mg Phenytoin (Dilantin) 100 mg PO Q8 KD Last Admin: 08/19/18 06:01 Dose: 100 mg Thiamine HCl (Vitamin B1 Inj) 100 mg IV DAILY KD Last Admin: 08/18/18 09:27 Dose: 100 mg Verapamil HCl (Verapamil Inj) 2.5 mg IVP Q6H PRN PRN Reason: for heart ratye >120 Last Admin: 08/17/18 05:27 Dose: 2.5 mg - Labs Labs: 08/19/18 09:00 08/19/18 09:00 PT 14.5 SECONDS (9.4-12.5) H 10/31/18 12:50 INR 1.26 08/11/18 12:50 APTT 33.2 Seconds (25.1-36.5) 08/11/18 12:50 - Constitutional Appears: Cachectic, Chronically Ill - Head Exam Head Exam: NORMAL INSPECTION - Respiratory Exam Respiratory Exam: Decreased Breath Sounds - Cardiovascular Exam Cardiovascular Exam: +S1, +S2 - GI/Abdominal Exam GI & Abdominal Exam: Soft. absent: Tenderness Assessment and Plan - Assessment and Plan (Free Text) Plan: Assessment sepsis S/P VDRF due to perforated ileum S/P ex-lap and resection of terminal ileum and primary anastomosis, growing VRE and C. tropicalis POD #9 S/P treatment for HCAP rectal cancer atrial fibrillation GERD anxiety disorder chronic CHF CAD Plan continue Daptomycin, Merrem and Mycamine and will continue to follow clinically and trend WBC count, as well as monitor RUSSELL drain output and see how much the patient eats - patient still continues to be critically ill discussed with Dr. Du previously
[2018-08-20] MEDS: diltiaZEM 180 mg/24 Hours CD Cap PO SCH (11:06)
[2018-08-20] MEDS: Meropenem IV 1 gm in NS 1 GM/50 ML BAG IVPB SCH (11:06)
[2018-08-20] MEDS: Enoxaparin 30 mg Syringe SC SCH (11:07)
[2018-08-20] MEDS: Lidocaine 5% Patch TD SCH (11:08)
[2018-08-20] MEDS: Thiamine 100 mg/ml Inj IV SCH (11:11)
[2018-08-20] MEDS: Micafungin 100 MG in Sodium Chloride 0.9% 100 ML IV SCH (11:13)
[2018-08-20] MEDS: MethylPREDNISolone 40 mg Vial IV SCH ×2 (11:13→23:00)
--- NOTE | 2018-08-20 12:00 | PN ---
DATE: 08/20/2018 REASON FOR CONSULTATION AND FOLLOWUP: Atrial fibrillation, status post hemicolectomy, status post perforation probably status post exploratory laparotomy, off anticoagulation because of increased drainage, serosanguineous discharge in the drainage. SUBJECTIVE: Patient denies any chest pain, shortness of breath or any palpitation. PHYSICAL EXAMINATION: GENERAL: Not in apparent distress. VITAL SIGNS: As follows: Temperature afebrile, heart rate 92, blood pressure 101/62. HEENT: PERRLA. Extraocular muscles intact. NECK: Supple. No carotid bruit. No thyromegaly. CHEST: Clear to auscultation. HEART: S1 and S2, regular. ABDOMEN: Soft. EXTREMITIES: Clubbing and cyanosis negative. LABORATORY DATA: Blood workup as follows: WBC 8.8, hemoglobin 10, hematocrit 34.5, platelet count 73,000. Chemistry shows sodium 130, potassium 4.4, chloride 103, carbon dioxide 31, anion gap of 16, BUN 14, creatinine 0.7. Albumin 2. IMPRESSION: Severe protein calorie malnutrition present on admission is moderate, history of atrial fibrillation, chronic history of endovascular repair, history of colostomy passage of cecal villous adenoma status post right hemicolectomy, status post perforation of the bowel postop, exploratory laparotomy and resection of the bowel. RECOMMENDATION: Continue Cardizem, increase nutrition support. Change to Glucerna, chocolate flavor. Monitor I's and O's, cautious hydration and DVT prophylaxis. Patient was started on Lovenox 1 mg every 12 hours for atrial fibrillation, but patient started increased oozing. We will follow the lab tomorrow. Overall, patient's condition is critical. Long-term prognosis guarded, we will follow. Gladis Greenfield MD
--- NOTE | 2018-08-20 12:06 | RAD ---
Date of service: 08/20/2018 HISTORY: Follow-up COMPARISON: Multiple serial examinations preceding the most recent study: August 20, 2018 05:46. FINDINGS: LUNGS: No active pulmonary disease. PLEURA: No significant interval change compared to the prior examination(s). CARDIOVASCULAR: Atherosclerotic calcifications identified primarily aortic arch. Stable position of PICC line. The tip is at the cavoatrial junction. OSSEOUS STRUCTURES: No significant abnormalities. VISUALIZED UPPER ABDOMEN: Normal. OTHER FINDINGS: None. IMPRESSION: No significant interval change compared to the prior examination(s). Stable position of PICC line.
--- NOTE | 2018-08-20 12:12 | RAD ---
Date of service: 08/20/2018 HISTORY: follow up COMPARISON: Multiple serial examinations preceding the most recent study:, August 19, 2018. FINDINGS: LUNGS: Consolidative changes both lower lobes. PLEURA: Pleural effusions inseparable from consolidative change. CARDIOVASCULAR: Atherosclerotic calcifications identified primarily aortic arch. PICC line in satisfactory position, stable. The tip is at the cavoatrial junction. OSSEOUS STRUCTURES: No significant abnormalities. VISUALIZED UPPER ABDOMEN: Normal. OTHER FINDINGS: None. IMPRESSION: Satisfactory position of PICC line. No significant interval change compared to the prior examination(s).
--- NOTE | 2018-08-20 12:31 | PN ---
DATE: 08/20/2018 SUBJECTIVE: The patient is 82 years old, seen and examined, sitting in chair, seems to be comfortable. He states he does not have a good appetite. Only had chocolate-flavored Ensure. No nausea or vomiting. No diarrhea. PHYSICAL EXAMINATION: VITAL SIGNS: He is afebrile, pulse 96, respirations 16, blood pressure 114/63. LUNGS: Bilateral fair airflow. No rhonchi or crackle. HEART: S1 and S2 audible. Rate controlled. ABDOMEN: Soft. Colostomy is functional. Drain has a little hemorrhagic fluid in the RUSSELL drain in the left lower quadrant. LABORATORY EXAM: WBC is 8.8, hemoglobin 10.7, hematocrit 34.5, platelet of 73. Chemistry: Sodium 138, potassium 4.5, chloride 106, CO2 of 31, BUN 40, creatinine 0.7, blood sugar of 196, total bili 1.6, albumin is 2.2. His repeat abdominal fluid is negative for VRE that was positive on 08/11/2018, but the repeat one on 08/20/2018 is negative. ASSESSMENT: 1. Status post right hemicolectomy for villous adenoma. 2. Status post revision of laparotomy and had ileal resection and end-to-end anastomosis done. 3. Thrombocytopenia. 4. Hypertension. 5. Hyperlipidemia. PLAN: We will continue the patient on current medications. He is on daptomycin. He is on micafungin. He is on TPN. Continue him on DVT prophylaxis mg. He is on micafungin. He is on methylprednisolone 20 mg every 12. Continue that. Out of bed to chair. Needs prolonged physical therapy. Tri Fleming MD
--- NOTE | 2018-08-20 17:42 | CP.CCUPN ---
CCU Subjective - Physician Review Events Since Last Encounter (Free Text): 08/20/18 17:36 MICU Attending Asked to see patient by Dr Du for concern he was too unstable to be transferred patient is not having any chest pain, no sob no fevers very weak and lethargic however CCU Objective - Vital Signs / Intake & Output Vital Signs (Last 4 hours): Vital Signs Pulse Resp BP Pulse Ox 08/20/18 17:35 92 H 23 132/82 97 08/20/18 17:30 100 H 132/82 08/20/18 17:29 100 H 132/82 08/20/18 17:00 107 H 26 H 97 08/20/18 16:00 104 H 37 H 144/98 H 97 08/20/18 15:01 98 H 133/94 H 98 08/20/18 15:00 103 H 32 H 95 08/20/18 14:00 92 H 25 H 142/78 97 Intake and Output (Last 8hrs): Intake & Output 08/20/18 08/20/18 08/20/18 06:59 14:59 22:59 Intake Total 1096 Output Total 1110 Balance -14 Weight 62.46 kg Intake: IV 100 antibiotics 100 TPN/PPN 996 Output: Drainage 460 Right Abdomen 460 Urine 650 Urine, Voided 650 - Physical Exam Head: Positive for: Atraumatic, Normocephalic Pupils: Positive for: PERRL Extroacular Muscles: Positive for: EOMI Conjunctiva: Positive for: Normal Mouth: Positive for: Moist Mucous Membranes Pharnyx: Positive for: Normal Neck: Positive for: Normal Range of Motion Respiratory/Chest: Positive for: Clear to Auscultation, Good Air Exchange. Negative for: Respiratory Distress Cardiovascular: Positive for: Other (irregularly irregular rhythm) Abdomen: Positive for: Normal Bowel Sounds, Other (Abdominal dressing in place. RUSSELL drain in place draining serosanguinous fluid. Colostomy bag in place). Negative for: Tenderness, Distention Genitourinary Male: Positive for: Prostate Tenderness Upper Extremity: Positive for: Normal Inspection Lower Extremity: Positive for: Normal Inspection. Negative for: Edema Neurological: Positive for: GCS=15, Speech Normal Skin: Positive for: Warm, Dry, Normal Color Psychiatric: Positive for: Alert, Oriented x 3, Normal Insight, Normal Concentration - Medications Active Medications: Active Medications Generic Name Dose Route Start Last Admin Trade Name Freq PRN Reason Stop Dose Admin Acetylcysteine 4 ml 08/17/18 08:00 08/20/18 13:14 Acetylcysteine 20% IH 4 ml [id number] KD Administration Apixaban 2.5 mg 08/04/18 18:00 08/09/18 10:14 Eliquis PO Not Given BID KD Budesonide 0.5 mg 08/13/18 08:00 08/20/18 07:38 Pulmicort Respules IH 0.5 mg [id number] KD Administration Clonidine HCl 1 patch 08/13/18 10:00 08/20/18 11:10 Catapres Tts1 0.1 Mg/24 Hr TD 1 patch Q7D@1000 KD Administration Dextrose 0 ml 08/20/18 08:47 Dextrose 50% Inj IV STAT PRN Hypoglycemia Protocol Protocol Diltiazem HCl 180 mg 08/18/18 10:00 08/20/18 11:06 Cardizem Cd PO 180 mg DAILY KD Administration Enoxaparin Sodium 60 mg 08/17/18 10:00 08/17/18 09:10 Lovenox SC Not Given Q12 KD Protocol Enoxaparin Sodium 30 mg 08/18/18 10:00 08/20/18 11:07 Lovenox SC 30 mg DAILY KD Administration Protocol Famotidine 20 mg 08/21/18 10:00 Pepcid PO DAILY KD Furosemide 20 mg 08/18/18 11:30 08/20/18 11:10 Lasix IV 20 mg DAILY KD Administration Hydromorphone HCl 0.5 mg 08/11/18 00:08 08/20/18 01:51 Dilaudid IVP 0.5 mg Q4H PRN Administration Pain, moderate (4-7) Micafungin Sodium 100 mg/ 100 mls @ 100 mls/hr 08/15/18 13:00 08/20/18 11:13 Sodium Chloride IV 08/24/18 13:01 100 mls/hr DAILY KD Administration Protocol Amino Acids/Electrolytes/Dextrose 2,000 mls @ 83.333 mls/hr 08/19/18 18:00 08/20/18 17:29 Clinimix 5/20 % "E" (2000 Ml) IV 83.333 mls/hr .Q24H KD Administration Dextrose 1,000 mls @ 0 mls/hr 08/20/18 08:47 Dextrose 5% In Water 1000 Ml IV .Q0M PRN Hypoglycemia Protocol Protocol Per Protocol Insulin Human Lispro 0 units 08/04/18 11:30 08/20/18 16:42 Humalog Low SC 1 u ACHS KD Administration Protocol Levalbuterol HCl 0.63 mg 08/18/18 08:00 08/20/18 13:14 Xopenex IH 0.63 mg [id number] KD Administration Lidocaine 1 ea 08/10/18 10:00 08/20/18 11:08 Lidoderm TD 1 ea DAILY KD Administration Methylprednisolone 20 mg 08/15/18 09:15 08/20/18 11:13 Solu-Medrol IV 20 mg Q12H KD Administration Metoprolol Tartrate 25 mg 08/14/18 18:00 08/20/18 17:30 Lopressor PO 25 mg BID KD Administration Phenytoin 100 mg 08/14/18 14:00 08/20/18 15:01 Dilantin PO 100 mg Q8 KD Administration Thiamine HCl 100 mg 08/11/18 15:30 08/20/18 11:11 Vitamin B1 Inj IV 100 mg DAILY KD Administration Verapamil HCl 2.5 mg 08/12/18 13:17 08/17/18 05:27 Verapamil Inj IVP 2.5 mg Q6H PRN Administration for heart ratye >120 - Patient Studies Lab Studies: Microbiology Studies 08/18/18 13:00 Gram Stain - Final Body Fluid - Abdominal Cavity Body Fluid Culture - Preliminary NO GROWTH AFTER 2 DAYS Lab Studies 08/20/18 08/20/18 08/20/18 Range/Units 16:11 12:39 08:31 WBC (4.5-11.0) 10^3/uL RBC (3.5-6.1) 10^6/uL Hgb (14.0-18.0) g/dL Hct (42.0-52.0) % MCV (80.0-105.0) fl MCH (25.0-35.0) pg MCHC (31.0-37.0) g/dl RDW (11.5-14.5) % Plt Count (120.0-450.0) 10^3/uL MPV (7.0-11.0) fl Gran % (50.0-68.0) % Lymph % (Auto) (22.0-35.0) % Gove % (Auto) (1.0-6.0) % Eos % (Auto) (1.5-5.0) % Baso % (Auto) (0.0-3.0) % Gran # (1.4-6.5) Lymph # (Auto) (1.2-3.4) Gove # (Auto) (0.1-0.6) Eos # (Auto) (0.0-0.7) Baso # (Auto) (0.0-2.0) K/mm3 Sodium (132-148) mmol/L Potassium (3.6-5.0) mmol/L Chloride (98-107) mmol/L Carbon Dioxide (21-33) mmol/L Anion Gap (10-20) BUN (7-21) mg/dL Creatinine (0.8-1.5) mg/dl Est GFR ( Amer) Est GFR (Non-Af Amer) POC Glucose (mg/dL) 189 H 200 H 196 H (65-110) mg/dL Random Glucose (70-110) mg/dL Calcium (8.4-10.5) mg/dL Phosphorus (2.5-4.5) mg/dL Magnesium (1.7-2.2) mg/dL Total Bilirubin (0.2-1.3) mg/dL AST (17-59) U/L ALT (7-56) U/L Alkaline Phosphatase (38-126) U/L Total Protein (5.8-8.3) g/dL Albumin (3.0-4.8) g/dL Globulin gm/dL Albumin/Globulin Ratio (1.1-1.8) Triglycerides (35-160) mg/dL Cholesterol (130-200) mg/dL LDL Cholesterol Direct (0-129) mg/dL HDL Cholesterol (29-60) mg/dL 08/20/18 08/20/18 08/19/18 Range/Units 05:30 05:30 22:13 WBC 8.8 D (4.5-11.0) 10^3/uL RBC 3.68 (3.5-6.1) 10^6/uL Hgb 10.7 L (14.0-18.0) g/dL Hct 34.5 L (42.0-52.0) % MCV 93.8 (80.0-105.0) fl MCH 29.1 (25.0-35.0) pg MCHC 31.0 (31.0-37.0) g/dl RDW 15.6 H (11.5-14.5) % Plt Count 73 L (120.0-450.0) 10^3/uL MPV 10.2 (7.0-11.0) fl Gran % 92.3 H (50.0-68.0) % Lymph % (Auto) 4.2 L (22.0-35.0) % Gove % (Auto) 3.3 (1.0-6.0) % Eos % (Auto) 0.2 L (1.5-5.0) % Baso % (Auto) 0.0 (0.0-3.0) % Gran # 8.16 H (1.4-6.5) Lymph # (Auto) 0.4 L (1.2-3.4) Gove # (Auto) 0.3 (0.1-0.6) Eos # (Auto) 0.0 (0.0-0.7) Baso # (Auto) 0.00 (0.0-2.0) K/mm3 Sodium 138 (132-148) mmol/L Potassium 4.5 (3.6-5.0) mmol/L Chloride 106 (98-107) mmol/L Carbon Dioxide 31 (21-33) mmol/L Anion Gap 6 L (10-20) BUN 40 H (7-21) mg/dL Creatinine 0.7 L (0.8-1.5) mg/dl Est GFR ( Amer) > 60 Est GFR (Non-Af Amer) > 60 POC Glucose (mg/dL) 186 H (65-110) mg/dL Random Glucose 199 H (70-110) mg/dL Calcium 7.4 L (8.4-10.5) mg/dL Phosphorus 2.9 (2.5-4.5) mg/dL Magnesium 1.8 (1.7-2.2) mg/dL Total Bilirubin 1.6 H (0.2-1.3) mg/dL AST 58 (17-59) U/L ALT 84 H (7-56) U/L Alkaline Phosphatase 81 (38-126) U/L Total Protein 3.9 L (5.8-8.3) g/dL Albumin 2.0 L (3.0-4.8) g/dL Globulin 1.9 gm/dL Albumin/Globulin Ratio 1.0 L (1.1-1.8) Triglycerides 75 (35-160) mg/dL Cholesterol 81 L (130-200) mg/dL LDL Cholesterol Direct 65 (0-129) mg/dL HDL Cholesterol 23 L (29-60) mg/dL 08/19/18 Range/Units 17:29 WBC (4.5-11.0) 10^3/uL RBC (3.5-6.1) 10^6/uL Hgb (14.0-18.0) g/dL Hct (42.0-52.0) % MCV (80.0-105.0) fl MCH (25.0-35.0) pg MCHC (31.0-37.0) g/dl RDW (11.5-14.5) % Plt Count (120.0-450.0) 10^3/uL MPV (7.0-11.0) fl Gran % (50.0-68.0) % Lymph % (Auto) (22.0-35.0) % Gove % (Auto) (1.0-6.0) % Eos % (Auto) (1.5-5.0) % Baso % (Auto) (0.0-3.0) % Gran # (1.4-6.5) Lymph # (Auto) (1.2-3.4) Gove # (Auto) (0.1-0.6) Eos # (Auto) (0.0-0.7) Baso # (Auto) (0.0-2.0) K/mm3 Sodium (132-148) mmol/L Potassium (3.6-5.0) mmol/L Chloride (98-107) mmol/L Carbon Dioxide (21-33) mmol/L Anion Gap (10-20) BUN (7-21) mg/dL Creatinine (0.8-1.5) mg/dl Est GFR ( Amer) Est GFR (Non-Af Amer) POC Glucose (mg/dL) 151 H (65-110) mg/dL Random Glucose (70-110) mg/dL Calcium (8.4-10.5) mg/dL Phosphorus (2.5-4.5) mg/dL Magnesium (1.7-2.2) mg/dL Total Bilirubin (0.2-1.3) mg/dL AST (17-59) U/L ALT (7-56) U/L Alkaline Phosphatase (38-126) U/L Total Protein (5.8-8.3) g/dL Albumin (3.0-4.8) g/dL Globulin gm/dL Albumin/Globulin Ratio (1.1-1.8) Triglycerides (35-160) mg/dL Cholesterol (130-200) mg/dL LDL Cholesterol Direct (0-129) mg/dL HDL Cholesterol (29-60) mg/dL Laboratory Results - last 24 hr 08/19/18 08/19/18 08/20/18 17:29 22:13 05:30 WBC 8.8 D RBC 3.68 Hgb 10.7 L Hct 34.5 L MCV 93.8 MCH 29.1 MCHC 31.0 RDW 15.6 H Plt Count 73 L MPV 10.2 Gran % 92.3 H Lymph % (Auto) 4.2 L Gove % (Auto) 3.3 Eos % (Auto) 0.2 L Baso % (Auto) 0.0 Gran # 8.16 H Lymph # (Auto) 0.4 L Gove # (Auto) 0.3 Eos # (Auto) 0.0 Baso # (Auto) 0.00 Sodium Potassium Chloride Carbon Dioxide Anion Gap BUN Creatinine Est GFR ( Amer) Est GFR (Non-Af Amer) POC Glucose (mg/dL) 151 H 186 H Random Glucose Calcium Phosphorus Magnesium Total Bilirubin AST ALT Alkaline Phosphatase Total Protein Albumin Globulin Albumin/Globulin Ratio Triglycerides Cholesterol LDL Cholesterol Direct HDL Cholesterol 08/20/18 08/20/18 08/20/18 05:30 08:31 12:39 WBC RBC Hgb Hct MCV MCH MCHC RDW Plt Count MPV Gran % Lymph % (Auto) Gove % (Auto) Eos % (Auto) Baso % (Auto) Gran # Lymph # (Auto) Gove # (Auto) Eos # (Auto) Baso # (Auto) Sodium 138 Potassium 4.5 Chloride 106 Carbon Dioxide 31 Anion Gap 6 L BUN 40 H Creatinine 0.7 L Est GFR ( Amer) > 60 Est GFR (Non-Af Amer) > 60 POC Glucose (mg/dL) 196 H 200 H Random Glucose 199 H Calcium 7.4 L Phosphorus 2.9 Magnesium 1.8 Total Bilirubin 1.6 H AST 58 ALT 84 H Alkaline Phosphatase 81 Total Protein 3.9 L Albumin 2.0 L Globulin 1.9 Albumin/Globulin Ratio 1.0 L Triglycerides 75 Cholesterol 81 L LDL Cholesterol Direct 65 HDL Cholesterol 23 L 08/20/18 16:11 WBC RBC Hgb Hct MCV MCH MCHC RDW Plt Count MPV Gran % Lymph % (Auto) Gove % (Auto) Eos % (Auto) Baso % (Auto) Gran # Lymph # (Auto) Gove # (Auto) Eos # (Auto) Baso # (Auto) Sodium Potassium Chloride Carbon Dioxide Anion Gap BUN Creatinine Est GFR ( Amer) Est GFR (Non-Af Amer) POC Glucose (mg/dL) 189 H Random Glucose Calcium Phosphorus Magnesium Total Bilirubin AST ALT Alkaline Phosphatase Total Protein Albumin Globulin Albumin/Globulin Ratio Triglycerides Cholesterol LDL Cholesterol Direct HDL Cholesterol Fingerstick Blood Sugar Results: 189 Critical Care Progress Note - Nutrition Nutrition: Nutrition Category Date Time Status Heart Healthy Diet [DIET] Diets 08/18/18 Lunch Active Assessment/Plan - Assessment and Plan (Free Text) Assessment: 82 M with hx of rectal cancer s/p total colectomy, zenker's diverticulum, thrombocytopenia, stent placement for AAA, seizure disorder, hypertension, hyperlipidemia, atrial fibrillation on eliquis s/p polyp removal with parastomal hernia repair, with multi organ failure, and recurrent lung collaps resolved iwth bronch x 2 Events during the week reviewed; hemodynically stable on oral anti-hypertensives COPD - cont nebs, steroids being tapered slowly Abx as per ID on broad spectrum (VRE) JOHNNY has resolved Overall is much improved since I last saw him Major issues is PT, increasing his mobility and intiating feeding would avoid PPN and attempt enteral feeds only He has a long way to go for recovery which should be focused around rehab and nutrition Does not require ICU level of care Recommend transfer Yeni Keys MD MICU Attending
--- NOTE | 2018-08-20 18:28 | CP.PCM.PCO ---
Physician Communication Note - Physician Communication Note Physician Communication Note: NIKA TPN/PO Diet still poor/Drain increasing again(VRE)
--- NOTE | 2018-08-20 20:49 | PN ---
DATE: 08/20/2018 CRITICAL CARE PROGRESS NOTE SUBJECTIVE: This 82-year-old male was examined at his bedside in the critical care unit, bed #2 on the morning of 08/20/2018, present for the interview with his nurse, Ambrocio Street, registered nurse. The patient has been started on parenteral nutrition, I have discussed with nurse, Jad discontinuing peripheral IV fluids given history of congestive heart failure and atrial fibrillation. The patient denied any fever, chills, chest pain or shortness of breath. OBJECTIVE: VITAL SIGNS: Noted to have a temperature of 98.2, respirations 24, pulse 112 and blood pressure 136/73 with a pulse ox of 100% on 2 L nasal O2. 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 HEENT: Head: Normocephalic and atraumatic. Eyes: No icterus. NECK: Supple. HEART: Irregular, S1 and S2. LUNGS: With occasional rhonchi. ABDOMEN: Soft. Colostomy functioning Josué-Murdock still draining almost 200 mL every 2 hours clear hemorrhagic fluid. VASCULAR: Legs warm to touch. PSYCHOLOGICAL: Alert and confused. NEUROLOGIC: Deconditioned. LABORATORY DATA: White count 8800, hemoglobin 10.7, hematocrit 34.5, platelets 73,000. Sodium 138, K 4.5, chloride 106, bicarb 31, BUN 40, creatinine 0.7, random blood sugar 199, calcium 7.4. Phosphorous 2.9, magnesium 1.8. Current abdominal cavity body fluid is showing no growth at 2 days and previous wound cultures are growing VRE and Reshma tropicalis. IMPRESSION AND PLAN: An 82-year-old male status post right hemicolectomy for cecal mass complicated by a perforated ileum that required exploratory laparotomy and now the patient has functioning colostomy and persistent Josué-Murdock drainage from second surgery with comorbidities of acute renal failure improved, chronic obstructive pulmonary disease, chronic hypertension, history of chronic atrial fibrillation, seizure syndrome, type 2 diabetes mellitus, chronic hypertension, postoperative infections with vancomycin-resistant enterococcus and Reshma tropicalis and history of marked deconditioning and anemia of chronic disease and thrombocytopenia. The patient will continue on Xopenex inhalational therapy, thiamine, IV Solu-Medrol, Pulmicort inhalational therapy and Pepcid. Parenteral antibiotics including micafungin. He continues on subcutaneous Lovenox, Lopressor, Lidoderm, IV Lasix, Humalog low-dose insulin coverage, Dilantin, hyperalimentation, clonidine, Cardizem and Mucomyst inhalational therapy. The patient continues to be followed by Infectious Disease, Surgery, Cardiology, Pulmonary and will require continued critical care management given his multiple comorbidities. Discussion of IV fluid management and insulins was discussed in detail with nurse, Jad. The patient is also scheduled to continue heart-healthy bland diet, antiembolism stockings, aspiration precautions and physical therapy at bedside. Overall prognosis remains guarded at present. Sara Ramirez MD
[2018-08-21] MEDS: Acetylcysteine 20% Inhal Soln (4ml) IH SCH ×4 (01:00→22:17)
[2018-08-21] MEDS: Levalbuterol 0.63 MG/3 ML Inhal Soln UD IH SCH ×4 (01:00→22:18)
[2018-08-21] MEDS: Phenytoin 100 mg/4 ml Oral Susp UD PO SCH ×3 (05:34→21:59)
[2018-08-21 06:10] LABS: GRAN # 8.19 (1.4-6.5); GRAN % 93.1 % (50.0-68.0); HEMOGLOBIN 10.7 g/dL (14.0-18.0); LYMPH # 0.2 (1.2-3.4); LYMPH % 2.4 % (22.0-35.0); MEAN CELL VOLUME 92.6 fl (80.0-105.0); MEAN CORPUSCULAR HEMOGLOBIN 29.5 pg (25.0-35.0); MEAN CORPUSCULAR HGB CONC 31.8 g/dl (31.0-37.0); MEAN PLATELET VOLUME 9.5 fl (7.0-11.0); MONO # 0.4 (0.1-0.6); MONO % 4.5 % (1.0-6.0); PLATELET COUNT 69 10^3/uL (120.0-450.0); RBC 3.63 10^6/uL (3.5-6.1); RED CELL DISTRIBUTION WIDTH 15.4 % (11.5-14.5); WHITE BLOOD COUNT 8.8 10^3/uL (4.5-11.0)
[2018-08-21 06:42] LABS: ALB/GLOB RATIO 1.1 (1.1-1.8); ALBUMIN 2.1 g/dL (3.0-4.8); ALT/SGPT 103 U/L (7-56); AST/SGOT 84 U/L (17-59); BLOOD UREA NITROGEN 43 mg/dL (7-21); CALCIUM 7.6 mg/dL (8.4-10.5); GFR NON-AFRICAN AMERICAN > 60
--- NOTE | 2018-08-21 08:34 | CP.PCM.PN ---
Subjective - Date & Time of Evaluation Date of Evaluation: 08/21/18 Time of Evaluation: 08:30 - Subjective Subjective: General Surgery Progress Note for Dr. Du 82M, seen and evaluated at bedside this morning. No acute events overnight. No complaints this morning. Patient tolerating diet. Minimal ambulation. Passing flatus and having BM. Denies f/c, n/v/d, SOB, abdominal pain, CP, or urinary symptoms. Drain: 905cc serous output over 24 hours Objective - Vital Signs/Intake and Output Vital Signs (last 24 hours): Temp Pulse Resp BP Pulse Ox 97.7 F 95 H 16 136/83 93 L 08/21/18 04:00 08/21/18 06:00 08/21/18 04:00 08/21/18 04:00 08/21/18 04:00 Intake and Output: 08/21/18 08/21/18 06:59 18:59 Intake Total 1120 Output Total 2220 Balance -1100 - Medications Medications: Current Medications Acetylcysteine (Acetylcysteine 20%) 4 ml IH [id number] [facility] Last Admin: 08/21/18 01:00 Dose: Not Given Apixaban (Eliquis) 2.5 mg PO BID [facility] Last Admin: 08/09/18 10:14 Dose: Not Given Budesonide (Pulmicort Respules) 0.5 mg IH [id number] [facility] Last Admin: 08/20/18 21:33 Dose: 0.5 mg Clonidine HCl (Catapres Tts1 0.1 Mg/24 Hr) 1 patch TD Q7D@1000 [facility] Last Admin: 08/20/18 11:10 Dose: 1 patch Dextrose (Dextrose 50% Inj) 0 ml IV STAT PRN; Protocol PRN Reason: Hypoglycemia Protocol Diltiazem HCl (Cardizem Cd) 180 mg PO DAILY [facility] Last Admin: 08/20/18 11:06 Dose: 180 mg Enoxaparin Sodium (Lovenox) 60 mg SC Q12 [facility]; Protocol Last Admin: 08/17/18 09:10 Dose: Not Given Enoxaparin Sodium (Lovenox) 30 mg SC DAILY [facility]; Protocol Last Admin: 08/20/18 11:07 Dose: 30 mg Famotidine (Pepcid) 20 mg PO DAILY [facility] Furosemide (Lasix) 20 mg IV DAILY [facility] Last Admin: 08/20/18 11:10 Dose: 20 mg Micafungin Sodium 100 mg/ (Sodium Chloride) 100 mls @ 100 mls/hr IV DAILY KD; Protocol Stop: 08/24/18 13:01 Last Admin: 08/20/18 11:13 Dose: 100 mls/hr Amino Acids/Electrolytes/Dextrose (Clinimix 5/20 % "E" (2000 Ml)) 2,000 mls @ 83.333 mls/hr IV .Q24H KD Last Admin: 08/20/18 17:29 Dose: 83.333 mls/hr Dextrose (Dextrose 5% In Water 1000 Ml) 1,000 mls @ 0 mls/hr IV .Q0M PRN; Protocol PRN Reason: Hypoglycemia Protocol Insulin Human Lispro (Humalog Low) 0 units SC ACHS [facility]; Protocol Last Admin: 08/20/18 23:03 Dose: Not Given Levalbuterol HCl (Xopenex) 0.63 mg IH [id number] [facility] Last Admin: 08/21/18 01:00 Dose: Not Given Lidocaine (Lidoderm) 1 ea TD DAILY [facility] Last Admin: 08/20/18 11:08 Dose: 1 ea Methylprednisolone (Solu-Medrol) 20 mg IV Q12H KD Last Admin: 08/20/18 23:00 Dose: 20 mg Metoprolol Tartrate (Lopressor) 25 mg PO BID [facility] Last Admin: 08/20/18 17:30 Dose: 25 mg Phenytoin (Dilantin) 100 mg PO Q8 KD Last Admin: 08/21/18 05:34 Dose: 100 mg Thiamine HCl (Vitamin B1 Inj) 100 mg IV DAILY [facility] Last Admin: 08/20/18 11:11 Dose: 100 mg Verapamil HCl (Verapamil Inj) 2.5 mg IVP Q6H PRN PRN Reason: for heart ratye >120 Last Admin: 08/17/18 05:27 Dose: 2.5 mg - Labs Labs: 08/21/18 05:40 08/21/18 05:40 PT 14.5 SECONDS (9.4-12.5) H 08/11/18 12:50 INR 1.26 08/11/18 12:50 APTT 33.2 Seconds (25.1-36.5) 08/11/18 12:50 - Constitutional Appears: Well, Non-toxic, No Acute Distress - Head Exam Head Exam: ATRAUMATIC, NORMAL INSPECTION, NORMOCEPHALIC - Eye Exam Eye Exam: EOMI - ENT Exam ENT Exam: Mucous Membranes Moist - Respiratory Exam Respiratory Exam: NORMAL BREATHING PATTERN - GI/Abdominal Exam GI & Abdominal Exam: Soft, Normal Bowel Sounds. absent: Tenderness Additional comments: ostomy pink patent productive - Neurological Exam Neurological Exam: Alert, Awake - Psychiatric Exam Psychiatric exam: Normal Affect, Normal Mood - Skin Skin Exam: Dry, Intact, Normal Color, Warm Assessment and Plan - Assessment and Plan (Free Text) Assessment: 82M s/p ex lap for ileal perforation POD10, acutely deconditioned and malnourished Plan: Continue HHD and TPN Fingerstick glucose Q6H w/ insulin coverage Chest physiotherapy and pulmonary hygiene Continue to monitor mayra and ostomy output Continue IV Abx per ID F/u body fluid cultures F/u body fluid specific gravity, LDH, and protein Patient needs physical therapy secondary to his deconditioning Further recommendations per Dr. Florian Metz PGY1
[2018-08-21] MEDS: Insulin Lispro (humaLOG) LOW Coverage SC SCH ×4 (08:53→21:55)
[2018-08-21] MEDS: Budesonide 0.5 mg/2 ml Inhal Susp UD IH SCH ×2 (09:15→22:18)
[2018-08-21 09:29] LABS: LYMPHOCYTE 5 % (22.0-35.0); MONOCYTE 3 % (1.0-6.0); NEUTROPHIL 92 % (50.0-70.0)
[2018-08-21] MEDS: diltiaZEM 180 mg/24 Hours CD Cap PO SCH (10:11)
[2018-08-21] MEDS: Enoxaparin 30 mg Syringe SC SCH (10:12)
[2018-08-21] MEDS: MethylPREDNISolone 40 mg Vial IV SCH ×2 (10:12→21:59)
[2018-08-21] MEDS: Micafungin 100 MG in Sodium Chloride 0.9% 100 ML IV SCH (10:16)
[2018-08-21] MEDS: Lidocaine 5% Patch TD SCH (10:29)
--- NOTE | 2018-08-21 10:39 | RAD ---
Date of service: 08/21/2018 HISTORY: follow up COMPARISON: 08/20/2018 FINDINGS: The right PICC line terminates in the SVC. LUNGS: There is patient rotation to the left. The right lung is clear. There is left retrocardiac airspace disease. PLEURA: No right pleural effusions or pneumothorax. No change in small left pleural effusion. CARDIOVASCULAR: The heart is normal in size. Atherosclerotic aortic arch calcifications are present. OSSEOUS STRUCTURES: Within normal limits for the patient's age. VISUALIZED UPPER ABDOMEN: Normal. OTHER FINDINGS: None. IMPRESSION: No significant interval change in left lower lobe atelectasis/pneumonia and small left pleural effusion. Right PICC line terminates in the SVC.
--- NOTE | 2018-08-21 11:14 | CP.PCM.PCO ---
Physician Communication Note - Physician Communication Note Physician Communication Note: On TPN/Incr diet cautiously/Starting PT Ambulation
[2018-08-21] MEDS: Thiamine 100 mg/ml Inj IV SCH (11:20)
--- NOTE | 2018-08-21 11:35 | PN ---
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 Developed ileal perforation and end up having reexploration and ileal resection with end-to-end anastomosis. During his stay in the ICU, he developed respiratory failure, was intubated, but lateral on had a bronchoscopy done. Mucus plug was aspirated and eventually was extubated. He just started to tolerate food, doing a little better. Transferred to telemetry. PHYSICAL EXAMINATION: GENERAL: On examination today, he is awake, alert, oriented, able to communicate. VITAL SIGNS: He is afebrile, pulse 105, respirations 16, blood pressure 148/78. LUNGS: Bilateral fair airflow. Decreased at bases. HEART: S1 and S2 audible. ABDOMEN: Soft. Nontender. No rebound. Slight discomfort at surgical site. Colostomy is functional. EXTREMITIES: Bilateral leg, no edema. LABORATORY EXAM: WBC 8.8, hemoglobin 10.7, hematocrit 33.6, platelet of 69. Chemistry: Sodium 136, potassium 4.5, chloride 102, CO2 of 34, BUN 43, creatinine 0.6, blood sugar of 155, phosphorus 2, total bili 1.6, AST 84, ALT 103. ASSESSMENT: 1. Status post ileal resection. 2. Status post right hemicolectomy. 3. History of rectal cancer in the remote past and has colostomy done. 4. Improving pneumonia. 5. Seizure disorder. 6. Thrombocytopenia. 7. Deconditioning and difficulty walking. PLAN: We will monitor his electrolyte. Encourage ambulation. Currently, he is on diltiazem CD. He is on TPN. He is off of anticoagulant for now. We will sit him out of bed to chair. Encourage him ambulation. We will follow up the patient in the a.m. Tri Fleming MD
--- NOTE | 2018-08-21 11:46 | CP.PCM.PN ---
Subjective - Date & Time of Evaluation Date of Evaluation: 08/21/18 Time of Evaluation: 10:05 - Subjective Subjective: Still not eating as well as he should be but no nausea, no increase in abdominal pain, no fevers. Objective - Vital Signs/Intake and Output Vital Signs (last 24 hours): Temp Pulse Resp BP Pulse Ox 97.4 F L 96 H 17 114/63 97 08/20/18 04:00 08/20/18 07:00 08/20/18 07:00 08/20/18 07:00 08/20/18 07:00 Intake and Output: 08/20/18 08/20/18 06:59 18:59 Intake Total 1096 Output Total 1110 Balance -14 - Medications Medications: Current Medications Acetylcysteine (Acetylcysteine 20%) 4 ml IH [id number] [facility] Last Admin: 08/20/18 07:38 Dose: 4 ml Apixaban (Eliquis) 2.5 mg PO BID [facility] Last Admin: 08/09/18 10:14 Dose: Not Given Budesonide (Pulmicort Respules) 0.5 mg IH [id number] [facility] Last Admin: 08/20/18 07:38 Dose: 0.5 mg Clonidine HCl (Catapres Tts1 0.1 Mg/24 Hr) 1 patch TD Q7D@1000 [facility] Last Admin: 08/13/18 09:12 Dose: 1 patch Dextrose (Dextrose 50% Inj) 0 ml IV STAT PRN; Protocol PRN Reason: Hypoglycemia Protocol Diltiazem HCl (Cardizem Cd) 180 mg PO DAILY [facility] Last Admin: 08/19/18 10:44 Dose: 180 mg Enoxaparin Sodium (Lovenox) 60 mg SC Q12 [facility]; Protocol Last Admin: 08/17/18 09:10 Dose: Not Given Enoxaparin Sodium (Lovenox) 30 mg SC DAILY [facility]; Protocol Last Admin: 08/19/18 10:47 Dose: 30 mg Famotidine (Pepcid) 20 mg IVP DAILY [facility] Last Admin: 08/19/18 10:44 Dose: 20 mg Furosemide (Lasix) 20 mg IV DAILY [facility] Last Admin: 08/19/18 10:43 Dose: 20 mg Hydromorphone HCl (Dilaudid) 0.5 mg IVP Q4H PRN PRN Reason: Pain, moderate (4-7) Last Admin: 08/20/18 01:51 Dose: 0.5 mg Micafungin Sodium 100 mg/ (Sodium Chloride) 100 mls @ 100 mls/hr IV DAILY KD; Protocol Stop: 08/24/18 13:01 Last Admin: 08/19/18 10:48 Dose: 100 mls/hr Amino Acids/Electrolytes/Dextrose (Clinimix 5/20 % "E" (2000 Ml)) 2,000 mls @ 83.333 mls/hr IV .Q24H KD Last Admin: 08/19/18 20:33 Dose: 83.333 mls/hr Dextrose (Dextrose 5% In Water 1000 Ml) 1,000 mls @ 0 mls/hr IV .Q0M PRN; Protocol PRN Reason: Hypoglycemia Protocol Insulin Human Lispro (Humalog Low) 0 units SC ACHS KD; Protocol Last Admin: 08/20/18 09:01 Dose: Not Given Insulin Human Regular (Humulin R Med) 0 units SC Q6H KD; Protocol Last Admin: 08/20/18 08:59 Dose: Not Given Levalbuterol HCl (Xopenex) 0.63 mg IH [id number] KD Last Admin: 08/20/18 07:38 Dose: 0.63 mg Lidocaine (Lidoderm) 1 ea TD DAILY KD Last Admin: 08/19/18 10:45 Dose: 1 ea Methylprednisolone (Solu-Medrol) 20 mg IV Q12H KD Last Admin: 08/19/18 21:32 Dose: 20 mg Metoprolol Tartrate (Lopressor) 25 mg PO BID KD Last Admin: 08/19/18 18:11 Dose: 25 mg Phenytoin (Dilantin) 100 mg PO Q8 KD Last Admin: 08/20/18 09:02 Dose: 100 mg Thiamine HCl (Vitamin B1 Inj) 100 mg IV DAILY KD Last Admin: 08/19/18 13:48 Dose: 100 mg Verapamil HCl (Verapamil Inj) 2.5 mg IVP Q6H PRN PRN Reason: for heart ratye >120 Last Admin: 08/17/18 05:27 Dose: 2.5 mg - Labs Labs: 08/20/18 05:30 08/20/18 05:30 PT 14.5 SECONDS (9.4-12.5) H 10/31/18 12:50 INR 1.26 08/11/18 12:50 APTT 33.2 Seconds (25.1-36.5) 08/11/18 12:50 - Constitutional Appears: Cachectic, Chronically Ill - Head Exam Head Exam: NORMAL INSPECTION - ENT Exam ENT Exam: Mucous Membranes Moist - Neck Exam Neck Exam: absent: Meningismus - Respiratory Exam Respiratory Exam: Decreased Breath Sounds - Cardiovascular Exam Cardiovascular Exam: +S1, +S2 - GI/Abdominal Exam GI & Abdominal Exam: Soft. absent: Tenderness Additional comments: RUSSELL drain in place with serous fluid but still significant amount of drainage Assessment and Plan - Assessment and Plan (Free Text) Plan: Assessment sepsis S/P VDRF due to perforated ileum S/P ex-lap and resection of terminal ileum and primary anastomosis, growing VRE and C. tropicalis POD #10 S/P treatment for HCAP rectal cancer atrial fibrillation GERD anxiety disorder chronic CHF CAD Plan continue Daptomycin, Merrem and Mycamine and will continue to follow clinically and trend WBC count, as well as monitor RUSSELL drain output and see how much the patient eats - patient still continues to be very ill discussed with Dr. Du today - he will need to continue TPN
--- NOTE | 2018-08-21 12:19 | PN ---
DATE: 08/21/2018 PULMONARY PROGRESS NOTE SUBJECTIVE: The patient is sitting in bed. He states that he is sitting in bed comfortably. He states that he has no shortness of breath. He complains of being hospitalized for inordinate amount of time (however, this is really only since 07/30). The patient states that his respiratory status is improved over the last week or so. PHYSICAL EXAMINATION: GENERAL: The patient is sitting in bed with no acute respiratory distress. Oxygen is in place with an oxygen saturation of 99%. VITAL SIGNS: Remains stable with a heart rate of 80, respiratory rate of 18, blood pressure 160/88. The patient is afebrile. HEENT: Normocephalic, atraumatic. There is no jugular venous distention. CARDIOVASCULAR: Regular rhythm. S1, S2. Soft S3 gallop. Soft systolic ejection murmur at the lower left sternal border. CHEST: Global decrease in breath sounds. Minimal rhonchi and rales. No wheezing appreciated. ABDOMEN: Soft. Bowel sounds normoactive without mass, guarding, rebound or organomegaly. EXTREMITIES: Reveal trace edema. No clubbing or cyanosis. There is no Homans' sign. SKIN: No rash or excoriation. NEUROLOGIC: No focal findings noted. LABORATORY DATA: Chest x-ray done today was reviewed. There is no significant change when compared to the x-ray of yesterday and the day prior to that, there are effusions and haziness with atelectasis, no acute findings (this will be discussed with the attending and radiology). CLINICAL IMPRESSION: 1. Chronic obstructive pulmonary disease, stable. 2. Recurrent left lung atelectasis and effusions. 3. Atrial fibrillation. 4. Intra-abdominal perforation secondary to right hemicolectomy. PLAN: Continue vigorous supportive care for the chronic obstructive pulmonary disease with improved mobility, hopefully the atelectasis will improve. Continue incentive spirometry, chest physical therapy has been discussed with the patient. We will discuss these findings with the primary medical doctor and see if further intervention will be required. Dr. Blevins will follow up on Thursday morning for continued care and we will follow closely with you. Thank you for the opportunity to care for this gentleman. Tulio Ramos MD [facility] # [id number] [place]
--- NOTE | 2018-08-21 14:48 | PN ---
DATE: 08/21/2018 SUBJECTIVE: This 82-year-old male was examined at his bedside on the morning of 08/21/2018. Present for this interview was nurse, Jackie Luna, registered nurse. The patient was seen lying in bed. He remains with poor appetite and is receiving parenteral nutrition. Peripheral IV fluids have been discontinued and he remains in an atrial fibrillation rhythm on the air sampling and monitoring. He denies fever, chills, chest pain or breathlessness at rest and is wearing nasal O2. PHYSICAL EXAMINATION: VITAL SIGNS: Temperature is 97.7, respirations 18, pulse 105 and blood pressure 148/78, pulse ox is 93% on nasal O2. HEENT: Head: Normocephalic, atraumatic. Eyes: No icterus. NECK: Supple. HEART: Irregular S1, S2. LUNGS: With occasional rhonchi that cleared with coughing. ABDOMEN: Soft. Josué-Murdock draining clear serosanguineous fluid. Colostomy functioning. EXTREMITIES: No edema. SKIN: Without rash. NEUROLOGICAL: Deconditioned. VASCULAR: Legs warm to touch. PSYCHOLOGICAL: Alert with periods of confusion. LABORATORY DATA: White count 8800, hemoglobin 10.7, hematocrit 33.6, platelets 69,000. Sodium 136, K 4.5, chloride 102, bicarb 34, BUN 43, creatinine 0.6, random blood sugar 155, calcium 7.6. Phosphorous 2.0. Bilirubin 1.6, AST 84, ALT 103, alk phos 89. Albumin 2.1. DIAGNOSTIC DATA: Chest x-ray completed earlier this morning was reviewed. It shows his PICC line terminating in his superior vena cava. Right lung was clear. There was airspace disease retrocardiac in the left lung. The patient had no pleural effusions, no pneumothorax. There is a persistent small left pleural effusion. IMPRESSION: An 82-year-old male status post right hemicolectomy for cecal mass, nonmalignant. Hospital course complicated by acute renal failure, persistent prerenal azotemia in the setting of atrial fibrillation and exacerbation of chronic obstructive pulmonary disease intubation x2 secondary to mucus plugging and also exploratory laparotomy for perforated ileum, now with marked deconditioning, chronic atrial fibrillation, systolic congestive heart failure, seizure syndrome, type 2 diabetes mellitus, anemia of chronic disease, thrombocytopenia and wound culture is growing vancomycin resistant Enterococci and Reshma tropicalis. PLAN: The plan is to continue Xopenex inhalational therapy, Pulmicort inhalational therapy and Mucomyst inhalational therapy as well as Cardizem CD, clonidine patch, parenteral hyperal, Dilantin, Humalog insulin coverage, IV Lasix, Lidoderm, Lopressor, subcu Lovenox, IV micafungin, Pepcid, IV Solu-Medrol dose reduced p.r.n. verapamil injection for tachycardia. The patient continues on BiPAP, chest PT, pulmonary toiletry, heart healthy soft bland diet, aspiration precautions, fall precautions, isolation, bedside physical therapy. Calorie count has been requested. Consideration may be needed for PEG tube placement. All of the above was reviewed with nurse, Jeremy. The patient will continue on pulmonary toiletry and IV Lasix as outlined with plans for repeat comprehensive metabolic panel, magnesium, phosphorus and CBC in a.m. Phosphorous level is low. Oral replacement therapy will be considered pending repeat labs in am. Sara Ramirez MD MTDD
--- NOTE | 2018-08-21 15:22 | PN ---
DATE: 08/21/[address] Greenfield. SUBJECTIVE: The patient is currently short of breath, but refuses BiPAP. PHYSICAL EXAMINATION: VITAL SIGNS: Blood pressure 115/87, heart rate 105, respirations 32, temperature 97.7. HEENT: Left upper eye ecchymosis. NECK: No JVD. CHEST: Bilateral rhonchi. HEART: S1 and S2 regular. EXTREMITIES: 1+ pitting edema. LABORATORY DATA: Hemoglobin and hematocrit 10.7 and 33.6, white count 8.8, platelet count 69,000. Today's SMA-7: Sodium 136, potassium 4.5, chloride 102, CO2 of 34, glucose 155, BUN 43, creatinine 0.6. Echocardiography study last month revealed normal ejection fraction. Moderate mitral insufficiency and moderate tricuspid insufficiency with mild to moderate pulmonic valvular insufficiency. EKG on 08/06/2018 revealed atrial flutter with variable AV block. Possible anterior infarct, age indeterminate. ASSESSMENT: 1. Atrial fibrillation/atrial flutter. 2. 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 3. Status post small bowel resection. 4. Gastrointestinal bleeding. 5. Left lower lobe pneumonia with small left pleural effusion. RECOMMENDATIONS: Continue Cardizem CD at 180 mg once a day, clonidine patch 0.1 mg weekly, Dilantin 100 mg t.i.d., Lasix 20 mg intravenously daily, Lopressor 25 mg twice a day. Both Eliquis and Lovenox are on hold. Delfin Oconnell MD
[2018-08-22] MEDS: Acetylcysteine 20% Inhal Soln (4ml) IH SCH ×4 (03:20→20:52)
[2018-08-22] MEDS: Levalbuterol 0.63 MG/3 ML Inhal Soln UD IH SCH ×4 (03:21→20:52)
[2018-08-22] MEDS: Phenytoin 100 mg/4 ml Oral Susp UD PO SCH ×3 (05:49→22:06)
[2018-08-22] MEDS: Budesonide 0.5 mg/2 ml Inhal Susp UD IH SCH ×2 (07:30→20:52)
[2018-08-22 07:39] LABS: ALBUMIN 2.1 g/dL (3.0-4.8); ALT/SGPT 159 U/L (7-56); AST/SGOT 137 U/L (17-59); BLOOD UREA NITROGEN 47 mg/dL (7-21); CALCIUM 7.5 mg/dL (8.4-10.5); GFR NON-AFRICAN AMERICAN > 60
[2018-08-22 07:40] LABS: EOS % 0.2 % (1.5-5.0); GRAN # 7.5 (1.4-6.5); GRAN % 89.7 % (50.0-68.0); HEMOGLOBIN 10.7 g/dL (14.0-18.0); LYMPH # 0.4 (1.2-3.4); LYMPH % 4.2 % (22.0-35.0); MEAN CORPUSCULAR HEMOGLOBIN 29.6 pg (25.0-35.0); MEAN CORPUSCULAR HGB CONC 32.2 g/dl (31.0-37.0); MONO # 0.5 (0.1-0.6); MONO % 5.9 % (1.0-6.0); RBC 3.61 10^6/uL (3.5-6.1); RED CELL DISTRIBUTION WIDTH 15.8 % (11.5-14.5); WHITE BLOOD COUNT 8.4 10^3/uL (4.5-11.0)
--- NOTE | 2018-08-22 07:43 | CP.PCM.PN ---
Subjective - Date & Time of Evaluation Date of Evaluation: 08/22/18 Time of Evaluation: 06:50 - Subjective Subjective: Patient seen and examined. No acute events over night. Denies nausea/vomiting. Tolerating diet. 340cc/24hrs serous mayra drain output. Objective - Vital Signs/Intake and Output Vital Signs (last 24 hours): Temp Pulse Resp BP Pulse Ox 98.5 F 114 H 20 130/75 97 08/22/18 06:00 08/22/18 06:00 08/22/18 06:00 08/22/18 06:00 08/22/18 06:00 Intake and Output: 08/22/18 08/22/18 06:59 18:59 Intake Total 1356 Output Total 2440 Balance -1084 - Medications Medications: Current Medications Acetylcysteine (Acetylcysteine 20%) 4 ml IH [id number] [facility] Last Admin: 08/22/18 07:30 Dose: 4 ml Apixaban (Eliquis) 2.5 mg PO BID [facility] Last Admin: 08/09/18 10:14 Dose: Not Given Budesonide (Pulmicort Respules) 0.5 mg IH [id number] [facility] Last Admin: 08/22/18 07:30 Dose: 0.5 mg Clonidine HCl (Catapres Tts1 0.1 Mg/24 Hr) 1 patch TD Q7D@1000 [facility] Last Admin: 08/20/18 11:10 Dose: 1 patch Dextrose (Dextrose 50% Inj) 0 ml IV STAT PRN; Protocol PRN Reason: Hypoglycemia Protocol Diltiazem HCl (Cardizem Cd) 180 mg PO DAILY [facility] Last Admin: 08/21/18 10:11 Dose: 180 mg Enoxaparin Sodium (Lovenox) 60 mg SC Q12 KD; Protocol Last Admin: 08/17/18 09:10 Dose: Not Given Enoxaparin Sodium (Lovenox) 30 mg SC DAILY [facility]; Protocol Last Admin: 08/21/18 10:12 Dose: 30 mg Famotidine (Pepcid) 20 mg PO DAILY [facility] Last Admin: 08/21/18 10:10 Dose: 20 mg Furosemide (Lasix) 20 mg IV DAILY [facility] Last Admin: 08/21/18 10:11 Dose: 20 mg Micafungin Sodium 100 mg/ (Sodium Chloride) 100 mls @ 100 mls/hr IV DAILY [facility]; Protocol Stop: 08/24/18 13:01 Last Admin: 08/21/18 10:16 Dose: 100 mls/hr Amino Acids/Electrolytes/Dextrose (Clinimix 5/20 % "E" (2000 Ml)) 2,000 mls @ 83.333 mls/hr IV .Q24H KD Last Admin: 08/21/18 20:48 Dose: 83.333 mls/hr Dextrose (Dextrose 5% In Water 1000 Ml) 1,000 mls @ 0 mls/hr IV .Q0M PRN; Protocol PRN Reason: Hypoglycemia Protocol Daptomycin 500 mg/ Sodium (Chloride) 100 mls @ 200 mls/hr IV Q24H KD; Protocol Stop: 09/05/18 10:01 Meropenem (Merrem Iv 1 Gm Premix) 1 gm in 50 mls @ 100 mls/hr IVPB Q8 [facility]; Protocol Stop: 08/29/18 14:01 Insulin Human Lispro (Humalog Low) 0 units SC ACHS [facility]; Protocol Last Admin: 08/21/18 21:55 Dose: Not Given Levalbuterol HCl (Xopenex) 0.63 mg IH [id number] [facility] Last Admin: 08/22/18 07:30 Dose: 0.63 mg Lidocaine (Lidoderm) 1 ea TD DAILY [facility] Last Admin: 08/21/18 10:29 Dose: Not Given Methylprednisolone (Solu-Medrol) 20 mg IV Q12H [facility] Last Admin: 08/21/18 21:59 Dose: 20 mg Metoprolol Tartrate (Lopressor) 25 mg PO BID [facility] Last Admin: 08/21/18 18:30 Dose: 25 mg Phenytoin (Dilantin) 100 mg PO Q8 [facility] Last Admin: 08/22/18 05:49 Dose: 100 mg Verapamil HCl (Verapamil Inj) 2.5 mg IVP Q6H PRN PRN Reason: for heart ratye >120 Last Admin: 08/17/18 05:27 Dose: 2.5 mg - Labs Labs: 08/21/18 05:40 08/22/18 07:00 PT 14.5 SECONDS (9.4-12.5) H 08/11/18 12:50 INR 1.26 08/11/18 12:50 APTT 33.2 Seconds (25.1-36.5) 08/11/18 12:50 - Constitutional Appears: No Acute Distress - Head Exam Head Exam: NORMOCEPHALIC - Eye Exam Eye Exam: EOMI, Normal appearance - ENT Exam ENT Exam: Mucous Membranes Moist - Respiratory Exam Respiratory Exam: NORMAL BREATHING PATTERN - Cardiovascular Exam Cardiovascular Exam: +S1, +S2 - GI/Abdominal Exam GI & Abdominal Exam: Soft. absent: Distended, Firm, Guarding, Tenderness, Rebound - Neurological Exam Neurological Exam: Alert, Awake - Psychiatric Exam Psychiatric exam: Normal Mood Assessment and Plan - Assessment and Plan (Free Text) Assessment: 82M s/p right hemicolectomy, s/p ex lap for ileal perforation POD10, deconditioned and malnourished Plan: C/w TPN HHD Fingerstick glucose Q6H w/ insulin coverage Chest physiotherapy and pulmonary hygiene Continue to monitor mayra and ostomy output Continue IV Abx per ID F/u body fluid cultures F/u body fluid specific gravity, LDH, and protein OOB to chair with assistance Patient needs physical therapy secondary to his deconditioning Further recommendations per Dr. Florian Aly PGY3
[2018-08-22] MEDS: Insulin Lispro (humaLOG) LOW Coverage SC SCH ×4 (08:36→22:04)
[2018-08-22] MEDS: Enoxaparin 30 mg Syringe SC SCH (10:00)
[2018-08-22] MEDS: diltiaZEM 180 mg/24 Hours CD Cap PO SCH (10:02)
[2018-08-22] MEDS: Lidocaine 5% Patch TD SCH (10:03)
[2018-08-22] MEDS: DAPTOmycin 500 MG in Sodium Chloride 0.9% 100 ML IV SCH (10:03)
[2018-08-22] MEDS: MethylPREDNISolone 40 mg Vial IV SCH ×2 (10:05→22:07)
--- NOTE | 2018-08-22 11:00 | CP.PCM.PN ---
Subjective - Date & Time of Evaluation Date of Evaluation: 08/22/18 Time of Evaluation: 10:15 - Subjective Subjective: Patient is resting comfortably in bed, only eating half of what he is supposed to eat, no fevers overnight, still with significant drainage from the RUSSELL drain. Objective - Vital Signs/Intake and Output Vital Signs (last 24 hours): Temp Pulse Resp BP Pulse Ox 97.7 F 105 H 16 148/78 93 L 08/21/18 04:00 08/21/18 10:11 08/21/18 04:00 08/21/18 10:11 08/21/18 04:00 Intake and Output: 08/21/18 08/21/18 06:59 18:59 Intake Total 1120 Output Total 2220 Balance -1100 - Medications Medications: Current Medications Acetylcysteine (Acetylcysteine 20%) 4 ml IH [id number] [facility] Last Admin: 08/21/18 01:00 Dose: Not Given Apixaban (Eliquis) 2.5 mg PO BID [facility] Last Admin: 08/09/18 10:14 Dose: Not Given Budesonide (Pulmicort Respules) 0.5 mg IH [id number] [facility] Last Admin: 08/20/18 21:33 Dose: 0.5 mg Clonidine HCl (Catapres Tts1 0.1 Mg/24 Hr) 1 patch TD Q7D@1000 [facility] Last Admin: 08/20/18 11:10 Dose: 1 patch Dextrose (Dextrose 50% Inj) 0 ml IV STAT PRN; Protocol PRN Reason: Hypoglycemia Protocol Diltiazem HCl (Cardizem Cd) 180 mg PO DAILY [facility] Last Admin: 08/21/18 10:11 Dose: 180 mg Enoxaparin Sodium (Lovenox) 60 mg SC Q12 [facility]; Protocol Last Admin: 08/17/18 09:10 Dose: Not Given Enoxaparin Sodium (Lovenox) 30 mg SC DAILY [facility]; Protocol Last Admin: 08/21/18 10:12 Dose: 30 mg Famotidine (Pepcid) 20 mg PO DAILY [facility] Last Admin: 08/21/18 10:10 Dose: 20 mg Furosemide (Lasix) 20 mg IV DAILY [facility] Last Admin: 08/21/18 10:11 Dose: 20 mg Micafungin Sodium 100 mg/ (Sodium Chloride) 100 mls @ 100 mls/hr IV DAILY [facility]; Protocol Stop: 08/24/18 13:01 Last Admin: 08/21/18 10:16 Dose: 100 mls/hr Amino Acids/Electrolytes/Dextrose (Clinimix 5/20 % "E" (2000 Ml)) 2,000 mls @ 83.333 mls/hr IV .Q24H [facility] Last Admin: 08/20/18 17:29 Dose: 83.333 mls/hr Dextrose (Dextrose 5% In Water 1000 Ml) 1,000 mls @ 0 mls/hr IV .Q0M PRN; Protocol PRN Reason: Hypoglycemia Protocol Insulin Human Lispro (Humalog Low) 0 units SC ACHS [facility]; Protocol Last Admin: 08/21/18 08:53 Dose: 1 u Levalbuterol HCl (Xopenex) 0.63 mg IH [id number] [facility] Last Admin: 08/21/18 01:00 Dose: Not Given Lidocaine (Lidoderm) 1 ea TD DAILY [facility] Last Admin: 08/21/18 10:29 Dose: Not Given Methylprednisolone (Solu-Medrol) 20 mg IV Q12H [facility] Last Admin: 08/21/18 10:12 Dose: 20 mg Metoprolol Tartrate (Lopressor) 25 mg PO BID [facility] Last Admin: 08/21/18 10:10 Dose: 25 mg Phenytoin (Dilantin) 100 mg PO Q8 [facility] Last Admin: 08/21/18 05:34 Dose: 100 mg Verapamil HCl (Verapamil Inj) 2.5 mg IVP Q6H PRN PRN Reason: for heart ratye >120 Last Admin: 08/17/18 05:27 Dose: 2.5 mg - Labs Labs: 08/21/18 05:40 08/21/18 05:40 PT 14.5 SECONDS (9.4-12.5) H 08/11/18 12:50 INR 1.26 08/11/18 12:50 APTT 33.2 Seconds (25.1-36.5) 08/11/18 12:50 - Constitutional Appears: Cachectic, Chronically Ill - Head Exam Head Exam: NORMAL INSPECTION - ENT Exam ENT Exam: Mucous Membranes Moist - Respiratory Exam Respiratory Exam: Decreased Breath Sounds - Cardiovascular Exam Cardiovascular Exam: +S1, +S2 - GI/Abdominal Exam GI & Abdominal Exam: Soft. absent: Tenderness Additional comments: RUSSELL drain in place with serous discharge Assessment and Plan - Assessment and Plan (Free Text) Plan: Assessment sepsis S/P VDRF due to perforated ileum S/P ex-lap and resection of terminal ileum and primary anastomosis, growing VRE and C. tropicalis POD #11 S/P treatment for HCAP rectal cancer atrial fibrillation GERD anxiety disorder chronic CHF CAD Plan continue Daptomycin, Merrem and Mycamine and will continue to follow clinically and trend WBC count, as well as monitor RUSSELL drain output and see how much the patient eats - patient still continues to be very ill discussed with Dr. Du - he will need to continue TPN follow up 08/18 final culture results (this is a repeat cx) - still growing gram positive cocci
[2018-08-22] MEDS: Micafungin 100 MG in Sodium Chloride 0.9% 100 ML IV SCH (11:04)
--- NOTE | 2018-08-22 12:16 | RAD ---
Date of service: 08/22/2018 HISTORY: f/u COMPARISON: 08/21/2018. FINDINGS: The right PICC line terminates in the SVC. LUNGS: The right lung is well inflated and clear. There is a left retrocardiac opacity. PLEURA: Small left pleural effusion. No right pleural effusion or pneumothorax. CARDIOVASCULAR: Persistent moderate cardiomegaly. Macro arge. OSSEOUS STRUCTURES: Within normal limits for the patient's age. VISUALIZED UPPER ABDOMEN: Normal. OTHER FINDINGS: None. IMPRESSION: Little interval change in left lower lobe atelectasis/pneumonia and small left pleural effusion. No other significant interval change.
--- NOTE | 2018-08-22 14:33 | PN ---
DATE: 08/22/2018 SUBJECTIVE: The patient has no complaints of any chest pain. No shortness of breath. He says he was able to sleep overnight. PHYSICAL EXAMINATION: VITAL SIGNS: Temperature is 98.5, pulse of 106, blood pressure 129/86, respirations are 20. GENERAL: The patient is lying in bed, flat, comfortable. HEENT: No oral lesion. Anicteric sclerae. Moist mucosa. NECK: No JVD, adenopathy, or thyromegaly. CARDIOVASCULAR: S1 and S2, regular. No murmurs, rubs, or gallops. LUNGS: Clear to auscultation bilaterally. No wheeze, rales, or rhonchi. ABDOMEN: Positive for ostomy. EXTREMITIES: No cyanosis, clubbing or edema. LABORATORY DATA: White count of 8.4, hemoglobin 10.7. Creatinine is 0.6. ASSESSMENT: 1. Status post right hemicolectomy. 2. Status post ileal resection. 3. Rectal cancer. 4. Colostomy. 5. Seizure disorder. 6. Thrombocytopenia. 7. Coronary artery disease. PLAN: The patient is currently comfortable. The patient is on daptomycin, meropenem and Mycamine. He is being followed by Infectious Disease. The patient is on Cardizem. He is going to continue with Dilantin for his seizures. He is on Eliquis for anticoagulation. He is on Lasix daily. He is receiving Lovenox for anticoagulation. His Eliquis has been placed on hold. His body fluids indicated that he has VRE. Arnie Pool MD
[2018-08-22] MEDS: Meropenem IV 1 gm in NS 1 GM/50 ML BAG IVPB SCH ×2 (14:34→22:06)
--- NOTE | 2018-08-22 17:23 | PN ---
DATE: 08/22/2018 SUBJECTIVE: The patient's shortness of breath has improved. He denies any rectal bleeding. PHYSICAL EXAMINATION VITAL SIGNS: Blood pressure 129/86, heart rate 106, temperature 98.5, respirations 20. HEENT: Left upper eye ecchymosis. CHEST: Bilateral rhonchi. HEART: S1, S2, irregular. EXTREMITIES: No edema. LABORATORY DATA: Today's hemoglobin and hematocrit 10.7 and 33.2. Today's platelet count is 79,000. SMA-7: Sodium 134, potassium 4.5, chloride 102, CO2 of 31, glucose 156, BUN 47, creatinine 0.6. Calcium is below normal at 7.5. Magnesium and phosphorus are within normal limits. ASSESSMENT: 1. Atrial fibrillation/atrial flutter. 2. History of colostomy. 3. Gastrointestinal bleeding. 4. Left lower lobe pneumonia with pleural effusion. 5. Thrombocytopenia. 6. Prerenal azotemia. 7. Hypocalcemia. RECOMMENDATIONS: Continue Cardizem CD 180 mg once a day, clonidine patch 0.1 mg weekly, and daptomycin 500 mg intravenously daily was started today. Continue Dilantin 100 mg every 8 hours, Lasix 20 mg intravenously daily, micafungin at 100 mg intravenously daily, and verapamil 2.5 mg intravenously every 6 hours as needed. Delfin Oconnell MD
--- NOTE | 2018-08-22 21:26 | PN ---
DATE: 08/22/2018 SUBJECTIVE: This 82-year-old male remains hospitalized on the cardiac thomas. He is wearing nasal O2 for shortness of breath at rest. He remains in an atrial fibrillation rhythm on the rn cardiac and yesterday was noted to have hypphosphatemia. The patient is beginning to eat better and reportedly ate 85% of his breakfast this morning. Repeat cultures of his wounds are growing VRE, sensitive to Zyvox, and on review of the patient's medication profile, he has been started on meropenem 1 g IV every 8 hours by Infectious Disease. There have been no reports of fever or chills this morning and he denied any hemoptysis or melena. PHYSICAL EXAMINATION: VITAL SIGNS: Temperature 98.2, respirations 20, blood pressure 124/73, pulse 106 irregular. HEENT: Head; normocephalic, atraumatic. Eyes, no icterus. NECK: Supple. HEART: Irregular S1, S2. LUNGS: Occasional rhonchi. ABDOMEN: Soft. Colostomy functioning. No rebound. EXTREMITIES: No edema. SKIN: No rash. VASCULAR: Legs warm to touch. PSYCHOLOGICAL: Alert and confused. NEUROLOGIC: Marked deconditioning. LABORATORY DATA: Sodium 134, K 4.5, chloride 102, bicarb 31, BUN 47, creatinine 0.6, random blood sugar 156, calcium 7.5, phosphorus now normal 2.6, magnesium normal 1.8, bilirubin 1.5. AST 137, ALT 159 and alk phos 96. White count 8400, hemoglobin 10.7, hematocrit 33.2 and platelets are 79,000. IMPRESSION: An 82-year-old male status post acute renal failure status post right hemicolectomy for cecal mass and also status post exploratory laparotomy for perforated ileum that was repaired with comorbidities of hypophosphatemia improved, prerenal azotemia in the setting of IV Solu-Medrol usage and chronic systolic congestive heart failure and chronic obstructive pulmonary disease, chronic hypertension, seizure syndrome, atrial fibrillation, insulin-dependent diabetes mellitus, marked deconditioning and wound cultures growing vancomycin-resistant Enterococcus and Reshma tropicalis. PLAN: At present, on review of medication profile, will be to continue IV daptomycin, IV meropenem, and IV micafungin under the direction of Infectious Disease. He will also continue on Mucomyst inhalational therapy, Xopenex inhalational therapy, Pulmicort inhalational therapy, and reducing dosages of IV Solu-Medrol. He will be continued on Cardizem, clonidine and IV Lasix, as well as Lopressor for blood pressure and rate control for atrial fibrillation, and he does continue on subcu Lovenox for DVT prevention. He is scheduled for repeat comprehensive metabolic panel, magnesium, phosphorus and CBC levels in the a.m. He is encouraged to eat his heart-healthy, soft, bland, low-carbohydrate diet and is receiving pulmonary toiletry, chest PT, BiPAP, CPAP and remains on fall precautions, aspiration precautions, isolation precautions and seizure precautions. He will be encouraged to corroborate with physical therapy and ultimate plan will be for transfer to subacute rehab if he should become stable and stronger enough to tolerate this. Sara Ramirez MD MTDD
[2018-08-23] MEDS: Acetylcysteine 20% Inhal Soln (4ml) IH SCH ×4 (01:22→21:35)
[2018-08-23] MEDS: Levalbuterol 0.63 MG/3 ML Inhal Soln UD IH SCH ×4 (01:23→21:35)
[2018-08-23] MEDS: Meropenem IV 1 gm in NS 1 GM/50 ML BAG IVPB SCH (05:16)
[2018-08-23] MEDS: Phenytoin 100 mg/4 ml Oral Susp UD PO SCH ×3 (05:22→21:08)
--- NOTE | 2018-08-23 07:01 | PN ---
DATE: 08/23/2018 PULMONARY NOTE SUBJECTIVE: The patient appears comfortable this morning. He is not short of breath at rest. PHYSICAL EXAMINATION: VITAL SIGNS: Temperature is 98.2, pulse is 115, respiratory rate 18-20, blood pressure 104/69. Oxygen saturation on nasal cannula is 95%-97%. HEENT: Normocephalic, atraumatic. No JVD. CARDIOVASCULAR: Systolic ejection murmur at the lower left sternal border. Questionable S3 gallop. LUNGS: Decreased breath sounds at the bases (improved overall). Very minimal/less rhonchi. No wheezing. EXTREMITIES: Mild edema. No cyanosis, no clubbing. Calves are nontender to palpation. GASTROINTESTINAL: Abdomen is soft. The abdomen is now nondistended, and minimal tenderness to palpation. SKIN: No acute rash. NEUROLOGIC: Limited at the present time. IMPRESSION: 1. Intra-abdominal perforation. 2. Status post right hemicolectomy. 3. Recurrent left lung atelectasis. 4. Chronic obstructive pulmonary disease. 5. Congestive heart failure. 6. Atrial fibrillation. 7. Anemia, thrombocytopenia. PLAN: The patient appears quite comfortable this morning. He is not short of breath at rest. He does state to feeling much better overall. I did discuss the case with the night nurse at length. The night nurse stated that the patient had a very uneventful night. On physical exam, his bronchospasm continues to slowly resolve. In addition, the alveolar-arterial gradient also continues to resolve. I will continue with the current nebulizer treatments and low-dose intravenous steroids for now. I will also continue with the pulmonary toilet - chest percussion therapy and suctioning. I would continue with the antibiotic coverage as per Infectious Disease. Input by Dr. Quispe is noted. The leukocytosis has now resolved. Inputs by Cardiology and Surgery are also noted. Clinical status of the patient is significantly improved - compared to the initial presentation. He does remain very guarded overall. I will discuss the above with the attending physician. Rosalio Blevins MD [place]
[2018-08-23 07:12] LABS: EOS % 0.1 % (1.5-5.0); GRAN # 7.97 (1.4-6.5); HEMOGLOBIN 11.1 g/dL (14.0-18.0); LYMPH # 0.5 (1.2-3.4); LYMPH % 5.6 % (22.0-35.0); MEAN CELL VOLUME 92.5 fl (80.0-105.0); MEAN CORPUSCULAR HEMOGLOBIN 29.8 pg (25.0-35.0); MEAN CORPUSCULAR HGB CONC 32.2 g/dl (31.0-37.0); MEAN PLATELET VOLUME 9.6 fl (7.0-11.0); MONO # 0.3 (0.1-0.6); MONO % 3.3 % (1.0-6.0); RBC 3.73 10^6/uL (3.5-6.1); RED CELL DISTRIBUTION WIDTH 16.3 % (11.5-14.5); WHITE BLOOD COUNT 8.8 10^3/uL (4.5-11.0)
[2018-08-23 07:36] LABS: ALB/GLOB RATIO 0.9 (1.1-1.8); ALBUMIN 2.2 g/dL (3.0-4.8); ALT/SGPT 200 U/L (7-56); AST/SGOT 139 U/L (17-59); BLOOD UREA NITROGEN 50 mg/dL (7-21); CALCIUM 7.8 mg/dL (8.4-10.5); GFR NON-AFRICAN AMERICAN > 60
--- NOTE | 2018-08-23 07:44 | CP.PCM.PN ---
Subjective - Date & Time of Evaluation Date of Evaluation: 08/23/18 Time of Evaluation: 07:40 - Subjective Subjective: General Surgery Progress Note per Dr. Du 82M, seen and evaluated at bedside this morning. No acute events overnight. No complaints this morning. Patient tolerating diet. Pain is well controlled. +BM and passing flatus. Denies f/c, n/v/d, SOB, CP, or urinary symptoms. Objective - Vital Signs/Intake and Output Vital Signs (last 24 hours): Temp Pulse Resp BP Pulse Ox 98.5 F 130 H 20 130/69 96 08/23/18 06:00 08/23/18 06:00 08/23/18 06:00 08/23/18 06:00 08/23/18 06:00 Intake and Output: 08/23/18 08/23/18 06:59 18:59 Intake Total 1939 Output Total 2600 Balance -661 - Medications Medications: Current Medications Acetylcysteine (Acetylcysteine 20%) 4 ml IH [id number] [facility] Last Admin: 08/23/18 01:22 Dose: 4 ml Apixaban (Eliquis) 2.5 mg PO BID [facility] Last Admin: 08/09/18 10:14 Dose: Not Given Budesonide (Pulmicort Respules) 0.5 mg IH [id number] [facility] Last Admin: 08/22/18 20:52 Dose: 0.5 mg Clonidine HCl (Catapres Tts1 0.1 Mg/24 Hr) 1 patch TD Q7D@1000 [facility] Last Admin: 08/20/18 11:10 Dose: 1 patch Dextrose (Dextrose 50% Inj) 0 ml IV STAT PRN; Protocol PRN Reason: Hypoglycemia Protocol Diltiazem HCl (Cardizem Cd) 180 mg PO DAILY [facility] Last Admin: 08/22/18 10:02 Dose: 180 mg Enoxaparin Sodium (Lovenox) 60 mg SC Q12 [facility]; Protocol Last Admin: 08/17/18 09:10 Dose: Not Given Enoxaparin Sodium (Lovenox) 30 mg SC DAILY [facility]; Protocol Last Admin: 08/22/18 10:00 Dose: 30 mg Famotidine (Pepcid) 20 mg PO DAILY [facility] Last Admin: 08/22/18 10:02 Dose: 20 mg Furosemide (Lasix) 20 mg IV DAILY [facility] Last Admin: 08/22/18 10:00 Dose: 20 mg Micafungin Sodium 100 mg/ (Sodium Chloride) 100 mls @ 100 mls/hr IV DAILY [facility]; Protocol Stop: 08/24/18 13:01 Last Admin: 08/22/18 11:04 Dose: 100 mls/hr Dextrose (Dextrose 5% In Water 1000 Ml) 1,000 mls @ 0 mls/hr IV .Q0M PRN; Protocol PRN Reason: Hypoglycemia Protocol Daptomycin 500 mg/ Sodium (Chloride) 100 mls @ 200 mls/hr IV Q24H [facility]; Protocol Stop: 09/05/18 10:01 Last Admin: 08/22/18 10:03 Dose: 200 mls/hr Meropenem (Merrem Iv 1 Gm Premix) 1 gm in 50 mls @ 100 mls/hr IVPB Q8 [facility]; Pr otocol Stop: 08/29/18 14:01 Last Admin: 08/23/18 05:16 Dose: 100 mls/hr Amino Acids/Electrolytes/Dextrose (Clinimix 5/20 % "E" (2000 Ml)) 2,000 mls @ 83 mls/hr IV .Q24H [facility] Stop: 08/25/18 18:01 Last Admin: 08/22/18 18:02 Dose: 83 mls/hr Insulin Human Lispro (Humalog Low) 0 units SC ACHS [facility]; Protocol Last Admin: 08/22/18 22:04 Dose: Not Given Levalbuterol HCl (Xopenex) 0.63 mg IH [id number] [facility] Last Admin: 08/23/18 01:23 Dose: 0.63 mg Lidocaine (Lidoderm) 1 ea TD DAILY [facility] Last Admin: 08/22/18 10:03 Dose: Not Given Methylprednisolone (Solu-Medrol) 20 mg IV Q12H [facility] Last Admin: 08/22/18 22:07 Dose: 20 mg Metoprolol Tartrate (Lopressor) 25 mg PO BID [facility] Last Admin: 08/22/18 18:07 Dose: 25 mg Phenytoin (Dilantin) 100 mg PO Q8 [facility] Last Admin: 08/23/18 05:22 Dose: 100 mg Verapamil HCl (Verapamil Inj) 2.5 mg IVP Q6H PRN PRN Reason: for heart ratye >120 Last Admin: 08/23/18 03:16 Dose: 2.5 mg - Labs Labs: 08/23/18 06:30 08/23/18 06:30 PT 14.5 SECONDS (9.4-12.5) H 08/11/18 12:50 INR 1.26 08/11/18 12:50 APTT 33.2 Seconds (25.1-36.5) 08/11/18 12:50 - Constitutional Appears: Well, Non-toxic, No Acute Distress - Head Exam Head Exam: ATRAUMATIC, NORMAL INSPECTION, NORMOCEPHALIC - Eye Exam Eye Exam: EOMI - ENT Exam ENT Exam: Mucous Membranes Dry - Respiratory Exam Respiratory Exam: NORMAL BREATHING PATTERN - GI/Abdominal Exam GI & Abdominal Exam: Soft, Normal Bowel Sounds. absent: Tenderness Additional comments: ostomy pink, patent productive 260cc overnight - Exam Additional comments: 1840cc serous output overnight - Neurological Exam Neurological Exam: Alert, Awake - Psychiatric Exam Psychiatric exam: Normal Affect, Normal Mood - Skin Skin Exam: Dry, Intact, Normal Color, Warm Assessment and Plan - Assessment and Plan (Free Text) Assessment: 82M s/p ex lap for ileal perforation POD11 w/ VRE+ peritonitis, severe dehydrat ion, acutely deconditioned and malnourished Plan: Continue with TPN secondary to malnourishment and dehydration status HHD as tolerating Fingerstick glucose Q6H w/ insulin coverage Chest physiotherapy and pulmonary hygiene Continue to monitor mayra and ostomy output Continue IV Abx per ID F/u body fluid cultures F/u body fluid specific gravity, LDH, and protein OOB to chair with assistance Patient needs physical therapy secondary to his deconditioning Further recommendations per Dr. Florian Metz PGY1
[2018-08-23] MEDS: Budesonide 0.5 mg/2 ml Inhal Susp UD IH SCH ×2 (08:31→21:35)
[2018-08-23] MEDS: diltiaZEM 180 mg/24 Hours CD Cap PO SCH (09:09)
[2018-08-23] MEDS: MethylPREDNISolone 40 mg Vial IV SCH ×2 (09:09→21:08)
[2018-08-23] MEDS: Insulin Lispro (humaLOG) LOW Coverage SC SCH ×4 (09:11→21:19)
[2018-08-23] MEDS: Enoxaparin 30 mg Syringe SC SCH (09:11)
[2018-08-23] MEDS: Lidocaine 5% Patch TD SCH (09:12)
--- NOTE | 2018-08-23 09:35 | RAD ---
Date of service: 08/23/2018 HISTORY: t COMPARISON: 08/22/2018 FINDINGS: LUNGS: There is a right-sided central line that terminates in the right atrium. Infiltrate at the left lung base and small effusion PLEURA: No significant pleural effusion identified, no pneumothorax apparent. CARDIOVASCULAR: Aortic calcification Mild cardiomegaly no pulmonary vascular congestion. OSSEOUS STRUCTURES: No significant abnormalities. VISUALIZED UPPER ABDOMEN: Normal. OTHER FINDINGS: None. IMPRESSION: There is a right-sided central line that terminates in the right atrium. Infiltrate at the left lung base and small effusion
[2018-08-23] MEDS: Micafungin 100 MG in Sodium Chloride 0.9% 100 ML IV SCH (10:17)
[2018-08-23] MEDS: DAPTOmycin 500 MG in Sodium Chloride 0.9% 100 ML IV SCH (11:50)
--- NOTE | 2018-08-23 11:51 | CP.PCM.PN ---
Subjective - Date & Time of Evaluation Date of Evaluation: 08/23/18 Time of Evaluation: 08:50 - Subjective Subjective: Comfortable in bed but still not eating well, no fevers, put out a lot of fluid from the abdominal drain yesterday. Objective - Vital Signs/Intake and Output Vital Signs (last 24 hours): Temp Pulse Resp BP Pulse Ox 98.5 F 106 H 20 129/86 97 08/22/18 06:00 08/22/18 10:03 08/22/18 06:00 08/22/18 10:03 08/22/18 06:00 Intake and Output: 08/22/18 08/22/18 06:59 18:59 Intake Total 1356 Output Total 2440 Balance -1084 - Medications Medications: Current Medications Acetylcysteine (Acetylcysteine 20%) 4 ml IH [id number] [facility] Last Admin: 08/22/18 07:30 Dose: 4 ml Apixaban (Eliquis) 2.5 mg PO BID [facility] Last Admin: 08/09/18 10:14 Dose: Not Given Budesonide (Pulmicort Respules) 0.5 mg IH [id number] [facility] Last Admin: 08/22/18 07:30 Dose: 0.5 mg Clonidine HCl (Catapres Tts1 0.1 Mg/24 Hr) 1 patch TD Q7D@1000 [facility] Last Admin: 08/20/18 11:10 Dose: 1 patch Dextrose (Dextrose 50% Inj) 0 ml IV STAT PRN; Protocol PRN Reason: Hypoglycemia Protocol Diltiazem HCl (Cardizem Cd) 180 mg PO DAILY [facility] Last Admin: 08/22/18 10:02 Dose: 180 mg Enoxaparin Sodium (Lovenox) 60 mg SC Q12 [facility]; Protocol Last Admin: 08/17/18 09:10 Dose: Not Given Enoxaparin Sodium (Lovenox) 30 mg SC DAILY [facility]; Protocol Last Admin: 08/22/18 10:00 Dose: 30 mg Famotidine (Pepcid) 20 mg PO DAILY [facility] Last Admin: 08/22/18 10:02 Dose: 20 mg Furosemide (Lasix) 20 mg IV DAILY [facility] Last Admin: 08/22/18 10:00 Dose: 20 mg Micafungin Sodium 100 mg/ (Sodium Chloride) 100 mls @ 100 mls/hr IV DAILY [facility]; Protocol Stop: 08/24/18 13:01 Last Admin: 08/21/18 10:16 Dose: 100 mls/hr Amino Acids/Electrolytes/Dextrose (Clinimix 5/20 % "E" (2000 Ml)) 2,000 mls @ 83.333 mls/hr IV .Q24H [facility] Last Admin: 08/21/18 20:48 Dose: 83.333 mls/hr Dextrose (Dextrose 5% In Water 1000 Ml) 1,000 mls @ 0 mls/hr IV .Q0M PRN; Protocol PRN Reason: Hypoglycemia Protocol Daptomycin 500 mg/ Sodium (Chloride) 100 mls @ 200 mls/hr IV Q24H [facility]; Protocol Stop: 09/05/18 10:01 Last Admin: 08/22/18 10:03 Dose: 200 mls/hr Meropenem (Merrem Iv 1 Gm Premix) 1 gm in 50 mls @ 100 mls/hr IVPB Q8 [facility]; Protocol Stop: 08/29/18 14:01 Insulin Human Lispro (Humalog Low) 0 units SC ACHS [facility]; Protocol Last Admin: 08/22/18 08:36 Dose: 1 u Levalbuterol HCl (Xopenex) 0.63 mg IH [id number] [facility] Last Admin: 08/22/18 07:30 Dose: 0.63 mg Lidocaine (Lidoderm) 1 ea TD DAILY [facility] Last Admin: 08/22/18 10:03 Dose: Not Given Methylprednisolone (Solu-Medrol) 20 mg IV Q12H [facility] Last Admin: 08/22/18 10:05 Dose: 20 mg Metoprolol Tartrate (Lopressor) 25 mg PO BID [facility] Last Admin: 08/22/18 10:03 Dose: 25 mg Phenytoin (Dilantin) 100 mg PO Q8 [facility] Last Admin: 08/22/18 05:49 Dose: 100 mg Verapamil HCl (Verapamil Inj) 2.5 mg IVP Q6H PRN PRN Reason: for heart ratye >120 Last Admin: 08/17/18 05:27 Dose: 2.5 mg - Labs Labs: 08/22/18 07:00 08/22/18 07:00 PT 14.5 SECONDS (9.4-12.5) H 08/11/18 12:50 INR 1.26 08/11/18 12:50 APTT 33.2 Seconds (25.1-36.5) 08/11/18 12:50 - Constitutional Appears: Chronically Ill - Head Exam Head Exam: NORMAL INSPECTION - ENT Exam ENT Exam: Mucous Membranes Moist - Neck Exam Neck Exam: absent: Meningismus - Respiratory Exam Respiratory Exam: Decreased Breath Sounds - Cardiovascular Exam Cardiovascular Exam: +S1, +S2 - GI/Abdominal Exam GI & Abdominal Exam: Soft. absent: Tenderness Additional comments: abdominal drain in place Assessment and Plan - Assessment and Plan (Free Text) Plan: Assessment sepsis S/P VDRF due to perforated ileum S/P ex-lap and resection of terminal ileum and primary anastomosis, growing VRE and C. tropicalis POD #12 S/P treatment for HCAP rectal cancer atrial fibrillation GERD anxiety disorder chronic CHF CAD Plan continue Daptomycin, Mycamine and will hold Merrem for now because of the increasing AST, ALT, T. bili and will continue to follow clinically - will give a dose of Zyvox and will monitor platelet will continue to trend WBC count, as well as monitor RUSSELL drain output and see how much the patient eats - patient still continues to be very ill discussed with Dr. Du - he will need to continue TPN follow up 08/18 final culture results (this is a repeat cx) - still growing VRE but the growth is less compared to the 08/[address] Du
[2018-08-23] MEDS ORDERED: Linezolid 600 mg in D5W 300 ml 600 MG/300 ML BAG IVPB ONE (12:15)
--- NOTE | 2018-08-23 12:24 | CP.PCM.PCO ---
Physician Communication Note - Physician Communication Note Physician Communication Note: Drain 3500(up [id number])/VRE ?[id number]
--- NOTE | 2018-08-23 16:16 | PN ---
DATE: 08/23/2018 REASON FOR CONSULTATION AND FOLLOWUP: Atrial fibrillation, status post hemicolectomy, status post perforation of the hollow viscus, status post laparotomy, off anticoagulation because of increased drainage from surgical site, serosanguineous discharge. SUBJECTIVE: Not in apparent distress. Feels better. PHYSICAL EXAMINATION: GENERAL: Not in apparent distress. Lying flat in the bed. VITAL SIGNS: Temperature afebrile. Heart rate , blood pressure 132/71. HEENT: PERRLA. Extraocular muscles intact. NECK: Supple. No carotid bruits or thyromegaly. CHEST: Clear to auscultation. HEART: S1 and S2, regular. ABDOMEN: Soft. EXTREMITIES: Clubbing and cyanosis negative. LABORATORY DATA: Blood workup as follows: WBC 8.8, hemoglobin 11. , hematocrit 34.5, platelet count 101. Chemistry shows sodium 137, potassium 4.6, chloride 100, carbon dioxide 34, anion gap of 7, BUN 15, creatinine 0.6. Total protein 4.6, albumin 2.2, albumin-globulin ratio of 0.9. IMPRESSION: An 82-year-old male with past medical history significant for abdominal aortic aneurysm, status post endovascular repair; history of colostomy in the past; villous adenoma, status post right hemicolectomy complicated by recurrent collapse of the lung and atelectasis, multiple bronchoscopies done. Further hospital course was complicated by perforation of viscus, status post exploratory laparotomy and resection of the bowel and end-to-end anastomosis. The patient with increased drainage in the last 24 hours with 3.5 liters, so anticoagulation on hold for atrial fibrillation, just only for DVT prophylaxis. RECOMMENDATIONS: Increase nutritional support. The patient getting Glucerna chocolate flavor for hypoproteinemia, [id number] protein-calorie malnutrition, was not present on admission. Continue Cardizem. Continue antibiotic. Close surgical followup. We will follow with you. Thank you, Dr. Du, for providing us the opportunity in taking care of patient, Roshan Hale. Gladis Greenfield MD
[2018-08-24] MEDS: Levalbuterol 0.63 MG/3 ML Inhal Soln UD IH SCH ×4 (01:51→19:55)
[2018-08-24] MEDS: Acetylcysteine 20% Inhal Soln (4ml) IH SCH ×4 (01:51→19:55)
--- NOTE | 2018-08-24 02:56 | PN ---
DATE: 08/23/2018 SUBJECTIVE: Patient is 82 years old, seen and examined, lying in bed, seems to be comfortable. Complaining of poor appetite. PHYSICAL EXAMINATION: VITAL SIGNS: He is afebrile. Pulse 96, respirations 20, blood pressure 148/70. LUNGS: Bilateral diffusely decreased breath sounds, decreased at bases. HEART: S1, S2 audible. ABDOMEN: Soft. Colostomy is functional. NEUROLOGIC: He is awake, alert, oriented, able to communicate. EXTREMITIES: Bilateral legs, no edema. LABORATORY DATA: WBC is 8.8, hemoglobin 11, hematocrit 34.5, platelets 101. Chemistry: Sodium 137, potassium 4.6, chloride 100, CO2 of 34, BUN 50, creatinine 0.6, blood sugar 209. AST 139, ALT 200. ASSESSMENT: 1. Vancomycin-resistant Enterococcus faecium. 2. Reshma tropicalis, peritoneal fluid. 3. Status post respiratory failure. 4. Chronic atrial fibrillation. 5. Thrombocytopenia. PLAN: Currently patient is on daptomycin, clonidine. He has abnormal LFTs probably secondary to TPN. He is on small dose of steroid. Patient was on Zyvox, which has been discontinued. I will discuss with ID. Tri Fleming MD
[2018-08-24] MEDS: Phenytoin 100 mg/4 ml Oral Susp UD PO SCH ×2 (05:06→14:49)
--- NOTE | 2018-08-24 06:48 | PN ---
DATE: 08/23/2018 SUBJECTIVE: This 82-year-old male remains on the cardiac thomas at the [facility]. His case was reviewed on the morning of 08/23/2018 with nurse, Henny Mckinnon. The patient remains weak and deconditioned and is deemed unfit for transfer to subacute rehab by primary care physician and surgeon, Dr. Rocael Du. He remains with significant Josué-Murdock drainage status post exploratory laparotomy of a perforated ileum, which occurred after a right hemicolectomy for a cecal mass. The patient's hospital course has been stormy with multiple exacerbations of chronic obstructive pulmonary disease and intubation x2 postoperatively for mucus plugging. According to nurse, Ino, the patient's appetite remains poor and the patient also is receiving parenteral nutrition with Clinimix at present. He remains in an atrial fibrillation rhythm on the awake overnight monitor. There have been no reports of fever, chills, chest pain or hemoptysis. PHYSICAL EXAMINATION: VITAL SIGNS: Temperature was 98.3, respirations 20, pulse 69 and blood pressure 132/71 with a pulse ox of 96% on 3 L nasal O2. He was in atrial fibrillation on the awake overnight monitor. HEENT: Head: Normocephalic, atraumatic. Eyes: No icterus. NECK: Supple. HEART: Irregular S1, S2. LUNGS: With rhonchi. ABDOMEN: Without functioning colostomy and Josué-Murdock still draining serosanguineous fluid. EXTREMITIES: No edema. SKIN: No rash. VASCULAR: No claudication. PSYCHOLOGICAL: Periods of confusion. NEURO: Marked deconditioning. LABORATORY DATA: White count 8800, hemoglobin 11.1, hematocrit 34.5, platelets 101,000. Sodium 137, K 4.6, chloride 100, bicarb 34, BUN 50, creatinine 0.6. His random blood sugar was 155, calcium 7.8, phosphorous 2.8, magnesium 1.9, bilirubin 1.9, AST 139, ALT 200 and alk phos 109. IMPRESSION: An 82-year-old male, status post acute renal failure, now with prerenal azotemia in the setting of IV steroid use and comorbidities of abdominal surgery x2, exacerbation of chronic obstructive pulmonary disease, atrial fibrillation, malnutrition, history of VRE in the wound cultures as well as Reshma tropicalis, seizure syndrome, insulin-dependent diabetes mellitus, hypertension, peptic ulcer disease with gastroesophageal reflux disease and anemia of chronic disease with stable thrombocytopenia. PLAN: Plan is to continue Mucomyst inhalational therapy, Cardizem, clonidine, Clinimix, parenteral nutrition, daptomycin, Dilantin, insulin coverage with Humalog according to protocol, IV Lasix, Lidoderm, Lopressor, Lovenox, micafungin, Pepcid, Pulmicort inhalational therapy, IV Solu-Medrol and Xopenex inhalational therapy. The patient continues on BiPAP, CPAP and pulmonary toiletry with high-flow nasal O2. He is ordered to have heart-healthy diet. He is ordered to be on isolation aspiration, fall precautions and is receiving dietary supplements and a calorie counted as ordered. He is ordered to receive physical and occupational therapy at bedtime and hopefully will improve enough to be stable for transfer to a subacute rehab. All of the above was reviewed with nurse, Ino. The patient does not require parenteral electrolyte replacement therapy at present, but should be considered a candidate for uptake if his calorie count remains poor given multiple comorbidities. Sara Ramirez MD MTDD
--- NOTE | 2018-08-24 07:18 | CP.PCM.PCO ---
Physician Communication Note - Physician Communication Note Physician Communication Note: Zyvox X1/d/c Merrem/V [id number]/Dehydrated/LFT UP
--- NOTE | 2018-08-24 07:26 | PN ---
DATE: 08/24/2018 PULMONARY NOTE SUBJECTIVE: The patient appears comfortable this morning. He is not short of breath at rest. PHYSICAL EXAMINATION: VITAL SIGNS: Temperature is 97.7, pulse 103, respirations 18-20, blood pressure 141/77. Oxygen saturation on nasal cannula is 99%-100%. HEENT: Normocephalic, atraumatic. No JVD. CARDIOVASCULAR: Systolic ejection murmur at the lower left sternal border. Questionable S3 gallop. LUNGS: Decreased breath sounds at the bases (improved overall). Very minimal/less rhonchi. No wheezing. EXTREMITIES: Mild edema. No cyanosis, no clubbing. Calves are nontender to palpation. GASTROINTESTINAL: Abdomen is soft. It is nondistended and much less tender to palpation. SKIN: No acute rash. NEUROLOGIC: Limited at the present time. IMPRESSION: 1. Intra-abdominal perforation. 2. Status post right hemicolectomy. 3. Recurrent left lung atelectasis. 4. Chronic obstructive pulmonary disease. 5. Congestive heart failure. 6. Atrial fibrillation. 7. Anemia, thrombocytopenia. PLAN: The patient appears comfortable this morning. He is not short of breath at rest. He does state to feeling much better overall. I did discuss the case with the night nurse at length. The night nurse stated that the patient had a good night. On physical exam, his bronchospasm continues to slowly resolve. In addition, the alveolar-arterial gradient also continues to resolve. Oxygen saturation on nasal cannula is now 99%-100%. I will continue with the current nebulizer treatments and change to low-dose oral steroids this morning. The patient remains on antibiotic therapy - as per Infectious Disease. Temperatures have resolved. Leukocytosis has also resolved. Inputs by Cardiology and Surgery are also noted. Clinical status of the patient is significantly improved. However, again, the future status/prognosis for this elderly patient does remain guarded. I will discuss the above with the attending physician. Rosalio Blevins MD [facility]
[2018-08-24] MEDS: Budesonide 0.5 mg/2 ml Inhal Susp UD IH SCH ×2 (07:52→19:56)
[2018-08-24 08:14] LABS: EOS % 0.5 % (1.5-5.0); GRAN # 4.97 (1.4-6.5); GRAN % 86.6 % (50.0-68.0); HEMOGLOBIN 10.2 g/dL (14.0-18.0); LYMPH # 0.3 (1.2-3.4); LYMPH % 4.7 % (22.0-35.0); MEAN CELL VOLUME 92.4 fl (80.0-105.0); MEAN CORPUSCULAR HEMOGLOBIN 29.8 pg (25.0-35.0); MEAN CORPUSCULAR HGB CONC 32.3 g/dl (31.0-37.0); MEAN PLATELET VOLUME 8.8 fl (7.0-11.0); MONO # 0.5 (0.1-0.6); MONO % 8.2 % (1.0-6.0); PLATELET COUNT 86 10^3/uL (120.0-450.0); RBC 3.42 10^6/uL (3.5-6.1); RED CELL DISTRIBUTION WIDTH 16.7 % (11.5-14.5); WHITE BLOOD COUNT 5.7 10^3/uL (4.5-11.0)
[2018-08-24 08:32] LABS: BLOOD UREA NITROGEN 48 mg/dL (7-21); CALCIUM 7.6 mg/dL (8.4-10.5); GFR NON-AFRICAN AMERICAN > 60
[2018-08-24] MEDS: Insulin Lispro (humaLOG) LOW Coverage SC SCH ×2 (08:32→14:20)
--- NOTE | 2018-08-24 08:59 | CP.PCM.PN ---
Subjective - Date & Time of Evaluation Date of Evaluation: 08/24/18 Time of Evaluation: 08:55 - Subjective Subjective: Estela Mehta, PGY-1, Surgery Progress Note for Dr. Du Patient seen and examined at bedside. Patient reports that he has not had a good appetite. He reports dysuria and adequate ostmomy output, but denies nausea, vomiting, chest pain, shortness of breath, fever, chills. Objective - Vital Signs/Intake and Output Vital Signs (last 24 hours): Temp Pulse Resp BP Pulse Ox 97.7 F 103 H 20 141/77 99 08/24/18 06:00 08/24/18 06:00 08/24/18 06:00 08/24/18 06:00 08/24/18 06:00 Intake and Output: 08/24/18 08/24/18 06:59 18:59 Intake Total 1013 Output Total 730 Balance 283 - Medications Medications: Current Medications Acetylcysteine (Acetylcysteine 20%) 4 ml IH [id number] [facility] Last Admin: 08/24/18 07:52 Dose: 4 ml Apixaban (Eliquis) 2.5 mg PO BID [facility] Last Admin: 08/09/18 10:14 Dose: Not Given Budesonide (Pulmicort Respules) 0.5 mg IH [id number] [facility] Last Admin: 08/24/18 07:52 Dose: 0.5 mg Clonidine HCl (Catapres Tts1 0.1 Mg/24 Hr) 1 patch TD Q7D@1000 [facility] Last Admin: 08/20/18 11:10 Dose: 1 patch Dextrose (Dextrose 50% Inj) 0 ml IV STAT PRN; Protocol PRN Reason: Hypoglycemia Protocol Diltiazem HCl (Cardizem Cd) 180 mg PO DAILY [facility] Last Admin: 08/23/18 09:09 Dose: 180 mg Enoxaparin Sodium (Lovenox) 60 mg SC Q12 [facility]; Protocol Last Admin: 08/17/18 09:10 Dose: Not Given Enoxaparin Sodium (Lovenox) 30 mg SC DAILY [facility]; Protocol Last Admin: 08/23/18 09:11 Dose: 30 mg Famotidine (Pepcid) 20 mg PO DAILY [facility] Last Admin: 08/23/18 09:11 Dose: 20 mg Furosemide (Lasix) 20 mg IV DAILY [facility] Last Admin: 08/23/18 09:10 Dose: 20 mg Micafungin Sodium 100 mg/ (Sodium Chloride) 100 mls @ 100 mls/hr IV DAILY [facility]; Protocol Stop: 08/24/18 13:01 Last Admin: 08/23/18 10:17 Dose: 100 mls/hr Dextrose (Dextrose 5% In Water 1000 Ml) 1,000 mls @ 0 mls/hr IV .Q0M PRN; Protocol PRN Reason: Hypoglycemia Protocol Daptomycin 500 mg/ Sodium (Chloride) 100 mls @ 200 mls/hr IV Q24H [facility]; Protocol Stop: 09/05/18 10:01 Last Admin: 08/23/18 11:50 Dose: 200 mls/hr Amino Acids/Electrolytes/Dextrose (Clinimix 5/20 % "E" (2000 Ml)) 2,000 mls @ 83 mls/hr IV .Q24H [facility] Insulin Human Lispro (Humalog Low) 0 units SC ACHS [facility]; Protocol Last Admin: 08/24/18 08:32 Dose: 1 u Levalbuterol HCl (Xopenex) 0.63 mg IH [id number] [facility] Last Admin: 08/24/18 07:52 Dose: 0.63 mg Lidocaine (Lidoderm) 1 ea TD DAILY [facility] Last Admin: 08/23/18 09:12 Dose: 1 ea Metoprolol Tartrate (Lopressor) 25 mg PO BID [facility] Last Admin: 08/23/18 18:07 Dose: 25 mg Phenytoin (Dilantin) 100 mg PO Q8 [facility] Last Admin: 08/24/18 05:06 Dose: 100 mg Prednisone (Prednisone Tab) 30 mg PO DAILY [facility] Verapamil HCl (Verapamil Inj) 2.5 mg IVP Q6H PRN PRN Reason: for heart ratye >120 Last Admin: 08/23/18 03:16 Dose: 2.5 mg - Labs Labs: 08/24/18 08:00 08/24/18 08:00 PT 14.5 SECONDS (9.4-12.5) H 08/11/18 12:50 INR 1.26 08/11/18 12:50 APTT 33.2 Seconds (25.1-36.5) 08/11/18 12:50 - Constitutional Appears: No Acute Distress - Head Exam Head Exam: ATRAUMATIC, NORMAL INSPECTION, NORMOCEPHALIC - Eye Exam Eye Exam: EOMI Pupil Exam: PERRL - Respiratory Exam Respiratory Exam: Clear to Ausculation Bilateral, NORMAL BREATHING PATTERN - Cardiovascular Exam Cardiovascular Exam: Irregular Rhythm - GI/Abdominal Exam GI & Abdominal Exam: Soft, Tenderness Additional comments: ostomy in place and patent - Extremities Exam Extremities Exam: Full ROM Assessment and Plan - Assessment and Plan (Free Text) Assessment: 82 year old male with past medical history of rectal cancer s/p resection, AAA, HTN, seizures, GERD, Zenker's Diverticulum, and atrial fibrillation on eliquis presents s/p ileal perforation repair and right hemicolectomy and parastomal hernia repair day 13. Plan: Extensive conversation was had regarding patient's food consumption and patient was agreeable to increase food intake. Continue 2L of TPN at 83cc/hr Continue with antibiotics as per ID. Eliquis is on hold. Continue with lovenox for DVT prophylaxis with pepcid for GI prophylaxis. Will discuss plan with Dr. Du.
[2018-08-24] MEDS: Lidocaine 5% Patch TD SCH (10:10)
[2018-08-24] MEDS: diltiaZEM 180 mg/24 Hours CD Cap PO SCH (10:11)
[2018-08-24] MEDS: Micafungin 100 MG in Sodium Chloride 0.9% 100 ML IV SCH (10:13)
[2018-08-24] MEDS: Enoxaparin 30 mg Syringe SC SCH (10:13)
--- NOTE | 2018-08-24 10:36 | PN ---
DATE: 08/24/2018 REASON FOR CONSULTATION AND FOLLOWUP: Atrial fibrillation, status post hemicolectomy, status posy perforation with the hollow viscus, status post laparotomy, off anticoagulation because of increased drainage from surgical site. SUBJECTIVE: Denies any chest pain, shortness of breath, or any palpitations. OBJECTIVE: GENERAL: Not in apparent distress, eating breakfast. VITAL SIGNS: Temperature afebrile, heart rate 103, blood pressure 141/77. HEENT: PERRLA. Extraocular muscles intact. NECK: Supple. No carotid bruits or thyromegaly. CHEST: Clear to auscultation. HEART: S1, S2 regular. ABDOMEN: Soft. EXTREMITIES: Clubbing and cyanosis negative. LABORATORY DATA: Blood workup as follows: WBC 5.7, hemoglobin 10.2, hematocrit 31.6, platelet count 86. Chemistry shows sodium 134, potassium 4.9, chloride 100, carbon dioxide 33, anion gap of 7, BUN 48, creatinine 0.6. IMPRESSION: An 82-year-old male with past medical history significant for abdominal aortic aneurysm, status post endovascular stent, history of colostomy in the past, recently found a villous adenoma, status post right hemicolectomy, postop course complicated by collapse of the lung multiple times, multiple atelectasis, multiple times bronch done. Further hospital course complicated by perforation of the hollow viscus, postop the patient requiring exploratory laparotomy and resection of the bowel with end-to-end anastomosis. The patient has atrial fibrillation, but not on anticoagulation because of increased drainage. We started only on the deep venous thrombosis prophylaxis. History of chronic atrial fibrillation, history of colostomy in the past. RECOMMENDATIONS: Increase nutritional support as tolerated, continue Cardizem CD 180 mg, clonidine patch. The patient is on increased nutritional support. Continue DVT prophylaxis. Once he is cleared from the surgery, we are going to restart anticoagulation. We will follow with you. Thank you, Dr. Du/Dr. Fleming for providing us the opportunity in taking care of the patient, Roshan Hale. Gladis Greenfield MD
[2018-08-24 10:45] LABS: BAND 2 % (0-2); EOSINOPHIL 2 % (0.0-3.0); LYMPHOCYTE 3 % (22.0-35.0); MONOCYTE 8 % (1.0-6.0); NEUTROPHIL 85 % (50.0-70.0)
[2018-08-24] MEDS: DAPTOmycin 500 MG in Sodium Chloride 0.9% 100 ML IV SCH (11:44)
--- NOTE | 2018-08-24 17:36 | CP.PCM.PN ---
Subjective - Date & Time of Evaluation Date of Evaluation: 08/24/18 Time of Evaluation: 09:40 - Subjective Subjective: Comfortable in bed, no fevers, not in distress but still not eating well. Objective - Vital Signs/Intake and Output Vital Signs (last 24 hours): Temp Pulse Resp BP Pulse Ox 98.5 F 113 H 20 130/69 96 08/23/18 06:00 08/23/18 09:10 08/23/18 06:00 08/23/18 09:10 08/23/18 06:00 Intake and Output: 08/23/18 08/23/18 06:59 18:59 Intake Total 1939 Output Total 2600 Balance -661 - Medications Medications: Current Medications Acetylcysteine (Acetylcysteine 20%) 4 ml IH [id number] [facility] Last Admin: 08/23/18 08:31 Dose: 4 ml Apixaban (Eliquis) 2.5 mg PO BID [facility] Last Admin: 08/09/18 10:14 Dose: Not Given Budesonide (Pulmicort Respules) 0.5 mg IH [id number] [facility] Last Admin: 08/23/18 08:31 Dose: 0.5 mg Clonidine HCl (Catapres Tts1 0.1 Mg/24 Hr) 1 patch TD Q7D@1000 [facility] Last Admin: 08/20/18 11:10 Dose: 1 patch Dextrose (Dextrose 50% Inj) 0 ml IV STAT PRN; Protocol PRN Reason: Hypoglycemia Protocol Diltiazem HCl (Cardizem Cd) 180 mg PO DAILY [facility] Last Admin: 08/23/18 09:09 Dose: 180 mg Enoxaparin Sodium (Lovenox) 60 mg SC Q12 [facility]; Protocol Last Admin: 08/17/18 09:10 Dose: Not Given Enoxaparin Sodium (Lovenox) 30 mg SC DAILY [facility]; Protocol Last Admin: 08/23/18 09:11 Dose: 30 mg Famotidine (Pepcid) 20 mg PO DAILY [facility] Last Admin: 08/23/18 09:11 Dose: 20 mg Furosemide (Lasix) 20 mg IV DAILY [facility] Last Admin: 08/23/18 09:10 Dose: 20 mg Micafungin Sodium 100 mg/ (Sodium Chloride) 100 mls @ 100 mls/hr IV DAILY [facility]; Protocol Stop: 08/24/18 13:01 Last Admin: 08/23/18 10:17 Dose: 100 mls/hr Dextrose (Dextrose 5% In Water 1000 Ml) 1,000 mls @ 0 mls/hr IV .Q0M PRN; Protocol PRN Reason: Hypoglycemia Protocol Daptomycin 500 mg/ Sodium (Chloride) 100 mls @ 200 mls/hr IV Q24H [facility]; Protocol Stop: 09/05/18 10:01 Last Admin: 08/22/18 10:03 Dose: 200 mls/hr Meropenem (Merrem Iv 1 Gm Premix) 1 gm in 50 mls @ 100 mls/hr IVPB Q8 [facility]; Prot ocol Stop: 08/29/18 14:01 Last Admin: 08/23/18 05:16 Dose: 100 mls/hr Amino Acids/Electrolytes/Dextrose (Clinimix 5/20 % "E" (2000 Ml)) 2,000 mls @ 83 mls/hr IV .Q24H [facility] Stop: 08/25/18 18:01 Last Admin: 08/22/18 18:02 Dose: 83 mls/hr Insulin Human Lispro (Humalog Low) 0 units SC ACHS [facility]; Protocol Last Admin: 08/23/18 09:11 Dose: 2 u Levalbuterol HCl (Xopenex) 0.63 mg IH [id number] [facility] Last Admin: 08/23/18 08:31 Dose: 0.63 mg Lidocaine (Lidoderm) 1 ea TD DAILY [facility] Last Admin: 08/23/18 09:12 Dose: 1 ea Methylprednisolone (Solu-Medrol) 20 mg IV Q12H [facility] Last Admin: 08/23/18 09:09 Dose: 20 mg Metoprolol Tartrate (Lopressor) 25 mg PO BID [facility] Last Admin: 08/23/18 09:10 Dose: 25 mg Phenytoin (Dilantin) 100 mg PO Q8 [facility] Last Admin: 08/23/18 05:22 Dose: 100 mg Verapamil HCl (Verapamil Inj) 2.5 mg IVP Q6H PRN PRN Reason: for heart ratye >120 Last Admin: 08/23/18 03:16 Dose: 2.5 mg - Labs Labs: 08/23/18 06:30 08/23/18 06:30 PT 14.5 SECONDS (9.4-12.5) H 08/11/18 12:50 INR 1.26 08/11/18 12:50 APTT 33.2 Seconds (25.1-36.5) 08/11/18 12:50 - Constitutional Appears: Cachectic, Chronically Ill - Head Exam Head Exam: NORMAL INSPECTION - Respiratory Exam Respiratory Exam: Decreased Breath Sounds - Cardiovascular Exam Cardiovascular Exam: +S1, +S2 - GI/Abdominal Exam GI & Abdominal Exam: Soft. absent: Tenderness Additional comments: abdominal drain in place Assessment and Plan - Assessment and Plan (Free Text) Plan: Assessment sepsis S/P VDRF due to perforated ileum S/P ex-lap and resection of terminal ileum and primary anastomosis, growing VRE and C. tropicalis POD #13 S/P treatment for HCAP rectal cancer atrial fibrillation GERD anxiety disorder chronic CHF CAD Plan continue Daptomycin, Mycamine and will hold Merrem for now because of the increasing AST, ALT, T. bili and will continue to follow clinically will continue to trend WBC count, as well as monitor RUSSELL drain output and see how much the patient eats - patient still continues to be very ill discussed with Dr. Du - he will need to continue TPN follow up 08/18 final culture results (this is a repeat cx) - still growing VRE but the growth is less compared to the 08/[address] Du
--- NOTE | 2018-08-24 19:45 | PN ---
DATE: 08/24/2018 SUBJECTIVE: The patient is an 82-year-old, seen and examined, looks extremely weak. Oral intake is fair. He is on TPN that he will be getting for 1 more day. The patient was evaluated by the therapist. The patient is extremely weak. He cannot get out of bed. He needs two people to support him to standup. PHYSICAL EXAMINATION VITAL SIGNS: He is afebrile, pulse 119, respirations 18, and blood pressure 130/57. LUNGS: Bilateral fair airflow. Poor respiratory effort. HEENT: S1 and S2 audible. Irregular, rate controlled. ABDOMEN: Soft. Colostomy is functional. EXTREMITIES: Bilateral leg, no edema. LABORATORY DATA: WBC is 5.7, hemoglobin 10.2, hematocrit 31.6, platelets 86. Chemistry: Sodium 134, potassium 4.9, chloride 100, CO2 33, BUN 48, creatinine 0.6, blood sugar of 196. His Dilantin level is 9. ASSESSMENT AND PLAN: 1. Oral intake with weight loss. 2. Deconditioning and difficulty walking. 3. Status post respiratory failure. 4. Successfully extubated. 5. Right hemicolectomy. 6. Re-exploration and had ileal resection with end-to-end anastomosis. 7. Chronic atrial fibrillation. 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 The patient at this point is extremely weak,and he needs acute rehab. We will discuss with Dr. Du. Tri Fleming MD
[2018-08-24] MEDS: Insulin Reg-LOW-Coverage SC SCH (22:10)
[2018-08-25] MEDS: Acetylcysteine 20% Inhal Soln (4ml) IH SCH ×4 (01:19→20:30)
[2018-08-25] MEDS: Levalbuterol 0.63 MG/3 ML Inhal Soln UD IH SCH ×4 (01:19→20:30)
--- NOTE | 2018-08-25 06:48 | PN ---
DATE: 08/25/2018 PULMONARY NOTE SUBJECTIVE: The patient appears comfortable this morning. He is not short of breath at rest. PHYSICAL EXAMINATION: VITAL SIGNS: Temperature is 97.6, pulse 92, respirations 19, blood pressure 127/67. Oxygen saturation on nasal cannula is 98%. HEENT: Normocephalic, atraumatic. No JVD. CARDIOVASCULAR: Systolic ejection murmur at the lower left sternal border. Questionable S3 gallop. LUNGS: Improved breath sounds at the bases. Very minimal/less rhonchi. No wheezing. EXTREMITIES: Mild edema. No cyanosis. No clubbing. Calves are nontender to palpation. GI: Abdomen is soft. It is nondistended and much less tender to palpation. SKIN: No acute rash. NEUROLOGIC: Limited at the present time. IMPRESSION: 1. Intra-abdominal perforation. 2. Status post right hemicolectomy. 3. Recurrent left lung atelectasis. 4. Chronic obstructive pulmonary disease. 5. Congestive heart failure. 6. Atrial fibrillation. 7. Anemia, thrombocytopenia. PLAN: The patient appears comfortable this morning. He is not short of breath at rest. He does state to feeling much, much better overall. I did discuss the case with the night nurse at length. Night nurse stated that the patient had a very good night. On physical exam, his bronchospasm continues to resolve. In addition, the alveolar-arterial gradient also continues to resolve. I will continue with the current nebulizer treatments and decrease the oral steroids this morning. The patient remains on antibiotic therapy - as per Infectious Disease. Temperatures have resolved. Leukocytosis has also resolved. Inputs by Cardiology and Surgery are also noted. Clinical status of the patient appears significantly improved - compared to last week. He does remain guarded overall. I will discuss the above with the attending physician this morning. Rosalio Blevins MD MTDD
[2018-08-25] MEDS: Budesonide 0.5 mg/2 ml Inhal Susp UD IH SCH ×2 (07:23→20:30)
--- NOTE | 2018-08-25 07:31 | CP.PCM.PN ---
Subjective - Date & Time of Evaluation Date of Evaluation: 08/25/18 Time of Evaluation: 06:15 - Subjective Subjective: Awake, alert, feels cold, no distress Reason for consultation and follow up:Cardiac evaluation of chronic atrial fibrillation, status post right hemicolectomy, status post perforation with hollow viscus, status post explor lap, Seen and examined by me and Dr. Greenfield Objective - Vital Signs/Intake and Output Vital Signs (last 24 hours): Temp Pulse Resp BP Pulse Ox 97.6 F 93 H 19 127/67 98 08/25/18 06:00 08/25/18 06:00 08/25/18 06:00 08/25/18 06:00 08/25/18 06:00 Intake and Output: 08/25/18 08/25/18 06:59 18:59 Intake Total 1236 Output Total 600 Balance 636 - Medications Medications: Current Medications Acetylcysteine (Acetylcysteine 20%) 4 ml IH [id number] [facility] Last Admin: 08/25/18 07:23 Dose: 4 ml Apixaban (Eliquis) 2.5 mg PO BID [facility] Last Admin: 08/09/18 10:14 Dose: Not Given Budesonide (Pulmicort Respules) 0.5 mg IH [id number] [facility] Last Admin: 08/25/18 07:23 Dose: 0.5 mg Clonidine HCl (Catapres Tts1 0.1 Mg/24 Hr) 1 patch TD Q7D@1000 [facility] Last Admin: 08/20/18 11:10 Dose: 1 patch Dextrose (Dextrose 50% Inj) 0 ml IV STAT PRN; Protocol PRN Reason: Hypoglycemia Protocol Diltiazem HCl (Cardizem Cd) 180 mg PO DAILY [facility] Last Admin: 08/24/18 10:11 Dose: 180 mg Enoxaparin Sodium (Lovenox) 60 mg SC Q12 [facility]; Protocol Last Admin: 08/17/18 09:10 Dose: Not Given Enoxaparin Sodium (Lovenox) 30 mg SC DAILY [facility]; Protocol Last Admin: 08/24/18 10:13 Dose: 30 mg Famotidine (Pepcid) 20 mg PO DAILY [facility] Last Admin: 08/24/18 10:12 Dose: 20 mg Furosemide (Lasix) 20 mg IV DAILY [facility] Last Admin: 08/24/18 10:11 Dose: 20 mg Dextrose (Dextrose 5% In Water 1000 Ml) 1,000 mls @ 0 mls/hr IV .Q0M PRN; Protocol PRN Reason: Hypoglycemia Protocol Daptomycin 500 mg/ Sodium (Chloride) 100 mls @ 200 mls/hr IV Q24H [facility]; Protocol Stop: 09/05/18 10:01 Last Admin: 08/24/18 11:44 Dose: 200 mls/hr Amino Acids/Electrolytes/Dextrose (Clinimix 5/20 % "E" (2000 Ml)) 2,000 mls @ 83 mls/hr IV .Q24H [facility] Last Admin: 08/24/18 21:36 Dose: 83 mls/hr Insulin Human Regular (Humulin R Low) 0 units SC ACHS [facility]; Protocol Last Admin: 08/24/18 22:10 Dose: 2 units Levalbuterol HCl (Xopenex) 0.63 mg IH [id number] [facility] Last Admin: 08/25/18 07:23 Dose: 0.63 mg Lidocaine (Lidoderm) 1 ea TD DAILY [facility] Last Admin: 08/24/18 10:10 Dose: 1 ea Metoprolol Tartrate (Lopressor) 25 mg PO BID [facility] Last Admin: 08/24/18 19:06 Dose: 25 mg Prednisone (Prednisone Tab) 20 mg PO DAILY [facility] Verapamil HCl (Verapamil Inj) 2.5 mg IVP Q6H PRN PRN Reason: for heart ratye >120 Last Admin: 08/23/18 03:16 Dose: 2.5 mg - Labs Labs: 08/24/18 08:00 08/24/18 08:00 PT 14.5 SECONDS (9.4-12.5) H 08/11/18 12:50 INR 1.26 08/11/18 12:50 APTT 33.2 Seconds (25.1-36.5) 08/11/18 12:50 - Constitutional Appears: Non-toxic, No Acute Distress - Head Exam Head Exam: NORMAL INSPECTION, NORMOCEPHALIC - Eye Exam Eye Exam: Normal appearance Pupil Exam: NORMAL ACCOMODATION - ENT Exam ENT Exam: Mucous Membranes Dry - Respiratory Exam Respiratory Exam: Decreased Breath Sounds, Clear to Ausculation Bilateral, NORMAL BREATHING PATTERN - Cardiovascular Exam Cardiovascular Exam: Irregular Rhythm, +S1, +S2 Additional comments: telemetry atrial flutter 90's - GI/Abdominal Exam GI & Abdominal Exam: Soft, Normal Bowel Sounds Additional comments: colostomy, abdominal dressing intact - Extremities Exam Extremities Exam: Full ROM, Normal Capillary Refill - Neurological Exam Neurological Exam: Alert, Awake, Oriented x3 - Psychiatric Exam Psychiatric exam: Normal Affect, Normal Mood - Skin Skin Exam: Dry, Normal Color Assessment and Plan - Assessment and Plan (Free Text) Assessment: A 82 year old male who came in to [facility] for elective right hemicolectomy yesterday. consult was called to follow up with history of chronic Atrial fibrillation (was on Eliquis). History of hypertension, TIA, former smoker,anxiety, hyperlipidemia, history of falls, urinary frequency and retention,rectal cancer with resection in 2001, colostomy,infrarenal abdominal aortic aneurysm with percutaneous aortic endograft (03/16/2018).He was recently admitted to [facility] due to blood clots from colostomy requiring blood transfusion. 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 Stabilized and now transferred to telemetry. Chronic atrial fibrillation but off anticoagulation due to bloody drainage to colostomy.On Lovenox. Plan: Feels better,denies shortness of breath Heart rate controlled, Beats of Vtach yesterday, patient asymptomatic Will follow up electrolytes today, replenish as needed Blood pressure controlled On Clonidine patch every week,Cardizem 180 mg daily, Lovenox 60 mg daily, Lasix 20 mg daily,Lopressor 25 mg BID, Prednisone 20 mg daily, Encourage oral intake Nutritional support Physical therapy Continue current medications Continue current treatment Chart reviewed Will follow up Plan and treatment discussed with Dr. Greenfield
--- NOTE | 2018-08-25 07:39 | CP.PCM.PCO ---
Physician Communication Note - Physician Communication Note Physician Communication Note: V Tach [id number]/Drain 1100?/VRE PERITONITIS/?zyvox dose now
[2018-08-25] MEDS: Insulin Reg-LOW-Coverage SC SCH ×4 (08:07→22:19)
[2018-08-25] MEDS: Enoxaparin 30 mg Syringe SC SCH (09:55)
[2018-08-25] MEDS: diltiaZEM 180 mg/24 Hours CD Cap PO SCH (09:55)
[2018-08-25] MEDS: Lidocaine 5% Patch TD SCH ×2 (09:56→10:10)
[2018-08-25] MEDS: Micafungin 100 MG in Sodium Chloride 0.9% 100 ML IV SCH (10:02)
--- NOTE | 2018-08-25 10:34 | PN ---
DATE: 08/24/2018 SUBJECTIVE: This 82-year-old male remains hospitalized on the cardiac thomas at the [facility] on the morning of 08/24/2018. This case was reviewed with Dr. Rocael Du, surgeon. The patient remains weak and deconditioned and unstable for transfer to subacute rehab. He remains in atrial fibrillation rhythm on the cardiac rehabilitation program director and has a poor p.o. intake of food and fluids. He is still having copious Josué-Murdock drainage status post exploratory laparotomy for perforated ileum, all status post right hemicolectomy for cecal mass. The patient remains in atrial fibrillation rhythm. PHYSICAL EXAMINATION: VITAL SIGNS: His temperature was 98.5, respirations 20, pulse 113 and blood pressure 130/69 with a pulse ox of 96% on nasal O2. HEAD: Normocephalic, atraumatic. EYES: No icterus. NECK: Supple. HEART: Irregular S1, S2. LUNGS: With rhonchi that clear with coughing. ABDOMEN: Soft, functioning colostomy noted. EXTREMITIES: No edema. SKIN: Without rash. NEUROLOGICAL: Deconditioned. VASCULAR: Legs warm to touch. PSYCHOLOGICAL: With periods of confusion. LABORATORY DATA: White count 5700, hemoglobin 10.2, hematocrit 31.6, platelets 86,000. Sodium 134, K 4.9, chloride 100, bicarb 33, BUN 48, creatinine 0.6, random blood sugar 156, calcium 7.6, phosphorous 3.6, magnesium 2.1. Repeat Josué-Murdock body fluid drainage is still growing vancomycin-resistant Enterococcus and previously was growing VRE as well as Reshma tropicalis. IMPRESSION: An 82-year-old male with prerenal azotemia, status post acute renal failure with multiple comorbidities including right hemicolectomy, cecal mass, perforated ileum, chronic atrial fibrillation, postop wound drainage growing vancomycin-resistant Enterococcus and Reshma tropicalis and status post respiratory failure, requiring intubation in the setting of chronic obstructive pulmonary disease, mucous plugging, chronic hypertension, atherosclerotic heart disease, congestive heart failure, insulin-dependent diabetes mellitus, peptic ulcer disease with gastroesophageal reflux disease and marked deconditioning. The patient will continue on Mucomyst inhalational therapy, Pulmicort inhalational therapy and Xopenex inhalational therapy and IV Solu-Medrol to be converted to prednisone taper. He continues on Cardizem, clonidine, Lasix and Lopressor. He will continue on Clinimix supplemental nutritional parenteral support as well as IV daptomycin, IV micafungin and baby aspirin, regular R low-dose insulin coverage before meals and at bedtime, Lidoderm, Lovenox, Pepcid and p.r.n. verapamil. The patient remains on isolation precautions, aspiration precautions, full code status and is encouraged to cooperate with Physical Therapy for reconditioning and gait training. He is ordered to have chest PT, BiPAP, heart-healthy soft bland diabetic diet and serial labs. The plan will be to transfer this patient to subacute rehab when and if medically stable. All of the above was discussed with Dr. Du and the patient. Sara Ramirez MD
--- NOTE | 2018-08-25 10:48 | PN ---
DATE: 08/25/2018 SUBJECTIVE: This 82-year-old male remains hospitalized on the cardiac thomas at the [facility]. He was noted earlier this morning to have 8 beats of V-tach and remained asymptomatic. He remains in an atrial fibrillation rhythm on the cardiac surgeon. He has been accepted to in LTACH. However, he is not medically stable for transfer at present. The patient remains markedly weak and deconditioned. His appetite remains poor but there have been no reports of fever, chills or diarrhea. PHYSICAL EXAMINATION: VITAL SIGNS: Temperature was 97.6, respirations 19, pulse 92 and blood pressure 127/67. Pulse ox is 98% on 3 liters nasal O2. HEENT: Head: Normocephalic, atraumatic. Eyes no icterus. NECK: Supple. HEART: Irregular S1, S2. LUNGS: With occasional rhonchi. ABDOMEN: Soft. Colostomy functioning, Josué-Murdock draining serosanguineous fluid. EXTREMITIES: No edema. SKIN: No rash. VASCULAR: Legs warm to touch. PSYCHOLOGICAL: Alert and confused. NEUROLOGIC: Deconditioned. LABORATORY DATA: Random blood sugar 224. Previous BUN 48 with creatinine of 0.6. Sodium 134, K 4.9, phosphorous 3.6, calcium 7.6 and magnesium 2.1. IMPRESSION: An 82-year-old male with vancomycin resistant Enterococcus and Reshma tropicalis in an Josué-Murdock wound drainage which remains copious at present, status post perforated ileum and comorbidities of marked deconditioning, respiratory failure causing intubation x2 secondary to mucus plugging and chronic obstructive pulmonary disease, chronic atrial fibrillation, chronic hypertension, anemia of chronic disease, chronic thrombocytopenia, prerenal azotemia, status post acute renal failure, peptic ulcer disease with gastroesophageal reflux disease. PLAN: Is to continue Mucomyst inhalational therapy, Xopenex inhalational therapy, Pulmicort inhalational therapy, nasal O2 BiPAP and chest PT and incentive spirometry. He continues on Cardizem CD, clonidine, Lopressor, IV Lasix, Clinimix, parenteral nutrition, Ecotrin, Humulin R insulin coverage, Lidoderm, Lovenox subcu, Pepcid, now on prednisone 20 mg p.o. daily and IV daptomycin and IV micafungin. The patient will be scheduled for a comprehensive metabolic panel, magnesium, phosphorus and CBC for the a.m. He continues on bedside physical and occupational therapy. He will continue on his heart-healthy diabetic diet and is ordered to have aspiration precautions, isolation precautions, fall precautions and chest physiotherapy. Ultimate plan will be for transfer to LTACH when medically stable. The patient continues to be followed by Cardiology regarding issues of hypertension, congestive heart failure, atrial fibrillation and now V-tach. Sara Ramirez MD
[2018-08-25] MEDS: DAPTOmycin 500 MG in Sodium Chloride 0.9% 100 ML IV SCH (10:52)
[2018-08-25 11:29] LABS: ALBUMIN 2.2 g/dL (3.0-4.8); ALT/SGPT 212 U/L (7-56); AST/SGOT 132 U/L (17-59); BLOOD UREA NITROGEN 49 mg/dL (7-21); CALCIUM 7.7 mg/dL (8.4-10.5); GFR NON-AFRICAN AMERICAN > 60
--- NOTE | 2018-08-25 12:29 | CP.PCM.PN ---
Subjective - Date & Time of Evaluation Date of Evaluation: 08/25/18 Time of Evaluation: 09:00 - Subjective Subjective: General Surgery Progress Note for Dr. Du 82M seen and evaluated at bedside this morning. No acute events overnight. Patient frustrated and unhappy with isolation secondary to his VRE+ cultures. Patient is tolerated diet. Ate less than 50% of his breakfast this morning. Continues to work with physical therapy. Ostomy functioning with output. Drain output 550cc serous fluid over 24 hours. Denies f/c, n/v/d, SOB, CP, or urinary symptoms. Objective - Vital Signs/Intake and Output Vital Signs (last 24 hours): Temp Pulse Resp BP Pulse Ox 97.4 F L 112 H 19 132/79 98 08/25/18 12:00 08/25/18 12:00 08/25/18 12:00 08/25/18 12:00 08/25/18 06:00 Intake and Output: 08/25/18 08/25/18 06:59 18:59 Intake Total 1236 Output Total 600 Balance 636 - Medications Medications: Current Medications Acetylcysteine (Acetylcysteine 20%) 4 ml IH [id number] [facility] Last Admin: 08/25/18 07:23 Dose: 4 ml Apixaban (Eliquis) 2.5 mg PO BID [facility] Last Admin: 08/09/18 10:14 Dose: Not Given Aspirin (Ecotrin) 81 mg PO DAILY [facility] Last Admin: 08/25/18 10:00 Dose: 81 mg Budesonide (Pulmicort Respules) 0.5 mg IH [id number] [facility] Last Admin: 08/25/18 07:23 Dose: 0.5 mg Clonidine HCl (Catapres Tts1 0.1 Mg/24 Hr) 1 patch TD Q7D@1000 [facility] Last Admin: 08/20/18 11:10 Dose: 1 patch Dextrose (Dextrose 50% Inj) 0 ml IV STAT PRN; Protocol PRN Reason: Hypoglycemia Protocol Diltiazem HCl (Cardizem Cd) 180 mg PO DAILY [facility] Last Admin: 08/25/18 09:55 Dose: 180 mg Dronabinol (Marinol) 2.5 mg PO TID [facility] Enoxaparin Sodium (Lovenox) 60 mg SC Q12 [facility]; Protocol Last Admin: 08/17/18 09:10 Dose: Not Given Enoxaparin Sodium (Lovenox) 30 mg SC DAILY [facility]; Protocol Last Admin: 08/25/18 09:55 Dose: 30 mg Famotidine (Pepcid) 20 mg PO DAILY [facility] Last Admin: 08/25/18 09:55 Dose: 20 mg Furosemide (Lasix) 20 mg IV DAILY [facility] Last Admin: 08/25/18 09:54 Dose: 20 mg Dextrose (Dextrose 5% In Water 1000 Ml) 1,000 mls @ 0 mls/hr IV .Q0M PRN; Protocol PRN Reason: Hypoglycemia Protocol Daptomycin 500 mg/ Sodium (Chloride) 100 mls @ 200 mls/hr IV Q24H [facility]; Protocol Stop: 09/05/18 10:01 Last Admin: 08/25/18 10:52 Dose: 200 mls/hr Amino Acids/Electrolytes/Dextrose (Clinimix 5/20 % "E" (2000 Ml)) 2,000 mls @ 83 mls/hr IV .Q24H [facility] Last Admin: 08/24/18 21:36 Dose: 83 mls/hr Micafungin Sodium 100 mg/ (Sodium Chloride) 100 mls @ 100 mls/hr IV DAILY [facility]; Protocol Stop: 09/01/18 10:01 Last Admin: 08/25/18 10:02 Dose: 100 mls/hr Insulin Human Regular (Humulin R Low) 0 units SC ACHS [facility]; Protocol Last Admin: 08/25/18 08:07 Dose: 2 units Levalbuterol HCl (Xopenex) 0.63 mg IH [id number] [facility] Last Admin: 08/25/18 07:23 Dose: 0.63 mg Lidocaine (Lidoderm) 1 ea TD DAILY [facility] Last Admin: 08/25/18 10:10 Dose: Not Given Metoprolol Tartrate (Lopressor) 25 mg PO BID [facility] Last Admin: 08/25/18 09:55 Dose: 25 mg Prednisone (Prednisone Tab) 20 mg PO DAILY [facility] Last Admin: 08/25/18 10:00 Dose: 20 mg Verapamil HCl (Verapamil Inj) 2.5 mg IVP Q6H PRN PRN Reason: for heart ratye >120 Last Admin: 08/23/18 03:16 Dose: 2.5 mg - Labs Labs: 08/24/18 08:00 08/25/18 11:00 PT 14.5 SECONDS (9.4-12.5) H 08/11/18 12:50 INR 1.26 08/11/18 12:50 APTT 33.2 Seconds (25.1-36.5) 08/11/18 12:50 - Constitutional Appears: Well, Non-toxic, No Acute Distress - Head Exam Head Exam: ATRAUMATIC, NORMAL INSPECTION, NORMOCEPHALIC - Eye Exam Eye Exam: EOMI - ENT Exam ENT Exam: Mucous Membranes Dry - Respiratory Exam Respiratory Exam: NORMAL BREATHING PATTERN - Cardiovascular Exam Cardiovascular Exam: REGULAR RHYTHM - GI/Abdominal Exam GI & Abdominal Exam: Soft, Normal Bowel Sounds. absent: Tenderness Additional comments: ostomy pink, patent, and productive abdominal incision c/d/i drain output 550cc serous fluid over 24hrs - Neurological Exam Neurological Exam: Alert, Awake - Psychiatric Exam Psychiatric exam: Depressed - Skin Skin Exam: Dry, Intact, Normal Color, Warm Assessment and Plan - Assessment and Plan (Free Text) Assessment: 82M s/p ex-lap and ileal perforation repair w/ acute deconditioning, malnutrition, VRE+ peritonitis, and depression Plan: Follow up repeat body fluid/urine/blood cultures 1 dose Zyvox today Continue IV Abx per ID - Dapto and newly added Micafungin Marinol to stimulate appetite and aid with depressive symptoms AM labs Replete electrolytes as needed Monitor ostomy and mayra drain output Will remove 1/2 jerardo today Continue chest physiotherapy and pulmonary hygiene Continue with HHD+supplements and TPN Aggressive physical therapy secondary to acute deconditioning Further medical management per primary team D/w and further recommendations per Dr. Florian Metz PGY1
[2018-08-25] MEDS ORDERED: Linezolid 600 mg in D5W 300 ml 600 MG/300 ML BAG IVPB SCH (13:15)
--- NOTE | 2018-08-25 13:23 | PN ---
DATE: 08/25/2018 SUBJECTIVE: The patient is an 82-year-old, seen and examined, lying in bed, looks very weak, tired, has limited range of motion because of generalized weakness, not eating that well. PHYSICAL EXAMINATION VITAL SIGNS: He is afebrile, pulse 110, respirations 19, blood pressure 137/74. LUNGS: Bilateral fair airflow. Decreased breath sounds at bases. HEART: S1, S2 audible. ABDOMEN: Soft. Colostomy functional. EXTREMITIES: Bilateral legs, no edema. LABORATORY DATA: WBC 5.7, hemoglobin 10.2, hematocrit 31.6, platelets of 86,000. Chemistry; sodium 135, potassium 4.6, chloride 98, CO2 of 34, BUN 49, creatinine 0.6, blood sugar of 140. AST 132, ALT . ASSESSMENT: 1. VRE-positive peritoneal fluid. 2. Generalized weakness. 3. Status post respiratory failure. 4. Thrombocytopenia. 5. Mild renal insufficiency. 6. Abnormal LFT. PLAN: Currently, the patient is on Cardizem. He is getting TPN. He is on daptomycin. He is on aspirin. He is on Eliquis. He was just started on Marinol today. We will continue the patient on micafungin. He is on prednisone. We will order for SCDs for DVT prophylaxis as the patient has limited mobility. 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
--- NOTE | 2018-08-25 14:50 | PN ---
DATE: 08/25/2018 REASON FOR THE CONSULTATION: Followup preop and postop followup, atrial fibrillation, status post exploratory laparotomy, status post recurrent collapse of the left lung, status post multiple bronchoscopy. SUBJECTIVE: The patient feels better. Started eating. This note is an addition to dictated by our nurse practitioner, Evangelina Mcarthur. The patient is off anticoagulation because of drainage. Did not tolerate given serosanguineous discharge from the operative site started to increase the volume. Only for DVT prophylaxis, though history of atrial fibrillation. RECOMMENDATION: Continue to hold anticoagulation except DVT prophylaxis. Discussed with Dr. Du yesterday. Continue Cardizem 180 mg. We will put baby aspirin if the patient can tolerate and once the Eliquis is started, we will discontinue baby aspirin. Eliquis is on hold until the drainage is disconnected or removed. Continue pulmonary toilet. Encourage nutritional support. The patient got Glucerna chocolate flavor. We will follow with you. Overall, the patient's condition is critical. Long-term prognosis is extremely guarded. Hemoglobin 10.2, hematocrit 31.6, stable. We will repeat the blood workup in the morning. Today, lab is pending. Thank you, Dr. Du, for providing us the opportunity in taking care of the patient, Roshan Hale. Gladis Greenfield MD
--- NOTE | 2018-08-25 17:46 | CP.PCM.PN ---
Subjective - Date & Time of Evaluation Date of Evaluation: 08/25/18 Time of Evaluation: 09:30 - Subjective Subjective: Patient is still not eating well, no fevers, no increase in abdominal pain. Objective - Vital Signs/Intake and Output Vital Signs (last 24 hours): Temp Pulse Resp BP Pulse Ox 98.7 F 96 H 19 152/79 H 99 08/24/18 12:00 08/24/18 12:00 08/24/18 12:00 08/24/18 12:00 08/24/18 06:00 Intake and Output: 08/24/18 08/24/18 06:59 18:59 Intake Total 1013 Output Total 730 Balance 283 - Medications Medications: Current Medications Acetylcysteine (Acetylcysteine 20%) 4 ml IH [id number] [facility]PL[facility] BY [facility] Last Admin: 08/24/18 13:50 Dose: Not Given Apixaban (Eliquis) 2.5 mg PO BID [facility] Last Admin: 08/09/18 10:14 Dose: Not Given Budesonide (Pulmicort Respules) 0.5 mg IH [id number] [facility]PL[facility] Last Admin: 08/24/18 07:52 Dose: 0.5 mg Clonidine HCl (Catapres Tts1 0.1 Mg/24 Hr) 1 patch TD Q7D@1000 [facility] Last Admin: 08/20/18 11:10 Dose: 1 patch Dextrose (Dextrose 50% Inj) 0 ml IV STAT PRN; Protocol PRN Reason: Hypoglycemia Protocol Diltiazem HCl (Cardizem Cd) 180 mg PO DAILY [facility] Last Admin: 08/24/18 10:11 Dose: 180 mg Enoxaparin Sodium (Lovenox) 60 mg SC Q12 [facility]; Protocol Last Admin: 08/17/18 09:10 Dose: Not Given Enoxaparin Sodium (Lovenox) 30 mg SC DAILY [facility]; Protocol Last Admin: 08/24/18 10:13 Dose: 30 mg Famotidine (Pepcid) 20 mg PO DAILY [facility] Last Admin: 08/24/18 10:12 Dose: 20 mg Furosemide (Lasix) 20 mg IV DAILY [facility] Last Admin: 08/24/18 10:11 Dose: 20 mg Dextrose (Dextrose 5% In Water 1000 Ml) 1,000 mls @ 0 mls/hr IV .Q0M PRN; Protocol PRN Reason: Hypoglycemia Protocol Daptomycin 500 mg/ Sodium (Chloride) 100 mls @ 200 mls/hr IV Q24H [facility]; Protocol Stop: 09/05/18 10:01 Last Admin: 08/24/18 11:44 Dose: 200 mls/hr Amino Acids/Electrolytes/Dextrose (Clinimix 5/20 % "E" (2000 Ml)) 2,000 mls @ 83 mls/hr IV .Q24H [facility]PLACED BY [facility] Insulin Human Lispro (Humalog Low) 0 units SC ACHS [facility]; Protocol Last Admin: 08/24/18 14:20 Dose: Not Given Levalbuterol HCl (Xopenex) 0.63 mg IH [id number] [facility] Last Admin: 08/24/18 13:50 Dose: Not Given Lidocaine (Lidoderm) 1 ea TD DAILY [facility] Last Admin: 08/24/18 10:10 Dose: 1 ea Metoprolol Tartrate (Lopressor) 25 mg PO BID [facility] Last Admin: 08/24/18 10:13 Dose: 25 mg Prednisone (Prednisone Tab) 30 mg PO DAILY [facility] Last Admin: 08/24/18 10:11 Dose: 30 mg Verapamil HCl (Verapamil Inj) 2.5 mg IVP Q6H PRN PRN Reason: for heart ratye >120 Last Admin: 08/23/18 03:16 Dose: 2.5 mg - Labs Labs: 08/24/18 08:00 08/24/18 08:00 PT 14.5 SECONDS (9.4-12.5) H 08/11/18 12:50 INR 1.26 08/11/18 12:50 APTT 33.2 Seconds (25.1-36.5) 08/11/18 12:50 - Constitutional Appears: Cachectic, Chronically Ill - Head Exam Head Exam: NORMAL INSPECTION - Respiratory Exam Respiratory Exam: Decreased Breath Sounds - Cardiovascular Exam Cardiovascular Exam: +S1, +S2 - GI/Abdominal Exam GI & Abdominal Exam: Soft. absent: Tenderness Assessment and Plan - Assessment and Plan (Free Text) Plan: Assessment sepsis S/P VDRF due to perforated ileum S/P ex-lap and resection of terminal ileum and primary anastomosis, growing VRE and C. tropicalis POD #14 S/P treatment for HCAP rectal cancer atrial fibrillation GERD anxiety disorder chronic CHF CAD Plan continue Daptomycin, Mycamine and will hold Merrem for now because of the increasing AST, ALT, T. bili and will continue to follow clinically will continue to trend WBC count, as well as monitor RUSSELL drain output and see how much the patient eats - patient still continues to be very ill discussed with Dr. Du - he will need to continue TPN follow up 08/18 final culture results (this is a repeat cx) - still growing VRE but the growth is less compared to the 08/[address] Du
[2018-08-26] MEDS: Acetylcysteine 20% Inhal Soln (4ml) IH SCH ×4 (01:22→20:06)
[2018-08-26] MEDS: Levalbuterol 0.63 MG/3 ML Inhal Soln UD IH SCH ×4 (01:23→20:06)
[2018-08-26] MEDS: Budesonide 0.5 mg/2 ml Inhal Susp UD IH SCH ×2 (07:23→20:06)
[2018-08-26 07:26] LABS: EOS % 0.7 % (1.5-5.0); GRAN # 4.75 (1.4-6.5); GRAN % 87.4 % (50.0-68.0); HEMOGLOBIN 9.8 g/dL (14.0-18.0); LYMPH # 0.4 (1.2-3.4); LYMPH % 6.6 % (22.0-35.0); MEAN CELL VOLUME 92.9 fl (80.0-105.0); MEAN CORPUSCULAR HEMOGLOBIN 30.2 pg (25.0-35.0); MEAN CORPUSCULAR HGB CONC 32.5 g/dl (31.0-37.0); MEAN PLATELET VOLUME 9.3 fl (7.0-11.0); MONO # 0.3 (0.1-0.6); MONO % 5.3 % (1.0-6.0); RBC 3.25 10^6/uL (3.5-6.1); RED CELL DISTRIBUTION WIDTH 17.6 % (11.5-14.5); WHITE BLOOD COUNT 5.4 10^3/uL (4.5-11.0)
--- NOTE | 2018-08-26 07:30 | PN ---
DATE: 08/26/2018 PULMONARY NOTE SUBJECTIVE: The patient appears comfortable this morning. He is not short of breath at rest. OBJECTIVE: VITAL SIGNS: Temperature is 98.1, pulse 90, respirations 19, blood pressure 127/72. Oxygen saturation on nasal cannula is 98%. HEENT: Normocephalic, atraumatic. NECK: No JVD. CARDIOVASCULAR: Systolic ejection murmur at the lower left sternal border. Questionable S3 gallop. LUNGS: Improved breath sounds at the bases. Very minimal rhonchi. No wheezing. EXTREMITIES: Mild edema. No cyanosis, no clubbing. Calves are nontender to palpation. GI: Abdomen is soft. It is nondistended and nontender to palpation. Abdomen is postoperative. SKIN: No acute rash. NEUROLOGIC: Limited at the present time. IMPRESSION: 1. Intra-abdominal perforation. 2. Status post right hemicolectomy. 3. Recurrent left lung atelectasis. 4. Chronic obstructive pulmonary disease. 5. Congestive heart failure. 6. Atrial fibrillation. 7. Anemia, thrombocytopenia. PLAN: The patient appears comfortable this morning. He is not short of breath at rest. He does state to feeling much better overall. I did discuss the case with night nurse at length. The night nurse stated the patient had a very good night. On physical exam, there is certainly less bronchospasm noted. In addition, there is a significant decrease to the alveolar-arterial gradient. I will continue with the current nebulizer treatments and low-dose oral steroids (decreased yesterday) for now. Inputs by Renal, Infectious Disease, and Surgery are also noted. Clinical status of the patient is significantly improved - compared to his presentation. He does remain very guarded overall. I will discuss the above with the attending physician. Rosalio Blevins MD MTDJevon
--- NOTE | 2018-08-26 08:18 | CP.PCM.PN ---
Subjective - Date & Time of Evaluation Date of Evaluation: 08/26/18 Time of Evaluation: 06:45 - Subjective Subjective: Awake, alert, feels okay,feels weak Reason for consultation and follow up:Cardiac evaluation of chronic atrial fibrillation, status post right hemicolectomy, status post perforation with hollow viscus, status post explor lap, Seen and examined by me and Dr. Greenfield Objective - Vital Signs/Intake and Output Vital Signs (last 24 hours): Temp Pulse Resp BP Pulse Ox 98.1 F 90 19 127/72 98 08/26/18 05:46 08/26/18 05:46 08/26/18 05:46 08/26/18 05:46 08/26/18 05:46 Intake and Output: 08/26/18 08/26/18 06:59 18:59 Intake Total 2136 Output Total 1330 Balance 806 - Medications Medications: Current Medications Acetylcysteine (Acetylcysteine 20%) 4 ml IH [id number] [facility] Last Admin: 08/26/18 07:23 Dose: 4 ml Apixaban (Eliquis) 2.5 mg PO BID [facility] Last Admin: 08/09/18 10:14 Dose: Not Given Aspirin (Ecotrin) 81 mg PO DAILY [facility] Last Admin: 08/25/18 10:00 Dose: 81 mg Budesonide (Pulmicort Respules) 0.5 mg IH [id number] [facility] Last Admin: 08/26/18 07:23 Dose: 0.5 mg Clonidine HCl (Catapres Tts1 0.1 Mg/24 Hr) 1 patch TD Q7D@1000 [facility] Last Admin: 08/20/18 11:10 Dose: 1 patch Dextrose (Dextrose 50% Inj) 0 ml IV STAT PRN; Protocol PRN Reason: Hypoglycemia Protocol Diltiazem HCl (Cardizem Cd) 180 mg PO DAILY [facility] Last Admin: 08/25/18 09:55 Dose: 180 mg Dronabinol (Marinol) 2.5 mg PO TID [facility] Last Admin: 08/25/18 17:24 Dose: 2.5 mg Enoxaparin Sodium (Lovenox) 60 mg SC Q12 [facility]; Protocol Last Admin: 08/17/18 09:10 Dose: Not Given Enoxaparin Sodium (Lovenox) 30 mg SC DAILY [facility]; Protocol Last Admin: 08/25/18 09:55 Dose: 30 mg Famotidine (Pepcid) 20 mg PO DAILY [facility] Last Admin: 08/25/18 09:55 Dose: 20 mg Furosemide (Lasix) 20 mg IV DAILY [facility] Last Admin: 08/25/18 09:54 Dose: 20 mg Dextrose (Dextrose 5% In Water 1000 Ml) 1,000 mls @ 0 mls/hr IV .Q0M PRN; Protocol PRN Reason: Hypoglycemia Protocol Daptomycin 500 mg/ Sodium (Chloride) 100 mls @ 200 mls/hr IV Q24H [facility]; Protocol Stop: 09/05/18 10:01 Last Admin: 08/25/18 10:52 Dose: 200 mls/hr Amino Acids/Electrolytes/Dextrose (Clinimix 5/20 % "E" (2000 Ml)) 2,000 mls @ 83 mls/hr IV .Q24H [facility] Last Admin: 08/25/18 17:20 Dose: 83 mls/hr Micafungin Sodium 100 mg/ (Sodium Chloride) 100 mls @ 100 mls/hr IV DAILY [facility]; Protocol Stop: 09/01/18 10:01 Last Admin: 08/25/18 10:02 Dose: 100 mls/hr Insulin Human Regular (Humulin R Low) 0 units SC ACHS [facility]; Protocol Last Admin: 08/25/18 22:19 Dose: Not Given Levalbuterol HCl (Xopenex) 0.63 mg IH [id number] [facility] Last Admin: 08/26/18 07:23 Dose: 0.63 mg Lidocaine (Lidoderm) 1 ea TD DAILY [facility] Last Admin: 08/25/18 10:10 Dose: Not Given Metoprolol Tartrate (Lopressor) 25 mg PO BID [facility] Last Admin: 08/25/18 17:24 Dose: 25 mg Prednisone (Prednisone Tab) 20 mg PO DAILY [facility] Last Admin: 08/25/18 10:00 Dose: 20 mg Verapamil HCl (Verapamil Inj) 2.5 mg IVP Q6H PRN PRN Reason: for heart ratye >120 Last Admin: 08/23/18 03:16 Dose: 2.5 mg - Labs Labs: 08/26/18 07:00 08/25/18 11:00 PT 14.5 SECONDS (9.4-12.5) H 08/11/18 12:50 INR 1.26 08/11/18 12:50 APTT 33.2 Seconds (25.1-36.5) 08/11/18 12:50 - Constitutional Appears: Non-toxic, No Acute Distress - Head Exam Head Exam: NORMAL INSPECTION, NORMOCEPHALIC - Eye Exam Eye Exam: Normal appearance Pupil Exam: NORMAL ACCOMODATION - ENT Exam ENT Exam: Mucous Membranes Moist - Respiratory Exam Respiratory Exam: Decreased Breath Sounds, NORMAL BREATHING PATTERN - Cardiovascular Exam Cardiovascular Exam: Irregular Rhythm, +S1, +S2 Additional comments: Telemetry atrial fibrillation 100's - GI/Abdominal Exam GI & Abdominal Exam: Soft, Normal Bowel Sounds Additional comments: colostomy Abdominal jerardo intact RUSSELL drain - Neurological Exam Neurological Exam: Alert, Awake, Oriented x3 - Psychiatric Exam Psychiatric exam: Normal Affect, Normal Mood - Skin Skin Exam: Dry, Normal Color, Warm Assessment and Plan - Assessment and Plan (Free Text) Assessment: A 82 year old male who came in to [facility] for elective right hemicolectomy yesterday. consult was called to follow up with history of chronic Atrial fibrillation (was on Eliquis). 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 Stabilized and now transferred to telemetry. Chronic atrial fibrillation but off anticoagulation due to bloody drainage to colostomy.On Lovenox. Plan: Feels better,denies shortness of breath Heart rate controlled, Blood pressure controlled On Clonidine patch every week,Cardizem 180 mg daily, Lovenox 60 mg daily, Lasix 20 mg daily,Lopressor 25 mg BID, Prednisone 20 mg daily, continue antibiotics as per ID On contact isolation for VRE (wound/abdominal cavity fluid) Encourage oral intake Nutritional support, on Glucerna Physical therapy Continue current medications Continue current treatment Chart reviewed Will follow up Plan and treatment discussed with Dr. Greenfield
[2018-08-26] MEDS: Insulin Reg-LOW-Coverage SC SCH ×4 (08:20→22:04)
[2018-08-26 08:22] LABS: ALBUMIN 2.1 g/dL (3.0-4.8); ALT/SGPT 343 U/L (7-56); AST/SGOT 207 U/L (17-59); BLOOD UREA NITROGEN 51 mg/dL (7-21); CALCIUM 7.5 mg/dL (8.4-10.5); GFR NON-AFRICAN AMERICAN > 60
--- NOTE | 2018-08-26 08:32 | CP.PCM.PN ---
Subjective - Date & Time of Evaluation Date of Evaluation: 08/26/18 Time of Evaluation: 08:31 - Subjective Subjective: General Surgery Dr. Du Pt S&E @bedside. No acute events overnight. pt reports imroved PO intake w/ marinol. pain controlled. denies F/C, N/V. tolerating diet. good ostomy output Mayra 505 serous drainage x24hrs Objective - Vital Signs/Intake and Output Vital Signs (last 24 hours): Temp Pulse Resp BP Pulse Ox 98.1 F 90 19 127/72 98 08/26/18 05:46 08/26/18 05:46 08/26/18 05:46 08/26/18 05:46 08/26/18 05:46 Intake and Output: 08/26/18 08/26/18 06:59 18:59 Intake Total 2136 Output Total 1330 Balance 806 - Medications Medications: Current Medications Acetylcysteine (Acetylcysteine 20%) 4 ml IH [id number] [facility] Last Admin: 08/26/18 07:23 Dose: 4 ml Apixaban (Eliquis) 2.5 mg PO BID [facility] Last Admin: 08/09/18 10:14 Dose: Not Given Aspirin (Ecotrin) 81 mg PO DAILY [facility] Last Admin: 08/25/18 10:00 Dose: 81 mg Budesonide (Pulmicort Respules) 0.5 mg IH [id number] [facility] Last Admin: 08/26/18 07:23 Dose: 0.5 mg Clonidine HCl (Catapres Tts1 0.1 Mg/24 Hr) 1 patch TD Q7D@1000 [facility] Last Admin: 08/20/18 11:10 Dose: 1 patch Dextrose (Dextrose 50% Inj) 0 ml IV STAT PRN; Protocol PRN Reason: Hypoglycemia Protocol Diltiazem HCl (Cardizem Cd) 180 mg PO DAILY [facility] Last Admin: 08/25/18 09:55 Dose: 180 mg Dronabinol (Marinol) 2.5 mg PO TID [facility] Last Admin: 08/25/18 17:24 Dose: 2.5 mg Enoxaparin Sodium (Lovenox) 60 mg SC Q12 [facility]; Protocol Last Admin: 08/17/18 09:10 Dose: Not Given Enoxaparin Sodium (Lovenox) 30 mg SC DAILY [facility]; Protocol Last Admin: 08/25/18 09:55 Dose: 30 mg Famotidine (Pepcid) 20 mg PO DAILY [facility] Last Admin: 08/25/18 09:55 Dose: 20 mg Furosemide (Lasix) 20 mg IV DAILY KD Last Admin: 08/25/18 09:54 Dose: 20 mg Dextrose (Dextrose 5% In Water 1000 Ml) 1,000 mls @ 0 mls/hr IV .Q0M PRN; Protocol PRN Reason: Hypoglycemia Protocol Daptomycin 500 mg/ Sodium (Chloride) 100 mls @ 200 mls/hr IV Q24H KD; Protocol Stop: 09/05/18 10:01 Last Admin: 08/25/18 10:52 Dose: 200 mls/hr Amino Acids/Electrolytes/Dextrose (Clinimix 5/20 % "E" (2000 Ml)) 2,000 mls @ 83 mls/hr IV .Q24H KD Last Admin: 08/25/18 17:20 Dose: 83 mls/hr Micafungin Sodium 100 mg/ (Sodium Chloride) 100 mls @ 100 mls/hr IV DAILY KD; Protocol Stop: 09/01/18 10:01 Last Admin: 08/25/18 10:02 Dose: 100 mls/hr Insulin Human Regular (Humulin R Low) 0 units SC ACHS [facility]; Protocol Last Admin: 08/26/18 08:20 Dose: 3 units Levalbuterol HCl (Xopenex) 0.63 mg IH [id number] [facility] Last Admin: 08/26/18 07:23 Dose: 0.63 mg Lidocaine (Lidoderm) 1 ea TD DAILY [facility] Last Admin: 08/25/18 10:10 Dose: Not Given Metoprolol Tartrate (Lopressor) 25 mg PO BID [facility] Last Admin: 08/25/18 17:24 Dose: 25 mg Prednisone (Prednisone Tab) 20 mg PO DAILY [facility] Last Admin: 08/25/18 10:00 Dose: 20 mg Verapamil HCl (Verapamil Inj) 2.5 mg IVP Q6H PRN PRN Reason: for heart ratye >120 Last Admin: 08/23/18 03:16 Dose: 2.5 mg - Labs Labs: 08/26/18 07:00 08/26/18 07:00 PT 14.5 SECONDS (9.4-12.5) H 08/11/18 12:50 INR 1.26 08/11/18 12:50 APTT 33.2 Seconds (25.1-36.5) 08/11/18 12:50 - Constitutional Appears: No Acute Distress, Chronically Ill - Head Exam Head Exam: NORMAL INSPECTION - Eye Exam Eye Exam: Normal appearance - ENT Exam ENT Exam: Mucous Membranes Moist - Respiratory Exam Respiratory Exam: NORMAL BREATHING PATTERN. absent: Accessory Muscle Use, Respiratory Distress - Cardiovascular Exam Cardiovascular Exam: absent: Bradycardia, Tachycardia - GI/Abdominal Exam GI & Abdominal Exam: Soft. absent: Distended, Tenderness Additional comments: incision w/ scant serosang drainage, intact mayra drain in place ostomy w/ stool present stoma pink patent - Extremities Exam Extremities Exam: Normal Inspection - Neurological Exam Neurological Exam: Alert, Awake, Oriented x3 - Psychiatric Exam Psychiatric exam: Normal Affect, Normal Mood - Skin Skin Exam: Dry, Normal Color, Warm Assessment and Plan - Assessment and Plan (Free Text) Assessment: 82M s/p ex-lap and ileal perforation repair w/ acute deconditioning, malnutrition, VRE+ peritonitis, and depression Plan: - f/u repeat Drain Cx, UCx, BCx - requesting Linezolid IV for Drain Cx +VRE - cont TPN, HHD, PO supplements - encourage PO intake - Monitor ostomy and mayra output - Replete electrolytes PRN - cont Aggressive PT - encourage OOB to chair/Amb/IS use Pt discussed w/ Dr. Florian West DO PGY3
[2018-08-26] MEDS ORDERED: Linezolid 600 mg in D5W 300 ml 600 MG/300 ML BAG IVPB SCH (10:00)
[2018-08-26] MEDS: diltiaZEM 180 mg/24 Hours CD Cap PO SCH (11:21)
[2018-08-26] MEDS: Enoxaparin 30 mg Syringe SC SCH (11:22)
[2018-08-26] MEDS: Lidocaine 5% Patch TD SCH (11:23)
[2018-08-26] MEDS: Micafungin 100 MG in Sodium Chloride 0.9% 100 ML IV SCH (11:29)
[2018-08-26] MEDS: DAPTOmycin 500 MG in Sodium Chloride 0.9% 100 ML IV SCH (11:29)
--- NOTE | 2018-08-26 14:27 | PN ---
DATE: 08/26/2018 SUBJECTIVE: This 82-year-old male remains hospitalized on the cardiac thomas at the [facility] on the morning of August. He has periods of confusion. He still has a poor appetite and he is still draining purulent serosanguineous drainage via his Josué-Murdock and does have a functioning colostomy. According to nurse, Henny Mckinnon, registered nurse, there have been no reports of fever or chills this morning. He remains in atrial fibrillation rhythm on the putty maker. Yesterday, he had episodes of V-tach. PHYSICAL EXAMINATION: VITAL SIGNS: Temperature 98.1, respirations 19, pulse 90, blood pressure 127/72. HEENT: Head; normocephalic, atraumatic. Eyes; no icterus. NECK: Supple. HEART: S1, S2 irregular. LUNGS: Occasional rhonchi that clear with coughing. ABDOMEN: Soft, functioning colostomy. EXTREMITIES: No edema. SKIN: Without rash. NEUROLOGIC: Deconditioned. VASCULAR: Legs warm to touch. PSYCHOLOGIC: Confused. LABORATORY DATA: White count 5400, hemoglobin 9.8, hematocrit 30.2, platelets 93,000. Sodium 134, K 4.8, chloride 97, bicarb 34, BUN 51, creatinine 0.6, random blood sugar 260, calcium 7.5. Phosphorous 3.6, magnesium 2.2. Bilirubin 1.6, AST 207, ALT 343, alk phos 111, albumin 2.1. IMPRESSION: An 82-year-old male status post acute renal failure, now with prerenal azotemia in the setting of steroid use for chronic obstructive pulmonary disease and comorbidities of right hemicolectomy for cecal mass, complicated by exploratory laparotomy for perforated ileum, now repaired and comorbidities of marked deconditioning, chronic obstructive pulmonary disease, respiratory failure x2 requiring intubation and suctioning of mucus plugging, chronic atrial fibrillation, chronic hypertension, deconditioning, type 2 diabetes mellitus requiring insulin coverage, chronic hypertension, anemia of chronic disease, thrombocytopenia and wound 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 PLAN: Plan is to continue Mucomyst inhalational therapy, Pulmicort inhalational therapy, Xopenex inhalational therapy. Suctioning chest PT and incentive spirometry. He continues on Cardizem CD, clonidine, Lopressor and IV Lasix. He continues on Clinimix parenteral nutrition, Ecotrin, regular low-dose insulin coverage, Lidoderm, Lovenox, micafungin, daptomycin, Pepcid, oral prednisone and a heart-healthy diet. He is ordered to have bedside physical therapy. Wound care and skin care as outlined. Fall precautions, isolation precautions, CPAP, nasal O2, strict I's and O's and antiembolism, VTE compression device stockings. Ultimate plan will be for transfer to subacute rehab if medically stable. Overall prognosis remains poor at present. Sara Ramirez MD
--- NOTE | 2018-08-26 14:56 | PN ---
DATE: 08/26/2018 REASON FOR CONSULTATION AND FOLLOWUP: Cardiac evaluation, history of chronic atrial fibrillation status post abdominal surgery exploration. This note is in addition to dictated by nurse practitioner. SUBJECTIVE: The patient is stable. In 1992, he had history of ITP. LABORATORY DATA: Hemoglobin 9.8, hematocrit 30.2, platelets . BUN 51, creatinine 0.6. RECOMMENDATIONS: Continue Cardizem, continue beta tammy. Eliquis on hold. Patient is on DVT prophylaxis with dose of Lovenox, though patient has setup for a stroke but high risk of bleeding at the operative site, so we are still on hold. Once they clear from the surgery point of view, we can resume enoxaparin 1 mg/kg every 12 hours and then restart Eliquis. For now, continue current medications, continue to increase nutritional support and put Glucerna. Patient is on supplement . Gladis Greenfield MD
--- NOTE | 2018-08-26 18:07 | PN ---
DATE: 08/26/2018 SUBJECTIVE: The patient is an 82-year-old, seen and examined, lying in bed, has extreme weakness, has difficulty walking and hardly can stand up. Oral intake is poor. Surgical team started Marinol. PHYSICAL EXAMINATION VITAL SIGNS: The patient is afebrile, pulse 96, respirations 18, blood pressure 119/61. LUNGS: Bilateral fair airflow, decreased at bases. HEART: S1, S2 audible. ABDOMEN: Soft. Colostomy is functional, has semi-solid stool. His right flank RUSSELL tube is draining copious amount of straw-colored drainage which was growing VRE; however, repeat one done on 08/25/2018 seems to be pending. ASSESSMENT: 1. Extreme weakness. 2. Poor oral intake. 3. History of hypertension. 4. VRE abdominal cavity infection. 5. AFib. 6. Chronic anemia. 7. History of COPD. 8. History of right colectomy secondary to villous adenoma. 9. Status post ileal resection with end-to-end anastomosis. PLAN: Currently, the patient is on TPN. He is on clonidine patch. He is on diltiazem and getting aspirin 81 mg daily. He is on Lasix. He is on DVT prophylaxis. He is on micafungin. His steroids are being monitored. The patient is going to require a long rehab. 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
--- NOTE | 2018-08-26 18:44 | PN ---
DATE: 08/26/2018 SUBJECTIVE: The patient is in bed in no acute distress, was seen earlier today. No fevers, no chills. PHYSICAL EXAMINATION: VITAL SIGNS: Temperature is 98, blood pressure is 118/60, respiratory rate of 18, heart rate of 96. HEENT: Examination of HEENT is unremarkable. NECK: Supple. LUNGS: Have decreased breath sounds. HEART: Normal S1, S2. ABDOMEN: Soft, nontender. LABORATORY EXAMINATION: Reveals a white count of 5.4, hemoglobin of 9, platelets of 93,000. BUN of 51, creatinine of 0.6. Procalcitonin elevated at 0.79. Urinalysis is noted. Peritoneal creatinine peritoneal serology are negative. Microbiology: Body fluid cultures from 08/25/2018, RUSSELL drain, no wbc's, no organism seen. Blood cultures are negative. He did have VRE multiple and Reshma tropicalis from the OR. Dr. Courtney West's progress note is noted. Please note that repeat drain cultures are of little value. ASSESSMENT AND PLAN: This is an 82-year-old male with sepsis, status post vent-dependent respiratory failure due to a perforated ileum status post exploratory laparotomy, resection of terminal ileum and primary anastomosis growing vancomycin-resistant enterococci and Reshma tropicalis post procedure day #15 status post treatment of rectal cancer, atrial fibrillation, gastroesophageal reflux disease, anxiety disorder, on daptomycin and Mycamine. Review of orders reveals the daptomycin to be active and Mycamine is active. The patient is afebrile and normal white count. We will follow with you. The patient is chronically ill and cachectic. Jason Garvin MD
[2018-08-27] MEDS: Acetylcysteine 20% Inhal Soln (4ml) IH SCH ×4 (01:18→20:15)
[2018-08-27] MEDS: Levalbuterol 0.63 MG/3 ML Inhal Soln UD IH SCH ×4 (01:18→20:15)
--- NOTE | 2018-08-27 07:32 | PN ---
DATE: 08/27/2018 SUBJECTIVE: The patient appears comfortable this morning. He is not short of breath at rest. He does appear very weak. OBJECTIVE: VITAL SIGNS: Temperature is 98.0, pulse 105, respirations 18/20, blood pressure 127/82. Oxygen saturation on nasal cannula is 98-100%. HEENT: Normocephalic, atraumatic. No JVD. CARDIOVASCULAR: Systolic ejection murmur at the lower left sternal border. Questionable S3 gallop. LUNGS: Decreased breath sounds at the bases (improved overall). Minimal/less rhonchi. No wheezing. EXTREMITIES: Mild edema. No cyanosis, no clubbing. Calves are nontender to palpation. GI: Abdomen is soft, nontender and nondistended. Abdomen is postoperative. SKIN: No acute rash. NEUROLOGIC: Limited at the present time. IMPRESSION: 1. Intra-abdominal perforation. 2. Status post right hemicolectomy. 3. Recurrent left lung atelectasis. 4. Chronic obstructive pulmonary disease. 5. Congestive heart failure. 6. Atrial fibrillation. 7. Anemia, thrombocytopenia. PLAN: The patient appears comfortable this morning. He is not short of breath at rest. He does appear very weak. He does state to feeling much better overall. I did discuss the case with the night nurse at length. The night nurse stated that the patient had a good night. The patient did refuse his BiPAP again--discussed with the patient. On physical exam, there is certainly less bronchospasm noted. In addition, the alveolar-arterial gradient is also much less. I will continue the current nebulizer treatments and decrease the oral steroids this morning. Inputs by Infectious Disease, Renal, and Cardiology are also noted. Clinical status of the patient is significantly improved - compared to last week. However, the future status/prognosis for this patient does remain very guarded. I will discuss the above with the attending physician. Rosalio Blevins MD [place]
[2018-08-27] MEDS: Budesonide 0.5 mg/2 ml Inhal Susp UD IH SCH ×2 (07:34→20:15)
--- NOTE | 2018-08-27 07:59 | CP.PCM.PCO ---
Physician Communication Note - Physician Communication Note Physician Communication Note: Drain 2700/NEED Linezolid 600 BID IV
[2018-08-27] MEDS: Insulin Reg-LOW-Coverage SC SCH ×4 (08:55→23:36)
[2018-08-27] MEDS ORDERED: Linezolid 600 mg in D5W 300 ml 600 MG/300 ML BAG IVPB SCH (10:00)
--- NOTE | 2018-08-27 10:22 | CP.PCM.PN ---
<Courtney West - Last Filed: 08/27/18 10:23> Subjective - Date & Time of Evaluation Date of Evaluation: 08/27/18 Time of Evaluation: 10:20 - Subjective Subjective: General Surgery Dr. Du Pt S&E @bedside. Pt had episode of VTach overnight; pt asymptomatic. Otherwise, no issues overnight. Pt has no complaints. pain well controlled. denies F/C, N/V. tolerating diet. good ostomy output. Fabian 590cc serous drainage x24hrs Objective - Vital Signs/Intake and Output Vital Signs (last 24 hours): Temp Pulse Resp BP Pulse Ox 98.0 F 116 H 20 127/82 98 08/27/18 06:00 08/27/18 06:00 08/27/18 06:00 08/27/18 06:00 08/27/18 06:00 Intake and Output: 08/27/18 08/27/18 06:59 18:59 Intake Total 1116 Output Total 1040 Balance 76 - Medications Medications: Current Medications Acetylcysteine (Acetylcysteine 20%) 4 ml IH [id number] [facility] Last Admin: 08/27/18 07:34 Dose: 4 ml Apixaban (Eliquis) 2.5 mg PO BID [facility] Last Admin: 08/09/18 10:14 Dose: Not Given Aspirin (Ecotrin) 81 mg PO DAILY [facility] Last Admin: 08/26/18 11:21 Dose: 81 mg Budesonide (Pulmicort Respules) 0.5 mg IH [id number] [facility] Last Admin: 08/27/18 07:34 Dose: 0.5 mg Clonidine HCl (Catapres Tts1 0.1 Mg/24 Hr) 1 patch TD Q7D@1000 [facility] Last Admin: 08/20/18 11:10 Dose: 1 patch Dextrose (Dextrose 50% Inj) 0 ml IV STAT PRN; Protocol PRN Reason: Hypoglycemia Protocol Diltiazem HCl (Cardizem Cd) 180 mg PO DAILY [facility] Last Admin: 08/26/18 11:21 Dose: 180 mg Dronabinol (Marinol) 2.5 mg PO TID [facility] Last Admin: 08/26/18 19:05 Dose: 2.5 mg Enoxaparin Sodium (Lovenox) 60 mg SC Q12 [facility]; Protocol Last Admin: 08/17/18 09:10 Dose: Not Given Enoxaparin Sodium (Lovenox) 30 mg SC DAILY KD; Protocol Last Admin: 08/26/18 11:22 Dose: 30 mg Famotidine (Pepcid) 20 mg PO DAILY KD Last Admin: 08/26/18 11:21 Dose: 20 mg Furosemide (Lasix) 20 mg IV DAILY KD Last Admin: 08/26/18 11:23 Dose: 20 mg Dextrose (Dextrose 5% In Water 1000 Ml) 1,000 mls @ 0 mls/hr IV .Q0M PRN; Protocol PRN Reason: Hypoglycemia Protocol Daptomycin 500 mg/ Sodium (Chloride) 100 mls @ 200 mls/hr IV Q24H KD; Protocol Stop: 09/05/18 10:01 Last Admin: 08/26/18 11:29 Dose: 200 mls/hr Amino Acids/Electrolytes/Dextrose (Clinimix 5/20 % "E" (2000 Ml)) 2,000 mls @ 83 mls/hr IV .Q24H KD Stop: 08/30/18 17:59 Last Admin: 08/26/18 19:06 Dose: 83 mls/hr Micafungin Sodium 100 mg/ (Sodium Chloride) 100 mls @ 100 mls/hr IV DAILY KD; Protocol Stop: 09/01/18 10:01 Last Admin: 08/26/18 11:29 Dose: 100 mls/hr Linezolid (Zyvox 600mg/300ml D5w) 600 mg in 300 mls @ 200 mls/hr IVPB Q12 KD; Protocol Stop: 08/27/18 11:29 Insulin Human Regular (Humulin R Low) 0 units SC ACHS KD; Protocol Last Admin: 08/27/18 08:55 Dose: 1 units Levalbuterol HCl (Xopenex) 0.63 mg IH [id number] KD Last Admin: 08/27/18 07:34 Dose: 0.63 mg Lidocaine (Lidoderm) 1 ea TD DAILY KD Last Admin: 08/26/18 11:23 Dose: 1 ea Metoprolol Tartrate (Lopressor) 25 mg PO BID [facility] Last Admin: 08/26/18 19:00 Dose: 25 mg Prednisone (Prednisone Tab) 10 mg PO DAILY [facility] Verapamil HCl (Verapamil Inj) 2.5 mg IVP Q6H PRN PRN Reason: for heart ratye >120 Last Admin: 08/23/18 03:16 Dose: 2.5 mg - Labs Labs: 08/26/18 07:00 08/26/18 07:00 PT 14.5 SECONDS (9.4-12.5) H 08/11/18 12:50 INR 1.26 08/11/18 12:50 APTT 33.2 Seconds (25.1-36.5) 08/11/18 12:50 - Constitutional Appears: No Acute Distress, Chronically Ill - Head Exam Head Exam: NORMAL INSPECTION - Eye Exam Eye Exam: Normal appearance - ENT Exam ENT Exam: Mucous Membranes Moist - Respiratory Exam Respiratory Exam: NORMAL BREATHING PATTERN. absent: Accessory Muscle Use, Respiratory Distress - Cardiovascular Exam Cardiovascular Exam: Tachycardia. absent: Bradycardia - GI/Abdominal Exam GI & Abdominal Exam: Soft. absent: Distended, Guarding, Tenderness, Rebound Additional comments: scant serosang drainage from midline wound incision intact fabian drain in place stoma pink, patent ostomy w/ stool present. - Extremities Exam Extremities Exam: Normal Inspection - Neurological Exam Neurological Exam: Alert, Awake, Oriented x3 - Psychiatric Exam Psychiatric exam: Normal Mood. absent: Normal Affect - Skin Skin Exam: Dry, Normal Color, Warm Assessment and Plan - Assessment and Plan (Free Text) Assessment: 82M s/p ex-lap and ileal perforation repair w/ VRE+ peritonitis Plan: - f/u repeat Drain Cx, UCx, BCx - requesting Linezolid IV Q6 for +VRE Drain Cx - cont TPN, HHD, PO supplements - encourage PO intake - cont Marinol - daily labs - Monitor ostomy and fabian output - Replete electrolytes PRN - cont aggressive PT - encourage OOB to chair/Amb/IS use Pt discussed w/ Dr. Florian West DO PGY3 <Rocael Du - Last Filed: 08/27/18 11:46> Objective - Vital Signs/Intake and Output Vital Signs (last 24 hours): Temp Pulse Resp BP Pulse Ox 98.0 F 102 H 20 138/76 98 08/27/18 06:00 08/27/18 10:32 08/27/18 06:00 08/27/18 10:32 08/27/18 06:00 Intake and Output: 08/27/18 08/27/18 06:59 18:59 Intake Total 1116 Output Total 1040 Balance 76 - Medications Medications: Current Medications Acetylcysteine (Acetylcysteine 20%) 4 ml IH [id number] [facility] Last Admin: 08/27/18 07:34 Dose: 4 ml Apixaban (Eliquis) 2.5 mg PO BID [facility] Last Admin: 08/09/18 10:14 Dose: Not Given Aspirin (Ecotrin) 81 mg PO DAILY [facility] Last Admin: 08/27/18 10:28 Dose: 81 mg Budesonide (Pulmicort Respules) 0.5 mg IH [id number] [facility] Last Admin: 08/27/18 07:34 Dose: 0.5 mg Clonidine HCl (Catapres Tts1 0.1 Mg/24 Hr) 1 patch TD Q7D@1000 KD Last Admin: 08/27/18 10:32 Dose: 1 patch Dextrose (Dextrose 50% Inj) 0 ml IV STAT PRN; Protocol PRN Reason: Hypoglycemia Protocol Diltiazem HCl (Cardizem Cd) 180 mg PO DAILY [facility] Last Admin: 08/27/18 10:28 Dose: 180 mg Dronabinol (Marinol) 2.5 mg PO TID [facility] Last Admin: 08/27/18 10:28 Dose: 2.5 mg Enoxaparin Sodium (Lovenox) 60 mg SC Q12 [facility]; Protocol Last Admin: 08/17/18 09:10 Dose: Not Given Enoxaparin Sodium (Lovenox) 30 mg SC DAILY [facility]; Protocol Last Admin: 08/27/18 10:28 Dose: 30 mg Famotidine (Pepcid) 20 mg PO DAILY [facility] Last Admin: 08/27/18 10:27 Dose: 20 mg Furosemide (Lasix) 20 mg IV DAILY [facility] Last Admin: 08/27/18 10:32 Dose: 20 mg Dextrose (Dextrose 5% In Water 1000 Ml) 1,000 mls @ 0 mls/hr IV .Q0M PRN; Protocol PRN Reason: Hypoglycemia Protocol Daptomycin 500 mg/ Sodium (Chloride) 100 mls @ 200 mls/hr IV Q24H [facility]; Protocol Stop: 09/05/18 10:01 Last Admin: 08/26/18 11:29 Dose: 200 mls/hr Amino Acids/Electrolytes/Dextrose (Clinimix 5/20 % "E" (2000 Ml)) 2,000 mls @ 83 mls/hr IV .Q24H KD Stop: 08/30/18 17:59 Last Admin: 08/26/18 19:06 Dose: 83 mls/hr Micafungin Sodium 100 mg/ (Sodium Chloride) 100 mls @ 100 mls/hr IV DAILY KD; Protocol Stop: 09/01/18 10:01 Last Admin: 08/27/18 10:29 Dose: 100 mls/hr Insulin Human Regular (Humulin R Low) 0 units SC ACHS KD; Protocol Last Admin: 08/27/18 08:55 Dose: 1 units Levalbuterol HCl (Xopenex) 0.63 mg IH [id number] KD Last Admin: 08/27/18 07:34 Dose: 0.63 mg Lidocaine (Lidoderm) 1 ea TD DAILY KD Last Admin: 08/27/18 10:29 Dose: 1 ea Metoprolol Tartrate (Lopressor) 25 mg PO BID [facility] Last Admin: 08/27/18 10:28 Dose: 25 mg Prednisone (Prednisone Tab) 10 mg PO DAILY KD Last Admin: 08/27/18 10:28 Dose: 10 mg Verapamil HCl (Verapamil Inj) 2.5 mg IVP Q6H PRN PRN Reason: for heart ratye >120 Last Admin: 08/23/18 03:16 Dose: 2.5 mg - Labs Labs: 08/27/18 11:00 08/27/18 11:00 PT 14.5 SECONDS (9.4-12.5) H 08/11/18 12:50 INR 1.26 08/11/18 12:50 APTT 33.2 Seconds (25.1-36.5) 08/11/18 12:50 Assessment and Plan - Assessment and Plan (Free Text) Plan: Pt has [id number] Ab sensitive is Linezolid(Pharmacy keeps cancelling the order- Needs ID Approval) Will ask for assistance from ID--TPN to continue/Pt eats less than 1/2 Meals Kiko Du MD FACS
[2018-08-27] MEDS: diltiaZEM 180 mg/24 Hours CD Cap PO SCH (10:28)
[2018-08-27] MEDS: Enoxaparin 30 mg Syringe SC SCH (10:28)
[2018-08-27] MEDS: Lidocaine 5% Patch TD SCH (10:29)
[2018-08-27] MEDS: Micafungin 100 MG in Sodium Chloride 0.9% 100 ML IV SCH (10:29)
[2018-08-27 11:13] LABS: EOS % 0.1 % (1.5-5.0); GRAN % 88.4 % (50.0-68.0); HEMOGLOBIN 10.1 g/dL (14.0-18.0); LYMPH # 0.3 (1.2-3.4); LYMPH % 4.3 % (22.0-35.0); MEAN CELL VOLUME 92.9 fl (80.0-105.0); MEAN CORPUSCULAR HEMOGLOBIN 30.1 pg (25.0-35.0); MEAN CORPUSCULAR HGB CONC 32.4 g/dl (31.0-37.0); MEAN PLATELET VOLUME 9.3 fl (7.0-11.0); MONO # 0.5 (0.1-0.6); MONO % 7.2 % (1.0-6.0); PLATELET COUNT 96 10^3/uL (120.0-450.0); RBC 3.36 10^6/uL (3.5-6.1); RED CELL DISTRIBUTION WIDTH 18.1 % (11.5-14.5); WHITE BLOOD COUNT 7.2 10^3/uL (4.5-11.0)
[2018-08-27 11:37] LABS: BAND 1 % (0-2); LYMPHOCYTE 7 % (22.0-35.0); MONOCYTE 7 % (1.0-6.0); NEUTROPHIL 85 % (50.0-70.0); PLATELET ESTIMATE LOW (NORMAL)
[2018-08-27 11:43] LABS: ALBUMIN 2.2 g/dL (3.0-4.8); ALT/SGPT 234 U/L (7-56); AST/SGOT 82 U/L (17-59); BLOOD UREA NITROGEN 50 mg/dL (7-21); CALCIUM 7.6 mg/dL (8.4-10.5); GFR NON-AFRICAN AMERICAN > 60
--- NOTE | 2018-08-27 13:47 | PN ---
DATE: 08/27/2018 REASON FOR CONSULTATION AND FOLLOWUP: Cardiac evaluation, history of chronic atrial fibrillation, status post abdominal surgery, drainage is in place. SUBJECTIVE: The patient denies any chest pain, shortness of breath or any palpitation. OBJECTIVE: GENERAL: Not in apparent distress, lying flat on the bed, tolerating food. VITAL SIGNS: Temperature afebrile, heart rate 100, blood pressure 127/82. HEENT: PERRLA. Extraocular muscles intact. NECK: Supple. No carotid bruits or thyromegaly. CHEST: Clear to auscultation. HEART: S1, S2 regular. ABDOMEN: Soft. EXTREMITIES: Clubbing and cyanosis negative. LABORATORY DATA: Blood workup as follows: WBC 5.5, hemoglobin 9.8, hematocrit 30.2 and platelet count 93,000. Chemistry shows sodium 134, potassium 4.8, chloride 97, carbon dioxide 34, anion gap of 8, BUN 51 and creatinine 0.6. Transaminases: AST 270, ALT 343. IMPRESSION: An 82-year-old male with past medical history significant for chronic atrial fibrillation, history of abdominal aortic aneurysm, pre endovascular repair. Patient's stress test is normal. History of colostomy, recently found a villous adenoma of the cecum, status post resection of right hemicolectomy. Hospital course complicated by multiple episodes of left lung collapse and bronch was done. Further hospital course was complicated by perforation of the viscus after resection and then the patient underwent exploratory laparotomy and resection of the bowel, end-to-end anastomosis. Now, the patient is in telemetry drainage. Off anticoagulation because of increased secretion, serosanguineous from the drainage with patient for deep venous thrombosis prophylaxis. RECOMMENDATION: When cleared from surgical point of view, we will start anticoagulation for AFib. In the interim, continue Cardizem, continue DVT prophylaxis, continue PPN, increase nutritional support. Started on Glucerna, chocolate flavor. Continue metoprolol. Follow up the lab in the morning. Overall, the patient's condition is critical. Long-term prognosis is guarded. We will follow with you. Thank you Dr. Du and Dr. Fleming for providing us the opportunity in taking care of the patient, Roshan Alexia. Gladis Greenfield MD
--- NOTE | 2018-08-27 13:48 | PN ---
DATE: 08/27/2018 SUBJECTIVE: The patient is an 82-year-old, seen and examined, lying in bed. He is a little brighter today, eating fair. No fever. No chills. No nausea or vomiting. PHYSICAL EXAMINATION: VITAL SIGNS: He is afebrile, pulse 102, respirations 20, blood pressure 138/76. LUNGS: Bilateral fair respiratory effort. HEART: S1, S2 audible. ABDOMEN: Soft. As per nurse, he drained 190 mL overnight in the RUSSELL drain. Colostomy is functional. EXTREMITIES: Bilateral legs, no edema. LABORATORY DATA: WBC 7.2, hemoglobin 10, hematocrit 31.2, platelets of 96,000. Chemistry: Sodium 133, potassium 4.8, chloride 97, CO2 of 34, BUN 50, creatinine 0.6, blood sugar 174. AST 82, ALT 234. His abdominal fluid culture is negative first time on 08/25/2018. ASSESSMENT: 1. Status post laparotomy. 2. Status post right hemicolectomy. 3. Ileal resection and end-to-end anastomosis. 4. Hypertension. 5. Chronic atrial fibrillation. 6. History of seizure disorder. PLAN: I will discuss with the ID that this patient should be receiving oral Zyvox once patient has thrombocytopenia. I do not know if this is the right choice. Currently, he is on daptomycin, mitomycin and . We will continue to monitor his electrolytes, CMP and CBC. He needs prolonged rehab, he is very deconditioned. We can discontinue telemetry and can be transferred to third floor if it is okay with Dr Du. Tri Fleming MD
--- NOTE | 2018-08-27 15:12 | CP.PCM.PN ---
Subjective - Date & Time of Evaluation Date of Evaluation: 08/27/18 Time of Evaluation: 09:55 - Subjective Subjective: Comfortable, eating a little better today, no fevers. Objective - Vital Signs/Intake and Output Vital Signs (last 24 hours): Temp Pulse Resp BP Pulse Ox 97.4 F L 105 H 18 127/67 98 08/25/18 17:16 08/25/18 17:24 08/25/18 17:16 08/25/18 17:24 08/25/18 06:00 Intake and Output: 08/25/18 08/25/18 06:59 18:59 Intake Total 1236 Output Total 600 Balance 636 - Medications Medications: Current Medications Acetylcysteine (Acetylcysteine 20%) 4 ml IH [id number] [facility] Last Admin: 08/25/18 13:19 Dose: 4 ml Apixaban (Eliquis) 2.5 mg PO BID [facility] Last Admin: 08/09/18 10:14 Dose: Not Given Aspirin (Ecotrin) 81 mg PO DAILY [facility] Last Admin: 08/25/18 10:00 Dose: 81 mg Budesonide (Pulmicort Respules) 0.5 mg IH [id number] [facility] Last Admin: 08/25/18 07:23 Dose: 0.5 mg Clonidine HCl (Catapres Tts1 0.1 Mg/24 Hr) 1 patch TD Q7D@1000 [facility] Last Admin: 08/20/18 11:10 Dose: 1 patch Dextrose (Dextrose 50% Inj) 0 ml IV STAT PRN; Protocol PRN Reason: Hypoglycemia Protocol Diltiazem HCl (Cardizem Cd) 180 mg PO DAILY [facility] Last Admin: 08/25/18 09:55 Dose: 180 mg Dronabinol (Marinol) 2.5 mg PO TID [facility] Last Admin: 08/25/18 17:24 Dose: 2.5 mg Enoxaparin Sodium (Lovenox) 60 mg SC Q12 [facility]; Protocol Last Admin: 08/17/18 09:10 Dose: Not Given Enoxaparin Sodium (Lovenox) 30 mg SC DAILY [facility]; Protocol Last Admin: 08/25/18 09:55 Dose: 30 mg Famotidine (Pepcid) 20 mg PO DAILY [facility] Last Admin: 08/25/18 09:55 Dose: 20 mg Furosemide (Lasix) 20 mg IV DAILY [facility] Last Admin: 08/25/18 09:54 Dose: 20 mg Dextrose (Dextrose 5% In Water 1000 Ml) 1,000 mls @ 0 mls/hr IV .Q0M PRN; Protocol PRN Reason: Hypoglycemia Protocol Daptomycin 500 mg/ Sodium (Chloride) 100 mls @ 200 mls/hr IV Q24H [facility]; Protocol Stop: 09/05/18 10:01 Last Admin: 08/25/18 10:52 Dose: 200 mls/hr Amino Acids/Electrolytes/Dextrose (Clinimix 5/20 % "E" (2000 Ml)) 2,000 mls @ 83 mls/hr IV .Q24H [facility] Last Admin: 08/25/18 17:20 Dose: 83 mls/hr Micafungin Sodium 100 mg/ (Sodium Chloride) 100 mls @ 100 mls/hr IV DAILY [facility]; Protocol Stop: 09/01/18 10:01 Last Admin: 08/25/18 10:02 Dose: 100 mls/hr Insulin Human Regular (Humulin R Low) 0 units SC ACHS [facility]; Protocol Last Admin: 08/25/18 17:18 Dose: Not Given Levalbuterol HCl (Xopenex) 0.63 mg IH [id number] [facility] Last Admin: 08/25/18 13:19 Dose: 0.63 mg Lidocaine (Lidoderm) 1 ea TD DAILY [facility] Last Admin: 08/25/18 10:10 Dose: Not Given Metoprolol Tartrate (Lopressor) 25 mg PO BID [facility] Last Admin: 08/25/18 17:24 Dose: 25 mg Prednisone (Prednisone Tab) 20 mg PO DAILY [facility] Last Admin: 08/25/18 10:00 Dose: 20 mg Verapamil HCl (Verapamil Inj) 2.5 mg IVP Q6H PRN PRN Reason: for heart ratye >120 Last Admin: 08/23/18 03:16 Dose: 2.5 mg - Labs Labs: 08/24/18 08:00 08/25/18 11:00 PT 14.5 SECONDS (9.4-12.5) H 08/11/18 12:50 INR 1.26 08/11/18 12:50 APTT 33.2 Seconds (25.1-36.5) 08/11/18 12:50 - Constitutional Appears: Cachectic, Chronically Ill - Head Exam Head Exam: NORMAL INSPECTION - Respiratory Exam Respiratory Exam: Decreased Breath Sounds - Cardiovascular Exam Cardiovascular Exam: +S1, +S2 - GI/Abdominal Exam GI & Abdominal Exam: Soft. absent: Tenderness Additional comments: abdominal drain in place Assessment and Plan - Assessment and Plan (Free Text) Plan: Assessment sepsis S/P VDRF due to perforated ileum S/P ex-lap and resection of terminal ileum and primary anastomosis, growing VRE and C. tropicalis POD #16 S/P treatment for HCAP rectal cancer atrial fibrillation GERD anxiety disorder chronic CHF CAD Plan continue Daptomycin, Mycamine and will hold Merrem for now because of the increasing AST, ALT, T. bili and will continue to follow clinically will continue to trend WBC count, as well as monitor RUSSELL drain output and see how much the patient eats - patient still continues to be very ill discussed with Dr. Du - he will need to continue TPN follow up 08/18 final culture results (this is a repeat cx) - still growing VRE but the growth is less compared to the 08/10 cultures - follow up 08/25 cx - discussed with surgery, will call microlab to make sure VRE is sensitive to Daptomycin
[2018-08-27] MEDS: DAPTOmycin 500 MG in Sodium Chloride 0.9% 100 ML IV SCH (17:00)
[2018-08-28] MEDS: Acetylcysteine 20% Inhal Soln (4ml) IH SCH ×3 (02:40→10:32)
[2018-08-28] MEDS: Levalbuterol 0.63 MG/3 ML Inhal Soln UD IH SCH ×5 (02:40→20:39)
--- NOTE | 2018-08-28 07:02 | PN ---
DATE: 08/28/2018 PULMONARY NOTE DICTATION SUBJECTIVE: The patient appears comfortable this morning. He is not short of breath at rest. He remains very weak. PHYSICAL EXAMINATION: VITAL SIGNS: Temperature is 99.1, pulse is 101, respiratory rate 16/18, blood pressure 131/73. Oxygen saturation on nasal cannula is 98%. HEENT: Normocephalic, atraumatic. No JVD. CARDIOVASCULAR: Systolic ejection murmur at the lower left sternal border. Questionable S3 gallop. LUNGS: Decreased breath sounds at the bases (improved overall). Much less/minimal rhonchi. No wheezing. EXTREMITIES: Mild edema. No cyanosis, no clubbing. Calves are nontender to palpation. GI: Abdomen is soft, nontender and nondistended. Abdomen is postoperative. SKIN: No acute rash. NEUROLOGIC: Exam limited at the present time. IMPRESSION: 1. Intra-abdominal perforation. 2. Status post right hemicolectomy. 3. Recurrent left lung atelectasis. 4. Chronic obstructive pulmonary disease. 5. Congestive heart failure. 6. Atrial fibrillation. 7. Anemia, thrombocytopenia. PLAN: The patient appears comfortable this morning. He is not short of breath at rest. He remains very, very weak appearing. He does state to feeling much better overall. I did discuss the case with the night nurse at length. The night nurse stated that the patient had a good night. The patient continues to refuse his BiPAP. I did discuss this issue with the patient multiple times. On physical exam, his bronchospasm continues to resolve. In addition, the alveolar-arterial gradient also continues to resolve. I will continue the current nebulizer treatments and very low-dose oral steroids (decreased again yesterday) for now. The patient remains on antibiotic therapy - as per Infectious Disease. The leukocytosis has resolved. The temperatures have resolved. Inputs by Cardiology and Surgery are also noted. Clinical status of the patient is significantly improved - compared to his initial presentation. He does remain very guarded overall. I will discuss the above with the attending physician. Rosalio Blevins MD [place]
[2018-08-28] MEDS: Insulin Reg-LOW-Coverage SC SCH ×4 (07:30→21:51)
--- NOTE | 2018-08-28 07:43 | CP.PCM.PN ---
Subjective - Date & Time of Evaluation Date of Evaluation: 08/28/18 Time of Evaluation: 06:35 - Subjective Subjective: No distress,Awake, alert, feels okay Reason for consultation and follow up:Cardiac evaluation of chronic atrial fibrillation, status post right hemicolectomy, status post perforation with hollow viscus, status post explor lap, Seen and examined by me and Objective - Vital Signs/Intake and Output Vital Signs (last 24 hours): Temp Pulse Resp BP Pulse Ox 99.1 F 106 H 12 131/73 98 08/28/18 00:01 08/28/18 00:01 08/28/18 00:01 08/28/18 00:01 08/27/18 06:00 Intake and Output: 08/28/18 08/28/18 06:59 18:59 Intake Total 1556 Output Total 50 80 Balance 1506 -80 - Medications Medications: Current Medications Acetylcysteine (Acetylcysteine 20%) 4 ml IH [id number] [facility] Last Admin: 08/28/18 02:40 Dose: Not Given Apixaban (Eliquis) 2.5 mg PO BID [facility] Last Admin: 08/09/18 10:14 Dose: Not Given Aspirin (Ecotrin) 81 mg PO DAILY [facility] Last Admin: 08/27/18 10:28 Dose: 81 mg Budesonide (Pulmicort Respules) 0.5 mg IH [id number] [facility] Last Admin: 08/27/18 20:15 Dose: 0.5 mg Clonidine HCl (Catapres Tts1 0.1 Mg/24 Hr) 1 patch TD Q7D@1000 [facility] Last Admin: 08/27/18 10:32 Dose: 1 patch Dextrose (Dextrose 50% Inj) 0 ml IV STAT PRN; Protocol PRN Reason: Hypoglycemia Protocol Diltiazem HCl (Cardizem Cd) 180 mg PO DAILY [facility] Last Admin: 08/27/18 10:28 Dose: 180 mg Dronabinol (Marinol) 2.5 mg PO TID [facility] Last Admin: 08/27/18 18:30 Dose: 2.5 mg Enoxaparin Sodium (Lovenox) 60 mg SC Q12 [facility]; Protocol Last Admin: 08/17/18 09:10 Dose: Not Given Enoxaparin Sodium (Lovenox) 30 mg SC DAILY [facility]; Protocol Last Admin: 08/27/18 10:28 Dose: 30 mg Famotidine (Pepcid) 20 mg PO DAILY [facility] Last Admin: 08/27/18 10:27 Dose: 20 mg Furosemide (Lasix) 20 mg IV DAILY [facility] Last Admin: 08/27/18 10:32 Dose: 20 mg Dextrose (Dextrose 5% In Water 1000 Ml) 1,000 mls @ 0 mls/hr IV .Q0M PRN; Protocol PRN Reason: Hypoglycemia Protocol Daptomycin 500 mg/ Sodium (Chloride) 100 mls @ 200 mls/hr IV Q24H [facility]; Protocol Stop: 09/05/18 10:01 Last Admin: 08/27/18 17:00 Dose: 200 mls/hr Amino Acids/Electrolytes/Dextrose (Clinimix 5/20 % "E" (2000 Ml)) 2,000 mls @ 83 mls/hr IV .Q24H [facility] Stop: 08/30/18 17:59 Last Admin: 08/27/18 18:30 Dose: 83 mls/hr Micafungin Sodium 100 mg/ (Sodium Chloride) 100 mls @ 100 mls/hr IV DAILY [facility]; Protocol Stop: 09/01/18 10:01 Last Admin: 08/27/18 10:29 Dose: 100 mls/hr Insulin Human Regular (Humulin R Low) 0 units SC ACHS [facility]; Protocol Last Admin: 08/27/18 23:36 Dose: Not Given Levalbuterol HCl (Xopenex) 0.63 mg IH [id number] [facility] Last Admin: 08/28/18 02:40 Dose: Not Given Lidocaine (Lidoderm) 1 ea TD DAILY [facility] Last Admin: 08/27/18 10:29 Dose: 1 ea Metoprolol Tartrate (Lopressor) 25 mg PO BID [facility] Last Admin: 08/27/18 18:30 Dose: 25 mg Prednisone (Prednisone Tab) 10 mg PO DAILY [facility] Last Admin: 08/27/18 10:28 Dose: 10 mg - Labs Labs: 08/27/18 11:00 08/27/18 11:00 PT 14.5 SECONDS (9.4-12.5) H 08/11/18 12:50 INR 1.26 08/11/18 12:50 APTT 33.2 Seconds (25.1-36.5) 08/11/18 12:50 - Constitutional Appears: Non-toxic, No Acute Distress - Head Exam Head Exam: NORMAL INSPECTION, NORMOCEPHALIC - Eye Exam Eye Exam: Normal appearance Pupil Exam: NORMAL ACCOMODATION - ENT Exam ENT Exam: Mucous Membranes Dry - Respiratory Exam Respiratory Exam: Decreased Breath Sounds, NORMAL BREATHING PATTERN - Cardiovascular Exam Cardiovascular Exam: Irregular Rhythm, +S1, +S2 Additional comments: Telemetry atrial fibrillation 100-110's - GI/Abdominal Exam GI & Abdominal Exam: Soft, Normal Bowel Sounds Additional comments: colostomy RUSSELL drain - Neurological Exam Neurological Exam: Alert, Awake - Psychiatric Exam Psychiatric exam: Depressed - Skin Skin Exam: Dry, Normal Color, Warm Assessment and Plan - Assessment and Plan (Free Text) Assessment: A 82 year old male who came in to [facility] for elective right hemicolectomy yesterday. consult was called to follow up with history of chronic Atrial fibrillation (was on Eliquis). 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 Stabilized and now transferred to telemetry. Chronic atrial fibrillation but off anticoagulation due to bloody drainage to colostomy.On Lovenox.On contact isolation for VRE (wound/abdominal cavity fluid) Plan: Denies shortness of breath Telemetry atrial fibrillation 100-110's Blood pressure controlled On Clonidine patch every week,Cardizem 180 mg daily, Lovenox 60 mg every 12 hours. Lasix 20 mg daily,Lopressor 25 mg BID, Prednisone 20 mg daily, On contact isolation for VRE (wound/abdominal cavity fluid) Refusing to eat, Started on peripheral TPN Will restart Eliquis once okay with general surgery Physical therapy Continue current medications Continue current treatment Chart reviewed Will follow up Plan and treatment discussed with Dr. Faye
[2018-08-28] MEDS: Budesonide 0.5 mg/2 ml Inhal Susp UD IH SCH ×3 (08:32→20:39)
[2018-08-28 08:51] LABS: HEMOGLOBIN 10.5 g/dL (14.0-18.0); MEAN CELL VOLUME 92.5 fl (80.0-105.0); MEAN CORPUSCULAR HEMOGLOBIN 30.3 pg (25.0-35.0); MEAN CORPUSCULAR HGB CONC 32.8 g/dl (31.0-37.0); RBC 3.46 10^6/uL (3.5-6.1); RED CELL DISTRIBUTION WIDTH 18.6 % (11.5-14.5); WHITE BLOOD COUNT 7.9 10^3/uL (4.5-11.0)
[2018-08-28 08:58] LABS: ALBUMIN 2.2 g/dL (3.0-4.8); ALT/SGPT 158 U/L (7-56); AST/SGOT 51 U/L (17-59); BLOOD UREA NITROGEN 46 mg/dL (7-21); CALCIUM 7.7 mg/dL (8.4-10.5); GFR NON-AFRICAN AMERICAN > 60
--- NOTE | 2018-08-28 09:13 | CP.PCM.PN ---
Subjective - Date & Time of Evaluation Date of Evaluation: 08/28/18 Time of Evaluation: 06:30 - Subjective Subjective: General Surgery- Dr. Du Patient seen and examined at bedside. patient refused to wear BiPAP overnight. Remains on 4L NC saturating at 96%. no new complaints at this time. Patient in A-Fib overnight, currently rate controlled. Receiving TPN. Stoma pink, patent w/ air and stool output. Mayra drain 160cc serous fluid. Repeat cultures no growth to date. currently on dapto and micofungin. Objective - Vital Signs/Intake and Output Vital Signs (last 24 hours): Temp Pulse Resp BP Pulse Ox 99.1 F 106 H 12 131/73 98 08/28/18 00:01 08/28/18 00:01 08/28/18 00:01 08/28/18 00:01 08/27/18 06:00 Intake and Output: 08/28/18 08/28/18 06:59 18:59 Intake Total 1556 Output Total 50 80 Balance 1506 -80 - Medications Medications: Current Medications Acetylcysteine (Acetylcysteine 20%) 4 ml IH [id number] [facility] Last Admin: 08/28/18 08:32 Dose: Not Given Apixaban (Eliquis) 2.5 mg PO BID [facility] Last Admin: 08/09/18 10:14 Dose: Not Given Aspirin (Ecotrin) 81 mg PO DAILY [facility] Last Admin: 08/27/18 10:28 Dose: 81 mg Budesonide (Pulmicort Respules) 0.5 mg IH [id number] [facility] Last Admin: 08/28/18 08:32 Dose: Not Given Clonidine HCl (Catapres Tts1 0.1 Mg/24 Hr) 1 patch TD Q7D@1000 [facility] Last Admin: 08/27/18 10:32 Dose: 1 patch Dextrose (Dextrose 50% Inj) 0 ml IV STAT PRN; Protocol PRN Reason: Hypoglycemia Protocol Diltiazem HCl (Cardizem Cd) 180 mg PO DAILY [facility] Last Admin: 08/27/18 10:28 Dose: 180 mg Dronabinol (Marinol) 2.5 mg PO TID [facility] Last Admin: 08/27/18 18:30 Dose: 2.5 mg Enoxaparin Sodium (Lovenox) 60 mg SC Q12 [facility]; Protocol Last Admin: 08/17/18 09:10 Dose: Not Given Enoxaparin Sodium (Lovenox) 30 mg SC DAILY [facility]; Protocol Last Admin: 08/27/18 10:28 Dose: 30 mg Famotidine (Pepcid) 20 mg PO DAILY [facility] Last Admin: 08/27/18 10:27 Dose: 20 mg Furosemide (Lasix) 20 mg IV DAILY [facility] Last Admin: 08/27/18 10:32 Dose: 20 mg Dextrose (Dextrose 5% In Water 1000 Ml) 1,000 mls @ 0 mls/hr IV .Q0M PRN; Protocol PRN Reason: Hypoglycemia Protocol Daptomycin 500 mg/ Sodium (Chloride) 100 mls @ 200 mls/hr IV Q24H [facility]; Protocol Stop: 09/05/18 10:01 Last Admin: 08/27/18 17:00 Dose: 200 mls/hr Amino Acids/Electrolytes/Dextrose (Clinimix 5/20 % "E" (2000 Ml)) 2,000 mls @ 83 mls/hr IV .Q24H [facility] Stop: 08/30/18 17:59 Last Admin: 08/27/18 18:30 Dose: 83 mls/hr Micafungin Sodium 100 mg/ (Sodium Chloride) 100 mls @ 100 mls/hr IV DAILY [facility]; Protocol Stop: 09/01/18 10:01 Last Admin: 08/27/18 10:29 Dose: 100 mls/hr Insulin Human Regular (Humulin R Low) 0 units SC ACHS [facility]; Protocol Last Admin: 08/27/18 23:36 Dose: Not Given Levalbuterol HCl (Xopenex) 0.63 mg IH [id number] [facility] Last Admin: 08/28/18 08:32 Dose: Not Given Lidocaine (Lidoderm) 1 ea TD DAILY [facility] Last Admin: 08/27/18 10:29 Dose: 1 ea Metoprolol Tartrate (Lopressor) 25 mg PO BID [facility] Last Admin: 08/27/18 18:30 Dose: 25 mg Prednisone (Prednisone Tab) 10 mg PO DAILY [facility] Last Admin: 08/27/18 10:28 Dose: 10 mg - Labs Labs: 08/28/18 08:00 08/28/18 08:00 PT 14.5 SECONDS (9.4-12.5) H 08/11/18 12:50 INR 1.26 08/11/18 12:50 APTT 33.2 Seconds (25.1-36.5) 08/11/18 12:50 - Constitutional Appears: Non-toxic, No Acute Distress - Head Exam Head Exam: ATRAUMATIC - Eye Exam Eye Exam: EOMI. absent: Scleral icterus - ENT Exam ENT Exam: Mucous Membranes Moist - Respiratory Exam Respiratory Exam: NORMAL BREATHING PATTERN. absent: Accessory Muscle Use, Respiratory Distress - Cardiovascular Exam Cardiovascular Exam: +S1, +S2. absent: Bradycardia, Tachycardia - GI/Abdominal Exam GI & Abdominal Exam: Soft. absent: Distended, Firm, Guarding, Rigid, Tenderness Additional comments: incision healing well. Stoma pink, patent with output - Neurological Exam Neurological Exam: Alert, Awake - Skin Skin Exam: Intact, Warm Assessment and Plan - Assessment and Plan (Free Text) Assessment: 82M s/p ex-lap and ileal perforation repair w/ VRE+ peritonitis Plan: - cont TPN, HHD, PO supplements - encourage PO intake - cont Marinol - Monitor ostomy and mayra output - Replete electrolytes PRN - daily labs - repeat Drain Cx, UCx, BCx- NGTD - c/s Infectious disease; all recs appreciated - requesting Linezolid IV Q6 for +VRE Drain Cx - cont aggressive PT - encourage OOB to chair/Amb/IS use - d/w Dr. Du Surgical Attending
[2018-08-28] MEDS: DAPTOmycin 500 MG in Sodium Chloride 0.9% 100 ML IV SCH (10:00)
[2018-08-28] MEDS: diltiaZEM 180 mg/24 Hours CD Cap PO SCH (10:12)
[2018-08-28] MEDS: Lidocaine 5% Patch TD SCH (10:13)
[2018-08-28] MEDS: Enoxaparin 30 mg Syringe SC SCH (10:14)
[2018-08-28] MEDS: Micafungin 100 MG in Sodium Chloride 0.9% 100 ML IV SCH (10:15)
--- NOTE | 2018-08-28 10:46 | PN ---
DATE: 08/27/2018 SUBJECTIVE: This 82-year-old male remains in the [facility] on the cardiac thomas on the afternoon of 08/27/2018. He remains in the atrial fibrillation rhythm on the monitoring specialist. He has persistent poor appetite, deconditioning and chronic atrial fibrillation. There were no reports of fever, chills, chest pain or hematemesis or melena. PHYSICAL EXAMINATION: VITAL SIGNS: On physical exam, temperature was 97.5, respirations 20, pulse 111 and blood pressure 134/83. HEENT: Head: Normocephalic, atraumatic. Eyes: No icterus. NECK: Supple. HEART: Irregular S1, S2. LUNGS: With rhonchi that cleared with coughing. ABDOMEN: Soft. Colostomy functioning. EXTREMITIES: No edema. SKIN: Without rash. NEUROLOGICAL: Marked deconditioning. VASCULAR: Legs warm to touch. PSYCHOLOGICAL: Alert, but confused. LABORATORY DATA: Microbiology reports dated 08/25/2018 show a urine culture with no growth and wound and Josué-Murdock drainage now showing no growth, previously VRE with Reshma tropicalis. Labs showed sodium 133, K 4.8, chloride 97, bicarb 34, BUN 50, creatinine 0.6, random blood sugar was 175, calcium 7.6, bilirubin 1.8, AST 82, ALT 234 and alk phos 110. White count 7200, hemoglobin 10.1, hematocrit 31.2 and platelets 96,000. IMPRESSION: An 82-year-old male status post acute renal failure, now with prerenal azotemia in the setting of chronic steroid need for chronic obstructive pulmonary disease and congestive heart failure in the setting of atherosclerotic heart disease and chronic atrial fibrillation with comorbidities of right hemicolectomy and functioning colostomy, status post removal of a cecal mass and also a second exploratory laparotomy for a perforated ileum with postoperative complications of respiratory failure secondary to mucus plugging and chronic hypertension, deconditioning, poor appetite, insulin-dependent diabetes mellitus, anemia of chronic disease, thrombocytopenia and azotemia, peptic ulcer disease with gastroesophageal reflux disease. PLAN: Plan at present is to continue medications including Mucomyst, Cardizem, clonidine, Clinimix, daptomycin, Ecotrin, Humulin R coverage, Lasix, Lidoderm, Lopressor, subcu Lovenox, micafungin, Pepcid, oral prednisone, Pulmicort inhalational therapy and Xopenex. The patient continues on BiPAP, CPAP, chest physiotherapy, high-flow O2, heart healthy bland diet, aspiration and isolation precautions, fall precautions, antiembolism stockings and bedside physical therapy. Ultimate plan will be for transfer to an LTAC when medically stable. Overall prognosis remains guarded at present. Sara Ramirez MD
--- NOTE | 2018-08-28 11:01 | PN ---
DATE: 08/28/2018 SUBJECTIVE: This 82-year-old male remains on the cardiac unit at the [facility] on the morning of 08/28/2018. He remains weak and deconditioned and has continued functioning of his colostomy without incident. There have been no reports of hematemesis or melena and the patient remains hospitalized with multiple comorbidities including exacerbation of chronic obstructive pulmonary disease with recent intubation x2 secondary to mucus plugging postoperatively after a right hemicolectomy and a second emergency surgery for a ruptured ileum to perforated ileum. At present, he is in an atrial fibrillation rhythm on the labor economist. PHYSICAL EXAMINATION: VITAL SIGNS: Temperature earlier was 99.1, respirations 12, pulse 111 and blood pressure 138/70. HEENT: Head: Normocephalic, atraumatic. Eyes: No icterus. NECK: Supple. HEART: Irregular S1, S2. LUNGS: With occasional rhonchi. ABDOMEN: Soft. EXTREMITIES: No edema. SKIN: Without rash. NEUROLOGICAL: Deconditioned. VASCULAR: Legs warm to touch. PSYCHOLOGICAL: Confused. LABORATORY DATA: White count 7900, hemoglobin 10.5, hematocrit 32, platelets 97,000. Sodium 136, K 4.7, chloride 99, bicarb 32, BUN 46, creatinine 0.6, random blood sugar 169, calcium 7.7, phosphorous 3.6, magnesium 2.3, bilirubin 2.9, AST 51, ALT 158 and alk phos 104. IMPRESSION: An 82-year-old male, status post a right hemicolectomy for a cecal mass and also an exploratory laparotomy for a perforated ileum with comorbidities of respiratory failure, chronic obstructive pulmonary disease, atrial fibrillation, chronic congestive heart failure, chronic hypertension, acute renal failure, prerenal azotemia, insulin-dependent diabetes mellitus, anemia of chronic disease, chronic thrombocytopenia and infection of wound and Josué-Murdock drainage with vancomycin-resistant Enterococcus and Reshma tropicalis, now improving on IV therapy of daptomycin and IV micafungin. PLAN: The plan at present is to continue Mucomyst, Cardizem, clonidine, Clinimix, daptomycin, Ecotrin, Humulin R insulin coverage, Lasix, Lopressor, subcu Lovenox, micafungin, Pepcid, oral prednisone taper, Pulmicort inhalational therapy and Xopenex. The patient will continue on a heart-healthy diet, bedside physical therapy, aspiration precautions, isolation precautions, antiembolism stockings and serial laboratory monitoring. Ultimate plan will be for transfer to LTAC when felt stable by his primary care physician; Dr. Rocael Du, surgeon. Overall prognosis, though stable remains poor. Sara Ramirez MD
--- NOTE | 2018-08-28 13:14 | CP.PCM.PN ---
Subjective - Date & Time of Evaluation Date of Evaluation: 08/28/18 Time of Evaluation: 10:20 - Subjective Subjective: No fevers, feels weak today, no abdominal pain, still not eating well. Objective - Vital Signs/Intake and Output Vital Signs (last 24 hours): Temp Pulse Resp BP Pulse Ox 97.5 F L 111 H 20 134/83 98 08/27/18 12:00 08/27/18 12:00 08/27/18 12:00 08/27/18 12:00 08/27/18 06:00 Intake and Output: 08/27/18 08/27/18 06:59 18:59 Intake Total 1116 Output Total 1040 Balance 76 - Medications Medications: Current Medications Acetylcysteine (Acetylcysteine 20%) 4 ml IH [id number] [facility] Last Admin: 08/27/18 13:51 Dose: 4 ml Apixaban (Eliquis) 2.5 mg PO BID [facility] Last Admin: 08/09/18 10:14 Dose: Not Given Aspirin (Ecotrin) 81 mg PO DAILY [facility] Last Admin: 08/27/18 10:28 Dose: 81 mg Budesonide (Pulmicort Respules) 0.5 mg IH [id number] [facility] Last Admin: 08/27/18 07:34 Dose: 0.5 mg Clonidine HCl (Catapres Tts1 0.1 Mg/24 Hr) 1 patch TD Q7D@1000 [facility] Last Admin: 08/27/18 10:32 Dose: 1 patch Dextrose (Dextrose 50% Inj) 0 ml IV STAT PRN; Protocol PRN Reason: Hypoglycemia Protocol Diltiazem HCl (Cardizem Cd) 180 mg PO DAILY [facility] Last Admin: 08/27/18 10:28 Dose: 180 mg Dronabinol (Marinol) 2.5 mg PO TID [facility] Last Admin: 08/27/18 10:28 Dose: 2.5 mg Enoxaparin Sodium (Lovenox) 60 mg SC Q12 [facility]; Protocol Last Admin: 08/17/18 09:10 Dose: Not Given Enoxaparin Sodium (Lovenox) 30 mg SC DAILY [facility]; Protocol Last Admin: 08/27/18 10:28 Dose: 30 mg Famotidine (Pepcid) 20 mg PO DAILY [facility] Last Admin: 08/27/18 10:27 Dose: 20 mg Furosemide (Lasix) 20 mg IV DAILY [facility] Last Admin: 08/27/18 10:32 Dose: 20 mg Dextrose (Dextrose 5% In Water 1000 Ml) 1,000 mls @ 0 mls/hr IV .Q0M PRN; Protocol PRN Reason: Hypoglycemia Protocol Daptomycin 500 mg/ Sodium (Chloride) 100 mls @ 200 mls/hr IV Q24H [facility]; Protocol Stop: 09/05/18 10:01 Last Admin: 08/26/18 11:29 Dose: 200 mls/hr Amino Acids/Electrolytes/Dextrose (Clinimix 5/20 % "E" (2000 Ml)) 2,000 mls @ 8 3 mls/hr IV .Q24H [facility] Stop: 08/30/18 17:59 Last Admin: 08/26/18 19:06 Dose: 83 mls/hr Micafungin Sodium 100 mg/ (Sodium Chloride) 100 mls @ 100 mls/hr IV DAILY [facility]; Protocol Stop: 09/01/18 10:01 Last Admin: 08/27/18 10:29 Dose: 100 mls/hr Insulin Human Regular (Humulin R Low) 0 units SC ACHS [facility]; Protocol Last Admin: 08/27/18 12:35 Dose: 1 units Levalbuterol HCl (Xopenex) 0.63 mg IH [id number] [facility] Last Admin: 08/27/18 13:50 Dose: 0.63 mg Lidocaine (Lidoderm) 1 ea TD DAILY [facility] Last Admin: 08/27/18 10:29 Dose: 1 ea Metoprolol Tartrate (Lopressor) 25 mg PO BID [facility] Last Admin: 08/27/18 10:28 Dose: 25 mg Prednisone (Prednisone Tab) 10 mg PO DAILY [facility] Last Admin: 08/27/18 10:28 Dose: 10 mg - Labs Labs: 08/27/18 11:00 08/27/18 11:00 PT 14.5 SECONDS (9.4-12.5) H 08/11/18 12:50 INR 1.26 08/11/18 12:50 APTT 33.2 Seconds (25.1-36.5) 08/11/18 12:50 - Constitutional Appears: Cachectic, Chronically Ill - Head Exam Head Exam: NORMAL INSPECTION - Respiratory Exam Respiratory Exam: Decreased Breath Sounds - Cardiovascular Exam Cardiovascular Exam: +S1, +S2 - GI/Abdominal Exam GI & Abdominal Exam: Soft. absent: Tenderness Assessment and Plan - Assessment and Plan (Free Text) Plan: Assessment sepsis S/P VDRF due to perforated ileum S/P ex-lap and resection of terminal ileum and primary anastomosis, growing VRE and C. tropicalis POD #17 S/P treatment for HCAP rectal cancer atrial fibrillation GERD anxiety disorder chronic CHF CAD Plan continue Daptomycin, Mycamine and will hold Merrem for now because of the increasing AST, ALT, T. bili (it is now trending down) and will continue to follow clinically will continue to trend WBC count, as well as monitor RUSSELL drain output and see how much the patient eats - patient still continues to be very ill discussed with Dr. Du - he will need to continue TPN follow up 08/25 final culture results (this is a repeat cx) - still growing VRE but the growth but 08/18 is less compared to the 08/10 cultures - follow up 08/25 cx - discussed with surgery, will call microlab to make sure VRE is sensitive to Daptomycin - will give a dose of Zyvox for now overall prognosis is guarded at best
[2018-08-28] MEDS ORDERED: Linezolid 600 mg in D5W 300 ml 600 MG/300 ML BAG IVPB ONE (13:15)
--- NOTE | 2018-08-28 16:46 | PN ---
DATE: 08/28/2018 SUBJECTIVE: The patient is 82 years old, seen and examined. Seems very weak. Oral intake is very poor. Mild shortness of breath. PHYSICAL EXAMINATION: VITAL SIGNS: The patient is afebrile, pulse 111, respirations 20, blood pressure 128/69. LUNGS: Bilateral fair airflow, decreased at bases. HEART: S1 and S2 audible. ABDOMEN: Soft. Colostomy is functional. Drain is draining straw-colored fluid, not pus. EXTREMITIES: Bilateral leg, no edema. LABORATORY EXAM: WBC 7.9, hemoglobin 10.5, hematocrit 32, platelet 97. Chemistry: Sodium 136, potassium 4.7, chloride 99, CO2 of 32, BUN 46, creatinine 0.6, blood sugar of 197, magnesium 2.3. ASSESSMENT: 1. Vancomycin-resistant Enterococcus, peritoneal fluid. Repeat cultures are negative. 2. Thrombocytopenia. 3. Hypertension. 4. History of chronic atrial fibrillation. 5. Seizure disorder. PLAN: Currently, the patient is on daptomycin. He was getting TPN, but his PICC line came out. His oral intake is poor. Need to have A line again. He is on DVT prophylaxis. He is getting antifungal medication. He was given one dose of Zyvox and we need to monitor his platelets closely. rTi Fleming MD
--- NOTE | 2018-08-28 17:46 | CP.PCM.PN ---
Subjective - Date & Time of Evaluation Date of Evaluation: 08/28/18 Time of Evaluation: 15:45 - Subjective Subjective: Surgery Progress Note- Dr. Du Paged by nurse at 15:25 that PICC line was dislodged. Subsequently pt was evaluated. Patient was AAOx3 to person, place, and time. Able to answer questions appropriately. Recommended 5% dextrose to be started at 83cc/hr POC in [address] central line to continue TPN c/w Accucheck; cover accordingly discussed case in detail with Dr. Du surgical attending called EDUARDO Thao at [phone] to relay information and patient status Patient agreed to procedure after explaining risks and befits of procedure Merchant PGY2 Objective - Vital Signs/Intake and Output Vital Signs (last 24 hours): Temp Pulse Resp BP Pulse Ox 97.4 F L 111 H 20 128/69 98 08/28/18 12:00 08/28/18 12:00 08/28/18 12:00 08/28/18 12:00 08/27/18 06:00 Intake and Output: 08/28/18 08/28/18 06:59 18:59 Intake Total 1556 Output Total 50 80 Balance 1506 -80 - Medications Medications: Current Medications Acetylcysteine (Acetylcysteine 20%) 4 ml IH [id number] [facility] Last Admin: 08/28/18 10:32 Dose: 4 ml Aspirin (Ecotrin) 81 mg PO DAILY [facility] Last Admin: 08/28/18 10:13 Dose: 81 mg Budesonide (Pulmicort Respules) 0.5 mg IH [id number] [facility] [place] Last Admin: 08/28/18 10:32 Dose: 0.5 mg Clonidine HCl (Catapres Tts1 0.1 Mg/24 Hr) 1 patch TD Q7D@1000 [facility] Last Admin: 08/27/18 10:32 Dose: 1 patch Dextrose (Dextrose 50% Inj) 0 ml IV STAT PRN; Protocol PRN Reason: Hypoglycemia Protocol Diltiazem HCl (Cardizem Cd) 180 mg PO DAILY [facility] Last Admin: 08/28/18 10:12 Dose: 180 mg Dronabinol (Marinol) 2.5 mg PO TID [facility] Last Admin: 08/28/18 14:05 Dose: Not Given Enoxaparin Sodium (Lovenox) 30 mg SC DAILY [facility]; Protocol Last Admin: 08/28/18 10:14 Dose: 30 mg Famotidine (Pepcid) 20 mg PO DAILY [facility] Last Admin: 08/28/18 10:15 Dose: 20 mg Furosemide (Lasix) 20 mg IV DAILY [facility] Last Admin: 08/28/18 10:13 Dose: 20 mg Dextrose (Dextrose 5% In Water 1000 Ml) 1,000 mls @ 0 mls/hr IV .Q0M PRN; Protocol PRN Reason: Hypoglycemia Protocol Daptomycin 500 mg/ Sodium (Chloride) 100 mls @ 200 mls/hr IV Q24H [facility]; Protocol Stop: 09/05/18 10:01 Last Admin: 08/28/18 10:00 Dose: 200 mls/hr Amino Acids/Electrolytes/Dextrose (Clinimix 5/20 % "E" (2000 Ml)) 2,000 mls @ 83 mls/hr IV .Q24H [facility] Stop: 08/30/18 17:59 Last Admin: 08/27/18 18:30 Dose: 83 mls/hr Micafungin Sodium 100 mg/ (Sodium Chloride) 100 mls @ 100 mls/hr IV DAILY [facility]; Protocol Stop: 09/01/18 10:01 Last Admin: 08/28/18 10:15 Dose: 100 mls/hr Dextrose (Dextrose 5% In Water 1000 Ml) 1,000 mls @ 83 mls/hr IV .Q12H3M [facility] Insulin Human Regular (Humulin R Low) 0 units SC ACHS [facility]; Protocol Last Admin: 08/28/18 11:30 Dose: Not Given Levalbuterol HCl (Xopenex) 0.63 mg IH [id number] [facility] Last Admin: 08/28/18 13:54 Dose: 0.63 mg Lidocaine (Lidoderm) 1 ea TD DAILY [facility] Last Admin: 08/28/18 10:13 Dose: 1 ea Metoprolol Tartrate (Lopressor) 25 mg PO BID [facility] Last Admin: 08/28/18 10:14 Dose: 25 mg Prednisone (Prednisone Tab) 10 mg PO DAILY [facility] Last Admin: 08/28/18 10:15 Dose: 10 mg - Labs Labs: 08/28/18 08:00 08/28/18 08:00 PT 14.5 SECONDS (9.4-12.5) H 08/11/18 12:50 INR 1.26 08/11/18 12:50 APTT 33.2 Seconds (25.1-36.5) 08/11/18 12:50
--- NOTE | 2018-08-28 17:54 | PCM.PROC ---
Procedures Attestation:: I certify that I have explained the specified Operation(s) or Procedure(s), risks, benefits and reasonable alternatives to the Patient and/or other person responsible. The opportunity was given to ask questions and all questions answered - Central Line Placement Right Internal Jugular Triple Lumen Catheter Aseptic technique was employed throughout the procedure: Hand Hygiene done prior to procedure, Full sterile barriers (mask, hair cover, sterile gown, sterile gloves), Full body sterile drape, Chloraprep Antiseptic: 30 second prep for IJ or SC sites CVP Time Out Performed: Yes Pt. Placed on Pulse Ox Monitor: Yes Central Line Prep: Chlorhexidine-Alcohol Combination Local Anesthesia Used: Lidocaine 1% Amount of Anesthesia Used (mls): 5 Ultrasound Used for Placement: Yes Central Line Lumen Inserted: triple Central Line Length: 16 cm Post Procedure: Sutured in Place, Good Blood Return, All Ports Aspirated, Flushed, Capped, Sterile Dressing Applied Secured by: Suture Post procedure dressing: Clear vapor permeable, Chlorhexidine disc (Biopatch) Post Procedure X-Ray: Yes Patient Tolerated Procedure: Well Immediate Complications: None
--- NOTE | 2018-08-28 18:50 | RAD ---
HISTORY: s/p TLC placement; r/o Pneumothorax COMPARISON: Chest x-ray performed 08/23/18 TECHNIQUE: Chest, one view. FINDINGS: Examination limited by habitus and patient marked obliquity. Right IJ approach central venous catheter extends the expected location of the cavoatrial junction, however due to patient obliquity evaluation is somewhat limited. LUNGS: Small uitx-yqgyyca-gkkq-right pleural effusions. Left lower lobe atelectasis or infiltrate. No definite pneumothorax. CARDIOVASCULAR: Cardiomegaly. Ectatic aorta. Atherosclerotic calcification present. Partially imaged aortic stent graft. OSSEOUS STRUCTURES: Osseous demineralization. Degenerative changes. VISUALIZED UPPER ABDOMEN: Unremarkable. OTHER FINDINGS: None. IMPRESSION: Right IJ approach central venous catheter extends expected location of the cavoatrial junction. Cardiomegaly. Atherosclerotic calcifications of the aorta. Small olkc-syfciof-vgny-right pleural effusions. Left lower lobe atelectasis or infiltrate.
[2018-08-29] MEDS: Acetylcysteine 20% Inhal Soln (4ml) IH SCH ×5 (01:56→20:16)
[2018-08-29] MEDS: Levalbuterol 0.63 MG/3 ML Inhal Soln UD IH SCH ×5 (01:56→20:16)
[2018-08-29 05:53] LABS: HEMOGLOBIN 9.8 g/dL (14.0-18.0); MEAN CELL VOLUME 92.4 fl (80.0-105.0); MEAN CORPUSCULAR HEMOGLOBIN 29.7 pg (25.0-35.0); MEAN CORPUSCULAR HGB CONC 32.1 g/dl (31.0-37.0); RBC 3.3 10^6/uL (3.5-6.1); RED CELL DISTRIBUTION WIDTH 18.6 % (11.5-14.5); WHITE BLOOD COUNT 6.7 10^3/uL (4.5-11.0)
[2018-08-29 05:56] LABS: INR 1.28; PARTIAL THROMBOPLASTIN TIME 30.3 Seconds (25.1-36.5); PROTHROMBIN TIME 14.8 SECONDS (9.4-12.5)
[2018-08-29 06:04] LABS: ALB/GLOB RATIO 0.9 (1.1-1.8); ALBUMIN 2.2 g/dL (3.0-4.8); ALT/SGPT 119 U/L (7-56); AST/SGOT 50 U/L (17-59); BLOOD UREA NITROGEN 43 mg/dL (7-21); CALCIUM 7.7 mg/dL (8.4-10.5); GFR NON-AFRICAN AMERICAN > 60
--- NOTE | 2018-08-29 07:07 | CP.PCM.PN ---
Subjective - Date & Time of Evaluation Date of Evaluation: 08/29/18 Time of Evaluation: 06:40 - Subjective Subjective: Awake, alert, feels okay,no distress,wanted oatmeal Reason for consultation and follow up:Cardiac evaluation of chronic atrial fibrillation, status post right hemicolectomy, status post perforation with hollow viscus, status post explor lap, Seen and examined by me and Objective - Vital Signs/Intake and Output Vital Signs (last 24 hours): Temp Pulse Resp BP Pulse Ox 97.9 F 114 H 19 153/72 H 99 08/29/18 05:52 08/29/18 05:52 08/29/18 05:52 08/29/18 05:52 08/29/18 05:52 Intake and Output: 08/29/18 08/29/18 06:59 18:59 Intake Total 1236 Balance 1236 - Medications Medications: Current Medications Acetylcysteine (Acetylcysteine 20%) 4 ml IH [id number] [facility] Last Admin: 08/29/18 01:56 Dose: 4 ml Aspirin (Ecotrin) 81 mg PO DAILY [facility] Last Admin: 08/28/18 10:13 Dose: 81 mg Budesonide (Pulmicort Respules) 0.5 mg IH [id number] [facility] Last Admin: 08/28/18 20:39 Dose: 0.5 mg Clonidine HCl (Catapres Tts1 0.1 Mg/24 Hr) 1 patch TD Q7D@1000 [facility] Last Admin: 08/27/18 10:32 Dose: 1 patch Dextrose (Dextrose 50% Inj) 0 ml IV STAT PRN; Protocol PRN Reason: Hypoglycemia Protocol Diltiazem HCl (Cardizem Cd) 180 mg PO DAILY [facility] Last Admin: 08/28/18 10:12 Dose: 180 mg Dronabinol (Marinol) 2.5 mg PO TID [facility] Last Admin: 08/28/18 18:18 Dose: Not Given Enoxaparin Sodium (Lovenox) 30 mg SC DAILY [facility]; Protocol Last Admin: 08/28/18 10:14 Dose: 30 mg Famotidine (Pepcid) 20 mg PO DAILY [facility] Last Admin: 08/28/18 10:15 Dose: 20 mg Furosemide (Lasix) 20 mg IV DAILY [facility] Last Admin: 08/28/18 10:13 Dose: 20 mg Dextrose (Dextrose 5% In Water 1000 Ml) 1,000 mls @ 0 mls/hr IV .Q0M PRN; Protocol PRN Reason: Hypoglycemia Protocol Daptomycin 500 mg/ Sodium (Chloride) 100 mls @ 200 mls/hr IV Q24H [facility]; Protocol Stop: 09/05/18 10:01 Last Admin: 08/28/18 10:00 Dose: 200 mls/hr Amino Acids/Electrolytes/Dextrose (Clinimix 5/20 % "E" (2000 Ml)) 2,000 mls @ 83 mls/hr IV .Q24H [facility] Stop: 08/30/18 17:59 Last Admin: 08/28/18 18:19 Dose: 83 mls/hr Micafungin Sodium 100 mg/ (Sodium Chloride) 100 mls @ 100 mls/hr IV DAILY [facility]; Protocol Stop: 09/01/18 10:01 Last Admin: 08/28/18 10:15 Dose: 100 mls/hr Dextrose (Dextrose 5% In Water 1000 Ml) 1,000 mls @ 83 mls/hr IV .Q12H3M [facility] Insulin Human Regular (Humulin R Low) 0 units SC ACHS [facility]; Protocol Last Admin: 08/28/18 21:51 Dose: Not Given Levalbuterol HCl (Xopenex) 0.63 mg IH [id number] [facility] Last Admin: 08/29/18 01:56 Dose: 0.63 mg Lidocaine (Lidoderm) 1 ea TD DAILY [facility] Last Admin: 08/28/18 10:13 Dose: 1 ea Metoprolol Tartrate (Lopressor) 25 mg PO BID [facility] Last Admin: 08/28/18 18:17 Dose: Not Given Prednisone (Prednisone Tab) 10 mg PO DAILY [facility] Last Admin: 08/28/18 10:15 Dose: 10 mg - Labs Labs: 08/29/18 05:00 08/29/18 05:00 PT 14.8 SECONDS (9.4-12.5) H 08/29/18 05:00 INR 1.28 08/29/18 05:00 APTT 30.3 Seconds (25.1-36.5) 08/29/18 05:00 - Constitutional Appears: Non-toxic, No Acute Distress - Head Exam Head Exam: NORMAL INSPECTION, NORMOCEPHALIC - Eye Exam Eye Exam: Normal appearance - ENT Exam ENT Exam: Mucous Membranes Dry - Respiratory Exam Respiratory Exam: Decreased Breath Sounds, Clear to Ausculation Bilateral, NORMAL BREATHING PATTERN - Cardiovascular Exam Cardiovascular Exam: Irregular Rhythm, +S1, +S2 Additional comments: Telemetry atrial fibrillation 110's - GI/Abdominal Exam GI & Abdominal Exam: Soft, Normal Bowel Sounds Additional comments: colostomy RUSSELL drain abdominal incision with jerardo - Extremities Exam Additional comments: 1+edema - Neurological Exam Neurological Exam: Alert, Awake, Oriented x3 - Psychiatric Exam Psychiatric exam: Normal Affect, Normal Mood - Skin Skin Exam: Dry, Normal Color, Warm Assessment and Plan - Assessment and Plan (Free Text) Assessment: A 82 year old male who came in to [facility] for elective right hemicolectomy [address] consult was called to follow up with history of chronic Atrial fibrillation (was on Eliquis). 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 Stabilized and now transferred to telemetry. Chronic atrial fibrillation but off anticoagulation due to bloody drainage to colostomy.On Lovenox.On contact isolation for VRE (wound/abdominal cavity fluid).Refusing to eat, Started on peripheral TPN Plan: Feels okay Denies shortness of breath Telemetry atrial fibrillation 100-110's Will increase Lopressor Blood pressure controlled On Clonidine patch every week,Cardizem 180 mg daily, Lovenox 60 mg every 12 hours. Lasix 20 mg daily,Lopressor 25 mg BID, Prednisone 20 mg daily, On contact isolation for VRE (wound/abdominal cavity fluid) Started on peripheral TPN for low oral intake Encouraged to eat, increase oral intake, supplement with Glucerna Will restart Eliquis once okay with general surgery Physical therapy Continue current medications Continue current treatment Chart reviewed Will follow up Plan and treatment discussed with Dr. Faye
[2018-08-29] MEDS: Budesonide 0.5 mg/2 ml Inhal Susp UD IH SCH ×2 (07:35→20:16)
--- NOTE | 2018-08-29 07:55 | CP.PCM.PN ---
<Brady Sanchez - Last Filed: 08/29/18 08:03> Subjective - Date & Time of Evaluation Date of Evaluation: 08/29/18 Time of Evaluation: 07:49 - Subjective Subjective: Surgery- Dr. Du Patient seen and examined at bedside. Patient continues to have poor PO intake. Currently AAOx3. Fabian drain in place 140cc serous drainage. Incision C/D/I. Yesterday PICC was dislodged, RIJ placed at bedside yesterday. TPN running. Stoma pink, patent with stool output. Last POC 168. Received 1 dose of linezolid. Denies nausea, vomiting, fevers, chills. Objective - Vital Signs/Intake and Output Vital Signs (last 24 hours): Temp Pulse Resp BP Pulse Ox 97.9 F 114 H 19 153/72 H 99 08/29/18 05:52 08/29/18 05:52 08/29/18 05:52 08/29/18 05:52 08/29/18 05:52 Intake and Output: 08/29/18 08/29/18 06:59 18:59 Intake Total 1236 Balance 1236 - Medications Medications: Current Medications Acetylcysteine (Acetylcysteine 20%) 4 ml IH [id number] [facility] Last Admin: 08/29/18 01:56 Dose: 4 ml Aspirin (Ecotrin) 81 mg PO DAILY [facility] Last Admin: 08/28/18 10:13 Dose: 81 mg Budesonide (Pulmicort Respules) 0.5 mg IH [id number] [facility] Last Admin: 08/28/18 20:39 Dose: 0.5 mg Clonidine HCl (Catapres Tts1 0.1 Mg/24 Hr) 1 patch TD Q7D@1000 [facility] Last Admin: 08/27/18 10:32 Dose: 1 patch Dextrose (Dextrose 50% Inj) 0 ml IV STAT PRN; Protocol PRN Reason: Hypoglycemia Protocol Diltiazem HCl (Cardizem Cd) 180 mg PO DAILY [facility] Last Admin: 08/28/18 10:12 Dose: 180 mg Dronabinol (Marinol) 2.5 mg PO TID [facility] Last Admin: 08/28/18 18:18 Dose: Not Given Enoxaparin Sodium (Lovenox) 30 mg SC DAILY [facility]; Protocol Last Admin: 11/17/18 10:14 Dose: 30 mg Famotidine (Pepcid) 20 mg PO DAILY [facility] Last Admin: 08/28/18 10:15 Dose: 20 mg Furosemide (Lasix) 20 mg IV DAILY [facility] Last Admin: 08/28/18 10:13 Dose: 20 mg Dextrose (Dextrose 5% In Water 1000 Ml) 1,000 mls @ 0 mls/hr IV .Q0M PRN; Protocol PRN Reason: Hypoglycemia Protocol Daptomycin 500 mg/ Sodium (Chloride) 100 mls @ 200 mls/hr IV Q24H [facility]; Protocol Stop: 09/05/18 10:01 Last Admin: 08/28/18 10:00 Dose: 200 mls/hr Amino Acids/Electrolytes/Dextrose (Clinimix 5/20 % "E" (2000 Ml)) 2,000 mls @ 83 mls/hr IV .Q24H [facility] Stop: 08/30/18 17:59 Last Admin: 08/28/18 18:19 Dose: 83 mls/hr Micafungin Sodium 100 mg/ (Sodium Chloride) 100 mls @ 100 mls/hr IV DAILY [facility]; Protocol Stop: 09/01/18 10:01 Last Admin: 08/28/18 10:15 Dose: 100 mls/hr Dextrose (Dextrose 5% In Water 1000 Ml) 1,000 mls @ 83 mls/hr IV .Q12H3M [facility] Insulin Human Regular (Humulin R Low) 0 units SC ACHS [facility]; Protocol Last Admin: 08/28/18 21:51 Dose: Not Given Levalbuterol HCl (Xopenex) 0.63 mg IH [id number] [facility] Last Admin: 08/29/18 01:56 Dose: 0.63 mg Lidocaine (Lidoderm) 1 ea TD DAILY [facility] Last Admin: 08/28/18 10:13 Dose: 1 ea Metoprolol Tartrate (Lopressor) 50 mg PO BRKDIN [facility] Prednisone (Prednisone Tab) 10 mg PO DAILY [facility] Last Admin: 08/28/18 10:15 Dose: 10 mg - Labs Labs: 08/29/18 05:00 08/29/18 05:00 PT 14.8 SECONDS (9.4-12.5) H 08/29/18 05:00 INR 1.28 08/29/18 05:00 APTT 30.3 Seconds (25.1-36.5) 08/29/18 05:00 - Constitutional Appears: Non-toxic, Chronically Ill - Eye Exam Eye Exam: EOMI. absent: Scleral icterus - ENT Exam ENT Exam: Mucous Membranes Moist - Respiratory Exam Respiratory Exam: NORMAL BREATHING PATTERN. absent: Accessory Muscle Use, Respiratory Distress - Cardiovascular Exam Cardiovascular Exam: +S1, +S2. absent: Bradycardia, Tachycardia - GI/Abdominal Exam GI & Abdominal Exam: Soft. absent: Distended, Firm, Guarding, Rigid, Tenderness Additional comments: incisions c/d/i fabian in place 150cc serous drainage - Extremities Exam Extremities Exam: Pedal Edema (mild pitting edema BL LE). absent: Calf Tenderness - Neurological Exam Neurological Exam: Alert, Awake - Skin Skin Exam: Intact, Warm Assessment and Plan - Assessment and Plan (Free Text) Assessment: 82M s/p ex-lap and ileal perforation repair w/ VRE+ peritonitis Plan: - cont TPN, HHD, PO supplements - encourage PO intake - cont Marinol - Monitor ostomy and fabian output - Replete electrolytes PRN - daily labs - repeat Drain Cx, UCx, BCx- NGTD - c/s Infectious disease; all recs appreciated - requesting Linezolid IV Q6 for +VRE Drain Cx - cont aggressive PT - encourage OOB to chair/Amb/IS use - d/w Dr. Du Surgical Attending [facility] PGY2 <Rocael Du - Last Filed: 08/29/18 12:02> Objective - Vital Signs/Intake and Output Vital Signs (last 24 hours): Temp Pulse Resp BP Pulse Ox 97.9 F 119 H 19 137/74 99 08/29/18 05:52 08/29/18 09:54 08/29/18 05:52 08/29/18 09:54 08/29/18 05:52 Intake and Output: 08/29/18 08/29/18 06:59 18:59 Intake Total 1236 Balance 1236 - Medications Medications: Current Medications Acetylcysteine (Acetylcysteine 20%) 4 ml IH [id number] [facility] Last Admin: 08/29/18 07:35 Dose: 4 ml Aspirin (Ecotrin) 81 mg PO DAILY [facility] Last Admin: 08/29/18 09:54 Dose: 81 mg Budesonide (Pulmicort Respules) 0.5 mg IH [id number] [facility] Last Admin: 08/29/18 07:35 Dose: 0.5 mg Clonidine HCl (Catapres Tts1 0.1 Mg/24 Hr) 1 patch TD Q7D@1000 [facility] Last Admin: 08/27/18 10:32 Dose: 1 patch Dextrose (Dextrose 50% Inj) 0 ml IV STAT PRN; Protocol PRN Reason: Hypoglycemia Protocol Diltiazem HCl (Cardizem Cd) 180 mg PO DAILY [facility] Last Admin: 08/29/18 09:54 Dose: 180 mg Dronabinol (Marinol) 2.5 mg PO TID [facility] Last Admin: 08/29/18 09:54 Dose: 2.5 mg Enoxaparin Sodium (Lovenox) 30 mg SC DAILY [facility]; Protocol Last Admin: 08/29/18 09:53 Dose: 30 mg Famotidine (Pepcid) 20 mg PO DAILY [facility] Last Admin: 08/29/18 09:55 Dose: 20 mg Furosemide (Lasix) 20 mg IV DAILY [facility] Last Admin: 08/29/18 09:53 Dose: 20 mg Dextrose (Dextrose 5% In Water 1000 Ml) 1,000 mls @ 0 mls/hr IV .Q0M PRN; Protocol PRN Reason: Hypoglycemia Protocol Daptomycin 500 mg/ Sodium (Chloride) 100 mls @ 200 mls/hr IV Q24H [facility]; Protocol Stop: 09/05/18 10:01 Last Admin: 08/29/18 11:23 Dose: 200 mls/hr Amino Acids/Electrolytes/Dextrose (Clinimix 5/20 % "E" (2000 Ml)) 2,000 mls @ 83 mls/hr IV .Q24H [facility] Stop: 08/30/18 17:59 Last Admin: 08/28/18 18:19 Dose: 83 mls/hr Micafungin Sodium 100 mg/ (Sodium Chloride) 100 mls @ 100 mls/hr IV DAILY [facility]; Protocol Stop: 09/01/18 10:01 Last Admin: 08/29/18 11:23 Dose: 100 mls/hr Dextrose (Dextrose 5% In Water 1000 Ml) 1,000 mls @ 83 mls/hr IV .Q12H3M [facility] Linezolid (Zyvox 600mg/300ml D5w) 600 mg in 300 mls @ 200 mls/hr IVPB Q12 [facility]; Protocol Stop: 09/05/18 22:01 Insulin Human Regular (Humulin R Low) 0 units SC ACHS [facility]; Protocol Last Admin: 08/29/18 09:55 Dose: Not Given Levalbuterol HCl (Xopenex) 0.63 mg IH [id number] [facility] Last Admin: 08/29/18 07:35 Dose: 0.63 mg Lidocaine (Lidoderm) 1 ea TD DAILY [facility] Last Admin: 08/29/18 09:53 Dose: 1 ea Metoprolol Tartrate (Lopressor) 50 mg PO BRKDIN [facility] Prednisone (Prednisone Tab) 10 mg PO DAILY [facility] Last Admin: 08/29/18 09:54 Dose: 10 mg - Labs Labs: 08/29/18 05:00 08/29/18 05:00 PT 14.8 SECONDS (9.4-12.5) H 08/29/18 05:00 INR 1.28 08/29/18 05:00 APTT 30.3 Seconds (25.1-36.5) 08/29/18 05:00 Assessment and Plan - Assessment and Plan (Free Text) Plan: PICC Line bleeding-removed by nursing staff(Resident called afterwards)-TPN abruptly stopped but residwent started D5W/checked Glucose level(193) TLC Reinserted(PICC team could not come in for 48 Hrs. Drainage less with intermittent Linezolid-NOW bid per Dr Watts as Daptomycin Sensitivity could not be done in Micro lab [place] Lovenox cautiously by Dr Jean Pierre Du MD FACS
--- NOTE | 2018-08-29 08:21 | PN ---
DATE: 08/29/2018 PULMONARY NOTE SUBJECTIVE: The patient appears comfortable this morning. He is not short of breath at rest. He does remain very, very weak. OBJECTIVE: VITAL SIGNS: Temperature is 97.9, pulse is 108, respiratory rate 19, blood pressure 153/72. Oxygen saturation on nasal cannula is 99%. HEENT: Normocephalic, atraumatic. No JVD. CARDIOVASCULAR: Systolic ejection murmur at the lower left sternal border. Questionable S3 gallop. LUNGS: Decreased breath sounds at the bases (improved overall). Minimal/less rhonchi. No wheezing. EXTREMITIES: Mild edema. No cyanosis, no clubbing. Calves are nontender to palpation. GI: Abdomen is soft, nontender and nondistended. Abdomen is postoperative. SKIN: No acute rash. NEUROLOGIC: Limited at the present time. PERTINENT LABORATORY DATA: Chest x-ray was repeated yesterday and reviewed. It is again a very poor, very rotated film. There is no significant change - compared to the film of 08/23/2018. IMPRESSION: 1. Intra-abdominal perforation. 2. Status post right hemicolectomy. 3. Recurrent left lung atelectasis. 4. Chronic obstructive pulmonary disease. 5. Congestive heart failure. 6. Atrial fibrillation. 7. Anemia, thrombocytopenia. PLAN: The patient appears comfortable this morning. He is not short of breath at rest. He remains very, very weak appearing. He does state to feeling better overall. I did discuss the case with the night nurse at length. I also discussed the case with the respiratory therapist. Apparently, the patient's night was uneventful. On physical exam, there is certainly less bronchospasm noted. In addition, the oxygen saturation on nasal cannula is now 99%. I will continue the current nebulizer treatments and low-dose oral steroids for now. I will also continue with the aggressive pulmonary toilet for now. Again, I did discuss the case with the respiratory therapist. The patient remains on antibiotic therapy - as per Infectious Disease. Temperatures have resolved. Leukocytosis has resolved. Clinical status of the patient is significantly improved - compared to the initial presentation. He does remain very guarded overall. I will discuss the above with the attending physician. Rosalio Karpman, MD [facility] # [id number] [email or web address]
[2018-08-29] MEDS: Lidocaine 5% Patch TD SCH (09:53)
[2018-08-29] MEDS: Enoxaparin 30 mg Syringe SC SCH (09:53)
[2018-08-29] MEDS: diltiaZEM 180 mg/24 Hours CD Cap PO SCH (09:54)
[2018-08-29] MEDS: Insulin Reg-LOW-Coverage SC SCH ×4 (09:55→21:37)
[2018-08-29] MEDS: DAPTOmycin 500 MG in Sodium Chloride 0.9% 100 ML IV SCH (11:23)
[2018-08-29] MEDS: Micafungin 100 MG in Sodium Chloride 0.9% 100 ML IV SCH (11:23)
--- NOTE | 2018-08-29 11:55 | CP.PCM.PN ---
Subjective - Date & Time of Evaluation Date of Evaluation: 08/29/18 Time of Evaluation: 10:55 - Subjective Subjective: Trying to eat but still poor PO intake, no fevers, not in distress, no nausea currently. Objective - Vital Signs/Intake and Output Vital Signs (last 24 hours): Temp Pulse Resp BP Pulse Ox 97.4 F L 111 H 20 128/69 98 08/28/18 12:00 08/28/18 12:00 08/28/18 12:00 08/28/18 12:00 08/27/18 06:00 Intake and Output: 08/28/18 08/28/18 06:59 18:59 Intake Total 1556 Output Total 50 80 Balance 1506 -80 - Medications Medications: Current Medications Acetylcysteine (Acetylcysteine 20%) 4 ml IH [id number] [facility] Last Admin: 08/28/18 10:32 Dose: 4 ml Apixaban (Eliquis) 2.5 mg PO BID [facility] Last Admin: 08/09/18 10:14 Dose: Not Given Aspirin (Ecotrin) 81 mg PO DAILY [facility] Last Admin: 08/28/18 10:13 Dose: 81 mg Budesonide (Pulmicort Respules) 0.5 mg IH [id number] [facility] Last Admin: 08/28/18 10:32 Dose: 0.5 mg Clonidine HCl (Catapres Tts1 0.1 Mg/24 Hr) 1 patch TD Q7D@1000 [facility] Last Admin: 08/27/18 10:32 Dose: 1 patch Dextrose (Dextrose 50% Inj) 0 ml IV STAT PRN; Protocol PRN Reason: Hypoglycemia Protocol Diltiazem HCl (Cardizem Cd) 180 mg PO DAILY [facility] Last Admin: 08/28/18 10:12 Dose: 180 mg Dronabinol (Marinol) 2.5 mg PO TID [facility] Last Admin: 08/28/18 10:14 Dose: 2.5 mg Enoxaparin Sodium (Lovenox) 60 mg SC Q12 [facility]; Protocol Last Admin: 08/17/18 09:10 Dose: Not Given Enoxaparin Sodium (Lovenox) 30 mg SC DAILY [facility]; Protocol Last Admin: 08/28/18 10:14 Dose: 30 mg Famotidine (Pepcid) 20 mg PO DAILY [facility] Last Admin: 08/28/18 10:15 Dose: 20 mg Furosemide (Lasix) 20 mg IV DAILY [facility] Last Admin: 08/28/18 10:13 Dose: 20 mg Dextrose (Dextrose 5% In Water 1000 Ml) 1,000 mls @ 0 mls/hr IV .Q0M PRN; Protocol PRN Reason: Hypoglycemia Protocol Daptomycin 500 mg/ Sodium (Chloride) 100 mls @ 200 mls/hr IV Q24H [facility]; Protocol Stop: 09/05/18 10:01 Last Admin: 08/27/18 17:00 Dose: 200 mls/hr Amino Acids/Electrolytes/Dextrose (Clinimix 5/20 % "E" (2000 Ml)) 2,000 mls @ 83 mls/hr IV .Q24H [facility] Stop: 08/30/18 17:59 Last Admin: 08/27/18 18:30 Dose: 83 mls/hr Micafungin Sodium 100 mg/ (Sodium Chloride) 100 mls @ 100 mls/hr IV DAILY [facility]; Protocol Stop: 09/01/18 10:01 Last Admin: 08/28/18 10:15 Dose: 100 mls/hr Linezolid (Zyvox 600mg/300ml D5w) 600 mg in 300 mls @ 200 mls/hr IVPB ONCE ONE; Protocol Stop: 08/28/18 14:44 Insulin Human Regular (Humulin R Low) 0 units SC ACHS [facility]; Protocol Last Admin: 08/27/18 23:36 Dose: Not Given Levalbuterol HCl (Xopenex) 0.63 mg IH [id number] [facility] Last Admin: 08/28/18 10:32 Dose: 0.63 mg Lidocaine (Lidoderm) 1 ea TD DAILY [facility] Last Admin: 08/28/18 10:13 Dose: 1 ea Metoprolol Tartrate (Lopressor) 25 mg PO BID [facility] Last Admin: 08/28/18 10:14 Dose: 25 mg Prednisone (Prednisone Tab) 10 mg PO DAILY [facility] Last Admin: 08/28/18 10:15 Dose: 10 mg - Labs Labs: 08/28/18 08:00 08/28/18 08:00 PT 14.5 SECONDS (9.4-12.5) H 08/11/18 12:50 INR 1.26 08/11/18 12:50 APTT 33.2 Seconds (25.1-36.5) 08/11/18 12:50 - Constitutional Appears: Cachectic, Chronically Ill - Head Exam Head Exam: NORMAL INSPECTION - Respiratory Exam Respiratory Exam: Decreased Breath Sounds - Cardiovascular Exam Cardiovascular Exam: +S1, +S2 - GI/Abdominal Exam GI & Abdominal Exam: Soft. absent: Tenderness Assessment and Plan - Assessment and Plan (Free Text) Plan: Assessment sepsis S/P VDRF due to perforated ileum S/P ex-lap and resection of terminal ileum and primary anastomosis, growing VRE and C. tropicalis POD #18 S/P treatment for HCAP rectal cancer atrial fibrillation GERD anxiety disorder chronic CHF CAD Plan on Daptomycin, Mycamine and will hold Merrem for now because of the increasing AST, ALT, T. bili (it is now trending down) and will continue to follow clinically - discussed with Dr. Du - will start Zyvox and will monitor platelet count will continue to trend WBC count, as well as monitor RUSSELL drain output and see how much the patient eats - patient still continues to be very ill discussed with Dr. Du - he will need to continue TPN follow up 08/25 final culture results (this is a repeat cx) - still growing VRE but the growth but 08/18 is less compared to the 08/10 cultures - follow up 08/25 cx - discussed with surgery, will call microlab to make sure VRE is sensitive to Daptomycin overall prognosis is guarded at best
--- NOTE | 2018-08-29 16:58 | PN ---
DATE: 08/29/2018 SUBJECTIVE: The patient is 82 years old, seen and examined, lying in bed, seems to be comfortable. According to nurse, he has brief episodes of confusion. Oral intake is very poor. His PICC line came out. He has a right IJ placed. Otherwise, he has poor IV access. PHYSICAL EXAMINATION GENERAL: He is awake and alert. Able to communicate. VITAL SIGNS: He is afebrile, pulse 126, respirations 19, blood pressure 154/77. LUNGS: A few soft crackles posteriorly in the middle lung region. HEART: S1, S2 audible. ABDOMEN: Soft. Colostomy is functional. The drain has yellowish clear discharge. No blood or pus in the drain. EXTREMITIES: Bilateral legs, no edema. LABORATORY DATA: WBC 6.7, hemoglobin 9.8, hematocrit 30.5, platelets 104,000. PT 14.8, INR 1.28. Chemistry; sodium 135, potassium 4.6, chloride 100, CO2 of 31, BUN of 43, creatinine 0.6, blood sugar 189. ASSESSMENT AND PLAN: 1. Generalized weakness. Poor oral intake. Continue total parenteral nutrition. 2. History of right hemicolectomy. 3. Status post ileal resection and end-to-end anastomosis. 4. . 5. 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 We need to watch platelet count really closely. We will discuss with the Infectious Disease. Probably, need to discontinue daptomycin since his vancomycin-resistant Enterococcus is sensitive to Zyvox. Monitor electrolytes. Follow up in a.m. 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
[2018-08-29] MEDS: Linezolid 600 mg in D5W 300 ml 600 MG/300 ML BAG IVPB SCH (22:00)
[2018-08-30] MEDS: Acetylcysteine 20% Inhal Soln (4ml) IH SCH ×4 (01:25→20:03)
[2018-08-30] MEDS: Levalbuterol 0.63 MG/3 ML Inhal Soln UD IH SCH ×4 (01:25→20:03)
[2018-08-30 06:41] LABS: MEAN CELL VOLUME 93.2 fl (80.0-105.0); MEAN CORPUSCULAR HEMOGLOBIN 30.4 pg (25.0-35.0); MEAN CORPUSCULAR HGB CONC 32.6 g/dl (31.0-37.0); RBC 2.96 10^6/uL (3.5-6.1); RED CELL DISTRIBUTION WIDTH 19.3 % (11.5-14.5); WHITE BLOOD COUNT 5.8 10^3/uL (4.5-11.0)
--- NOTE | 2018-08-30 06:44 | CP.PCM.PN ---
Subjective - Date & Time of Evaluation Date of Evaluation: 08/30/18 Time of Evaluation: 06:15 - Subjective Subjective: No distress,awake, alert,feels okay Reason for consultation and follow up:Cardiac evaluation of chronic atrial fibrillation, status post right hemicolectomy, status post perforation with hollow viscus, status post explor lap, Seen and examined by me and Dr. Greenfield Objective - Vital Signs/Intake and Output Vital Signs (last 24 hours): Temp Pulse Resp BP Pulse Ox 98.7 F 108 H 19 132/72 94 L 08/30/18 05:45 08/30/18 05:45 08/30/18 05:45 08/30/18 05:45 08/30/18 05:45 Intake and Output: 08/29/18 08/30/18 18:59 06:59 Intake Total 3029 Output Total 95 95 Balance -95 2934 - Medications Medications: Current Medications Acetylcysteine (Acetylcysteine 20%) 4 ml IH [id number] [facility] Last Admin: 08/30/18 01:25 Dose: Not Given Aspirin (Ecotrin) 81 mg PO DAILY [facility] Last Admin: 08/29/18 09:54 Dose: 81 mg Budesonide (Pulmicort Respules) 0.5 mg IH [id number] [facility] Last Admin: 08/29/18 20:16 Dose: 0.5 mg Clonidine HCl (Catapres Tts1 0.1 Mg/24 Hr) 1 patch TD Q7D@1000 [facility] Last Admin: 08/27/18 10:32 Dose: 1 patch Dextrose (Dextrose 50% Inj) 0 ml IV STAT PRN; Protocol PRN Reason: Hypoglycemia Protocol Diltiazem HCl (Cardizem Cd) 180 mg PO DAILY [facility] Last Admin: 08/29/18 09:54 Dose: 180 mg Dronabinol (Marinol) 2.5 mg PO TID [facility] Last Admin: 08/29/18 17:46 Dose: 2.5 mg Enoxaparin Sodium (Lovenox) 30 mg SC DAILY [facility]; Protocol Last Admin: 08/29/18 09:53 Dose: 30 mg Famotidine (Pepcid) 20 mg PO DAILY [facility] Last Admin: 08/29/18 09:55 Dose: 20 mg Furosemide (Lasix) 20 mg IV DAILY [facility] Last Admin: 08/29/18 09:53 Dose: 20 mg Dextrose (Dextrose 5% In Water 1000 Ml) 1,000 mls @ 0 mls/hr IV .Q0M PRN; Protocol PRN Reason: Hypoglycemia Protocol Daptomycin 500 mg/ Sodium (Chloride) 100 mls @ 200 mls/hr IV Q24H [facility]; Protocol Stop: 09/05/18 10:01 Last Admin: 08/29/18 11:23 Dose: 200 mls/hr Amino Acids/Electrolytes/Dextrose (Clinimix 5/20 % "E" (2000 Ml)) 2,000 mls @ 83 mls/hr IV .Q24H [facility] Stop: 08/30/18 17:59 Last Admin: 08/29/18 17:49 Dose: 83 mls/hr Micafungin Sodium 100 mg/ (Sodium Chloride) 100 mls @ 100 mls/hr IV DAILY [facility]; Protocol Stop: 09/01/18 10:01 Last Admin: 08/29/18 11:23 Dose: 100 mls/hr Dextrose (Dextrose 5% In Water 1000 Ml) 1,000 mls @ 83 mls/hr IV .Q12H3M [facility] Linezolid (Zyvox 600mg/300ml D5w) 600 mg in 300 mls @ 200 mls/hr IVPB Q12 [facility]; Protocol Stop: 09/05/18 22:01 Insulin Human Regular (Humulin R Low) 0 units SC ACHS [facility]; Protocol Last Admin: 08/29/18 21:37 Dose: Not Given Levalbuterol HCl (Xopenex) 0.63 mg IH [id number] [facility] Last Admin: 08/30/18 01:25 Dose: Not Given Lidocaine (Lidoderm) 1 ea TD DAILY [facility] Last Admin: 08/29/18 09:53 Dose: 1 ea Metoprolol Tartrate (Lopressor) 50 mg PO BRKDIN [facility] Last Admin: 08/29/18 17:46 Dose: 50 mg Prednisone (Prednisone Tab) 10 mg PO DAILY [facility] Last Admin: 08/29/18 09:54 Dose: 10 mg - Labs Labs: 08/29/18 05:00 08/29/18 05:00 PT 14.8 SECONDS (9.4-12.5) H 08/29/18 05:00 INR 1.28 08/29/18 05:00 APTT 30.3 Seconds (25.1-36.5) 08/29/18 05:00 - Constitutional Appears: Non-toxic, No Acute Distress - Head Exam Head Exam: NORMAL INSPECTION, NORMOCEPHALIC - Eye Exam Eye Exam: Normal appearance Pupil Exam: NORMAL ACCOMODATION - ENT Exam ENT Exam: Mucous Membranes Dry - Respiratory Exam Respiratory Exam: Decreased Breath Sounds, NORMAL BREATHING PATTERN - Cardiovascular Exam Cardiovascular Exam: Irregular Rhythm, +S1, +S2 Additional comments: Telemetry atrial fibrillation 90's - GI/Abdominal Exam GI & Abdominal Exam: Soft, Normal Bowel Sounds Additional comments: colostomy RUSSELL drain abdominal dressing - Exam Additional comments: incontinent/diaper - Extremities Exam Extremities Exam: Full ROM - Neurological Exam Neurological Exam: Alert, Awake, Oriented x3 - Psychiatric Exam Psychiatric exam: Normal Affect, Normal Mood - Skin Skin Exam: Dry, Normal Color, Warm Assessment and Plan - Assessment and Plan (Free Text) Assessment: A 82 year old male who came in to [facility] for elective right hemicolectomy yesterday. consult was called to follow up with history of chronic Atrial fibrillation (was on Eliquis). 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 Stabilized and now transferred to telemetry. Chronic atrial fibrillation but off anticoagulation due to bloody drainage to colostomy.On Lovenox.On contact isolation for VRE (wound/abdominal cavity fluid ).Refusing to eat, Started on peripheral TPN, PICC dislodged, right IJ TLC inserted. TPN restarted. Plan: Denies shortness of breath, feels okay PICC line dislodged, TLC right IJ inserted TPN restarted Telemetry atrial fibrillation 100-110's Increased Lopressor dose yesterday Blood pressure controlled On Clonidine patch every week,Cardizem 180 mg daily, Lovenox 60 mg every 12 hours. Lasix 20 mg daily,Lopressor 50mg BID, Prednisone 20 mg daily, On contact isolation for VRE (wound/abdominal cavity fluid) Started on TPN for low oral intake Encouraged to eat, increase oral intake, supplement with Glucerna Will restart Eliquis once okay with general surgery On Lovenox Physical therapy Continue current medications Continue current treatment Chart reviewed Will follow up Plan and treatment discussed with Dr. Greenfield
[2018-08-30 07:37] LABS: ALB/GLOB RATIO 0.9 (1.1-1.8); ALT/SGPT 94 U/L (7-56); AST/SGOT 49 U/L (17-59); BLOOD UREA NITROGEN 46 mg/dL (7-21); CALCIUM 7.6 mg/dL (8.4-10.5); GFR NON-AFRICAN AMERICAN > 60
--- NOTE | 2018-08-30 07:41 | PN ---
DATE: 08/30/2018 PULMONARY NOTE DICTATION SUBJECTIVE: The patient appears comfortable this morning. He is not short of breath at rest. He remains very weak appearing. PHYSICAL EXAMINATION: VITAL SIGNS: Temperature is 98.7, pulse is 108, respirations 19, blood pressure 132/72. Oxygen saturation on nasal cannula is 94-96%. HEENT: Normocephalic, atraumatic. No JVD. CARDIOVASCULAR: Systolic ejection murmur at the lower left sternal border. Questionable S3 gallop. LUNGS: Decreased breath sounds at the bases (improved overall). Minimal/less rhonchi. No wheezing. EXTREMITIES: Mild edema. No cyanosis, no clubbing. Calves are nontender to palpation. GI: Abdomen is soft, nontender and nondistended. Abdomen is postoperative. SKIN: No acute rash. NEUROLOGIC: Exam limited at the present time. IMPRESSION: 1. Intra-abdominal perforation. 2. Status post right hemicolectomy. 3. Recurrent left lung atelectasis. 4. Chronic obstructive pulmonary disease. 5. Congestive heart failure. 6. Atrial fibrillation. 7. Anemia, thrombocytopenia. PLAN: The patient appears comfortable this morning. He is not short of breath at rest. He remains very weak appearing. He does state to feeling better overall. I did discuss the case with the night nurse at length. The night nurse stated the patient had an uneventful night. On physical exam, there is certainly less bronchospasm noted. In addition, the alveolar-arterial gradient is also much less. I will continue the current nebulizer treatments and low-dose oral steroids for now. I will also continue with the pulmonary toilet measures - as best as possible. The patient remains on antibiotic therapy - as per Infectious Disease. Temperatures have resolved. The leukocytosis has resolved. Inputs by Surgery and Cardiology are also noted. Clinical status of the patient is significantly improved - compared to his initial presentation. His overall status/prognosis does remain very guarded. I will discuss the above with Dr. Du. Rosalio Blevins MD [facility]ENTER[facility]evon
[2018-08-30] MEDS: Budesonide 0.5 mg/2 ml Inhal Susp UD IH SCH ×2 (07:43→20:03)
--- NOTE | 2018-08-30 07:43 | PN ---
DATE: 08/29/2018 SUBJECTIVE: This 82-year-old male remains hospitalized on the cardiac thomas, on 08/29/2018. He remains weak and deconditioned. Review of his medical record shows no fever in the past 24 hours, and he remains in an atrial fibrillation rhythm on shelter monitor. Appetite remains poor. PHYSICAL EXAMINATION: VITAL SIGNS: Temperature 97.9, respirations 19, pulse 118, and blood pressure 137/74. HEENT: Head, normocephalic and atraumatic. Eyes, no icterus. NECK: Supple. HEART: Irregular, S1, S2. LUNGS: With occasional rhonchi. ABDOMEN: Soft, functioning colostomy. EXTREMITIES: No edema. SKIN: Without rash. NEUROLOGICAL: Deconditioned. VASCULAR: Legs warm to touch. PSYCHOLOGICAL: Chronically confused. LABORATORY DATA: White count 6700, hemoglobin 9.8, hematocrit 30.5, platelets 104,000. Sodium 135, K 4.6, chloride 100, bicarb 31, BUN 43, creatinine 0.6, random blood sugar 183, calcium 7.7, phosphorous 3.8, magnesium 2.3. Bilirubin 3.1, AST 50, ALT 119, and alk phos 91, albumin low 2.2. Urine culture from 08/25/2018, no growth, and body fluid cultures and blood cultures from 08/25/2018, no growth as well. IMPRESSION: An 82-year-old male with multiple medical problems, most recently vancomycin-resistant enterococci and Reshma tropicalis, growing from exploratory laparotomy wound sites, now showing improvement on parenteral antibiotics with [id number] renal insufficiency, prerenal azotemia in the setting of chronic receptive pulmonary disease and needed steroid use and comorbidities of deconditioning, chronic obstructive pulmonary disease, status post respiratory failure which required intubation x2 and bronchoscopy for suctioning of mucus plugging with atherosclerotic heart disease, chronic stable systolic congestive heart failure, chronic hypertension, atrial fibrillation, insulin-dependent diabetes mellitus, peptic ulcer disease with gastroesophageal reflux disease, anemia of chronic disease, chronic thrombocytopenia, and failure to thrive. PLAN: The plan at present is to continue medications including Zyvox, Xopenex, Pulmicort inhalational therapy, tapering prednisone dosing, Pepcid, micafungin Lovenox, Lopressor, Lidoderm, IV Lasix, Humulin R insulin coverage, Ecotrin, daptomycin, Clinimix, parenteral nutrition, clonidine, Cardizem, and Mucomyst inhalational therapy. The patient remains too weak for transfer to subacute rehab at present. He will have serial labs, pulmonary toiletry, bedside physical therapy, aspiration and isolation precautions, and ultimate plan will be dispositioned to subacute rehab when deemed stable by co-consultants and attending physician, Dr. Rocael Du, surgeon. Sara Ramirez MD
--- NOTE | 2018-08-30 08:02 | PN ---
DATE: 08/28/2018 LOCATION: The patient is in room 268, bed 1. SUBJECTIVE: The patient denying any chest pain, shortness of breath or palpitation. So, I agree with the note by Evangelina Mcarthur. We will continue present therapy and we will closely follow with you. Gladis Faye MD
--- NOTE | 2018-08-30 08:08 | PN ---
DATE: 08/29/2018 LOCATION: Patient in room 268, bed 1. Today's progress note has been already dictated by Evangelina Mcarthur, so this is an addendum to the progress note. Patient is status post right hemicolectomy, atrial fibrillation, hypertension, TIA, hyperlipidemia, history of falls, urinary frequency and retention, rectal cancer resection in 2001, colostomy, history of abdominal aortic aneurysm with percutaneous aortic endograft on 03/16/2018. Patient had GI bleeding, found to have polypoid mass in the ascending colon requiring surgery for which he had right hemicolectomy, complicated by perforation of hollow viscus requiring exploratory laparotomy and bowel resection. Also had lung atelectasis requiring intubation. Patient is off anticoagulation for atrial fibrillation due to bleeding. Patient has poor appetite. Patient on Lovenox 30 mg subcu daily, aspirin 81 mg daily, daptomycin 500 mg IV every 24 hours, Cardizem CD 180 mg daily, clonidine 0.1 mg per 24 hour 1 patch every 7 days, peripheral hyperalimentation, furosemide 20 IV daily, metoprolol 50 b.i.d., Pepcid 20 daily, micafungin 100 mg IV daily, prednisone 10 mg p.o. daily. We will continue present therapy and we will monitor the patient. We will follow with you. Gladis Faye MD
--- NOTE | 2018-08-30 08:08 | CP.PCM.PN ---
Subjective - Date & Time of Evaluation Date of Evaluation: 08/30/18 Time of Evaluation: 08:03 - Subjective Subjective: General Surgery Dr. Du Pt S&E @bedside. No acute events overnight. Pt has no complaints this AM. reports improved appetite. denies F/C, N/V, D/C. good ostomy output. tolerating diet. Mayra 100cc serous drainage x12hrs. Objective - Vital Signs/Intake and Output Vital Signs (last 24 hours): Temp Pulse Resp BP Pulse Ox 98.7 F 108 H 19 132/72 94 L 08/30/18 05:45 08/30/18 05:45 08/30/18 05:45 08/30/18 05:45 08/30/18 05:45 Intake and Output: 08/30/18 08/30/18 06:59 18:59 Intake Total 3029 Output Total 95 Balance 2934 - Medications Medications: Current Medications Acetylcysteine (Acetylcysteine 20%) 4 ml IH [id number] [facility] Last Admin: 08/30/18 07:44 Dose: 4 ml Aspirin (Ecotrin) 81 mg PO DAILY [facility] Last Admin: 08/29/18 09:54 Dose: 81 mg Budesonide (Pulmicort Respules) 0.5 mg IH [id number] [facility] Last Admin: 08/30/18 07:43 Dose: 0.5 mg Clonidine HCl (Catapres Tts1 0.1 Mg/24 Hr) 1 patch TD Q7D@1000 [facility] Last Admin: 08/27/18 10:32 Dose: 1 patch Dextrose (Dextrose 50% Inj) 0 ml IV STAT PRN; Protocol PRN Reason: Hypoglycemia Protocol Diltiazem HCl (Cardizem Cd) 180 mg PO DAILY [facility] Last Admin: 08/29/18 09:54 Dose: 180 mg Dronabinol (Marinol) 2.5 mg PO TID [facility] Last Admin: 08/29/18 17:46 Dose: 2.5 mg Enoxaparin Sodium (Lovenox) 30 mg SC DAILY [facility]; Protocol Last Admin: 08/29/18 09:53 Dose: 30 mg Famotidine (Pepcid) 20 mg PO DAILY [facility] Last Admin: 08/29/18 09:55 Dose: 20 mg Furosemide (Lasix) 20 mg IV DAILY [facility] Last Admin: 08/29/18 09:53 Dose: 20 mg Dextrose (Dextrose 5% In Water 1000 Ml) 1,000 mls @ 0 mls/hr IV .Q0M PRN; P rotocol PRN Reason: Hypoglycemia Protocol Daptomycin 500 mg/ Sodium (Chloride) 100 mls @ 200 mls/hr IV Q24H KD; Protocol Stop: 09/05/18 10:01 Last Admin: 08/29/18 11:23 Dose: 200 mls/hr Amino Acids/Electrolytes/Dextrose (Clinimix 5/20 % "E" (2000 Ml)) 2,000 mls @ 83 mls/hr IV .Q24H KD Stop: 08/30/18 17:59 Last Admin: 08/29/18 17:49 Dose: 83 mls/hr Micafungin Sodium 100 mg/ (Sodium Chloride) 100 mls @ 100 mls/hr IV DAILY KD; Protocol Stop: 09/01/18 10:01 Last Admin: 08/29/18 11:23 Dose: 100 mls/hr Dextrose (Dextrose 5% In Water 1000 Ml) 1,000 mls @ 83 mls/hr IV .Q12H3M KD Linezolid (Zyvox 600mg/300ml D5w) 600 mg in 300 mls @ 200 mls/hr IVPB Q12 KD; Protocol Stop: 09/05/18 22:01 Last Admin: 08/29/18 22:00 Dose: 200 mls/hr Insulin Human Regular (Humulin R Low) 0 units SC ACHS KD; Protocol Last Admin: 08/29/18 21:37 Dose: Not Given Levalbuterol HCl (Xopenex) 0.63 mg IH [id number] [facility] Last Admin: 08/30/18 07:43 Dose: 0.63 mg Lidocaine (Lidoderm) 1 ea TD DAILY KD Last Admin: 08/29/18 09:53 Dose: 1 ea Metoprolol Tartrate (Lopressor) 50 mg PO BRKDIN [facility] Last Admin: 08/29/18 17:46 Dose: 50 mg Prednisone (Prednisone Tab) 10 mg PO DAILY KD Last Admin: 08/29/18 09:54 Dose: 10 mg - Labs Labs: 08/30/18 06:20 08/30/18 06:20 PT 14.8 SECONDS (9.4-12.5) H 08/29/18 05:00 INR 1.28 08/29/18 05:00 APTT 30.3 Seconds (25.1-36.5) 08/29/18 05:00 - Constitutional Appears: Non-toxic, Chronically Ill - Head Exam Head Exam: NORMAL INSPECTION - Eye Exam Eye Exam: Normal appearance - ENT Exam ENT Exam: Mucous Membranes Moist - Respiratory Exam Respiratory Exam: NORMAL BREATHING PATTERN. absent: Accessory Muscle Use, Respiratory Distress - Cardiovascular Exam Cardiovascular Exam: Tachycardia. absent: Bradycardia - GI/Abdominal Exam GI & Abdominal Exam: Soft. absent: Distended, Firm, Guarding, Tenderness Additional comments: stoma pink and patent ostomy w/ stool present dressings c/d/i mayra w/ serous drainage. - Extremities Exam Extremities Exam: Normal Inspection - Neurological Exam Neurological Exam: Alert, Awake, Oriented x3 - Psychiatric Exam Psychiatric exam: Normal Affect, Normal Mood - Skin Skin Exam: Dry, Intact, Normal Color, Warm Assessment and Plan - Assessment and Plan (Free Text) Assessment: 82M s/p ex-lap and ileal perforation repair w/ VRE+ peritonitis, resolved Plan: - cont TPN, HHD, PO supplements - encourage PO intake - cont Marinol - Monitor ostomy and mayra output - Replete electrolytes PRN - daily labs - repeat Drain Cx, UCx, BCx- NGTD - f/u ID recs - cont aggressive PT - encourage OOB to chair/Amb/IS use Pt discussed w/ Dr. Florian West DO PGY3
[2018-08-30] MEDS: Insulin Reg-LOW-Coverage SC SCH ×3 (08:57→18:36)
[2018-08-30] MEDS: Micafungin 100 MG in Sodium Chloride 0.9% 100 ML IV SCH (09:04)
[2018-08-30] MEDS: diltiaZEM 180 mg/24 Hours CD Cap PO SCH (09:38)
[2018-08-30] MEDS: Enoxaparin 30 mg Syringe SC SCH (09:38)
[2018-08-30] MEDS: Lidocaine 5% Patch TD SCH (09:39)
[2018-08-30] MEDS: Linezolid 600 mg in D5W 300 ml 600 MG/300 ML BAG IVPB SCH ×2 (11:22→22:01)
--- NOTE | 2018-08-30 11:44 | PN ---
DATE: 08/30/2018 SUBJECTIVE: This 82-year-old male remains hospitalized on the cardiac thomas at the [facility] on the morning of 08/30/2018. He is status post an IJ triple-lumen catheter placement. He remains in atrial fibrillation. He is weak, deconditioned and on parenteral antibiotics for VRE and Reshma tropicalis in wound cultures. PHYSICAL EXAMINATION: VITAL SIGNS: Temperature is 98.7, respirations 19, pulse 108, blood pressure 132/72 with pulse ox 94%. HEENT: Head: Normocephalic, atraumatic. Eyes: No icterus. NECK: Supple. HEART: Irregular S1, S2. LUNGS: With rhonchi. ABDOMEN: Soft. Functioning colostomy. EXTREMITIES: No edema. SKIN: Without rash. NEUROLOGICAL: Deconditioned. VASCULAR: Legs warm to touch. LABORATORY DATA: White count 5800, hemoglobin 9, hematocrit 27.6, platelets 102,000. Sodium 136, K 4.6, chloride 101, bicarb 34, BUN 46, creatinine 0.5, random blood sugar 207, calcium 7.6, phosphorous 3.4, magnesium 2.3, bilirubin 3.8, AST 49, ALT is 94, alk phos 84. IMPRESSION: An 82-year-old male status post right hemicolectomy for cecal mass and exploratory laparotomy for perforated ileum, status post respiratory failure x2 requiring intubation and bronchoscopy for suctioning of mucus plugging with comorbidities of acute renal failure, improved; prerenal azotemia secondary to steroids for chronic obstructive pulmonary disease as well as chronic systolic congestive heart failure and chronic atrial fibrillation, hypertension, anemia of chronic disease, thrombocytopenia, insulin-dependent diabetes mellitus, peptic ulcer disease with gastroesophageal reflux disease, degenerative arthritis, deconditioning and confusional state. PLAN: The plan at present is to continue Mucomyst, Cardizem, clonidine, Clinimix, Ecotrin, Humulin, Lasix, Lidoderm, Lopressor, subcu Lovenox, Pepcid, oral prednisone taper, Pulmicort inhalational therapy, Xopenex and IV Zyvox. The patient continues to receive physical therapy for reconditioning and gait training. He will have serial labs followed on a daily basis. He is ordered to have BiPAP, chest physiotherapy, nasal O2, heart healthy soft bland diet, aspiration precautions, isolation precautions, chest physiotherapy and VTE mechanical device antiembolism stockings. Ultimate plan will be for transfer to subacute rehab when medically stable. Overall prognosis remains poor and guarded at present. Sara Ramirez MD
--- NOTE | 2018-08-30 12:56 | PN ---
DATE: 08/30/2018 SUBJECTIVE: The patient is 82 years old lying in bed. Looks weak, tired, oral intake is very poor. Still on TPN. No fever or chills. PHYSICAL EXAMINATION: VITAL SIGNS: He is afebrile, pulse 108, respiration 19, blood pressure 132/72. LUNGS: Bilateral fair airflow. No rhonchi or crackle. HEART: S1, S2 audible. Tachycardic. ABDOMEN: Soft. Colostomy functional and has a straw colored fluid in the drain. EXTREMITIES: Bilateral legs SCD's on. LABORATORY EXAMINATION: WBC is 5.8, hemoglobin 9, hematocrit 27.6, platelets 102. Chemistry: Sodium 136, potassium 4.6, chloride 101, CO2 34, BUN 46, creatinine 0.5, blood sugar of 158, total bili is 3.8, ALT 94, AST has normalized. ASSESSMENT: 1. Status post laparotomy. 2. Right hemicolectomy. 3. Ileal infection and end-to-end anastomosis. 4. Seizure disorder. 5. Vanco resistant enterococci in the peritoneal fluid. 6. Reshma tropicalis. 7. Renal insufficiency. 8. Chronic atrial fibrillation. 9. History of chronic obstructive pulmonary disease. 10. Status post respiratory failure. 11. Generalized weakness and poor oral intake with malnutrition. PLAN: So, I spoke to Dr. Quispe. We will discontinue daptomycin that is causing poor appetite. Probably, he is still on TPN. He is on IV Zyvox. Dr. Du has ordered new culture for his peritoneal cavity. We will recommend bedside range of motion exercises and strengthening exercises. Tri Fleming MD
--- NOTE | 2018-08-30 13:22 | CP.PCM.PN ---
Subjective - Date & Time of Evaluation Date of Evaluation: 08/30/18 Time of Evaluation: 10:35 - Subjective Subjective: Patient is still not eating well, no fevers, not in distress. Objective - Vital Signs/Intake and Output Vital Signs (last 24 hours): Temp Pulse Resp BP Pulse Ox 97.9 F 119 H 19 137/74 99 08/29/18 05:52 08/29/18 09:54 08/29/18 05:52 08/29/18 09:54 08/29/18 05:52 Intake and Output: 08/29/18 08/29/18 06:59 18:59 Intake Total 1236 Balance 1236 - Medications Medications: Current Medications Acetylcysteine (Acetylcysteine 20%) 4 ml IH [id number] [facility] Last Admin: 08/29/18 07:35 Dose: 4 ml Aspirin (Ecotrin) 81 mg PO DAILY [facility] Last Admin: 08/29/18 09:54 Dose: 81 mg Budesonide (Pulmicort Respules) 0.5 mg IH [id number] [facility] Last Admin: 08/29/18 07:35 Dose: 0.5 mg Clonidine HCl (Catapres Tts1 0.1 Mg/24 Hr) 1 patch TD Q7D@1000 [facility] Last Admin: 08/27/18 10:32 Dose: 1 patch Dextrose (Dextrose 50% Inj) 0 ml IV STAT PRN; Protocol PRN Reason: Hypoglycemia Protocol Diltiazem HCl (Cardizem Cd) 180 mg PO DAILY [facility] Last Admin: 08/29/18 09:54 Dose: 180 mg Dronabinol (Marinol) 2.5 mg PO TID [facility] Last Admin: 08/29/18 09:54 Dose: 2.5 mg Enoxaparin Sodium (Lovenox) 30 mg SC DAILY [facility]; Protocol Last Admin: 08/29/18 09:53 Dose: 30 mg Famotidine (Pepcid) 20 mg PO DAILY [facility] Last Admin: 08/29/18 09:55 Dose: 20 mg Furosemide (Lasix) 20 mg IV DAILY [facility] Last Admin: 08/29/18 09:53 Dose: 20 mg Dextrose (Dextrose 5% In Water 1000 Ml) 1,000 mls @ 0 mls/hr IV .Q0M PRN; Protocol PRN Reason: Hypoglycemia Protocol Daptomycin 500 mg/ Sodium (Chloride) 100 mls @ 200 mls/hr IV Q24H KD; Protocol Stop: 09/05/18 10:01 Last Admin: 08/29/18 11:23 Dose: 200 mls/hr Amino Acids/Electrolytes/Dextrose (Clinimix 5/20 % "E" (2000 Ml)) 2,000 mls @ 83 mls/hr IV .Q24H KD Stop: 08/30/18 17:59 Last Admin: 08/28/18 18:19 Dose: 83 mls/hr Micafungin Sodium 100 mg/ (Sodium Chloride) 100 mls @ 100 mls/hr IV DAILY KD; Protocol Stop: 09/01/18 10:01 Last Admin: 08/29/18 11:23 Dose: 100 mls/hr Dextrose (Dextrose 5% In Water 1000 Ml) 1,000 mls @ 83 mls/hr IV .Q12H3M KD Linezolid (Zyvox 600mg/300ml D5w) 600 mg in 300 mls @ 200 mls/hr IVPB Q12 [facility]; Protocol Stop: 09/05/18 22:01 Insulin Human Regular (Humulin R Low) 0 units SC ACHS [facility]; Protocol Last Admin: 08/29/18 09:55 Dose: Not Given Levalbuterol HCl (Xopenex) 0.63 mg IH [id number] [facility] Last Admin: 08/29/18 07:35 Dose: 0.63 mg Lidocaine (Lidoderm) 1 ea TD DAILY [facility] Last Admin: 08/29/18 09:53 Dose: 1 ea Metoprolol Tartrate (Lopressor) 50 mg PO BRKDIN [facility] Prednisone (Prednisone Tab) 10 mg PO DAILY [facility] Last Admin: 08/29/18 09:54 Dose: 10 mg - Labs Labs: 08/29/18 05:00 08/29/18 05:00 PT 14.8 SECONDS (9.4-12.5) H 08/29/18 05:00 INR 1.28 08/29/18 05:00 APTT 30.3 Seconds (25.1-36.5) 08/29/18 05:00 - Constitutional Appears: Cachectic, Chronically Ill - Head Exam Head Exam: NORMAL INSPECTION - Neck Exam Neck Exam: absent: Meningismus Additional comments: right IJ TLC in place - Respiratory Exam Respiratory Exam: Decreased Breath Sounds - Cardiovascular Exam Cardiovascular Exam: +S1, +S2 - GI/Abdominal Exam GI & Abdominal Exam: Soft. absent: Tenderness Assessment and Plan - Assessment and Plan (Free Text) Plan: Assessment sepsis S/P VDRF due to perforated ileum S/P ex-lap and resection of terminal ileum and primary anastomosis, growing VRE and C. tropicalis POD #19 S/P treatment for HCAP rectal cancer atrial fibrillation GERD anxiety disorder chronic CHF CAD Plan on Zyvox, Mycamine and will hold Merrem for now because of the increasing AST, ALT, T. bili (it is now trending down) and will continue to follow clinically - discussed with Dr. Du - will monitor platelet count - not able to get sensitivities of VRE to Daptomycin according to the lab (no reagent) will continue to trend WBC count, as well as monitor RUSSELL drain output and see how much the patient eats - patient still continues to be very ill discussed with Dr. Du - he will need to continue TPN 08/25 are negative; 08/18 is growing VRE as well as 08/10 cultures overall prognosis is guarded at best
[2018-08-30] MEDS: DAPTOmycin 500 MG in Sodium Chloride 0.9% 100 ML IV SCH (13:37)
[2018-08-30] MEDS ORDERED: diltiaZEM IVPB 100mg in NS 100 ML IV SCH (16:00)
--- NOTE | 2018-08-30 16:05 | RAD ---
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 OSSEOUS STRUCTURES: No significant abnormalities. VISUALIZED UPPER ABDOMEN: Normal. OTHER FINDINGS: None. IMPRESSION: Increasing bilateral infiltrates
--- NOTE | 2018-08-30 16:14 | PN ---
DATE: 08/30/2018 REASON FOR CONSULTATION AND FOLLOWUP: Cardiac evaluation, history of chronic atrial fibrillation, status post right hemicolectomy, status post perforation, fall risk, status post exploratory laparotomy. SUBJECTIVE: The patient feels better and getting IV PPN, antibiotic and p.o. food as well. Denies any chest pain, shortness of breath or any palpitations and feels better. This note is in addition to dictated by nurse practitioner Evangelina Mcarthur. Hemodynamically, the patient is stable. RECOMMENDATION: Continue nutritional support. Continue Cardizem CD 180 mg daily and continue metoprolol, p.r.n. diuretics. We will follow. The patient is off anticoagulation for atrial fibrillation because it starts bleeding. Now only for DVT prophylaxis. We will closely monitor. Thank you /Dr. Du for providing us the opportunity in taking care of patientAlexia. Gladis Greenfield MD
[2018-08-30 16:26] LABS: VENOUS BLOOD GAS BASE EXCESS 8.3 mmol/L (0.0-2.0); VENOUS BLOOD GAS PO2 34 mm/Hg (30-55); VENOUS BLOOD PH 7.44 (7.32-7.43)
--- NOTE | 2018-08-30 16:34 | PCM.RRT ---
NASCAR DRIVER Nurse Assessment - Situation Date: 08/30/18 Time NASCAR DRIVER was called: 15:24 NASCAR DRIVER Responder Arrival Time: 15:25 NASCAR DRIVER Location:: [address] [place] [address] Room Number: [id number] NASCAR DRIVER Reason for Call: Tachycardia, Change in Mental Status, Looks Sicker NASCAR DRIVER Called By: RN - IV IV Inserted during NASCAR DRIVER?: No - Respiratory Oxygen Delivery Method: BiPAP @% Received Nebulizer Treatments:: No Was the Patient Ventilated with Bag/Mask 100% O2?: No Secretions Suctioned?: No Was the Patient Intubated?: No Was the Patient Placed on a Ventilator?: No - Medication Medications Administered During NASCAR DRIVER: Cardizem 5mg IVP at 1545. Cardizem 5mg IVP 1552. Lasix 40mg IVP 1556 158/73. Cardizem 5mg IVP 1608 BP 156/79. Cardizem Drip 5mg 1613 BP 149/97. Cardizem drip increased to 10mg/hr 1620 BP 164/96 HR 114 - Diagnostic Test Ordered EKG: Yes Chest X-Ray: Yes - Stat Labs Ordered NASCAR DRIVER Stat Labs Ordered: CBC, TROPONIN, LACTIC ACID, BLOOD C&S X2 CPR started during NASCAR DRIVER?: No - Vital Signs Vital Sign: Rapid Response Vital Sign Blood Pressure 147/85 Pulse Rate 121 Respiratory Rate 26 Temperature 98.3 F Oxygen Saturation 96 - Finger Stick Blood Glucose Finger Stick Blood Glucose: 171 - Time NASCAR DRIVER Ended Time NASCAR DRIVER Ended: 16:23 - Vital Signs at end of NASCAR DRIVER Vital Signs at end of NASCAR DRIVER: Rapid Response End Vital Sign Blood Pressure 144/79 Pulse Rate 104 Respiratory Rate 19 Temperature 98.3 F O2 Sat by Pulse Oximetry 96 - Recommendations 5) NASCAR DRIVER Level of Care Recommendations: Remain in current setting Notifications: Attending Physician, Consultations, Family or Designated Caregiver I.Reason for NASCAR DRIVER - A) Acute Change in Patient: (Select all that apply): Staff member or family is worried about patient, Acute change in mental status, Acute change in respiratory rate less than 8 or greater than 28 - Neurological Status (Select all that apply): Alert, Responsive, Oriented, Verbal, Follows Commands, Lethargic - Respiratory Oxygen Delivery Method: BiPAP @% (30%) - Constitutional Appears: Well, Non-toxic, No Acute Distress, Cachectic - Head Head Exam: ATRAUMATIC, NORMAL INSPECTION, NORMOCEPHALIC - Eyes Eye Exam: EOMI, Normal appearance, PERRL - Respiratory Exam Respiratory Exam: Prolonged Expiratory Phase, Respiratory Distress (tachypnea ). absent: Rales, Rhonchi, Wheezes - Cardiovascular Exam Cardiovascular Exam: Tachycardia, Irregular Rhythm. absent: JVD Additional comments: RIJ TLC - GI/Abdominal Exam GI & Abdominal Exam: Soft. absent: Distended, Tenderness Additional comments: colostomy bag - Neurological Exam Neurological Exam: Alert, Awake, Oriented x3 - Extremities Exam Extremities Exam: Normal Inspection Plan - Assessment of Findings&Treatment Plan 82 year old male with a PMH of sepsis S/P VDRF due to perforated ileum S/P ex- lap and resection of terminal ileum and primary anastomosis, growing VRE and C. tropicalis POD #19, rectal cancer, chronic atrial fibrillation, chronic CHFpEF and CAD who was receiving blood products when he was noted to be short of breath and uncomfortable, so NASCAR DRIVER was called. NASCAR DRIVER team responded stat as did surgery team (primary on the case). The blood products were stopped. Surgery team contacted Dr. Du and notified him. CBC, VBG shock panel, troponin, blood cultures x2, transfusion rxn orderlist, CXR and EKG were ordered. Patient noted to be afebrile and in no respiratory distress. EKG noted patient to be in Afib w/ RVR. CXR did not fluid overload, as read by me. Cardizem 5mg x2 were given with minimal response. Lasix 40mg IVP x1 was given and patient was started on BiPAP (12/6, 14, 30%). Cardizem drip was then started at 5mg/h with minimal response so rate was increased to 10mg/h. BP was stable the whole time. Prior Echo, CXR and notes were reviewed. HR improved to 100's. Dr. Greenfield (cardio on roscoe indra), was contacted and recommended Verapimil 2.5mg IVP x1. Medicine datastage consultant was contacted but could not be reached at this time. Patient improving on cardizem drip and symptoms are improving. NASCAR DRIVER ended w/ improved BP, RR and HR. - stop blood product transfusion, and send to blood bank for w/u - continue telemetry monitoring - continue cardizem gtt - will administer Verapimil if HR doesn't improve - cont BiPAP - results of transfusion rxn orders are pending - will continue to monitor patient closely Amborcio Banerjee PGY2
[2018-08-30] MEDS: diltiaZEM IVPB 100mg in NS 100 ML IV SCH ×2 (16:39→22:48)
[2018-08-30 16:48] LABS: HEMOGLOBIN 11.4 g/dL (14.0-18.0); MEAN CELL VOLUME 92.3 fl (80.0-105.0); MEAN CORPUSCULAR HEMOGLOBIN 30.1 pg (25.0-35.0); RBC 3.79 10^6/uL (3.5-6.1); WHITE BLOOD COUNT 8.6 10^3/uL (4.5-11.0)
[2018-08-30 16:49] LABS: BASO % 0.1 % (0.0-3.0); GRAN # 7.39 (1.4-6.5); LYMPH # 0.6 (1.2-3.4); LYMPH % 6.9 % (22.0-35.0); MEAN CORPUSCULAR HGB CONC 32.6 g/dl (31.0-37.0); MEAN PLATELET VOLUME 9.7 fl (7.0-11.0); MONO # 0.6 (0.1-0.6); RED CELL DISTRIBUTION WIDTH 19.2 % (11.5-14.5)
[2018-08-30 16:50] LABS: BASO # 0.01 K/mm3 (0.0-2.0)
[2018-08-30 23:07] LABS: TROPONIN I 0.36 ng/mL
[2018-08-31] MEDS: Levalbuterol 0.63 MG/3 ML Inhal Soln UD IH SCH ×4 (03:31→20:17)
[2018-08-31] MEDS: Acetylcysteine 20% Inhal Soln (4ml) IH SCH ×4 (03:31→20:16)
[2018-08-31] MEDS: Insulin Reg-LOW-Coverage SC SCH ×5 (05:17→22:10)
--- NOTE | 2018-08-31 06:03 | CP.PCM.PN ---
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 Greenfield Objective - Vital Signs/Intake and Output Vital Signs (last 24 hours): Temp Pulse Resp BP Pulse Ox 98.5 F 102 H 18 147/85 94 L 08/31/18 00:01 08/31/18 00:01 08/30/18 18:00 08/31/18 00:01 08/30/18 05:45 Intake and Output: 08/30/18 08/31/18 18:59 06:59 Intake Total 1495 Output Total 375 Balance 1120 - Medications Medications: Current Medications Acetylcysteine (Acetylcysteine 20%) 4 ml IH [id number] [facility] Last Admin: 08/31/18 03:31 Dose: 4 ml Aspirin (Ecotrin) 81 mg PO DAILY [facility] Last Admin: 08/30/18 09:37 Dose: 81 mg Budesonide (Pulmicort Respules) 0.5 mg IH [id number] [facility] Last Admin: 08/30/18 20:03 Dose: 0.5 mg Clonidine HCl (Catapres Tts1 0.1 Mg/24 Hr) 1 patch TD Q7D@1000 [facility] Last Admin: 08/27/18 10:32 Dose: 1 patch Dextrose (Dextrose 50% Inj) 0 ml IV STAT PRN; Protocol PRN Reason: Hypoglycemia Protocol Diltiazem HCl (Cardizem Cd) 180 mg PO DAILY [facility] Last Admin: 08/30/18 09:38 Dose: 180 mg Dronabinol (Marinol) 2.5 mg PO TID [facility] Last Admin: 08/30/18 18:43 Dose: 2.5 mg Enoxaparin Sodium (Lovenox) 30 mg SC DAILY [facility]; Protocol Last Admin: 08/30/18 09:38 Dose: 30 mg Famotidine (Pepcid) 20 mg PO DAILY [facility] Last Admin: 08/30/18 09:38 Dose: 20 mg Dextrose (Dextrose 5% In Water 1000 Ml) 1,000 mls @ 0 mls/hr IV .Q0M PRN; Protocol PRN Reason: Hypoglycemia Protocol Linezolid (Zyvox 600mg/300ml D5w) 600 mg in 300 mls @ 200 mls/hr IVPB Q12 [facility]; Protocol Stop: 09/05/18 22:01 Last Admin: 08/30/18 22:01 Dose: 200 mls/hr Amino Acids/Electrolytes/Dextrose (Clinimix 5/20 % "E" (2000 Ml)) 2,000 mls @ 83 mls/hr IV .Q24H [facility] Stop: 09/03/18 18:01 Last Admin: 08/30/18 17:49 Dose: 83 mls/hr diltiaZEM IVPB 100mg in NS (Cardizem 100mg In Ns) 100 mls @ 10 mls/hr IV .Q10H [facility] Last Admin: 08/30/18 22:48 Dose: 10 mls/hr Insulin Human Regular (Humulin R Low) 0 units SC ACHS [facility]; Protocol Last Admin: 08/31/18 05:17 Dose: Not Given Levalbuterol HCl (Xopenex) 0.63 mg IH [id number] [facility] Last Admin: 08/31/18 03:31 Dose: 0.63 mg Lidocaine (Lidoderm) 1 ea TD DAILY [facility] Last Admin: 08/30/18 09:39 Dose: 1 ea Metoprolol Tartrate (Lopressor) 50 mg PO BRKDIN [facility] Last Admin: 08/30/18 18:41 Dose: 50 mg Prednisone (Prednisone Tab) 10 mg PO DAILY [facility] Last Admin: 08/30/18 09:39 Dose: 10 mg - Labs Labs: 08/30/18 16:15 08/30/18 06:20 PT 14.8 SECONDS (9.4-12.5) H 08/29/18 05:00 INR 1.28 08/29/18 05:00 APTT 30.3 Seconds (25.1-36.5) 08/29/18 05:00 - Constitutional Appears: Non-toxic, No Acute Distress - Head Exam Head Exam: NORMAL INSPECTION, NORMOCEPHALIC - Eye Exam Eye Exam: Normal appearance Pupil Exam: NORMAL ACCOMODATION - ENT Exam ENT Exam: Mucous Membranes Dry - Respiratory Exam Respiratory Exam: Decreased Breath Sounds, Rhonchi, NORMAL BREATHING PATTERN - Cardiovascular Exam Cardiovascular Exam: Irregular Rhythm, +S1, +S2 Additional comments: Telemetry atrial fibrillation 100's RIJ TLC - GI/Abdominal Exam GI & Abdominal Exam: Soft, Normal Bowel Sounds Additional comments: colostomy RUSSELL drain Abdominal dressing - Extremities Exam Extremities Exam: Full ROM - Neurological Exam Neurological Exam: Alert, Awake - Psychiatric Exam Psychiatric exam: Anxious Additional comments: restless - Skin Skin Exam: Dry, Normal Color, Warm Assessment and Plan - Assessment and Plan (Free Text) Assessment: A 82 year old male who came in to [facility] for elective right hemicolectomy yesterday. consult was called to follow up with history of chronic Atrial fibrillation (was on Eliquis). 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 Stabilized and now transferred to telemetry. Chronic atrial fibrillation but off anticoagulation due to bloody drainage to colostomy.On Lovenox.On contact isolation for VRE (wound/abdominal cavity fluid).Refusing to eat, Started on peripheral TPN, PICC dislodged, right IJ TLC inserted. TPN restarted. Post CASH REGISTER BALANCER yesterday for rapid afib/aflutter. Started on Cardizem drip, blood transfusion stopped after 1 hour of transfusion. Plan: Transfused 1 unit of PRBC but stopped after 1 hour of transfusion due to rapid heart rate. Post CASH REGISTER BALANCER yesterday for rapid Afib/Aflutter Cardizem drip started with controlled heart rate Continue Cardizem drip Troponin elevated, will managed medically Denies shortness of breath, anxious/restless Continue TPN , poor oral intake Blood pressure controlled On Clonidine patch every week,Cardizem 180 mg daily, Lovenox 60 mg every 12 hours. Lasix 20 mg daily,Lopressor 50mg BID, Prednisone 20 mg daily, On contact isolation for VRE (wound/abdominal cavity fluid) Physical therapy Chest X ray , bilateral increasing infiltrates Will start Rocephin 1 gram daily Continue current medications Continue current treatment Chart reviewed Will follow up Plan and treatment discussed with Dr. Greenfield
[2018-08-31 06:19] LABS: MEAN CELL VOLUME 92.2 fl (80.0-105.0); MEAN CORPUSCULAR HEMOGLOBIN 30.1 pg (25.0-35.0); MEAN CORPUSCULAR HGB CONC 32.7 g/dl (31.0-37.0); MEAN PLATELET VOLUME 9.8 fl (7.0-11.0); RBC 3.32 10^6/uL (3.5-6.1); RED CELL DISTRIBUTION WIDTH 19.4 % (11.5-14.5); WHITE BLOOD COUNT 7.3 10^3/uL (4.5-11.0)
--- NOTE | 2018-08-31 07:23 | CP.PCM.PN ---
<Ghulam Ruiz - Last Filed: 08/31/18 17:00> Subjective - Date & Time of Evaluation Date of Evaluation: 08/31/18 Time of Evaluation: 07:35 - Subjective Subjective: PGY-[address] Du Patient seen and examined at bedside. HAND SALTER called overnight for tachycardia/change in mental status while patient being transfused. Blood products discontinued. Troponins and BNP found to be elevated overnight. Patient administered cardizem ggt, lasix - tachycardia improved. Fabian drained about 125 cc serous drainage over 24 hours. Patient has no complaints this morning, denies any abdominal pain, nausea, vomiting, fevers, chills. Objective - Vital Signs/Intake and Output Vital Signs (last 24 hours): Temp Pulse Resp BP Pulse Ox 97.9 F 102 H 18 147/85 94 L 08/31/18 06:00 08/31/18 00:01 08/30/18 18:00 08/31/18 00:01 08/30/18 05:45 Intake and Output: 08/31/18 08/31/18 06:59 18:59 Intake Total 1446 Balance 1446 - Medications Medications: Current Medications Acetylcysteine (Acetylcysteine 20%) 4 ml IH [id number] [facility] Last Admin: 08/31/18 03:31 Dose: 4 ml Aspirin (Ecotrin) 81 mg PO DAILY [facility] Last Admin: 08/30/18 09:37 Dose: 81 mg Budesonide (Pulmicort Respules) 0.5 mg IH [id number] [facility] Last Admin: 08/30/18 20:03 Dose: 0.5 mg Clonidine HCl (Catapres Tts1 0.1 Mg/24 Hr) 1 patch TD Q7D@1000 [facility] Last Admin: 08/27/18 10:32 Dose: 1 patch Dextrose (Dextrose 50% Inj) 0 ml IV STAT PRN; Protocol PRN Reason: Hypoglycemia Protocol Dronabinol (Marinol) 2.5 mg PO TID [facility] Last Admin: 08/30/18 18:43 Dose: 2.5 mg Enoxaparin Sodium (Lovenox) 30 mg SC DAILY [facility]; Protocol Last Admin: 08/30/18 09:38 Dose: 30 mg Famotidine (Pepcid) 20 mg PO DAILY [facility] Last Admin: 08/30/18 09:38 Dose: 20 mg Dextrose (Dextrose 5% In Water 1000 Ml) 1,000 mls @ 0 mls/hr IV .Q0M PRN; Protocol PRN Reason: Hypoglycemia Protocol Linezolid (Zyvox 600mg/300ml D5w) 600 mg in 300 mls @ 200 mls/hr IVPB Q12 [facility]; Protocol Stop: 09/05/18 22:01 Last Admin: 08/30/18 22:01 Dose: 200 mls/hr Amino Acids/Electrolytes/Dextrose (Clinimix 5/20 % "E" (2000 Ml)) 2,000 mls @ 83 mls/hr IV .Q24H [facility] Stop: 09/03/18 18:01 Last Admin: 08/30/18 17:49 Dose: 83 mls/hr diltiaZEM IVPB 100mg in NS (Cardizem 100mg In Ns) 100 mls @ 10 mls/hr IV .Q10H [facility] Last Admin: 08/30/18 22:48 Dose: 10 mls/hr Insulin Human Regular (Humulin R Low) 0 units SC ACHS [facility]; Protocol Last Admin: 08/31/18 05:17 Dose: Not Given Levalbuterol HCl (Xopenex) 0.63 mg IH [id number] [facility] Last Admin: 08/31/18 03:31 Dose: 0.63 mg Lidocaine (Lidoderm) 1 ea TD DAILY [facility] Last Admin: 08/30/18 09:39 Dose: 1 ea Metoprolol Tartrate (Lopressor) 50 mg PO BRKDIN [facility] Last Admin: 08/30/18 18:41 Dose: 50 mg Prednisone (Prednisone Tab) 10 mg PO DAILY [facility] Last Admin: 08/30/18 09:39 Dose: 10 mg - Labs Labs: 08/31/18 06:00 08/30/18 06:20 PT 14.8 SECONDS (9.4-12.5) H 08/29/18 05:00 INR 1.28 08/29/18 05:00 APTT 30.3 Seconds (25.1-36.5) 08/29/18 05:00 - Constitutional Appears: Non-toxic, Chronically Ill - Head Exam Head Exam: ATRAUMATIC, NORMOCEPHALIC - Eye Exam Eye Exam: EOMI, PERRL - ENT Exam ENT Exam: Mucous Membranes Moist - Respiratory Exam Respiratory Exam: Clear to Ausculation Bilateral. absent: Accessory Muscle Use, Rhonchi, Wheezes - Cardiovascular Exam Cardiovascular Exam: +S1, +S2. absent: Murmur - GI/Abdominal Exam GI & Abdominal Exam: Soft. absent: Distended, Guarding, Tenderness, Rebound Additional comments: stoma pink and patent ostomy with minimal stool present. dressings clear, dry, intact fabian with minimal serous drainage. - Extremities Exam Extremities Exam: absent: Pedal Edema, Tenderness - Neurological Exam Neurological Exam: Alert, Awake, Oriented x3. absent: Altered Additional comments: Patient is alert and oriented x3. - Psychiatric Exam Psychiatric exam: Normal Affect, Normal Mood - Skin Skin Exam: Dry, Intact, Normal Color, Warm Assessment and Plan - Assessment and Plan (Free Text) Assessment: 82M s/p ex-lap and ileal perforation repair w/ VRE+ peritonitis - Titrate cardizem per cardiology - F/u CT head - cont TPN, HHD, PO supplements - encourage PO intake - cont Marinol - Monitor ostomy and fabian output - Replete electrolytes PRN - daily labs - Cultures repeated 08/28- drain Cx, UCx, BCx - f/u results - F/u VRE screen - Merrem held due to increasing AST/ALT, T bili per ID - cont aggressive PT - encourage OOB to chair/Amb/IS use Pt discussed w/ Dr. Florian Ruiz, PGY-1 <Rocael Du - Last Filed: 08/31/18 21:37> Objective - Vital Signs/Intake and Output Vital Signs (last 24 hours): Temp Pulse Resp BP Pulse Ox 98.3 F 94 H 18 112/64 98 08/31/18 17:32 08/31/18 18:17 08/31/18 17:32 08/31/18 18:17 08/31/18 00:00 Intake and Output: 08/31/18 09/01/18 18:59 06:59 Intake Total 2329 Balance 2329 - Medications Medications: Current Medications Acetylcysteine (Acetylcysteine 20%) 4 ml IH [id number] [facility] Last Admin: 08/31/18 20:16 Dose: 4 ml Aspirin (Ecotrin) 81 mg PO DAILY [facility] Last Admin: 08/31/18 12:15 Dose: 81 mg Budesonide (Pulmicort Respules) 0.5 mg IH [id number] [facility] Last Admin: 08/31/18 20:16 Dose: 0.5 mg Clonidine HCl (Catapres Tts1 0.1 Mg/24 Hr) 1 patch TD Q7D@1000 [facility] Last Admin: 08/27/18 10:32 Dose: 1 patch Dextrose (Dextrose 50% Inj) 0 ml IV STAT PRN; Protocol PRN Reason: Hypoglycemia Protocol Dronabinol (Marinol) 2.5 mg PO TID [facility] Last Admin: 08/31/18 18:14 Dose: 2.5 mg Enoxaparin Sodium (Lovenox) 30 mg SC DAILY [facility]; Protocol Last Admin: 08/31/18 12:16 Dose: 30 mg Famotidine (Pepcid) 20 mg PO DAILY [facility] Last Admin: 08/31/18 12:15 Dose: 20 mg Dextrose (Dextrose 5% In Water 1000 Ml) 1,000 mls @ 0 mls/hr IV .Q0M PRN; Protocol PRN Reason: Hypoglycemia Protocol Linezolid (Zyvox 600mg/300ml D5w) 600 mg in 300 mls @ 200 mls/hr IVPB Q12 [facility]; Protocol Stop: 09/05/18 22:01 Last Admin: 08/31/18 12:15 Dose: 200 mls/hr Amino Acids/Electrolytes/Dextrose (Clinimix 5/20 % "E" (2000 Ml)) 2,000 mls @ 83 mls/hr IV .Q24H [facility] Stop: 09/03/18 18:01 Last Admin: 08/30/18 17:49 Dose: 83 mls/hr diltiaZEM IVPB 100mg in NS (Cardizem 100mg In Ns) 100 mls @ 10 mls/hr IV .Q10H [facility] Last Admin: 08/31/18 12:21 Dose: 10 mls/hr Ceftriaxone Sodium (Rocephin 1 Gram Ivpb) 1 gm in 100 mls @ 100 mls/hr IVPB DAILY [facility]; Protocol Last Admin: 08/31/18 18:14 Dose: 100 mls/hr Insulin Human Regular (Humulin R Low) 0 units SC ACHS [facility]; Protocol Last Admin: 08/31/18 18:17 Dose: 4 units Levalbuterol HCl (Xopenex) 0.63 mg IH [id number] [facility] Last Admin: 08/31/18 20:17 Dose: 0.63 mg Lidocaine (Lidoderm) 1 ea TD DAILY [facility] Last Admin: 08/31/18 12:17 Dose: Not Given Metoprolol Tartrate (Lopressor) 50 mg PO BRKDIN [facility] Last Admin: 08/31/18 18:17 Dose: 50 mg Prednisone (Prednisone Tab) 10 mg PO DAILY [facility] Last Admin: 08/31/18 12:15 Dose: 10 mg Verapamil HCl (Verapamil Inj) 2.5 mg IVP Q6H PRN PRN Reason: for heart rate >130 - Labs Labs: 08/31/18 06:00 08/31/18 07:15 PT 14.8 SECONDS (9.4-12.5) H 08/29/18 05:00 INR 1.28 08/29/18 05:00 APTT 30.3 Seconds (25.1-36.5) 08/29/18 05:00 Assessment and Plan - Assessment and Plan (Free Text) Plan: Dx CHF/Myocardial Ischemic event/Mark Pneumonitis Recent Fabian drainage Neg VRE PO intake very poor-ON TPN 2000/day PT limited due to marasmus-weakness and VFE limiting room only til VRE NEG X3 LTAC will be needed when VRE NEG X 3(Pt/family concur) Needs very aggressive Nasotracheal suctioning/Diuresis(fluid overload) Kiko Du MD FACS
[2018-08-31 07:40] LABS: ALB/GLOB RATIO 0.9 (1.1-1.8); ALBUMIN 2.3 g/dL (3.0-4.8); ALT/SGPT 88 U/L (7-56); AST/SGOT 50 U/L (17-59); BLOOD UREA NITROGEN 54 mg/dL (7-21); CALCIUM 7.8 mg/dL (8.4-10.5); GFR NON-AFRICAN AMERICAN > 60
[2018-08-31 07:43] LABS: B-TYPE NATRIURETIC PEPTIDE 11000 pg/mL (0-450)
--- NOTE | 2018-08-31 07:59 | PN ---
DATE: 08/31/2018 PULMONARY NOTE SUBJECTIVE: The patient appears mildly short of breath this morning. He is in no acute distress. He again appears very weak. PHYSICAL EXAMINATION: VITAL SIGNS: Temperature is 97.9, pulse on the monitor is 102, respiratory rate 20-22, blood pressure 147/85. Oxygen saturation on nasal cannula is 95%. HEENT: Normocephalic, atraumatic. No JVD. CARDIOVASCULAR: Systolic ejection murmur at the lower left sternal border. Questionable S3 gallop. LUNGS: Decreased breath sounds at the bases (improved overall). Increased rhonchi this morning. No wheezing. EXTREMITIES: Mild edema. No cyanosis, no clubbing. Calves are nontender to palpation. GASTROINTESTINAL: Abdomen is soft, nontender, and nondistended. Abdomen is postoperative. SKIN: No acute rash. NEUROLOGIC: Limited at the present time. PERTINENT LABORATORY DATA: Chest x-ray was done yesterday and reviewed. There is a mild increase in the bilateral pulmonary infiltrates - consistent with volume overload. IMPRESSION: 1. Congestive heart failure/volume overload. 2. Cardiac arrhythmias/atrial fibrillation. 3. Intra-abdominal perforation. 4. Status post right hemicolectomy. 5. Recurrent left lung atelectasis. 6. Chronic obstructive pulmonary disease. 7. Anemia, thrombocytopenia. PLAN: The patient appears mildly short of breath this morning. He is in no acute distress. He is awake and alert. He remains very, very weak appearing. I did discuss the case with the night nurse at length. Apparently, while getting transfused yesterday, the patient experienced increasing shortness of breath. There was also rapid atrial fibrillation seen on the monitor. Fluids were then stopped. The patient was given Lasix. As per the night nurse, the patient is clinically improved this morning - compared to yesterday. I did review the chest x-ray as above. The chest x-ray is consistent with volume overload. Again, the patient was given Lasix. I have also ordered a B-type nature peptide to be done this morning. Cardiology is aware of the current situation. The patient is now on a Cardizem drip. On physical exam, there is increased bronchospasm this morning. There is no significant alveolar-arterial gradient. I will continue the current low dose steroids, nebulizer treatments and pulmonary toilet for now. I did discuss the case with the respiratory therapists. They did inform me that the patient does refuse suctioning and some of his nebulizer treatments. I did talk to the patient about this issue, this morning.. The patient remains on antibiotic therapy. Temperatures have resolved. The leukocytosis has resolved. Clinical status of the patient is certainly improved - compared to the initial presentation. However, again, the overall status/prognosis for this patient remains very guarded. I will discuss the above with the attending physician. Rosalio Blevins MD MTDD
[2018-08-31] MEDS: Budesonide 0.5 mg/2 ml Inhal Susp UD IH SCH ×2 (08:11→20:16)
--- NOTE | 2018-08-31 09:32 | CARD ---
APPROVED REPORT Date of service: 08/30/2018 EKG Measurement Heart [id number] <Conclusion> Atrial fibrillation with rapid ventricular response with premature ventricular or aberrantly conducted complexes Rightward axis PRWP Minimal voltage criteria for LVH ST & T wave abnormality c/w ischemia
--- NOTE | 2018-08-31 10:39 | PN ---
DATE: 08/31/2018 SUBJECTIVE: The patient was examined on the morning of 08/31/2018. This 82-year-old male was examined at the bedside on the cardiac unit at the [facility] on the morning of 08/31/2018. Present at the bedside was nurse, Rio, from the IV access team placing a midline IV access in his left forearm. This case was also reviewed in detail with nurse, Jackie Luna, registered nurse. The patient is status post a rapid response last night for tachycardia which was responsive to IV Cardizem infusion. A chest x-ray was performed and reviewed and it shows increasing bilateral infiltrates and a small left effusion. He was noted to have mild cardiomegaly and no evidence of pulmonary vascular congestion. At present, the patient is altered in his mental status, but there were no reports of fever or chills. PHYSICAL EXAMINATION: VITAL SIGNS: He is in atrial fibrillation on the monitor with a temperature of 97.9, respirations 16, pulse 102 and blood pressure 147/85 with a pulse ox of 98%. HEENT: Head: Normocephalic, atraumatic. Eyes: No icterus. NECK: Supple. HEART: Irregular S1, S2. LUNGS: Rhonchi bilaterally. ABDOMEN: Soft. Josué-Murdock is draining a clear yellow fluid approximately 50 mL in the past 8 hours according to nursing. Colostomy is functioning. EXTREMITIES: No edema. SKIN: Without rash. NEUROLOGICAL: Metabolic encephalopathy. VASCULAR: Legs warm to touch. LABORATORY DATA: White count 7300, hemoglobin 10, hematocrit 30.6, platelets 121,000. Sodium 135, K 4.5, chloride 99, bicarb 31, BUN 54, creatinine 0.6, random blood sugar 221, calcium 7.8. Phosphorous 4.4, magnesium 2.1, bilirubin 5.1, AST 50, ALT 88, alk phos 92. BNP 11,000. Troponin 0.36. IMPRESSION: An 82-year-old male status post rapid response secondary to rapid atrial fibrillation and multiple comorbidities including atherosclerotic heart disease, chronic stable systolic congestive heart failure, chronic obstructive pulmonary disease, status post respiratory failure and intubation x2 postoperatively for mucus plugging, status post right hemicolectomy, status post exploratory laparotomy for perforated ileum with postoperative wound cultures growing vancomycin-resistant Enterococcus and Reshma tropicalis, acute renal failure improved, prerenal azotemia in the setting of steroids and systolic congestive heart failure, also with insulin-dependent diabetes mellitus, hypertension, failure to thrive, poor p.o. intake and anemia of chronic disease and thrombocytopenia. At present, patient continues on p.r.n. verapamil, IV Rocephin, Pulmicort, prednisone, Pepcid, Lovenox, Lopressor, Lidoderm, insulin coverage, Ecotrin, Clinimix, clonidine, Cardizem and Mucomyst inhalational therapy. He is scheduled to have continuous positive airway pressure, BiPAP, serial labs. He remains on aspiration precautions and isolation. Overall, prognosis remains poor. Sara Ramirez MD MTDD
--- NOTE | 2018-08-31 11:30 | RAD ---
Date of service: 08/31/2018 HISTORY: CONFIRM PLACEMENT OF NEW LEFT SIDED PICC COMPARISON: 08/30/2018 FINDINGS: LUNGS: Increasing bilateral infiltrates. The left-sided PICC line is in satisfactory position at the junction of the SVC and right atrium PLEURA: No significant pleural effusion identified, no pneumothorax apparent. CARDIOVASCULAR: Aortic calcifications Moderate cardiomegaly vascular congestion OSSEOUS STRUCTURES: No significant abnormalities. VISUALIZED UPPER ABDOMEN: Normal. OTHER FINDINGS: None. IMPRESSION: Increasing bilateral infiltrates. The left-sided PICC line is in satisfactory position at the junction of the SVC and right atrium
[2018-08-31] MEDS: Linezolid 600 mg in D5W 300 ml 600 MG/300 ML BAG IVPB SCH ×2 (12:15→22:04)
[2018-08-31] MEDS: Enoxaparin 30 mg Syringe SC SCH (12:16)
[2018-08-31] MEDS: Lidocaine 5% Patch TD SCH (12:17)
[2018-08-31] MEDS: diltiaZEM IVPB 100mg in NS 100 ML IV SCH ×2 (12:21→21:55)
--- NOTE | 2018-08-31 12:45 | CP.PCM.PCO ---
Physician Communication Note - Physician Communication Note Physician Communication Note: CHF/Myoc Ischemia/Cardizem drip/Drain - C/S Neg
--- NOTE | 2018-08-31 13:54 | PN ---
DATE: 08/31/2018 SUBJECTIVE: The patient is 82 years old, seen and examined. Yesterday's events noted. The patient was found to be confused, tachycardic. He was started on BiPAP. He was also started on a Cardizem drip. White count seems to be stable, however, platelet is higher than before because of the steroids. He was found to have positive troponin and BNP of 11,000. PHYSICAL EXAMINATION GENERAL: This morning, sleepy but arousable, has generalized weakness. VITAL SIGNS: He is afebrile, pulse 102, respirations 16, blood pressure 147/85. LUNGS: Bilateral fair airflow, decreased at bases. HEART: S1, S2 audible. Regular, rate controlled. ABDOMEN: Soft. Colostomy functional and the drain has a straw-colored yellowish liquid fluid. EXTREMITIES: Bilateral legs, no edema. LABORATORY DATA: WBC 7.3, hemoglobin 10, hematocrit 30, platelet 121,000. Chemistry; sodium 135, potassium 4.5, chloride 99, CO2 of 31, BUN 54, creatinine 0.6, blood sugar 202. Troponin, first 0.37, followup is 0.36. DIAGNOSTIC DATA: X-ray of chest was done that showed bilateral infiltrate and had a left-sided PICC line in position. EKG shows AFib with rapid ventricular response. ASSESSMENT: 1. Status post laparotomy. 2. Right hemicolectomy. 3. Ileal resection. 4. History of colostomy in the past. 5. Atrial fibrillation. 6. Bilateral infiltrate. 7. Thrombocytopenia. 8. Vancomycin-resistant Enterococcus wound infection. PLAN: So, currently, the patient is on a Cardizem drip. He is on TPN. He is on aspirin. He is on metoprolol. DVT prophylaxis. He was started on Rocephin and he remains on IV Zyvox. I spoke to the patient's daughter. They are worried about his poor oral intake. His situation was explained at great length. We will continue to monitor his electrolytes and his hemodynamic status. Tri Fleming MD [facility] # [id number]
--- NOTE | 2018-08-31 14:47 | PN ---
DATE: 08/13/2018 REASON FOR CONSULTATION AND FOLLOWUP: Status post rapid response AFib with rapid rate even noted since patient was seen yesterday. Chart reviewed and discussed with our nurse practitioner, Evangelina Mcarthur. This note is in addition to dictated by our nurse practitioner, Evangelina Mcarthur. In summary, the patient had rapid response pauses, some kind of reaction started shaking after having the blood and AFib with rapid rate, verapamil given and rate is controlled. The patient is currently now on Cardizem drip. Blood pressure is around 140 and heart rate is in the 90 to 100, comfortable and lying flat, but feels tired. RECOMMENDATION: Hold p.o. meds, continue IV Cardizem 10 mg an hour, monitor heart rate and increasing nutritional support and monitor electrolytes. Yesterday hemoglobin was 9, one liter of blood was given and was 11.4 and today is 10. Chemistries is within normal limit. We will follow with you. BNP elevated to 11,000. We will give a dose of Lasix. Chest x-ray also consistent with possible infiltrate, so we will wait for ID people and in the interim we will given one dose of Rocephin and give one dose of Lasix as well. The patient is already on linezolid for VRE. We will give Lasix p.r.n. and evaluate as conditions allows, keep the patient his oxygenation. We will put verapamil IV p.r.n. for heart rate more than 130. Thank you Dr. Du for providing us the opportunity in taking care of patientAlexia. Gladis Greenfield MD
[2018-08-31] MEDS: cefTRIAXone 1 gm 1 GM/100 ML BAG IVPB SCH (18:14)
--- NOTE | 2018-08-31 19:10 | PN ---
DATE: 08/31/2018 SUBJECTIVE: The patient is in bed in no acute distress, nontoxic. PHYSICAL EXAMINATION: VITAL SIGNS: Temperature is 98, blood pressure is 112/60, respiratory rate 18, heart rate of 94. HEENT: Unremarkable. NECK: Supple. LUNGS: Decreased breath sounds. HEART: Normal S1, S2. ABDOMEN: Soft. LABORATORY DATA: Reveals a white count of 7.3, hemoglobin of 10, BUN of 54, creatinine of 0.6. Urinalysis is noted. Microbiology was noted. 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 Currently, the patient is on the Zyvox, prednisone, he was on Mycamine. Dr. Du communication report is noted. Overall prognosis for this patient who is chronically ill, debilitated, appears much older than his stated age is quite poor. Jason Garvin MD
[2018-09-01] MEDS: Levalbuterol 0.63 MG/3 ML Inhal Soln UD IH SCH ×4 (02:10→20:26)
[2018-09-01] MEDS: Acetylcysteine 20% Inhal Soln (4ml) IH SCH ×2 (02:10→07:36)
--- NOTE | 2018-09-01 06:58 | CP.PCM.PN ---
Subjective - Date & Time of Evaluation Date of Evaluation: 09/01/18 Time of Evaluation: 06:40 - Subjective Subjective: Awake, alert, no distress Reason for consultation and follow up:Cardiac evaluation of chronic atrial fibrillation, status post right hemicolectomy, status post perforation with hollow viscus, status post explor lap, Seen and examined by me and Dr. Greenfield Objective - Vital Signs/Intake and Output Vital Signs (last 24 hours): Temp Pulse Resp BP Pulse Ox 98 F 89 19 121/68 91 L 09/01/18 00:01 09/01/18 02:00 09/01/18 00:01 09/01/18 00:01 09/01/18 00:01 Intake and Output: 08/31/18 09/01/18 18:59 06:59 Intake Total 2329 1272 Output Total 100 Balance 2329 1172 - Medications Medications: Current Medications Acetylcysteine (Acetylcysteine 20%) 4 ml IH [id number] [facility] Last Admin: 09/01/18 02:10 Dose: 4 ml Aspirin (Ecotrin) 81 mg PO DAILY [facility] Last Admin: 08/31/18 12:15 Dose: 81 mg Budesonide (Pulmicort Respules) 0.5 mg IH [id number] [facility] Last Admin: 08/31/18 20:16 Dose: 0.5 mg Clonidine HCl (Catapres Tts1 0.1 Mg/24 Hr) 1 patch TD Q7D@1000 KD Last Admin: 08/27/18 10:32 Dose: 1 patch Dextrose (Dextrose 50% Inj) 0 ml IV STAT PRN; Protocol PRN Reason: Hypoglycemia Protocol Dronabinol (Marinol) 2.5 mg PO TID [facility] Last Admin: 08/31/18 18:14 Dose: 2.5 mg Enoxaparin Sodium (Lovenox) 30 mg SC DAILY [facility]; Protocol Last Admin: 08/31/18 12:16 Dose: 30 mg Famotidine (Pepcid) 20 mg PO DAILY [facility] Last Admin: 08/31/18 12:15 Dose: 20 mg Dextrose (Dextrose 5% In Water 1000 Ml) 1,000 mls @ 0 mls/hr IV .Q0M PRN; Protocol PRN Reason: Hypoglycemia Protocol Linezolid (Zyvox 600mg/300ml D5w) 600 mg in 300 mls @ 200 mls/hr IVPB Q12 KD; Protocol Stop: 09/05/18 22:01 Last Admin: 08/31/18 22:04 Dose: 200 mls/hr Amino Acids/Electrolytes/Dextrose (Clinimix 5/20 % "E" (2000 Ml)) 2,000 mls @ 83 mls/hr IV .Q24H KD Stop: 09/03/18 18:01 Last Admin: 08/31/18 20:00 Dose: 83 mls/hr diltiaZEM IVPB 100mg in NS (Cardizem 100mg In Ns) 100 mls @ 10 mls/hr IV .Q10H KD Last Admin: 08/31/18 21:55 Dose: 10 mls/hr Ceftriaxone Sodium (Rocephin 1 Gram Ivpb) 1 gm in 100 mls @ 100 mls/hr IVPB DAILY [facility]; Protocol Last Admin: 08/31/18 18:14 Dose: 100 mls/hr Insulin Human Regular (Humulin R Low) 0 units SC ACHS [facility]; Protocol Last Admin: 08/31/18 22:10 Dose: Not Given Levalbuterol HCl (Xopenex) 0.63 mg IH [id number] [facility] Last Admin: 09/01/18 02:10 Dose: 0.63 mg Lidocaine (Lidoderm) 1 ea TD DAILY [facility] Last Admin: 08/31/18 12:17 Dose: Not Given Metoprolol Tartrate (Lopressor) 50 mg PO BRKDIN [facility] Last Admin: 08/31/18 18:17 Dose: 50 mg Prednisone (Prednisone Tab) 10 mg PO DAILY [facility] Last Admin: 08/31/18 12:15 Dose: 10 mg Verapamil HCl (Verapamil Inj) 2.5 mg IVP Q6H PRN PRN Reason: for heart rate >130 - Labs Labs: 08/31/18 06:00 08/31/18 07:15 PT 14.8 SECONDS (9.4-12.5) H 08/29/18 05:00 INR 1.28 08/29/18 05:00 APTT 30.3 Seconds (25.1-36.5) 08/29/18 05:00 - Constitutional Appears: Non-toxic, No Acute Distress - Head Exam Head Exam: NORMAL INSPECTION, NORMOCEPHALIC - Eye Exam Eye Exam: Normal appearance Pupil Exam: NORMAL ACCOMODATION - ENT Exam ENT Exam: Mucous Membranes Dry - Respiratory Exam Respiratory Exam: Decreased Breath Sounds, NORMAL BREATHING PATTERN - Cardiovascular Exam Cardiovascular Exam: Irregular Rhythm, +S1, +S2 Additional comments: Telemetry atrial fibrillation Right IJ Triple lumen cathetr - GI/Abdominal Exam GI & Abdominal Exam: Soft, Normal Bowel Sounds Additional comments: colostomy RUSSELL drain abdominal dressing - Extremities Exam Extremities Exam: Full ROM - Neurological Exam Neurological Exam: Alert, Awake - Psychiatric Exam Psychiatric exam: Normal Affect, Normal Mood - Skin Skin Exam: Dry, Normal Color, Warm Assessment and Plan - Assessment and Plan (Free Text) Assessment: A 82 year old male who came in to [facility] for elective right hemicolectomy yesterday. consult was called to follow up with history of chronic Atrial fibrillation (was on Eliquis). 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 Stabilized and now transferred to telemetry. Chronic atrial fibrillation but off anticoagulation due to bloody drainage to colostomy.On Lovenox.On contact isolation for VRE (wound/abdominal cavity fluid).Refusing to eat, Started on peripheral TPN, PICC dislodged, right IJ TLC inserted. TPN restarted. Post [employer] yesterday for rapid afib/aflutter. Started on Cardizem drip, blood transfusion of 1 unit PRBC.Troponin elevated, will managed medically. Plan: Denies shortness of breath, comfortable,no distress Heart rate controlled Atrial fib 80's Will discontinue Cardizem drip and switch to oral Cardizem Continue TPN , poor oral intake Blood pressure controlled On Clonidine patch every week,Cardizem 180 mg daily, Lovenox 60 mg every 12 hours. Lasix 20 mg daily,Lopressor 50mg BID, Prednisone 20 mg daily, On contact isolation for VRE (wound/abdominal cavity fluid) Continue antibiotics per ID H/H stable Physical therapy Continue Rocephin for bilateral increasing infiltrates Continue current medications Continue current treatment Chart reviewed Will follow up Plan and treatment discussed with Dr. Greenfield
[2018-09-01 07:08] LABS: HEMOGLOBIN 8.5 g/dL (14.0-18.0); MEAN CELL VOLUME 94.3 fl (80.0-105.0); MEAN CORPUSCULAR HEMOGLOBIN 30.4 pg (25.0-35.0); MEAN CORPUSCULAR HGB CONC 32.2 g/dl (31.0-37.0); MEAN PLATELET VOLUME 9.3 fl (7.0-11.0); RBC 2.8 10^6/uL (3.5-6.1); RED CELL DISTRIBUTION WIDTH 19.7 % (11.5-14.5); WHITE BLOOD COUNT 5.5 10^3/uL (4.5-11.0)
[2018-09-01] MEDS: diltiaZEM IVPB 100mg in NS 100 ML IV SCH (07:15)
[2018-09-01 07:26] LABS: IRON 30 ug/dL (45-180)
[2018-09-01 07:27] LABS: B-TYPE NATRIURETIC PEPTIDE 8570 pg/mL (0-450)
[2018-09-01 07:35] LABS: % IRON SATURATION 15 % (20-55); TOTAL IRON BINDING CAPACITY 200 ug/dL (261-462)
[2018-09-01] MEDS: Budesonide 0.5 mg/2 ml Inhal Susp UD IH SCH ×2 (07:36→20:26)
[2018-09-01 07:50] LABS: ALB/GLOB RATIO 0.9 (1.1-1.8); ALT/SGPT 74 U/L (7-56); AST/SGOT 31 U/L (17-59); BLOOD UREA NITROGEN 54 mg/dL (7-21); CALCIUM 7.8 mg/dL (8.4-10.5); GFR NON-AFRICAN AMERICAN > 60
--- NOTE | 2018-09-01 07:51 | PN ---
DATE: 09/01/2018 SUBJECTIVE: The patient appears comfortable this morning. He is not short of breath at rest. He remains very ,very weak appearing. OBJECTIVE: VITAL SIGNS: Temperature is 98.0, pulse on the monitor is 94, respiratory rate 18, blood pressure 121/68. Oxygen saturation on nasal cannula is 91-97%. HEENT: Normocephalic, atraumatic. No JVD. CARDIOVASCULAR: Systolic ejection murmur at the lower left sternal border. Questionable S3 gallop. LUNGS: Decreased breath sounds at the bases. Much less rhonchi. No wheezing. EXTREMITIES: Mild edema. No cyanosis, no clubbing. Calves are nontender to palpation. GI: Abdomen is soft, nontender and nondistended. Bowel sounds are positive. Abdomen is postoperative. SKIN: No acute rash. NEUROLOGIC: Limited at the present time. IMPRESSION: 1. Congestive heart failure/volume overload. 2. Atrial fibrillation. 3. Intra-abdominal perforation. 4. Status post right hemicolectomy. 5. Recurrent left lung atelectasis. 6. Chronic obstructive pulmonary disease. 7. Anemia, thrombocytopenia. PLAN: The patient appears much more comfortable this morning. He is not short of breath at rest. He remains very, very weak appearing. I did discuss the case with the night nurse at length. The night nurse stated that the patient had a good night. On physical exam, there is much less bronchospasm noted today. In addition, there is no significant alveolar-arterial gradient. I will continue the current nebulizer treatments and low-dose oral steroids for now. I will also continue with the pulmonary toileting. Again, the patient does refuse some of his nebulizer treatments and suctioning. I discussed this issue with him again this morning. The patient remains on a Cardizem drip. Input by Cardiology is noted. Inputs by Infectious Disease and Surgery are also noted. There are no fevers. There is no leukocytosis. Clinical status of the patient is significantly improved - compared to last week. However, again, the future status/prognosis for this patient remains very guarded. I will discuss the above with Dr. Du. Rosalio Blevins MD [facility] # [id number] [place]
--- NOTE | 2018-09-01 08:15 | PN ---
DATE: 09/01/2018 SUBJECTIVE: The patient is in bed, in no acute distress, was seen earlier this morning. No fevers and no chills. PHYSICAL EXAMINATION: VITAL SIGNS: On exam, temperature of 98, blood pressure is 121/60, respiratory rate of 18. HEENT: Examination of HEENT is unremarkable. NECK: Supple. LUNGS: Have decreased breath sounds. HEART: Normal S1, S2. ABDOMEN: Soft, nontender. LABORATORY DATA: Laboratory examination reveals a white count of 5.5, hemoglobin of 8. Chemistries are noted. The patient's creatinine is 0.6. Today's creatinine is pending. Urinalysis is noted. Toxicology is noted. Hepatitis C is negative. Hepatitis profile is negative. Microbiology reveals the patient did have VRE and Reshma tropicalis. Evangelina Macrthur's notes from this morning is reviewed. 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 We will follow closely with you. Dr. Du communication report is reviewed. We will discontinue the Zyvox at this time because of the low platelets. Repeat cultures negative. The patient is at risk for developing nosocomial infections. The patient is afebrile, normal white count. Overall [employer] prognosis is quite poor. Jason Garvin MD
--- NOTE | 2018-09-01 09:18 | CT ---
Date of service: 09/01/2018 PROCEDURE: CT HEAD WITHOUT CONTRAST. HISTORY: New onset tremors COMPARISON: None available. TECHNIQUE: Axial computed tomography images were obtained through the head/brain without intravenous contrast. Radiation dose: Total exam DLP = 1850 mGy-cm. This CT exam was performed using one or more of the following dose reduction techniques: Automated exposure control, adjustment of the mA and/or kV according to patient size, and/or use of iterative reconstruction technique. FINDINGS: HEMORRHAGE: No intracranial hemorrhage. BRAIN: No mass effect or edema. Chronic microvascular disease and moderate atrophy. No acute findings VENTRICLES: Unremarkable. No hydrocephalus. CALVARIUM: Unremarkable. PARANASAL SINUSES: Unremarkable as visualized. No significant inflammatory changes. MASTOID AIR CELLS: Unremarkable as visualized. No inflammatory changes. OTHER FINDINGS: None. IMPRESSION: No acute intracranial findings
[2018-09-01] MEDS: Insulin Reg-LOW-Coverage SC SCH ×4 (09:19→22:17)
[2018-09-01] MEDS: Enoxaparin 30 mg Syringe SC SCH (09:25)
[2018-09-01] MEDS: cefTRIAXone 1 gm 1 GM/100 ML BAG IVPB SCH (09:26)
[2018-09-01] MEDS ORDERED: Albumin Human 25% (12.5 gm/50 ml) IV ONE ×2 (09:31→10:30)
[2018-09-01] MEDS: Lidocaine 5% Patch TD SCH (09:45)
--- NOTE | 2018-09-01 09:45 | CP.PCM.PN ---
Subjective - Date & Time of Evaluation Date of Evaluation: 09/01/18 Time of Evaluation: 07:00 - Subjective Subjective: General Surgery Dr. Du Pt S&E @bedside. No acute events overnight. Pt has no complaints. denies F/C, N/V, abd pain. tolerating PO intake, though minimal. good ostomy output. mayra output 100cc serous x24hrs Objective - Vital Signs/Intake and Output Vital Signs (last 24 hours): Temp Pulse Resp BP Pulse Ox 97.8 F 78 19 117/54 L 91 L 09/01/18 06:00 09/01/18 09:34 09/01/18 06:00 09/01/18 09:34 09/01/18 06:00 Intake and Output: 09/01/18 09/01/18 06:59 18:59 Intake Total 1272 Output Total 100 Balance 1172 - Medications Medications: Current Medications Albumin Human (Albumin Human 25% (12.5 Gm/50 Ml)) 12.5 gm IV ONCE ONE Stop: 09/01/18 10:31 Aspirin (Ecotrin) 81 mg PO DAILY [facility] Last Admin: 09/01/18 09:24 Dose: 81 mg Budesonide (Pulmicort Respules) 0.5 mg IH [id number] [facility] Last Admin: 09/01/18 07:36 Dose: 0.5 mg Clonidine HCl (Catapres Tts1 0.1 Mg/24 Hr) 1 patch TD Q7D@1000 [facility] Last Admin: 08/27/18 10:32 Dose: 1 patch Dextrose (Dextrose 50% Inj) 0 ml IV STAT PRN; Protocol PRN Reason: Hypoglycemia Protocol Dronabinol (Marinol) 2.5 mg PO TID [facility] Last Admin: 09/01/18 09:25 Dose: 2.5 mg Enoxaparin Sodium (Lovenox) 30 mg SC DAILY [facility]; Protocol Last Admin: 09/01/18 09:25 Dose: 30 mg Famotidine (Pepcid) 20 mg PO DAILY [facility] Last Admin: 09/01/18 09:24 Dose: 20 mg Furosemide (Lasix) 40 mg IV ONCE ONE Stop: 09/01/18 11:01 Dextrose (Dextrose 5% In Water 1000 Ml) 1,000 mls @ 0 mls/hr IV .Q0M PRN; Protocol PRN Reason: Hypoglycemia Protocol Amino Acids/Electrolytes/Dextrose (Clinimix 5/20 % "E" (2000 Ml)) 2,000 mls @ 83 mls/hr IV .Q24H [facility] Stop: 09/03/18 18:01 Last Admin: 08/31/18 20:00 Dose: 83 mls/hr diltiaZEM IVPB 100mg in NS (Cardizem 100mg In Ns) 100 mls @ 10 mls/hr IV .Q10H [facility] Stop: 09/01/18 11:30 Last Admin: 09/01/18 07:15 Dose: 10 mls/hr Ceftriaxone Sodium (Rocephin 1 Gram Ivpb) 1 gm in 100 mls @ 100 mls/hr IVPB DAILY [facility]; Protocol Last Admin: 09/01/18 09:26 Dose: 100 mls/hr Insulin Human Regular (Humulin R Low) 0 units SC ACHS [facility]; Protocol Last Admin: 09/01/18 09:19 Dose: 2 units Levalbuterol HCl (Xopenex) 0.63 mg IH [id number] [facility] Last Admin: 09/01/18 07:36 Dose: 0.63 mg Lidocaine (Lidoderm) 1 ea TD DAILY [facility] Last Admin: 08/31/18 12:17 Dose: Not Given Metoprolol Tartrate (Lopressor) 50 mg PO BRKDIN [facility] Last Admin: 09/01/18 09:25 Dose: 50 mg Prednisone (Prednisone Tab) 10 mg PO DAILY [facility] Last Admin: 09/01/18 09:25 Dose: 10 mg Verapamil HCl (Verapamil Inj) 2.5 mg IVP Q6H PRN PRN Reason: for heart rate >130 Verapamil HCl (Calan Tab) 40 mg PO TID [facility] Last Admin: 09/01/18 09:34 Dose: 40 mg - Labs Labs: 09/01/18 07:00 09/01/18 07:00 PT 14.8 SECONDS (9.4-12.5) H 08/29/18 05:00 INR 1.28 08/29/18 05:00 APTT 30.3 Seconds (25.1-36.5) 08/29/18 05:00 - Constitutional Appears: No Acute Distress, Chronically Ill - Head Exam Head Exam: NORMAL INSPECTION - Eye Exam Eye Exam: Normal appearance - ENT Exam ENT Exam: Mucous Membranes Moist - Respiratory Exam Respiratory Exam: NORMAL BREATHING PATTERN. absent: Accessory Muscle Use, Respiratory Distress - Cardiovascular Exam Cardiovascular Exam: Tachycardia. absent: Bradycardia - GI/Abdominal Exam GI & Abdominal Exam: Soft. absent: Distended, Firm, Guarding, Rigid, Tenderness, Rebound Additional comments: dressing c/d/i mayra w/ serous drainage stoma pink patent ostomy w/ stool present - Extremities Exam Extremities Exam: Normal Inspection - Neurological Exam Neurological Exam: Alert, Awake - Psychiatric Exam Psychiatric exam: Normal Affect, Normal Mood - Skin Skin Exam: Dry, Intact, Normal Color, Warm Assessment and Plan - Assessment and Plan (Free Text) Assessment: 82M s/p ex-lap and ileal perforation repair w/ VRE+ peritonitis, resolved Plan: - Titrate cardizem per cardiology - CT head - no acute findings - AM CXR: fluid overloaded, possible Lasix dose - f/u Pulm recs - cont TPN, HHD, PO supplements - encourage PO intake - cont Marinol - Monitor ostomy and mayra output - Replete electrolytes PRN - daily labs - Cultures repeated 08/28- drain Cx, UCx, BCx NGTD - F/u VRE screen - cont IV Abx per ID - cont aggressive PT - encourage OOB to chair/Amb/IS use Pt discussed w/ Dr. Florian West DO PGY3
--- NOTE | 2018-09-01 10:39 | PN ---
DATE: 09/01/2018 SUBJECTIVE: This 82-year-old male remains hospitalized on the cardiac [facility]omas at [facility] on the morning of 09/01/2018. He remains in atrial fibrillation rhythm on monitor. He remains weak and deconditioned and is status post rapid response for shortness of breath and change in mental status in the setting of tachycardia. PHYSICAL EXAMINATION: VITAL SIGNS: The patient at present has a temperature of 97.8, respirations 19, pulse 81 and blood pressure 127/60 with a pulse ox of 91% room air. HEAD: Normocephalic, atraumatic. Eyes: No icterus. NECK: Supple. HEART: Irregular S1, S2. LUNGS: With rhonchi. ABDOMEN: Soft. Josué-Murdock is draining clear yellow fluid. Colostomy is functioning. EXTREMITIES: No edema. SKIN: Without rash. NEUROLOGICAL: Deconditioned. VASCULAR: Legs warm to touch. PSYCHOLOGICAL: Confused. LABORATORY DATA: White count 5500, hemoglobin 8.5, hematocrit 26.4, platelets 97,000. Sodium 135, K 4.6, chloride 101, bicarb 33, BUN 54, creatinine 0.7, random blood sugar 224, percent saturation 15% low, total bilirubin 3.1, direct bilirubin 4 from yesterday where a total bilirubin was 5.1, AST 31, ALT 74, alk phos 71. Ammonia less than 9. BNP 8570. Blood cultures showing no growth at 24 hours. IMPRESSION: An 82-year-old male on parenteral antibiotics for vancomycin-resistant Enterococcus and Reshma tropicalis from wound cultures who is status post right hemicolectomy for cecal mass and is status post exploratory laparotomy for perforated ileum with comorbidities of metabolic encephalopathy, chronic atrial fibrillation, chronic systolic congestive heart failure, chronic hypertension, chronic obstructive pulmonary disease, acute renal failure, prerenal azotemia, insulin-dependent diabetes mellitus, anemia of chronic illness, iron-deficiency anemia, thrombocytopenia and wound infections with vancomycin-resistant Enterococcus and Reshma tropicalis, also with failure to thrive. PLAN: Plan is to continue Xopenex inhalational therapy, IV Rocephin, Pulmicort inhalational therapy, tapering doses of oral prednisone, Pepcid, subcu Lovenox, Lopressor, Lidoderm, insulin coverage before meals and at bedtime, Ecotrin, Clinimix, clonidine and oral verapamil. The patient continues on isolation precautions, fall precautions and aspiration precautions. He is encouraged to tolerate his diet and is receiving chest PT and BiPap. A head CT has been ordered. He is ordered to have physical therapy at bedside. He will continue to have serial labs and serial chest x-rays and overall prognosis remains poor. Antibiotics are being adjusted by infectious disease. The patient will continue with aggressive supportive care. Sara Ramirez MD MTDD
--- NOTE | 2018-09-01 11:48 | RAD ---
Date of service: 09/01/2018 HISTORY: CHF VS Pneumonitis COMPARISON: August 31, 2018. FINDINGS: LUNGS: Stable pulmonary edema/multifocal infiltrates left greater than right. PLEURA: Stable pleural effusions inseparable from consolidative change. CARDIOVASCULAR: Atherosclerotic calcifications identified primarily aortic arch. Persistent cardiomegaly. OSSEOUS STRUCTURES: No significant abnormalities. VISUALIZED UPPER ABDOMEN: Normal. OTHER FINDINGS: PICC line inserted via left upper extremity approach has changed, the tip now directed in a cephalad orientation in the SVC. Right IJ catheter in stable position. IMPRESSION: Change in position and orientation of the PICC line. The tip is now directed cephalad and should be repositioned. The finding is marked on the study for review.
[2018-09-01] MEDS ORDERED: DiphenhydrAMINE 50 mg/ml Inj IVP ONE (12:30)
--- NOTE | 2018-09-01 12:39 | PN ---
DATE: 09/01/2018 SUBJECTIVE: Patient is 82 years old, seen and examined. She is awake and alert. Had episode of rapid AFib, non-ST elevation [place], positive troponin, started on Cardizem drip. His oral intake is very poor. He only had 1 cup of apple sauce and oatmeal this morning. PHYSICAL EXAMINATION: GENERAL: He seems to be awake and alert, communicative. Answered appropriately. VITAL SIGNS: He is afebrile, pulse 81, respiration 19, blood pressure 117/54. LUNGS: Bilateral fair airflow. HEART: S1, S2 audible, irregular rate controlled. ABDOMEN: Soft. Colostomy functional. RUSSELL drain has 100 mL from the drain. NEUROLOGICAL: He is awake, alert and oriented. EXTREMITIES: Moves all extremities. He has generalized weakness. Difficulty getting out of bed. LABORATORY EXAMINATION: WBC 5.5, hemoglobin 8.5, hematocrit 26.4, platelet 97. Chemistry: Sodium 131, potassium 4.1, chloride 101, CO2 33, BUN 54, creatinine 0.7, blood sugar of 224, iron 30, TIBC is 200. His blood cultures are negative. Abdominal cavity cultures have no growth. ASSESSMENT AND PLAN: 1. Vancomycin-resistant Enterococcus wound infection. 2. Anemia. 3. Thrombocytopenia. 4. History of idiopathic thrombocytopenic purpura. 5. Hypertension. 6. Chronic atrial fibrillation. 7. Chronic obstructive pulmonary disease. 8. Deconditioning and difficulty walking. Currently, the patient is on verapamil 40 mg three times a day. He is on Catapres patch. He is getting TPN. He will be given 1 blood transfusion and patient is on losartan. We will follow up this patient in a.m. Tri Fleming MD
--- NOTE | 2018-09-01 21:48 | CP.PCM.PCO ---
Physician Communication Note - Physician Communication Note Physician Communication Note: Severe CHF-Anemia/IUPRBC-Lasix IV/NEEDS ambulation-chest PT
[2018-09-02] MEDS: Levalbuterol 0.63 MG/3 ML Inhal Soln UD IH SCH ×3 (01:48→20:21)
[2018-09-02 06:59] LABS: HEMOGLOBIN 9.5 g/dL (14.0-18.0); MEAN CELL VOLUME 93.7 fl (80.0-105.0); MEAN CORPUSCULAR HEMOGLOBIN 29.8 pg (25.0-35.0); MEAN CORPUSCULAR HGB CONC 31.8 g/dl (31.0-37.0); MEAN PLATELET VOLUME 9.3 fl (7.0-11.0); RBC 3.19 10^6/uL (3.5-6.1); RED CELL DISTRIBUTION WIDTH 19.1 % (11.5-14.5); WHITE BLOOD COUNT 3.7 10^3/uL (4.5-11.0)
[2018-09-02 07:20] LABS: ALBUMIN 2.2 g/dL (3.0-4.8); ALT/SGPT 67 U/L (7-56); AST/SGOT 33 U/L (17-59); BLOOD UREA NITROGEN 56 mg/dL (7-21); CALCIUM 7.9 mg/dL (8.4-10.5); GFR NON-AFRICAN AMERICAN > 60
--- NOTE | 2018-09-02 07:43 | CP.PCM.PCO ---
Physician Communication Note - Physician Communication Note Physician Communication Note: #4Recurrent Lt main blockage/ICU Bronch ?Trach
[2018-09-02 07:46] LABS: ARTERIAL BLOOD GAS HCO3 34.2 mmol/L (21-28); ARTERIAL BLOOD GAS O2 SAT 99.2 % (95-98); ARTERIAL BLOOD GAS PCO2 54 mm/Hg (35-45); ARTERIAL BLOOD GAS PH 7.41 (7.35-7.45); ARTERIAL BLOOD GAS TCO2 35.9 mmol.L (22-28)
[2018-09-02] MEDS ORDERED: NOREPINEPHRINE BIT/0.9 % NACL 4 MG/250 ML BAG IV PRN (09:00)
[2018-09-02] MEDS ORDERED: Sodium Chloride 0.9% 1,000 ML IV STA (09:01)
[2018-09-02] MEDS ORDERED: Albumin Human 25% (12.5 gm/50 ml) IV ONE ×2 (09:17→10:00)
--- NOTE | 2018-09-02 09:21 | RAD ---
Date of service: 09/02/2018 HISTORY: pleural effusion, fluid overload COMPARISON: 09/01/2018 FINDINGS: LUNGS: There is complete opacification of the left lung. Right lung remains clear. No change in central lines. PLEURA: As above CARDIOVASCULAR: Aortic calcifications Cardiomegaly patient is chronically rotated to the left OSSEOUS STRUCTURES: No significant abnormalities. VISUALIZED UPPER ABDOMEN: Normal. OTHER FINDINGS: None. IMPRESSION: There is complete opacification of the left lung. Right lung remains clear. No change in central lines.
[2018-09-02] MEDS: Propofol 10 mg/ml 1,000 MG/100 ML VIAL IV PRN (09:30)
--- NOTE | 2018-09-02 09:37 | PN ---
DATE: 09/02/2018 PULMONARY NOTE SUBJECTIVE: The patient appears mildly short of breath this morning. He is in no acute distress. The patient remains very, very weak appearing. PHYSICAL EXAMINATION: VITAL SIGNS: Temperature is 97.4, pulse is 80, respirations 22/24, blood pressure 129/73. Oxygen saturation on nasal cannula is 88%. HEENT: Normocephalic, atraumatic. No JVD. CARDIOVASCULAR: Systolic ejection murmur at the lower left sternal border. Questionable S3 gallop. LUNGS: Decreased breath sounds - left lung. Minimal rhonchi. No wheezing. Extremities: Mild edema. No cyanosis, no clubbing. Calves are nontender to palpation. GI: Abdomen is soft, nontender and nondistended. Abdomen is postoperative. SKIN: No acute rash. NEUROLOGIC: Exam limited at the present time. PERTINENT LABORATORY DATA: Chest x-ray was done this morning and reviewed. There is increasing opacification noted to the left lung. IMPRESSION 1. Recurrent left lung atelectasis. 2. Congestive heart failure. 3. Atrial fibrillation. 4. Intra-abdominal perforation. 5. Status post right hemicolectomy. 6. Chronic obstructive pulmonary disease. 7. Anemia, thrombocytopenia. PLAN: The patient appears mildly short of breath this morning. He is in no acute distress. He remains very, very weak appearing. I did discuss the case with the night nurse at length. The night nurse stated that the patient had an uneventful night. I did review the chest x-ray as above. There is again increased opacification noted to the left lung - consistent with atelectasis. The patient is status post multiple bronchoscopies. In addition to the above, there is a significant alveolar-arterial gradient this morning. I will get a stat arterial blood gas. The patient may need transfer back to the medical ICU, and repeat bronchoscopy. For now, I will continue with the current nebulizer treatments,pulmonary toilet, and low-dose oral steroids. Inputs by Surgery, Renal and Infectious Disease are also noted. The patient remains critically ill. His overall status/prognosis is very guarded/poor. I will discuss the above with Dr. Du this morning. I will also discuss the above with the ICU acid conditioning worker in the very near future. Rosalio Blevins MD [facility] # [id number] [place]
--- NOTE | 2018-09-02 10:02 | RAD ---
Date of service: 09/02/2018 PROCEDURE: Portable chest HISTORY: assess ET tube placement COMPARISON: Earlier same day TECHNIQUE: FINDINGS: The endotracheal tube is in satisfactory position. The study is otherwise unchanged IMPRESSION: Endotracheal tube in satisfactory position
--- NOTE | 2018-09-02 10:59 | CP.PCM.PN ---
Subjective - Date & Time of Evaluation Date of Evaluation: 09/02/18 Time of Evaluation: 10:56 - Subjective Subjective: General Surgery Progress Note for Dr. Du 82M seen and evaluated in the ICU this morning. Patient had CXR showing opacification of the left lung. Patient taken to ICU for bronchoscopy. No acute events overnight. This morning patient denied SOB or difficulty with breathing. Had appetite. Denies f/c, n/v/d, CP, or urinary symptoms. Objective - Vital Signs/Intake and Output Vital Signs (last 24 hours): Temp Pulse Resp BP Pulse Ox 97.4 F L 80 83 H 129/73 91 L 09/02/18 00:01 09/02/18 02:00 09/02/18 00:01 09/02/18 00:01 09/01/18 06:00 Intake and Output: 09/02/18 09/02/18 06:59 18:59 Intake Total 660 Output Total 650 Balance 10 - Medications Medications: Current Medications Acetylcysteine (Acetylcysteine 20%) 4 ml IH [id number] [facility] Aspirin (Ecotrin) 81 mg PO DAILY [facility] Last Admin: 09/01/18 09:24 Dose: 81 mg Budesonide (Pulmicort Respules) 0.5 mg IH [id number] [facility] Last Admin: 09/01/18 20:26 Dose: 0.5 mg Clonidine HCl (Catapres Tts1 0.1 Mg/24 Hr) 1 patch TD Q7D@1000 [facility] Last Admin: 08/27/18 10:32 Dose: 1 patch Dextrose (Dextrose 50% Inj) 0 ml IV STAT PRN; Protocol PRN Reason: Hypoglycemia Protocol Dronabinol (Marinol) 2.5 mg PO TID [facility] Last Admin: 09/01/18 17:56 Dose: 2.5 mg Enoxaparin Sodium (Lovenox) 30 mg SC DAILY [facility]; Protocol Last Admin: 09/01/18 09:25 Dose: 30 mg Famotidine (Pepcid) 20 mg PO DAILY [facility] Last Admin: 09/01/18 09:24 Dose: 20 mg Dextrose (Dextrose 5% In Water 1000 Ml) 1,000 mls @ 0 mls/hr IV .Q0M PRN; Pr otocol PRN Reason: Hypoglycemia Protocol Amino Acids/Electrolytes/Dextrose (Clinimix 5/20 % "E" (2000 Ml)) 2,000 mls @ 83 mls/hr IV .Q24H [facility] Stop: 09/03/18 18:01 Last Admin: 09/01/18 22:17 Dose: 83 mls/hr NOREPINEPHRINE BIT/0.9 % NACL (Levophed 4 Mg/ 250 Ml Ns Premixed) 4 mg in 250 mls @ 15 mls/hr IV .[id number] PRN; Protocol PRN Reason: TITRATE PER MD ORDER Propofol (Diprivan) 1,000 mg in 100 mls @ 1.757 mls/hr IV .Q24H PRN; Protocol PRN Reason: TITRATE PER MD ORDER Meropenem (Merrem Iv 1 Gm Premix) 1 gm in 50 mls @ 100 mls/hr IVPB Q8 [facility]; Protocol Stop: 09/11/18 09:09 Vancomycin HCl (Vancomycin 1gm) 1 gm in 250 mls @ 167 mls/hr IVPB Q12H [facility]; Protocol Stop: 09/11/18 09:16 diltiaZEM IVPB 100mg in NS (Cardizem 100mg In Ns) 100 mls @ 10 mls/hr IV .Q10H PRN; Protocol PRN Reason: TITRATE PER MD ORDER Insulin Human Regular (Humulin R Low) 0 units SC ACHS [facility]; Protocol Last Admin: 09/01/18 22:17 Dose: Not Given Levalbuterol HCl (Xopenex) 0.63 mg IH [id number] [facility] Last Admin: 09/02/18 01:48 Dose: 0.63 mg Lidocaine (Lidoderm) 1 ea TD DAILY [facility] Last Admin: 09/01/18 09:45 Dose: Not Given Metoprolol Tartrate (Lopressor) 50 mg PO BRKDIN [facility] Last Admin: 09/01/18 17:56 Dose: 50 mg Prednisone (Prednisone Tab) 10 mg PO DAILY [facility] Last Admin: 09/01/18 09:25 Dose: 10 mg Verapamil HCl (Verapamil Inj) 2.5 mg IVP Q6H PRN PRN Reason: for heart rate >130 Verapamil HCl (Calan Tab) 40 mg PO TID [facility] Last Admin: 09/01/18 17:56 Dose: 40 mg - Labs Labs: 09/02/18 06:30 09/02/18 06:30 PT 14.8 SECONDS (9.4-12.5) H 11/18/18 05:00 INR 1.28 08/29/18 05:00 APTT 30.3 Seconds (25.1-36.5) 08/29/18 05:00 - Constitutional Appears: Well, No Acute Distress, Chronically Ill - Head Exam Head Exam: ATRAUMATIC, NORMAL INSPECTION, NORMOCEPHALIC - Eye Exam Eye Exam: EOMI - ENT Exam ENT Exam: Mucous Membranes Dry - Respiratory Exam Respiratory Exam: Decreased Breath Sounds - Cardiovascular Exam Cardiovascular Exam: Irregular Rhythm. absent: REGULAR RHYTHM - GI/Abdominal Exam GI & Abdominal Exam: Soft, Normal Bowel Sounds. absent: Tenderness Additional comments: ostomy pink, patient and productive - Neurological Exam Neurological Exam: Alert, Awake - Skin Skin Exam: Dry, Intact, Normal Color, Warm Assessment and Plan - Assessment and Plan (Free Text) Assessment: 82M s/p ex lap w/ ileal perforation w/ VRE+ peritonitis now resolved, acutely deconditioned and malnourished with new left lung opacification Plan: Admit to ICU - bronchoscopy Continue TPN, HHD, and supplements Continue to monitor ostomy and mayra output Continue aggressive PT IV Abx per ID - Merrem, Vanc F/u cultures for body fluids and VRE screen Daily labs Replete electrolytes as needed Further recommendations per Dr. Florian Metz PGY1
[2018-09-02 11:25] LABS: ARTERIAL BLOOD GAS HCO3 29.6 mmol/L (21-28); ARTERIAL BLOOD GAS O2 SAT 99.5 % (95-98); ARTERIAL BLOOD GAS PCO2 50 mm/Hg (35-45); ARTERIAL BLOOD GAS PH 7.38 (7.35-7.45); ARTERIAL BLOOD GAS TCO2 31.1 mmol.L (22-28)
[2018-09-02] MEDS: diltiaZEM IVPB 100mg in NS 100 ML IV PRN (12:03)
[2018-09-02] MEDS: Vancomycin 1gm in NS 250ml 1 GM/250 ML BAG IVPB SCH ×2 (12:03→22:06)
[2018-09-02] MEDS: Meropenem IV 1 gm in NS 1 GM/50 ML BAG IVPB SCH ×3 (12:06→22:06)
[2018-09-02] MEDS: Insulin Reg-LOW-Coverage SC SCH ×3 (12:10→22:31)
[2018-09-02] MEDS: Acetylcysteine 20% Inhal Soln (4ml) IH SCH ×2 (13:03→20:21)
--- NOTE | 2018-09-02 14:22 | PN ---
DATE: 09/02/2018 SUBJECTIVE: The patient is seen earlier this morning in room [address] and Dr[address] Andujar. The patient has mild shortness of breath. There has been no fevers. There has been no chest pain. No abdominal pain. No diarrhea. No fevers or chills. PHYSICAL EXAMINATION: VITAL SIGNS: The patient's temperature is 97, blood pressure is 120/60, respiratory rate of 18, heart rate of 80. HEENT: Unremarkable. NECK: Supple. LUNGS: Decreased breath sounds. HEART: Normal S1 and S2. ABDOMEN: Soft. LABORATORY DATA: Reveals a white count of 3.7, hemoglobin of 9, platelets of 98. Coagulation is noted. BUN of 56, creatinine of 0.7 and the patient's last procalcitonin is 0.62, which was yesterday. Chemistry reveals that the patient has a creatinine of 0.7. Urinalysis is noted. Blood cultures showed no growth from the 08/30/2018 and nares MRSA is not detected from last month. Chest x-ray is reviewed. ASSESSMENT AND PLAN: An 82-year-old male who was initially on the floor and long hospital stay with the sepsis, status post ventilator-dependent respiratory failure secondary to perforated ileum, status post exploratory laparotomy, resection of terminal ileum, primary anastomosis of vancomycin-resistant Enterococcus and Reshma tropicalis, postoperatively day #22 and had anxiety and congestive heart failure, had received micafungin, Zyvox and meropenem and is now off antibiotics. The patient has a new healthcare associated pneumonia and transferred to the intensive care unit. We will order vancomycin and meropenem, order procalcitonin and repeat mclaughlin-cultures and we will also repeat a methicillin-resistant Staphylococcus aureus screen in addition to urinalysis, urine culture, sputum culture, and start vancomycin and meropenem empirically. The patient is discussed with Dr. Blevins and Dr. Andujar for possible bronchoscopy today. We will follow with you. Jason Garvin MD
--- NOTE | 2018-09-02 14:31 | PN ---
DATE: 09/02/2018 REASON FOR CONSULTATION AND FOLLOWUP: Status post left bronch, probably mucus plug, completely white out left side of the lung on chest x-ray, in the process of moving to ICU for possible bronch. SUBJECTIVE: The patient denies any chest pain, shortness of breath, any palpitation. PHYSICAL EXAMINATION: As follows: GENERAL: Not in apparent distress. VITAL SIGNS: Temperature afebrile, heart rate 80, blood pressure 129/73. HEENT: PERRLA. Extraocular muscles intact. NECK: Supple. No carotid bruits or thyromegaly. CHEST: Clear to auscultation. HEART: S1 and S2 regular. ABDOMEN: Soft. EXTREMITIES: Clubbing and cyanosis negative. LABORATORY DATA: WBC 3.7, hemoglobin 9.5, hematocrit 29.9, platelet count 98. Chemistry shows sodium 133, potassium 4.5, chloride 100, carbon dioxide 35, anion gap of 7, BUN 56, creatinine 0.7. Decreased air entry at the left base completely white out on chest x-ray. Albumin 2.2. PSA was 2.2. IMPRESSION: Severe protein-calorie malnutrition, not present on admission, recurrent left lung collapse secondary to mucus plug, history of atrial fibrillation, cardiac catheterization and not on anticoagulation because of increased serosanguineous discharge from the drainage, history of colostomy in the past, history of villous adenoma of the cecum, status post right hemicolectomy, course complicated by recurrent left lobe collapse, endobronchial obstruction and also further complicated by perforation of the hollow viscus, postop redo exploration and lysis of adhesion and resection of the bowel with end-to-end anastomosis. Getting severe protein-calorie malnutrition, history of abdominal aortic aneurysm, history of endovascular sent, again chronic atrial fibrillation, pre-endovascular stent in April. The patient had abnormal stress test , echocardiogram repeat preserved left ventricular function. RECOMMENDATIONS: The patient is in the process of moving to ICU as we saw the patient. The patient was in 268 bed while going to the ICU and going to be moved to ICU for possible bronch. Discussed with Dr. Andujar. We will change to p.o. medications to IV Cardizem and bronch done. Further recommended by hospital course and we will follow with you. Possibly, the patient may need intubation and may need long-term possible tracheostomy. Discussed with Dr. Andujar. Possibly this is fourth or fifth bronch and collapse of the lung with mucus plug. Overall, the patient's long-term prognosis is extremely guarded. We will give two doses of IV albumin 12.5 g followed by Lasix and we will discontinue verapamil and just start 10 mg of Cardizem if going into rapid rate because the patient is going to be in bronch. Thank you for providing us the opportunity in taking care of the patient, Roshan Hale. Gladis Greenfield MD
--- NOTE | 2018-09-02 14:33 | PN ---
DATE: 09/02/2018 FOLLOWUP NOTE SUBJECTIVE: The patient was transferred to ICU for bronchoscopy because of complete opacification of the left side of the lung. No events overnight. Denies any shortness of breath. No difficulty breathing. REVIEW OF SYSTEMS: As per HPI. Rest of 12-point review of systems reviewed negative. PHYSICAL EXAMINATION: VITAL SIGNS: Temperature 94.7, heart rate is 80 per minute, respiratory rate 25 per minute, blood pressure 129/73, pulse ox is 91% on room air. HEENT: Pallor positive. NECK: No lymphadenopathy. CHEST: Decreased breath sound. CARDIOVASCULAR: Irregular rhythm. GI: Soft abdomen. EXTREMITY: No edema. LABORATORY DATA: White count 3.5, hemoglobin 9.5, hematocrit 29.9, platelet 98. Sodium 137, potassium 4.5, BUN 56, creatinine 0.9. ASSESSMENT: 1. Status post ileal perforation, status post exploratory laparotomy. 2. Vancomycin-resistant Enterococcus peritonitis, resolved. 3. Deconditioning. 4. Left lung opacification. PLAN: Currently on IV antibiotic, meropenem and vancomycin. He is very deconditioned, weak. Continue TPN and supplement. Follow up cultures. Blood count: Stable hemoglobin and hematocrit. White count low at 3.5. Platelet count stable at 98.000. LFTs showed elevated bilirubin of 3.9. Recommend considering GI consult. Lesia Ledezma MD [place]
[2018-09-02] MEDS: Enoxaparin 30 mg Syringe SC SCH (15:30)
[2018-09-02] MEDS: Lidocaine 5% Patch TD SCH (17:12)
--- NOTE | 2018-09-02 17:25 | PN ---
DATE: 09/02/2018 SUBJECTIVE: The patient is seen and examined at bedside. He has very prolonged and protracted hospital course including ICU stay initially after scheduled intra-abdominal surgery and then due to anastomosis leak requiring ex lap and repair. The patient did have significant problem with clearing his airways and has several bronchs for pulmonary toilet purposes with reopening of the left lung. Apparently, noninvasive attempts at chest PT failed in the past. At this time, I was contacted by the patient's aerographer, Dr. Blevins as the patient had his left lung collapse again due to mucus block. Decision was made to transfer the patient to ICU, intubate him and perform bronchoscopy. Patient was intubated without problems, subsequent bronchoscopy revealed large quantity of mucopurulent secretion emanating from left mainstem bronchus, followed up by its removal/suctioning PHYSICAL EXAMINATION: VITAL SIGNS: Heart rate 117, blood pressure 122/97, respiratory rate 19, oxygen saturation 100% on 40% FIO2. ENT: Head and neck atraumatic. LUNGS: Few crackles and rhonchi bilaterally. HEART: Regular rate and rhythm. S1 and S2 normal. ABDOMEN: Soft, nontender and nondistended. MUSCULOSKELETAL: No C/C/E. NEURO: The patient moves all extremities spontaneously. SKIN: Moist. PSYCH: The patient was following commands and even trying to communicate nonverbally as he is intubated. LABORATORY DATA: WBC 3.7, hemoglobin 9.5 (relatively stable), platelet count 98. Sodium 137, potassium 4.5, chloride 100, carbon dioxide 35, BUN 56, creatinine 0.7, glucose 184, AST 33, ALT 67, total bilirubin 3.9, albumin 2.2. MEDICATIONS: Acetylcysteine inhaled every 6 hours, TPN, aspirin, budesonide, Cardizem drip, clonidine patch, Marinol, Pepcid, regular insulin sliding scale low protocol, Xopenex, lidocaine patch, meropenem, metoprolol, norepinephrine, prednisone, propofol, vancomycin, verapamil. ASSESSMENT AND PLAN: This is an 82-year-old gentleman, who presented to ICU for elective intubation with subsequent flexible bronchoscopy for pulmonary toilet after noninvasive chest PT failed. The patient is also very noncompliant with medical recommendations. Very thick, viscous mucopurulent secretion originating from the left mainstem was observed and suctioned out. Labs were sent for microanalysis. The patient is on antibiotics, bronchodilators, steroid taper. The patient's family approached me with few questions about advance directives. They will decide about that within next few days. We will continue to target euvolemia, euglycemia, normothermia and oxygen saturation more than 90%. We will continue with protective lung ventilation strategy, somewhat higher PEEP/fi02 ratio Oral hygiene, head of bed elevated at more than 35 degrees. Conservative oxygen and fluid management. We will maintain blood glucose within 140-180 range according to NICE-SUGAR trial. We will avoid hyperchloremia and maintain mean arterial pressure more than 65. ccm time 40 min Ari Andujar MD [facility]
[2018-09-02] MEDS: Budesonide 0.5 mg/2 ml Inhal Susp UD IH SCH (20:20)
--- NOTE | 2018-09-02 20:23 | CON ---
DATE: 09/02/2018 LOCATION: [facility]. NEPHROLOGY FOLLOWUP Covering for Dr. Sara Ramirez. HISTORY OF PRESENT ILLNESS: The patient is seen in transfer to ICU for bronchoscopy due to complete opacification of left side of the lung; currently is alert, on mild sedation. Denies any pain. PHYSICAL EXAMINATION: GENERAL: No distress. The patient is alert, able to follow commands. VITAL SIGNS: Blood pressure 122/97, heart rate 120, respirations 19, temperature 97.4, O2 sat 98% on 40% FIO2 via mechanical ventilation. HEENT: The patient is intubated. RESPIRATORY: No respiratory distress. CARDIOVASCULAR: Heart sounds 1 and S2 normal, irregular rate, displaced PMI laterally. ABDOMEN: Soft, nontender, nondistended. GENITOURINARY: No bladder distention. EXTREMITIES: No leg edema. LABORATORY DATA: CBC: WBC 3.7, hemoglobin 9.5, hematocrit 29.9, platelets 98. Chemistry panel: Sodium 137, potassium 4.5, chloride 100, bicarb 35, BUN 56, creatinine 0.7, glucose 184, calcium 7.9, phosphorous 4, magnesium 2.2, albumin 2.2. ABG on 40% FIO2, pH 738, pCO2 of 50, pO2 of 103. ASSESSMENT AND PLAN: 1. Azotemia. BUN remains elevated in mid 50s, relatively stable with stable renal function. Otherwise stable electrolyte and volume status hemodynamically stable. High BUN may be due in part to increased protein content of TPN. Considering the patient's markedly hypoalbuminemic status, we will continue the same TPN formula; may need to consider maintenance IV fluids with normal saline at 40 mL/hour. 2. Hypertension. Blood pressure mostly well controlled, currently on clonidine patch 0.1 mg, metoprolol tartrate 50 mg b.i.d.; started today on Cardizem drip; follow up with Cardiology for rate control recommendations. 3. Pneumonia. The patient is on meropenem and vanco. We will start it today, need to check vanco trough before third dose to avoid toxicity. Thank you for allowing us to participate in the care of Mr. Hale. We will be following up closely. Wil Mughni, MD [facility] # [id number]
--- NOTE | 2018-09-02 23:15 | OP ---
PROCEDURE DATE: 09/02/2018 PROCEDURE: Endotracheal intubation. INDICATION: Airway protection for flexible bronchoscopy with bronchial washings and pulmonary toilet. DESCRIPTION OF PROCEDURE: patient was preoxygenated via ambu bag with 100% fi02, sedated with 50 mcg propofol IV, 1L NS was given to optimize RV function in periprocedural period, NE on stabd-by. Direct laryngoscopy performed with mac 3 curve blade, vocal visualized and trachea intubated. end tidal c02 monitor change color immediately, ET placement confirmed by gastric and b/l lung auscultation and 02 sat kept staying at 100%. cxr confirmed position of ET tube. secured at 25 cm lips. patient tolerated procedure well. vital signs were monitored throughout the procedure and were relatively stable Ari Andujar MD [place]
--- NOTE | 2018-09-02 23:29 | OP ---
PROCEDURE DATE: 09/02/2018 PROCEDURE: Flexible bronchoscopy. INDICATION: Left lung atelectasis due to mucus plug. DESCRIPTION OF PROCEDURE: After obtaining informed consent, the patient was preoxygenated with 100% FiO2, PEEP was switched to zero, and the patient was switched to volume control mode of ventilation (putting the flexible bronchoscope in endotracheal tube would intrinsically increase PEEP and vt may be unreliable had other then VC mode used). Vital signs were monitored throughout the procedure and were stable. Endotracheal tube was about 3 cm above raul. Tracheobronchial tree was examined from 3 cm above raul down to first segmental levels of the bronchial tree on the right and left side. Right side appears to have some areas of erythema and mild mucus secretion. On the left side, multiple mucus plugs were removed from left mainstem bronchus. It was very viscous and thick secretion. Despite aggressive suctioning, some of the mucus plugs were unable to be removed. Bronchial washings were sent for micro analysis (GS, culture, afb, fungi). Left bronchial tree mucosa appears to be frail, erythematous, and inflamed. After the procedure was completed, the bronchoscope was removed. The patient was put back on [facility] in original setting. The patient tolerated the procedure well. Chest x-ray showed resolution of L. lung collapse and no ptx. Ari Andujar MD [place]
[2018-09-03] MEDS: Acetylcysteine 20% Inhal Soln (4ml) IH SCH ×5 (01:17→19:30)
[2018-09-03] MEDS: Levalbuterol 0.63 MG/3 ML Inhal Soln UD IH SCH ×4 (01:21→19:25)
[2018-09-03] MEDS: Meropenem IV 1 gm in NS 1 GM/50 ML BAG IVPB SCH ×3 (05:49→22:05)
[2018-09-03] MEDS: diltiaZEM IVPB 100mg in NS 100 ML IV PRN ×3 (05:49→22:47)
[2018-09-03] MEDS: Propofol 10 mg/ml 1,000 MG/100 ML VIAL IV PRN ×2 (05:50→18:00)
[2018-09-03 06:28] LABS: HEMOGLOBIN 9.9 g/dL (14.0-18.0); MEAN CELL VOLUME 94.8 fl (80.0-105.0); MEAN CORPUSCULAR HEMOGLOBIN 30.1 pg (25.0-35.0); MEAN CORPUSCULAR HGB CONC 31.7 g/dl (31.0-37.0); MEAN PLATELET VOLUME 8.9 fl (7.0-11.0); RBC 3.29 10^6/uL (3.5-6.1); RED CELL DISTRIBUTION WIDTH 19.5 % (11.5-14.5); WHITE BLOOD COUNT 3.8 10^3/uL (4.5-11.0)
[2018-09-03 06:51] LABS: ALB/GLOB RATIO 0.9 (1.1-1.8); ALBUMIN 2.2 g/dL (3.0-4.8); ALT/SGPT 57 U/L (7-56); AST/SGOT 36 U/L (17-59); BLOOD UREA NITROGEN 49 mg/dL (7-21); CALCIUM 7.8 mg/dL (8.4-10.5); GFR NON-AFRICAN AMERICAN > 60
[2018-09-03 07:27] LABS: ARTERIAL BLOOD GAS HCO3 32.3 mmol/L (21-28); ARTERIAL BLOOD GAS O2 SAT 100.1 % (95-98); ARTERIAL BLOOD GAS PCO2 51 mm/Hg (35-45); ARTERIAL BLOOD GAS PH 7.41 (7.35-7.45); ARTERIAL BLOOD GAS TCO2 33.9 mmol.L (22-28)
[2018-09-03] MEDS: Budesonide 0.5 mg/2 ml Inhal Susp UD IH SCH ×2 (07:32→19:30)
--- NOTE | 2018-09-03 07:45 | PN ---
DATE: 09/01/2018 REASON FOR CONSULTATION AND FOLLOWUP: Cardiac evaluation, atrial fibrillation, status post right hemicolectomy status post perforation, status post exploratory laparotomy. yesterday, the patient had blood transfusion. He started shivering rapid response. Troponin was borderline positive, probably secondary to demand supply mismatch. This note is in addition to dictated by nurse practitioner. Probably this troponin borderline is secondary to demand supply mismatch because the patient had AFib with rapid ventricular rate, severe anemic, hemoglobin was around 9 and the maximum troponin was 3.37, probably demand supply mismatch. Prior to this surgery, the patient had in April noninvasive workup essentially negative. Overall, the patient's condition is critical. The patient had severe protein-calorie malnutrition, albumin is 2, which was not present on admission. Currently on PPN and Glucerna. RECOMMENDATION: We will change the IV Cardizem to p.o. verapamil as tolerated by the patient and we will give two doses of IV albumin and give IV Lasix after two doses to a scheduled free water. Overall, the patient's condition critical. 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 We will follow with you. Thank you for providing us the opportunity in taking care of the patient, Alexia. As mentioned, we will discontinue IV Cardizem an hour after first p.o. verapamil and we will give 40 of Lasix after two doses of IV albumin. We will give Lasix at 11:30 times one dose. Gladis Greenfield MD
[2018-09-03 08:24] LABS: URINE BILIRUBIN MODERATE (NEGATIVE); URINE BLOOD MODERATE (NEGATIVE); URINE GLUCOSE (UA) 100 mg/dL (NEGATIVE); URINE LEUKOCYTE ESTERASE TRACE Leu/uL (NEGATIVE); URINE PROTEIN TRACE mg/dL (<30 mg/dL); URINE UROBILINOGEN 0.2 E.U./dL (<1 E.U./dL)
--- NOTE | 2018-09-03 08:24 | PN ---
DATE: 09/03/2018 SUBJECTIVE: The patient is seen in the ICU 1, bed #1. The patient is intubated on the ventilator. Yesterday's events are noted. The patient had an uneventful night. PHYSICAL EXAMINATION: VITAL SIGNS: On exam, the patient's temperature is 97, blood pressure is 140/80, respiratory rate of 18, heart rate of 118. HEENT: Examination of HEENT is unremarkable. NECK: Supple. LUNGS: Have decreased breath sounds. HEART: Normal S1 and S2. ABDOMEN: Soft, nontender. LABORATORY DATA: Examination of the laboratory reveals the patient's white count is 3.8, hemoglobin of 9, platelets of 88. BUN of 49, creatinine of 0.6. Procalcitonin is 0.42. The patient did have an elevated procalcitonin day before yesterday at 0.62. Urinalysis is noted. Serology is negative. Microbiology is noted. ASSESSMENT AND PLAN: An 82-year-old who was initially on the floor, long hospital stay. Sepsis, status post ventilatory-dependent respiratory failure, perforated ileum, status post exploratory laparotomy, resection of terminal ileum, primary anastomosis and had vancomycin-resistant Enterococcus and Reshma tropicalis, postoperatively day #23 with a history of anxiety and congestive heart failure. Now, the patient yesterday had respiratory failure, intubated on a ventilator with healthcare-associated pneumonia and severe sepsis. Negative procalcitonin. Microbiology is pending. Currently, on meropenem, vancomycin. We will follow closely with you. Jason Garvin MD
[2018-09-03 08:26] LABS: URINE APPEARANCE CLEAR (CLEAR); URINE COLOR DARK YELLOW (YELLOW)
[2018-09-03 08:36] LABS: URINE BACTERIA FEW (NEG); URINE HYALINE CAST 0 - 2 /hpf
[2018-09-03] MEDS ORDERED: Insulin Regular 1 UNITS/0.01 ML ML ONE (09:17)
[2018-09-03] MEDS: Insulin Reg-LOW-Coverage SC SCH ×3 (09:18→19:38)
--- NOTE | 2018-09-03 09:20 | RAD ---
Date of service: 09/02/2018 HISTORY: s/p bronchoscopy; ET tube in place COMPARISON: Earlier same day FINDINGS: LUNGS: There is improved aeration of the left lung especially the left upper lobe. There is continued consolidation at the left lung base. Central lines and tubes are unchanged. PLEURA: As above CARDIOVASCULAR: Aortic calcification Moderate cardiomegaly no pulmonary vascular congestion. OSSEOUS STRUCTURES: No significant abnormalities. VISUALIZED UPPER ABDOMEN: Normal. OTHER FINDINGS: None. IMPRESSION: There is improved aeration of the left lung especially the left upper lobe. There is continued consolidation at the left lung base. Central lines and tubes are unchanged.
--- NOTE | 2018-09-03 09:26 | RAD ---
Date of service: 09/03/2018 HISTORY: f/u COMPARISON: 09/02/2018 FINDINGS: LUNGS: Improved aeration of the left lung. Central lines and tubes unchanged. PLEURA: No significant pleural effusion identified, no pneumothorax apparent. CARDIOVASCULAR: No aortic atherosclerotic calcification present. Normal cardiac size. No pulmonary vascular congestion. OSSEOUS STRUCTURES: No significant abnormalities. VISUALIZED UPPER ABDOMEN: Normal. OTHER FINDINGS: None. IMPRESSION: Improved aeration of the left lung. Central lines and tubes unchanged.
[2018-09-03] MEDS: Vancomycin 1gm in NS 250ml 1 GM/250 ML BAG IVPB SCH (09:35)
[2018-09-03] MEDS: Lidocaine 5% Patch TD SCH (10:50)
--- NOTE | 2018-09-03 11:19 | PN ---
DATE: 09/03/2018 REASON FOR CONSULTATION AND FOLLOWUP: Cardiac evaluation, history of AFib, status post abdominal surgery, status post mucus plug, obstructed left , status post intubated and bronch, cardiac evaluation followup. SUBJECTIVE: The patient remains intubated, awake, and alert, responded to verbal stimuli. Denies any chest pain, shortness of breath, any palpitation. PHYSICAL EXAMINATION GENERAL: Not in apparent distress. VITAL SIGNS: Temperature afebrile, heart rate 109, blood pressure 119/58. HEENT: PERRLA. Extraocular muscles intact. NECK: Supple. No carotid bruit or thyromegaly. CHEST: Clear to auscultation. HEART: S1, S2. Regular. ABDOMEN: Soft. EXTREMITIES: Clubbing and cyanosis negative. LABORATORY DATA: Blood workup as follows; WBC 3.8, hemoglobin 9.9, hematocrit 31.2, platelet count 88,000. Chemistry shows sodium 140, potassium 4.2, chloride 103, carbon dioxide 33, anion gap of 8, BUN 49, creatinine 0.6. 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 Hospital course complicated by multiple episodes of collapse of left lung with thick mucus in the left bronchus, multiple times bronch'd and aspirated. Yesterday, the patient moved to ICU for elective intubation and bronchoscopy. History of abdominal aortic aneurysm, repaired by an endovascular repair. Prior to that, the patient had stress test negative. History of chronic atrial fibrillation. Postoperative course also complicated by perforation of the hollow viscus requiring re-exploration for abdominal surgery, lysis of adhesions, end-to-end anastomosis, resection of the perforated bowel segment, failure to thrive, hypoproteinemia. Now, the patient is electively intubated and bronch done. RECOMMENDATIONS: Continue IV Cardizem. Therefore, the Cardizem is started to maintain the heart rate, control the heart rate from the AFib. Give two doses of IV albumin and verapamil is on hold. Monitor electrolytes closely. Continue gentle diuretics as needed. Monitor euvolemic state. Aggressively managing in the ICU. We will continue negative fluid balance and Lasix as needed. Keep the patient in negative fluid balance for better oxygenation, but at the same time, we will try to avoid dehydration because of causing more thick phlegm and more mucus obstruction to the bronchus. We will follow with you. Overall, the patient's condition is critical. Long-term prognosis is guarded. Thank you Dr. Du/Dr. Andujar for providing the opportunity in taking care of the patient, Roshan Hale. Gladis Greenfield MD
--- NOTE | 2018-09-03 11:21 | CP.CCUPN ---
<Librado Shahid - Last Filed: 09/03/18 15:43> CCU Subjective - Physician Review Subjective (Free Text): Librado Shahid DO,PGY1. ICU progress note for Keys Patient seen and examined at bedside. Still intubated and sedated. Responds to verbal stimuli. Moves extremities. No acute events overnight. CCU Objective - Vital Signs / Intake & Output Vital Signs (Last 4 hours): Vital Signs Pulse BP Pulse Ox 09/03/18 09:15 119/58 L 09/03/18 09:14 109 H 100 09/03/18 09:00 111 H 130/66 99 09/03/18 08:45 112 H 149/65 100 09/03/18 08:30 131/67 09/03/18 08:29 106 H 100 09/03/18 08:15 115 H 138/68 98 09/03/18 08:00 108 H 119/69 99 09/03/18 07:45 116 H 123/67 99 09/03/18 07:30 107 H 134/74 99 Intake and Output (Last 8hrs): Intake & Output 09/02/18 09/03/18 09/03/18 22:59 06:59 14:59 Intake Total 1205 1561 Output Total 40 70 Balance 1165 1491 Weight 127 lb 12.8 oz Intake: IV 1205 1211 Cardizem 60 Clinimix 996 Left Antecubital 1060 Propofol 43 Oral 0 Tube Feeding 0 TPN/PPN 0 Blood Product 0 Lipid 0 Albumin 0 Other 350 Output: Drainage 40 70 Right Abdomen 40 70 Other: # Bowel Movements 0 - Physical Exam Physical Exam Limitations: Positive for: Altered Mental Status Head: Positive for: Atraumatic, Normocephalic Pupils: Positive for: PERRL Extroacular Muscles: Positive for: EOMI Conjunctiva: Positive for: Normal Mouth: Positive for: Moist Mucous Membranes Pharnyx: Positive for: Normal Neck: Negative for: JVD, Lymphadenopathy Respiratory/Chest: Positive for: Clear to Auscultation, Good Air Exchange, Other (sedated, on ventilation). Negative for: Respiratory Distress Cardiovascular: Positive for: Normal S1, S2, Irregular Rhythm, Other Abdomen: Positive for: Normal Bowel Sounds, Other ( Colostomy bag in place). Negative for: Tenderness, Distention Upper Extremity: Positive for: Normal Inspection. Negative for: Edema Lower Extremity: Positive for: Normal Inspection. Negative for: Edema Skin: Positive for: Warm, Dry, Normal Color Psychiatric: Positive for: Lethargic (sedated. on restraints) - Medications Active Medications: Active Medications Generic Name Dose Route Start Last Admin Trade Name Freq PRN Reason Stop Dose Admin Acetylcysteine 4 ml 09/02/18 08:00 09/03/18 07:32 Acetylcysteine 20% IH 4 ml [id number] Administration Aspirin 81 mg 08/25/18 10:00 09/01/18 09:24 Ecotrin PO 81 mg DAILY KD Administration Budesonide 0.5 mg 08/13/18 08:00 09/03/18 07:32 Pulmicort Respules IH 0.5 mg [id number] KD Administration Clonidine HCl 1 patch 08/13/18 10:00 08/27/18 10:32 Catapres Tts1 0.1 Mg/24 Hr TD 1 patch Q7D@1000 KD Administration Dextrose 0 ml 08/20/18 08:47 Dextrose 50% Inj IV STAT PRN Hypoglycemia Protocol Protocol Dronabinol 2.5 mg 08/25/18 14:00 09/02/18 17:12 Marinol PO Not Given TID KD Famotidine 20 mg 08/21/18 10:00 09/01/18 09:24 Pepcid PO 20 mg DAILY KD Administration Dextrose 1,000 mls @ 0 mls/hr 08/20/18 08:47 Dextrose 5% In Water 1000 Ml IV .Q0M PRN Hypoglycemia Protocol Protocol Per Protocol Amino Acids/Electrolytes/Dextrose 2,000 mls @ 83 mls/hr 08/30/18 18:00 09/02/18 17:17 Clinimix 5/20 % "E" (2000 Ml) IV 09/06/18 17:59 83 mls/hr .Q24H KD Administration NOREPINEPHRINE BIT/0.9 % NACL 4 mg in 250 mls @ 15 mls/hr 09/02/18 09:00 09/02/18 18:00 Levophed 4 Mg/ 250 Ml Ns Premixed IV 0 mcg/min .[id number] PRN 0 mls/hr TITRATE PER MD ORDER Titration Protocol 4 MCG/MIN Propofol 1,000 mg in 100 mls @ 1.757 mls/hr 09/02/18 09:00 09/03/18 06:15 Diprivan IV 15 mcg/kg/min .Q24H PRN 5.27 mls/hr TITRATE PER MD ORDER Titration Protocol 5 MCG/KG/MIN Meropenem 1 gm in 50 mls @ 100 mls/hr 09/02/18 09:08 09/03/18 05:49 Merrem Iv 1 Gm Premix IVPB 09/11/18 09:09 100 mls/hr Q8 KD Administration Protocol Vancomycin HCl 1 gm in 250 mls @ 167 mls/hr 09/02/18 09:15 09/03/18 09:35 Vancomycin 1gm IVPB 09/11/18 09:16 167 mls/hr Q12H KD Administration Protocol diltiaZEM IVPB 100mg in NS 100 mls @ 10 mls/hr 09/02/18 09:16 09/03/18 06:45 Cardizem 100mg In Ns IV 10 mg/hr .Q10H PRN 10 mls/hr TITRATE PER MD ORDER Titration Protocol 10 MG/HR Insulin Human Regular 0 units 09/03/18 12:00 Humulin R Low SC Q6 KD Protocol Levalbuterol HCl 0.63 mg 08/18/18 08:00 09/03/18 07:32 Xopenex IH 0.63 mg [id number] KD Administration Lidocaine 1 ea 08/10/18 10:00 09/02/18 17:12 Lidoderm TD Not Given DAILY KD Metoprolol Tartrate 50 mg 08/29/18 17:00 09/02/18 17:00 Lopressor PO Not Given BRKDIN KD Prednisone 10 mg 08/27/18 10:00 09/01/18 09:25 Prednisone Tab PO 10 mg DAILY KD Administration Verapamil HCl 2.5 mg 08/31/18 09:03 Verapamil Inj IVP Q6H PRN for heart rate >130 Verapamil HCl 40 mg 09/01/18 10:00 09/01/18 17:56 Calan Tab PO 40 mg TID KD Administration - Patient Studies Lab Studies: Microbiology Studies 09/02/18 16:59 Gram Stain - Final Sputum 09/02/18 16:28 Gram Stain - Final Sputum 09/02/18 16:18 Gram Stain - Final Sputum 08/30/18 17:08 Gram Stain - Final Blood Transfusion Bag - Preliminary NO GROWTH AFTER 3 DAYS 08/30/18 16:15 Blood Culture - Preliminary Blood-Thru Central Line NO GROWTH AFTER 3 DAYS 08/30/18 16:15 Blood Culture - Preliminary Blood-Thru Central Line NO GROWTH AFTER 3 DAYS 08/30/18 05:00 Gram Stain - Final Body Fluid - Abdominal Cavity Body Fluid Culture - Final Jagdeep Tropicalis 08/30/18 12:00 Body Fluid Culture - Preliminary Body Fluid - Abdominal Cavity NO GROWTH AFTER 3 DAYS Lab Studies 09/03/18 09/03/18 09/03/18 Range/Units 08:36 08:00 07:24 WBC (4.5-11.0) 10^3/uL RBC (3.5-6.1) 10^6/uL Hgb (14.0-18.0) g/dL Hct (42.0-52.0) % MCV (80.0-105.0) fl MCH (25.0-35.0) pg MCHC (31.0-37.0) g/dl RDW (11.5-14.5) % Plt Count (120.0-450.0) 10^3/uL MPV (7.0-11.0) fl pCO2 51 H (35-45) mm/Hg pO2 125.0 H (80-100) mm/Hg HCO3 32.3 H (21-28) mmol/L ABG pH 7.41 (7.35-7.45) ABG Total CO2 33.9 H (22-28) mmol.L ABG O2 Saturation 100.1 H (95-98) % ABG Base Excess 6.3 H (-2.0-3.0) mmol/L ABG Potassium 4.0 (3.6-5.2) mmol/L Sodium 140.0 (132-148) mmol/L Chloride 106.0 (98-107) mmol/L Glucose 234 H (75-110) mg/dl Lactate 1.1 (0.7-2.1) mmol/L Mechanical Rate 14 FiO2 40.0 % Tidal Volume 400 PEEP 8 Potassium (3.6-5.0) mmol/L Carbon Dioxide (21-33) mmol/L Anion Gap (10-20) BUN (7-21) mg/dL Creatinine (0.8-1.5) mg/dl Est GFR ( Amer) Est GFR (Non-Af Amer) POC Glucose (mg/dL) 244 H (65-110) mg/dL Random Glucose (70-110) mg/dL Calcium (8.4-10.5) mg/dL Phosphorus (2.5-4.5) mg/dL Magnesium (1.7-2.2) mg/dL Total Bilirubin (0.2-1.3) mg/dL AST (17-59) U/L ALT (7-56) U/L Alkaline Phosphatase (38-126) U/L Total Protein (5.8-8.3) g/dL Albumin (3.0-4.8) g/dL Globulin gm/dL Albumin/Globulin Ratio (1.1-1.8) Procalcitonin (0.19-0.49) NG/ML Arterial Blood Potassium 4.0 (3.6-5.2) mmol/L Urine Color Dark yellow (YELLOW) Urine Appearance Clear (CLEAR) Urine pH 6.0 (4.7-8.0) Ur Specific Julian 1.020 (1.005-1.035) Urine Protein Trace H (<30 mg/dL) mg/dL Urine Glucose (UA) 100 H (NEGATIVE) mg/dL Urine Ketones Negative (NEGATIVE) mg/dL Urine Blood Moderate H (NEGATIVE) Urine Nitrate Negative (NEGATIVE) Urine Bilirubin Moderate H (NEGATIVE) Urine Urobilinogen 0.2 (<1 E.U./dL) E.U./dL Ur Leukocyte Esterase Trace H (NEGATIVE) Jacki/uL Urine RBC 5 - 10 (0-2) /hpf Urine WBC 2 - 5 (0-6) /hpf Ur Epithelial Cells 1 - 3 (0-5) /hpf Urine Bacteria Few (NEG) Hyaline Casts 0 - 2 /hpf 09/03/18 09/03/18 09/02/18 Range/Units 05:30 05:30 22:26 WBC 3.8 L (4.5-11.0) 10^3/uL RBC 3.29 L (3.5-6.1) 10^6/uL Hgb 9.9 L (14.0-18.0) g/dL Hct 31.2 L (42.0-52.0) % MCV 94.8 (80.0-105.0) fl MCH 30.1 (25.0-35.0) pg MCHC 31.7 (31.0-37.0) g/dl RDW 19.5 H (11.5-14.5) % Plt Count 88 L (120.0-450.0) 10^3/uL MPV 8.9 (7.0-11.0) fl pCO2 (35-45) mm/Hg pO2 (80-100) mm/Hg HCO3 (21-28) mmol/L ABG pH (7.35-7.45) ABG Total CO2 (22-28) mmol.L ABG O2 Saturation (95-98) % ABG Base Excess (-2.0-3.0) mmol/L ABG Potassium (3.6-5.2) mmol/L Sodium 140 (132-148) mmol/L Chloride 103 (98-107) mmol/L Glucose (75-110) mg/dl Lactate (0.7-2.1) mmol/L Mechanical Rate FiO2 % Tidal Volume PEEP Potassium 4.2 (3.6-5.0) mmol/L Carbon Dioxide 33 (21-33) mmol/L Anion Gap 8 L (10-20) BUN 49 H (7-21) mg/dL Creatinine 0.6 L (0.8-1.5) mg/dl Est GFR ( Amer) > 60 Est GFR (Non-Af Amer) > 60 POC Glucose (mg/dL) 221 H (65-110) mg/dL Random Glucose 194 H (70-110) mg/dL Calcium 7.8 L (8.4-10.5) mg/dL Phosphorus 3.3 (2.5-4.5) mg/dL Magnesium 2.1 (1.7-2.2) mg/dL Total Bilirubin 4.8 H (0.2-1.3) mg/dL AST 36 (17-59) U/L ALT 57 H (7-56) U/L Alkaline Phosphatase 67 (38-126) U/L Total Protein 4.5 L (5.8-8.3) g/dL Albumin 2.2 L (3.0-4.8) g/dL Globulin 2.3 gm/dL Albumin/Globulin Ratio 0.9 L (1.1-1.8) Procalcitonin (0.19-0.49) NG/ML Arterial Blood Potassium (3.6-5.2) mmol/L Urine Color (YELLOW) Urine Appearance (CLEAR) Urine pH (4.7-8.0) Ur Specific Julian (1.005-1.035) Urine Protein (<30 mg/dL) mg/dL Urine Glucose (UA) (NEGATIVE) mg/dL Urine Ketones (NEGATIVE) mg/dL Urine Blood (NEGATIVE) Urine Nitrate (NEGATIVE) Urine Bilirubin (NEGATIVE) Urine Urobilinogen (<1 E.U./dL) E.U./dL Ur Leukocyte Esterase (NEGATIVE) Jacki/uL Urine RBC (0-2) /hpf Urine WBC (0-6) /hpf Ur Epithelial Cells (0-5) /hpf Urine Bacteria (NEG) Hyaline Casts /hpf 09/02/18 09/02/18 09/02/18 Range/Units 17:05 12:05 11:55 WBC (4.5-11.0) 10^3/uL RBC (3.5-6.1) 10^6/uL Hgb (14.0-18.0) g/dL Hct (42.0-52.0) % MCV (80.0-105.0) fl MCH (25.0-35.0) pg MCHC (31.0-37.0) g/dl RDW (11.5-14.5) % Plt Count (120.0-450.0) 10^3/uL MPV (7.0-11.0) fl pCO2 (35-45) mm/Hg pO2 (80-100) mm/Hg HCO3 (21-28) mmol/L ABG pH (7.35-7.45) ABG Total CO2 (22-28) mmol.L ABG O2 Saturation (95-98) % ABG Base Excess (-2.0-3.0) mmol/L ABG Potassium (3.6-5.2) mmol/L Sodium (132-148) mmol/L Chloride (98-107) mmol/L Glucose (75-110) mg/dl Lactate (0.7-2.1) mmol/L Mechanical Rate FiO2 % Tidal Volume PEEP Potassium (3.6-5.0) mmol/L Carbon Dioxide (21-33) mmol/L Anion Gap (10-20) BUN (7-21) mg/dL Creatinine (0.8-1.5) mg/dl Est GFR ( Amer) Est GFR (Non-Af Amer) POC Glucose (mg/dL) 117 H 133 H (65-110) mg/dL Random Glucose (70-110) mg/dL Calcium (8.4-10.5) mg/dL Phosphorus (2.5-4.5) mg/dL Magnesium (1.7-2.2) mg/dL Total Bilirubin (0.2-1.3) mg/dL AST (17-59) U/L ALT (7-56) U/L Alkaline Phosphatase (38-126) U/L Total Protein (5.8-8.3) g/dL Albumin (3.0-4.8) g/dL Globulin gm/dL Albumin/Globulin Ratio (1.1-1.8) Procalcitonin 0.41 (0.19-0.49) NG/ML Arterial Blood Potassium (3.6-5.2) mmol/L Urine Color (YELLOW) Urine Appearance (CLEAR) Urine pH (4.7-8.0) Ur Specific Julian (1.005-1.035) Urine Protein (<30 mg/dL) mg/dL Urine Glucose (UA) (NEGATIVE) mg/dL Urine Ketones (NEGATIVE) mg/dL Urine Blood (NEGATIVE) Urine Nitrate (NEGATIVE) Urine Bilirubin (NEGATIVE) Urine Urobilinogen (<1 E.U./dL) E.U./dL Ur Leukocyte Esterase (NEGATIVE) Jacki/uL Urine RBC (0-2) /hpf Urine WBC (0-6) /hpf Ur Epithelial Cells (0-5) /hpf Urine Bacteria (NEG) Hyaline Casts /hpf 09/02/18 Range/Units 11:20 WBC (4.5-11.0) 10^3/uL RBC (3.5-6.1) 10^6/uL Hgb (14.0-18.0) g/dL Hct (42.0-52.0) % MCV (80.0-105.0) fl MCH (25.0-35.0) pg MCHC (31.0-37.0) g/dl RDW (11.5-14.5) % Plt Count (120.0-450.0) 10^3/uL MPV (7.0-11.0) fl pCO2 50 H (35-45) mm/Hg pO2 103.0 H (80-100) mm/Hg HCO3 29.6 H (21-28) mmol/L ABG pH 7.38 (7.35-7.45) ABG Total CO2 31.1 H (22-28) mmol.L ABG O2 Saturation 99.5 H (95-98) % ABG Base Excess 3.4 H (-2.0-3.0) mmol/L ABG Potassium 4.2 (3.6-5.2) mmol/L Sodium 138.0 (132-148) mmol/L Chloride 106.0 (98-107) mmol/L Glucose 144 H (75-110) mg/dl Lactate 1.1 (0.7-2.1) mmol/L Mechanical Rate 14 FiO2 40.0 % Tidal Volume 400 PEEP 8 Potassium (3.6-5.0) mmol/L Carbon Dioxide (21-33) mmol/L Anion Gap (10-20) BUN (7-21) mg/dL Creatinine (0.8-1.5) mg/dl Est GFR ( Amer) Est GFR (Non-Af Amer) POC Glucose (mg/dL) (65-110) mg/dL Random Glucose (70-110) mg/dL Calcium (8.4-10.5) mg/dL Phosphorus (2.5-4.5) mg/dL Magnesium (1.7-2.2) mg/dL Total Bilirubin (0.2-1.3) mg/dL AST (17-59) U/L ALT (7-56) U/L Alkaline Phosphatase (38-126) U/L Total Protein (5.8-8.3) g/dL Albumin (3.0-4.8) g/dL Globulin gm/dL Albumin/Globulin Ratio (1.1-1.8) Procalcitonin (0.19-0.49) NG/ML Arterial Blood Potassium 4.2 (3.6-5.2) mmol/L Urine Color (YELLOW) Urine Appearance (CLEAR) Urine pH (4.7-8.0) Ur Specific Julian (1.005-1.035) Urine Protein (<30 mg/dL) mg/dL Urine Glucose (UA) (NEGATIVE) mg/dL Urine Ketones (NEGATIVE) mg/dL Urine Blood (NEGATIVE) Urine Nitrate (NEGATIVE) Urine Bilirubin (NEGATIVE) Urine Urobilinogen (<1 E.U./dL) E.U./dL Ur Leukocyte Esterase (NEGATIVE) Jacki/uL Urine RBC (0-2) /hpf Urine WBC (0-6) /hpf Ur Epithelial Cells (0-5) /hpf Urine Bacteria (NEG) Hyaline Casts /hpf Laboratory Results - last 24 hr 09/02/18 09/02/18 09/02/18 11:20 11:55 12:05 WBC RBC Hgb Hct MCV MCH MCHC RDW Plt Count MPV pCO2 50 H pO2 103.0 H HCO3 29.6 H ABG pH 7.38 ABG Total CO2 31.1 H ABG O2 Saturation 99.5 H ABG Base Excess 3.4 H ABG Potassium 4.2 Sodium 138.0 Chloride 106.0 Glucose 144 H Lactate 1.1 Mechanical Rate 14 FiO2 40.0 Tidal Volume 400 PEEP 8 Potassium Carbon Dioxide Anion Gap BUN Creatinine Est GFR ( Amer) Est GFR (Non-Af Amer) POC Glucose (mg/dL) 133 H Random Glucose Calcium Phosphorus Magnesium Total Bilirubin AST ALT Alkaline Phosphatase Total Protein Albumin Globulin Albumin/Globulin Ratio Procalcitonin 0.41 Arterial Blood Potassium 4.2 Urine Color Urine Appearance Urine pH Ur Specific Julian Urine Protein Urine Glucose (UA) Urine Ketones Urine Blood Urine Nitrate Urine Bilirubin Urine Urobilinogen Ur Leukocyte Esterase Urine RBC Urine WBC Ur Epithelial Cells Urine Bacteria Hyaline Casts 09/02/18 09/02/18 09/03/18 17:05 22:26 05:30 WBC 3.8 L RBC 3.29 L Hgb 9.9 L Hct 31.2 L MCV 94.8 MCH 30.1 MCHC 31.7 RDW 19.5 H Plt Count 88 L MPV 8.9 pCO2 pO2 HCO3 ABG pH ABG Total CO2 ABG O2 Saturation ABG Base Excess ABG Potassium Sodium Chloride Glucose Lactate Mechanical Rate FiO2 Tidal Volume PEEP Potassium Carbon Dioxide Anion Gap BUN Creatinine Est GFR ( Amer) Est GFR (Non-Af Amer) POC Glucose (mg/dL) 117 H 221 H Random Glucose Calcium Phosphorus Magnesium Total Bilirubin AST ALT Alkaline Phosphatase Total Protein Albumin Globulin Albumin/Globulin Ratio Procalcitonin Arterial Blood Potassium Urine Color Urine Appearance Urine pH Ur Specific Julian Urine Protein Urine Glucose (UA) Urine Ketones Urine Blood Urine Nitrate Urine Bilirubin Urine Urobilinogen Ur Leukocyte Esterase Urine RBC Urine WBC Ur Epithelial Cells Urine Bacteria Hyaline Casts 09/03/18 09/03/18 09/03/18 05:30 07:24 08:00 WBC RBC Hgb Hct MCV MCH MCHC RDW Plt Count MPV pCO2 51 H pO2 125.0 H HCO3 32.3 H ABG pH 7.41 ABG Total CO2 33.9 H ABG O2 Saturation 100.1 H ABG Base Excess 6.3 H ABG Potassium 4.0 Sodium 140 140.0 Chloride 103 106.0 Glucose 234 H Lactate 1.1 Mechanical Rate 14 FiO2 40.0 Tidal Volume 400 PEEP 8 Potassium 4.2 Carbon Dioxide 33 Anion Gap 8 L BUN 49 H Creatinine 0.6 L Est GFR ( Amer) > 60 Est GFR (Non-Af Amer) > 60 POC Glucose (mg/dL) Random Glucose 194 H Calcium 7.8 L Phosphorus 3.3 Magnesium 2.1 Total Bilirubin 4.8 H AST 36 ALT 57 H Alkaline Phosphatase 67 Total Protein 4.5 L Albumin 2.2 L Globulin 2.3 Albumin/Globulin Ratio 0.9 L Procalcitonin Arterial Blood Potassium 4.0 Urine Color Dark yellow Urine Appearance Clear Urine pH 6.0 Ur Specific Julian 1.020 Urine Protein Trace H Urine Glucose (UA) 100 H Urine Ketones Negative Urine Blood Moderate H Urine Nitrate Negative Urine Bilirubin Moderate H Urine Urobilinogen 0.2 Ur Leukocyte Esterase Trace H Urine RBC 5 - 10 Urine WBC 2 - 5 Ur Epithelial Cells 1 - 3 Urine Bacteria Few Hyaline Casts 0 - 2 09/03/18 08:36 WBC RBC Hgb Hct MCV MCH MCHC RDW Plt Count MPV pCO2 pO2 HCO3 ABG pH ABG Total CO2 ABG O2 Saturation ABG Base Excess ABG Potassium Sodium Chloride Glucose Lactate Mechanical Rate FiO2 Tidal Volume PEEP Potassium Carbon Dioxide Anion Gap BUN Creatinine Est GFR ( Amer) Est GFR (Non-Af Amer) POC Glucose (mg/dL) 244 H Random Glucose Calcium Phosphorus Magnesium Total Bilirubin AST ALT Alkaline Phosphatase Total Protein Albumin Globulin Albumin/Globulin Ratio Procalcitonin Arterial Blood Potassium Urine Color Urine Appearance Urine pH Ur Specific Julian Urine Protein Urine Glucose (UA) Urine Ketones Urine Blood Urine Nitrate Urine Bilirubin Urine Urobilinogen Ur Leukocyte Esterase Urine RBC Urine WBC Ur Epithelial Cells Urine Bacteria Hyaline Casts Fingerstick Blood Sugar Results: 244 Critical Care Progress Note - Nutrition Nutrition: Nutrition Category Date Time Status NPO Diet [DIET] Diets 09/02/18 Lunch Ordered Assessment/Plan - Assessment and Plan (Free Text) Assessment: 82 y/o male s/p ex-lap and ileal perforation with VRE sepsis admitted to ICU for elective brochoscopy after failing chest PT while in the floor. Sedated /intubated. He is on Abx, bronchodilators, steroids, pressors. Vital signs stable. Plan: Neuro: -sedated, spontaneously moves extremities -maintain normothermia Pulm: -s/p elective brochoscopy due to failed chest PT. 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 clean, intact Renal: -I/O: 2766/110 -resolved renal failure Heme: -Chronic Thrombocytopenia -No signs of bleeding -H/H stable -Continue to monitor ID: - VRE+jagdeep tropicalis - continue Abx: meropenem, vancomycin - follow up cultures, UCx, BCx - Procal 0.4 Endo: -Maintain euglycemia Prophylaxis: - DVT ppx: Lovenox, SCD - GI ppx: NPO Started NG tube feeding Case reviewed and discussed with attending Dr Ludmila Shahid, DO, PGY1 <Yeni Keys - Last Filed: 09/03/18 16:08> CCU Objective - Vital Signs / Intake & Output Vital Signs (Last 4 hours): Vital Signs Pulse BP Pulse Ox 09/03/18 16:00 108/52 L 09/03/18 15:59 85 100 09/03/18 15:53 93 H 118/59 L 09/03/18 15:45 94 H 118/59 L 99 09/03/18 15:30 86 111/74 100 09/03/18 15:15 87 104/60 100 09/03/18 15:00 82 109/82 100 09/03/18 14:45 92 H 112/65 100 09/03/18 14:30 93 H 111/63 100 09/03/18 14:15 83 116/61 100 09/03/18 14:00 86 102/53 L 100 09/03/18 13:45 105/62 09/03/18 13:44 84 100 09/03/18 13:30 88 122/70 99 09/03/18 13:15 80 102/62 100 09/03/18 13:00 80 98/66 L 99 09/03/18 12:45 83 102/58 L 99 09/03/18 12:30 69 102/53 L 100 09/03/18 12:15 80 103/58 L 99 Intake and Output (Last 8hrs): Intake & Output 09/03/18 09/03/18 09/03/18 06:59 14:59 22:59 Intake Total 1561 95 Output Total 70 Balance 1491 95 Weight 57.969 kg Intake: IV 1211 95 Cardizem 60 Clinimix 996 Propofol 43 Oral 0 Tube Feeding 0 TPN/PPN 0 Blood Product 0 Lipid 0 Albumin 0 Other 350 Output: Drainage 70 Right Abdomen 70 - Medications Active Medications: Active Medications Generic Name Dose Route Start Last Admin Trade Name Freq PRN Reason Stop Dose Admin Acetylcysteine 4 ml 09/02/18 08:00 09/03/18 13:00 Acetylcysteine 20% IH 4 ml [id number] KD Administration Aspirin 81 mg 08/25/18 10:00 09/03/18 10:47 Ecotrin PO 81 mg DAILY KD Administration Budesonide 0.5 mg 08/13/18 08:00 09/03/18 07:32 Pulmicort Respules IH 0.5 mg [id number] KD Administration Clonidine HCl 1 patch 08/13/18 10:00 09/03/18 15:53 Catapres Tts1 0.1 Mg/24 Hr TD 1 patch Q7D@1000 KD Administration Dextrose 0 ml 08/20/18 08:47 Dextrose 50% Inj IV STAT PRN Hypoglycemia Protocol Protocol Famotidine 20 mg 08/21/18 10:00 09/03/18 10:47 Pepcid PO 20 mg DAILY KD Administration Dextrose 1,000 mls @ 0 mls/hr 08/20/18 08:47 Dextrose 5% In Water 1000 Ml IV .Q0M PRN Hypoglycemia Protocol Protocol Per Protocol Amino Acids/Electrolytes/Dextrose 2,000 mls @ 83 mls/hr 08/30/18 18:00 09/02/18 17:17 Clinimix 5/20 % "E" (2000 Ml) IV 09/06/18 17:59 83 mls/hr .Q24H KD Administration NOREPINEPHRINE BIT/0.9 % NACL 4 mg in 250 mls @ 15 mls/hr 09/02/18 09:00 09/02/18 18:00 Levophed 4 Mg/ 250 Ml Ns Premixed IV 0 mcg/min .[id number] PRN 0 mls/hr TITRATE PER MD ORDER Titration Protocol 4 MCG/MIN Propofol 1,000 mg in 100 mls @ 1.757 mls/hr 09/02/18 09:00 09/03/18 06:15 Diprivan IV 15 mcg/kg/min .Q24H PRN 5.27 mls/hr TITRATE PER MD ORDER Titration Protocol 5 MCG/KG/MIN Meropenem 1 gm in 50 mls @ 100 mls/hr 09/02/18 09:08 09/03/18 14:15 Merrem Iv 1 Gm Premix IVPB 09/11/18 09:09 100 mls/hr Q8 KD Administration Protocol Vancomycin HCl 1 gm in 250 mls @ 167 mls/hr 09/02/18 09:15 09/03/18 09:35 Vancomycin 1gm IVPB 09/11/18 09:16 167 mls/hr Q12H KD Administration Protocol diltiaZEM IVPB 100mg in NS 100 mls @ 10 mls/hr 09/02/18 09:16 09/03/18 15:50 Cardizem 100mg In Ns IV 15 mg/hr .Q10H PRN 15 mls/hr TITRATE PER MD ORDER Administration Protocol 10 MG/HR Insulin Human Regular 0 units 09/03/18 12:00 Humulin R Low SC Q6 KD Protocol Levalbuterol HCl 0.63 mg 08/18/18 08:00 09/03/18 12:59 Xopenex IH 0.63 mg [id number] KD Administration Lidocaine 1 ea 08/10/18 10:00 09/03/18 10:50 Lidoderm TD 1 ea DAILY KD Administration Metoprolol Tartrate 50 mg 08/29/18 17:00 09/03/18 10:47 Lopressor PO 50 mg [id number] KD Administration Prednisone 10 mg 08/27/18 10:00 09/01/18 09:25 Prednisone Tab PO 10 mg DAILY KD Administration Verapamil HCl 2.5 mg 08/31/18 09:03 Verapamil Inj IVP Q6H PRN for heart rate >130 Verapamil HCl 40 mg 09/01/18 10:00 09/01/18 17:56 Calan Tab PO 40 mg TID KD Administration - Patient Studies Lab Studies: Microbiology Studies 08/30/18 12:00 Gram Stain - Final Body Fluid - Abdominal Cavity Body Fluid Culture - Final No growth. 09/02/18 16:18 Mycobacterial Culture - Preliminary Other: Please Indicate 09/02/18 16:55 Mycobacterial Culture - Preliminary Other: Please Indicate 09/02/18 16:59 Mycobacterial Culture - Preliminary Other: Please Indicate 09/02/18 12:05 Blood Culture - Preliminary Blood NO GROWTH AFTER 24 HOURS 09/02/18 11:55 Blood Culture - Preliminary Blood NO GROWTH AFTER 24 HOURS 09/02/18 16:59 Gram Stain - Final Sputum 09/02/18 16:28 Gram Stain - Final Sputum 09/02/18 16:18 Gram Stain - Final Sputum 08/30/18 17:08 Gram Stain - Final Blood Transfusion Bag - Preliminary NO GROWTH AFTER 3 DAYS 08/30/18 16:15 Blood Culture - Preliminary Blood-Thru Central Line NO GROWTH AFTER 3 DAYS 08/30/18 16:15 Blood Culture - Preliminary Blood-Thru Central Line NO GROWTH AFTER 3 DAYS 08/30/18 05:00 Gram Stain - Final Body Fluid - Abdominal Cavity Body Fluid Culture - Final Jagdeep Tropicalis Lab Studies 09/03/18 09/03/18 09/03/18 Range/Units 11:37 08:36 08:00 WBC (4.5-11.0) 10^3/uL RBC (3.5-6.1) 10^6/uL Hgb (14.0-18.0) g/dL Hct (42.0-52.0) % MCV (80.0-105.0) fl MCH (25.0-35.0) pg MCHC (31.0-37.0) g/dl RDW (11.5-14.5) % Plt Count (120.0-450.0) 10^3/uL MPV (7.0-11.0) fl pCO2 (35-45) mm/Hg pO2 (80-100) mm/Hg HCO3 (21-28) mmol/L ABG pH (7.35-7.45) ABG Total CO2 (22-28) mmol.L ABG O2 Saturation (95-98) % ABG Base Excess (-2.0-3.0) mmol/L ABG Potassium (3.6-5.2) mmol/L Glucose (75-110) mg/dl Lactate (0.7-2.1) mmol/L Mechanical Rate FiO2 % Tidal Volume PEEP Sodium (132-148) mmol/L Potassium (3.6-5.0) mmol/L Chloride (98-107) mmol/L Carbon Dioxide (21-33) mmol/L Anion Gap (10-20) BUN (7-21) mg/dL Creatinine (0.8-1.5) mg/dl Est GFR ( Amer) Est GFR (Non-Af Amer) POC Glucose (mg/dL) 186 H 244 H (65-110) mg/dL Random Glucose (70-110) mg/dL Calcium (8.4-10.5) mg/dL Phosphorus (2.5-4.5) mg/dL Magnesium (1.7-2.2) mg/dL Total Bilirubin (0.2-1.3) mg/dL AST (17-59) U/L ALT (7-56) U/L Alkaline Phosphatase (38-126) U/L Total Protein (5.8-8.3) g/dL Albumin (3.0-4.8) g/dL Globulin gm/dL Albumin/Globulin Ratio (1.1-1.8) Procalcitonin (0.19-0.49) NG/ML Arterial Blood Potassium (3.6-5.2) mmol/L Urine Color Dark yellow (YELLOW) Urine Appearance Clear (CLEAR) Urine pH 6.0 (4.7-8.0) Ur Specific Julian 1.020 (1.005-1.035) Urine Protein Trace H (<30 mg/dL) mg/dL Urine Glucose (UA) 100 H (NEGATIVE) mg/dL Urine Ketones Negative (NEGATIVE) mg/dL Urine Blood Moderate H (NEGATIVE) Urine Nitrate Negative (NEGATIVE) Urine Bilirubin Moderate H (NEGATIVE) Urine Urobilinogen 0.2 (<1 E.U./dL) E.U./dL Ur Leukocyte Esterase Trace H (NEGATIVE) Jacki/uL Urine RBC 5 - 10 (0-2) /hpf Urine WBC 2 - 5 (0-6) /hpf Ur Epithelial Cells 1 - 3 (0-5) /hpf Urine Bacteria Few (NEG) Hyaline Casts 0 - 2 /hpf 09/03/18 09/03/18 09/03/18 Range/Units 07:24 05:30 05:30 WBC 3.8 L (4.5-11.0) 10^3/uL RBC 3.29 L (3.5-6.1) 10^6/uL Hgb 9.9 L (14.0-18.0) g/dL Hct 31.2 L (42.0-52.0) % MCV 94.8 (80.0-105.0) fl MCH 30.1 (25.0-35.0) pg MCHC 31.7 (31.0-37.0) g/dl RDW 19.5 H (11.5-14.5) % Plt Count 88 L (120.0-450.0) 10^3/uL MPV 8.9 (7.0-11.0) fl pCO2 51 H (35-45) mm/Hg pO2 125.0 H (80-100) mm/Hg HCO3 32.3 H (21-28) mmol/L ABG pH 7.41 (7.35-7.45) ABG Total CO2 33.9 H (22-28) mmol.L ABG O2 Saturation 100.1 H (95-98) % ABG Base Excess 6.3 H (-2.0-3.0) mmol/L ABG Potassium 4.0 (3.6-5.2) mmol/L Glucose 234 H (75-110) mg/dl Lactate 1.1 (0.7-2.1) mmol/L Mechanical Rate 14 FiO2 40.0 % Tidal Volume 400 PEEP 8 Sodium 140.0 140 (132-148) mmol/L Potassium 4.2 (3.6-5.0) mmol/L Chloride 106.0 103 (98-107) mmol/L Carbon Dioxide 33 (21-33) mmol/L Anion Gap 8 L (10-20) BUN 49 H (7-21) mg/dL Creatinine 0.6 L (0.8-1.5) mg/dl Est GFR ( Amer) > 60 Est GFR (Non-Af Amer) > 60 POC Glucose (mg/dL) (65-110) mg/dL Random Glucose 194 H (70-110) mg/dL Calcium 7.8 L (8.4-10.5) mg/dL Phosphorus 3.3 (2.5-4.5) mg/dL Magnesium 2.1 (1.7-2.2) mg/dL Total Bilirubin 4.8 H (0.2-1.3) mg/dL AST 36 (17-59) U/L ALT 57 H (7-56) U/L Alkaline Phosphatase 67 (38-126) U/L Total Protein 4.5 L (5.8-8.3) g/dL Albumin 2.2 L (3.0-4.8) g/dL Globulin 2.3 gm/dL Albumin/Globulin Ratio 0.9 L (1.1-1.8) Procalcitonin (0.19-0.49) NG/ML Arterial Blood Potassium 4.0 (3.6-5.2) mmol/L Urine Color (YELLOW) Urine Appearance (CLEAR) Urine pH (4.7-8.0) Ur Specific Julian (1.005-1.035) Urine Protein (<30 mg/dL) mg/dL Urine Glucose (UA) (NEGATIVE) mg/dL Urine Ketones (NEGATIVE) mg/dL Urine Blood (NEGATIVE) Urine Nitrate (NEGATIVE) Urine Bilirubin (NEGATIVE) Urine Urobilinogen (<1 E.U./dL) E.U./dL Ur Leukocyte Esterase (NEGATIVE) Jacki/uL Urine RBC (0-2) /hpf Urine WBC (0-6) /hpf Ur Epithelial Cells (0-5) /hpf Urine Bacteria (NEG) Hyaline Casts /hpf 09/02/18 09/02/18 09/02/18 Range/Units 22:26 17:05 12:05 WBC (4.5-11.0) 10^3/uL RBC (3.5-6.1) 10^6/uL Hgb (14.0-18.0) g/dL Hct (42.0-52.0) % MCV (80.0-105.0) fl MCH (25.0-35.0) pg MCHC (31.0-37.0) g/dl RDW (11.5-14.5) % Plt Count (120.0-450.0) 10^3/uL MPV (7.0-11.0) fl pCO2 (35-45) mm/Hg pO2 (80-100) mm/Hg HCO3 (21-28) mmol/L ABG pH (7.35-7.45) ABG Total CO2 (22-28) mmol.L ABG O2 Saturation (95-98) % ABG Base Excess (-2.0-3.0) mmol/L ABG Potassium (3.6-5.2) mmol/L Glucose (75-110) mg/dl Lactate (0.7-2.1) mmol/L Mechanical Rate FiO2 % Tidal Volume PEEP Sodium (132-148) mmol/L Potassium (3.6-5.0) mmol/L Chloride (98-107) mmol/L Carbon Dioxide (21-33) mmol/L Anion Gap (10-20) BUN (7-21) mg/dL Creatinine (0.8-1.5) mg/dl Est GFR ( Amer) Est GFR (Non-Af Amer) POC Glucose (mg/dL) 221 H 117 H (65-110) mg/dL Random Glucose (70-110) mg/dL Calcium (8.4-10.5) mg/dL Phosphorus (2.5-4.5) mg/dL Magnesium (1.7-2.2) mg/dL Total Bilirubin (0.2-1.3) mg/dL AST (17-59) U/L ALT (7-56) U/L Alkaline Phosphatase (38-126) U/L Total Protein (5.8-8.3) g/dL Albumin (3.0-4.8) g/dL Globulin gm/dL Albumin/Globulin Ratio (1.1-1.8) Procalcitonin 0.41 (0.19-0.49) NG/ML Arterial Blood Potassium (3.6-5.2) mmol/L Urine Color (YELLOW) Urine Appearance (CLEAR) Urine pH (4.7-8.0) Ur Specific Julian (1.005-1.035) Urine Protein (<30 mg/dL) mg/dL Urine Glucose (UA) (NEGATIVE) mg/dL Urine Ketones (NEGATIVE) mg/dL Urine Blood (NEGATIVE) Urine Nitrate (NEGATIVE) Urine Bilirubin (NEGATIVE) Urine Urobilinogen (<1 E.U./dL) E.U./dL Ur Leukocyte Esterase (NEGATIVE) Jacki/uL Urine RBC (0-2) /hpf Urine WBC (0-6) /hpf Ur Epithelial Cells (0-5) /hpf Urine Bacteria (NEG) Hyaline Casts /hpf 09/02/18 Range/Units 11:55 WBC (4.5-11.0) 10^3/uL RBC (3.5-6.1) 10^6/uL Hgb (14.0-18.0) g/dL Hct (42.0-52.0) % MCV (80.0-105.0) fl MCH (25.0-35.0) pg MCHC (31.0-37.0) g/dl RDW (11.5-14.5) % Plt Count (120.0-450.0) 10^3/uL MPV (7.0-11.0) fl pCO2 (35-45) mm/Hg pO2 (80-100) mm/Hg HCO3 (21-28) mmol/L ABG pH (7.35-7.45) ABG Total CO2 (22-28) mmol.L ABG O2 Saturation (95-98) % ABG Base Excess (-2.0-3.0) mmol/L ABG Potassium (3.6-5.2) mmol/L Glucose (75-110) mg/dl Lactate (0.7-2.1) mmol/L Mechanical Rate FiO2 % Tidal Volume PEEP Sodium (132-148) mmol/L Potassium (3.6-5.0) mmol/L Chloride (98-107) mmol/L Carbon Dioxide (21-33) mmol/L Anion Gap (10-20) BUN (7-21) mg/dL Creatinine (0.8-1.5) mg/dl Est GFR ( Amer) Est GFR (Non-Af Amer) POC Glucose (mg/dL) 133 H (65-110) mg/dL Random Glucose (70-110) mg/dL Calcium (8.4-10.5) mg/dL Phosphorus (2.5-4.5) mg/dL Magnesium (1.7-2.2) mg/dL Total Bilirubin (0.2-1.3) mg/dL AST (17-59) U/L ALT (7-56) U/L Alkaline Phosphatase (38-126) U/L Total Protein (5.8-8.3) g/dL Albumin (3.0-4.8) g/dL Globulin gm/dL Albumin/Globulin Ratio (1.1-1.8) Procalcitonin (0.19-0.49) NG/ML Arterial Blood Potassium (3.6-5.2) mmol/L Urine Color (YELLOW) Urine Appearance (CLEAR) Urine pH (4.7-8.0) Ur Specific Julian (1.005-1.035) Urine Protein (<30 mg/dL) mg/dL Urine Glucose (UA) (NEGATIVE) mg/dL Urine Ketones (NEGATIVE) mg/dL Urine Blood (NEGATIVE) Urine Nitrate (NEGATIVE) Urine Bilirubin (NEGATIVE) Urine Urobilinogen (<1 E.U./dL) E.U./dL Ur Leukocyte Esterase (NEGATIVE) Jacki/uL Urine RBC (0-2) /hpf Urine WBC (0-6) /hpf Ur Epithelial Cells (0-5) /hpf Urine Bacteria (NEG) Hyaline Casts /hpf Laboratory Results - last 24 hr 09/02/18 09/02/18 09/02/18 11:55 12:05 17:05 WBC RBC Hgb Hct MCV MCH MCHC RDW Plt Count MPV pCO2 pO2 HCO3 ABG pH ABG Total CO2 ABG O2 Saturation ABG Base Excess ABG Potassium Glucose Lactate Mechanical Rate FiO2 Tidal Volume PEEP Sodium Potassium Chloride Carbon Dioxide Anion Gap BUN Creatinine Est GFR ( Amer) Est GFR (Non-Af Amer) POC Glucose (mg/dL) 133 H 117 H Random Glucose Calcium Phosphorus Magnesium Total Bilirubin AST ALT Alkaline Phosphatase Total Protein Albumin Globulin Albumin/Globulin Ratio Procalcitonin 0.41 Arterial Blood Potassium Urine Color Urine Appearance Urine pH Ur Specific Julian Urine Protein Urine Glucose (UA) Urine Ketones Urine Blood Urine Nitrate Urine Bilirubin Urine Urobilinogen Ur Leukocyte Esterase Urine RBC Urine WBC Ur Epithelial Cells Urine Bacteria Hyaline Casts 09/02/18 09/03/18 09/03/18 22:26 05:30 05:30 WBC 3.8 L RBC 3.29 L Hgb 9.9 L Hct 31.2 L MCV 94.8 MCH 30.1 MCHC 31.7 RDW 19.5 H Plt Count 88 L MPV 8.9 pCO2 pO2 HCO3 ABG pH ABG Total CO2 ABG O2 Saturation ABG Base Excess ABG Potassium Glucose Lactate Mechanical Rate FiO2 Tidal Volume PEEP Sodium 140 Potassium 4.2 Chloride 103 Carbon Dioxide 33 Anion Gap 8 L BUN 49 H Creatinine 0.6 L Est GFR ( Amer) > 60 Est GFR (Non-Af Amer) > 60 POC Glucose (mg/dL) 221 H Random Glucose 194 H Calcium 7.8 L Phosphorus 3.3 Magnesium 2.1 Total Bilirubin 4.8 H AST 36 ALT 57 H Alkaline Phosphatase 67 Total Protein 4.5 L Albumin 2.2 L Globulin 2.3 Albumin/Globulin Ratio 0.9 L Procalcitonin Arterial Blood Potassium Urine Color Urine Appearance Urine pH Ur Specific Julian Urine Protein Urine Glucose (UA) Urine Ketones Urine Blood Urine Nitrate Urine Bilirubin Urine Urobilinogen Ur Leukocyte Esterase Urine RBC Urine WBC Ur Epithelial Cells Urine Bacteria Hyaline Casts 09/03/18 09/03/18 09/03/18 07:24 08:00 08:36 WBC RBC Hgb Hct MCV MCH MCHC RDW Plt Count MPV pCO2 51 H pO2 125.0 H HCO3 32.3 H ABG pH 7.41 ABG Total CO2 33.9 H ABG O2 Saturation 100.1 H ABG Base Excess 6.3 H ABG Potassium 4.0 Glucose 234 H Lactate 1.1 Mechanical Rate 14 FiO2 40.0 Tidal Volume 400 PEEP 8 Sodium 140.0 Potassium Chloride 106.0 Carbon Dioxide Anion Gap BUN Creatinine Est GFR ( Amer) Est GFR (Non-Af Amer) POC Glucose (mg/dL) 244 H Random Glucose Calcium Phosphorus Magnesium Total Bilirubin AST ALT Alkaline Phosphatase Total Protein Albumin Globulin Albumin/Globulin Ratio Procalcitonin Arterial Blood Potassium 4.0 Urine Color Dark yellow Urine Appearance Clear Urine pH 6.0 Ur Specific Julian 1.020 Urine Protein Trace H Urine Glucose (UA) 100 H Urine Ketones Negative Urine Blood Moderate H Urine Nitrate Negative Urine Bilirubin Moderate H Urine Urobilinogen 0.2 Ur Leukocyte Esterase Trace H Urine RBC 5 - 10 Urine WBC 2 - 5 Ur Epithelial Cells 1 - 3 Urine Bacteria Few Hyaline Casts 0 - 2 09/03/18 11:37 WBC RBC Hgb Hct MCV MCH MCHC RDW Plt Count MPV pCO2 pO2 HCO3 ABG pH ABG Total CO2 ABG O2 Saturation ABG Base Excess ABG Potassium Glucose Lactate Mechanical Rate FiO2 Tidal Volume PEEP Sodium Potassium Chloride Carbon Dioxide Anion Gap BUN Creatinine Est GFR ( Amer) Est GFR (Non-Af Amer) POC Glucose (mg/dL) 186 H Random Glucose Calcium Phosphorus Magnesium Total Bilirubin AST ALT Alkaline Phosphatase Total Protein Albumin Globulin Albumin/Globulin Ratio Procalcitonin Arterial Blood Potassium Urine Color Urine Appearance Urine pH Ur Specific Julian Urine Protein Urine Glucose (UA) Urine Ketones Urine Blood Urine Nitrate Urine Bilirubin Urine Urobilinogen Ur Leukocyte Esterase Urine RBC Urine WBC Ur Epithelial Cells Urine Bacteria Hyaline Casts Critical Care Progress Note - Nutrition Nutrition: Nutrition Category Date Time Status NPO Diet [DIET] Diets 09/02/18 Lunch Ordered Addendum Addendum: 09/03/18 16:08 MICU Attending Addendum: Patient seen and examined; Discussed with housestaff, agree with note above with the following additions and exceptions: 82 M with hx of rectal cancer s/p total colectomy, zenker's diverticulum, thrombocytopenia, stent placement for AAA, seizure disorder, hypertension, hyperlipidemia, atrial fibrillation on eliquis s/p polyp removal with parastomal hernia repair having recurrent lung collapse from mucus plugging now having required 3rd bronchoscopy this admission. Patient has been intubated several times for the bronch Recurrence likely because he is too weak to generate a strong enough cough to keep his airway clear will need life long aggrssive chest PT, vest, bronchodilators, aerobika therapy for now will need to discuss with family options as he will likely plug again it is not feasible to intubate him and bronch him over and over at this rate either he gets a trach and deep suction (bronch as needed) however during his mucus plugging events, he maintains his oxygenation and may benefit from more of a palliative approach in which he would not be intubated for these events. If he were to decompensate then comfort would be made a priority. Will have pal care see him and help understand his goals of care other issues include his afib RVR on cardizem drip OG tube placed - will resume PO cardizem as well as ASA cont anithypertensives via OGT cont chronic pred cont epiric abx rest of care above Yeni Keys MD PCC Attending Critical Care time: 31 mins
--- NOTE | 2018-09-03 12:34 | RAD ---
Date of service: 09/03/2018 PROCEDURE: Portable chest HISTORY: NG tube placement assessment COMPARISON: Earlier same day TECHNIQUE: FINDINGS: IMPRESSION: There is a nasogastric tube in satisfactory position in the gastric fundus. The study is otherwise unchanged
--- NOTE | 2018-09-03 12:57 | PN ---
PULMONARY PROGRESS NOTE DATE: 09/03/2018SUBJECTIVE: The patient was seen and examined in Intensive Care Unit on a ventilator. PHYSICAL EXAMINATION VITAL SIGNS: His current vital signs are as follows; his pulse is 107, respirations 20 on mechanical ventilator, pulse oximetry is 95% on 40% FIO2, and blood pressure is 148/79. HEENT: Head, normocephalic and atraumatic. NECK: Supple with no jugular vein distentions. CARDIOVASCULAR: S1 and S2. No S3. Irregular. PULMONARY: Markedly improved breath sounds in the left lung. Right lung is clear. GASTROINTESTINAL: Soft and nontender with no organomegaly. EXTREMITIES: No pedal edema. No cyanosis. SKIN: No acute skin rash. NEUROLOGIC: Deferred at the present time. LABORATORY DATA: I reviewed chest x-ray, which shows good expansion of left lung. ASSESSMENT: 1. Complete atelectasis of left lung, now resolved. 2. Respiratory failure. 3. Status post colon surgery for tumor. PLAN: I reviewed his arterial blood gas, which reveals, pH of 7.41, pCO2 of 51 and pO2 of 125. I have discussed his current status with the respiratory and ICU team, and attempt will be made to initiate weaning from mechanical ventilator; however, due to the history of recurrent complete atelectasis of left lung, consideration should be given to a tracheostomy, which will allow for better pulmonary toilet and prevention of recurrent left lung atelectasis. I have discussed with Dr. Blevins and we will discuss with ICU attendings. Krystian Obrien MD
--- NOTE | 2018-09-03 13:45 | US ---
HISTORY: Elevated direct bilirubin COMPARISON: None available. TECHNIQUE: Sonographic evaluation of the abdomen. FINDINGS: LIVER: Measures 14.8 cm in sagittal dimension. Echogenic liver may be seen in setting of hepatic parenchymal disease or fatty infiltration. No focal hepatic mass identified. The main portal vein appears patent with normal directional flow. No intrahepatic bile duct dilatation. Small ascites. GALLBLADDER: No gallstones. Gallbladder sludge. The gallbladder wall appears thickened measuring approximately 4 mm. Pericholecystic edema. Negative sonographic Yu's sign as assessed by the clay mine cutting machine operator. COMMON BILE DUCT: Measures 4 mm. PANCREAS: Not well visualized. RIGHT KIDNEY: Measures 10.4 x 4.8 x 5.5cm. No obstructing calculus or hydronephrosis identified. 7 x 4 x 6 mm echogenic focus with posterior acoustic shadowing consistent with nonobstructing calculus. LEFT KIDNEY: Measures 9.3 x 4.9 x 5.4cm. No obstructing calculus or hydronephrosis identified. SPLEEN: Measures approximately 10.1 cm. AORTA: Limited views appear unremarkable. IVC: Limited views appear unremarkable. OTHER FINDINGS: None. IMPRESSION: Echogenic liver may be seen in setting of hepatic parenchymal disease or fatty infiltration. Small ascites. Nonobstructing right renal calculus. Gallbladder sludge. Gallbladder wall thickening and evidence of pericholecystic edema. No gallstones identified. Negative sonographic Yu's sign as assessed by the clay mine cutting machine operator. Correlate clinically.
--- NOTE | 2018-09-03 16:24 | CP.PCM.PCO ---
Physician Communication Note - Physician Communication Note Physician Communication Note: Lung cleared/weaningRespirator/Familynotified of Trach need
--- NOTE | 2018-09-03 16:44 | CP.PCM.PN ---
Subjective - Date & Time of Evaluation Date of Evaluation: 09/03/18 Time of Evaluation: 07:00 - Subjective Subjective: Surgery: Dr. Du Patient remains intubated and sedated in ICU, s/p bronch for mucous plugging. NO acute events overnight. Objective - Vital Signs/Intake and Output Vital Signs (last 24 hours): Temp Pulse Resp BP Pulse Ox 97.4 F L 85 21 108/52 L 100 09/02/18 12:00 09/03/18 15:59 09/03/18 00:24 09/03/18 16:00 09/03/18 15:59 Intake and Output: 09/03/18 09/03/18 06:59 18:59 Intake Total 1656 95 Output Total 70 Balance 1586 95 - Medications Medications: Current Medications Acetylcysteine (Acetylcysteine 20%) 4 ml IH [id number] [facility] Last Admin: 09/03/18 13:00 Dose: 4 ml Aspirin (Ecotrin) 81 mg PO DAILY [facility] Last Admin: 09/03/18 10:47 Dose: 81 mg Budesonide (Pulmicort Respules) 0.5 mg IH [id number] [facility] Last Admin: 09/03/18 07:32 Dose: 0.5 mg Clonidine HCl (Catapres Tts1 0.1 Mg/24 Hr) 1 patch TD Q7D@1000 [facility] Last Admin: 09/03/18 15:53 Dose: 1 patch Dextrose (Dextrose 50% Inj) 0 ml IV STAT PRN; Protocol PRN Reason: Hypoglycemia Protocol Famotidine (Pepcid) 20 mg PO DAILY [facility] Last Admin: 09/03/18 10:47 Dose: 20 mg Dextrose (Dextrose 5% In Water 1000 Ml) 1,000 mls @ 0 mls/hr IV .Q0M PRN; Protocol PRN Reason: Hypoglycemia Protocol Amino Acids/Electrolytes/Dextrose (Clinimix 5/20 % "E" (2000 Ml)) 2,000 mls @ 83 mls/hr IV .Q24H [facility] Stop: 09/06/18 17:59 Last Admin: 09/02/18 17:17 Dose: 83 mls/hr NOREPINEPHRINE BIT/0.9 % NACL (Levophed 4 Mg/ 250 Ml Ns Premixed) 4 mg in 250 mls @ 15 mls/hr IV .[id number] PRN; Protocol PRN Reason: TITRATE PER MD ORDER Last Titration: 09/02/18 18:00 Dose: 0 mcg/min, 0 mls/hr Propofol (Diprivan) 1,000 mg in 100 mls @ 1.757 mls/hr IV .Q24H PRN; Protocol PRN Reason: TITRATE PER MD ORDER Last Titration: 09/03/18 06:15 Dose: 15 mcg/kg/min, 5.27 mls/hr Meropenem (Merrem Iv 1 Gm Premix) 1 gm in 50 mls @ 100 mls/hr IVPB Q8 KD; Protocol Stop: 09/11/18 09:09 Last Admin: 09/03/18 14:15 Dose: 100 mls/hr Vancomycin HCl (Vancomycin 1gm) 1 gm in 250 mls @ 167 mls/hr IVPB Q12H KD; Protocol Stop: 09/11/18 09:16 Last Admin: 09/03/18 09:35 Dose: 167 mls/hr diltiaZEM IVPB 100mg in NS (Cardizem 100mg In Ns) 100 mls @ 10 mls/hr IV .Q10H PRN; Protocol PRN Reason: TITRATE PER MD ORDER Last Admin: 09/03/18 15:50 Dose: 15 mg/hr, 15 mls/hr Insulin Human Regular (Humulin R Low) 0 units SC Q6 KD; Protocol Levalbuterol HCl (Xopenex) 0.63 mg IH [id number] [facility] Last Admin: 09/03/18 12:59 Dose: 0.63 mg Lidocaine (Lidoderm) 1 ea TD DAILY [facility] Last Admin: 09/03/18 10:50 Dose: 1 ea Metoprolol Tartrate (Lopressor) 50 mg PO BRKDIN [facility] Last Admin: 09/03/18 10:47 Dose: 50 mg Prednisone (Prednisone Tab) 10 mg PO DAILY [facility] Last Admin: 09/01/18 09:25 Dose: 10 mg Verapamil HCl (Verapamil Inj) 2.5 mg IVP Q6H PRN PRN Reason: for heart rate >130 Verapamil HCl (Calan Tab) 40 mg PO TID [facility] Last Admin: 09/01/18 17:56 Dose: 40 mg - Labs Labs: 09/03/18 05:30 09/03/18 05:30 PT 14.8 SECONDS (9.4-12.5) H 11/18/18 05:00 INR 1.28 08/29/18 05:00 APTT 30.3 Seconds (25.1-36.5) 08/29/18 05:00 - Constitutional Appears: Chronically Ill - Head Exam Head Exam: ATRAUMATIC, NORMOCEPHALIC Additional comments: opens eyes to verbal stimuli - ENT Exam ENT Exam: Mucous Membranes Moist Additional comments: ETT in place - Respiratory Exam Respiratory Exam: absent: Respiratory Distress Additional comments: mechanical vent 400/14/40/8 - Cardiovascular Exam Cardiovascular Exam: REGULAR RHYTHM. absent: Tachycardia - GI/Abdominal Exam GI & Abdominal Exam: Soft. absent: Distended, Tenderness, Rebound - Extremities Exam Extremities Exam: absent: Calf Tenderness, Normal Inspection - Skin Skin Exam: Dry, Warm Assessment and Plan - Assessment and Plan (Free Text) Assessment: 2M s/p ex lap w/ ileal perforation w/ VRE+ peritonitis now resolved, acutely deconditioned and malnourished with new left lung opacification s/p intubation and bronch Plan: Continue TPN, HHD, and supplements Continue to monitor ostomy and mayra output Continue aggressive PT IV Abx per ID F/u cultures for body fluids and VRE screen: body fluid cultures growing Reshma Daily labs Replete electrolytes as needed Further recommendations per Dr. Florian Osuna PGY4
[2018-09-04] MEDS: Insulin Reg-LOW-Coverage SC SCH ×4 (00:05→17:40)
[2018-09-04] MEDS: Levalbuterol 0.63 MG/3 ML Inhal Soln UD IH SCH ×5 (00:08→20:05)
[2018-09-04] MEDS: Acetylcysteine 20% Inhal Soln (4ml) IH SCH ×4 (01:38→20:05)
[2018-09-04] MEDS: diltiaZEM IVPB 100mg in NS 100 ML IV PRN ×2 (05:42→14:09)
[2018-09-04] MEDS: Propofol 10 mg/ml 1,000 MG/100 ML VIAL IV PRN (05:44)
[2018-09-04 05:45] LABS: ARTERIAL BLOOD GAS HCO3 30.6 mmol/L (21-28); ARTERIAL BLOOD GAS HEMOGLOBIN 9.6 g/dL (11.7-17.4); ARTERIAL BLOOD GAS O2 CAPACITY 13.3 mL/dl (16-24); ARTERIAL BLOOD GAS O2 CONTENT 13.2 ML/dl (15-23); ARTERIAL BLOOD GAS O2 SAT 99.6 % (95-98); ARTERIAL BLOOD GAS PCO2 53 mm/Hg (35-45); ARTERIAL BLOOD GAS PH 7.37 (7.35-7.45); ARTERIAL BLOOD GAS TCO2 32.2 mmol.L (22-28)
[2018-09-04] MEDS: Meropenem IV 1 gm in NS 1 GM/50 ML BAG IVPB SCH ×3 (05:46→21:53)
[2018-09-04 07:03] LABS: HEMOGLOBIN 9.7 g/dL (14.0-18.0); MEAN CELL VOLUME 97.5 fl (80.0-105.0); MEAN CORPUSCULAR HGB CONC 30.8 g/dl (31.0-37.0); MEAN PLATELET VOLUME 9.5 fl (7.0-11.0); RBC 3.23 10^6/uL (3.5-6.1); RED CELL DISTRIBUTION WIDTH 19.6 % (11.5-14.5); WHITE BLOOD COUNT 4.7 10^3/uL (4.5-11.0)
--- NOTE | 2018-09-04 07:13 | CP.PCM.PN ---
Subjective - Date & Time of Evaluation Date of Evaluation: 09/04/18 Time of Evaluation: 07:10 - Subjective Subjective: Surgery: Dr. Du Patient remains intubated and sedated in ICU. Responds to verbal stimuli with eye opening and upper extremity movement. No acute events overnight per nursing report. Tube feeds initiated and tolerated. Objective - Vital Signs/Intake and Output Vital Signs (last 24 hours): Temp Pulse Resp BP Pulse Ox 98.6 F 96 H 21 118/53 L 100 09/04/18 04:00 09/04/18 06:00 09/03/18 00:24 09/04/18 06:00 09/04/18 05:59 Intake and Output: 09/04/18 09/04/18 06:59 18:59 Intake Total 2296 Output Total 530 Balance 1766 - Medications Medications: Current Medications Acetylcysteine (Acetylcysteine 20%) 4 ml IH [id number] [facility] Last Admin: 09/04/18 01:38 Dose: 4 ml Aspirin (Ecotrin) 81 mg PO DAILY [facility] Last Admin: 09/03/18 10:47 Dose: 81 mg Budesonide (Pulmicort Respules) 0.5 mg IH [id number] [facility] Last Admin: 09/03/18 19:30 Dose: 0.5 mg Clonidine HCl (Catapres Tts1 0.1 Mg/24 Hr) 1 patch TD Q7D@1000 [facility] Last Admin: 09/03/18 15:53 Dose: 1 patch Dextrose (Dextrose 50% Inj) 0 ml IV STAT PRN; Protocol PRN Reason: Hypoglycemia Protocol Famotidine (Pepcid) 20 mg PO DAILY [facility] Last Admin: 09/03/18 10:47 Dose: 20 mg Dextrose (Dextrose 5% In Water 1000 Ml) 1,000 mls @ 0 mls/hr IV .Q0M PRN; Protocol PRN Reason: Hypoglycemia Protocol Amino Acids/Electrolytes/Dextrose (Clinimix 5/20 % "E" (2000 Ml)) 2,000 mls @ 83 mls/hr IV .Q24H [facility] Stop: 09/06/18 17:59 Last Admin: 09/03/18 18:00 Dose: 83 mls/hr NOREPINEPHRINE BIT/0.9 % NACL (Levophed 4 Mg/ 250 Ml Ns Premixed) 4 mg in 250 mls @ 15 mls/hr IV .[id number] PRN; Protocol PRN Reason: TITRATE PER MD ORDER Last Titration: 09/02/18 18:00 Dose: 0 mcg/min, 0 mls/hr Propofol (Diprivan) 1,000 mg in 100 mls @ 1.757 mls/hr IV .Q24H PRN; Protocol PRN Reason: TITRATE PER MD ORDER Last Admin: 09/04/18 05:44 Dose: 20 mcg/kg/min, 7.027 mls/hr Meropenem (Merrem Iv 1 Gm Premix) 1 gm in 50 mls @ 100 mls/hr IVPB Q8 KD; Protocol Stop: 09/11/18 09:09 Last Admin: 09/04/18 05:46 Dose: 100 mls/hr Vancomycin HCl (Vancomycin 1gm) 1 gm in 250 mls @ 167 mls/hr IVPB Q12H KD; Protocol Stop: 09/11/18 09:16 Last Admin: 09/03/18 09:35 Dose: 167 mls/hr diltiaZEM IVPB 100mg in NS (Cardizem 100mg In Ns) 100 mls @ 10 mls/hr IV .Q10H PRN; Protocol PRN Reason: TITRATE PER MD ORDER Last Admin: 09/04/18 05:42 Dose: 15 mg/hr, 15 mls/hr Insulin Human Regular (Humulin R Low) 0 units SC Q6 KD; Protocol Last Admin: 09/04/18 05:45 Dose: Not Given Levalbuterol HCl (Xopenex) 0.63 mg IH [id number] [facility] Last Admin: 09/04/18 01:38 Dose: 0.63 mg Lidocaine (Lidoderm) 1 ea TD DAILY [facility] Last Admin: 09/03/18 10:50 Dose: 1 ea Metoprolol Tartrate (Lopressor) 50 mg PO BRKDIN [facility] Last Admin: 09/03/18 17:00 Dose: 50 mg Prednisone (Prednisone Tab) 10 mg PO DAILY [facility] Last Admin: 09/03/18 10:00 Dose: 10 mg Verapamil HCl (Verapamil Inj) 2.5 mg IVP Q6H PRN PRN Reason: for heart rate >130 Verapamil HCl (Calan Tab) 40 mg PO TID [facility] Last Admin: 09/01/18 17:56 Dose: 40 mg - Labs Labs: 09/03/18 05:30 09/03/18 05:30 PT 14.8 SECONDS (9.4-12.5) H 08/29/18 05:00 INR 1.28 08/29/18 05:00 APTT 30.3 Seconds (25.1-36.5) 08/29/18 05:00 - Constitutional Appears: Chronically Ill - Head Exam Head Exam: ATRAUMATIC, NORMOCEPHALIC - ENT Exam ENT Exam: Mucous Membranes Moist Additional comments: ETT in place - Respiratory Exam Respiratory Exam: absent: Respiratory Distress Additional comments: PRVC 400/16/40/8 - Cardiovascular Exam Cardiovascular Exam: Irregular Rhythm. absent: Tachycardia - GI/Abdominal Exam GI & Abdominal Exam: Soft. absent: Distended, Tenderness Additional comments: incisions CDI, mayra w/ serous output ostomy functioning. - Extremities Exam Extremities Exam: Normal Inspection. absent: Calf Tenderness - Skin Skin Exam: Dry, Pallor, Warm Assessment and Plan - Assessment and Plan (Free Text) Assessment: 82M s/p ex lap w/ ileal perforation w/ VRE+ peritonitis now resolved, acutely deconditioned and malnourished with new left lung opacification s/p intubation and bronch Plan: Continue TPN and tube feeds Continue to monitor ostomy and mayra output Continue aggressive PT wean to extubate IV Abx per ID F/u cultures for body fluids and VRE screen: body fluid cultures growing Reshma Daily labs Replete electrolytes as needed Further recommendations per Dr. Florian Osuna PGY4
[2018-09-04 07:24] LABS: ALBUMIN 2.2 g/dL (3.0-4.8); ALT/SGPT 58 U/L (7-56); AST/SGOT 39 U/L (17-59); BLOOD UREA NITROGEN 56 mg/dL (7-21); GFR NON-AFRICAN AMERICAN > 60
--- NOTE | 2018-09-04 07:43 | PN ---
DATE: 09/04/2018 SUBJECTIVE: The patient is in bed, in no acute distress, nontoxic. No fevers. PHYSICAL EXAMINATION: VITAL SIGNS: On exam, temperature is 98, blood pressure is 118/50, respiratory rate of 18, heart rate of 96. HEENT: Examination of HEENT is the ET tube in place. NECK: Supple. LUNGS: Have decreased breath sounds. HEART: Normal S1, S2. ABDOMEN: Soft, nontender. LABORATORY DATA: Laboratory examination reveals a white count is 4.7, hemoglobin of 9, platelets of 91. Chemistries are noted. Urinalysis is noted. The patient's procalcitonin is reported to be 0.41. No acid fast was seen on the sputum smear. Cultures are pending. The patient had left lung atelectasis due to a mucus plug. Flexible bronchoscopy on 09/02/2018. This morning's chest x-ray is pending. Yesterday's, chest x-ray is reviewed. The patient had 2 x-rays yesterday and improved aeration of the left lung is noted. ASSESSMENT AND PLAN: This is an 82-year-old male on a long hospital stay with sepsis, status post ventilatory-dependent respiratory failure, perforated ileum, status post exploratory laparotomy, resection of the terminal ileum, primary anastomosis, had a vancomycin-resistant Enterococcus and Reshma tropicalis from the peritoneal fluid cultures, postoperative day #24. 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 New x-ray shows much improvement as per my discussion with Dr. Krystian Obrien. Currently, on vancomycin and meropenem with negative blood cultures. We are waiting for the bronchoscopy cultures and we will check on that. On vancomycin and meropenem day #3. The patient is also on prednisone. We will follow closely with you. Jason Garvin MD
[2018-09-04] MEDS: Budesonide 0.5 mg/2 ml Inhal Susp UD IH SCH ×2 (08:24→20:05)
--- NOTE | 2018-09-04 11:52 | PN ---
DATE: 09/04/2018 SUBJECTIVE: The patient is sedated on the ventilator at this time, he is on Diprivan and hemodynamically stable, not on pressors. The patient is getting TEN as well as TPN for nutrition. PHYSICAL EXAMINATION: VITAL SIGNS: His temperature is 98.6, pulse is 96, respirations are 18 and BP is 118/53. SKIN: Warm and dry. HEENT: Head is atraumatic, normocephalic. Eyes reactive to light. Ears, nose, and throat seemed to be within normal limits. NECK: Supple. No JVD. No thyroid enlargement or lymph nodes. HEART: Has regular rate and rhythm. Normal S1, S2. LUNGS: Reveal bilateral rhonchi. ABDOMEN: Soft. Decreased bowel sounds. GENITALIA: Deferred. RECTAL: Deferred. MUSCULOSKELETAL: No joint deformities. EXTREMITIES: Reveal 1+ lower extremity edema. NEUROLOGIC: He is sedated on the ventilator. LABORATORY DATA: Reveal a white count of 4.7, hemoglobin of 9.7, and hematocrit 31.5 with platelets of 91,000. Arterial blood gas reveals a pH of 7.37, pCO2 of 53, pO2 of 105. His sodium is 141, potassium 4.6, chloride 104, CO2 of 33 with a BUN of 56, creatinine 0.6 and a glucose of 196. Chest x-ray is pending. IMPRESSION: This patient has respiratory failure with hypercapnia on the ventilator. He has recurrent mucus plugging and episodes of sepsis. The patient is requiring ventilator support and FIO2 of 40%. He is status post bowel perforation with an exploratory lap. 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 PLAN: We will continue with Mucomyst 20% every 6 hours via respiratory. The patient is getting clonidine as well as diltiazem and will continue with his aspirin, insulin, metoprolol, and he is getting meropenem for antibiotics. The patient is getting Pepcid as well as prednisone and propofol for his sedation. We will continue with the Pulmicort and vancomycin, his verapamil and his Xopenex as well. Discussion has occurred about possible tracheostomy for this patient; surgery and the PMD as well as the family will make that decision. This is Dr. De La Torre ending an drying room supervisor note for Mr. Roshan Hale at [facility]. Wilian De La Torre MD
[2018-09-04] MEDS: Lidocaine 5% Patch TD SCH (12:14)
--- NOTE | 2018-09-04 12:24 | PN ---
DATE: 09/04/2018 SUBJECTIVE: The patient is an 82-year-old, seen and examined. The patient is sedated on vent, does not seem to be in any distress. PHYSICAL EXAMINATION: VITAL SIGNS: He is afebrile, pulse 99, respirations 18, blood pressure 119/59. LUNGS: Bilateral fair airflow. HEART: S1, S2 audible. Irregular rate, but controlled. ABDOMEN: Soft. Colostomy functional. Drain has straw color fluid. The patient is currently on TPN and nasogastric feeding. LABORATORY EXAMINATION: WBC is 4.7, hemoglobin 9.7, hematocrit 31.5, platelets 91,000. Chemistry: Sodium 141, potassium 4.6, chloride 104, CO2 of 33, BUN 56, creatinine 0.6, blood sugar of 200. T-bili 3.8. Sputum culture negative. Blood cultures are negative. X-ray chest done yesterday shows improved aeration. ASSESSMENT: 1. Status post nephrectomy, earlier resection, and right hemicolectomy. 2. History of hypertension. 3. Chronic atrial fibrillation. 4. Thrombocytopenia. 5. Seizure disorder. 6. Status post respiratory failure. 7. Malnutrition. PLAN: The patient's total intake in the last 24 hours this morning was 2196 and output is 530. The patient is holding his blood pressure. Gave him a dose of Lasix. Follow up the patient in the a.m. Tri Fleming MD
--- NOTE | 2018-09-04 16:49 | RAD ---
HISTORY: f/u COMPARISON: Chest x-ray performed 09/03/18. TECHNIQUE: Chest, one view. FINDINGS: Endotracheal tube, left-sided PICC, and right IJ approach central venous catheter appear in satisfactory position. Dobbhoff tube extends expected location of the stomach. LUNGS: Pulmonary venous congestion. Mild patchy scattered atelectasis/infiltrates. Small left greater than right pleural effusions. No definite pneumothorax. CARDIOVASCULAR: Cardiomegaly. Dense atherosclerotic calcification present. Partially imaged partially imaged aortic stent. OSSEOUS STRUCTURES: Osseous demineralization. Degenerative changes. VISUALIZED UPPER ABDOMEN: Unremarkable. OTHER FINDINGS: None. IMPRESSION: Pulmonary venous congestion. Mild patchy scattered atelectasis/infiltrates. Small left greater than right pleural effusions. Cardiomegaly. Endotracheal tube, left-sided PICC, and right IJ approach central venous catheter appear in satisfactory position. Dobbhoff tube extends expected location of the stomach.
--- NOTE | 2018-09-04 22:56 | PN ---
DATE: 09/04/[address] Greenfield. SUBJECTIVE: The patient is currently sedated on ventilator, on Cardizem infusion at 10 mg per hour, which was recently reduced from 15 mg per hour. PHYSICAL EXAMINATION: VITAL SIGNS: Blood pressure 111/55, heart rate 102, and temperature 100.7. HEENT: Pale conjunctiva. CHEST: Diffuse bilateral rhonchi. HEART: S1, S2 regular. EXTREMITIES: 1+ edema. LABORATORY EXAMINATION: Today's SMA-7: Sodium 141, potassium 4.6, chloride 104, CO2 33, glucose 200, BUN 56, and creatinine 0.6. Today's hemoglobin and hematocrit are 9.7 and 31.5, white count 4.7, and platelet count 91,000. Today's chest x-ray report, pulmonary venous congestion, mild patchy scattered atelectasis/infiltrates, small left greater than right pleural effusion. ASSESSMENT: 1. Chronic atrial fibrillation. 2. Status post right hemicolectomy for villous adenoma. 3. Status post left lung collapse with mucous plug, requiring bronchoscopy. 4. History of endovascular repair of abdominal aortic aneurysm. 5. Status post surgical repair of small bowel perforation with resection and end-to-end anastomosis. RECOMMENDATIONS: Continue current Cardizem infusion 10 mg per hour. Continue clonidine patch at 0.1 mg weekly, aspirin 81 mg daily, meropenem at 1 g intravenously every 8 hours, vancomycin 1 g intravenously every 12 hours. Delfin Oconnell MD
--- NOTE | 2018-09-04 23:16 | CP.PCM.PN ---
Subjective - Date & Time of Evaluation Date of Evaluation: 09/04/18 Time of Evaluation: 12:00 - Subjective Subjective: pt. is sedated, intubated. Daughter bedside. No events overnight. Objective - Vital Signs/Intake and Output Vital Signs (last 24 hours): Temp Pulse Resp BP Pulse Ox 97.5 F L 110 H 18 114/59 L 100 09/04/18 20:00 09/04/18 20:00 09/04/18 20:00 09/04/18 20:00 09/04/18 20:00 Intake and Output: 09/04/18 09/05/18 18:59 06:59 Intake Total 903 Output Total 565 Balance 338 - Medications Medications: Current Medications Acetylcysteine (Acetylcysteine 20%) 4 ml IH [id number] [facility] Last Admin: 09/04/18 20:05 Dose: Not Given Aspirin (Ecotrin) 81 mg PO DAILY [facility] Last Admin: 09/04/18 10:55 Dose: 81 mg Budesonide (Pulmicort Respules) 0.5 mg IH [id number] [facility] Last Admin: 09/04/18 20:05 Dose: 0.5 mg Clonidine HCl (Catapres Tts1 0.1 Mg/24 Hr) 1 patch TD Q7D@1000 [facility] Last Admin: 09/03/18 15:53 Dose: 1 patch Dextrose (Dextrose 50% Inj) 0 ml IV STAT PRN; Protocol PRN Reason: Hypoglycemia Protocol Famotidine (Pepcid) 20 mg PO DAILY [facility] Last Admin: 09/04/18 10:55 Dose: 20 mg Dextrose (Dextrose 5% In Water 1000 Ml) 1,000 mls @ 0 mls/hr IV .Q0M PRN; Protocol PRN Reason: Hypoglycemia Protocol NOREPINEPHRINE BIT/0.9 % NACL (Levophed 4 Mg/ 250 Ml Ns Premixed) 4 mg in 250 mls @ 15 mls/hr IV .[id number] PRN; Protocol PRN Reason: TITRATE PER MD ORDER Last Titration: 09/02/18 18:00 Dose: 0 mcg/min, 0 mls/hr Propofol (Diprivan) 1,000 mg in 100 mls @ 1.757 mls/hr IV .Q24H PRN; Protocol PRN Reason: TITRATE PER MD ORDER Last Admin: 09/04/18 05:44 Dose: 20 mcg/kg/min, 7.027 mls/hr Meropenem (Merrem Iv 1 Gm Premix) 1 gm in 50 mls @ 100 mls/hr IVPB Q8 KD; Protocol Stop: 09/11/18 09:09 Last Admin: 09/04/18 14:08 Dose: 100 mls/hr Vancomycin HCl (Vancomycin 1gm) 1 gm in 250 mls @ 167 mls/hr IVPB Q12H KD; Protocol Stop: 09/11/18 09:16 Last Admin: 09/03/18 09:35 Dose: 167 mls/hr diltiaZEM IVPB 100mg in NS (Cardizem 100mg In Ns) 100 mls @ 10 mls/hr IV .Q10H PRN; Protocol PRN Reason: TITRATE PER MD ORDER Last Admin: 09/04/18 14:09 Dose: 10 mg/hr, 10 mls/hr Acetaminophen (Ofirmev) 1,000 mg in 100 mls @ 400 mls/hr IVPB Q6H PRN PRN Reason: Temperature Stop: 09/06/18 16:13 Last Admin: 09/04/18 16:21 Dose: 400 mls/hr Insulin Human Regular (Humulin R Low) 0 units SC Q6 KD; Protocol Last Admin: 09/04/18 17:40 Dose: Not Given Levalbuterol HCl (Xopenex) 0.63 mg IH [id number] [facility] Last Admin: 09/04/18 20:05 Dose: 0.63 mg Lidocaine (Lidoderm) 1 ea TD DAILY [facility] Last Admin: 09/04/18 12:14 Dose: Not Given Metoprolol Tartrate (Lopressor) 50 mg PO BRKDIN [facility] Last Admin: 09/04/18 17:42 Dose: Not Given Prednisone (Prednisone Tab) 10 mg PO DAILY [facility] Last Admin: 09/04/18 10:55 Dose: 10 mg Verapamil HCl (Verapamil Inj) 2.5 mg IVP Q6H PRN PRN Reason: for heart rate >130 Verapamil HCl (Calan Tab) 40 mg PO TID [facility] Last Admin: 09/01/18 17:56 Dose: 40 mg - Labs Labs: 09/04/18 06:20 09/04/18 06:20 PT 14.8 SECONDS (9.4-12.5) H 08/29/18 05:00 INR 1.28 08/29/18 05:00 APTT 30.3 Seconds (25.1-36.5) 08/29/18 05:00 - Constitutional Appears: Chronically Ill - Head Exam Head Exam: ATRAUMATIC, NORMAL INSPECTION, NORMOCEPHALIC - Eye Exam Eye Exam: Normal appearance - ENT Exam ENT Exam: Mucous Membranes Dry - Neck Exam Neck Exam: Normal Inspection - Respiratory Exam Additional comments: intubated - Cardiovascular Exam Cardiovascular Exam: REGULAR RHYTHM, +S1, +S2 - GI/Abdominal Exam GI & Abdominal Exam: Soft, Normal Bowel Sounds - Extremities Exam Extremities Exam: Normal Inspection - Back Exam Back Exam: NORMAL INSPECTION - Neurological Exam Additional comments: sedated - Skin Skin Exam: Pallor, Warm Assessment and Plan - Assessment and Plan (Free Text) Assessment: ASSESSMENT: 1. Status post ileal perforation, status post exploratory laparotomy. 2. Vancomycin-resistant Enterococcus peritonitis, resolved. 3. Deconditioning. 4. respiratory failure. 5. Thrombocytopenia, anemia 6. jaundice. PLAN: he is sedated, intubated. Currently on IV antibiotic, meropenem and vancomycin. Blood count: Stable . LFTs showed elevated bilirubin daughter bedside. Had lots of questions. answered all to her satisfaction. Discussed with staff nurse. Poor prognosis.
[2018-09-05] MEDS: Insulin Reg-LOW-Coverage SC SCH ×4 (00:10→18:00)
[2018-09-05] MEDS: Levalbuterol 0.63 MG/3 ML Inhal Soln UD IH SCH ×4 (02:30→19:41)
[2018-09-05] MEDS: Meropenem IV 1 gm in NS 1 GM/50 ML BAG IVPB SCH ×3 (06:56→21:19)
[2018-09-05 07:37] LABS: ALBUMIN 2.4 g/dL (3.0-4.8)
--- NOTE | 2018-09-05 07:39 | CP.PCM.PN ---
<Brady Sanchez - Last Filed: 09/05/18 07:42> Subjective - Date & Time of Evaluation Date of Evaluation: 09/05/18 Time of Evaluation: 07:32 - Subjective Subjective: Surgery- Dr. Du Patient seen and examined at bedside. Patient intubated on PRVC, sedated on 20 propofol. Moves all 4 extremities. Currently in A.Fib, baseline tachycardia on Cardizem ggt. s/p Bronch for mucous plug. Fabian drain in place w/ serous drainage, ostomy pink patent with liquid stool output. Remains on TPN. No acute events overnight per nursing. PICC and TLC in place. IVAbx Objective - Vital Signs/Intake and Output Vital Signs (last 24 hours): Temp Pulse Resp BP Pulse Ox 98.6 F 102 H 14 153/79 H 100 09/05/18 04:00 09/05/18 06:00 09/05/18 04:00 09/05/18 04:00 09/05/18 04:00 Intake and Output: 09/05/18 09/05/18 06:59 18:59 Intake Total 304 Output Total 455 Balance -151 - Medications Medications: Current Medications Acetylcysteine (Acetylcysteine 20%) 4 ml IH [id number] [facility] Last Admin: 09/04/18 20:05 Dose: Not Given Aspirin (Ecotrin) 81 mg PO DAILY [facility] Last Admin: 09/04/18 10:55 Dose: 81 mg Budesonide (Pulmicort Respules) 0.5 mg IH [id number] [facility] Last Admin: 09/04/18 20:05 Dose: 0.5 mg Clonidine HCl (Catapres Tts1 0.1 Mg/24 Hr) 1 patch TD Q7D@1000 [facility] Last Admin: 09/03/18 15:53 Dose: 1 patch Dextrose (Dextrose 50% Inj) 0 ml IV STAT PRN; Protocol PRN Reason: Hypoglycemia Protocol Famotidine (Pepcid) 20 mg PO DAILY [facility] Last Admin: 09/04/18 10:55 Dose: 20 mg Dextrose (Dextrose 5% In Water 1000 Ml) 1,000 mls @ 0 mls/hr IV .Q0M PRN; Protocol PRN Reason: Hypoglycemia Protocol NOREPINEPHRINE BIT/0.9 % NACL (Levophed 4 Mg/ 250 Ml Ns Premixed) 4 mg in 250 mls @ 15 mls/hr IV .[id number] PRN; Protocol PRN Reason: TITRATE PER MD ORDER Last Titration: 09/02/18 18:00 Dose: 0 mcg/min, 0 mls/hr Propofol (Diprivan) 1,000 mg in 100 mls @ 1.757 mls/hr IV .Q24H PRN; Protocol PRN Reason: TITRATE PER MD ORDER Last Admin: 09/04/18 05:44 Dose: 20 mcg/kg/min, 7.027 mls/hr Meropenem (Merrem Iv 1 Gm Premix) 1 gm in 50 mls @ 100 mls/hr IVPB Q8 KD; Protocol Stop: 09/11/18 09:09 Last Admin: 09/05/18 06:56 Dose: 100 mls/hr Vancomycin HCl (Vancomycin 1gm) 1 gm in 250 mls @ 167 mls/hr IVPB Q12H KD; Protocol Stop: 09/11/18 09:16 Last Admin: 09/03/18 09:35 Dose: 167 mls/hr diltiaZEM IVPB 100mg in NS (Cardizem 100mg In Ns) 100 mls @ 10 mls/hr IV .Q10H PRN; Protocol PRN Reason: TITRATE PER MD ORDER Last Admin: 09/04/18 14:09 Dose: 10 mg/hr, 10 mls/hr Acetaminophen (Ofirmev) 1,000 mg in 100 mls @ 400 mls/hr IVPB Q6H PRN PRN Reason: Temperature Stop: 09/06/18 16:13 Last Admin: 09/04/18 16:21 Dose: 400 mls/hr Insulin Human Regular (Humulin R Low) 0 units SC Q6 KD; Protocol Last Admin: 09/05/18 06:55 Dose: Not Given Levalbuterol HCl (Xopenex) 0.63 mg IH [id number] [facility] Last Admin: 09/05/18 02:30 Dose: 0.63 mg Lidocaine (Lidoderm) 1 ea TD DAILY [facility] Last Admin: 09/04/18 12:14 Dose: Not Given Metoprolol Tartrate (Lopressor) 50 mg PO BRKDIN [facility] Last Admin: 09/04/18 17:42 Dose: Not Given Prednisone (Prednisone Tab) 10 mg PO DAILY [facility] Last Admin: 09/04/18 10:55 Dose: 10 mg Verapamil HCl (Verapamil Inj) 2.5 mg IVP Q6H PRN PRN Reason: for heart rate >130 Verapamil HCl (Calan Tab) 40 mg PO TID [facility] Last Admin: 09/01/18 17:56 Dose: 40 mg - Labs Labs: 09/04/18 06:20 09/04/18 06:20 PT 14.8 SECONDS (9.4-12.5) H 08/29/18 05:00 INR 1.28 08/29/18 05:00 APTT 30.3 Seconds (25.1-36.5) 08/29/18 05:00 - Constitutional Appears: Non-toxic, No Acute Distress, Chronically Ill - Head Exam Head Exam: ATRAUMATIC - Eye Exam Eye Exam: EOMI. absent: Scleral icterus - ENT Exam ENT Exam: Mucous Membranes Moist - Respiratory Exam Respiratory Exam: absent: Accessory Muscle Use, Respiratory Distress Additional comments: Intubated on PRVC - Cardiovascular Exam Cardiovascular Exam: Tachycardia, Irregular Rhythm, +S1, +S2. absent: Bradycardia - GI/Abdominal Exam GI & Abdominal Exam: Soft. absent: Firm, Guarding, Rigid, Tenderness Additional comments: Fabian in place to gravity w/ serous drainage Ostomy [place] and patent with liquid stool output - Extremities Exam Extremities Exam: absent: Calf Tenderness, Joint Swelling - Neurological Exam Neurological Exam: Awake Additional comments: Moves all 4 extremities - Skin Skin Exam: Dry, Warm Assessment and Plan - Assessment and Plan (Free Text) Assessment: 82M s/p ex lap w/ ileal perforation w/ VRE+ peritonitis now resolved, acutely deconditioned and malnourished with new left lung opacification s/p intubation and bronch Plan: Vent weaning per ICU Continue TPN and tube feeds Continue to monitor ostomy and fabian output Continue aggressive PT IV Abx per ID F/u cultures for body fluids and VRE screen: body fluid cultures growing Reshma Daily labs Replete electrolytes PRN Further recommendations per Dr. Florian Sanchez PGY2 <Rocael Du - Last Filed: 09/05/18 20:25> Objective - Vital Signs/Intake and Output Vital Signs (last 24 hours): Temp Pulse Resp BP Pulse Ox 101 F H 90 14 116/83 88 L 09/05/18 16:00 09/05/18 17:59 09/05/18 04:00 09/05/18 18:00 09/05/18 17:00 Intake and Output: 09/05/18 09/06/18 18:59 06:59 Intake Total 1154 Output Total 1100 Balance 54 - Medications Medications: Current Medications Acetylcysteine (Acetylcysteine 20%) 4 ml IH [id number] [facility] Last Admin: 09/04/18 20:05 Dose: Not Given Aspirin (Aspirin Chewable) 81 mg PO DAILY [facility] Last Admin: 09/05/18 13:24 Dose: 81 mg Budesonide (Pulmicort Respules) 0.5 mg IH [id number] [facility] Last Admin: 09/05/18 19:41 Dose: 0.5 mg Clonidine HCl (Catapres Tts1 0.1 Mg/24 Hr) 1 patch TD Q7D@1000 [facility] Last Admin: 09/03/18 15:53 Dose: 1 patch Dextrose (Dextrose 50% Inj) 0 ml IV STAT PRN; Protocol PRN Reason: Hypoglycemia Protocol Dextrose (Dextrose 50% Inj) 0 ml IV STAT PRN; Protocol PRN Reason: Hypoglycemia Protocol Famotidine (Pepcid) 20 mg PO DAILY [facility] Last Admin: 09/05/18 10:50 Dose: 20 mg Dextrose (Dextrose 5% In Water 1000 Ml) 1,000 mls @ 0 mls/hr IV .Q0M PRN; Protocol PRN Reason: Hypoglycemia Protocol NOREPINEPHRINE BIT/0.9 % NACL (Levophed 4 Mg/ 250 Ml Ns Premixed) 4 mg in 250 mls @ 15 mls/hr IV .[id number] PRN; Protocol PRN Reason: TITRATE PER MD ORDER Last Titration: 09/02/18 18:00 Dose: 0 mcg/min, 0 mls/hr Propofol (Diprivan) 1,000 mg in 100 mls @ 1.757 mls/hr IV .Q24H PRN; Protocol PRN Reason: TITRATE PER MD ORDER Last Admin: 09/04/18 05:44 Dose: 20 mcg/kg/min, 7.027 mls/hr Meropenem (Merrem Iv 1 Gm Premix) 1 gm in 50 mls @ 100 mls/hr IVPB Q8 KD; Protocol Stop: 09/11/18 09:09 Last Admin: 09/05/18 13:24 Dose: 100 mls/hr diltiaZEM IVPB 100mg in NS (Cardizem 100mg In Ns) 100 mls @ 10 mls/hr IV .Q10H PRN; Protocol PRN Reason: TITRATE PER MD ORDER Last Admin: 09/05/18 10:55 Dose: 10 mg/hr, 10 mls/hr Acetaminophen (Ofirmev) 1,000 mg in 100 mls @ 400 mls/hr IVPB Q6H PRN PRN Reason: Temperature Stop: 09/06/18 16:13 Last Admin: 09/04/18 16:21 Dose: 400 mls/hr Dextrose (Dextrose 5% In Water 1000 Ml) 1,000 mls @ 0 mls/hr IV .Q0M PRN; Protocol PRN Reason: Hypoglycemia Protocol Insulin Human Regular (Humulin R Low) 0 units SC Q6 KD; Protocol Last Admin: 09/05/18 18:00 Dose: Not Given Levalbuterol HCl (Xopenex) 0.63 mg IH [id number] [facility] Last Admin: 09/05/18 19:41 Dose: 0.63 mg Lidocaine (Lidoderm) 1 ea TD DAILY [facility] Last Admin: 09/05/18 10:52 Dose: Not Given Metoprolol Tartrate (Lopressor) 50 mg PO BRKDIN [facility] Last Admin: 09/05/18 17:39 Dose: 50 mg Prednisone (Prednisone Tab) 10 mg PO DAILY [facility] Last Admin: 09/05/18 10:54 Dose: 10 mg Verapamil HCl (Verapamil Inj) 2.5 mg IVP Q6H PRN PRN Reason: for heart rate >130 Verapamil HCl (Calan Tab) 40 mg PO TID [facility] Last Admin: 09/01/18 17:56 Dose: 40 mg - Labs Labs: 09/05/18 07:00 09/05/18 07:00 PT 14.8 SECONDS (9.4-12.5) H 08/29/18 05:00 INR 1.28 08/29/18 05:00 APTT 30.3 Seconds (25.1-36.5) 08/29/18 05:00 Assessment and Plan - Assessment and Plan (Free Text) Plan: K 5.8 Rx Kayexelate Unable to wean now-Trach recommended to family(?OR AM) Kiko Du MD FACS
[2018-09-05 08:00] LABS: HEMOGLOBIN 11.4 g/dL (14.0-18.0); MEAN CELL VOLUME 96.3 fl (80.0-105.0); MEAN CORPUSCULAR HEMOGLOBIN 30.1 pg (25.0-35.0); MEAN CORPUSCULAR HGB CONC 31.2 g/dl (31.0-37.0); MEAN PLATELET VOLUME 10.1 fl (7.0-11.0); RBC 3.79 10^6/uL (3.5-6.1); WHITE BLOOD COUNT 8.4 10^3/uL (4.5-11.0)
[2018-09-05 08:31] LABS: ALT/SGPT 78 U/L (7-56); AST/SGOT 52 U/L (17-59); BLOOD UREA NITROGEN 81 mg/dL (7-21); CALCIUM 8.2 mg/dL (8.4-10.5); GFR NON-AFRICAN AMERICAN > 60
[2018-09-05] MEDS: Budesonide 0.5 mg/2 ml Inhal Susp UD IH SCH ×2 (09:05→19:41)
[2018-09-05 09:12] LABS: ALB/GLOB RATIO 0.9 (1.1-1.8)
--- NOTE | 2018-09-05 10:28 | PN ---
DATE: 09/05/2018 SUBJECTIVE: The patient is sedated on the ventilator with an FIO2 of approximately 60%. The patient is on Diprivan drip, but is hemodynamically stable. He is getting TEN nutrition and he is on IV Cardizem as well. The patient is scheduled for tracheostomy tomorrow a.m. as that is as per Surgery. PHYSICAL EXAMINATION: VITAL SIGNS: Physical exam note that his temperature is 98.6, pulse is 102, respirations of 14 and BP is 153/79. SKIN: Warm and dry. HEAD: Atraumatic, normocephalic. Eyes reactive to light. Ear, nose and throat seem to be within normal limits. NECK: Supple. No JVD. No thyroid enlargement or lymph nodes. HEART: Has regular rate and rhythm. Normal S1, S2, but tachycardic. LUNGS: Reveal bilateral rhonchi. ABDOMEN: Soft. Decreased bowel sounds. Nondistended. GENITALIA AND RECTAL: Deferred. MUSCULOSKELETAL: No joint deformities. EXTREMITIES: Reveal no edema. NEUROLOGIC: He is sedated on the ventilator. LABORATORY DATA: As far as his laboratories, his white count is 8.4, hemoglobin is 11.4, hematocrit 36.5 with platelets of 117,000. Arterial blood gas is pending. Sodium is 144, potassium 5.8, chloride 106, CO2 of 33 with a BUN of 81, creatinine of 0.9 and a glucose of 131. Chest x-ray results are pending. IMPRESSION: This patient has respiratory failure with hypercapnia and hypoxia. He is ventilator dependent and at this time has history of recurrent mucus plugging associated with sepsis. The patient's FIO2 is 40% and was initially admitted for bowel perforation and exploratory laparotomy. 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 PLAN: As far as our plan, we will continue with Mucomyst every 6 hours with chest PT. The patient is on ventilator and is scheduled for tracheostomy in the morning. He is getting clonidine as well as diltiazem, aspirin, insulin, metoprolol, meropenem, Pepcid, prednisone, propofol, Pulmicort, vancomycin, Cardizem, Xopenex. We will continue to treat aggressively along with the other consultants and primary care doctor. Wilian De La Torre MD
[2018-09-05] MEDS: Lidocaine 5% Patch TD SCH (10:52)
[2018-09-05] MEDS: diltiaZEM IVPB 100mg in NS 100 ML IV PRN (10:55)
--- NOTE | 2018-09-05 11:15 | PN ---
PULMONARY PROGRESS NOTE DATE: 09/05/2018 SUBJECTIVE: The patient was seen and examined in Intensive Care Unit on a ventilator. Currently, he is stable with oxygen saturation of 99%, responsive to questions and commands. He is receiving intravenous antibiotics and vancomycin and meropenem and he is on inhalation therapy with budesonide and added acetylcysteine. PHYSICAL EXAMINATION VITAL SIGNS: His temperature is 98.6, pulse is 100, respirations 14 on mechanical ventilator, pulse oximetry is 100% on 40% FiO2. HEENT: Head, normocephalic and atraumatic. NECK: Supple with no jugular vein distentions. CARDIOVASCULAR: S1 and S2. No S3. Regular. PULMONARY: Good bilateral air entry with few basilar rhonchi, left more than right. No wheezing. GASTROINTESTINAL: Soft and nontender, surgical incisions and dressings are present. EXTREMITIES: No pedal edema. SKIN: No acute skin rash. NEUROLOGIC: Limited at the present time. ASSESSMENT: 1. Acute respiratory failure. 2. Complete atelectasis of left lung, resolved. 3. Mucus plugging. 4. Status post laparotomy. 5. Sepsis syndrome. PLAN: I have discussed findings and plan with Dr. De La Torre and the entire ICU team. Patient's blood work today shows normal WBCs at 8.4, hemoglobin 11.4. His chemistries are mostly within normal range, vigorous suctioning is continuing. He is currently on ventilator, PRVC mode with tidal volume of 400, respiratory rate 14 and oxygen at 40%. These settings are adequate. There is no arterial blood gas this morning. The chest x-ray was reviewed my me, shows endotracheal tube in good position 2 cm above the raul. Left lung is expanded. The chest x-ray is under penetrated. The plan is to continue discussions with family about tracheostomy, which would prevent recurrent collapse of left lung and recurrent respiratory failure. Krystian Obrien MD
--- NOTE | 2018-09-05 11:35 | PN ---
DATE: 09/05/2018 SUBJECTIVE: The patient is in bed, in no acute distress, nontoxic. PHYSICAL EXAMINATION: VITAL SIGNS: Temperature is 98, blood pressure is 120/70 and respiratory rate 16. HEENT: Unremarkable. NECK: Supple. LUNGS: Have decreased breath sounds. HEART: Normal, S1 and S2. ABDOMEN: Soft. LABORATORY EXAMINATION: Reveals the patient's white count is 8.4, hemoglobin of 11 and platelets of 117,000. Chemistries are noted, BUN of 81, creatinine of 0.9 and urinalysis is noted. Vancomycin trough of 11.7. Microbiology is reviewed. Today's chest x-ray is pending. Review of orders. Review of medications. Review of the patient to be on meropenem and vancomycin. The patient's repeat cultures are pending. ASSESSMENT AND PLAN: This is an 82-year-old with a long hospital stay with sepsis, status post ventilatory-dependent respiratory failure, terminal perforated ileum, status post exploratory laparotomy resected, terminal ileum primary anastomosis and also had a vancomycin-resistant Enterococcus and Reshma tropicalis from the peritoneal culture fluid postprocedure day # 25, the patient has history of congestive heart failure and anxiety now with respiratory failure, intubated on a ventilator with healthcare-associated mucus plug with severe sepsis, status post bronchoscopy. The patient developed because of a mucus plug and currently on vancomycin and meropenem day #4. The patient's procalcitonin is negative. Repeat x-ray is improved. We will discontinue the vancomycin. The patient had a negative nares methicillin-resistant staphylococcus aureus screen in the past, today is day #4 of 47 days of meropenem. Jason Garvin MD
--- NOTE | 2018-09-05 12:41 | RAD ---
HISTORY: f/u COMPARISON: Chest x-ray performed 09/04/18 TECHNIQUE: Chest, one view. FINDINGS: Numerous external wires, leads, and devices obscure evaluation of the underlying parenchyma. Right IJ approach central venous catheter and left-sided PICC extends the expected of the SVC partially obscured by overlying device. Dobbhoff tube extends to the stomach. LUNGS: Small left pleural effusion and/or consolidation. No definite pneumothorax. Please note that chest x-ray has limited sensitivity for the detection of pulmonary masses. CARDIOVASCULAR: Cardiomegaly. Dense atherosclerotic calcification present. Partially imaged aortic stent. OSSEOUS STRUCTURES: Degenerative changes. VISUALIZED UPPER ABDOMEN: Unremarkable. OTHER FINDINGS: None. IMPRESSION: Right IJ approach central venous catheter and left-sided PICC extends the expected of the SVC partially obscured by overlying device. Dobbhoff tube extends to the stomach. Small left pleural effusion and/or consolidation. Cardiomegaly.
[2018-09-05 13:16] LABS: ARTERIAL BLOOD GAS HCO3 29.2 mmol/L (21-28); ARTERIAL BLOOD GAS O2 SAT 99.3 % (95-98); ARTERIAL BLOOD GAS PCO2 44 mm/Hg (35-45); ARTERIAL BLOOD GAS PH 7.43 (7.35-7.45); ARTERIAL BLOOD GAS TCO2 30.6 mmol.L (22-28)
--- NOTE | 2018-09-05 13:52 | PN ---
DATE: 09/05/2018 FOLLOWUP NOTE: SUBJECTIVE: He is sedated, intubated. Family agreed for tracheostomy, which is planned for tomorrow. He is currently on Diprivan drip. Hemodynamically stable. No events overnight. PHYSICAL EXAMINATION: GENERAL: He is sedated, intubated. VITAL SIGNS: Temperature 98.8, heart rate 87 per minute, respiratory rate 15 per minute, blood pressure 150/80. SKIN: Warm and dry. HEENT: Head atraumatic, normocephalic. Pallor positive. NECK: No lymphadenopathy. CHEST: Air entry present and equal bilateral. No added sound. CARDIOVASCULAR: S1 and S2 normal except for tachycardia. ABDOMEN: Soft, nontender. No hepatosplenomegaly. EXTREMITY: No edema. NEURO: Sedated, intubated. LABORATORY DATA: White count 8.4, hemoglobin 11.4, hematocrit 36, platelet 117. Sodium 144, potassium 5.8, BUN 81, creatinine 0.9, glucose 131. MEDICATIONS: Reviewed. ASSESSMENT AND PLAN: 1. Respiratory failure, currently on ventilation. Plan is for tracheostomy on Thursday, family agreed for that. 2. 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 3. Chronic anemia, iron deficiency. Hemoglobin and hematocrit stable. Idiopathic thrombocytopenic purpura. Platelet count stable. 4. Hyperbilirubinemia, likely secondary to sepsis. 5. Sepsis, resolved. Treated with IV antibiotics. Lesia Ledezma MD
[2018-09-05] MEDS ORDERED: Sod Polystyrene Sulf 15 gm/60 ml Susp PO ONE (15:54)
[2018-09-05] MEDS ORDERED: Dextrose 50% SYRINGE Inj (50 ml) IVP ONE (15:56)
[2018-09-05] MEDS ORDERED: Dextrose 50% SYRINGE Inj (50 ml) IV PRN (15:56)
[2018-09-05] MEDS ORDERED: Insulin Regular 1 UNITS/0.01 ML ML SC ONE (16:00)
--- NOTE | 2018-09-05 18:50 | PN ---
DATE: 09/04/2018 SUBJECTIVE: This 82-year-old male is now in ICU bed #1, intubated after respiratory insufficiency and distress. He is being sedated with IV Diprivan and according to his medical record, is producing approximately 1 L of urine daily. PHYSICAL EXAMINATION: VITAL SIGNS: He was noted to have a temperature of 98.2, pulse 104, blood pressure 131/63 and O2 sat of 100%. HEENT: Head: Normocephalic, atraumatic. Eyes: No icterus. NECK: Supple. HEART: Irregular S1, S2. LUNGS: With rhonchi. ABDOMEN: Soft. EXTREMITIES: No edema. SKIN: Without rash. NEUROLOGICAL: Sedated. VASCULAR: Legs warm to touch. LABORATORY DATA: White count 4700, hemoglobin 9.7, hematocrit 31.5, platelets 91,000. Sodium 141, K 4.6, chloride 104, bicarb 33, BUN 56, creatinine 0.6, random blood sugar 200, phosphorous 3.1, magnesium 2.3. IMPRESSION: An 82-year-old male, status post respiratory arrest with comorbidities of acute renal insufficiency, prerenal azotemia, atrial fibrillation, chronic hypertension, status post right hemicolectomy and exploratory laparotomy for ruptured ileum, now with insulin-dependent diabetes mellitus, chronic hypertension, anemia of chronic disease and exacerbation of chronic obstructive pulmonary disease. PLAN: The plan is to attempt to wean this patient off the ventilator as able. He continues on Xopenex, Pulmicort inhalational therapy, prednisone, Pepcid, meropenem, Lopressor, Levophed, Humulin insulin, Diprivan, clonidine, Cardizem, Calan and Ecotrin. He will have repeat labs in the a.m. He remains on ventilatory support. He is n.p.o. and may need to be considered for enteral feedings versus TPN. The patient remains a full code. However, his overall prognosis remains extremely poor. Sara Ramirez MD [facility]
--- NOTE | 2018-09-05 19:00 | PN ---
DATE: 09/04/2018 CRITICAL CARE PROGRESS NOTE SUBJECTIVE: This 82-year-old male is in bed #1 of the ICU where he is sedated of a ventilator with worsening AA gradient. The patient remains on an IV Diprivan drip for sedation and is receiving parenteral nutrition and is on IV Cardizem. He is being scheduled for tracheostomy tomorrow. PHYSICAL EXAMINATION: VITAL SIGNS: Temperature 98.6, pulse 115, blood pressure 140/79. Pulse ox 91%. HEENT: Head: Normocephalic. Eyes: No icterus. NECK: Supple. HEART: Irregular S1, S2. LUNGS: Rhonchi. ABDOMEN: Soft. EXTREMITIES: No edema. SKIN: Without rash. NEUROLOGICAL: Sedated. PSYCHOLOGICAL: Cannot be assessed. LABORATORY DATA: Sodium 144, K 5.8, chloride 106, bicarb 33, BUN 81, creatinine 0.9, random blood sugar 131. Magnesium 2.6. Chest x-ray was reviewed. It shows PICC line Dobbhoff tube properly placed in stomach, small left pleural effusion, and cardiomegaly. IMPRESSION: An 82-year-old male with respiratory failure, now being scheduled for tracheostomy with comorbidities of chronic obstructive pulmonary disease, prerenal azotemia, atherosclerotic heart disease, chronic atrial fibrillation, chronic hypertension, type 2 diabetes mellitus, on insulin protocol, history of hypertension. PLAN: To continue Xopenex, Pulmicort, Pepcid, meropenem, Lopressor, insulin, Diprivan, and clonidine. The patient will be scheduled for serial labs. He continues to be fed through his NG tube. Overall prognosis remains poor. He remains a full code. Sara Ramirez MD [facility]
--- NOTE | 2018-09-05 20:31 | CP.PCM.PCO ---
Physician Communication Note - Physician Communication Note Physician Communication Note: K 5.8 Rx Kayexelate/Sabino Tracheostomy in am
[2018-09-05] MEDS: Sodium Chloride 0.9% 1,000 ML IV SCH (23:34)
--- NOTE | 2018-09-06 01:11 | CP.PCM.PCO ---
Additional Comments - Additional Comments Additional Comments: Pt son, Abelardo Thao [phone] requested explanation of pt situation. He requests that pt is taken off anesthesia to give consent for tracheostomy, rather than giving consent by proxy. Explained long-term risks of maintaining pt intubated. He understood, but is requesting further information on plan for pt's care from primary day team and surgery. Son does not give consent at this time for potential tracheostomy tomorrow.
[2018-09-06] MEDS: diltiaZEM IVPB 100mg in NS 100 ML IV PRN ×4 (01:15→22:30)
[2018-09-06] MEDS: Insulin Reg-LOW-Coverage SC SCH ×4 (02:32→19:39)
[2018-09-06] MEDS: Levalbuterol 0.63 MG/3 ML Inhal Soln UD IH SCH ×4 (03:04→20:04)
[2018-09-06 05:26] LABS: HEMOGLOBIN 10.1 g/dL (14.0-18.0); MEAN CELL VOLUME 96.7 fl (80.0-105.0); MEAN CORPUSCULAR HEMOGLOBIN 30.4 pg (25.0-35.0); MEAN CORPUSCULAR HGB CONC 31.5 g/dl (31.0-37.0); MEAN PLATELET VOLUME 9.4 fl (7.0-11.0); RBC 3.32 10^6/uL (3.5-6.1); WHITE BLOOD COUNT 8.6 10^3/uL (4.5-11.0)
[2018-09-06] MEDS: Meropenem IV 1 gm in NS 1 GM/50 ML BAG IVPB SCH ×3 (05:34→22:31)
[2018-09-06] MEDS: Propofol 10 mg/ml 1,000 MG/100 ML VIAL IV PRN (05:43)
[2018-09-06 05:56] LABS: INR 1.31; PARTIAL THROMBOPLASTIN TIME 31.7 Seconds (25.1-36.5); PROTHROMBIN TIME 15.1 SECONDS (9.4-12.5)
[2018-09-06 06:35] LABS: ALB/GLOB RATIO 0.9 (1.1-1.8); ALBUMIN 2.1 g/dL (3.0-4.8); ALT/SGPT 62 U/L (7-56); AST/SGOT 48 U/L (17-59); BLOOD UREA NITROGEN 95 mg/dL (7-21); CALCIUM 7.9 mg/dL (8.4-10.5); GFR NON-AFRICAN AMERICAN 53
[2018-09-06 06:38] LABS: ARTERIAL BLOOD GAS HCO3 27.2 mmol/L (21-28); ARTERIAL BLOOD GAS HEMOGLOBIN 10.6 g/dL (11.7-17.4); ARTERIAL BLOOD GAS O2 CAPACITY 14.6 mL/dl (16-24); ARTERIAL BLOOD GAS O2 CONTENT 14.6 ML/dl (15-23); ARTERIAL BLOOD GAS PCO2 45 mm/Hg (35-45); ARTERIAL BLOOD GAS PH 7.39 (7.35-7.45); ARTERIAL BLOOD GAS TCO2 28.6 mmol.L (22-28)
[2018-09-06] MEDS: Budesonide 0.5 mg/2 ml Inhal Susp UD IH SCH ×2 (07:16→20:04)
--- NOTE | 2018-09-06 07:50 | PN ---
DATE: 09/06/2018([id number]) PULMONARY NOTE SUBJECTIVE: The patient remains in the ICU. He is currently sedated and on the ventilator. PHYSICAL EXAMINATION: VITAL SIGNS: Temperature is 98.2, pulse is 102, respirations 19/14, blood pressure 105/56. HEENT: Normocephalic, atraumatic. NECK: No JVD. CARDIOVASCULAR: Systolic ejection murmur at the lower left sternal border. Questionable S3 gallop. LUNGS: Significant increased breath sounds - left lung. Minimal bilateral rhonchi. No wheezing. EXTREMITIES: Mild edema. No cyanosis, no clubbing. GASTROINTESTINAL: Abdomen is soft and nondistended. Abdomen is postoperative. SKIN: No acute rash. NEUROLOGIC: Limited at the present time. PERTINENT LABORATORY DATA: Chest x-ray was done this morning and reviewed. There is continued improvement/increase in the aeration noted to the left lung/lower lobe. There are no significant infiltrates. There is no significant pulmonary edema. Arterial blood gas was done on PRVC 14, tidal volume 400, FIO2 40%. Results are: PH 7.39, pCO2 of 45, pO2 of 138. IMPRESSION: 1. Recurrent left lung atelectasis. 2. Congestive heart failure. 3. Atrial fibrillation. 4. Intra-abdominal perforation. 5. Status post right hemicolectomy. 6. Advanced chronic obstructive pulmonary disease. 7. Anemia, thrombocytopenia. PLAN: The patient remains in the ICU. He is currently sedated and on the ventilator. I did discuss the case with the night nurse at length. The night nurse stated that the patient had a good night. The night nurse also informed me that the patient is for probable tracheostomy later today. I did review the chest x-ray as above. Findings are noted. The chest x-ray is significantly improved - compared to last week. I have also reviewed the arterial blood gas. The arterial blood gas is also significantly improved. Again, the patient is status post multiple bronchoscopies, after repeated atelectasis of the left lung. I did review the notes by Dr. Andujar and Dr. Obrien (my partner). We are awaiting consent for the tracheostomy. In the meantime, there is only minimal/less bronchospasm noted. I will continue with the current nebulizer treatments and inhaled steroids for now.. The patient also remains on low-dose prednisone. Inputs by Renal, Infectious Disease, and Surgery are noted. The patient did have a fever of 102.8 last night. The patient remains critically ill, with very, very guarded/poor prognosis. I will discuss the above with the entire ICU team in the next few moments. I will also discuss the above with Dr. Du later this morning. Rosalio Blevins MD [facility]TD[facility]
--- NOTE | 2018-09-06 07:55 | PN ---
DATE: 09/04/2018 PULMONARY PROGRESS NOTE SUBJECTIVE: The patient was seen and examined in the Intensive Care Unit on a ventilator. He is lethargic, but arousable and answers with gestures appropriately. PHYSICAL EXAMINATION: VITAL SIGNS: His temperature is 98, pulse 88, respirations 20, on mechanical ventilator. His pulse oximetry is now 100. His intake and output are positive 500 mL. Arterial blood gases noted and unchanged from yesterday. HEENT: Head normocephalic and atraumatic. NECK: Supple with no jugular vein distentions. CARDIOVASCULAR: S1, S2 regular. PULMONARY: Diminished breath sounds at the left base, otherwise clear. GASTROINTESTINAL: Soft, nontender. No organomegaly. Dressings over incisions present. EXTREMITIES: No pedal edema. No cyanosis. SKIN: No acute skin rash. NEUROLOGIC: Limited at the present time. LABORATORY DATA: Additional data reviewed. Today's laboratory data was reviewed. WBC is 4.7, hemoglobin of 9.7. Chemistries unremarkable. Liver function tests are minimally elevated. ASSESSMENT: 1. Acute respiratory failure. 2. Recurrent atelectasis of left lung. 3. Status post laparotomy and bowel resection for tumor. PLAN: I have reviewed this morning's chest x-ray, which will show up on the screen soon. There is a computer problem and for some reason cannot pull up the x-ray. There is no report yet. I will check on a different computer. Now, the report is still unavailable, but the x-ray came up and the left lung is fully expanded. Endotracheal tube is in place. There are no infiltrates or effusions. The case was discussed with ICU team. His condition has stabilized. Consideration for tracheostomy still in place that is appropriate and recurrent collapse of the left lung. Krystian Obrien MD
--- NOTE | 2018-09-06 08:09 | PN ---
DATE: 09/05/2018 SUBJECTIVE: The patient is still on the ventilator. He is still on Cardizem infusion at 10 mg per hour. PHYSICAL EXAMINATION: VITAL SIGNS: Blood pressure 120/79, heart rate 115, and temperature 98.6. HEENT: Normocephalic. CHEST: Diminished air entry over the bases. HEART: S1, S2 regular. EXTREMITIES: No edema. LABORATORY DATA: Today's hemoglobin and hematocrit are 11.4 and 36.5, white count 3.4, and platelet count 119,000. Today's SMA-7: Sodium 144, potassium 5.8, chloride 106, CO2 33, glucose 131, BUN 51, and creatinine 0.9. . Today's chest x-ray report, right ____ by overlying device, no left pleural effusion ____, no definite hemothorax. ASSESSMENT: 1. Chronic atrial fibrillation. 2. Hyperlipidemia. 3. Status post left lung collapse with bronchoscopy. 4. Status post surgical repair of small bowel perforation with resection and end-to-end anastomosis. 5. History of endovascular repair of abdominal aortic aneurysm. RECOMMENDATIONS: Continue current Cardizem infusion 10 mg per hour, aspirin 81 mg once a day, ____ b.i.d., meropenem at 1 g intravenously every 8 hours, ____ 10 mg daily ____, ____ p.r.n. for heart rate more than 130, and Xopenex inhaler every 6 hours. Delfin Oconnell MD
--- NOTE | 2018-09-06 08:35 | CP.CCUPN ---
<Godfrey Lehman - Last Filed: 09/06/18 10:42> CCU Subjective - Physician Review Subjective (Free Text): Godfrey Lehman, PGY1 ICU Progress Note for Dr. Cochran Patient seen and examined at bedside this morning. Febrile overnight, Tmax 102.8, given IV acetaminophen. Morning temperature was 98. Patient intubated so a full 12 point ROS was unable to be obtained. Patient was not alert or awake during time of interview. Briefly moves extremities. Vent settings noted: PRVC 400/14/8/40%. NG tube in place. Mcintosh catheter in place and draining. R-IJ in place. Colostomy bag is in place. As per night team, NG tube feeds have been off since midnight since patient is pending possible trach this morning. Son (Abelardo Thao: [phone]) spoke to pulmonology and surgical team via phone today - he has consented for trach as the patient lacks capacity to make his own decision. CCU Objective - Vital Signs / Intake & Output Vital Signs (Last 4 hours): Vital Signs Pulse 09/06/18 06:00 102 H Intake and Output (Last 8hrs): Intake & Output 09/05/18 09/06/18 09/06/18 22:59 06:59 14:59 Intake Total 1154 304 Output Total 1100 1860 Balance 54 -1556 Intake: IV 454 304 Cardizem 170 120 Propofol 84 84 Right Internal Jugular 100 Tube Feeding 600 Other 100 Output: Drainage 650 1310 Colostomy 500 1175 Right Abdomen 150 135 Urine 450 550 Condom 450 550 - Physical Exam Head: Positive for: Atraumatic, Normocephalic Pupils: Positive for: PERRL Extroacular Muscles: Positive for: EOMI Mouth: Positive for: Moist Mucous Membranes Pharnyx: Positive for: Normal Neck: Negative for: JVD, Lymphadenopathy Respiratory/Chest: Positive for: Clear to Auscultation. Negative for: Respiratory Distress, Accessory Muscle Use, Wheezes, Rales, Rhonchi Cardiovascular: Positive for: Irregular Rhythm (Afib), Peripheal Pulses Present Abdomen: Positive for: Normal Bowel Sounds, Other ( Colostomy bag in place). Negative for: Tenderness, Distention Upper Extremity: Positive for: Normal Inspection. Negative for: Edema Lower Extremity: Positive for: Normal Inspection, NORMAL PULSES, Other (No pitting edema noted on bilateral low ext. ). Negative for: Edema Skin: Positive for: Warm, Dry, Normal Color Psychiatric: Positive for: Lethargic. Negative for: Alert, Oriented x 3 - Medications Active Medications: Active Medications Generic Name Dose Route Start Last Admin Trade Name Freq PRN Reason Stop Dose Admin Acetylcysteine 4 ml 09/02/18 08:00 09/04/18 20:05 Acetylcysteine 20% IH Not Given [id number] Aspirin 81 mg 09/05/18 11:30 09/05/18 13:24 Aspirin Chewable PO 81 mg DAILY KD Administration Budesonide 0.5 mg 08/13/18 08:00 09/06/18 07:16 Pulmicort Respules IH 0.5 mg [id number] KD Administration Clonidine HCl 1 patch 08/13/18 10:00 09/03/18 15:53 Catapres Tts1 0.1 Mg/24 Hr TD 1 patch Q7D@1000 KD Administration Dextrose 0 ml 09/05/18 15:56 Dextrose 50% Inj IV STAT PRN Hypoglycemia Protocol Protocol Famotidine 20 mg 08/21/18 10:00 09/05/18 10:50 Pepcid PO 20 mg DAILY KD Administration NOREPINEPHRINE BIT/0.9 % NACL 4 mg in 250 mls @ 15 mls/hr 09/02/18 09:00 09/02/18 18:00 Levophed 4 Mg/ 250 Ml Ns Premixed IV 0 mcg/min .[id number] PRN 0 mls/hr TITRATE PER MD ORDER Titration Protocol 4 MCG/MIN Propofol 1,000 mg in 100 mls @ 1.757 mls/hr 09/02/18 09:00 09/06/18 05:43 Diprivan IV 20 mcg/kg/min .Q24H PRN 7.027 mls/hr TITRATE PER MD ORDER Administration Protocol 5 MCG/KG/MIN Meropenem 1 gm in 50 mls @ 100 mls/hr 09/02/18 09:08 09/06/18 05:34 Merrem Iv 1 Gm Premix IVPB 09/11/18 09:09 100 mls/hr Q8 KD Administration Protocol diltiaZEM IVPB 100mg in NS 100 mls @ 10 mls/hr 09/02/18 09:16 09/06/18 01:15 Cardizem 100mg In Ns IV 10 mg/hr .Q10H PRN 10 mls/hr TITRATE PER MD ORDER Administration Protocol 10 MG/HR Acetaminophen 1,000 mg in 100 mls @ 400 mls/hr 09/04/18 16:12 09/05/18 21:17 Ofirmev IVPB 09/06/18 16:13 400 mls/hr Q6H PRN Administration Temperature Dextrose 1,000 mls @ 0 mls/hr 09/05/18 15:56 Dextrose 5% In Water 1000 Ml IV .Q0M PRN Hypoglycemia Protocol Protocol Per Protocol Sodium Chloride 1,000 mls @ 100 mls/hr 09/05/18 23:15 09/05/18 23:34 Sodium Chloride 0.9% IV 100 mls/hr .Q10H KD Administration Insulin Human Regular 0 units 09/03/18 12:00 09/06/18 05:42 Humulin R Low SC Not Given Q6 KD Protocol Levalbuterol HCl 0.63 mg 08/18/18 08:00 09/06/18 07:16 Xopenex IH 0.63 mg [id number] KD Administration Lidocaine 1 ea 08/10/18 10:00 09/05/18 10:52 Lidoderm TD Not Given DAILY KD Metoprolol Tartrate 50 mg 08/29/18 17:00 09/05/18 17:39 Lopressor PO 50 mg BRKDIN KD Administration Prednisone 10 mg 08/27/18 10:00 09/05/18 10:54 Prednisone Tab PO 10 mg DAILY KD Administration Verapamil HCl 2.5 mg 08/31/18 09:03 Verapamil Inj IVP Q6H PRN for heart rate >130 Verapamil HCl 40 mg 09/01/18 10:00 09/01/18 17:56 Calan Tab PO 40 mg TID KD Administration - Patient Studies Lab Studies: Microbiology Studies 09/02/18 12:05 Blood Culture - Preliminary Blood NO GROWTH AFTER 3 DAYS 09/02/18 11:55 Blood Culture - Preliminary Blood NO GROWTH AFTER 3 DAYS Lab Studies 09/06/18 09/06/18 09/06/18 Range/Units 06:34 05:41 05:01 WBC (4.5-11.0) 10^3/uL RBC (3.5-6.1) 10^6/uL Hgb (14.0-18.0) g/dL Hct (42.0-52.0) % MCV (80.0-105.0) fl MCH (25.0-35.0) pg MCHC (31.0-37.0) g/dl RDW (11.5-14.5) % Plt Count (120.0-450.0) 10^3/uL MPV (7.0-11.0) fl PT (9.4-12.5) SECONDS INR APTT (25.1-36.5) Seconds pCO2 45 (35-45) mm/Hg pO2 138.0 H (80-100) mm/Hg HCO3 27.2 (21-28) mmol/L ABG pH 7.39 (7.35-7.45) ABG Total CO2 28.6 H (22-28) mmol.L ABG O2 Saturation 100.0 H (95-98) % ABG O2 Content 14.6 L (15-23) ML/dl ABG Base Excess 1.8 (-2.0-3.0) mmol/L ABG Hemoglobin 10.6 L (11.7-17.4) g/dL ABG Carboxyhemoglobin 2.7 H (0.5-1.5) % POC ABG HHb (Measured) 0 (0-5) % ABG Methemoglobin 1.2 (0.0-3.0) % ABG O2 Capacity 14.6 L (16-24) mL/dl ABG Potassium (3.6-5.2) mmol/L Hgb O2 Saturation 96.1 (95.0-98.0) % Glucose (75-110) mg/dl Lactate (0.7-2.1) mmol/L Mechanical Rate FiO2 40.0 % Tidal Volume PEEP Sodium (132-148) mmol/L Potassium (3.6-5.0) mmol/L Chloride (98-107) mmol/L Carbon Dioxide (21-33) mmol/L Anion Gap (10-20) BUN (7-21) mg/dL Creatinine (0.8-1.5) mg/dl Est GFR ( Amer) Est GFR (Non-Af Amer) POC Glucose (mg/dL) 152 H (65-110) mg/dL Random Glucose (70-110) mg/dL Calcium (8.4-10.5) mg/dL Phosphorus (2.5-4.5) mg/dL Magnesium (1.7-2.2) mg/dL Total Bilirubin (0.2-1.3) mg/dL AST (17-59) U/L ALT (7-56) U/L Alkaline Phosphatase (38-126) U/L Total Protein (5.8-8.3) g/dL Albumin (3.0-4.8) g/dL Globulin gm/dL Albumin/Globulin Ratio (1.1-1.8) Arterial Blood Potassium (3.6-5.2) mmol/L Blood Type O POSITIVE Antibody Screen Negative Crossmatch See Detail BBK History Checked Patient has bt 09/06/18 09/06/18 09/06/18 Range/Units 05:01 05:01 05:01 WBC 8.6 (4.5-11.0) 10^3/uL RBC 3.32 L (3.5-6.1) 10^6/uL Hgb 10.1 L (14.0-18.0) g/dL Hct 32.1 L (42.0-52.0) % MCV 96.7 (80.0-105.0) fl MCH 30.4 (25.0-35.0) pg MCHC 31.5 (31.0-37.0) g/dl RDW 21.0 H (11.5-14.5) % Plt Count 96 L (120.0-450.0) 10^3/uL MPV 9.4 (7.0-11.0) fl PT 15.1 H (9.4-12.5) SECONDS INR 1.31 APTT 31.7 (25.1-36.5) Seconds pCO2 (35-45) mm/Hg pO2 (80-100) mm/Hg HCO3 (21-28) mmol/L ABG pH (7.35-7.45) ABG Total CO2 (22-28) mmol.L ABG O2 Saturation (95-98) % ABG O2 Content (15-23) ML/dl ABG Base Excess (-2.0-3.0) mmol/L ABG Hemoglobin (11.7-17.4) g/dL ABG Carboxyhemoglobin (0.5-1.5) % POC ABG HHb (Measured) (0-5) % ABG Methemoglobin (0.0-3.0) % ABG O2 Capacity (16-24) mL/dl ABG Potassium (3.6-5.2) mmol/L Hgb O2 Saturation (95.0-98.0) % Glucose (75-110) mg/dl Lactate (0.7-2.1) mmol/L Mechanical Rate FiO2 % Tidal Volume PEEP Sodium 147 (132-148) mmol/L Potassium 4.8 (3.6-5.0) mmol/L Chloride 112 H (98-107) mmol/L Carbon Dioxide 29 (21-33) mmol/L Anion Gap 10 (10-20) BUN 95 H (7-21) mg/dL Creatinine 1.3 (0.8-1.5) mg/dl Est GFR ( Amer) > 60 Est GFR (Non-Af Amer) 53 POC Glucose (mg/dL) (65-110) mg/dL Random Glucose 144 H (70-110) mg/dL Calcium 7.9 L (8.4-10.5) mg/dL Phosphorus 4.9 H (2.5-4.5) mg/dL Magnesium 2.7 H (1.7-2.2) mg/dL Total Bilirubin 2.7 H (0.2-1.3) mg/dL AST 48 (17-59) U/L ALT 62 H (7-56) U/L Alkaline Phosphatase 74 (38-126) U/L Total Protein 4.3 L (5.8-8.3) g/dL Albumin 2.1 L (3.0-4.8) g/dL Globulin 2.2 gm/dL Albumin/Globulin Ratio 0.9 L (1.1-1.8) Arterial Blood Potassium (3.6-5.2) mmol/L Blood Type Antibody Screen Crossmatch BBK History Checked 09/05/18 09/05/18 09/05/18 Range/Units 23:56 16:15 13:10 WBC (4.5-11.0) 10^3/uL RBC (3.5-6.1) 10^6/uL Hgb (14.0-18.0) g/dL Hct (42.0-52.0) % MCV (80.0-105.0) fl MCH (25.0-35.0) pg MCHC (31.0-37.0) g/dl RDW (11.5-14.5) % Plt Count (120.0-450.0) 10^3/uL MPV (7.0-11.0) fl PT (9.4-12.5) SECONDS INR APTT (25.1-36.5) Seconds pCO2 44 (35-45) mm/Hg pO2 109.0 H (80-100) mm/Hg HCO3 29.2 H (21-28) mmol/L ABG pH 7.43 (7.35-7.45) ABG Total CO2 30.6 H (22-28) mmol.L ABG O2 Saturation 99.3 H (95-98) % ABG O2 Content (15-23) ML/dl ABG Base Excess 4.2 H (-2.0-3.0) mmol/L ABG Hemoglobin (11.7-17.4) g/dL ABG Carboxyhemoglobin (0.5-1.5) % POC ABG HHb (Measured) (0-5) % ABG Methemoglobin (0.0-3.0) % ABG O2 Capacity (16-24) mL/dl ABG Potassium 5.5 H (3.6-5.2) mmol/L Hgb O2 Saturation (95.0-98.0) % Glucose 152 H (75-110) mg/dl Lactate 1.5 (0.7-2.1) mmol/L Mechanical Rate 14 FiO2 40.0 % Tidal Volume 400 PEEP 8 Sodium 142.0 (132-148) mmol/L Potassium (3.6-5.0) mmol/L Chloride 108.0 H (98-107) mmol/L Carbon Dioxide (21-33) mmol/L Anion Gap (10-20) BUN (7-21) mg/dL Creatinine (0.8-1.5) mg/dl Est GFR ( Amer) Est GFR (Non-Af Amer) POC Glucose (mg/dL) 157 H 169 H (65-110) mg/dL Random Glucose (70-110) mg/dL Calcium (8.4-10.5) mg/dL Phosphorus (2.5-4.5) mg/dL Magnesium (1.7-2.2) mg/dL Total Bilirubin (0.2-1.3) mg/dL AST (17-59) U/L ALT (7-56) U/L Alkaline Phosphatase (38-126) U/L Total Protein (5.8-8.3) g/dL Albumin (3.0-4.8) g/dL Globulin gm/dL Albumin/Globulin Ratio (1.1-1.8) Arterial Blood Potassium 5.5 H (3.6-5.2) mmol/L Blood Type Antibody Screen Crossmatch BBK History Checked 09/05/18 09/05/18 Range/Units 11:01 07:00 WBC (4.5-11.0) 10^3/uL RBC (3.5-6.1) 10^6/uL Hgb (14.0-18.0) g/dL Hct (42.0-52.0) % MCV (80.0-105.0) fl MCH (25.0-35.0) pg MCHC (31.0-37.0) g/dl RDW (11.5-14.5) % Plt Count (120.0-450.0) 10^3/uL MPV (7.0-11.0) fl PT (9.4-12.5) SECONDS INR APTT (25.1-36.5) Seconds pCO2 (35-45) mm/Hg pO2 (80-100) mm/Hg HCO3 (21-28) mmol/L ABG pH (7.35-7.45) ABG Total CO2 (22-28) mmol.L ABG O2 Saturation (95-98) % ABG O2 Content (15-23) ML/dl ABG Base Excess (-2.0-3.0) mmol/L ABG Hemoglobin (11.7-17.4) g/dL ABG Carboxyhemoglobin (0.5-1.5) % POC ABG HHb (Measured) (0-5) % ABG Methemoglobin (0.0-3.0) % ABG O2 Capacity (16-24) mL/dl ABG Potassium (3.6-5.2) mmol/L Hgb O2 Saturation (95.0-98.0) % Glucose (75-110) mg/dl Lactate (0.7-2.1) mmol/L Mechanical Rate FiO2 % Tidal Volume PEEP Sodium 144 (132-148) mmol/L Potassium 5.8 H* D (3.6-5.0) mmol/L Chloride 106 (98-107) mmol/L Carbon Dioxide 33 (21-33) mmol/L Anion Gap 11 (10-20) BUN 81 H (7-21) mg/dL Creatinine 0.9 (0.8-1.5) mg/dl Est GFR ( Amer) > 60 Est GFR (Non-Af Amer) > 60 POC Glucose (mg/dL) 141 H (65-110) mg/dL Random Glucose 131 H (70-110) mg/dL Calcium 8.2 L (8.4-10.5) mg/dL Phosphorus 4.1 (2.5-4.5) mg/dL Magnesium 2.6 H (1.7-2.2) mg/dL Total Bilirubin 4.3 H (0.2-1.3) mg/dL AST 52 (17-59) U/L ALT 78 H (7-56) U/L Alkaline Phosphatase 98 (38-126) U/L Total Protein 5.0 L (5.8-8.3) g/dL Albumin (3.0-4.8) g/dL Globulin 2.6 gm/dL Albumin/Globulin Ratio 0.9 L (1.1-1.8) Arterial Blood Potassium (3.6-5.2) mmol/L Blood Type Antibody Screen Crossmatch BBK History Checked Laboratory Results - last 24 hr 09/05/18 09/05/18 09/05/18 07:00 11:01 13:10 WBC RBC Hgb Hct MCV MCH MCHC RDW Plt Count MPV PT INR APTT pCO2 44 pO2 109.0 H HCO3 29.2 H ABG pH 7.43 ABG Total CO2 30.6 H ABG O2 Saturation 99.3 H ABG O2 Content ABG Base Excess 4.2 H ABG Hemoglobin ABG Carboxyhemoglobin POC ABG HHb (Measured) ABG Methemoglobin ABG O2 Capacity ABG Potassium 5.5 H Hgb O2 Saturation Glucose 152 H Lactate 1.5 Mechanical Rate 14 FiO2 40.0 Tidal Volume 400 PEEP 8 Sodium 144 142.0 Potassium 5.8 H* D Chloride 106 108.0 H Carbon Dioxide 33 Anion Gap 11 BUN 81 H Creatinine 0.9 Est GFR ( Amer) > 60 Est GFR (Non-Af Amer) > 60 POC Glucose (mg/dL) 141 H Random Glucose 131 H Calcium 8.2 L Phosphorus 4.1 Magnesium 2.6 H Total Bilirubin 4.3 H AST 52 ALT 78 H Alkaline Phosphatase 98 Total Protein 5.0 L Albumin Globulin 2.6 Albumin/Globulin Ratio 0.9 L Arterial Blood Potassium 5.5 H Blood Type Antibody Screen Crossmatch BBK History Checked 09/05/18 09/05/18 09/06/18 16:15 23:56 05:01 WBC RBC Hgb Hct MCV MCH MCHC RDW Plt Count MPV PT INR APTT pCO2 pO2 HCO3 ABG pH ABG Total CO2 ABG O2 Saturation ABG O2 Content ABG Base Excess ABG Hemoglobin ABG Carboxyhemoglobin POC ABG HHb (Measured) ABG Methemoglobin ABG O2 Capacity ABG Potassium Hgb O2 Saturation Glucose Lactate Mechanical Rate FiO2 Tidal Volume PEEP Sodium 147 Potassium 4.8 Chloride 112 H Carbon Dioxide 29 Anion Gap 10 BUN 95 H Creatinine 1.3 Est GFR ( Amer) > 60 Est GFR (Non-Af Amer) 53 POC Glucose (mg/dL) 169 H 157 H Random Glucose 144 H Calcium 7.9 L Phosphorus 4.9 H Magnesium 2.7 H Total Bilirubin 2.7 H AST 48 ALT 62 H Alkaline Phosphatase 74 Total Protein 4.3 L Albumin 2.1 L Globulin 2.2 Albumin/Globulin Ratio 0.9 L Arterial Blood Potassium Blood Type Antibody Screen Crossmatch BBK History Checked 09/06/18 09/06/18 09/06/18 05:01 05:01 05:01 WBC 8.6 RBC 3.32 L Hgb 10.1 L Hct 32.1 L MCV 96.7 MCH 30.4 MCHC 31.5 RDW 21.0 H Plt Count 96 L MPV 9.4 PT 15.1 H INR 1.31 APTT 31.7 pCO2 pO2 HCO3 ABG pH ABG Total CO2 ABG O2 Saturation ABG O2 Content ABG Base Excess ABG Hemoglobin ABG Carboxyhemoglobin POC ABG HHb (Measured) ABG Methemoglobin ABG O2 Capacity ABG Potassium Hgb O2 Saturation Glucose Lactate Mechanical Rate FiO2 Tidal Volume PEEP Sodium Potassium Chloride Carbon Dioxide Anion Gap BUN Creatinine Est GFR ( Amer) Est GFR (Non-Af Amer) POC Glucose (mg/dL) Random Glucose Calcium Phosphorus Magnesium Total Bilirubin AST ALT Alkaline Phosphatase Total Protein Albumin Globulin Albumin/Globulin Ratio Arterial Blood Potassium Blood Type O POSITIVE Antibody Screen Negative Crossmatch See Detail BBK History Checked Patient has bt 09/06/18 09/06/18 05:41 06:34 WBC RBC Hgb Hct MCV MCH MCHC RDW Plt Count MPV PT INR APTT pCO2 45 pO2 138.0 H HCO3 27.2 ABG pH 7.39 ABG Total CO2 28.6 H ABG O2 Saturation 100.0 H ABG O2 Content 14.6 L ABG Base Excess 1.8 ABG Hemoglobin 10.6 L ABG Carboxyhemoglobin 2.7 H POC ABG HHb (Measured) 0 ABG Methemoglobin 1.2 ABG O2 Capacity 14.6 L ABG Potassium Hgb O2 Saturation 96.1 Glucose Lactate Mechanical Rate FiO2 40.0 Tidal Volume PEEP Sodium Potassium Chloride Carbon Dioxide Anion Gap BUN Creatinine Est GFR ( Amer) Est GFR (Non-Af Amer) POC Glucose (mg/dL) 152 H Random Glucose Calcium Phosphorus Magnesium Total Bilirubin AST ALT Alkaline Phosphatase Total Protein Albumin Globulin Albumin/Globulin Ratio Arterial Blood Potassium Blood Type Antibody Screen Crossmatch BBK History Checked Fingerstick Blood Sugar Results: 152 Review of Systems - Review of Systems Systems not reviewed;Unavailable: Intubated Critical Care Progress Note - Ventilator Checklist Head of Bed 30 Degrees: Yes Daily Sedation Vacation: Yes Daily Assessment of Readiness to Wean: Yes Daily Spontaneous Breathing Trial: Yes PUD Prophalyxis: Yes DVT Prophylaxis: Yes Oral Care with Chlorhexidine Gluconate {CHG}: Yes - Vent Settings MODE:: PRVC TIDAL VOLUME:: 400 RESP RATE:: 14 FIO2:: 40 PEEP:: 8 - Extremities/Vascular Does the Patient have a Central Venous Catheter?: Yes Insertion Site: Internal Jugular Vein Does the Patient have a Mcintosh Catheter?: Yes Does the Patient need a Mcintosh Catheter?: Yes Catheter Insertion Criteria: Need for accurate measurement of output in critically ill patient - Restraints Justification for Restraints: High risk for self extubation - Prophylaxis GI Prophylaxis GI: Pepsid - Prophylaxis DVT Prophylaxis DVT: SCDs - Nutrition Nutrition: Nutrition Category Date Time Status NPO Diet [DIET] Diets 09/02/18 Lunch Ordered Assessment/Plan - Assessment and Plan (Free Text) Assessment: Patient is a 82 y/o male s/p ex-lap and ileal perforation with VRE sepsis admitted to ICU for elective bronchoscopy after failing chest PT while on the floor. Patient is currently sedated and intubated. Due to patient's history of recurrent intubations, patient is a candidate for tracheostomy tube. Plan: Neuro: - c/w sedatives as patient is pending possible tracheostomy today - maintain normothermia Pulm: - Pending possible tracheostomy; verbal consent was obtained from son Josiah) via surgical team - Vent settings: PRVC 400/14/8/40% - CXR (09/06): left sided pleural effusion - s/p elective brochoscopy (09/02) - sputum cx results s/p bronch are normal - c/w Prednisone 10mg PO daily - continue xopenex, pulmicort - Pulmonology is following, recs appreciated - Maintain SaO2 > 90% - Hx recurrent L-lung atelectasis and mucus plugging s/p bronchoscopy x3 - Hx of COPD and smoking Cardio: - Afib on cardizem gtt at 15 mg/hr - continue asa, clonidine, verapamil - Cario is following, recs appreciated - Maintain MAP > 65 - Hx of endovascular repair of AAA - Hx of HTN GI: - ostomy bag with soft stool. 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 with viscus rupture and ex-lap and peritonitis Renal: - I/O: 1.5 liters/2.9 liters with a net -1.4 L - resolving renal failure Heme: - H/H stable - Chronic Thrombocytopenia - No signs of active bleeding at this time - Continue to monitor ID: - Febrile overnight; Tmax 102.8; ordered stat blood cx, sputum cx, ua, urine cx - c/w antibx: meropenem (Day #5), as per ID recommendations - c/w IV acetaminophen - VRE+ - Procal negative Endo: - Maintain euglycemia - ISS - low Prophylaxis: - DVT ppx: SCD - GI ppx: pepcid Palliative care is on board. Dispo: Consent for tracheostomy was received from patient's son (Abelardo). Pending trach. Case was discussed and reviewed with Attending Physician, Dr. Cochran. <Lev Cochran - Last Filed: 09/06/18 13:48> CCU Objective - Vital Signs / Intake & Output Vital Signs (Last 4 hours): Vital Signs Temp Pulse BP Pulse Ox 09/06/18 11:00 124/62 09/06/18 10:59 118 H 99 09/06/18 10:00 101.7 F H 118 H 124/68 99 Intake and Output (Last 8hrs): Intake & Output 09/05/18 09/06/18 09/06/18 22:59 06:59 14:59 Intake Total 1154 304 100 Output Total 1100 1860 Balance 54 -1556 100 Intake: IV 454 304 100 Cardizem 170 120 Propofol 84 84 Right Internal Jugular 100 Tube Feeding 600 Other 100 Output: Drainage 650 1310 Colostomy 500 1175 Right Abdomen 150 135 Urine 450 550 Condom 450 550 - Medications Active Medications: Active Medications Generic Name Dose Route Start Last Admin Trade Name Freq PRN Reason Stop Dose Admin Acetylcysteine 4 ml 09/02/18 08:00 09/04/18 20:05 Acetylcysteine 20% IH Not Given [id number] KD Aspirin 81 mg 09/05/18 11:30 09/06/18 09:21 Aspirin Chewable PO 81 mg DAILY KD Administration Budesonide 0.5 mg 08/13/18 08:00 09/06/18 07:16 Pulmicort Respules IH 0.5 mg [id number] KD Administration Clonidine HCl 1 patch 08/13/18 10:00 09/03/18 15:53 Catapres Tts1 0.1 Mg/24 Hr TD 1 patch Q7D@1000 KD Administration Dextrose 0 ml 09/05/18 15:56 Dextrose 50% Inj IV STAT PRN Hypoglycemia Protocol Protocol Famotidine 20 mg 08/21/18 10:00 09/06/18 09:21 Pepcid PO 20 mg DAILY KD Administration NOREPINEPHRINE BIT/0.9 % NACL 4 mg in 250 mls @ 15 mls/hr 09/02/18 09:00 09/02/18 18:00 Levophed 4 Mg/ 250 Ml Ns Premixed IV 0 mcg/min .[id number] PRN 0 mls/hr TITRATE PER MD ORDER Titration Protocol 4 MCG/MIN Propofol 1,000 mg in 100 mls @ 1.757 mls/hr 09/02/18 09:00 09/06/18 05:43 Diprivan IV 20 mcg/kg/min .Q24H PRN 7.027 mls/hr TITRATE PER MD ORDER Administration Protocol 5 MCG/KG/MIN Meropenem 1 gm in 50 mls @ 100 mls/hr 09/02/18 09:08 09/06/18 05:34 Merrem Iv 1 Gm Premix IVPB 09/11/18 09:09 100 mls/hr Q8 KD Administration Protocol diltiaZEM IVPB 100mg in NS 100 mls @ 10 mls/hr 09/02/18 09:16 09/06/18 09:23 Cardizem 100mg In Ns IV 15 mg/hr .Q10H PRN 15 mls/hr TITRATE PER MD ORDER Administration Protocol 10 MG/HR Acetaminophen 1,000 mg in 100 mls @ 400 mls/hr 09/04/18 16:12 09/06/18 10:40 Ofirmev IVPB 09/06/18 16:13 400 mls/hr Q6H PRN Administration Temperature Dextrose 1,000 mls @ 0 mls/hr 09/05/18 15:56 Dextrose 5% In Water 1000 Ml IV .Q0M PRN Hypoglycemia Protocol Protocol Per Protocol Sodium Chloride 1,000 mls @ 100 mls/hr 09/05/18 23:15 09/06/18 09:21 Sodium Chloride 0.9% IV 100 mls/hr .Q10H KD Administration Micafungin Sodium 100 mg/ 100 mls @ 100 mls/hr 09/06/18 12:45 Sodium Chloride IV 09/13/18 12:46 DAILY KD Protocol Daptomycin 610 mg/ Sodium 100 mls @ 200 mls/hr 09/06/18 13:15 Chloride IV 09/13/18 13:16 Q24H KD Vancomycin HCl 2 gm/ Sodium 500 mls @ 170 mls/hr 09/06/18 13:06 Chloride IVPB 09/06/18 16:02 ONCE ONE Protocol Insulin Human Regular 0 units 09/03/18 12:00 09/06/18 05:42 Humulin R Low SC Not Given Q6 KD Protocol Levalbuterol HCl 0.63 mg 08/18/18 08:00 09/06/18 13:18 Xopenex IH 0.63 mg [id number] KD Administration Lidocaine 1 ea 08/10/18 10:00 09/05/18 10:52 Lidoderm TD Not Given DAILY KD Metoprolol Tartrate 50 mg 08/29/18 17:00 09/06/18 09:13 Lopressor PO Not Given BRKDIN KD Prednisone 10 mg 08/27/18 10:00 09/05/18 10:54 Prednisone Tab PO 10 mg DAILY KD Administration Verapamil HCl 2.5 mg 08/31/18 09:03 Verapamil Inj IVP Q6H PRN for heart rate >130 Verapamil HCl 40 mg 09/01/18 10:00 09/01/18 17:56 Calan Tab PO 40 mg TID KD Administration - Patient Studies Lab Studies: Microbiology Studies 09/02/18 12:05 Blood Culture - Preliminary Blood NO GROWTH AFTER 4 DAYS 09/02/18 11:55 Blood Culture - Preliminary Blood NO GROWTH AFTER 4 DAYS 09/04/18 17:44 VRE Culture - Final Rectal Fluid Lab Studies 09/06/18 09/06/18 09/06/18 Range/Units 10:45 06:34 05:41 WBC (4.5-11.0) 10^3/uL RBC (3.5-6.1) 10^6/uL Hgb (14.0-18.0) g/dL Hct (42.0-52.0) % MCV (80.0-105.0) fl MCH (25.0-35.0) pg MCHC (31.0-37.0) g/dl RDW (11.5-14.5) % Plt Count (120.0-450.0) 10^3/uL MPV (7.0-11.0) fl PT (9.4-12.5) SECONDS INR APTT (25.1-36.5) Seconds pCO2 45 (35-45) mm/Hg pO2 138.0 H (80-100) mm/Hg HCO3 27.2 (21-28) mmol/L ABG pH 7.39 (7.35-7.45) ABG Total CO2 28.6 H (22-28) mmol.L ABG O2 Saturation 100.0 H (95-98) % ABG O2 Content 14.6 L (15-23) ML/dl ABG Base Excess 1.8 (-2.0-3.0) mmol/L ABG Hemoglobin 10.6 L (11.7-17.4) g/dL ABG Carboxyhemoglobin 2.7 H (0.5-1.5) % POC ABG HHb (Measured) 0 (0-5) % ABG Methemoglobin 1.2 (0.0-3.0) % ABG O2 Capacity 14.6 L (16-24) mL/dl Hgb O2 Saturation 96.1 (95.0-98.0) % FiO2 40.0 % Sodium (132-148) mmol/L Potassium (3.6-5.0) mmol/L Chloride (98-107) mmol/L Carbon Dioxide (21-33) mmol/L Anion Gap (10-20) BUN (7-21) mg/dL Creatinine (0.8-1.5) mg/dl Est GFR ( Amer) Est GFR (Non-Af Amer) POC Glucose (mg/dL) 152 H (65-110) mg/dL Random Glucose (70-110) mg/dL Calcium (8.4-10.5) mg/dL Phosphorus (2.5-4.5) mg/dL Magnesium (1.7-2.2) mg/dL Total Bilirubin (0.2-1.3) mg/dL AST (17-59) U/L ALT (7-56) U/L Alkaline Phosphatase (38-126) U/L Total Protein (5.8-8.3) g/dL Albumin (3.0-4.8) g/dL Globulin gm/dL Albumin/Globulin Ratio (1.1-1.8) Urine Color Yellow (YELLOW) Urine Appearance Clear (CLEAR) Urine pH 6.0 (4.7-8.0) Ur Specific [place] 1.020 (1.005-1.035) Urine Protein 30 H (<30 mg/dL) mg/dL Urine Glucose (UA) Negative (NEGATIVE) mg/dL Urine Ketones Negative (NEGATIVE) mg/dL Urine Blood Moderate H (NEGATIVE) Urine Nitrate Negative (NEGATIVE) Urine Bilirubin Negative (NEGATIVE) Urine Urobilinogen 0.2 (<1 E.U./dL) E.U./dL Ur Leukocyte Esterase Negative (NEGATIVE) Jacki/uL Urine RBC 20 - 25 (0-2) /hpf Urine WBC 1 - 3 (0-6) /hpf Ur Epithelial Cells 0 - 2 (0-5) /hpf Amorphous Sediment Few Urine Bacteria Many (NEG) Fine Granular Casts 0 - 2 (0-2) /hpf Coarse Granular Casts Small (0-2) /hpf Urine Other Uyeast Blood Type Antibody Screen Crossmatch BBK History Checked 09/06/18 09/06/18 09/06/18 Range/Units 05:01 05:01 05:01 WBC 8.6 (4.5-11.0) 10^3/uL RBC 3.32 L (3.5-6.1) 10^6/uL Hgb 10.1 L (14.0-18.0) g/dL Hct 32.1 L (42.0-52.0) % MCV 96.7 (80.0-105.0) fl MCH 30.4 (25.0-35.0) pg MCHC 31.5 (31.0-37.0) g/dl RDW 21.0 H (11.5-14.5) % Plt Count 96 L (120.0-450.0) 10^3/uL MPV 9.4 (7.0-11.0) fl PT 15.1 H (9.4-12.5) SECONDS INR 1.31 APTT 31.7 (25.1-36.5) Seconds pCO2 (35-45) mm/Hg pO2 (80-100) mm/Hg HCO3 (21-28) mmol/L ABG pH (7.35-7.45) ABG Total CO2 (22-28) mmol.L ABG O2 Saturation (95-98) % ABG O2 Content (15-23) ML/dl ABG Base Excess (-2.0-3.0) mmol/L ABG Hemoglobin (11.7-17.4) g/dL ABG Carboxyhemoglobin (0.5-1.5) % POC ABG HHb (Measured) (0-5) % ABG Methemoglobin (0.0-3.0) % ABG O2 Capacity (16-24) mL/dl Hgb O2 Saturation (95.0-98.0) % FiO2 % Sodium (132-148) mmol/L Potassium (3.6-5.0) mmol/L Chloride (98-107) mmol/L Carbon Dioxide (21-33) mmol/L Anion Gap (10-20) BUN (7-21) mg/dL Creatinine (0.8-1.5) mg/dl Est GFR ( Amer) Est GFR (Non-Af Amer) POC Glucose (mg/dL) (65-110) mg/dL Random Glucose (70-110) mg/dL Calcium (8.4-10.5) mg/dL Phosphorus (2.5-4.5) mg/dL Magnesium (1.7-2.2) mg/dL Total Bilirubin (0.2-1.3) mg/dL AST (17-59) U/L ALT (7-56) U/L Alkaline Phosphatase (38-126) U/L Total Protein (5.8-8.3) g/dL Albumin (3.0-4.8) g/dL Globulin gm/dL Albumin/Globulin Ratio (1.1-1.8) Urine Color (YELLOW) Urine Appearance (CLEAR) Urine pH (4.7-8.0) Ur Specific [place] (1.005-1.035) Urine Protein (<30 mg/dL) mg/dL Urine Glucose (UA) (NEGATIVE) mg/dL Urine Ketones (NEGATIVE) mg/dL Urine Blood (NEGATIVE) Urine Nitrate (NEGATIVE) Urine Bilirubin (NEGATIVE) Urine Urobilinogen (<1 E.U./dL) E.U./dL Ur Leukocyte Esterase (NEGATIVE) Jacki/uL Urine RBC (0-2) /hpf Urine WBC (0-6) /hpf Ur Epithelial Cells (0-5) /hpf Amorphous Sediment Urine Bacteria (NEG) Fine Granular Casts (0-2) /hpf Coarse Granular Casts (0-2) /hpf Urine Other Blood Type O POSITIVE Antibody Screen Negative Crossmatch See Detail BBK History Checked Patient has bt 09/06/18 09/05/18 09/05/18 Range/Units 05:01 23:56 16:15 WBC (4.5-11.0) 10^3/uL RBC (3.5-6.1) 10^6/uL Hgb (14.0-18.0) g/dL Hct (42.0-52.0) % MCV (80.0-105.0) fl MCH (25.0-35.0) pg MCHC (31.0-37.0) g/dl RDW (11.5-14.5) % Plt Count (120.0-450.0) 10^3/uL MPV (7.0-11.0) fl PT (9.4-12.5) SECONDS INR APTT (25.1-36.5) Seconds pCO2 (35-45) mm/Hg pO2 (80-100) mm/Hg HCO3 (21-28) mmol/L ABG pH (7.35-7.45) ABG Total CO2 (22-28) mmol.L ABG O2 Saturation (95-98) % ABG O2 Content (15-23) ML/dl ABG Base Excess (-2.0-3.0) mmol/L ABG Hemoglobin (11.7-17.4) g/dL ABG Carboxyhemoglobin (0.5-1.5) % POC ABG HHb (Measured) (0-5) % ABG Methemoglobin (0.0-3.0) % ABG O2 Capacity (16-24) mL/dl Hgb O2 Saturation (95.0-98.0) % FiO2 % Sodium 147 (132-148) mmol/L Potassium 4.8 (3.6-5.0) mmol/L Chloride 112 H (98-107) mmol/L Carbon Dioxide 29 (21-33) mmol/L Anion Gap 10 (10-20) BUN 95 H (7-21) mg/dL Creatinine 1.3 (0.8-1.5) mg/dl Est GFR ( Amer) > 60 Est GFR (Non-Af Amer) 53 POC Glucose (mg/dL) 157 H 169 H (65-110) mg/dL Random Glucose 144 H (70-110) mg/dL Calcium 7.9 L (8.4-10.5) mg/dL Phosphorus 4.9 H (2.5-4.5) mg/dL Magnesium 2.7 H (1.7-2.2) mg/dL Total Bilirubin 2.7 H (0.2-1.3) mg/dL AST 48 (17-59) U/L ALT 62 H (7-56) U/L Alkaline Phosphatase 74 (38-126) U/L Total Protein 4.3 L (5.8-8.3) g/dL Albumin 2.1 L (3.0-4.8) g/dL Globulin 2.2 gm/dL Albumin/Globulin Ratio 0.9 L (1.1-1.8) Urine Color (YELLOW) Urine Appearance (CLEAR) Urine pH (4.7-8.0) Ur Specific [place] (1.005-1.035) Urine Protein (<30 mg/dL) mg/dL Urine Glucose (UA) (NEGATIVE) mg/dL Urine Ketones (NEGATIVE) mg/dL Urine Blood (NEGATIVE) Urine Nitrate (NEGATIVE) Urine Bilirubin (NEGATIVE) Urine Urobilinogen (<1 E.U./dL) E.U./dL Ur Leukocyte Esterase (NEGATIVE) Jacki/uL Urine RBC (0-2) /hpf Urine WBC (0-6) /hpf Ur Epithelial Cells (0-5) /hpf Amorphous Sediment Urine Bacteria (NEG) Fine Granular Casts (0-2) /hpf Coarse Granular Casts (0-2) /hpf Urine Other Blood Type Antibody Screen Crossmatch BBK History Checked 09/05/18 Range/Units 11:01 WBC (4.5-11.0) 10^3/uL RBC (3.5-6.1) 10^6/uL Hgb (14.0-18.0) g/dL Hct (42.0-52.0) % MCV (80.0-105.0) fl MCH (25.0-35.0) pg MCHC (31.0-37.0) g/dl RDW (11.5-14.5) % Plt Count (120.0-450.0) 10^3/uL MPV (7.0-11.0) fl PT (9.4-12.5) SECONDS INR APTT (25.1-36.5) Seconds pCO2 (35-45) mm/Hg pO2 (80-100) mm/Hg HCO3 (21-28) mmol/L ABG pH (7.35-7.45) ABG Total CO2 (22-28) mmol.L ABG O2 Saturation (95-98) % ABG O2 Content (15-23) ML/dl ABG Base Excess (-2.0-3.0) mmol/L ABG Hemoglobin (11.7-17.4) g/dL ABG Carboxyhemoglobin (0.5-1.5) % POC ABG HHb (Measured) (0-5) % ABG Methemoglobin (0.0-3.0) % ABG O2 Capacity (16-24) mL/dl Hgb O2 Saturation (95.0-98.0) % FiO2 % Sodium (132-148) mmol/L Potassium (3.6-5.0) mmol/L Chloride (98-107) mmol/L Carbon Dioxide (21-33) mmol/L Anion Gap (10-20) BUN (7-21) mg/dL Creatinine (0.8-1.5) mg/dl Est GFR ( Amer) Est GFR (Non-Af Amer) POC Glucose (mg/dL) 141 H (65-110) mg/dL Random Glucose (70-110) mg/dL Calcium (8.4-10.5) mg/dL Phosphorus (2.5-4.5) mg/dL Magnesium (1.7-2.2) mg/dL Total Bilirubin (0.2-1.3) mg/dL AST (17-59) U/L ALT (7-56) U/L Alkaline Phosphatase (38-126) U/L Total Protein (5.8-8.3) g/dL Albumin (3.0-4.8) g/dL Globulin gm/dL Albumin/Globulin Ratio (1.1-1.8) Urine Color (YELLOW) Urine Appearance (CLEAR) Urine pH (4.7-8.0) Ur Specific [place] (1.005-1.035) Urine Protein (<30 mg/dL) mg/dL Urine Glucose (UA) (NEGATIVE) mg/dL Urine Ketones (NEGATIVE) mg/dL Urine Blood (NEGATIVE) Urine Nitrate (NEGATIVE) Urine Bilirubin (NEGATIVE) Urine Urobilinogen (<1 E.U./dL) E.U./dL Ur Leukocyte Esterase (NEGATIVE) Jacki/uL Urine RBC (0-2) /hpf Urine WBC (0-6) /hpf Ur Epithelial Cells (0-5) /hpf Amorphous Sediment Urine Bacteria (NEG) Fine Granular Casts (0-2) /hpf Coarse Granular Casts (0-2) /hpf Urine Other Blood Type Antibody Screen Crossmatch BBK History Checked Laboratory Results - last 24 hr 09/05/18 09/05/18 09/05/18 11:01 16:15 23:56 WBC RBC Hgb Hct MCV MCH MCHC RDW Plt Count MPV PT INR APTT pCO2 pO2 HCO3 ABG pH ABG Total CO2 ABG O2 Saturation ABG O2 Content ABG Base Excess ABG Hemoglobin ABG Carboxyhemoglobin POC ABG HHb (Measured) ABG Methemoglobin ABG O2 Capacity Hgb O2 Saturation FiO2 Sodium Potassium Chloride Carbon Dioxide Anion Gap BUN Creatinine Est GFR ( Amer) Est GFR (Non-Af Amer) POC Glucose (mg/dL) 141 H 169 H 157 H Random Glucose Calcium Phosphorus Magnesium Total Bilirubin AST ALT Alkaline Phosphatase Total Protein Albumin Globulin Albumin/Globulin Ratio Urine Color Urine Appearance Urine pH Ur Specific [place] Urine Protein Urine Glucose (UA) Urine Ketones Urine Blood Urine Nitrate Urine Bilirubin Urine Urobilinogen Ur Leukocyte Esterase Urine RBC Urine WBC Ur Epithelial Cells Amorphous Sediment Urine Bacteria Fine Granular Casts Coarse Granular Casts Urine Other Blood Type Antibody Screen Crossmatch BBK History Checked 09/06/18 09/06/18 09/06/18 05:01 05:01 05:01 WBC 8.6 RBC 3.32 L Hgb 10.1 L Hct 32.1 L MCV 96.7 MCH 30.4 MCHC 31.5 RDW 21.0 H Plt Count 96 L MPV 9.4 PT 15.1 H INR 1.31 APTT 31.7 pCO2 pO2 HCO3 ABG pH ABG Total CO2 ABG O2 Saturation ABG O2 Content ABG Base Excess ABG Hemoglobin ABG Carboxyhemoglobin POC ABG HHb (Measured) ABG Methemoglobin ABG O2 Capacity Hgb O2 Saturation FiO2 Sodium 147 Potassium 4.8 Chloride 112 H Carbon Dioxide 29 Anion Gap 10 BUN 95 H Creatinine 1.3 Est GFR ( Amer) > 60 Est GFR (Non-Af Amer) 53 POC Glucose (mg/dL) Random Glucose 144 H Calcium 7.9 L Phosphorus 4.9 H Magnesium 2.7 H Total Bilirubin 2.7 H AST 48 ALT 62 H Alkaline Phosphatase 74 Total Protein 4.3 L Albumin 2.1 L Globulin 2.2 Albumin/Globulin Ratio 0.9 L Urine Color Urine Appearance Urine pH Ur Specific [place] Urine Protein Urine Glucose (UA) Urine Ketones Urine Blood Urine Nitrate Urine Bilirubin Urine Urobilinogen Ur Leukocyte Esterase Urine RBC Urine WBC Ur Epithelial Cells Amorphous Sediment Urine Bacteria Fine Granular Casts Coarse Granular Casts Urine Other Blood Type Antibody Screen Crossmatch BBK History Checked 09/06/18 09/06/18 09/06/18 05:01 05:41 06:34 WBC RBC Hgb Hct MCV MCH MCHC RDW Plt Count MPV PT INR APTT pCO2 45 pO2 138.0 H HCO3 27.2 ABG pH 7.39 ABG Total CO2 28.6 H ABG O2 Saturation 100.0 H ABG O2 Content 14.6 L ABG Base Excess 1.8 ABG Hemoglobin 10.6 L ABG Carboxyhemoglobin 2.7 H POC ABG HHb (Measured) 0 ABG Methemoglobin 1.2 ABG O2 Capacity 14.6 L Hgb O2 Saturation 96.1 FiO2 40.0 Sodium Potassium Chloride Carbon Dioxide Anion Gap BUN Creatinine Est GFR ( Amer) Est GFR (Non-Af Amer) POC Glucose (mg/dL) 152 H Random Glucose Calcium Phosphorus Magnesium Total Bilirubin AST ALT Alkaline Phosphatase Total Protein Albumin Globulin Albumin/Globulin Ratio Urine Color Urine Appearance Urine pH Ur Specific [place] Urine Protein Urine Glucose (UA) Urine Ketones Urine Blood Urine Nitrate Urine Bilirubin Urine Urobilinogen Ur Leukocyte Esterase Urine RBC Urine WBC Ur Epithelial Cells Amorphous Sediment Urine Bacteria Fine Granular Casts Coarse Granular Casts Urine Other Blood Type O POSITIVE Antibody Screen Negative Crossmatch See Detail BBK History Checked Patient has bt 09/06/18 10:45 WBC RBC Hgb Hct MCV MCH MCHC RDW Plt Count MPV PT INR APTT pCO2 pO2 HCO3 ABG pH ABG Total CO2 ABG O2 Saturation ABG O2 Content ABG Base Excess ABG Hemoglobin ABG Carboxyhemoglobin POC ABG HHb (Measured) ABG Methemoglobin ABG O2 Capacity Hgb O2 Saturation FiO2 Sodium Potassium Chloride Carbon Dioxide Anion Gap BUN Creatinine Est GFR ( Amer) Est GFR (Non-Af Amer) POC Glucose (mg/dL) Random Glucose Calcium Phosphorus Magnesium Total Bilirubin AST ALT Alkaline Phosphatase Total Protein Albumin Globulin Albumin/Globulin Ratio Urine Color Yellow Urine Appearance Clear Urine pH 6.0 Ur Specific [place] 1.020 Urine Protein 30 H Urine Glucose (UA) Negative Urine Ketones Negative Urine Blood Moderate H Urine Nitrate Negative Urine Bilirubin Negative Urine Urobilinogen 0.2 Ur Leukocyte Esterase Negative Urine RBC 20 - 25 Urine WBC 1 - 3 Ur Epithelial Cells 0 - 2 Amorphous Sediment Few Urine Bacteria Many Fine Granular Casts 0 - 2 Coarse Granular Casts Small Urine Other Uyeast Blood Type Antibody Screen Crossmatch BBK History Checked Critical Care Progress Note - Nutrition Nutrition: Nutrition Category Date Time Status NPO Diet [DIET] Diets 09/02/18 Lunch Ordered Assessment/Plan - Assessment and Plan (Free Text) Plan: Patient seen and examined on rounds with resident, agree with note with following additions/exceptions: Patient is 82yo male with PMHx of severe COPD, HTN, s/p ex-lap and ileal perforation with VRE sepsis, repeated intubations for mucus plugging, admitted to ICU for lung collapse, had bronchoscopy done last week. CXR today with better aeration Patient has had prolonged ICU/hospital stay. Awaiting tracheostomy Patient is spiking fevers, which is concerning, central line to be removed, at high risk for fungemia ID following Severe COPD HTN Respiratory failure s/p ex-lap and ileal perforation VRE sepsis Fever r/o fungemia Recommend: - cont with low tidal vol ventilation, duonebs PRN, goal sat 90% - chest PT, frequent suctioning, Pulmicort, Prednisone 10mg daily - Antibiotics as per ID, may neeed fungal converge, panculture, including fungal culture, DC Right IJ, DC Left PICC line - BP control - IV fluids - follow up ID - monitor renal function - monitor platelets - follow up Palliative care - GI ppx - DVT ppx, HSQ - Monitor in MICU Critical care time 35 minutes
[2018-09-06] MEDS: Sodium Chloride 0.9% 1,000 ML IV SCH (09:21)
--- NOTE | 2018-09-06 09:35 | RAD ---
Date of service: 09/06/2018 HISTORY: intubated COMPARISON: No prior. FINDINGS: LUNGS: Density at left lung base may represent infiltrate or pleural effusion. This is unchanged PLEURA: As above CARDIOVASCULAR: No aortic atherosclerotic calcification present. Normal cardiac size. No pulmonary vascular congestion. OSSEOUS STRUCTURES: No significant abnormalities. VISUALIZED UPPER ABDOMEN: Normal. OTHER FINDINGS: None. IMPRESSION: No change in central lines and tubes. No acute changes
--- NOTE | 2018-09-06 10:25 | PN ---
DATE: 09/03/2018 SUBJECTIVE: The patient is 82 years old, yesterday events noted. The patient went into respiratory distress. He was intubated yesterday and transferred to ICU. He had white-out of the left lung, especially upper lobe. Although, he had consolidation of left lower lung, the patient underwent bronchoscopy and had mucus plug aspirated. Followup x-ray seems to be improving. PHYSICAL EXAMINATION: GENERAL: He is sedated, on vent. VITAL SIGNS: He is afebrile, pulse 85, respirations 20, blood pressure 118/59. LUNGS: Decreased breath sound on the left upper and mid lung region. HEART: S1 and S2 audible, irregular, rate control. ABDOMEN: Soft and nontender. No rebound. No guarding. NEUROLOGIC: He is sedated. EXTREMITIES: Bilateral legs, no edema. LABORATORY DATA: WBC 3.8, hemoglobin 9.9, hematocrit 31.2, and platelets 88. Chemistry: Sodium 140, potassium 4.2, chloride 103, CO2 of 33, BUN 49, creatinine 0.6. Blood sugar of 168. Sputum cultures are negative. Blood cultures are negative. ASSESSMENT: 1. Status post respiratory failure. 2. History of hypertension. 3. Chronic atrial fibrillation. 4. History of nephrectomy, right hemicolectomy and earlier resection of anastomosis. 5. Respiratory failure. 6. Vancomycin-resistant enterococcus peritonitis, repeat cultures are negative. 7. Thrombocytopenia. PLAN: Followup x-ray seems to be pending, will be tapered down, will be given trial. There is consideration of tracheostomy. We will continue him on Mucinex. He is on Verapamil, and is on TPN, and currently is on meropenem every 8 hours, and he was given doses of vancomycin 1 g every 12 hours, it was held by Dr. Garvin. Plan is we will continue the patient on medication, current antibiotics, continue nebulizer treatment. Prognosis is poor. We will continue current management. Tri Fleming MD
[2018-09-06 10:51] LABS: URINE BILIRUBIN NEGATIVE (NEGATIVE); URINE BLOOD MODERATE (NEGATIVE); URINE GLUCOSE (UA) NEGATIVE (NEGATIVE); URINE LEUKOCYTE ESTERASE NEGATIVE Leu/uL (NEGATIVE); URINE PROTEIN 30 mg/dL (<30 mg/dL); URINE UROBILINOGEN 0.2 E.U./dL (<1 E.U./dL)
[2018-09-06 11:17] LABS: URINE APPEARANCE CLEAR (CLEAR); URINE COLOR YELLOW (YELLOW)
[2018-09-06 11:23] LABS: URINE BACTERIA MANY (NEG); URINE EPITHELIAL CELLS 0 - 2 /hpf (0-5); URINE RBC 20 - 25 /hpf (0-2)
[2018-09-06 11:24] LABS: URINE AMORPHOUS SEDIMENT FEW; URINE COARSE GRANULAR CAST SMALL /hpf (0-2); URINE FINE GRANULAR CAST 0 - 2 /hpf (0-2)
--- NOTE | 2018-09-06 12:17 | CP.PCM.PN ---
Subjective - Date & Time of Evaluation Date of Evaluation: 09/06/18 Time of Evaluation: 12:00 - Subjective Subjective: intubated,sedated, Objective - Vital Signs/Intake and Output Vital Signs (last 24 hours): Temp Pulse Resp BP Pulse Ox 101.7 F H 118 H 19 124/62 99 09/06/18 10:00 09/06/18 10:59 09/06/18 04:00 09/06/18 11:00 09/06/18 10:59 Intake and Output: 09/06/18 09/06/18 06:59 18:59 Intake Total 404 100 Output Total 1860 Balance -1456 100 - Medications Medications: Current Medications Acetylcysteine (Acetylcysteine 20%) 4 ml IH [id number] [facility] Last Admin: 09/04/18 20:05 Dose: Not Given Aspirin (Aspirin Chewable) 81 mg PO DAILY [facility] Last Admin: 09/06/18 09:21 Dose: 81 mg Budesonide (Pulmicort Respules) 0.5 mg IH [id number] [facility] Last Admin: 09/06/18 07:16 Dose: 0.5 mg Clonidine HCl (Catapres Tts1 0.1 Mg/24 Hr) 1 patch TD Q7D@1000 [facility] Last Admin: 09/03/18 15:53 Dose: 1 patch Dextrose (Dextrose 50% Inj) 0 ml IV STAT PRN; Protocol PRN Reason: Hypoglycemia Protocol Famotidine (Pepcid) 20 mg PO DAILY [facility] Last Admin: 09/06/18 09:21 Dose: 20 mg NOREPINEPHRINE BIT/0.9 % NACL (Levophed 4 Mg/ 250 Ml Ns Premixed) 4 mg in 250 mls @ 15 mls/hr IV .[id number] PRN; Protocol PRN Reason: TITRATE PER MD ORDER Last Titration: 09/02/18 18:00 Dose: 0 mcg/min, 0 mls/hr Propofol (Diprivan) 1,000 mg in 100 mls @ 1.757 mls/hr IV .Q24H PRN; Protocol PRN Reason: TITRATE PER MD ORDER Last Admin: 09/06/18 05:43 Dose: 20 mcg/kg/min, 7.027 mls/hr Meropenem (Merrem Iv 1 Gm Premix) 1 gm in 50 mls @ 100 mls/hr IVPB Q8 KD; Protocol Stop: 09/11/18 09:09 Last Admin: 09/06/18 05:34 Dose: 100 mls/hr diltiaZEM IVPB 100mg in NS (Cardizem 100mg In Ns) 100 mls @ 10 mls/hr IV .Q10H PRN; Protocol PRN Reason: TITRATE PER MD ORDER Last Admin: 09/06/18 09:23 Dose: 15 mg/hr, 15 mls/hr Acetaminophen (Ofirmev) 1,000 mg in 100 mls @ 400 mls/hr IVPB Q6H PRN PRN Reason: Temperature Stop: 09/06/18 16:13 Last Admin: 09/06/18 10:40 Dose: 400 mls/hr Dextrose (Dextrose 5% In Water 1000 Ml) 1,000 mls @ 0 mls/hr IV .Q0M PRN; Protocol PRN Reason: Hypoglycemia Protocol Sodium Chloride (Sodium Chloride 0.9%) 1,000 mls @ 100 mls/hr IV .Q10H [facility] Last Admin: 09/06/18 09:21 Dose: 100 mls/hr Insulin Human Regular (Humulin R Low) 0 units SC Q6 KD; Protocol Last Admin: 09/06/18 05:42 Dose: Not Given Levalbuterol HCl (Xopenex) 0.63 mg IH [id number] [facility] Last Admin: 09/06/18 07:16 Dose: 0.63 mg Lidocaine (Lidoderm) 1 ea TD DAILY [facility] Last Admin: 09/05/18 10:52 Dose: Not Given Metoprolol Tartrate (Lopressor) 50 mg PO BRKDIN [facility] Last Admin: 09/06/18 09:13 Dose: Not Given Prednisone (Prednisone Tab) 10 mg PO DAILY [facility] Last Admin: 09/05/18 10:54 Dose: 10 mg Verapamil HCl (Verapamil Inj) 2.5 mg IVP Q6H PRN PRN Reason: for heart rate >130 Verapamil HCl (Calan Tab) 40 mg PO TID [facility] Last Admin: 09/01/18 17:56 Dose: 40 mg - Labs Labs: 09/06/18 05:01 09/06/18 05:01 PT 15.1 SECONDS (9.4-12.5) H 09/06/18 05:01 INR 1.31 09/06/18 05:01 APTT 31.7 Seconds (25.1-36.5) 09/06/18 05:01 - Constitutional Appears: Chronically Ill - Eye Exam Eye Exam: Normal appearance - ENT Exam ENT Exam: Mucous Membranes Moist - Respiratory Exam Respiratory Exam: Decreased Breath Sounds - Cardiovascular Exam Cardiovascular Exam: REGULAR RHYTHM, +S1 - GI/Abdominal Exam GI & Abdominal Exam: Soft, Normal Bowel Sounds - Neurological Exam Neurological Exam: Altered - Skin Skin Exam: Dry, Pallor Assessment and Plan - Assessment and Plan (Free Text) Assessment: 82 year old male with history of colon cancer s/p colon resection,COPD,DM, HTN and renal insufficiency who is admitted with sepsis,anemia, respiratory failure, s/p exploratory laparotomy for ruptured ileum This progress note is to confirm the patient's wishes as expressed by him on 08/10/18: I spoke with patient's healthcare POA, Abelardo Thao via phone this morning. We reviewed the Advance Directive which was executed by patient on August 10, 2018. Mr. Thao expressed that the directive did not properly convey the patient's wishes which were discussed at that time. On that day (08/10/18) t he patient and I discussed his wishes regarding resuscitation. His son, Abelardo Thao was on speaker phone during the conversation. Mr. Hale, the patient clearly indicated that he wanted to be resuscitated by CPR and intubated/mechanical ventilation. He also agreed to temporary nutritional support. I explained the benefits and burdens of these measures. The patient and son's questions were answered. The patient went on to say that if his condition became terminal or irreversible he would not want to continue life sustaining treatment. The AD document was completed by patient and myself, a c opy was placed in the patient's chart and a copy was e- mailed to the POA, Mr. Abelardo Thao. In reviewing the Advance Directive document today, I noted I inadvertently checked the section indicating that the patient wanted life sustaining treatment such as CPR and mechanical ventilation/nutritional support if he were terminally ill or in a vegetative state. Mr Thao is requesting that the document be rescinded and another put in place which properly reflects the patient wishes. Currently the patient is intubated/ sedated and unable to do so. I explained to Mr. Thao that if the patient remains sedated or is unable to rescind, that he as the POA, may rescinded and terminate life sustaining treatment. Time spent in goals of care discussion with Mr Thao, 15 minutes Plan: Goals of care and advance care planning
[2018-09-06] MEDS ORDERED: Vancomycin 2 GM in Sodium Chloride 0.9% 500 ML IVPB ONE (13:06)
--- NOTE | 2018-09-06 13:12 | CP.PCM.PN ---
Subjective - Date & Time of Evaluation Date of Evaluation: 09/06/18 Time of Evaluation: 10:30 - Subjective Subjective: Patient continues to be on ventilator support, also spiking fevers. Objective - Vital Signs/Intake and Output Vital Signs (last 24 hours): Temp Pulse Resp BP Pulse Ox 98.2 F 102 H 19 105/56 L 99 09/06/18 04:00 09/06/18 06:00 09/06/18 04:00 09/06/18 04:00 09/06/18 04:00 Intake and Output: 09/05/18 09/06/18 18:59 06:59 Intake Total 1154 404 Output Total 1100 1860 Balance 54 -1456 - Medications Medications: Current Medications Acetylcysteine (Acetylcysteine 20%) 4 ml IH [id number] [facility] Last Admin: 09/04/18 20:05 Dose: Not Given Aspirin (Aspirin Chewable) 81 mg PO DAILY [facility] Last Admin: 09/05/18 13:24 Dose: 81 mg Budesonide (Pulmicort Respules) 0.5 mg IH [id number] [facility] Last Admin: 09/05/18 19:41 Dose: 0.5 mg Clonidine HCl (Catapres Tts1 0.1 Mg/24 Hr) 1 patch TD Q7D@1000 [facility] Last Admin: 09/03/18 15:53 Dose: 1 patch Dextrose (Dextrose 50% Inj) 0 ml IV STAT PRN; Protocol PRN Reason: Hypoglycemia Protocol Dextrose (Dextrose 50% Inj) 0 ml IV STAT PRN; Protocol PRN Reason: Hypoglycemia Protocol Famotidine (Pepcid) 20 mg PO DAILY [facility] Last Admin: 09/05/18 10:50 Dose: 20 mg Dextrose (Dextrose 5% In Water 1000 Ml) 1,000 mls @ 0 mls/hr IV .Q0M PRN; Protocol PRN Reason: Hypoglycemia Protocol NOREPINEPHRINE BIT/0.9 % NACL (Levophed 4 Mg/ 250 Ml Ns Premixed) 4 mg in 250 mls @ 15 mls/hr IV .[id number] PRN; Protocol PRN Reason: TITRATE PER MD ORDER Last Titration: 09/02/18 18:00 Dose: 0 mcg/min, 0 mls/hr Propofol (Diprivan) 1,000 mg in 100 mls @ 1.757 mls/hr IV .Q24H PRN; Protocol PRN Reason: TITRATE PER MD ORDER Last Admin: 09/06/18 05:43 Dose: 20 mcg/kg/min, 7.027 mls/hr Meropenem (Merrem Iv 1 Gm Premix) 1 gm in 50 mls @ 100 mls/hr IVPB Q8 KD; Protocol Stop: 09/11/18 09:09 Last Admin: 09/06/18 05:34 Dose: 100 mls/hr diltiaZEM IVPB 100mg in NS (Cardizem 100mg In Ns) 100 mls @ 10 mls/hr IV .Q10H PRN; Protocol PRN Reason: TITRATE PER MD ORDER Last Admin: 09/06/18 01:15 Dose: 10 mg/hr, 10 mls/hr Acetaminophen (Ofirmev) 1,000 mg in 100 mls @ 400 mls/hr IVPB Q6H PRN PRN Reason: Temperature Stop: 09/06/18 16:13 Last Admin: 09/05/18 21:17 Dose: 400 mls/hr Dextrose (Dextrose 5% In Water 1000 Ml) 1,000 mls @ 0 mls/hr IV .Q0M PRN; Protocol PRN Reason: Hypoglycemia Protocol Sodium Chloride (Sodium Chloride 0.9%) 1,000 mls @ 100 mls/hr IV .Q10H [facility] Last Admin: 09/05/18 23:34 Dose: 100 mls/hr Insulin Human Regular (Humulin R Low) 0 units SC Q6 [facility]; Protocol Last Admin: 09/06/18 05:42 Dose: Not Given Levalbuterol HCl (Xopenex) 0.63 mg IH [id number] [facility] Last Admin: 09/06/18 03:04 Dose: 0.63 mg Lidocaine (Lidoderm) 1 ea TD DAILY [facility] Last Admin: 09/05/18 10:52 Dose: Not Given Metoprolol Tartrate (Lopressor) 50 mg PO BRKDIN [facility] Last Admin: 09/05/18 17:39 Dose: 50 mg Prednisone (Prednisone Tab) 10 mg PO DAILY [facility] Last Admin: 09/05/18 10:54 Dose: 10 mg Verapamil HCl (Verapamil Inj) 2.5 mg IVP Q6H PRN PRN Reason: for heart rate >130 Verapamil HCl (Calan Tab) 40 mg PO TID [facility] Last Admin: 09/01/18 17:56 Dose: 40 mg - Labs Labs: 09/06/18 05:01 09/05/18 07:00 PT 15.1 SECONDS (9.4-12.5) H 09/06/18 05:01 INR 1.31 09/06/18 05:01 APTT 31.7 Seconds (25.1-36.5) 09/06/18 05:01 - Constitutional Appears: Cachectic, Chronically Ill, Other (intubated, sedated) - Head Exam Head Exam: NORMAL INSPECTION - Neck Exam Neck Exam: absent: Meningismus - Respiratory Exam Respiratory Exam: Decreased Breath Sounds - Cardiovascular Exam Cardiovascular Exam: +S1, +S2 - GI/Abdominal Exam GI & Abdominal Exam: Soft. absent: Tenderness Additional comments: RUSSELL drain in place - Extremities Exam Additional comments: right IJ TLC in place, left arm IV line in place Assessment and Plan - Assessment and Plan (Free Text) Plan: Assessment sepsis S/P VDRF due to perforated ileum S/P ex-lap and resection of terminal ileum and primary anastomosis, growing VRE and C. tropicalis, now with VDRF with hypotension, consider severe sepsis R/O line-related infection, R/O HCAP S/P treatment for HCAP rectal cancer atrial fibrillation GERD anxiety disorder chronic CHF CAD Plan has been on Merrem and will continue this and will start Daptomycin, a dose of Vancomycin IV and start Mycamine as well pending repeat blood cx today - discussed with Dr. Du and we both agree that the IV lines have to be removed / changed - patient is at risk for fungal infections since that patient has been on parenteral nutrition reviewed CXR showing unchanged right lower lobe opacity overall prognosis is poor
[2018-09-06] MEDS ORDERED: DAPTOmycin 500 mg Inj (Cubicin) IV SCH (13:15)
[2018-09-06] MEDS: Micafungin 100 MG in Sodium Chloride 0.9% 100 ML IV SCH (14:24)
[2018-09-06] MEDS: Lidocaine 5% Patch TD SCH (15:20)
--- NOTE | 2018-09-06 15:26 | CP.PCM.PN ---
Subjective - Date & Time of Evaluation Date of Evaluation: 09/06/18 Time of Evaluation: 07:30 - Subjective Subjective: General Surgery Dr. Du Pt S&E @bedside. Pt febrile overnight w/ Tmax 102. Still intubated. Sedation held this morning to assess mental status for tracheostomy placement. GCS 3T-5T. Cardizem gtt running. off pressors. Tube feeds held for possible OR. Objective - Vital Signs/Intake and Output Vital Signs (last 24 hours): Temp Pulse Resp BP Pulse Ox 102 F H 125 H 19 119/59 L 99 09/06/18 15:21 09/06/18 14:59 09/06/18 04:00 09/06/18 15:00 09/06/18 14:59 Intake and Output: 09/06/18 09/06/18 06:59 18:59 Intake Total 404 100 Output Total 1860 Balance -1456 100 - Medications Medications: Current Medications Acetylcysteine (Acetylcysteine 20%) 4 ml IH [id number] [facility] Last Admin: 09/04/18 20:05 Dose: Not Given Aspirin (Aspirin Chewable) 81 mg PO DAILY [facility] Last Admin: 09/06/18 09:21 Dose: 81 mg Budesonide (Pulmicort Respules) 0.5 mg IH [id number] [facility] Last Admin: 09/06/18 07:16 Dose: 0.5 mg Clonidine HCl (Catapres Tts1 0.1 Mg/24 Hr) 1 patch TD Q7D@1000 [facility] Last Admin: 09/03/18 15:53 Dose: 1 patch Dextrose (Dextrose 50% Inj) 0 ml IV STAT PRN; Protocol PRN Reason: Hypoglycemia Protocol Famotidine (Pepcid) 20 mg PO DAILY [facility] Last Admin: 09/06/18 09:21 Dose: 20 mg NOREPINEPHRINE BIT/0.9 % NACL (Levophed 4 Mg/ 250 Ml Ns Premixed) 4 mg in 250 mls @ 15 mls/hr IV .[id number] PRN; Protocol PRN Reason: TITRATE PER MD ORDER Last Titration: 09/02/18 18:00 Dose: 0 mcg/min, 0 mls/hr Propofol (Diprivan) 1,000 mg in 100 mls @ 1.757 mls/hr IV .Q24H PRN; Protocol PRN Reason: TITRATE PER MD ORDER Last Admin: 09/06/18 05:43 Dose: 20 mcg/kg/min, 7.027 mls/hr Meropenem (Merrem Iv 1 Gm Premix) 1 gm in 50 mls @ 100 mls/hr IVPB Q8 KD; Protocol Stop: 09/11/18 09:09 Last Admin: 09/06/18 14:25 Dose: 100 mls/hr diltiaZEM IVPB 100mg in NS (Cardizem 100mg In Ns) 100 mls @ 10 mls/hr IV .Q10H PRN; Protocol PRN Reason: TITRATE PER MD ORDER Last Admin: 09/06/18 09:23 Dose: 15 mg/hr, 15 mls/hr Acetaminophen (Ofirmev) 1,000 mg in 100 mls @ 400 mls/hr IVPB Q6H PRN PRN Reason: Temperature Stop: 09/06/18 16:13 Last Admin: 09/06/18 10:40 Dose: 400 mls/hr Dextrose (Dextrose 5% In Water 1000 Ml) 1,000 mls @ 0 mls/hr IV .Q0M PRN; Protocol PRN Reason: Hypoglycemia Protocol Sodium Chloride (Sodium Chloride 0.9%) 1,000 mls @ 100 mls/hr IV .Q10H KD Last Admin: 09/06/18 09:21 Dose: 100 mls/hr Micafungin Sodium 100 mg/ (Sodium Chloride) 100 mls @ 100 mls/hr IV DAILY KD; Protocol Stop: 09/13/18 12:46 Last Admin: 09/06/18 14:24 Dose: 100 mls/hr Daptomycin 610 mg/ Sodium (Chloride) 100 mls @ 200 mls/hr IV Q24H KD Stop: 09/13/18 13:16 Vancomycin HCl 2 gm/ Sodium (Chloride) 500 mls @ 170 mls/hr IVPB ONCE ONE; Protocol Stop: 09/06/18 16:02 Last Admin: 09/06/18 14:23 Dose: 170 mls/hr Insulin Human Regular (Humulin R Low) 0 units SC Q6 KD; Protocol Last Admin: 09/06/18 15:19 Dose: Not Given Levalbuterol HCl (Xopenex) 0.63 mg IH [id number] [facility] Last Admin: 09/06/18 13:18 Dose: 0.63 mg Metoprolol Tartrate (Lopressor) 50 mg PO BRKDIN [facility] Last Admin: 09/06/18 09:13 Dose: Not Given Prednisone (Prednisone Tab) 10 mg PO DAILY [facility] Last Admin: 09/05/18 10:54 Dose: 10 mg Verapamil HCl (Verapamil Inj) 2.5 mg IVP Q6H PRN PRN Reason: for heart rate >130 Verapamil HCl (Calan Tab) 40 mg PO TID [facility] Last Admin: 09/01/18 17:56 Dose: 40 mg - Labs Labs: 09/06/18 05:01 09/06/18 05:01 PT 15.1 SECONDS (9.4-12.5) H 09/06/18 05:01 INR 1.31 09/06/18 05:01 APTT 31.7 Seconds (25.1-36.5) 09/06/18 05:01 - Constitutional Appears: Toxic, No Acute Distress - Head Exam Head Exam: NORMAL INSPECTION - Eye Exam Eye Exam: Normal appearance - ENT Exam ENT Exam: Mucous Membranes Moist Additional comments: Dobhoff and ETT in place - Respiratory Exam Respiratory Exam: NORMAL BREATHING PATTERN (mechanical ventilation). absent: Accessory Muscle Use, Respiratory Distress - Cardiovascular Exam Cardiovascular Exam: absent: Bradycardia, Tachycardia - GI/Abdominal Exam GI & Abdominal Exam: Soft. absent: Distended, Firm, Guarding, Tenderness, Rebound Additional comments: incisions c/d/i stool present in ostomy mayra w/ 10cc serous drainage - Exam Additional comments: [place] cath in place - Extremities Exam Additional comments: +2 pitting edema to mid thigh - Neurological Exam Neurological Exam: absent: Alert, Awake - Psychiatric Exam Additional comments: unable to assess - Skin Skin Exam: Dry, Normal Color, Warm Assessment and Plan - Assessment and Plan (Free Text) Assessment: 82M s/p ex lap w/ ileal perforation w/ VRE+ peritonitis now resolved, with new left lung opacification s/p intubation and bronchioalveolar lavage Plan: - trach rescheduled for 09/07, telephone consent obtained from son and placed in chart - Vent weaning per ICU - cont tube feeds, hold after midnight - Cont to monitor ostomy and mayra output - IV Abx per ID - VRE screen (+) - F/u body fluids Cx --> (+) Reshma x1 - Daily labs - Replete electrolytes PRN Further recs per Dr. Florian West DO PGY3
--- NOTE | 2018-09-06 17:55 | PN ---
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 Postoperatively, he had a terminal ileal perforation (not anastomotic) and had that resected and was doing well. He has had multiple complications including left mainstem bronchus occlusion due to inadequately clearing secretions requiring intubation and bronchoscopy. His most recent event occurred just before Thanksgiving and the patient was cleared with intubation and bronchoscopy, but the intensive care team felt that this was enough occlusions and that he should have a tracheostomy for airway access for secretion management. This has been discussed with the family over the past several days and including today describing the need for adequate suctioning which the patient has not been very compliant with and the problem with anticoagulation for his chronic atrial fibrillation which would make nasotracheal suction difficult. The patient had a previous rectal resection approximately 18 years ago and has had no recurrence since that time. Remainder of his intestine is intact with right hemicolectomy and the transverse colon and descending colon still in place with an end-colostomy. Over the past three weeks, he has had VRE growing out in all the cultures from the abdominal cavity until the past 10 days when two cultures have come back negative. At this point, he has colonized his colostomy with VRE, but the abdominal cultures remained negative at this point. The night prior to this, the patient developed 102.8 fever and became somewhat septic and extensive discussion was held at this point with the patient's son who speaks for the rest of the family with whom he consults with and has agreed to placing a tracheostomy to replace the orotracheal tube and reduce the amount of sedation needed. This attending has described the setback as presumptively temporary and not a terminal irretrievable event and the patient's POLST will remain with the full code at this time. It is the surgeon's opinion that we should delay and postpone for 24 hours removing the triple-lumen catheter. keeping the dual PICC in place as it is the only access left, and attempt to correct the septic event before bringing him back to the operating room. At this point, the patient remains normotensive with a pulse of 110-plus and is comfortable and stable, but does not respond well to verbal stimuli at this point, has been placed on his Diprivan sedation. Multiple setbacks were encountered, but the patient's cultures are coming back better and the patient will probably recover well if multiple other comorbidities respond to treatment at this point. Rocael Du MD
--- NOTE | 2018-09-06 18:00 | PN ---
DATE: 09/06/2018 SUBJECTIVE: This 82-year-old male was examined at his bedside on the morning of 09/06/2018. He was in ICU bed #1. He remains intubated and is receiving Diprivan for sedation. His case was reviewed in detail with intensive care nurse, Becky Brar registered nurse. The patient had hyperkalemia last evening and as a result was given Kayexalate. This resulted in a negative fluid balance between his colostomy bag and urine output and now the patient is in negative balance of approximately 1556 mL. PHYSICAL EXAMINATION: GENERAL: He remains in atrial fibrillation on the court recording monitor. VITAL SIGNS: Temperature was 101.7, respirations 18, pulse 109 and pulse ox 99% on FiO2 40%. HEENT: Head: Normocephalic, atraumatic. NECK: Supple. HEART: Irregular S1, S2. LUNGS: With rhonchi. ABDOMEN: Soft. Colostomy functioning. EXTREMITIES: No edema. SKIN: Without rash. NEUROLOGICAL: Sedated. VASCULAR: Legs warm to touch. PSYCHOLOGICAL: Cannot be assessed. LABORATORY DATA: White count 8600, hemoglobin 10.1, hematocrit 32.1, platelets 96,000. Sodium 147, K 4.8, chloride 112, bicarb 29, BUN 95, creatinine 1.3, random blood sugar 152, calcium 7.9. Phosphorous 4.9, magnesium 2.7. IMPRESSION: An 82-year-old male, now with most recent wound cultures growing VRE status post right hemicolectomy, status post repair of ruptured ileum with comorbidities of prerenal azotemia in the setting of negative fluid balance, chronic obstructive pulmonary disease, respiratory failure, chronic A fib, chronic hypertension, stable atherosclerotic heart disease, systolic congestive heart failure, insulin-dependent diabetes mellitus, peptic ulcer disease with gastroesophageal reflux disease and sepsis. PLAN: My plans are to give this patient 300 mL of water via his NG tube in addition to his Pulmocare at 50 mL/hour. He is ordered to receive 0.9 saline at 50 mL/hour and will continue on Xopenex, IV vancomycin, Pulmicort inhalational therapy, prednisone, Pepcid, micafungin, meropenem, Lopressor, Lidoderm, Humulin R insulin, Diprivan, clonidine and Ecotrin. Based on his laboratories and clinical progress, additional diagnostic workup and testing will be entertained. All of the above was reviewed with nurse Brar a registered nurse. All questions were answered. Sara Ramirez MD
--- NOTE | 2018-09-06 18:45 | PN ---
DATE: 09/06/2018 SEX OF THE PATIENT: Male. AGE: 82. REASON FOR CONSULTATION AND FOLLOWUP: Atrial fibrillation, status post respiratory failure, status post abdominal surgery, for possible tracheostomy today. PHYSICAL EXAMINATION: GENERAL: The patient is being on the vent, sedated. VITAL SIGNS: Heart rate 100, blood pressure 124/62. HEENT: PERRLA, intact. NECK: Supple. No carotid bruit or thyromegaly. CHEST: Clear to auscultation. HEART: S1, S2 regular. ABDOMEN: Soft. EXTREMITIES: Clubbing and cyanosis negative. LABORATORY DATA: Blood workup as follows: WBC 8.6, hemoglobin 10.1, hematocrit 32.1, platelet count 96. Chemistries show sodium 147, potassium 4.6, chloride 102, carbon dioxide 29, anion gap of 10, BUN 95, creatinine 1.3. IMPRESSION: An 82-year-old male with past medical history significant for colostomy in the past, history of chronic atrial fibrillation, hypertension, hyperlipidemia, recurrent collapse of the left lung, status post multiple bronch, on ventilator, history of cecal villous adenoma, status post resection, complicated by perforation of the hollow viscus, exploratory laparotomy, end-to-end anastomosis, history of AAA, endovascular repair with abdominal aortic aneurysm. Now the patient is vent dependent and going for possible tracheostomy today. RECOMMENDATIONS: Continue IV Cardizem until the patient has the tracheostomy done, then we will consider through the NG-tube Cardizem. Continue verapamil which is on hold, continue broad-spectrum antibiotic, continue verapamil 2.5 mg IV every 6 hours p.r.n. We will follow with you. Overall, the patient's condition is critical. Long-term prognosis is guarded. Thank you Dr. Du for providing the opportunity in taking care of the patient, Roshan Hale. Gladis Greenfield MD
[2018-09-06] MEDS ORDERED: Amikacin 500 MG in Dextrose 5% In Water 100 ML IVPB ONE (23:00)
--- NOTE | 2018-09-06 23:40 | PN ---
DATE: 09/06/2018 SUBJECTIVE: The patient is an 82-year-old, seen and examined. He is administrated on vent, spiked fever this morning. He was schedule for tracheostomy but it was postponed because of his fever. PHYSICAL EXAMINATION: VITAL SIGNS: Temperature 102.2, pulse 109, respirations 16, and blood pressure 122/59. LUNGS: Bilateral fair airflow. NECK: He has triple lumen in his right neck. ABDOMEN: Soft. Colostomy is functional. RUSSELL drain has 150 mL output. EXTREMITIES: Bilateral legs, no edema. LABORATORY EXAMINATION: WBC is 8.6, hemoglobin 10, hematocrit 32, platelets 96. Chemistry: Sodium 147, potassium 4.8, chloride 112, CO2 of 29, BUN 95, creatinine 1.3, blood sugar of 126. normal angelita. Blood cultures drawn on 09/02/2018 are negative. ASSESSMENT: 1. Respiratory failure. 2. Status post right hemicolectomy. 3. Vancomycin-resistant enterococcus peritonitis. 4. Atrial fibrillation. 5. Seizure disorder. 6. Generalized weakness. PLAN: Currently, the patient is on aspirin 81 daily. He is on verapamil. He is getting nasogastric feeding. He is on Catapres patch. He is getting daptomycin. He is on meropenem, micafungin, and steroids are tapered down; and he was also given a dose of vancomycin. Prognosis seems to be poor. The patient is a FULL CODE. We will reach out to the family. Dr. Du is in contact with family; however, I have been discussing overall condition. Tri Fleming MD
[2018-09-07] MEDS: Insulin Reg-LOW-Coverage SC SCH ×3 (00:13→11:29)
[2018-09-07] MEDS: Levalbuterol 0.63 MG/3 ML Inhal Soln UD IH SCH ×4 (02:19→20:26)
[2018-09-07] MEDS: Meropenem IV 1 gm in NS 1 GM/50 ML BAG IVPB SCH ×3 (05:43→21:07)
[2018-09-07] MEDS: diltiaZEM IVPB 100mg in NS 100 ML IV PRN ×2 (05:44→14:45)
[2018-09-07] MEDS: Sodium Chloride 0.9% 1,000 ML IV SCH (05:45)
[2018-09-07] MEDS: Propofol 10 mg/ml 1,000 MG/100 ML VIAL IV PRN ×2 (05:45→21:12)
[2018-09-07 05:53] LABS: ARTERIAL BLOOD GAS HCO3 24.3 mmol/L (21-28); ARTERIAL BLOOD GAS HEMOGLOBIN 15.7 g/dL (11.7-17.4); ARTERIAL BLOOD GAS O2 CAPACITY 21.6 mL/dl (16-24); ARTERIAL BLOOD GAS O2 CONTENT 21.6 ML/dl (15-23); ARTERIAL BLOOD GAS PCO2 44 mm/Hg (35-45); ARTERIAL BLOOD GAS PH 7.35 (7.35-7.45); ARTERIAL BLOOD GAS TCO2 25.7 mmol.L (22-28)
[2018-09-07 06:01] LABS: HEMOGLOBIN 10.1 g/dL (14.0-18.0); MEAN CELL VOLUME 98.5 fl (80.0-105.0); MEAN CORPUSCULAR HEMOGLOBIN 30.1 pg (25.0-35.0); MEAN CORPUSCULAR HGB CONC 30.5 g/dl (31.0-37.0); MEAN PLATELET VOLUME 10.6 fl (7.0-11.0); RBC 3.36 10^6/uL (3.5-6.1); RED CELL DISTRIBUTION WIDTH 21.1 % (11.5-14.5); WHITE BLOOD COUNT 12.9 10^3/uL (4.5-11.0)
[2018-09-07 06:27] LABS: ALB/GLOB RATIO 0.9 (1.1-1.8); ALBUMIN 2.1 g/dL (3.0-4.8); ALT/SGPT 66 U/L (7-56); AST/SGOT 46 U/L (17-59); BLOOD UREA NITROGEN 109 mg/dL (7-21); CALCIUM 7.9 mg/dL (8.4-10.5); GFR NON-AFRICAN AMERICAN 58
--- NOTE | 2018-09-07 07:47 | PN ---
DATE: 09/07/2018 PULMONARY NOTE SUBJECTIVE: The patient remains in the ICU and on the ventilator. He is currently sedated. PHYSICAL EXAMINATION: VITAL SIGNS: Temperature is 98.4, pulse 101, respirations 18/14, blood pressure 111/65. HEENT: Normocephalic, atraumatic. NECK: No JVD. CARDIOVASCULAR: Systolic ejection murmur at the lower left sternal border. Questionable S3 gallop. LUNGS: Decreased breath sounds at the bases (much improved overall). Minimal/less rhonchi. No wheezing. EXTREMITIES: Mild edema. No cyanosis, no clubbing. GASTROINTESTINAL: Abdomen is soft and nondistended. Abdomen is postoperative. SKIN: No acute rash. NEUROLOGIC: Limited at the present time. PERTINENT LABORATORY DATA: Chest x-ray was repeated this morning and reviewed. There is continued increased aeration noted to the left base. There are no significant infiltrates. Arterial blood gas was done on PRVC 14, tidal volume 400, FiO2 40%. Results are: PH 7.35, pCO2 of 44, pO2 of 167. IMPRESSION: 1. Recurrent left lung atelectasis. 2. Congestive heart failure. 3. Atrial fibrillation. 4. Intra-abdominal perforation. 5. Status post right hemicolectomy. 6. Advanced chronic obstructive pulmonary disease. 7. Anemia, thrombocytopenia. PLAN: The patient remains in the ICU. He remains sedated and on the ventilator. I did discuss the case with the night nurse at length. The night nurse stated that the patient had a pretty good night. However, the night nurse also stated that the patient did have fevers last night. I did review the chest x-ray as above. There is continued increased aeration noted to the left lower lobe/left base. There are no significant infiltrates. I have also reviewed the arterial blood gas. The arterial blood gas also continues to improve -- with no significant alveolar-arterial gradient. The patient is remaining on the ventilator for now. We are awaiting for the timing of the tracheostomy. I certainly will discuss the case with Surgery this morning. On physical exam, there is much less bronchospasm noted. I will continue with the current nebulizer treatments, inhaled steroids, and low-dose prednisone for now. Inputs by Cardiology and Infectious Disease are also noted. The patient is currently critically ill at this point in time. His overall status/prognosis remains very guarded at best. I did have a long talk with the son yesterday in reference to tracheostomy. He is in agreement. I will discuss the above with the entire ICU team in the next few moments. I will also discuss the above with the attending physician later this morning. Rosalio Blevins MD MTDJevon
--- NOTE | 2018-09-07 08:11 | RAD ---
Date of service: 09/07/2018 HISTORY: f/u COMPARISON: Portable chest 09/06/2018. FINDINGS: LUNGS: Endotracheal and feeding tubes do not appear significantly changed in the interval. Prior right central venous line appears to have been removed with left PICC unchanged in position. Left hemidiaphragm appears completely silhouetted suggesting probable atelectasis though infiltrate is not excluded here. No additional airspace disease bilaterally. PLEURA: Trace fluid minor fissure. Trace of pleural effusion not excluded. No prominent pneumothorax bilaterally. Patient's lower face obscures left apex however. CARDIOVASCULAR: Calcific atherosclerotic changes are seen related to the thoracic aorta. Normal cardiac size. No pulmonary vascular congestion. OSSEOUS STRUCTURES: No significant abnormalities. VISUALIZED UPPER ABDOMEN: Normal. OTHER FINDINGS: None. IMPRESSION: Increased opacity at the left base suggest increased likely airspace disease with trace of pleural effusion not excluded. Trace fluid noted minor fissure. Tubes and catheters stable with exception of right central venous line which has now been removed.
[2018-09-07] MEDS: Budesonide 0.5 mg/2 ml Inhal Susp UD IH SCH ×2 (08:14→20:26)
[2018-09-07] MEDS: Micafungin 100 MG in Sodium Chloride 0.9% 100 ML IV SCH (09:37)
--- NOTE | 2018-09-07 10:45 | CP.PCM.PCO ---
Physician Communication Note - Physician Communication Note Physician Communication Note: Needs TRACH/Change TLC today
--- NOTE | 2018-09-07 10:58 | CP.CCUPN ---
<Godfrey Lehman - Last Filed: 09/07/18 10:52> CCU Subjective - Physician Review Subjective (Free Text): Godfrey Lehman, PGY1 ICU Progress Note for Dr. Andujar Patient was seen and examined at bedside this morning. Patient had a Tmax 101 overnight. Currently afebrile (Temp 98), HR 101 with Afib noted on monitor. ROS unable to be obtained since patient is intubated. Opens eyes to verbal stimuli, not following commands. Patient is still on sedatives: propofol @ 10 mcg/kg/min. Also on cardizem gtt at 15 mg/hr. Vent settings noted: PRVC 400/14/8/40%. R-IJ central line was removed yesterday afternoon. Mcintosh, ET tube, NG tube, ostomy bag are in place. CCU Objective - Vital Signs / Intake & Output Vital Signs (Last 4 hours): Vital Signs Temp Pulse BP Pulse Ox 09/07/18 09:36 99 H 96/56 L 09/07/18 08:00 91.9 F L 102 H 111/66 100 09/07/18 07:00 98.8 F 97 H 109/69 100 Intake and Output (Last 8hrs): Intake & Output 09/06/18 09/07/18 09/07/18 22:59 06:59 14:59 Intake Total 1700 1572 Output Total 775 720 Balance 925 852 Weight 64.41 kg Intake: IV 1700 1572 Cardizem 1500 180 Left Upper arm 1200 Propofol 42 Oral 0 Output: Drainage 75 320 Colostomy 0 200 Right Abdomen 75 120 Urine 700 400 Condom 700 400 Other: # Bowel Movements 0 - Physical Exam Head: Positive for: Atraumatic, Normocephalic Pupils: Positive for: Sluggish Mouth: Positive for: Moist Mucous Membranes, Other (ET tube in place) Pharnyx: Positive for: Normal Nose (External): Positive for: Other (NG tube in place) Neck: Negative for: JVD, Lymphadenopathy Respiratory/Chest: Positive for: Clear to Auscultation. Negative for: Respiratory Distress, Accessory Muscle Use, Wheezes, Rales, Rhonchi Cardiovascular: Positive for: Irregular Rhythm (Afib), Peripheal Pulses Present Abdomen: Positive for: Normal Bowel Sounds, Other ( Colostomy bag in place). Negative for: Tenderness, Distention, Peritoneal Signs, Mass/Organomegaly Genitourinary Male: Positive for: Other (Mcintosh in place) Upper Extremity: Positive for: NORMAL PULSES. Negative for: Edema Lower Extremity: Positive for: NORMAL PULSES, Other (No pitting edema noted on bilateral low ext. ). Negative for: Edema, CALF TENDERNESS Skin: Positive for: Warm, Dry, Normal Color Psychiatric: Positive for: Lethargic. Negative for: Alert, Oriented x 3 - Medications Active Medications: Active Medications Generic Name Dose Route Start Last Admin Trade Name Freq PRN Reason Stop Dose Admin Acetylcysteine 4 ml 09/02/18 08:00 09/04/18 20:05 Acetylcysteine 20% IH Not Given [id number] Aspirin 81 mg 09/05/18 11:30 09/07/18 09:35 Aspirin Chewable PO 81 mg DAILY KD Administration Budesonide 0.5 mg 08/13/18 08:00 09/07/18 08:14 Pulmicort Respules IH 0.5 mg [id number] KD Administration Clonidine HCl 1 patch 08/13/18 10:00 09/03/18 15:53 Catapres Tts1 0.1 Mg/24 Hr TD 1 patch Q7D@1000 KD Administration Dextrose 0 ml 09/05/18 15:56 Dextrose 50% Inj IV STAT PRN Hypoglycemia Protocol Protocol Famotidine 20 mg 08/21/18 10:00 09/07/18 09:35 Pepcid PO 20 mg DAILY KD Administration NOREPINEPHRINE BIT/0.9 % NACL 4 mg in 250 mls @ 15 mls/hr 09/02/18 09:00 09/02/18 18:00 Levophed 4 Mg/ 250 Ml Ns Premixed IV 0 mcg/min .[id number] PRN 0 mls/hr TITRATE PER MD ORDER Titration Protocol 4 MCG/MIN Propofol 1,000 mg in 100 mls @ 1.757 mls/hr 09/02/18 09:00 09/07/18 05:45 Diprivan IV 10 mcg/kg/min .Q24H PRN 3.514 mls/hr TITRATE PER MD ORDER Administration Protocol 5 MCG/KG/MIN Meropenem 1 gm in 50 mls @ 100 mls/hr 09/02/18 09:08 09/07/18 05:43 Merrem Iv 1 Gm Premix IVPB 09/11/18 09:09 100 mls/hr Q8 KD Administration Protocol diltiaZEM IVPB 100mg in NS 100 mls @ 10 mls/hr 09/02/18 09:16 09/07/18 05:44 Cardizem 100mg In Ns IV 15 mg/hr .Q10H PRN 15 mls/hr TITRATE PER MD ORDER Administration Protocol 10 MG/HR Dextrose 1,000 mls @ 0 mls/hr 09/05/18 15:56 Dextrose 5% In Water 1000 Ml IV .Q0M PRN Hypoglycemia Protocol Protocol Per Protocol Sodium Chloride 1,000 mls @ 100 mls/hr 09/05/18 23:15 09/07/18 05:45 Sodium Chloride 0.9% IV 100 mls/hr .Q10H KD Administration Micafungin Sodium 100 mg/ 100 mls @ 100 mls/hr 09/06/18 12:45 09/07/18 09:37 Sodium Chloride IV 09/13/18 12:46 100 mls/hr DAILY KD Administration Protocol Daptomycin 610 mg/ Sodium 100 mls @ 200 mls/hr 09/06/18 13:15 09/06/18 16:16 Chloride IV 09/13/18 13:16 200 mls/hr Q24H KD Administration Acetaminophen 1,000 mg in 100 mls @ 400 mls/hr 09/06/18 21:45 09/06/18 22:31 Ofirmev IVPB 09/08/18 21:46 400 mls/hr Q6H PRN Administration Temperature Insulin Human Regular 0 units 09/03/18 12:00 09/07/18 07:22 Humulin R Low SC Not Given Q6 KD Protocol Levalbuterol HCl 0.63 mg 08/18/18 08:00 09/07/18 08:14 Xopenex IH 0.63 mg [id number] KD Administration Metoprolol Tartrate 50 mg 08/29/18 17:00 09/07/18 09:36 Lopressor PO Not Given BRKDIN KD Prednisone 10 mg 08/27/18 10:00 09/07/18 09:39 Prednisone Tab PO 10 mg DAILY KD Administration Verapamil HCl 2.5 mg 08/31/18 09:03 Verapamil Inj IVP Q6H PRN for heart rate >130 Verapamil HCl 40 mg 09/01/18 10:00 09/01/18 17:56 Calan Tab PO 40 mg TID KD Administration - Patient Studies Lab Studies: Microbiology Studies 09/02/18 12:05 Blood Culture - Preliminary Blood NO GROWTH AFTER 4 DAYS 09/02/18 11:55 Blood Culture - Preliminary Blood NO GROWTH AFTER 4 DAYS 09/04/18 17:44 VRE Culture - Final Rectal Fluid Lab Studies 09/07/18 09/07/18 09/07/18 Range/Units 05:30 05:30 05:30 WBC 12.9 H D (4.5-11.0) 10^3/uL RBC 3.36 L (3.5-6.1) 10^6/uL Hgb 10.1 L (14.0-18.0) g/dL Hct 33.1 L (42.0-52.0) % MCV 98.5 (80.0-105.0) fl MCH 30.1 (25.0-35.0) pg MCHC 30.5 L (31.0-37.0) g/dl RDW 21.1 H (11.5-14.5) % Plt Count 101 L (120.0-450.0) 10^3/uL MPV 10.6 (7.0-11.0) fl pCO2 44 (35-45) mm/Hg pO2 167.0 H (80-100) mm/Hg HCO3 24.3 (21-28) mmol/L ABG pH 7.35 (7.35-7.45) ABG Total CO2 25.7 (22-28) mmol.L ABG O2 Saturation 100.0 H (95-98) % ABG O2 Content 21.6 (15-23) ML/dl ABG Base Excess -1.6 (-2.0-3.0) mmol/L ABG Hemoglobin 15.7 (11.7-17.4) g/dL ABG Carboxyhemoglobin 2.2 H (0.5-1.5) % POC ABG HHb (Measured) 0 (0-5) % ABG Methemoglobin 1.1 (0.0-3.0) % ABG O2 Capacity 21.6 (16-24) mL/dl Hgb O2 Saturation 96.6 (95.0-98.0) % FiO2 40.0 % Sodium 148 (132-148) mmol/L Potassium 4.5 (3.6-5.0) mmol/L Chloride 117 H (98-107) mmol/L Carbon Dioxide 27 (21-33) mmol/L Anion Gap 9 L (10-20) BUN 109 H (7-21) mg/dL Creatinine 1.2 (0.8-1.5) mg/dl Est GFR ( Amer) > 60 Est GFR (Non-Af Amer) 58 POC Glucose (mg/dL) (65-110) mg/dL Random Glucose 119 H (70-110) mg/dL Calcium 7.9 L (8.4-10.5) mg/dL Phosphorus 6.3 H (2.5-4.5) mg/dL Magnesium 2.9 H (1.7-2.2) mg/dL Total Bilirubin 2.5 H (0.2-1.3) mg/dL AST 46 (17-59) U/L ALT 66 H (7-56) U/L Alkaline Phosphatase 71 (38-126) U/L Total Protein 4.4 L (5.8-8.3) g/dL Albumin 2.1 L (3.0-4.8) g/dL Globulin 2.3 gm/dL Albumin/Globulin Ratio 0.9 L (1.1-1.8) Urine Color (YELLOW) Urine Appearance (CLEAR) Urine pH (4.7-8.0) Ur Specific [place] (1.005-1.035) Urine Protein (<30 mg/dL) mg/dL Urine Glucose (UA) (NEGATIVE) mg/dL Urine Ketones (NEGATIVE) mg/dL Urine Blood (NEGATIVE) Urine Nitrate (NEGATIVE) Urine Bilirubin (NEGATIVE) Urine Urobilinogen (<1 E.U./dL) E.U./dL Ur Leukocyte Esterase (NEGATIVE) Jacki/uL Urine RBC (0-2) /hpf Urine WBC (0-6) /hpf Ur Epithelial Cells (0-5) /hpf Amorphous Sediment Urine Bacteria (NEG) Fine Granular Casts (0-2) /hpf Coarse Granular Casts (0-2) /hpf Urine Other Influenza Typ A,B (EIA) (NEGATIVE) 09/06/18 09/06/18 09/06/18 Range/Units 23:50 23:40 12:38 WBC (4.5-11.0) 10^3/uL RBC (3.5-6.1) 10^6/uL Hgb (14.0-18.0) g/dL Hct (42.0-52.0) % MCV (80.0-105.0) fl MCH (25.0-35.0) pg MCHC (31.0-37.0) g/dl RDW (11.5-14.5) % Plt Count (120.0-450.0) 10^3/uL MPV (7.0-11.0) fl pCO2 (35-45) mm/Hg pO2 (80-100) mm/Hg HCO3 (21-28) mmol/L ABG pH (7.35-7.45) ABG Total CO2 (22-28) mmol.L ABG O2 Saturation (95-98) % ABG O2 Content (15-23) ML/dl ABG Base Excess (-2.0-3.0) mmol/L ABG Hemoglobin (11.7-17.4) g/dL ABG Carboxyhemoglobin (0.5-1.5) % POC ABG HHb (Measured) (0-5) % ABG Methemoglobin (0.0-3.0) % ABG O2 Capacity (16-24) mL/dl Hgb O2 Saturation (95.0-98.0) % FiO2 % Sodium (132-148) mmol/L Potassium (3.6-5.0) mmol/L Chloride (98-107) mmol/L Carbon Dioxide (21-33) mmol/L Anion Gap (10-20) BUN (7-21) mg/dL Creatinine (0.8-1.5) mg/dl Est GFR ( Amer) Est GFR (Non-Af Amer) POC Glucose (mg/dL) 120 H 126 H (65-110) mg/dL Random Glucose (70-110) mg/dL Calcium (8.4-10.5) mg/dL Phosphorus (2.5-4.5) mg/dL Magnesium (1.7-2.2) mg/dL Total Bilirubin (0.2-1.3) mg/dL AST (17-59) U/L ALT (7-56) U/L Alkaline Phosphatase (38-126) U/L Total Protein (5.8-8.3) g/dL Albumin (3.0-4.8) g/dL Globulin gm/dL Albumin/Globulin Ratio (1.1-1.8) Urine Color (YELLOW) Urine Appearance (CLEAR) Urine pH (4.7-8.0) Ur Specific [place] (1.005-1.035) Urine Protein (<30 mg/dL) mg/dL Urine Glucose (UA) (NEGATIVE) mg/dL Urine Ketones (NEGATIVE) mg/dL Urine Blood (NEGATIVE) Urine Nitrate (NEGATIVE) Urine Bilirubin (NEGATIVE) Urine Urobilinogen (<1 E.U./dL) E.U./dL Ur Leukocyte Esterase (NEGATIVE) Jacki/uL Urine RBC (0-2) /hpf Urine WBC (0-6) /hpf Ur Epithelial Cells (0-5) /hpf Amorphous Sediment Urine Bacteria (NEG) Fine Granular Casts (0-2) /hpf Coarse Granular Casts (0-2) /hpf Urine Other Influenza Typ A,B (EIA) Negative for flu a/b (NEGATIVE) 09/06/18 Range/Units 10:45 WBC (4.5-11.0) 10^3/uL RBC (3.5-6.1) 10^6/uL Hgb (14.0-18.0) g/dL Hct (42.0-52.0) % MCV (80.0-105.0) fl MCH (25.0-35.0) pg MCHC (31.0-37.0) g/dl RDW (11.5-14.5) % Plt Count (120.0-450.0) 10^3/uL MPV (7.0-11.0) fl pCO2 (35-45) mm/Hg pO2 (80-100) mm/Hg HCO3 (21-28) mmol/L ABG pH (7.35-7.45) ABG Total CO2 (22-28) mmol.L ABG O2 Saturation (95-98) % ABG O2 Content (15-23) ML/dl ABG Base Excess (-2.0-3.0) mmol/L ABG Hemoglobin (11.7-17.4) g/dL ABG Carboxyhemoglobin (0.5-1.5) % POC ABG HHb (Measured) (0-5) % ABG Methemoglobin (0.0-3.0) % ABG O2 Capacity (16-24) mL/dl Hgb O2 Saturation (95.0-98.0) % FiO2 % Sodium (132-148) mmol/L Potassium (3.6-5.0) mmol/L Chloride (98-107) mmol/L Carbon Dioxide (21-33) mmol/L Anion Gap (10-20) BUN (7-21) mg/dL Creatinine (0.8-1.5) mg/dl Est GFR ( Amer) Est GFR (Non-Af Amer) POC Glucose (mg/dL) (65-110) mg/dL Random Glucose (70-110) mg/dL Calcium (8.4-10.5) mg/dL Phosphorus (2.5-4.5) mg/dL Magnesium (1.7-2.2) mg/dL Total Bilirubin (0.2-1.3) mg/dL AST (17-59) U/L ALT (7-56) U/L Alkaline Phosphatase (38-126) U/L Total Protein (5.8-8.3) g/dL Albumin (3.0-4.8) g/dL Globulin gm/dL Albumin/Globulin Ratio (1.1-1.8) Urine Color Yellow (YELLOW) Urine Appearance Clear (CLEAR) Urine pH 6.0 (4.7-8.0) Ur Specific [place] 1.020 (1.005-1.035) Urine Protein 30 H (<30 mg/dL) mg/dL Urine Glucose (UA) Negative (NEGATIVE) mg/dL Urine Ketones Negative (NEGATIVE) mg/dL Urine Blood Moderate H (NEGATIVE) Urine Nitrate Negative (NEGATIVE) Urine Bilirubin Negative (NEGATIVE) Urine Urobilinogen 0.2 (<1 E.U./dL) E.U./dL Ur Leukocyte Esterase Negative (NEGATIVE) Jacki/uL Urine RBC 20 - 25 (0-2) /hpf Urine WBC 1 - 3 (0-6) /hpf Ur Epithelial Cells 0 - 2 (0-5) /hpf Amorphous Sediment Few Urine Bacteria Many (NEG) Fine Granular Casts 0 - 2 (0-2) /hpf Coarse Granular Casts Small (0-2) /hpf Urine Other Uyeast Influenza Typ A,B (EIA) (NEGATIVE) Laboratory Results - last 24 hr 09/06/18 09/06/18 09/06/18 10:45 12:38 23:40 WBC RBC Hgb Hct MCV MCH MCHC RDW Plt Count MPV pCO2 pO2 HCO3 ABG pH ABG Total CO2 ABG O2 Saturation ABG O2 Content ABG Base Excess ABG Hemoglobin ABG Carboxyhemoglobin POC ABG HHb (Measured) ABG Methemoglobin ABG O2 Capacity Hgb O2 Saturation FiO2 Sodium Potassium Chloride Carbon Dioxide Anion Gap BUN Creatinine Est GFR ( Amer) Est GFR (Non-Af Amer) POC Glucose (mg/dL) 126 H Random Glucose Calcium Phosphorus Magnesium Total Bilirubin AST ALT Alkaline Phosphatase Total Protein Albumin Globulin Albumin/Globulin Ratio Urine Color Yellow Urine Appearance Clear Urine pH 6.0 Ur Specific [place] 1.020 Urine Protein 30 H Urine Glucose (UA) Negative Urine Ketones Negative Urine Blood Moderate H Urine Nitrate Negative Urine Bilirubin Negative Urine Urobilinogen 0.2 Ur Leukocyte Esterase Negative Urine RBC 20 - 25 Urine WBC 1 - 3 Ur Epithelial Cells 0 - 2 Amorphous Sediment Few Urine Bacteria Many Fine Granular Casts 0 - 2 Coarse Granular Casts Small Urine Other Uyeast Influenza Typ A,B (EIA) Negative for flu a/b 09/06/18 09/07/18 09/07/18 23:50 05:30 05:30 WBC 12.9 H D RBC 3.36 L Hgb 10.1 L Hct 33.1 L MCV 98.5 MCH 30.1 MCHC 30.5 L RDW 21.1 H Plt Count 101 L MPV 10.6 pCO2 pO2 HCO3 ABG pH ABG Total CO2 ABG O2 Saturation ABG O2 Content ABG Base Excess ABG Hemoglobin ABG Carboxyhemoglobin POC ABG HHb (Measured) ABG Methemoglobin ABG O2 Capacity Hgb O2 Saturation FiO2 Sodium 148 Potassium 4.5 Chloride 117 H Carbon Dioxide 27 Anion Gap 9 L BUN 109 H Creatinine 1.2 Est GFR ( Amer) > 60 Est GFR (Non-Af Amer) 58 POC Glucose (mg/dL) 120 H Random Glucose 119 H Calcium 7.9 L Phosphorus 6.3 H Magnesium 2.9 H Total Bilirubin 2.5 H AST 46 ALT 66 H Alkaline Phosphatase 71 Total Protein 4.4 L Albumin 2.1 L Globulin 2.3 Albumin/Globulin Ratio 0.9 L Urine Color Urine Appearance Urine pH Ur Specific [place] Urine Protein Urine Glucose (UA) Urine Ketones Urine Blood Urine Nitrate Urine Bilirubin Urine Urobilinogen Ur Leukocyte Esterase Urine RBC Urine WBC Ur Epithelial Cells Amorphous Sediment Urine Bacteria Fine Granular Casts Coarse Granular Casts Urine Other Influenza Typ A,B (EIA) 09/07/18 05:30 WBC RBC Hgb Hct MCV MCH MCHC RDW Plt Count MPV pCO2 44 pO2 167.0 H HCO3 24.3 ABG pH 7.35 ABG Total CO2 25.7 ABG O2 Saturation 100.0 H ABG O2 Content 21.6 ABG Base Excess -1.6 ABG Hemoglobin 15.7 ABG Carboxyhemoglobin 2.2 H POC ABG HHb (Measured) 0 ABG Methemoglobin 1.1 ABG O2 Capacity 21.6 Hgb O2 Saturation 96.6 FiO2 40.0 Sodium Potassium Chloride Carbon Dioxide Anion Gap BUN Creatinine Est GFR ( Amer) Est GFR (Non-Af Amer) POC Glucose (mg/dL) Random Glucose Calcium Phosphorus Magnesium Total Bilirubin AST ALT Alkaline Phosphatase Total Protein Albumin Globulin Albumin/Globulin Ratio Urine Color Urine Appearance Urine pH Ur Specific [place] Urine Protein Urine Glucose (UA) Urine Ketones Urine Blood Urine Nitrate Urine Bilirubin Urine Urobilinogen Ur Leukocyte Esterase Urine RBC Urine WBC Ur Epithelial Cells Amorphous Sediment Urine Bacteria Fine Granular Casts Coarse Granular Casts Urine Other Influenza Typ A,B (EIA) Fingerstick Blood Sugar Results: 120 Review of Systems - Review of Systems Systems not reviewed;Unavailable: Intubated Critical Care Progress Note - Ventilator Checklist Head of Bed 30 Degrees: Yes Daily Sedation Vacation: Yes Daily Assessment of Readiness to Wean: Yes Daily Spontaneous Breathing Trial: Yes PUD Prophalyxis: Yes DVT Prophylaxis: Yes Oral Care with Chlorhexidine Gluconate {CHG}: Yes - Vent Settings MODE:: PRVC TIDAL VOLUME:: 400 RESP RATE:: 14 FIO2:: 40 PEEP:: 8 - Extremities/Vascular Does the Patient have a Central Venous Catheter?: No Does the Patient need a Central Venous Catheter?: No Does the Patient have a Mcintosh Catheter?: Yes Does the Patient need a Mcintosh Catheter?: Yes Catheter Insertion Criteria: Need for accurate measurement of output in critically ill patient - Restraints Justification for Restraints: High risk for self extubation - Prophylaxis GI Prophylaxis GI: Pepsid - Prophylaxis DVT Prophylaxis DVT: SCDs - Nutrition Nutrition: Nutrition Category Date Time Status NPO Diet [DIET] Diets 09/02/18 Lunch Ordered Assessment/Plan - Assessment and Plan (Free Text) Assessment: Patient is a 82 y/o male s/p ex-lap and ileal perforation with VRE sepsis a dmitted to ICU for elective bronchoscopy after failing chest PT while on the floor. Patient is currently sedated and intubated. Due to patient's history of recurrent intubations, patient is a candidate for tracheostomy tube. Consent for procedure was received from family, patient is pending placement of tracheostomy tube. Plan: Neuro: - currently on sedation; pending tracheostomy today - maintain normothermia Pulm: - Tracheostomy today; verbal consent was obtained from son Josiah) on 09/06 - Vent settings: PRVC 400/14/8/40% - CXR (09/07): small left sided pleural effusion with hilar fullness. No changes from previous CXR. - s/p elective brochoscopy (09/02) - sputum cx results s/p bronch are normal - c/w Prednisone 10mg PO daily, xopenex, pulmicort - Pulmonology is following, recs appreciated - Maintain SaO2 > 90% - Hx recurrent L-lung atelectasis and mucus plugging s/p bronchoscopy x3 - Hx of COPD and smoking Cardio: - Afib on cardizem gtt at 15 mg/hr - continue asa, clonidine, verapamil - Cario is following, recs appreciated - Maintain MAP > 65 - Hx of endovascular repair of AAA - Hx of HTN GI: - ostomy bag with soft stool. 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 with viscus rupture and ex-lap and peritonitis Renal: - I/O: 3.4 liters/1.5 liters with a net +1.9 liters - Renal failure - resolved Heme: - H/H stable - Chronic Thrombocytopenia - No signs of active bleeding at this time - Continue to monitor ID: - Remove PICC line - Removed TLC at the R-IJ - Febrile overnight; Tmax 101 - f/u septic work up - c/w meropenem (Day #6); started on daptomycin and Micafungin (Day #2) as per ID recs - c/w IV acetaminophen for fevers - VRE+ - Procal negative Endo: - Maintain euglycemia - ISS - low Prophylaxis: - DVT ppx: SCD - GI ppx: pepcid Palliative care is on board. Dispo: Patient is pending tracheostomy tube placement this afternoon. Case was discussed and reviewed with Attending Physician, Dr. Andujar. <Ari Andujar - Last Filed: 09/07/18 12:20> CCU Objective - Vital Signs / Intake & Output Vital Signs (Last 4 hours): Vital Signs Pulse BP 09/07/18 09:36 99 H 96/56 L Intake and Output (Last 8hrs): Intake & Output 09/06/18 09/07/18 09/07/18 22:59 06:59 14:59 Intake Total 1700 1572 70 Output Total 775 720 Balance 925 852 70 Weight 142 lb Intake: IV 1700 1572 70 Cardizem 1500 180 Left Upper arm 1200 Propofol 42 Oral 0 Output: Drainage 75 320 Colostomy 0 200 Right Abdomen 75 120 Urine 700 400 Condom 700 400 Other: # Bowel Movements 0 - Medications Active Medications: Active Medications Generic Name Dose Route Start Last Admin Trade Name Freq PRN Reason Stop Dose Admin Acetylcysteine 4 ml 09/02/18 08:00 09/04/18 20:05 Acetylcysteine 20% IH Not Given [id number] Aspirin 81 mg 09/05/18 11:30 09/07/18 09:35 Aspirin Chewable PO 81 mg DAILY KD Administration Budesonide 0.5 mg 08/13/18 08:00 09/07/18 08:14 Pulmicort Respules IH 0.5 mg [id number] KD Administration Clonidine HCl 1 patch 08/13/18 10:00 09/03/18 15:53 Catapres Tts1 0.1 Mg/24 Hr TD 1 patch Q7D@1000 KD Administration Dextrose 0 ml 09/05/18 15:56 Dextrose 50% Inj IV STAT PRN Hypoglycemia Protocol Protocol Famotidine 20 mg 08/21/18 10:00 09/07/18 09:35 Pepcid PO 20 mg DAILY KD Administration NOREPINEPHRINE BIT/0.9 % NACL 4 mg in 250 mls @ 15 mls/hr 09/02/18 09:00 09/02/18 18:00 Levophed 4 Mg/ 250 Ml Ns Premixed IV 0 mcg/min .[id number] PRN 0 mls/hr TITRATE PER MD ORDER Titration Protocol 4 MCG/MIN Propofol 1,000 mg in 100 mls @ 1.757 mls/hr 09/02/18 09:00 09/07/18 05:45 Diprivan IV 10 mcg/kg/min .Q24H PRN 3.514 mls/hr TITRATE PER MD ORDER Administration Protocol 5 MCG/KG/MIN Meropenem 1 gm in 50 mls @ 100 mls/hr 09/02/18 09:08 09/07/18 05:43 Merrem Iv 1 Gm Premix IVPB 09/11/18 09:09 100 mls/hr Q8 KD Administration Protocol diltiaZEM IVPB 100mg in NS 100 mls @ 10 mls/hr 09/02/18 09:16 09/07/18 11:49 Cardizem 100mg In Ns IV 10 mg/hr .Q10H PRN 10 mls/hr TITRATE PER MD ORDER Titration Protocol 10 MG/HR Dextrose 1,000 mls @ 0 mls/hr 09/05/18 15:56 Dextrose 5% In Water 1000 Ml IV .Q0M PRN Hypoglycemia Protocol Protocol Per Protocol Sodium Chloride 1,000 mls @ 100 mls/hr 09/05/18 23:15 09/07/18 05:45 Sodium Chloride 0.9% IV 100 mls/hr .Q10H KD Administration Micafungin Sodium 100 mg/ 100 mls @ 100 mls/hr 09/06/18 12:45 09/07/18 09:37 Sodium Chloride IV 09/13/18 12:46 100 mls/hr DAILY KD Administration Protocol Daptomycin 610 mg/ Sodium 100 mls @ 200 mls/hr 09/06/18 13:15 09/06/18 16:16 Chloride IV 09/13/18 13:16 200 mls/hr Q24H KD Administration Acetaminophen 1,000 mg in 100 mls @ 400 mls/hr 09/06/18 21:45 09/07/18 11:53 Ofirmev IVPB 09/08/18 21:46 400 mls/hr Q6H PRN Administration Temperature Insulin Human Regular 0 units 09/03/18 12:00 09/07/18 11:29 Humulin R Low SC Not Given Q6 KD Protocol Levalbuterol HCl 0.63 mg 08/18/18 08:00 09/07/18 08:14 Xopenex IH 0.63 mg [id number] KD Administration Metoprolol Tartrate 50 mg 08/29/18 17:00 09/07/18 09:36 Lopressor PO Not Given BRKDIN KD Prednisone 10 mg 08/27/18 10:00 09/07/18 09:39 Prednisone Tab PO 10 mg DAILY KD Administration Verapamil HCl 2.5 mg 08/31/18 09:03 Verapamil Inj IVP Q6H PRN for heart rate >130 Verapamil HCl 40 mg 09/01/18 10:00 09/01/18 17:56 Calan Tab PO 40 mg TID KD Administration - Patient Studies Lab Studies: Microbiology Studies 09/02/18 12:05 Blood Culture - Final Blood NO GROWTH AFTER 5 DAYS Gram Stain - Final TEST NOT PERFORMED 09/02/18 11:55 Blood Culture - Preliminary Blood NO GROWTH AFTER 4 DAYS Gram Stain - Final TEST NOT PERFORMED 09/06/18 12:00 Blood Culture - Preliminary Blood NO GROWTH AFTER 24 HOURS 09/06/18 11:45 Blood Culture - Preliminary Blood NO GROWTH AFTER 24 HOURS 09/04/18 17:44 VRE Culture - Final Rectal Fluid Lab Studies 09/07/18 09/07/18 09/07/18 Range/Units 05:30 05:30 05:30 WBC 12.9 H D (4.5-11.0) 10^3/uL RBC 3.36 L (3.5-6.1) 10^6/uL Hgb 10.1 L (14.0-18.0) g/dL Hct 33.1 L (42.0-52.0) % MCV 98.5 (80.0-105.0) fl MCH 30.1 (25.0-35.0) pg MCHC 30.5 L (31.0-37.0) g/dl RDW 21.1 H (11.5-14.5) % Plt Count 101 L (120.0-450.0) 10^3/uL MPV 10.6 (7.0-11.0) fl pCO2 44 (35-45) mm/Hg pO2 167.0 H (80-100) mm/Hg HCO3 24.3 (21-28) mmol/L ABG pH 7.35 (7.35-7.45) ABG Total CO2 25.7 (22-28) mmol.L ABG O2 Saturation 100.0 H (95-98) % ABG O2 Content 21.6 (15-23) ML/dl ABG Base Excess -1.6 (-2.0-3.0) mmol/L ABG Hemoglobin 15.7 (11.7-17.4) g/dL ABG Carboxyhemoglobin 2.2 H (0.5-1.5) % POC ABG HHb (Measured) 0 (0-5) % ABG Methemoglobin 1.1 (0.0-3.0) % ABG O2 Capacity 21.6 (16-24) mL/dl Hgb O2 Saturation 96.6 (95.0-98.0) % FiO2 40.0 % Sodium 148 (132-148) mmol/L Potassium 4.5 (3.6-5.0) mmol/L Chloride 117 H (98-107) mmol/L Carbon Dioxide 27 (21-33) mmol/L Anion Gap 9 L (10-20) BUN 109 H (7-21) mg/dL Creatinine 1.2 (0.8-1.5) mg/dl Est GFR ( Amer) > 60 Est GFR (Non-Af Amer) 58 POC Glucose (mg/dL) (65-110) mg/dL Random Glucose 119 H (70-110) mg/dL Calcium 7.9 L (8.4-10.5) mg/dL Phosphorus 6.3 H (2.5-4.5) mg/dL Magnesium 2.9 H (1.7-2.2) mg/dL Total Bilirubin 2.5 H (0.2-1.3) mg/dL AST 46 (17-59) U/L ALT 66 H (7-56) U/L Alkaline Phosphatase 71 (38-126) U/L Total Protein 4.4 L (5.8-8.3) g/dL Albumin 2.1 L (3.0-4.8) g/dL Globulin 2.3 gm/dL Albumin/Globulin Ratio 0.9 L (1.1-1.8) Influenza Typ A,B (EIA) (NEGATIVE) 09/06/18 09/06/18 09/06/18 Range/Units 23:50 23:40 12:38 WBC (4.5-11.0) 10^3/uL RBC (3.5-6.1) 10^6/uL Hgb (14.0-18.0) g/dL Hct (42.0-52.0) % MCV (80.0-105.0) fl MCH (25.0-35.0) pg MCHC (31.0-37.0) g/dl RDW (11.5-14.5) % Plt Count (120.0-450.0) 10^3/uL MPV (7.0-11.0) fl pCO2 (35-45) mm/Hg pO2 (80-100) mm/Hg HCO3 (21-28) mmol/L ABG pH (7.35-7.45) ABG Total CO2 (22-28) mmol.L ABG O2 Saturation (95-98) % ABG O2 Content (15-23) ML/dl ABG Base Excess (-2.0-3.0) mmol/L ABG Hemoglobin (11.7-17.4) g/dL ABG Carboxyhemoglobin (0.5-1.5) % POC ABG HHb (Measured) (0-5) % ABG Methemoglobin (0.0-3.0) % ABG O2 Capacity (16-24) mL/dl Hgb O2 Saturation (95.0-98.0) % FiO2 % Sodium (132-148) mmol/L Potassium (3.6-5.0) mmol/L Chloride (98-107) mmol/L Carbon Dioxide (21-33) mmol/L Anion Gap (10-20) BUN (7-21) mg/dL Creatinine (0.8-1.5) mg/dl Est GFR ( Amer) Est GFR (Non-Af Amer) POC Glucose (mg/dL) 120 H 126 H (65-110) mg/dL Random Glucose (70-110) mg/dL Calcium (8.4-10.5) mg/dL Phosphorus (2.5-4.5) mg/dL Magnesium (1.7-2.2) mg/dL Total Bilirubin (0.2-1.3) mg/dL AST (17-59) U/L ALT (7-56) U/L Alkaline Phosphatase (38-126) U/L Total Protein (5.8-8.3) g/dL Albumin (3.0-4.8) g/dL Globulin gm/dL Albumin/Globulin Ratio (1.1-1.8) Influenza Typ A,B (EIA) Negative for flu a/b (NEGATIVE) Laboratory Results - last 24 hr 09/06/18 09/06/18 09/06/18 12:38 23:40 23:50 WBC RBC Hgb Hct MCV MCH MCHC RDW Plt Count MPV pCO2 pO2 HCO3 ABG pH ABG Total CO2 ABG O2 Saturation ABG O2 Content ABG Base Excess ABG Hemoglobin ABG Carboxyhemoglobin POC ABG HHb (Measured) ABG Methemoglobin ABG O2 Capacity Hgb O2 Saturation FiO2 Sodium Potassium Chloride Carbon Dioxide Anion Gap BUN Creatinine Est GFR ( Amer) Est GFR (Non-Af Amer) POC Glucose (mg/dL) 126 H 120 H Random Glucose Calcium Phosphorus Magnesium Total Bilirubin AST ALT Alkaline Phosphatase Total Protein Albumin Globulin Albumin/Globulin Ratio Influenza Typ A,B (EIA) Negative for flu a/b 09/07/18 09/07/18 09/07/18 05:30 05:30 05:30 WBC 12.9 H D RBC 3.36 L Hgb 10.1 L Hct 33.1 L MCV 98.5 MCH 30.1 MCHC 30.5 L RDW 21.1 H Plt Count 101 L MPV 10.6 pCO2 44 pO2 167.0 H HCO3 24.3 ABG pH 7.35 ABG Total CO2 25.7 ABG O2 Saturation 100.0 H ABG O2 Content 21.6 ABG Base Excess -1.6 ABG Hemoglobin 15.7 ABG Carboxyhemoglobin 2.2 H POC ABG HHb (Measured) 0 ABG Methemoglobin 1.1 ABG O2 Capacity 21.6 Hgb O2 Saturation 96.6 FiO2 40.0 Sodium 148 Potassium 4.5 Chloride 117 H Carbon Dioxide 27 Anion Gap 9 L BUN 109 H Creatinine 1.2 Est GFR ( Amer) > 60 Est GFR (Non-Af Amer) 58 POC Glucose (mg/dL) Random Glucose 119 H Calcium 7.9 L Phosphorus 6.3 H Magnesium 2.9 H Total Bilirubin 2.5 H AST 46 ALT 66 H Alkaline Phosphatase 71 Total Protein 4.4 L Albumin 2.1 L Globulin 2.3 Albumin/Globulin Ratio 0.9 L Influenza Typ A,B (EIA) Critical Care Progress Note - Nutrition Nutrition: Nutrition Category Date Time Status NPO Diet [DIET] Diets 09/02/18 Lunch Ordered Attending/Attestation - Attestation I have personally seen and examined this patient.: Yes I have fully participated in the care of the patient.: Yes I have reviewed all pertinent clinical information: Yes Notes (Text): 09/07/18 12:15 82 yo with difficulty protecting airways and resulting left lung atelectasis due to recurrent mucous plagging. Now intubated s/p bronchoscopy with re-exapnsion fo L.lung. going for trach today by dr ge for continious aggressive pulmonary toilet. spiked fever last night again. on meropenem, dapto and micafungin. CVC was removed yesterday, today another CVC will be placed and old picc line will be removed. dvt/gi prophylaxis, once trach done, sedation vacation, daily weaning trial. protective lung vnt strategy, HOB>35, oral hygiene. dvt/gi prophylaxis ccm time 40 min
--- NOTE | 2018-09-07 16:17 | PN ---
DATE: 09/07/2018 REASON FOR CONSULTATION AND FOLLOWUP: Atrial fibrillation, status post respiratory failure, status post abdominal surgery, for possible tracheostomy today. The patient remains on vent, on IV Cardizem. PHYSICAL EXAMINATION VITAL SIGNS: Temperature afebrile, heart rate 102, blood pressure 96/56. HEENT: PERRLA. Extraocular muscles intact. NECK: Supple. No carotid bruit or thyromegaly. CHEST: Clear to auscultation. HEART: S1 and S2 regular. ABDOMEN: Soft. EXTREMITIES: Clubbing and cyanosis negative. LABORATORY DATA: Blood workup as follows: WBC 12.9, hemoglobin 10, hematocrit 33.1, platelet count 101. Chemistries show sodium 140, potassium 4.5, chloride 101, carbon dioxide 27, anion gap of 9, BUN 109, creatinine 1.2. 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 Hospital course further complicated by recurrent collapse of the lung, now the patient requiring tracheostomy, is scheduled for tracheostomy today. RECOMMENDATIONS: Continue IV Cardizem until the patient gets tracheostomy and then we can feed through the NG tube and change to verapamil. Continue p.r.n. verapamil. Overall, the patient's condition is critical. Long-term prognosis is extremely guarded. Today's blood workup shows, WBC 12.9, hemoglobin 10, hematocrit 33.1, platelet count 101. Chemistries show sodium 140, potassium 4.5, chloride 101, carbon dioxide 27, anion gap of 9, BUN 109, creatinine 1.2. We will follow with you. Thank you Dr. Du providing the opportunity in taking care of the patient. Gladis Greenfield MD
[2018-09-07] MEDS ORDERED: Rocuronium 10 mg/ml (5 ml) ONE (16:56)
--- NOTE | 2018-09-07 17:22 | PN ---
DATE: 09/07/2018 CRITICAL CARE PROGRESS NOTE SUBJECTIVE: This 82-year-old male remains in bed 1 of the ICU where he is intubated on 09/07/2018. As per primary care physician and surgeon, Dr. Rocael Du, the patient is in need of a trach and a triple-lumen catheter change today. Of note, his BUN remains elevated in the setting of negative fluid output secondary to diarrhea and diuresis and at present, there have been no reports of any change in mental status because the patient is being sedated with IV Diprivan. PHYSICAL EXAMINATION: VITAL SIGNS: He does have a temperature of 100.8, is in AFib rhythm on the rn cardiac rehab, his blood pressure is 137/66, pulse is 120, and O2 saturation of 100% on 40% FiO2. HEENT: Head; normocephalic, atraumatic. NECK: Supple. HEART: Irregular S1, S2. LUNGS: With rhonchi. ABDOMEN: Soft. EXTREMITIES: No edema. SKIN: Without rash. NEUROLOGICAL: Sedated. PSYCHOLOGICAL: Cannot be assessed. VASCULAR: Legs warm to touch. LABORATORY DATA: White count 12,900, hemoglobin 10.1, hematocrit 33.1, platelets 101,000. PT/INR 1.31, PTT 31.7. Sodium 148, K 4.5, chloride 117, bicarb 27, BUN 109, creatinine 1.2, random blood sugar 119. Phosphorus 6.3, magnesium 2.9. Bilirubin 2.5. IMPRESSION AND PLAN: An 82-year-old male with prerenal azotemia in the setting of previous acute renal failure, now resolved. Cortisone used for obstructive pulmonary disease and comorbidities of chronic obstructive pulmonary disease, respiratory failure, chronic atrial fibrillation, chronic hypertension, insulin-dependent diabetes mellitus, peptic ulcer disease with gastroesophageal reflux disease, and wound cultures growing vancomycin-resistant Enterococcus. The plan will be to continue Ecotrin, Cardizem, clonidine, daptomycin, Diprivan, insulin, Lopressor, meropenem, micafungin, Pepcid, prednisone, Pulmicort, 0.9 saline, Xopenex inhalational therapy, nasogastric tube feeds, and water flushes. The patient remains a full code. He is scheduled for comprehensive metabolic panel and CBC in a.m. He will continue on ventilatory support. He is currently nothing by mouth in preparation for the operating room and remains on aspiration precautions, isolation precautions, and is wearing antiembolism sequential compression device stockings. Despite all of the above, his overall prognosis remains poor. All of the above was reviewed in detail with nursing and Dr. Du. Sara Ramirez MD
[2018-09-07] MEDS ORDERED: Bupivacaine 0.5% 50 ML IJ ONE (19:18)
--- NOTE | 2018-09-07 19:26 | PN ---
DATE: 09/07/2018 SUBJECTIVE: The patient is seen earlier this morning in room 128, bed #1. The patient has no fevers and no chills. Remains intubated on a ventilator. PHYSICAL EXAMINATION: VITAL SIGNS: He does have a temperature of 100.8, respiratory rate, he is on the vent, heart rate of 120, blood pressure 130/60. HEENT: Unremarkable. NECK: Supple. LUNGS: Have decreased breath sounds. HEART: Normal S1, S2. ABDOMEN: Soft, nontender. LABORATORY DATA: Reveals the white count has increased to 12,900, hemoglobin of 10, platelets of 101. Chemistries are noted and the creatinine is 1.2. Urine noted and vancomycin trough noted. Serologies reviewed. Microbiology reveals blood cultures from yesterday of no growth x2 bottles. Blood cultures of VRE, sputum cultures normal angelita. Review of orders reveals the patient where his daptomycin was initiated yesterday and meropenem and micafungin. The patient is also on prednisone, a dose of vancomycin was given. The patient's chest x-ray, increased opacity to left base. ASSESSMENT AND PLAN: An 82-year-old with sepsis, status post ventilatory-dependent respiratory failure due to perforated ileum, exploratory laparotomy and resection, terminal ileum, primary anastomosis. Had grown vancomycin-resistant enterococci and Reshma tropicalis and now with severe sepsis, respiratory failure, intubated on a ventilator with Healthcare-associated pneumonia, on intermittent vancomycin and meropenem. The patient also is on daptomycin and micafungin. Repeat blood cultures are negative thus far. Overall prognosis quite poor. We will check on the mclaughlin culture and the patient's last procalcitonin was 0.4 on 09/02/2018. We will repeat a procalcitonin today pending sputum culture and mclaughlin culture results. Overall prognosis is quite poor. Jason Garvin MD
--- NOTE | 2018-09-07 20:16 | PCM.SURG1 ---
Surgeon's Initial Post Op Note - Surgeon's Notes Surgeon: Dr. Du Synthetic Filament Spinner: Kyrie PGY2 Type of Anesthesia: General Endo, IV Sedation Anesthesia Administered By: Dr. Howell Pre-Operative Diagnosis: Ventilatory dependent respiratory failure Operative Findings: see operative report Post-Operative Diagnosis: Ventilatory dependent respiratory failure Operation Performed: Tracheostomy Placement. #8 cuffed tracheostomy tube. Right IJ Triple Lumen Catheter placement Specimen/Specimens Removed: Left upper extremity PICC catheter tip Estimated Blood Loss: EBL {In ML}: 5 Blood Products Given: N/A Drains Used: No Drains Post-Op Condition: Good Date of Surgery/Procedure: 09/07/18 Time of Surgery/Procedure: 20:16
[2018-09-08] MEDS: Insulin Reg-LOW-Coverage SC SCH ×4 (00:30→18:02)
--- NOTE | 2018-09-08 00:31 | PN ---
DATE: 09/07/2018 SUBJECTIVE: The patient is 82 years old. Seen and examined. Remained on vent, sedated. Scheduled for tracheostomy. PHYSICAL EXAMINATION: VITAL SIGNS: He has a temperature of 100.3, pulse 106, respirations 18, and blood pressure 95/54. LUNGS: Bilateral fair airflow. bases. HEART: S1 and S2 audible. ABDOMEN: Soft. Colostomy functional. RUSSELL drain has straw colored non-hemorrhagic fluid. EXTREMITIES: Bilateral legs, +2 edema. LABORATORY EXAMINATION: WBC is 12.9, hemoglobin 10, hematocrit 33.1, platelets 101. Chemistries: Sodium 148, potassium 4.5, chloride 117, CO2 of 27, BUN 109, creatinine 1.2, blood sugar 119, and magnesium 2.9. ASSESSMENT AND PLAN: 1. Respiratory failure, going for tracheostomy today. 2. Probably line sepsis. 3. Chronic atrial fibrillation. 4. Status post laparotomy. 5. Status post right hemicolectomy. 6. Seizure disorder. PLAN: The patient is going for tracheostomy today. He got a dose of . He remains on verapamil. He is on daptomycin, meropenem, and small dose of prednisone. Overall prognosis is poor. Discussed with Dr. Du who will watch him. We will monitor his electrolyte and CBC in a.m. Tri Fleming MD
[2018-09-08] MEDS: Levalbuterol 0.63 MG/3 ML Inhal Soln UD IH SCH ×4 (01:00→20:23)
[2018-09-08] MEDS: diltiaZEM IVPB 100mg in NS 100 ML IV PRN ×2 (02:00→08:18)
[2018-09-08] MEDS: Meropenem IV 1 gm in NS 1 GM/50 ML BAG IVPB SCH ×3 (05:45→22:00)
[2018-09-08 06:00] LABS: ARTERIAL BLOOD GAS HCO3 21.5 mmol/L (21-28); ARTERIAL BLOOD GAS HEMOGLOBIN 10.8 g/dL (11.7-17.4); ARTERIAL BLOOD GAS O2 SAT 99.8 % (95-98); ARTERIAL BLOOD GAS PCO2 38 mm/Hg (35-45); ARTERIAL BLOOD GAS PH 7.36 (7.35-7.45); ARTERIAL BLOOD GAS TCO2 22.7 mmol.L (22-28)
[2018-09-08] MEDS ORDERED: Vancomycin 2 GM in Sodium Chloride 0.9% 500 ML IVPB ONE (06:12)
[2018-09-08 07:13] LABS: MEAN CELL VOLUME 98.7 fl (80.0-105.0); MEAN CORPUSCULAR HEMOGLOBIN 29.4 pg (25.0-35.0); MEAN CORPUSCULAR HGB CONC 29.8 g/dl (31.0-37.0); MEAN PLATELET VOLUME 10.8 fl (7.0-11.0); RBC 3.74 10^6/uL (3.5-6.1); RED CELL DISTRIBUTION WIDTH 21.1 % (11.5-14.5); WHITE BLOOD COUNT 15.7 10^3/uL (4.5-11.0)
[2018-09-08 07:14] LABS: ALB/GLOB RATIO 0.9 (1.1-1.8); ALBUMIN 2.1 g/dL (3.0-4.8)
[2018-09-08] MEDS: Budesonide 0.5 mg/2 ml Inhal Susp UD IH SCH ×2 (07:48→20:23)
--- NOTE | 2018-09-08 08:07 | PN ---
DATE: 09/08/2018(700AM-750AM) PULMONARY NOTE SUBJECTIVE: The patient remains on the ventilator. He is currently sedated. He is status post tracheostomy. PHYSICAL EXAMINATION: VITAL SIGNS: Temperature is 98.7, pulse 92, respirations 17/14, blood pressure 96/47. HEENT: Normocephalic. Positive tracheostomy. No JVD. CARDIOVASCULAR: Systolic ejection murmur at the lower left sternal border. Questionable S3 gallop. LUNGS: Decreased breath sounds at the bases (much improved overall). Much less rhonchi. No wheezing. EXTREMITIES: Mild edema. No cyanosis, no clubbing. GI: Abdomen is soft and nondistended. Abdomen is postoperative. SKIN: No acute rash. NEUROLOGIC: Exam limited at the present time. PERTINENT LABORATORY DATA: Chest x-ray was done this morning and reviewed. It is not significantly changed from the previous film. Arterial blood gas was done on PRVC 14, tidal volume 400, FIO2 40%. Results are: PH 7.36, pCO2 of 38, pO2 of 161. IMPRESSION 1. Recurrent left lung atelectasis. 2. Congestive heart failure. 3. Atrial fibrillation. 4. Intra-abdominal perforation. 5. Status post right hemicolectomy. 6. Advanced chronic obstructive pulmonary disease. 7. Anemia, thrombocytopenia. PLAN: The patient remains in the ICU. He remains sedated and on the ventilator. He is status post tracheostomy. I did discuss the case with the night nurse at length. The night nurse stated that the patient had a good night. The fevers are now defervescing. I did review the chest x-ray as above. It is not significantly changed from yesterday. I have also reviewed the arterial blood gas. The arterial blood gases continue to improve--- with a decrease in the alveolar-arterial gradient. I will discuss possible weaning trials with the ICU team this morning. I would continue with the antibiotic coverage as per Infectious Disease. Input by Dr. Garvin is noted. The temperatures are now resolving. Inputs by Surgery and Renal are also noted. Clinical status of the patient is certainly improved overall. However, again, the future status/prognosis for this patient does remain very guarded at best. I will discuss the above with the entire ICU team in the next few moments. I will discuss the above with the attending physician. Rosalio Blevins MD [facility] # [id number] MTDJevon
--- NOTE | 2018-09-08 09:18 | RAD ---
Date of service: 09/07/2018 HISTORY: s/p TLC placement and Tracheostomy placement COMPARISON: No prior. FINDINGS: LUNGS: There is a new tracheostomy and a new right internal jugular line. The jugular line terminates in the upper right atrium. There is no pneumothorax. The nasogastric tube is seen just beyond the GE junction PLEURA: No significant pleural effusion identified, no pneumothorax apparent. CARDIOVASCULAR: No aortic atherosclerotic calcification present. Normal cardiac size. No pulmonary vascular congestion. OSSEOUS STRUCTURES: No significant abnormalities. VISUALIZED UPPER ABDOMEN: Normal. OTHER FINDINGS: None. IMPRESSION: There is a new tracheostomy and a new right internal jugular line. The jugular line terminates in the upper right atrium. There is no pneumothorax. The nasogastric tube is seen just beyond the GE junction
--- NOTE | 2018-09-08 09:32 | RAD ---
Date of service: 09/08/2018 HISTORY: f/u COMPARISON: 09/07/2018 FINDINGS: LUNGS: Central lines and tubes are unchanged. The lungs remain clear PLEURA: Small left effusion CARDIOVASCULAR: Aortic calcification Normal cardiac size. No pulmonary vascular congestion. OSSEOUS STRUCTURES: No significant abnormalities. VISUALIZED UPPER ABDOMEN: Normal. OTHER FINDINGS: None. IMPRESSION: Central lines and tubes are unchanged. The lungs remain clear
--- NOTE | 2018-09-08 10:20 | CP.CCUPN ---
<Godfrey Lehman - Last Filed: 09/08/18 18:31> CCU Subjective - Physician Review Subjective (Free Text): Godfrey Lehman, PGY1 ICU Progress Note for Dr. Andujar Patient was seen and examined at bedside this morning. Patient is s/p tracheostomy tube placement yesterday at 8pm. At that time, R-IJ was placed and left upper extremity PICC line was removed. Currently, patient is on cardizem gtt at 5 mg/hr and propofol at 20 mcg/kg/min. Patient is resumed on NG tube feeds. Patient is not alert or awake; he is not following commands. ROS unable to be obtained due to patient's critical condition. Afebrile overnight, vital signs stable. Patient is still sedated; vent settings: PRVC 400/14/8/40%. Patient noted to have diarrhea in ostomy bag. CCU Objective - Vital Signs / Intake & Output Intake and Output (Last 8hrs): Intake & Output 09/07/18 09/08/18 09/08/18 22:59 06:59 14:59 Intake Total 1550 1564 100 Output Total 560 190 Balance 990 1374 100 Weight 64.41 kg Intake: IV 1550 1564 100 0.9 ns 1200 Cardizem 180 Left Upper arm 1500 Propofol 84 Output: Drainage 60 65 Colostomy 60 Right Abdomen 65 Urine 500 125 Condom 500 125 - Physical Exam Head: Positive for: Atraumatic, Normocephalic Pupils: Positive for: Sluggish Mouth: Positive for: Moist Mucous Membranes Pharnyx: Positive for: Normal Nose (External): Positive for: Other (NG tube in place) Neck: Positive for: Other (Tracheostomy tube in place). Negative for: JVD, Lymphadenopathy, Bruit Respiratory/Chest: Positive for: Clear to Auscultation. Negative for: Respiratory Distress, Accessory Muscle Use, Wheezes, Rales, Rhonchi Cardiovascular: Positive for: Irregular Rhythm (Afib), Peripheal Pulses Present Abdomen: Positive for: Normal Bowel Sounds, Other ( Colostomy bag in place). Negative for: Tenderness, Distention, Peritoneal Signs, Mass/Organomegaly Genitourinary Male: Positive for: Other (Mcintosh in place) Upper Extremity: Positive for: NORMAL PULSES. Negative for: Edema Lower Extremity: Positive for: NORMAL PULSES, Other (No pitting edema noted on bilateral low ext. ). Negative for: Edema, CALF TENDERNESS Skin: Positive for: Warm, Dry, Normal Color Psychiatric: Negative for: Alert, Oriented x 3 - Medications Active Medications: Active Medications Generic Name Dose Route Start Last Admin Trade Name Freq PRN Reason Stop Dose Admin Acetylcysteine 4 ml 09/02/18 08:00 09/04/18 20:05 Acetylcysteine 20% IH Not Given [id number] Aspirin 81 mg 09/05/18 11:30 09/07/18 09:35 Aspirin Chewable PO 81 mg DAILY KD Administration Budesonide 0.5 mg 08/13/18 08:00 09/08/18 07:48 Pulmicort Respules IH 0.5 mg [id number] KD Administration Clonidine HCl 1 patch 08/13/18 10:00 09/03/18 15:53 Catapres Tts1 0.1 Mg/24 Hr TD 1 patch Q7D@1000 KD Administration Dextrose 0 ml 09/05/18 15:56 Dextrose 50% Inj IV STAT PRN Hypoglycemia Protocol Protocol Famotidine 20 mg 08/21/18 10:00 09/07/18 09:35 Pepcid PO 20 mg DAILY KD Administration NOREPINEPHRINE BIT/0.9 % NACL 4 mg in 250 mls @ 15 mls/hr 09/02/18 09:00 09/02/18 18:00 Levophed 4 Mg/ 250 Ml Ns Premixed IV 0 mcg/min .[id number] PRN 0 mls/hr TITRATE PER MD ORDER Titration Protocol 4 MCG/MIN Propofol 1,000 mg in 100 mls @ 1.757 mls/hr 09/02/18 09:00 09/07/18 21:12 Diprivan IV 20 mcg/kg/min .Q24H PRN 7.027 mls/hr TITRATE PER MD ORDER Administration Protocol 5 MCG/KG/MIN Meropenem 1 gm in 50 mls @ 100 mls/hr 09/02/18 09:08 09/08/18 05:45 Merrem Iv 1 Gm Premix IVPB 09/11/18 09:09 100 mls/hr Q8 KD Administration Protocol diltiaZEM IVPB 100mg in NS 100 mls @ 10 mls/hr 09/02/18 09:16 09/08/18 08:18 Cardizem 100mg In Ns IV 15 mg/hr .Q10H PRN 15 mls/hr TITRATE PER MD ORDER Administration Protocol 10 MG/HR Dextrose 1,000 mls @ 0 mls/hr 09/05/18 15:56 Dextrose 5% In Water 1000 Ml IV .Q0M PRN Hypoglycemia Protocol Protocol Per Protocol Micafungin Sodium 100 mg/ 100 mls @ 100 mls/hr 09/06/18 12:45 09/07/18 09:37 Sodium Chloride IV 09/13/18 12:46 100 mls/hr DAILY KD Administration Protocol Daptomycin 610 mg/ Sodium 100 mls @ 200 mls/hr 09/06/18 13:15 09/07/18 13:32 Chloride IV 09/13/18 13:16 200 mls/hr Q24H KD Administration Acetaminophen 1,000 mg in 100 mls @ 400 mls/hr 09/06/18 21:45 09/07/18 11:53 Ofirmev IVPB 09/08/18 21:46 400 mls/hr Q6H PRN Administration Temperature Insulin Human Regular 0 units 09/03/18 12:00 09/08/18 06:56 Humulin R Low SC Not Given Q6 KD Protocol Levalbuterol HCl 0.63 mg 08/18/18 08:00 09/08/18 07:48 Xopenex IH 0.63 mg [id number] KD Administration Metoprolol Tartrate 50 mg 08/29/18 17:00 09/07/18 17:30 Lopressor PO Not Given BRKDIN KD Prednisone 10 mg 08/27/18 10:00 09/07/18 09:39 Prednisone Tab PO 10 mg DAILY KD Administration Verapamil HCl 2.5 mg 08/31/18 09:03 Verapamil Inj IVP Q6H PRN for heart rate >130 Verapamil HCl 40 mg 09/08/18 10:00 Calan Tab PO TID KD - Patient Studies Lab Studies: Microbiology Studies 09/07/18 08:16 Gram Stain - Final Sputum Induced Sputum Culture - Preliminary No growth. 09/06/18 10:45 Urine Culture - Final Urine,Clean Catch No Growth (<1,000 CFU/ML) 09/02/18 11:55 Blood Culture - Final Blood NO GROWTH AFTER 5 DAYS 09/02/18 12:05 Blood Culture - Final Blood NO GROWTH AFTER 5 DAYS Gram Stain - Final TEST NOT PERFORMED 09/06/18 12:00 Blood Culture - Preliminary Blood NO GROWTH AFTER 24 HOURS 09/06/18 11:45 Blood Culture - Preliminary Blood NO GROWTH AFTER 24 HOURS Lab Studies 09/08/18 09/08/18 09/08/18 Range/Units 08:30 06:00 06:00 WBC 15.7 H D (4.5-11.0) 10^3/uL RBC 3.74 (3.5-6.1) 10^6/uL Hgb 11.0 L (14.0-18.0) g/dL Hct 36.9 L (42.0-52.0) % MCV 98.7 (80.0-105.0) fl MCH 29.4 (25.0-35.0) pg MCHC 29.8 L (31.0-37.0) g/dl RDW 21.1 H (11.5-14.5) % Plt Count 110 L (120.0-450.0) 10^3/uL MPV 10.8 (7.0-11.0) fl pCO2 (35-45) mm/Hg pO2 (80-100) mm/Hg HCO3 (21-28) mmol/L ABG pH (7.35-7.45) ABG Total CO2 (22-28) mmol.L ABG O2 Saturation (95-98) % ABG O2 Content (15-23) ML/dl ABG Base Excess (-2.0-3.0) mmol/L ABG Hemoglobin (11.7-17.4) g/dL ABG Carboxyhemoglobin (0.5-1.5) % POC ABG HHb (Measured) (0-5) % ABG Methemoglobin (0.0-3.0) % ABG O2 Capacity (16-24) mL/dl Hgb O2 Saturation (95.0-98.0) % FiO2 % Sodium (132-148) mmol/L Potassium (3.6-5.0) mmol/L Chloride (98-107) mmol/L Carbon Dioxide (21-33) mmol/L Anion Gap (10-20) BUN (7-21) mg/dL Creatinine (0.8-1.5) mg/dl Est GFR ( Amer) Est GFR (Non-Af Amer) POC Glucose (mg/dL) 91 (65-110) mg/dL Random Glucose (70-110) mg/dL Calcium (8.4-10.5) mg/dL Total Bilirubin (0.2-1.3) mg/dL AST (17-59) U/L ALT (7-56) U/L Alkaline Phosphatase (38-126) U/L Total Creatine Kinase 23 L (35-230) U/L Total Protein (5.8-8.3) g/dL Albumin (3.0-4.8) g/dL Globulin gm/dL Albumin/Globulin Ratio (1.1-1.8) Procalcitonin (0.19-0.49) NG/ML 09/08/18 09/08/18 09/07/18 Range/Units 06:00 05:35 23:54 WBC (4.5-11.0) 10^3/uL RBC (3.5-6.1) 10^6/uL Hgb (14.0-18.0) g/dL Hct (42.0-52.0) % MCV (80.0-105.0) fl MCH (25.0-35.0) pg MCHC (31.0-37.0) g/dl RDW (11.5-14.5) % Plt Count (120.0-450.0) 10^3/uL MPV (7.0-11.0) fl pCO2 38 (35-45) mm/Hg pO2 161.0 H (80-100) mm/Hg HCO3 21.5 (21-28) mmol/L ABG pH 7.36 (7.35-7.45) ABG Total CO2 22.7 (22-28) mmol.L ABG O2 Saturation 99.8 H (95-98) % ABG O2 Content 15.0 (15-23) ML/dl ABG Base Excess -3.6 L (-2.0-3.0) mmol/L ABG Hemoglobin 10.8 L (11.7-17.4) g/dL ABG Carboxyhemoglobin 2.4 H (0.5-1.5) % POC ABG HHb (Measured) 0.2 (0-5) % ABG Methemoglobin 1.1 (0.0-3.0) % ABG O2 Capacity 15.0 L (16-24) mL/dl Hgb O2 Saturation 96.3 (95.0-98.0) % FiO2 40.0 % Sodium 151 H (132-148) mmol/L Potassium 4.7 (3.6-5.0) mmol/L Chloride 120 H (98-107) mmol/L Carbon Dioxide 24 (21-33) mmol/L Anion Gap 13 (10-20) BUN 119 H (7-21) mg/dL Creatinine 1.7 H (0.8-1.5) mg/dl Est GFR ( Amer) 47 Est GFR (Non-Af Amer) 39 POC Glucose (mg/dL) 95 (65-110) mg/dL Random Glucose 92 (70-110) mg/dL Calcium 8.0 L (8.4-10.5) mg/dL Total Bilirubin 2.8 H (0.2-1.3) mg/dL AST 39 (17-59) U/L ALT 60 H (7-56) U/L Alkaline Phosphatase 65 (38-126) U/L Total Creatine Kinase (35-230) U/L Total Protein 4.4 L (5.8-8.3) g/dL Albumin 2.1 L (3.0-4.8) g/dL Globulin 2.3 gm/dL Albumin/Globulin Ratio 0.9 L (1.1-1.8) Procalcitonin (0.19-0.49) NG/ML 09/07/18 09/07/18 09/07/18 Range/Units 21:34 17:45 15:43 WBC (4.5-11.0) 10^3/uL RBC (3.5-6.1) 10^6/uL Hgb (14.0-18.0) g/dL Hct (42.0-52.0) % MCV (80.0-105.0) fl MCH (25.0-35.0) pg MCHC (31.0-37.0) g/dl RDW (11.5-14.5) % Plt Count (120.0-450.0) 10^3/uL MPV (7.0-11.0) fl pCO2 (35-45) mm/Hg pO2 (80-100) mm/Hg HCO3 (21-28) mmol/L ABG pH (7.35-7.45) ABG Total CO2 (22-28) mmol.L ABG O2 Saturation (95-98) % ABG O2 Content (15-23) ML/dl ABG Base Excess (-2.0-3.0) mmol/L ABG Hemoglobin (11.7-17.4) g/dL ABG Carboxyhemoglobin (0.5-1.5) % POC ABG HHb (Measured) (0-5) % ABG Methemoglobin (0.0-3.0) % ABG O2 Capacity (16-24) mL/dl Hgb O2 Saturation (95.0-98.0) % FiO2 % Sodium (132-148) mmol/L Potassium (3.6-5.0) mmol/L Chloride (98-107) mmol/L Carbon Dioxide (21-33) mmol/L Anion Gap (10-20) BUN (7-21) mg/dL Creatinine (0.8-1.5) mg/dl Est GFR ( Amer) Est GFR (Non-Af Amer) POC Glucose (mg/dL) 113 H 94 (65-110) mg/dL Random Glucose (70-110) mg/dL Calcium (8.4-10.5) mg/dL Total Bilirubin (0.2-1.3) mg/dL AST (17-59) U/L ALT (7-56) U/L Alkaline Phosphatase (38-126) U/L Total Creatine Kinase (35-230) U/L Total Protein (5.8-8.3) g/dL Albumin (3.0-4.8) g/dL Globulin gm/dL Albumin/Globulin Ratio (1.1-1.8) Procalcitonin 0.64 H (0.19-0.49) NG/ML 09/07/ Range/Units 11:21 WBC (4.5-11.0) 10^3/uL RBC (3.5-6.1) 10^6/uL Hgb (14.0-18.0) g/dL Hct (42.0-52.0) % MCV (80.0-105.0) fl MCH (25.0-35.0) pg MCHC (31.0-37.0) g/dl RDW (11.5-14.5) % Plt Count (120.0-450.0) 10^3/uL MPV (7.0-11.0) fl pCO2 (35-45) mm/Hg pO2 (80-100) mm/Hg HCO3 (21-28) mmol/L ABG pH (7.35-7.45) ABG Total CO2 (22-28) mmol.L ABG O2 Saturation (95-98) % ABG O2 Content (15-23) ML/dl ABG Base Excess (-2.0-3.0) mmol/L ABG Hemoglobin (11.7-17.4) g/dL ABG Carboxyhemoglobin (0.5-1.5) % POC ABG HHb (Measured) (0-5) % ABG Methemoglobin (0.0-3.0) % ABG O2 Capacity (16-24) mL/dl Hgb O2 Saturation (95.0-98.0) % FiO2 % Sodium (132-148) mmol/L Potassium (3.6-5.0) mmol/L Chloride (98-107) mmol/L Carbon Dioxide (21-33) mmol/L Anion Gap (10-20) BUN (7-21) mg/dL Creatinine (0.8-1.5) mg/dl Est GFR ( Amer) Est GFR (Non-Af Amer) POC Glucose (mg/dL) 99 (65-110) mg/dL Random Glucose (70-110) mg/dL Calcium (8.4-10.5) mg/dL Total Bilirubin (0.2-1.3) mg/dL AST (17-59) U/L ALT (7-56) U/L Alkaline Phosphatase (38-126) U/L Total Creatine Kinase (35-230) U/L Total Protein (5.8-8.3) g/dL Albumin (3.0-4.8) g/dL Globulin gm/dL Albumin/Globulin Ratio (1.1-1.8) Procalcitonin (0.19-0.49) NG/ML Laboratory Results - last 24 hr 09/07/18 09/07/18 09/07/18 11:21 15:43 17:45 WBC RBC Hgb Hct MCV MCH MCHC RDW Plt Count MPV pCO2 pO2 HCO3 ABG pH ABG Total CO2 ABG O2 Saturation ABG O2 Content ABG Base Excess ABG Hemoglobin ABG Carboxyhemoglobin POC ABG HHb (Measured) ABG Methemoglobin ABG O2 Capacity Hgb O2 Saturation FiO2 Sodium Potassium Chloride Carbon Dioxide Anion Gap BUN Creatinine Est GFR ( Amer) Est GFR (Non-Af Amer) POC Glucose (mg/dL) 99 94 Random Glucose Calcium Total Bilirubin AST ALT Alkaline Phosphatase Total Creatine Kinase Total Protein Albumin Globulin Albumin/Globulin Ratio Procalcitonin 0.64 H 09/07/18 09/07/18 09/08/18 21:34 23:54 05:35 WBC RBC Hgb Hct MCV MCH MCHC RDW Plt Count MPV pCO2 38 pO2 161.0 H HCO3 21.5 ABG pH 7.36 ABG Total CO2 22.7 ABG O2 Saturation 99.8 H ABG O2 Content 15.0 ABG Base Excess -3.6 L ABG Hemoglobin 10.8 L ABG Carboxyhemoglobin 2.4 H POC ABG HHb (Measured) 0.2 ABG Methemoglobin 1.1 ABG O2 Capacity 15.0 L Hgb O2 Saturation 96.3 FiO2 40.0 Sodium Potassium Chloride Carbon Dioxide Anion Gap BUN Creatinine Est GFR ( Amer) Est GFR (Non-Af Amer) POC Glucose (mg/dL) 113 H 95 Random Glucose Calcium Total Bilirubin AST ALT Alkaline Phosphatase Total Creatine Kinase Total Protein Albumin Globulin Albumin/Globulin Ratio Procalcitonin 09/08/18 09/08/18 09/08/18 06:00 06:00 06:00 WBC 15.7 H D RBC 3.74 Hgb 11.0 L Hct 36.9 L MCV 98.7 MCH 29.4 MCHC 29.8 L RDW 21.1 H Plt Count 110 L MPV 10.8 pCO2 pO2 HCO3 ABG pH ABG Total CO2 ABG O2 Saturation ABG O2 Content ABG Base Excess ABG Hemoglobin ABG Carboxyhemoglobin POC ABG HHb (Measured) ABG Methemoglobin ABG O2 Capacity Hgb O2 Saturation FiO2 Sodium 151 H Potassium 4.7 Chloride 120 H Carbon Dioxide 24 Anion Gap 13 BUN 119 H Creatinine 1.7 H Est GFR ( Amer) 47 Est GFR (Non-Af Amer) 39 POC Glucose (mg/dL) 91 Random Glucose 92 Calcium 8.0 L Total Bilirubin 2.8 H AST 39 ALT 60 H Alkaline Phosphatase 65 Total Creatine Kinase Total Protein 4.4 L Albumin 2.1 L Globulin 2.3 Albumin/Globulin Ratio 0.9 L Procalcitonin 09/08/18 08:30 WBC RBC Hgb Hct MCV MCH MCHC RDW Plt Count MPV pCO2 pO2 HCO3 ABG pH ABG Total CO2 ABG O2 Saturation ABG O2 Content ABG Base Excess ABG Hemoglobin ABG Carboxyhemoglobin POC ABG HHb (Measured) ABG Methemoglobin ABG O2 Capacity Hgb O2 Saturation FiO2 Sodium Potassium Chloride Carbon Dioxide Anion Gap BUN Creatinine Est GFR ( Amer) Est GFR (Non-Af Amer) POC Glucose (mg/dL) Random Glucose Calcium Total Bilirubin AST ALT Alkaline Phosphatase Total Creatine Kinase 23 L Total Protein Albumin Globulin Albumin/Globulin Ratio Procalcitonin Fingerstick Blood Sugar Results: 91 Review of Systems - Review of Systems Systems not reviewed;Unavailable: Acuity of Condition Critical Care Progress Note - Ventilator Checklist Head of Bed 30 Degrees: Yes Daily Sedation Vacation: Yes Daily Assessment of Readiness to Wean: Yes Daily Spontaneous Breathing Trial: Yes PUD Prophalyxis: Yes DVT Prophylaxis: Yes Oral Care with Chlorhexidine Gluconate {CHG}: Yes - Vent Settings MODE:: PRVC TIDAL VOLUME:: 400 RESP RATE:: 14 FIO2:: 40 PEEP:: 8 - Extremities/Vascular Does the Patient have a Central Venous Catheter?: Yes Insertion Site: Internal Jugular Vein Does the Patient need a Central Venous Catheter?: Yes Does the Patient have a Mcintosh Catheter?: Yes Does the Patient need a Mcintosh Catheter?: Yes Catheter Insertion Criteria: Need for accurate measurement of output in critically ill patient - Restraints Justification for Restraints: High risk for removing IV access - Prophylaxis GI Prophylaxis GI: Pepsid - Prophylaxis DVT Prophylaxis DVT: SCDs - Nutrition Nutrition: Nutrition Category Date Time Status NPO Diet [DIET] Diets 09/02/18 Lunch Ordered Assessment/Plan - Assessment and Plan (Free Text) Assessment: Patient is a 82 y/o male 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 Due to patient's history of recurrent intubations and mucus plugs, patient was a candidate for tracheostomy tube. Consent for procedure was received from family, patient is s/p tracheostomy tube. Plan: Neuro: - Propofol gtt was stopped - Unchanged mental status; not following commands - maintain normothermia Pulm: - Plan to wean the patient off to trach collar - Patient is s/p tracheostomy tube (09/07) - R-IJ was placed for access and LUE PICC line was removed (09/07) - s/p elective brochoscopy (09/02) - sputum cx results s/p bronch are normal - c/w Prednisone 10mg PO daily, xopenex, pulmicort - Pulmonology is following, recs appreciated - Maintain SaO2 > 90% - Hx recurrent L-lung atelectasis and mucus plugging s/p bronchoscopy x3 - Hx of COPD and smoking Cardio: - Afib is now rate controlled - Cardizem gtt was stopped; c/w verapamil - Cario is following, recs appreciated - Maintain MAP > 65 - Hx of endovascular repair of AAA - Hx of HTN GI: - ostomy bag with soft stool. 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 with viscus rupture and ex-lap and peritonitis Renal: - Worsening renal function - NS IVF discontinued due to hypernatremia and hypercholoremia; replaced with D5W IVF - Renal ultrasound ordered to r/o obstructive uropathy - continue to monitor ins/outs Heme: - H/H stable - Chronic Thrombocytopenia - No signs of active bleeding at this time - Continue to monitor ID: - Patient had fevers during hospital course - septic w/u has been negative thus far. Old IV catheters were removed, patient now has a new R-IJ for access. - Evaluate for other sources of fever: C. diff, venous doppler to r/o DVT, also consider acalculous cholecystitis - vancomycin was started - c/w meropenem (Day #7); started on daptomycin and Micafungin (Day #3) as per ID recs - c/w IV acetaminophen for fevers - VRE+ Endo: - Maintain euglycemia - ISS - low Prophylaxis: - DVT ppx: SCD, Hep SC - GI ppx: pepcid Palliative care is on board. Dispo: Continue to manage the patient in the ICU. Case was discussed and reviewed with Attending Physician, Dr. Andujar. <Ari Andujar - Last Filed: 09/09/18 07:41> CCU Objective - Vital Signs / Intake & Output Vital Signs (Last 4 hours): Vital Signs Temp Resp BP Pulse Ox 09/09/18 07:30 20 100 09/09/18 05:31 133/55 L 09/09/18 04:00 99.8 F H Intake and Output (Last 8hrs): Intake & Output 09/08/18 09/09/18 09/09/18 22:59 06:59 14:59 Intake Total 2300 Output Total 650 Balance 1650 Intake: IV 1550 Right Internal Jugular 1550 Tube Feeding 450 Other 300 Output: Drainage 350 Colostomy 200 Right Abdomen 150 Urine 300 Condom 300 - Medications Active Medications: Active Medications Generic Name Dose Route Start Last Admin Trade Name Freq PRN Reason Stop Dose Admin Acetylcysteine 4 ml 09/02/18 08:00 09/04/18 20:05 Acetylcysteine 20% IH Not Given [id number] KD Aspirin 81 mg 09/05/18 11:30 09/08/18 11:48 Aspirin Chewable PO 81 mg DAILY KD Administration Budesonide 0.5 mg 08/13/18 08:00 09/09/18 07:20 Pulmicort Respules IH 0.5 mg [id number] KD Administration Dextrose 0 ml 09/05/18 15:56 Dextrose 50% Inj IV STAT PRN Hypoglycemia Protocol Protocol Famotidine 20 mg 08/21/18 10:00 09/08/18 11:48 Pepcid PO 20 mg DAILY KD Administration Heparin Sodium (Porcine) 5,000 units 09/08/18 14:00 09/09/18 05:30 Heparin SC 5,000 units Q8 KD Administration Protocol Hydrocortisone Sodium Succinate 50 mg 09/08/18 22:00 09/08/18 21:00 Solu-Cortef IVP 50 mg Q8 KD Administration NOREPINEPHRINE BIT/0.9 % NACL 4 mg in 250 mls @ 15 mls/hr 09/02/18 09:00 09/02/18 18:00 Levophed 4 Mg/ 250 Ml Ns Premixed IV 0 mcg/min .[id number] PRN 0 mls/hr TITRATE PER MD ORDER Titration Protocol 4 MCG/MIN Propofol 1,000 mg in 100 mls @ 1.757 mls/hr 09/02/18 09:00 09/08/18 09:00 Diprivan IV 0 mcg/kg/min .Q24H PRN 0 mls/hr TITRATE PER MD ORDER Titration Protocol 5 MCG/KG/MIN Meropenem 1 gm in 50 mls @ 100 mls/hr 09/02/18 09:08 09/08/18 22:00 Merrem Iv 1 Gm Premix IVPB 09/11/18 09:09 100 mls/hr Q8 KD Administration Protocol Dextrose 1,000 mls @ 0 mls/hr 09/05/18 15:56 09/08/18 10:00 Dextrose 5% In Water 1000 Ml IV 100 mls/hr .Q0M PRN Administration Hypoglycemia Protocol Protocol Per Protocol Daptomycin 610 mg/ Sodium 100 mls @ 200 mls/hr 09/06/18 13:15 09/08/18 17:00 Chloride IV 09/13/18 13:16 200 mls/hr Q24H KD Administration NOREPINEPHRINE BIT/0.9 % NACL 4 mg in 250 mls @ 15 mls/hr 09/08/18 18:30 09/08/18 18:40 Levophed 4 Mg/ 250 Ml Ns Premixed IV 5 mcg/min .[id number] KD 18.75 mls/hr Administration Protocol 4 MCG/MIN Vasopressin 20 units/ Dextrose 101 mls @ 9.09 mls/hr 09/08/18 18:45 09/09/18 05:31 IV 9.09 mls/hr .[id number] KD Administration Protocol 0.03 U/MIN Dextrose 1,000 mls @ 100 mls/hr 09/08/18 14:30 09/09/18 01:24 Dextrose 5% In Water 1000 Ml IV 100 mls/hr .Q10H KD Administration Insulin Human Regular 0 units 09/03/18 12:00 09/09/18 05:30 Humulin R Low SC 4 units Q6 KD Administration Protocol Levalbuterol HCl 0.63 mg 08/18/18 08:00 09/09/18 01:17 Xopenex IH 0.63 mg [id number] KD Administration Vancomycin HCl 250 mg 09/08/18 18:00 09/08/18 21:00 Vancocin 25 Mg/Ml (Oral Use) PO 250 mg QID KD Administration Protocol Verapamil HCl 2.5 mg 08/31/18 09:03 Verapamil Inj IVP Q6H PRN for heart rate >130 Verapamil HCl 40 mg 09/08/18 18:15 09/09/18 04:32 Calan Tab PO Not Given Q8H KD - Patient Studies Lab Studies: Microbiology Studies 09/07/18 20:40 Gram Stain - Final Other: Please Indicate 09/06/18 12:00 Blood Culture - Preliminary Blood NO GROWTH AFTER 48 HOURS 09/06/18 11:45 Blood Culture - Preliminary Blood NO GROWTH AFTER 48 HOURS 09/07/18 08:16 Gram Stain - Final Sputum Induced Sputum Culture - Preliminary No growth. Lab Studies 09/09/18 09/09/18 09/09/18 Range/Units 07:00 07:00 05:28 WBC 15.1 H D (4.5-11.0) 10^3/uL RBC 3.25 L (3.5-6.1) 10^6/uL Hgb 9.8 L D (14.0-18.0) g/dL Hct 31.5 L (42.0-52.0) % MCV 100.0 (80.0-105.0) fl MCH 30.2 (25.0-35.0) pg MCHC 31.1 (31.0-37.0) g/dl RDW 20.2 H (11.5-14.5) % Plt Count 99 L (120.0-450.0) 10^3/uL MPV 11.0 (7.0-11.0) fl pCO2 (35-45) mm/Hg pO2 (80-100) mm/Hg HCO3 (21-28) mmol/L ABG pH (7.35-7.45) ABG Total CO2 (22-28) mmol.L ABG O2 Saturation (95-98) % ABG Base Excess (-2.0-3.0) mmol/L ABG Potassium (3.6-5.2) mmol/L VBG pH (7.32-7.43) VBG pCO2 (40-60) VBG HCO3 (21-28) mmol/l VBG Total CO2 (22-28) mmol.L VBG O2 Sat (Calc) (40-65) % VBG Base Excess (0.0-2.0) mmol/L VBG Potassium (3.6-5.2) mmol/L Sodium 148 (132-148) mmol/L Chloride 118 H (98-107) mmol/L Glucose (75-110) mg/dl Lactate (0.7-2.1) mmol/L FiO2 % PEEP Pressure Support CPAP Potassium 4.5 (3.6-5.0) mmol/L Carbon Dioxide 22 (21-33) mmol/L Anion Gap 13 (10-20) BUN > 120 H* (7-21) mg/dL Creatinine 1.9 H (0.8-1.5) mg/dl Est GFR ( Amer) 41 Est GFR (Non-Af Amer) 34 POC Glucose (mg/dL) 321 H (65-110) mg/dL Random Glucose 257 H (70-110) mg/dL Calcium 7.5 L (8.4-10.5) mg/dL Phosphorus 7.6 H (2.5-4.5) mg/dL Magnesium 2.7 H (1.7-2.2) mg/dL Total Bilirubin 2.9 H (0.2-1.3) mg/dL AST 41 (17-59) U/L ALT 53 (7-56) U/L Alkaline Phosphatase 56 (38-126) U/L Total Creatine Kinase (35-230) U/L Total Protein 4.2 L (5.8-8.3) g/dL Albumin 2.1 L (3.0-4.8) g/dL Globulin 2.0 gm/dL Albumin/Globulin Ratio 1.1 (1.1-1.8) Arterial Blood Potassium (3.6-5.2) mmol/L Venous Blood Potassium (3.6-5.2) mmol/L Crossmatch 09/09/18 09/09/18 09/08/18 Range/Units 03:45 00:04 21:14 WBC (4.5-11.0) 10^3/uL RBC (3.5-6.1) 10^6/uL Hgb (14.0-18.0) g/dL Hct (42.0-52.0) % MCV (80.0-105.0) fl MCH (25.0-35.0) pg MCHC (31.0-37.0) g/dl RDW (11.5-14.5) % Plt Count (120.0-450.0) 10^3/uL MPV (7.0-11.0) fl pCO2 38 (35-45) mm/Hg pO2 43 149.0 H (80-100) mm/Hg HCO3 17.9 L (21-28) mmol/L ABG pH 7.28 L (7.35-7.45) ABG Total CO2 19.1 L (22-28) mmol.L ABG O2 Saturation 100.1 H (95-98) % ABG Base Excess -8.2 L (-2.0-3.0) mmol/L ABG Potassium 4.4 (3.6-5.2) mmol/L VBG pH 7.30 L (7.32-7.43) VBG pCO2 41.0 (40-60) VBG HCO3 20.2 L (21-28) mmol/l VBG Total CO2 21.5 L (22-28) mmol.L VBG O2 Sat (Calc) 79.6 H (40-65) % VBG Base Excess -5.9 L (0.0-2.0) mmol/L VBG Potassium 4.5 (3.6-5.2) mmol/L Sodium 146.0 147.0 (132-148) mmol/L Chloride 115.0 H 117.0 H (98-107) mmol/L Glucose 287 H 247 H (75-110) mg/dl Lactate 2.3 H 2.7 H (0.7-2.1) mmol/L FiO2 21.0 40.0 % PEEP Pressure Support CPAP Potassium (3.6-5.0) mmol/L Carbon Dioxide (21-33) mmol/L Anion Gap (10-20) BUN (7-21) mg/dL Creatinine (0.8-1.5) mg/dl Est GFR ( Amer) Est GFR (Non-Af Amer) POC Glucose (mg/dL) 249 H (65-110) mg/dL Random Glucose (70-110) mg/dL Calcium (8.4-10.5) mg/dL Phosphorus (2.5-4.5) mg/dL Magnesium (1.7-2.2) mg/dL Total Bilirubin (0.2-1.3) mg/dL AST (17-59) U/L ALT (7-56) U/L Alkaline Phosphatase (38-126) U/L Total Creatine Kinase (35-230) U/L Total Protein (5.8-8.3) g/dL Albumin (3.0-4.8) g/dL Globulin gm/dL Albumin/Globulin Ratio (1.1-1.8) Arterial Blood Potassium 4.4 (3.6-5.2) mmol/L Venous Blood Potassium 4.5 (3.6-5.2) mmol/L Crossmatch 09/08/18 09/08/18 09/08/18 Range/Units 17:53 17:18 17:00 WBC 24.1 H D (4.5-11.0) 10^3/uL RBC 4.01 (3.5-6.1) 10^6/uL Hgb 12.3 L (14.0-18.0) g/dL Hct 40.2 L (42.0-52.0) % MCV 100.2 (80.0-105.0) fl MCH 30.7 (25.0-35.0) pg MCHC 30.6 L (31.0-37.0) g/dl RDW 21.0 H (11.5-14.5) % Plt Count 149 (120.0-450.0) 10^3/uL MPV 11.4 H (7.0-11.0) fl pCO2 (35-45) mm/Hg pO2 (80-100) mm/Hg HCO3 (21-28) mmol/L ABG pH (7.35-7.45) ABG Total CO2 (22-28) mmol.L ABG O2 Saturation (95-98) % ABG Base Excess (-2.0-3.0) mmol/L ABG Potassium (3.6-5.2) mmol/L VBG pH (7.32-7.43) VBG pCO2 (40-60) VBG HCO3 (21-28) mmol/l VBG Total CO2 (22-28) mmol.L VBG O2 Sat (Calc) (40-65) % VBG Base Excess (0.0-2.0) mmol/L VBG Potassium (3.6-5.2) mmol/L Sodium 149 H (132-148) mmol/L Chloride 117 H (98-107) mmol/L Glucose (75-110) mg/dl Lactate (0.7-2.1) mmol/L FiO2 % PEEP Pressure Support CPAP Potassium 5.5 H (3.6-5.0) mmol/L Carbon Dioxide 23 (21-33) mmol/L Anion Gap 14 (10-20) BUN 133 H* (7-21) mg/dL Creatinine 1.8 H (0.8-1.5) mg/dl Est GFR ( Amer) 44 Est GFR (Non-Af Amer) 36 POC Glucose (mg/dL) 160 H (65-110) mg/dL Random Glucose 166 H (70-110) mg/dL Calcium 7.9 L (8.4-10.5) mg/dL Phosphorus (2.5-4.5) mg/dL Magnesium (1.7-2.2) mg/dL Total Bilirubin (0.2-1.3) mg/dL AST (17-59) U/L ALT (7-56) U/L Alkaline Phosphatase (38-126) U/L Total Creatine Kinase (35-230) U/L Total Protein (5.8-8.3) g/dL Albumin (3.0-4.8) g/dL Globulin gm/dL Albumin/Globulin Ratio (1.1-1.8) Arterial Blood Potassium (3.6-5.2) mmol/L Venous Blood Potassium (3.6-5.2) mmol/L Crossmatch 09/08/18 09/08/18 09/08/18 Range/Units 16:50 11:31 08:30 WBC (4.5-11.0) 10^3/uL RBC (3.5-6.1) 10^6/uL Hgb (14.0-18.0) g/dL Hct (42.0-52.0) % MCV (80.0-105.0) fl MCH (25.0-35.0) pg MCHC (31.0-37.0) g/dl RDW (11.5-14.5) % Plt Count (120.0-450.0) 10^3/uL MPV (7.0-11.0) fl pCO2 71 H* (35-45) mm/Hg pO2 154.0 H (80-100) mm/Hg HCO3 20.6 L (21-28) mmol/L ABG pH 7.07 L* (7.35-7.45) ABG Total CO2 22.8 (22-28) mmol.L ABG O2 Saturation 100.1 H (95-98) % ABG Base Excess -10.7 L (-2.0-3.0) mmol/L ABG Potassium 5.2 (3.6-5.2) mmol/L VBG pH (7.32-7.43) VBG pCO2 (40-60) VBG HCO3 (21-28) mmol/l VBG Total CO2 (22-28) mmol.L VBG O2 Sat (Calc) (40-65) % VBG Base Excess (0.0-2.0) mmol/L VBG Potassium (3.6-5.2) mmol/L Sodium 148.0 (132-148) mmol/L Chloride 117.0 H (98-107) mmol/L Glucose 180 H (75-110) mg/dl Lactate 1.8 (0.7-2.1) mmol/L FiO2 40.0 % PEEP 5 Pressure Support 5 CPAP 5 Potassium (3.6-5.0) mmol/L Carbon Dioxide (21-33) mmol/L Anion Gap (10-20) BUN (7-21) mg/dL Creatinine (0.8-1.5) mg/dl Est GFR ( Amer) Est GFR (Non-Af Amer) POC Glucose (mg/dL) 93 (65-110) mg/dL Random Glucose (70-110) mg/dL Calcium (8.4-10.5) mg/dL Phosphorus (2.5-4.5) mg/dL Magnesium (1.7-2.2) mg/dL Total Bilirubin (0.2-1.3) mg/dL AST (17-59) U/L ALT (7-56) U/L Alkaline Phosphatase (38-126) U/L Total Creatine Kinase 23 L (35-230) U/L Total Protein (5.8-8.3) g/dL Albumin (3.0-4.8) g/dL Globulin gm/dL Albumin/Globulin Ratio (1.1-1.8) Arterial Blood Potassium 5.2 (3.6-5.2) mmol/L Venous Blood Potassium (3.6-5.2) mmol/L Crossmatch 09/06/18 Range/Units 05:01 WBC (4.5-11.0) 10^3/uL RBC (3.5-6.1) 10^6/uL Hgb (14.0-18.0) g/dL Hct (42.0-52.0) % MCV (80.0-105.0) fl MCH (25.0-35.0) pg MCHC (31.0-37.0) g/dl RDW (11.5-14.5) % Plt Count (120.0-450.0) 10^3/uL MPV (7.0-11.0) fl pCO2 (35-45) mm/Hg pO2 (80-100) mm/Hg HCO3 (21-28) mmol/L ABG pH (7.35-7.45) ABG Total CO2 (22-28) mmol.L ABG O2 Saturation (95-98) % ABG Base Excess (-2.0-3.0) mmol/L ABG Potassium (3.6-5.2) mmol/L VBG pH (7.32-7.43) VBG pCO2 (40-60) VBG HCO3 (21-28) mmol/l VBG Total CO2 (22-28) mmol.L VBG O2 Sat (Calc) (40-65) % VBG Base Excess (0.0-2.0) mmol/L VBG Potassium (3.6-5.2) mmol/L Sodium (132-148) mmol/L Chloride (98-107) mmol/L Glucose (75-110) mg/dl Lactate (0.7-2.1) mmol/L FiO2 % PEEP Pressure Support CPAP Potassium (3.6-5.0) mmol/L Carbon Dioxide (21-33) mmol/L Anion Gap (10-20) BUN (7-21) mg/dL Creatinine (0.8-1.5) mg/dl Est GFR ( Amer) Est GFR (Non-Af Amer) POC Glucose (mg/dL) (65-110) mg/dL Random Glucose (70-110) mg/dL Calcium (8.4-10.5) mg/dL Phosphorus (2.5-4.5) mg/dL Magnesium (1.7-2.2) mg/dL Total Bilirubin (0.2-1.3) mg/dL AST (17-59) U/L ALT (7-56) U/L Alkaline Phosphatase (38-126) U/L Total Creatine Kinase (35-230) U/L Total Protein (5.8-8.3) g/dL Albumin (3.0-4.8) g/dL Globulin gm/dL Albumin/Globulin Ratio (1.1-1.8) Arterial Blood Potassium (3.6-5.2) mmol/L Venous Blood Potassium (3.6-5.2) mmol/L Crossmatch See Detail Laboratory Results - last 24 hr 09/06/18 09/08/18 09/08/18 05:01 08:30 11:31 WBC RBC Hgb Hct MCV MCH MCHC RDW Plt Count MPV pCO2 pO2 HCO3 ABG pH ABG Total CO2 ABG O2 Saturation ABG Base Excess ABG Potassium VBG pH VBG pCO2 VBG HCO3 VBG Total CO2 VBG O2 Sat (Calc) VBG Base Excess VBG Potassium Sodium Chloride Glucose Lactate FiO2 PEEP Pressure Support CPAP Potassium Carbon Dioxide Anion Gap BUN Creatinine Est GFR ( Amer) Est GFR (Non-Af Amer) POC Glucose (mg/dL) 93 Random Glucose Calcium Phosphorus Magnesium Total Bilirubin AST ALT Alkaline Phosphatase Total Creatine Kinase 23 L Total Protein Albumin Globulin Albumin/Globulin Ratio Arterial Blood Potassium Venous Blood Potassium Crossmatch See Detail 09/08/18 09/08/18 09/08/18 16:50 17:00 17:18 WBC 24.1 H D RBC 4.01 Hgb 12.3 L Hct 40.2 L MCV 100.2 MCH 30.7 MCHC 30.6 L RDW 21.0 H Plt Count 149 MPV 11.4 H pCO2 71 H* pO2 154.0 H HCO3 20.6 L ABG pH 7.07 L* ABG Total CO2 22.8 ABG O2 Saturation 100.1 H ABG Base Excess -10.7 L ABG Potassium 5.2 VBG pH VBG pCO2 VBG HCO3 VBG Total CO2 VBG O2 Sat (Calc) VBG Base Excess VBG Potassium Sodium 148.0 149 H Chloride 117.0 H 117 H Glucose 180 H Lactate 1.8 FiO2 40.0 PEEP 5 Pressure Support 5 CPAP 5 Potassium 5.5 H Carbon Dioxide 23 Anion Gap 14 BUN 133 H* Creatinine 1.8 H Est GFR ( Amer) 44 Est GFR (Non-Af Amer) 36 POC Glucose (mg/dL) Random Glucose 166 H Calcium 7.9 L Phosphorus Magnesium Total Bilirubin AST ALT Alkaline Phosphatase Total Creatine Kinase Total Protein Albumin Globulin Albumin/Globulin Ratio Arterial Blood Potassium 5.2 Venous Blood Potassium Crossmatch 09/08/18 09/08/18 09/09/18 17:53 21:14 00:04 WBC RBC Hgb Hct MCV MCH MCHC RDW Plt Count MPV pCO2 38 pO2 149.0 H HCO3 17.9 L ABG pH 7.28 L ABG Total CO2 19.1 L ABG O2 Saturation 100.1 H ABG Base Excess -8.2 L ABG Potassium 4.4 VBG pH VBG pCO2 VBG HCO3 VBG Total CO2 VBG O2 Sat (Calc) VBG Base Excess VBG Potassium Sodium 147.0 Chloride 117.0 H Glucose 247 H Lactate 2.7 H FiO2 40.0 PEEP Pressure Support CPAP Potassium Carbon Dioxide Anion Gap BUN Creatinine Est GFR ( Amer) Est GFR (Non-Af Amer) POC Glucose (mg/dL) 160 H 249 H Random Glucose Calcium Phosphorus Magnesium Total Bilirubin AST ALT Alkaline Phosphatase Total Creatine Kinase Total Protein Albumin Globulin Albumin/Globulin Ratio Arterial Blood Potassium 4.4 Venous Blood Potassium Crossmatch 09/09/18 09/09/18 09/09/18 03:45 05:28 07:00 WBC RBC Hgb Hct MCV MCH MCHC RDW Plt Count MPV pCO2 pO2 43 HCO3 ABG pH ABG Total CO2 ABG O2 Saturation ABG Base Excess ABG Potassium VBG pH 7.30 L VBG pCO2 41.0 VBG HCO3 20.2 L VBG Total CO2 21.5 L VBG O2 Sat (Calc) 79.6 H VBG Base Excess -5.9 L VBG Potassium 4.5 Sodium 146.0 148 Chloride 115.0 H 118 H Glucose 287 H Lactate 2.3 H FiO2 21.0 PEEP Pressure Support CPAP Potassium 4.5 Carbon Dioxide 22 Anion Gap 13 BUN > 120 H* Creatinine 1.9 H Est GFR ( Amer) 41 Est GFR (Non-Af Amer) 34 POC Glucose (mg/dL) 321 H Random Glucose 257 H Calcium 7.5 L Phosphorus 7.6 H Magnesium 2.7 H Total Bilirubin 2.9 H AST 41 ALT 53 Alkaline Phosphatase 56 Total Creatine Kinase Total Protein 4.2 L Albumin 2.1 L Globulin 2.0 Albumin/Globulin Ratio 1.1 Arterial Blood Potassium Venous Blood Potassium 4.5 Crossmatch 09/09/18 07:00 WBC 15.1 H D RBC 3.25 L Hgb 9.8 L D Hct 31.5 L MCV 100.0 MCH 30.2 MCHC 31.1 RDW 20.2 H Plt Count 99 L MPV 11.0 pCO2 pO2 HCO3 ABG pH ABG Total CO2 ABG O2 Saturation ABG Base Excess ABG Potassium VBG pH VBG pCO2 VBG HCO3 VBG Total CO2 VBG O2 Sat (Calc) VBG Base Excess VBG Potassium Sodium Chloride Glucose Lactate FiO2 PEEP Pressure Support CPAP Potassium Carbon Dioxide Anion Gap BUN Creatinine Est GFR ( Amer) Est GFR (Non-Af Amer) POC Glucose (mg/dL) Random Glucose Calcium Phosphorus Magnesium Total Bilirubin AST ALT Alkaline Phosphatase Total Creatine Kinase Total Protein Albumin Globulin Albumin/Globulin Ratio Arterial Blood Potassium Venous Blood Potassium Crossmatch Critical Care Progress Note - Nutrition Nutrition: Nutrition Category Date Time Status NPO Diet [DIET] Diets 09/02/18 Lunch Ordered Attending/Attestation - Attestation I have personally seen and examined this patient.: Yes I have fully participated in the care of the patient.: Yes I have reviewed all pertinent clinical information: Yes Notes (Text): 09/09/18 07:[address] Andujar note
--- NOTE | 2018-09-08 10:52 | CP.PCM.PN ---
Subjective - Date & Time of Evaluation Date of Evaluation: 09/08/18 Time of Evaluation: 10:35 - Subjective Subjective: General Surgery Dr. Du Pt S&E @bedside. Pt had open tracheostomy performed yesterday evening. Pt tolerated procedure well w/ no complications. No acute events overnight. pt sedated, unable to follow commands. ROS unobtainable. Objective - Vital Signs/Intake and Output Vital Signs (last 24 hours): Temp Pulse Resp BP Pulse Ox 98.7 F 92 H 19 96/47 L 100 09/08/18 04:00 09/08/18 06:00 09/06/18 04:00 09/08/18 04:00 09/08/18 04:00 Intake and Output: 09/08/18 09/08/18 06:59 18:59 Intake Total 1604 100 Output Total 190 Balance 1414 100 - Medications Medications: Current Medications Acetylcysteine (Acetylcysteine 20%) 4 ml IH [id number] [facility] Last Admin: 09/04/18 20:05 Dose: Not Given Aspirin (Aspirin Chewable) 81 mg PO DAILY [facility] Last Admin: 09/07/18 09:35 Dose: 81 mg Budesonide (Pulmicort Respules) 0.5 mg IH [id number] [facility] Last Admin: 09/08/18 07:48 Dose: 0.5 mg Clonidine HCl (Catapres Tts1 0.1 Mg/24 Hr) 1 patch TD Q7D@1000 [facility] Last Admin: 09/03/18 15:53 Dose: 1 patch Dextrose (Dextrose 50% Inj) 0 ml IV STAT PRN; Protocol PRN Reason: Hypoglycemia Protocol Famotidine (Pepcid) 20 mg PO DAILY [facility] Last Admin: 09/07/18 09:35 Dose: 20 mg NOREPINEPHRINE BIT/0.9 % NACL (Levophed 4 Mg/ 250 Ml Ns Premixed) 4 mg in 250 mls @ 15 mls/hr IV .[id number] PRN; Protocol PRN Reason: TITRATE PER MD ORDER Last Titration: 09/02/18 18:00 Dose: 0 mcg/min, 0 mls/hr Propofol (Diprivan) 1,000 mg in 100 mls @ 1.757 mls/hr IV .Q24H PRN; Protocol PRN Reason: TITRATE PER MD ORDER Last Admin: 09/07/18 21:12 Dose: 20 mcg/kg/min, 7.027 mls/hr Meropenem (Merrem Iv 1 Gm Premix) 1 gm in 50 mls @ 100 mls/hr IVPB Q8 KD; Protocol Stop: 09/11/18 09:09 Last Admin: 09/08/18 05:45 Dose: 100 mls/hr diltiaZEM IVPB 100mg in NS (Cardizem 100mg In Ns) 100 mls @ 10 mls/hr IV .Q10H PRN; Protocol PRN Reason: TITRATE PER MD ORDER Last Admin: 09/08/18 08:18 Dose: 15 mg/hr, 15 mls/hr Dextrose (Dextrose 5% In Water 1000 Ml) 1,000 mls @ 0 mls/hr IV .Q0M PRN; Protocol PRN Reason: Hypoglycemia Protocol Micafungin Sodium 100 mg/ (Sodium Chloride) 100 mls @ 100 mls/hr IV DAILY KD; Protocol Stop: 09/13/18 12:46 Last Admin: 09/07/18 09:37 Dose: 100 mls/hr Daptomycin 610 mg/ Sodium (Chloride) 100 mls @ 200 mls/hr IV Q24H KD Stop: 09/13/18 13:16 Last Admin: 09/07/18 13:32 Dose: 200 mls/hr Acetaminophen (Ofirmev) 1,000 mg in 100 mls @ 400 mls/hr IVPB Q6H PRN PRN Reason: Temperature Stop: 09/08/18 21:46 Last Admin: 09/07/18 11:53 Dose: 400 mls/hr Dextrose (Dextrose 5% In Water) 100 mls @ 100 mls/hr IV .Q1H KD Insulin Human Regular (Humulin R Low) 0 units SC Q6 KD; Protocol Last Admin: 09/08/18 06:56 Dose: Not Given Levalbuterol HCl (Xopenex) 0.63 mg IH [id number] [facility] Last Admin: 09/08/18 07:48 Dose: 0.63 mg Metoprolol Tartrate (Lopressor) 50 mg PO BRKDIN KD Last Admin: 09/07/18 17:30 Dose: Not Given Prednisone (Prednisone Tab) 10 mg PO DAILY [facility] Last Admin: 09/07/18 09:39 Dose: 10 mg Verapamil HCl (Verapamil Inj) 2.5 mg IVP Q6H PRN PRN Reason: for heart rate >130 Verapamil HCl (Calan Tab) 40 mg PO TID KD - Labs Labs: 09/08/18 06:00 09/08/18 06:00 PT 15.1 SECONDS (9.4-12.5) H 09/06/18 05:01 INR 1.31 09/06/18 05:01 APTT 31.7 Seconds (25.1-36.5) 09/06/18 05:01 - Constitutional Appears: Toxic, Chronically Ill - Head Exam Head Exam: NORMAL INSPECTION - Eye Exam Eye Exam: Normal appearance - ENT Exam ENT Exam: Mucous Membranes Moist - Neck Exam Additional comments: trach in place. functioning appropriately - Respiratory Exam Respiratory Exam: NORMAL BREATHING PATTERN (mechanical ventilation). absent: Accessory Muscle Use, Respiratory Distress - Cardiovascular Exam Cardiovascular Exam: absent: Bradycardia, Tachycardia - GI/Abdominal Exam GI & Abdominal Exam: Soft. absent: Distended, Firm, Guarding, Rigid, Tenderness, Rebound Additional comments: incision c/d/i mayra w/ serous fluid stoma pink, patent ostomy w/ stool present - Extremities Exam Extremities Exam: Normal Inspection - Neurological Exam Neurological Exam: Altered - Skin Skin Exam: Dry, Intact, Normal Color, Warm Assessment and Plan - Assessment and Plan (Free Text) Assessment: 82 y/o M POD#1 s/p tracheostomy for vent-dependent respiratory failure s/p bronchioalveolar lavage s/p ex lap w/ ileal perforation w/ resolved VRE+ peritonitis Plan: - Vent weaning per ICU - cont tube feeds - Cont to monitor ostomy and mayra output - IV Abx per ID - Daily labs - Replete electrolytes PRN - family meeting planned for today to discuss long-term care goals Further recs per Dr. Florian West DO PGY3
--- NOTE | 2018-09-08 11:22 | CP.PCM.PN ---
Subjective - Date & Time of Evaluation Date of Evaluation: 09/08/18 Time of Evaluation: 10:00 - Subjective Subjective: pt seen and examined at bedside, pt not arousable with verbal and tactile stimulation , Dr Soto at bedside to evaluate patient ROS unobtainable Objective - Vital Signs/Intake and Output Vital Signs (last 24 hours): Temp Pulse Resp BP Pulse Ox 98.7 F 92 H 19 96/47 L 100 09/08/18 04:00 09/08/18 06:00 09/06/18 04:00 09/08/18 04:00 09/08/18 04:00 Intake and Output: 09/08/18 09/08/18 06:59 18:59 Intake Total 1604 100 Output Total 190 Balance 1414 100 - Medications Medications: Current Medications Acetylcysteine (Acetylcysteine 20%) 4 ml IH [id number] [facility] Last Admin: 09/04/18 20:05 Dose: Not Given Aspirin (Aspirin Chewable) 81 mg PO DAILY [facility] Last Admin: 09/07/18 09:35 Dose: 81 mg Budesonide (Pulmicort Respules) 0.5 mg IH [id number] [facility] Last Admin: 09/08/18 07:48 Dose: 0.5 mg Clonidine HCl (Catapres Tts1 0.1 Mg/24 Hr) 1 patch TD Q7D@1000 [facility] Last Admin: 09/03/18 15:53 Dose: 1 patch Dextrose (Dextrose 50% Inj) 0 ml IV STAT PRN; Protocol PRN Reason: Hypoglycemia Protocol Famotidine (Pepcid) 20 mg PO DAILY [facility] Last Admin: 09/07/18 09:35 Dose: 20 mg Furosemide (Lasix) 20 mg IV Q12H [facility] Heparin Sodium (Porcine) (Heparin) 5,000 units SC Q8 [facility]; Protocol NOREPINEPHRINE BIT/0.9 % NACL (Levophed 4 Mg/ 250 Ml Ns Premixed) 4 mg in 250 mls @ 15 mls/hr IV .[id number] PRN; Protocol PRN Reason: TITRATE PER MD ORDER Last Titration: 09/02/18 18:00 Dose: 0 mcg/min, 0 mls/hr Propofol (Diprivan) 1,000 mg in 100 mls @ 1.757 mls/hr IV .Q24H PRN; Protocol PRN Reason: TITRATE PER MD ORDER Last Admin: 09/07/18 21:12 Dose: 20 mcg/kg/min, 7.027 mls/hr Meropenem (Merrem Iv 1 Gm Premix) 1 gm in 50 mls @ 100 mls/hr IVPB Q8 KD; Protocol Stop: 09/11/18 09:09 Last Admin: 09/08/18 05:45 Dose: 100 mls/hr diltiaZEM IVPB 100mg in NS (Cardizem 100mg In Ns) 100 mls @ 10 mls/hr IV .Q10H PRN; Protocol PRN Reason: TITRATE PER MD ORDER Last Admin: 09/08/18 08:18 Dose: 15 mg/hr, 15 mls/hr Dextrose (Dextrose 5% In Water 1000 Ml) 1,000 mls @ 0 mls/hr IV .Q0M PRN; Protocol PRN Reason: Hypoglycemia Protocol Micafungin Sodium 100 mg/ (Sodium Chloride) 100 mls @ 100 mls/hr IV DAILY KD; Protocol Stop: 09/13/18 12:46 Last Admin: 09/07/18 09:37 Dose: 100 mls/hr Daptomycin 610 mg/ Sodium (Chloride) 100 mls @ 200 mls/hr IV Q24H KD Stop: 09/13/18 13:16 Last Admin: 09/07/18 13:32 Dose: 200 mls/hr Acetaminophen (Ofirmev) 1,000 mg in 100 mls @ 400 mls/hr IVPB Q6H PRN PRN Reason: Temperature Stop: 09/08/18 21:46 Last Admin: 09/07/18 11:53 Dose: 400 mls/hr Dextrose (Dextrose 5% In Water) 100 mls @ 100 mls/hr IV .Q1H KD Insulin Human Regular (Humulin R Low) 0 units SC Q6 KD; Protocol Last Admin: 09/08/18 06:56 Dose: Not Given Levalbuterol HCl (Xopenex) 0.63 mg IH [id number] [facility] Last Admin: 09/08/18 07:48 Dose: 0.63 mg Metoprolol Tartrate (Lopressor) 50 mg PO BRKDIN [facility] Last Admin: 09/07/18 17:30 Dose: Not Given Prednisone (Prednisone Tab) 10 mg PO DAILY [facility] Last Admin: 09/07/18 09:39 Dose: 10 mg Verapamil HCl (Verapamil Inj) 2.5 mg IVP Q6H PRN PRN Reason: for heart rate >130 Verapamil HCl (Calan Tab) 40 mg PO TID KD - Labs Labs: 09/08/18 06:00 09/08/18 06:00 PT 15.1 SECONDS (9.4-12.5) H 09/06/18 05:01 INR 1.31 09/06/18 05:01 APTT 31.7 Seconds (25.1-36.5) 09/06/18 05:01 - Constitutional Appears: No Acute Distress, Cachectic, Chronically Ill - Head Exam Head Exam: NORMAL INSPECTION - ENT Exam ENT Exam: Mucous Membranes Dry - Respiratory Exam Respiratory Exam: Decreased Breath Sounds - Cardiovascular Exam Cardiovascular Exam: Irregular Rhythm, +S1, +S2 Additional comments: afib on monitor - GI/Abdominal Exam GI & Abdominal Exam: Soft Additional comments: colostomy bag intact - Neurological Exam Additional comments: pt unarousable to verbal and tactile stimuli, sedated - Skin Skin Exam: Dry, Warm Assessment and Plan - Assessment and Plan (Free Text) Plan: 82 yr old male s/p exp lap and ileal perforation with VRE sepsis and jagdeep tropicalis readmitted to ICU post elective Bronch for mucus plugging where he was intubated and sedated, seen in ICu being treated for rapid afib on iv cardizem gtt at 10/hr , s/p extubation and trach insertion yesterday remains sedated on pressors with leukocytosis and continues on IV antibiotics of Merem and daptomycin q 24 hrs, IV fluids. BC shows no growth after 48 hrs on 09/06, Uc shows no growth , cxr 09/08 reveal cental lines intact with clear lungs. I/O noted 220ml balance discuss with nurse and cm plan of care. Dr Du note reviewed pt not ready for [facility] will continue to follow clinical course. Brenda Brumfield , DNP, SECURITY PROFESSIONAL
--- NOTE | 2018-09-08 11:26 | CP.PCM.PCO ---
Physician Communication Note - Physician Communication Note Physician Communication Note: Fluid overload/Reshma from skin NOTAscites/Not ready for LTAC yet
--- NOTE | 2018-09-08 12:14 | PN ---
DATE: 09/08/2018 SUBJECTIVE: The patient seen and examined at bedside. The propofol was just stopped. Cardizem drip was just stopped. The patient started waking up very slowly; however, still not following commands. He is on pressure support 5/5 with FiO2 of 40%. He is pulling 300-350 mL of tidal volume. His rapid shallow breathing index 76. End-tidal CO2 on the monitor 33, oxygen saturation 100% on FiO2 40%. OBJECTIVE: VITAL SIGNS: Blood pressure 108/56, heart rate 98, respiratory rate 26. The patient tolerated enteral nutrition well. No residual and liquid brownish output from the colostomy. ENT: Head and neck atraumatic. LUNGS: Both lungs are clear to auscultation bilaterally. HEART: Irregular rate and rhythm. S1, S2 distant. ABDOMEN: Soft, nontender, nondistended. Colostomy bag present. There is a brownish fecal colored output in the back. Colostomy looks viable. NEUROLOGIC: The patient is still sedated. SKIN: Moist. PSYCH: Patient is still under influence of sedation. MUSCULOSKELETAL: No C/C/E. The patient's urine output 40 mL/hour over the last 3 hours. LABORATORY DATA: Sodium 151, potassium 4.7, chloride 120 (normal saline was stopped and D5W at 100 mL/hour was initiated), carbon dioxide 24, BUN 119, creatinine 1.7 up from 1.2 (nephrology service is on board). Discussed antibiotics with ID. Does not appear that time mitchell worsening of renal failure coincides with initiation and duration of antibiotic therapy. Glucose 91, bilirubin 2.8, AST 39, ALT 16. CPK 23. ABG prior to switching to pressure support 7.36/38/161, WBC 15.7 up from 12.9, platelet count 110, hemoglobin 11. Urinalysis from 2 days ago showed negative urine nitrites and negative leukocyte esterase. MEDICATIONS: Tylenol p.r.n., aspirin, budesonide, Cardizem drip now on hold, daptomycin, D5 100 mL/hour, Pepcid 20 mg daily, Xopenex every 6 hours, meropenem, metoprolol, micafungin, prednisone 10 mg p.o. daily, vancomycin, verapamil p.r.n. and 40 mg p.o. 3 times daily. ASSESSMENT AND PLAN: This is an 82-year-old gentleman who initially presented to ICU for aggressive pulmonary toilet requiring endotracheal intubation and therapeutic bronchoscopy. After that, the patient received tracheotomy for continuous aggressive pulmonary toilet as per family request. He had spiked fever 2 days ago and had low-grade fever yesterday. His leukocytosis is somewhat rising. He is on broad-spectrum antibiotics and blood cultures as of 2 days ago are negative and urine culture from 2 days ago negative as well. Sputum culture did not show any growth; however, few gram positive cocci present. I spoke with Dr. Quispe about potential source of fever and leukocytosis. Of note, old indwelling IV catheters were removed and the patient has new right IJ CVC. Dobhoff tube was also new and was placed only yesterday, thus it is unlikely to cause sinusitis. I will send stool for ostomy for c.diff and start Vanco PO. The patient is also on micafungin to cover for fungal infection. We will do venous Doppler of lower extremities to rule out deep venous thrombosis. The patient is on heparin subcu for deep venous thrombosis prophylaxis which started today . I am concerned about worsening acute kidney injury. We will get input from Nephrology Service as to the next step. Meanwhile, I will stop normal saline and start D5W to avoid hyperchloremia and hypernatremia. We will try to maintain mean arterial pressure more than 65. We will correct electrolytes aggressively. I will order renal ultrasound to rule out obstructive uropathy and the Mcintosh is in place and the patient appears to have adequate urine output. If the patient tolerates oral nutrition well, we will continue with GI prophylaxis. We will continue with head of bed elevated more than 35 degrees. Oral hygiene. We will repeat ABG about 2 hours after pressure support trial initiated. Eventually, we will try to wean the patient off to trach collar. Heart rate currently is well controlled. We will continue with verapamil pill; however, wean off Cardizem drip. We will continue to maintain euvolemia, euglycemia, normothermia and oxygen saturation more than 90%. Addendum: No DVT on US; renal US--no hydronephrosis; GB wall a bit thickened, with pericholecystic fluid, no severe GB dilatation mentioned in the radiology report. no CBD dilatation. CT abdomen and pelvis was ordered. Patient was put back on PRVC as got tired and developed respiratory acidosis ccm time 40 min Ari Andujar MD MTDJevon
--- NOTE | 2018-09-08 12:32 | CP.PCM.PN ---
<Tito Doan - Last Filed: 09/08/18 12:27> Subjective - Date & Time of Evaluation Date of Evaluation: 09/08/18 Time of Evaluation: 12:28 - Subjective Subjective: Infectious disease progress note for Dr. Quispe/Dr. Garvin service - Carlton Doan PGY3 Patient seen and examined at bedside this morning. No reported overnight events. Patient remains intubated however propofol sedation has been discontinued as well as cardizem drip. 12point ROS limited due to patient status. Objective - Vital Signs/Intake and Output Vital Signs (last 24 hours): Temp Pulse Resp BP Pulse Ox 98.7 F 108 H 19 94/53 L 100 09/08/18 04:00 09/08/18 11:48 09/06/18 04:00 09/08/18 11:50 09/08/18 11:46 Intake and Output: 09/08/18 09/08/18 06:59 18:59 Intake Total 1604 220 Output Total 190 Balance 1414 220 - Medications Medications: Current Medications Acetylcysteine (Acetylcysteine 20%) 4 ml IH [id number] [facility] Last Admin: 09/04/18 20:05 Dose: Not Given Aspirin (Aspirin Chewable) 81 mg PO DAILY [facility] Last Admin: 09/08/18 11:48 Dose: 81 mg Budesonide (Pulmicort Respules) 0.5 mg IH [id number] [facility] Last Admin: 09/08/18 07:48 Dose: 0.5 mg Clonidine HCl (Catapres Tts1 0.1 Mg/24 Hr) 1 patch TD Q7D@1000 [facility] Last Admin: 09/03/18 15:53 Dose: 1 patch Dextrose (Dextrose 50% Inj) 0 ml IV STAT PRN; Protocol PRN Reason: Hypoglycemia Protocol Famotidine (Pepcid) 20 mg PO DAILY [facility] Last Admin: 09/08/18 11:48 Dose: 20 mg Furosemide (Lasix) 20 mg IV Q12H [facility] Last Admin: 09/08/18 11:50 Dose: 20 mg Heparin Sodium (Porcine) (Heparin) 5,000 units SC Q8 [facility]; Protocol NOREPINEPHRINE BIT/0.9 % NACL (Levophed 4 Mg/ 250 Ml Ns Premixed) 4 mg in 250 mls @ 15 mls/hr IV .[id number] PRN; Protocol PRN Reason: TITRATE PER MD ORDER Last Titration: 09/02/18 18:00 Dose: 0 mcg/min, 0 mls/hr Propofol (Diprivan) 1,000 mg in 100 mls @ 1.757 mls/hr IV .Q24H PRN; Protocol PRN Reason: TITRATE PER MD ORDER Last Titration: 09/08/18 09:00 Dose: 0 mcg/kg/min, 0 mls/hr Meropenem (Merrem Iv 1 Gm Premix) 1 gm in 50 mls @ 100 mls/hr IVPB Q8 KD; Protocol Stop: 09/11/18 09:09 Last Admin: 09/08/18 05:45 Dose: 100 mls/hr diltiaZEM IVPB 100mg in NS (Cardizem 100mg In Ns) 100 mls @ 10 mls/hr IV .Q10H PRN; Protocol PRN Reason: TITRATE PER MD ORDER Last Titration: 09/08/18 09:45 Dose: 0 mg/hr, 0 mls/hr Dextrose (Dextrose 5% In Water 1000 Ml) 1,000 mls @ 0 mls/hr IV .Q0M PRN; P rotocol PRN Reason: Hypoglycemia Protocol Last Admin: 09/08/18 10:00 Dose: 100 mls/hr Daptomycin 610 mg/ Sodium (Chloride) 100 mls @ 200 mls/hr IV Q24H KD Stop: 09/13/18 13:16 Last Admin: 09/07/18 13:32 Dose: 200 mls/hr Acetaminophen (Ofirmev) 1,000 mg in 100 mls @ 400 mls/hr IVPB Q6H PRN PRN Reason: Temperature Stop: 09/08/18 21:46 Last Admin: 09/07/18 11:53 Dose: 400 mls/hr Dextrose (Dextrose 5% In Water) 100 mls @ 100 mls/hr IV .Q1H KD Insulin Human Regular (Humulin R Low) 0 units SC Q6 KD; Protocol Last Admin: 09/08/18 06:56 Dose: Not Given Levalbuterol HCl (Xopenex) 0.63 mg IH [id number] [facility] Last Admin: 09/08/18 07:48 Dose: 0.63 mg Metoprolol Tartrate (Lopressor) 50 mg PO BRKDIN [facility] Last Admin: 09/08/18 11:48 Dose: 50 mg Prednisone (Prednisone Tab) 10 mg PO DAILY [facility] Last Admin: 09/07/18 09:39 Dose: 10 mg Verapamil HCl (Verapamil Inj) 2.5 mg IVP Q6H PRN PRN Reason: for heart rate >130 Verapamil HCl (Calan Tab) 40 mg PO TID [facility] Last Admin: 09/08/18 11:39 Dose: 40 mg - Labs Labs: 09/08/18 06:00 09/08/18 06:00 PT 15.1 SECONDS (9.4-12.5) H 09/06/18 05:01 INR 1.31 09/06/18 05:01 APTT 31.7 Seconds (25.1-36.5) 09/06/18 05:01 - Head Exam Head Exam: ATRAUMATIC, NORMOCEPHALIC - ENT Exam ENT Exam: Mucous Membranes Moist - Respiratory Exam Respiratory Exam: Clear to Ausculation Bilateral. absent: Rales, Rhonchi, Wheezes - Cardiovascular Exam Cardiovascular Exam: Irregular Rhythm, +S1, +S2. absent: Gallop, Rubs - GI/Abdominal Exam GI & Abdominal Exam: Soft. absent: Distended, Firm, Guarding, Rigid, Tenderness, Rebound Additional comments: colostomy site clean/dry/intact - Extremities Exam Extremities Exam: absent: Pedal Edema, Tenderness - Neurological Exam Additional comments: sedated - Skin Skin Exam: Dry, Intact, Normal Color, Warm Assessment and Plan - Assessment and Plan (Free Text) Plan: Patient is a 82yo male with history of rectal adenocarcinoma s/p hemicolectomy admitted to the icu with VDRF secondary to sepsis due to perforated ileum S/P ex-lap and resection of terminal ileum and primary anastomosis 1. ventilator-dependent respiratory failure 2. severe sepsis secondary perforated ileum s/p ex-lap 3. VRE and C. tropicalis 4. r/o hcap and line-related infection 5. Rectal Cancer 6. Atrial fibrillation 7. CAD 8. CHF, chronic 9. GERD -Continue with meropenem and daptomycin at this time -Patient received dose of vancomycin today -Previously received micamin given risk for fungal infections -Repeat blood cultures have been negative over 48hrs -Patient is at risk of fungal infection given that he has been on parenteral nutrition and has required surgical intervention -IV lines have to be removed and replaced -CXR reviewed -Continue current management as per ICU/Surgical teams -Overall prognosis remains poor Patient seen and case discussed/reviewed with attending, Dr. Quispe <Barry Quispe - Last Filed: 09/08/18 16:48> Objective - Vital Signs/Intake and Output Vital Signs (last 24 hours): Temp Pulse Resp BP Pulse Ox 98.7 F 89 19 100/59 L 100 09/08/18 04:00 09/08/18 16:15 09/06/18 04:00 09/08/18 16:15 09/08/18 16:15 Intake and Output: 09/08/18 09/08/18 06:59 18:59 Intake Total 1604 220 Output Total 190 Balance 1414 220 - Medications Medications: Current Medications Acetylcysteine (Acetylcysteine 20%) 4 ml IH [id number] [facility] Last Admin: 09/04/18 20:05 Dose: Not Given Aspirin (Aspirin Chewable) 81 mg PO DAILY [facility] Last Admin: 09/08/18 11:48 Dose: 81 mg Budesonide (Pulmicort Respules) 0.5 mg IH [id number] [facility] Last Admin: 09/08/18 07:48 Dose: 0.5 mg Clonidine HCl (Catapres Tts1 0.1 Mg/24 Hr) 1 patch TD Q7D@1000 [facility] Last Admin: 09/03/18 15:53 Dose: 1 patch Dextrose (Dextrose 50% Inj) 0 ml IV STAT PRN; Protocol PRN Reason: Hypoglycemia Protocol Famotidine (Pepcid) 20 mg PO DAILY [facility] Last Admin: 09/08/18 11:48 Dose: 20 mg Furosemide (Lasix) 20 mg IV Q12H [facility] Last Admin: 09/08/18 11:50 Dose: 20 mg Heparin Sodium (Porcine) (Heparin) 5,000 units SC Q8 [facility]; Protocol NOREPINEPHRINE BIT/0.9 % NACL (Levophed 4 Mg/ 250 Ml Ns Premixed) 4 mg in 250 mls @ 15 mls/hr IV .[id number] PRN; Protocol PRN Reason: TITRATE PER MD ORDER Last Titration: 09/02/18 18:00 Dose: 0 mcg/min, 0 mls/hr Propofol (Diprivan) 1,000 mg in 100 mls @ 1.757 mls/hr IV .Q24H PRN; Protocol PRN Reason: TITRATE PER MD ORDER Last Titration: 09/08/18 09:00 Dose: 0 mcg/kg/min, 0 mls/hr Meropenem (Merrem Iv 1 Gm Premix) 1 gm in 50 mls @ 100 mls/hr IVPB Q8 KD; Protocol Stop: 09/11/18 09:09 Last Admin: 09/08/18 05:45 Dose: 100 mls/hr diltiaZEM IVPB 100mg in NS (Cardizem 100mg In Ns) 100 mls @ 10 mls/hr IV .Q10H PRN; Protocol PRN Reason: TITRATE PER MD ORDER Last Titration: 09/08/18 09:45 Dose: 0 mg/hr, 0 mls/hr Dextrose (Dextrose 5% In Water 1000 Ml) 1,000 mls @ 0 mls/hr IV .Q0M PRN; Protocol PRN Reason: Hypoglycemia Protocol Last Admin: 09/08/18 10:00 Dose: 100 mls/hr Daptomycin 610 mg/ Sodium (Chloride) 100 mls @ 200 mls/hr IV Q24H [facility] Stop: 09/13/18 13:16 Last Admin: 09/07/18 13:32 Dose: 200 mls/hr Acetaminophen (Ofirmev) 1,000 mg in 100 mls @ 400 mls/hr IVPB Q6H PRN PRN Reason: Temperature Stop: 09/08/18 21:46 Last Admin: 09/07/18 11:53 Dose: 400 mls/hr Dextrose (Dextrose 5% In Water) 100 mls @ 100 mls/hr IV .Q1H [facility] Insulin Human Regular (Humulin R Low) 0 units SC Q6 KD; Protocol Last Admin: 09/08/18 12:00 Dose: Not Given Levalbuterol HCl (Xopenex) 0.63 mg IH [id number] [facility] Last Admin: 09/08/18 13:18 Dose: 0.63 mg Metoprolol Tartrate (Lopressor) 50 mg PO BRKDIN [facility] Last Admin: 09/08/18 11:48 Dose: 50 mg Prednisone (Prednisone Tab) 10 mg PO DAILY [facility] Last Admin: 09/08/18 13:28 Dose: 10 mg Verapamil HCl (Verapamil Inj) 2.5 mg IVP Q6H PRN PRN Reason: for heart rate >130 Verapamil HCl (Calan Tab) 40 mg PO TID [facility] Last Admin: 09/08/18 11:39 Dose: 40 mg - Labs Labs: 09/08/18 06:00 09/08/18 06:00 PT 15.1 SECONDS (9.4-12.5) H 09/06/18 05:01 INR 1.31 09/06/18 05:01 APTT 31.7 Seconds (25.1-36.5) 09/06/18 05:01 Assessment and Plan - Assessment and Plan (Free Text) Plan: Infectious diseases Attending Physician Attestation Patient seen and examined, discussed with medical instrument cable fabricator. I have reviewed the patient's history of present illness, past medical, social, personal and family histories, pertinent physical exam findings, course so far in this hospital admi ssion, pertinent laboratory and imaging results. I agree with the above findings, assessment and plan. In addition, will continue Daptomycin, Merrem, MYcamine, intermittent Vanco IV for this patient with severe sepsis with TDRF R/O HCAP, R/O line-related infection in this patient with intra-abdominal infection with VRE S/P surgery. Follow up final blood cx results. Continue to monitor renal function. Overall prognosis is poor. Discussed with Dr. Du.
--- NOTE | 2018-09-08 14:23 | PN ---
DATE: 09/08/2018 REASON FOR CONSULTATION AND FOLLOWUP: Atrial fibrillation, status post respiratory failure, status post abdominal surgery, status post tracheostomy, on Cardizem 15 mg per hour. SUBJECTIVE: The patient is sleeping. I awakened him. Denies any chest pain, shortness of breath, or any palpitations. OBJECTIVE: GENERAL: Not in apparent distress. VITAL SIGNS: Temperature afebrile, heart rate 92, blood pressure 96/47. HEENT: PERRLA. Extraocular muscles intact. NECK: Supple. No carotid bruits or thyromegaly. CHEST: Clear to auscultation. HEART: S1 and S2 regular. ABDOMEN: Soft. EXTREMITIES: Clubbing and cyanosis negative. LABORATORY DATA: Blood workup as follows: WBC 15.7, hemoglobin 11, hematocrit 36.9, platelet count 110. Chemistries showed sodium 151, potassium 4.7, chloride of 120, carbon dioxide 24, anion gap of 13, BUN 119, creatinine 1.7. IMPRESSION: Hypernatremia, anemia, leukocytosis, status post endovascular repair in April, history of abdominal surgery, history of recurrent pneumonia and collapse of left lung, status post tracheostomy, and hypotension. RECOMMENDATIONS: Decrease Cardizem to 5 mL an hour. Increase free water through the [place] and start Cardizem through the [place]. We will follow with you. Overall, the patient's condition is critical. Long-term prognosis is guarded. We will change Cardizem to verapamil to better control the heart rate because of the chronic obstructive pulmonary disease. We will resume back 40 t.i.d. We will of free fluid through [place] every 6 hours and we will discontinue . Thank you Dr. Du for providing the opportunity in taking care of the patient, Roshan Hale. Gladis Greenfield MD
--- NOTE | 2018-09-08 14:26 | US ---
Date of service: 09/08/2018 HISTORY: r/o GB as asource of fever and r/o obstructive uro COMPARISON: None. TECHNIQUE: Sonographic evaluation of the abdomen. FINDINGS: LIVER: Measures cm. Normal echogenicity of the liver parenchyma. No mass. No intrahepatic bile duct dilatation. GALLBLADDER: Sludge or tiny stones in the gallbladder with gallbladder wall thickening measuring up to 0.45 cm as well as minimal pericholecystic fluid. COMMON BILE DUCT: Measures mm. No stones. No dilatation. PANCREAS: Unremarkable as visualized. No mass. No ductal dilatation. RIGHT KIDNEY: Measures cm. Normal echogenicity. No calculus, mass, or hydronephrosis. LEFT KIDNEY: Measures cm. Normal echogenicity. No calculus, mass, or hydronephrosis. SPLEEN: Normal in size and contour. No mass. AORTA: No aneurysmal dilatation. IVC: Unremarkable. OTHER FINDINGS: Minimal bilateral renal cysts measuring up to 1.2 cm. IMPRESSION: Sludge or tiny stones in the gallbladder with gallbladder wall thickening measuring up to 0.45 cm as well as minimal pericholecystic fluid.
--- NOTE | 2018-09-08 15:13 | PN ---
DATE: 09/08/2018 SUBJECTIVE: This 82-year-old male remains hospitalized status post tracheostomy and triple-lumen catheter change by Dr. Rocael Du from Surgery. The case was reviewed with Dr. Rocael Du earlier this morning. The patient remains in a positive fluid balance and is now manifesting signs of anasarca. Of note, current intake was 1564 with output of 190 for a positive fluid balance of 1374. Also the patient is showing signs of worsening renal insufficiency with creatinine of 1.7 and BUN of 119. The patient is being treated for multiple infections including wound growing VRE as well as Reshma tropicalis and the patient's current antibiotic profile includes daptomycin, meropenem and micafungin. The patient remains in atrial fibrillation rhythm on the residential monitor. PHYSICAL EXAMINATION: VITAL SIGNS Temperature is 98.7, pulse is 97, blood pressure is 96/47 with pulse ox 100% on 40% FIO2. HEAD: Normocephalic, atraumatic. NECK: Supple. HEART: Irregular S1, S2. LUNGS: With rhonchi. ABDOMEN: Soft. EXTREMITIES: Without ulceration. VASCULAR: Legs warm to touch. PSYCHOLOGICAL: Cannot be assessed. NEURO: Sedated. LABORATORY DATA: Current labs show sodium 151, K 4.7, chloride 120, bicarb 24, BUN 119, creatinine 1.7, random glucose 92, calcium 8. Bilirubin 2.8, AST 39, ALT 60 and alk phos 65. CPK 23, low. IMPRESSION: An 82-year-old male with prerenal azotemia and a worsening creatinine in the setting of daptomycin for vancomycin-resistant enterococci and Reshma tropicalis infection of wound and comorbidities of respiratory failure, pneumonia, type 2 diabetes mellitus, chronic hypertension, peptic ulcer disease with gastroesophageal reflux disease, anemia of chronic disease and status post surgeries as previously outlined. PLAN: As discussed with Dr. Rocael Du, intravenous fluids will be adjusted. He will receive Lasix 20 mg intravenously every 12. In an effort to achieve a negative fluid balance, antibiotics will be adjusted by Infectious Disease and all intravenous meds will be mixed in D5W. Maintenance intravenous at present given hypernatremia will consist of D5W. Serial labs will be monitored. The patient's overall prognosis remains poor but hopefully can be transferred to an senior budget analyst acute care if medically stabilized. All of the above was reviewed with Dr. Rocael Du and Win Andujar, lens grinder rough. Sara Ramirez MD [facility] # [id number]
--- NOTE | 2018-09-08 16:04 | CP.PCM.PN ---
Subjective - Date & Time of Evaluation Date of Evaluation: 09/08/18 Time of Evaluation: 15:00 - Subjective Subjective: Trach to vent, sedated Objective - Vital Signs/Intake and Output Vital Signs (last 24 hours): Temp Pulse Resp BP Pulse Ox 98.7 F 108 H 19 94/53 L 100 09/08/18 04:00 09/08/18 11:48 09/06/18 04:00 09/08/18 11:50 09/08/18 11:46 Intake and Output: 09/08/18 09/08/18 06:59 18:59 Intake Total 1604 220 Output Total 190 Balance 1414 220 - Medications Medications: Current Medications Acetylcysteine (Acetylcysteine 20%) 4 ml IH [id number] [facility] Last Admin: 09/04/18 20:05 Dose: Not Given Aspirin (Aspirin Chewable) 81 mg PO DAILY [facility] Last Admin: 09/08/18 11:48 Dose: 81 mg Budesonide (Pulmicort Respules) 0.5 mg IH [id number] [facility] Last Admin: 09/08/18 07:48 Dose: 0.5 mg Clonidine HCl (Catapres Tts1 0.1 Mg/24 Hr) 1 patch TD Q7D@1000 [facility] Last Admin: 09/03/18 15:53 Dose: 1 patch Dextrose (Dextrose 50% Inj) 0 ml IV STAT PRN; Protocol PRN Reason: Hypoglycemia Protocol Famotidine (Pepcid) 20 mg PO DAILY [facility] Last Admin: 09/08/18 11:48 Dose: 20 mg Furosemide (Lasix) 20 mg IV Q12H [facility] Last Admin: 09/08/18 11:50 Dose: 20 mg Heparin Sodium (Porcine) (Heparin) 5,000 units SC Q8 [facility]; Protocol NOREPINEPHRINE BIT/0.9 % NACL (Levophed 4 Mg/ 250 Ml Ns Premixed) 4 mg in 250 mls @ 15 mls/hr IV .[id number] PRN; Protocol PRN Reason: TITRATE PER MD ORDER Last Titration: 09/02/18 18:00 Dose: 0 mcg/min, 0 mls/hr Propofol (Diprivan) 1,000 mg in 100 mls @ 1.757 mls/hr IV .Q24H PRN; Protocol PRN Reason: TITRATE PER MD ORDER Last Titration: 09/08/18 09:00 Dose: 0 mcg/kg/min, 0 mls/hr Meropenem (Merrem Iv 1 Gm Premix) 1 gm in 50 mls @ 100 mls/hr IVPB Q8 [facility]; Protocol Stop: 09/11/18 09:09 Last Admin: 09/08/18 05:45 Dose: 100 mls/hr diltiaZEM IVPB 100mg in NS (Cardizem 100mg In Ns) 100 mls @ 10 mls/hr IV .Q10H PRN; Protocol PRN Reason: TITRATE PER MD ORDER Last Titration: 09/08/18 09:45 Dose: 0 mg/hr, 0 mls/hr Dextrose (Dextrose 5% In Water 1000 Ml) 1,000 mls @ 0 mls/hr IV .Q0M PRN; Protocol PRN Reason: Hypoglycemia Protocol Last Admin: 09/08/18 10:00 Dose: 100 mls/hr Daptomycin 610 mg/ Sodium (Chloride) 100 mls @ 200 mls/hr IV Q24H [facility] Stop: 09/13/18 13:16 Last Admin: 09/07/18 13:32 Dose: 200 mls/hr Acetaminophen (Ofirmev) 1,000 mg in 100 mls @ 400 mls/hr IVPB Q6H PRN PRN Reason: Temperature Stop: 09/08/18 21:46 Last Admin: 09/07/18 11:53 Dose: 400 mls/hr Dextrose (Dextrose 5% In Water) 100 mls @ 100 mls/hr IV .Q1H [facility] Insulin Human Regular (Humulin R Low) 0 units SC Q6 [facility]; Protocol Last Admin: 09/08/18 06:56 Dose: Not Given Levalbuterol HCl (Xopenex) 0.63 mg IH [id number] [facility] Last Admin: 09/08/18 13:18 Dose: 0.63 mg Metoprolol Tartrate (Lopressor) 50 mg PO BRKDIN [facility] Last Admin: 09/08/18 11:48 Dose: 50 mg Prednisone (Prednisone Tab) 10 mg PO DAILY [facility] Last Admin: 09/08/18 13:28 Dose: 10 mg Verapamil HCl (Verapamil Inj) 2.5 mg IVP Q6H PRN PRN Reason: for heart rate >130 Verapamil HCl (Calan Tab) 40 mg PO TID [facility] Last Admin: 09/08/18 11:39 Dose: 40 mg - Labs Labs: 09/08/18 06:00 09/08/18 06:00 PT 15.1 SECONDS (9.4-12.5) H 09/06/18 05:01 INR 1.31 09/06/18 05:01 APTT 31.7 Seconds (25.1-36.5) 09/06/18 05:01 - Constitutional Appears: Cachectic, Chronically Ill - Eye Exam Eye Exam: PERRL - ENT Exam ENT Exam: Mucous Membranes Moist - Respiratory Exam Respiratory Exam: Decreased Breath Sounds - GI/Abdominal Exam GI & Abdominal Exam: Soft - Extremities Exam Extremities Exam: Normal Capillary Refill, Pedal Edema - Neurological Exam Neurological Exam: Altered - Skin Skin Exam: Dry, Pallor Assessment and Plan - Assessment and Plan (Free Text) Assessment: 82 year old male with history of colon cancer, HTN, DM who is admitted with sepsis, mucous plug>respiratory failure s/p intubation now trach to vent, anemia. Patient's son Abelardo Thao and I met to initiate a POLST Directive. POLST directive explained in detail, questions answered. In accordance with patients wishes, patient to have CPR/intubation/mechanical ventilation. Also in accordance with the patient's wishes,directive states he does not want life prolonging measures to continue if he is terminal or in a vegetative state. Mr Thao reviewed document and is in agreement with orders as indicated in POLST Directive. Time spent in advance care panning conversation, 20 minutes Plan: Advance care planning
--- NOTE | 2018-09-08 16:20 | US ---
HISTORY: Leg pain and swelling. Evaluate for DVT PHYSICIAN(S): Bill Eduardo MD. TECHNIQUE: Duplex sonography and color-flow Doppler with graded compression were used to evaluate the deep venous systems of both lower extremities. The exam is somewhat limited by edema FINDINGS: The visualized deep venous systems of both lower extremities are sonographically normal and compressible. Normal wave forms and augmentation are seen. There is no sonographic evidence for deep venous thrombosis in the visualized segments of both lower extremities. IMPRESSION: No sonographic evidence for deep venous thrombosis in the visualized segments of both lower extremities.
[2018-09-08 17:31] LABS: CALCIUM 7.9 mg/dL (8.4-10.5)
[2018-09-08 17:57] LABS: ARTERIAL BLOOD GAS HCO3 20.6 mmol/L (21-28); ARTERIAL BLOOD GAS O2 SAT 100.1 % (95-98); ARTERIAL BLOOD GAS PCO2 71 mm/Hg (35-45); ARTERIAL BLOOD GAS TCO2 22.8 mmol.L (22-28)
[2018-09-08] MEDS: Vancomycin 25 MG/ML PO SCH ×2 (18:00→21:00)
[2018-09-08 18:18] LABS: HEMOGLOBIN 12.3 g/dL (14.0-18.0); MEAN CELL VOLUME 100.2 fl (80.0-105.0); MEAN CORPUSCULAR HEMOGLOBIN 30.7 pg (25.0-35.0); MEAN CORPUSCULAR HGB CONC 30.6 g/dl (31.0-37.0); MEAN PLATELET VOLUME 11.4 fl (7.0-11.0); RBC 4.01 10^6/uL (3.5-6.1); WHITE BLOOD COUNT 24.1 10^3/uL (4.5-11.0)
--- NOTE | 2018-09-08 18:19 | PN ---
DATE: 09/08/2018 SUBJECTIVE: The patient is an 82-year-old, seen and examined, remains on vent, had tracheostomy done yesterday, remains . PHYSICAL EXAMINATION: VITAL SIGNS: He is afebrile. Pulse 108, respirations 20, blood pressure 95/53. LUNGS: Bilateral fair airflow. No rhonchi or crackle. HEART: S1 and S2 audible. ABDOMEN: Soft. Colostomy in place. RUSSELL drainage draining light yellow liquid. EXTREMITIES: Bilateral leg, no edema. LABORATORY DATA: WBC is 15.7, hemoglobin 11, hematocrit 36.9, platelets 110. Chemistries: Sodium 151, potassium 4.7, chloride 120, CO2 of 24, BUN 119, creatinine 1.7, blood sugar of 91. ASSESSMENT: 1. Status post tracheostomy. 2. Respiratory failure. 3. Sepsis. 4. Status post right hemicolectomy. 5. History of seizure disorder. 6. Chronic atrial fibrillation. 7. Thrombocytopenia. 8. Idiopathic thrombocytopenic purpura. 9. Hypernatremia. PLAN: We will continue the patient on current antibiotics. Nephrology is following the fluid balance and ID is monitoring antibiotics . Tri Fleming MD
[2018-09-08 18:39] LABS: ARTERIAL BLOOD GAS PH 7.07 (7.35-7.45)
[2018-09-08] MEDS: NOREPINEPHRINE BIT/0.9 % NACL 4 MG/250 ML BAG IV SCH (18:40)
[2018-09-08] MEDS ORDERED: Dextrose 50% SYRINGE Inj (50 ml) IVP STA ×2 (18:43→18:44)
[2018-09-08] MEDS ORDERED: Insulin Regular 1 UNITS/0.01 ML ML IVP STA (18:45)
[2018-09-08] MEDS: Vasopressin 20 UNITS in Dextrose 5% In Water 100 ML IV SCH (19:10)
[2018-09-08] MEDS: Albumin Human 5% (12.5 gm/250 ml) IV SCH ×2 (19:10→20:18)
[2018-09-08 21:17] LABS: ARTERIAL BLOOD GAS HCO3 17.9 mmol/L (21-28); ARTERIAL BLOOD GAS O2 SAT 100.1 % (95-98); ARTERIAL BLOOD GAS PCO2 38 mm/Hg (35-45); ARTERIAL BLOOD GAS PH 7.28 (7.35-7.45); ARTERIAL BLOOD GAS TCO2 19.1 mmol.L (22-28)
[2018-09-09] MEDS: Levalbuterol 0.63 MG/3 ML Inhal Soln UD IH SCH ×3 (01:17→19:35)
[2018-09-09] MEDS: Insulin Reg-LOW-Coverage SC SCH ×5 (01:28→18:40)
--- NOTE | 2018-09-09 02:20 | PN ---
DATE: 09/08/2018 SUBJECTIVE: The patient is 1-day post tracheostomy removal of his both central lines and insertion of a new central line and still remains febrile. Early in the morning he developed 100.2 degrees temperature and was given Tylenol and cultures are still pending from the presumptive central lines. His chest x-ray appears as good as it has ever been and his lung appears clear at this point. There are signs that there is fluid overload and he is in a passive congestive state with massive edema and anasarca with fluid draining from his abdominal drain. His laboratory demonstrates a sodium of 150 and a chloride of 120. The hemoglobin remains in the 10 range and his white count is 12.9. His pulse was in the 105-110 range and he is on a Cardizem drip and blood pressure remained approximately 100-120 at this point. The patient was taken off the Diprivan and will be reevaluated over the next several hours. The sodium and chloride will be addressed by changing the normal saline to a dextrose 5% solution and repeating his electrolytes and attempting to diurese him. By mid morning the laundrette owner (Dr. Greer Andujar) contacted me and felt that the patient was optimum and able to be transferred to an LTACH facility. I felt that the patient's medical status was unsafe for transfer by ambulance to any facility and his electrolytes and his general condition should be improved and we will readdress the issue in the morning. By 3 o'clock in the afternoon the patient's family had arrived from [place] and were inquiring about his condition and if he could be transferred. Dr. Andujar repeated his thought that the patient was optimum today for a transfer and I inquired if he had spoken to any of the consultants including Pulmonary, Nephrology, or Cardiology, and he had not obtained any further laboratory data on this patient's very abnormal electrolytes. The patient's son, who acts as the proxy for the family and is the power of deputy commonwealth's attorney, has requested that we have unanimity or consensus between all the doctors in the case that the patient is safe for transfer and Dr. Andujar understood this and will work with the other consulting physicians on the case. Later in the day and it is unclear why the patient was replaced back on Diprivan and is now on two pressor agents maintaining blood pressure approximately of 100-110 systolic. It is clear that this patient is still septic and the etiology is unclear. The cultures are still pending and the catheters have been removed and replaced with new ones. At this point in time the patient does not appear to be a candidate for transfer or to be in anywhere safe for stable move to any other facility. We hope that by morning we will have more information and be able to address the concerns of the laundrette owner at that time but at this point now the patient remains extremely critical. This dictation will be electronically signed without being read. Rocael Du MD
[2018-09-09 04:05] LABS: VENOUS BLOOD GAS BASE EXCESS -5.9 mmol/L (0.0-2.0); VENOUS BLOOD GAS PO2 43 mm/Hg (30-55)
[2018-09-09] MEDS: Vasopressin 20 UNITS in Dextrose 5% In Water 100 ML IV SCH (05:31)
[2018-09-09 05:59] LABS: ARTERIAL BLOOD GAS HCO3 18.9 mmol/L (21-28); ARTERIAL BLOOD GAS HEMOGLOBIN 9.5 g/dL (11.7-17.4); ARTERIAL BLOOD GAS O2 CAPACITY 13.1 mL/dl (16-24); ARTERIAL BLOOD GAS O2 CONTENT 13.1 ML/dl (15-23); ARTERIAL BLOOD GAS O2 SAT 99.9 % (95-98); ARTERIAL BLOOD GAS PCO2 35 mm/Hg (35-45); ARTERIAL BLOOD GAS PH 7.34 (7.35-7.45)
[2018-09-09 07:18] LABS: MEAN CORPUSCULAR HEMOGLOBIN 30.2 pg (25.0-35.0); MEAN CORPUSCULAR HGB CONC 31.1 g/dl (31.0-37.0); RBC 3.25 10^6/uL (3.5-6.1); RED CELL DISTRIBUTION WIDTH 20.2 % (11.5-14.5); WHITE BLOOD COUNT 15.1 10^3/uL (4.5-11.0)
[2018-09-09] MEDS: Budesonide 0.5 mg/2 ml Inhal Susp UD IH SCH ×2 (07:20→19:36)
--- NOTE | 2018-09-09 07:21 | RAD ---
Date of service: 09/09/2018 HISTORY: f/u COMPARISON: Chest radiographs 09/08/2018. FINDINGS: LUNGS: Tracheostomy tube and right central venous line are not significantly changed in position. Feeding tube appears to been advanced further into the stomach. Atelectasis or infiltrate is unchanged at the left base with none definitively shown at the right. Skin folds are seen the inferior right lung zone. PLEURA: Borderline right pleural effusion. Left pleural effusion potentially increased but remaining mild. CARDIOVASCULAR: Calcific atherosclerotic changes are seen related to the thoracic aorta. Stable cardiac silhouette. No definite pulmonary vascular congestion. OSSEOUS STRUCTURES: No significant abnormalities. VISUALIZED UPPER ABDOMEN: Normal. OTHER FINDINGS: None. IMPRESSION: Adjustment of feeding tube further into the stomach with ET tube and right central venous line unchanged in position. Limited left pleural effusion slightly increased. Opacity in the retrocardiac left base unchanged with borderline right pleural effusion evident.
[2018-09-09 07:25] LABS: HEMOGLOBIN 9.8 g/dL (14.0-18.0)
[2018-09-09 07:31] LABS: ALB/GLOB RATIO 1.1 (1.1-1.8); ALBUMIN 2.1 g/dL (3.0-4.8); ALT/SGPT 53 U/L (7-56); AST/SGOT 41 U/L (17-59); BLOOD UREA NITROGEN > 120 mg/dL (7-21); CALCIUM 7.5 mg/dL (8.4-10.5); GFR NON-AFRICAN AMERICAN 34
[2018-09-09] MEDS: NOREPINEPHRINE BIT/0.9 % NACL 4 MG/250 ML BAG IV SCH ×2 (07:39→21:32)
--- NOTE | 2018-09-09 07:48 | CP.PCM.PN ---
<IsaíasHarrison - Last Filed: 09/09/18 07:45> Subjective - Date & Time of Evaluation Date of Evaluation: 09/09/18 Time of Evaluation: 07:45 - Subjective Subjective: General Surgery Progress Note for Dr. Du 82M seen and evaluated at bedside this morning. No acute events overnight. Patient sedated and trach in place. Currently on Levophed and vasopressin. ROS unobtainable. Objective - Vital Signs/Intake and Output Vital Signs (last 24 hours): Temp Pulse Resp BP Pulse Ox 99.8 F H 94 H 20 133/55 L 100 09/09/18 04:00 09/09/18 02:00 09/09/18 07:30 09/09/18 05:31 09/09/18 07:30 Intake and Output: 09/09/18 09/09/18 06:59 18:59 Intake Total 250 Balance 250 - Medications Medications: Current Medications Acetylcysteine (Acetylcysteine 20%) 4 ml IH [id number] [facility] Last Admin: 09/04/18 20:05 Dose: Not Given Aspirin (Aspirin Chewable) 81 mg PO DAILY [facility] Last Admin: 09/08/18 11:48 Dose: 81 mg Budesonide (Pulmicort Respules) 0.5 mg IH [id number] [facility] Last Admin: 09/09/18 07:20 Dose: 0.5 mg Dextrose (Dextrose 50% Inj) 0 ml IV STAT PRN; Protocol PRN Reason: Hypoglycemia Protocol Famotidine (Pepcid) 20 mg PO DAILY [facility] Last Admin: 09/08/18 11:48 Dose: 20 mg Heparin Sodium (Porcine) (Heparin) 5,000 units SC Q8 KD; Protocol Last Admin: 09/09/18 05:30 Dose: 5,000 units Hydrocortisone Sodium Succinate (Solu-Cortef) 50 mg IVP Q8 [facility] Last Admin: 09/08/18 21:00 Dose: 50 mg NOREPINEPHRINE BIT/0.9 % NACL (Levophed 4 Mg/ 250 Ml Ns Premixed) 4 mg in 250 mls @ 15 mls/hr IV .[id number] PRN; Protocol PRN Reason: TITRATE PER MD ORDER Last Titration: 09/02/18 18:00 Dose: 0 mcg/min, 0 mls/hr Propofol (Diprivan) 1,000 mg in 100 mls @ 1.757 mls/hr IV .Q24H PRN; Protocol PRN Reason: TITRATE PER MD ORDER Last Titration: 09/08/18 09:00 Dose: 0 mcg/kg/min, 0 mls/hr Meropenem (Merrem Iv 1 Gm Premix) 1 gm in 50 mls @ 100 mls/hr IVPB Q8 KD; Protocol Stop: 09/11/18 09:09 Last Admin: 09/08/18 22:00 Dose: 100 mls/hr Dextrose (Dextrose 5% In Water 1000 Ml) 1,000 mls @ 0 mls/hr IV .Q0M PRN; Protocol PRN Reason: Hypoglycemia Protocol Last Admin: 09/08/18 10:00 Dose: 100 mls/hr Daptomycin 610 mg/ Sodium (Chloride) 100 mls @ 200 mls/hr IV Q24H KD Stop: 09/13/18 13:16 Last Admin: 09/08/18 17:00 Dose: 200 mls/hr NOREPINEPHRINE BIT/0.9 % NACL (Levophed 4 Mg/ 250 Ml Ns Premixed) 4 mg in 250 mls @ 15 mls/hr IV .[id number] KD; Protocol Last Admin: 09/09/18 07:39 Dose: 5 mcg/min, 18.75 mls/hr Vasopressin 20 units/ Dextrose 101 mls @ 9.09 mls/hr IV .Q11H7M KD; Protocol Last Admin: 09/09/18 05:31 Dose: 9.09 mls/hr Dextrose (Dextrose 5% In Water 1000 Ml) 1,000 mls @ 100 mls/hr IV .Q10H KD Last Admin: 09/09/18 01:24 Dose: 100 mls/hr Insulin Human Regular (Humulin R Low) 0 units SC Q6 KD; Protocol Last Admin: 09/09/18 05:30 Dose: 4 units Levalbuterol HCl (Xopenex) 0.63 mg IH [id number] KD Last Admin: 09/09/18 01:17 Dose: 0.63 mg Vancomycin HCl (Vancocin 25 Mg/Ml (Oral Use)) 250 mg PO QID KD; Protocol Last Admin: 09/08/18 21:00 Dose: 250 mg Verapamil HCl (Verapamil Inj) 2.5 mg IVP Q6H PRN PRN Reason: for heart rate >130 Verapamil HCl (Calan Tab) 40 mg PO Q8H [facility] Last Admin: 09/09/18 04:32 Dose: Not Given - Labs Labs: 09/09/18 07:00 09/09/18 07:00 PT 15.1 SECONDS (9.4-12.5) H 09/06/18 05:01 INR 1.31 09/06/18 05:01 APTT 31.7 Seconds (25.1-36.5) 09/06/18 05:01 - Constitutional Appears: Cachectic, Chronically Ill - Head Exam Head Exam: ATRAUMATIC, NORMAL INSPECTION, NORMOCEPHALIC - Eye Exam Eye Exam: absent: EOMI - ENT Exam ENT Exam: Mucous Membranes Dry - Neck Exam Additional comments: trach site c/d/i - Respiratory Exam Respiratory Exam: NORMAL BREATHING PATTERN (mechanical ventilation) - GI/Abdominal Exam GI & Abdominal Exam: Soft. absent: Distended Additional comments: ostomy pink, patient, w/ output casey w/ serous fluid Assessment and Plan - Assessment and Plan (Free Text) Assessment: 82M w/ ventilatory dependent respiratory failure s/p tracheostomy POD2 s/p ex lap w/ ileal perforation w/ resolved VRE+ peritonitis Plan: Continue tube feeds Vent weaning per ICU IV Abx per ID Monitor drain and ostomy output Monitor trach site Continue AM labs Replete electrolytes as needed Further recommendations per Dr. Florian Metz PGY1 <Rocael Du - Last Filed: 09/09/18 11:21> Objective - Vital Signs/Intake and Output Vital Signs (last 24 hours): Temp Pulse Resp BP Pulse Ox 99.8 F H 109 H 20 112/48 L 100 09/09/18 04:00 09/09/18 09:55 09/09/18 07:30 09/09/18 09:55 09/09/18 07:30 Intake and Output: 09/09/18 09/09/18 06:59 18:59 Intake Total 5132 250 Output Total 900 Balance 4232 250 - Medications Medications: Current Medications Acetylcysteine (Acetylcysteine 20%) 4 ml IH [id number] [facility] Last Admin: 09/04/18 20:05 Dose: Not Given Aspirin (Aspirin Chewable) 81 mg PO DAILY [facility] Last Admin: 09/09/18 09:56 Dose: 81 mg Budesonide (Pulmicort Respules) 0.5 mg IH [id number] [facility] Last Admin: 09/09/18 07:20 Dose: 0.5 mg Dextrose (Dextrose 50% Inj) 0 ml IV STAT PRN; Protocol PRN Reason: Hypoglycemia Protocol Famotidine (Pepcid) 20 mg PO DAILY [facility] Last Admin: 09/09/18 09:56 Dose: 20 mg Heparin Sodium (Porcine) (Heparin) 5,000 units SC Q8 KD; Protocol Last Admin: 09/09/18 05:30 Dose: 5,000 units Hydrocortisone Sodium Succinate (Solu-Cortef) 50 mg IVP Q12H [facility] Last Admin: 09/09/18 09:56 Dose: 50 mg Propofol (Diprivan) 1,000 mg in 100 mls @ 1.757 mls/hr IV .Q24H PRN; Protocol PRN Reason: TITRATE PER MD ORDER Last Titration: 09/08/18 09:00 Dose: 0 mcg/kg/min, 0 mls/hr Meropenem (Merrem Iv 1 Gm Premix) 1 gm in 50 mls @ 100 mls/hr IVPB Q8 KD; Protocol Stop: 09/11/18 09:09 Last Admin: 09/09/18 08:00 Dose: 100 mls/hr Dextrose (Dextrose 5% In Water 1000 Ml) 1,000 mls @ 0 mls/hr IV .Q0M PRN; Protocol PRN Reason: Hypoglycemia Protocol Last Admin: 09/08/18 10:00 Dose: 100 mls/hr Daptomycin 610 mg/ Sodium (Chloride) 100 mls @ 200 mls/hr IV Q24H KD Stop: 09/13/18 13:16 Last Admin: 09/08/18 17:00 Dose: 200 mls/hr NOREPINEPHRINE BIT/0.9 % NACL (Levophed 4 Mg/ 250 Ml Ns Premixed) 4 mg in 250 mls @ 15 mls/hr IV .[id number] [facility]; Protocol Last Admin: 09/09/18 07:39 Dose: 5 mcg/min, 18.75 mls/hr Vasopressin 20 units/ Dextrose 101 mls @ 9.09 mls/hr IV .Q11H7M [facility]; Protocol Last Admin: 09/09/18 05:31 Dose: 9.09 mls/hr Dextrose (Dextrose 5% In Water 1000 Ml) 1,000 mls @ 100 mls/hr IV .Q10H [facility] Last Admin: 09/09/18 11:13 Dose: 100 mls/hr Insulin Human Regular (Humulin R Low) 0 units SC Q6 KD; Protocol Last Admin: 09/09/18 05:30 Dose: 4 units Levalbuterol HCl (Xopenex) 0.63 mg IH [id number] [facility] Last Admin: 09/09/18 01:17 Dose: 0.63 mg Vancomycin HCl (Vancocin 25 Mg/Ml (Oral Use)) 250 mg PO QID [facility]; Protocol Last Admin: 09/09/18 10:15 Dose: 250 mg Verapamil HCl (Verapamil Inj) 2.5 mg IVP Q6H PRN PRN Reason: for heart rate >130 Verapamil HCl (Calan Tab) 40 mg PO Q8H [facility] Last Admin: 09/09/18 09:55 Dose: 40 mg - Labs Labs: 09/09/18 07:00 09/09/18 07:00 PT 15.1 SECONDS (9.4-12.5) H 09/06/18 05:01 INR 1.31 09/06/18 05:01 APTT 31.7 Seconds (25.1-36.5) 09/06/18 05:01 Assessment and Plan - Assessment and Plan (Free Text) Plan: Na 148/Cl 118/On vasopressor-Unstable to transfer Dr James duron 3xdialysis-family ? 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
[2018-09-09] MEDS: Meropenem IV 1 gm in NS 1 GM/50 ML BAG IVPB SCH ×2 (08:00→17:12)
--- NOTE | 2018-09-09 08:20 | PN ---
DATE: 09/09/2018 SUBJECTIVE: The patient remains in the ICU. He is currently on the ventilator and sedated. OBJECTIVE: VITAL SIGNS: Temperature is 99.8, pulse is 92, respiratory rate 20/20, blood pressure 133/55. HEENT: Normocephalic. Positive tracheostomy. NECK: No JVD. CARDIOVASCULAR: Systolic ejection murmur at the lower left sternal border. Questionable S3 gallop. LUNGS: Decreased breath sounds at the bases (much improved overall). Minimal rhonchi. No wheezing. EXTREMITIES: Mild edema. No cyanosis, no clubbing. GI: Abdomen is soft and nondistended. Abdomen is postoperative. SKIN: No acute rash. NEUROLOGIC: Limited at the present time. PERTINENT LABORATORY DATA: Chest x-ray was done this morning and reviewed. It is a poor, rotated film. There is a probable small left pleural effusion with adjacent consolidation noted. There are no other significant abnormalities. Arterial blood gas was ordered for this morning - not done yet. IMPRESSION: 1. Recurrent left lung atelectasis. 2. Congestive heart failure. 3. Atrial fibrillation. 4. Intra-abdominal perforation. 5. Status post right hemicolectomy. 6. Advanced chronic obstructive pulmonary disease. 7. Anemia, thrombocytopenia. PLAN: The patient remains in the ICU. He remains sedated and on the ventilator. I did discuss the case with the night nurse at length. I have also discussed the case with the medical case manager at length. The patient's last shift was fairly uneventful. I did review the chest x-ray from this morning. Findings are noted above. There are no new significant abnormalities noted. Again, there is a probable small left pleural effusion with adjacent consolidation. I will order another x-ray for tomorrow - for comparison. As above, we are awaiting an arterial blood gas to be done this morning. However, I did review the arterial blood gas done yesterday on CPAP and pressure support. Unfortunately, there was a severe respiratory acidosis noted. The patient was then placed back on PRVC. Hopefully, there will be additional weaning trials today, but I will discuss this with the team later this morning. On physical exam, there is much less bronchospasm noted. I will continue the current nebulizer treatments for now. The patient has been placed on intravenous Solu-Cortef by the ICU team. Inputs by Surgery, Internal Medicine, Infectious Disease are also noted. Repeat a.m. labs are pending. The patient remains critically ill at this point in time. His overall status/prognosis remains very guarded at best/poor. I will discuss the above with the entire ICU team in the next few moments. I will discuss the above the attending physician later this morning. Rosalio Blevins MD MTDD
--- NOTE | 2018-09-09 08:21 | PN ---
DATE: 09/09/2018 SUBJECTIVE: The patient is in bed in no acute distress. He has had some fever. He is trached. He is on a vent. PHYSICAL EXAMINATION: VITAL SIGNS: Temperature 100.7; blood pressure 130/50; respiratory rate, is on the vent; heart rate 94. HEENT: Examination of HEENT reveals an NG tube in place. The trach is present. NECK: Supple. LUNGS: Decreased breath sounds. HEART: Normal S1, S2. ABDOMEN: Soft, nontender. No organomegaly. No rebound. No guarding. No masses. LABORATORY DATA: White count is up to 24,000, hemoglobin of 12, platelets of 149. BUN of 133, creatinine of 1.8. Urinalysis is noted. Serology is noted. Microbiology reveals that the sputum culture is no growth. Blood cultures are no growth. Urine cultures are also no growth. The review of orders reveals the patient to be on daptomycin and meropenem. The patient is also on Solu-Cortef, p.o. vancomycin. ASSESSMENT AND PLAN: This is an 82-year-old male seen earlier today in [facility], bed 1, with a history of rectal adenocarcinoma status post hemicolectomy, admitted to the ICU, ventilator dependent respiratory failure with severe sepsis with respiratory failure status post exploratory lap and resection of terminal ileum, primary anastomosis and trached, on a vent and with a history of VRE and Reshma tropicalis and now with healthcare-associated pneumonia in face of congestive heart failure, coronary artery disease, atrial fibrillation and on daptomycin and meropenem. Intermittent dose of vancomycin. The patient is scheduled for CAT scan of the abdomen and pelvis which is pending. This morning's chest x-ray is pending and we will follow closely with you. The patient had tubular adenoma on the pathology. Overall prognosis quite poor. Jason Garvin MD
--- NOTE | 2018-09-09 09:04 | CT ---
Date of service: 09/09/2018 PROCEDURE: CT Abdomen and Pelvis without intravenous contrast HISTORY: intra-abdominal abscess COMPARISON: CT 08/10/2018 TECHNIQUE: Without contrast.. Contrast dose: Radiation dose: Total exam DLP = 713.71 mGy-cm. This CT exam was performed using one or more of the following dose reduction techniques: Automated exposure control, adjustment of the mA and/or kV according to patient size, and/or use of iterative reconstruction technique. FINDINGS: LOWER THORAX: Heavily calcified coronary arteries. Small pleural effusions and bibasilar atelectasis. LIVER: Unremarkable. No gross lesion or ductal dilatation. GALLBLADDER AND BILE DUCTS: Unremarkable. PANCREAS: Unremarkable. No gross lesion or ductal dilatation. SPLEEN: Unremarkable. ADRENALS: Unremarkable. No mass. KIDNEYS AND URETERS: Bilateral nephrolithiasis VASCULATURE: Aortic stent graft in place calcified aorta and iliacs BOWEL: Unremarkable. No obstruction. No gross mural thickening. APPENDIX: Resected PERITONEUM: A drain is still seen in place in the pelvis. There is a small amount of ascites along the left pericolic gutter. There is no evidence of abscess. LYMPH NODES: Unremarkable. No enlarged lymph nodes. BLADDER: Unremarkable. REPRODUCTIVE: Calcifications within the prostate BONES: No acute fracture. OTHER FINDINGS: The report concurs with the preliminary [facility] report IMPRESSION: No evidence of intra-abdominal abscess
[2018-09-09] MEDS: Vancomycin 25 MG/ML PO SCH ×4 (10:15→22:00)
--- NOTE | 2018-09-09 10:17 | PN ---
DATE: 09/09/2018 SUBJECTIVE: The patient is seen and examined at bedside. He appears a bit more awake and following commands. He is off of sedation for more than 12 hours. He is on pressure support 5/5 with FIO2 40%. His rapid shallow breathing index is 76. He is on 2 mcg per minute of Levophed. Vasopressin was stopped. We are tapering down his stress-dose steroids. CAT scan yesterday revealed enteritis. Even prior to CAT scan results, the patient was started on vancomycin p.o. and the first dose was given 9 p.m. yesterday. He also was switched from normal saline to D5W with substantial improvement in his electrolyte profile. He tolerates enteral nutrition well. There is some fecal matter in the ostomy bag and ostomy looks pink and viable. The patient also moves all extremities spontaneously. PHYSICAL EXAMINATION: VITAL SIGNS: Heart rate 116, blood pressure 104/44, oxygen saturation 100% on 40% FIO2, end-tidal CO2 of 35, respiratory rate 29. The patient is on enteral nutrition at 50 mL/hour. The patient on D5W at 100 mL/hour. T-max 100.7. ENT: Head and neck atraumatic. The patient is intubated. Dobhoff tube is in the right nostril. HEART: Irregular rate and rhythm. S1, S2 distant. LUNGS: Clear to auscultation bilaterally. ABDOMEN: Soft, nontender, nondistended. Ostomy and [address] drain is in place. Ostomy is pink and viable. There is straw-colored fluid coming out from RUSSELL drain. NEURO: The patient moves all extremities spontaneously. MUSCULOSKELETAL: Trace bilateral pedal and ankle edema seen. SKIN: Moist. PSYCH: The patient is more alert and awake and following commands. LABORATORY DATA: WBC 15.1, down from 24.1, hemoglobin 9.8, platelet count 99. Sodium 148, down from 151, potassium 4.5, chloride 118, BUN more than 120, creatinine 1.9, glucose 257, magnesium 2.7, phosphorus 7.6. MEDICATIONS: Acetylcysteine inhaled, aspirin, Pulmicort, daptomycin, D5 100 mL/hour. Pepcid 20 mg p.o. daily, heparin, hydrocortisone 50 mg IV every 12 hours, Xopenex, meropenem, norepinephrine, vancomycin p.o., verapamil p.r.n. and verapamil 40 mg p.o. every 8 hours. Vasopressin is off. CAT scan of the abdomen and pelvis showed mild bilateral pleural effusion, mildly increased passive atelectasis, airspace disease of the lower lobes, moderate cardiomegaly unchanged, non`obstructive stones in the bladder. Interval appearance of diffuse thickening of the small bowels in the left upper and mid quadrants, probably uncomplicated. Enteritis without perforation or pneumatosis intestinalis. Enteric feeding tube in good position. ASSESSMENT AND PLAN: This is an 82-year-old gentleman, status post tracheotomy for aggressive pulmonary toilet, whose hospital course complicated by enteritis which may or may not represent Clostridium difficile infection. The patient was started on p.o. vancomycin with subsequent decrease in leukocytosis. He was also able to wean Levophed and vasopressin down to 2 mcg/minute and vasopressin off. We are actively tapering down stress-dose steroids. The workup for other potential sources of low grade fever the patient had on the previous several days elaborated in my previous note. The patient failed pressure support trial again and had to be put on back to PRBC. He is off of sedation for more than 12 hours and as soon as the patient is comfortable, we will continue with sedation vacation. I will continue with daily weaning trials. I will continue with head of bed elevated more than 35 degrees, low to intermediate tidal volume and maintaining plateau pressure less than 30 cm of water. Oral hygiene, head of bed elevated more than 35 degrees. The patient's creatinine started to plateau at 1.9. However, BUN is more than 120. No beata blood coming out of ostomy, however, some drop in hemoglobin from 12.3-9.28 is concerning. I do believe that this is rather dilutional, but with BUN rising disproportionately higher than creatinine, possibility of GI bleed will be addressed with GI service and surgical service as well. I will touch base with Renal service whether or not renal replacement therapy would be indicated in this case. The patient did have low grade fever last night as well. The patient is on broad-spectrum antibiotics and p.o. vancomycin. Stool for Clostridium difficile was sent as well. I will continue with heparin subcutaneously for deep venous thrombosis prophylaxis as risks of deep venous thrombosis in this debilitated and intubated on mechanical ventilation is much higher than risk of bleeding even with some hemoglobin drop without obvious signs of bleeding. I will continue to target euvolemia, euglycemia, normothermia and oxygen saturation more than 90%. We will continue with deep venous thrombosis and gastrointestinal prophylaxis. Ari Andujar MD
[2018-09-09 11:02] LABS: VENOUS BLOOD GAS BASE EXCESS -4.8 mmol/L (0.0-2.0); VENOUS BLOOD GAS PO2 42 mm/Hg (30-55); VENOUS BLOOD PH 7.32 (7.32-7.43)
--- NOTE | 2018-09-09 13:32 | CP.CCUPN ---
<Godfrey Lehman - Last Filed: 09/09/18 14:53> CCU Subjective - Physician Review Subjective (Free Text): Godfrey Lehman, PGY1 ICU Progress Note for Dr. Andujar Patient was seen and examined at bedside this morning. Patient is currently off sedation. Levophed was tapered down since previous encounter. Vasopressin was discontinued. For vent settings, patient is on PRVC 400/20/5/30%. Tried to wean patient off on pressure support yesterday evening, however, patient had severe respiratory acidosis, requiring him to be placed back on PRVC. Patient is more alert, awake, and briefly following commands today. He still has diarrhea in colostomy bag. Tmax 100.7 overnight. BP was noted to be 133/55 prior to interview. Given patient's condition, a ROS was unable to be obtained. Tracheostomy tube, ostomy bag, R-IJ, and anthony are in place. CCU Objective - Vital Signs / Intake & Output Vital Signs (Last 4 hours): Vital Signs Pulse BP 09/09/18 09:55 109 H 112/48 L Intake and Output (Last 8hrs): Intake & Output 09/08/18 09/09/18 09/09/18 22:59 06:59 14:59 Intake Total 2300 5132 250 Output Total 650 900 Balance 1650 4232 250 Weight 64.41 kg Intake: IV 1550 4132 250 0.9 ns 1200 Clinimix 996 Left Upper arm 1500 Right Internal Jugular 1550 436 Tube Feeding 450 700 Other 300 300 Output: Drainage 350 350 Colostomy 200 250 Right Abdomen 150 100 Urine 300 550 Condom 300 550 Other: # Bowel Movements 0 - Physical Exam Head: Positive for: Atraumatic, Normocephalic Pupils: Positive for: Sluggish Extroacular Muscles: Positive for: EOMI Conjunctiva: Positive for: Normal Mouth: Positive for: Moist Mucous Membranes Pharnyx: Positive for: Normal Nose (External): Positive for: Other (NG tube in place) Neck: Positive for: Other (Tracheostomy tube in place). Negative for: JVD, Lymphadenopathy, Bruit Respiratory/Chest: Positive for: Clear to Auscultation. Negative for: Respiratory Distress, Accessory Muscle Use, Wheezes, Rales, Rhonchi Cardiovascular: Positive for: Irregular Rhythm (Afib), Peripheal Pulses Present Abdomen: Positive for: Normal Bowel Sounds, Other ( Colostomy bag in place). Negative for: Tenderness, Distention, Peritoneal Signs, Mass/Organomegaly Genitourinary Male: Positive for: Other (Anthony in place) Upper Extremity: Positive for: NORMAL PULSES. Negative for: Edema Lower Extremity: Positive for: NORMAL PULSES, Other (No pitting edema noted on bilateral low ext. ). Negative for: Edema, CALF TENDERNESS Neurological: Positive for: GCS=15, Speech Normal Skin: Positive for: Warm, Dry, Normal Color Psychiatric: Negative for: Alert, Oriented x 3 - Medications Active Medications: Active Medications Generic Name Dose Route Start Last Admin Trade Name Freq PRN Reason Stop Dose Admin Acetylcysteine 4 ml 09/02/18 08:00 09/04/18 20:05 Acetylcysteine 20% IH Not Given [id number] KD Aspirin 81 mg 09/05/18 11:30 09/09/18 09:56 Aspirin Chewable PO 81 mg DAILY KD Administration Budesonide 0.5 mg 08/13/18 08:00 09/09/18 07:20 Pulmicort Respules IH 0.5 mg [id number] KD Administration Dextrose 0 ml 09/05/18 15:56 Dextrose 50% Inj IV STAT PRN Hypoglycemia Protocol Protocol Famotidine 20 mg 08/21/18 10:00 09/09/18 09:56 Pepcid PO 20 mg DAILY KD Administration Heparin Sodium (Porcine) 5,000 units 09/08/18 14:00 09/09/18 05:30 Heparin SC 5,000 units Q8 KD Administration Protocol Hydrocortisone Sodium Succinate 50 mg 09/09/18 08:45 09/09/18 09:56 Solu-Cortef IVP 50 mg Q12H KD Administration Propofol 1,000 mg in 100 mls @ 1.757 mls/hr 09/02/18 09:00 09/08/18 09:00 Diprivan IV 0 mcg/kg/min .Q24H PRN 0 mls/hr TITRATE PER MD ORDER Titration Protocol 5 MCG/KG/MIN Dextrose 1,000 mls @ 0 mls/hr 09/05/18 15:56 09/08/18 10:00 Dextrose 5% In Water 1000 Ml IV 100 mls/hr .Q0M PRN Administration Hypoglycemia Protocol Protocol Per Protocol NOREPINEPHRINE BIT/0.9 % NACL 4 mg in 250 mls @ 15 mls/hr 09/08/18 18:30 09/09/18 07:39 Levophed 4 Mg/ 250 Ml Ns Premixed IV 5 mcg/min .[id number] KD 18.75 mls/hr Administration Protocol 4 MCG/MIN Vasopressin 20 units/ Dextrose 101 mls @ 9.09 mls/hr 09/08/18 18:45 09/09/18 05:31 IV 9.09 mls/hr .[id number] KD Administration Protocol 0.03 U/MIN Dextrose 1,000 mls @ 100 mls/hr 09/08/18 14:30 09/09/18 11:13 Dextrose 5% In Water 1000 Ml IV 100 mls/hr .Q10H KD Administration Daptomycin 610 mg/ Sodium 100 mls @ 200 mls/hr 09/10/18 13:15 Chloride IV 09/13/18 13:16 Q48H KD Meropenem 1 gm in 50 mls @ 100 mls/hr 09/09/18 18:00 Merrem Iv 1 Gm Premix IVPB 09/11/18 09:09 0600,1800 [facility] Protocol Insulin Human Regular 0 units 09/03/18 12:00 09/09/18 12:48 Humulin R Low SC 2 units Q6 KD Administration Protocol Levalbuterol HCl 0.63 mg 08/18/18 08:00 09/09/18 13:20 Xopenex IH 0.63 mg [id number] KD Administration Vancomycin HCl 250 mg 09/08/18 18:00 09/09/18 10:15 Vancocin 25 Mg/Ml (Oral Use) PO 250 mg QID KD Administration Protocol Verapamil HCl 2.5 mg 08/31/18 09:03 Verapamil Inj IVP Q6H PRN for heart rate >130 Verapamil HCl 40 mg 09/08/18 18:15 09/09/18 09:55 Calan Tab PO 40 mg Q8H KD Administration - Patient Studies Lab Studies: Microbiology Studies 09/07/18 08:16 Gram Stain - Final Sputum Induced Sputum Culture - Final Yeast Species 09/08/18 11:37 C. difficile Antigen & Toxins A,B - Final Stool 09/06/18 12:00 Blood Culture - Preliminary Blood NO GROWTH AFTER 3 DAYS 09/06/18 11:45 Blood Culture - Preliminary Blood NO GROWTH AFTER 3 DAYS 09/06/18 12:24 Catheter Tip Culture - Final Catheter Tip No growth. 09/07/18 20:40 Gram Stain - Final Other: Please Indicate Lab Studies 09/09/18 09/09/18 09/09/18 Range/Units 10:30 07:00 07:00 WBC 15.1 H D (4.5-11.0) 10^3/uL RBC 3.25 L (3.5-6.1) 10^6/uL Hgb 9.8 L D (14.0-18.0) g/dL Hct 31.5 L (42.0-52.0) % MCV 100.0 (80.0-105.0) fl MCH 30.2 (25.0-35.0) pg MCHC 31.1 (31.0-37.0) g/dl RDW 20.2 H (11.5-14.5) % Plt Count 99 L (120.0-450.0) 10^3/uL MPV 11.0 (7.0-11.0) fl pCO2 (35-45) mm/Hg pO2 42 (80-100) mm/Hg HCO3 (21-28) mmol/L ABG pH (7.35-7.45) ABG Total CO2 (22-28) mmol.L ABG O2 Saturation (95-98) % ABG O2 Content (15-23) ML/dl ABG Base Excess (-2.0-3.0) mmol/L ABG Hemoglobin (11.7-17.4) g/dL ABG Carboxyhemoglobin (0.5-1.5) % POC ABG HHb (Measured) (0-5) % ABG Methemoglobin (0.0-3.0) % ABG O2 Capacity (16-24) mL/dl ABG Potassium (3.6-5.2) mmol/L VBG pH 7.32 (7.32-7.43) VBG pCO2 41.0 (40-60) VBG HCO3 21.1 (21-28) mmol/l VBG Total CO2 22.4 (22-28) mmol.L VBG O2 Sat (Calc) 80.1 H (40-65) % VBG Base Excess -4.8 L (0.0-2.0) mmol/L VBG Potassium 4.4 (3.6-5.2) mmol/L Hgb O2 Saturation (95.0-98.0) % Sodium 146.0 148 (132-148) mmol/L Chloride 114.0 H 118 H (98-107) mmol/L Glucose 246 H (75-110) mg/dl Lactate 1.9 (0.7-2.1) mmol/L FiO2 21.0 % PEEP Pressure Support CPAP Potassium 4.5 (3.6-5.0) mmol/L Carbon Dioxide 22 (21-33) mmol/L Anion Gap 13 (10-20) BUN > 120 H* (7-21) mg/dL Creatinine 1.9 H (0.8-1.5) mg/dl Est GFR ( Amer) 41 Est GFR (Non-Af Amer) 34 POC Glucose (mg/dL) (65-110) mg/dL Random Glucose 257 H (70-110) mg/dL Calcium 7.5 L (8.4-10.5) mg/dL Phosphorus 7.6 H (2.5-4.5) mg/dL Magnesium 2.7 H (1.7-2.2) mg/dL Total Bilirubin 2.9 H (0.2-1.3) mg/dL AST 41 (17-59) U/L ALT 53 (7-56) U/L Alkaline Phosphatase 56 (38-126) U/L Total Protein 4.2 L (5.8-8.3) g/dL Albumin 2.1 L (3.0-4.8) g/dL Globulin 2.0 gm/dL Albumin/Globulin Ratio 1.1 (1.1-1.8) Arterial Blood Potassium (3.6-5.2) mmol/L Venous Blood Potassium 4.4 (3.6-5.2) mmol/L Crossmatch 09/09/18 09/09/18 09/09/18 Range/Units 05:35 05:28 03:45 WBC (4.5-11.0) 10^3/uL RBC (3.5-6.1) 10^6/uL Hgb (14.0-18.0) g/dL Hct (42.0-52.0) % MCV (80.0-105.0) fl MCH (25.0-35.0) pg MCHC (31.0-37.0) g/dl RDW (11.5-14.5) % Plt Count (120.0-450.0) 10^3/uL MPV (7.0-11.0) fl pCO2 35 (35-45) mm/Hg pO2 146.0 H 43 (80-100) mm/Hg HCO3 18.9 L (21-28) mmol/L ABG pH 7.34 L (7.35-7.45) ABG Total CO2 20.0 L (22-28) mmol.L ABG O2 Saturation 99.9 H (95-98) % ABG O2 Content 13.1 L (15-23) ML/dl ABG Base Excess -6.2 L (-2.0-3.0) mmol/L ABG Hemoglobin 9.5 L (11.7-17.4) g/dL ABG Carboxyhemoglobin 2.6 H (0.5-1.5) % POC ABG HHb (Measured) 0.1 (0-5) % ABG Methemoglobin 1.2 (0.0-3.0) % ABG O2 Capacity 13.1 L (16-24) mL/dl ABG Potassium (3.6-5.2) mmol/L VBG pH 7.30 L (7.32-7.43) VBG pCO2 41.0 (40-60) VBG HCO3 20.2 L (21-28) mmol/l VBG Total CO2 21.5 L (22-28) mmol.L VBG O2 Sat (Calc) 79.6 H (40-65) % VBG Base Excess -5.9 L (0.0-2.0) mmol/L VBG Potassium 4.5 (3.6-5.2) mmol/L Hgb O2 Saturation 96.1 (95.0-98.0) % Sodium 146.0 (132-148) mmol/L Chloride 115.0 H (98-107) mmol/L Glucose 287 H (75-110) mg/dl Lactate 2.3 H (0.7-2.1) mmol/L FiO2 40.0 21.0 % PEEP Pressure Support CPAP Potassium (3.6-5.0) mmol/L Carbon Dioxide (21-33) mmol/L Anion Gap (10-20) BUN (7-21) mg/dL Creatinine (0.8-1.5) mg/dl Est GFR ( Amer) Est GFR (Non-Af Amer) POC Glucose (mg/dL) 321 H (65-110) mg/dL Random Glucose (70-110) mg/dL Calcium (8.4-10.5) mg/dL Phosphorus (2.5-4.5) mg/dL Magnesium (1.7-2.2) mg/dL Total Bilirubin (0.2-1.3) mg/dL AST (17-59) U/L ALT (7-56) U/L Alkaline Phosphatase (38-126) U/L Total Protein (5.8-8.3) g/dL Albumin (3.0-4.8) g/dL Globulin gm/dL Albumin/Globulin Ratio (1.1-1.8) Arterial Blood Potassium (3.6-5.2) mmol/L Venous Blood Potassium 4.5 (3.6-5.2) mmol/L Crossmatch 09/09/18 09/08/18 09/08/18 Range/Units 00:04 21:14 17:53 WBC (4.5-11.0) 10^3/uL RBC (3.5-6.1) 10^6/uL Hgb (14.0-18.0) g/dL Hct (42.0-52.0) % MCV (80.0-105.0) fl MCH (25.0-35.0) pg MCHC (31.0-37.0) g/dl RDW (11.5-14.5) % Plt Count (120.0-450.0) 10^3/uL MPV (7.0-11.0) fl pCO2 38 (35-45) mm/Hg pO2 149.0 H (80-100) mm/Hg HCO3 17.9 L (21-28) mmol/L ABG pH 7.28 L (7.35-7.45) ABG Total CO2 19.1 L (22-28) mmol.L ABG O2 Saturation 100.1 H (95-98) % ABG O2 Content (15-23) ML/dl ABG Base Excess -8.2 L (-2.0-3.0) mmol/L ABG Hemoglobin (11.7-17.4) g/dL ABG Carboxyhemoglobin (0.5-1.5) % POC ABG HHb (Measured) (0-5) % ABG Methemoglobin (0.0-3.0) % ABG O2 Capacity (16-24) mL/dl ABG Potassium 4.4 (3.6-5.2) mmol/L VBG pH (7.32-7.43) VBG pCO2 (40-60) VBG HCO3 (21-28) mmol/l VBG Total CO2 (22-28) mmol.L VBG O2 Sat (Calc) (40-65) % VBG Base Excess (0.0-2.0) mmol/L VBG Potassium (3.6-5.2) mmol/L Hgb O2 Saturation (95.0-98.0) % Sodium 147.0 (132-148) mmol/L Chloride 117.0 H (98-107) mmol/L Glucose 247 H (75-110) mg/dl Lactate 2.7 H (0.7-2.1) mmol/L FiO2 40.0 % PEEP Pressure Support CPAP Potassium (3.6-5.0) mmol/L Carbon Dioxide (21-33) mmol/L Anion Gap (10-20) BUN (7-21) mg/dL Creatinine (0.8-1.5) mg/dl Est GFR ( Amer) Est GFR (Non-Af Amer) POC Glucose (mg/dL) 249 H 160 H (65-110) mg/dL Random Glucose (70-110) mg/dL Calcium (8.4-10.5) mg/dL Phosphorus (2.5-4.5) mg/dL Magnesium (1.7-2.2) mg/dL Total Bilirubin (0.2-1.3) mg/dL AST (17-59) U/L ALT (7-56) U/L Alkaline Phosphatase (38-126) U/L Total Protein (5.8-8.3) g/dL Albumin (3.0-4.8) g/dL Globulin gm/dL Albumin/Globulin Ratio (1.1-1.8) Arterial Blood Potassium 4.4 (3.6-5.2) mmol/L Venous Blood Potassium (3.6-5.2) mmol/L Crossmatch 09/08/18 09/08/18 09/08/18 Range/Units 17:18 17:00 16:50 WBC 24.1 H D (4.5-11.0) 10^3/uL RBC 4.01 (3.5-6.1) 10^6/uL Hgb 12.3 L (14.0-18.0) g/dL Hct 40.2 L (42.0-52.0) % MCV 100.2 (80.0-105.0) fl MCH 30.7 (25.0-35.0) pg MCHC 30.6 L (31.0-37.0) g/dl RDW 21.0 H (11.5-14.5) % Plt Count 149 (120.0-450.0) 10^3/uL MPV 11.4 H (7.0-11.0) fl pCO2 71 H* (35-45) mm/Hg pO2 154.0 H (80-100) mm/Hg HCO3 20.6 L (21-28) mmol/L ABG pH 7.07 L* (7.35-7.45) ABG Total CO2 22.8 (22-28) mmol.L ABG O2 Saturation 100.1 H (95-98) % ABG O2 Content (15-23) ML/dl ABG Base Excess -10.7 L (-2.0-3.0) mmol/L ABG Hemoglobin (11.7-17.4) g/dL ABG Carboxyhemoglobin (0.5-1.5) % POC ABG HHb (Measured) (0-5) % ABG Methemoglobin (0.0-3.0) % ABG O2 Capacity (16-24) mL/dl ABG Potassium 5.2 (3.6-5.2) mmol/L VBG pH (7.32-7.43) VBG pCO2 (40-60) VBG HCO3 (21-28) mmol/l VBG Total CO2 (22-28) mmol.L VBG O2 Sat (Calc) (40-65) % VBG Base Excess (0.0-2.0) mmol/L VBG Potassium (3.6-5.2) mmol/L Hgb O2 Saturation (95.0-98.0) % Sodium 149 H 148.0 (132-148) mmol/L Chloride 117 H 117.0 H (98-107) mmol/L Glucose 180 H (75-110) mg/dl Lactate 1.8 (0.7-2.1) mmol/L FiO2 40.0 % PEEP 5 Pressure Support 5 CPAP 5 Potassium 5.5 H (3.6-5.0) mmol/L Carbon Dioxide 23 (21-33) mmol/L Anion Gap 14 (10-20) BUN 133 H* (7-21) mg/dL Creatinine 1.8 H (0.8-1.5) mg/dl Est GFR ( Amer) 44 Est GFR (Non-Af Amer) 36 POC Glucose (mg/dL) (65-110) mg/dL Random Glucose 166 H (70-110) mg/dL Calcium 7.9 L (8.4-10.5) mg/dL Phosphorus (2.5-4.5) mg/dL Magnesium (1.7-2.2) mg/dL Total Bilirubin (0.2-1.3) mg/dL AST (17-59) U/L ALT (7-56) U/L Alkaline Phosphatase (38-126) U/L Total Protein (5.8-8.3) g/dL Albumin (3.0-4.8) g/dL Globulin gm/dL Albumin/Globulin Ratio (1.1-1.8) Arterial Blood Potassium 5.2 (3.6-5.2) mmol/L Venous Blood Potassium (3.6-5.2) mmol/L Crossmatch 09/08/18 09/06/18 Range/Units 11:31 05:01 WBC (4.5-11.0) 10^3/uL RBC (3.5-6.1) 10^6/uL Hgb (14.0-18.0) g/dL Hct (42.0-52.0) % MCV (80.0-105.0) fl MCH (25.0-35.0) pg MCHC (31.0-37.0) g/dl RDW (11.5-14.5) % Plt Count (120.0-450.0) 10^3/uL MPV (7.0-11.0) fl pCO2 (35-45) mm/Hg pO2 (80-100) mm/Hg HCO3 (21-28) mmol/L ABG pH (7.35-7.45) ABG Total CO2 (22-28) mmol.L ABG O2 Saturation (95-98) % ABG O2 Content (15-23) ML/dl ABG Base Excess (-2.0-3.0) mmol/L ABG Hemoglobin (11.7-17.4) g/dL ABG Carboxyhemoglobin (0.5-1.5) % POC ABG HHb (Measured) (0-5) % ABG Methemoglobin (0.0-3.0) % ABG O2 Capacity (16-24) mL/dl ABG Potassium (3.6-5.2) mmol/L VBG pH (7.32-7.43) VBG pCO2 (40-60) VBG HCO3 (21-28) mmol/l VBG Total CO2 (22-28) mmol.L VBG O2 Sat (Calc) (40-65) % VBG Base Excess (0.0-2.0) mmol/L VBG Potassium (3.6-5.2) mmol/L Hgb O2 Saturation (95.0-98.0) % Sodium (132-148) mmol/L Chloride (98-107) mmol/L Glucose (75-110) mg/dl Lactate (0.7-2.1) mmol/L FiO2 % PEEP Pressure Support CPAP Potassium (3.6-5.0) mmol/L Carbon Dioxide (21-33) mmol/L Anion Gap (10-20) BUN (7-21) mg/dL Creatinine (0.8-1.5) mg/dl Est GFR ( Amer) Est GFR (Non-Af Amer) POC Glucose (mg/dL) 93 (65-110) mg/dL Random Glucose (70-110) mg/dL Calcium (8.4-10.5) mg/dL Phosphorus (2.5-4.5) mg/dL Magnesium (1.7-2.2) mg/dL Total Bilirubin (0.2-1.3) mg/dL AST (17-59) U/L ALT (7-56) U/L Alkaline Phosphatase (38-126) U/L Total Protein (5.8-8.3) g/dL Albumin (3.0-4.8) g/dL Globulin gm/dL Albumin/Globulin Ratio (1.1-1.8) Arterial Blood Potassium (3.6-5.2) mmol/L Venous Blood Potassium (3.6-5.2) mmol/L Crossmatch See Detail Laboratory Results - last 24 hr 09/06/18 09/08/18 09/08/18 05:01 11:31 16:50 WBC RBC Hgb Hct MCV MCH MCHC RDW Plt Count MPV pCO2 71 H* pO2 154.0 H HCO3 20.6 L ABG pH 7.07 L* ABG Total CO2 22.8 ABG O2 Saturation 100.1 H ABG O2 Content ABG Base Excess -10.7 L ABG Hemoglobin ABG Carboxyhemoglobin POC ABG HHb (Measured) ABG Methemoglobin ABG O2 Capacity ABG Potassium 5.2 VBG pH VBG pCO2 VBG HCO3 VBG Total CO2 VBG O2 Sat (Calc) VBG Base Excess VBG Potassium Hgb O2 Saturation Sodium 148.0 Chloride 117.0 H Glucose 180 H Lactate 1.8 FiO2 40.0 PEEP 5 Pressure Support 5 CPAP 5 Potassium Carbon Dioxide Anion Gap BUN Creatinine Est GFR ( Amer) Est GFR (Non-Af Amer) POC Glucose (mg/dL) 93 Random Glucose Calcium Phosphorus Magnesium Total Bilirubin AST ALT Alkaline Phosphatase Total Protein Albumin Globulin Albumin/Globulin Ratio Arterial Blood Potassium 5.2 Venous Blood Potassium Crossmatch See Detail 09/08/18 09/08/18 09/08/18 17:00 17:18 17:53 WBC 24.1 H D RBC 4.01 Hgb 12.3 L Hct 40.2 L MCV 100.2 MCH 30.7 MCHC 30.6 L RDW 21.0 H Plt Count 149 MPV 11.4 H pCO2 pO2 HCO3 ABG pH ABG Total CO2 ABG O2 Saturation ABG O2 Content ABG Base Excess ABG Hemoglobin ABG Carboxyhemoglobin POC ABG HHb (Measured) ABG Methemoglobin ABG O2 Capacity ABG Potassium VBG pH VBG pCO2 VBG HCO3 VBG Total CO2 VBG O2 Sat (Calc) VBG Base Excess VBG Potassium Hgb O2 Saturation Sodium 149 H Chloride 117 H Glucose Lactate FiO2 PEEP Pressure Support CPAP Potassium 5.5 H Carbon Dioxide 23 Anion Gap 14 BUN 133 H* Creatinine 1.8 H Est GFR ( Amer) 44 Est GFR (Non-Af Amer) 36 POC Glucose (mg/dL) 160 H Random Glucose 166 H Calcium 7.9 L Phosphorus Magnesium Total Bilirubin AST ALT Alkaline Phosphatase Total Protein Albumin Globulin Albumin/Globulin Ratio Arterial Blood Potassium Venous Blood Potassium Crossmatch 09/08/18 09/09/18 09/09/18 21:14 00:04 03:45 WBC RBC Hgb Hct MCV MCH MCHC RDW Plt Count MPV pCO2 38 pO2 149.0 H 43 HCO3 17.9 L ABG pH 7.28 L ABG Total CO2 19.1 L ABG O2 Saturation 100.1 H ABG O2 Content ABG Base Excess -8.2 L ABG Hemoglobin ABG Carboxyhemoglobin POC ABG HHb (Measured) ABG Methemoglobin ABG O2 Capacity ABG Potassium 4.4 VBG pH 7.30 L VBG pCO2 41.0 VBG HCO3 20.2 L VBG Total CO2 21.5 L VBG O2 Sat (Calc) 79.6 H VBG Base Excess -5.9 L VBG Potassium 4.5 Hgb O2 Saturation Sodium 147.0 146.0 Chloride 117.0 H 115.0 H Glucose 247 H 287 H Lactate 2.7 H 2.3 H FiO2 40.0 21.0 PEEP Pressure Support CPAP Potassium Carbon Dioxide Anion Gap BUN Creatinine Est GFR ( Amer) Est GFR (Non-Af Amer) POC Glucose (mg/dL) 249 H Random Glucose Calcium Phosphorus Magnesium Total Bilirubin AST ALT Alkaline Phosphatase Total Protein Albumin Globulin Albumin/Globulin Ratio Arterial Blood Potassium 4.4 Venous Blood Potassium 4.5 Crossmatch 09/09/18 09/09/18 09/09/18 05:28 05:35 07:00 WBC RBC Hgb Hct MCV MCH MCHC RDW Plt Count MPV pCO2 35 pO2 146.0 H HCO3 18.9 L ABG pH 7.34 L ABG Total CO2 20.0 L ABG O2 Saturation 99.9 H ABG O2 Content 13.1 L ABG Base Excess -6.2 L ABG Hemoglobin 9.5 L ABG Carboxyhemoglobin 2.6 H POC ABG HHb (Measured) 0.1 ABG Methemoglobin 1.2 ABG O2 Capacity 13.1 L ABG Potassium VBG pH VBG pCO2 VBG HCO3 VBG Total CO2 VBG O2 Sat (Calc) VBG Base Excess VBG Potassium Hgb O2 Saturation 96.1 Sodium 148 Chloride 118 H Glucose Lactate FiO2 40.0 PEEP Pressure Support CPAP Potassium 4.5 Carbon Dioxide 22 Anion Gap 13 BUN > 120 H* Creatinine 1.9 H Est GFR ( Amer) 41 Est GFR (Non-Af Amer) 34 POC Glucose (mg/dL) 321 H Random Glucose 257 H Calcium 7.5 L Phosphorus 7.6 H Magnesium 2.7 H Total Bilirubin 2.9 H AST 41 ALT 53 Alkaline Phosphatase 56 Total Protein 4.2 L Albumin 2.1 L Globulin 2.0 Albumin/Globulin Ratio 1.1 Arterial Blood Potassium Venous Blood Potassium Crossmatch 09/09/18 09/09/18 07:00 10:30 WBC 15.1 H D RBC 3.25 L Hgb 9.8 L D Hct 31.5 L MCV 100.0 MCH 30.2 MCHC 31.1 RDW 20.2 H Plt Count 99 L MPV 11.0 pCO2 pO2 42 HCO3 ABG pH ABG Total CO2 ABG O2 Saturation ABG O2 Content ABG Base Excess ABG Hemoglobin ABG Carboxyhemoglobin POC ABG HHb (Measured) ABG Methemoglobin ABG O2 Capacity ABG Potassium VBG pH 7.32 VBG pCO2 41.0 VBG HCO3 21.1 VBG Total CO2 22.4 VBG O2 Sat (Calc) 80.1 H VBG Base Excess -4.8 L VBG Potassium 4.4 Hgb O2 Saturation Sodium 146.0 Chloride 114.0 H Glucose 246 H Lactate 1.9 FiO2 21.0 PEEP Pressure Support CPAP Potassium Carbon Dioxide Anion Gap BUN Creatinine Est GFR ( Amer) Est GFR (Non-Af Amer) POC Glucose (mg/dL) Random Glucose Calcium Phosphorus Magnesium Total Bilirubin AST ALT Alkaline Phosphatase Total Protein Albumin Globulin Albumin/Globulin Ratio Arterial Blood Potassium Venous Blood Potassium 4.4 Crossmatch Fingerstick Blood Sugar Results: 228 Review of Systems - Review of Systems Systems not reviewed;Unavailable: Acuity of Condition Critical Care Progress Note - Ventilator Checklist Head of Bed 30 Degrees: Yes Daily Sedation Vacation: Yes Daily Assessment of Readiness to Wean: Yes Daily Spontaneous Breathing Trial: Yes PUD Prophalyxis: Yes DVT Prophylaxis: Yes Oral Care with Chlorhexidine Gluconate {CHG}: Yes - Vent Settings MODE:: PRVC TIDAL VOLUME:: 400 RESP RATE:: 20 FIO2:: 30 PEEP:: 5 - Extremities/Vascular Does the Patient have a Central Venous Catheter?: Yes Insertion Site: Internal Jugular Vein Does the Patient need a Central Venous Catheter?: Yes Does the Patient have a Anthony Catheter?: Yes Does the Patient need a Anthony Catheter?: Yes Catheter Insertion Criteria: Need for accurate measurement of output in critically ill patient - Prophylaxis GI Prophylaxis GI: Pepsid - Prophylaxis DVT Prophylaxis DVT: Heparin SQ - Nutrition Nutrition: Nutrition Category Date Time Status NPO Diet [DIET] Diets 09/02/18 Lunch Ordered Assessment/Plan - Assessment and Plan (Free Text) Assessment: Patient is a 82 y/o male 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 Patient is also s/p tracheostomy tube placement. Plan: Neuro: - Currently off sedation; mental status improved - maintain normothermia Pulm: - Failed pressure support due to respiratory acidosis, c/w PRVC vent settings - Maintain proper ventilator management: HoB > 35 degrees, DVT/GI ppx, oral care, suctioning, daily weaning trials, low-intermediate tidal volume - Patient is s/p tracheostomy tube (09/07) - s/p elective brochoscopy (09/02) - c/w Prednisone, xopenex, pulmicort - Pulmonology is following, recs appreciated - Maintain SaO2 > 90% - Hx recurrent L-lung atelectasis and mucus plugging s/p bronchoscopy x3 - Hx of COPD and smoking Cardio: - Tapered down on levophed to 2 mcg/min, vasopressin held, tapered down on stress dose steroids - Afib is now rate controlled - c/w verapamil - Cario is following, recs appreciated - Maintain MAP > 65 - Hx of endovascular repair of AAA - Hx of HTN GI: - CT Abd/Pelvis: consistent with enteritis and non-obstructing nephrolithiasis. No perforation or pneumatosis intestinalis. - c/w enteric feeds via NG tube - Diarrhea in ostomy bag, pending C. 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 complicated with viscus rupture and ex-lap and peritonitis Renal: - Worsened renal function; BUN/Cr is >120/1.9 - Due to uremic state, patient needs dialysis - pending placement of shiley catheter - Renal ultrasound shows no hydronephrosis but there was evidence of gallbladder wall thickening - c/w D5w IVF to avoid hypernatremia and hypercholoremia - continue to monitor ins/outs Heme: - Decrease in Hgb from 12.3 to 9.8; consider dilutional effect but significant drop in Hgb and elevated BUN requires further evaluation from GI and surgical team - No signs of active bleeding at this time - Continue to monitor ID: - Tmax 100.7 overnight; fevers during hospital course. Leukocytosis trending down. - f/u C. diff; c/w vanco PO - Venous doppler negative for DVT - Based on CT A/P findings, acalculous cholecystitis not likely - septic w/u has been negative thus far. - c/w meropenem (Day #8) and daptomycin (Day #4) as per ID recs - VRE+ Endo: - Maintain euglycemia - ISS - low Prophylaxis: - DVT ppx: SCD, Hep SC - GI ppx: pepcid Palliative care is on board. Dispo: Continue to manage the patient in the ICU. Pending Shiley Catheter today for hemodialysis. Case was discussed and reviewed with Attending Physician, Dr. Andujar. <Ari Andujar - Last Filed: 09/09/18 18:50> CCU Objective - Vital Signs / Intake & Output Vital Signs (Last 4 hours): Vital Signs Temp Pulse BP Pulse Ox 09/09/18 16:15 114 H 101/41 L 100 09/09/18 16:00 99.5 F 119 H 97/39 L 98 09/09/18 15:49 120 H 09/09/18 15:45 126 H 102/58 L 98 09/09/18 15:30 116 H 112/55 L 99 09/09/18 15:15 109 H 101/36 L 98 09/09/18 15:00 114 H 103/41 L 97 Intake and Output (Last 8hrs): Intake & Output 09/09/18 09/09/18 09/09/18 06:59 14:59 22:59 Intake Total 5132 382 Output Total 900 Balance 4232 382 Weight 142 lb Intake: IV 4132 382 0.9 ns 1200 Clinimix 996 Left Upper arm 1500 Right Internal Jugular 436 Tube Feeding 700 Other 300 Output: Drainage 350 Colostomy 250 Right Abdomen 100 Urine 550 Condom 550 Other: # Bowel Movements 0 - Medications Active Medications: Active Medications Generic Name Dose Route Start Last Admin Trade Name Freq PRN Reason Stop Dose Admin Acetylcysteine 4 ml 09/02/18 08:00 09/04/18 20:05 Acetylcysteine 20% IH Not Given [id number] KD Aspirin 81 mg 09/05/18 11:30 09/09/18 09:56 Aspirin Chewable PO 81 mg DAILY KD Administration Budesonide 0.5 mg 08/13/18 08:00 09/09/18 07:20 Pulmicort Respules IH 0.5 mg [id number] KD Administration Calcium Acetate 667 mg 09/10/18 10:00 Phoslo GT TID KD Dextrose 0 ml 09/05/18 15:56 Dextrose 50% Inj IV STAT PRN Hypoglycemia Protocol Protocol Famotidine 20 mg 08/21/18 10:00 09/09/18 09:56 Pepcid PO 20 mg DAILY KD Administration Heparin Sodium (Porcine) 5,000 units 09/08/18 14:00 09/09/18 15:07 Heparin SC 5,000 units Q8 KD Administration Protocol Hydrocortisone Sodium Succinate 50 mg 09/09/18 08:45 09/09/18 09:56 Solu-Cortef IVP 50 mg Q12H KD Administration Propofol 1,000 mg in 100 mls @ 1.757 mls/hr 09/02/18 09:00 09/08/18 09:00 Diprivan IV 0 mcg/kg/min .Q24H PRN 0 mls/hr TITRATE PER MD ORDER Titration Protocol 5 MCG/KG/MIN Dextrose 1,000 mls @ 0 mls/hr 09/05/18 15:56 09/08/18 10:00 Dextrose 5% In Water 1000 Ml IV 100 mls/hr .Q0M PRN Administration Hypoglycemia Protocol Protocol Per Protocol NOREPINEPHRINE BIT/0.9 % NACL 4 mg in 250 mls @ 15 mls/hr 09/08/18 18:30 09/09/18 10:00 Levophed 4 Mg/ 250 Ml Ns Premixed IV 2 mcg/min .[id number] KD 7.5 mls/hr Titration Protocol 4 MCG/MIN Vasopressin 20 units/ Dextrose 101 mls @ 9.09 mls/hr 09/08/18 18:45 09/09/18 05:31 IV 9.09 mls/hr .[id number] KD Administration Protocol 0.03 U/MIN Dextrose 1,000 mls @ 100 mls/hr 09/08/18 14:30 09/09/18 11:13 Dextrose 5% In Water 1000 Ml IV 100 mls/hr .Q10H KD Administration Daptomycin 610 mg/ Sodium 100 mls @ 200 mls/hr 09/10/18 13:15 Chloride IV 09/13/18 13:16 Q48H KD Meropenem 1 gm in 50 mls @ 100 mls/hr 09/09/18 18:00 09/09/18 17:12 Merrem Iv 1 Gm Premix IVPB 09/11/18 09:09 100 mls/hr 0600,1800 KD Administration Protocol Insulin Human Regular 0 units 09/03/18 12:00 09/09/18 18:40 Humulin R Low SC Not Given Q6 KD Protocol Levalbuterol HCl 0.63 mg 08/18/18 08:00 09/09/18 13:20 Xopenex IH 0.63 mg [id number] KD Administration Vancomycin HCl 250 mg 09/08/18 18:00 09/09/18 17:13 Vancocin 25 Mg/Ml (Oral Use) PO 250 mg QID KD Administration Protocol Verapamil HCl 2.5 mg 08/31/18 09:03 Verapamil Inj IVP Q6H PRN for heart rate >130 Verapamil HCl 40 mg 09/08/18 18:15 09/09/18 17:15 Calan Tab PO Not Given Q8H KD - Patient Studies Lab Studies: Microbiology Studies 09/07/18 18:48 Body Fluid Culture - Preliminary Body Fluid - Abdominal Cavity NO GROWTH AFTER 24 HOURS 09/07/18 08:16 Gram Stain - Final Sputum Induced Sputum Culture - Final Yeast Species 09/08/18 11:37 C. difficile Antigen & Toxins A,B - Final Stool 09/06/18 12:00 Blood Culture - Preliminary Blood NO GROWTH AFTER 3 DAYS 09/06/18 11:45 Blood Culture - Preliminary Blood NO GROWTH AFTER 3 DAYS 09/06/18 12:24 Catheter Tip Culture - Final Catheter Tip No growth. 09/07/18 20:40 Gram Stain - Final Other: Please Indicate Lab Studies 09/09/18 09/09/18 09/09/18 Range/Units 17:48 11:56 10:30 WBC (4.5-11.0) 10^3/uL RBC (3.5-6.1) 10^6/uL Hgb (14.0-18.0) g/dL Hct (42.0-52.0) % MCV (80.0-105.0) fl MCH (25.0-35.0) pg MCHC (31.0-37.0) g/dl RDW (11.5-14.5) % Plt Count (120.0-450.0) 10^3/uL MPV (7.0-11.0) fl pCO2 (35-45) mm/Hg pO2 42 (80-100) mm/Hg HCO3 (21-28) mmol/L ABG pH (7.35-7.45) ABG Total CO2 (22-28) mmol.L ABG O2 Saturation (95-98) % ABG O2 Content (15-23) ML/dl ABG Base Excess (-2.0-3.0) mmol/L ABG Hemoglobin (11.7-17.4) g/dL ABG Carboxyhemoglobin (0.5-1.5) % POC ABG HHb (Measured) (0-5) % ABG Methemoglobin (0.0-3.0) % ABG O2 Capacity (16-24) mL/dl ABG Potassium (3.6-5.2) mmol/L VBG pH 7.32 (7.32-7.43) VBG pCO2 41.0 (40-60) VBG HCO3 21.1 (21-28) mmol/l VBG Total CO2 22.4 (22-28) mmol.L VBG O2 Sat (Calc) 80.1 H (40-65) % VBG Base Excess -4.8 L (0.0-2.0) mmol/L VBG Potassium 4.4 (3.6-5.2) mmol/L Hgb O2 Saturation (95.0-98.0) % Sodium 146.0 (132-148) mmol/L Chloride 114.0 H (98-107) mmol/L Glucose 246 H (75-110) mg/dl Lactate 1.9 (0.7-2.1) mmol/L FiO2 21.0 % Potassium (3.6-5.0) mmol/L Carbon Dioxide (21-33) mmol/L Anion Gap (10-20) BUN (7-21) mg/dL Creatinine (0.8-1.5) mg/dl Est GFR ( Amer) Est GFR (Non-Af Amer) POC Glucose (mg/dL) 203 H 232 H (65-110) mg/dL Random Glucose (70-110) mg/dL Calcium (8.4-10.5) mg/dL Phosphorus (2.5-4.5) mg/dL Magnesium (1.7-2.2) mg/dL Total Bilirubin (0.2-1.3) mg/dL AST (17-59) U/L ALT (7-56) U/L Alkaline Phosphatase (38-126) U/L Total Protein (5.8-8.3) g/dL Albumin (3.0-4.8) g/dL Globulin gm/dL Albumin/Globulin Ratio (1.1-1.8) Arterial Blood Potassium (3.6-5.2) mmol/L Venous Blood Potassium 4.4 (3.6-5.2) mmol/L Crossmatch 09/09/18 09/09/18 09/09/18 Range/Units 07:00 07:00 05:35 WBC 15.1 H D (4.5-11.0) 10^3/uL RBC 3.25 L (3.5-6.1) 10^6/uL Hgb 9.8 L D (14.0-18.0) g/dL Hct 31.5 L (42.0-52.0) % MCV 100.0 (80.0-105.0) fl MCH 30.2 (25.0-35.0) pg MCHC 31.1 (31.0-37.0) g/dl RDW 20.2 H (11.5-14.5) % Plt Count 99 L (120.0-450.0) 10^3/uL MPV 11.0 (7.0-11.0) fl pCO2 35 (35-45) mm/Hg pO2 146.0 H (80-100) mm/Hg HCO3 18.9 L (21-28) mmol/L ABG pH 7.34 L (7.35-7.45) ABG Total CO2 20.0 L (22-28) mmol.L ABG O2 Saturation 99.9 H (95-98) % ABG O2 Content 13.1 L (15-23) ML/dl ABG Base Excess -6.2 L (-2.0-3.0) mmol/L ABG Hemoglobin 9.5 L (11.7-17.4) g/dL ABG Carboxyhemoglobin 2.6 H (0.5-1.5) % POC ABG HHb (Measured) 0.1 (0-5) % ABG Methemoglobin 1.2 (0.0-3.0) % ABG O2 Capacity 13.1 L (16-24) mL/dl ABG Potassium (3.6-5.2) mmol/L VBG pH (7.32-7.43) VBG pCO2 (40-60) VBG HCO3 (21-28) mmol/l VBG Total CO2 (22-28) mmol.L VBG O2 Sat (Calc) (40-65) % VBG Base Excess (0.0-2.0) mmol/L VBG Potassium (3.6-5.2) mmol/L Hgb O2 Saturation 96.1 (95.0-98.0) % Sodium 148 (132-148) mmol/L Chloride 118 H (98-107) mmol/L Glucose (75-110) mg/dl Lactate (0.7-2.1) mmol/L FiO2 40.0 % Potassium 4.5 (3.6-5.0) mmol/L Carbon Dioxide 22 (21-33) mmol/L Anion Gap 13 (10-20) BUN > 120 H* (7-21) mg/dL Creatinine 1.9 H (0.8-1.5) mg/dl Est GFR ( Amer) 41 Est GFR (Non-Af Amer) 34 POC Glucose (mg/dL) (65-110) mg/dL Random Glucose 257 H (70-110) mg/dL Calcium 7.5 L (8.4-10.5) mg/dL Phosphorus 7.6 H (2.5-4.5) mg/dL Magnesium 2.7 H (1.7-2.2) mg/dL Total Bilirubin 2.9 H (0.2-1.3) mg/dL AST 41 (17-59) U/L ALT 53 (7-56) U/L Alkaline Phosphatase 56 (38-126) U/L Total Protein 4.2 L (5.8-8.3) g/dL Albumin 2.1 L (3.0-4.8) g/dL Globulin 2.0 gm/dL Albumin/Globulin Ratio 1.1 (1.1-1.8) Arterial Blood Potassium (3.6-5.2) mmol/L Venous Blood Potassium (3.6-5.2) mmol/L Crossmatch 09/09/18 09/09/18 09/09/18 Range/Units 05:28 03:45 00:04 WBC (4.5-11.0) 10^3/uL RBC (3.5-6.1) 10^6/uL Hgb (14.0-18.0) g/dL Hct (42.0-52.0) % MCV (80.0-105.0) fl MCH (25.0-35.0) pg MCHC (31.0-37.0) g/dl RDW (11.5-14.5) % Plt Count (120.0-450.0) 10^3/uL MPV (7.0-11.0) fl pCO2 (35-45) mm/Hg pO2 43 (80-100) mm/Hg HCO3 (21-28) mmol/L ABG pH (7.35-7.45) ABG Total CO2 (22-28) mmol.L ABG O2 Saturation (95-98) % ABG O2 Content (15-23) ML/dl ABG Base Excess (-2.0-3.0) mmol/L ABG Hemoglobin (11.7-17.4) g/dL ABG Carboxyhemoglobin (0.5-1.5) % POC ABG HHb (Measured) (0-5) % ABG Methemoglobin (0.0-3.0) % ABG O2 Capacity (16-24) mL/dl ABG Potassium (3.6-5.2) mmol/L VBG pH 7.30 L (7.32-7.43) VBG pCO2 41.0 (40-60) VBG HCO3 20.2 L (21-28) mmol/l VBG Total CO2 21.5 L (22-28) mmol.L VBG O2 Sat (Calc) 79.6 H (40-65) % VBG Base Excess -5.9 L (0.0-2.0) mmol/L VBG Potassium 4.5 (3.6-5.2) mmol/L Hgb O2 Saturation (95.0-98.0) % Sodium 146.0 (132-148) mmol/L Chloride 115.0 H (98-107) mmol/L Glucose 287 H (75-110) mg/dl Lactate 2.3 H (0.7-2.1) mmol/L FiO2 21.0 % Potassium (3.6-5.0) mmol/L Carbon Dioxide (21-33) mmol/L Anion Gap (10-20) BUN (7-21) mg/dL Creatinine (0.8-1.5) mg/dl Est GFR ( Amer) Est GFR (Non-Af Amer) POC Glucose (mg/dL) 321 H 249 H (65-110) mg/dL Random Glucose (70-110) mg/dL Calcium (8.4-10.5) mg/dL Phosphorus (2.5-4.5) mg/dL Magnesium (1.7-2.2) mg/dL Total Bilirubin (0.2-1.3) mg/dL AST (17-59) U/L ALT (7-56) U/L Alkaline Phosphatase (38-126) U/L Total Protein (5.8-8.3) g/dL Albumin (3.0-4.8) g/dL Globulin gm/dL Albumin/Globulin Ratio (1.1-1.8) Arterial Blood Potassium (3.6-5.2) mmol/L Venous Blood Potassium 4.5 (3.6-5.2) mmol/L Crossmatch 09/08/18 09/06/18 Range/Units 21:14 05:01 WBC (4.5-11.0) 10^3/uL RBC (3.5-6.1) 10^6/uL Hgb (14.0-18.0) g/dL Hct (42.0-52.0) % MCV (80.0-105.0) fl MCH (25.0-35.0) pg MCHC (31.0-37.0) g/dl RDW (11.5-14.5) % Plt Count (120.0-450.0) 10^3/uL MPV (7.0-11.0) fl pCO2 38 (35-45) mm/Hg pO2 149.0 H (80-100) mm/Hg HCO3 17.9 L (21-28) mmol/L ABG pH 7.28 L (7.35-7.45) ABG Total CO2 19.1 L (22-28) mmol.L ABG O2 Saturation 100.1 H (95-98) % ABG O2 Content (15-23) ML/dl ABG Base Excess -8.2 L (-2.0-3.0) mmol/L ABG Hemoglobin (11.7-17.4) g/dL ABG Carboxyhemoglobin (0.5-1.5) % POC ABG HHb (Measured) (0-5) % ABG Methemoglobin (0.0-3.0) % ABG O2 Capacity (16-24) mL/dl ABG Potassium 4.4 (3.6-5.2) mmol/L VBG pH (7.32-7.43) VBG pCO2 (40-60) VBG HCO3 (21-28) mmol/l VBG Total CO2 (22-28) mmol.L VBG O2 Sat (Calc) (40-65) % VBG Base Excess (0.0-2.0) mmol/L VBG Potassium (3.6-5.2) mmol/L Hgb O2 Saturation (95.0-98.0) % Sodium 147.0 (132-148) mmol/L Chloride 117.0 H (98-107) mmol/L Glucose 247 H (75-110) mg/dl Lactate 2.7 H (0.7-2.1) mmol/L FiO2 40.0 % Potassium (3.6-5.0) mmol/L Carbon Dioxide (21-33) mmol/L Anion Gap (10-20) BUN (7-21) mg/dL Creatinine (0.8-1.5) mg/dl Est GFR ( Amer) Est GFR (Non-Af Amer) POC Glucose (mg/dL) (65-110) mg/dL Random Glucose (70-110) mg/dL Calcium (8.4-10.5) mg/dL Phosphorus (2.5-4.5) mg/dL Magnesium (1.7-2.2) mg/dL Total Bilirubin (0.2-1.3) mg/dL AST (17-59) U/L ALT (7-56) U/L Alkaline Phosphatase (38-126) U/L Total Protein (5.8-8.3) g/dL Albumin (3.0-4.8) g/dL Globulin gm/dL Albumin/Globulin Ratio (1.1-1.8) Arterial Blood Potassium 4.4 (3.6-5.2) mmol/L Venous Blood Potassium (3.6-5.2) mmol/L Crossmatch See Detail Laboratory Results - last 24 hr 09/06/18 09/08/18 09/09/18 05:01 21:14 00:04 WBC RBC Hgb Hct MCV MCH MCHC RDW Plt Count MPV pCO2 38 pO2 149.0 H HCO3 17.9 L ABG pH 7.28 L ABG Total CO2 19.1 L ABG O2 Saturation 100.1 H ABG O2 Content ABG Base Excess -8.2 L ABG Hemoglobin ABG Carboxyhemoglobin POC ABG HHb (Measured) ABG Methemoglobin ABG O2 Capacity ABG Potassium 4.4 VBG pH VBG pCO2 VBG HCO3 VBG Total CO2 VBG O2 Sat (Calc) VBG Base Excess VBG Potassium Hgb O2 Saturation Sodium 147.0 Chloride 117.0 H Glucose 247 H Lactate 2.7 H FiO2 40.0 Potassium Carbon Dioxide Anion Gap BUN Creatinine Est GFR ( Amer) Est GFR (Non-Af Amer) POC Glucose (mg/dL) 249 H Random Glucose Calcium Phosphorus Magnesium Total Bilirubin AST ALT Alkaline Phosphatase Total Protein Albumin Globulin Albumin/Globulin Ratio Arterial Blood Potassium 4.4 Venous Blood Potassium Crossmatch See Detail 09/09/18 09/09/18 09/09/18 03:45 05:28 05:35 WBC RBC Hgb Hct MCV MCH MCHC RDW Plt Count MPV pCO2 35 pO2 43 146.0 H HCO3 18.9 L ABG pH 7.34 L ABG Total CO2 20.0 L ABG O2 Saturation 99.9 H ABG O2 Content 13.1 L ABG Base Excess -6.2 L ABG Hemoglobin 9.5 L ABG Carboxyhemoglobin 2.6 H POC ABG HHb (Measured) 0.1 ABG Methemoglobin 1.2 ABG O2 Capacity 13.1 L ABG Potassium VBG pH 7.30 L VBG pCO2 41.0 VBG HCO3 20.2 L VBG Total CO2 21.5 L VBG O2 Sat (Calc) 79.6 H VBG Base Excess -5.9 L VBG Potassium 4.5 Hgb O2 Saturation 96.1 Sodium 146.0 Chloride 115.0 H Glucose 287 H Lactate 2.3 H FiO2 21.0 40.0 Potassium Carbon Dioxide Anion Gap BUN Creatinine Est GFR ( Amer) Est GFR (Non-Af Amer) POC Glucose (mg/dL) 321 H Random Glucose Calcium Phosphorus Magnesium Total Bilirubin AST ALT Alkaline Phosphatase Total Protein Albumin Globulin Albumin/Globulin Ratio Arterial Blood Potassium Venous Blood Potassium 4.5 Crossmatch 09/09/18 09/09/18 09/09/18 07:00 07:00 10:30 WBC 15.1 H D RBC 3.25 L Hgb 9.8 L D Hct 31.5 L MCV 100.0 MCH 30.2 MCHC 31.1 RDW 20.2 H Plt Count 99 L MPV 11.0 pCO2 pO2 42 HCO3 ABG pH ABG Total CO2 ABG O2 Saturation ABG O2 Content ABG Base Excess ABG Hemoglobin ABG Carboxyhemoglobin POC ABG HHb (Measured) ABG Methemoglobin ABG O2 Capacity ABG Potassium VBG pH 7.32 VBG pCO2 41.0 VBG HCO3 21.1 VBG Total CO2 22.4 VBG O2 Sat (Calc) 80.1 H VBG Base Excess -4.8 L VBG Potassium 4.4 Hgb O2 Saturation Sodium 148 146.0 Chloride 118 H 114.0 H Glucose 246 H Lactate 1.9 FiO2 21.0 Potassium 4.5 Carbon Dioxide 22 Anion Gap 13 BUN > 120 H* Creatinine 1.9 H Est GFR ( Amer) 41 Est GFR (Non-Af Amer) 34 POC Glucose (mg/dL) Random Glucose 257 H Calcium 7.5 L Phosphorus 7.6 H Magnesium 2.7 H Total Bilirubin 2.9 H AST 41 ALT 53 Alkaline Phosphatase 56 Total Protein 4.2 L Albumin 2.1 L Globulin 2.0 Albumin/Globulin Ratio 1.1 Arterial Blood Potassium Venous Blood Potassium 4.4 Crossmatch 09/09/18 09/09/18 11:56 17:48 WBC RBC Hgb Hct MCV MCH MCHC RDW Plt Count MPV pCO2 pO2 HCO3 ABG pH ABG Total CO2 ABG O2 Saturation ABG O2 Content ABG Base Excess ABG Hemoglobin ABG Carboxyhemoglobin POC ABG HHb (Measured) ABG Methemoglobin ABG O2 Capacity ABG Potassium VBG pH VBG pCO2 VBG HCO3 VBG Total CO2 VBG O2 Sat (Calc) VBG Base Excess VBG Potassium Hgb O2 Saturation Sodium Chloride Glucose Lactate FiO2 Potassium Carbon Dioxide Anion Gap BUN Creatinine Est GFR ( Amer) Est GFR (Non-Af Amer) POC Glucose (mg/dL) 232 H 203 H Random Glucose Calcium Phosphorus Magnesium Total Bilirubin AST ALT Alkaline Phosphatase Total Protein Albumin Globulin Albumin/Globulin Ratio Arterial Blood Potassium Venous Blood Potassium Crossmatch Critical Care Progress Note - Nutrition Nutrition: Nutrition Category Date Time Status NPO Diet [DIET] Diets 09/02/18 Lunch Ordered Attending/Attestation - Attestation I have personally seen and examined this patient.: Yes I have fully participated in the care of the patient.: Yes I have reviewed all pertinent clinical information: Yes Notes (Text): 09/09/18 18:[address] Andujar note
--- NOTE | 2018-09-09 14:57 | PN ---
DATE: 09/09/2018 REASON FOR CONSULTATION AND FOLLOWUP: Atrial fibrillation, status post respiratory failure, status post abdominal surgery, status post tracheostomy, on multiple vasopressors. SUBJECTIVE: The patient is sedated, on multiple vasopressors, on ventilator status post tracheostomy. OBJECTIVE: GENERAL: Not in apparent distress. VITAL SIGNS: Temperature is afebrile, heart rate of 109 and blood pressure of 120/48. HEENT: PERRLA. Intact.. NECK: Supple. No carotid bruits or thyromegaly. CHEST: Clear to auscultation. HEART: S1 and S2, regular. ABDOMEN: Soft. EXTREMITIES: Clubbing and cyanosis negative. LABORATORY DATA: Blood workup as follows: WBC of 15.1, hemoglobin 9.8, hematocrit 31.5 and platelet count 99. Chemistry shows sodium of 140, potassium of 4.5, chloride of 118, carbon dioxide of 22, anion gap of 13, BUN more than 120 and creatinine of 1.9. Total protein is 4.2, albumin 2.1 and albumin to globulin ratio is 1. IMPRESSION: An 82-year-old male with past medical history significant for colostomy in the past, history of abdominal aortic aneurysm, endovascular stent repair,Echo showed ejection fraction preserved, history of villous adenoma status post resection, right hemicolectomy. Hospital course complicated by multiple times of recurrent collapse of the left lung requiring intubation and bronchoscopy. Further hospital course is complicated by spontaneous perforation of the bowel postop requiring reexploration of the abdomen and exploratory laparotomy, resection of the perforated bowel segment and end-to-end anastomosis. Further the patient has come again, dropped the left lung, requiring intubation and then subsequently has a tracheostomy done. Last night, the patient had hypotension, on vasopressins and Levophed, being fed through the nasogastric tube, as well as PPN. History of chronic atrial fibrillation, not on anticoagulation because of dropping hemoglobin and hematocrit as well as oozing from the increased drainage. RECOMMENDATIONS: Continue antibiotics as per ID, continue vent management, wean off vasopressors as tolerated. Start verapamil through the NG tube. Discontinue Cardizem. Continue supportive care. Worsening renal insufficiency may need dialysis in future. We will follow with you. Overall, the patient's condition is critical. Long-term prognosis is guarded. Gladis Greenfield MD [place]
--- NOTE | 2018-09-09 18:54 | PCM.PROC ---
Procedures Attestation:: I certify that I have explained the specified Operation(s) or Procedure(s), risks, benefits and reasonable alternatives to the Patient and/or other person responsible. The opportunity was given to ask questions and all questions answered - Central Line Placement Right Femoral Hemodialysis Access Aseptic technique was employed throughout the procedure: Hand Hygiene done prior to procedure, Full sterile barriers (mask, hair cover, sterile gown, sterile gloves), Full body sterile drape, Chloraprep Antiseptic: 2 minute prep for Femoral CVP Time Out Performed: Yes Pt. Placed on Pulse Ox Monitor: Yes Central Line Prep: Chlorhexidine-Alcohol Combination Local Anesthesia Used: Lidocaine 2% Amount of Anesthesia Used (mls): 10 Ultrasound Used for Placement: Yes Central Line Lumen Inserted: triple Post Procedure: Sutured in Place, Good Blood Return, All Ports Aspirated, Flushed, Capped, Sterile Dressing Applied Secured by: Suture Post procedure dressing: Gauze Post Procedure X-Ray: No Patient Tolerated Procedure: Well Immediate Complications: Other (multiple attempts in left groin due to inability to thread guidewire. Successful HD catheter placement into right femoral vein. Pressure dressing placed on left groin with successful hemostasis and no acute hematoma formation.)
--- NOTE | 2018-09-09 19:04 | PN ---
DATE: 09/09/2018 DIALYSIS PROGRESS NOTE SUBJECTIVE: This 82-year-old male is in ICU bed #1, dialyzing on a F 160, 140 sodium, 4 K bicarb bath with blood flow rates of 250 mL per minute via a right femoral Uldall catheter. OBJECTIVE: VITAL SIGNS: Blood pressure was 119/55 with a pulse of 110. donor relations officer showed atrial fibrillation. HEART: Irregular, S1 and S2. LUNGS: With occasional rhonchi. PLAN: The plan will be to dialyze this patient for two and a half hours today as I instructed the dialysis nurse if he is hold stable for the next hour, we will increase his blood flow rates to 300 mL per minute. I have requested a post-dialysis basic metabolic panel to assess adequacy of dialysis. Sara Ramirez MD
--- NOTE | 2018-09-09 20:28 | PN ---
DATE: 09/09/2018 SUBJECTIVE: The patient is 82 years old, lying in bed. No overnight event noted. Seems very weak and malnourished. He remains sedated, on trach and vent. Trach seems to be not bleeding. PHYSICAL EXAMINATION: VITAL SIGNS: He has a temperature of 99.5, pulse 114, respirations 18, blood pressure 101/41. LUNGS: Bilateral fair airflow. HEART: S1 and S2 audible. Tachycardic. ABDOMEN: Soft. Colostomy functional. Drain has clear yellowish fluid. EXTREMITIES: Bilateral legs, no edema. LABORATORY EXAMINATION: WBC 15.1, hemoglobin 9.8, hematocrit 31.5, platelets of 99. Chemistries: Sodium 148, potassium 4.5, chloride 118, CO2 of 22, BUN 120, creatinine 1.9, and blood sugar 257. Stool for C. difficile is negative. ASSESSMENT AND PLAN: 1. Respiratory failure, status post tracheostomy. 2. Septic shock. 3. Acute renal failure. 4. Leukocytosis. 5. History of atrial fibrillation. 6. Seizure disorder. 7. Multiorgan failure. 8. The patient is full code. We will reach out to the family. Prognosis is poor. I spoke to ____ and Dr. Du. Either the patient has to be transferred to long-term acute care or he need to be on hospice care. We will re-evaluate in the morning. Tri Fleming MD
[2018-09-09 21:32] LABS: ALB/GLOB RATIO 1.2 (1.1-1.8); ALBUMIN 3.3 g/dL (3.0-4.8); ALT/SGPT 72 U/L (7-56); AST/SGOT 65 U/L (17-59); BLOOD UREA NITROGEN 51 mg/dL (7-21); CALCIUM 7.5 mg/dL (8.4-10.5); GFR NON-AFRICAN AMERICAN > 60
--- NOTE | 2018-09-09 21:53 | PN ---
DATE: 09/09/2018 CRITICAL CARE PROGRESS NOTE SUBJECTIVE: This 82-year-old male remains in critical care unit bed #1 in the ICU at the [facility] on the morning of , 09/09/2018. This case was reviewed in detail with steward/stewardess wine, Dr. Ari Andujar, and PMD and surgeon, Dr. Rocael Du. 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 The patient had a stool culture most recently which is showing negative stool C. difficile antigen and toxin. The patient remains weak and deconditioned. PHYSICAL EXAMINATION: VITAL SIGNS: Temperature was 99.8, pulse 119, blood pressure 91/55 with O2 sat of 96% on 40% FiO2. HEENT: Head: Normocephalic, atraumatic. NECK: Supple. HEART: Irregular S1 and S2. LUNGS: With rhonchi. ABDOMEN: Soft. EXTREMITIES: Lower extremities, no edema. Upper extremities with lymphedema. VASCULAR: Legs warm to touch. PSYCHOLOGICAL: Lethargic. NEUROLOGICAL: Marked deconditioning. LABORATORY DATA: Sodium 148, potassium 4.5, chloride 118, bicarb 22, BUN greater than 120, creatinine 1.9, random blood sugar 257, calcium 7.5, phosphorus 7.6, magnesium 2.7. AST 41, ALT 53, alk phos 56, and albumin low 2.1. White count 15,100, hemoglobin 9.8, hematocrit 31.5, platelets 99,000. I did review the patient's most recent abdominopelvic CT dated 09/09/2018 which showed known evidence of an intra-abdominal abscess and bilateral nephrolithiasis with known evidence of obstructive uropathy. Today's chest x-ray was reviewed. It showed a left pleural effusion, slightly increased opacity in the retrocardiac left base and a right pleural effusion. Abdominal ultrasound dated 09/08/2018 was reviewed once again, it showed no evidence of hydronephrosis, but there is evidence of sludge or tiny stones in his gallbladder and gallbladder wall was thickened with minimal pericholecystic fluid. IMPRESSION AND PLAN: An 82-year-old male with multiple problems, now with renal failure and azotemia in the setting of sepsis, pneumonia, acute on chronic renal failure, status post abdominal surgery x2, insulin-dependent diabetes mellitus, peptic ulcer disease with gastroesophageal reflux disease, anemia of chronic disease and exacerbation of chronic obstructive pulmonary disease with respiratory failure, requiring tracheostomy. As discussed with Dr. Andujar, Dr. Du and sonAbelardo, it is the family's desire for trial of dialysis to improve azotemia and electrolytes. This will be accomplished once a Tesio Denair catheter is placed. The patient also will continue on Ecotrin, verapamil renal dose reduced intravenous antibiotics including daptomycin, meropenem and sedation with Diprivan, subcutaneously heparin for deep venous thrombosis prophylaxis, insulin coverage, Levophed for blood pressure support, Pepcid, Pulmicort inhalational therapy, stress dose of intravenous Solu-Cortef and Xopenex inhalational therapy. Once dialysis catheter is in place, dialysis will be instituted. Consent was obtained from sonAbelardo, power of sports attorney in the presence of Dr. Ari Andujar, and case was reviewed with PMD, Dr. Rocael Du. All questions were answered. Sara Ramirez MD MTDD
[2018-09-10 01:09] LABS: ARTERIAL BLOOD GAS HCO3 19.5 mmol/L (21-28); ARTERIAL BLOOD GAS HEMOGLOBIN 9.7 g/dL (11.7-17.4); ARTERIAL BLOOD GAS O2 CAPACITY 13.5 mL/dl (16-24); ARTERIAL BLOOD GAS O2 CONTENT 13.4 ML/dl (15-23); ARTERIAL BLOOD GAS O2 SAT 99.6 % (95-98); ARTERIAL BLOOD GAS PCO2 30 mm/Hg (35-45); ARTERIAL BLOOD GAS PH 7.42 (7.35-7.45); ARTERIAL BLOOD GAS TCO2 20.4 mmol.L (22-28)
[2018-09-10] MEDS: Insulin Reg-LOW-Coverage SC SCH ×4 (02:04→18:37)
[2018-09-10] MEDS: Levalbuterol 0.63 MG/3 ML Inhal Soln UD IH SCH ×4 (02:06→20:24)
[2018-09-10] MEDS ORDERED: HYDROmorphone 1 mg/ml ISec IVP PRN (05:13)
[2018-09-10] MEDS: Meropenem IV 1 gm in NS 1 GM/50 ML BAG IVPB SCH ×2 (05:17→17:16)
[2018-09-10] MEDS: NOREPINEPHRINE BIT/0.9 % NACL 4 MG/250 ML BAG IV SCH (05:18)
[2018-09-10 06:53] LABS: HEMOGLOBIN 10.4 g/dL (14.0-18.0); MEAN CELL VOLUME 93.9 fl (80.0-105.0); MEAN CORPUSCULAR HEMOGLOBIN 30.2 pg (25.0-35.0); MEAN CORPUSCULAR HGB CONC 32.2 g/dl (31.0-37.0); MEAN PLATELET VOLUME 11.4 fl (7.0-11.0); RBC 3.44 10^6/uL (3.5-6.1); RED CELL DISTRIBUTION WIDTH 19.9 % (11.5-14.5); WHITE BLOOD COUNT 22.3 10^3/uL (4.5-11.0)
[2018-09-10 07:13] LABS: ALBUMIN 2.1 g/dL (3.0-4.8); CALCIUM 7.2 mg/dL (8.4-10.5)
[2018-09-10] MEDS: Budesonide 0.5 mg/2 ml Inhal Susp UD IH SCH ×2 (07:13→20:24)
--- NOTE | 2018-09-10 07:41 | PN ---
DATE: 09/09/2018 DIALYSIS PROGRESS NOTE SUBJECTIVE: This 82-year-old male is currently dialyzing via a right femoral dialysis catheter. He is currently tolerating blood flow rates of 250 mL and will shortly be increased to 300 mL per minute. Current blood pressure is 101/59. His pulse rate is 120 in the setting of chronic AFib, I am aiming for 1/2 kg of fluid removal. He remains on a 4 K bath. Predialysis BUN was greater than 120 and we will check a post-dialysis basic metabolic panel as well as a comprehensive metabolic panel in the a.m. I will also add calcium acetate to his NG tube medication list given his current phosphorous levels of 7.6. Sara Ramirez MD MTDD
--- NOTE | 2018-09-10 09:21 | RAD ---
Date of service: 09/10/2018 HISTORY: f/u COMPARISON: 09/09/2018 FINDINGS: LUNGS: No active pulmonary disease. PLEURA: Small left effusion CARDIOVASCULAR: Aortic calcification Normal cardiac size. No pulmonary vascular congestion. OSSEOUS STRUCTURES: No significant abnormalities. VISUALIZED UPPER ABDOMEN: Normal. OTHER FINDINGS: Central lines and tubes unchanged IMPRESSION: Small left effusion
--- NOTE | 2018-09-10 09:27 | PN ---
DATE: 09/10/2018(640AM-730AM) PULMONARY NOTE SUBJECTIVE: The patient remains in the ICU and on the ventilator. He is less sedated, but appears very lethargic. PHYSICAL EXAMINATION: Vitals: Temperature is 97.8, pulse on the monitor is 115, respiratory rate 20/20, last blood pressure recorded is 105/66. HEENT: Normocephalic. Positive tracheostomy. No JVD. CARDIOVASCULAR: Systolic ejection murmur at the lower left sternal border. Questionable S3 gallop. LUNGS: Decreased breath sounds at the bases (much improved overall). Less rhonchi. No wheezing. EXTREMITIES: Mild edema. No cyanosis, no clubbing. GI: Abdomen is soft and nondistended. Abdomen is postoperative. SKIN: No acute rash. NEUROLOGIC: Exam limited at the present time. PERTINENT LABORATORY DATA: Chest x-ray was done this morning and reviewed. Again, it is a poor, rotated portable film. There is no significant change compared to yesterday's film. Arterial blood gas was done on PRVC 20, tidal volume 400, FIO2 30%. Results are: PH 7.42, pCO2 of 30, pO2 of 114. IMPRESSION 1. Recurrent left lung atelectasis. 2. Congestive heart failure. 3. Atrial fibrillation. 4. Intra-abdominal perforation. 5. Status post right hemicolectomy. 6. Advanced chronic obstructive pulmonary disease. 7. Anemia, thrombocytopenia. 8. Renal insufficiency. PLAN: The patient remains in the ICU. He remains on the ventilator. He is less sedated. He appears very lethargic this morning. I did discuss the case with the night nurse at length. The night nurse stated that the patient is doing poorly overall. The Diprivan drip has been stopped. I did review the chest x-ray as above. The chest x-ray is very similar to yesterday's film. I will continue to follow serial chest x-rays. I have also reviewed the arterial blood gas. The arterial blood gasses have actually improved overall - with a decrease in the alveolar-arterial gradient. I will discuss possible weaning trials with the ICU team later this morning. On physical exam, there is certainly less bronchospasm noted. I will continue the current nebulizer treatments for now. Again, the patient remains on intravenous hydrocortisone.. Inputs by Infectious Disease, Surgery,Internal Medicine, and Renal are also noted. The patient remains critically ill, with overall very guarded/poor prognosis. I will discuss the above with the entire ICU team in the next few moments. I will also discuss the above with the attending physician later this morning. Rosalio Blevins MD MTDD
--- NOTE | 2018-09-10 10:05 | CP.PCM.PN ---
<BrettCourtney - Last Filed: 09/10/18 10:09> Subjective - Date & Time of Evaluation Date of Evaluation: 09/10/18 Time of Evaluation: 07:00 - Subjective Subjective: General Surgery Dr. Du Pt S&E @bedside. Pt underwent trialysis catheter placement yesterday for urgent HD. pt tolerated dialysis well. weaned off vasopressin. no acute events overnight. pt afebrile x24hrs. pt on light sedation. levophed running at 4mcg/hr. nonverbal, unable to follow commands, though more alter than yesterday. ROS unobtainable. Fabian 300cc x24hrs Objective - Vital Signs/Intake and Output Vital Signs (last 24 hours): Temp Pulse Resp BP Pulse Ox 97.8 F 123 H 24 105/66 100 09/10/18 04:00 09/10/18 06:00 09/10/18 07:27 09/09/18 18:45 09/10/18 07:27 Intake and Output: 09/10/18 09/10/18 06:59 18:59 Intake Total 3718 Output Total 1200 Balance 2518 - Medications Medications: Current Medications Acetylcysteine (Acetylcysteine 20%) 4 ml IH [id number] [facility] Last Admin: 09/04/18 20:05 Dose: Not Given Aspirin (Aspirin Chewable) 81 mg PO DAILY [facility] Last Admin: 09/09/18 09:56 Dose: 81 mg Budesonide (Pulmicort Respules) 0.5 mg IH [id number] [facility] Last Admin: 09/10/18 07:13 Dose: 0.5 mg Calcium Acetate (Phoslo) 667 mg GT TID [facility] Dextrose (Dextrose 50% Inj) 0 ml IV STAT PRN; Protocol PRN Reason: Hypoglycemia Protocol Famotidine (Pepcid) 20 mg PO DAILY [facility] Last Admin: 09/09/18 09:56 Dose: 20 mg Heparin Sodium (Porcine) (Heparin) 5,000 units SC Q8 [facility]; Protocol Last Admin: 09/10/18 05:19 Dose: 5,000 units Hydrocortisone Sodium Succinate (Solu-Cortef) 50 mg IVP Q12H [facility] Last Admin: 09/09/18 21:29 Dose: 50 mg Hydromorphone HCl (Dilaudid) 0.5 mg IVP Q4H PRN PRN Reason: Pain, moderate (4-7) Propofol (Diprivan) 1,000 mg in 100 mls @ 1.757 mls/hr IV .Q24H PRN; Protocol PRN Reason: TITRATE PER MD ORDER Last Titration: 09/08/18 09:00 Dose: 0 mcg/kg/min, 0 mls/hr Dextrose (Dextrose 5% In Water 1000 Ml) 1,000 mls @ 0 mls/hr IV .Q0M PRN; Protocol PRN Reason: Hypoglycemia Protocol Last Admin: 09/08/18 10:00 Dose: 100 mls/hr NOREPINEPHRINE BIT/0.9 % NACL (Levophed 4 Mg/ 250 Ml Ns Premixed) 4 mg in 250 mls @ 15 mls/hr IV .[id number] [facility]; Protocol Last Admin: 09/10/18 05:18 Dose: 2 mcg/min, 7.5 mls/hr Vasopressin 20 units/ Dextrose 101 mls @ 9.09 mls/hr IV .Q11H7M [facility]; Protocol Last Admin: 09/09/18 05:31 Dose: 9.09 mls/hr Dextrose (Dextrose 5% In Water 1000 Ml) 1,000 mls @ 100 mls/hr IV .Q10H [facility] Last Admin: 09/09/18 21:29 Dose: 100 mls/hr Daptomycin 610 mg/ Sodium (Chloride) 100 mls @ 200 mls/hr IV Q24H [facility] Stop: 09/13/18 13:16 Meropenem (Merrem Iv 1 Gm Premix) 1 gm in 50 mls @ 100 mls/hr IVPB 0600,1800 [facility]; Protocol Stop: 09/11/18 09:09 Last Admin: 09/10/18 05:17 Dose: 100 mls/hr Insulin Human Regular (Humulin R Low) 0 units SC Q6 [facility]; Protocol Last Admin: 09/10/18 08:51 Dose: 1 units Levalbuterol HCl (Xopenex) 0.63 mg IH [id number] [facility] Last Admin: 09/10/18 07:13 Dose: 0.63 mg Vancomycin HCl (Vancocin 25 Mg/Ml (Oral Use)) 250 mg PO QID [facility]; Protocol Last Admin: 09/09/18 22:00 Dose: 250 mg Verapamil HCl (Verapamil Inj) 2.5 mg IVP Q6H PRN PRN Reason: for heart rate >130 Last Admin: 09/10/18 05:20 Dose: 2.5 mg Verapamil HCl (Calan Tab) 40 mg PO Q8H [facility] Last Admin: 09/10/18 05:19 Dose: Not Given - Labs Labs: 09/10/18 06:00 09/10/18 06:00 PT 15.1 SECONDS (9.4-12.5) H 09/06/18 05:01 INR 1.31 09/06/18 05:01 APTT 31.7 Seconds (25.1-36.5) 09/06/18 05:01 - Constitutional Appears: Toxic, Chronically Ill - Head Exam Head Exam: NORMAL INSPECTION - Eye Exam Eye Exam: Normal appearance - ENT Exam ENT Exam: Mucous Membranes Moist - Neck Exam Additional comments: tracheostomy in place, functioning appropriately - Respiratory Exam Respiratory Exam: NORMAL BREATHING PATTERN. absent: Accessory Muscle Use, Respiratory Distress - Cardiovascular Exam Cardiovascular Exam: Tachycardia, Irregular Rhythm. absent: Bradycardia - GI/Abdominal Exam GI & Abdominal Exam: Soft. absent: Distended, Firm, Guarding, Rigid, Tenderness, Rebound Additional comments: incisions c/d/i. fabian drain w/ serous drainage ostomy w/ stool present - Exam Additional comments: [place] catheter in place L groin dressing c/d/i R groin dressing stained, loose. trialysis catheter in place - Extremities Exam Additional comments: 2+ pitting edema B/L UE/LE - Neurological Exam Neurological Exam: Altered - Psychiatric Exam Additional comments: unable to assess - Skin Skin Exam: Dry, Intact, Normal Color, Warm Assessment and Plan - Assessment and Plan (Free Text) Assessment: 82 y/o M w/ ventilatory dependent respiratory failure s/p tracheostomy POD#2 s/p ex lap w/ ileal perforation w/ resolved VRE+ peritonitis Plan: - wean pressors for goal MAP >65 - dialysis as per Nephrology recs - Cont tube feeds - Vent weaning per ICU - IV Abx per ID - Monitor drain and ostomy output - pulmonary toilet - cont daily labs - Replete electrolytes as needed Further recommendations per Dr. Florian West DO PGY3 <Rocael Du - Last Filed: 09/10/18 11:35> Objective - Vital Signs/Intake and Output Vital Signs (last 24 hours): Temp Pulse Resp BP Pulse Ox 97.8 F 147 H 24 115/54 L 98 09/10/18 04:00 09/10/18 10:56 09/10/18 07:27 09/10/18 10:56 09/10/18 10:56 Intake and Output: 09/10/18 09/10/18 06:59 18:59 Intake Total 3718 Output Total 1200 Balance 2518 - Medications Medications: Current Medications Acetylcysteine (Acetylcysteine 20%) 4 ml IH [id number] [facility] Last Admin: 09/04/18 20:05 Dose: Not Given Aspirin (Aspirin Chewable) 81 mg PO DAILY [facility] Last Admin: 09/09/18 09:56 Dose: 81 mg Budesonide (Pulmicort Respules) 0.5 mg IH [id number] [facility] Last Admin: 09/10/18 07:13 Dose: 0.5 mg Calcium Acetate (Phoslo) 667 mg GT TID [facility] Dextrose (Dextrose 50% Inj) 0 ml IV STAT PRN; Protocol PRN Reason: Hypoglycemia Protocol Famotidine (Pepcid) 20 mg PO DAILY [facility] Last Admin: 09/09/18 09:56 Dose: 20 mg Heparin Sodium (Porcine) (Heparin) 5,000 units SC Q8 [facility]; Protocol Last Admin: 09/10/18 05:19 Dose: 5,000 units Hydrocortisone Sodium Succinate (Solu-Cortef) 50 mg IVP Q12H [facility] Last Admin: 09/09/18 21:29 Dose: 50 mg Hydromorphone HCl (Dilaudid) 0.5 mg IVP Q4H PRN PRN Reason: Pain, moderate (4-7) Propofol (Diprivan) 1,000 mg in 100 mls @ 1.757 mls/hr IV .Q24H PRN; Protocol PRN Reason: TITRATE PER MD ORDER Last Titration: 09/08/18 09:00 Dose: 0 mcg/kg/min, 0 mls/hr Dextrose (Dextrose 5% In Water 1000 Ml) 1,000 mls @ 0 mls/hr IV .Q0M PRN; Protocol PRN Reason: Hypoglycemia Protocol Last Admin: 09/08/18 10:00 Dose: 100 mls/hr Vasopressin 20 units/ Dextrose 101 mls @ 9.09 mls/hr IV .Q11H7M [facility]; Protocol Last Admin: 09/09/18 05:31 Dose: 9.09 mls/hr Daptomycin 610 mg/ Sodium (Chloride) 100 mls @ 200 mls/hr IV Q24H [facility] Stop: 09/13/18 13:16 Meropenem (Merrem Iv 1 Gm Premix) 1 gm in 50 mls @ 100 mls/hr IVPB 0600,1800 [facility]; Protocol Stop: 09/11/18 09:09 Last Admin: 09/10/18 05:17 Dose: 100 mls/hr Phenylephrine HCl 40 mg/ (Dextrose) 254 mls @ 38.1 mls/hr IV .Q6H40M PRN; Protocol PRN Reason: TITRATE PER MD ORDER Dextrose (Dextrose 5% In Water 1000 Ml) 1,000 mls @ 75 mls/hr IV .[id number] [facility] Insulin Human Regular (Humulin R Low) 0 units SC Q6 [facility]; Protocol Last Admin: 09/10/18 08:51 Dose: 1 units Levalbuterol HCl (Xopenex) 0.63 mg IH [id number] [facility] Last Admin: 09/10/18 07:13 Dose: 0.63 mg Vancomycin HCl (Vancocin 25 Mg/Ml (Oral Use)) 250 mg PO QID [facility]; Protocol Last Admin: 09/09/18 22:00 Dose: 250 mg Verapamil HCl (Verapamil Inj) 2.5 mg IVP Q6H PRN PRN Reason: for heart rate >130 Last Admin: 09/10/18 05:20 Dose: 2.5 mg Verapamil HCl (Calan Tab) 40 mg PO Q8H [facility] Last Admin: 09/10/18 05:19 Dose: Not Given - Labs Labs: 09/10/18 06:00 09/10/18 06:00 PT 15.1 SECONDS (9.4-12.5) H 09/06/18 05:01 INR 1.31 09/06/18 05:01 APTT 31.7 Seconds (25.1-36.5) 09/06/18 05:01 Assessment and Plan - Assessment and Plan (Free Text) Plan: dialysis flow not optimum-? heart rate 130-150/16cm catheter not in vena cava Changing to 20 cm triple catheter/heparin flush all limbs Prognosis grave-family wishes trial for now C/S pending-sepsis presumptively Central Lines(NOT drawn at time of fever- ?Reason) Kiko Du MD FACS
--- NOTE | 2018-09-10 10:54 | CP.PCM.PN ---
<Andria Vernon - Last Filed: 09/10/18 12:51> Subjective - Date & Time of Evaluation Date of Evaluation: 09/10/18 Time of Evaluation: 09:00 - Subjective Subjective: Progress Note for ID Service - Dr. Quispe Patient was seen and examined at bedside. Pt was undergoing HD at the time of visit. Pt is awake and able to follow commands. Pt tolerated HD session yesterday. Low grade fever overnight. Objective - Vital Signs/Intake and Output Vital Signs (last 24 hours): Temp Pulse Resp BP Pulse Ox 97.8 F 123 H 24 105/66 100 09/10/18 04:00 09/10/18 06:00 09/10/18 07:27 09/09/18 18:45 09/10/18 07:27 Intake and Output: 09/10/18 09/10/18 06:59 18:59 Intake Total 3718 Output Total 1200 Balance 2518 - Medications Medications: Current Medications Acetylcysteine (Acetylcysteine 20%) 4 ml IH [id number] [facility] Last Admin: 09/04/18 20:05 Dose: Not Given Aspirin (Aspirin Chewable) 81 mg PO DAILY [facility] Last Admin: 09/09/18 09:56 Dose: 81 mg Budesonide (Pulmicort Respules) 0.5 mg IH [id number] [facility] Last Admin: 09/10/18 07:13 Dose: 0.5 mg Calcium Acetate (Phoslo) 667 mg GT TID [facility] Dextrose (Dextrose 50% Inj) 0 ml IV STAT PRN; Protocol PRN Reason: Hypoglycemia Protocol Famotidine (Pepcid) 20 mg PO DAILY [facility] Last Admin: 09/09/18 09:56 Dose: 20 mg Heparin Sodium (Porcine) (Heparin) 5,000 units SC Q8 [facility]; Protocol Last Admin: 09/10/18 05:19 Dose: 5,000 units Hydrocortisone Sodium Succinate (Solu-Cortef) 50 mg IVP Q12H [facility] Last Admin: 09/09/18 21:29 Dose: 50 mg Hydromorphone HCl (Dilaudid) 0.5 mg IVP Q4H PRN PRN Reason: Pain, moderate (4-7) Propofol (Diprivan) 1,000 mg in 100 mls @ 1.757 mls/hr IV .Q24H PRN; Protocol PRN Reason: TITRATE PER MD ORDER Last Titration: 09/08/18 09:00 Dose: 0 mcg/kg/min, 0 mls/hr Dextrose (Dextrose 5% In Water 1000 Ml) 1,000 mls @ 0 mls/hr IV .Q0M PRN; Protocol PRN Reason: Hypoglycemia Protocol Last Admin: 09/08/18 10:00 Dose: 100 mls/hr NOREPINEPHRINE BIT/0.9 % NACL (Levophed 4 Mg/ 250 Ml Ns Premixed) 4 mg in 250 mls @ 15 mls/hr IV .[id number] [facility]; Protocol Last Admin: 09/10/18 05:18 Dose: 2 mcg/min, 7.5 mls/hr Vasopressin 20 units/ Dextrose 101 mls @ 9.09 mls/hr IV .Q11H7M [facility]; Protocol Last Admin: 09/09/18 05:31 Dose: 9.09 mls/hr Dextrose (Dextrose 5% In Water 1000 Ml) 1,000 mls @ 100 mls/hr IV .Q10H [facility] Last Admin: 09/09/18 21:29 Dose: 100 mls/hr Daptomycin 610 mg/ Sodium (Chloride) 100 mls @ 200 mls/hr IV Q24H [facility] Stop: 09/13/18 13:16 Meropenem (Merrem Iv 1 Gm Premix) 1 gm in 50 mls @ 100 mls/hr IVPB 0600,1800 [facility]; Protocol Stop: 09/11/18 09:09 Last Admin: 09/10/18 05:17 Dose: 100 mls/hr Insulin Human Regular (Humulin R Low) 0 units SC Q6 [facility]; Protocol Last Admin: 09/10/18 08:51 Dose: 1 units Levalbuterol HCl (Xopenex) 0.63 mg IH [id number] [facility] Last Admin: 09/10/18 07:13 Dose: 0.63 mg Vancomycin HCl (Vancocin 25 Mg/Ml (Oral Use)) 250 mg PO QID [facility]; Protocol Last Admin: 09/09/18 22:00 Dose: 250 mg Verapamil HCl (Verapamil Inj) 2.5 mg IVP Q6H PRN PRN Reason: for heart rate >130 Last Admin: 09/10/18 05:20 Dose: 2.5 mg Verapamil HCl (Calan Tab) 40 mg PO Q8H [facility] Last Admin: 09/10/18 05:19 Dose: Not Given - Labs Labs: 09/10/18 06:00 09/10/18 06:00 PT 15.1 SECONDS (9.4-12.5) H 09/06/18 05:01 INR 1.31 09/06/18 05:01 APTT 31.7 Seconds (25.1-36.5) 09/06/18 05:01 - Constitutional Appears: Chronically Ill - Head Exam Head Exam: ATRAUMATIC, NORMAL INSPECTION, NORMOCEPHALIC - Eye Exam Eye Exam: EOMI, PERRL - ENT Exam ENT Exam: Mucous Membranes Dry - Neck Exam Additional comments: +trach - Respiratory Exam Respiratory Exam: Decreased Breath Sounds. absent: Rhonchi, Wheezes - Cardiovascular Exam Cardiovascular Exam: Tachycardia, +S1, +S2 - GI/Abdominal Exam GI & Abdominal Exam: Hypoactive Bowel Sounds - Neurological Exam Neurological Exam: Alert, Awake, CN II-XII Intact - Skin Skin Exam: Dry, Intact, Normal Color, Warm Assessment and Plan - Assessment and Plan (Free Text) Assessment: 82 M with a PMHx of rectal adenocarcinoma s/p hemicolectomy admitted to the ICU with vent dependent respiratory failure secondary to sepsis due to perforated ileum s/p ex-lap and resection of terminal ileum and primary anastomosis. Pt required emergent HD, second session today. Pressors have been weaned, still remains on support. Solucortef tapered. CT Abd negative for intrab abscess 1. ventilator-dependent respiratory failure 2. severe sepsis secondary perforated ileum s/p ex-lap 3. VRE stool 4. r/o hcap and line-related infection 5. Rectal Cancer 6. Atrial fibrillation 7. CAD 8. CHF, chronic 9. GERD -Continue with meropenem (Day 9) and daptomycin (day 5) to ro VRE bacteremia PO vanco 250mg QID -FU wound cx 48hrs -IV lines have to be removed and replaced -CXR reviewed, small pleural effusion, fu possible PNA -Continue current management as per ICU/Surgical teams -Overall prognosis remains poor Patient seen and case discussed/reviewed with attending, Dr. Quispe <Barry Quispe - Last Filed: 09/10/18 18:04> Objective - Vital Signs/Intake and Output Vital Signs (last 24 hours): Temp Pulse Resp BP Pulse Ox 98.7 F 115 H 24 131/52 L 76 L 09/10/18 12:00 09/10/18 17:17 09/10/18 07:27 09/10/18 17:17 09/10/18 13:45 Intake and Output: 09/10/18 09/10/18 06:59 18:59 Intake Total 3718 254 Output Total 1200 Balance 2518 254 - Medications Medications: Current Medications Acetylcysteine (Acetylcysteine 20%) 4 ml IH [id number] [facility] Last Admin: 09/04/18 20:05 Dose: Not Given Aspirin (Aspirin Chewable) 81 mg PO DAILY [facility] Last Admin: 09/10/18 11:54 Dose: 81 mg Budesonide (Pulmicort Respules) 0.5 mg IH [id number] [facility] Last Admin: 09/10/18 07:13 Dose: 0.5 mg Calcium Acetate (Phoslo) 667 mg GT TID [facility] Last Admin: 09/10/18 17:33 Dose: 667 mg Dextrose (Dextrose 50% Inj) 0 ml IV STAT PRN; Protocol PRN Reason: Hypoglycemia Protocol Famotidine (Pepcid) 20 mg PO DAILY [facility] Last Admin: 09/10/18 11:54 Dose: 20 mg Heparin Sodium (Porcine) (Heparin) 5,000 units SC Q8 [facility]; Protocol Last Admin: 09/10/18 13:33 Dose: 5,000 units Heparin Sodium (Porcine) (Heparin) 5,000 units IV POSTDI PRN PRN Reason: CATH PROPH Hydrocortisone Sodium Succinate (Solu-Cortef) 50 mg IVP Q12H [facility] Last Admin: 09/10/18 11:54 Dose: 50 mg Hydromorphone HCl (Dilaudid) 0.5 mg IVP Q4H PRN PRN Reason: Pain, moderate (4-7) Last Admin: 09/10/18 17:31 Dose: 0.5 mg Propofol (Diprivan) 1,000 mg in 100 mls @ 1.757 mls/hr IV .Q24H PRN; Protocol PRN Reason: TITRATE PER MD ORDER Last Titration: 09/08/18 09:00 Dose: 0 mcg/kg/min, 0 mls/hr Dextrose (Dextrose 5% In Water 1000 Ml) 1,000 mls @ 0 mls/hr IV .Q0M PRN; Protocol PRN Reason: Hypoglycemia Protocol Last Admin: 09/08/18 10:00 Dose: 100 mls/hr Vasopressin 20 units/ Dextrose 101 mls @ 9.09 mls/hr IV .Q11H7M [facility]; Protocol Last Admin: 09/09/18 05:31 Dose: 9.09 mls/hr Daptomycin 610 mg/ Sodium (Chloride) 100 mls @ 200 mls/hr IV Q24H [facility] Stop: 09/13/18 13:16 Last Admin: 09/10/18 13:23 Dose: 200 mls/hr Meropenem (Merrem Iv 1 Gm Premix) 1 gm in 50 mls @ 100 mls/hr IVPB 0600,1800 [facility]; Protocol Stop: 09/11/18 09:09 Last Admin: 09/10/18 17:16 Dose: 100 mls/hr Phenylephrine HCl 40 mg/ (Dextrose) 254 mls @ 38.1 mls/hr IV .Q6H40M PRN; Protocol PRN Reason: TITRATE PER MD ORDER Last Titration: 09/10/18 18:01 Dose: Infused Dextrose (Dextrose 5% In Water 1000 Ml) 1,000 mls @ 75 mls/hr IV .[id number] [facility] Last Admin: 09/10/18 12:31 Dose: 75 mls/hr Insulin Human Regular (Humulin R Low) 0 units SC Q6 [facility]; Protocol Last Admin: 09/10/18 12:22 Dose: Not Given Levalbuterol HCl (Xopenex) 0.63 mg IH [id number] [facility] Last Admin: 09/10/18 13:31 Dose: 0.63 mg Vancomycin HCl (Vancocin 25 Mg/Ml (Oral Use)) 250 mg PO QID [facility]; Protocol Last Admin: 09/10/18 17:17 Dose: 250 mg Verapamil HCl (Verapamil Inj) 2.5 mg IVP Q6H PRN PRN Reason: for heart rate >130 Last Admin: 09/10/18 05:20 Dose: 2.5 mg Verapamil HCl (Calan Tab) 40 mg PO Q8H [facility] Last Admin: 09/10/18 17:17 Dose: 40 mg - Labs Labs: 09/10/18 06:00 09/10/18 06:00 PT 15.1 SECONDS (9.4-12.5) H 09/06/18 05:01 INR 1.31 09/06/18 05:01 APTT 31.7 Seconds (25.1-36.5) 09/06/18 05:01 Assessment and Plan - Assessment and Plan (Free Text) Assessment: Infectious diseases Attending Physician Attestation Patient seen and examined, discussed with behavioral medical director. I have reviewed the patient's history of present illness, past medical, social, personal and family histories, pertinent physical exam findings, course so far in this hospital admission, pertinent laboratory and imaging results. I agree with the above findings, assessment and plan. In addition, will continue Daptomycin, Merrem and intermittent Vanco IV for severe sepsis intially from perforated ileum with VRE, now with possible HCAP, R/O line-related infection S/P line removal. Follow up final culture results. Overall prognosis is poor. Discussed with Dr. Du.
--- NOTE | 2018-09-10 11:10 | CP.CCUPN ---
<Godfrey Lehman - Last Filed: 09/10/18 11:53> CCU Subjective - Physician Review Subjective (Free Text): Godfrey Lehman, PGY1 ICU Progress Note for Dr. Cisneros Patient was seen and examined at bedside this morning. He is currently off sedation. Levophed is running at a rate of 4 mcg/min. Patient is still on ventilation via trachestomy tube: PRVC 400/20/5/30%. Mcintosh in place, draining 100cc. Dialysis catheter in R-groin was placed yesterday. He was currently receiving dialysis during time of interview. Patient had first HD session yesterday for 2.5 hours. R-IJ access in place, NG in place, ostomy bag and RUSSELL in place. HR was noted to be 150s during time of interview. Patient is awake, alert, following commands, and moves extremities spontaneously. No fevers overnight. ROS unable to be obtained due to patient's critical condition. CCU Objective - Vital Signs / Intake & Output Vital Signs (Last 4 hours): Vital Signs Pulse Resp BP Pulse Ox 09/10/18 10:56 147 H 115/54 L 98 09/10/18 10:45 150 H 121/56 L 100 09/10/18 10:38 142 H 100/62 100 09/10/18 10:30 128 H 117/59 L 100 09/10/18 10:25 126 H 118/52 L 100 09/10/18 10:21 126 H 121/68 100 09/10/18 10:15 124 H 124/73 100 09/10/18 10:00 126 H 112/64 100 09/10/18 09:45 132 H 114/64 100 09/10/18 09:30 133 H 125/58 L 100 09/10/18 09:15 139 H 115/66 100 09/10/18 09:11 145 H 102/53 L 100 09/10/18 09:04 138 H 112/50 L 100 09/10/18 09:00 136 H 90/60 L 100 09/10/18 08:56 132 H 116/58 L 100 09/10/18 08:47 133 H 100/66 100 09/10/18 08:45 87/64 L 09/10/18 08:44 134 H 97 09/10/18 08:30 139 H 121/66 100 09/10/18 08:15 126 H 115/61 100 09/10/18 08:00 128 H 107/68 100 09/10/18 07:45 116 H 119/55 L 99 09/10/18 07:41 108 H 123/60 100 09/10/18 07:30 115 H 112/63 100 09/10/18 07:27 24 100 09/10/18 07:15 123 H 117/77 100 Intake and Output (Last 8hrs): Intake & Output 09/09/18 09/10/18 09/10/18 22:59 06:59 14:59 Intake Total 2278 3600 Output Total 1150 1200 Balance 1128 2400 Weight 64.41 kg Intake: IV 1628 2950 0.9 ns 1200 Left Upper arm 1500 Right Internal Jugular 1510 Oral 150 150 Tube Feeding 500 500 Output: Drainage 550 550 Colostomy 400 400 Right Abdomen 150 150 Urine 600 600 Condom 600 600 Other 50 Other: # Bowel Movements 0 - Physical Exam Head: Positive for: Atraumatic, Normocephalic, Other (R-IJ in place. ) Pupils: Positive for: Sluggish Extroacular Muscles: Positive for: EOMI Mouth: Positive for: Moist Mucous Membranes Pharnyx: Positive for: Normal Nose (External): Positive for: Other (NG tube in place) Neck: Positive for: Other (Tracheostomy tube in place). Negative for: JVD, Lymphadenopathy, Bruit Respiratory/Chest: Positive for: Clear to Auscultation. Negative for: Respiratory Distress, Accessory Muscle Use, Wheezes, Rales, Rhonchi Cardiovascular: Positive for: Peripheal Pulses Present, Tachycardic Abdomen: Positive for: Normal Bowel Sounds, Other ( Colostomy bag in place). Negative for: Tenderness, Distention, Peritoneal Signs, Rebound, Mass/Organomegaly Genitourinary Male: Positive for: Other (Mcintosh in place. Shiley catheter in the R-groin. ) Upper Extremity: Positive for: NORMAL PULSES. Negative for: Edema Lower Extremity: Positive for: NORMAL PULSES, Other (No pitting edema noted on bilateral low ext. ). Negative for: Edema, CALF TENDERNESS Skin: Positive for: Warm, Dry, Normal Color Psychiatric: Positive for: Alert. Negative for: Oriented x 3 - Medications Active Medications: Active Medications Generic Name Dose Route Start Last Admin Trade Name Freq PRN Reason Stop Dose Admin Acetylcysteine 4 ml 09/02/18 08:00 09/04/18 20:05 Acetylcysteine 20% IH Not Given [id number] Aspirin 81 mg 09/05/18 11:30 09/09/18 09:56 Aspirin Chewable PO 81 mg DAILY KD Administration Budesonide 0.5 mg 08/13/18 08:00 09/10/18 07:13 Pulmicort Respules IH 0.5 mg [id number] KD Administration Calcium Acetate 667 mg 09/10/18 10:00 Phoslo GT TID KD Dextrose 0 ml 09/05/18 15:56 Dextrose 50% Inj IV STAT PRN Hypoglycemia Protocol Protocol Famotidine 20 mg 08/21/18 10:00 09/09/18 09:56 Pepcid PO 20 mg DAILY KD Administration Heparin Sodium (Porcine) 5,000 units 09/08/18 14:00 09/10/18 05:19 Heparin SC 5,000 units Q8 KD Administration Protocol Hydrocortisone Sodium Succinate 50 mg 09/09/18 08:45 09/09/18 21:29 Solu-Cortef IVP 50 mg Q12H KD Administration Hydromorphone HCl 0.5 mg 09/10/18 09:50 Dilaudid IVP Q4H PRN Pain, moderate (4-7) Propofol 1,000 mg in 100 mls @ 1.757 mls/hr 09/02/18 09:00 09/08/18 09:00 Diprivan IV 0 mcg/kg/min .Q24H PRN 0 mls/hr TITRATE PER MD ORDER Titration Protocol 5 MCG/KG/MIN Dextrose 1,000 mls @ 0 mls/hr 09/05/18 15:56 09/08/18 10:00 Dextrose 5% In Water 1000 Ml IV 100 mls/hr .Q0M PRN Administration Hypoglycemia Protocol Protocol Per Protocol Vasopressin 20 units/ Dextrose 101 mls @ 9.09 mls/hr 09/08/18 18:45 09/09/18 05:31 IV 9.09 mls/hr .Q11H7M KD Administration Protocol 0.03 U/MIN Daptomycin 610 mg/ Sodium 100 mls @ 200 mls/hr 09/10/18 13:15 Chloride IV 09/13/18 13:16 Q24H KD Meropenem 1 gm in 50 mls @ 100 mls/hr 09/09/18 18:00 09/10/18 05:17 Merrem Iv 1 Gm Premix IVPB 09/11/18 09:09 100 mls/hr 0600,1800 [facility] Administration Protocol Phenylephrine HCl 40 mg/ 254 mls @ 38.1 mls/hr 09/10/18 10:52 Dextrose IV .Q6H40M PRN TITRATE PER MD ORDER Protocol 100 MCG/MIN Dextrose 1,000 mls @ 75 mls/hr 09/10/18 10:55 Dextrose 5% In Water 1000 Ml IV .[id number] [facility] Insulin Human Regular 0 units 09/03/18 12:00 09/10/18 08:51 Humulin R Low SC 1 units Q6 [facility] Administration Protocol Levalbuterol HCl 0.63 mg 08/18/18 08:00 09/10/18 07:13 Xopenex IH 0.63 mg [id number] [facility] Administration Vancomycin HCl 250 mg 09/08/18 18:00 09/09/18 22:00 Vancocin 25 Mg/Ml (Oral Use) PO 250 mg QID [facility] Administration Protocol Verapamil HCl 2.5 mg 08/31/18 09:03 09/10/18 05:20 Verapamil Inj IVP 2.5 mg Q6H PRN Administration for heart rate >130 Verapamil HCl 40 mg 09/08/18 18:15 09/10/18 05:19 Calan Tab PO Not Given Q8H [facility] - Patient Studies Lab Studies: Microbiology Studies 09/07/18 18:48 Body Fluid Culture - Preliminary Body Fluid - Abdominal Cavity NO GROWTH AFTER 2 DAYS 09/02/18 16:18 Mycobacterial Culture - Preliminary Other: Please Indicate 09/02/18 16:55 Mycobacterial Culture - Preliminary Other: Please Indicate 09/02/18 16:59 Mycobacterial Culture - Preliminary Other: Please Indicate 09/07/18 20:40 Gram Stain - Final Other: Please Indicate Wound Culture - Preliminary NO GROWTH AFTER 24 HOURS 09/07/18 08:16 Gram Stain - Final Sputum Induced Sputum Culture - Final Yeast Species 09/08/18 11:37 C. difficile Antigen & Toxins A,B - Final Stool 09/06/18 12:00 Blood Culture - Preliminary Blood NO GROWTH AFTER 3 DAYS 09/06/18 11:45 Blood Culture - Preliminary Blood NO GROWTH AFTER 3 DAYS 09/06/18 12:24 Catheter Tip Culture - Final Catheter Tip No growth. Lab Studies 09/10/18 09/10/18 09/10/18 Range/Units 08:47 06:00 06:00 WBC 22.3 H D (4.5-11.0) 10^3/uL RBC 3.44 L (3.5-6.1) 10^6/uL Hgb 10.4 L (14.0-18.0) g/dL Hct 32.3 L (42.0-52.0) % MCV 93.9 D (80.0-105.0) fl MCH 30.2 (25.0-35.0) pg MCHC 32.2 (31.0-37.0) g/dl RDW 19.9 H (11.5-14.5) % Plt Count 101 L (120.0-450.0) 10^3/uL MPV 11.4 H (7.0-11.0) fl pCO2 (35-45) mm/Hg pO2 (30-55) mm/Hg HCO3 (21-28) mmol/L ABG pH (7.35-7.45) ABG Total CO2 (22-28) mmol.L ABG O2 Saturation (95-98) % ABG O2 Content (15-23) ML/dl ABG Base Excess (-2.0-3.0) mmol/L ABG Hemoglobin (11.7-17.4) g/dL ABG Carboxyhemoglobin (0.5-1.5) % POC ABG HHb (Measured) (0-5) % ABG Methemoglobin (0.0-3.0) % ABG O2 Capacity (16-24) mL/dl VBG pH (7.32-7.43) VBG pCO2 (40-60) VBG HCO3 (21-28) mmol/l VBG Total CO2 (22-28) mmol.L VBG O2 Sat (Calc) (40-65) % VBG Base Excess (0.0-2.0) mmol/L VBG Potassium (3.6-5.2) mmol/L Hgb O2 Saturation (95.0-98.0) % Sodium 143 (132-148) mmol/L Chloride 112 H (98-107) mmol/L Glucose (75-110) mg/dl Lactate (0.7-2.1) mmol/L FiO2 % Crit Value Read Back Potassium 4.5 (3.6-5.0) mmol/L Carbon Dioxide 23 (21-33) mmol/L Anion Gap 12 (10-20) BUN 108 H (7-21) mg/dL Creatinine 1.5 (0.8-1.5) mg/dl Est GFR ( Amer) 54 Est GFR (Non-Af Amer) 45 POC Glucose (mg/dL) 198 H (65-110) mg/dL Random Glucose 162 H (70-110) mg/dL Calcium 7.2 L (8.4-10.5) mg/dL Phosphorus 5.6 H (2.5-4.5) mg/dL Magnesium 2.6 H (1.7-2.2) mg/dL Total Bilirubin 3.8 H (0.2-1.3) mg/dL AST 41 (17-59) U/L ALT 62 H (7-56) U/L Alkaline Phosphatase 62 (38-126) U/L Total Protein 4.2 L (5.8-8.3) g/dL Albumin 2.1 L (3.0-4.8) g/dL Globulin 2.1 gm/dL Albumin/Globulin Ratio 1.0 L (1.1-1.8) Venous Blood Potassium (3.6-5.2) mmol/L 09/10/18 09/10/18 09/09/18 Range/Units 01:00 00:02 20:35 WBC (4.5-11.0) 10^3/uL RBC (3.5-6.1) 10^6/uL Hgb (14.0-18.0) g/dL Hct (42.0-52.0) % MCV (80.0-105.0) fl MCH (25.0-35.0) pg MCHC (31.0-37.0) g/dl RDW (11.5-14.5) % Plt Count (120.0-450.0) 10^3/uL MPV (7.0-11.0) fl pCO2 30 L (35-45) mm/Hg pO2 114.0 H (30-55) mm/Hg HCO3 19.5 L (21-28) mmol/L ABG pH 7.42 (7.35-7.45) ABG Total CO2 20.4 L (22-28) mmol.L ABG O2 Saturation 99.6 H (95-98) % ABG O2 Content 13.4 L (15-23) ML/dl ABG Base Excess -4.2 L (-2.0-3.0) mmol/L ABG Hemoglobin 9.7 L (11.7-17.4) g/dL ABG Carboxyhemoglobin 2.4 H (0.5-1.5) % POC ABG HHb (Measured) 0.4 (0-5) % ABG Methemoglobin 0.8 (0.0-3.0) % ABG O2 Capacity 13.5 L (16-24) mL/dl VBG pH (7.32-7.43) VBG pCO2 (40-60) VBG HCO3 (21-28) mmol/l VBG Total CO2 (22-28) mmol.L VBG O2 Sat (Calc) (40-65) % VBG Base Excess (0.0-2.0) mmol/L VBG Potassium (3.6-5.2) mmol/L Hgb O2 Saturation 96.4 (95.0-98.0) % Sodium 143 (132-148) mmol/L Chloride 105 (98-107) mmol/L Glucose (75-110) mg/dl Lactate (0.7-2.1) mmol/L FiO2 30.0 % Crit Value Read Back Potassium 4.3 (3.6-5.0) mmol/L Carbon Dioxide 29 (21-33) mmol/L Anion Gap 13 (10-20) BUN 51 H (7-21) mg/dL Creatinine 0.8 (0.8-1.5) mg/dl Est GFR ( Amer) > 60 Est GFR (Non-Af Amer) > 60 POC Glucose (mg/dL) 221 H (65-110) mg/dL Random Glucose 156 H (70-110) mg/dL Calcium 7.5 L (8.4-10.5) mg/dL Phosphorus 3.0 (2.5-4.5) mg/dL Magnesium (1.7-2.2) mg/dL Total Bilirubin 4.0 H (0.2-1.3) mg/dL AST 65 H D (17-59) U/L ALT 72 H (7-56) U/L Alkaline Phosphatase 103 (38-126) U/L Total Protein 6.1 (5.8-8.3) g/dL Albumin 3.3 (3.0-4.8) g/dL Globulin 2.8 gm/dL Albumin/Globulin Ratio 1.2 (1.1-1.8) Venous Blood Potassium (3.6-5.2) mmol/L 09/09/18 09/09/18 09/09/18 Range/Units 17:48 11:56 10:30 WBC (4.5-11.0) 10^3/uL RBC (3.5-6.1) 10^6/uL Hgb (14.0-18.0) g/dL Hct (42.0-52.0) % MCV (80.0-105.0) fl MCH (25.0-35.0) pg MCHC (31.0-37.0) g/dl RDW (11.5-14.5) % Plt Count (120.0-450.0) 10^3/uL MPV (7.0-11.0) fl pCO2 (35-45) mm/Hg pO2 42 (30-55) mm/Hg HCO3 (21-28) mmol/L ABG pH (7.35-7.45) ABG Total CO2 (22-28) mmol.L ABG O2 Saturation (95-98) % ABG O2 Content (15-23) ML/dl ABG Base Excess (-2.0-3.0) mmol/L ABG Hemoglobin (11.7-17.4) g/dL ABG Carboxyhemoglobin (0.5-1.5) % POC ABG HHb (Measured) (0-5) % ABG Methemoglobin (0.0-3.0) % ABG O2 Capacity (16-24) mL/dl VBG pH 7.32 (7.32-7.43) VBG pCO2 41.0 (40-60) VBG HCO3 21.1 (21-28) mmol/l VBG Total CO2 22.4 (22-28) mmol.L VBG O2 Sat (Calc) 80.1 H (40-65) % VBG Base Excess -4.8 L (0.0-2.0) mmol/L VBG Potassium 4.4 (3.6-5.2) mmol/L Hgb O2 Saturation (95.0-98.0) % Sodium 146.0 (132-148) mmol/L Chloride 114.0 H (98-107) mmol/L Glucose 246 H (75-110) mg/dl Lactate 1.9 (0.7-2.1) mmol/L FiO2 21.0 % Crit Value Read Back Potassium (3.6-5.0) mmol/L Carbon Dioxide (21-33) mmol/L Anion Gap (10-20) BUN (7-21) mg/dL Creatinine (0.8-1.5) mg/dl Est GFR ( Amer) Est GFR (Non-Af Amer) POC Glucose (mg/dL) 203 H 232 H (65-110) mg/dL Random Glucose (70-110) mg/dL Calcium (8.4-10.5) mg/dL Phosphorus (2.5-4.5) mg/dL Magnesium (1.7-2.2) mg/dL Total Bilirubin (0.2-1.3) mg/dL AST (17-59) U/L ALT (7-56) U/L Alkaline Phosphatase (38-126) U/L Total Protein (5.8-8.3) g/dL Albumin (3.0-4.8) g/dL Globulin gm/dL Albumin/Globulin Ratio (1.1-1.8) Venous Blood Potassium 4.4 (3.6-5.2) mmol/L Laboratory Results - last 24 hr 09/09/18 09/09/18 09/09/18 10:30 11:56 17:48 WBC RBC Hgb Hct MCV MCH MCHC RDW Plt Count MPV pCO2 pO2 42 HCO3 ABG pH ABG Total CO2 ABG O2 Saturation ABG O2 Content ABG Base Excess ABG Hemoglobin ABG Carboxyhemoglobin POC ABG HHb (Measured) ABG Methemoglobin ABG O2 Capacity VBG pH 7.32 VBG pCO2 41.0 VBG HCO3 21.1 VBG Total CO2 22.4 VBG O2 Sat (Calc) 80.1 H VBG Base Excess -4.8 L VBG Potassium 4.4 Hgb O2 Saturation Sodium 146.0 Chloride 114.0 H Glucose 246 H Lactate 1.9 FiO2 21.0 Crit Value Read Back Potassium Carbon Dioxide Anion Gap BUN Creatinine Est GFR ( Amer) Est GFR (Non-Af Amer) POC Glucose (mg/dL) 232 H 203 H Random Glucose Calcium Phosphorus Magnesium Total Bilirubin AST ALT Alkaline Phosphatase Total Protein Albumin Globulin Albumin/Globulin Ratio Venous Blood Potassium 4.4 09/09/18 09/10/18 09/10/18 20:35 00:02 01:00 WBC RBC Hgb Hct MCV MCH MCHC RDW Plt Count MPV pCO2 30 L pO2 114.0 H HCO3 19.5 L ABG pH 7.42 ABG Total CO2 20.4 L ABG O2 Saturation 99.6 H ABG O2 Content 13.4 L ABG Base Excess -4.2 L ABG Hemoglobin 9.7 L ABG Carboxyhemoglobin 2.4 H POC ABG HHb (Measured) 0.4 ABG Methemoglobin 0.8 ABG O2 Capacity 13.5 L VBG pH VBG pCO2 VBG HCO3 VBG Total CO2 VBG O2 Sat (Calc) VBG Base Excess VBG Potassium Hgb O2 Saturation 96.4 Sodium 143 Chloride 105 Glucose Lactate FiO2 30.0 Crit Value Read Back Potassium 4.3 Carbon Dioxide 29 Anion Gap 13 BUN 51 H Creatinine 0.8 Est GFR ( Amer) > 60 Est GFR (Non-Af Amer) > 60 POC Glucose (mg/dL) 221 H Random Glucose 156 H Calcium 7.5 L Phosphorus 3.0 Magnesium Total Bilirubin 4.0 H AST 65 H D ALT 72 H Alkaline Phosphatase 103 Total Protein 6.1 Albumin 3.3 Globulin 2.8 Albumin/Globulin Ratio 1.2 Venous Blood Potassium 09/10/18 09/10/18 09/10/18 06:00 06:00 08:47 WBC 22.3 H D RBC 3.44 L Hgb 10.4 L Hct 32.3 L MCV 93.9 D MCH 30.2 MCHC 32.2 RDW 19.9 H Plt Count 101 L MPV 11.4 H pCO2 pO2 HCO3 ABG pH ABG Total CO2 ABG O2 Saturation ABG O2 Content ABG Base Excess ABG Hemoglobin ABG Carboxyhemoglobin POC ABG HHb (Measured) ABG Methemoglobin ABG O2 Capacity VBG pH VBG pCO2 VBG HCO3 VBG Total CO2 VBG O2 Sat (Calc) VBG Base Excess VBG Potassium Hgb O2 Saturation Sodium 143 Chloride 112 H Glucose Lactate FiO2 Crit Value Read Back Potassium 4.5 Carbon Dioxide 23 Anion Gap 12 BUN 108 H Creatinine 1.5 Est GFR ( Amer) 54 Est GFR (Non-Af Amer) 45 POC Glucose (mg/dL) 198 H Random Glucose 162 H Calcium 7.2 L Phosphorus 5.6 H Magnesium 2.6 H Total Bilirubin 3.8 H AST 41 ALT 62 H Alkaline Phosphatase 62 Total Protein 4.2 L Albumin 2.1 L Globulin 2.1 Albumin/Globulin Ratio 1.0 L Venous Blood Potassium Fingerstick Blood Sugar Results: 198 Review of Systems - Review of Systems Systems not reviewed;Unavailable: Acuity of Condition Critical Care Progress Note - Ventilator Checklist Head of Bed 30 Degrees: Yes Daily Sedation Vacation: Yes Daily Assessment of Readiness to Wean: Yes Daily Spontaneous Breathing Trial: Yes PUD Prophalyxis: Yes DVT Prophylaxis: Yes Oral Care with Chlorhexidine Gluconate {CHG}: Yes - Vent Settings MODE:: PRVC TIDAL VOLUME:: 400 RESP RATE:: 20 FIO2:: 30 PEEP:: 5 - Extremities/Vascular Does the Patient have a Central Venous Catheter?: Yes Insertion Site: Internal Jugular Vein Does the Patient need a Central Venous Catheter?: Yes Does the Patient have a Mcintosh Catheter?: Yes Does the Patient need a Mcintosh Catheter?: Yes Catheter Insertion Criteria: Need for accurate measurement of output in critically ill patient - Prophylaxis GI Prophylaxis GI: Pepsid - Prophylaxis DVT Prophylaxis DVT: Heparin SQ - Nutrition Nutrition: Nutrition Category Date Time Status NPO Diet [DIET] Diets 09/02/18 Lunch Ordered Assessment/Plan - Assessment and Plan (Free Text) Assessment: Patient is a 82 y/o male 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 Due to multiple bronchoscopies in the past and history of recurrent intubations, tracheostomy tube was placed. Patient also developed renal failure with uremia during hospital course, now receiving dialysis via dialysis catheter. Plan: Neuro: - Currently off sedation; mental status improved. Awake, alert, following commands, moves extremities. - maintain normothermia. Afebrile overnight. Pulm: - CXR (09/10): reviewed from previous; no changes - c/w PRVC and maintain proper ventilator management: HoB > 35 degrees, DVT/GI ppx, oral care, suctioning, daily weaning trials, low-intermediate tidal volume - s/p tracheostomy tube (09/07) - s/p elective brochoscopy (09/02) - c/w Prednisone, xopenex, pulmicort - Pulmonology is following, recs appreciated - Maintain SaO2 > 90% - Hx recurrent L-lung atelectasis and mucus plugging s/p bronchoscopy x3 - Hx of COPD and smoking Cardio: - Due to tachycardia (HR 150s), discontinued Levophed, started on Phenylephrine drip - c/w stress dose steroids - Afib is now rate controlled - c/w verapamil - Cario is following, recs appreciated - Maintain MAP > 65 - Hx of endovascular repair of AAA - Hx of HTN GI: - CT Abd/Pelvis: consistent with enteritis and non-obstructing nephrolithiasis. No perforation or intra-abdominal abscess. - c/w enteric feeds via NG tube - Diarrhea in ostomy bag, C. 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 with viscus rupture and ex-lap and peritonitis Renal: - Pending HD session today - as per dialysis nurse, dialysis catheter not draining properly, surgical team will reassess catheter - Improved BUN/Cr after first HD session - s/p shiley catheter for HD (09/09) due to uremia; BUN/Cr > 120/1.9 - Renal ultrasound shows no hydronephrosis but there was evidence of gallbladder wall thickening - c/w D5w IVF to avoid hypernatremia and hypercholoremia - continue to monitor ins/outs Heme: - Hgb 10.4 from 9.8 yesterday - stable - No signs of active bleeding at this time - Continue to monitor ID: - Afebrile, leukocytosis trending upwards; may be secondary to steroids - c/w meropenem (Day #9) and daptomycin (Day #5) as per ID recs - C. diff negative - septic w/u has been negative thus far. PE/DVT and Acalculous Cholecystitis has been ruled out in regards to source of fevers. - VRE+ Endo: - Maintain euglycemia - ISS - low Prophylaxis: - DVT ppx: SCD, Hep SC - GI ppx: pepcid Palliative care is on board. Dispo: Continue to manage the patient in the ICU. Patient pending LTACH placement. Case was discussed and reviewed with Attending Physician, Dr. Cisneros <Win Cisneros - Last Filed: 09/10/18 12:07> CCU Objective - Vital Signs / Intake & Output Vital Signs (Last 4 hours): Vital Signs Pulse BP Pulse Ox 09/10/18 10:56 147 H 115/54 L 98 09/10/18 10:45 150 H 121/56 L 100 09/10/18 10:38 142 H 100/62 100 09/10/18 10:30 128 H 117/59 L 100 09/10/18 10:25 126 H 118/52 L 100 09/10/18 10:21 126 H 121/68 100 09/10/18 10:15 124 H 124/73 100 09/10/18 10:00 126 H 112/64 100 09/10/18 09:45 132 H 114/64 100 09/10/18 09:30 133 H 125/58 L 100 09/10/18 09:15 139 H 115/66 100 09/10/18 09:11 145 H 102/53 L 100 09/10/18 09:04 138 H 112/50 L 100 09/10/18 09:00 136 H 90/60 L 100 09/10/18 08:56 132 H 116/58 L 100 09/10/18 08:47 133 H 100/66 100 09/10/18 08:45 87/64 L 09/10/18 08:44 134 H 97 09/10/18 08:30 139 H 121/66 100 09/10/18 08:15 126 H 115/61 100 Intake and Output (Last 8hrs): Intake & Output 09/09/18 09/10/18 09/10/18 22:59 06:59 14:59 Intake Total 2278 3600 Output Total 1150 1200 Balance 1128 2400 Weight 142 lb Intake: IV 1628 2950 0.9 ns 1200 Left Upper arm 1500 Right Internal Jugular 1510 Oral 150 150 Tube Feeding 500 500 Output: Drainage 550 550 Colostomy 400 400 Right Abdomen 150 150 Urine 600 600 Condom 600 600 Other 50 Other: # Bowel Movements 0 - Medications Active Medications: Active Medications Generic Name Dose Route Start Last Admin Trade Name Freq PRN Reason Stop Dose Admin Acetylcysteine 4 ml 09/02/18 08:00 09/04/18 20:05 Acetylcysteine 20% IH Not Given [id number] KD Aspirin 81 mg 09/05/18 11:30 09/09/18 09:56 Aspirin Chewable PO 81 mg DAILY KD Administration Budesonide 0.5 mg 08/13/18 08:00 09/10/18 07:13 Pulmicort Respules IH 0.5 mg [id number] KD Administration Calcium Acetate 667 mg 09/10/18 10:00 Phoslo GT TID KD Dextrose 0 ml 09/05/18 15:56 Dextrose 50% Inj IV STAT PRN Hypoglycemia Protocol Protocol Famotidine 20 mg 08/21/18 10:00 09/09/18 09:56 Pepcid PO 20 mg DAILY KD Administration Heparin Sodium (Porcine) 5,000 units 09/08/18 14:00 09/10/18 05:19 Heparin SC 5,000 units Q8 KD Administration Protocol Heparin Sodium (Porcine) 5,000 units 09/10/18 11:57 Heparin IV POSTDI PRN CATH PROPH Hydrocortisone Sodium Succinate 50 mg 09/09/18 08:45 09/09/18 21:29 Solu-Cortef IVP 50 mg Q12H KD Administration Hydromorphone HCl 0.5 mg 09/10/18 09:50 Dilaudid IVP Q4H PRN Pain, moderate (4-7) Propofol 1,000 mg in 100 mls @ 1.757 mls/hr 09/02/18 09:00 09/08/18 09:00 Diprivan IV 0 mcg/kg/min .Q24H PRN 0 mls/hr TITRATE PER MD ORDER Titration Protocol 5 MCG/KG/MIN Dextrose 1,000 mls @ 0 mls/hr 09/05/18 15:56 09/08/18 10:00 Dextrose 5% In Water 1000 Ml IV 100 mls/hr .Q0M PRN Administration Hypoglycemia Protocol Protocol Per Protocol Vasopressin 20 units/ Dextrose 101 mls @ 9.09 mls/hr 09/08/18 18:45 09/09/18 05:31 IV 9.09 mls/hr .Q11H7M KD Administration Protocol 0.03 U/MIN Daptomycin 610 mg/ Sodium 100 mls @ 200 mls/hr 09/10/18 13:15 Chloride IV 09/13/18 13:16 Q24H KD Meropenem 1 gm in 50 mls @ 100 mls/hr 09/09/18 18:00 09/10/18 05:17 Merrem Iv 1 Gm Premix IVPB 09/11/18 09:09 100 mls/hr 0600,1800 [facility] Administration Protocol Phenylephrine HCl 40 mg/ 254 mls @ 38.1 mls/hr 09/10/18 10:52 Dextrose IV .Q6H40M PRN TITRATE PER MD ORDER Protocol 100 MCG/MIN Dextrose 1,000 mls @ 75 mls/hr 09/10/18 10:55 Dextrose 5% In Water 1000 Ml IV .[id number] [facility] Insulin Human Regular 0 units 09/03/18 12:00 09/10/18 08:51 Humulin R Low SC 1 units Q6 [facility] Administration Protocol Levalbuterol HCl 0.63 mg 08/18/18 08:00 09/10/18 07:13 Xopenex IH 0.63 mg [id number] Administration Vancomycin HCl 250 mg 09/08/18 18:00 09/09/18 22:00 Vancocin 25 Mg/Ml (Oral Use) PO 250 mg QID [facility] Administration Protocol Verapamil HCl 2.5 mg 08/31/18 09:03 09/10/18 05:20 Verapamil Inj IVP 2.5 mg Q6H PRN Administration for heart rate >130 Verapamil HCl 40 mg 09/08/18 18:15 09/10/18 05:19 Calan Tab PO Not Given Q8H [facility] - Patient Studies Lab Studies: Microbiology Studies 09/06/18 11:45 Blood Culture - Preliminary Blood NO GROWTH AFTER 4 DAYS 09/07/18 20:40 Gram Stain - Final Other: Please Indicate Wound Culture - Preliminary No growth. 09/07/18 18:48 Body Fluid Culture - Preliminary Body Fluid - Abdominal Cavity NO GROWTH AFTER 2 DAYS 09/02/18 16:18 Mycobacterial Culture - Preliminary Other: Please Indicate 09/02/18 16:55 Mycobacterial Culture - Preliminary Other: Please Indicate 09/02/18 16:59 Mycobacterial Culture - Preliminary Other: Please Indicate 09/07/18 08:16 Gram Stain - Final Sputum Induced Sputum Culture - Final Yeast Species 09/08/18 11:37 C. difficile Antigen & Toxins A,B - Final Stool 09/06/18 12:00 Blood Culture - Preliminary Blood NO GROWTH AFTER 3 DAYS 09/06/18 12:24 Catheter Tip Culture - Final Catheter Tip No growth. Lab Studies 09/10/18 09/10/18 09/10/18 Range/Units 08:47 06:00 06:00 WBC 22.3 H D (4.5-11.0) 10^3/uL RBC 3.44 L (3.5-6.1) 10^6/uL Hgb 10.4 L (14.0-18.0) g/dL Hct 32.3 L (42.0-52.0) % MCV 93.9 D (80.0-105.0) fl MCH 30.2 (25.0-35.0) pg MCHC 32.2 (31.0-37.0) g/dl RDW 19.9 H (11.5-14.5) % Plt Count 101 L (120.0-450.0) 10^3/uL MPV 11.4 H (7.0-11.0) fl pCO2 (35-45) mm/Hg pO2 (80-100) mm/Hg HCO3 (21-28) mmol/L ABG pH (7.35-7.45) ABG Total CO2 (22-28) mmol.L ABG O2 Saturation (95-98) % ABG O2 Content (15-23) ML/dl ABG Base Excess (-2.0-3.0) mmol/L ABG Hemoglobin (11.7-17.4) g/dL ABG Carboxyhemoglobin (0.5-1.5) % POC ABG HHb (Measured) (0-5) % ABG Methemoglobin (0.0-3.0) % ABG O2 Capacity (16-24) mL/dl Hgb O2 Saturation (95.0-98.0) % FiO2 % Crit Value Read Back Sodium 143 (132-148) mmol/L Potassium 4.5 (3.6-5.0) mmol/L Chloride 112 H (98-107) mmol/L Carbon Dioxide 23 (21-33) mmol/L Anion Gap 12 (10-20) BUN 108 H (7-21) mg/dL Creatinine 1.5 (0.8-1.5) mg/dl Est GFR ( Amer) 54 Est GFR (Non-Af Amer) 45 POC Glucose (mg/dL) 198 H (65-110) mg/dL Random Glucose 162 H (70-110) mg/dL Calcium 7.2 L (8.4-10.5) mg/dL Phosphorus 5.6 H (2.5-4.5) mg/dL Magnesium 2.6 H (1.7-2.2) mg/dL Total Bilirubin 3.8 H (0.2-1.3) mg/dL AST 41 (17-59) U/L ALT 62 H (7-56) U/L Alkaline Phosphatase 62 (38-126) U/L Total Protein 4.2 L (5.8-8.3) g/dL Albumin 2.1 L (3.0-4.8) g/dL Globulin 2.1 gm/dL Albumin/Globulin Ratio 1.0 L (1.1-1.8) 09/10/18 09/10/18 09/09/18 Range/Units 01:00 00:02 20:35 WBC (4.5-11.0) 10^3/uL RBC (3.5-6.1) 10^6/uL Hgb (14.0-18.0) g/dL Hct (42.0-52.0) % MCV (80.0-105.0) fl MCH (25.0-35.0) pg MCHC (31.0-37.0) g/dl RDW (11.5-14.5) % Plt Count (120.0-450.0) 10^3/uL MPV (7.0-11.0) fl pCO2 30 L (35-45) mm/Hg pO2 114.0 H (80-100) mm/Hg HCO3 19.5 L (21-28) mmol/L ABG pH 7.42 (7.35-7.45) ABG Total CO2 20.4 L (22-28) mmol.L ABG O2 Saturation 99.6 H (95-98) % ABG O2 Content 13.4 L (15-23) ML/dl ABG Base Excess -4.2 L (-2.0-3.0) mmol/L ABG Hemoglobin 9.7 L (11.7-17.4) g/dL ABG Carboxyhemoglobin 2.4 H (0.5-1.5) % POC ABG HHb (Measured) 0.4 (0-5) % ABG Methemoglobin 0.8 (0.0-3.0) % ABG O2 Capacity 13.5 L (16-24) mL/dl Hgb O2 Saturation 96.4 (95.0-98.0) % FiO2 30.0 % Crit Value Read Back Sodium 143 (132-148) mmol/L Potassium 4.3 (3.6-5.0) mmol/L Chloride 105 (98-107) mmol/L Carbon Dioxide 29 (21-33) mmol/L Anion Gap 13 (10-20) BUN 51 H (7-21) mg/dL Creatinine 0.8 (0.8-1.5) mg/dl Est GFR ( Amer) > 60 Est GFR (Non-Af Amer) > 60 POC Glucose (mg/dL) 221 H (65-110) mg/dL Random Glucose 156 H (70-110) mg/dL Calcium 7.5 L (8.4-10.5) mg/dL Phosphorus 3.0 (2.5-4.5) mg/dL Magnesium (1.7-2.2) mg/dL Total Bilirubin 4.0 H (0.2-1.3) mg/dL AST 65 H D (17-59) U/L ALT 72 H (7-56) U/L Alkaline Phosphatase 103 (38-126) U/L Total Protein 6.1 (5.8-8.3) g/dL Albumin 3.3 (3.0-4.8) g/dL Globulin 2.8 gm/dL Albumin/Globulin Ratio 1.2 (1.1-1.8) 09/09/18 09/09/18 Range/Units 17:48 11:56 WBC (4.5-11.0) 10^3/uL RBC (3.5-6.1) 10^6/uL Hgb (14.0-18.0) g/dL Hct (42.0-52.0) % MCV (80.0-105.0) fl MCH (25.0-35.0) pg MCHC (31.0-37.0) g/dl RDW (11.5-14.5) % Plt Count (120.0-450.0) 10^3/uL MPV (7.0-11.0) fl pCO2 (35-45) mm/Hg pO2 (80-100) mm/Hg HCO3 (21-28) mmol/L ABG pH (7.35-7.45) ABG Total CO2 (22-28) mmol.L ABG O2 Saturation (95-98) % ABG O2 Content (15-23) ML/dl ABG Base Excess (-2.0-3.0) mmol/L ABG Hemoglobin (11.7-17.4) g/dL ABG Carboxyhemoglobin (0.5-1.5) % POC ABG HHb (Measured) (0-5) % ABG Methemoglobin (0.0-3.0) % ABG O2 Capacity (16-24) mL/dl Hgb O2 Saturation (95.0-98.0) % FiO2 % Crit Value Read Back Sodium (132-148) mmol/L Potassium (3.6-5.0) mmol/L Chloride (98-107) mmol/L Carbon Dioxide (21-33) mmol/L Anion Gap (10-20) BUN (7-21) mg/dL Creatinine (0.8-1.5) mg/dl Est GFR ( Amer) Est GFR (Non-Af Amer) POC Glucose (mg/dL) 203 H 232 H (65-110) mg/dL Random Glucose (70-110) mg/dL Calcium (8.4-10.5) mg/dL Phosphorus (2.5-4.5) mg/dL Magnesium (1.7-2.2) mg/dL Total Bilirubin (0.2-1.3) mg/dL AST (17-59) U/L ALT (7-56) U/L Alkaline Phosphatase (38-126) U/L Total Protein (5.8-8.3) g/dL Albumin (3.0-4.8) g/dL Globulin gm/dL Albumin/Globulin Ratio (1.1-1.8) Laboratory Results - last 24 hr 11/29/18 11/29/18 11/29/18 11:56 17:48 20:35 WBC RBC Hgb Hct MCV MCH MCHC RDW Plt Count MPV pCO2 pO2 HCO3 ABG pH ABG Total CO2 ABG O2 Saturation ABG O2 Content ABG Base Excess ABG Hemoglobin ABG Carboxyhemoglobin POC ABG HHb (Measured) ABG Methemoglobin ABG O2 Capacity Hgb O2 Saturation FiO2 Crit Value Read Back Sodium 143 Potassium 4.3 Chloride 105 Carbon Dioxide 29 Anion Gap 13 BUN 51 H Creatinine 0.8 Est GFR ( Amer) > 60 Est GFR (Non-Af Amer) > 60 POC Glucose (mg/dL) 232 H 203 H Random Glucose 156 H Calcium 7.5 L Phosphorus 3.0 Magnesium Total Bilirubin 4.0 H AST 65 H D ALT 72 H Alkaline Phosphatase 103 Total Protein 6.1 Albumin 3.3 Globulin 2.8 Albumin/Globulin Ratio 1.2 09/10/18 09/10/18 09/10/18 00:02 01:00 06:00 WBC RBC Hgb Hct MCV MCH MCHC RDW Plt Count MPV pCO2 30 L pO2 114.0 H HCO3 19.5 L ABG pH 7.42 ABG Total CO2 20.4 L ABG O2 Saturation 99.6 H ABG O2 Content 13.4 L ABG Base Excess -4.2 L ABG Hemoglobin 9.7 L ABG Carboxyhemoglobin 2.4 H POC ABG HHb (Measured) 0.4 ABG Methemoglobin 0.8 ABG O2 Capacity 13.5 L Hgb O2 Saturation 96.4 FiO2 30.0 Crit Value Read Back Sodium 143 Potassium 4.5 Chloride 112 H Carbon Dioxide 23 Anion Gap 12 BUN 108 H Creatinine 1.5 Est GFR ( Amer) 54 Est GFR (Non-Af Amer) 45 POC Glucose (mg/dL) 221 H Random Glucose 162 H Calcium 7.2 L Phosphorus 5.6 H Magnesium 2.6 H Total Bilirubin 3.8 H AST 41 ALT 62 H Alkaline Phosphatase 62 Total Protein 4.2 L Albumin 2.1 L Globulin 2.1 Albumin/Globulin Ratio 1.0 L 09/10/18 09/10/18 06:00 08:47 WBC 22.3 H D RBC 3.44 L Hgb 10.4 L Hct 32.3 L MCV 93.9 D MCH 30.2 MCHC 32.2 RDW 19.9 H Plt Count 101 L MPV 11.4 H pCO2 pO2 HCO3 ABG pH ABG Total CO2 ABG O2 Saturation ABG O2 Content ABG Base Excess ABG Hemoglobin ABG Carboxyhemoglobin POC ABG HHb (Measured) ABG Methemoglobin ABG O2 Capacity Hgb O2 Saturation FiO2 Crit Value Read Back Sodium Potassium Chloride Carbon Dioxide Anion Gap BUN Creatinine Est GFR ( Amer) Est GFR (Non-Af Amer) POC Glucose (mg/dL) 198 H Random Glucose Calcium Phosphorus Magnesium Total Bilirubin AST ALT Alkaline Phosphatase Total Protein Albumin Globulin Albumin/Globulin Ratio Critical Care Progress Note - Nutrition Nutrition: Nutrition Category Date Time Status NPO Diet [DIET] Diets 09/02/18 Lunch Ordered Attending/Attestation - Attestation I have personally seen and examined this patient.: Yes I have fully participated in the care of the patient.: Yes I have reviewed all pertinent clinical information: Yes Notes (Text): 09/10/18 12:03 The patient was seen and examined at the bedside. Patient care was discussed with resident Medical records, lab studies, and imaging were reviewed and management issues were discussed and formulated. Last 24H events reviewed. Agree with above treatment plans as outlined in 's note with addition of the following: VDRF \ Hypoxemia \ Septic shock \ PNA \ Afib with RVR \ JOHNNY on HD \ -hemodynamic monitoring to maintain MAP>65; continue vasopressor support -switch levophed to phenylephrine -start digoxin as per cardiology team for rate control -mechanical ventilation and o2 supplementation to maintain Spo2 >90 Pao2>60 -monitor for TV 6ml\kg IBW and plateau pressure <30 -ABG in AM and CXR reviewed -continue nebs and steroids and pulmonary toileting -continue broad spectrum Abx as per ID team and f\u cultures -f\u Bun\Cr and U\o; HD and fluid removal as per renal team -Tube feds diet and aspiration precautions -ISS and BGM monitoring -DVT \ PUD prophylaxis CCM time 34min
[2018-09-10] MEDS ORDERED: Digoxin 500 mcg/2ml (0.5 mg/2ml) Inj IVP ONE (11:42)
[2018-09-10] MEDS: Vancomycin 25 MG/ML PO SCH ×4 (12:25→22:07)
[2018-09-10] MEDS: HYDROmorphone 0.5 mg/0.5 ml ISec IVP PRN ×2 (13:34→17:31)
--- NOTE | 2018-09-10 13:34 | PN ---
DATE: 09/10/2018 SUBJECTIVE: This 82-year-old male is actively dialyzing via a right femoral [place] catheter in the [facility] Intensive Care Unit bed #1. He was initiated to hemodialysis last evening. He was noted prior to dialysis to have a BUN greater than 120 and creatinine of 1.9. After treatment last evening the BUN was 51 with a creatinine of 0.8. This morning, predialysis, his BUN was 108 with a creatinine of 1.5. The patient will continue on dialysis in attempts to improve azotemia. PHYSICAL EXAMINATION: VITAL SIGNS: Temperature 97.8, pulse 126, blood pressure 112/64. Pulse ox 100% on 30% FiO2 via trach. HEART: Irregular S1, S2. LUNGS: With occasional rhonchi. ABDOMEN: Soft. EXTREMITIES: Both lower extremities, no edema. LABORATORY DATA: Sodium 143, K 4.5, chloride 112, bicarb 23, BUN 108, creatinine 1.5, random blood sugar 162, calcium 7.2, phosphorous 5.6, magnesium 2.6, bilirubin 3.8, AST 41, ALT 62 and alk phos 62. White count 22,300, hemoglobin 10.4, hematocrit 32.3, platelets 101,000. IMPRESSION AND PLAN: This is an 82-year-old male with acute renal failure and comorbidities of sepsis, chronic atrial fibrillation with rapid ventricular response, deconditioning, diabetes mellitus, peptic ulcer disease with gastroesophageal reflux disease, anemia of chronic disease, thrombocytopenia, hyperphosphatemia, recurrent pneumonia, pleural effusion, chronic obstructive pulmonary disease, and failure to thrive. At present, the patient will continue on medications including Ecotrin, Calan, daptomycin, heparin, insulins, meropenem, Pepcid, PhosLo, Pulmicort, stress dose Solu-Cortef, NG tube vancomycin and Xopenex. He remains on vasopressin for blood pressure support. He is scheduled for serial labs. He will be rescheduled for dialysis in the a.m. and based on clinical progress, additional diagnostic workup and intervention will be entertained. Overall prognosis remains poor. Sara Ramirez MD [facility] # [id number] MTDD
--- NOTE | 2018-09-10 13:34 | PN ---
DATE: 09/10/2018 REASON FOR CONSULTATION AND FOLLOWUP: Atrial fibrillation, status post respiratory failure, status post tracheostomy, abdominal surgery, now multiorgan dysfunction, on multiple vasopressors. SUBJECTIVE: The patient is very lethargic, responds to verbal stimuli, barely opens eye. OBJECTIVE: VITAL SIGNS: Temperature afebrile, heart rate 123, blood pressure 120/80. HEENT: PERRLA. Intact. NECK: Supple. No carotid bruits or thyromegaly. CHEST: Clear to auscultation. HEART: S1 and S2, regular. ABDOMEN: Soft. EXTREMITIES: Clubbing, cyanosis negative. LABORATORY DATA: Blood workup: WBC 22.3, hemoglobin 10.4, hematocrit 32.3, and platelet count 104. Chemistry shows sodium 140, potassium 4.5, chloride 112, carbon dioxide 23, anion gap of 12, BUN , and creatinine 1.5. IMPRESSION: An 82-year-old male with past medical history significant for colostomy, history of abdominal aortic aneurysm, status post endovascular stent, history of chronic atrial fibrillation, was on anticoagulation, history of villous adenoma, status post exploratory laparotomy and right hemicolectomy. Hospital course complicated by multiple times collapse of the lung and perforation of the bowel, reexploration and resection of the perforated segment of the bowel and end-to-end anastomosis. Further hospital course is complicated by recurrent collapse of the lung, now worsening renal insufficiency, requiring dialysis. The patient had dialysis yesterday and is short on the dialysis plan today. Overall, the patient's critical long-term prognosis is extremely guarded, on vasopressors, severe protein calorie malnutrition also. Continue peripheral parenteral nutrition, continue nasogastric feeding, and continue supportive care. The patient is not on anticoagulation because of the patient's increase his . On deep venous thrombosis prophylaxis. set up for deep venous thrombosis, pulmonary embolism as well as for atrial fibrillation, but did not tolerate anticoagulation. Overall, the patient's condition is critical and prognosis is extremely guarded. Thank you Dr. Hartman for providing us the opportunity in taking care of the patient, Alexia. Continue verapamil through the NG tube. Continue baby aspirin. Increase nutritional support as tolerated. Continue dialysis as per . Gladis Greenfield MD
[2018-09-10 13:37] LABS: HEPATITIS B SURFACE AG Negative (NEGATIVE)
[2018-09-10 13:42] LABS: HEPATITIS B CORE AB NEGATIVE (NEGATIVE)
--- NOTE | 2018-09-10 13:59 | PN ---
DATE: 09/10/2018 SUBJECTIVE: The patient is an 82-year-old, seen and examined, seems to be more alert, on trach, getting hemodialysis. PHYSICAL EXAMINATION VITAL SIGNS: The patient is afebrile, pulse 140, respirations 18, blood pressure /54. LUNGS: Bilateral fair airflow. Soft crackle in the upper lung region. HEART: S1, S2 audible. Irregular and tachycardia. ABDOMEN: Soft. Colostomy functional. RUSSELL drain is draining clear yellow fluid. EXTREMITIES: Bilateral legs, no edema. LABORATORY DATA: WBC 22.3, hemoglobin 10.4, hematocrit 32.3, platelets 101. Chemistry; sodium 143, potassium 4.5, chloride 112, CO2 of 23, BUN 108, creatinine 1.5, blood sugar of 156. Stool for C. difficile is negative. ASSESSMENT: 1. Respiratory failure. 2. Renal failure. 3. Idiopathic thrombocytopenic purpura. 4. Atrial fibrillation. 5. Malnutrition. PLAN: So, currently, the patient is on daptomycin. He is on IV fluid and DVT prophylaxis. . Tri Fleming MD
[2018-09-11] MEDS: Insulin Reg-LOW-Coverage SC SCH ×3 (00:22→17:56)
[2018-09-11] MEDS: Levalbuterol 0.63 MG/3 ML Inhal Soln UD IH SCH ×4 (02:30→19:48)
[2018-09-11 06:36] LABS: ARTERIAL BLOOD GAS HCO3 16.7 mmol/L (21-28); ARTERIAL BLOOD GAS HEMOGLOBIN 9.1 g/dL (11.7-17.4); ARTERIAL BLOOD GAS O2 CAPACITY 12.6 mL/dl (16-24); ARTERIAL BLOOD GAS O2 CONTENT 12.6 ML/dl (15-23); ARTERIAL BLOOD GAS O2 SAT 100.2 % (95-98); ARTERIAL BLOOD GAS PCO2 27 mm/Hg (35-45); ARTERIAL BLOOD GAS TCO2 17.5 mmol.L (22-28)
[2018-09-11] MEDS: Meropenem IV 1 gm in NS 1 GM/50 ML BAG IVPB SCH (06:40)
--- NOTE | 2018-09-11 07:06 | PN ---
DATE: 09/11/2018 SUBJECTIVE: The patient is in bed, in no acute distress, nontoxic. PHYSICAL EXAMINATION: VITAL SIGNS: Temperature is 98, blood pressure is 119/57. HEENT: Unremarkable. NECK: Supple. LUNGS: Have decreased breath sounds. HEART: Normal S1, S2. ABDOMEN: Soft, nontender. LABORATORY EXAMINATION: Reveals a white count of 22,000, hemoglobin of 10, platelets of 101. Chemistries reveals a BUN of 108, creatinine of 1.5. Urinalysis is noted and serology is negative. Microbiology reveals the C. diff toxin and antigen are negative and abdominal cavity fluid is no growth. Review of orders reveals the patient to be on daptomycin, meropenem, p.o. vancomycin. ASSESSMENT AND PLAN: An 82-year-old male with rectal adenocarcinoma status post hemicolectomy admitted with an intensive care unit and ventilatory-dependent respiratory failure and severe sepsis with perforated ileum and exploratory laparotomy and resection of the terminal ileum, primary anastomosis and required emergent hemodialysis and with severe sepsis and vancomycin-resistant Enterococcus in his stool with healthcare-associated pneumonia, nondilated infection, atrial fibrillation, coronary artery disease, chronic congestive heart failure and gastroesophageal reflux disease. Today is day #6 of daptomycin and day #10 of meropenem. The Clostridium difficile toxin and antigen are negative. We will discontinue the p.o. vancomycin, highly unlikely to be pseudomembranous colitis in this patient who is trached on a vent, has an nasogastric tube in and overall prognosis is quite poor. Dr. Fleming's note is reviewed today. His chest x-ray is pending. Dr. Win Cruz's note is reviewed. Jason Garvin MD
[2018-09-11] MEDS: Budesonide 0.5 mg/2 ml Inhal Susp UD IH SCH ×2 (07:35→19:48)
[2018-09-11 08:25] LABS: HEMOGLOBIN 9.4 g/dL (14.0-18.0); MEAN CELL VOLUME 94.7 fl (80.0-105.0); MEAN CORPUSCULAR HEMOGLOBIN 31.2 pg (25.0-35.0); MEAN PLATELET VOLUME 12.4 fl (7.0-11.0); RBC 3.01 10^6/uL (3.5-6.1); WHITE BLOOD COUNT 24.3 10^3/uL (4.5-11.0)
[2018-09-11] MEDS ORDERED: Digoxin 500 mcg/2ml (0.5 mg/2ml) Inj ONE (08:30)
[2018-09-11] MEDS ORDERED: Digoxin 500 mcg/2ml (0.5 mg/2ml) Inj IVP ONE (08:30)
--- NOTE | 2018-09-11 08:33 | PN ---
DATE: 09/11/2018 SUBJECTIVE: The patient remains in the intensive care unit, on mechanical ventilation. The patient remains sedated and appears lethargic. No change in the situation has occurred. Case discussed at length with respiratory therapist and nurse. PHYSICAL EXAMINATION: VITAL SIGNS: Remain stable. The patient remains afebrile, pulse 100, respiratory rate 20, blood pressure 110/70. HEENT: Normocephalic, atraumatic. NECK: Tracheotomy. No jugular venous distention. CARDIOVASCULAR: Regular rhythm. S1, S2, systolic ejection murmur persists. There is no change. No gallop is heard. LUNGS: Decreased breath sounds throughout. No rales, rhonchi or wheezing. ABDOMEN: Soft. Bowel sounds normoactive without mass, guarding, rebound or organomegaly. EXTREMITIES: No clubbing or cyanosis. There is trace edema. SKIN: No rash or excoriation. NEUROLOGIC: Exam unable to fully evaluate at this time. LABORATORY DATA: Chest x-ray repeated this morning does not show significant change when compared to yesterday. No blood gas is available yet this morning. The results are pending. The patient remains on mechanical ventilation with no change in the settings. CLINICAL IMPRESSION: 1. Recurrent left lung atelectasis. 2. Pulmonary vascular congestion/congestive heart failure. 3. Cardiac arrhythmia/atrial fibrillation. 4. Intra-abdominal catastrophe. 5. Status post right hemicolectomy. 6. Severe chronic obstructive pulmonary disease. 7. Anemia. 8. Thrombocytopenia. 9. Renal insufficiency. PLAN: Continue vigorous supportive care in the intensive care unit. We will discuss at length with the transportation dispatcher who were following the patient. The patient continues to require mechanical ventilation. Arterial blood gas is pending and we will review with you when available. The morning x-ray is not yet been completed. We will review when available. Monitor for recurrent atelectasis. Arterial blood gases been sufficient to sustain adequate oxygenation and ventilation. The patient is getting fall service care in the Intensive Care Unit. There is currently no acute bronchospastic issues. Ventilatory support is required for septicemia and septic shock. We will follow closely with you and adjust medications accordingly. Overall prognosis remains guarded. We will discuss with the transportation dispatcher this morning. The attending physician is aware of this poor status. We will follow closely with you. Tulio Ramos MD [facility] # [id number]
[2018-09-11] MEDS ORDERED: Albumin Human 5% (12.5 gm/250 ml) IV ONE (09:40)
[2018-09-11] MEDS ORDERED: Albumin Human 25% (12.5 gm/50 ml) IV ONE ×2 (09:41→10:30)
[2018-09-11 09:44] LABS: ALBUMIN 2.3 g/dL (3.0-4.8); ALT/SGPT 91 U/L (7-56); AST/SGOT 84 U/L (17-59); BLOOD UREA NITROGEN 34 mg/dL (7-21); CALCIUM 6.7 mg/dL (8.4-10.5); GFR NON-AFRICAN AMERICAN > 60
[2018-09-11] MEDS ORDERED: NOREPINEPHRINE BIT/0.9 % NACL 4 MG/250 ML BAG IV ONE (09:55)
--- NOTE | 2018-09-11 11:43 | CP.CCUPN ---
<Godfrey Lehman - Last Filed: 09/11/18 11:47> CCU Subjective - Physician Review Subjective (Free Text): Godfrey Lehman, PGY1 ICU Progress Note for Dr. Keys Patient was seen and examined at bedside this morning. Phenylephrine was running at a rate of 100 mcg/min. Patient was also receiving HD during time of interview. He is alert, awake, and following commands. Trach, anthony, R-iJ, ng tube, ostomy bag, RUSSELL drain, and shiley catheter are all in-tact. After interview, patient had 1 hour of HD, his blood pressure was noted to be SBP 68 with a consistent repeat read. Uptitrated the phenylephrine to 150 mcg/min and patient's blood pressure improved. No fevers overnight. No adverse overnight events. Due to patient's condition, a full ROS was unable to be obtained. CCU Objective - Vital Signs / Intake & Output Vital Signs (Last 4 hours): Vital Signs Pulse BP 09/11/18 09:29 126 H 141/117 H Intake and Output (Last 8hrs): Intake & Output 09/10/18 09/11/18 09/11/18 22:59 06:59 14:59 Intake Total 2034 1604 254 Output Total 385 680 Balance 1649 924 254 Weight 69.354 kg Intake: IV 1634 1604 254 Right Internal Jugular 1380 1350 Oral 200 Tube Feeding 200 Output: Drainage 110 380 Colostomy 110 250 Right Abdomen 130 Urine 275 300 Urethral (Anthony) 275 300 - Physical Exam Head: Positive for: Atraumatic, Normocephalic, Other (R-IJ in place. ) Pupils: Positive for: Sluggish Conjunctiva: Positive for: Normal Mouth: Positive for: Moist Mucous Membranes Pharnyx: Positive for: Normal Nose (External): Positive for: Other (NG tube in place) Neck: Positive for: Other (Tracheostomy tube in place). Negative for: JVD, Lymphadenopathy, Bruit Respiratory/Chest: Positive for: Clear to Auscultation. Negative for: Respiratory Distress, Accessory Muscle Use, Wheezes, Rales, Rhonchi Cardiovascular: Positive for: Regular Rate and Rhythm, Peripheal Pulses Present Abdomen: Positive for: Normal Bowel Sounds, Other ( Colostomy bag in place. RUSSELL drain in place. ). Negative for: Tenderness, Distention, Peritoneal Signs, Rebound, Mass/Organomegaly Genitourinary Male: Positive for: Other (Anthony in place. Shiley catheter in the R-groin. ) Upper Extremity: Positive for: NORMAL PULSES. Negative for: Edema Lower Extremity: Positive for: NORMAL PULSES, Other (No pitting edema noted on bilateral low ext. ). Negative for: Edema, CALF TENDERNESS Skin: Positive for: Warm, Dry, Normal Color Psychiatric: Positive for: Alert. Negative for: Oriented x 3 - Medications Active Medications: Active Medications Generic Name Dose Route Start Last Admin Trade Name Freq PRN Reason Stop Dose Admin Acetylcysteine 4 ml 09/02/18 08:00 09/04/18 20:05 Acetylcysteine 20% IH Not Given [id number] Aspirin 81 mg 09/05/18 11:30 09/11/18 09:21 Aspirin Chewable PO 81 mg DAILY KD Administration Budesonide 0.5 mg 08/13/18 08:00 09/11/18 07:35 Pulmicort Respules IH 0.5 mg [id number] KD Administration Calcium Acetate 667 mg 09/10/18 10:00 09/11/18 09:38 Phoslo GT 667 mg TID KD Administration Dextrose 0 ml 09/05/18 15:56 Dextrose 50% Inj IV STAT PRN Hypoglycemia Protocol Protocol Famotidine 20 mg 08/21/18 10:00 09/11/18 09:31 Pepcid PO 20 mg DAILY KD Administration Heparin Sodium (Porcine) 5,000 units 09/08/18 14:00 09/11/18 06:40 Heparin SC 5,000 units Q8 KD Administration Protocol Heparin Sodium (Porcine) 5,000 units 09/10/18 11:57 Heparin IV POSTDI PRN CATH PROPH Hydrocortisone Sodium Succinate 50 mg 09/09/18 08:45 09/11/18 09:26 Solu-Cortef IVP 50 mg Q12H KD Administration Hydromorphone HCl 0.5 mg 09/10/18 09:50 09/10/18 17:31 Dilaudid IVP 0.5 mg Q4H PRN Administration Pain, moderate (4-7) Propofol 1,000 mg in 100 mls @ 1.757 mls/hr 09/02/18 09:00 09/08/18 09:00 Diprivan IV 0 mcg/kg/min .Q24H PRN 0 mls/hr TITRATE PER MD ORDER Titration Protocol 5 MCG/KG/MIN Dextrose 1,000 mls @ 0 mls/hr 09/05/18 15:56 09/08/18 10:00 Dextrose 5% In Water 1000 Ml IV 100 mls/hr .Q0M PRN Administration Hypoglycemia Protocol Protocol Per Protocol Vasopressin 20 units/ Dextrose 101 mls @ 9.09 mls/hr 09/08/18 18:45 09/09/18 05:31 IV 9.09 mls/hr .Q11H7M KD Administration Protocol 0.03 U/MIN Daptomycin 610 mg/ Sodium 100 mls @ 200 mls/hr 09/10/18 13:15 09/10/18 13:23 Chloride IV 09/13/18 13:16 200 mls/hr Q24H KD Administration Phenylephrine HCl 40 mg/ 254 mls @ 38.1 mls/hr 09/10/18 10:52 09/11/18 09:16 Dextrose IV 100 mcg/min .Q6H40M PRN 38.1 mls/hr TITRATE PER MD ORDER Administration Protocol 100 MCG/MIN Dextrose 1,000 mls @ 75 mls/hr 09/10/18 10:55 09/11/18 09:18 Dextrose 5% In Water 1000 Ml IV 75 mls/hr .[id number] KD Administration Insulin Human Regular 0 units 09/03/18 12:00 09/11/18 00:22 Humulin R Low SC Not Given Q6 KD Protocol Levalbuterol HCl 0.63 mg 08/18/18 08:00 09/11/18 07:35 Xopenex IH 0.63 mg [id number] KD Administration Verapamil HCl 40 mg 09/08/18 18:15 09/11/18 09:29 Calan Tab PO 40 mg Q8H KD Administration Verapamil HCl 2.5 mg 09/11/18 09:42 Verapamil Inj IVP Q6H PRN for heart rate >130 - Patient Studies Lab Studies: Microbiology Studies 09/06/18 12:00 Blood Culture - Preliminary Blood NO GROWTH AFTER 4 DAYS 09/06/18 11:45 Blood Culture - Preliminary Blood NO GROWTH AFTER 4 DAYS 09/07/18 20:40 Gram Stain - Final Other: Please Indicate Wound Culture - Preliminary No growth. 09/07/18 18:48 Body Fluid Culture - Preliminary Body Fluid - Abdominal Cavity NO GROWTH AFTER 2 DAYS 09/02/18 16:18 Mycobacterial Culture - Preliminary Other: Please Indicate 09/02/18 16:55 Mycobacterial Culture - Preliminary Other: Please Indicate 09/02/18 16:59 Mycobacterial Culture - Preliminary Other: Please Indicate Lab Studies 09/11/18 09/11/18 09/11/18 Range/Units 07:00 07:00 06:30 WBC 24.3 H (4.5-11.0) 10^3/uL RBC 3.01 L (3.5-6.1) 10^6/uL Hgb 9.4 L (14.0-18.0) g/dL Hct 28.5 L (42.0-52.0) % MCV 94.7 (80.0-105.0) fl MCH 31.2 (25.0-35.0) pg MCHC 33.0 (31.0-37.0) g/dl RDW 20.0 H (11.5-14.5) % Plt Count 92 L (120.0-450.0) 10^3/uL MPV 12.4 H (7.0-11.0) fl pCO2 27 L (35-45) mm/Hg pO2 106.0 H (80-100) mm/Hg HCO3 16.7 L (21-28) mmol/L ABG pH 7.40 (7.35-7.45) ABG Total CO2 17.5 L (22-28) mmol.L ABG O2 Saturation 100.2 H (95-98) % ABG O2 Content 12.6 L (15-23) ML/dl ABG Base Excess -7.1 L (-2.0-3.0) mmol/L ABG Hemoglobin 9.1 L (11.7-17.4) g/dL ABG Carboxyhemoglobin 2.9 H (0.5-1.5) % POC ABG HHb (Measured) -0.2 L (0-5) % ABG Methemoglobin 0.7 (0.0-3.0) % ABG O2 Capacity 12.6 L (16-24) mL/dl Hgb O2 Saturation 96.6 (95.0-98.0) % FiO2 40.0 % Sodium 138 (132-148) mmol/L Chloride 105 (98-107) mmol/L Carbon Dioxide 29 (21-33) mmol/L Anion Gap 9 L (10-20) BUN 34 H (7-21) mg/dL Creatinine 0.6 L (0.8-1.5) mg/dl Est GFR ( Amer) > 60 Est GFR (Non-Af Amer) > 60 POC Glucose (mg/dL) (65-110) mg/dL Random Glucose 127 H (70-110) mg/dL Calcium 6.7 L* (8.4-10.5) mg/dL Phosphorus 2.3 L (2.5-4.5) mg/dL Magnesium 2.0 (1.7-2.2) mg/dL Total Bilirubin 5.2 H (0.2-1.3) mg/dL AST 84 H D (17-59) U/L ALT 91 H (7-56) U/L Alkaline Phosphatase 88 (38-126) U/L Total Protein 4.6 L (5.8-8.3) g/dL Albumin 2.3 L (3.0-4.8) g/dL Globulin 2.3 gm/dL Albumin/Globulin Ratio 1.0 L (1.1-1.8) Hep Bs Antigen (NEGATIVE) Hep Bs Antibody (NEGATIVE) Hep B Core IgM Ab (NEGATIVE) 09/11/18 09/10/18 09/10/18 Range/Units 00:12 17:46 12:01 WBC (4.5-11.0) 10^3/uL RBC (3.5-6.1) 10^6/uL Hgb (14.0-18.0) g/dL Hct (42.0-52.0) % MCV (80.0-105.0) fl MCH (25.0-35.0) pg MCHC (31.0-37.0) g/dl RDW (11.5-14.5) % Plt Count (120.0-450.0) 10^3/uL MPV (7.0-11.0) fl pCO2 (35-45) mm/Hg pO2 (80-100) mm/Hg HCO3 (21-28) mmol/L ABG pH (7.35-7.45) ABG Total CO2 (22-28) mmol.L ABG O2 Saturation (95-98) % ABG O2 Content (15-23) ML/dl ABG Base Excess (-2.0-3.0) mmol/L ABG Hemoglobin (11.7-17.4) g/dL ABG Carboxyhemoglobin (0.5-1.5) % POC ABG HHb (Measured) (0-5) % ABG Methemoglobin (0.0-3.0) % ABG O2 Capacity (16-24) mL/dl Hgb O2 Saturation (95.0-98.0) % FiO2 % Sodium (132-148) mmol/L Chloride (98-107) mmol/L Carbon Dioxide (21-33) mmol/L Anion Gap (10-20) BUN (7-21) mg/dL Creatinine (0.8-1.5) mg/dl Est GFR ( Amer) Est GFR (Non-Af Amer) POC Glucose (mg/dL) 174 H 202 H 156 H (65-110) mg/dL Random Glucose (70-110) mg/dL Calcium (8.4-10.5) mg/dL Phosphorus (2.5-4.5) mg/dL Magnesium (1.7-2.2) mg/dL Total Bilirubin (0.2-1.3) mg/dL AST (17-59) U/L ALT (7-56) U/L Alkaline Phosphatase (38-126) U/L Total Protein (5.8-8.3) g/dL Albumin (3.0-4.8) g/dL Globulin gm/dL Albumin/Globulin Ratio (1.1-1.8) Hep Bs Antigen (NEGATIVE) Hep Bs Antibody (NEGATIVE) Hep B Core IgM Ab (NEGATIVE) 09/10/18 09/10/18 Range/Units 08:25 08:25 WBC (4.5-11.0) 10^3/uL RBC (3.5-6.1) 10^6/uL Hgb (14.0-18.0) g/dL Hct (42.0-52.0) % MCV (80.0-105.0) fl MCH (25.0-35.0) pg MCHC (31.0-37.0) g/dl RDW (11.5-14.5) % Plt Count (120.0-450.0) 10^3/uL MPV (7.0-11.0) fl pCO2 (35-45) mm/Hg pO2 (80-100) mm/Hg HCO3 (21-28) mmol/L ABG pH (7.35-7.45) ABG Total CO2 (22-28) mmol.L ABG O2 Saturation (95-98) % ABG O2 Content (15-23) ML/dl ABG Base Excess (-2.0-3.0) mmol/L ABG Hemoglobin (11.7-17.4) g/dL ABG Carboxyhemoglobin (0.5-1.5) % POC ABG HHb (Measured) (0-5) % ABG Methemoglobin (0.0-3.0) % ABG O2 Capacity (16-24) mL/dl Hgb O2 Saturation (95.0-98.0) % FiO2 % Sodium (132-148) mmol/L Chloride (98-107) mmol/L Carbon Dioxide (21-33) mmol/L Anion Gap (10-20) BUN (7-21) mg/dL Creatinine (0.8-1.5) mg/dl Est GFR ( Amer) Est GFR (Non-Af Amer) POC Glucose (mg/dL) (65-110) mg/dL Random Glucose (70-110) mg/dL Calcium (8.4-10.5) mg/dL Phosphorus (2.5-4.5) mg/dL Magnesium (1.7-2.2) mg/dL Total Bilirubin (0.2-1.3) mg/dL AST (17-59) U/L ALT (7-56) U/L Alkaline Phosphatase (38-126) U/L Total Protein (5.8-8.3) g/dL Albumin (3.0-4.8) g/dL Globulin gm/dL Albumin/Globulin Ratio (1.1-1.8) Hep Bs Antigen Negative (NEGATIVE) Hep Bs Antibody Negative (NEGATIVE) Hep B Core IgM Ab Negative (NEGATIVE) Laboratory Results - last 24 hr 09/10/18 09/10/18 09/10/18 08:25 08:25 12:01 WBC RBC Hgb Hct MCV MCH MCHC RDW Plt Count MPV pCO2 pO2 HCO3 ABG pH ABG Total CO2 ABG O2 Saturation ABG O2 Content ABG Base Excess ABG Hemoglobin ABG Carboxyhemoglobin POC ABG HHb (Measured) ABG Methemoglobin ABG O2 Capacity Hgb O2 Saturation FiO2 Sodium Chloride Carbon Dioxide Anion Gap BUN Creatinine Est GFR ( Amer) Est GFR (Non-Af Amer) POC Glucose (mg/dL) 156 H Random Glucose Calcium Phosphorus Magnesium Total Bilirubin AST ALT Alkaline Phosphatase Total Protein Albumin Globulin Albumin/Globulin Ratio Hep Bs Antigen Negative Hep Bs Antibody Negative Hep B Core IgM Ab Negative 09/10/18 09/11/18 09/11/18 17:46 00:12 06:30 WBC RBC Hgb Hct MCV MCH MCHC RDW Plt Count MPV pCO2 27 L pO2 106.0 H HCO3 16.7 L ABG pH 7.40 ABG Total CO2 17.5 L ABG O2 Saturation 100.2 H ABG O2 Content 12.6 L ABG Base Excess -7.1 L ABG Hemoglobin 9.1 L ABG Carboxyhemoglobin 2.9 H POC ABG HHb (Measured) -0.2 L ABG Methemoglobin 0.7 ABG O2 Capacity 12.6 L Hgb O2 Saturation 96.6 FiO2 40.0 Sodium Chloride Carbon Dioxide Anion Gap BUN Creatinine Est GFR ( Amer) Est GFR (Non-Af Amer) POC Glucose (mg/dL) 202 H 174 H Random Glucose Calcium Phosphorus Magnesium Total Bilirubin AST ALT Alkaline Phosphatase Total Protein Albumin Globulin Albumin/Globulin Ratio Hep Bs Antigen Hep Bs Antibody Hep B Core IgM Ab 09/11/18 09/11/18 07:00 07:00 WBC 24.3 H RBC 3.01 L Hgb 9.4 L Hct 28.5 L MCV 94.7 MCH 31.2 MCHC 33.0 RDW 20.0 H Plt Count 92 L MPV 12.4 H pCO2 pO2 HCO3 ABG pH ABG Total CO2 ABG O2 Saturation ABG O2 Content ABG Base Excess ABG Hemoglobin ABG Carboxyhemoglobin POC ABG HHb (Measured) ABG Methemoglobin ABG O2 Capacity Hgb O2 Saturation FiO2 Sodium 138 Chloride 105 Carbon Dioxide 29 Anion Gap 9 L BUN 34 H Creatinine 0.6 L Est GFR ( Amer) > 60 Est GFR (Non-Af Amer) > 60 POC Glucose (mg/dL) Random Glucose 127 H Calcium 6.7 L* Phosphorus 2.3 L Magnesium 2.0 Total Bilirubin 5.2 H AST 84 H D ALT 91 H Alkaline Phosphatase 88 Total Protein 4.6 L Albumin 2.3 L Globulin 2.3 Albumin/Globulin Ratio 1.0 L Hep Bs Antigen Hep Bs Antibody Hep B Core IgM Ab Fingerstick Blood Sugar Results: 174 Review of Systems - Review of Systems Systems not reviewed;Unavailable: Acuity of Condition Critical Care Progress Note - Ventilator Checklist Head of Bed 30 Degrees: Yes Daily Sedation Vacation: Yes Daily Assessment of Readiness to Wean: Yes Daily Spontaneous Breathing Trial: Yes PUD Prophalyxis: Yes DVT Prophylaxis: Yes Oral Care with Chlorhexidine Gluconate {CHG}: Yes - Vent Settings MODE:: PRVC TIDAL VOLUME:: 400 RESP RATE:: 20 FIO2:: 30 PEEP:: 5 - Extremities/Vascular Does the Patient have a Central Venous Catheter?: Yes Insertion Site: Internal Jugular Vein Does the Patient need a Central Venous Catheter?: Yes Does the Patient have a Anthony Catheter?: Yes Does the Patient need a Anthony Catheter?: Yes Catheter Insertion Criteria: Need for accurate measurement of output in critically ill patient - Prophylaxis GI Prophylaxis GI: Pepsid - Prophylaxis DVT Prophylaxis DVT: Heparin SQ - Nutrition Nutrition: Nutrition Category Date Time Status NPO Diet [DIET] Diets 09/02/18 Lunch Ordered Assessment/Plan - Assessment and Plan (Free Text) Assessment: Patient is a 82 y/o male 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 Patient is also s/p tracheostomy tube placement. Patient also had worsening renal failure with uremia - requiring dialysis. Overall, patient's prognosis is guarded. Plan: Neuro: - Off sedation; improved mental status - Afebrile overnight; maintain normothermia Pulm: - c/w PRVC vent settings via tracheostomy tube - c/w ventilator management: HoB > 35 degrees, DVT/GI ppx, oral care, suctioning, daily weaning trials, low-intermediate tidal volume - CXR (09/11): no changes from previous imaging - Patient is s/p tracheostomy tube (09/07) - s/p elective brochoscopy (09/02) - c/w Prednisone, xopenex, pulmicort - Pulmonology is following, recs appreciated - Maintain SaO2 > 90% - Hx recurrent L-lung atelectasis and mucus plugging s/p bronchoscopy x3 - Hx of COPD and smoking Cardio: - c/w phenylephrine drip and stress dose steroids for blood pressure control - Hypotensive episode after x1 hour HD session - blood pressure is now controlled - c/w verapamil - Cario is following, recs appreciated - Maintain MAP > 65 - Hx of Afib - rate controlled - Hx of endovascular repair of AAA - Hx of HTN GI: - CT Abd/Pelvis (09/09): consistent with enteritis and non-obstructing nephrolithiasis. No perforation or pneumatosis intestinalis. - Patient is on enteric feeds via NG tube - Ostomy bag in tact - C. 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 with viscus rupture and ex-lap and peritonitis Renal: - Hypotensive after HD session today - titrated up on phenylephrine; BP is now stable - Improving BUN/Cr level - s/p shiley catheter for HD (09/09) due to uremia; BUN/Cr > 120/1.9 - c/w D5w IVF to avoid hypernatremia and hypercholoremia - continue to monitor ins/outs Heme: - Hgb 9.4 - stable - No signs of active bleeding at this time - Continue to monitor ID: - Afebrile, leukocytosis trending upwards; may be secondary to steroids - c/w meropenem (Day #10) and daptomycin (Day #6) as per ID recs - C. diff negative - septic w/u has been negative thus far - PE/DVT and Acalculous Cholecystitis has been ruled out in regards to source of fevers - VRE+ Endo: - Maintain euglycemia - ISS - low Prophylaxis: - DVT ppx: SCD, Hep SC - GI ppx: pepcid Palliative care is on board. Dispo: Continue to monitor patient in the ICU. Overall prognosis is guarded. Case was discussed and reviewed with Attending Physician, Dr. Keys <Yeni Keys - Last Filed: 09/11/18 14:13> CCU Objective - Vital Signs / Intake & Output Vital Signs (Last 4 hours): Vital Signs Pulse BP Pulse Ox 09/11/18 11:55 93 H 112/67 99 09/11/18 11:50 106 H 131/66 100 09/11/18 11:45 100 H 133/76 99 09/11/18 11:40 102 H 142/79 100 09/11/18 11:35 97 H 134/86 100 09/11/18 11:30 100 H 140/90 100 09/11/18 11:25 103 H 146/85 100 09/11/18 11:20 99 H 127/84 100 09/11/18 11:15 103 H 147/78 100 09/11/18 11:10 104 H 134/79 100 09/11/18 11:05 100 H 141/76 100 09/11/18 11:00 108 H 129/78 99 09/11/18 10:55 104 H 138/72 98 09/11/18 10:50 104 H 138/76 99 09/11/18 10:45 108 H 133/80 100 09/11/18 10:40 104 H 133/81 99 09/11/18 10:35 110 H 142/81 98 09/11/18 10:31 158/77 H 09/11/18 10:30 114 H 09/11/18 10:25 84/53 L 09/11/18 10:24 106 H Intake and Output (Last 8hrs): Intake & Output 09/10/18 09/11/18 09/11/18 22:59 06:59 14:59 Intake Total 2034 1604 254 Output Total 385 680 Balance 1649 924 254 Weight 69.354 kg Intake: IV 1634 1604 254 Right Internal Jugular 1380 1350 Oral 200 Tube Feeding 200 Output: Drainage 110 380 Colostomy 110 250 Right Abdomen 130 Urine 275 300 Urethral (Anthony) 275 300 - Medications Active Medications: Active Medications Generic Name Dose Route Start Last Admin Trade Name Freq PRN Reason Stop Dose Admin Acetylcysteine 4 ml 09/02/18 08:00 09/04/18 20:05 Acetylcysteine 20% IH Not Given [id number] [facility] Aspirin 81 mg 09/05/18 11:30 09/11/18 09:21 Aspirin Chewable PO 81 mg DAILY KD Administration Budesonide 0.5 mg 08/13/18 08:00 09/11/18 07:35 Pulmicort Respules IH 0.5 mg [id number] [facility] Administration Calcium Acetate 667 mg 09/10/18 10:00 09/11/18 09:38 Phoslo GT 667 mg TID KD Administration Dextrose 0 ml 09/05/18 15:56 Dextrose 50% Inj IV STAT PRN Hypoglycemia Protocol Protocol Famotidine 20 mg 08/21/18 10:00 09/11/18 09:31 Pepcid PO 20 mg DAILY KD Administration Heparin Sodium (Porcine) 5,000 units 09/08/18 14:00 09/11/18 06:40 Heparin SC 5,000 units Q8 KD Administration Protocol Heparin Sodium (Porcine) 5,000 units 09/10/18 11:57 Heparin IV POSTDI PRN CATH PROPH Hydrocortisone Sodium Succinate 50 mg 09/09/18 08:45 09/11/18 09:26 Solu-Cortef IVP 50 mg Q12H KD Administration Hydromorphone HCl 0.5 mg 09/10/18 09:50 09/10/18 17:31 Dilaudid IVP 0.5 mg Q4H PRN Administration Pain, moderate (4-7) Propofol 1,000 mg in 100 mls @ 1.757 mls/hr 09/02/18 09:00 09/08/18 09:00 Diprivan IV 0 mcg/kg/min .Q24H PRN 0 mls/hr TITRATE PER MD ORDER Titration Protocol 5 MCG/KG/MIN Dextrose 1,000 mls @ 0 mls/hr 09/05/18 15:56 09/08/18 10:00 Dextrose 5% In Water 1000 Ml IV 100 mls/hr .Q0M PRN Administration Hypoglycemia Protocol Protocol Per Protocol Vasopressin 20 units/ Dextrose 101 mls @ 9.09 mls/hr 09/08/18 18:45 09/09/18 05:31 IV 9.09 mls/hr .Q11H7M KD Administration Protocol 0.03 U/MIN Daptomycin 610 mg/ Sodium 100 mls @ 200 mls/hr 09/10/18 13:15 09/11/18 12:42 Chloride IV 09/13/18 13:16 200 mls/hr Q24H KD Administration Phenylephrine HCl 40 mg/ 254 mls @ 38.1 mls/hr 09/10/18 10:52 09/11/18 09:16 Dextrose IV 100 mcg/min .Q6H40M PRN 38.1 mls/hr TITRATE PER MD ORDER Administration Protocol 100 MCG/MIN Dextrose 1,000 mls @ 75 mls/hr 09/10/18 10:55 09/11/18 09:18 Dextrose 5% In Water 1000 Ml IV 75 mls/hr .[id number] KD Administration Insulin Human Regular 0 units 09/03/18 12:00 09/11/18 12:43 Humulin R Low SC 1 units Q6 KD Administration Protocol Levalbuterol HCl 0.63 mg 08/18/18 08:00 09/11/18 07:35 Xopenex IH 0.63 mg [id number] KD Administration Verapamil HCl 40 mg 09/08/18 18:15 09/11/18 09:29 Calan Tab PO 40 mg Q8H KD Administration Verapamil HCl 2.5 mg 09/11/18 09:42 Verapamil Inj IVP Q6H PRN for heart rate >130 - Patient Studies Lab Studies: Microbiology Studies 09/07/18 20:40 Gram Stain - Final Other: Please Indicate Wound Culture - Preliminary No growth. 09/07/18 18:48 Body Fluid Culture - Preliminary Body Fluid - Abdominal Cavity NO GROWTH AFTER 3 DAYS 09/06/18 12:00 Blood Culture - Final Blood NO GROWTH AFTER 5 DAYS Gram Stain - Final TEST NOT PERFORMED 09/06/18 11:45 Blood Culture - Final Blood NO GROWTH AFTER 5 DAYS Gram Stain - Final TEST NOT PERFORMED Lab Studies 09/11/18 09/11/18 09/11/18 Range/Units 07:00 07:00 06:30 WBC 24.3 H (4.5-11.0) 10^3/uL RBC 3.01 L (3.5-6.1) 10^6/uL Hgb 9.4 L (14.0-18.0) g/dL Hct 28.5 L (42.0-52.0) % MCV 94.7 (80.0-105.0) fl MCH 31.2 (25.0-35.0) pg MCHC 33.0 (31.0-37.0) g/dl RDW 20.0 H (11.5-14.5) % Plt Count 92 L (120.0-450.0) 10^3/uL MPV 12.4 H (7.0-11.0) fl pCO2 27 L (35-45) mm/Hg pO2 106.0 H (80-100) mm/Hg HCO3 16.7 L (21-28) mmol/L ABG pH 7.40 (7.35-7.45) ABG Total CO2 17.5 L (22-28) mmol.L ABG O2 Saturation 100.2 H (95-98) % ABG O2 Content 12.6 L (15-23) ML/dl ABG Base Excess -7.1 L (-2.0-3.0) mmol/L ABG Hemoglobin 9.1 L (11.7-17.4) g/dL ABG Carboxyhemoglobin 2.9 H (0.5-1.5) % POC ABG HHb (Measured) -0.2 L (0-5) % ABG Methemoglobin 0.7 (0.0-3.0) % ABG O2 Capacity 12.6 L (16-24) mL/dl Hgb O2 Saturation 96.6 (95.0-98.0) % FiO2 40.0 % Sodium 138 (132-148) mmol/L Potassium 4.3 (3.6-5.0) mmol/L Chloride 105 (98-107) mmol/L Carbon Dioxide 29 (21-33) mmol/L Anion Gap 8 L (10-20) BUN 34 H (7-21) mg/dL Creatinine 0.6 L (0.8-1.5) mg/dl Est GFR ( Amer) > 60 Est GFR (Non-Af Amer) > 60 POC Glucose (mg/dL) (65-110) mg/dL Random Glucose 127 H (70-110) mg/dL Calcium 6.7 L* (8.4-10.5) mg/dL Phosphorus 2.3 L (2.5-4.5) mg/dL Magnesium 2.0 (1.7-2.2) mg/dL Total Bilirubin 5.2 H (0.2-1.3) mg/dL AST 84 H D (17-59) U/L ALT 91 H (7-56) U/L Alkaline Phosphatase 88 (38-126) U/L Total Protein 4.6 L (5.8-8.3) g/dL Albumin 2.3 L (3.0-4.8) g/dL Globulin 2.3 gm/dL Albumin/Globulin Ratio 1.0 L (1.1-1.8) 09/11/18 09/10/18 Range/Units 00:12 17:46 WBC (4.5-11.0) 10^3/uL RBC (3.5-6.1) 10^6/uL Hgb (14.0-18.0) g/dL Hct (42.0-52.0) % MCV (80.0-105.0) fl MCH (25.0-35.0) pg MCHC (31.0-37.0) g/dl RDW (11.5-14.5) % Plt Count (120.0-450.0) 10^3/uL MPV (7.0-11.0) fl pCO2 (35-45) mm/Hg pO2 (80-100) mm/Hg HCO3 (21-28) mmol/L ABG pH (7.35-7.45) ABG Total CO2 (22-28) mmol.L ABG O2 Saturation (95-98) % ABG O2 Content (15-23) ML/dl ABG Base Excess (-2.0-3.0) mmol/L ABG Hemoglobin (11.7-17.4) g/dL ABG Carboxyhemoglobin (0.5-1.5) % POC ABG HHb (Measured) (0-5) % ABG Methemoglobin (0.0-3.0) % ABG O2 Capacity (16-24) mL/dl Hgb O2 Saturation (95.0-98.0) % FiO2 % Sodium (132-148) mmol/L Potassium (3.6-5.0) mmol/L Chloride (98-107) mmol/L Carbon Dioxide (21-33) mmol/L Anion Gap (10-20) BUN (7-21) mg/dL Creatinine (0.8-1.5) mg/dl Est GFR ( Amer) Est GFR (Non-Af Amer) POC Glucose (mg/dL) 174 H 202 H (65-110) mg/dL Random Glucose (70-110) mg/dL Calcium (8.4-10.5) mg/dL Phosphorus (2.5-4.5) mg/dL Magnesium (1.7-2.2) mg/dL Total Bilirubin (0.2-1.3) mg/dL AST (17-59) U/L ALT (7-56) U/L Alkaline Phosphatase (38-126) U/L Total Protein (5.8-8.3) g/dL Albumin (3.0-4.8) g/dL Globulin gm/dL Albumin/Globulin Ratio (1.1-1.8) Laboratory Results - last 24 hr 09/10/18 09/11/18 09/11/18 17:46 00:12 06:30 WBC RBC Hgb Hct MCV MCH MCHC RDW Plt Count MPV pCO2 27 L pO2 106.0 H HCO3 16.7 L ABG pH 7.40 ABG Total CO2 17.5 L ABG O2 Saturation 100.2 H ABG O2 Content 12.6 L ABG Base Excess -7.1 L ABG Hemoglobin 9.1 L ABG Carboxyhemoglobin 2.9 H POC ABG HHb (Measured) -0.2 L ABG Methemoglobin 0.7 ABG O2 Capacity 12.6 L Hgb O2 Saturation 96.6 FiO2 40.0 Sodium Potassium Chloride Carbon Dioxide Anion Gap BUN Creatinine Est GFR ( Amer) Est GFR (Non-Af Amer) POC Glucose (mg/dL) 202 H 174 H Random Glucose Calcium Phosphorus Magnesium Total Bilirubin AST ALT Alkaline Phosphatase Total Protein Albumin Globulin Albumin/Globulin Ratio 09/11/18 09/11/18 07:00 07:00 WBC 24.3 H RBC 3.01 L Hgb 9.4 L Hct 28.5 L MCV 94.7 MCH 31.2 MCHC 33.0 RDW 20.0 H Plt Count 92 L MPV 12.4 H pCO2 pO2 HCO3 ABG pH ABG Total CO2 ABG O2 Saturation ABG O2 Content ABG Base Excess ABG Hemoglobin ABG Carboxyhemoglobin POC ABG HHb (Measured) ABG Methemoglobin ABG O2 Capacity Hgb O2 Saturation FiO2 Sodium 138 Potassium 4.3 Chloride 105 Carbon Dioxide 29 Anion Gap 8 L BUN 34 H Creatinine 0.6 L Est GFR ( Amer) > 60 Est GFR (Non-Af Amer) > 60 POC Glucose (mg/dL) Random Glucose 127 H Calcium 6.7 L* Phosphorus 2.3 L Magnesium 2.0 Total Bilirubin 5.2 H AST 84 H D ALT 91 H Alkaline Phosphatase 88 Total Protein 4.6 L Albumin 2.3 L Globulin 2.3 Albumin/Globulin Ratio 1.0 L Critical Care Progress Note - Nutrition Nutrition: Nutrition Category Date Time Status NPO Diet [DIET] Diets 09/02/18 Lunch Ordered Addendum Addendum: 09/11/18 14:13 MICU ATTENDING ADDENDUM: Patient seen and examined. Case discussed in round with housestaff. Agree with note above with the following additions/exception: 82 M with hx of rectal cancer s/p total colectomy, zenker's diverticulum, thr ombocytopenia, stent placement for AAA, seizure disorder, hypertension, hyperlipidemia, atrial fibrillation on eliquis s/p polyp removal with parastomal hernia repair, with multi organ failure, and recurrent lung collapse resolved iwth bronch x 3 now s/p trach(09/07) and started on HD. Continues to require pressors to keep his BP stable especially during HD. Trial HD today. Pressors switched to phenylephrine due to tachycardia. Digoxin started by cardio. Remains vent dependant. Cont PRVC for now. Sedation vacation daily Etiology of shock unclear. I do not think this is septic shock given all of his cultures from 09/06 are NEGATIVE. ID on board. I recommend stopping all abx at this time but will defer final decision to ID and surgical team. I suspect he is HYPERvolemic since he is >10L positive over the last week. HD has been challenging but he would benefit from an A-line to ensure reading are accuarte. It is imperative to not give him any more fluids if possible. He likes is on the other end of the starling curve thus significantly reducing cardiac contractility. A trial of milrinone may help as well. Rest of care above Yeni Keys MD Pulmonary Critical Care and Sleep Medicine Critical Care Time: 35mins
--- NOTE | 2018-09-11 14:17 | RAD ---
Date of service: 09/11/2018 HISTORY: f/u COMPARISON: No prior. FINDINGS: In situ tracheostomy tube in good position.. In situ feeding tube the tip of which lies left upper quadrant of the abdomen. In situ right IJ central line with tip in the SVC/RA junction again noted. LUNGS: Dense opacity left lung base likely representing some combination of atelectasis and/or infiltrate with small size left-sided effusion. Improved atelectasis and/or infiltrate right lung base with suspected tiny right-sided effusion PLEURA: As above. No pneumothorax apparent. CARDIOVASCULAR: Mild moderate aortic atherosclerotic calcification present. Cardiomegaly.. No pulmonary vascular congestion. OSSEOUS STRUCTURES: No significant abnormalities. VISUALIZED UPPER ABDOMEN: Normal. OTHER FINDINGS: None. IMPRESSION: Support lines and tubes as above. LUNGS: Support lines and tubes as above. Dense opacity left lung base likely representing some combination of atelectasis and/or infiltrate with small to medium size left-sided effusion. Improved atelectasis and/or infiltrate right lung base with suspected tiny right-sided effusion
--- NOTE | 2018-09-11 15:05 | PN ---
DATE: 09/11/2018 SUBJECTIVE: The patient is 82 years old, seen and examined. He has respiratory distress. He was given dialysis this morning, became hypotensive. Dialysis was stopped. He looks pale and short of breath. PHYSICAL EXAMINATION: VITAL SIGNS: He is afebrile, pulse 102, respirations 26, and blood pressure 141/117. LUNGS: Bilateral poor airflow. HEART: S1 and S2 audible, tachycardic. ABDOMEN: Soft, colostomy is functional. EXTREMITIES: Bilateral leg, no edema. LABORATORY DATA: WBC is 24.3, hemoglobin 9.4, hematocrit 28.5, and platelets of 92. Chemistry: Sodium 138, potassium is pending, chloride 105, CO2 of 29, BUN 34, creatinine 0.6, and blood sugar of 127. ASSESSMENT: 1. Respiratory failure. 2. Sepsis. 3. . 4. Atrial fibrillation. 5. Seizure disorder. 6. Status post right hemicolectomy. 7. Status post tracheostomy. PLAN: Currently, the patient's hemodialysis is discontinued because of hypotension and he is on antibiotics. The patient has very poor prognosis. We will reach out to the family for possible . Tri Fleming MD
--- NOTE | 2018-09-11 17:59 | PN ---
DATE: 09/11/2018 SUBJECTIVE: He is comfortable in bed, developed hypotension during dialysis and dialysis was interrupted. Respiratory distress. 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 REVIEW OF SYSTEMS: As per HPI. Rest of 12-point review of systems reviewed and negative. PHYSICAL EXAMINATION GENERAL: Comfortable. Mild respiratory distress. VITAL SIGNS: Afebrile. Heart rate is 102; respiratory rate 25 per minute; blood pressure lowest rate systolic 68, current 114/60. HEENT: Pallor positive. LUNGS: Bilateral air entry present and equal. ABDOMEN: Soft, nontender. Colostomy functional. EXTREMITIES: Bilaterally no edema. LABORATORY DATA: White count 24.3, hemoglobin 9.4, hematocrit 28.5, platelets 92. Sodium 138, BUN 34, creatinine 0.6, blood sugar 127. ASSESSMENT: Leukocytosis, anemia, thrombocytopenia, respiratory failure, sepsis, atrial fibrillation, seizure disorder, status post right hemicolectomy, status post tracheostomy. PLAN: Currently, he is on hemodialysis. He is on pressor agents. White count elevated at 24k.. Hemoglobin stable at 9.4. He received several units of blood transfusion. He also has ITP. Platelet count stable at 92,000. Prognosis is poor. We will continue supportive care. Lesia Ledezma MD MTDD
--- NOTE | 2018-09-11 19:05 | PN ---
DATE: 09/11/2018 SUBJECTIVE: The patient has had a second attempt of hemodialysis which demonstrated clearing of BUN and creatinine but inability to ultrafiltrate due to drop in blood pressure. The patient is now on two pressor agents and has a blood pressure of 105 to 110 at this point. Family members (daughter and ) are present and the hospital course was explained including the present situation. The plan for the hemodialysis was short term to provide renal support and allow for recovery of the renal function. The patient has gained over 20 pounds in the last 5 days and is not coming back as quickly as hoped, and the possibility of eventual demise was fully explained at this point and will be further explained to the family power of environmental attorney, the patient's son, Abelardo Thao. Attempt yesterday to change the Shiley catheter to a longer catheter to fit up into the inferior vena cava and allow better ultrafiltration was done; however, the patient's cardiac condition did not tolerate, the loss in volume became hypotensive with pressures measuring 60 systolic. The patient's initial cultures were done 12 hours after the 103 temperature and are still not demonstrating source for the sepsis; however, one of the central lines from the left arm (PICC) has Gram stain on the tip, demonstrating gram-positive cocci. This may be the source of the sepsis, and the patient is presently on meropenem and daptomycin for this. Earlier attempts at discussing LTACH transfer required all consultants to be in agreement that the patient was stable for discharge and the family insisted that all the consultants agreed before he could be transferred. The nephrology provider relations consultant recommended hemodialysis. The cardiac provider relations consultant was not clear that the patient should be transferred with two vasopressors running but was told that the attending physician agreed with the transfer and so he would not disagree with the attending physician. The patient's prognosis remains grave, and unless the patient clears the renal insufficiency, multisystem organ failure, congestive heart failure, and he is able to tolerate hemodialysis, discussion will be initiated regarding palliative care, which the family is beginning to understand. Rocael Du MD
[2018-09-11] MEDS: HYDROmorphone 0.5 mg/0.5 ml ISec IVP PRN (19:45)
[2018-09-12] MEDS ORDERED: DOPamine 400mg/250ml D5W 400 MG/250 ML BAG IV ONE (01:00)
[2018-09-12] MEDS: Levalbuterol 0.63 MG/3 ML Inhal Soln UD IH SCH ×4 (01:33→19:58)
[2018-09-12] MEDS ORDERED: Labetalol 5 mg/ml Inj 20ML IV ONE (01:36)
[2018-09-12] MEDS ORDERED: Labetalol 5mg/ml (4ml) IV ONE (01:45)
[2018-09-12] MEDS: Insulin Reg-LOW-Coverage SC SCH ×5 (02:00→18:55)
[2018-09-12] MEDS: HYDROmorphone 0.5 mg/0.5 ml ISec IVP PRN ×3 (02:01→21:45)
[2018-09-12 05:47] LABS: ARTERIAL BLOOD GAS HCO3 19.6 mmol/L (21-28); ARTERIAL BLOOD GAS HEMOGLOBIN 8.9 g/dL (11.7-17.4); ARTERIAL BLOOD GAS O2 CAPACITY 12.4 mL/dl (16-24); ARTERIAL BLOOD GAS O2 CONTENT 12.4 ML/dl (15-23); ARTERIAL BLOOD GAS O2 SAT 100.3 % (95-98); ARTERIAL BLOOD GAS PCO2 24 mm/Hg (35-45); ARTERIAL BLOOD GAS PH 7.52 (7.35-7.45); ARTERIAL BLOOD GAS TCO2 20.3 mmol.L (22-28)
[2018-09-12 06:46] LABS: HEMOGLOBIN 8.8 g/dL (14.0-18.0); MEAN CELL VOLUME 91.3 fl (80.0-105.0); MEAN CORPUSCULAR HEMOGLOBIN 30.4 pg (25.0-35.0); MEAN CORPUSCULAR HGB CONC 33.3 g/dl (31.0-37.0); RBC 2.89 10^6/uL (3.5-6.1); WHITE BLOOD COUNT 12.7 10^3/uL (4.5-11.0)
[2018-09-12 06:47] LABS: MEAN PLATELET VOLUME 11.8 fl (7.0-11.0); RED CELL DISTRIBUTION WIDTH 19.5 % (11.5-14.5)
[2018-09-12] MEDS: Budesonide 0.5 mg/2 ml Inhal Susp UD IH SCH ×2 (07:26→19:59)
[2018-09-12 07:31] LABS: ALB/GLOB RATIO 1.1 (1.1-1.8); ALBUMIN 2.2 g/dL (3.0-4.8); ALT/SGPT 81 U/L (7-56); AST/SGOT 77 U/L (17-59); BLOOD UREA NITROGEN 79 mg/dL (7-21); CALCIUM 7.1 mg/dL (8.4-10.5); GFR NON-AFRICAN AMERICAN 53
--- NOTE | 2018-09-12 08:01 | CP.PCM.PN ---
Subjective - Date & Time of Evaluation Date of Evaluation: 09/12/18 Time of Evaluation: 07:30 - Subjective Subjective: Progress note for Dr. Du Pt seen and examined at bedside this AM. Patient had dialysis last night and per nursing had elevated HR in the 160's and hypotension so it had to be stopped. Pt awake this AM but non-communicative, no acute distress, not on pressors. Objective - Vital Signs/Intake and Output Vital Signs (last 24 hours): Temp Pulse Resp BP Pulse Ox 98.7 F 103 H 26 H 132/80 99 09/11/18 20:00 09/11/18 22:00 09/11/18 04:00 09/11/18 18:00 09/11/18 18:00 Intake and Output: 09/12/18 09/12/18 06:59 18:59 Intake Total 0 Balance 0 - Medications Medications: Current Medications Acetylcysteine (Acetylcysteine 20%) 4 ml IH [id number] [facility] Last Admin: 09/04/18 20:05 Dose: Not Given Aspirin (Aspirin Chewable) 81 mg PO DAILY [facility] Last Admin: 09/11/18 09:21 Dose: 81 mg Budesonide (Pulmicort Respules) 0.5 mg IH [id number] [facility] Last Admin: 09/12/18 07:26 Dose: 0.5 mg Calcium Acetate (Phoslo) 667 mg GT TID [facility] Last Admin: 09/11/18 17:56 Dose: 667 mg Dextrose (Dextrose 50% Inj) 0 ml IV STAT PRN; Protocol PRN Reason: Hypoglycemia Protocol Famotidine (Pepcid) 20 mg PO DAILY [facility] Last Admin: 09/11/18 09:31 Dose: 20 mg Heparin Sodium (Porcine) (Heparin) 5,000 units SC Q8 KD; Protocol Last Admin: 09/12/18 05:55 Dose: 5,000 units Heparin Sodium (Porcine) (Heparin) 5,000 units IV POSTDI PRN PRN Reason: CATH PROPH Hydrocortisone Sodium Succinate (Solu-Cortef) 50 mg IVP Q12H [facility] Last Admin: 09/11/18 21:56 Dose: 50 mg Hydromorphone HCl (Dilaudid) 0.5 mg IVP Q4H PRN PRN Reason: Pain, moderate (4-7) Last Admin: 09/12/18 05:55 Dose: 0.5 mg Propofol (Diprivan) 1,000 mg in 100 mls @ 1.757 mls/hr IV .Q24H PRN; Protocol PRN Reason: TITRATE PER MD ORDER Last Titration: 09/08/18 09:00 Dose: 0 mcg/kg/min, 0 mls/hr Dextrose (Dextrose 5% In Water 1000 Ml) 1,000 mls @ 0 mls/hr IV .Q0M PRN; Protocol PRN Reason: Hypoglycemia Protocol Last Admin: 09/08/18 10:00 Dose: 100 mls/hr Vasopressin 20 units/ Dextrose 101 mls @ 9.09 mls/hr IV .Q11H7M KD; Protocol Last Admin: 09/09/18 05:31 Dose: 9.09 mls/hr Daptomycin 610 mg/ Sodium (Chloride) 100 mls @ 200 mls/hr IV Q24H KD Stop: 09/13/18 13:16 Last Admin: 09/11/18 12:42 Dose: 200 mls/hr Phenylephrine HCl 40 mg/ (Dextrose) 254 mls @ 38.1 mls/hr IV .Q6H40M PRN; Protocol PRN Reason: TITRATE PER MD ORDER Last Titration: 09/11/18 21:56 Dose: 0 mcg/min, 0 mls/hr Dextrose (Dextrose 5% In Water 1000 Ml) 1,000 mls @ 75 mls/hr IV .[id number] KD Last Admin: 09/12/18 05:56 Dose: 75 mls/hr Insulin Human Regular (Humulin R Low) 0 units SC Q6 KD; Protocol Last Admin: 09/12/18 05:55 Dose: Not Given Levalbuterol HCl (Xopenex) 0.63 mg IH [id number] KD Last Admin: 09/12/18 07:26 Dose: 0.63 mg Verapamil HCl (Calan Tab) 40 mg PO Q8H KD Last Admin: 09/12/18 02:49 Dose: Not Given Verapamil HCl (Verapamil Inj) 2.5 mg IVP Q6H PRN PRN Reason: for heart rate >130 - Labs Labs: 09/12/18 06:20 09/12/18 06:20 PT 15.1 SECONDS (9.4-12.5) H 09/06/18 05:01 INR 1.31 09/06/18 05:01 APTT 31.7 Seconds (25.1-36.5) 09/06/18 05:01 - Constitutional Appears: No Acute Distress, Chronically Ill - Head Exam Head Exam: ATRAUMATIC, NORMOCEPHALIC - Eye Exam Eye Exam: Normal appearance. absent: Conjunctival injection, Scleral icterus - ENT Exam ENT Exam: Mucous Membranes Moist Additional comments: NGT in place - Neck Exam Additional comments: TLC in the right IJ, tracheostomy in place - Respiratory Exam Respiratory Exam: absent: Accessory Muscle Use, Respiratory Distress Additional comments: ventilated through tracheostomy - Cardiovascular Exam Cardiovascular Exam: RRR - GI/Abdominal Exam GI & Abdominal Exam: Soft. absent: Distended, Tenderness Additional comments: mayra drain in the RLQ with serosanguinous fluid output, ostomy patent, liquid output - Extremities Exam Extremities Exam: Pedal Edema. absent: Calf Tenderness - Neurological Exam Neurological Exam: Awake - Psychiatric Exam Psychiatric exam: Normal Affect, Normal Mood - Skin Skin Exam: Dry, Normal Color, Warm Assessment and Plan - Assessment and Plan (Free Text) Assessment: 82M several weeks s/p ex lap w/ileal perforation repair POD#5 s/p tracheostomy for respiratory failure requiring mechanical ventilation resolved VRE+ peritonitis Renal failure requiring hemodialysis--not tolerated by patient Plan: patient has a very dismal prognosis at this time with with respiratory failure, renal failure, as well as many other comorbidities Will continue to discuss goals of care with family Continue to trend CBC and CMP PRN pain medication Continue antibiotic therapy Continue to monitor intake and output Will re-attempt HD today Continue current medical therapy per the ICU Discussed with Dr. Du, Further recommendations per him Ronda Lau, PGY2
--- NOTE | 2018-09-12 10:09 | RAD ---
Date of service: 09/12/2018 HISTORY: f/u COMPARISON: No prior. FINDINGS: Situ tracheostomy tube good position. Feeding tube tip lies left upper abdomen overlying the gastric air shadow. Right IJ central line with its tip in the SVC/RA junction LUNGS: Bibasilar opacities likely represent some combination of atelectasis/infiltrates and bilateral effusions. PLEURA: As above. No pneumothorax apparent. CARDIOVASCULAR: Mild aortic atherosclerotic calcification present. Cardiomegaly. No pulmonary vascular congestion. OSSEOUS STRUCTURES: No significant abnormalities. VISUALIZED UPPER ABDOMEN: Normal. OTHER FINDINGS: None. IMPRESSION: Bibasilar opacities likely represent some combination of atelectasis/infiltrates and bilateral effusions.
--- NOTE | 2018-09-12 12:05 | CP.CCUPN ---
<Godfrey Lehman - Last Filed: 09/12/18 14:41> CCU Subjective - Physician Review Subjective (Free Text): Godfrey Lehman, PGY1 ICU Progress Note for Dr. Keys Patient was seen and examined at bedside this morning. Patient is currently off pressors and sedation. Tracheostomy tube, NG tube, anthony, R-IJ, ostomy bag, RUSSELL drain, and shiley catheter is in place. Patient is awake, alert, and briefly following commands. He is still unable to provide a reliable ROS. BP noted to be 132/80 this morning. Patient has not been tolerating his HD sessions appropriately due to hypotensive episodes. Afebrile overnight, no adverse overnight events. CCU Objective - Vital Signs / Intake & Output Vital Signs (Last 4 hours): Vital Signs Pulse BP Pulse Ox 09/12/18 11:00 97 H 119/61 100 09/12/18 10:45 92 H 153/66 H 100 09/12/18 10:30 94 H 132/91 H 100 09/12/18 10:15 96 H 117/51 L 100 09/12/18 10:06 98 H 136/55 L 09/12/18 10:00 95 H 136/55 L 100 09/12/18 09:45 87 126/95 H 100 09/12/18 09:30 101 H 121/64 100 09/12/18 09:15 101 H 140/60 100 09/12/18 09:00 94 H 112/52 L 100 09/12/18 08:45 92 H 129/54 L 100 09/12/18 08:30 94 H 116/40 L 100 09/12/18 08:15 95 H 107/65 100 Intake and Output (Last 8hrs): Intake & Output 09/11/18 09/12/18 09/12/18 22:59 06:59 14:59 Intake Total 1584 3660 Output Total 1380 1170 Balance 204 2490 Weight 68.946 kg Intake: IV 1104 3180 0.9 ns 1200 Clinimix 996 Left Upper arm 900 900 Propofol 84 Tube Feeding 480 480 Output: Drainage 1160 600 Colostomy 1000 500 Right Abdomen 160 100 Urine 220 520 Condom 220 220 Urethral (Anthony) 300 Other 50 Other: # Bowel Movements 0 - Physical Exam Head: Positive for: Atraumatic, Normocephalic, Other (R-IJ in place. ) Pupils: Positive for: Sluggish Extroacular Muscles: Positive for: EOMI Conjunctiva: Positive for: Normal Mouth: Positive for: Moist Mucous Membranes Pharnyx: Positive for: Normal Nose (External): Positive for: Other (NG tube in place) Neck: Positive for: Other (Tracheostomy tube in place). Negative for: JVD, Lymphadenopathy, Bruit Respiratory/Chest: Positive for: Clear to Auscultation. Negative for: Respiratory Distress, Accessory Muscle Use, Wheezes, Rales, Rhonchi Cardiovascular: Positive for: Regular Rate and Rhythm, Peripheal Pulses Present Abdomen: Positive for: Normal Bowel Sounds, Other ( Colostomy bag in place. RUSSELL drain in place. ). Negative for: Tenderness, Distention, Peritoneal Signs, Rebound, Mass/Organomegaly Genitourinary Male: Positive for: Other (Anthony in place. Shiley catheter in the R-groin. ) Upper Extremity: Positive for: NORMAL PULSES. Negative for: Edema Lower Extremity: Positive for: NORMAL PULSES, Other (No pitting edema noted on bilateral low ext. ). Negative for: Edema, CALF TENDERNESS Skin: Positive for: Warm, Dry, Normal Color Psychiatric: Positive for: Alert. Negative for: Oriented x 3 - Medications Active Medications: Active Medications Generic Name Dose Route Start Last Admin Trade Name Freq PRN Reason Stop Dose Admin Acetylcysteine 4 ml 09/02/18 08:00 09/04/18 20:05 Acetylcysteine 20% IH Not Given [id number] Aspirin 81 mg 09/05/18 11:30 09/12/18 10:06 Aspirin Chewable PO 81 mg DAILY KD Administration Budesonide 0.5 mg 08/13/18 08:00 09/12/18 07:26 Pulmicort Respules IH 0.5 mg [id number] KD Administration Calcium Acetate 667 mg 09/10/18 10:00 09/12/18 10:07 Phoslo GT 667 mg TID KD Administration Dextrose 0 ml 09/05/18 15:56 Dextrose 50% Inj IV STAT PRN Hypoglycemia Protocol Protocol Famotidine 20 mg 08/21/18 10:00 09/12/18 10:07 Pepcid PO 20 mg DAILY KD Administration Heparin Sodium (Porcine) 5,000 units 09/08/18 14:00 09/12/18 05:55 Heparin SC 5,000 units Q8 KD Administration Protocol Heparin Sodium (Porcine) 5,000 units 09/10/18 11:57 Heparin IV POSTDI PRN CATH PROPH Hydralazine HCl 10 mg 09/12/18 09:22 Apresoline PO QID PRN for sbp>170 Hydrocortisone Sodium Succinate 50 mg 09/09/18 08:45 09/12/18 10:07 Solu-Cortef IVP 50 mg Q12H KD Administration Hydromorphone HCl 0.5 mg 09/10/18 09:50 09/12/18 05:55 Dilaudid IVP 0.5 mg Q4H PRN Administration Pain, moderate (4-7) Propofol 1,000 mg in 100 mls @ 1.757 mls/hr 09/02/18 09:00 09/08/18 09:00 Diprivan IV 0 mcg/kg/min .Q24H PRN 0 mls/hr TITRATE PER MD ORDER Titration Protocol 5 MCG/KG/MIN Dextrose 1,000 mls @ 0 mls/hr 09/05/18 15:56 09/08/18 10:00 Dextrose 5% In Water 1000 Ml IV 100 mls/hr .Q0M PRN Administration Hypoglycemia Protocol Protocol Per Protocol Vasopressin 20 units/ Dextrose 101 mls @ 9.09 mls/hr 09/08/18 18:45 09/09/18 05:31 IV 9.09 mls/hr .Q11H7M KD Administration Protocol 0.03 U/MIN Daptomycin 610 mg/ Sodium 100 mls @ 200 mls/hr 09/10/18 13:15 09/11/18 12:42 Chloride IV 09/13/18 13:16 200 mls/hr Q24H KD Administration Phenylephrine HCl 40 mg/ 254 mls @ 38.1 mls/hr 09/10/18 10:52 09/11/18 21:56 Dextrose IV 0 mcg/min .Q6H40M PRN 0 mls/hr TITRATE PER MD ORDER Titration Protocol 100 MCG/MIN Dextrose 1,000 mls @ 75 mls/hr 09/10/18 10:55 09/12/18 05:56 Dextrose 5% In Water 1000 Ml IV 75 mls/hr .[id number] KD Administration Insulin Human Regular 0 units 09/03/18 12:00 09/12/18 05:55 Humulin R Low SC Not Given Q6 KD Protocol Levalbuterol HCl 0.63 mg 08/18/18 08:00 09/12/18 07:26 Xopenex IH 0.63 mg [id number] KD Administration Verapamil HCl 40 mg 09/08/18 18:15 09/12/18 10:06 Calan Tab PO 40 mg Q8H KD Administration Verapamil HCl 2.5 mg 09/11/18 09:42 Verapamil Inj IVP Q6H PRN for heart rate >130 - Patient Studies Lab Studies: Microbiology Studies 09/07/18 20:40 Gram Stain - Final Other: Please Indicate Wound Culture - Preliminary No growth. 09/07/18 18:48 Body Fluid Culture - Preliminary Body Fluid - Abdominal Cavity NO GROWTH AFTER 3 DAYS 09/06/18 12:00 Blood Culture - Final Blood NO GROWTH AFTER 5 DAYS Gram Stain - Final TEST NOT PERFORMED 09/06/18 11:45 Blood Culture - Final Blood NO GROWTH AFTER 5 DAYS Gram Stain - Final TEST NOT PERFORMED Lab Studies 09/12/18 09/12/18 09/12/18 Range/Units 07:09 06:20 06:20 WBC 12.7 H D (4.5-11.0) 10^3/uL RBC 2.89 L (3.5-6.1) 10^6/uL Hgb 8.8 L (14.0-18.0) g/dL Hct 26.4 L (42.0-52.0) % MCV 91.3 D (80.0-105.0) fl MCH 30.4 (25.0-35.0) pg MCHC 33.3 (31.0-37.0) g/dl RDW 19.5 H (11.5-14.5) % Plt Count 74 L (120.0-450.0) 10^3/uL MPV 11.8 H (7.0-11.0) fl pCO2 (35-45) mm/Hg pO2 (80-100) mm/Hg HCO3 (21-28) mmol/L ABG pH (7.35-7.45) ABG Total CO2 (22-28) mmol.L ABG O2 Saturation (95-98) % ABG O2 Content (15-23) ML/dl ABG Base Excess (-2.0-3.0) mmol/L ABG Hemoglobin (11.7-17.4) g/dL ABG Carboxyhemoglobin (0.5-1.5) % POC ABG HHb (Measured) (0-5) % ABG Methemoglobin (0.0-3.0) % ABG O2 Capacity (16-24) mL/dl Hgb O2 Saturation (95.0-98.0) % FiO2 % Sodium 131 L (132-148) mmol/L Potassium 4.2 (3.6-5.0) mmol/L Chloride 102 (98-107) mmol/L Carbon Dioxide 22 (21-33) mmol/L Anion Gap 11 (10-20) BUN 79 H (7-21) mg/dL Creatinine 1.3 (0.8-1.5) mg/dl Est GFR ( Amer) > 60 Est GFR (Non-Af Amer) 53 POC Glucose (mg/dL) 126 H (65-110) mg/dL Random Glucose 129 H (70-110) mg/dL Calcium 7.1 L (8.4-10.5) mg/dL Phosphorus 5.1 H (2.5-4.5) mg/dL Magnesium 2.0 (1.7-2.2) mg/dL Total Bilirubin 5.2 H (0.2-1.3) mg/dL AST 77 H (17-59) U/L ALT 81 H (7-56) U/L Alkaline Phosphatase 71 (38-126) U/L Total Protein 4.1 L (5.8-8.3) g/dL Albumin 2.2 L (3.0-4.8) g/dL Globulin 2.0 gm/dL Albumin/Globulin Ratio 1.1 (1.1-1.8) 09/12/18 09/12/18 09/11/18 Range/Units 05:00 00:11 17:36 WBC (4.5-11.0) 10^3/uL RBC (3.5-6.1) 10^6/uL Hgb (14.0-18.0) g/dL Hct (42.0-52.0) % MCV (80.0-105.0) fl MCH (25.0-35.0) pg MCHC (31.0-37.0) g/dl RDW (11.5-14.5) % Plt Count (120.0-450.0) 10^3/uL MPV (7.0-11.0) fl pCO2 24 L (35-45) mm/Hg pO2 116.0 H (80-100) mm/Hg HCO3 19.6 L (21-28) mmol/L ABG pH 7.52 H (7.35-7.45) ABG Total CO2 20.3 L (22-28) mmol.L ABG O2 Saturation 100.3 H (95-98) % ABG O2 Content 12.4 L (15-23) ML/dl ABG Base Excess -2.4 L (-2.0-3.0) mmol/L ABG Hemoglobin 8.9 L (11.7-17.4) g/dL ABG Carboxyhemoglobin 2.4 H (0.5-1.5) % POC ABG HHb (Measured) -0.3 L (0-5) % ABG Methemoglobin 0.9 (0.0-3.0) % ABG O2 Capacity 12.4 L (16-24) mL/dl Hgb O2 Saturation 97.0 (95.0-98.0) % FiO2 30.0 % Sodium (132-148) mmol/L Potassium (3.6-5.0) mmol/L Chloride (98-107) mmol/L Carbon Dioxide (21-33) mmol/L Anion Gap (10-20) BUN (7-21) mg/dL Creatinine (0.8-1.5) mg/dl Est GFR ( Amer) Est GFR (Non-Af Amer) POC Glucose (mg/dL) 120 H 129 H (65-110) mg/dL Random Glucose (70-110) mg/dL Calcium (8.4-10.5) mg/dL Phosphorus (2.5-4.5) mg/dL Magnesium (1.7-2.2) mg/dL Total Bilirubin (0.2-1.3) mg/dL AST (17-59) U/L ALT (7-56) U/L Alkaline Phosphatase (38-126) U/L Total Protein (5.8-8.3) g/dL Albumin (3.0-4.8) g/dL Globulin gm/dL Albumin/Globulin Ratio (1.1-1.8) 09/11/18 09/11/18 Range/Units 11:46 07:00 WBC (4.5-11.0) 10^3/uL RBC (3.5-6.1) 10^6/uL Hgb (14.0-18.0) g/dL Hct (42.0-52.0) % MCV (80.0-105.0) fl MCH (25.0-35.0) pg MCHC (31.0-37.0) g/dl RDW (11.5-14.5) % Plt Count (120.0-450.0) 10^3/uL MPV (7.0-11.0) fl pCO2 (35-45) mm/Hg pO2 (80-100) mm/Hg HCO3 (21-28) mmol/L ABG pH (7.35-7.45) ABG Total CO2 (22-28) mmol.L ABG O2 Saturation (95-98) % ABG O2 Content (15-23) ML/dl ABG Base Excess (-2.0-3.0) mmol/L ABG Hemoglobin (11.7-17.4) g/dL ABG Carboxyhemoglobin (0.5-1.5) % POC ABG HHb (Measured) (0-5) % ABG Methemoglobin (0.0-3.0) % ABG O2 Capacity (16-24) mL/dl Hgb O2 Saturation (95.0-98.0) % FiO2 % Sodium (132-148) mmol/L Potassium 4.3 (3.6-5.0) mmol/L Chloride (98-107) mmol/L Carbon Dioxide (21-33) mmol/L Anion Gap 8 L (10-20) BUN (7-21) mg/dL Creatinine (0.8-1.5) mg/dl Est GFR ( Amer) Est GFR (Non-Af Amer) POC Glucose (mg/dL) 178 H (65-110) mg/dL Random Glucose (70-110) mg/dL Calcium (8.4-10.5) mg/dL Phosphorus (2.5-4.5) mg/dL Magnesium (1.7-2.2) mg/dL Total Bilirubin (0.2-1.3) mg/dL AST (17-59) U/L ALT (7-56) U/L Alkaline Phosphatase (38-126) U/L Total Protein (5.8-8.3) g/dL Albumin (3.0-4.8) g/dL Globulin gm/dL Albumin/Globulin Ratio (1.1-1.8) Laboratory Results - last 24 hr 09/11/18 09/11/18 09/11/18 07:00 11:46 17:36 WBC RBC Hgb Hct MCV MCH MCHC RDW Plt Count MPV pCO2 pO2 HCO3 ABG pH ABG Total CO2 ABG O2 Saturation ABG O2 Content ABG Base Excess ABG Hemoglobin ABG Carboxyhemoglobin POC ABG HHb (Measured) ABG Methemoglobin ABG O2 Capacity Hgb O2 Saturation FiO2 Sodium Potassium 4.3 Chloride Carbon Dioxide Anion Gap 8 L BUN Creatinine Est GFR ( Amer) Est GFR (Non-Af Amer) POC Glucose (mg/dL) 178 H 129 H Random Glucose Calcium Phosphorus Magnesium Total Bilirubin AST ALT Alkaline Phosphatase Total Protein Albumin Globulin Albumin/Globulin Ratio 09/12/18 09/12/18 09/12/18 00:11 05:00 06:20 WBC 12.7 H D RBC 2.89 L Hgb 8.8 L Hct 26.4 L MCV 91.3 D MCH 30.4 MCHC 33.3 RDW 19.5 H Plt Count 74 L MPV 11.8 H pCO2 24 L pO2 116.0 H HCO3 19.6 L ABG pH 7.52 H ABG Total CO2 20.3 L ABG O2 Saturation 100.3 H ABG O2 Content 12.4 L ABG Base Excess -2.4 L ABG Hemoglobin 8.9 L ABG Carboxyhemoglobin 2.4 H POC ABG HHb (Measured) -0.3 L ABG Methemoglobin 0.9 ABG O2 Capacity 12.4 L Hgb O2 Saturation 97.0 FiO2 30.0 Sodium Potassium Chloride Carbon Dioxide Anion Gap BUN Creatinine Est GFR ( Amer) Est GFR (Non-Af Amer) POC Glucose (mg/dL) 120 H Random Glucose Calcium Phosphorus Magnesium Total Bilirubin AST ALT Alkaline Phosphatase Total Protein Albumin Globulin Albumin/Globulin Ratio 09/12/18 09/12/18 06:20 07:09 WBC RBC Hgb Hct MCV MCH MCHC RDW Plt Count MPV pCO2 pO2 HCO3 ABG pH ABG Total CO2 ABG O2 Saturation ABG O2 Content ABG Base Excess ABG Hemoglobin ABG Carboxyhemoglobin POC ABG HHb (Measured) ABG Methemoglobin ABG O2 Capacity Hgb O2 Saturation FiO2 Sodium 131 L Potassium 4.2 Chloride 102 Carbon Dioxide 22 Anion Gap 11 BUN 79 H Creatinine 1.3 Est GFR ( Amer) > 60 Est GFR (Non-Af Amer) 53 POC Glucose (mg/dL) 126 H Random Glucose 129 H Calcium 7.1 L Phosphorus 5.1 H Magnesium 2.0 Total Bilirubin 5.2 H AST 77 H ALT 81 H Alkaline Phosphatase 71 Total Protein 4.1 L Albumin 2.2 L Globulin 2.0 Albumin/Globulin Ratio 1.1 Fingerstick Blood Sugar Results: 129 Review of Systems - Review of Systems Systems not reviewed;Unavailable: Other (Poor capacity) Critical Care Progress Note - Ventilator Checklist Head of Bed 30 Degrees: Yes Daily Sedation Vacation: Yes Daily Assessment of Readiness to Wean: Yes Daily Spontaneous Breathing Trial: Yes PUD Prophalyxis: Yes DVT Prophylaxis: Yes Oral Care with Chlorhexidine Gluconate {CHG}: Yes - Vent Settings MODE:: PRVC TIDAL VOLUME:: 400 RESP RATE:: 20 FIO2:: 30 PEEP:: 5 - Extremities/Vascular Does the Patient have a Central Venous Catheter?: Yes Insertion Site: Internal Jugular Vein Does the Patient need a Central Venous Catheter?: Yes Does the Patient have a Anthony Catheter?: Yes Does the Patient need a Anthony Catheter?: Yes Catheter Insertion Criteria: Need for accurate measurement of output in critically ill patient - Prophylaxis GI Prophylaxis GI: Pepsid - Prophylaxis DVT Prophylaxis DVT: Heparin SQ - Nutrition Nutrition: Nutrition Category Date Time Status NPO Diet [DIET] Diets 09/02/18 Lunch Ordered Assessment/Plan - Assessment and Plan (Free Text) Assessment: Patient is a 82 y/o male 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 Patient is also s/p tracheostomy tube placement. Patient also had worsening renal failure with uremia - requiring dialysis. Overall, patient's prognosis is guarded. Plan: Neuro: - Patient is off sedation; alert, awake, and following commands - Afebrile overnight; maintain normothermia Pulm: - c/w PRVC vent settings via tracheostomy tube - c/w ventilator management: HoB > 35 degrees, DVT/GI ppx, oral care, suctioning, daily weaning trials, low-intermediate tidal volume - CXR (09/12): bibasilar opacities, consider atelectasis - Patient is s/p tracheostomy tube (09/07) - s/p elective brochoscopy (09/02) - c/w Prednisone, xopenex, pulmicort - Pulmonology is following, recs appreciated - Maintain SaO2 > 90% - Hx recurrent L-lung atelectasis and mucus plugging s/p bronchoscopy x3 - Hx of COPD and smoking Cardio: - Patient is currently off pressors as blood pressure is stabilized - remains on stress dose steroids - c/w verapamil - Cario is following, recs appreciated - Maintain MAP > 65 - Hx of Afib - rate controlled - Hx of endovascular repair of AAA - Hx of HTN GI: - CT Abd/Pelvis (09/09): consistent with enteritis and non-obstructing nephrolithiasis. No perforation or pneumatosis intestinalis. - Patient is on enteric feeds via NG tube - Ostomy bag in tact - C. 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 with viscus rupture and ex-lap and peritonitis Renal: - Hypotensive episodes after HD; patient is not tolerating. Follow up nephro recommendations - BUN/Cr is 79/1.3 - Ins/outs; net 2.9 L positive - s/p shiley catheter for HD (09/09) due to uremia; BUN/Cr > 120/1.9 - c/w D5w IVF to avoid hypernatremia and hypercholoremia Heme: - Hgb 8.8 - stable - No signs of active bleeding at this time - Continue to monitor ID: - Afebrile, leukocytosis trending downwards - on meropenem (Day #11) and daptomycin (Day #7). Follow up ID recommendations. - septic w/u has been negative thus far - VRE+ Endo: - Maintain euglycemia - ISS - low Prophylaxis: - DVT ppx: SCD, Hep SC - GI ppx: pepcid Palliative care is on board. Dispo: Continue to monitor patient in the ICU. Overall prognosis is guarded. Case was discussed and reviewed with Attending Physician, Dr. Keys <Yeni Keys - Last Filed: 09/12/18 18:14> CCU Objective - Vital Signs / Intake & Output Vital Signs (Last 4 hours): Vital Signs Pulse BP 09/12/18 17:44 95 H 191/78 H Intake and Output (Last 8hrs): Intake & Output 09/12/18 09/12/18 09/12/18 06:59 14:59 22:59 Intake Total 3660 Output Total 1170 600 Balance 2490 -600 Weight 68.946 kg Intake: IV 3180 0.9 ns 1200 Clinimix 996 Left Upper arm 900 Propofol 84 Tube Feeding 480 Output: Drainage 600 600 Colostomy 500 500 Right Abdomen 100 100 Urine 520 Condom 220 Urethral (Anthony) 300 Other 50 Other: # Bowel Movements 0 - Medications Active Medications: Active Medications Generic Name Dose Route Start Last Admin Trade Name Freq PRN Reason Stop Dose Admin Acetylcysteine 4 ml 09/02/18 08:00 09/04/18 20:05 Acetylcysteine 20% IH Not Given [id number] Albumin Human 12.5 gm 09/12/18 17:07 Albumin Human 25% (12.5 Gm/50 Ml) IV 09/18/18 23:00 PRN PRN LOW BP Aspirin 81 mg 09/05/18 11:30 09/12/18 10:06 Aspirin Chewable PO 81 mg DAILY KD Administration Budesonide 0.5 mg 08/13/18 08:00 09/12/18 07:26 Pulmicort Respules IH 0.5 mg [id number] KD Administration Calcium Acetate 667 mg 09/10/18 10:00 09/12/18 17:44 Phoslo GT 667 mg TID KD Administration Dextrose 0 ml 09/05/18 15:56 Dextrose 50% Inj IV STAT PRN Hypoglycemia Protocol Protocol Emollient Ointment 5 gm 09/12/18 16:56 Vaseline Oint TOP PRN PRN Dry skin Famotidine 20 mg 08/21/18 10:00 09/12/18 10:07 Pepcid PO 20 mg DAILY KD Administration Heparin Sodium (Porcine) 5,000 units 09/08/18 14:00 09/12/18 13:23 Heparin SC 5,000 units Q8 KD Administration Protocol Heparin Sodium (Porcine) 5,000 units 09/10/18 11:57 Heparin IV POSTDI PRN CATH PROPH Hydralazine HCl 10 mg 09/12/18 09:22 Apresoline PO QID PRN for sbp>170 Hydrocortisone Sodium Succinate 50 mg 09/09/18 08:45 09/12/18 10:07 Solu-Cortef IVP 50 mg Q12H KD Administration Hydromorphone HCl 0.5 mg 09/10/18 09:50 09/12/18 05:55 Dilaudid IVP 0.5 mg Q4H PRN Administration Pain, moderate (4-7) Propofol 1,000 mg in 100 mls @ 1.757 mls/hr 09/02/18 09:00 09/08/18 09:00 Diprivan IV 0 mcg/kg/min .Q24H PRN 0 mls/hr TITRATE PER MD ORDER Titration Protocol 5 MCG/KG/MIN Dextrose 1,000 mls @ 0 mls/hr 09/05/18 15:56 09/08/18 10:00 Dextrose 5% In Water 1000 Ml IV 100 mls/hr .Q0M PRN Administration Hypoglycemia Protocol Protocol Per Protocol Vasopressin 20 units/ Dextrose 101 mls @ 9.09 mls/hr 09/08/18 18:45 09/09/18 05:31 IV 9.09 mls/hr .Q11H7M KD Administration Protocol 0.03 U/MIN Phenylephrine HCl 40 mg/ 254 mls @ 38.1 mls/hr 09/10/18 10:52 09/11/18 21:56 Dextrose IV 0 mcg/min .Q6H40M PRN 0 mls/hr TITRATE PER MD ORDER Titration Protocol 100 MCG/MIN Dextrose 1,000 mls @ 75 mls/hr 09/10/18 10:55 09/12/18 05:56 Dextrose 5% In Water 1000 Ml IV 75 mls/hr .[id number] KD Administration Insulin Human Regular 0 units 09/03/18 12:00 09/12/18 13:22 Humulin R Low SC Not Given Q6 KD Protocol Levalbuterol HCl 0.63 mg 08/18/18 08:00 09/12/18 13:27 Xopenex IH 0.63 mg [id number] KD Administration Verapamil HCl 40 mg 09/08/18 18:15 09/12/18 17:44 Calan Tab PO 40 mg Q8H KD Administration Verapamil HCl 2.5 mg 09/11/18 09:42 Verapamil Inj IVP Q6H PRN for heart rate >130 - Patient Studies Lab Studies: Microbiology Studies 09/07/18 18:48 Gram Stain - Final Body Fluid - Abdominal Cavity Body Fluid Culture - Final No growth. 09/07/18 20:40 Gram Stain - Final Other: Please Indicate Wound Culture - Final No growth. Lab Studies 09/12/18 09/12/18 09/12/18 Range/Units 12:48 07:09 06:20 WBC (4.5-11.0) 10^3/uL RBC (3.5-6.1) 10^6/uL Hgb (14.0-18.0) g/dL Hct (42.0-52.0) % MCV (80.0-105.0) fl MCH (25.0-35.0) pg MCHC (31.0-37.0) g/dl RDW (11.5-14.5) % Plt Count (120.0-450.0) 10^3/uL MPV (7.0-11.0) fl pCO2 (35-45) mm/Hg pO2 (80-100) mm/Hg HCO3 (21-28) mmol/L ABG pH (7.35-7.45) ABG Total CO2 (22-28) mmol.L ABG O2 Saturation (95-98) % ABG O2 Content (15-23) ML/dl ABG Base Excess (-2.0-3.0) mmol/L ABG Hemoglobin (11.7-17.4) g/dL ABG Carboxyhemoglobin (0.5-1.5) % POC ABG HHb (Measured) (0-5) % ABG Methemoglobin (0.0-3.0) % ABG O2 Capacity (16-24) mL/dl Hgb O2 Saturation (95.0-98.0) % FiO2 % Sodium 131 L (132-148) mmol/L Potassium 4.2 (3.6-5.0) mmol/L Chloride 102 (98-107) mmol/L Carbon Dioxide 22 (21-33) mmol/L Anion Gap 11 (10-20) BUN 79 H (7-21) mg/dL Creatinine 1.3 (0.8-1.5) mg/dl Est GFR ( Amer) > 60 Est GFR (Non-Af Amer) 53 POC Glucose (mg/dL) 151 H 126 H (65-110) mg/dL Random Glucose 129 H (70-110) mg/dL Calcium 7.1 L (8.4-10.5) mg/dL Phosphorus 5.1 H (2.5-4.5) mg/dL Magnesium 2.0 (1.7-2.2) mg/dL Total Bilirubin 5.2 H (0.2-1.3) mg/dL AST 77 H (17-59) U/L ALT 81 H (7-56) U/L Alkaline Phosphatase 71 (38-126) U/L Total Protein 4.1 L (5.8-8.3) g/dL Albumin 2.2 L (3.0-4.8) g/dL Globulin 2.0 gm/dL Albumin/Globulin Ratio 1.1 (1.1-1.8) 09/12/18 09/12/18 09/12/18 Range/Units 06:20 05:00 00:11 WBC 12.7 H D (4.5-11.0) 10^3/uL RBC 2.89 L (3.5-6.1) 10^6/uL Hgb 8.8 L (14.0-18.0) g/dL Hct 26.4 L (42.0-52.0) % MCV 91.3 D (80.0-105.0) fl MCH 30.4 (25.0-35.0) pg MCHC 33.3 (31.0-37.0) g/dl RDW 19.5 H (11.5-14.5) % Plt Count 74 L (120.0-450.0) 10^3/uL MPV 11.8 H (7.0-11.0) fl pCO2 24 L (35-45) mm/Hg pO2 116.0 H (80-100) mm/Hg HCO3 19.6 L (21-28) mmol/L ABG pH 7.52 H (7.35-7.45) ABG Total CO2 20.3 L (22-28) mmol.L ABG O2 Saturation 100.3 H (95-98) % ABG O2 Content 12.4 L (15-23) ML/dl ABG Base Excess -2.4 L (-2.0-3.0) mmol/L ABG Hemoglobin 8.9 L (11.7-17.4) g/dL ABG Carboxyhemoglobin 2.4 H (0.5-1.5) % POC ABG HHb (Measured) -0.3 L (0-5) % ABG Methemoglobin 0.9 (0.0-3.0) % ABG O2 Capacity 12.4 L (16-24) mL/dl Hgb O2 Saturation 97.0 (95.0-98.0) % FiO2 30.0 % Sodium (132-148) mmol/L Potassium (3.6-5.0) mmol/L Chloride (98-107) mmol/L Carbon Dioxide (21-33) mmol/L Anion Gap (10-20) BUN (7-21) mg/dL Creatinine (0.8-1.5) mg/dl Est GFR ( Amer) Est GFR (Non-Af Amer) POC Glucose (mg/dL) 120 H (65-110) mg/dL Random Glucose (70-110) mg/dL Calcium (8.4-10.5) mg/dL Phosphorus (2.5-4.5) mg/dL Magnesium (1.7-2.2) mg/dL Total Bilirubin (0.2-1.3) mg/dL AST (17-59) U/L ALT (7-56) U/L Alkaline Phosphatase (38-126) U/L Total Protein (5.8-8.3) g/dL Albumin (3.0-4.8) g/dL Globulin gm/dL Albumin/Globulin Ratio (1.1-1.8) Laboratory Results - last 24 hr 09/12/18 09/12/18 09/12/18 00:11 05:00 06:20 WBC 12.7 H D RBC 2.89 L Hgb 8.8 L Hct 26.4 L MCV 91.3 D MCH 30.4 MCHC 33.3 RDW 19.5 H Plt Count 74 L MPV 11.8 H pCO2 24 L pO2 116.0 H HCO3 19.6 L ABG pH 7.52 H ABG Total CO2 20.3 L ABG O2 Saturation 100.3 H ABG O2 Content 12.4 L ABG Base Excess -2.4 L ABG Hemoglobin 8.9 L ABG Carboxyhemoglobin 2.4 H POC ABG HHb (Measured) -0.3 L ABG Methemoglobin 0.9 ABG O2 Capacity 12.4 L Hgb O2 Saturation 97.0 FiO2 30.0 Sodium Potassium Chloride Carbon Dioxide Anion Gap BUN Creatinine Est GFR ( Amer) Est GFR (Non-Af Amer) POC Glucose (mg/dL) 120 H Random Glucose Calcium Phosphorus Magnesium Total Bilirubin AST ALT Alkaline Phosphatase Total Protein Albumin Globulin Albumin/Globulin Ratio 09/12/18 09/12/18 09/12/18 06:20 07:09 12:48 WBC RBC Hgb Hct MCV MCH MCHC RDW Plt Count MPV pCO2 pO2 HCO3 ABG pH ABG Total CO2 ABG O2 Saturation ABG O2 Content ABG Base Excess ABG Hemoglobin ABG Carboxyhemoglobin POC ABG HHb (Measured) ABG Methemoglobin ABG O2 Capacity Hgb O2 Saturation FiO2 Sodium 131 L Potassium 4.2 Chloride 102 Carbon Dioxide 22 Anion Gap 11 BUN 79 H Creatinine 1.3 Est GFR ( Amer) > 60 Est GFR (Non-Af Amer) 53 POC Glucose (mg/dL) 126 H 151 H Random Glucose 129 H Calcium 7.1 L Phosphorus 5.1 H Magnesium 2.0 Total Bilirubin 5.2 H AST 77 H ALT 81 H Alkaline Phosphatase 71 Total Protein 4.1 L Albumin 2.2 L Globulin 2.0 Albumin/Globulin Ratio 1.1 Critical Care Progress Note - Nutrition Nutrition: Nutrition Category Date Time Status NPO Diet [DIET] Diets 09/02/18 Lunch Ordered Addendum Addendum: 09/12/18 18:13 MICU ATTENDING ADDENDUM: Patient seen and examined. Case discussed in round with housestaff. Agree with note above with the following additions/exception: 82 M with hx of rectal cancer s/p total colectomy, zenker's diverticulum, thrombocytopenia, stent placement for AAA, seizure disorder, hypertension, hyperlipidemia, atrial fibrillation on eliquis s/p polyp removal with parastomal hernia repair, with multi organ failure, and recurrent lung collapse resolved with bronch x 3 now s/p trach(09/07) and started on HD. No change in over all status. Continues to struggle with his BP during HD. Digoxin started by cardio. Remains vent dependant. Cont PRVC for now. Sedation vacation daily Etiology of shock unclear. I do not think this is septic shock given all of his cultures from 09/06 are NEGATIVE. ID on board. I recommend stopping all abx at this time but will defer final decision to ID and surgical team. I suspect he is HYPERvolemic since he is >10L positive over the last week. HD has been challenging and further aggressive care may not benefit him much. Recommended pal care consult. If decision by surgical team and nephro is to cont with trying dialysis, I suggest using CVVH which is more tolerable for his BP. Rest of care above Yeni Keys MD Pulmonary Critical Care and Sleep Medicine Critical Care Time: 33mins
--- NOTE | 2018-09-12 12:49 | PN ---
DATE: 09/12/2018 SUBJECTIVE: This 82-year-old male remains in ICU bed #1. He remains on a tracheostomy support for his respiratory status and today he is afebrile. OBJECTIVE: VITAL SIGNS: His cardiac rhythm remains AFib with a controlled rate in the 80s to low 100 and the patient's blood pressure is better this morning with a recorded blood pressure of 126/95 and a pulse ox of 100% on current FIO2. HEENT: Head is normocephalic, atraumatic. NECK: Supple. HEART: Irregular S1, S2. LUNGS: With rhonchi. ABDOMEN: Soft. EXTREMITIES: No edema. SKIN: Without rash. NEUROLOGIC: Deconditioned. VASCULAR: Legs warm to touch. LABORATORY DATA: White count 12,700, previously 24,300; hemoglobin 8.8; hematocrit 26.4; platelets 74,000. Sodium 131, K 4.2, chloride 102, bicarb 22, BUN 79, creatinine 1.3, random blood sugar 129. Phosphorous 5.1, AST 77, ALT 81, alk phos 71. Latest wound culture shows no growth. Stool for C. diff toxin and antigen is negative. IMPRESSION: An 82-year-old male with respiratory insufficiency, [id number] renal insufficiency in the setting of sepsis and comorbidities of atrial fibrillation, insulin-dependent diabetes mellitus, anemia of chronic disease, thrombocytopenia, hypotension, hyperphosphatemia, exacerbation of chronic obstructive pulmonary disease and rapid atrial fibrillation at present. The patient will continue on Ecotrin, Kaolin, daptomycin, Diprivan, subq heparin, insulin coverage, Pepcid, PhosLo, Pulmicort, stress dose Solu-Cortef, vasopressin, and Xopenex. He remains a full code. He will be scheduled for comprehensive metabolic panel, digoxin level, magnesium and phosphorus level and CBC in the a.m. He has a chest x-ray ordered for a.m. He continues on respiratory support. He remains on aspiration precautions, isolation precautions and is receiving tube feedings through his Dophoff of Nepro at 40 mL/hour. Based on his clinical progress, his additional diagnostic workup and intervention will be entertained. I will decide if the patient needs any further hemodialysis in the a.m. and decision regarding when the patient will be acceptable for transfer to [facility]. Sara Ramirez MD [facility] # [id number] MTDJevon
--- NOTE | 2018-09-12 13:41 | PN ---
DATE: 09/12/2018 SUBJECTIVE: He is comfortable in bed, still drowsy, he is off sedation. He is not alert, he is not awake. Had tracheostomy tube and G-tube, Mcintosh catheter and a stoma. He did not tolerate dialysis. He had hypotensive episodes. Currently off pressors. REVIEW OF SYSTEMS: Could not be obtained. PHYSICAL EXAMINATION: GENERAL: Right IJ in place. HEENT: Normal. Pupils reacting to light. Pallor positive. NECK: No lymphadenopathy. CHEST: Tracheostomy tube in place. Bilateral conducted sounds. CARDIOVASCULAR: Regular, S1 and S2 normal. No murmur. No gallop. ABDOMEN: Soft, nontender. Colostomy bag in place. EXTREMITIES: 1+ edema, positive for pulses. SKIN: Warm and dry. MEDICATIONS: Reviewed. LABORATORY DATA: White count 12.7, hemoglobin 8.8, hematocrit 26.4, platelets 74,000. Sodium 131, potassium 4.2, calcium 7.1. ASSESSMENT: 1. Anemia. 2. Idiopathic thrombocytopenic purpura, thrombocytopenia. 3. Status post hemicolectomy. 4. Renal insufficiency, status post hemodialysis. 5. Status post tracheostomy due to respiratory failure. PLAN: He is currently off sedation, off pressors. Tracheostomy tube in place. He is still not alert, not oriented, drowsy and arousable. Blood culture, leukocytosis. Hemoglobin and hematocrit declined since yesterday, it was 9.4 and 8.8, platelet count 74 ITP. No blood products transfusion indicated today. We will continue to monitor blood count closely. 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 Surgical team following. Currently on IV antibiotic as per ID. Thank you Dr. Du for allowing us to participate in Mr. Hale's care. Lesia Ledezma MD
--- NOTE | 2018-09-12 14:09 | PN ---
DATE: 09/12/2018 REASON FOR CONSULTATION AND FOLLOWUP: Atrial fibrillation status post respiratory distress, status post tracheostomy, abdominal surgery, now multiorgan dysfunction, on vasopressors. SUBJECTIVE: The patient is very weak, lethargic, responds to verbal stimuli, barely opens eyes. PHYSICAL EXAMINATION: GENERAL: Not in distress. VITAL SIGNS: Temperature afebrile, heart rate 103, blood pressure 120/80. HEENT: PERRLA. Extraocular muscles intact. NECK: Supple. No carotid bruit or thyromegaly. CHEST: Clear to auscultation. HEART: S1 and S2, regular. ABDOMEN: Soft. EXTREMITIES: Clubbing, cyanosis negative. LABORATORY DATA: Blood workup as follows: WBC 12.7, hemoglobin , hematocrit 26.7, platelet count 74. Chemistries show sodium 131, potassium 4.2, chloride 102, carbon dioxide 22, anion gap of 11, BUN 17, creatinine 1.3. 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 Hospital course complicated with multiple times collapse of the left lung, multiple times bronchoscopy done. Further hospital course is complicated by requiring exploratory laparotomy and end-to-end anastomosis. Then, the patient collapsed again status post tracheostomy and requiring tracheostomy. The patient is currently on tracheostomy, on vasopressors, on partial parenteral nutrition and intravenous fluids, and being fed through the nasogastric tube. Severe protein-calorie malnutrition was present on admission. History of atrial fibrillation, did not tolerate anticoagulation, started oozing blood from the drainage, increased discharge. The patient had two runs of dialysis, now BUN and creatinine, creatinine is 1.3. RECOMMENDATIONS: Continue supportive care. Continue NG feeding. Continue gentle fluids. Continue PPN. Also continue D5. Overall, the patient's condition is critical, long-term prognosis is guarded. We will follow with you. Thank you Dr. Du for providing us the opportunity in taking care of the patient, Alexia. Continue p.r.n. verapamil. We will follow with you. We will get dig level in the morning. Gladis Greenfield MD [facility] # [id number]
--- NOTE | 2018-09-12 14:43 | PN ---
DATE: 09/12/2018 SUBJECTIVE: The patient has no complaints of any . The patient did not answer much questions. PHYSICAL EXAMINATION: VITAL SIGNS: Temperature is 97.9, pulse of 98, blood pressure 136/55 and respiration is 30. GENERAL: The patient is lying in bed, flat, comfortable. HEENT: No oral lesion. Anicteric sclerae. Moist mucosa. NECK: No JVD, adenopathy, or thyromegaly. CARDIOVASCULAR: S1 and S2, regular. No murmurs, rubs, or gallops. LUNGS: Clear to auscultation bilaterally. No wheeze, rales, or rhonchi. ABDOMEN: Bowel sounds are positive, soft, nontender and nondistended. EXTREMITIES: No cyanosis, clubbing or edema. LABORATORY DATA: White count of 12.7 and hemoglobin 8.8. Creatinine is 1.3 and sodium is 131. ASSESSMENT: 1. Sepsis. 2. Atrial fibrillation. 3. Seizure disorder. 4. Status post right hemicolectomy. 5. Status post tracheostomy. PLAN: The patient is currently in the ICU. He is going to continue with aspirin daily. He is on verapamil for his blood pressure. The patient is on daptomycin for antibiotics. The patient is on IV fluids, this will be continued. He is on Dilaudid for pain. The patient is on heparin for DVT prophylaxis. He is on PhosLo. He is being followed by Dr. Ramirez, for his renal injury. Arnie Pool MD
[2018-09-12] MEDS ORDERED: Digoxin 500 mcg/2ml (0.5 mg/2ml) Inj IVP ONE (15:45)
[2018-09-12 15:55] VITALS: PULSE 91
[2018-09-12] MEDS ORDERED: Albumin Human 25% (12.5 gm/50 ml) IV PRN ×2 (16:59→17:07)
--- NOTE | 2018-09-12 17:12 | PN ---
DATE: 09/11/2018 SUBJECTIVE: This 82-year-old male remains hospitalized in ICU bed one. He is successfully being ventilated via his tracheostomy and was dialyzing today on an F160, 140 sodium, 4 K bicarb bath. Blood flow rates were 250 to 300 mL per minute. Pre-dialysis blood work showed a BUN of 34 with creatinine of 0.6, sodium 138, and a K of 4.3. The patient was dialyzed on a 4 K bath; however, he became hypotensive and tachycardic after approximately one and half hours and dialysis was terminated. At this point, the patient is making urine, azotemia is dramatically improved and I have discussed this case in detail with Dr. Yeni Keys, medical laborer cook house. LABORATORY DATA: His laboratories now show sodium 138, K 4.3, chloride 105, bicarb 29, BUN 34, creatinine 0.6, random blood sugar 127, phosphorous 2.3. Bilirubin 5.2, AST 84, ALT 91, and alk phos 88. White count 24,300, hemoglobin 9.4, hematocrit 28.5, platelets 92,000. PLAN: My plans are to hold hemodialysis at this point in time. We will continue to monitor his clinical progress and the team will be evaluating the patient for transfer to LTAC and decision regarding the removal of his femoral dialysis catheter will be made on Thursday morning based on his lab work. The patient will continue on IV antibiotics including IV daptomycin and he is tolerating IV dig as ordered by Dr. Greenfield from Cardiology for AFib. Overall, prognosis remains poor, but the patient is stable at present as discussed with Dr. Keys. Sara Ramirez MD [facility]TD[facility]
--- NOTE | 2018-09-12 17:57 | PN ---
DATE: 09/12/2018 SUBJECTIVE: The patient is in bed in no acute distress, nontoxic. PHYSICAL EXAMINATION: VITAL SIGNS: Temperature is 98, blood pressure is 119/60, respiratory rate of 18. HEENT: Unremarkable. NECK: Supple. LUNGS: Decreased breath sounds. HEART: Normal S1 and S2. ABDOMEN: Soft, nontender. LABORATORY EXAMINATION: White count is down to 12,700, hemoglobin of 8, creatinine is at 1.3, which is an increase from the 0.6. The patient's cultures are reviewed. The patient is currently on daptomycin. Microbiology reveals yeast in the sputum. Blood cultures are negative. C. diff antigen and toxin are negative. ASSESSMENT AND PLAN: This is an 82-year-old male who was seen early this morning in the ICU 128, Bed 1, with a history of abdominal surgery, hemicolectomy, intensive care unit ventilator-dependent respiratory failure with severe sepsis with perforated ileum and exploratory lap and resection of the terminal ileum, primary anastomosis, who is requiring emergent hemodialysis, severe sepsis with vancomycin-resistant Enterococcus in stool, healthcare-associated pneumonia, atrial fibrillation, coronary artery disease. He has just completed 10 days of meropenem, we will discontinue the meropenem. Today is day #7 of daptomycin, we will discontinue the daptomycin, observe the patient off of antibiotics. The patient is trached on a vent, has an NG tube, abdominal surgery, is cachectic and overall in poor condition. His BMI is written as 23, probably a lot less. He appears chronically ill. We will discontinue the antibiotics and follow the patient off of antibiotics. Today is day #7 of daptomycin, we will discontinue that. He received 10 days of meropenem, we will discontinue that. The patient is at risk for developing nosocomial infections. The patient has atrial fibrillation, diabetes, anemia, idiopathic thrombocytopenic purpura and status post abdominal surgery. Jason Garvin MD
--- NOTE | 2018-09-12 20:28 | CP.PCM.PCO ---
Physician Communication Note - Physician Communication Note Physician Communication Note: Hypotension limits dialysis-family conference tomorrow
[2018-09-13] MEDS: Levalbuterol 0.63 MG/3 ML Inhal Soln UD IH SCH ×4 (01:51→19:30)
[2018-09-13] MEDS: HYDROmorphone 0.5 mg/0.5 ml ISec IVP PRN (03:40)
[2018-09-13] MEDS: Insulin Reg-LOW-Coverage SC SCH ×4 (05:22→18:22)
[2018-09-13 06:03] LABS: ARTERIAL BLOOD GAS HCO3 20.2 mmol/L (21-28); ARTERIAL BLOOD GAS HEMOGLOBIN 11.1 g/dL (11.7-17.4); ARTERIAL BLOOD GAS O2 CAPACITY 15.3 mL/dl (16-24); ARTERIAL BLOOD GAS O2 CONTENT 15.2 ML/dl (15-23); ARTERIAL BLOOD GAS O2 SAT 99.4 % (95-98); ARTERIAL BLOOD GAS PCO2 43 mm/Hg (35-45); ARTERIAL BLOOD GAS PH 7.28 (7.35-7.45); ARTERIAL BLOOD GAS TCO2 21.5 mmol.L (22-28)
[2018-09-13 07:14] LABS: HEMOGLOBIN 8.5 g/dL (14.0-18.0); MEAN CELL VOLUME 92.1 fl (80.0-105.0); MEAN CORPUSCULAR HEMOGLOBIN 30.6 pg (25.0-35.0); MEAN CORPUSCULAR HGB CONC 33.2 g/dl (31.0-37.0); MEAN PLATELET VOLUME 11.5 fl (7.0-11.0); RBC 2.78 10^6/uL (3.5-6.1); RED CELL DISTRIBUTION WIDTH 20.1 % (11.5-14.5); WHITE BLOOD COUNT 14.8 10^3/uL (4.5-11.0)
--- NOTE | 2018-09-13 07:21 | CP.PCM.PN ---
Subjective - Date & Time of Evaluation Date of Evaluation: 09/13/18 Time of Evaluation: 07:19 - Subjective Subjective: Surgery Progress note- Dr. Du Patient seen and examined at bedside. On Trach PRVC overnight. Tolerated PS throughout the day yesterday. Patient became hypotensive during dialysis and was stopped. Dialysis was re-attempted and was able to pull off 1 L. Currently HR rate controlled. NGT feeds in place. Objective - Vital Signs/Intake and Output Vital Signs (last 24 hours): Temp Pulse Resp BP Pulse Ox 97.7 F 92 H 20 109/44 L 100 09/12/18 20:00 09/12/18 18:46 09/12/18 14:01 09/12/18 18:46 09/12/18 18:46 - Medications Medications: Current Medications Acetylcysteine (Acetylcysteine 20%) 4 ml IH [id number] [facility] Last Admin: 09/04/18 20:05 Dose: Not Given Albumin Human (Albumin Human 25% (12.5 Gm/50 Ml)) 12.5 gm IV PRN PRN PRN Reason: LOW BP Stop: 09/18/18 23:00 Aspirin (Aspirin Chewable) 81 mg PO DAILY [facility] Last Admin: 09/12/18 10:06 Dose: 81 mg Budesonide (Pulmicort Respules) 0.5 mg IH [id number] [facility] Last Admin: 09/12/18 19:59 Dose: 0.5 mg Calcium Acetate (Phoslo) 667 mg GT TID [facility] Last Admin: 09/12/18 17:44 Dose: 667 mg Dextrose (Dextrose 50% Inj) 0 ml IV STAT PRN; Protocol PRN Reason: Hypoglycemia Protocol Emollient Ointment (Vaseline Oint) 5 gm TOP PRN PRN PRN Reason: Dry skin Famotidine (Pepcid) 20 mg PO DAILY [facility] Last Admin: 09/12/18 10:07 Dose: 20 mg Heparin Sodium (Porcine) (Heparin) 5,000 units SC Q8 [facility]; Protocol Last Admin: 09/13/18 05:22 Dose: 5,000 units Heparin Sodium (Porcine) (Heparin) 5,000 units IV POSTDI PRN PRN Reason: CATH PROPH Hydralazine HCl (Apresoline) 10 mg PO QID PRN PRN Reason: for sbp>170 Hydrocortisone Sodium Succinate (Solu-Cortef) 50 mg IVP Q12H [facility] Last Admin: 09/12/18 21:44 Dose: 50 mg Hydromorphone HCl (Dilaudid) 0.5 mg IVP Q4H PRN PRN Reason: Pain, moderate (4-7) Last Admin: 09/13/18 03:40 Dose: 0.5 mg Propofol (Diprivan) 1,000 mg in 100 mls @ 1.757 mls/hr IV .Q24H PRN; Protocol PRN Reason: TITRATE PER MD ORDER Last Titration: 09/08/18 09:00 Dose: 0 mcg/kg/min, 0 mls/hr Dextrose (Dextrose 5% In Water 1000 Ml) 1,000 mls @ 0 mls/hr IV .Q0M PRN; Protocol PRN Reason: Hypoglycemia Protocol Last Admin: 09/08/18 10:00 Dose: 100 mls/hr Vasopressin 20 units/ Dextrose 101 mls @ 9.09 mls/hr IV .Q11H7M [facility]; Protocol Last Admin: 09/09/18 05:31 Dose: 9.09 mls/hr Phenylephrine HCl 40 mg/ (Dextrose) 254 mls @ 38.1 mls/hr IV .Q6H40M PRN; Protocol PRN Reason: TITRATE PER MD ORDER Last Titration: 09/11/18 21:56 Dose: 0 mcg/min, 0 mls/hr Dextrose (Dextrose 5% In Water 1000 Ml) 1,000 mls @ 75 mls/hr IV .[id number] [facility] Last Admin: 09/12/18 21:46 Dose: 75 mls/hr Insulin Human Regular (Humulin R Low) 0 units SC Q6 [facility]; Protocol Last Admin: 09/13/18 05:22 Dose: Not Given Levalbuterol HCl (Xopenex) 0.63 mg IH R9BALEL [facility] Last Admin: 09/13/18 01:51 Dose: 0.63 mg Verapamil HCl (Calan Tab) 40 mg PO Q8H [facility] Last Admin: 09/13/18 05:21 Dose: Not Given Verapamil HCl (Verapamil Inj) 2.5 mg IVP Q6H PRN PRN Reason: for heart rate >130 - Labs Labs: 09/12/18 06:20 09/12/18 06:20 PT 15.1 SECONDS (9.4-12.5) H 09/06/18 05:01 INR 1.31 09/06/18 05:01 APTT 31.7 Seconds (25.1-36.5) 09/06/18 05:01 - Constitutional Appears: Non-toxic, No Acute Distress, Chronically Ill - Head Exam Head Exam: ATRAUMATIC - Respiratory Exam Respiratory Exam: NORMAL BREATHING PATTERN. absent: Accessory Muscle Use, Respiratory Distress Additional comments: on PRVC overnight via Tracheostomy. - Cardiovascular Exam Cardiovascular Exam: Irregular Rhythm, +S1, +S2. absent: Bradycardia, Tachyca rdia - GI/Abdominal Exam GI & Abdominal Exam: Soft. absent: Distended, Firm, Guarding, Rigid, Tenderness Additional comments: NGT in place w/ tube feeds running - Exam Additional comments: Mcintosh in place w/ 200cc urine output - Extremities Exam Extremities Exam: absent: Calf Tenderness Additional comments: SCD and air boots in place - Neurological Exam Neurological Exam: Awake - Skin Skin Exam: Intact, Warm Assessment and Plan - Assessment and Plan (Free Text) Assessment: 82M s/p ex lap w/ileal perforation repair on 08/11 s/p tracheostomy for respiratory failure requiring mechanical ventilation on 09/07 resolved VRE+ peritonitis Renal failure requiring hemodialysis patient has poor prognosis Plan: pain control PRN vent weaning on Trach Will continue to discuss goals of care with family Monitor I/O Continue antibiotic therapy daily labs Continue current medical therapy per the ICU further recs per Dr. Du surgical attending PGY2
[2018-09-13 07:27] LABS: ALBUMIN 1.9 g/dL (3.0-4.8)
[2018-09-13] MEDS: Budesonide 0.5 mg/2 ml Inhal Susp UD IH SCH ×2 (07:48→19:30)
--- NOTE | 2018-09-13 08:17 | PN ---
DATE: 09/13/2018(700am-750am) SUBJECTIVE: The patient remains on the ventilator.. He remains very lethargic. PHYSICAL EXAMINATION: VITALS: Temperature is 97.7, pulse is 91, respiratory rate 20/20, last blood pressure recorded 109/44. HEENT: Normocephalic. Positive tracheostomy. No JVD. CARDIOVASCULAR: Systolic ejection murmur at the lower left sternal border. Questionable S3 gallop. LUNGS: Decreased breath sounds at the bases (improved overall). Much less/minimal rhonchi. No wheezing. EXTREMITIES: Mild edema. No cyanosis, no clubbing. GASTROINTESTINAL: Abdomen is soft, nondistended. Abdomen is postoperative. SKIN: No acute rash. NEUROLOGIC: Exam limited at the present time. PERTINENT LABORATORY DATA: Chest x-ray was done this morning and reviewed. There is increased aeration noted to the left lower lobe/left base. There is mild pulmonary vascular congestion. Arterial blood gas was done on PRVC 20, tidal volume 400, FiO2 of 30%. Results are: pH 7.28, pCO2 of 43, pO2 of 108. IMPRESSION: 1. Recurrent left lung atelectasis. 2. Congestive heart failure. 3. Atrial fibrillation. 4. Intraabdominal perforation. 5. Status post right hemicolectomy. 6. Advanced chronic obstructive pulmonary disease. 7. Anemia, thrombocytopenia. 8. Renal failure. PLAN: The patient remains in the ICU. He remains on the ventilator. He remains very lethargic. I did discuss the case with the night nurse at length. The night nurse confirmed that the patient is not doing well overall. I did review the chest x-ray as above. There is increased aeration noted to the left lower lobe/left base. There is a mild increase in pulmonary vascular congestion. I have also reviewed the arterial blood gas. There is a mild metabolic acidosis noted. There is also a mild increase in the alveolar-arterial gradient. The patient is for possible hemodialysis later today. On physical exam, there is much less bronchospasm noted. In addition, the alveolar-arterial gradient is also much less. I will continue the current nebulizer treatments for now. The patient remains on low-dose intravenous Solu-Cortef. Inputs by Surgery and Infectious Disease are also noted. The patient remains critically ill, with overall poor prognosis. I will discuss the above with the entire ICU team in the next few moments. I will also discuss the above with Dr. Du later this morning. Rosalio Blevins MD [place]
--- NOTE | 2018-09-13 08:31 | PN ---
DATE: 09/11/2018 REASON FOR CONSULTATION AND FOLLOWUP: Atrial fibrillation, status post respiratory failure, status post tracheostomy, acute kidney injury, chronic renal insufficiency, on dialysis. SUBJECTIVE: The patient is very weak and lethargic, but responds to the verbal stimuli, opens eyes. Denies any chest pain, shortness of breath, or any palpitations. OBJECTIVE: GENERAL: Lying flat on the bed, status post tracheostomy, NG tube in the stomach . Not in apparent distress. VITAL SIGNS: Temperature afebrile, heart rate , blood pressure 141/117. HEENT: PERRLA. Extraocular muscles are intact. NECK: Supple. No carotid bruits or thyromegaly. CHEST: Clear to auscultation. HEART: S1 and S2, regular. ABDOMEN: Soft. EXTREMITIES: Clubbing and cyanosis negative. LABORATORY DATA: Blood workup as follows: WBC 24.3, hemoglobin 9.4, hematocrit 28.5, and platelet count 92. Chemistry shows sodium 140, potassium 4.5, chloride 112, carbon dioxide 23, anion gap of 12, BUN 108, and creatinine 1.5. 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 Hospital course complicated by multiple times collapse of the lung requiring bronchoscopy, further complicated by perforation of the bowel requiring exploration and resection of the bowel and end-to-end anastomosis. Hospital course complicated by failure to thrive. The patient remained on ventilation after bronchoscopy. Now, the patient is status post tracheostomy, multiorgan dysfunction, started on dialysis, severe protein-calorie malnutrition, on parenteral nutrition. The patient is on peripheral parenteral nutrition of the nasogastric tube. atrial fibrillation with rapid ventricular rate, today morning 120, yesterday the patient was started on dialysis but the rate went up, so could not be done. PLAN: We will give IV dig 0.25 now, continue p.r.n. verapamil 2.5 every 6 hours p.r.n. and also continue through the NG tube verapamil. Overall, the patient's condition is critical. Long-term prognosis is extremely guarded. Discussed with Dr. Hartman yesterday. We will follow with you. Total albumin is 2.1. We will give 2 doses of IV albumin to increase the plasma oncotic pressure and so we can give more dialysis. Thank you Dr. Du for providing the opportunity in taking care of the patient, Alexia. We will follow with you. Gladis Greenfield MD
--- NOTE | 2018-09-13 09:42 | PN ---
PULMONARY PROGRESS NOTE DATE: 09/12/2018 SUBJECTIVE: The patient remains in the Intensive Care Unit on mechanical ventilation. He is sedated, but is awake but lethargic. Case discussed at length with the respiratory therapist and nurse again today. The prognosis is guarded, but vigorous attempts are being made to reverse adverse clinical situation. PHYSICAL EXAMINATION: GENERAL: The patient remains intubated on mechanical ventilation. He appears to be comfortable and he is resting. VITAL SIGNS: Remain stable with a heart rate of 100, respiratory rate of 18 and blood pressure 120/80. HEENT: Normocephalic and atraumatic. NECK: Supple, tracheotomy, no JVD. No bruit. CARDIOVASCULAR: Regular rhythm. S1 and S2. Soft systolic ejection murmur at the lower left sternal border, unchanged. No gallop is discernible. CHEST: Global decrease in breath sounds. Minimal rhonchi this morning. No rales or wheezing. ABDOMEN: Soft. Bowel sounds normoactive without mass, guarding, rebound or organomegaly. EXTREMITIES: Reveal no clubbing, cyanosis or edema. SKIN: Shows no rash or excoriation. NEUROLOGIC: No focal findings noted. The patient is arousable. LABORATORY DATA: Chest x-ray this morning shows no significant change. Blood gas shows adequate ventilation on oxygenation. CLINICAL IMPRESSION: 1. Recurrent left lung atelectasis/pneumonitis. 2. Pulmonary vascular congestion/congestive heart failure. 3. Cardiac arrhythmia/atrial fibrillation. 4. Intra-abdominal catastrophe/status post right hemicolectomy secondary to rupture. 5. Chronic obstructive pulmonary disease, severe. 6. Mechanical ventilation with hypoxemia. 7. Anemia. 8. Thrombocytopenia. 9. Renal insufficiency. PLAN: I will continue his vigorous support. We will discuss at length with the industrial robotics mechanic. Overall prognosis remains guarded despite vigorous attempts to improve this patient's status. I will discuss with the industrial robotics mechanic and other consultants this morning. Continue to assure that there is adequate ventilation and mechanical ventilation. Followup chest x-ray pending this morning. We will follow closely with you. Did discussed at length with Dr. Blevins covering starting tomorrow. Thank you for the opportunity to care for this patient. We will follow closely with you. Tulio Ramos MD [facility] # [id number]
--- NOTE | 2018-09-13 09:55 | RAD ---
Date of service: 09/13/2018 HISTORY: f/u COMPARISON: 11/13/2017 FINDINGS: LUNGS: Central lines and tubes are unchanged. Infiltrate at left lung base obscuring the diaphragm PLEURA: No significant pleural effusion identified, no pneumothorax apparent. CARDIOVASCULAR: Aortic calcification Mild cardiomegaly no pulmonary vascular congestion. OSSEOUS STRUCTURES: No significant abnormalities. VISUALIZED UPPER ABDOMEN: Normal. OTHER FINDINGS: None. IMPRESSION: No acute change
[2018-09-13] MEDS ORDERED: Albumin Human 25% (12.5 gm/50 ml) IV ONE (10:54)
[2018-09-13] MEDS ORDERED: Albumin Human 25% (12.5 gm/50 ml) IV PRN (11:10)
--- NOTE | 2018-09-13 11:10 | CP.CCUPN ---
<Godfrey Lehman - Last Filed: 09/13/18 11:07> CCU Subjective - Physician Review Subjective (Free Text): Godfrey Lehman, PGY1 ICU Progress Note for Dr. Cochran Patient was seen and examined at bedside this morning. He is awake, alert, and briefly following commands. Tracheostomy tube, NG tube, anthony, R-IJ, ostomy bag, RUSSELL drain, and shiley catheter is in place. Patient is off pressors and sedation. BP 121/58 during interview. No fevers overnight. ROS not obtained due to patient's condition and lack of capacity. CCU Objective - Vital Signs / Intake & Output Vital Signs (Last 4 hours): Vital Signs Resp Pulse Ox 09/13/18 07:48 21 30 L Intake and Output (Last 8hrs): Intake & Output 09/12/18 09/13/18 09/13/18 22:59 06:59 14:59 Intake Total 1380 Output Total 1415 Balance -35 Intake: IV 900 Left Upper arm 900 Tube Feeding 480 Output: Drainage 1190 Colostomy 1000 Right Abdomen 190 Urine 225 Urethral (Anthony) 225 - Physical Exam Head: Positive for: Atraumatic, Normocephalic, Other (R-IJ in place. ) Pupils: Positive for: Sluggish Extroacular Muscles: Positive for: EOMI Conjunctiva: Positive for: Normal Mouth: Positive for: Moist Mucous Membranes Pharnyx: Positive for: Normal Nose (External): Positive for: Other (NG tube in place) Neck: Positive for: Other (Tracheostomy tube in place). Negative for: JVD, Lymphadenopathy, Bruit Respiratory/Chest: Positive for: Clear to Auscultation. Negative for: Respiratory Distress, Accessory Muscle Use, Wheezes, Rales, Rhonchi Cardiovascular: Positive for: Regular Rate and Rhythm, Peripheal Pulses Present Abdomen: Positive for: Normal Bowel Sounds, Other ( Colostomy bag in place, diarrhea noted. RUSSELL drain in place. ). Negative for: Tenderness, Distention, Peritoneal Signs, Rebound, Mass/Organomegaly Genitourinary Male: Positive for: Other (Anthony in place. Shiley catheter in the R-groin. ) Upper Extremity: Positive for: NORMAL PULSES. Negative for: Edema Lower Extremity: Positive for: NORMAL PULSES. Negative for: Edema, CALF TENDERNESS Neurological: Positive for: GCS=15, Speech Normal Skin: Positive for: Warm, Dry, Normal Color, Other (Grossly edematous/anasarca ) Psychiatric: Positive for: Alert. Negative for: Oriented x 3 - Medications Active Medications: Active Medications Generic Name Dose Route Start Last Admin Trade Name Freq PRN Reason Stop Dose Admin Acetylcysteine 4 ml 09/02/18 08:00 09/04/18 20:05 Acetylcysteine 20% IH Not Given [id number] Albumin Human 12.5 gm 09/12/18 17:07 Albumin Human 25% (12.5 Gm/50 Ml) IV 09/18/18 23:00 PRN PRN LOW BP Albumin Human 12.5 gm 09/13/18 12:00 Albumin Human 25% (12.5 Gm/50 Ml) IV 09/14/18 12:01 Q6H KD Aspirin 81 mg 09/05/18 11:30 09/13/18 09:32 Aspirin Chewable PO 81 mg DAILY KD Administration Budesonide 0.5 mg 08/13/18 08:00 09/13/18 07:48 Pulmicort Respules IH 0.5 mg [id number] KD Administration Calcium Acetate 667 mg 09/10/18 10:00 09/13/18 09:11 Phoslo GT 667 mg TID KD Administration Dextrose 0 ml 09/05/18 15:56 Dextrose 50% Inj IV STAT PRN Hypoglycemia Protocol Protocol Emollient Ointment 5 gm 09/12/18 16:56 Vaseline Oint TOP PRN PRN Dry skin Famotidine 20 mg 08/21/18 10:00 09/13/18 09:11 Pepcid PO 20 mg DAILY KD Administration Furosemide 20 mg 09/13/18 14:00 Lasix IV 0800,1400 KD Heparin Sodium (Porcine) 5,000 units 09/08/18 14:00 09/13/18 05:22 Heparin SC 5,000 units Q8 KD Administration Protocol Heparin Sodium (Porcine) 5,000 units 09/10/18 11:57 Heparin IV POSTDI PRN CATH PROPH Hydralazine HCl 10 mg 09/12/18 09:22 Apresoline PO QID PRN for sbp>170 Hydrocortisone Sodium Succinate 25 mg 09/13/18 10:19 Solu-Cortef IVP Q12H KD Hydromorphone HCl 0.5 mg 09/10/18 09:50 09/13/18 03:40 Dilaudid IVP 0.5 mg Q4H PRN Administration Pain, moderate (4-7) Dextrose 1,000 mls @ 0 mls/hr 09/05/18 15:56 09/08/18 10:00 Dextrose 5% In Water 1000 Ml IV 100 mls/hr .Q0M PRN Administration Hypoglycemia Protocol Protocol Per Protocol Insulin Human Regular 0 units 09/03/18 12:00 09/13/18 09:11 Humulin R Low SC 1 units Q6 KD Administration Protocol Levalbuterol HCl 0.63 mg 08/18/18 08:00 09/13/18 07:48 Xopenex IH 0.63 mg [id number] KD Administration Verapamil HCl 40 mg 09/08/18 18:15 09/13/18 05:21 Calan Tab PO Not Given Q8H KD Verapamil HCl 2.5 mg 09/11/18 09:42 Verapamil Inj IVP Q6H PRN for heart rate >130 - Patient Studies Lab Studies: Microbiology Studies 09/07/18 18:48 Gram Stain - Final Body Fluid - Abdominal Cavity Body Fluid Culture - Final No growth. 09/07/18 20:40 Gram Stain - Final Other: Please Indicate Wound Culture - Final No growth. Lab Studies 09/13/18 09/13/18 09/13/18 Range/Units 07:00 07:00 07:00 WBC 14.8 H (4.5-11.0) 10^3/uL RBC 2.78 L (3.5-6.1) 10^6/uL Hgb 8.5 L (14.0-18.0) g/dL Hct 25.6 L (42.0-52.0) % MCV 92.1 (80.0-105.0) fl MCH 30.6 (25.0-35.0) pg MCHC 33.2 (31.0-37.0) g/dl RDW 20.1 H (11.5-14.5) % Plt Count 95 L (120.0-450.0) 10^3/uL MPV 11.5 H (7.0-11.0) fl pCO2 (35-45) mm/Hg pO2 (80-100) mm/Hg HCO3 (21-28) mmol/L ABG pH (7.35-7.45) ABG Total CO2 (22-28) mmol.L ABG O2 Saturation (95-98) % ABG O2 Content (15-23) ML/dl ABG Base Excess (-2.0-3.0) mmol/L ABG Hemoglobin (11.7-17.4) g/dL ABG Carboxyhemoglobin (0.5-1.5) % POC ABG HHb (Measured) (0-5) % ABG Methemoglobin (0.0-3.0) % ABG O2 Capacity (16-24) mL/dl Hgb O2 Saturation (95.0-98.0) % FiO2 % Sodium 131 L (132-148) mmol/L Potassium 4.0 (3.6-5.0) mmol/L Chloride 101 (98-107) mmol/L Carbon Dioxide 21 (21-33) mmol/L Anion Gap 13 (10-20) BUN 86 H (7-21) mg/dL Creatinine 1.5 (0.8-1.5) mg/dl Est GFR ( Amer) 54 Est GFR (Non-Af Amer) 45 POC Glucose (mg/dL) (65-110) mg/dL Random Glucose 168 H (70-110) mg/dL Calcium 7.0 L (8.4-10.5) mg/dL Phosphorus 6.1 H (2.5-4.5) mg/dL Magnesium 2.1 (1.7-2.2) mg/dL Total Bilirubin 4.1 H (0.2-1.3) mg/dL AST 65 H (17-59) U/L ALT 87 H (7-56) U/L Alkaline Phosphatase 84 (38-126) U/L Total Protein 3.8 L (5.8-8.3) g/dL Albumin 1.9 L (3.0-4.8) g/dL Globulin 1.9 gm/dL Albumin/Globulin Ratio 1.0 L (1.1-1.8) Digoxin 2.0 (0.8-2.0) ng/mL 09/13/18 09/13/18 09/12/18 Range/Units 05:40 00:00 18:05 WBC (4.5-11.0) 10^3/uL RBC (3.5-6.1) 10^6/uL Hgb (14.0-18.0) g/dL Hct (42.0-52.0) % MCV (80.0-105.0) fl MCH (25.0-35.0) pg MCHC (31.0-37.0) g/dl RDW (11.5-14.5) % Plt Count (120.0-450.0) 10^3/uL MPV (7.0-11.0) fl pCO2 43 (35-45) mm/Hg pO2 108.0 H (80-100) mm/Hg HCO3 20.2 L (21-28) mmol/L ABG pH 7.28 L (7.35-7.45) ABG Total CO2 21.5 L (22-28) mmol.L ABG O2 Saturation 99.4 H (95-98) % ABG O2 Content 15.2 (15-23) ML/dl ABG Base Excess -6.3 L (-2.0-3.0) mmol/L ABG Hemoglobin 11.1 L (11.7-17.4) g/dL ABG Carboxyhemoglobin 2.0 H (0.5-1.5) % POC ABG HHb (Measured) 0.6 (0-5) % ABG Methemoglobin 1.2 (0.0-3.0) % ABG O2 Capacity 15.3 L (16-24) mL/dl Hgb O2 Saturation 96.1 (95.0-98.0) % FiO2 50.0 % Sodium (132-148) mmol/L Potassium (3.6-5.0) mmol/L Chloride (98-107) mmol/L Carbon Dioxide (21-33) mmol/L Anion Gap (10-20) BUN (7-21) mg/dL Creatinine (0.8-1.5) mg/dl Est GFR ( Amer) Est GFR (Non-Af Amer) POC Glucose (mg/dL) 151 H 201 H (65-110) mg/dL Random Glucose (70-110) mg/dL Calcium (8.4-10.5) mg/dL Phosphorus (2.5-4.5) mg/dL Magnesium (1.7-2.2) mg/dL Total Bilirubin (0.2-1.3) mg/dL AST (17-59) U/L ALT (7-56) U/L Alkaline Phosphatase (38-126) U/L Total Protein (5.8-8.3) g/dL Albumin (3.0-4.8) g/dL Globulin gm/dL Albumin/Globulin Ratio (1.1-1.8) Digoxin (0.8-2.0) ng/mL 09/12/18 Range/Units 12:48 WBC (4.5-11.0) 10^3/uL RBC (3.5-6.1) 10^6/uL Hgb (14.0-18.0) g/dL Hct (42.0-52.0) % MCV (80.0-105.0) fl MCH (25.0-35.0) pg MCHC (31.0-37.0) g/dl RDW (11.5-14.5) % Plt Count (120.0-450.0) 10^3/uL MPV (7.0-11.0) fl pCO2 (35-45) mm/Hg pO2 (80-100) mm/Hg HCO3 (21-28) mmol/L ABG pH (7.35-7.45) ABG Total CO2 (22-28) mmol.L ABG O2 Saturation (95-98) % ABG O2 Content (15-23) ML/dl ABG Base Excess (-2.0-3.0) mmol/L ABG Hemoglobin (11.7-17.4) g/dL ABG Carboxyhemoglobin (0.5-1.5) % POC ABG HHb (Measured) (0-5) % ABG Methemoglobin (0.0-3.0) % ABG O2 Capacity (16-24) mL/dl Hgb O2 Saturation (95.0-98.0) % FiO2 % Sodium (132-148) mmol/L Potassium (3.6-5.0) mmol/L Chloride (98-107) mmol/L Carbon Dioxide (21-33) mmol/L Anion Gap (10-20) BUN (7-21) mg/dL Creatinine (0.8-1.5) mg/dl Est GFR ( Amer) Est GFR (Non-Af Amer) POC Glucose (mg/dL) 151 H (65-110) mg/dL Random Glucose (70-110) mg/dL Calcium (8.4-10.5) mg/dL Phosphorus (2.5-4.5) mg/dL Magnesium (1.7-2.2) mg/dL Total Bilirubin (0.2-1.3) mg/dL AST (17-59) U/L ALT (7-56) U/L Alkaline Phosphatase (38-126) U/L Total Protein (5.8-8.3) g/dL Albumin (3.0-4.8) g/dL Globulin gm/dL Albumin/Globulin Ratio (1.1-1.8) Digoxin (0.8-2.0) ng/mL Laboratory Results - last 24 hr 09/12/18 09/12/18 09/13/18 12:48 18:05 00:00 WBC RBC Hgb Hct MCV MCH MCHC RDW Plt Count MPV pCO2 pO2 HCO3 ABG pH ABG Total CO2 ABG O2 Saturation ABG O2 Content ABG Base Excess ABG Hemoglobin ABG Carboxyhemoglobin POC ABG HHb (Measured) ABG Methemoglobin ABG O2 Capacity Hgb O2 Saturation FiO2 Sodium Potassium Chloride Carbon Dioxide Anion Gap BUN Creatinine Est GFR ( Amer) Est GFR (Non-Af Amer) POC Glucose (mg/dL) 151 H 201 H 151 H Random Glucose Calcium Phosphorus Magnesium Total Bilirubin AST ALT Alkaline Phosphatase Total Protein Albumin Globulin Albumin/Globulin Ratio Digoxin 09/13/18 09/13/18 09/13/18 05:40 07:00 07:00 WBC 14.8 H RBC 2.78 L Hgb 8.5 L Hct 25.6 L MCV 92.1 MCH 30.6 MCHC 33.2 RDW 20.1 H Plt Count 95 L MPV 11.5 H pCO2 43 pO2 108.0 H HCO3 20.2 L ABG pH 7.28 L ABG Total CO2 21.5 L ABG O2 Saturation 99.4 H ABG O2 Content 15.2 ABG Base Excess -6.3 L ABG Hemoglobin 11.1 L ABG Carboxyhemoglobin 2.0 H POC ABG HHb (Measured) 0.6 ABG Methemoglobin 1.2 ABG O2 Capacity 15.3 L Hgb O2 Saturation 96.1 FiO2 50.0 Sodium 131 L Potassium 4.0 Chloride 101 Carbon Dioxide 21 Anion Gap 13 BUN 86 H Creatinine 1.5 Est GFR ( Amer) 54 Est GFR (Non-Af Amer) 45 POC Glucose (mg/dL) Random Glucose 168 H Calcium 7.0 L Phosphorus 6.1 H Magnesium 2.1 Total Bilirubin 4.1 H AST 65 H ALT 87 H Alkaline Phosphatase 84 Total Protein 3.8 L Albumin 1.9 L Globulin 1.9 Albumin/Globulin Ratio 1.0 L Digoxin 09/13/18 07:00 WBC RBC Hgb Hct MCV MCH MCHC RDW Plt Count MPV pCO2 pO2 HCO3 ABG pH ABG Total CO2 ABG O2 Saturation ABG O2 Content ABG Base Excess ABG Hemoglobin ABG Carboxyhemoglobin POC ABG HHb (Measured) ABG Methemoglobin ABG O2 Capacity Hgb O2 Saturation FiO2 Sodium Potassium Chloride Carbon Dioxide Anion Gap BUN Creatinine Est GFR ( Amer) Est GFR (Non-Af Amer) POC Glucose (mg/dL) Random Glucose Calcium Phosphorus Magnesium Total Bilirubin AST ALT Alkaline Phosphatase Total Protein Albumin Globulin Albumin/Globulin Ratio Digoxin 2.0 Fingerstick Blood Sugar Results: 168 Review of Systems - Review of Systems Systems not reviewed;Unavailable: Other (Poor capacity) Critical Care Progress Note - Ventilator Checklist Head of Bed 30 Degrees: Yes Daily Sedation Vacation: Yes Daily Assessment of Readiness to Wean: Yes Daily Spontaneous Breathing Trial: Yes PUD Prophalyxis: Yes DVT Prophylaxis: Yes Oral Care with Chlorhexidine Gluconate {CHG}: Yes - Vent Settings MODE:: PRVC TIDAL VOLUME:: 400 RESP RATE:: 20 FIO2:: 30 PEEP:: 5 - Extremities/Vascular Does the Patient have a Central Venous Catheter?: Yes Insertion Site: Internal Jugular Vein Does the Patient need a Central Venous Catheter?: Yes Does the Patient have a Anthony Catheter?: Yes Does the Patient need a Anthony Catheter?: Yes Catheter Insertion Criteria: Need for accurate measurement of output in critically ill patient - Prophylaxis GI Prophylaxis GI: Pepsid - Prophylaxis DVT Prophylaxis DVT: Heparin SQ - Nutrition Nutrition: Nutrition Category Date Time Status NPO Diet [DIET] Diets 09/02/18 Lunch Ordered Assessment/Plan - Assessment and Plan (Free Text) Assessment: Patient is a 82 y/o male 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 Patient is also s/p tracheostomy tube placement. Patient also had worsening renal failure with uremia - requiring dialysis. Overall, patient's prognosis is guarded. Plan: Neuro: - Patient is off sedation; alert, awake, and following commands - Afebrile overnight; maintain normothermia Pulm: - Taper steroids: solucortef 25mg q12 - will stop daily blood gas as patient has trach in place - CXR (09/13): unchanged from previous imaging. Bibasilar opacities. - c/w PRVC vent settings via tracheostomy tube - c/w ventilator management: HoB > 35 degrees, DVT/GI ppx, oral care, suctioning, daily weaning trials, low-intermediate tidal volume - Patient is s/p tracheostomy tube (09/07) - s/p elective brochoscopy (09/02) - c/w steroids, xopenex, pulmicort - Pulmonology is following, recs appreciated - Maintain SaO2 > 90% - Hx recurrent L-lung atelectasis and mucus plugging s/p bronchoscopy x3 - Hx of COPD and smoking Cardio: - Pressors discontinued - c/w verapamil - Digoxin given by cardio - Digoxin level was 2.0 - Cario is following, recs appreciated - Maintain MAP > 65 - Hx of Afib - rate controlled - Hx of HTN and endovascular repair of AAA GI: - Patient is on enteric feeds via NG tube - CT Abd/Pelvis (09/09): consistent with enteritis and non-obstructing nephrolithiasis. No perforation or pneumatosis intestinalis. - Ostomy bag in tact - diarrhea - Hx Rectal cancer s/p total colectomy - s/p villous adenoma of the cecum excision complicated with viscus rupture and ex-lap and peritonitis Renal: - Patient has anasarca; c/w dialysis recommendations as per nephro - Multiple hypotensive episodes after HD; patient is not tolerating appropriately. Fluid was taken off during last dialysis session. - BUN/Cr is 86/1.5 - Ins/outs; net -35 mL in the past 24 hours - s/p shiley catheter for HD (09/09) due to uremia Heme: - Hgb 8.5 - stable - No signs of active bleeding at this time - Continue to monitor ID: - Antibiotics (merrem and dapto) were discontinued by ID as patient completed course - Afebrile, mild leukocytosis likely 2/2 steroids - VRE+ Endo: - Maintain euglycemia - ISS - low Prophylaxis: - DVT ppx: SCD, Hep SC - GI ppx: pepcid Palliative care is on board. Dispo: Overall prognosis is guarded. Patient's prognosis is poor. Pending placement for LTACH that can take dialysis. Follow up further recommendations as per surgical team. Case was discussed and reviewed with Attending Physician, Dr. Cochran <Lev Cochran - Last Filed: 09/13/18 13:54> CCU Objective - Vital Signs / Intake & Output Vital Signs (Last 4 hours): Vital Signs Temp Pulse Resp BP 09/13/18 13:43 128/44 L 09/13/18 13:41 97.2 F L 91 H 22 128/44 L 09/13/18 10:16 88 146/59 L Intake and Output (Last 8hrs): Intake & Output 09/12/18 09/13/18 09/13/18 22:59 06:59 14:59 Intake Total 1380 0 Output Total 1415 Balance -35 0 Intake: IV 900 Left Upper arm 900 Tube Feeding 480 Blood Product 0 Red Blood Cells Cpd As1 0 Lr Unit [id number] Output: Drainage 1190 Colostomy 1000 Right Abdomen 190 Urine 225 Urethral (Anthony) 225 - Medications Active Medications: Active Medications Generic Name Dose Route Start Last Admin Trade Name Freq PRN Reason Stop Dose Admin Acetylcysteine 4 ml 09/02/18 08:00 09/04/18 20:05 Acetylcysteine 20% IH Not Given [id number] KD Albumin Human 12.5 gm 09/13/18 12:00 09/13/18 12:23 Albumin Human 25% (12.5 Gm/50 Ml) IV 09/14/18 12:01 12.5 gm Q6H KD Administration Albumin Human 12.5 gm 09/13/18 11:10 Albumin Human 25% (12.5 Gm/50 Ml) IV 09/18/18 11:11 DAILY PRN LOW BP DURING HD X 3 DOSES Aspirin 81 mg 09/05/18 11:30 09/13/18 09:32 Aspirin Chewable PO 81 mg DAILY KD Administration Budesonide 0.5 mg 08/13/18 08:00 09/13/18 07:48 Pulmicort Respules IH 0.5 mg [id number] KD Administration Calcium Acetate 667 mg 09/10/18 10:00 09/13/18 09:11 Phoslo GT 667 mg TID KD Administration Dextrose 0 ml 09/05/18 15:56 Dextrose 50% Inj IV STAT PRN Hypoglycemia Protocol Protocol Emollient Ointment 5 gm 09/12/18 16:56 Vaseline Oint TOP PRN PRN Dry skin Famotidine 20 mg 08/21/18 10:00 09/13/18 09:11 Pepcid PO 20 mg DAILY KD Administration Furosemide 20 mg 09/13/18 14:00 Lasix IV 0800,1400 [facility] Heparin Sodium (Porcine) 5,000 units 09/08/18 14:00 09/13/18 05:22 Heparin SC 5,000 units Q8 KD Administration Protocol Heparin Sodium (Porcine) 5,000 units 09/10/18 11:57 Heparin IV POSTDI PRN CATH PROPH Hydralazine HCl 10 mg 09/12/18 09:22 Apresoline PO QID PRN for sbp>170 Hydrocortisone Sodium Succinate 25 mg 09/13/18 10:19 Solu-Cortef IVP Q12H [facility] Insulin Human Regular 0 units 09/03/18 12:00 09/13/18 09:11 Humulin R Low SC 1 units Q6 KD Administration Protocol Levalbuterol HCl 0.63 mg 08/18/18 08:00 09/13/18 13:44 Xopenex IH 0.63 mg [id number] KD Administration Verapamil HCl 40 mg 09/08/18 18:15 09/13/18 10:16 Calan Tab PO 40 mg Q8H KD Administration Verapamil HCl 2.5 mg 09/11/18 09:42 Verapamil Inj IVP Q6H PRN for heart rate >130 - Patient Studies Lab Studies: Microbiology Studies 09/07/18 18:48 Gram Stain - Final Body Fluid - Abdominal Cavity Body Fluid Culture - Final No growth. 09/07/18 20:40 Gram Stain - Final Other: Please Indicate Wound Culture - Final No growth. Lab Studies 09/13/18 09/13/18 09/13/18 Range/Units 11:35 11:10 07:00 WBC (4.5-11.0) 10^3/uL RBC (3.5-6.1) 10^6/uL Hgb (14.0-18.0) g/dL Hct (42.0-52.0) % MCV (80.0-105.0) fl MCH (25.0-35.0) pg MCHC (31.0-37.0) g/dl RDW (11.5-14.5) % Plt Count (120.0-450.0) 10^3/uL MPV (7.0-11.0) fl pCO2 (35-45) mm/Hg pO2 (80-100) mm/Hg HCO3 (21-28) mmol/L ABG pH (7.35-7.45) ABG Total CO2 (22-28) mmol.L ABG O2 Saturation (95-98) % ABG O2 Content (15-23) ML/dl ABG Base Excess (-2.0-3.0) mmol/L ABG Hemoglobin (11.7-17.4) g/dL ABG Carboxyhemoglobin (0.5-1.5) % POC ABG HHb (Measured) (0-5) % ABG Methemoglobin (0.0-3.0) % ABG O2 Capacity (16-24) mL/dl Hgb O2 Saturation (95.0-98.0) % FiO2 % Sodium (132-148) mmol/L Potassium (3.6-5.0) mmol/L Chloride (98-107) mmol/L Carbon Dioxide (21-33) mmol/L Anion Gap (10-20) BUN (7-21) mg/dL Creatinine (0.8-1.5) mg/dl Est GFR ( Amer) Est GFR (Non-Af Amer) POC Glucose (mg/dL) (65-110) mg/dL Random Glucose (70-110) mg/dL Calcium (8.4-10.5) mg/dL Phosphorus (2.5-4.5) mg/dL Magnesium (1.7-2.2) mg/dL Total Bilirubin (0.2-1.3) mg/dL AST (17-59) U/L ALT (7-56) U/L Alkaline Phosphatase (38-126) U/L Total Protein (5.8-8.3) g/dL Albumin (3.0-4.8) g/dL Globulin gm/dL Albumin/Globulin Ratio (1.1-1.8) Stool Occult Blood Positive H (NEGATIVE) Digoxin 2.0 (0.8-2.0) ng/mL Blood Type O POSITIVE Antibody Screen Negative Crossmatch See Detail BBK History Checked Patient has bt 09/13/18 09/13/18 09/13/18 Range/Units 07:00 07:00 05:40 WBC 14.8 H (4.5-11.0) 10^3/uL RBC 2.78 L (3.5-6.1) 10^6/uL Hgb 8.5 L (14.0-18.0) g/dL Hct 25.6 L (42.0-52.0) % MCV 92.1 (80.0-105.0) fl MCH 30.6 (25.0-35.0) pg MCHC 33.2 (31.0-37.0) g/dl RDW 20.1 H (11.5-14.5) % Plt Count 95 L (120.0-450.0) 10^3/uL MPV 11.5 H (7.0-11.0) fl pCO2 43 (35-45) mm/Hg pO2 108.0 H (80-100) mm/Hg HCO3 20.2 L (21-28) mmol/L ABG pH 7.28 L (7.35-7.45) ABG Total CO2 21.5 L (22-28) mmol.L ABG O2 Saturation 99.4 H (95-98) % ABG O2 Content 15.2 (15-23) ML/dl ABG Base Excess -6.3 L (-2.0-3.0) mmol/L ABG Hemoglobin 11.1 L (11.7-17.4) g/dL ABG Carboxyhemoglobin 2.0 H (0.5-1.5) % POC ABG HHb (Measured) 0.6 (0-5) % ABG Methemoglobin 1.2 (0.0-3.0) % ABG O2 Capacity 15.3 L (16-24) mL/dl Hgb O2 Saturation 96.1 (95.0-98.0) % FiO2 50.0 % Sodium 131 L (132-148) mmol/L Potassium 4.0 (3.6-5.0) mmol/L Chloride 101 (98-107) mmol/L Carbon Dioxide 21 (21-33) mmol/L Anion Gap 13 (10-20) BUN 86 H (7-21) mg/dL Creatinine 1.5 (0.8-1.5) mg/dl Est GFR ( Amer) 54 Est GFR (Non-Af Amer) 45 POC Glucose (mg/dL) (65-110) mg/dL Random Glucose 168 H (70-110) mg/dL Calcium 7.0 L (8.4-10.5) mg/dL Phosphorus 6.1 H (2.5-4.5) mg/dL Magnesium 2.1 (1.7-2.2) mg/dL Total Bilirubin 4.1 H (0.2-1.3) mg/dL AST 65 H (17-59) U/L ALT 87 H (7-56) U/L Alkaline Phosphatase 84 (38-126) U/L Total Protein 3.8 L (5.8-8.3) g/dL Albumin 1.9 L (3.0-4.8) g/dL Globulin 1.9 gm/dL Albumin/Globulin Ratio 1.0 L (1.1-1.8) Stool Occult Blood (NEGATIVE) Digoxin (0.8-2.0) ng/mL Blood Type Antibody Screen Crossmatch BBK History Checked 09/13/18 09/12/18 Range/Units 00:00 18:05 WBC (4.5-11.0) 10^3/uL RBC (3.5-6.1) 10^6/uL Hgb (14.0-18.0) g/dL Hct (42.0-52.0) % MCV (80.0-105.0) fl MCH (25.0-35.0) pg MCHC (31.0-37.0) g/dl RDW (11.5-14.5) % Plt Count (120.0-450.0) 10^3/uL MPV (7.0-11.0) fl pCO2 (35-45) mm/Hg pO2 (80-100) mm/Hg HCO3 (21-28) mmol/L ABG pH (7.35-7.45) ABG Total CO2 (22-28) mmol.L ABG O2 Saturation (95-98) % ABG O2 Content (15-23) ML/dl ABG Base Excess (-2.0-3.0) mmol/L ABG Hemoglobin (11.7-17.4) g/dL ABG Carboxyhemoglobin (0.5-1.5) % POC ABG HHb (Measured) (0-5) % ABG Methemoglobin (0.0-3.0) % ABG O2 Capacity (16-24) mL/dl Hgb O2 Saturation (95.0-98.0) % FiO2 % Sodium (132-148) mmol/L Potassium (3.6-5.0) mmol/L Chloride (98-107) mmol/L Carbon Dioxide (21-33) mmol/L Anion Gap (10-20) BUN (7-21) mg/dL Creatinine (0.8-1.5) mg/dl Est GFR ( Amer) Est GFR (Non-Af Amer) POC Glucose (mg/dL) 151 H 201 H (65-110) mg/dL Random Glucose (70-110) mg/dL Calcium (8.4-10.5) mg/dL Phosphorus (2.5-4.5) mg/dL Magnesium (1.7-2.2) mg/dL Total Bilirubin (0.2-1.3) mg/dL AST (17-59) U/L ALT (7-56) U/L Alkaline Phosphatase (38-126) U/L Total Protein (5.8-8.3) g/dL Albumin (3.0-4.8) g/dL Globulin gm/dL Albumin/Globulin Ratio (1.1-1.8) Stool Occult Blood (NEGATIVE) Digoxin (0.8-2.0) ng/mL Blood Type Antibody Screen Crossmatch BBK History Checked Laboratory Results - last 24 hr 09/12/18 09/13/18 09/13/18 18:05 00:00 05:40 WBC RBC Hgb Hct MCV MCH MCHC RDW Plt Count MPV pCO2 43 pO2 108.0 H HCO3 20.2 L ABG pH 7.28 L ABG Total CO2 21.5 L ABG O2 Saturation 99.4 H ABG O2 Content 15.2 ABG Base Excess -6.3 L ABG Hemoglobin 11.1 L ABG Carboxyhemoglobin 2.0 H POC ABG HHb (Measured) 0.6 ABG Methemoglobin 1.2 ABG O2 Capacity 15.3 L Hgb O2 Saturation 96.1 FiO2 50.0 Sodium Potassium Chloride Carbon Dioxide Anion Gap BUN Creatinine Est GFR ( Amer) Est GFR (Non-Af Amer) POC Glucose (mg/dL) 201 H 151 H Random Glucose Calcium Phosphorus Magnesium Total Bilirubin AST ALT Alkaline Phosphatase Total Protein Albumin Globulin Albumin/Globulin Ratio Stool Occult Blood Digoxin Blood Type Antibody Screen Crossmatch BBK History Checked 09/13/18 09/13/18 09/13/18 07:00 07:00 07:00 WBC 14.8 H RBC 2.78 L Hgb 8.5 L Hct 25.6 L MCV 92.1 MCH 30.6 MCHC 33.2 RDW 20.1 H Plt Count 95 L MPV 11.5 H pCO2 pO2 HCO3 ABG pH ABG Total CO2 ABG O2 Saturation ABG O2 Content ABG Base Excess ABG Hemoglobin ABG Carboxyhemoglobin POC ABG HHb (Measured) ABG Methemoglobin ABG O2 Capacity Hgb O2 Saturation FiO2 Sodium 131 L Potassium 4.0 Chloride 101 Carbon Dioxide 21 Anion Gap 13 BUN 86 H Creatinine 1.5 Est GFR ( Amer) 54 Est GFR (Non-Af Amer) 45 POC Glucose (mg/dL) Random Glucose 168 H Calcium 7.0 L Phosphorus 6.1 H Magnesium 2.1 Total Bilirubin 4.1 H AST 65 H ALT 87 H Alkaline Phosphatase 84 Total Protein 3.8 L Albumin 1.9 L Globulin 1.9 Albumin/Globulin Ratio 1.0 L Stool Occult Blood Digoxin 2.0 Blood Type Antibody Screen Crossmatch BBK History Checked 09/13/18 09/13/18 11:10 11:35 WBC RBC Hgb Hct MCV MCH MCHC RDW Plt Count MPV pCO2 pO2 HCO3 ABG pH ABG Total CO2 ABG O2 Saturation ABG O2 Content ABG Base Excess ABG Hemoglobin ABG Carboxyhemoglobin POC ABG HHb (Measured) ABG Methemoglobin ABG O2 Capacity Hgb O2 Saturation FiO2 Sodium Potassium Chloride Carbon Dioxide Anion Gap BUN Creatinine Est GFR ( Amer) Est GFR (Non-Af Amer) POC Glucose (mg/dL) Random Glucose Calcium Phosphorus Magnesium Total Bilirubin AST ALT Alkaline Phosphatase Total Protein Albumin Globulin Albumin/Globulin Ratio Stool Occult Blood Positive H Digoxin Blood Type O POSITIVE Antibody Screen Negative Crossmatch See Detail BBK History Checked Patient has bt Critical Care Progress Note - Nutrition Nutrition: Nutrition Category Date Time Status NPO Diet [DIET] Diets 09/02/18 Lunch Ordered Assessment/Plan - Assessment and Plan (Free Text) Plan: Patient seen and examined on rounds with resident, agree with note with following additions/exceptions: Patient is 82yo male with PMHx of severe COPD, HTN, 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 Cultures from 09/06 negative, on abx as per ID On HD for volume overload, with very poor tolerance of HD Vent dependent Severe COPD HTN Respiratory failure s/p tracheostomy s/p ex-lap and ileal perforation VRE sepsis Renal failure/volume overload on HD Recommend: - cont with low tidal vol ventilation, duonebs PRN, goal sat 90% - chest PT, frequent suctioning, Pulmicort, follow up Pulm - Antibiotics as per ID - BP control - HD as per renal - vaospressor support - follow up ID - monitor renal function - monitor platelets - follow up Palliative care - GI ppx - DVT ppx, HSQ - Monitor in MICU Family discussion Poor prognosis Critical care time 40 minutes
[2018-09-13] MEDS: Albumin Human 25% (12.5 gm/50 ml) IV SCH ×3 (12:23→23:14)
--- NOTE | 2018-09-13 13:52 | CP.PCM.PN ---
<Tito Doan - Last Filed: 09/13/18 13:39> Subjective - Date & Time of Evaluation Date of Evaluation: 09/13/18 Time of Evaluation: 13:39 - Subjective Subjective: Infectious disease progress note for Dr. Quispe/Dr. Garvin service - Carlton Doan PGY3 Patient seen and examined at bedside this morning. No reported overnight events. Patient is presently off sedation and pressors. Antibiotics have been discontinued after having completed 10days of meropenem and 7 days of daptomycin. 12point ROS limited due to patient status. Objective - Vital Signs/Intake and Output Vital Signs (last 24 hours): Temp Pulse Resp BP Pulse Ox 97.8 F 88 21 146/59 L 30 L 09/13/18 04:00 09/13/18 10:16 09/13/18 07:48 09/13/18 10:16 09/13/18 07:48 - Medications Medications: Current Medications Acetylcysteine (Acetylcysteine 20%) 4 ml IH [id number] [facility] Last Admin: 09/04/18 20:05 Dose: Not Given Albumin Human (Albumin Human 25% (12.5 Gm/50 Ml)) 12.5 gm IV Q6H [facility] Stop: 09/14/18 12:01 Last Admin: 09/13/18 12:23 Dose: 12.5 gm Albumin Human (Albumin Human 25% (12.5 Gm/50 Ml)) 12.5 gm IV DAILY PRN PRN Reason: LOW BP DURING HD X 3 DOSES Stop: 09/18/18 11:11 Aspirin (Aspirin Chewable) 81 mg PO DAILY [facility] Last Admin: 09/13/18 09:32 Dose: 81 mg Budesonide (Pulmicort Respules) 0.5 mg IH [id number] [facility] Last Admin: 09/13/18 07:48 Dose: 0.5 mg Calcium Acetate (Phoslo) 667 mg GT TID [facility] Last Admin: 09/13/18 09:11 Dose: 667 mg Dextrose (Dextrose 50% Inj) 0 ml IV STAT PRN; Protocol PRN Reason: Hypoglycemia Protocol Emollient Ointment (Vaseline Oint) 5 gm TOP PRN PRN PRN Reason: Dry skin Famotidine (Pepcid) 20 mg PO DAILY [facility] Last Admin: 09/13/18 09:11 Dose: 20 mg Furosemide (Lasix) 20 mg IV 0800,1400 [facility] Heparin Sodium (Porcine) (Heparin) 5,000 units SC Q8 KD; Protocol Last Admin: 09/13/18 05:22 Dose: 5,000 units Heparin Sodium (Porcine) (Heparin) 5,000 units IV POSTDI PRN PRN Reason: CATH PROPH Hydralazine HCl (Apresoline) 10 mg PO QID PRN PRN Reason: for sbp>170 Hydrocortisone Sodium Succinate (Solu-Cortef) 25 mg IVP Q12H [facility] Insulin Human Regular (Humulin R Low) 0 units SC Q6 KD; Protocol Last Admin: 09/13/18 09:11 Dose: 1 units Levalbuterol HCl (Xopenex) 0.63 mg IH [id number] [facility] Last Admin: 09/13/18 07:48 Dose: 0.63 mg Verapamil HCl (Calan Tab) 40 mg PO Q8H [facility] Last Admin: 09/13/18 10:16 Dose: 40 mg Verapamil HCl (Verapamil Inj) 2.5 mg IVP Q6H PRN PRN Reason: for heart rate >130 - Labs Labs: 09/13/18 07:00 09/13/18 07:00 PT 15.1 SECONDS (9.4-12.5) H 09/06/18 05:01 INR 1.31 09/06/18 05:01 APTT 31.7 Seconds (25.1-36.5) 09/06/18 05:01 - Constitutional Appears: Chronically Ill - Head Exam Head Exam: ATRAUMATIC, NORMOCEPHALIC - Eye Exam Eye Exam: EOMI, PERRL - ENT Exam ENT Exam: Mucous Membranes Moist - Respiratory Exam Respiratory Exam: absent: Rales, Rhonchi, Wheezes - Cardiovascular Exam Cardiovascular Exam: +S1, +S2. absent: Gallop, Rubs - GI/Abdominal Exam GI & Abdominal Exam: Soft. absent: Distended, Firm, Guarding, Rigid, Tenderness, Rebound Additional comments: colostomy in place; clean/dry/intact; - Neurological Exam Neurological Exam: Alert, Awake - Skin Skin Exam: Dry, Intact, Normal Color, Warm Assessment and Plan - Assessment and Plan (Free Text) Plan: Patient is a 82yo male with history of rectal adenocarcinoma s/p hemicolectomy admitted to the icu with VDRF secondary to sepsis due to perforated ileum S/P ex-lap and resection of terminal ileum and primary anastomosis 1. severe sepsis secondary perforated ileum s/p ex-lap 2. ventilator-dependent respiratory failure s/p tracheostomy 3. VRE and C. tropicalis wound cultures 4. r/o hcap and line-related infection 5. Rectal Cancer 6. Atrial fibrillation 7. CAD 8. CHF, chronic 9. GERD -Completed 10day course of meropenem and 7day course of daptomycin; presently being monitored clinically off antibiotics -Previously received micamin given risk for fungal infections -Repeat blood cultures negative -Lines previously removed/replaced -cdiff negative -CXR reviewed -Continue current management as per ICU/Surgical teams -Overall prognosis remains poor Patient seen and case discussed/reviewed with attending, Dr. Quispe <Barry Quispe - Last Filed: 09/13/18 22:00> Objective - Vital Signs/Intake and Output Vital Signs (last 24 hours): Temp Pulse Resp BP Pulse Ox 97.8 F 94 H 20 145/67 99 09/13/18 14:48 09/13/18 19:00 09/13/18 14:48 09/13/18 19:00 09/13/18 19:00 Intake and Output: 09/13/18 09/14/18 18:59 06:59 Intake Total 0 600 Output Total 1020 Balance 0 -420 - Medications Medications: Current Medications Acetylcysteine (Acetylcysteine 20%) 4 ml IH [id number] [facility] Last Admin: 09/04/18 20:05 Dose: Not Given Albumin Human (Albumin Human 25% (12.5 Gm/50 Ml)) 12.5 gm IV Q6H [facility] Stop: 09/14/18 12:01 Last Admin: 09/13/18 18:12 Dose: 12.5 gm Albumin Human (Albumin Human 25% (12.5 Gm/50 Ml)) 12.5 gm IV DAILY PRN PRN Reason: LOW BP DURING HD X 3 DOSES Stop: 09/18/18 11:11 Aspirin (Aspirin Chewable) 81 mg PO DAILY [facility] Last Admin: 09/13/18 09:32 Dose: 81 mg Budesonide (Pulmicort Respules) 0.5 mg IH [id number] [facility] Last Admin: 09/13/18 19:30 Dose: 0.5 mg Calcium Acetate (Phoslo) 667 mg GT TID [facility] Last Admin: 09/13/18 18:10 Dose: 667 mg Dextrose (Dextrose 50% Inj) 0 ml IV STAT PRN; Protocol PRN Reason: Hypoglycemia Protocol Emollient Ointment (Vaseline Oint) 5 gm TOP PRN PRN PRN Reason: Dry skin Famotidine (Pepcid) 20 mg PO DAILY [facility] Last Admin: 09/13/18 09:11 Dose: 20 mg Furosemide (Lasix) 20 mg IV 0800,1400 [facility] Last Admin: 09/13/18 14:58 Dose: Not Given Heparin Sodium (Porcine) (Heparin) 5,000 units SC Q8 KD; Protocol Last Admin: 09/13/18 14:59 Dose: Not Given Heparin Sodium (Porcine) (Heparin) 5,000 units IV POSTDI PRN PRN Reason: CATH PROPH Hydralazine HCl (Apresoline) 10 mg PO QID PRN PRN Reason: for sbp>170 Hydrocortisone Sodium Succinate (Solu-Cortef) 25 mg IVP Q12H [facility] Last Admin: 09/13/18 14:52 Dose: Not Given Insulin Human Regular (Humulin R Low) 0 units SC Q6 KD; Protocol Last Admin: 09/13/18 18:22 Dose: Not Given Levalbuterol HCl (Xopenex) 0.63 mg IH [id number] [facility] Last Admin: 09/13/18 19:30 Dose: 0.63 mg Verapamil HCl (Calan Tab) 40 mg PO Q8H [facility] Last Admin: 09/13/18 18:10 Dose: 40 mg Verapamil HCl (Verapamil Inj) 2.5 mg IVP Q6H PRN PRN Reason: for heart rate >130 - Labs Labs: 09/13/18 07:00 09/13/18 07:00 PT 15.1 SECONDS (9.4-12.5) H 09/06/18 05:01 INR 1.31 09/06/18 05:01 APTT 31.7 Seconds (25.1-36.5) 09/06/18 05:01 Assessment and Plan - Assessment and Plan (Free Text) Plan: Infectious diseases Attending Physician Attestation Patient seen and examined, discussed with medical assisting instructor. I have reviewed the patient's history of present illness, past medical, social, personal and family histories, pertinent physical exam findings, course so far in this hospital admission, pertinent laboratory and imaging results. I agree with the above findings, assessment and plan. In addition, will continue to monitor this patient who is S/P ex-lap for perforated ileum with sepsis S/P resection and anastomosis, grew VRE. Overall prognosis is poor. Discussed with Dr. Du.
--- NOTE | 2018-09-13 15:49 | PN ---
DATE: 09/13/2018 REASON FOR CONSULTATION AND FOLLOWUP: Atrial fibrillation status post tracheostomy, intubated through the trach, abdominal surgery, multiorgan dysfunction, severe hypoproteinemia, severe protein-calorie malnutrition. SUBJECTIVE: The patient is very weak, lethargic, barely opens eyes on verbal response. PHYSICAL EXAMINATION: VITAL SIGNS: Temperature afebrile, heart rate 92, blood pressure 109/44. HEENT: PERRLA. Extraocular muscles intact. NECK: Supple. No carotid bruit or thyromegaly. CHEST: Clear to auscultation. HEART: S1 and S2, regular. ABDOMEN: Soft. EXTREMITIES: Clubbing, cyanosis negative. LABORATORY DATA: WBC 14.8, hemoglobin 8.2, hematocrit 25.6, platelet count 95. Chemistries show sodium 130, potassium 4, chloride 101, carbon dioxide 21, anion gap of 13, BUN 16, creatinine 1.5. IMPRESSION: An 82-year-old male with past medical history significant for chronic atrial fibrillation, history of triple abdominal aortic aneurysm, endovascular repair in the past in April, history of colostomy in the past, has found to be villous adenoma of the cecum, status post resection of the colon, right hemicolectomy done. Hospital course is complicated with multiple episodes of atelectasis and collapse of the left lung requiring multiple times bronchoscopy and later on complicated by perforation of the hollow viscus of the bowel requiring dissection of the segment of the perforated bowel and end-to-end anastomosis. Later on, the patient collapsed and ultimately the patient was intubated and remained intubated now. The patient is status post tracheostomy. Now, the patient has multiorgan dysfunction and two or three bouts of dialysis, but the patient dropped the blood pressure. Discussed in length with Dr. Sara Ramirez (content director). The patient cannot tolerate much dialysis, the heart rate becomes very rapid and dropped the blood pressure. RECOMMENDATIONS: We will start IV albumin yesterday as given and then we will consider IV Lasix 20 mg every 12 hours as blood pressure is tolerated. Dig level is 2 and we will not give more today. Continue through the Dobhoff verapamil. Increase nutrition supportive as tolerated. Continue if heart rate more than 130. Overall, the patient's condition is critical, long-term prognosis is guarded. Needs long-term placement. We will follow with you. Thank you Dr. Du/Dr. Fleming for providing us the opportunity in taking care of the patient, Alexia. We will follow with you. We will put low dose of Lasix 20 mg every 12 hours. Furthermore the Lasix needs, we will as blood pressure is tolerated. Gladis Greenfield MD
[2018-09-14] MEDS: Levalbuterol 0.63 MG/3 ML Inhal Soln UD IH SCH ×4 (01:48→20:30)
[2018-09-14] MEDS: Insulin Reg-LOW-Coverage SC SCH ×2 (01:52→08:57)
--- NOTE | 2018-09-14 02:20 | PN ---
DATE: 09/13/2018 SUBJECTIVE: The patient is 82 years old, seen and examined, seems to be more alert, status post tracheostomy, getting nasogastric feeding, looks very pale, malnourished. PHYSICAL EXAMINATION: VITAL SIGNS: He is afebrile, pulse 94, respirations 18, blood pressure 145/62. LUNGS: Few soft crackle in the upper lung region. HEART: S1 and S2 audible, irregular, rate control. ABDOMEN: Soft. LABORATORY DATA: WBC is 14.8, hemoglobin 8.5, hematocrit 25.6, platelet of 95. Chemistry with sodium 131, potassium 4, chloride 101, CO2 of 21, BUN 96, creatinine 1.5. Blood sugar of 142. Stool for C. difficile is negative. X-ray chest shows no acute changes. ASSESSMENT: 1. Respiratory failure, status post tracheostomy. 2. Sepsis. 3. Acute renal failure, status post multiple dialysis. 4. Status post laparotomy, partial colectomy and ileal resection followed by end-to-end anastomosis. 5. Thrombocytopenia. 6. Seizure disorder. 7. Chronic atrial fibrillation. 8. Chronic obstructive pulmonary disease. PLAN: Currently, the patient is on albumin. He is getting aspirin. He is on verapamil. He is on DVT prophylaxis. He is off of antibiotics. The plan is to give PEG feeding and if he is stable, he can be transferred to LTAC. Tri Fleming MD
[2018-09-14] MEDS: Albumin Human 25% (12.5 gm/50 ml) IV SCH ×2 (05:27→17:18)
--- NOTE | 2018-09-14 06:17 | PN ---
DATE: 09/13/2018 SUBJECTIVE: This 82-year-old male was examined at his bedside on the morning of 09/13/2018 in the presence of nurse, Ambrocio Street, registered nurse. The patient is more alert. He is being ventilated via his trach. I have had a lengthy discussion with Dr. Rocael Du from surgery who is the patient's primary care physician regarding his renal status. The patient had an attempt at hemodialysis on the afternoon of 09/12/2018 at which point his was present for the interview. We were successful in removing approximately 1100 mL of ultrafiltrate; however, the patient as per previous dialysis events became hypotensive, unresponsive and pale and clammy. At this point, dialysis was terminated and as discussed with Dr. Rocael Du and Dr. Greenfield from Cardiology, given the fact that the patient's azotemia has improved as well as his volume status, dialysis will be withheld at this point in time. PHYSICAL EXAMINATION: GENERAL: For my interview of this patient; he was alert, responsive, and able to answer commands. He was in atrial fibrillation rhythm on the radiation monitor. VITAL SIGNS: Temperature 97.7, pulse 86, blood pressure 121/58 and O2 sat 100% on 30% FIO2. HEENT: Head is normocephalic and atraumatic. Eyes; no icterus. NECK: Supple. HEART: Irregular S1, S2. LUNGS: Decreased breath sounds at the base. ABDOMEN: Soft. Colostomy functioning. EXTREMITIES: Legs 1+ edema. SKIN: Without ulcer of his heels on inspection. VASCULAR: Legs warm to touch. PSYCHOLOGIC: Answers appropriately to verbal commands. NEUROLOGIC: Marked deconditioning. LABORATORY DATA: White count 14,800, hemoglobin 8.5, hematocrit 25.6 and platelets 95,000. Stool was checked for guaiac which was positive. Chemistry; sodium 131, K 4.0, chloride 101, bicarb 21, BUN 86, creatinine 1.5, random blood sugar 168, calcium 7.0. Phosphorous 6.1, magnesium 2.1. Bilirubin 4.1, AST 65, ALT 87 and alk phos 84. IMPRESSION: This is an 82-year-old male with [id number] renal insufficiency, systolic congestive heart failure, rapid atrial fibrillation, insulin-dependent diabetes mellitus, peptic ulcer disease, probable stress gastritis, hyperphosphatemia, exacerbation of chronic obstructive pulmonary disease and chronic anemia. PLAN: My plans as discussed with Dr. Du, Dr. Greenfield and nurse Jad will be to order blood transfusion for this patient today and he will continue on Pepcid through his Dobbhoff tube 20 mg daily given renal insufficiency and history of thrombocytopenia. We will now manage his volume status with IV albumin and IV Lasix. He will continue on insulin coverage, PhosLo through his NG tube, Pulmicort inhalational therapy, tapering doses of Solu-Cortef, Xopenex inhalational therapy, and Nepro tube feeds, and water flushes while monitoring I's and O's and trying to maintain a slight negative fluid balance. He is scheduled for comprehensive metabolic panel, magnesium, phosphorus level and CBC in the a.m. He will be treated supportively. Of note, he is now off pressor support and is remaining a full code and being evaluated for LTAC. All of the above was reviewed with the patient, nursing and co-consultants. Overall prognosis though poor remains stable at present. Sara Ramirez MD MTDJevon
[2018-09-14 07:16] LABS: MEAN CELL VOLUME 91.1 fl (80.0-105.0); MEAN CORPUSCULAR HEMOGLOBIN 30.7 pg (25.0-35.0); MEAN CORPUSCULAR HGB CONC 33.7 g/dl (31.0-37.0); MEAN PLATELET VOLUME 10.9 fl (7.0-11.0); RBC 3.26 10^6/uL (3.5-6.1); RED CELL DISTRIBUTION WIDTH 20.6 % (11.5-14.5); WHITE BLOOD COUNT 12.8 10^3/uL (4.5-11.0)
[2018-09-14] MEDS: Budesonide 0.5 mg/2 ml Inhal Susp UD IH SCH ×2 (07:21→20:30)
[2018-09-14 08:18] LABS: ALB/GLOB RATIO 1.2 (1.1-1.8); ALBUMIN 2.4 g/dL (3.0-4.8); CALCIUM 7.5 mg/dL (8.4-10.5)
--- NOTE | 2018-09-14 08:50 | CP.PCM.PN ---
Subjective - Date & Time of Evaluation Date of Evaluation: 09/14/18 Time of Evaluation: 07:00 - Subjective Subjective: Progress note for Dr. uD Pt seen and examined at bedside this AM. Patient still off pressors, intubated on PRVC, opening eyes voluntarily, no voluntary movement Objective - Vital Signs/Intake and Output Vital Signs (last 24 hours): Temp Pulse Resp BP Pulse Ox 97.5 F L 100 H 26 H 143/73 99 09/14/18 04:00 09/14/18 06:00 09/14/18 07:31 09/14/18 01:55 09/14/18 07:31 Intake and Output: 09/14/18 09/14/18 06:59 18:59 Intake Total 1130 Output Total 1830 Balance -700 - Medications Medications: Current Medications Acetylcysteine (Acetylcysteine 20%) 4 ml IH [id number] [facility] Last Admin: 09/04/18 20:05 Dose: Not Given Albumin Human (Albumin Human 25% (12.5 Gm/50 Ml)) 12.5 gm IV Q6H [facility] Stop: 09/14/18 12:01 Last Admin: 09/14/18 05:27 Dose: 12.5 gm Albumin Human (Albumin Human 25% (12.5 Gm/50 Ml)) 12.5 gm IV DAILY PRN PRN Reason: LOW BP DURING HD X 3 DOSES Stop: 09/18/18 11:11 Aspirin (Aspirin Chewable) 81 mg PO DAILY [facility] Last Admin: 09/13/18 09:32 Dose: 81 mg Budesonide (Pulmicort Respules) 0.5 mg IH [id number] [facility] Last Admin: 09/14/18 07:21 Dose: 0.5 mg Calcium Acetate (Phoslo) 667 mg GT TID [facility] Last Admin: 09/13/18 18:10 Dose: 667 mg Dextrose (Dextrose 50% Inj) 0 ml IV STAT PRN; Protocol PRN Reason: Hypoglycemia Protocol Emollient Ointment (Vaseline Oint) 5 gm TOP PRN PRN PRN Reason: Dry skin Famotidine (Pepcid) 20 mg PO DAILY [facility] Last Admin: 09/13/18 09:11 Dose: 20 mg Furosemide (Lasix) 20 mg IV 0800,1400 [facility] Last Admin: 09/13/18 14:58 Dose: Not Given Heparin Sodium (Porcine) (Heparin) 5,000 units SC Q8 KD; Protocol Last Admin: 09/14/18 05:29 Dose: 5,000 units Heparin Sodium (Porcine) (Heparin) 5,000 units IV POSTDI PRN PRN Reason: CATH PROPH Hydralazine HCl (Apresoline) 10 mg PO QID PRN PRN Reason: for sbp>170 Hydrocortisone Sodium Succinate (Solu-Cortef) 25 mg IVP Q12H [facility] Last Admin: 09/13/18 21:56 Dose: 25 mg Insulin Human Regular (Humulin R Low) 0 units SC Q6 KD; Protocol Last Admin: 09/14/18 01:52 Dose: Not Given Levalbuterol HCl (Xopenex) 0.63 mg IH [id number] [facility] Last Admin: 09/14/18 07:21 Dose: 0.63 mg Verapamil HCl (Calan Tab) 40 mg PO Q8H [facility] Last Admin: 09/14/18 01:55 Dose: 40 mg Verapamil HCl (Verapamil Inj) 2.5 mg IVP Q6H PRN PRN Reason: for heart rate >130 - Labs Labs: 09/14/18 06:45 09/14/18 06:45 PT 15.1 SECONDS (9.4-12.5) H 09/06/18 05:01 INR 1.31 09/06/18 05:01 APTT 31.7 Seconds (25.1-36.5) 09/06/18 05:01 - Constitutional Appears: Chronically Ill - Head Exam Head Exam: ATRAUMATIC, NORMOCEPHALIC - Eye Exam Eye Exam: Normal appearance. absent: Conjunctival injection, Scleral icterus - ENT Exam ENT Exam: Mucous Membranes Moist, Normal Oropharynx - Neck Exam Additional comments: tracheostomy tube in place - Respiratory Exam Respiratory Exam: absent: Accessory Muscle Use, Respiratory Distress Additional comments: on mechanical ventilation - Cardiovascular Exam Cardiovascular Exam: RRR - GI/Abdominal Exam GI & Abdominal Exam: Soft. absent: Distended, Tenderness Additional comments: ostomy in place pink, patent, and productive of liquid stool, mayra drain in the RLQ with clear serous fluid - Extremities Exam Extremities Exam: Pedal Edema. absent: Calf Tenderness, Tenderness - Neurological Exam Neurological Exam: Altered, Awake - Psychiatric Exam Psychiatric exam: Flat Affect - Skin Skin Exam: Dry, Normal Color, Warm Assessment and Plan - Assessment and Plan (Free Text) Assessment: 82M s/p ex lap w/ileal perforation repair on 08/11 s/p tracheostomy for respiratory failure requiring mechanical ventilation on 11/07 resolved VRE+ peritonitis Renal failure requiring hemodialysis Plan: Continue to monitor daily labs Continue monitor intake and outputs F/U nephrology, cardiology, ID, ICU, and pulmonology recs Continue tube feeds Continue IV antibiotics Pursuing LTAC with help of casemanagement when patient deemed stable by all consultants Continue to discuss goals of care with family Discussed with Dr. Du, Ronda Lau, PGY2
--- NOTE | 2018-09-14 09:11 | RAD ---
Date of service: 09/14/2018 HISTORY: f/u COMPARISON: 09/13/2018 FINDINGS: LUNGS: No active pulmonary disease. PLEURA: Small bilateral effusions CARDIOVASCULAR: No aortic atherosclerotic calcification present. Normal cardiac size. No pulmonary vascular congestion. OSSEOUS STRUCTURES: No significant abnormalities. VISUALIZED UPPER ABDOMEN: Normal. OTHER FINDINGS: Central lines and tubes unchanged IMPRESSION: No significant interval change
--- NOTE | 2018-09-14 09:43 | PN ---
DATE: 09/14/2018(635am-725am) PULMONARY NOTE SUBJECTIVE: The patient remains in the ICU and on the ventilator. He is less lethargic this morning. OBJECTIVE: VITAL SIGNS: Temperature is 97.5, pulse is 100, respiratory rate 20/20, blood pressure 143/73. HEENT: Normocephalic. NECK: Positive tracheostomy. No JVD. CARDIOVASCULAR: Systolic ejection murmur at the lower left sternal border. Questionable S3 gallop. LUNGS: Decreased breath sounds at the bases (improved overall). Minimal/less rhonchi. No wheezing. EXTREMITIES: Mild edema. No cyanosis, no clubbing. Calves are nontender to palpation. GASTROINTESTINAL: Abdomen is soft, nontender, nondistended. Bowel sounds are positive. Abdomen is postoperative. SKIN: No acute rash. NEUROLOGIC: Exam limited at the present time. PERTINENT LABORATORY DATA: Chest x-ray was done this morning and reviewed. There is minimal consolidation at the left base. There is a slight increase in the consolidation noted at the right base. There is no significant pulmonary edema. Arterial blood gas is pending. IMPRESSION: 1. Recurrent left lung atelectasis. 2. Congestive heart failure. 3. Atrial fibrillation. 4. Intra-abdominal perforation. 5. Status post right hemicolectomy. 6. Advanced chronic obstructive pulmonary disease. 7. Anemia, thrombocytopenia. 8. Renal failure. PLAN: The patient remains in the ICU. He remains on the ventilator. He is much less lethargic - compared to yesterday. I did discuss the case with the night nurse at length. The night nurse stated that the patient actually had a pretty good night. I did review the chest x-ray as above. Findings are noted. We will continue the current pulmonary medications for now. The patient also remains on low-dose intravenous Solu-Cortef. Inputs by Renal, Infectious Disease, and Cardiology are noted. Again, we are awaiting the morning arterial blood gas to be done. The patient remains critically ill, with overall poor prognosis. I will discuss the above with the entire ICU team in the next few moments. I will also discuss the above with the attending physician later this morning. Rosalio Blevins MD MTDD
--- NOTE | 2018-09-14 10:08 | CP.CCUPN ---
<Godfrey Lehman - Last Filed: 09/14/18 10:08> CCU Subjective - Physician Review Subjective (Free Text): Godfrey Lehman, PGY1 ICU Progress Note for Dr. Cochran Patient was seen and examined at bedside this morning. Patient was awake, alert, and following commands. Tracheostomy tube, NG tube, anthony, R-IJ, ostomy bag, RUSSELL drain, and shiley catheter is in place. Patient is off pressors and sedation. Current vent settings: PS PEEP 5 and O2 30%. Vital signs stable. Afebrile overnight. ROS not obtained due to patient's condition and poor capacity. No adverse overnight events. Spoke to family welfare social work professor this morning (Kya) and patient is still pending acceptance from [facility]. CCU Objective - Vital Signs / Intake & Output Vital Signs (Last 4 hours): Vital Signs Resp Pulse Ox 09/14/18 07:31 26 H 99 Intake and Output (Last 8hrs): Intake & Output 09/13/18 09/14/18 09/14/18 22:59 06:59 14:59 Intake Total 600 530 Output Total 1020 810 Balance -420 -280 Weight 68.946 kg Intake: IV 225 50 Right Internal Jugular 225 50 Tube Feeding 480 Blood Product 375 Output: Drainage 70 10 Colostomy 70 10 Urine 450 Urethral (Anthony) 450 Stool 500 750 Other 50 - Physical Exam Head: Positive for: Atraumatic, Normocephalic, Other (R-IJ in place. ) Pupils: Positive for: Sluggish Extroacular Muscles: Positive for: EOMI Conjunctiva: Positive for: Normal Mouth: Positive for: Moist Mucous Membranes Pharnyx: Positive for: Normal Nose (External): Positive for: Other (NG tube in place) Neck: Positive for: Other (Tracheostomy tube in place). Negative for: JVD, Lymphadenopathy, Bruit Respiratory/Chest: Positive for: Clear to Auscultation. Negative for: Respiratory Distress, Accessory Muscle Use, Wheezes, Rales, Rhonchi Cardiovascular: Positive for: Regular Rate and Rhythm, Peripheal Pulses Present Abdomen: Positive for: Normal Bowel Sounds, Other ( Colostomy bag in place, diarrhea noted. RUSSELL drain in place. ). Negative for: Tenderness, Distention, Peritoneal Signs, Rebound, Mass/Organomegaly Genitourinary Male: Positive for: Other (Anthony in place. Shiley catheter in the R-groin. ) Upper Extremity: Positive for: NORMAL PULSES. Negative for: Edema Lower Extremity: Positive for: NORMAL PULSES. Negative for: Edema, CALF TENDERNESS Skin: Positive for: Warm, Dry, Normal Color, Other (Grossly edematous/anasarca ) Psychiatric: Positive for: Alert. Negative for: Oriented x 3 - Medications Active Medications: Active Medications Generic Name Dose Route Start Last Admin Trade Name Freq PRN Reason Stop Dose Admin Acetylcysteine 4 ml 09/02/18 08:00 09/04/18 20:05 Acetylcysteine 20% IH Not Given [id number] Albumin Human 12.5 gm 09/13/18 12:00 09/14/18 05:27 Albumin Human 25% (12.5 Gm/50 Ml) IV 09/14/18 12:01 12.5 gm Q6H KD Administration Albumin Human 12.5 gm 09/13/18 11:10 Albumin Human 25% (12.5 Gm/50 Ml) IV 09/18/18 11:11 DAILY PRN LOW BP DURING HD X 3 DOSES Aspirin 81 mg 09/05/18 11:30 09/13/18 09:32 Aspirin Chewable PO 81 mg DAILY KD Administration Budesonide 0.5 mg 08/13/18 08:00 09/14/18 07:21 Pulmicort Respules IH 0.5 mg [id number] KD Administration Calcium Acetate 667 mg 09/10/18 10:00 09/13/18 18:10 Phoslo GT 667 mg TID KD Administration Dextrose 0 ml 09/05/18 15:56 Dextrose 50% Inj IV STAT PRN Hypoglycemia Protocol Protocol Emollient Ointment 5 gm 09/12/18 16:56 Vaseline Oint TOP PRN PRN Dry skin Famotidine 20 mg 08/21/18 10:00 09/13/18 09:11 Pepcid PO 20 mg DAILY KD Administration Furosemide 20 mg 09/13/18 14:00 09/13/18 14:58 Lasix IV Not Given 0800,1400 KD Heparin Sodium (Porcine) 5,000 units 09/08/18 14:00 09/14/18 05:29 Heparin SC 5,000 units Q8 KD Administration Protocol Heparin Sodium (Porcine) 5,000 units 09/10/18 11:57 Heparin IV POSTDI PRN CATH PROPH Hydralazine HCl 10 mg 09/12/18 09:22 Apresoline PO QID PRN for sbp>170 Hydrocortisone Sodium Succinate 25 mg 09/13/18 10:19 09/13/18 21:56 Solu-Cortef IVP 25 mg Q12H KD Administration Insulin Human Regular 0 units 09/03/18 12:00 09/14/18 08:57 Humulin R Low SC Not Given Q6 [facility] Protocol Levalbuterol HCl 0.63 mg 08/18/18 08:00 09/14/18 07:21 Xopenex IH 0.63 mg [id number] KD Administration Verapamil HCl 40 mg 09/08/18 18:15 09/14/18 01:55 Calan Tab PO 40 mg Q8H KD Administration Verapamil HCl 2.5 mg 09/11/18 09:42 Verapamil Inj IVP Q6H PRN for heart rate >130 - Patient Studies Lab Studies: Lab Studies 09/14/18 09/14/18 09/14/18 Range/Units 06:45 06:45 05:35 WBC 12.8 H (4.5-11.0) 10^3/uL RBC 3.26 L (3.5-6.1) 10^6/uL Hgb 10.0 L (14.0-18.0) g/dL Hct 29.7 L (42.0-52.0) % MCV 91.1 (80.0-105.0) fl MCH 30.7 (25.0-35.0) pg MCHC 33.7 (31.0-37.0) g/dl RDW 20.6 H (11.5-14.5) % Plt Count 108 L (120.0-450.0) 10^3/uL MPV 10.9 (7.0-11.0) fl Sodium 135 (132-148) mmol/L Potassium 3.5 L (3.6-5.0) mmol/L Chloride 103 (98-107) mmol/L Carbon Dioxide 21 (21-33) mmol/L Anion Gap 15 (10-20) BUN 94 H (7-21) mg/dL Creatinine 1.8 H (0.8-1.5) mg/dl Est GFR ( Amer) 44 Est GFR (Non-Af Amer) 36 POC Glucose (mg/dL) 135 H (65-110) mg/dL Random Glucose 167 H (70-110) mg/dL Calcium 7.5 L (8.4-10.5) mg/dL Phosphorus 5.6 H (2.5-4.5) mg/dL Magnesium 2.2 (1.7-2.2) mg/dL Total Bilirubin 5.6 H (0.2-1.3) mg/dL AST 80 H D (17-59) U/L ALT 85 H (7-56) U/L Alkaline Phosphatase 92 (38-126) U/L Total Protein 4.5 L (5.8-8.3) g/dL Albumin 2.4 L (3.0-4.8) g/dL Globulin 2.1 gm/dL Albumin/Globulin Ratio 1.2 (1.1-1.8) Stool Occult Blood (NEGATIVE) Blood Type Antibody Screen Crossmatch Reaction Pathol Review BBK History Checked 09/13/18 09/13/18 09/13/18 Range/Units 23:09 18:22 11:35 WBC (4.5-11.0) 10^3/uL RBC (3.5-6.1) 10^6/uL Hgb (14.0-18.0) g/dL Hct (42.0-52.0) % MCV (80.0-105.0) fl MCH (25.0-35.0) pg MCHC (31.0-37.0) g/dl RDW (11.5-14.5) % Plt Count (120.0-450.0) 10^3/uL MPV (7.0-11.0) fl Sodium (132-148) mmol/L Potassium (3.6-5.0) mmol/L Chloride (98-107) mmol/L Carbon Dioxide (21-33) mmol/L Anion Gap (10-20) BUN (7-21) mg/dL Creatinine (0.8-1.5) mg/dl Est GFR ( Amer) Est GFR (Non-Af Amer) POC Glucose (mg/dL) 141 H 142 H (65-110) mg/dL Random Glucose (70-110) mg/dL Calcium (8.4-10.5) mg/dL Phosphorus (2.5-4.5) mg/dL Magnesium (1.7-2.2) mg/dL Total Bilirubin (0.2-1.3) mg/dL AST (17-59) U/L ALT (7-56) U/L Alkaline Phosphatase (38-126) U/L Total Protein (5.8-8.3) g/dL Albumin (3.0-4.8) g/dL Globulin gm/dL Albumin/Globulin Ratio (1.1-1.8) Stool Occult Blood (NEGATIVE) Blood Type O POSITIVE Antibody Screen Negative Crossmatch See Detail Reaction Pathol Review BBK History Checked Patient has bt 09/13/18 09/13/18 08/30/18 Range/Units 11:10 11:09 16:34 WBC (4.5-11.0) 10^3/uL RBC (3.5-6.1) 10^6/uL Hgb (14.0-18.0) g/dL Hct (42.0-52.0) % MCV (80.0-105.0) fl MCH (25.0-35.0) pg MCHC (31.0-37.0) g/dl RDW (11.5-14.5) % Plt Count (120.0-450.0) 10^3/uL MPV (7.0-11.0) fl Sodium (132-148) mmol/L Potassium (3.6-5.0) mmol/L Chloride (98-107) mmol/L Carbon Dioxide (21-33) mmol/L Anion Gap (10-20) BUN (7-21) mg/dL Creatinine (0.8-1.5) mg/dl Est GFR ( Amer) Est GFR (Non-Af Amer) POC Glucose (mg/dL) 217 H (65-110) mg/dL Random Glucose (70-110) mg/dL Calcium (8.4-10.5) mg/dL Phosphorus (2.5-4.5) mg/dL Magnesium (1.7-2.2) mg/dL Total Bilirubin (0.2-1.3) mg/dL AST (17-59) U/L ALT (7-56) U/L Alkaline Phosphatase (38-126) U/L Total Protein (5.8-8.3) g/dL Albumin (3.0-4.8) g/dL Globulin gm/dL Albumin/Globulin Ratio (1.1-1.8) Stool Occult Blood Positive H (NEGATIVE) Blood Type Antibody Screen Crossmatch Reaction Pathol Review BBK History Checked Laboratory Results - last 24 hr 08/30/18 09/13/18 09/13/18 16:34 11:09 11:10 WBC RBC Hgb Hct MCV MCH MCHC RDW Plt Count MPV Sodium Potassium Chloride Carbon Dioxide Anion Gap BUN Creatinine Est GFR ( Amer) Est GFR (Non-Af Amer) POC Glucose (mg/dL) 217 H Random Glucose Calcium Phosphorus Magnesium Total Bilirubin AST ALT Alkaline Phosphatase Total Protein Albumin Globulin Albumin/Globulin Ratio Stool Occult Blood Positive H Blood Type Antibody Screen Crossmatch Reaction Pathol Review BBK History Checked 09/13/18 09/13/18 09/13/18 11:35 18:22 23:09 WBC RBC Hgb Hct MCV MCH MCHC RDW Plt Count MPV Sodium Potassium Chloride Carbon Dioxide Anion Gap BUN Creatinine Est GFR ( Amer) Est GFR (Non-Af Amer) POC Glucose (mg/dL) 142 H 141 H Random Glucose Calcium Phosphorus Magnesium Total Bilirubin AST ALT Alkaline Phosphatase Total Protein Albumin Globulin Albumin/Globulin Ratio Stool Occult Blood Blood Type O POSITIVE Antibody Screen Negative Crossmatch See Detail Reaction Pathol Review BBK History Checked Patient has bt 09/14/18 09/14/18 09/14/18 05:35 06:45 06:45 WBC 12.8 H RBC 3.26 L Hgb 10.0 L Hct 29.7 L MCV 91.1 MCH 30.7 MCHC 33.7 RDW 20.6 H Plt Count 108 L MPV 10.9 Sodium 135 Potassium 3.5 L Chloride 103 Carbon Dioxide 21 Anion Gap 15 BUN 94 H Creatinine 1.8 H Est GFR ( Amer) 44 Est GFR (Non-Af Amer) 36 POC Glucose (mg/dL) 135 H Random Glucose 167 H Calcium 7.5 L Phosphorus 5.6 H Magnesium 2.2 Total Bilirubin 5.6 H AST 80 H D ALT 85 H Alkaline Phosphatase 92 Total Protein 4.5 L Albumin 2.4 L Globulin 2.1 Albumin/Globulin Ratio 1.2 Stool Occult Blood Blood Type Antibody Screen Crossmatch Reaction Pathol Review BBK History Checked Fingerstick Blood Sugar Results: 75 Review of Systems - Review of Systems Systems not reviewed;Unavailable: Other (Poor capacity) Critical Care Progress Note - Vent Settings MODE:: PRESSURE SUPPORT FIO2:: 30 PEEP:: 5 - Extremities/Vascular Does the Patient have a Central Venous Catheter?: Yes Insertion Site: Internal Jugular Vein Does the Patient need a Central Venous Catheter?: Yes Does the Patient have a Anthony Catheter?: Yes Does the Patient need a Anthony Catheter?: Yes Catheter Insertion Criteria: Need for accurate measurement of output in cr itically ill patient - Prophylaxis GI Prophylaxis GI: Pepsid - Prophylaxis DVT Prophylaxis DVT: Heparin SQ - Nutrition Nutrition: Nutrition Category Date Time Status NPO Diet [DIET] Diets 09/02/18 Lunch Ordered Assessment/Plan - Assessment and Plan (Free Text) Assessment: Patient is a 82 y/o male 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 Patient is also s/p tracheostomy tube placement. Patient also had worsening renal failure with uremia - requiring dialysis. Patient is pending placement for an LTACH facility. Overall, patient's prognosis is poor. Plan: Neuro: - Patient is off sedation; alert, awake, and following commands - Afebrile overnight; maintain normothermia Pulm: - Tracheostomy tube on Pressure Support: PEEP 5 and FiO2 30% - taper steroids - CXR (09/14): no interval change - Patient is s/p tracheostomy tube (09/07) - s/p elective brochoscopy (09/02) - c/w steroids, xopenex, pulmicort - Pulmonology is following, recs appreciated - Maintain SaO2 > 90% - Hx recurrent L-lung atelectasis and mucus plugging s/p bronchoscopy x3 - Hx of COPD and smoking Cardio: - Pressors were discontinued - Cardio started patient on lasix 20mg IVP q12 - c/w verapamil - Cario is following, recs appreciated - Maintain MAP > 65 - Hx of Afib - rate controlled - Hx of HTN and endovascular repair of AAA GI: - Patient is on enteric feeds via NG tube - CT Abd/Pelvis (09/09): consistent with enteritis and non-obstructing nephrolithiasis. No perforation or pneumatosis intestinalis. - Ostomy bag in tact - diarrhea - Hx Rectal cancer s/p total colectomy - s/p villous adenoma of the cecum excision complicated with viscus rupture and ex-lap and peritonitis - Surgery is on board. Recs appreciated Renal: - Patient has anasarca; last dialysis session, 1 L removed. Patient not tolerating dialysis due to hypotension. Patient will not be receiving dialysis at this time. - on IV albumin - BUN/Cr is uptrending - Ins/outs; net -700 mL in the past 24 hours - s/p shiley catheter for HD (09/09) due to uremia - Nephrology is on consult. Recs appreciated Heme: - Hgb 10 - stable, s/p x1 pRBC yesterday afternoon - No signs of active bleeding at this time - Continue to monitor ID: - Patient is being monitored off antibiotics. - Afebrile, leukocytosis improved - ID is on board. Recs appreciated - VRE+ Endo: - Maintain euglycemia - ISS - low Prophylaxis: - DVT ppx: SCD, Hep SC - GI ppx: pepcid Palliative care is on board. Dispo: Overall prognosis is poor. Pending placement for LTACH facility. Will follow up with social work and career services representative in regards to placement. Case was discussed and reviewed with Attending Physician, Dr. Cochran <Lev Cochran - Last Filed: 09/14/18 11:40> CCU Objective - Vital Signs / Intake & Output Intake and Output (Last 8hrs): Intake & Output 09/13/18 09/14/18 09/14/18 22:59 06:59 14:59 Intake Total 600 530 Output Total 1020 810 Balance -420 -280 Weight 152 lb Intake: IV 225 50 Right Internal Jugular 225 50 Tube Feeding 480 Blood Product 375 Output: Drainage 70 10 Colostomy 70 10 Urine 450 Urethral (Anthony) 450 Stool 500 750 Other 50 - Medications Active Medications: Active Medications Generic Name Dose Route Start Last Admin Trade Name Freq PRN Reason Stop Dose Admin Acetylcysteine 4 ml 09/02/18 08:00 09/04/18 20:05 Acetylcysteine 20% IH Not Given [id number] [facility] Albumin Human 12.5 gm 09/13/18 12:00 09/14/18 05:27 Albumin Human 25% (12.5 Gm/50 Ml) IV 09/14/18 12:01 12.5 gm Q6H KD Administration Albumin Human 12.5 gm 09/13/18 11:10 Albumin Human 25% (12.5 Gm/50 Ml) IV 09/18/18 11:11 DAILY PRN LOW BP DURING HD X 3 DOSES Aspirin 81 mg 09/05/18 11:30 09/13/18 09:32 Aspirin Chewable PO 81 mg DAILY KD Administration Budesonide 0.5 mg 08/13/18 08:00 09/14/18 07:21 Pulmicort Respules IH 0.5 mg [id number] KD Administration Calcium Acetate 667 mg 09/10/18 10:00 09/13/18 18:10 Phoslo GT 667 mg TID KD Administration Dextrose 0 ml 09/05/18 15:56 Dextrose 50% Inj IV STAT PRN Hypoglycemia Protocol Protocol Emollient Ointment 5 gm 09/12/18 16:56 Vaseline Oint TOP PRN PRN Dry skin Famotidine 20 mg 08/21/18 10:00 09/13/18 09:11 Pepcid PO 20 mg DAILY KD Administration Furosemide 20 mg 09/13/18 14:00 09/13/18 14:58 Lasix IV Not Given 0800,1400 [facility] Heparin Sodium (Porcine) 5,000 units 09/08/18 14:00 09/14/18 05:29 Heparin SC 5,000 units Q8 KD Administration Protocol Heparin Sodium (Porcine) 5,000 units 09/10/18 11:57 Heparin IV POSTDI PRN CATH PROPH Hydralazine HCl 10 mg 09/12/18 09:22 Apresoline PO QID PRN for sbp>170 Hydrocortisone Sodium Succinate 25 mg 09/13/18 10:19 09/13/18 21:56 Solu-Cortef IVP 25 mg Q12H KD Administration Insulin Human Regular 0 units 09/03/18 12:00 09/14/18 08:57 Humulin R Low SC Not Given Q6 KD Protocol Levalbuterol HCl 0.63 mg 08/18/18 08:00 09/14/18 07:21 Xopenex IH 0.63 mg [id number] KD Administration Verapamil HCl 40 mg 09/08/18 18:15 09/14/18 01:55 Calan Tab PO 40 mg Q8H KD Administration Verapamil HCl 2.5 mg 09/11/18 09:42 Verapamil Inj IVP Q6H PRN for heart rate >130 - Patient Studies Lab Studies: Lab Studies 09/14/18 09/14/18 09/14/18 Range/Units 06:45 06:45 05:35 WBC 12.8 H (4.5-11.0) 10^3/uL RBC 3.26 L (3.5-6.1) 10^6/uL Hgb 10.0 L (14.0-18.0) g/dL Hct 29.7 L (42.0-52.0) % MCV 91.1 (80.0-105.0) fl MCH 30.7 (25.0-35.0) pg MCHC 33.7 (31.0-37.0) g/dl RDW 20.6 H (11.5-14.5) % Plt Count 108 L (120.0-450.0) 10^3/uL MPV 10.9 (7.0-11.0) fl Sodium 135 (132-148) mmol/L Potassium 3.5 L (3.6-5.0) mmol/L Chloride 103 (98-107) mmol/L Carbon Dioxide 21 (21-33) mmol/L Anion Gap 15 (10-20) BUN 94 H (7-21) mg/dL Creatinine 1.8 H (0.8-1.5) mg/dl Est GFR ( Amer) 44 Est GFR (Non-Af Amer) 36 POC Glucose (mg/dL) 135 H (65-110) mg/dL Random Glucose 167 H (70-110) mg/dL Calcium 7.5 L (8.4-10.5) mg/dL Phosphorus 5.6 H (2.5-4.5) mg/dL Magnesium 2.2 (1.7-2.2) mg/dL Total Bilirubin 5.6 H (0.2-1.3) mg/dL AST 80 H D (17-59) U/L ALT 85 H (7-56) U/L Alkaline Phosphatase 92 (38-126) U/L Total Protein 4.5 L (5.8-8.3) g/dL Albumin 2.4 L (3.0-4.8) g/dL Globulin 2.1 gm/dL Albumin/Globulin Ratio 1.2 (1.1-1.8) Blood Type Antibody Screen Crossmatch Reaction Pathol Review BBK History Checked 09/13/18 09/13/18 09/13/18 Range/Units 23:09 18:22 11:35 WBC (4.5-11.0) 10^3/uL RBC (3.5-6.1) 10^6/uL Hgb (14.0-18.0) g/dL Hct (42.0-52.0) % MCV (80.0-105.0) fl MCH (25.0-35.0) pg MCHC (31.0-37.0) g/dl RDW (11.5-14.5) % Plt Count (120.0-450.0) 10^3/uL MPV (7.0-11.0) fl Sodium (132-148) mmol/L Potassium (3.6-5.0) mmol/L Chloride (98-107) mmol/L Carbon Dioxide (21-33) mmol/L Anion Gap (10-20) BUN (7-21) mg/dL Creatinine (0.8-1.5) mg/dl Est GFR ( Amer) Est GFR (Non-Af Amer) POC Glucose (mg/dL) 141 H 142 H (65-110) mg/dL Random Glucose (70-110) mg/dL Calcium (8.4-10.5) mg/dL Phosphorus (2.5-4.5) mg/dL Magnesium (1.7-2.2) mg/dL Total Bilirubin (0.2-1.3) mg/dL AST (17-59) U/L ALT (7-56) U/L Alkaline Phosphatase (38-126) U/L Total Protein (5.8-8.3) g/dL Albumin (3.0-4.8) g/dL Globulin gm/dL Albumin/Globulin Ratio (1.1-1.8) Blood Type O POSITIVE Antibody Screen Negative Crossmatch See Detail Reaction Pathol Review BBK History Checked Patient has bt 09/13/18 08/30/18 Range/Units 11:09 16:34 WBC (4.5-11.0) 10^3/uL RBC (3.5-6.1) 10^6/uL Hgb (14.0-18.0) g/dL Hct (42.0-52.0) % MCV (80.0-105.0) fl MCH (25.0-35.0) pg MCHC (31.0-37.0) g/dl RDW (11.5-14.5) % Plt Count (120.0-450.0) 10^3/uL MPV (7.0-11.0) fl Sodium (132-148) mmol/L Potassium (3.6-5.0) mmol/L Chloride (98-107) mmol/L Carbon Dioxide (21-33) mmol/L Anion Gap (10-20) BUN (7-21) mg/dL Creatinine (0.8-1.5) mg/dl Est GFR ( Amer) Est GFR (Non-Af Amer) POC Glucose (mg/dL) 217 H (65-110) mg/dL Random Glucose (70-110) mg/dL Calcium (8.4-10.5) mg/dL Phosphorus (2.5-4.5) mg/dL Magnesium (1.7-2.2) mg/dL Total Bilirubin (0.2-1.3) mg/dL AST (17-59) U/L ALT (7-56) U/L Alkaline Phosphatase (38-126) U/L Total Protein (5.8-8.3) g/dL Albumin (3.0-4.8) g/dL Globulin gm/dL Albumin/Globulin Ratio (1.1-1.8) Blood Type Antibody Screen Crossmatch Reaction Pathol Review BBK History Checked Laboratory Results - last 24 hr 08/30/18 09/13/18 09/13/18 16:34 11:09 11:35 WBC RBC Hgb Hct MCV MCH MCHC RDW Plt Count MPV Sodium Potassium Chloride Carbon Dioxide Anion Gap BUN Creatinine Est GFR ( Amer) Est GFR (Non-Af Amer) POC Glucose (mg/dL) 217 H Random Glucose Calcium Phosphorus Magnesium Total Bilirubin AST ALT Alkaline Phosphatase Total Protein Albumin Globulin Albumin/Globulin Ratio Blood Type O POSITIVE Antibody Screen Negative Crossmatch See Detail Reaction Pathol Review BBK History Checked Patient has bt 09/13/18 09/13/18 09/14/18 18:22 23:09 05:35 WBC RBC Hgb Hct MCV MCH MCHC RDW Plt Count MPV Sodium Potassium Chloride Carbon Dioxide Anion Gap BUN Creatinine Est GFR ( Amer) Est GFR (Non-Af Amer) POC Glucose (mg/dL) 142 H 141 H 135 H Random Glucose Calcium Phosphorus Magnesium Total Bilirubin AST ALT Alkaline Phosphatase Total Protein Albumin Globulin Albumin/Globulin Ratio Blood Type Antibody Screen Crossmatch Reaction Pathol Review BBK History Checked 09/14/18 09/14/18 06:45 06:45 WBC 12.8 H RBC 3.26 L Hgb 10.0 L Hct 29.7 L MCV 91.1 MCH 30.7 MCHC 33.7 RDW 20.6 H Plt Count 108 L MPV 10.9 Sodium 135 Potassium 3.5 L Chloride 103 Carbon Dioxide 21 Anion Gap 15 BUN 94 H Creatinine 1.8 H Est GFR ( Amer) 44 Est GFR (Non-Af Amer) 36 POC Glucose (mg/dL) Random Glucose 167 H Calcium 7.5 L Phosphorus 5.6 H Magnesium 2.2 Total Bilirubin 5.6 H AST 80 H D ALT 85 H Alkaline Phosphatase 92 Total Protein 4.5 L Albumin 2.4 L Globulin 2.1 Albumin/Globulin Ratio 1.2 Blood Type Antibody Screen Crossmatch Reaction Pathol Review BBK History Checked Critical Care Progress Note - Nutrition Nutrition: Nutrition Category Date Time Status NPO Diet [DIET] Diets 09/02/18 Lunch Ordered Assessment/Plan - Assessment and Plan (Free Text) Plan: Patient seen and examined on rounds with resident, agree with note with following additions/exceptions: Patient is 82yo male with PMHx of severe COPD, HTN, 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 Cultures from 09/06 negative, on abx as per ID Currently not on HD, renal following Vent dependent, has failed multiple weaning trials. Will attempt another CPAP trial today. Severe COPD HTN Respiratory failure s/p tracheostomy s/p ex-lap and ileal perforation VRE sepsis Renal failure/volume overload on HD Recommend: - cont with low tidal vol ventilation, duonebs PRN, goal sat 90% - chest PT, frequent suctioning, Pulmicort, follow up Pulm - Antibiotics as per ID - BP control - follow up renal - monitor renal function - monitor platelets - follow up Palliative care - GI ppx - DVT ppx, HSQ - Monitor in MICU Family discussion Awaiting Ltach placement Poor prognosis
[2018-09-14] MEDS ORDERED: Potassium Chloride 20 mEq/15 ml LIQ UD PO STA (11:03)
[2018-09-14] MEDS: Petrolatum Oint Foilpak (5 gm) TOP PRN (11:40)
[2018-09-14] MEDS ORDERED: LIDOCAIN/EPI 1-0.001% 10ML INJ SOL IJ PRN (13:45)
--- NOTE | 2018-09-14 16:02 | PN ---
DATE: 09/14/2018 REASON FOR CONSULTATION: Followup, cardiac evaluation, followup for atrial fibrillation status post tracheostomy, intubated through the trach, status post abdominal surgery, multiorgan dysfunction, hypoproteinemia, severe protein-calorie malnutrition. SUBJECTIVE: The patient is responsive to verbal stimuli, open eye. Denies any chest pain. OBJECTIVE: GENERAL: Not in apparent distress. Being fed through the NG tube and on vent through the through the tracheostomy. VITAL SIGNS: Temperature afebrile, heart rate 100, blood pressure 120/70. HEENT: PERRLA, intact. NECK: Supple. No carotid bruit or thyromegaly. CHEST: Clear to auscultation. HEART: S1 and S2, regular. ABDOMEN: Soft. Colostomy in position, surgical sutures noted. LABORATORY DATA: Blood workup: WBC 12.3, hemoglobin 10, hematocrit 29.7, platelet count 108. Chemistries show sodium 135, potassium 3.5, chloride 103, carbon dioxide 21, anion gap of 15, BUN 19, creatinine 1.8. Total protein 4.5, albumin 2.4. IMPRESSION: Severe protein-calorie malnutrition; not present on admission, history of colostomy in the past, history of abdominal aortic aneurysm, endovascular repair, history of villous adenoma, status post resection right hemicolectomy. Hospital course is complicated with multiple times atelectasis and collapse of the left lung requiring bronchoscopy. Recently, the patient had tracheostomy done. History of bowel perforation, bowel resection, exploratory laparotomy. Started on dialysis, but did not tolerate. PLAN: To continue IV Lasix gentle as blood pressure tolerated. Continue IV albumin to increase more and increase more diuresis. In last 24 hours, the patient had almost 800 mL negative fluid balance, which is quite encouraging. We will continue 20 IV Lasix. Continue IV albumin and continue DVT prophylaxis. History of chronic atrial fibrillation and anticoagulation. Continue verapamil 2.5 every 6 hours p.r.n. Last dig level was 2. We will not give any dig p.r.n., avoid p.r.n. dig now because of large dig level of 2. Continue Lasix 20 twice and we will supplement potassium gentle only 20 mEq through the Dob[place]. Free water 200 mL every 6 hours continue and we will follow you. Thank you Dr. Du/Dr. Fleming for providing us the opportunity in taking care of the patient, Alexia Islas. Overall, the patient's condition is critical and long-term prognosis is extremely guarded. Discussed with Dr. Ramirez, drop wirer. I discussed with the nursing staff taking care of the patient. Gladis Greenfield MD
--- NOTE | 2018-09-14 16:22 | PN ---
DATE: 09/14/2018 SUBJECTIVE: The patient is in bed, in ICU 128, bed one. PHYSICAL EXAMINATION: GENERAL: He appears chronically ill and weak. VITAL SIGNS: With a temperature of 97, blood pressure is 130/50, respiratory rate of 18, heart rate of 96. HEENT: Unremarkable. NECK: The patient does have trach. LUNGS: Have decreased breath sounds. HEART: Normal S1 and S2. ABDOMEN: Soft. LABORATORY EXAMINATION: Reveals a white count of 12,800, hemoglobin of 10. Chemistries are noted and urinalysis is noted and. ASSESSMENT AND PLAN: An 82-year-old male with long hospital stay with severe sepsis secondary to perforated ileum, status post exploratory laparotomy with a tracheostomy, ventilator-dependent respiratory failure, had vancomycin-resistant Enterococcus and Reshma tropicalis from the wound culture, healthcare-associated pneumonia, history of rectal cancer, atrial fibrillation, coronary artery disease, chronic congestive heart failure, has completed ten-day course of meropenem and seven-day course of daptomycin. Currently, the patient is off of antibiotics, afebrile. The patient is at risk for developing nosocomial infections. Review of orders reveals the patient to be off of antibiotics. Jason Garvin MD
[2018-09-15] MEDS: Insulin Reg-LOW-Coverage SC SCH ×3 (00:20→12:44)
[2018-09-15] MEDS: Levalbuterol 0.63 MG/3 ML Inhal Soln UD IH SCH ×3 (01:30→13:30)
--- NOTE | 2018-09-15 05:20 | OP ---
PROCEDURE DATE: 09/07/2018 PREOPERATIVE DIAGNOSES 1. Chronic respiratory embarrassment with airway occlusion. 2. Severe sepsis - presumptive central line. 3. Marasmus secondary to vancomycin-resistant Enterococcus peritonitis. POSTOPERATIVE DIAGNOSES 1. Chronic respiratory embarrassment with airway occlusion. 2. Severe sepsis - presumptive central line. 3. Marasmus secondary to vancomycin-resistant Enterococcus peritonitis. PROCEDURE 1. Insertion of a #8 Shiley cuffed tracheostomy tube. 2. Removal of a dual-lumen peripherally inserted central catheter line (left arm). 3. Insertion of a right internal jugular triple-lumen catheter. SURGEON: Rocael Du MD GOLDSMITH APPRENTICE: Oskar Mittal DO, PGY-2 ANESTHESIA: IV sedation. ANESTHESIOLOGIST: Jeremy Campbell MD OPERATIVE INDICATIONS: The patient is an 82-year-old male who has been in the hospital for the past for the 4-1/2 weeks, has developed multiple episodes of sepsis including VRE peritonitis and recently septic shock with a temperature of 102.8 for the first time during the entire hospital stay. The patient's lines have been removed with one last central line, a left basilic PICC line, will be removed now. The patient will have a tracheostomy tube inserted for management of his secretions. These secretions have obstructed his left mainstem bronchus four different times during his postoperative period requiring intubation and bronchoscopy, each time the patient was able to be extubated after the bronchoscopic procedure and has been doing well until this recent septic episode where the blood cultures are now negative and the abdominal fluid cultures are also negative. Of significant note is that the fact that this patient has had ITP over the past recent few years with platelet counts running from 40,000-90,000 and each time he has had surgery platelet transfusions have been utilized. This discussion was held with the patient and with the patient's son, who acts as power of sports attorney and signs the informed consent. OPERATIVE NOTE: The patient was brought from the ICU to the operating room. He is transferred from the [facility] to the operating table and is given intravenous sedation and oxygenation monitoring by the anesthesiologist using the endotracheal tube in place after the last bronchoscopy for ventilation. The anterior neck is prepped with Hibiclens chlorhexidine preparation and aseptically draped. The shoulders had been elevated on the bolster pillow and the area over the suprasternal notch was infiltrated with bupivacaine 0.5% plain and transverse incision made through the skin and the investing fascia. Hemostasis was contained with cautery and the midline strap muscles were retracted and the trachea cleared in the operative field, elevated on a Trach hook and the second ring visualized and the trachea opened and a #8 Shiley inserted and the endotracheal tube was removed. Cultures were taken of the sputum at this point, and the balloon was inflated, ventilated by the anesthesiologist. The skin was closed with 2-0 silks interrupted sutures securing the tracheostomy to the skin and a Justin tracheostomy mccain was applied. Attention was drawn to the left arm where the dual-lumen PICC was in place and this will be removed shortly after the triple-lumen catheter is inserted in the right neck with the ultrasound-guided probe. Once this was performed, the catheter is flushed with heparinized saline, attached to the anesthesiologist's intravenous control set up and the catheter secured with 3-0 silk suture and a dressing applied. At this point, the PICC line was removed and pressure maintained for 5 minutes. The patient is now transferred back to the intensive care unit remaining on the ventilator at this point. Estimated blood loss during this procedure was less than 5-10 ml of blood. Sponge, instrument and suture count were verified as correct at the end of the procedure. This dictation will be electronically signed without being read. Rocael Du MD
[2018-09-15 06:04] LABS: ARTERIAL BLOOD GAS HCO3 17.9 mmol/L (21-28); ARTERIAL BLOOD GAS O2 CAPACITY 15.1 mL/dl (16-24); ARTERIAL BLOOD GAS O2 SAT 99.3 % (95-98); ARTERIAL BLOOD GAS PCO2 24 mm/Hg (35-45); ARTERIAL BLOOD GAS PH 7.48 (7.35-7.45); ARTERIAL BLOOD GAS TCO2 18.6 mmol.L (22-28)
[2018-09-15 07:19] LABS: MEAN CELL VOLUME 92.1 fl (80.0-105.0); MEAN CORPUSCULAR HEMOGLOBIN 30.9 pg (25.0-35.0); MEAN CORPUSCULAR HGB CONC 33.5 g/dl (31.0-37.0); MEAN PLATELET VOLUME 11.4 fl (7.0-11.0); RBC 3.92 10^6/uL (3.5-6.1); RED CELL DISTRIBUTION WIDTH 21.9 % (11.5-14.5)
[2018-09-15 07:22] LABS: HEMOGLOBIN 12.1 g/dL (14.0-18.0)
[2018-09-15 07:24] LABS: ALB/GLOB RATIO 1.2 (1.1-1.8); ALBUMIN 2.6 g/dL (3.0-4.8); CALCIUM 7.9 mg/dL (8.4-10.5)
[2018-09-15] MEDS: Budesonide 0.5 mg/2 ml Inhal Susp UD IH SCH (07:37)
[2018-09-15 07:38] VITALS: RESP 30
--- NOTE | 2018-09-15 08:06 | CP.PCM.PCO ---
Physician Communication Note - Physician Communication Note Physician Communication Note: Plan ? LTACH transfer when accepted
--- NOTE | 2018-09-15 08:41 | CP.CCUPN ---
<Godfrey Lehman - Last Filed: 09/15/18 10:12> CCU Subjective - Physician Review Subjective (Free Text): Godfrey Lehman, PGY1 ICU Progress Note for Dr. Cochran Patient was seen and examined at bedside this morning. Yesterday, RUSSELL drain was removed by surgical team. Tracheostomy tube, NG tube, anthony, R-IJ, ostomy bag, and shiley catheter is in place. Patient is off pressors and sedation. He is awake, alert, following commands briefly. Although he is unable to verbalize, patient occasionally grimaces in pain. Currently has trach in place: PRVC 400/20/5/30%. ROS not obtained due to patient's condition and poor capacity. No adverse overnight events. As per social work, patient pending possible transfer to [facility] today. CCU Objective - Vital Signs / Intake & Output Vital Signs (Last 4 hours): Vital Signs Resp Pulse Ox 09/15/18 07:38 30 H 100 Intake and Output (Last 8hrs): Intake & Output 09/14/18 09/15/18 09/15/18 22:59 06:59 14:59 Intake Total 580 Output Total 1575 Balance -995 Intake: Tube Feeding 480 Albumin 100 Output: Drainage 455 Colostomy 450 Right Abdomen 5 Urine 670 Urethral (Anthony) 670 Stool 450 - Physical Exam Head: Positive for: Atraumatic, Normocephalic, Other (R-IJ in place. ) Pupils: Positive for: Sluggish Extroacular Muscles: Positive for: EOMI Conjunctiva: Positive for: Normal Mouth: Positive for: Moist Mucous Membranes Pharnyx: Positive for: Normal Nose (External): Positive for: Other (NG tube in place. On tube feeds) Neck: Positive for: Other (Tracheostomy tube in place. R-IJ in place.). Negative for: JVD, Lymphadenopathy, Bruit Respiratory/Chest: Positive for: Clear to Auscultation. Negative for: Respiratory Distress, Accessory Muscle Use, Wheezes, Rales, Rhonchi Cardiovascular: Positive for: Regular Rate and Rhythm, Peripheal Pulses Present Abdomen: Positive for: Normal Bowel Sounds, Other ( Colostomy bag in place, diarrhea noted. ). Negative for: Tenderness, Distention, Peritoneal Signs, Rebound, Mass/Organomegaly Genitourinary Male: Positive for: Other (Anthony in place. Shiley catheter in the R-groin. ) Upper Extremity: Positive for: NORMAL PULSES. Negative for: Edema Lower Extremity: Positive for: NORMAL PULSES. Negative for: Edema, CALF TENDERNESS Skin: Positive for: Warm, Dry, Normal Color, Other (Grossly edematous/anasarca ) Psychiatric: Positive for: Alert. Negative for: Oriented x 3 - Medications Active Medications: Active Medications Generic Name Dose Route Start Last Admin Trade Name Freq PRN Reason Stop Dose Admin Acetylcysteine 4 ml 09/02/18 08:00 09/04/18 20:05 Acetylcysteine 20% IH Not Given [id number] Albumin Human 12.5 gm 09/13/18 11:10 Albumin Human 25% (12.5 Gm/50 Ml) IV 09/18/18 11:11 DAILY PRN LOW BP DURING HD X 3 DOSES Aspirin 81 mg 09/05/18 11:30 09/14/18 10:53 Aspirin Chewable PO 81 mg DAILY KD Administration Budesonide 0.5 mg 08/13/18 08:00 09/15/18 07:37 Pulmicort Respules IH 0.5 mg [id number] KD Administration Calcium Acetate 667 mg 09/10/18 10:00 09/14/18 17:29 Phoslo GT 667 mg TID KD Administration Dextrose 0 ml 09/05/18 15:56 Dextrose 50% Inj IV STAT PRN Hypoglycemia Protocol Protocol Emollient Ointment 5 gm 09/12/18 16:56 09/14/18 11:40 Vaseline Oint TOP 5 gm PRN PRN Administration Dry skin Famotidine 20 mg 08/21/18 10:00 09/14/18 11:00 Pepcid PO 20 mg DAILY KD Administration Furosemide 20 mg 09/13/18 14:00 09/14/18 17:22 Lasix IV 20 mg 0800,1400 KD Administration Heparin Sodium (Porcine) 5,000 units 09/08/18 14:00 09/15/18 06:52 Heparin SC 5,000 units Q8 KD Administration Protocol Heparin Sodium (Porcine) 5,000 units 09/10/18 11:57 Heparin IV POSTDI PRN CATH PROPH Hydralazine HCl 10 mg 09/12/18 09:22 Apresoline PO QID PRN for sbp>170 Insulin Human Regular 0 units 09/03/18 12:00 09/15/18 07:04 Humulin R Low SC Not Given Q6 [facility] Protocol Levalbuterol HCl 0.63 mg 08/18/18 08:00 09/15/18 07:37 Xopenex IH 0.63 mg [id number] KD Administration Verapamil HCl 40 mg 09/08/18 18:15 09/15/18 02:00 Calan Tab PO 40 mg Q8H KD Administration Verapamil HCl 2.5 mg 09/11/18 09:42 Verapamil Inj IVP Q6H PRN for heart rate >130 - Patient Studies Lab Studies: Lab Studies 09/15/18 09/15/18 09/15/18 Range/Units 06:00 06:00 05:35 WBC 14.0 H (4.5-11.0) 10^3/uL RBC 3.92 (3.5-6.1) 10^6/uL Hgb 12.1 L D (14.0-18.0) g/dL Hct 36.1 L (42.0-52.0) % MCV 92.1 (80.0-105.0) fl MCH 30.9 (25.0-35.0) pg MCHC 33.5 (31.0-37.0) g/dl RDW 21.9 H (11.5-14.5) % Plt Count 162 (120.0-450.0) 10^3/uL MPV 11.4 H (7.0-11.0) fl pCO2 24 L (35-45) mm/Hg pO2 100.0 (80-100) mm/Hg HCO3 17.9 L (21-28) mmol/L ABG pH 7.48 H (7.35-7.45) ABG Total CO2 18.6 L (22-28) mmol.L ABG O2 Saturation 99.3 H (95-98) % ABG O2 Content 15.0 (15-23) ML/dl ABG Base Excess -4.3 L (-2.0-3.0) mmol/L ABG Hemoglobin 11.0 L (11.7-17.4) g/dL ABG Carboxyhemoglobin 2.2 H (0.5-1.5) % POC ABG HHb (Measured) 0.7 (0-5) % ABG Methemoglobin 1.1 (0.0-3.0) % ABG O2 Capacity 15.1 L (16-24) mL/dl Hgb O2 Saturation 96.0 (95.0-98.0) % FiO2 30.0 % Sodium 137 (132-148) mmol/L Potassium 3.8 (3.6-5.0) mmol/L Chloride 104 (98-107) mmol/L Carbon Dioxide 21 (21-33) mmol/L Anion Gap 16 (10-20) BUN 103 H (7-21) mg/dL Creatinine 1.9 H (0.8-1.5) mg/dl Est GFR ( Amer) 41 Est GFR (Non-Af Amer) 34 Random Glucose 134 H (70-110) mg/dL Calcium 7.9 L (8.4-10.5) mg/dL Total Bilirubin 9.4 H (0.2-1.3) mg/dL AST 109 H D (17-59) U/L ALT 114 H (7-56) U/L Alkaline Phosphatase 114 (38-126) U/L Total Protein 4.8 L (5.8-8.3) g/dL Albumin 2.6 L (3.0-4.8) g/dL Globulin 2.1 gm/dL Albumin/Globulin Ratio 1.2 (1.1-1.8) Laboratory Results - last 24 hr 09/15/18 09/15/18 09/15/18 05:35 06:00 06:00 WBC 14.0 H RBC 3.92 Hgb 12.1 L D Hct 36.1 L MCV 92.1 MCH 30.9 MCHC 33.5 RDW 21.9 H Plt Count 162 MPV 11.4 H pCO2 24 L pO2 100.0 HCO3 17.9 L ABG pH 7.48 H ABG Total CO2 18.6 L ABG O2 Saturation 99.3 H ABG O2 Content 15.0 ABG Base Excess -4.3 L ABG Hemoglobin 11.0 L ABG Carboxyhemoglobin 2.2 H POC ABG HHb (Measured) 0.7 ABG Methemoglobin 1.1 ABG O2 Capacity 15.1 L Hgb O2 Saturation 96.0 FiO2 30.0 Sodium 137 Potassium 3.8 Chloride 104 Carbon Dioxide 21 Anion Gap 16 BUN 103 H Creatinine 1.9 H Est GFR ( Amer) 41 Est GFR (Non-Af Amer) 34 Random Glucose 134 H Calcium 7.9 L Total Bilirubin 9.4 H AST 109 H D ALT 114 H Alkaline Phosphatase 114 Total Protein 4.8 L Albumin 2.6 L Globulin 2.1 Albumin/Globulin Ratio 1.2 Fingerstick Blood Sugar Results: 137 Review of Systems - Review of Systems Systems not reviewed;Unavailable: Other (Poor capacity) Critical Care Progress Note - Vent Settings MODE:: PRVC TIDAL VOLUME:: 400 RESP RATE:: 20 FIO2:: 30 PEEP:: 5 - Extremities/Vascular Does the Patient have a Central Venous Catheter?: Yes Insertion Site: Internal Jugular Vein Does the Patient need a Central Venous Catheter?: Yes Does the Patient have a Anthony Catheter?: Yes Does the Patient need a Anthony Catheter?: Yes Catheter Insertion Criteria: Patient requires prolonged immobilization - Prophylaxis GI Prophylaxis GI: Pepsid - Prophylaxis DVT Prophylaxis DVT: Heparin SQ - Nutrition Nutrition: Nutrition Category Date Time Status NPO Diet [DIET] Diets 09/02/18 Lunch Ordered Assessment/Plan - Assessment and Plan (Free Text) Assessment: Patient is a 82 y/o male 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 Patient is also s/p tracheostomy tube placement. Patient also had worsening renal failure with uremia - requiring dialysis. Patient will be going to an LTACH facility ([place]). Overall, patient's prognosis is poor. Plan: Neuro: - Patient is off sedation; alert, awake, and following commands - Afebrile overnight; maintain normothermia Pulm: - Tracheostomy tube in place. Currently on PRVC settings. - CXR (09/15): no interval change - Patient is s/p tracheostomy tube (09/07) - s/p elective brochoscopy (09/02) - c/w steroids, xopenex, pulmicort - Pulmonology is following, recs appreciated - Maintain SaO2 > 90% - Hx recurrent L-lung atelectasis and mucus plugging s/p bronchoscopy x3 - Hx of COPD and smoking Cardio: - c/w lasix 20mg IVP q12 as per cardio recs - c/w verapamil - Cario is following, recs appreciated - Maintain MAP > 65 - Hx of Afib - rate controlled - Hx of HTN and endovascular repair of AAA GI: - RUSSELL drain removed yesterday by surgical team - c/w enteric feeds via NG tube - CT Abd/Pelvis (09/09): consistent with enteritis and non-obstructing nephrolithiasis. No perforation or pneumatosis intestinalis. - Ostomy bag in tact - diarrhea - Hx Rectal cancer s/p total colectomy - s/p villous adenoma of the cecum excision complicated with viscus rupture and ex-lap and peritonitis - Surgery is on board. Recs appreciated Renal: - No more dialysis since patient has not been tolerating HD sessions due to hypotension - on IV albumin - BUN/Cr is uptrending - Ins/outs; net -1 L out in past 24 hours - s/p shiley catheter for HD (09/09) due to uremia - Nephrology is on consult. Recs appreciated Heme: - Hgb stable - No signs of active bleeding at this time - Continue to monitor ID: - Patient is being monitored off antibiotics. - Afebrile, leukocytosis improved - ID is on board. Recs appreciated - VRE+ Endo: - Maintain euglycemia - ISS - low Prophylaxis: - DVT ppx: SCD, Hep SC - GI ppx: pepcid Palliative care is on board. Dispo: Overall prognosis is poor. Patient was in pain today due to chronic medical issues, given morphine and versed. No acute interventions at this time. Planning for transfer to LTACH facility ([facility]) likely today; will discuss with social work. Case was discussed and reviewed with Attending Physician, Dr. Cochran <Lev Cochran - Last Filed: 09/15/18 11:39> CCU Objective - Vital Signs / Intake & Output Vital Signs (Last 4 hours): Vital Signs Temp Pulse Resp BP Pulse Ox 09/15/18 08:48 158/65 H 09/15/18 08:45 110 H 158/65 H 100 09/15/18 08:30 105 H 169/112 H 100 09/15/18 08:15 98 H 133/55 L 100 09/15/18 08:00 99.8 F H 104 H 147/73 100 09/15/18 07:45 101 H 166/81 H 100 09/15/18 07:38 30 H 100 Intake and Output (Last 8hrs): Intake & Output 09/14/18 09/15/18 09/15/18 22:59 06:59 14:59 Intake Total 580 Output Total 1575 Balance -995 Intake: Tube Feeding 480 Albumin 100 Output: Drainage 455 Colostomy 450 Right Abdomen 5 Urine 670 Urethral (Anthony) 670 Stool 450 - Medications Active Medications: Active Medications Generic Name Dose Route Start Last Admin Trade Name Freq PRN Reason Stop Dose Admin Acetylcysteine 4 ml 09/02/18 08:00 09/04/18 20:05 Acetylcysteine 20% IH Not Given [id number] KD Albumin Human 12.5 gm 09/13/18 11:10 Albumin Human 25% (12.5 Gm/50 Ml) IV 09/18/18 11:11 DAILY PRN LOW BP DURING HD X 3 DOSES Aspirin 81 mg 09/05/18 11:30 09/15/18 09:58 Aspirin Chewable PO 81 mg DAILY KD Administration Budesonide 0.5 mg 08/13/18 08:00 09/15/18 07:37 Pulmicort Respules IH 0.5 mg [id number] KD Administration Calcium Acetate 667 mg 09/10/18 10:00 09/15/18 09:59 Phoslo GT 667 mg TID KD Administration Dextrose 0 ml 09/05/18 15:56 Dextrose 50% Inj IV STAT PRN Hypoglycemia Protocol Protocol Emollient Ointment 5 gm 09/12/18 16:56 09/15/18 09:59 Vaseline Oint TOP 5 gm PRN PRN Administration Dry skin Famotidine 20 mg 08/21/18 10:00 09/15/18 09:59 Pepcid PO 20 mg DAILY KD Administration Furosemide 20 mg 09/13/18 14:00 09/15/18 08:48 Lasix IV 20 mg 0800,1400 KD Administration Heparin Sodium (Porcine) 5,000 units 09/08/18 14:00 09/15/18 06:52 Heparin SC 5,000 units Q8 KD Administration Protocol Heparin Sodium (Porcine) 5,000 units 09/10/18 11:57 Heparin IV POSTDI PRN CATH PROPH Hydralazine HCl 10 mg 09/15/18 10:07 Apresoline PO QID PRN for sbp >160 Insulin Human Regular 0 units 09/03/18 12:00 09/15/18 07:04 Humulin R Low SC Not Given Q6 KD Protocol Levalbuterol HCl 0.63 mg 08/18/18 08:00 09/15/18 07:37 Xopenex IH 0.63 mg [id number] KD Administration Morphine Sulfate 2 mg 09/15/18 09:29 09/15/18 09:59 Morphine IVP 2 mg Q4H PRN Administration Shortness of Breath Verapamil HCl 40 mg 09/08/18 18:15 09/15/18 02:00 Calan Tab PO 40 mg Q8H KD Administration Verapamil HCl 2.5 mg 09/11/18 09:42 Verapamil Inj IVP Q6H PRN for heart rate >130 - Patient Studies Lab Studies: Lab Studies 09/15/18 09/15/18 09/15/18 Range/Units 06:00 06:00 05:35 WBC 14.0 H (4.5-11.0) 10^3/uL RBC 3.92 (3.5-6.1) 10^6/uL Hgb 12.1 L D (14.0-18.0) g/dL Hct 36.1 L (42.0-52.0) % MCV 92.1 (80.0-105.0) fl MCH 30.9 (25.0-35.0) pg MCHC 33.5 (31.0-37.0) g/dl RDW 21.9 H (11.5-14.5) % Plt Count 162 (120.0-450.0) 10^3/uL MPV 11.4 H (7.0-11.0) fl pCO2 24 L (35-45) mm/Hg pO2 100.0 (80-100) mm/Hg HCO3 17.9 L (21-28) mmol/L ABG pH 7.48 H (7.35-7.45) ABG Total CO2 18.6 L (22-28) mmol.L ABG O2 Saturation 99.3 H (95-98) % ABG O2 Content 15.0 (15-23) ML/dl ABG Base Excess -4.3 L (-2.0-3.0) mmol/L ABG Hemoglobin 11.0 L (11.7-17.4) g/dL ABG Carboxyhemoglobin 2.2 H (0.5-1.5) % POC ABG HHb (Measured) 0.7 (0-5) % ABG Methemoglobin 1.1 (0.0-3.0) % ABG O2 Capacity 15.1 L (16-24) mL/dl Hgb O2 Saturation 96.0 (95.0-98.0) % FiO2 30.0 % Sodium 137 (132-148) mmol/L Potassium 3.8 (3.6-5.0) mmol/L Chloride 104 (98-107) mmol/L Carbon Dioxide 21 (21-33) mmol/L Anion Gap 16 (10-20) BUN 103 H (7-21) mg/dL Creatinine 1.9 H (0.8-1.5) mg/dl Est GFR ( Amer) 41 Est GFR (Non-Af Amer) 34 Random Glucose 134 H (70-110) mg/dL Calcium 7.9 L (8.4-10.5) mg/dL Total Bilirubin 9.4 H (0.2-1.3) mg/dL AST 109 H D (17-59) U/L ALT 114 H (7-56) U/L Alkaline Phosphatase 114 (38-126) U/L Total Protein 4.8 L (5.8-8.3) g/dL Albumin 2.6 L (3.0-4.8) g/dL Globulin 2.1 gm/dL Albumin/Globulin Ratio 1.2 (1.1-1.8) Laboratory Results - last 24 hr 09/15/18 09/15/18 09/15/18 05:35 06:00 06:00 WBC 14.0 H RBC 3.92 Hgb 12.1 L D Hct 36.1 L MCV 92.1 MCH 30.9 MCHC 33.5 RDW 21.9 H Plt Count 162 MPV 11.4 H pCO2 24 L pO2 100.0 HCO3 17.9 L ABG pH 7.48 H ABG Total CO2 18.6 L ABG O2 Saturation 99.3 H ABG O2 Content 15.0 ABG Base Excess -4.3 L ABG Hemoglobin 11.0 L ABG Carboxyhemoglobin 2.2 H POC ABG HHb (Measured) 0.7 ABG Methemoglobin 1.1 ABG O2 Capacity 15.1 L Hgb O2 Saturation 96.0 FiO2 30.0 Sodium 137 Potassium 3.8 Chloride 104 Carbon Dioxide 21 Anion Gap 16 BUN 103 H Creatinine 1.9 H Est GFR ( Amer) 41 Est GFR (Non-Af Amer) 34 Random Glucose 134 H Calcium 7.9 L Total Bilirubin 9.4 H AST 109 H D ALT 114 H Alkaline Phosphatase 114 Total Protein 4.8 L Albumin 2.6 L Globulin 2.1 Albumin/Globulin Ratio 1.2 Critical Care Progress Note - Nutrition Nutrition: Nutrition Category Date Time Status NPO Diet [DIET] Diets 09/02/18 Lunch Ordered Assessment/Plan - Assessment and Plan (Free Text) Plan: Patient seen and examined on rounds with resident, agree with note with following additions/exceptions: Patient is 82yo male with PMHx of severe COPD, HTN, 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 Cultures from 09/06 negative, on abx as per ID Currently not on HD, renal following Vent dependent, has failed multiple weaning trials. Yesterday was placed on CPAP trial, not able to tolerate it fully, placed back on PRVC. This morning patient unable to tolerate CPAP trial, tachpneic, tachcyardic, given Morphine IV. Patient afebrile BP stable, NOT on pressors. On full vent support, PRVC, FiO2 30%, PEEP 5, Peak pressures 12-16 Severe COPD HTN Respiratory failure s/p tracheostomy s/p ex-lap and ileal perforation VRE sepsis Renal failure/volume overload on HD Recommend: - cont with low tidal vol ventilation, duonebs PRN, goal sat 90%, weaning trials as tolerated, has failed multiple attempts - chest PT, frequent suctioning, Pulmicort, follow up Pulm - Antibiotics as per ID - BP control - follow up renal - monitor renal function - monitor platelets - follow up Palliative care - GI ppx - DVT ppx, HSQ - Monitor in MICU Awaiting Ltach placement Poor prognosis
--- NOTE | 2018-09-15 08:47 | PN ---
DATE: 09/14/2018 SUBJECTIVE: The patient is 82-year-old, seen and examined. He is awake, looked pale, getting nasogastric feeding. Tracheostomy in place, still on vent. PHYSICAL EXAMINATION: VITAL SIGNS: He is afebrile, pulse 94, respirations 20, blood pressure 115/45. LUNGS: Bilateral soft crackle at bases. He also has soft rattle in upper lung region. HEART: S1 and S2 audible. Irregular rate control. ABDOMEN: Soft. Colostomy functional. EXTREMITIES: Bilateral legs, no edema. LABORATORY DATA: WBC is 12.8, hemoglobin 10, hematocrit 29.7, platelets of 108. Chemistry: Sodium 135, potassium 3.5, chloride 103, CO2 of 21, BUN 94, creatinine 1.8, and blood sugar 167. Stool for Hemoccult is positive. ASSESSMENT: 1. Multiorgan failure. 2. Respiratory insufficiency, on ventilator. 3. Acute on chronic renal failure. 4. Chronic atrial fibrillation. 5. Seizure disorder. 6. Malnutrition. 7. Anemia, status post multiple transfusions. 8. Status post right hemicolectomy. 9. resection with end-to-end anastomosis. PLAN: Currently, the patient is off of antibiotics as per ID. He is getting Lasix undercover of albumin to keep his blood pressure within range. He is on DVT prophylaxis. He is on nebulizer treatment in the process of transferring to LTAC, but there is issue with insurance approval. Tri Fleming MD
--- NOTE | 2018-09-15 08:47 | PN ---
DATE: 09/15/2018 SUBJECTIVE: The patient remains on the ventilator. He is awake and alert this morning. He does remain very weak appearing. PHYSICAL EXAMINATION: VITAL SIGNS: Temperature 98.8, pulse 92, respirations 20/20, blood pressure 173/80. HEENT: Normocephalic. Positive tracheostomy. NECK: No JVD. CARDIOVASCULAR: Systolic ejection murmur at the lower left sternal border. Questionable S3 gallop. LUNGS: Decreased breath sounds at the bases (improved overall). Very minimal/less rhonchi. No wheezing. EXTREMITIES: Mild edema. No cyanosis. No clubbing. Calves are nontender to palpation. GI: Abdomen is soft, nontender and nondistended. Bowel sounds are positive. Abdomen is postoperative. SKIN: No acute rash. NEUROLOGIC: Exam limited at the present time. PERTINENT LABORATORY DATA: Chest x-ray was done this morning and reviewed. There is increased aeration noted to the left lower lobe. There are minimal basilar consolidations. The right lower lobe consolidation is much improved/decreased - compared to yesterday's film. Arterial blood gas was done on PRVC 20, tidal volume 400, FiO2 of 30%. Results are: PH 7.48, pCO2 24, pO2 of 100. IMPRESSION: 1. Recurrent left lung atelectasis. 2. Congestive heart failure. 3. Atrial fibrillation. 4. Intra-abdominal perforation. 5. Status post right hemicolectomy. 6. Advanced chronic obstructive pulmonary disease. 7. Anemia, thrombocytopenia. 8. Renal failure. PLAN: The patient remains in the ICU. He remains on the ventilator. He is awake and alert this morning. I did discuss the case with the night nurse at length. The night nurse stated that the patient had a good night. The night nurse also informed me that the patient may be transferred to an LTAC facility later this morning. I did review the chest x-ray as above. Findings are noted. The chest x-ray shows definite improvement. I have also reviewed the arterial blood gas. There is a mixed disorder present. The alveolar-arterial gradient has significantly decreased. On physical exam, there is certainly less bronchospasm noted. I will continue the current nebulizer treatments for now. The intravenous hydrocortisone has been discontinued by the ICU team. Inputs by Surgery, Infectious Disease, and Cardiology are also noted. The patient remains critically ill, with overall poor prognosis. Again, the patient may be transferred to an LTAC facility later today. I will discuss the above with the entire ICU team in the next few moments. I will also discuss the above with the attending physician later this morning. Rosalio Blevins MD MTDD
--- NOTE | 2018-09-15 08:58 | DS ---
CHIEF COMPLAINT ON ADMISSION: GI bleed with a history of chronic atrial fibrillation (rate averaging 80 to 90) and Eliquis therapy. He has been seen by several surgeons in the week prior to this admission and has been advised that his wish to have surgery is not recommended because of his concern and his intense wishes he is admitted for right hemicolectomy for removal of a bleeding tumor in the cecum (3.5 - villous adenoma). The patient's recent history this past year has been extremely active with a rapidly enlarging aortic aneurysm that was corrected with an endovascular graft and subsequently had a leak requiring another month of hospitalization to correct that. 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 The patient's significant past history atrial fibrillation was approximately 18 years earlier undergoing an abdominoperineal resection for rectal cancer and he has been cancer free since. His major complications of late have been ITP or idiopathic thrombocytopenic purpura with platelet counts anywhere from 40,000 to 90,000. He also has mild emphysema and hypertensive vascular disease and nephrolithiasis with bladder stones. The patient underwent the right hemicolectomy and incidentally had a hernia of his colostomy which was also repaired with multiple fixating sutures and the patient has done well postoperatively when complicated by a left mainstem bronchus occlusion requiring intubation and bronchoscopic suction in the intensive care unit. The secretions were extremely tenacious and required using the scope to suction out the secretions. Over the next 3 weeks, the patient has two more episodes of this predominately on the basis of the inability to cough or lack of effort and the difficulty of nasotracheal suction using Eliquis in this postoperative period. Complicating this with an episode of the small bowel perforation that appears related to an indwelling catheter in the right paracolic gutter and the patient underwent resection of this portion of the terminal ileum and repair and all 4 cultures taken from the peritoneal cavity at that procedure demonstrated VRE resistant to all antibiotics except for Zyvox which was not considered because of its significant effect on platelets and the ITP diagnosis. Over the next 3 weeks, the patient does well and is treated with hyperalimentation. Daptomycin is used twice daily and the VRE is cleared finally from the peritoneal fluid. The patient developed 1 week prior to this an episode of sepsis and the lines were not removed until next morning when the attending physician found the diagnosis of a temperature of 102.8. The only temperature the patient had during his entire hospital stay. These lines has been replaced and the patient was advised at this point to undergo a tracheostomy to allow access to the significant pulmonary secretions and allow the patient to remain anticoagulated with some safety by not going through the nasotracheal routine. With this last episode of sepsis lasting 4 to 5 days, the patient's renal function deteriorated significantly and the patient was given 3 bouts of dialysis in which the electrolytes were improved. His sodium was 150 and chloride 120. BUN had risen to 133 and his creatinine had risen is high as 1.9. Unfortunately, the dialysis could not be continued because with each episode, ultrafiltration could not be obtained due to hypotension, presumptively due to volume depletion and congestive overload. He did have clearing of his BUN and creatinine up until the day before discharge with a BUN was in the 86 range larisa to 94, creatinine 1.5 to 1.8. His albumin remains extremely low at 1.2 and at the present time he is being treated with a packed red blood cells, albumin and Lasix every 6 hours and nephro tube feeding at 1900 calories per day (1100 mL of Valium). Net balance is approximately 1 liter per day. His weight is 152 pounds. His abdominal drain had been draining between 70 and 100 mL has been removed and his dialysis catheter will also be removed and can be replaced as needed if necessary in the future. Medications have been adjusted and the Solu-Cortef which was on stress dose particularly for the sepsis and the pulmonary status has been tapered off. The pulmonary ventilator has been no longer used on September 14 and the patient remains on 8 cm positive and airway pressure with tracheal cuff . Medications include Mucomyst every 6 hours, albumin, Lasix, aspirin 81 mg, Pepcid 20 mg daily. Blood pressures has been maintained with pressors up until September 13 and the patient is off all blood pressure medications. He is on Xopenex. He is getting verapamil for control of the heart rate and has a mild decubitus from the sacral area. The patient is awake, responsive, communicative. He has a which is not fenestrated and is unable to at this time, but is fully cognitive of what is happening and has been apprised of his condition and plans for a transfer and he is in agreement with this and he has been asking for this discharge to the LTACH for the past 3-1/2 weeks. This patient will be transferred hopefully on September 15 and will be placed in the long-term care which is possibly to extend between 3 and 4 weeks and the patient may need to have his hyperalimentation increased pending his renal function status. Right now, he is on 1900 calories a day through the NG tube which is placed through the nose via Dobhoff tube. It was not considered advisable to place a percutaneous gastrostomy or mini laparotomy with the potential risks of more anesthesia in this patient. The patient and his family had been encouraging transferred to the LTACH and/or fully in agreement with this plan at this point and this physician hopes to remain in touch with the attending staff and offer any help needed during this time and care for this patient. The office telephone is [phone] and I can be reached night or day by pressing gas shovel operator. This dictation will be electronically signed without being read. Rocael Du MD
--- NOTE | 2018-09-15 09:12 | RAD ---
Date of service: 09/15/2018 HISTORY: f/u COMPARISON: 09/14/2018 FINDINGS: LUNGS: There is an infiltrate at the left lung base that obscures the diaphragm. There is improvement in bibasilar infiltrates and effusions. Central lines and tubes are unchanged PLEURA: No significant pleural effusion identified, no pneumothorax apparent. CARDIOVASCULAR: No aortic atherosclerotic calcification present. Normal cardiac size. No pulmonary vascular congestion. OSSEOUS STRUCTURES: No significant abnormalities. VISUALIZED UPPER ABDOMEN: Normal. OTHER FINDINGS: None. IMPRESSION: There is an infiltrate at the left lung base that obscures the diaphragm. There is improvement in bibasilar infiltrates and effusions. Central lines and tubes are unchanged
[2018-09-15] MEDS ORDERED: Midazolam 2 MG/2 ML VIAL IVP ONE (09:57)
[2018-09-15] MEDS: Morphine 2 mg/ml ISec IVP PRN ×2 (09:59→14:29)
[2018-09-15] MEDS: Petrolatum Oint Foilpak (5 gm) TOP PRN (09:59)
--- NOTE | 2018-09-15 10:48 | CP.PCM.PN ---
<Tito Doan - Last Filed: 09/15/18 13:15> Subjective - Date & Time of Evaluation Date of Evaluation: 09/15/18 Time of Evaluation: 10:45 - Subjective Subjective: Infectious disease progress note for Dr. Quispe/Dr. Garvin service - Carlton Doan PGY3 Patient seen and examined at bedside this morning. No reported overnight events. Pending LTACH placement. RUSSELL drain removed. Patient is presently off sedation and pressors. Antibiotics have been discontinued after having completed 10days of meropenem and 7 days of daptomycin. 12point ROS limited due to patient status. Objective - Vital Signs/Intake and Output Vital Signs (last 24 hours): Temp Pulse Resp BP Pulse Ox 99.8 F H 110 H 30 H 158/65 H 100 09/15/18 08:00 09/15/18 08:45 09/15/18 07:38 09/15/18 08:48 09/15/18 08:45 - Medications Medications: Current Medications Acetylcysteine (Acetylcysteine 20%) 4 ml IH [id number] [facility] Last Admin: 09/04/18 20:05 Dose: Not Given Albumin Human (Albumin Human 25% (12.5 Gm/50 Ml)) 12.5 gm IV DAILY PRN PRN Reason: LOW BP DURING HD X 3 DOSES Stop: 09/18/18 11:11 Aspirin (Aspirin Chewable) 81 mg PO DAILY [facility] Last Admin: 09/15/18 09:58 Dose: 81 mg Budesonide (Pulmicort Respules) 0.5 mg IH [id number] [facility] Last Admin: 09/15/18 07:37 Dose: 0.5 mg Calcium Acetate (Phoslo) 667 mg GT TID [facility] Last Admin: 09/15/18 09:59 Dose: 667 mg Dextrose (Dextrose 50% Inj) 0 ml IV STAT PRN; Protocol PRN Reason: Hypoglycemia Protocol Emollient Ointment (Vaseline Oint) 5 gm TOP PRN PRN PRN Reason: Dry skin Last Admin: 09/15/18 09:59 Dose: 5 gm Famotidine (Pepcid) 20 mg PO DAILY [facility] Last Admin: 09/15/18 09:59 Dose: 20 mg Furosemide (Lasix) 20 mg IV 0800,1400 [facility] Last Admin: 09/15/18 08:48 Dose: 20 mg Heparin Sodium (Porcine) (Heparin) 5,000 units SC Q8 KD; Protocol Last Admin: 09/15/18 06:52 Dose: 5,000 units Heparin Sodium (Porcine) (Heparin) 5,000 units IV POSTDI PRN PRN Reason: CATH PROPH Hydralazine HCl (Apresoline) 10 mg PO QID PRN PRN Reason: for sbp >160 Insulin Human Regular (Humulin R Low) 0 units SC Q6 KD; Protocol Last Admin: 09/15/18 07:04 Dose: Not Given Levalbuterol HCl (Xopenex) 0.63 mg IH [id number] KD Last Admin: 09/15/18 07:37 Dose: 0.63 mg Morphine Sulfate (Morphine) 2 mg IVP Q4H PRN PRN Reason: Shortness of Breath Last Admin: 09/15/18 09:59 Dose: 2 mg Verapamil HCl (Calan Tab) 40 mg PO Q8H KD Last Admin: 09/15/18 02:00 Dose: 40 mg Verapamil HCl (Verapamil Inj) 2.5 mg IVP Q6H PRN PRN Reason: for heart rate >130 - Labs Labs: 09/15/18 06:00 09/15/18 06:00 PT 15.1 SECONDS (9.4-12.5) H 09/06/18 05:01 INR 1.31 09/06/18 05:01 APTT 31.7 Seconds (25.1-36.5) 09/06/18 05:01 - Constitutional Appears: Chronically Ill - Head Exam Head Exam: ATRAUMATIC, NORMOCEPHALIC - Eye Exam Eye Exam: EOMI, PERRL - ENT Exam ENT Exam: Mucous Membranes Moist - Cardiovascular Exam Cardiovascular Exam: +S1, +S2. absent: Clicks, Gallop, Rubs - GI/Abdominal Exam GI & Abdominal Exam: Soft. absent: Distended, Firm, Guarding, Rigid, Tenderness Additional comments: colostomy site clean/dry/intact - Neurological Exam Neurological Exam: Alert, Awake - Skin Skin Exam: Dry, Intact, Normal Color, Warm Assessment and Plan - Assessment and Plan (Free Text) Plan: Patient is a 82yo male with history of rectal adenocarcinoma s/p hemicolectomy admitted to the icu with VDRF secondary to sepsis due to perforated ileum S/P ex-lap and resection of terminal ileum and primary anastomosis 1. severe sepsis secondary perforated ileum s/p ex-lap 2. ventilator-dependent respiratory failure s/p tracheostomy 3. VRE and C. tropicalis wound cultures 4. r/o hcap and line-related infection 5. Rectal Cancer 6. Atrial fibrillation 7. CAD 8. CHF, chronic 9. GERD -Completed 10day course of meropenem and 7day course of daptomycin; presently being monitored clinically off antibiotics -Previously received micamin given risk for fungal infections -Repeat blood cultures negative -Lines previously removed/replaced -cdiff negative -CXR reviewed -Continue current management as per ICU/Surgical teams -Overall prognosis remains poor Patient seen and case discussed/reviewed with attending, Dr. Quispe <Barry Quispe - Last Filed: 09/15/18 19:19> Objective - Vital Signs/Intake and Output Vital Signs (last 24 hours): Temp Pulse Resp BP Pulse Ox 100.2 F H 111 H 30 H 166/74 H 80 L 09/15/18 12:00 09/15/18 14:00 09/15/18 07:38 09/15/18 14:00 09/15/18 12:30 - Labs Labs: 09/15/18 06:00 09/15/18 06:00 PT 15.1 SECONDS (9.4-12.5) H 09/06/18 05:01 INR 1.31 09/06/18 05:01 APTT 31.7 Seconds (25.1-36.5) 09/06/18 05:01 Assessment and Plan - Assessment and Plan (Free Text) Plan: Infectious diseases Attending Physician Attestation Patient seen and examined, discussed with clinical laboratory medical director. I have reviewed the patient's history of present illness, past medical, social, personal and family histories, pertinent physical exam findings, course so far in this hospital admission, pertinent laboratory and imaging results. I agree with the above findings, assessment and plan. In addition, will continue to monitor this patient who is S/P ex-lap for perforated ileum with sepsis S/P resection and anastomosis, grew VRE, while the patient is in the hospital. Overall prognosis is poor. Discussed with Dr. Du and Dr. Fleming.
--- NOTE | 2018-09-15 11:20 | CP.PCM.PCO ---
Physician Communication Note - Physician Communication Note Physician Communication Note: Wean failure(#rd)-PRVC support on/LTACH RX?
[2018-09-15 12:38] VITALS: PULSE 111; O2SAT 80
[2018-09-15 12:39] VITALS: TEMP 100.2
--- NOTE | 2018-09-15 12:59 | PN ---
DATE: 09/14/2018 SUBJECTIVE: This 82-year-old male was examined at his bedside in the critical care unit at the [facility] on the morning of Friday, September 14, 2018. Present for this interview was nurse, Kayleen Ward, registered nurse. The patient's eyes remained open. He is responsive to verbal questioning, he does nod appropriately, but he remains weak and deconditioned and unable to speak due to tracheostomy and ventilatory support. There been no reports of fever, chills, chest pain and he is appears comfortable on the ventilator. PHYSICAL EXAMINATION: VITAL SIGNS: He was in atrial fibrillation rhythm on quality assurance monitor body. Temperature was 97.8, respirations 26, pulse 100, blood pressure 134/52 and pulse ox 99% on 30% FIO2. HEENT: Head, normocephalic and atraumatic. NECK: Supple. HEART: Irregular S1 and S2. LUNGS: With occasional rhonchi. ABDOMEN: Soft. No rebound, no guarding. EXTREMITIES: 1+ edema. SKIN: No ulcers on ankles. VASCULAR: Legs warm to touch. PSYCHOLOGIC: Does nod appropriately to questioning. NEUROLOGIC: Marked deconditioning. LABORATORY DATA: White count 12,800, hemoglobin 10, hematocrit 29.7 and platelets 108,000. Sodium 135, potassium 3.5, chloride 103, bicarb 21, BUN 94, creatinine 1.8, random blood sugar is 167, calcium is 7.5, phosphorous 5.6, magnesium 2.2 and albumin 2.4. Stool for occult blood was positive on September 13. Digoxin level is 2.0. Previous hepatitis A, B and C serologies are negative. IMPRESSION: This is an 82-year-old male with [id number] renal insufficiency and prerenal azotemia in the setting of catabolic state and IV steroid use for exacerbation of chronic obstructive pulmonary disease and respiratory failure. With comorbidities of hypoalbuminemia, chronic atrial fibrillation, previous hypotension now resolved, previous sepsis now improved, hyperglycemia, peptic ulcer disease with gastroesophageal reflux disease, hyperphosphatemia, anemia of chronic disease, failure to thrive. PLAN: At present is to continue Xopenex, Pulmicort, PhosLo, Pepcid, IV albumin and IV Lasix, insulin regular low-dose coverage a.c. meals and at bedtime, subcutaneous heparin for DVT prophylaxis, Calan, Ecotrin, p.r.n., hydralazine, Peg feeds with water flushes, serial labs. Bedside physical therapy, skin care, pulmonary toiletry, aspiration precautions, strict Is and Os. With Social Service making arrangements for probable LTAC referral for continued long-term care therapy. The patient's clinical status remains stable. Overall prognosis remains poor. Based on his clinical progress in the next 24 hours, decision will be made regarding possible removal of his dialysis femoral catheter and I have discussed tapering steroids given azotemia with Dr. Lev Cochran, supervisor evaporator. Case was reviewed with Dr. Rocael Du as well. Sara Ramirez MD MTDD
[2018-09-15 14:33] VITALS: BP 166/74
--- NOTE | 2018-09-15 14:33 | PN ---
DATE: 09/15/2018 SUBJECTIVE: The patient is an 82-year-old, seen and examined, has respiratory distress, looks pale, on nasogastric feeding. He is scheduled to be transferred to LTAC. PHYSICAL EXAMINATION GENERAL: Looks pale. VITAL SIGNS: He is afebrile, pulse 107, respirations 18, blood pressure 134/59. LUNGS: Bilateral fair airflow. Poor respiratory effort. ABDOMEN: Soft. Colostomy is functional. EXTREMITIES: Bilateral legs, no edema. LABORATORY DATA: WBC is 14, hemoglobin 12, hematocrit 36, platelets 162. Chemistry; sodium 137, potassium 3.8, chloride 104, CO2 of 21, BUN 103, creatinine 1.9, blood sugar of 134. AST 109, ALT 114. ASSESSMENT: 1. Multiorgan failure. 2. Acute on chronic renal failure. 3. Respiratory failure. 4. Status post laparotomy and right hemicolectomy and ileal resection followed by end-to-end anastomosis. PLAN: So, plan is the patient will be transferred to the LTAC and he needs to be on vent. He is also . He is on nasogastric feeding. He has tracheostomy. Prognosis is poor. He will be transferred to LTAC today. Tri Fleming MD
--- NOTE | 2018-09-15 14:33 | PN ---
DATE: 09/15/2018 REASON FOR CONSULTATION: Followup, cardiac evaluation, followup for atrial fibrillation status post tracheostomy, intubated through the trach, status post abdominal surgery, multiorgan dysfunction, hypoproteinemia, severe protein-calorie malnutrition. SUBJECTIVE: The patient responds to verbal stimuli, not in apparent distress, intubated through the PEG and being fed through the Dobhoff. PHYSICAL EXAMINATION: VITAL SIGNS: As follows, temperature is afebrile, heart rate of 105 and blood pressure 115/65. HEENT: PERRLA intact. NECK: Supple. No carotid bruit or thyromegaly. CHEST: Clear to auscultation. HEART: S1 and S2, regular. ABDOMEN: Soft. EXTREMITIES: Clubbing and cyanosis negative. LABORATORY DATA: Blood workup as follows: WBC 14, hemoglobin 12.1, hematocrit 36.1, platelet count 162. Chemistries show sodium 130, potassium 3.7, chloride 104, carbon dioxide 21, anion gap of 16, BUN 103, creatinine 1.2. IMPRESSION: An 82-year-old male with a past medical history significant for colostomy in the past, AAA endovascular repair, history of villous adenoma, status post right colectomy and resection of adenoma. Hospital course is complicated by multiple type atelectasis for the perforation of viscus requiring reexploration of the abdomen. Now, the patient went into multiorgan dysfunction, prolonged intubation, status post tracheostomy, went into renal failure, requiring dialysis, but now the patient cannot tolerate dialysis. Now being managed medically with gentle Lasix and IV albumin. The patient has severe protein-calorie malnutrition, which is improving through IV albumin. Avoid nephrotoxic medication, will be on hydralazine for high blood pressure, interim continue DVT prophylaxis, verapamil, IV albumin and Lasix. The patient is not a candidate for nursing home anticoagulation because he starts oozing from the surgical site and drainage. We will follow with you. Thank you Dr. Du for providing us the opportunity in taking care of Roshan Mariahmarnie. Gladis Greenfield MD
--- NOTE | 2018-09-15 14:33 | PN ---
DATE: 09/15/2018 SUBJECTIVE: Today is Saturday September 15, 2018. This 82-year-old male is being readied for transportation to [facility] this afternoon. He remains weak and deconditioned with multiple medical problems as previously outlined, but has been able to be removed from dialytic therapy and is now being managed with IV albumin and Lasix with urinary output showing slight negative fluid balances for the past 3 days, September 13, a negative 420 mL fluid balance and September 14, a negative 1275 mL of fluid balance. PHYSICAL EXAMINATION: VITAL SIGNS: The patient has a temperature of 99.8, pulse 101, blood pressure 147/73 and pulse ox 100% on 30% FIO2. Physical exam is unchanged. LABORATORY DATA: White count 14,000, hemoglobin 12.1, hematocrit 36.1 and platelets 162,000. Sodium 137, potassium 3.8, chloride 104, bicarb 21, BUN 103, creatinine 1.9 and random blood sugar 134. Estimated GFR 34 mL per minute. IMPRESSION: This is an 82-year-old male with [id number] renal insufficiency, prerenal azotemia, now with steroids, having been discontinued which were contributing to elevated BUN, being fluid managed with IV Lasix and IV albumin as well as tube feeds of Nepro and gentle water flushes with comorbidities as outlined previously. The patient will require long-term care in acute rehab given his multiple medical comorbidities. I will ask the nursing staff to ask Dr. Du if he wishes to have his femoral [place] catheter removed prior to discharge and the patient will require aggressive supportive therapy for multiple comorbidities and I will be happy to assist in the care of this patient in the future should this become necessary on a renal basis. All of the above was discussed with intensive care nursing. Overall prognosis remains poor but stable at present. Sara Ramirez MD
== END 2018-09-15 16:44 | DRG 3 ==
LOC: ED 06:02 → ERH 07:03 → 5RSO 08:30 → 2RNO 17:29 → ICU 08-02 20:15 → CCU 08-04 11:12 → 2RNO 08-20 20:12 → ICU 09-02 08:24
PROVIDERS: ADMIT Surgery; ATTEND Surgery
PROC: 0DNF0ZZ Release Right Large Intestine, Open Approach (ICD-10-PCS; 2018-07-30)
PROC: 0WQF0ZZ Repair Abdominal Wall, Open Approach (ICD-10-PCS; 2018-07-30)
PROC: 6A550Z2 Pheresis of Platelets, Single (ICD-10-PCS; 2018-07-30)
PROC: 0DTF0ZZ Resection of Right Large Intestine, Open Approach (ICD-10-PCS; principal; 2018-07-30 10:40)
PROC: 30233N1 Transfusion of Nonautologous Red Blood Cells into Peripheral Vein, Percutaneous Approach (ICD-10-PCS; 2018-08-01)
PROC: 0B9J8ZX Drainage of Left Lower Lung Lobe, Via Natural or Artificial Opening Endoscopic, Diagnostic (ICD-10-PCS; 2018-08-03)
PROC: 0BH17EZ Insertion of Endotracheal Airway into Trachea, Via Natural or Artificial Opening (ICD-10-PCS; 2018-08-03)
PROC: 5A1935Z Respiratory Ventilation, Less than 24 Consecutive Hours (ICD-10-PCS; 2018-08-03)
PROC: 0WJP0ZZ Inspection of Gastrointestinal Tract, Open Approach (ICD-10-PCS; 2018-08-11)
PROC: 0DBB0ZZ Excision of Ileum, Open Approach (ICD-10-PCS; 2018-08-11)
PROC: 0DN80ZZ Release Small Intestine, Open Approach (ICD-10-PCS; 2018-08-11)
PROC: 05HM33Z Insertion of Infusion Device into Right Internal Jugular Vein, Percutaneous Approach (ICD-10-PCS; 2018-08-11)
PROC: B543ZZA Ultrasonography of Right Jugular Veins, Guidance (ICD-10-PCS; 2018-08-11)
PROC: 6A551Z2 Pheresis of Platelets, Multiple (ICD-10-PCS; 2018-08-11)
PROC: 02HV33Z Insertion of Infusion Device into Superior Vena Cava, Percutaneous Approach (ICD-10-PCS; 2018-08-19)
PROC: B548ZZA Ultrasonography of Superior Vena Cava, Guidance (ICD-10-PCS; 2018-08-19)
PROC: 02HV33Z Insertion of Infusion Device into Superior Vena Cava, Percutaneous Approach (ICD-10-PCS; 2018-08-31)
PROC: B548ZZA Ultrasonography of Superior Vena Cava, Guidance (ICD-10-PCS; 2018-08-31)
PROC: 5A1955Z Respiratory Ventilation, Greater than 96 Consecutive Hours (ICD-10-PCS; 2018-09-02)
PROC: 0BH18EZ Insertion of Endotracheal Airway into Trachea, Via Natural or Artificial Opening Endoscopic (ICD-10-PCS; 2018-09-02)
PROC: 0BC78ZZ Extirpation of Matter from Left Main Bronchus, Via Natural or Artificial Opening Endoscopic (ICD-10-PCS; 2018-09-02)
PROC: 0B978ZZ Drainage of Left Main Bronchus, Via Natural or Artificial Opening Endoscopic (ICD-10-PCS; 2018-09-02)
PROC: 05HM33Z Insertion of Infusion Device into Right Internal Jugular Vein, Percutaneous Approach (ICD-10-PCS; 2018-09-07)
PROC: B543ZZA Ultrasonography of Right Jugular Veins, Guidance (ICD-10-PCS; 2018-09-07)
PROC: 0B110F4 Bypass Trachea to Cutaneous with Tracheostomy Device, Open Approach (ICD-10-PCS; 2018-09-07 11:30)
PROC: 5A1D70Z Performance of Urinary Filtration, Intermittent, Less than 6 Hours Per Day (ICD-10-PCS; 2018-09-09)
PROC: 06HY33Z Insertion of Infusion Device into Lower Vein, Percutaneous Approach (ICD-10-PCS; 2018-09-09)
PROC: B54BZZA Ultrasonography of Right Lower Extremity Veins, Guidance (ICD-10-PCS; 2018-09-09)
PROC: 5A1D70Z Performance of Urinary Filtration, Intermittent, Less than 6 Hours Per Day (ICD-10-PCS; 2018-09-10)
PROC: 5A1D70Z Performance of Urinary Filtration, Intermittent, Less than 6 Hours Per Day (ICD-10-PCS; 2018-09-11)
PROC: 5A1D70Z Performance of Urinary Filtration, Intermittent, Less than 6 Hours Per Day (ICD-10-PCS; 2018-09-12)
DX: C20 Malignant neoplasm of rectum (principal); K65.1 Peritoneal abscess; A41.9 Sepsis, unspecified organism; E43 Unspecified severe protein-calorie malnutrition; G93.41 Metabolic encephalopathy; J18.1 Lobar pneumonia, unspecified organism; J96.01 Acute respiratory failure with hypoxia; J96.02 Acute respiratory failure with hypercapnia; N17.0 Acute kidney failure with tubular necrosis; R57.8 Other shock; R65.21 Severe sepsis with septic shock; T80.211A Bloodstream infection due to central venous catheter, initial encounter; K57.80 Diverticulitis of intestine, part unspecified, with perforation and abscess without bleeding; D61.818 Other pancytopenia; D69.3 Immune thrombocytopenic purpura; E87.0 Hyperosmolality and hypernatremia; E87.2 Acidosis; I13.0 Hypertensive heart and chronic kidney disease with heart failure and stage 1 through stage 4 chronic kidney disease, or unspecified chronic kidney disease; I42.1 Obstructive hypertrophic cardiomyopathy; I48.92 Unspecified atrial flutter; I50.22 Chronic systolic (congestive) heart failure; I47.2 Ventricular tachycardia; J44.0 Chronic obstructive pulmonary disease with (acute) lower respiratory infection; J44.1 Chronic obstructive pulmonary disease with (acute) exacerbation; J98.11 Atelectasis; K56.609 Unspecified intestinal obstruction, unspecified as to partial versus complete obstruction; R17 Unspecified jaundice; R64 Cachexia; T17.590A Other foreign object in bronchus causing asphyxiation, initial encounter; T17.890A Other foreign object in other parts of respiratory tract causing asphyxiation, initial encounter; T82.524A Displacement of infusion catheter, initial encounter; Z99.11 Dependence on respirator [ventilator] status; D12.2 Benign neoplasm of ascending colon; D12.0 Benign neoplasm of cecum; D50.9 Iron deficiency anemia, unspecified; D63.8 Anemia in other chronic diseases classified elsewhere; E11.22 Type 2 diabetes mellitus with diabetic chronic kidney disease; E11.65 Type 2 diabetes mellitus with hyperglycemia; E77.8 Other disorders of glycoprotein metabolism; E78.5 Hyperlipidemia, unspecified; E83.39 Other disorders of phosphorus metabolism; E83.51 Hypocalcemia; E86.0 Dehydration; E87.5 Hyperkalemia; F32.89 Other specified depressive episodes; F41.9 Anxiety disorder, unspecified; G40.909 Epilepsy, unspecified, not intractable, without status epilepticus; I08.1 Rheumatic disorders of both mitral and tricuspid valves; I25.2 Old myocardial infarction; I25.10 Atherosclerotic heart disease of native coronary artery without angina pectoris; I27.20 Pulmonary hypertension, unspecified; I37.1 Nonrheumatic pulmonary valve insufficiency; I48.2 Chronic atrial fibrillation; B95.2 Enterococcus as the cause of diseases classified elsewhere; I71.4 Abdominal aortic aneurysm, without rupture; I95.3 Hypotension of hemodialysis; J98.4 Other disorders of lung; K21.9 Gastro-esophageal reflux disease without esophagitis; K22.5 Diverticulum of esophagus, acquired; K27.9 Peptic ulcer, site unspecified, unspecified as acute or chronic, without hemorrhage or perforation; K29.60 Other gastritis without bleeding; K43.5 Parastomal hernia without obstruction or gangrene; K52.9 Noninfective gastroenteritis and colitis, unspecified; K66.0 Peritoneal adhesions (postprocedural) (postinfection); N18.9 Chronic kidney disease, unspecified; N20.0 Calculus of kidney; N21.0 Calculus in bladder; R62.7 Adult failure to thrive; R93.89 Abnormal findings on diagnostic imaging of other specified body structures; S00.12XA Contusion of left eyelid and periocular area, initial encounter; T36.8X5A Adverse effect of other systemic antibiotics, initial encounter; T38.0X5A Adverse effect of glucocorticoids and synthetic analogues, initial encounter; Y71.2 Prosthetic and other implants, materials and accessory cardiovascular devices associated with adverse incidents; Y84.8 Other medical procedures as the cause of abnormal reaction of the patient, or of later complication, without mention of misadventure at the time of the procedure; Y95 Nosocomial condition; Z16.21 Resistance to vancomycin; Z51.5 Encounter for palliative care; Z74.01 Bed confinement status; Z78.1 Physical restraint status; Z78.9 Other specified health status; Z79.01 Long term (current) use of anticoagulants; Z79.4 Long term (current) use of insulin; Z99.2 Dependence on renal dialysis; Z79.82 Long term (current) use of aspirin; Z85.820 Personal history of malignant melanoma of skin; Z86.73 Personal history of transient ischemic attack (TIA), and cerebral infarction without residual deficits; Z86.79 Personal history of other diseases of the circulatory system; Z87.01 Personal history of pneumonia (recurrent); Z87.891 Personal history of nicotine dependence; Z90.5 Acquired absence of kidney; Z91.19 Patient's noncompliance with other medical treatment and regimen; Z91.81 History of falling